=== PATIENT | male | born 1955 ===

== ENCOUNTER 2020-08-29 10:15 | Emergency (ER) | payer BC, SELFPAY ==
[2020-08-29 10:26] VITALS: BP 154/94; PULSE 87; RESP 20; TEMP 36.9; O2SAT 97; BMI 36.3
--- NOTE | 2020-08-29 10:36 | XR_ITS ---
EXAMINATION: XR CHEST CLINICAL INFORMATION: Chest pain, shortness of breath COMPARISON: 05/17/2020 TECHNIQUE: Frontal view of the chest was obtained. FINDINGS: The cardiomediastinal silhouette is within normal limits. The lungs are well expanded. There is no focal consolidation, edema, or effusion is seen. No pneumothorax. No acute osseous abnormality. XR/XR chest 1V IMPRESSION: No evidence of acute cardiopulmonary process.
--- NOTE | 2020-08-29 10:36 | ECG_ITS ---
Test Reason : CHEST DISCOMFORT Blood Pressure : / mmHG Vent. Rate : 088 BPM Atrial Rate : 088 BPM P-R Int : 170 ms QRS Dur : 086 ms QT Int : 360 ms P-R-T Axes : 047 -02 055 degrees QTc Int : 435 ms Normal sinus rhythm Normal ECG When compared with ECG of 17-MAY-2020 17:03, No significant change was found Referred By: Avis Dominguez Electronically Signed By:CHRISTIE WILLETT MD
--- NOTE | 2020-08-29 10:37 | ED.GENADULT ---
HPI - General Adult General Chief complaint: General Medical Stated complaint: BLOOD PRESSURE HIGH,CHEST DISCOMFORT Time Seen by Provider: 08/29/20 10:30 Source: patient Mode of arrival: ambulatory History of Present Illness HPI narrative: 64-year-old male with a past medical history of GERD, HTN, PTSD, seizures presenting to ED complaining mild chest discomfort, puffy/watery eyes, ear ringing, and elevated BP at home x2 days. Reports BP was in the 160s, denies taking hypertensive medications at home. Also reports mild SOB. Denies headache, visual changes/blurry vision, nausea/vomiting, dizziness, headache Onset (ago): day(s) Related Data Home Medications Medication Instructions Recorded Confirmed Aspirin Child 08/29/20 Colace 08/29/20 Florastor 08/29/20 multivitamin 08/29/20 omeprazole 08/29/20 simvastatin tab PO 08/29/20 Allergies Allergy/AdvReac Type Severity Reaction Status Date / Time fentanyl [FENTANYL] Allergy Severe CARDIAC Unverified 07/05/20 18:24 ARREST levofloxacin [From LEVAQUIN] Allergy Severe ITCHING Unverified 07/05/20 18:24 oxycodone [From PERCOCET] Allergy Severe HIVES Unverified 07/05/20 18:24 divalproex sodium Allergy Unknown ANAPHYLAXIS Unverified 07/05/20 18:24 [From DEPAKOTE] fluconazole [From DIFLUCAN] Allergy Unknown UNKNOWN Unverified 07/05/20 18:24 fosphenytoin [FOSPHENYTOIN] Allergy Unknown UNKNOWN Unverified 07/05/20 18:24 hydrocodone Allergy Unknown Uncoded 06/21/20 00:00 narcotics Allergy Unknown Uncoded 06/21/20 00:00 oxycodone Allergy Unknown Uncoded 06/21/20 00:00 percocet Allergy Unknown Uncoded 06/21/20 00:00 Review of Systems Review of Systems: Constitutional: No Weight loss, No Fever, No Chills ENT/Mouth: No Hearing loss, No Ear Pain, Nasal Congestion, No Sinus Pain, No Hoarseness, No sore throat, +Rhinorrhea, No Swallowing Difficulty Eyes: No Eye Pain, No Swelling, No Redness, +puffy/watery eyes, No Vision Changes Cardiovascular: +Chest Pain,+SOB, No Edema, No Palpitations Respiratory: + Cough, No Sputum, No Wheezing Gastrointestinal: No Nausea, No Vomiting, No Diarrhea, No Constipation, No Abdominal pain Musculoskeletal: No joint pain, No Myalgias, No Joint Swelling Skin: No Skin Lesions, No rash Neuro: No Weakness, No Numbness,No Dizziness, No Headache Yes all other systems are reviewed and are negative Neurologic: Denies Sensory deficit (Neuro) [facility] Past Medical History Attestation statement: The following information was validated with the patient. Medical History (Updated 08/29/20 @ 12:19 by SABINO Sethi) Diverticulitis GERD (gastroesophageal reflux disease) Hypertension PTSD (post-traumatic stress disorder) Seizures Social History Social History Smoked in Last 30 Days: No Use of substances other than those prescribed or required for medical reasons: No Advance Directives: No Advance Directives Information Provided: Yes Physical Exam Vital Signs: Vital Signs: Last Vital Signs Temp 98.4 F 08/29/20 10:26 Pulse 74 08/29/20 12:03 Resp 20 08/29/20 12:03 BP 114/74 08/29/20 12:03 Pulse Ox 95 08/29/20 12:03 Body Mass Index 36.3 Const: General: cooperative and healthy appearing Orientation/consciousness: patient oriented x3 Limitations: no limitations HENMT: Head: Yes normal to inspection Ears: hearing grossly normal bilaterally, external ears normal and TM's normal bilaterally General nose exam: Normal external nose present Face and sinus: Yes normal facial exam Mouth: Normal oral and palatal mucosa present and no drooling Throat: Yes posterior oropharynx normal and Yes uvula midline Eyes: General: appearance normal, both eyes and all related structures Periorbital: periorbital findings normal Eyelids: Yes eyelids normal Conjunctivae: conjunctivae normal Sclerae: sclerae normal Corneas: corneas normal Pupils: Equal, round and reactive pupils present EOM: EOMs intact bilaterally Neck: Neck: Yes normal visual inspection and Yes no meningeal signs Resp: Effort & Inspection: normal respiratory effort Auscultation: crackles (Bibasilar) Cardio: Rate: regular rate Heart sounds: S1 normal heart sound present and S2 normal heart sound present GI: Inspection: Yes normal to inspection Palpation (GI): Soft to palpation, nontender, no guarding and not rigid Skin: Rashes: no rashes Wounds: no wounds Neuro: General: patient oriented x3, tone normal, moves all extremities, no meningeal signs, no focal motor deficits and CN's II-XI intact bilaterally Cranial nerves: Yes Equal, round and reactive pupils present Gait exam (Neuro): Normal gait present Motor exam (neuro): 5/5 motor strength present throughout Sensory Exam: No Sensory deficit (Neuro) Extrem: General: Yes normal to inspection Course Course Course Narrative: -labs unremarkable, troponin negative -CXR unremarkable Repeat blood pressure in the ED 114/74 Labs/imaging results discussed with patient including worrisome signs and symptoms and strict return precautions. Patient is to follow-up with PCP. Verbalized understanding feel safe for discharge home Medical Decision Making MDM Narrative Medical decision making narrative: 64-year-old male with a past medical history of GERD, HTN, PTSD, seizures presenting to ED complaining mild chest discomfort, puffy/watery eyes, ear ringing, and elevated BP at home x2 days. On exam BP 154/94, NAD/nontoxic appearing, no focal neuro deficits, lungs with bibasilar crackles, TMs wnl. Concern for viral syndrome/allergies/COVID-19 vs ACS. Low concern for PE, pneumonia, or hypertensive urgency/emergency Plan: EKG, labs, CXR, reassess Lab Data Result diagrams: 08/29/20 11:11 08/29/20 11:11 Labs: Lab Results 08/29/20 08/29/20 08/29/20 Range/Units 11:11 11:11 11:11 WBC 9.5 (4.8-10.8) X10*3/uL RBC 4.81 (4.60-5.80) X10*6/uL Hgb 15.2 (14.0-18.0) g/dl Hct 45.9 (42-52) % MCV 95.4 (80-98) fL MCH 31.6 (27.0-33.0) pg MCHC 33.1 (31.0-36.0) g/dl RDW 13.1 (11.0-16.0) % Plt Count 211 (160-400) X10*3/uL MPV 9.1 L (9.4-12.4) fL Immature Gran % (Auto) 0.4 (0.0-0.4) % Neut % (Auto) 50.8 (45-73) % Lymph % (Auto) 38.3 (20-40) % [place] % (Auto) 7.0 (2-11) % Eos % (Auto) 3.0 (0-4) % Baso % (Auto) 0.5 (0-2) % Lymph # (Auto) 3.6 (1.2-4.9) X10*3/uL [place] # (Auto) 0.7 (0.1-1.2) X10*3/uL Eos # (Auto) 0.3 (0.0-0.4) X10*3/uL Baso # (Auto) 0.1 (0.0-0.2) X10*3/uL Abs Immat Gran (auto) 0.04 H (0.00-0.03) X10*3/uL Absolute Neuts (auto) 4.8 (2.0-8.3) X10*3/uL Absolute Nucleated RBC 0.000 (0.0-0.012) X10*3/uL Nucleated RBC % (auto) 0.0 (0.0-0.2) /100WBC Hold Blue Top SEE NOTE Sodium 140 (135-145) mmol/L Potassium 4.1 (3.3-5.1) mmol/l Chloride 106 (96-108) mmol/L Carbon Dioxide 23 (22-29) mmol/L Anion Gap 15 (12-20) BUN 9 (9-16) mg/dL Creatinine 0.89 (0.5-1.4) mg/dL Estim Creat Clear Calc 95.0 Estimated GFR > 60 Random Glucose 97 (60-115) mg/dL Calcium 8.9 (8.4-10.2) mg/dL Magnesium (1.6-2.6) mg/dL Total Bilirubin (0.0-1.0) mg/dL Direct Bilirubin (0.0-0.5) mg/dL AST (5-37) U/L ALT (0-40) U/L Alkaline Phosphatase (39-117) U/L Troponin I High Sens (<3.5-35.0) ng/L B-Natriuretic Peptide (<100) pg/mL Total Protein (6.5-8.0) g/dL Albumin (3.5-5.0) g/dL 08/29/20 08/29/20 Range/Units 11:11 11:11 WBC (4.8-10.8) X10*3/uL RBC (4.60-5.80) X10*6/uL Hgb (14.0-18.0) g/dl Hct (42-52) % MCV (80-98) fL MCH (27.0-33.0) pg MCHC (31.0-36.0) g/dl RDW (11.0-16.0) % Plt Count (160-400) X10*3/uL MPV (9.4-12.4) fL Immature Gran % (Auto) (0.0-0.4) % Neut % (Auto) (45-73) % Lymph % (Auto) (20-40) % [place] % (Auto) (2-11) % Eos % (Auto) (0-4) % Baso % (Auto) (0-2) % Lymph # (Auto) (1.2-4.9) X10*3/uL [place] # (Auto) (0.1-1.2) X10*3/uL Eos # (Auto) (0.0-0.4) X10*3/uL Baso # (Auto) (0.0-0.2) X10*3/uL Abs Immat Gran (auto) (0.00-0.03) X10*3/uL Absolute Neuts (auto) (2.0-8.3) X10*3/uL Absolute Nucleated RBC (0.0-0.012) X10*3/uL Nucleated RBC % (auto) (0.0-0.2) /100WBC Hold Blue Top Sodium (135-145) mmol/L Potassium (3.3-5.1) mmol/l Chloride (96-108) mmol/L Carbon Dioxide (22-29) mmol/L Anion Gap (12-20) BUN (9-16) mg/dL Creatinine (0.5-1.4) mg/dL Estim Creat Clear Calc Estimated GFR Random Glucose (60-115) mg/dL Calcium (8.4-10.2) mg/dL Magnesium 2.0 (1.6-2.6) mg/dL Total Bilirubin 0.4 (0.0-1.0) mg/dL Direct Bilirubin 0.2 (0.0-0.5) mg/dL AST 27 (5-37) U/L ALT 41 H (0-40) U/L Alkaline Phosphatase 87 (39-117) U/L Troponin I High Sens < 3.5 (<3.5-35.0) ng/L B-Natriuretic Peptide < 10 (<100) pg/mL Total Protein 7.4 (6.5-8.0) g/dL Albumin 4.5 (3.5-5.0) g/dL Discharge Plan Discharge Clinical Impression: Chest pain, Viral syndrome Patient Disposition: Home, Self-Care Prescriptions: No Action Aspirin Child RF: 0 simvastatin 80 mg tablet PO RF: 0 Colace RF: 0 Florastor RF: 0 multivitamin RF: 0 omeprazole RF: 0 Referrals: Adriel Guadarrama, POLICY SPECIALIST [Primary Care Provider] - 2 days
[2020-08-29 11:19] LABS: MANUAL DIFF FLAG NO
[2020-08-29 11:29] LABS: Basophils Absolute Auto 0.1 X10*3/uL (0.0-0.2); Basophils Percent Auto 0.5 % (0-2); Eosinophils Absolute Auto 0.3 X10*3/uL (0.0-0.4); Hematocrit 45.9 % (42-52); Hemoglobin 15.2 g/dl (14.0-18.0); Imm Gran Abs Auto 0.04 X10*3/uL (0.00-0.03); Imm Gran Pct Auto 0.4 % (0.0-0.4); Lymphocytes Absolute Auto 3.6 X10*3/uL (1.2-4.9); Lymphocytes Percent Auto 38.3 % (20-40); Mean Corpuscular HGB Conc 33.1 g/dl (31.0-36.0); Mean Corpuscular Hemoglobin 31.6 pg (27.0-33.0); Mean Corpuscular Volume 95.4 fL (80-98); Mean Platelet Volume 9.1 fL (9.4-12.4); Monocytes Absolute Auto 0.7 X10*3/uL (0.1-1.2); Neutrophils Absolute Auto 4.8 X10*3/uL (2.0-8.3); Neutrophils Percent Auto 50.8 % (45-73); Platelet Count 211 X10*3/uL (160-400); Red Blood Count 4.81 X10*6/uL (4.60-5.80); Red Cell Distribution Width 13.1 % (11.0-16.0); White Blood Count 9.5 X10*3/uL (4.8-10.8)
[2020-08-29 11:41] LABS: Anion Gap 15 (12-20); Blood Urea Nitrogen 9 mg/dL (9-16); Calcium 8.9 mg/dL (8.4-10.2); Carbon Dioxide 23 mmol/L (22-29); Chloride 106 mmol/L (96-108); Estimated Glomerular Filt Rate > 60; Glucose Random 97 mg/dL (60-115); Potassium 4.1 mmol/l (3.3-5.1); Sodium 140 mmol/L (135-145)
[2020-08-29 11:44] LABS: B Type Natriuretic Peptide < 10 pg/mL (<100); Troponin-I High Sensitivity < 3.5 ng/L (<3.5-35.0)
[2020-08-29 11:47] LABS: Alanine Aminotransferase 41 U/L (0-40); Albumin Level 4.5 g/dL (3.5-5.0); Alkaline Phosphatase 87 U/L (39-117); Aspartate Amino Transferase 27 U/L (5-37); Bilirubin Direct 0.2 mg/dL (0.0-0.5); Bilirubin Total 0.4 mg/dL (0.0-1.0); Total Protein 7.4 g/dL (6.5-8.0)
[2020-08-29 12:03] VITALS: BP 114/74; PULSE 74; RESP 20; O2SAT 95
== END 2020-08-29 12:31 | disposition home or self-care (01) ==
PROVIDERS: Physician Assistant; Emergency Provider Emergency Medicine; PCP Nurse Practitioner Family
DX: B34.9 Viral infection, unspecified (principal); R07.9 Chest pain, unspecified; I10 Essential (primary) hypertension; Z79.899 Other long term (current) drug therapy
CPT/HCPCS: 36415; 71045; 80048; 80076; 83735; 83880; 84484; 85025; 93005; 99284

== ENCOUNTER 2021-03-15 17:01 | Emergency (ER) | payer BC, SELFPAY ==
--- NOTE | 2021-03-15 17:05 | PC.NURSE ---
Patient arrived at er with difficulty breathing right side facial swelling, lips numb after eating shrimp and oysters at a [employer] restaurant.
[2021-03-15 17:10] VITALS: BP 153/89; PULSE 114; RESP 26; O2SAT 98; BMI 50.3
[2021-03-15] MEDS: EPINEPHrine 1 MG/ML VIAL 0.3 MG IM (17:15)
[2021-03-15] MEDS: methylPREDNISolone Sod Succ 125 MG/2 ML VIAL IVPUSH (17:28)
[2021-03-15] MEDS: diphenhydrAMINE HCL 50 MG/ML VIAL 25 MG IVPUSH (17:28)
[2021-03-15] MEDS: Famotidine/PF 20 MG/2 ML VIAL IVPUSH (17:28)
--- NOTE | 2021-03-15 17:30 | PC.NURSE ---
Patient breathing much easier, and more relaxed after receiving following epi injection.
[2021-03-15 17:42] VITALS: BP 135/75; PULSE 83; RESP 18; TEMP 37.1; O2SAT 95
--- NOTE | 2021-03-15 17:53 | ED.ALLEREA ---
HPI - Allergic Reaction General Chief complaint: Allergic Reaction Stated complaint: allergic reaction, trouble breathing Time Seen by Provider: 03/15/21 17:13 Source: patient Mode of arrival: ambulatory Limitations: physical limitation (Anaphylaxis) History of Present Illness HPI narrative: 65-year-old male presents with anaphylactic reaction after eating at a [employer] food restaurant. MD complaint: allergic reaction and facial swelling Onset (ago): hour(s) (Within the hour of arrival) Exposure: unknown and food Known history of allergy to: Fentanyl, Levaquin, oxycodone, Depakote, fluconazole Symptoms: facial swelling, difficulty swallowing, difficulty breathing and hoarseness Severity: severe Treatment prior to arrival: none Previous Allergic Reaction History: anaphylaxis Related Data Home Medications Medication Instructions Recorded Confirmed Aspirin Child 08/29/20 Colace 08/29/20 Florastor 08/29/20 multivitamin 08/29/20 omeprazole 08/29/20 simvastatin tab PO 08/29/20 Previous Rx's Medication Instructions Recorded albuterol sulfate 2 puff INHALATION Q4-6H PRN #6.7 g 08/29/20 diphenhydramine HCl [Benadryl] 50 mg PO Q6H 3 Days #24 cap 03/15/21 epinephrine [EpiPen 2-Deacon] 0.3 mg IM Q10M PRN #2 ea 03/15/21 famotidine [Pepcid AC] 20 mg PO BID 3 Days #6 tab 03/15/21 Allergies Allergy/AdvReac Type Severity Reaction Status Date / Time fentanyl [FENTANYL] Allergy Severe CARDIAC Unverified 07/05/20 18:24 ARREST levofloxacin [From LEVAQUIN] Allergy Severe ITCHING Unverified 07/05/20 18:24 oxycodone [From PERCOCET] Allergy Severe HIVES Unverified 07/05/20 18:24 divalproex sodium Allergy Unknown ANAPHYLAXIS Unverified 07/05/20 18:24 [From DEPAKOTE] fluconazole [From DIFLUCAN] Allergy Unknown UNKNOWN Unverified 07/05/20 18:24 fosphenytoin [FOSPHENYTOIN] Allergy Unknown UNKNOWN Unverified 07/05/20 18:24 hydrocodone Allergy Unknown Uncoded 06/21/20 00:00 narcotics Allergy Unknown Uncoded 06/21/20 00:00 oxycodone Allergy Unknown Uncoded 06/21/20 00:00 percocet Allergy Unknown Uncoded 06/21/20 00:00 Review of Systems Review of Systems: Constitutional: No Fever, No Chills ENT/Mouth: Positive tracheal stridor, positive oral swelling, No Hoarseness, positive Swallowing Difficulty Eyes: No Eye Pain, No Swelling, No Redness Cardiovascular: No Chest Pain, positive SOB Respiratory: No Cough, No Sputum, positive Wheezing, No Smoke Exposure, No Dyspnea Gastrointestinal: No Nausea, No Vomiting, No Diarrhea, No abdominal Pain Genitourinary: No Dysuria, No Urinary Frequency, No Hematuria Musculoskeletal: No joint pain, No Myalgias, No Joint Swelling Skin: No Skin Lesions, no rash Neuro: No Weakness, No Numbness, No Headache Psych: No Anxiety/Panic, No Depression Heme/Lymph: No Bruising, No Lymphadenopathy Endocrine: No Polyuria, No Polydipsia Yes all other systems are reviewed and are negative [facility] Past Medical History Attestation statement: The following information was validated with the patient. Source: old records reviewed Medical History Diverticulitis GERD (gastroesophageal reflux disease) Hypertension PTSD (post-traumatic stress disorder) Seizures Social History Social History Alcohol intake: never Patient Tobacco Use Status: Never used Tobacco Substance Use Type: Marijuana Advance Directives: No Advance Directives Information Provided: No Physical Exam Vital Signs: Vital Signs: Last Vital Signs Temp 98.7 F 03/15/21 17:42 Pulse 80 03/15/21 18:37 Resp 16 03/15/21 18:37 BP 128/84 03/15/21 18:37 Pulse Ox 96 03/15/21 18:37 Body Mass Index 50.3 Appearance: Alert. Oriented X3. Severe distress. Eyes: Pupils equal, round and reactive to light. ENT: Facial swelling bilaterally, tongue and uvula midline, able to manage secretions Neck: Swollen bilaterally inspection. Neck supple. CVS: Tachycardic heart rate and rhythm. Pulses normal. Respiratory: Tracheal stridor with inspiratory and expiratory wheezing bilaterally. Tachypneic Abdomen: Soft and nontender. Skin: Skin warm and dry. Normal skin color. Normal skin turgor. Extremities: No lower extremity edema. Neuro: No motor deficit. No sensory deficit. Course Course Course Narrative: Upon initial presentation, patient has tracheal stridor and swelling around the face. IM epi given, unable to obtain IV start, this TUBE PULLER under ultrasound guidance, , and 2 RNs attempted and failed. Benadryl, Pepcid, and Solu-Medrol given IM. 5:53 p.m., patient resting comfortably, heart rate 83, even unlabored respirations, no tracheal stridor noted. Review of systems completed at this time. 6:15 p.m. patient resting comfortably, heart rate 81, even unlabored respirations, no tracheal stridor noted. 7:53 p.m. patient is maintaining O2 sats at 99% room air, respiration rate has been steady in the 16-18 range, heart rate in the 80s, blood pressure 128/84. Patient has been stable for several hours, will discharge home with Benadryl and Pepcid. Will give a script for EpiPen. Patient does understand that if symptoms were to return that he should return back to the emergency department. Patient verbalized understanding of and agrees to plan of care discharge home. MDM - Allergic Reaction Differential Diagnosis Differential diagnosis: Likely anaphylaxis and allergic reaction Medical Records Attestation: I reviewed the patient's medical records. Critical Care Time Critical Care Time Critical Care Time: Yes Total Critical Care Time: 45 Attestation: I have personally provided critical care time exclusive of time spent on separately billable procedures. Time includes review of laboratory data, radiology results, discussion with consultants, and monitoring for potential decompensation. Interventions were performed as documented. Discharge Plan Discharge Clinical Impression: Anaphylaxis Qualifiers: Encounter type: initial encounter Qualified Code(s): T78.2XXA - Anaphylactic shock, unspecified, initial encounter Patient Disposition: Home, Self-Care Instructions: Food Allergy (ED), Anaphylaxis (ED) Additional Instructions: You were evaluated for an anaphylactic reaction to a food that you were exposed to. Please present to your primary care physician for allergy testing. Please take Benadryl 50 mg every 6 hours for the next 3 days. Please take Pepcid 20 mg every 12 hours for the next 3 days. If symptoms persist while taking these medications please come back to the emergency department immediately. We prescribed to an EpiPen. Please use this med as directed Thank you for choosing this emergency department for evaluation. Please follow-up with primary care physician as needed. Return to the emergency department for any new, concerning, or worsening symptoms. Prescriptions: New diphenhydramine HCl [Benadryl] 25 mg capsule 50 mg PO Q6H 3 Days Qty: 24 RF: 0 famotidine [Pepcid AC] 20 mg tablet 20 mg PO BID 3 Days Qty: 6 RF: 0 epinephrine [EpiPen 2-Deacon] 0.3 mg/0.3 mL auto-injector 0.3 mg IM Q10M PRN (Reason: anaphylaxis) Qty: 2 RF: 0 No Action Aspirin Child RF: 0 simvastatin 80 mg tablet PO RF: 0 Colace RF: 0 Florastor RF: 0 multivitamin RF: 0 omeprazole RF: 0 albuterol sulfate 90 mcg/actuation HFA aerosol inhaler 2 puff inhalation Q4-6H PRN (Reason: shortness of breath or wheezing) Qty: 6.7 RF: 0 Interventions: ED Discharge Assessment Last Done: 03/15/21 20:32 Discharge Date/Time: 03/15/21 20:34
[2021-03-15 18:05] VITALS: BP 126/81; PULSE 84; RESP 18; O2SAT 95
--- NOTE | 2021-03-15 18:26 | PC.NURSE ---
Patient is resting quietly in bed. Respirations are even and nonlabored. right side facial swelling is improving.
[2021-03-15 18:37] VITALS: BP 128/84; PULSE 80; RESP 16; O2SAT 96
== END 2021-03-15 20:34 | disposition home or self-care (01) ==
PROVIDERS: Emergency Provider Internal Medicine; PCP Nurse Practitioner Family
DX: T78.00XA Anaphylactic reaction due to unspecified food, initial encounter (principal); R00.0 Tachycardia, unspecified; I10 Essential (primary) hypertension; F12.90 Cannabis use, unspecified, uncomplicated
CPT/HCPCS: 96372; 96374; 96375; 99284; 99291; J0171; J1200; J2930

== ENCOUNTER 2021-12-22 17:52 | Emergency (ER) | payer OTHER, BC, SELFPAY ==
[2021-12-22 19:24] VITALS: BP 128/91; PULSE 101; RESP 18; TEMP 37; O2SAT 94
[2021-12-22 19:35] VITALS: BMI 20.9
--- NOTE | 2021-12-22 20:26 | ED_ITS ---
HPI - Dental/Oral General Chief complaint: Dental/Oral Stated complaint: facial swelling Time Seen by Provider: 12/22/21 18:32 Source: patient and EMS Mode of arrival: EMS Limitations: no limitations History of Present Illness HPI Narrative: 66-year-old male with a history of parotitis here with reports of sudden left facial swelling and pain that began when he was starting to eat his salty beef soup. Patient tells me his history of parotitis and states this feels similar. He denies any dental pain, fevers, chills, ear pain, sore throat, cough. Patient tells me that he had a previous positive response to clindamycin Related Data Home Medications Medication Instructions Recorded Confirmed Aspirin Child 08/29/20 Colace 08/29/20 Florastor 08/29/20 multivitamin 08/29/20 omeprazole 08/29/20 simvastatin 80 mg tablet tab PO 08/29/20 Previous Rx's Medication Instructions Recorded albuterol sulfate 90 mcg/actuation 2 puff INHALATION Q4-6H PRN #6.7 g 08/29/20 aerosol inhaler diphenhydramine HCl 25 mg capsule 50 mg PO Q6H 3 Days #24 cap 03/15/21 (Benadryl) epinephrine 0.3 mg/0.3 mL 0.3 mg (0.3 mL) IM Q10M PRN #2 ea 03/15/21 injection, auto-injector (EpiPen 2-Deacon) famotidine 20 mg tablet (Pepcid AC) 20 mg PO BID 3 Days #6 tab 03/15/21 clindamycin HCl 300 mg capsule 300 mg PO QID 10 Days #40 cap 12/22/21 Allergies Allergy/AdvReac Type Severity Reaction Status Date / Time fentanyl [FENTANYL] Allergy Severe CARDIAC Verified 12/22/21 19:34 ARREST levofloxacin [From LEVAQUIN] Allergy Severe ITCHING Verified 12/22/21 19:34 oxycodone [From PERCOCET] Allergy Severe HIVES Verified 12/22/21 19:34 divalproex sodium Allergy Unknown ANAPHYLAXIS Verified 12/22/21 19:34 [From DEPAKOTE] fluconazole [From DIFLUCAN] Allergy Unknown UNKNOWN Verified 12/22/21 19:34 fosphenytoin [FOSPHENYTOIN] Allergy Unknown UNKNOWN Verified 12/22/21 19:34 hydrocodone Allergy Unknown Unknown Uncoded 12/22/21 19:34 narcotics Allergy Unknown Unknown Uncoded 12/22/21 19:34 oxycodone Allergy Unknown Unknown Uncoded 12/22/21 19:34 percocet Allergy Unknown Unknown Uncoded 12/22/21 19:34 Review of Systems Review of Systems: Yes all other systems are reviewed and are negative Constitutional: Constitutional: Reports no additional constitutional complaints, Denies body ache(s), Denies chills, Denies fever(s), Denies headache(s) and Denies weakness Eyes: Eyes: Reports no additional eye complaints and Denies change in vision ENT: Reports system reviewed and no additional complaints, except as documented, Denies dental pain, Denies dizziness, Denies headache(s), Denies nasal congestion, Denies nasal discharge, Denies neck pain and Denies sore throat Comments: +facial swelling Cardiovascular: Cardiovascular: Reports no additional cardiovascular complaints, Denies chest pain, Denies leg edema and Denies dyspnea Respiratory: Respiratory: Reports no additional respiratory complaints, Denies cough and Denies dyspnea Gastrointestinal: Gastrointestinal: Reports no additional gastrointestinal c omplaints, Denies abdominal pain, Denies diarrhea, Denies nausea and Denies vomiting Genitourinary: Genitourinary: Denies urinary incontinence Musculoskeletal: Musculoskeletal: Reports no additional musculoskeletal complaints, Denies back pain, Denies arthralgias, Denies joint swelling, Denies neck pain, Denies numbness and Denies tingling Integumentary/Breasts: Skin/Breast: Reports system reviewed and no additional complaints, except as docu and Denies rash Neurologic: Reports system reviewed and no additional complaints, except as documented, Denies Abnormal speech present, Denies dizziness, Denies headache(s), Denies numbness, Denies tingling and Denies weakness PMFSH Past Medical History Attestation statement: The following information was validated with the patient. Source: old records reviewed Medical History Diverticulitis GERD (gastroesophageal reflux disease) Hypertension PTSD (post-traumatic stress disorder) Seizures Social History Social History Alcohol intake: never Patient Tobacco Use Status: Never used Tobacco Substance Use Type: Marijuana Advance Directives: No Advance Directives Information Provided: No Physical Exam Vital Signs: Vital Signs: Last Vital Signs Temp 98.6 F 12/22/21 19:24 Pulse 101 H 12/22/21 19:24 Resp 18 12/22/21 19:24 BP 128/91 H 12/22/21 19:24 Pulse Ox 94 12/22/21 19:24 BMI result Body Mass Index 20.9 Const: General: cooperative, healthy appearing, comfortable and no acute distress Orientation/consciousness: patient oriented x3 Limitations: no limitations HENMT: Other: There is swelling over the left pre-auricular area over the parotid gland. There is tenderness to palpation. There is no trismus. Head: Yes normal to inspection Ears: hearing grossly normal bilaterally and TM's normal bilaterally General nose exam: Normal external nose present Face and sinus: Yes normal facial exam Mouth: Normal oral and palatal mucosa present Throat: Yes posterior oropharynx normal, Yes tonsils normal and Yes uvula midline Eyes: General: appearance normal, both eyes and all related structures Pupils: Equal, round and reactive pupils present Neck: Neck: Yes normal visual inspection, Yes full ROM, Yes no lymphadenopathy and Yes no meningeal signs Chest: Chest palpation & inspection: normal inspection of the chest Resp: Effort & Inspection: normal respiratory effort Auscultation: clear to auscultation bilaterally Cardio: Rate: regular rate Rhythm: regular rhythm Peripheral pulses: Peripheral pulses 2+ throughout GI: Inspection: Yes normal to inspection Palpation (GI): Soft to palpation and nontender Auscultation: normal bowel sounds Back/Spine/Pelvis: Thoracic/Lumbar Spine: thoracic and lumbar spine normal to inspection Skin: General skin exam: no rashes or lesions noted Neuro: General: patient oriented x3, no meningeal signs, no focal motor deficits and normal sensation to monofilament Cranial nerves: Yes Equal, round and reactive pupils present Cognition (Neuro): normal cognition Speech: No Abnormal speech present Gait exam (Neuro): Normal gait present Motor exam (neuro): 5/5 motor strength present throughout Extrem: General: Yes normal to inspection Course Course Course Narrative: 66-year-old male with a history of parotitis here with sudden onset of left facial swelling that began just prior to the patient eating some soup. On arrival the exam is consistent with parotitis. There is no difficulty breathing, stridor, angioedema appreciated. There is no trismus. Patient had previous positive response to clindamycin. Will treat with course of clindamycin for 10 days. Reviewed worrisome signs and symptoms of when to return to the emergency department. Comfortable discharge home. MDM - Dental/Oral Medical Records Attestation: I reviewed the patient's medical records. Lab Data Attestation: I reviewed the patient's lab results. Discharge Plan Discharge Clinical Impression: Acute parotitis Patient Disposition: Home, Self-Care Instructions: Sialoadenitis (ED) Additional Instructions: Sour candies Prescriptions: New clindamycin HCl 300 mg capsule 300 mg PO QID 10 Days Qty: 40 0RF No Action Aspirin Child 0RF simvastatin 80 mg tablet PO 0RF Colace 0RF Florastor 0RF multivitamin 0RF omeprazole 0RF albuterol sulfate 90 mcg/actuation HFA aerosol inhaler 2 puff inhalation Q4-6H PRN (Reason: shortness of breath or wheezing) Qty: 6.7 0RF diphenhydramine HCl [Benadryl] 25 mg capsule 50 mg PO Q6H 3 Days Qty: 24 0RF Rx Instructions: Anaphylaxis famotidine [Pepcid AC] 20 mg tablet 20 mg PO BID 3 Days Qty: 6 0RF Rx Instructions: Anaphylaxis epinephrine [EpiPen 2-Deacon] 0.3 mg/0.3 mL auto-injector 0.3 mg IM Q10M PRN (Reason: anaphylaxis) Qty: 2 0RF Rx Instructions: for 2 doses Referrals: Physician,Unknown J [Primary Care Provider] - 2 days
[2021-12-22] MEDS: Clindamycin HCL 150 MG CAPSULE 450 MG PO (20:44)
== END 2021-12-22 20:49 | disposition home or self-care (01) ==
PROVIDERS: Emergency Provider Internal Medicine
DX: K11.21 Acute sialoadenitis (principal); R22.1 Localized swelling, mass and lump, neck; Z79.899 Other long term (current) drug therapy
CPT/HCPCS: 99282

== ENCOUNTER 2022-08-02 11:27 | Emergency (ER) | payer OTHER, SELFPAY ==
[2022-08-02 11:44] VITALS: BP 124/90; PULSE 82; RESP 18; TEMP 36.4; O2SAT 96; BMI 33.9
[2022-08-02 12:11] LABS: Strep A Nucleic Acid Negative (Negative)
--- NOTE | 2022-08-02 12:14 | ED_ITS ---
HPI - URI/Sore Throat General Chief Complaint: Upper Respiratory Symptoms Stated Complaint: sore throat Time Seen by Provider: 08/02/22 12:01 Source: patient Mode of arrival: ambulatory Limitations: no limitations History of Present Illness HPI Narrative: 66 yo male with history of PTSD, seizure disorder presents with 2 days of sore throat. Patient tells me he received a phone call that his sister had and he started screaming very ludly. Since then he has had sore throat. Doing salt water gargles, lozenges with continued sore throat. No associated fever, cough, difficulty swallowing or breathing. No unintentional weight loss. Former smoker but many years ago per patient Related Data Home Medications Medication Instructions Recorded Confirmed Aspirin Child 08/29/20 Colace 08/29/20 Florastor 08/29/20 multivitamin 08/29/20 omeprazole 08/29/20 simvastatin 80 mg tablet tab PO 08/29/20 Previous Rx's Medication Instructions Recorded albuterol sulfate 90 mcg/actuation 2 puff inhalation Q4-6H PRN 08/29/20 aerosol inhaler shortness of breath or wheezing #6.7 grams diphenhydramine HCl 25 mg capsule 50 mg PO Q6H 3 days #24 caps 03/15/21 (Benadryl) epinephrine 0.3 mg/0.3 mL 0.3 mg (0.3 mL) IM Q10M PRN 03/15/21 injection, auto-injector (EpiPen anaphylaxis #2 ea 2-Deacon) famotidine 20 mg tablet (Pepcid AC) 20 mg PO BID 3 days #6 tabs 03/15/21 clindamycin HCl 300 mg capsule 300 mg PO QID 10 days #40 caps 12/22/21 Allergies Allergy/AdvReac Type Severity Reaction Status Date / Time fentanyl [FENTANYL] Allergy Severe CARDIAC Verified 12/22/21 19:34 ARREST levofloxacin [From LEVAQUIN] Allergy Severe ITCHING Verified 12/22/21 19:34 oxycodone [From PERCOCET] Allergy Severe HIVES Verified 12/22/21 19:34 divalproex sodium Allergy Unknown ANAPHYLAXIS Verified 12/22/21 19:34 [From DEPAKOTE] fluconazole [From DIFLUCAN] Allergy Unknown UNKNOWN Verified 12/22/21 19:34 fosphenytoin [FOSPHENYTOIN] Allergy Unknown UNKNOWN Verified 12/22/21 19:34 hydrocodone Allergy Unknown Unknown Uncoded 12/22/21 19:34 narcotics Allergy Unknown Unknown Uncoded 12/22/21 19:34 oxycodone Allergy Unknown Unknown Uncoded 12/22/21 19:34 percocet Allergy Unknown Unknown Uncoded 12/22/21 19:34 Review of Systems Review of Systems: Yes all other systems are reviewed and are negative Constitutional: Constitutional: Reports no additional constitutional complaints, Denies body ache(s), Denies chills, Denies fever(s), Denies headache(s) and Denies weakness Eyes: Eyes: Reports no additional eye complaints and Denies change in vision ENT: Reports system reviewed and no additional complaints, except as documented, Denies dizziness, Denies headache(s), Denies nasal congestion, Denies nasal discharge, Denies neck pain and Reports sore throat Cardiovascular: Cardiovascular: Reports no additional cardiovascular complaints, Denies chest pain, Denies leg edema and Denies dyspnea Respiratory: Respiratory: Reports no additional respiratory complaints, Denies cough and Denies dyspnea Gastrointestinal: Gastrointestinal: Reports no additional gastrointestinal complaints, Denies abdominal pain, Denies diarrhea, Denies nausea and Denies vomiting Genitourinary: Genitourinary: Denies urinary incontinence Musculoskeletal: Musculoskeletal: Reports no additional musculoskeletal complaints, Denies back pain, Denies arthralgias, Denies joint swelling, Denies neck pain, Denies numbness and Denies tingling Integumentary/Breasts: Skin/Breast: Reports system reviewed and no additional complaints, except as docu and Denies rash Neurologic: Reports system reviewed and no additional complaints, except as documented, Denies Abnormal speech present, Denies dizziness, Denies headache(s), Denies numbness, Denies tingling and Denies weakness PMFSH Past Medical History Attestation statement: The following information was validated with the patient. Source: old records reviewed and nursing notes reviewed Medical History Diverticulitis GERD (gastroesophageal reflux disease) Hypertension PTSD (post-traumatic stress disorder) Seizures Social History Social History Alcohol intake: never Patient Tobacco Use Status: Never used Tobacco Substance Use Type: Marijuana Advance Directives: No Advance Directives Information Provided: No Physical Exam Vital Signs: Vital Signs: Last Vital Signs Temp 97.5 F 08/02/22 11:44 Pulse 82 08/02/22 11:44 Resp 18 08/02/22 11:44 BP 124/90 H 08/02/22 11:44 Pulse Ox 96 08/02/22 11:44 O2 Del Method 08/02/22 11:44 BMI result Body Mass Index 33.9 Const: General: cooperative, healthy appearing, comfortable and no acute distress Orientation/consciousness: patient oriented x3 Limitations: no limitations HEENT: Head: Yes normal to inspection Ears: hearing grossly normal bilaterally and TM's normal bilaterally General nose exam: Normal external nose present Face and sinus: Yes normal facial exam Mouth: Normal oral and palatal mucosa present Throat: Yes posterior oropharynx normal, Yes tonsils normal and Yes uvula midline Eyes: General: appearance normal, both eyes and all related structures Pupils: Equal, round and reactive pupils present Neck: Neck: Yes normal visual inspection, Yes full ROM and Yes no lymphadenopathy Chest: Chest palpation & inspection: normal inspection of the chest Resp: Effort & Inspection: normal respiratory effort Auscultation: clear to auscultation bilaterally Cardio: Rate: regular rate Rhythm: regular rhythm Peripheral pulses: Peripheral pulses 2+ throughout GI: Inspection: Yes normal to inspection Palpation (GI): Soft to palpation and nontender Auscultation: normal bowel sounds Back/Spine/Pelvis: Thoracic/Lumbar Spine: thoracic and lumbar spine normal to inspection Skin: General skin exam: no rashes or lesions noted Neuro: General: patient oriented x3, no focal motor deficits and normal sensation to monofilament Cranial nerves: Yes Equal, round and reactive pupils present Cognition (Neuro): normal cognition Speech: No Abnormal speech present Gait exam (Neuro): Normal gait present Motor exam (neuro): 5/5 motor strength present throughout Extrem: General: Yes normal to inspection Course Course Course Narrative: Testing for flu, COVID, strep are negative. Exam is not consistent with strep pharyngitis. Likely laryngitis. Reviewed supportive care at home. Reviewed worrisome signs and symptoms of when to return to the emergency room. Comfortable discharge home. MDM - URI/Sore Throat MDM Narrative Medical decision making narrative: 66-year-old male here with 2 days of sore throat after screaming very loudly. Exam is normal. Will send testing for strep and COVID. Likely laryngitis Medical Records Attestation: I reviewed the patient's medical records. Lab Data Attestation: I reviewed the patient's lab results. Labs: Lab Results 08/02/22 08/02/22 08/02/22 Range/Units 11:48 11:48 11:48 COVID-19 ([facility]ED[facility]) Negative (Negative) COVID-19 Clin Com See Note Influenza Type A ([facility]) Negative (Negative) Influenza Type B ([facility]) Negative (Negative) Influenza A & B Note See Note S. pyogenes GrpA [facility] Negative (Negative) Discharge Plan Discharge Clinical Impression: Laryngitis Patient Disposition: Home, Self-Care Instructions: Laryngitis (ED) Additional Instructions: Testing for flu, COVID and strep are negative Continue saltwater gargles Try cepacol lozenges Prescriptions: No Action Aspirin Child simvastatin 80 mg tablet PO Colace Florastor multivitamin omeprazole albuterol sulfate 90 mcg/actuation HFA aerosol inhaler 2 puff inhalation Q4-6H PRN (Reason: shortness of breath or wheezing) Qty: 6.7 0RF diphenhydramine HCl [Benadryl] 25 mg capsule 50 mg PO Q6H 3 Days Qty: 24 0RF Rx Instructions: Anaphylaxis famotidine [Pepcid AC] 20 mg tablet 20 mg PO BID 3 Days Qty: 6 0RF Rx Instructions: Anaphylaxis epinephrine [EpiPen 2-Deacon] 0.3 mg/0.3 mL auto-injector 0.3 mg IM Q10M PRN (Reason: anaphylaxis) Qty: 2 0RF Rx Instructions: for 2 doses clindamycin HCl 300 mg capsule 300 mg PO QID 10 Days Qty: 40 0RF Referrals: Mireya Camarena, [employer] [Primary Care Provider] - 5 days (as needed) Interventions: ED Discharge Assessment Last Done: 08/02/22 12:32 Discharge Date/Time: 08/02/22 12:33
[2022-08-02 12:20] LABS: COVID-19 Test Negative (Negative); IDNOW Serial# 16C4AD1C; Influenza A Negative (Negative); Influenza B2 Negative (Negative)
== END 2022-08-02 12:33 | disposition home or self-care (01) ==
PROVIDERS: Emergency Provider Emergency Medicine; PCP Nurse Practitioner Family
DX: J04.0 Acute laryngitis (principal); Z20.822 Contact with and (suspected) exposure to COVID-19; Z72.89 Other problems related to lifestyle; Z63.4 Disappearance and death of family member
CPT/HCPCS: 87502; 87635; 87651; 99282; 99283

== ENCOUNTER 2023-07-05 11:39 | Emergency (ER) | payer OTHER, SELFPAY ==
--- NOTE | ~2023-07-05 | XR_ITS ---
EXAMINATION: XR CHEST CLINICAL INFORMATION: Suspected COVID pneumonia. COMPARISON: Chest done on 08/29/2020. TECHNIQUE: Frontal view of the chest was obtained. FINDINGS: No significant abnormality is noted involving the heart, lungs, mediastinum, bony thorax or soft tissues. XR/XR chest 1V IMPRESSION: No radiographic evidence of pneumonia. No significant change.
[2023-07-05 12:46] VITALS: BP 157/99; PULSE 115; RESP 18; TEMP 36.8; O2SAT 98; BMI 33.9
--- NOTE | 2023-07-05 12:51 | ED.GENADULT ---
HPI - General Adult General Chief complaint: General Medical Stated complaint: Covid + / Difficult breathing Time Seen by Provider: 07/05/23 13:08 Source: patient Mode of arrival: ambulatory History of Present Illness HPI narrative: 67-year-old male who presents with being COVID positive which was identified on Thursday and now presents with some mild shortness of breath, states he has an inhaler at home that he has not been using and previously had been having some diarrhea and chills as well, Related Data Home Medications Medication Instructions Recorded Confirmed Aspirin Child 08/29/20 Colace 08/29/20 Florastor 08/29/20 multivitamin 08/29/20 omeprazole 08/29/20 simvastatin 80 mg tablet tab PO 08/29/20 Previous Rx's Medication Instructions Recorded albuterol sulfate 90 mcg/actuation 2 puff inhalation Q4-6H PRN 08/29/20 aerosol inhaler shortness of breath or wheezing #6.7 grams diphenhydramine HCl 25 mg capsule 50 mg (2 x 25 mg) PO Q6H 3 days 03/15/21 (Benadryl) #24 caps epinephrine 0.3 mg/0.3 mL 0.3 mg (0.3 mL) IM Q10M PRN 03/15/21 injection, auto-injector (EpiPen anaphylaxis #2 ea 2-Deacon) famotidine 20 mg tablet (Pepcid AC) 20 mg PO BID 3 days #6 tabs 03/15/21 clindamycin HCl 300 mg capsule 300 mg PO QID 10 days #40 caps 12/22/21 Allergies Allergy/AdvReac Type Severity Reaction Status Date / Time fentanyl [FENTANYL] Allergy Severe CARDIAC Verified 12/22/21 19:34 ARREST levofloxacin [From LEVAQUIN] Allergy Severe ITCHING Verified 12/22/21 19:34 oxycodone [From PERCOCET] Allergy Severe HIVES Verified 12/22/21 19:34 divalproex sodium Allergy Unknown ANAPHYLAXIS Verified 12/22/21 19:34 [From DEPAKOTE] fluconazole [From DIFLUCAN] Allergy Unknown UNKNOWN Verified 12/22/21 19:34 fosphenytoin [FOSPHENYTOIN] Allergy Unknown UNKNOWN Verified 12/22/21 19:34 hydrocodone Allergy Unknown Unknown Uncoded 12/22/21 19:34 narcotics Allergy Unknown Unknown Uncoded 12/22/21 19:34 oxycodone Allergy Unknown Unknown Uncoded 12/22/21 19:34 percocet Allergy Unknown Unknown Uncoded 12/22/21 19:34 Review of Systems Review of Systems: Pertinent positives and negatives as stated in [facility] Past Medical History Source: nursing notes reviewed Medical History GERD (gastroesophageal reflux disease) Diverticulitis PTSD (post-traumatic stress disorder) Seizures Hypertension Social History Social History Alcohol intake: never Patient Tobacco Use Status: Never used Tobacco Substance Use Type: Marijuana Advance Directives: No Advance Directives Information Provided: Yes Physical Exam ED Vital Signs: Vital Signs - 24 hr 07/05/23 12:46 07/05/23 13:30 07/05/23 14:54 Temperature 98.2 F 98.4 F 98.0 F Pulse Rate 115 H 93 87 Respiratory Rate 18 17 16 Blood Pressure 157/99 H 145/90 H 142/90 H Pulse Oximetry 98 97 94 Oxygen Delivery Method Room Air Room Air Room Air BMI result Body Mass Index 33.9 VITAL SIGNS: Reviewed. GENERAL: Well developed, well nourished, in no acute distress. HEAD: Normocephalic/atraumatic EYES: PERRLA, EOMI EARS: Ext canals without abnormality, TMs non-bulging and non-erythematous NOSE: Nares patent bilateral OROPHARYNX: no oral lesions noted, posterior pharynx clear and non-erythematous without noted tonsillar enlargement/erythema/exudates NECK: Supple, no adenopathy LUNGS: Normal breath sounds. No adventitious sounds or accessory muscle use. SpO2<97> CARDIOVASCULAR: Regular rate and rhythm without noted murmurs, no JVD or lower extremity edema. ABDOMEN: Soft, non-tender, non-distended with bowel sounds. MUSCULOSKELETAL: No tenderness, deformities, or effusions noted on gross inspection. EXTREMITIES: No cyanosis, clubbing or edema. SKIN: Inspection of the skin reveals no rashes NEUROLOGIC: Alert and oriented x 4. Strength and sensation to light touch were grossly intact x 4. Course Course Course Narrative: RmE: 67 yold presents to the ED SOB and coughing. patient tested positive for CVOid this morning. patient VItal signs stable. Patietn not in distress. Chest xray ordered. Medications Administered Discontinued Medications Generic Name Dose Route Start Last Admin Trade Name Sweta PRN Reason Stop Dose Admin Acetaminophen 975 mg 07/05/23 13:10 07/05/23 13:29 Acetaminophen 325 Mg Tablet PO 07/05/23 13:11 975 mg ONCE ONE Administration Medical Decision Making Medical Decision Making [facility] Narrative: 67-year-old male with history and clinical presentation consistent with COVID-19 infection, he is noted to be oxygenating well on room air without tachypnea but noted to have tachycardia in suspect that patient has underlying elevated temperature. Patient received Tylenol, will repeat COVID-19 and influenza as well as a chest x-ray. Patient has no abdominal complaints and not complaining of nausea or vomiting, therefore I do not suspect any febrile state secondary to complications associated with renal colic for which he was seen at [facility] this last Thursday. I reviewed all investigations and influenza is negative but COVID-19 is positive as expected, awaiting chest x-ray and will proceed with urinalysis to ensure no urinary tract infection as a Co-contributor. Chest x-ray negative for infiltrate and otherwise my interpretation is in agreement with radiology's impression. Urinalysis negative for UTI. Patient is otherwise discharged home with instructions to continue with Tylenol ibuprofen for temperatures greater than 100.4, he is outside the window for COVID-19 treatment. Was also instructed follow-up with his primary care doctor on Thursday morning. Differential Diagnosis Differential Diagnoses: The differential diagnosis associated with the presentation includes Please see the discussion above Admission/Observation Consideration of admission/observation: Escalation of care including admission/observation considered Please see the discussion above Lab Data [facility] Lab Attestation statement: I reviewed the patient's lab results. Please see the discussion above Labs: Lab Results 07/05/23 07/05/23 07/05/23 Range/Units 13:04 13:48 14:46 POC Glucose 135 H (60-115) mg/dL Urine Color Dark Yellow Urine Appearance Clear Urine pH 5.5 (5.0-9.0) Ur Specific [place] >= 1.030 H (1.005-1.025) Urine Protein 30 (1+) H (Neg-Trace) mg/dL Urine Glucose (UA) Negative (Negative) mg/dL Urine Ketones Negative (Negative) mg/dL Urine Blood Moderate (2+) H (Negative) Urine Nitrite Negative (Negative) Ur Leukocyte Esterase Negative (Negative) Urine RBC 11-20 H (0-2) /HPF Urine WBC 0-5 (0-5) /HPF Ur Squamous Epith Cells 0-2 (0-2) /HPF Urine Bacteria None Seen (None Seen) Hyaline Casts 6-10 (0-2) /LPF COVID-19 (FRIEDA) Positive A (Negative) COVID-19 Clin Com See Note Influenza Type A (CHARLES) Negative (Negative) Influenza Type B (CHARLES) Negative (Negative) Influenza A & B Note See Note Radiology Impression Discussion of test interpretation with radiology: I have reviewed the radiologist's reading. Radiologist Impression: Please see the discussion above External Record Review External record reviewed: Outpatient record, Prior outpatient labs and Prior outpatient radiology Chronic Conditions Patient?s care impacted by: Diabetes and Hypertension Critical Care Time Critical Care Time Critical Care Time: Yes Total Critical Care Time: 30 Attestation: I personally attest to this time spent taking care of the patient. Discharge Plan Discharge Clinical Impression: Viral syndrome, Lab test positive for detection of COVID-19 virus Patient Disposition: Home, Self-Care Instructions: Viral Syndrome (ED), COVID-19 (Coronavirus Disease 2019) (ED) Additional Instructions: 1. Resume all home medications as prescribed. 2. You have approximately 2 more days that you will need to isolate due to being COVID-19 positive. At this time, unfortunately, you outside the window of COVID-19 treatment. 3. Please follow-up with your primary care doctor on Thursday morning via telehealth appointment Return to the ER for any worsening symptoms. Prescriptions: No Action Aspirin Child simvastatin 80 mg tablet PO Colace Florastor multivitamin omeprazole albuterol sulfate 90 mcg/actuation HFA aerosol inhaler 2 puff inhalation Q4-6H PRN (Reason: shortness of breath or wheezing) Qty: 6.7 0RF diphenhydramine HCl [Benadryl] 25 mg capsule 50 mg PO Q6H 3 Days Qty: 24 0RF Rx Instructions: Anaphylaxis famotidine [Pepcid AC] 20 mg tablet 20 mg PO BID 3 Days Qty: 6 0RF Rx Instructions: Anaphylaxis epinephrine [EpiPen 2-Deacon] 0.3 mg/0.3 mL auto-injector 0.3 mg IM Q10M PRN (Reason: anaphylaxis) Qty: 2 0RF Rx Instructions: for 2 doses clindamycin HCl 300 mg capsule 300 mg PO QID 10 Days Qty: 40 0RF Referrals: Bere Rios [employer] [Primary Care Provider] - Interventions: ED Discharge Assessment Last Done: 07/05/23 15:39 Discharge Date/Time: 07/05/23 15:39
[2023-07-05 13:09] LABS: Glucose, Whole Blood 135 mg/dL (60-115)
--- NOTE | 2023-07-05 13:09 | PC.NURSE ---
T/W CALLED TO XR AFTER PT HAD A SYNCOPAL EPISODE ON THE WAY TO RADIOLOGY. EYES FLUTTERING, THOUGH RESPONDING TO VERBAL COMMANDS, OPENING HIS EYES UPON REQUEST. LYING IN STRETCHER, INITIALLY UNABLE TO ANSWER QUESTIONS APPROPRIATELY. XR TECHS DENIED HEAD STRIKE. PT EVENTUALLY STATED HE BECAME DIZZY PRIOR TO SYNCOPE, HX DIABETES, POCT GLUCOSE WNL. RECENT COVID +, STATES RECENT N/V/D. PT MOVED TO ROOM IN MAIN ED.
[2023-07-05] MEDS: Acetaminophen 325 MG TABLET 975 MG PO (13:29)
[2023-07-05 13:30] VITALS: BP 145/90; PULSE 93; RESP 17; TEMP 36.9; O2SAT 97
[2023-07-05 14:11] LABS: COVID-19 Test Positive (Negative); IDNOW Serial# 6674DD1D
[2023-07-05 14:20] LABS: IDNOW Serial# 55D5AD1C
[2023-07-05 14:21] LABS: Influenza A Negative (Negative); Influenza B2 Negative (Negative)
[2023-07-05 14:54] VITALS: BP 142/90; PULSE 87; RESP 16; TEMP 36.7; O2SAT 94
[2023-07-05 14:58] LABS: Appearance Urine Clear; Color Urine Dark Yellow; Glucose Urine UA Negative (Negative); Leukocyte Esterase Urine Negative (Negative); Nitrite Urine Negative (Negative); PH 5.5 (5.0-9.0); Specific Gravity - Urine >= 1.030 (1.005-1.025); UMIC TRIGGER UACC YES; Urine Blood Moderate (2+) (Negative); Urine Ketones Negative (Negative); Urine Protein 30 (1+) mg/dL (Neg-Trace)
[2023-07-05 15:09] LABS: Bacteria Urine None Seen (None Seen); Squamous Epithelial Cell Urine 0-2 /HPF (0-2); WBC Urine 0-5 /HPF (0-5)
== END 2023-07-05 15:39 | disposition home or self-care (01) ==
PROVIDERS: Emergency Provider Student in an Organized Health Care Education/Training Program; PCP Nurse Practitioner Family
DX: U07.1 COVID-19 (principal); R06.02 Shortness of breath; Z79.899 Other long term (current) drug therapy
CPT/HCPCS: 71045; 81001; 82947; 87502; 87635; 99284

== ENCOUNTER 2023-08-11 07:55 | Emergency (ER) | payer OTHER, SELFPAY ==
--- NOTE | ~2023-08-11 | CT_ITS ---
EXAMINATION: CT ABDOMEN AND PELVIS WITHOUT CONTRAST CLINICAL INFORMATION: Hepatic COMPARISON: CT abdomen and pelvis 05/17/2020. TECHNIQUE: Multidetector volumetric imaging was performed from the superior aspect of the liver through the pubic symphysis. Sagittal and coronal reformatted images were obtained on the technologist's workstation. This CT examination was performed using dose optimization techniques as appropriate, variously including the following: *Automated exposure control *Adjustment of mA and/or kV according to patient size (this includes techniques or standardized protocols for targeted exams where dose is matched to indication/reason for exam; i.e. extremities or head) *Use of iterative reconstruction technique DLP: 631 mGy-cm FINDINGS: LUNG BASES: The lung bases are clear. Heart size is normal. LIVER, GALLBLADDER, AND BILIARY TREE: The liver is normal in size, shape, and diffusely attenuated. No focal hepatic lesion or biliary ductal dilatation is present. The gallbladder is mildly distended but no evidence of radiopaque gallstones, gallbladder wall thickening, or obvious pericholecystic inflammatory changes. PANCREAS: Unremarkable. SPLEEN: Unremarkable. ADRENAL GLANDS: Unremarkable. KIDNEYS AND URETERS: The kidneys are normal in size, shape, and diffuse hypo-attenuation. There is normal cortical thickness. There is a 7 mm nonobstructive stone midpole right kidney approximately 14.7 cm above the jessenia. There is a 5 mm radiopaque calculi lower pole left kidney approximately 12.2 cm above the jessenia. There is mild bilateral perinephric stranding. BLADDER: There is a 4 mm dependent radiopaque calculi. No bladder wall thickening seen. GASTROINTESTINAL TRACT: Moderate scattered stool is seen throughout the colon without any significant distention. There is no mural thickening. The small bowel loops are normal caliber. Appendix is visualized and is normal caliber. No inflammatory process or free air seen. There is no free fluid. There is nonspecific mild eccentric mural thickening of rectum on axial slice 72/3 ABDOMINAL WALL: Small umbilical hernia containing fat. LYMPH NODES: Normal. VASCULAR: Mild atherosclerotic changes of abdominal aorta without aneurysmal dilatation. PELVIC VISCERA: The prostate gland is mildly enlarged with peripheral central gland calcification. OSSEOUS STRUCTURES: No aggressive lytic or sclerotic process seen. There is focal calcification L2-L3 disc. There is bilateral L5-S1 facet joint arthropathy greater on the right. CT/CT abdomen pelvis wo IV con IMPRESSION: 1. Bilateral nonobstructive radiopaque renal calculi. The calculi are minimally larger from previous CT 04/20/2020. No hydronephrosis. 2. Mild constipation. Nonspecific mild eccentric mural thickening of the rectum. Consider endoscopy or BE study 3. Mild prostate enlargement with central gland calcification. 4. Small umbilical hernia containing fat. 5. Hepatic steatosis Fleischner guidelines were followed.
[2023-08-11 07:57] VITALS: BP 143/99; PULSE 110; RESP 18; TEMP 36.5; O2SAT 97; BMI 33.9
[2023-08-11 08:22] LABS: Appearance Urine Clear; Color Urine Dark Yellow; Glucose Urine UA Negative (Negative); Leukocyte Esterase Urine Negative (Negative); Nitrite Urine Negative (Negative); UMIC TRIGGER UACC YES; Urine Blood Large (3+) (Negative); Urine Ketones Negative (Negative); Urine Protein 100 (2+) mg/dL (Neg-Trace)
[2023-08-11 08:25] LABS: Bacteria Urine None Seen (None Seen); RBC Urine >20 /HPF (0-2); Squamous Epithelial Cell Urine 0-2 /HPF (0-2); WBC Urine 0-5 /HPF (0-5)
[2023-08-11 10:24] VITALS: BP 146/110; PULSE 96; RESP 16; O2SAT 96
--- NOTE | 2023-08-11 10:31 | ED_ITS ---
HPI - Male Genitourinary General Chief complaint: Urogenital-Male Stated complaint: Kidney stone Time Seen by Provider: 08/11/23 10:21 Source: patient and family Mode of arrival: ambulatory Limitations: no limitations History of Present Illness HPI Narrative: patient states over the past few weeks he has and flank and groin pain with frequency and dysuria. He states that a CT at [facility] showed Related Data Home Medications Medication Instructions Recorded Confirmed Aspirin Child 08/29/20 Colace 08/29/20 Florastor 08/29/20 multivitamin 08/29/20 omeprazole 08/29/20 simvastatin 80 mg tablet tab PO 08/29/20 Previous Rx's Medication Instructions Recorded albuterol sulfate 90 mcg/actuation 2 puff inhalation Q4-6H PRN 08/29/20 aerosol inhaler shortness of breath or wheezing #6.7 grams diphenhydramine HCl 25 mg capsule 50 mg (2 x 25 mg) PO Q6H 3 days 03/15/21 (Benadryl) #24 caps epinephrine 0.3 mg/0.3 mL 0.3 mg (0.3 mL) IM Q10M PRN 03/15/21 injection, auto-injector (EpiPen anaphylaxis #2 ea 2-Deacon) famotidine 20 mg tablet (Pepcid AC) 20 mg PO BID 3 days #6 tabs 03/15/21 clindamycin HCl 300 mg capsule 300 mg PO QID 10 days #40 caps 12/22/21 cephalexin 500 mg capsule 500 mg PO Q6H 10 days #40 caps 08/11/23 tamsulosin 0.4 mg capsule (Flomax) 0.4 mg PO BEDTIME #30 caps 08/11/23 Allergies Allergy/AdvReac Type Severity Reaction Status Date / Time fentanyl [FENTANYL] Allergy Severe CARDIAC Verified 08/11/23 08:03 ARREST levofloxacin [From LEVAQUIN] Allergy Severe ITCHING Verified 08/11/23 08:03 oxycodone [From PERCOCET] Allergy Severe HIVES Verified 08/11/23 08:03 divalproex sodium Allergy Unknown ANAPHYLAXIS Verified 08/11/23 08:03 [From DEPAKOTE] fluconazole [From DIFLUCAN] Allergy Unknown UNKNOWN Verified 08/11/23 08:03 fosphenytoin [FOSPHENYTOIN] Allergy Unknown UNKNOWN Verified 08/11/23 08:03 hydrocodone Allergy Unknown Unknown Uncoded 12/22/21 19:34 narcotics Allergy Unknown Unknown Uncoded 12/22/21 19:34 oxycodone Allergy Unknown Unknown Uncoded 12/22/21 19:34 percocet Allergy Unknown Unknown Uncoded 12/22/21 19:34 Review of Systems Review of Systems: Yes all other systems are reviewed and are negative Neurologic: Denies Sensory deficit (Neuro) PMFSH Past Medical History Medical History GERD (gastroesophageal reflux disease) Diverticulitis PTSD (post-traumatic stress disorder) Seizures Hypertension Social History Social History Alcohol intake: never Patient Tobacco Use Status: Never used Tobacco Smoked in Last 30 Days: No Use of substances other than those prescribed or required for medical reasons: Yes Substance Use Type: Marijuana Advance Directives: No Advance Directives Information Provided: No Physical Exam Vital Signs: Vital Signs: Last Vital Signs Temp 97.5 F 08/11/23 11:37 Pulse 80 08/11/23 11:37 Resp 16 08/11/23 11:37 BP 137/94 H 08/11/23 11:37 Pulse Ox 95 08/11/23 11:37 O2 Del Method Room Air 08/11/23 11:37 BMI result Body Mass Index 33.9 Const: General: healthy appearing Nutritional Appearance: average body habitus Orientation/consciousness: oriented to person and patient oriented x3 Limitations: no limitations HEENT: Head: Yes normal to inspection Ears: external ears normal General nose exam: Normal external nose present Mouth: Normal oral and palatal mucosa present and oropharynx normal Throat: Yes posterior oropharynx normal Eyes: General: appearance normal, both eyes and all related structures Neck: Other: supple Neck: Yes normal visual inspection Chest: Chest palpation & inspection: normal inspection of the chest Resp: Auscultation: clear to auscultation bilaterally Cardio: Jugular venous distension: no JVD Rate: regular rate Rhythm: regular rhythm Heart sounds: S1 normal heart sound present and S2 normal heart sound present GI: Inspection: Yes normal to inspection Palpation (GI): Soft to palpation, nontender and No hepatosplenomegaly present Auscultation: normal bowel sounds : General: Yes no CVA tenderness Back/Spine/Pelvis: Back: no CVA tenderness Skin: General skin exam: no rashes or lesions noted Neuro: General: oriented to person and patient oriented x3 Cranial nerves: Yes CN's II-XII intact bilaterally Motor exam (neuro): 5/5 motor strength present throughout Sensory Exam: No Sensory deficit (Neuro) Extrem: General: Yes normal to inspection Psych: Appearance: grossly normal Course Reevaluation(s) Reevaluation #1: CT shows bilateral non obstructing stones, there is some perinephric stranding but patient has a lot of dysuria and frequency will place on levaquin Time: 13:03 Medications Administered Discontinued Medications Generic Name Dose Route Start Last Admin Trade Name Freq PRN Reason Stop Dose Admin Ketorolac Tromethamine 60 mg 08/11/23 10:35 08/11/23 10:40 Ketorolac Tromethamine 60 Mg/2 Ml Vial IM 08/11/23 10:36 60 mg ONCE ONE Administration Ondansetron HCl 4 mg 08/11/23 11:56 08/11/23 12:15 Ondansetron Odt 4 Mg Tab.Rapdis TRANSLINGU 08/11/23 11:57 4 mg ONCE ONE Administration Tamsulosin HCl 0.4 mg 08/11/23 11:56 08/11/23 12:15 Tamsulosin Hcl 0.4 Mg Capsule PO 08/11/23 11:57 0.4 mg ONCE ONE Administration Medical Decision Making Differential Diagnosis Differential Diagnoses: The differential diagnosis associated with the presentation includes (renal colic, hydronephrosis, UTI, pyelonephritis, prostatitis were all considered) Admission/Observation Consideration of admission/observation: Escalation of care including admission/observation considered (upon arrival patient was considered for admission) Lab Data MDM Lab Attestation statement: I reviewed the patient's lab results. (large blood recognized) Labs: Lab Results 08/11/23 Range/Units 08:12 Urine Color Dark Yellow Urine Appearance Clear Urine pH 5.0 (5.0-9.0) Ur Specific [place] 1.020 (1.005-1.025) Urine Protein 100 (2+) H (Neg-Trace) mg/dL Urine Glucose (UA) Negative (Negative) mg/dL Urine Ketones Negative (Negative) mg/dL Urine Blood Large (3+) H (Negative) Urine Nitrite Negative (Negative) Ur Leukocyte Esterase Negative (Negative) Urine RBC >20 H (0-2) /HPF Urine WBC 0-5 (0-5) /HPF Ur Squamous Epith Cells 0-2 (0-2) /HPF Urine Bacteria None Seen (None Seen) Hyaline Casts 3-5 (0-2) /LPF Independent Interpretation I performed an independent interpretation of an: CT Scan (question of left UVJ stone in the bladder wall) Radiology Impression Discussion of test interpretation with radiology: I have reviewed the radiologist's reading. (no hydro bilateral stones non obstructing, no stone in the bladder wall, dependent stone) Independent Historian Clinical information obtained from an independent historian. History obtained from or confirmed by: Spouse External Record Review External record reviewed: Outpatient record Prescription Management I considered prescription management with: Pain Medication (narcotic considered but no obstructing stones) Discharge Plan Discharge Clinical Impression: Prostatitis, Hematuria Patient Disposition: Home, Self-Care Instructions: Enlarged Prostate (BPH) (ED) Prescriptions: New cephalexin 500 mg capsule 500 mg PO Q6H 10 Days Qty: 40 0RF tamsulosin [Flomax] 0.4 mg capsule 0.4 mg PO BEDTIME Qty: 30 0RF No Action Aspirin Child simvastatin 80 mg tablet PO Colace Florastor multivitamin omeprazole albuterol sulfate 90 mcg/actuation HFA aerosol inhaler 2 puff inhalation Q4-6H PRN (Reason: shortness of breath or wheezing) Qty: 6.7 0RF diphenhydramine HCl [Benadryl] 25 mg capsule 50 mg PO Q6H 3 Days Qty: 24 0RF Rx Instructions: Anaphylaxis famotidine [Pepcid AC] 20 mg tablet 20 mg PO BID 3 Days Qty: 6 0RF Rx Instructions: Anaphylaxis epinephrine [EpiPen 2-Deacon] 0.3 mg/0.3 mL auto-injector 0.3 mg IM Q10M PRN (Reason: anaphylaxis) Qty: 2 0RF Rx Instructions: for 2 doses clindamycin HCl 300 mg capsule 300 mg PO QID 10 Days Qty: 40 0RF
[2023-08-11] MEDS: Ketorolac Tromethamine 60 MG/2 ML VIAL IM (10:40)
[2023-08-11 11:37] VITALS: BP 137/94; PULSE 80; RESP 16; TEMP 36.4; O2SAT 95
[2023-08-11] MEDS: Tamsulosin HCL 0.4 MG CAPSULE PO (12:15)
[2023-08-11] MEDS: Ondansetron ODT 4 MG TAB.RAPDIS TRANSLINGU (12:15)
[2023-08-11] MEDS: cephALEXin 500 MG CAPSULE PO (13:36)
== END 2023-08-11 13:42 | disposition home or self-care (01) ==
PROVIDERS: Emergency Provider Emergency Medicine; PCP Nurse Practitioner Family
DX: N41.9 Inflammatory disease of prostate, unspecified (principal); R31.9 Hematuria, unspecified; N20.0 Calculus of kidney; I10 Essential (primary) hypertension; Z79.82 Long term (current) use of aspirin; Z79.899 Other long term (current) drug therapy
CPT/HCPCS: 74176; 81001; 96372; 99284; J1885

== ENCOUNTER 2023-08-16 12:47 | Emergency (ER) | payer OTHER, SELFPAY ==
--- NOTE | ~2023-08-16 | US_ITS ---
EXAMINATION: US SCROTUM CLINICAL INFORMATION: Pain and swelling. COMPARISON: None available. TECHNIQUE: A sonogram of the scrotum was performed assessing carrasco-scale appearance and color Doppler flow. Spectral Doppler analysis of the arterial and venous flow were performed in the testes bilaterally. FINDINGS: RIGHT: Right testicle measures 4.9 x 2.3 x 3.2 cm, volume 18 mL. No focal testicular parenchymal lesions are visualized. Spectral Doppler analysis of the arterial and venous flow is normal in the right testis. Right epididymal head is normal in size. No right hydrocele or varicocele is seen. Right epididymal Doppler flow is normal. LEFT: Left testicle measures 4.6 and 2.4 x 2.0 cm, volume 17 mL. No focal testicular parenchymal lesions are visualized. Spectral Doppler analysis of the arterial and venous flow is normal in the left testis. Incidental scrotal zina 4 mm Left epididymal head is normal in size. No left hydrocele or varicocele is seen. Left epididymal Doppler flow is normal. US/US scrotum IMPRESSION: No testicular mass. No evidence for any active torsion.
--- NOTE | ~2023-08-16 | US_ITS ---
EXAMINATION: US SCROTUM CLINICAL INFORMATION: Pain and swelling. COMPARISON: None available. TECHNIQUE: A sonogram of the scrotum was performed assessing carrasco-scale appearance and color Doppler flow. Spectral Doppler analysis of the arterial and venous flow were performed in the testes bilaterally. FINDINGS: RIGHT: Right testicle measures 4.9 x 2.3 x 3.2 cm, volume 18 mL. No focal testicular parenchymal lesions are visualized. Spectral Doppler analysis of the arterial and venous flow is normal in the right testis. Right epididymal head is normal in size. No right hydrocele or varicocele is seen. Right epididymal Doppler flow is normal. LEFT: Left testicle measures 4.6 and 2.4 x 2.0 cm, volume 17 mL. No focal testicular parenchymal lesions are visualized. Spectral Doppler analysis of the arterial and venous flow is normal in the left testis. Incidental scrotal zina 4 mm Left epididymal head is normal in size. No left hydrocele or varicocele is seen. Left epididymal Doppler flow is normal. US/US scrotum doppler IMPRESSION: No testicular mass. No evidence for any active torsion.
[2023-08-16 13:10] VITALS: BP 137/88; BP 147/100; PULSE 120; PULSE 122; RESP 20; TEMP 36.6; O2SAT 100; O2SAT 97; BMI 33.9
[2023-08-16 13:22] LABS: Appearance Urine Clear; Color Urine Dark Yellow; Glucose Urine UA Negative (Negative); Leukocyte Esterase Urine Negative (Negative); Nitrite Urine Negative (Negative); Urine Blood Negative (Negative); Urine Ketones Negative (Negative); Urine Protein Negative (Neg-Trace)
[2023-08-16 14:22] LABS: MANUAL DIFF FLAG NO
[2023-08-16 14:23] LABS: Basophils Absolute Auto 0.1 X10*3/uL (0.0-0.2); Basophils Percent Auto 0.7 % (0-2); Eosinophils Absolute Auto 0.3 X10*3/uL (0.0-0.4); Eosinophils Percent Auto 2.8 % (0-4); Hematocrit 44.4 % (42.0-52.0); Hemoglobin 14.5 g/dl (14.0-18.0); Imm Gran Abs Auto 0.02 X10*3/uL (0.00-0.03); Imm Gran Pct Auto 0.2 % (0.0-0.4); Lymphocytes Absolute Auto 2.9 X10*3/uL (1.2-4.9); Lymphocytes Percent Auto 29.8 % (20-40); Mean Corpuscular HGB Conc 32.7 g/dl (31.0-36.0); Mean Corpuscular Volume 94.9 fL (80.0-98.0); Mean Platelet Volume 8.8 fL (9.4-12.4); Monocytes Absolute Auto 0.6 X10*3/uL (0.1-1.2); Monocytes Percent Auto 6.1 % (2-11); Neutrophils Absolute Auto 5.8 x10*3/uL (2.0-8.3); Neutrophils Percent Auto 60.4 % (45-73); Platelet Count 200 X10*3/uL (160-400); Red Blood Count 4.68 X10*6/uL (4.60-5.80); White Blood Count 9.6 X10*3/uL (4.8-10.8)
--- NOTE | 2023-08-16 14:24 | ECG_ITS ---
Test Reason : TACHY Blood Pressure : / mmHG Vent. Rate : 101 BPM Atrial Rate : 101 BPM P-R Int : 170 ms QRS Dur : 082 ms QT Int : 324 ms P-R-T Axes : 000 173 125 degrees QTc Int : 420 ms Sinus tachycardia probable limb lead reversal Abnormal ECG When compared with ECG of 29-AUG-2020 10:45, limb lead reversal advise repeat study Referred By: Radha Beasley Electronically Signed By:CHRISTIE WILLETT MD
[2023-08-16 14:37] LABS: Alanine Aminotransferase 54 U/L (0-40); Albumin Level 4.3 g/dL (3.5-5.0); Alkaline Phosphatase 68 U/L (39-117); Anion Gap 17 (12-20); Aspartate Amino Transferase 52 U/L (5-37); Bilirubin Total 0.5 mg/dL (0.0-1.0); Blood Urea Nitrogen 11 mg/dL (9-16); Calcium 9.6 mg/dL (8.4-10.2); Carbon Dioxide 16 mmol/L (22-29); Chloride 110 mmol/L (96-108); Creatinine Clr Calc Pharmacy 100.6; Estimated Glomerular Filt Rate > 60; Glucose Random 94 mg/dL (60-115); Potassium 4.3 mmol/L (3.3-5.1); Sodium 139 mmol/L (135-145); Total Protein 7.4 g/dL (6.5-8.0)
[2023-08-16 14:48] VITALS: BP 132/87; PULSE 104; RESP 18; O2SAT 96
--- NOTE | 2023-08-16 15:14 | ED_ITS ---
HPI - Male Genitourinary General Chief complaint: Urogenital-Male Stated complaint: DIFFICULT URINATION Time Seen by Provider: 08/16/23 14:15 Source: patient Mode of arrival: EMS History of Present Illness HPI Narrative: 67-year-old male who comes in by ambulance after being evaluated 3 days ago for suspected kidney stones and hematuria and was diagnosed with prostate infection and then was discharged home with a course of cephalexin. Patient states that initially it was working well but then last night began hurting him much worse and states that it is involving his scrotum and testicles and he reports swelling of the penis. Patient reports he is having difficulty with peeing. Related Data Home Medications Medication Instructions Recorded Confirmed Aspirin Child 08/29/20 Colace 08/29/20 Florastor 08/29/20 multivitamin 08/29/20 omeprazole 08/29/20 simvastatin 80 mg tablet tab PO 08/29/20 Previous Rx's Medication Instructions Recorded albuterol sulfate 90 mcg/actuation 2 puff inhalation Q4-6H PRN 08/29/20 aerosol inhaler shortness of breath or wheezing #6.7 grams diphenhydramine HCl 25 mg capsule 50 mg (2 x 25 mg) PO Q6H 3 days 03/15/21 (Benadryl) #24 caps epinephrine 0.3 mg/0.3 mL 0.3 mg (0.3 mL) IM Q10M PRN 03/15/21 injection, auto-injector (EpiPen anaphylaxis #2 ea 2-Deacon) famotidine 20 mg tablet (Pepcid AC) 20 mg PO BID 3 days #6 tabs 03/15/21 clindamycin HCl 300 mg capsule 300 mg PO QID 10 days #40 caps 12/22/21 tamsulosin 0.4 mg capsule (Flomax) 0.4 mg PO BEDTIME #30 caps 08/11/23 ketorolac 10 mg tablet 10 mg PO Q6H PRN pain 5 days #20 08/16/23 tabs sulfamethoxazole 800 1 tab PO Q12H 14 days #28 tabs 08/16/23 mg-trimethoprim 160 mg tablet (Bactrim DS) Allergies Allergy/AdvReac Type Severity Reaction Status Date / Time fentanyl [FENTANYL] Allergy Severe CARDIAC Verified 08/11/23 08:03 ARREST levofloxacin [From LEVAQUIN] Allergy Severe ITCHING Verified 08/11/23 08:03 oxycodone [From PERCOCET] Allergy Severe HIVES Verified 08/11/23 08:03 divalproex sodium Allergy Unknown ANAPHYLAXIS Verified 08/11/23 08:03 [From DEPAKOTE] fluconazole [From DIFLUCAN] Allergy Unknown UNKNOWN Verified 08/11/23 08:03 fosphenytoin [FOSPHENYTOIN] Allergy Unknown UNKNOWN Verified 08/11/23 08:03 hydrocodone Allergy Unknown Unknown Uncoded 12/22/21 19:34 narcotics Allergy Unknown Unknown Uncoded 12/22/21 19:34 oxycodone Allergy Unknown Unknown Uncoded 12/22/21 19:34 percocet Allergy Unknown Unknown Uncoded 12/22/21 19:34 Review of Systems 2 Review of Systems: Pertinent positives and negatives as stated in HPI [facility] Past Medical History Source: nursing notes reviewed Medical History GERD (gastroesophageal reflux disease) Diverticulitis PTSD (post-traumatic stress disorder) Seizures Hypertension Social History Social History Alcohol intake: never Patient Tobacco Use Status: Never used Tobacco Substance Use Type: Marijuana Advance Directives: No Advance Directives Information Provided: Yes Physical Exam 2 Vital Signs: Vital Signs: Last Vital Signs Temp 98 F 08/16/23 13:10 Pulse 104 H 08/16/23 14:48 Resp 18 08/16/23 14:48 BP 132/87 08/16/23 14:48 Pulse Ox 96 08/16/23 14:48 O2 Del Method Room Air 08/16/23 14:48 BMI result Body Mass Index 33.9 VITAL SIGNS: Reviewed. GENERAL: Well developed, well nourished, in no acute distress. HEAD: Normocephalic/atraumatic EYES: PERRLA, EOMI EARS: Ext canals without abnormality NOSE: Nares patent bilateral OROPHARYNX: no oral lesions noted, posterior pharynx clear NECK: Supple, no adenopathy LUNGS: Normal breath sounds. No adventitious sounds or accessory muscle use. SpO2<96> CARDIOVASCULAR: Regular rate and rhythm without noted murmurs ABDOMEN: Soft, non-tender, non-distended with bowel sounds. 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 MUSCULOSKELETAL: No tenderness, deformities, or effusions noted on gross inspection. EXTREMITIES: No cyanosis, clubbing or edema. SKIN: Inspection of the skin reveals no rashes NEUROLOGIC: Alert and oriented x 4. Strength and sensation to light touch were grossly intact x 4. Medications Administered Discontinued Medications Generic Name Dose Route Start Last Admin Trade Name Freq PRN Reason Stop Dose Admin Morphine Sulfate 2 mg 08/16/23 15:18 08/16/23 15:48 Morphine Sulfate 2 Mg/Ml Cartridge IVPUSH 08/16/23 15:19 2 mg ONCE ONE Administration Protocol Trimethoprim/Sulfamethoxazole 1 tab 08/16/23 15:37 08/16/23 15:48 Sulfamethox/Trimeth 800/160 Tablet PO 08/16/23 15:38 1 tab ONCE ONE Administration Medical Decision Making Medical Decision Making MDM Narrative: 67-year-old male with history and clinical presentation, DDX: UTI, testicular torsion, prostatitis an adequately covered by cephalexin, low clinical suspicion for renal colic and low clinical suspicion for scrotal cellulitis and no clinical suspicion for Tayla's. - patient received both Toradol as well as morphine for pain control, patient also received initial dose of Bactrim and will continue the course for 14 days. Scrotal ultrasound negative for evidence to suggest testicular torsion and does not describe any inflammatory process of the epididymis. Hematologic indices negative for leukocytosis or left shift, there is no anemia or thrombocytopenia. Chemistry indices are grossly within normal limits as there is no evidence of HYACINTH and electrolytes are without derangement. There is a mild transaminitis without right upper quadrant pain. Urinalysis is negative for UTI or hematuria. My interpretation is that patient has continued prostatitis, there is no evidence of epididymal involvement and no suggestion cellulitis. I suspect that the cephalexin may not have been covering be prostatitis and switch to patient's antibiotics over to Bactrim. I also provided the patient with a referral to our urologist but patient typically follows up at the ID. Differential Diagnosis Differential Diagnoses: The differential diagnosis associated with the presentation includes Please see the discussion above Admission/Observation Consideration of admission/observation: Escalation of care including admission/observation considered Please see the discussion above Lab Data MDM Lab Attestation statement: I reviewed the patient's lab results. Please see the discussion above 08/16/23 14:18 08/16/23 14:18 Labs: Lab Results 08/16/23 08/16/23 08/16/23 Range/Units 13:16 14:18 15:37 WBC 9.6 (4.8-10.8) X10*3/uL RBC 4.68 (4.60-5.80) X10*6/uL Hgb 14.5 (14.0-18.0) g/dl Hct 44.4 (42.0-52.0) % MCV 94.9 (80.0-98.0) fL MCH 31.0 (27.0-33.0) pg MCHC 32.7 (31.0-36.0) g/dl RDW 13.0 (11.0-16.0) % Plt Count 200 (160-400) X10*3/uL MPV 8.8 L (9.4-12.4) fL Immature Gran % (Auto) 0.2 (0.0-0.4) % Neut % (Auto) 60.4 (45-73) % Lymph % (Auto) 29.8 (20-40) % [place] % (Auto) 6.1 (2-11) % Eos % (Auto) 2.8 (0-4) % Baso % (Auto) 0.7 (0-2) % Lymph # (Auto) 2.9 (1.2-4.9) X10*3/uL [place] # (Auto) 0.6 (0.1-1.2) X10*3/uL Eos # (Auto) 0.3 (0.0-0.4) X10*3/uL Baso # (Auto) 0.1 (0.0-0.2) X10*3/uL Abs Immat Gran (auto) 0.02 (0.00-0.03) X10*3/uL Absolute Neuts (auto) 5.8 (2.0-8.3) x10*3/uL Absolute Nucleated RBC 0.000 (0.0-0.012) X10*3/uL Nucleated RBC % (auto) 0.0 (0.0-0.2) /100WBC Sodium 139 (135-145) mmol/L Potassium 4.3 (3.3-5.1) mmol/L Chloride 110 H (96-108) mmol/L Carbon Dioxide 16 L (22-29) mmol/L Anion Gap 17 (12-20) BUN 11 (9-16) mg/dL Creatinine 0.78 (0.5-1.4) mg/dL Estim Creat Clear Calc 100.6 Estimated GFR > 60 Random Glucose 94 (60-115) mg/dL Lactic Acid 2.0 (0.5-2.0) mmol/L Calcium 9.6 D (8.4-10.2) mg/dL Total Bilirubin 0.5 (0.0-1.0) mg/dL AST 52 H (5-37) U/L ALT 54 H (0-40) U/L Alkaline Phosphatase 68 (39-117) U/L Total Protein 7.4 (6.5-8.0) g/dL Albumin 4.3 (3.5-5.0) g/dL Urine Color Dark Yellow Urine Appearance Clear Urine pH 5.0 (5.0-9.0) Ur Specific [place] 1.020 (1.005-1.025) Urine Protein Negative (Neg-Trace) mg/dL Urine Glucose (UA) Negative (Negative) mg/dL Urine Ketones Negative (Negative) mg/dL Urine Blood Negative (Negative) Urine Nitrite Negative (Negative) Ur Leukocyte Esterase Negative (Negative) Independent Interpretation I performed an independent interpretation of an: EKG Interpretation: Sinus tachycardia, HR-101, no STEMI, HI/QRS/QTC is within normal limits. Radiology Impression Discussion of test interpretation with radiology: I have reviewed the radiologist's reading. Radiologist Impression: Please see the discussion above External Record Review External record reviewed: Outpatient record, Prior outpatient labs and Prior outpatient radiology Chronic Conditions Patient?s care impacted by: Diabetes Critical Care Time Critical Care Time Critical Care Time: Yes Total Critical Care Time: 30 Attestation: I personally attest to this time spent taking care of the patient. Discharge Plan Discharge Clinical Impression: Prostatitis Patient Disposition: Home, Self-Care Instructions: Prostatitis (ED), Testicle Pain (ED) Additional Instructions: 1. Resume all home medications as prescribed except you should stop taking the cephalexin as you have been started on a different antibiotic called Bactrim. 2. A referral for Urology has been provided to you below and you should call the office 1st thing in the morning to schedule an appointment for re-evaluation and further outpatient management. 3. You will need to continue taking 1000 mg of Tylenol every 6 hours in combination with ketorolac as prescribed and also use scrotal elevation at night while sleeping. Return to the ER for any worsening symptoms. Prescriptions: New sulfamethoxazole-trimethoprim [Bactrim DS] 800-160 mg tablet 1 tab PO Q12H 14 Days Qty: 28 0RF ketorolac 10 mg tablet 10 mg PO Q6H PRN (Reason: pain) 5 Days Qty: 20 0RF Rx Instructions: Patient received Toradol in the emergency room. Discontinued cephalexin 500 mg capsule 500 mg PO Q6H 10 Days Qty: 40 0RF No Action Aspirin Child simvastatin 80 mg tablet PO Colace Florastor multivitamin omeprazole albuterol sulfate 90 mcg/actuation HFA aerosol inhaler 2 puff inhalation Q4-6H PRN (Reason: shortness of breath or wheezing) Qty: 6.7 0RF diphenhydramine HCl [Benadryl] 25 mg capsule 50 mg PO Q6H 3 Days Qty: 24 0RF Rx Instructions: Anaphylaxis famotidine [Pepcid AC] 20 mg tablet 20 mg PO BID 3 Days Qty: 6 0RF Rx Instructions: Anaphylaxis epinephrine [EpiPen 2-Deacon] 0.3 mg/0.3 mL auto-injector 0.3 mg IM Q10M PRN (Reason: anaphylaxis) Qty: 2 0RF Rx Instructions: for 2 doses clindamycin HCl 300 mg capsule 300 mg PO QID 10 Days Qty: 40 0RF tamsulosin [Flomax] 0.4 mg capsule 0.4 mg PO BEDTIME Qty: 30 0RF Referrals: Fabian Red MD [Physician] - Bere Rios NP [Primary Care Provider] -
[2023-08-16] MEDS: Morphine Sulfate 2 MG/ML CARTRIDGE IVPUSH (15:48)
[2023-08-16] MEDS: Sulfamethox/Trimeth 800/160 TABLET 1 TAB PO (15:48)
[2023-08-16 17:40] VITALS: BP 116/82; PULSE 82; RESP 16
== END 2023-08-16 17:56 | disposition home or self-care (01) ==
PROVIDERS: Emergency Provider Student in an Organized Health Care Education/Training Program; PCP Nurse Practitioner Family
DX: N41.9 Inflammatory disease of prostate, unspecified (principal); R33.9 Retention of urine, unspecified; R31.9 Hematuria, unspecified; R00.0 Tachycardia, unspecified; R10.2 Pelvic and perineal pain; N50.89 Other specified disorders of the male genital organs; Z79.899 Other long term (current) drug therapy
CPT/HCPCS: 36415; 76870; 80053; 81003; 83605; 85025; 87040; 93005; 93975; 96374; 99284; J2270

== ENCOUNTER 2023-08-24 12:26 | Emergency (ER) | payer OTHER, SELFPAY ==
--- NOTE | ~2023-08-24 | CT_ITS ---
EXAMINATION: CT ABDOMEN AND PELVIS WITHOUT CONTRAST CLINICAL INFORMATION: Right flank pain. COMPARISON: 08/11/2023 TECHNIQUE: Multidetector volumetric imaging was performed from the superior aspect of the liver through the pubic symphysis. Sagittal and coronal reformatted images were obtained on the technologist's workstation. This CT examination was performed using dose optimization techniques as appropriate, variously including the following: *Automated exposure control *Adjustment of mA and/or kV according to patient size (this includes techniques or standardized protocols for targeted exams where dose is matched to indication/reason for exam; i.e. extremities or head) *Use of iterative reconstruction technique DLP: 649 mGy-cm FINDINGS: LUNG BASES: The visualized lung bases are unremarkable. LIVER, GALLBLADDER, AND BILIARY TREE: The liver is enlarged and decreased in attenuation. No focal hepatic lesion or biliary ductal dilatation is present. The gallbladder is unremarkable with no evidence of radiopaque gallstones, gallbladder wall thickening, or obvious pericholecystic inflammatory changes. PANCREAS: Unremarkable. SPLEEN: Unremarkable. ADRENAL GLANDS: Unremarkable. KIDNEYS AND URETERS: Bilateral nonobstructing renal calculi. The largest on the right measures 9 mm. The largest on the left measures 4 mm. No hydronephrosis or hydroureter. Nonspecific perinephric stranding. BLADDER: Decompressed. GASTROINTESTINAL TRACT: Small and large bowel loops are of normal caliber. No small bowel obstruction. Appendix is within normal limits. ABDOMINAL WALL: No significant hernia is appreciated. LYMPH NODES: No bulky lymphadenopathy. VASCULAR: No abdominal aortic aneurysm. PELVIC VISCERA: Coarse calcification of the prostate gland. OSSEOUS STRUCTURES: No destructive bone lesions. CT/CT abdomen pelvis wo IV con IMPRESSION: Bilateral nephrolithiasis. No hydronephrosis. There has been interval migration of the right renal calculus into the right renal pelvis from the midpole. This may be causing patient's right flank pain. Hepatomegaly and hepatic steatosis.
[2023-08-24 13:41] VITALS: BP 152/100; PULSE 112; RESP 18; TEMP 36.3; O2SAT 97; BMI 33.9
--- NOTE | 2023-08-24 13:42 | ED_ITS ---
HPI - General Adult General Chief complaint: Urogenital-Male Stated complaint: pain in groin area/ blood in urine Time Seen by Provider: 08/24/23 19:17 Source: patient Mode of arrival: ambulatory Limitations: no limitations History of Present Illness HPI narrative: Patient with history of kidney stones complaining of pain in the right flank area and the penis since morning with hematuria and slight dysuria no fever no chills patient had history of bilateral kidney stone and lithotripsy in the past plan to see urologist in future but has not able to see any urologist lately Related Data Home Medications Medication Instructions Recorded Confirmed Aspirin Child 08/29/20 Colace 08/29/20 Florastor 08/29/20 multivitamin 08/29/20 omeprazole 08/29/20 simvastatin 80 mg tablet tab PO 08/29/20 Previous Rx's Medication Instructions Recorded albuterol sulfate 90 mcg/actuation 2 puff inhalation Q4-6H PRN 08/29/20 aerosol inhaler shortness of breath or wheezing #6.7 grams diphenhydramine HCl 25 mg capsule 50 mg (2 x 25 mg) PO Q6H 3 days 03/15/21 (Benadryl) #24 caps epinephrine 0.3 mg/0.3 mL 0.3 mg (0.3 mL) IM Q10M PRN 03/15/21 injection, auto-injector (EpiPen anaphylaxis #2 ea 2-Deacon) famotidine 20 mg tablet (Pepcid AC) 20 mg PO BID 3 days #6 tabs 03/15/21 clindamycin HCl 300 mg capsule 300 mg PO QID 10 days #40 caps 12/22/21 tamsulosin 0.4 mg capsule (Flomax) 0.4 mg PO BEDTIME #30 caps 08/11/23 ketorolac 10 mg tablet 10 mg PO Q6H PRN pain 5 days #20 08/16/23 tabs sulfamethoxazole 800 1 tab PO Q12H 14 days #28 tabs 08/16/23 mg-trimethoprim 160 mg tablet (Bactrim DS) morphine 15 mg immediate release 15 mg PO Q8H PRN pain #15 tabs 08/24/23 tablet ondansetron 4 mg disintegrating 4 mg PO Q6-8H PRN nausea and 08/24/23 tablet vomiting #7 tabs tamsulosin 0.4 mg capsule (Flomax) 0.4 mg PO BEDTIME #20 caps 08/24/23 Allergies Allergy/AdvReac Type Severity Reaction Status Date / Time fentanyl [FENTANYL] Allergy Severe CARDIAC Verified 08/11/23 08:03 ARREST levofloxacin [From LEVAQUIN] Allergy Severe ITCHING Verified 08/11/23 08:03 oxycodone [From PERCOCET] Allergy Severe HIVES Verified 08/11/23 08:03 divalproex sodium Allergy Unknown ANAPHYLAXIS Verified 08/11/23 08:03 [From DEPAKOTE] fluconazole [From DIFLUCAN] Allergy Unknown UNKNOWN Verified 08/11/23 08:03 fosphenytoin [FOSPHENYTOIN] Allergy Unknown UNKNOWN Verified 08/11/23 08:03 hydrocodone Allergy Unknown Unknown Uncoded 12/22/21 19:34 narcotics Allergy Unknown Unknown Uncoded 12/22/21 19:34 oxycodone Allergy Unknown Unknown Uncoded 12/22/21 19:34 percocet Allergy Unknown Unknown Uncoded 12/22/21 19:34 Review of Systems 2 Review of Systems: Yes all other systems are reviewed and are negative [facility] Past Medical History Medical History GERD (gastroesophageal reflux disease) Diverticulitis PTSD (post-traumatic stress disorder) Seizures Hypertension Social History Social History Alcohol intake: never Patient Tobacco Use Status: Never used Tobacco Substance Use Type: Marijuana Advance Directives: No Advance Directives Information Provided: No Physical Exam ED Vital Signs: Vital Signs - 24 hr 08/24/23 13:41 08/24/23 19:22 Temperature 97.4 F 98.3 F Pulse Rate 112 H 79 Respiratory Rate 18 18 Blood Pressure 152/100 H 123/96 H Pulse Oximetry 97 96 Oxygen Delivery Method Room Air Room Air BMI result Body Mass Index 33.9 Appearance: Alert. Oriented X3. In moderate distress Eyes: PERRLA, No Nystagmus ENT: Pharynx normal. Oral Mucosa moist Neck: Normal inspection. Neck supple. CVS: Normal heart rate and rhythm. Pulses normal. Respiratory: No respiratory distress. Equal air entry bilateral, no wheezing/rales/rhonchi Abdomen: Soft and nontender. Bowel sounds are present, no mass palpable, right CVA tenderness : Scrotum normal testicle normal tenderness in penis on palpation ? Stone inside Skin: Skin warm and dry. Normal skin color. Normal skin turgor. Extremities: No lower extremity edema. No calf tenderness Neuro: Oriented X 3. No motor deficit. Course Course Course Narrative: RME- 67 year old male currently on Bactrim for prostatis presents for evaluation of hematuria and pain in his right flank that radiates to his groin and penis. Plan for labs and a urinalysis. Will defer any potential imaging to primary provider Medications Administered Discontinued Medications Generic Name Dose Route Start Last Admin Trade Name Freq PRN Reason Stop Dose Admin Ketorolac Tromethamine 60 mg 08/24/23 20:29 08/24/23 20:55 Ketorolac Tromethamine 60 Mg/2 Ml Vial IM 08/24/23 20:30 60 mg ONCE ONE Administration Lidocaine HCl 10 ml 08/24/23 20:31 08/24/23 20:56 Lidocaine Hcl 2 % Urojet 10 Ml Jel.Pf.Nathaniel TOPICAL 08/24/23 20:32 10 ml ONCE ONE Administration Morphine Sulfate 15 mg 08/24/23 20:29 08/24/23 20:55 Morphine Sulfate Immed Release 15 Mg Tablet PO 08/24/23 20:30 15 mg ONCE ONE Administration Ondansetron HCl 4 mg 08/24/23 20:30 08/24/23 20:55 Ondansetron Odt 4 Mg Tab.Rapdis TRANSLINGU 08/24/23 20:31 4 mg ONCE ONE Administration Tamsulosin HCl 0.4 mg 08/24/23 20:29 08/24/23 20:55 Tamsulosin Hcl 0.4 Mg Capsule PO 08/24/23 20:30 0.4 mg ONCE ONE Administration Medical Decision Making Medical Decision Making [facility] Narrative: Patient complaining of severe pain and pain possible stone in the penis area on clinical palpation urine checked was injected and small stone about 3 mm came out patient felt much better after that , able to urinate. CT scan showed and Dr. sidhu at the right UPJ likely the cause of the pain in the right flank area case discussed Dr. Red patient will be seen in the office tomorrow improved in pain after morphine and Uro jet injection Differential Diagnosis Differential Diagnoses: The differential diagnosis associated with the presentation includes UTI/kidney stone/bladder stone Admission/Observation Consideration of admission/observation: Escalation of care including admission/observation considered Consult Healthcare Provider Management of the patient was discussed with: Salvage Cutter Urologist Dr. Red Lab Data MDM Lab Attestation statement: I reviewed the patient's lab results. 08/24/23 14:07 08/24/23 14:07 Labs: Lab Results 08/24/23 08/24/23 Range/Units 13:54 14:07 WBC 9.7 (4.8-10.8) X10*3/uL RBC 4.68 (4.60-5.80) X10*6/uL Hgb 14.8 (14.0-18.0) g/dl Hct 44.8 (42.0-52.0) % MCV 95.7 (80.0-98.0) fL MCH 31.6 (27.0-33.0) pg MCHC 33.0 (31.0-36.0) g/dl RDW 13.2 (11.0-16.0) % Plt Count 215 (160-400) X10*3/uL MPV 8.7 L (9.4-12.4) fL Immature Gran % (Auto) 0.3 (0.0-0.4) % Neut % (Auto) 50.0 (45-73) % Lymph % (Auto) 39.0 (20-40) % [place] % (Auto) 7.0 (2-11) % Eos % (Auto) 3.2 (0-4) % Baso % (Auto) 0.5 (0-2) % Lymph # (Auto) 3.8 (1.2-4.9) X10*3/uL [place] # (Auto) 0.7 (0.1-1.2) X10*3/uL Eos # (Auto) 0.3 (0.0-0.4) X10*3/uL Baso # (Auto) 0.1 (0.0-0.2) X10*3/uL Abs Immat Gran (auto) 0.03 (0.00-0.03) X10*3/uL Absolute Neuts (auto) 4.8 (2.0-8.3) x10*3/uL Absolute Nucleated RBC 0.000 (0.0-0.012) X10*3/uL Nucleated RBC % (auto) 0.0 (0.0-0.2) /100WBC Sodium 140 (135-145) mmol/L Potassium 4.2 (3.3-5.1) mmol/L Chloride 109 H (96-108) mmol/L Carbon Dioxide 21 L (22-29) mmol/L Anion Gap 14 (12-20) BUN 14 (9-16) mg/dL Creatinine 1.02 (0.5-1.4) mg/dL Estim Creat Clear Calc 76.9 Estimated GFR > 60 Random Glucose 111 (60-115) mg/dL Calcium 10.0 (8.4-10.2) mg/dL Urine Color BROWN Urine Appearance Turbid Urine pH 5.0 (5.0-9.0) Ur Specific [place] >= 1.030 H (1.005-1.025) Urine Protein 100 (2+) H (Neg-Trace) mg/dL Urine Glucose (UA) Negative (Negative) mg/dL Urine Ketones Negative (Negative) mg/dL Urine Blood Large (3+) H (Negative) Urine Nitrite Negative (Negative) Ur Leukocyte Esterase Negative (Negative) Urine RBC >20 H (0-2) /HPF Urine WBC 11-20 H (0-5) /HPF Ur Squamous Epith Cells 6-10 (0-2) /HPF Other Crystals Present Urine Bacteria Trace (None Seen) Hyaline Casts 0-2 (0-2) /LPF Urine Yeast Present Independent Interpretation I performed an independent interpretation of an: CT Scan Radiology Impression Discussion of test interpretation with radiology: I have reviewed the radiologist's reading. Discharge Plan Discharge Clinical Impression: Kidney stone on right side Patient Disposition: Home, Self-Care Instructions: Kidney Stones (ED) Additional Instructions: Drink plenty of fluids Pain medication as prescribed Flomax daily See Dr. Red/urologist in 1-2 days, their office will call you in the morning Prescriptions: New morphine 15 mg tablet 15 mg PO Q8H PRN (Reason: pain) Qty: 15 0RF Rx Instructions: Partial Fill upon patient request. tamsulosin [Flomax] 0.4 mg capsule 0.4 mg PO BEDTIME Qty: 20 0RF ondansetron 4 mg tablet,disintegrating 4 mg PO Q6-8H PRN (Reason: nausea and vomiting) Qty: 7 0RF No Action Aspirin Child simvastatin 80 mg tablet PO Colace Florastor multivitamin omeprazole albuterol sulfate 90 mcg/actuation HFA aerosol inhaler 2 puff inhalation Q4-6H PRN (Reason: shortness of breath or wheezing) Qty: 6.7 0RF diphenhydramine HCl [Benadryl] 25 mg capsule 50 mg PO Q6H 3 Days Qty: 24 0RF Rx Instructions: Anaphylaxis famotidine [Pepcid AC] 20 mg tablet 20 mg PO BID 3 Days Qty: 6 0RF Rx Instructions: Anaphylaxis epinephrine [EpiPen 2-Deacon] 0.3 mg/0.3 mL auto-injector 0.3 mg IM Q10M PRN (Reason: anaphylaxis) Qty: 2 0RF Rx Instructions: for 2 doses clindamycin HCl 300 mg capsule 300 mg PO QID 10 Days Qty: 40 0RF tamsulosin [Flomax] 0.4 mg capsule 0.4 mg PO BEDTIME Qty: 30 0RF sulfamethoxazole-trimethoprim [Bactrim DS] 800-160 mg tablet 1 tab PO Q12H 14 Days Qty: 28 0RF ketorolac 10 mg tablet 10 mg PO Q6H PRN (Reason: pain) 5 Days Qty: 20 0RF Rx Instructions: Patient received Toradol in the emergency room. Referrals: Fabian Red MD [Physician] - 2 days Interventions: ED Discharge Assessment Last Done: 08/24/23 22:03 Discharge Date/Time: 08/24/23 22:04
[2023-08-24 14:09] LABS: Appearance Urine Turbid; Color Urine BROWN; Glucose Urine UA Negative (Negative); Leukocyte Esterase Urine Negative (Negative); Nitrite Urine Negative (Negative); UMIC TRIGGER UACC YES; Urine Blood Large (3+) (Negative); Urine Ketones Negative (Negative); Urine Protein 100 (2+) mg/dL (Neg-Trace)
[2023-08-24 14:12] LABS: Specific Gravity - Urine >= 1.030 (1.005-1.025)
[2023-08-24 14:12] LABS: MANUAL DIFF FLAG NO
[2023-08-24 14:14] LABS: Basophils Absolute Auto 0.1 X10*3/uL (0.0-0.2); Basophils Percent Auto 0.5 % (0-2); Eosinophils Absolute Auto 0.3 X10*3/uL (0.0-0.4); Eosinophils Percent Auto 3.2 % (0-4); Hematocrit 44.8 % (42.0-52.0); Hemoglobin 14.8 g/dl (14.0-18.0); Imm Gran Abs Auto 0.03 X10*3/uL (0.00-0.03); Imm Gran Pct Auto 0.3 % (0.0-0.4); Lymphocytes Absolute Auto 3.8 X10*3/uL (1.2-4.9); Mean Corpuscular Hemoglobin 31.6 pg (27.0-33.0); Mean Corpuscular Volume 95.7 fL (80.0-98.0); Mean Platelet Volume 8.7 fL (9.4-12.4); Monocytes Absolute Auto 0.7 X10*3/uL (0.1-1.2); Neutrophils Absolute Auto 4.8 x10*3/uL (2.0-8.3); Platelet Count 215 X10*3/uL (160-400); Red Blood Count 4.68 X10*6/uL (4.60-5.80); Red Cell Distribution Width 13.2 % (11.0-16.0); White Blood Count 9.7 X10*3/uL (4.8-10.8)
[2023-08-24 14:25] LABS: Anion Gap 14 (12-20); Blood Urea Nitrogen 14 mg/dL (9-16); Carbon Dioxide 21 mmol/L (22-29); Chloride 109 mmol/L (96-108); Creatinine Clr Calc Pharmacy 76.9; Estimated Glomerular Filt Rate > 60; Glucose Random 111 mg/dL (60-115); Potassium 4.2 mmol/L (3.3-5.1); Sodium 140 mmol/L (135-145)
[2023-08-24 14:26] LABS: Bacteria Urine Trace (None Seen); Hyaline Casts Urine 0-2 /LPF (0-2); Other Crystals Urine Present; RBC Urine >20 /HPF (0-2); UACC Culture Trigger YES
[2023-08-24 19:22] VITALS: BP 123/96; PULSE 79; RESP 18; TEMP 36.8; O2SAT 96
--- NOTE | 2023-08-24 20:06 | PC.NURSE ---
1x attempt to insert iv; pt refusing further attempts by this RN as pt states he is a difficult stick and always needs U/S to insert IV. mannequin sander and finisher Danyell and Isabela to attempt to obtain iv access.
--- NOTE | 2023-08-24 20:22 | PC.NURSE ---
multiple IV attempts by another RN. Dr. Hoff aware will attempt for U/S IV.
--- NOTE | 2023-08-24 20:25 | PC.NURSE ---
This RN at bedside, unable to establish IV access. MD to attempt with U/S. Primary RN notified.
[2023-08-24] MEDS: Morphine Sulfate Immed Release 15 MG TABLET PO (20:55)
[2023-08-24] MEDS: Ondansetron ODT 4 MG TAB.RAPDIS TRANSLINGU (20:55)
[2023-08-24] MEDS: Ketorolac Tromethamine 60 MG/2 ML VIAL IM (20:55)
[2023-08-24] MEDS: Tamsulosin HCL 0.4 MG CAPSULE PO (20:55)
[2023-08-24] MEDS: Lidocaine HCl 2 % Urojet 10 ML JEL.PF.APP TOPICAL (20:56)
--- NOTE | 2023-08-24 21:02 | PC.NURSE ---
pt medicated per mar able to tolerate PO intake. uroject used by Dr. Hoff.
== END 2023-08-24 22:04 | disposition home or self-care (01) ==
PROVIDERS: Physician Assistant; Emergency Provider Internal Medicine; PCP Nurse Practitioner Family
DX: N20.0 Calculus of kidney (principal); R10.31 Right lower quadrant pain; R31.9 Hematuria, unspecified; R10.2 Pelvic and perineal pain; Z79.899 Other long term (current) drug therapy
CPT/HCPCS: 36415; 74176; 80048; 81001; 85025; 87086; 96372; 99284; J1885

== ENCOUNTER 2023-08-25 12:58 | Outpatient (AMB) | payer OTHER, SELFPAY ==
--- NOTE | 2023-08-25 13:08 | A.OFFVIS_ITS ---
Intake Intake Visit Reasons: er follow up Intake Note: Patient is Present for Follow Up from [facility] ER stones/Prostatitis/Hematuria Urology Medication:Tamsulosin Antibiotic Allergies:Levofloxacin, Blood Thinners: Aspirin Patient states that he had stones in past many years ago. Currently patient is having discomfort. Patient was recently in ER for Stones. Patient states he has been having this issue for about over a month. Allergies fentanyl [FENTANYL] Allergy (Severe, Verified 08/25/23 21:05) CARDIAC ARREST levofloxacin [From LEVAQUIN] Allergy (Severe, Verified 08/25/23 21:05) ITCHING oxycodone [From PERCOCET] Allergy (Severe, Verified 08/25/23 21:05) HIVES divalproex sodium [From DEPAKOTE] Allergy (Unknown, Verified 08/25/23 21:05) ANAPHYLAXIS fluconazole [From DIFLUCAN] Allergy (Unknown, Verified 08/25/23 21:05) UNKNOWN fosphenytoin [FOSPHENYTOIN] Allergy (Unknown, Verified 08/25/23 21:05) UNKNOWN hydrocodone Allergy (Unknown, Uncoded 08/25/23 21:05) Unknown narcotics Allergy (Unknown, Uncoded 08/25/23 21:05) Unknown oxycodone Allergy (Unknown, Uncoded 08/25/23 21:05) Unknown percocet Allergy (Unknown, Uncoded 08/25/23 21:05) Unknown Medication List - Last Reconciled 08/25/23 by CIERRA Abraham-ALEX albuterol sulfate 90 mcg/actuation 2 puffs inhalation Q4-6H PRN [Aspirin Child ] [Colace ] diphenhydramine HCl (Benadryl) 50 mg (2 x 25 mg) PO Q6H 3 days epinephrine (EpiPen 2-Deacon) 0.3 mg (0.3 mL) IM Q10M PRN famotidine (Pepcid AC) 20 mg PO BID 3 days [Florastor ] ketorolac 10 mg PO Q6H PRN 5 days morphine 15 mg PO Q8H PRN [multivitamin ] [omeprazole ] ondansetron 4 mg PO Q6-8H PRN simvastatin tabs PO sulfamethoxazole-trimethoprim 800-160 mg (Bactrim DS) 1 tab PO Q12H 14 days tamsulosin (Flomax) 0.4 mg PO BEDTIME HPI HPI Comments History of Present Illness Details Javier is a 67-year-old male patient of Dr. Rios. He has a past medical history of GERD, diverticulitis, PTSD, seizures, and hypertension. He presents to the office today as a new patient for nephrolithiasis. In discussion with the patient today he reports having seeked emergency room care due to ongoing right-sided flank pain he has been experiencing. He reports having seeked emergency room care approximately 3 times in the last 1 month for ongoing urological issues he had been experiencing. He reports feeling all symptoms had started shortly after being diagnosed with COVID in June. He reports noting hematuria the end of July at which time he was treated for prostatitis. He reports pain and lower urinary tract symptoms he had been experiencing had subsided while taking Bactrim however he then started experiencing right-sided flank pain and seeked emergency room care yesterday. Recent CT results reviewed with the patient today. Bilateral nonobstructing renal calculi. The largest on the right measures 9 mm. The largest on the left measures 4 mm. No hydronephrosis or hy droureter. When asked patient continues to report right-sided flank. He reports hematuria he had been experiencing has since subsided. In review of patient's chart it appears approximately a 3 mm stone was removed from his urethra during his ER visit and since then he reports severe pain he had been experiencing has since subsided however he does continue with right-sided flank pain. He otherwise denies urinary urgency, urinary frequency, incontinence, nocturia, hematuria, dysuria, foul smelling urine, changes to urinary stream, fever, and or chills. He is happy with her current voiding parameters. He reports compliance with Flomax that was given by ER physician and is getting pain relief with PO morphine that was provided by ER physician. Discussed at length surgical intervention regarding nephrolithiasis given 9 mm stone and patient experiencing right-sided flank pain. Discussed at length risks and benefits of right-sided ESWL. All questions were answered. Information was provided. Discussed, educated, encouraged on the importance of drinking plenty of water daily. In office urinalysis results reviewed with the patient today. [facility] Medical History GERD (gastroesophageal reflux disease) Diverticulitis PTSD (post-traumatic stress disorder) Seizures Hypertension Social History Alcohol intake: never Patient Tobacco Use Status: Never used Tobacco Substance Use Type: Marijuana Review of Systems Const Reports as per [facility] Eyes Reports no additional complaints ENT Reports no additional complaints Card Reports as per HPI Resp Reports no additional complaints GI Reports as per HPI Reports as per HPI Musc Reports no additional complaints Neuro Reports as per HPI Psych Reports as per HPI Endo Reports no additional complaints Elio/Lymph Reports no additional complaints Aller/Immun Reports no additional complaints Physical Exam Const General: cooperative, healthy appearing, comfortable, no acute distress, well developed, alert and awake Orientation/consciousness: patient oriented x3 Limitations: no limitations HEENT Head: Yes normal to inspection, Yes normocephalic and Yes atraumatic Ears: hearing grossly normal bilaterally Eyes General: appearance normal, both eyes and all related structures Neck Neck: Yes normal visual inspection and Yes trachea midline Chest Chest palpation & inspection: normal inspection of the chest Resp Effort & Inspection: normal respiratory effort and able to speak in complete sentences Cardio Rate: regular rate GI Inspection: Yes normal to inspection General: Yes no CVA tenderness Back/Spine/Pelvis Back: no CVA tenderness Skin General skin exam: no rashes or lesions noted Neuro General: patient oriented x3 Extrem General: Yes normal to inspection Psych Appearance: grossly normal and well kempt Mental Status: mental status grossly normal Speech and movement: Normal speech and movement present and Clear speech present Affect: normal affect Attitude: cooperative Thought process: Normal thought process present Thought content: Normal thought content present Insight: Fair insight present (Psych) Judgement: Fair judgement present (Psych) Results AMB Urinalysis, Automated UA Leukoctes 15 Mary/uL Last Edit by MUSHTAQ Calvert on 08/25/23 13:29 UA Nitrite Negative Last Edit by MUSHTAQ Calvert on 08/25/23 13:29 UA Urobilinogen 0.2 mg/dL Last Edit by MUSHTAQ Calvert on 08/25/23 13:2 9 UA Protein 100 mg/dL Last Edit by MUSHTAQ Calvert on 08/25/23 13:29 UA pH 5.0 Last Edit by MUSHTAQ Calvert on 08/25/23 13:29 UA Blood 200 Wallace/uL Last Edit by WILMAN CalvertA on 08/25/23 13:29 UA Specific [place] 1.030 Last Edit by OlgaWILMAN ReyesA on 08/25/23 13: 29 UA Ketone Negative Last Edit by Olgadagmar Alexis, RMA on 08/25/23 13:29 UA Bilirubin 0 mg/dL Last Edit by Olga Alexis, RMA on 08/25/23 13:29 UA Glucose 0 mg/dL Last Edit by Olga Alexis A on 08/25/23 13:29 Results Reviewed Results Reviewed: Laboratory Last Values Urine pH (Auto) 5.0 08/25/23 13:10 Specific [place] (Auto) 1.030 08/25/23 13:10 Urine Protein (Auto) 100 mg/dL 08/25/23 13:10 Glucose (UA)(Auto) 0 mg/dL 08/25/23 13:10 Urine Ketones (Auto) Negative 08/25/23 13:10 Urine Blood (Auto) 200 Wallace/uL 08/25/23 13:10 Urine Nitrite (Auto) Negative 08/25/23 13:10 Urine Bilirubin (Auto) 0 mg/dL 08/25/23 13:10 Urine Urobilinogen (Auto) 0.2 mg/dL 08/25/23 13:10 Leukocyte Esterase (Auto) 15 Mary/uL 08/25/23 13:10 Date of Service: 08/24/23 EXAMINATION: CT ABDOMEN AND PELVIS WITHOUT CONTRAST FINDINGS: LUNG BASES: The visualized lung bases are unremarkable. LIVER, GALLBLADDER, AND BILIARY TREE: The liver is enlarged and decreased in attenuation. No focal hepatic lesion or biliary ductal dilatation is present. The gallbladder is unremarkable with no evidence of radiopaque gallstones, gallbladder wall thickening, or obvious pericholecystic inflammatory changes. PANCREAS: Unremarkable. SPLEEN: Unremarkable. ADRENAL GLANDS: Unremarkable. KIDNEYS AND URETERS: Bilateral nonobstructing renal calculi. The largest on the right measures 9 mm. The largest on the left measures 4 mm. No hydronephrosis or hydroureter. Nonspecific perinephric stranding. BLADDER: Decompressed. GASTROINTESTINAL TRACT: Small and large bowel loops are of normal caliber. No small bowel obstruction. Appendix is within normal limits. ABDOMINAL WALL: No significant hernia is appreciated. LYMPH NODES: No bulky lymphadenopathy. VASCULAR: No abdominal aortic aneurysm. PELVIC VISCERA: Coarse calcification of the prostate gland. OSSEOUS STRUCTURES: No destructive bone lesions. IMPRESSION: Bilateral nephrolithiasis. No hydronephrosis. There has been interval migration of the right renal calculus into the right renal pelvis from the midpole. This may be causing patient's right flank pain. Hepatomegaly and hepatic steatosis. Assessment & Plan Assessment & Plan (1) Nephrolithiasis: Code(s): N20.0 - Calculus of kidney (2) Flank pain: Code(s): R10.9 - Unspecified abdominal pain Plan: Plan Extracorporeal Shock Wave Lithotripsy We discussed the nature of the decision and reasonable alternatives for performing the above surgery. Interventions include chemical dissolution, ESWL, ureteroscopy with laser lithotripsy and stent placement, PCNL. ? Options such as medical therapy were discussed. The relative uncertainties and benefits related to each alternate procedure were adequately discussed. General surgical risks including, but not limited to, pain, bleeding, infection, myocardial infarction, pulmonary embolus, deep vein thrombosis and cerebrovascular accident which may result in further hospitalization were discussed.? Full disclosure of the procedure as well as all major risks, benefits and complications were discussed including but not limited to risks of bleeding, injury to the kidney with hematoma or goldie-hematoma, failure to fragments stone, potential for ureteric obstruction from stone passage and need for secondary pr ocedures.? There is a small long-term risk of hypertension and a question jacob of diabetes.? Success rate of fragmentation and passage is approximately 70- 75%.? This is compared to the risks and benefits for ureteroscopy which has a higher success rate but is a more invasive procedure. The success rate of the procedure was discussed. Success of the procedure in the short-term does not necessarily guarantee that long-term success will be maintained. Suitable follow up will need to be maintained. The patient showed understanding of the discussion as well as the typical recovery time, and the o utpatient nature of this procedure. Opportunity was given for questions. Repeat- back protocol used to confirm understanding. They wish to proceed with Right ESWL Plan In office urinalysis results reviewed with the patient today; as noted above. Recent CT results reviewed with the patient today; as noted above. Discussed, educated, encouraged on the importance of drinking plenty of water daily. Continue with Flomax and morphine as needed for pain. Discussed at length surgical intervention regarding 9 mm right renal stone and patient experiencing intermittent right-sided flank pain. Risks and benefits of right-sided ESWL were discussed at length. Will schedule for right-sided ESWL with Dr. Red as discussed. Follow-up status post right-sided ESWL per Dr. Red's order; or sooner with any issues, concerns, and or questions. Orders: Orders AMB Urinalysis Automated Today Z13.9 - Encounter for screening, unspecified Medications: Discontinued diphenhydramine HCl (Benadryl) Anaphylaxis Discontinued Reason: Patient no longer taking 50 mg (2 x 25 mg) PO Q6H 3 days 24 caps 0RF ketorolac Patient received Toradol in the emergency room. Discontinued Reason: Patient Completed Course 10 mg PO Q6H 5 days PRN 20 tabs 0RF pain Coding Level of Care Code New Pt Level 4 (01524) Diagnoses Nephrolithiasis N20.0 Flank pain R10.9
== END 2023-08-25 14:11 | disposition home or self-care (01) ==
PROVIDERS: PCP Nurse Practitioner Family; Visit Provider Nurse Practitioner Family
DX: N20.0 Calculus of kidney (principal); R10.9 Unspecified abdominal pain
CPT/HCPCS: 99204

== ENCOUNTER → 2023-08-25 12:58 | Outpatient (BNVA) | payer OTHER, SELFPAY | PROVIDERS: PCP Nurse Practitioner Family; Visit Provider Urology | DX: N20.0 Calculus of kidney (principal); R10.9 Unspecified abdominal pain | CPT/HCPCS: 81003; 99202 ==

== ENCOUNTER 2023-09-02 07:59 | Day surgery (SDC) | payer OTHER, SELFPAY ==
--- NOTE | 2023-09-01 09:52 | HO.ANESPROP2 ---
Documented by User: Margie Mcginnis NP 09/01/23 09:54 [facility] Active Problems Active Problems: All Active Problems (Updated 08/25/23 @ 21:24 [facility] Flank pain (Acute) Nephrolithiasis (Acute) Rotator cuff tear (Acute) Past Medical History Medical History Sleep apnea Asthma DMII (diabetes mellitus, type 2) GERD (gastroesophageal reflux disease) Diverticulitis PTSD (post-traumatic stress disorder) Seizures Hypertension Surgical History Surgical History Hx of elbow surgery Hx of appendectomy Hx of umbilical hernia repair Hx of laparoscopy Social History Social History Alcohol intake: never Patient Tobacco Use Status: Former Tobacco user Quit Date: 16 yrs ago Use of substances other than those prescribed or required for medical reasons: Yes Substance Use Type: Marijuana Substance Use Type Other:: medical gummies for seizures Are you DNR?: No Advance Directives: No Advance Directives Information Provided: Yes Meds Allergies Allergy/AdvReac Type Severity Reaction Status Date / Time fentanyl [FENTANYL] Allergy Severe CARDIAC Verified 09/02/23 09:52 ARREST levofloxacin [From LEVAQUIN] Allergy Severe ITCHING Verified 09/02/23 09:52 oxycodone [From PERCOCET] Allergy Severe HIVES Verified 09/02/23 09:52 divalproex sodium Allergy Unknown ANAPHYLAXIS Verified 09/02/23 09:52 [From DEPAKOTE] fluconazole [From DIFLUCAN] Allergy Unknown Hives Verified 09/02/23 09:52 fosphenytoin [FOSPHENYTOIN] Allergy Unknown Hives Verified 09/02/23 09:52 hydrocodone Allergy Unknown Unknown Uncoded 09/02/23 09:51 narcotics Allergy Unknown Unknown Uncoded 08/25/23 21:05 oxycodone Allergy Unknown Unknown Uncoded 08/25/23 21:05 percocet Allergy Unknown Unknown Uncoded 08/25/23 21:05 Home Medications Medication Instructions Recorded Confirmed Last Taken Type Colace 100 mg PO DAILY PRN Constipation 08/29/20 Unknown History Florastor 100 mg PO BID 08/29/20 Unknown History multivitamin PO DAILY 08/29/20 Unknown History omeprazole 40 mg PO DAILY 08/29/20 Unknown History simvastatin 80 mg tablet 40 mg PO BEDTIME 08/29/20 Unknown History metformin 500 mg tablet 500 mg PO BID 09/02/23 09/02/23 Unknown History Exam Exam Date and Time: September 01, 2023 0979 Pertinent Lab Results Pertinent Lab Results: Laboratory Tests 08/24/23 14:07 WBC 9.7 Hgb 14.8 Hct 44.8 Plt Count 215 Sodium 140 Potassium 4.2 Chloride 109 H Carbon Dioxide 21 L BUN 14 Creatinine 1.02 Assessment and Plan Assessment Anesthesia Assessment: Chart Reviewed Documented by User: Radha Coto MD 09/02/23 10:07 PMFSH Past Medical History Medical History Sleep apnea Asthma DMII (diabetes mellitus, type 2) GERD (gastroesophageal reflux disease) Diverticulitis PTSD (post-traumatic stress disorder) Seizures Hypertension Surgical History Surgical History Hx of elbow surgery Hx of appendectomy Hx of umbilical hernia repair Hx of laparoscopy History of Problems with Anesthesia: No Social History Social History Alcohol intake: never Patient Tobacco Use Status: Former Tobacco user Quit Date: 16 yrs ago Use of substances other than those prescribed or required for medical reasons: Yes Substance Use Type: Marijuana Substance Use Type Other:: medical gummies for seizures Are you DNR?: No Advance Directives: No Advance Directives Information Provided: Yes Meds Allergies Allergy/AdvReac Type Severity Reaction Status Date / Time fentanyl [FENTANYL] Allergy Severe CARDIAC Verified 09/02/23 09:52 ARREST levofloxacin [From LEVAQUIN] Allergy Severe ITCHING Verified 09/02/23 09:52 oxycodone [From PERCOCET] Allergy Severe HIVES Verified 09/02/23 09:52 divalproex sodium Allergy Unknown ANAPHYLAXIS Verified 09/02/23 09:52 [From DEPAKOTE] fluconazole [From DIFLUCAN] Allergy Unknown Hives Verified 09/02/23 09:52 fosphenytoin [FOSPHENYTOIN] Allergy Unknown Hives Verified 09/02/23 09:52 hydrocodone Allergy Unknown Unknown Uncoded 09/02/23 09:51 narcotics Allergy Unknown Unknown Uncoded 08/25/23 21:05 oxycodone Allergy Unknown Unknown Uncoded 08/25/23 21:05 percocet Allergy Unknown Unknown Uncoded 08/25/23 21:05 Home Medications Medication Instructions Recorded Confirmed Last Taken Type Colace 100 mg PO DAILY PRN Constipation 08/29/20 Unknown History Florastor 100 mg PO BID 08/29/20 Unknown History multivitamin PO DAILY 08/29/20 Unknown History omeprazole 40 mg PO DAILY 08/29/20 Unknown History simvastatin 80 mg tablet 40 mg PO BEDTIME 08/29/20 Unknown History metformin 500 mg tablet 500 mg PO BID 09/02/23 09/02/23 Unknown History Exam Airway Mallampati Class: III (edentulous upper) TM Dist: >3cm Neck ROM: Full Denture: Upper Loose/Missing/Broken Teeth: Yes, Upper and Lower Heart: RRR Lungs: CTA Assessment and Plan Assessment Anesthesia Assessment: Anesthesia Plan Discussed Final Anesthetic Review History of Problems with Anesthesia: No NPO: Yes ASA Class: III Final Preanesthetic Review: Meds/Allgs Chart Reviewed, Consent Obtained/Reviewed and Anes Risks/Benef Reviewed Patient Risk: Intermediate Procedure Risk: Low Anesthetic Plan Anesthetic Plan: MAC: Disposition: Standard PACU
--- NOTE | ~2023-09-02 | XR_ITS ---
EXAMINATION: XR ABDOMEN KUB CLINICAL INDICATION: Nephrolith evaluation COMPARISON: 08/24/2023 TECHNIQUE: AP view of the abdomen. FINDINGS: There is a small oval stone overlying the mid to lower right kidney at 5.8 mm maximal length. This possibly was the stone seen in the right renal pelvis back on the CT of 08/24/2023. Previously noted calcifications in the left kidney are not observed. Bony structures intact. There is degenerative change in both hips. SI joints symmetric. XR/XR KUB IMPRESSION: Right nephrolith now overlies the mid to lower right kidney.
[2023-09-02 08:25] VITALS: BMI 33.9
[2023-09-02 08:48] VITALS: BP 144/96; PULSE 86; RESP 15; TEMP 37.1; O2SAT 96
[2023-09-02 09:13] LABS: Glucose, Whole Blood 106 mg/dL (60-115)
[2023-09-02] MEDS: Lactated Ringers 1,000 ML 999 ML IV (09:13)
--- NOTE | 2023-09-02 09:14 | PC.NURSE ---
pt stated very very difficult iv start, has needed ultrasound for iv starts. states pain with multiple iv attempts causes seizures. anesthesia texted and iv done by them with ultrasound. 2 attempts
--- NOTE | 2023-09-02 09:51 | MHC.SHP ---
Pre-Procedural Eval Section A Date of Service: 09/02/23 The patient is an INPATIENT: No Changes since office visit: No Cold of Flu in the past 2 weeks, No New Medical Problems, No Changes in Medication and No Patient answered all questions The History & Physical has been completed within 30 days and I have reviewed it.: Yes Section B Chief Complaint: Calculus of kidney Details of Present Illness: right renal stone Relevant Social History: None History of Previous Operations: No relevant previous surgery Allergies: Allergies Allergy/AdvReac Type Severity Reaction Status Date / Time fentanyl [FENTANYL] Allergy Severe CARDIAC Verified 08/25/23 21:05 ARREST levofloxacin [From LEVAQUIN] Allergy Severe ITCHING Verified 08/25/23 21:05 oxycodone [From PERCOCET] Allergy Severe HIVES Verified 08/25/23 21:05 divalproex sodium Allergy Unknown ANAPHYLAXIS Verified 08/25/23 21:05 [From DEPAKOTE] fluconazole [From DIFLUCAN] Allergy Unknown Hives Verified 09/02/23 09:51 fosphenytoin [FOSPHENYTOIN] Allergy Unknown Hives Verified 09/02/23 09:51 hydrocodone Allergy Unknown Unknown Uncoded 09/02/23 09:51 narcotics Allergy Unknown Unknown Uncoded 08/25/23 21:05 oxycodone Allergy Unknown Unknown Uncoded 08/25/23 21:05 percocet Allergy Unknown Unknown Uncoded 08/25/23 21:05 Review of Systems Sugical H&P ROS: Negative: Constitution, Cardiovascular, Respiratory, Neurological, Psychiatric, Hem-Onc, Allergic/Immunologic, Gastrointestinal, Genitourinary, Musculoskeletal, Integumentary, Endocrine and Eyes/Ears/Nose/Throat Exam Surgical H&P Exam: Normal: HEENT, Normal: Heart, Normal: Lungs, Normal: Extremities, Normal: Abdomen, Normal: Skin and Normal: Neurological Plan Diagnosis/Plan: Unchanged (right renal stone) I have reviewed the history and physical and performed a pertinent physical examination on my patient. No changes have occurred unless specified. Time Spent With Patient Time: Total time managing care of this patient today ____ minutes.
--- NOTE | 2023-09-02 10:01 | W.PM.OPN ---
Operative Note Operative Note Date of Service: 09/02/23 Narrative: PreOperative Diagnosis: right proximal Ureteric stones Post Operative Diagnosis: risght proximal Ureteric stones Procedure: right Ureteric ESWL Surgeon: Dr Fabian Red Anesthesia: mac/sedation Indications for procedure: The patient understands ESWL may be a staged procedure and subsequent intervention may be required based on imaging after ESWL. Quoted stone clearance rates for a solitary procedure are in the 70-80% range based primarily on stone location. They also understand there is a risk of bleeding to the ureter, infection, damage to adjacent organs, and stone migration following the procedure. - Imaging 9mm right proximal ureteric stone Procedure: After informed consent was verified the patient was brought to the operating room and placed in a supine position. Anesthesia was performed per protocol. Safety pause time-out was performed. Imaging was displayed in the room and laterality confirmed. Stone location confirmed with in room imaging through use of ultrasound and fluroscopy as required. Procedure optimization performed with 1 Liter of hydration using LR prior to initiation. ESWL was performed. The 1st 500 shocks were performed at 60 hertz. These were performed with increasing power. Once maximum power was reached the rate was increased to 120 hertz. A total of 3000 shocks were given. Targeted imaging with ultrasound/fluoroscopy showed stone smudging suggestive of disintegration. The patient tolerated the procedure well and was transferred to the recovery area upon completion. Post procedure imaging will be organized. There was no evidence for flank discoloration.
[2023-09-02 10:37] VITALS: BP 126/82; PULSE 85; RESP 18; TEMP 36.8; O2SAT 95
[2023-09-02 10:45] VITALS: BP 105/74; PULSE 72; RESP 16; O2SAT 95
[2023-09-02 11:00] VITALS: BP 108/74; PULSE 75; RESP 16; O2SAT 96
[2023-09-02 11:15] VITALS: BP 114/76; PULSE 70; RESP 16; TEMP 36.3; O2SAT 96
== END 2023-09-02 11:49 | disposition home or self-care (01) ==
PROVIDERS: PCP Nurse Practitioner Family; Visit Provider Urology
PROC: (CPT 50590; principal; 2023-09-02 10:10)
DX: N20.1 Calculus of ureter (principal); N20.0 Calculus of kidney; Z87.442 Personal history of urinary calculi; I10 Essential (primary) hypertension; E11.9 Type 2 diabetes mellitus without complications; J45.909 Unspecified asthma, uncomplicated; F43.10 Post-traumatic stress disorder, unspecified; R56.9 Unspecified convulsions; G47.30 Sleep apnea, unspecified; Z87.19 Personal history of other diseases of the digestive system; Z79.51 Long term (current) use of inhaled steroids; Z79.84 Long term (current) use of oral hypoglycemic drugs; Z79.899 Other long term (current) drug therapy; Z88.1 Allergy status to other antibiotic agents; Z88.5 Allergy status to narcotic agent; Z88.8 Allergy status to other drugs, medicaments and biological substances; Z86.16 Personal history of COVID-19; Z87.891 Personal history of nicotine dependence
CPT/HCPCS: 50590; 74018; 82947; J0131; J1885; J1940; J2250; J2704; J3010

== ENCOUNTER → 2023-09-02 07:59 | Outpatient (BNV) | payer OTHER, SELFPAY | PROVIDERS: PCP Nurse Practitioner Family; Visit Provider Urology | DX: N20.1 Calculus of ureter (principal) | CPT/HCPCS: 50590 ==

== ENCOUNTER 2023-10-12 07:14 | Emergency (ER) | payer OTHER, SELFPAY ==
--- NOTE | ~2023-10-12 | XR_ITS ---
EXAMINATION: XR ABDOMEN KUB CLINICAL INDICATION: Suspected kidney stones COMPARISON: CT scan 08/24/2023 TECHNIQUE: AP view of the abdomen. FINDINGS: Excess amount of stool in the colon suggests possible constipation. No evidence of obstruction. Stone seen on prior CT scan from 08/24/2023 on both side not visualized by radiograph might have passed or obscured by bowel gas.. No unusual soft tissue calcifications are noted. The bones are unremarkable. XR/XR KUB IMPRESSION: Stone seen on prior CT scan from 08/24/2023 not visualized by radiograph might have passed or obscured by bowel gas. Exam limited by Excess amount of stool in the colon suggests possible constipation.
[2023-10-12 07:18] VITALS: BP 130/85; PULSE 88; RESP 18; TEMP 36.2; O2SAT 97; BMI 33.8
--- NOTE | 2023-10-12 07:22 | ECG_ITS ---
Test Reason : cp Blood Pressure : / mmHG Vent. Rate : 084 BPM Atrial Rate : 084 BPM P-R Int : 166 ms QRS Dur : 082 ms QT Int : 354 ms P-R-T Axes : 023 004 054 degrees QTc Int : 418 ms Normal sinus rhythm Normal ECG When compared with ECG of 16-AUG-2023 14:39, QRS axis Shifted left Referred By: Generic ED Physician Electronically Signed By:CHELSI MCINTOSH
[2023-10-12 07:45] LABS: MANUAL DIFF FLAG NO
[2023-10-12 07:46] LABS: Basophils Absolute Auto 0.1 X10*3/uL (0.0-0.2); Basophils Percent Auto 0.6 % (0-2); Eosinophils Absolute Auto 0.3 X10*3/uL (0.0-0.4); Eosinophils Percent Auto 3.6 % (0-4); Hematocrit 44.4 % (42.0-52.0); Hemoglobin 14.4 g/dl (14.0-18.0); Imm Gran Abs Auto 0.03 X10*3/uL (0.00-0.03); Imm Gran Pct Auto 0.3 % (0.0-0.4); Lymphocytes Absolute Auto 2.7 X10*3/uL (1.2-4.9); Lymphocytes Percent Auto 30.6 % (20-40); Mean Corpuscular HGB Conc 32.4 g/dl (31.0-36.0); Mean Corpuscular Hemoglobin 31.5 pg (27.0-33.0); Mean Corpuscular Volume 97.2 fL (80.0-98.0); Monocytes Absolute Auto 0.6 X10*3/uL (0.1-1.2); Monocytes Percent Auto 6.6 % (2-11); Neutrophils Absolute Auto 5.1 x10*3/uL (2.0-8.3); Neutrophils Percent Auto 58.3 % (45-73); Platelet Count 197 X10*3/uL (160-400); Red Blood Count 4.57 X10*6/uL (4.60-5.80); Red Cell Distribution Width 12.5 % (11.0-16.0); White Blood Count 8.8 X10*3/uL (4.8-10.8)
[2023-10-12 07:51] LABS: Appearance Urine Clear; Color Urine Yellow; Glucose Urine UA Negative (Negative); Leukocyte Esterase Urine Negative (Negative); Nitrite Urine Negative (Negative); PH 5.5 (5.0-9.0); Urine Blood Negative (Negative); Urine Ketones Negative (Negative); Urine Protein Negative (Neg-Trace)
--- NOTE | 2023-10-12 07:53 | ED.GENADULT ---
HPI - General Adult General Chief complaint: General Medical Stated complaint: kidney back pain surgery last month Time Seen by Provider: 10/12/23 07:32 Source: patient and family () Mode of arrival: ambulatory History of Present Illness HPI narrative: 67-year-old male with history of renal colic presents with worsening right back/flank pain for the past couple of days with associated nausea and vomiting and dysuria this morning. Patient states that feels like his previous episode of renal colic for which she received intervention with passage of over 7 stones. He denies any fevers chills. Related Data Home Medications Medication Instructions Recorded Confirmed Colace 100 mg PO DAILY PRN Constipation 08/29/20 Florastor 100 mg PO BID 08/29/20 multivitamin PO DAILY 08/29/20 omeprazole 40 mg PO DAILY 08/29/20 simvastatin 80 mg tablet 40 mg PO BEDTIME 08/29/20 metformin 500 mg tablet 500 mg PO BID 09/02/23 09/02/23 Previous Rx's Medication Instructions Recorded albuterol sulfate 90 mcg/actuation 2 puff inhalation Q4-6H PRN 08/29/20 aerosol inhaler shortness of breath or wheezing #6.7 grams epinephrine 0.3 mg/0.3 mL 0.3 mg (0.3 mL) IM Q10M PRN 03/15/21 injection, auto-injector (EpiPen anaphylaxis #2 ea 2-Deacon) famotidine 20 mg tablet (Pepcid AC) 20 mg PO BID 3 days #6 tabs 03/15/21 morphine 15 mg immediate release 15 mg PO Q8H PRN pain #15 tabs 08/24/23 tablet ondansetron 4 mg disintegrating 4 mg PO Q6-8H PRN nausea and 08/24/23 tablet vomiting #7 tabs naproxen 500 mg tablet 500 mg PO BID PRN pain 7 days #14 09/02/23 tabs phenazopyridine 100 mg tablet 100 mg PO TID PRN Spasm 4 days #12 09/02/23 (Pyridium) tabs tamsulosin 0.4 mg capsule 0.4 mg PO BEDTIME 14 days #14 caps 09/02/23 ondansetron 4 mg disintegrating 4 mg PO Q8H PRN nausea and 10/12/23 tablet vomiting 4 days #14 tabs tamsulosin 0.4 mg capsule (Flomax) 0.4 mg PO BEDTIME 5 days #5 caps 10/12/23 Allergies Allergy/AdvReac Type Severity Reaction Status Date / Time fentanyl [FENTANYL] Allergy Severe CARDIAC Verified 10/12/23 07:17 ARREST levofloxacin [From LEVAQUIN] Allergy Severe ITCHING Verified 10/12/23 07:17 oxycodone [From PERCOCET] Allergy Severe HIVES Verified 10/12/23 07:17 divalproex sodium Allergy Unknown ANAPHYLAXIS Verified 10/12/23 07:17 [From DEPAKOTE] fluconazole [From DIFLUCAN] Allergy Unknown Hives Verified 10/12/23 07:17 fosphenytoin [FOSPHENYTOIN] Allergy Unknown Hives Verified 10/12/23 07:17 hydrocodone Allergy Unknown Unknown Uncoded 09/02/23 09:51 narcotics Allergy Unknown Unknown Uncoded 08/25/23 21:05 oxycodone Allergy Unknown Unknown Uncoded 08/25/23 21:05 percocet Allergy Unknown Unknown Uncoded 08/25/23 21:05 Review of Systems Review of Systems: Pertinent positives and negatives as stated in [facility]PI [facility] Past Medical History Source: nursing notes reviewed Medical History Sleep apnea Asthma DMII (diabetes mellitus, type 2) GERD (gastroesophageal reflux disease) Diverticulitis PTSD (post-traumatic stress disorder) Seizures Hypertension Surgical History Hx of elbow surgery Hx of appendectomy Hx of umbilical hernia repair Hx of laparoscopy Social History Social History Alcohol intake: never Patient Tobacco Use Status: Former Tobacco user Quit Date: 16 yrs ago Smoked in Last 30 Days: No Use of substances other than those prescribed or required for medical reasons: Yes Substance Use Type: Marijuana Advance Directives: No Advance Directives Information Provided: Yes Physical Exam ED Vital Signs: Vital Signs - 24 hr 10/12/23 07:18 10/12/23 09:38 Temperature 97.2 F Pulse Rate 88 75 Respiratory Rate 18 16 Blood Pressure 130/85 134/91 H Pulse Oximetry 97 96 Oxygen Delivery Method Room Air Room Air BMI result Body Mass Index 33.8 VITAL SIGNS: Reviewed. GENERAL: Well developed, well nourished, in no acute distress. HEAD: Normocephalic/atraumatic EYES: PERRLA, EOMI EARS: Ext canals without abnormality NOSE: Nares patent bilateral OROPHARYNX: no oral lesions noted, posterior pharynx clear NECK: Supple, no adenopathy LUNGS: Normal breath sounds. No adventitious sounds or accessory muscle use. SpO2<97> CARDIOVASCULAR: Regular rate and rhythm without noted murmurs ABDOMEN: Soft, non-tender, non-distended with bowel sounds. MUSCULOSKELETAL: No tenderness, deformities, or effusions noted on gross inspection. EXTREMITIES: No cyanosis, clubbing or edema. SKIN: Inspection of the skin reveals no rashes NEUROLOGIC: Alert and oriented x 4. Strength and sensation to light touch were grossly intact x 4. Medications Administered Discontinued Medications Generic Name Dose Route Start Last Admin Trade Name Freq PRN Reason Stop Dose Admin Sodium Chloride 1,000 mls @ 999 mls/hr 10/12/23 08:00 10/12/23 09:32 Ns IV 10/12/23 09:00 999 mls/hr .Q1H1M RUI Administration Ketorolac Tromethamine 15 mg 10/12/23 07:59 10/12/23 09:32 Ketorolac Tromethamine 30 Mg/Ml Vial IVPUSH 10/12/23 08:00 15 mg ONCE ONE Administration Ondansetron HCl 4 mg 10/12/23 07:59 10/12/23 09:33 Ondansetron Hcl 4 Mg/2 Ml Vial IVPUSH 10/12/23 08:00 4 mg ONCE ONE Administration Medical Decision Making Medical Decision Making [facility] Narrative: 67-year-old male with history and clinical presentation, DDX: Renal colic, low clinical suspicion for cholecystitis or pyelonephritis, possible urinary tract infection doubt diverticulitis or other intra-abdominal infections. I reviewed all investigations and hematologic indices are negative for leukocytosis or left shift and there is no anemia or thrombocytopenia. Chemistry indices are negative for HYACINTH/electrolyte derangements. High sensitivity troponin is undetectable and there are no acute changes on EKG. Urinalysis is negative for UTI or hematuria. KUB is negative for identification of radio opaque stone. After patient received IV fluids and pain medication he is feeling much improved and will be discharged on Zofran and Flomax. Patient already has a follow-up appointment with Urology. Differential Diagnosis Differential Diagnoses: The differential diagnosis associated with the presentation includes Please see the discussion above Admission/Observation Consideration of admission/observation: Escalation of care including admission/observation considered Please see the discussion above Lab Data MDM Lab Attestation statement: I reviewed the patient's lab results. Please see the discussion above 10/12/23 07:41 10/12/23 07:41 Labs: Lab Results 10/12/23 Range/Units 07:41 WBC 8.8 (4.8-10.8) X10*3/uL RBC 4.57 L (4.60-5.80) X10*6/uL Hgb 14.4 (14.0-18.0) g/dl Hct 44.4 (42.0-52.0) % MCV 97.2 (80.0-98.0) fL MCH 31.5 (27.0-33.0) pg MCHC 32.4 (31.0-36.0) g/dl RDW 12.5 (11.0-16.0) % Plt Count 197 (160-400) X10*3/uL MPV 9.0 L (9.4-12.4) fL Immature Gran % (Auto) 0.3 (0.0-0.4) % Neut % (Auto) 58.3 (45-73) % Lymph % (Auto) 30.6 (20-40) % [place] % (Auto) 6.6 (2-11) % Eos % (Auto) 3.6 (0-4) % Baso % (Auto) 0.6 (0-2) % Lymph # (Auto) 2.7 (1.2-4.9) X10*3/uL [place] # (Auto) 0.6 (0.1-1.2) X10*3/uL Eos # (Auto) 0.3 (0.0-0.4) X10*3/uL Baso # (Auto) 0.1 (0.0-0.2) X10*3/uL Abs Immat Gran (auto) 0.03 (0.00-0.03) X10*3/uL Absolute Neuts (auto) 5.1 (2.0-8.3) x10*3/uL Absolute Nucleated RBC 0.000 (0.0-0.012) X10*3/uL Nucleated RBC % (auto) 0.0 (0.0-0.2) /100WBC Sodium 141 (135-145) mmol/L Potassium 4.1 (3.3-5.1) mmol/L Chloride 109 H (96-108) mmol/L Carbon Dioxide 20 L (22-29) mmol/L Anion Gap 16 (12-20) BUN 17 H (9-16) mg/dL Creatinine 0.94 (0.5-1.4) mg/dL Estim Creat Clear Calc 83.4 Estimated GFR > 60 Random Glucose 144 H (60-115) mg/dL Calcium 9.5 (8.4-10.2) mg/dL Troponin I High Sens < 2.7 (<3.5-35.0) ng/L Urine Color Yellow Urine Appearance Clear Urine pH 5.5 (5.0-9.0) Ur Specific [place] 1.020 (1.005-1.025) Urine Protein Negative (Neg-Trace) mg/dL Urine Glucose (UA) Negative (Negative) mg/dL Urine Ketones Negative (Negative) mg/dL Urine Blood Negative (Negative) Urine Nitrite Negative (Negative) Ur Leukocyte Esterase Negative (Negative) Urine RBC 0-2 (0-2) /HPF Urine WBC 0-5 (0-5) /HPF Ur Squamous Epith Cells 0-2 (0-2) /HPF Urine Bacteria None Seen (None Seen) Hyaline Casts 0-2 (0-2) /LPF Independent Interpretation I performed an independent interpretation of an: EKG Interpretation: Normal sinus rhythm, HR-84, no STEMI, ID/QRS/QTC is within normal limits. Radiology Impression Discussion of test interpretation with radiology: I have reviewed the radiologist's reading. Radiologist Impression: Please see the discussion above External Record Review External record reviewed: Office record, Outpatient record, Prior outpatient labs and Prior outpatient radiology Chronic Conditions Patient?s care impacted by: Diabetes Critical Care Time Critical Care Time Critical Care Time: Yes Total Critical Care Time: 30 Attestation: I personally attest to this time spent taking care of the patient. Discharge Plan Discharge Clinical Impression: Flank pain, Renal colic Patient Disposition: Home, Self-Care Instructions: Renal Colic (ED), Flank Pain (ED) Additional Instructions: 1. Resume all home medications as prescribed. 2. You have been given a prescription for antinausea medication as well as Flomax to help facilitate any passage of smaller stones. 3. Please follow-up with Dr. Red as scheduled. Return to the ER for any worsening symptoms. Prescriptions: New tamsulosin [Flomax] 0.4 mg capsule 0.4 mg PO BEDTIME 5 Days Qty: 5 0RF ondansetron 4 mg tablet,disintegrating 4 mg PO Q8H PRN (Reason: nausea and vomiting) 4 Days Qty: 14 0RF No Action simvastatin 80 mg tablet 40 mg PO BEDTIME Colace 100 mg PO DAILY PRN (Reason: Constipation) Florastor 100 mg PO BID multivitamin PO DAILY omeprazole 40 mg PO DAILY albuterol sulfate 90 mcg/actuation HFA aerosol inhaler 2 puff inhalation Q4-6H PRN (Reason: shortness of breath or wheezing) Qty: 6.7 0RF famotidine [Pepcid AC] 20 mg tablet 20 mg PO BID 3 Days Qty: 6 0RF Rx Instructions: Anaphylaxis epinephrine [EpiPen 2-Deacon] 0.3 mg/0.3 mL auto-injector 0.3 mg IM Q10M PRN (Reason: anaphylaxis) Qty: 2 0RF Rx Instructions: for 2 doses metformin 500 mg Tablet 500 mg PO BID tamsulosin 0.4 mg capsule 0.4 mg PO BEDTIME 14 Days Qty: 14 0RF phenazopyridine [Pyridium] 100 mg tablet 100 mg PO TID PRN (Reason: Spasm) 4 Days Qty: 12 0RF naproxen 500 mg tablet 500 mg PO BID PRN (Reason: pain) 7 Days Qty: 14 0RF morphine 15 mg tablet 15 mg PO Q8H PRN (Reason: pain) Qty: 15 0RF Rx Instructions: Partial Fill upon patient request. ondansetron 4 mg tablet,disintegrating 4 mg PO Q6-8H PRN (Reason: nausea and vomiting) Qty: 7 0RF Referrals: Fabian Red MD [Physician] - Bere Rios NP [Primary Care Provider] -
[2023-10-12 07:56] LABS: Bacteria Urine None Seen (None Seen); Hyaline Casts Urine 0-2 /LPF (0-2); RBC Urine 0-2 /HPF (0-2); Squamous Epithelial Cell Urine 0-2 /HPF (0-2); WBC Urine 0-5 /HPF (0-5)
[2023-10-12 08:02] LABS: Anion Gap 16 (12-20); Blood Urea Nitrogen 17 mg/dL (9-16); Calcium 9.5 mg/dL (8.4-10.2); Carbon Dioxide 20 mmol/L (22-29); Chloride 109 mmol/L (96-108); Creatinine Clr Calc Pharmacy 83.4; Estimated Glomerular Filt Rate > 60; Glucose Random 144 mg/dL (60-115); Potassium 4.1 mmol/L (3.3-5.1); Sodium 141 mmol/L (135-145)
--- NOTE | 2023-10-12 08:19 | PC.NURSE ---
pt a&o x4, pleasant, calm, and cooperative. at bedside. labs drawn and sent. attempted IV, no success. pt difficult stick. pt resting quietly on stretcher, appears and sts he's in pain. MD aware of pt difficulty for access. will reevaluate. rr even/unlabored. call harrison within reach. plan of care ongoing.
--- NOTE | 2023-10-12 08:37 | PC.NURSE ---
RUPERTO narvaez also attempted IV in pt with no success. pt to xray. will attempt ultrasound IV when pt arrives back.
--- NOTE | 2023-10-12 08:46 | PC.NURSE ---
RUPERTO Joiner to attempt ultrasound IV.
[2023-10-12 08:47] LABS: Troponin-I High Sensitivity < 2.7 ng/L (<3.5-35.0)
[2023-10-12] MEDS: 0.9 % Sodium Chloride 1,000 ML 999 ML IV (09:32)
[2023-10-12] MEDS: Ketorolac Tromethamine 30 MG/ML VIAL 15 MG IVPUSH (09:32)
[2023-10-12] MEDS: ondansetron HCL 4 MG/2 ML VIAL IVPUSH (09:33)
--- NOTE | 2023-10-12 09:35 | PC.NURSE ---
22G ultrasound IV placed to LAC by RUPERTO Joiner. fluids hung and pt medicated per mar. currently resting quietly on stretcher with at bedside.
[2023-10-12 09:38] VITALS: BP 134/91; PULSE 75; RESP 16; O2SAT 96
== END 2023-10-12 10:54 | disposition home or self-care (01) ==
PROVIDERS: Emergency Provider Student in an Organized Health Care Education/Training Program; PCP Nurse Practitioner Family
DX: N23 Unspecified renal colic (principal); I10 Essential (primary) hypertension; E11.9 Type 2 diabetes mellitus without complications; Z87.442 Personal history of urinary calculi
CPT/HCPCS: 36415; 74018; 80048; 81001; 84484; 85025; 93005; 96361; 96374; 96375; 99284; 99285; J1885; J2405

== ENCOUNTER → 2023-10-12 07:22 | Outpatient (BNV) | payer OTHER, SELFPAY | PROVIDERS: Emergency Provider Student in an Organized Health Care Education/Training Program; PCP Nurse Practitioner Family; Visit Provider Internal Medicine | DX: R07.9 Chest pain, unspecified (principal) | CPT/HCPCS: 93010 ==

== ENCOUNTER 2023-11-12 08:21 | Outpatient (REF) | payer OTHER, SELFPAY ==
--- NOTE | ~2023-11-12 | US_ITS ---
EXAMINATION: US RETROPERITONEAL LIMITED (RENAL ONLY) CLINICAL INFORMATION: Calculus of kidney. COMPARISON: X-ray KUB 10/12/2023 and 09/02/2023. CT abdomen and pelvis 08/24/2023. TECHNIQUE: Real-time imaging of the kidneys. FINDINGS: RIGHT KIDNEY: 12.9 x 5.3 x 5.7 cm (SAG x AP x TRV). The kidney is normal in size, contour, and echogenicity. Renal cortical thickness is normal. No calculi or focal parenchymal lesions. No hydronephrosis. LEFT KIDNEY: 13.7 x 4.7 x 5.5 cm (SAG x AP x TRV). The kidney is normal in size, contour, and echogenicity. Renal cortical thickness is normal. No focal parenchymal lesions or hydronephrosis. 9 mm nonobstructing mid pole renal stone, previously 7 mm. US/US renal BI IMPRESSION: A 9 mm nonobstructing left mid pole renal stone, slightly increased in size from prior.
== END 2023-11-12 08:22 | disposition home or self-care (01) ==
LOC: HO.HMGCX 08:21
PROVIDERS: PCP Nurse Practitioner Family; Visit Provider Urology
DX: N20.0 Calculus of kidney (principal)
CPT/HCPCS: 76775

== ENCOUNTER 2023-11-24 13:49 | Outpatient (AMB) | payer OTHER, SELFPAY ==
--- NOTE | 2023-11-24 14:30 | MHC.OFFVIS ---
Intake Intake Visit Reasons: Post Op US(set) Intake Note: Patient is Present for Follow Up Ultrasound Urology Medication: Tamsulosin Antibiotic Allergies: Levofloxacin Blood Thinners: None Allergies fentanyl [FENTANYL] Allergy (Severe, Verified 11/24/23 14:34) CARDIAC ARREST levofloxacin [From LEVAQUIN] Allergy (Severe, Verified 11/24/23 14:34) ITCHING oxycodone [From PERCOCET] Allergy (Severe, Verified 11/24/23 14:34) HIVES divalproex sodium [From DEPAKOTE] Allergy (Unknown, Verified 11/24/23 14:34) ANAPHYLAXIS fluconazole [From DIFLUCAN] Allergy (Unknown, Verified 11/24/23 14:34) Hives fosphenytoin [FOSPHENYTOIN] Allergy (Unknown, Verified 11/24/23 14:34) Hives hydrocodone Allergy (Unknown, Uncoded 11/24/23 14:34) Unknown narcotics Allergy (Unknown, Uncoded 11/24/23 14:34) Unknown oxycodone Allergy (Unknown, Uncoded 11/24/23 14:34) Unknown percocet Allergy (Unknown, Uncoded 11/24/23 14:34) Unknown HPI HPI Comments History of Present Illness Details Javier is a very pleasant male. He is a patient of Dr. Rios. He is seen for the following urologic conditions - nephrolithiasis Review of imaging Successful clearance of stone on right side - did have visit to emergency room during stone passage He would like to move ahead with ESWL of left side Once stones were addressed would like to move ahead with 24 hour urine and stone lab investigation Nephrolithiasis Bilateral stone formation Imaging - 08/10 CT Bilateral nonobstructing renal calculi. The largest on the right measures 9 mm. The largest on the left measures 4 mm - 11/11 renal ultrasound stone left side. Intervention - 11/11 Right ESWL PFSH Medical History Sleep apnea Asthma DMII (diabetes mellitus, type 2) GERD (gastroesophageal reflux disease) Diverticulitis PTSD (post-traumatic stress disorder) Seizures Hypertension Surgical History Hx of elbow surgery Hx of appendectomy Hx of umbilical hernia repair Hx of laparoscopy Social History Alcohol intake: never Patient Tobacco Use Status: Former Tobacco user Quit Date: 16 yrs ago Substance Use Type: Marijuana Review of Systems Const Denies chills and Denies fever(s) Card Reports no additional complaints and Denies syncope Resp Denies cough GI Denies abdominal pain and Denies heartburn Reports as per HPI and Denies change in libido Neuro Denies syncope Psych Denies change in libido Endo Denies change in libido Physical Exam Const General: cooperative, healthy appearing, comfortable and no acute distress Orientation/consciousness: patient oriented x3 HEENT Face and sinus: Yes normal facial exam Mouth: moist mucous membranes Neck Neck: Yes normal visual inspection, Yes full ROM and Yes trachea midline Chest Chest palpation & inspection: normal inspection of the chest Resp Effort & Inspection: normal respiratory effort, able to speak in complete sentences and no respiratory distress GI Inspection: Yes normal to inspection Back/Spine/Pelvis Cervical Spine: normal cervical lordosis Thoracic/Lumbar Spine: thoracic and lumbar spine normal to inspection Skin General skin exam: no rashes or lesions noted Neuro General: patient oriented x3, gait normal, tone normal and moves all extremities Extrem General: Yes normal to inspection and Yes capillary refill normal Assessment & Plan Assessment & Plan (1) Nephrolithiasis: Code(s): N20.0 - Calculus of kidney Plan ESWL Extracorporeal Shock Wave Lithotripsy We discussed the nature of the decision and reasonable alternatives for performing the above surgery. Interventions include chemical dissolution, ESWL, ureteroscopy with laser lithotripsy and stent placement, PCNL. Options such as medical therapy were discussed. The relative uncertainties and benefits related to each alternate procedure were adequately discussed. General surgical risks including, but not limited to, pain, bleeding, infection, myocardial infarction, pulmonary embolus, deep vein thrombosis and cerebrovascular accident which may result in further hospitalization were discussed. Full disclosure of the procedure as well as all major risks, benefits and complications were discussed including but not limited to risks of bleeding, injury to the kidney with hematoma or goldie-hematoma, failure to fragments stone, potential for ureteric obstruction from stone passage and need for secondary procedures. There is a small long-term risk of hypertension and a question jacob of diabetes. Success rate of fragmentation and passage is approximately 70- 75%. This is compared to the risks and benefits for ureteroscopy which has a higher success rate but is a more invasive procedure. The success rate of the procedure was discussed. Success of the procedure in the short-term does not necessarily guarantee that long-term success will be maintained. Suitable follow up will need to be maintained. The patient showed understanding of the discussion as well as the typical recovery time, and the outpatient nature of this procedure. Opportunity was given for questions. Repeat-back protocol used to confirm understanding. They wish to proceed with left ESWL Patient Instructions: Imaging studies, laboratory and physical exam results were discussed and reviewed in detail. No major barriers to patient understanding were identified. An opportunity to ask questions regarding the treatment plan was provided. All questions were answered. The patient expressed understanding and agreement with the above treatment plan. The patient is aware they should contact our office by phone for worsening of their current condition or the appearance of new urologic symptoms. Compliance is encouraged with any medications and followup testing that is ordered. It is a privilege to participate in the urologic care of your patient. If you have any questions or concerns regarding treatment for the above conditions, or other urologic issues, please do not hesitate to contact me. The office telephone contact is [phone]. This note is constructed using voice recognition software. 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 Yours sincerely, Dr Fabian Red MD, [facility] - Urology Providers of Expert, Compassionate Care for the Genitourinary System Coding Level of Care Code Est Pt Level 4 (87426) Diagnoses Nephrolithiasis N20.0
== END 2023-11-24 14:42 | disposition home or self-care (01) ==
PROVIDERS: PCP Nurse Practitioner Family; Visit Provider Urology
DX: N20.0 Calculus of kidney (principal)
CPT/HCPCS: 99214

== ENCOUNTER → 2023-11-24 13:49 | Outpatient (BNVA) | payer OTHER, SELFPAY | PROVIDERS: PCP Nurse Practitioner Family; Visit Provider Urology | DX: N20.0 Calculus of kidney (principal) | CPT/HCPCS: 99212 ==

== ENCOUNTER 2024-01-06 08:00 | Day surgery (SDC) | payer OTHER, SELFPAY ==
--- NOTE | 2024-01-05 11:00 | HO.ANESPROP2 ---
Documented by User: Margie Mcginnis NP 01/05/24 11:01 HPI - Anesthesia Eval Consult details Narrative: 68yo M for Left Lithotripsy ESW s/p same 08/2023 with MAC PMF Active Problems Active Problems: All Active Problems (Updated 10/13/23 @ 00:01 by Background Abdi) Flank pain (Acute) Nephrolithiasis (Acute) Rotator cuff tear (Acute) Past Medical History Medical History (Updated 01/06/24 @ 10:59 by Silvina Grover MD) Sleep apnea Asthma DMII (diabetes mellitus, type 2) GERD (gastroesophageal reflux disease) Diverticulitis PTSD (post-traumatic stress disorder) Seizures Hypertension Surgical History Surgical History Hx of lithotripsy Hx of elbow surgery Hx of appendectomy Hx of umbilical hernia repair Hx of laparoscopy History of Problems with Anesthesia: No Social History Social History Alcohol intake: never Patient Tobacco Use Status: Former Tobacco user Quit Date: 22 yrs ago Use of substances other than those prescribed or required for medical reasons: Yes Substance Use Type: Marijuana Substance Use Type Other:: medical tincture for sz Are you DNR?: No Advance Directives: No Advance Directives Information Provided: Yes Meds Allergies Allergy/AdvReac Type Severity Reaction Status Date / Time fentanyl [FENTANYL] Allergy Severe CARDIAC Verified 11/24/23 14:34 ARREST levofloxacin [From LEVAQUIN] Allergy Severe ITCHING Verified 11/24/23 14:34 oxycodone [From PERCOCET] Allergy Severe HIVES Verified 11/24/23 14:34 divalproex sodium Allergy Unknown ANAPHYLAXIS Verified 11/24/23 14:34 [From DEPAKOTE] fluconazole [From DIFLUCAN] Allergy Unknown Hives Verified 11/24/23 14:34 fosphenytoin [FOSPHENYTOIN] Allergy Unknown Hives Verified 11/24/23 14:34 hydrocodone Allergy Unknown Unknown Uncoded 11/24/23 14:34 oxycodone Allergy Unknown Unknown Uncoded 11/24/23 14:34 percocet Allergy Unknown Unknown Uncoded 11/24/23 14:34 Home Medications Medication Instructions Recorded Confirmed Last Taken Type Colace 100 mg PO DAILY PRN Constipation 08/29/20 Unknown History Florastor 100 mg PO BID 08/29/20 Unknown History multivitamin PO DAILY 08/29/20 Unknown History omeprazole 40 mg PO DAILY 08/29/20 Unknown History simvastatin 80 mg tablet 40 mg PO BEDTIME 08/29/20 Unknown History metformin 500 mg tablet 500 mg PO BID 09/02/23 09/02/23 Unknown History Assessment and Plan Assessment Anesthesia Assessment: Chart Reviewed Final Anesthetic Review History of Problems with Anesthesia: No Documented by User: Silvina Grover MD 01/06/24 11:03 [facility] Active Problems Active Problems: All Active Problems (Updated 01/06/24 @ 10:53 by Silvina Grover MD) Flank pain (Acute) Nephrolithiasis (Acute) Rotator cuff tear (Acute) Past Medical History Medical History (Updated 01/06/24 @ 10:59 by Silvina Grover MD) Sleep apnea Asthma DMII (diabetes mellitus, type 2) GERD (gastroesophageal reflux disease) Diverticulitis PTSD (post-traumatic stress disorder) Seizures Hypertension Family History Family history of problems with anesthesia: No Surgical History Surgical History Hx of lithotripsy Hx of elbow surgery Hx of appendectomy Hx of umbilical hernia repair Hx of laparoscopy History of Problems with Anesthesia: No (H/o ?difficult IV) Social History Social History Alcohol intake: never Patient Tobacco Use Status: Former Tobacco user Quit Date: 22 yrs ago Use of substances other than those prescribed or required for medical reasons: Yes Substance Use Type: Marijuana Substance Use Type Other:: medical tincture for sz Are you DNR?: No Advance Directives: No Advance Directives Information Provided: Yes Meds Allergies Allergy/AdvReac Type Severity Reaction Status Date / Time fentanyl [FENTANYL] Allergy Severe CARDIAC Verified 11/24/23 14:34 ARREST levofloxacin [From LEVAQUIN] Allergy Severe ITCHING Verified 11/24/23 14:34 oxycodone [From PERCOCET] Allergy Severe HIVES Verified 11/24/23 14:34 divalproex sodium Allergy Unknown ANAPHYLAXIS Verified 11/24/23 14:34 [From DEPAKOTE] fluconazole [From DIFLUCAN] Allergy Unknown Hives Verified 11/24/23 14:34 fosphenytoin [FOSPHENYTOIN] Allergy Unknown Hives Verified 11/24/23 14:34 hydrocodone Allergy Unknown Unknown Uncoded 11/24/23 14:34 oxycodone Allergy Unknown Unknown Uncoded 11/24/23 14:34 percocet Allergy Unknown Unknown Uncoded 11/24/23 14:34 Home Medications Medication Instructions Recorded Confirmed Last Taken Type Colace 100 mg PO DAILY PRN Constipation 08/29/20 Unknown History Florastor 100 mg PO BID 08/29/20 Unknown History multivitamin PO DAILY 08/29/20 Unknown History omeprazole 40 mg PO DAILY 08/29/20 Unknown History simvastatin 80 mg tablet 40 mg PO BEDTIME 08/29/20 Unknown History metformin 500 mg tablet 500 mg PO BID 09/02/23 09/02/23 Unknown History Exam Height,Weight and Vital Signs: Height 5 ft 6 in Weight 96.615 kg Vital Signs Temp Pulse Resp BP Pulse Ox O2 Del Method 01/06/24 09:56 98.1 F 83 15 125/90 H 96 Room Air Pertinent Lab Results Pertinent Lab Results: Lab Results 01/06/24 Range/Units 09:54 POC Glucose 115 (60-115) mg/dL Airway Mallampati Class: III TM Dist: >3cm Neck ROM: Full Denture: Upper Partial: Lower Loose/Missing/Broken Teeth: Yes (Some teeth bottom. Denies broken or loose teeth) Heart: RRR Lungs: CTAB Assessment and Plan Assessment Anesthesia Assessment: Anesthesia Plan Discussed and Chart Reviewed Final Anesthetic Review Family History of Problems with Anesthesia: No History of Problems with Anesthesia: No (H/o ?difficult IV) NPO: Yes ASA Class: III Final Preanesthetic Review: No Changes in Pt Med Stat, Meds/Allgs Chart Reviewed, Consent Obtained/Reviewed and Anes Risks/Benef Reviewed Patient Risk: Intermediate Procedure Risk: Low Assessment/Block/Sedation in SS: Assess/Block/Sedation-SS Anesthetic Plan Anesthetic Plan: MAC: and TIVA Disposition: Standard PACU
--- NOTE | ~2024-01-06 | XR_ITS ---
EXAMINATION: XR ABDOMEN KUB CLINICAL INDICATION: Left renal stone COMPARISON: Ultrasound renal from 11/07/2023, KUB radiograph from 10/12/2023 TECHNIQUE: AP view of the abdomen. FINDINGS: A few subtle rounded densities are noted overlying the left renal interpolar region measuring up to 5 mm which may reflect renal calculi versus fecal material. No radiopaque calcifications overlying the right renal shadow or ureteral paths. Bowel gas is nonobstructive. Degenerative changes of the thoracolumbar spine and bilateral femoral acetabular joints. Visualized portions of the lower chest are unremarkable. Atherosclerotic calcifications are noted. XR/XR KUB IMPRESSION: 1. A few subtle rounded densities are noted overlying the left renal interpolar region measuring up to 5 mm which may reflect renal calculi versus fecal material. 2. No radiopaque calcifications overlying the right renal shadow or ureteral paths. 3. Bowel gas is nonobstructive. 4. Degenerative changes of the thoracolumbar spine and bilateral femoral acetabular joints.
[2024-01-06 09:44] VITALS: BMI 34.4
[2024-01-06 09:56] VITALS: BP 125/90; PULSE 83; RESP 15; TEMP 36.7; O2SAT 96
[2024-01-06 10:01] LABS: Glucose, Whole Blood 115 mg/dL (60-115)
[2024-01-06] MEDS: Lactated Ringers 1,000 ML 999 ML IV (10:48)
[2024-01-06] MEDS: Acetaminophen 1,000 MG/100 ML PIGGYBACK 400 MG IV (10:49)
--- NOTE | 2024-01-06 10:54 | P.HPSUR_ITS ---
Pre-Procedural Eval Section A - 24 Hr Update-Section A only Date of Service: 01/06/24 The patient is an INPATIENT: No Changes since office visit: No Cold of Flu in the past 2 weeks, No New Medical Problems, No Changes in Medication and No Patient answered all questions The patient has been examined within 24 hours of the surgical procedure. The History & Physical has been completed within 30 days and I have reviewed it.: Yes Section B - Complete if H&P > 30 days Chief Complaint: Calculus of kidney Relevant Social History: None Present Medications: see Short Stay Collaborative assessment Medical History: Significant History History of Previous Operations: Relevant previous surgery/procedure and date(s) Allergies: Allergies Allergy/AdvReac Type Severity Reaction Status Date / Time fentanyl [FENTANYL] Allergy Severe CARDIAC Verified 11/24/23 14:34 ARREST levofloxacin [From LEVAQUIN] Allergy Severe ITCHING Verified 11/24/23 14:34 oxycodone [From PERCOCET] Allergy Severe HIVES Verified 11/24/23 14:34 divalproex sodium Allergy Unknown ANAPHYLAXIS Verified 11/24/23 14:34 [From DEPAKOTE] fluconazole [From DIFLUCAN] Allergy Unknown Hives Verified 11/24/23 14:34 fosphenytoin [FOSPHENYTOIN] Allergy Unknown Hives Verified 11/24/23 14:34 hydrocodone Allergy Unknown Unknown Uncoded 11/24/23 14:34 oxycodone Allergy Unknown Unknown Uncoded 11/24/23 14:34 percocet Allergy Unknown Unknown Uncoded 11/24/23 14:34 Review of Systems Sugical H&P ROS: Negative: Constitution, Cardiovascular, Respiratory, Neurological, Psychiatric, Hem-Onc, Allergic/Immunologic, Gastrointestinal, Dionna tourinary, Musculoskeletal, Integumentary, Endocrine and Eyes/Ears/Nose/Throat Exam Surgical H&P Exam: Normal: HEENT, Normal: Heart, Normal: Lungs, Normal: Extremities, Normal: Abdomen, Normal: Skin and Normal: Neurological Plan Diagnosis/Plan: Unchanged (left eswl) I have reviewed the history and physical and performed a pertinent physical examination on my patient. No changes have occurred unless specified. Time Spent With Patient Time: Total time managing care of this patient today ____ minutes.
--- NOTE | 2024-01-06 11:45 | W.PM.OPN ---
Operative Note Operative Note Date of Service: 01/06/24 Narrative: PreOperative Diagnosis: left Renal stones Post Operative Diagnosis: left Renal stones Procedure: left ESWL Surgeon: Dr Fabian Red Anesthesia: mac/sedation Indications for procedure: The patient understands ESWL may be a staged procedure and subsequent intervention may be required based on imaging after ESWL. Quoted stone clearance rates for a solitary procedure are in the 70-80% range based primarily on stone location. They also understand there is a risk of bleeding to the kidney, infection, damage to adjacent organs, and stone migration following the procedure. - Imaging 6mm Procedure: After informed consent was verified the patient was brought to the operating room and placed in a supine position. Anesthesia was performed per protocol. Safety pause time-out was performed. Imaging was displayed in the room and laterality confirmed. ESWL was performed. The 1st 500 shocks were performed at 60 hertz. These were performed with increasing power. Once maximum power was reached the rate was increased to 180 hertz. A total of 2500 shocks were given. Targeted imaging with ultrasound/fluoroscopy showed stone smudging suggestive of disintegration. The patient tolerated the procedure well and was transferred to the recovery area upon completion. Post procedure imaging will be organized. There was no evidence for flank discoloration.
[2024-01-06 11:55] VITALS: BP 112/75; PULSE 75; RESP 15; TEMP 36.1; O2SAT 97
[2024-01-06 12:00] VITALS: BP 116/77; PULSE 78; RESP 14; O2SAT 97
[2024-01-06 12:05] VITALS: BP 124/87; PULSE 72; RESP 14; O2SAT 95
[2024-01-06 12:10] VITALS: BP 104/73; PULSE 74; RESP 15; O2SAT 96
[2024-01-06] MEDS: Phenazopyridine HCL 100 MG TABLET PO (12:19)
[2024-01-06 12:25] VITALS: BP 119/89; PULSE 74; RESP 15; TEMP 36.1; O2SAT 96
== END 2024-01-06 13:00 | disposition home or self-care (01) ==
PROVIDERS: PCP Nurse Practitioner Family; Visit Provider Urology
PROC: (CPT 50590; principal; 2024-01-06 10:50)
DX: N20.0 Calculus of kidney (principal); I10 Essential (primary) hypertension; E11.9 Type 2 diabetes mellitus without complications; J45.909 Unspecified asthma, uncomplicated; K21.9 Gastro-esophageal reflux disease without esophagitis; G47.30 Sleep apnea, unspecified; R56.9 Unspecified convulsions; Z79.84 Long term (current) use of oral hypoglycemic drugs; Z79.899 Other long term (current) drug therapy; Z88.5 Allergy status to narcotic agent; Z88.8 Allergy status to other drugs, medicaments and biological substances; Z87.891 Personal history of nicotine dependence
CPT/HCPCS: 50590; 74018; 82947; J0131; J1940; J2250; J2704

== ENCOUNTER → 2024-01-06 08:00 | Outpatient (BNV) | payer OTHER, SELFPAY | PROVIDERS: PCP Nurse Practitioner Family; Visit Provider Urology | DX: N20.0 Calculus of kidney (principal) | CPT/HCPCS: 50590 ==

== ENCOUNTER 2024-02-16 08:24 | Outpatient (REF) | payer OTHER, SELFPAY ==
--- NOTE | ~2024-02-16 | US_ITS ---
EXAMINATION: US RETROPERITONEAL LIMITED (RENAL ONLY) CLINICAL INFORMATION: Calculus of kidney. COMPARISON: Renal ultrasound 11/12/2023. TECHNIQUE: Real-time imaging of the kidneys. FINDINGS: RIGHT KIDNEY: 12.1 x 4.4 x 5.8 cm (SAG x AP x TRV). The kidney is normal in size, contour, and echogenicity. Renal cortical thickness is normal. No calculi or focal parenchymal lesions. No hydronephrosis. LEFT KIDNEY: 14.0 x 4.8 x 5.0 cm (SAG x AP x TRV). The kidney is normal in size, contour, and echogenicity. Renal cortical thickness is normal. No focal parenchymal lesions or hydronephrosis. 9 mm nonobstructing calculus in the mid kidney. US/US renal BI IMPRESSION: 9 mm nonobstructing calculus in the mid left kidney, unchanged.
== END 2024-02-16 08:25 | disposition home or self-care (01) ==
LOC: HO.HMGCX 08:24
PROVIDERS: PCP Nurse Practitioner Family; Visit Provider Urology
DX: N20.0 Calculus of kidney (principal)
CPT/HCPCS: 76775

== ENCOUNTER 2024-02-23 15:13 | Outpatient (AMB) | payer OTHER, SELFPAY ==
--- NOTE | 2024-02-23 15:16 | A.OFFVIS_ITS ---
Intake Visit Reasons: ESWL follow up/US(02/15) Intake Note: Patient is Present for Post Op ESWL Urology Medication: Tamsulosin Antibiotic Allergies: Levofloxacin Blood Thinners: None Customer Engagement Analyst Required: No Accompanied by: Self / Same As Patient Allergies fentanyl [FENTANYL] Allergy (Severe, Verified 11/24/23 14:34) CARDIAC ARREST levofloxacin [From LEVAQUIN] Allergy (Severe, Verified 11/24/23 14:34) ITCHING oxycodone [From PERCOCET] Allergy (Severe, Verified 11/24/23 14:34) HIVES divalproex sodium [From DEPAKOTE] Allergy (Unknown, Verified 11/24/23 14:34) ANAPHYLAXIS fluconazole [From DIFLUCAN] Allergy (Unknown, Verified 11/24/23 14:34) Hives fosphenytoin [FOSPHENYTOIN] Allergy (Unknown, Verified 11/24/23 14:34) Hives hydrocodone Allergy (Unknown, Uncoded 11/24/23 14:34) Unknown oxycodone Allergy (Unknown, Uncoded 11/24/23 14:34) Unknown percocet Allergy (Unknown, Uncoded 11/24/23 14:34) Unknown Medication List - Last Reconciled 02/23/24 by Fabian Red MD albuterol sulfate 90 mcg/actuation 2 puffs inhalation Q4-6H PRN [Colace 100 mg PO DAILY PRN] epinephrine (EpiPen 2-Deacon) 0.3 mg (0.3 mL) IM Q10M PRN famotidine (Pepcid AC) 20 mg PO BID 3 days [Florastor 100 mg PO BID] hydromorphone (Dilaudid) 2 mg PO Q6H PRN 7 days metformin 500 mg PO BID morphine 15 mg PO Q4-6H PRN 7 days [multivitamin PO DAILY] [omeprazole 40 mg PO DAILY] ondansetron 4 mg PO Q6-8H PRN phenazopyridine (Pyridium) 100 mg PO TID PRN 4 days simvastatin 40 mg PO BEDTIME tamsulosin 0.4 mg PO BEDTIME 14 days HPI Comments Details: Javier is a very pleasant male. He is a patient of Dr. Rios. He is seen for the following urologic conditions - nephrolithiasis Clearance on imaging Repeat imaging in 6 months and perform 24 hour urine Nephrolithiasis Bilateral stone formation Imaging - 08/10 CT Bilateral nonobstructing renal calculi. The largest on the right measures 9 mm. The largest on the left measures 4 mm - 11/11 renal ultrasound stone left side. Intervention - 11/11 Right ESWL - 01/09 left ESWL [facility] Medical History (Updated 01/06/24 @ 10:59 by Silvina Grover MD) Sleep apnea Asthma DMII (diabetes mellitus, type 2) GERD (gastroesophageal reflux disease) Diverticulitis PTSD (post-traumatic stress disorder) Seizures Hypertension Surgical History Hx of lithotripsy Hx of elbow surgery Hx of appendectomy Hx of umbilical hernia repair Hx of laparoscopy Social History Alcohol intake: never Patient Tobacco Use Status: Former Tobacco user Quit Date: 22 yrs ago Substance Use Type: Marijuana Review of Systems Const Denies chills and Denies fever(s) Card Reports no additional complaints and Denies syncope Resp Denies cough GI Denies abdominal pain and Denies heartburn Reports as per HPI and Denies change in libido Neuro Denies syncope Psych Denies change in libido Endo Denies change in libido Physical Exam Const General: cooperative, healthy appearing, comfortable and no acute distress Orientation/consciousness: patient oriented x3 HEENT Face and sinus: Yes normal facial exam Mouth: moist mucous membranes Neck Neck: Yes normal visual inspection, Yes full ROM and Yes trachea midline Chest Chest palpation & inspection: normal inspection of the chest Resp Effort & Inspection: normal respiratory effort, able to speak in complete sentences and no respiratory distress GI Inspection: Yes normal to inspection Back/Spine/Pelvis Cervical Spine: normal cervical lordosis Thoracic/Lumbar Spine: thoracic and lumbar spine normal to inspection Skin General skin exam: no rashes or lesions noted Neuro General: patient oriented x3, gait normal, tone normal and moves all extremities Extrem General: Yes normal to inspection and Yes capillary refill normal Assessment & Plan Assessment & Plan (1) Nephrolithiasis: Code(s): N20.0 - Calculus of kidney Category: Medical Plan Six-month follow-up imaging Orders: Orders US renal BI 6 Months N20.0 - Calculus of kidney Medications: New allopurinol 100 mg PO DAILY 90 tabs 1RF 90 days N20.0 - Calculus of kidney pyridoxine (vitamin B6) 50 mg PO DAILY 90 tabs 1RF 90 days N20.0 - Calculus of kidney Patient Instructions: Imaging studies, laboratory and physical exam results were discussed and reviewed in detail. No major barriers to patient understanding were identified. An opportunity to ask questions regarding the treatment plan was provided. All questions were answered. The patient expressed understanding and agreement with the above treatment plan. The patient is aware they should contact our office by phone for worsening of their current condition or the appearance of new urologic symptoms. Compliance is encouraged with any medications and followup testing that is ordered. It is a privilege to participate in the urologic care of your patient. If you have any questions or concerns regarding treatment for the above conditions, or other urologic issues, please do not hesitate to contact me. The office telephone contact is [phone]. This note is constructed using voice recognition software. While every effort has been made to ensure accuracy coin rolling machine operator errors may have been included. Yours sincerely, Dr Fabian Red MD, [facility] - Urology Providers of Expert, Compassionate Care for the Genitourinary System Coding Level of Care Code Est Pt Level 3 (35035) Diagnoses Nephrolithiasis N20.0
== END 2024-02-23 15:36 | disposition home or self-care (01) ==
PROVIDERS: PCP Nurse Practitioner Family; Visit Provider Urology
DX: N20.0 Calculus of kidney (principal)
CPT/HCPCS: 99024

== ENCOUNTER → 2024-02-23 15:13 | Outpatient (BNVA) | payer OTHER, SELFPAY | PROVIDERS: PCP Nurse Practitioner Family; Visit Provider Urology | DX: Z48.816 Encounter for surgical aftercare following surgery on the genitourinary system (principal) | CPT/HCPCS: 99212 ==

== ENCOUNTER 2024-03-21 13:40 | Emergency (ER) | payer OTHER, SELFPAY ==
--- NOTE | 2024-03-21 | ECG_ITS ---
Test Reason : CHEST PAIN Blood Pressure : / mmHG Vent. Rate : 103 BPM Atrial Rate : 103 BPM P-R Int : 172 ms QRS Dur : 084 ms QT Int : 328 ms P-R-T Axes : 041 -12 055 degrees QTc Int : 429 ms Sinus tachycardia Otherwise normal ECG When compared with ECG of 12-OCT-2023 07:45, No significant change was found Referred By: Generic ED Physician Electronically Signed By:TABITHA HANEY MD
--- NOTE | ~2024-03-21 | XR_ITS ---
EXAMINATION: XR CHEST CLINICAL INFORMATION: Shortness of breath with cough and congestion COMPARISON: Single view chest 07/05/2023 2 view chest 06/09/2019 TECHNIQUE: 2 views of the chest were obtained. FINDINGS: The lungs are hyperinflated suggesting COPD there is a 8 mm ovoid opacity overlying the mid thoracic spine seen only on the lateral radiograph. No other significant abnormality is noted involving the heart, lungs, mediastinum, bony thorax or soft tissues. Some minimal atelectasis is present at both lung bases. XR/XR chest 2V IMPRESSION: 1. COPD. 2. 8 mm ovoid opacity overlying the mid thoracic spine seen only on the lateral radiograph. CT scan of the chest is recommended for further evaluation.
[2024-03-21 14:14] VITALS: BP 153/90; PULSE 98; RESP 20; TEMP 36.9; O2SAT 96; BMI 34.5
--- NOTE | 2024-03-21 14:20 | ED.GENADULT ---
HPI - General Adult General Chief complaint: Upper Respiratory Symptoms Stated complaint: chest pain diff swolling Time Seen by Provider: 03/21/24 21:11 Source: patient Mode of arrival: ambulatory Limitations: no limitations History of Present Illness ED Provider: demetrio WISEMAN narrative: patient is 68 years old smoker been coughing with mucopurulent expectoration wheezing atnight no fever no chills complaining of pain with cough no other family member sick Related Data Home Medications ?Medication ?Instructions ?Recorded ?Confirmed Colace 100 mg PO DAILY PRN Constipation 08/29/20 02/23/24 Florastor 100 mg PO BID 08/29/20 02/23/24 multivitamin PO DAILY 08/29/20 02/23/24 omeprazole 40 mg PO DAILY 08/29/20 02/23/24 simvastatin 80 mg tablet 40 mg PO BEDTIME 08/29/20 02/23/24 metformin 500 mg tablet 500 mg PO BID 09/02/23 02/23/24 Previous Rx's ?Medication ?Instructions ?Recorded albuterol sulfate 90 mcg/actuation 2 puff inhalation Q4-6H PRN 08/29/20 aerosol inhaler shortness of breath or wheezing #6.7 grams epinephrine 0.3 mg/0.3 mL 0.3 mg (0.3 mL) IM Q10M PRN 03/15/21 injection, auto-injector (EpiPen anaphylaxis #2 ea 2-Deacon) famotidine 20 mg tablet (Pepcid AC) 20 mg PO BID 3 days #6 tabs 03/15/21 ondansetron 4 mg disintegrating 4 mg PO Q6-8H PRN nausea and 08/24/23 tablet vomiting #7 tabs hydromorphone 2 mg tablet 2 mg PO Q6H PRN pain 7 days #8 tabs 01/06/24 (Dilaudid) morphine 15 mg immediate release 15 mg PO Q4-6H PRN pain 7 days #8 01/06/24 tablet tabs phenazopyridine 100 mg tablet 100 mg PO TID PRN Spasm 4 days #12 01/06/24 (Pyridium) tabs tamsulosin 0.4 mg capsule 0.4 mg PO BEDTIME 14 days #14 caps 01/06/24 allopurinol 100 mg tablet 100 mg PO DAILY 90 days #90 tabs 02/23/24 pyridoxine (vitamin B6) 50 mg 50 mg PO DAILY 90 days #90 tabs 02/23/24 tablet amoxicillin 875 mg-potassium 1 tab PO BID #20 tabs 03/21/24 clavulanate 125 mg tablet benzonatate 200 mg capsule 200 mg PO TID PRN cough #30 caps 03/21/24 codeine 10 mg-guaifenesin 100 mg/5 10 ml PO Q6H PRN cough #237 mL 03/21/24 mL oral liquid lidocaine 4 % topical patch 1 patch topical DAILY PRN pain #10 03/21/24 (Salonpas (lidocaine)) ea prednisone 20 mg tablet 40 mg (2 x 20 mg) PO DAILY #10 tabs 03/21/24 Allergies Allergy/AdvReac Type Severity Reaction Status Date / Time fentanyl [FENTANYL] Allergy Severe CARDIAC Verified 03/21/24 14:14 ARREST levofloxacin [From LEVAQUIN] Allergy Severe ITCHING Verified 03/21/24 14:14 oxycodone [From PERCOCET] Allergy Severe HIVES Verified 03/21/24 14:14 divalproex sodium Allergy Unknown ANAPHYLAXIS Verified 03/21/24 14:14 [From DEPAKOTE] fluconazole [From DIFLUCAN] Allergy Unknown Hives Verified 03/21/24 14:14 fosphenytoin [FOSPHENYTOIN] Allergy Unknown Hives Verified 03/21/24 14:14 hydrocodone Allergy Unknown Unknown Uncoded 03/21/24 14:14 oxycodone Allergy Unknown Unknown Uncoded 03/21/24 14:14 percocet Allergy Unknown Unknown Uncoded 03/21/24 14:14 Review of Systems Review of Systems: Yes all other systems are reviewed and are negative PMFSH Past Medical History Medical History Sleep apnea Asthma DMII (diabetes mellitus, type 2) GERD (gastroesophageal reflux disease) Diverticulitis PTSD (post-traumatic stress disorder) Seizures Hypertension Surgical History Hx of lithotripsy Hx of elbow surgery Hx of appendectomy Hx of umbilical hernia repair Hx of laparoscopy Social History Social History Alcohol intake: never Patient Tobacco Use Status: Former Tobacco user Smoked in Last 30 Days: No Use of substances other than those prescribed or required for medical reasons: No Substance Use Type: Marijuana Advance Directives: No Advance Directives Information Provided: No Do you have a plan to hurt others: No Plan Physical Exam ED Vital Signs: Vital Signs - 24 hr 03/21/24 14:14 03/21/24 21:04 03/21/24 21:16 Temperature 98.5 F 98.2 F 97.1 F Pulse Rate 98 104 H 99 Respiratory Rate 20 20 21 H Blood Pressure 153/90 H 169/92 H 146/79 H Pulse Oximetry 96 96 95 Oxygen Delivery Method Room Air Room Air BMI result Body Mass Index 34.5 Appearance: Alert. Oriented X3. No acute distress. ENT: Pharynx normal. Oral Mucosa moist Neck: Normal inspection. Neck supple. CVS: Normal heart rate and rhythm. Pulses normal. Respiratory: No respiratory distress. Equal air entry bilateral, prolonged expiration with wheezing no crackles tenderness left lower ribs Abdomen: Soft and nontender. Bowel sounds are present, no mass palpable, no CVA tenderness Skin: Skin warm and dry. Normal skin color. Normal skin turgor. Extremities: No lower extremity edema. No calf tenderness Neuro: Oriented X 3. No motor deficit. Course Course Course Narrative: RME- 68-year-old male presents for evaluation of cough, shortness of breath and sore throat. Symptoms started earlier this morning. He reports coughing up a significant amount of phlegm and attempted to use his inhalers with minimal relief. Plan for labs, viral swabs, chest x-ray and strep throat swab. Medications Administered Discontinued Medications Generic Name Dose Route Start Last Admin Trade Name Gigiq PRN Reason Stop Dose Admin Amoxicillin/Clavulanate Potassium 875 mg 03/21/24 22:14 03/21/24 22:40 Amoxicillin/Potassium Clav 875 Mg Tablet PO 03/21/24 22:15 875 mg ONCE ONE Administration Benzonatate 200 mg 03/21/24 22:14 03/21/24 22:40 Benzonatate 100 Mg Capsule PO 03/21/24 22:15 200 mg ONCE ONE Administration Albuterol Sulfate 2.5 mg/ 0 mg 03/21/24 22:14 03/21/24 22:22 Albuterol/Ipratropium 3 ml INHALE 03/21/24 22:15 2.5 dose ONCE ONE Administration Dexamethasone 10 mg 03/21/24 22:14 03/21/24 22:40 Dexamethasone 2 Mg Tablet PO 03/21/24 22:15 10 mg ONCE ONE Administration Guaifenesin/Codeine Phosphate 10 ml 03/21/24 22:14 03/21/24 22:40 Guaifen/Codeine Sf 200/20/10ml 10 Ml Liquid PO 03/21/24 22:15 10 ml ONCE ONE Administration Lidocaine 1 patch 03/21/24 22:16 03/21/24 22:39 Lidocaine 4 % Patch Adh..Patch TRANSDERMA 03/21/24 22:17 1 patch ONCE ONE Administration Protocol Medical Decision Making Lab Data MDM Lab Attestation statement: I reviewed the patient's lab results. 03/21/24 17:41 03/21/24 17:41 Labs: Lab Results 03/21/24 03/21/24 Range/Units 17:41 17:42 WBC 11.5 H (4.8-10.8) X10*3/uL RBC 4.87 (4.60-5.80) X10*6/uL Hgb 15.6 (14.0-18.0) g/dl Hct 46.4 (42.0-52.0) % MCV 95.3 (80.0-98.0) fL MCH 32.0 (27.0-33.0) pg MCHC 33.6 (31.0-36.0) g/dl RDW 13.1 (11.0-16.0) % Plt Count 220 (160-400) X10*3/uL MPV 9.5 (9.4-12.4) fL Immature Gran % (Auto) 0.6 H (0.0-0.4) % Neut % (Auto) 59.4 (45-73) % Lymph % (Auto) 30.1 (20-40) % [place] % (Auto) 6.2 (2-11) % Eos % (Auto) 3.4 (0-4) % Baso % (Auto) 0.3 (0-2) % Lymph # (Auto) 3.5 (1.2-4.9) X10*3/uL [place] # (Auto) 0.7 (0.1-1.2) X10*3/uL Eos # (Auto) 0.4 (0.0-0.4) X10*3/uL Baso # (Auto) 0.0 (0.0-0.2) X10*3/uL Abs Immat Gran (auto) 0.07 H (0.00-0.03) X10*3/uL Absolute Neuts (auto) 6.8 (2.0-8.3) x10*3/uL Absolute Nucleated RBC 0.000 (0.0-0.012) X10*3/uL Nucleated RBC % (auto) 0.0 (0.0-0.2) /100WBC Sodium 141 (135-145) mmol/L Potassium 3.7 (3.3-5.1) mmol/L Chloride 105 (96-108) mmol/L Carbon Dioxide 23 (22-29) mmol/L Anion Gap 17 (12-20) BUN 10 (9-16) mg/dL Creatinine 0.85 (0.5-1.4) mg/dL Estim Creat Clear Calc 91.9 Estimated GFR > 60 Random Glucose 94 (60-115) mg/dL Calcium 10.1 D (8.4-10.2) mg/dL Influenza Type A (PCR) NEGATIVE (Negative) Influenza Type B (PCR) NEGATIVE (Negative) RSV RNA Qual (PCR) NEGATIVE (Negative) SARS-CoV-2 RNA (RT-PCR) NEGATIVE (Negative) S. pyogenes GrpA CHARLES Negative (Negative) Independent Interpretation I performed an independent interpretation of an: EKG and Plain X-Ray Interpretation: sinus tachycardia heart rate 103 beats per minute normal axis normal intervals no acute ST T wave changes no acute ischemia Radiology Impression Discussion of test interpretation with radiology: I have reviewed the radiologist's reading. Discharge Plan Discharge Clinical Impression: Bronchitis Patient Disposition: Home, Self-Care Instructions: Acute Bronchitis (ED) Additional Instructions: Do not use your inhaler 2 puffs every 4-6 hours as needed Antibiotic as prescribed Prednisone as advised Cough drops as prescribed Your blood sugar will get elevated when you use prednisone Drink plenty of fluids and stop prednisone if blood sugar is higher than 200 Lidoderm patch at the painful area everyday for 12 hours Prescriptions: New benzonatate 200 mg capsule 200 mg PO TID PRN (Reason: cough) Qty: 30 0RF codeine-guaifenesin 10-100 mg/5 mL liquid 10 ml PO Q6H PRN (Reason: cough) Qty: 237 0RF amoxicillin-pot clavulanate 875-125 mg tablet 1 tab PO BID Qty: 20 0RF prednisone 20 mg tablet 40 mg PO DAILY Qty: 10 0RF lidocaine [Salonpas (lidocaine)] 4 % adhesive patch,medicated 1 patch topical DAILY PRN (Reason: pain) Qty: 10 0RF No Action simvastatin 80 mg tablet 40 mg PO BEDTIME Colace 100 mg PO DAILY PRN (Reason: Constipation) Florastor 100 mg PO BID multivitamin PO DAILY omeprazole 40 mg PO DAILY albuterol sulfate 90 mcg/actuation HFA aerosol inhaler 2 puff inhalation Q4-6H PRN (Reason: shortness of breath or wheezing) Qty: 6.7 0RF famotidine [Pepcid AC] 20 mg tablet 20 mg PO BID 3 Days Qty: 6 0RF Rx Instructions: Anaphylaxis epinephrine [EpiPen 2-Deacon] 0.3 mg/0.3 mL auto-injector 0.3 mg IM Q10M PRN (Reason: anaphylaxis) Qty: 2 0RF Rx Instructions: for 2 doses metformin 500 mg Tablet 500 mg PO BID ondansetron 4 mg tablet,disintegrating 4 mg PO Q6-8H PRN (Reason: nausea and vomiting) Qty: 7 0RF tamsulosin 0.4 mg capsule 0.4 mg PO BEDTIME 14 Days Qty: 14 0RF phenazopyridine [Pyridium] 100 mg tablet 100 mg PO TID PRN (Reason: Spasm) 4 Days Qty: 12 0RF hydromorphone [Dilaudid] 2 mg tablet 2 mg PO Q6H PRN (Reason: pain) 7 Days Qty: 8 0RF Rx Instructions: Partial Fill upon patient request. morphine 15 mg tablet 15 mg PO Q4-6H PRN (Reason: pain) 7 Days Qty: 8 0RF Rx Instructions: Partial Fill upon patient request. allopurinol 100 mg tablet 100 mg PO DAILY 90 Days Qty: 90 1RF pyridoxine (vitamin B6) 50 mg tablet 50 mg PO DAILY 90 Days Qty: 90 1RF Interventions: ED Discharge Assessment Last Done: 03/21/24 23:04 Discharge Date/Time: 03/21/24 23:07 Print Language: Vietnamese
[2024-03-21 17:50] LABS: MANUAL DIFF FLAG NO
[2024-03-21 18:04] LABS: IDNOW Serial# 08D9AD1C; Strep A Nucleic Acid Negative (Negative)
[2024-03-21 18:09] LABS: Anion Gap 17 (12-20); Blood Urea Nitrogen 10 mg/dL (9-16); Calcium 10.1 mg/dL (8.4-10.2); Carbon Dioxide 23 mmol/L (22-29); Chloride 105 mmol/L (96-108); Creatinine Clr Calc Pharmacy 91.9; Estimated Glomerular Filt Rate > 60; Glucose Random 94 mg/dL (60-115); Potassium 3.7 mmol/L (3.3-5.1); Sodium 141 mmol/L (135-145)
[2024-03-21 18:23] LABS: Basophils Percent Auto 0.3 % (0-2); Eosinophils Absolute Auto 0.4 X10*3/uL (0.0-0.4); Eosinophils Percent Auto 3.4 % (0-4); Hematocrit 46.4 % (42.0-52.0); Hemoglobin 15.6 g/dl (14.0-18.0); Imm Gran Abs Auto 0.07 X10*3/uL (0.00-0.03); Imm Gran Pct Auto 0.6 % (0.0-0.4); Lymphocytes Absolute Auto 3.5 X10*3/uL (1.2-4.9); Lymphocytes Percent Auto 30.1 % (20-40); Mean Corpuscular HGB Conc 33.6 g/dl (31.0-36.0); Mean Corpuscular Volume 95.3 fL (80.0-98.0); Mean Platelet Volume 9.5 fL (9.4-12.4); Monocytes Absolute Auto 0.7 X10*3/uL (0.1-1.2); Monocytes Percent Auto 6.2 % (2-11); Neutrophils Absolute Auto 6.8 x10*3/uL (2.0-8.3); Neutrophils Percent Auto 59.4 % (45-73); Platelet Count 220 X10*3/uL (160-400); Red Blood Count 4.87 X10*6/uL (4.60-5.80); Red Cell Distribution Width 13.1 % (11.0-16.0); White Blood Count 11.5 X10*3/uL (4.8-10.8)
[2024-03-21 18:33] LABS: Influenza A PCR NEGATIVE (Negative); Influenza B PCR NEGATIVE (Negative); Resp Syncy Virus RNA Qual PCR NEGATIVE (Negative); SARS COV2 PCR INHOUSE NEGATIVE (Negative)
[2024-03-21 21:04] VITALS: BP 169/92; PULSE 104; RESP 20; TEMP 36.8; O2SAT 96
[2024-03-21 21:16] VITALS: BP 146/79; PULSE 99; RESP 21; TEMP 36.2; O2SAT 95
[2024-03-21] MEDS: Albuterol Sulfate 2.5 MG, Albuterol/Iprat 2.5/0.5MG 3 ML 3 ML INHALE (22:22)
[2024-03-21 22:24] VITALS: PULSE 87; RESP 18; O2SAT 98
[2024-03-21] MEDS: Lidocaine 4 % Patch ADH..PATCH 1 PATCH TRANSDERMA (22:39)
[2024-03-21] MEDS: dexAMETHasone 2 MG TABLET 10 MG PO (22:40)
[2024-03-21] MEDS: Amoxicillin/Potassium Clav 875 MG TABLET PO (22:40)
[2024-03-21] MEDS: guaiFEN/Codeine SF 200/20/10ML 10 ML LIQUID PO (22:40)
[2024-03-21] MEDS: Benzonatate 100 MG CAPSULE 200 MG PO (22:40)
[2024-03-21 22:45] VITALS: O2SAT 96
--- NOTE | 2024-03-21 23:02 | PC.NURSE ---
ptr reports great relief of breathing after duoneb tx.
[2024-03-21 23:04] VITALS: BP 146/79; PULSE 87; RESP 18; TEMP 36.2; O2SAT 96
== END 2024-03-21 23:07 | disposition home or self-care (01) ==
PROVIDERS: Physician Assistant; Emergency Provider Internal Medicine; PCP Nurse Practitioner Family
DX: J40 Bronchitis, not specified as acute or chronic (principal); R05.9 Cough, unspecified; R06.02 Shortness of breath; J02.9 Acute pharyngitis, unspecified; E11.9 Type 2 diabetes mellitus without complications; I10 Essential (primary) hypertension; K21.9 Gastro-esophageal reflux disease without esophagitis; Z79.84 Long term (current) use of oral hypoglycemic drugs; Z79.02 Long term (current) use of antithrombotics/antiplatelets; Z79.899 Other long term (current) drug therapy; Z87.891 Personal history of nicotine dependence; Z03.818 Encounter for observation for suspected exposure to other biological agents ruled out
CPT/HCPCS: 0241U; 36415; 71046; 80048; 85025; 87651; 93005; 94640; 99284; 99285; J8540

== ENCOUNTER → 2024-03-21 13:46 | Outpatient (BNV) | payer OTHER, SELFPAY | PROVIDERS: Visit Provider Internal Medicine Cardiovascular Disease | DX: R07.9 Chest pain, unspecified (principal) | CPT/HCPCS: 93010 ==

== ENCOUNTER 2024-04-19 14:33 | Emergency (ER) | payer OTHER, SELFPAY ==
--- NOTE | ~2024-04-19 | US_ITS ---
EXAMINATION: US EXTRACRANIAL CAROTID DUPLEX, BILATERAL CLINICAL INFORMATION: Left facial numbness. COMPARISON: Ultrasound carotid Doppler bilateral 01/12/2018 TECHNIQUE: Real-time ultrasound and Doppler techniques (integrating B-mode 2-D vascular images, Doppler spectral analysis and color-flow Doppler imaging) were utilized to interrogate the extracranial carotid arteries, the vertebral arteries and proximal subclavian arteries bilaterally. The degree of stenosis is determined by criteria similar to NASCET. FINDINGS: Right Side: 1. There is soft atherosclerotic plaque seen in the bifurcation/proximal ICA region. 2. The common carotid artery PSV proximally is 95 cm/s and distally 90 cm/s. 3. The proximal internal carotid artery velocities are 91 cm/s systolic and 19 cm/s diastolic. 4. The proximal external carotid artery PSV is 195 cm/s. 5. The vertebral artery shows antegrade flow. 6. The subclavian artery waveforms are normal. Left Side: 1. There is soft atherosclerotic plaque seen in the bifurcation/proximal ICA region. 2. The common carotid artery PSV proximally is 166 cm/s and distally 92 cm/s. 3. The proximal internal carotid artery velocities are 76 cm/s systolic and 19 cm/s diastolic. 4. The proximal external carotid artery PSV is 139 cm/s. 5. The vertebral artery shows antegrade flow. 6. The subclavian artery waveforms are normal. US/US carotid duplex BI IMPRESSION: 1. RIGHT: No hemodynamically significant stenosis. 2. LEFT: No hemodynamically significant stenosis. 3. There is no change in the category severity of disease when compared to the previous study dated 01/12/2018.
--- NOTE | ~2024-04-19 | CT_ITS ---
EXAMINATION: CT HEAD WITHOUT CONTRAST CLINICAL INFORMATION: Left facial numbness. COMPARISON: CT head May 17, 2020 TECHNIQUE: Contiguous axial imaging was performed from the skull base to vertex without intravenous administration of contrast. Coronal and sagittal reformatted images are performed at the CT scanner. [This CT examination was performed using dose optimization techniques as appropriate, variously including the following: *Automated exposure control *Adjustment of mA and/or kV according to patient size (this includes techniques or standardized protocols for targeted exams where dose is matched to indication/reason for exam; i.e. extremities or head) *Use of iterative reconstruction technique] DLP: 842 mGy-cm. FINDINGS: There is no evidence of acute intracranial hemorrhage or territorial infarction. No abnormal mass-effect or midline shift is seen. Mcclure to white matter differentiation is well preserved. No extra-axial fluid collections are identified. The ventricles are normal in size. There is no abnormal attenuation within the brain parenchyma. There is no osseous abnormality. The mastoid air cells and visualized portions of the paranasal sinuses are well-aerated. CT/CT head/brain wo IV con IMPRESSION: No acute intracranial pathology.
[2024-04-19 14:37] VITALS: BP 131/97; PULSE 99; RESP 22; TEMP 36.6; O2SAT 96; BMI 34.7
--- NOTE | 2024-04-19 14:39 | ED.GENADULT ---
HPI - General Adult General Chief complaint: Neuro Symptoms/Deficit Stated complaint: Facial numbness Time Seen by Provider: 04/19/24 16:51 Source: patient Mode of arrival: ambulatory Limitations: no limitations History of Present Illness ED Provider: demetrio WISEMAN narrative: Patient was healthy with history of epilepsy last seizure years went to bed normal woke up at 03:00 funny on face was feeling hot felt left side of the face numb no other weakness went to sleep again woke up again morning with the same feeling took total of 240 aspirin no other weakness or deficits speech normal sensory normal no headache no nausea no vomiting patient is still feel numb to touch to his left face Related Data Home Medications ?Medication ?Instructions ?Recorded ?Confirmed Colace 100 mg PO DAILY PRN Constipation 08/29/20 02/23/24 Florastor 100 mg PO BID 08/29/20 02/23/24 multivitamin PO DAILY 08/29/20 02/23/24 omeprazole 40 mg PO DAILY 08/29/20 02/23/24 simvastatin 80 mg tablet 40 mg PO BEDTIME 08/29/20 02/23/24 metformin 500 mg tablet 500 mg PO BID 09/02/23 02/23/24 Previous Rx's ?Medication ?Instructions ?Recorded albuterol sulfate 90 mcg/actuation 2 puff inhalation Q4-6H PRN 08/29/20 aerosol inhaler shortness of breath or wheezing #6.7 grams epinephrine 0.3 mg/0.3 mL 0.3 mg (0.3 mL) IM Q10M PRN 03/15/21 injection, auto-injector (EpiPen anaphylaxis #2 ea 2-Deacon) famotidine 20 mg tablet (Pepcid AC) 20 mg PO BID 3 days #6 tabs 03/15/21 ondansetron 4 mg disintegrating 4 mg PO Q6-8H PRN nausea and 08/24/23 tablet vomiting #7 tabs hydromorphone 2 mg tablet 2 mg PO Q6H PRN pain 7 days #8 tabs 01/06/24 (Dilaudid) morphine 15 mg immediate release 15 mg PO Q4-6H PRN pain 7 days #8 01/06/24 tablet tabs phenazopyridine 100 mg tablet 100 mg PO TID PRN Spasm 4 days #12 01/06/24 (Pyridium) tabs tamsulosin 0.4 mg capsule 0.4 mg PO BEDTIME 14 days #14 caps 01/06/24 allopurinol 100 mg tablet 100 mg PO DAILY 90 days #90 tabs 02/23/24 pyridoxine (vitamin B6) 50 mg 50 mg PO DAILY 90 days #90 tabs 02/23/24 tablet amoxicillin 875 mg-potassium 1 tab PO BID #20 tabs 03/21/24 clavulanate 125 mg tablet benzonatate 200 mg capsule 200 mg PO TID PRN cough #30 caps 03/21/24 codeine 10 mg-guaifenesin 100 mg/5 10 ml PO Q6H PRN cough #237 mL 03/21/24 mL oral liquid lidocaine 4 % topical patch 1 patch topical DAILY PRN pain #10 03/21/24 (Salonpas (lidocaine)) ea prednisone 20 mg tablet 40 mg (2 x 20 mg) PO DAILY #10 tabs 03/21/24 aspirin 81 mg chewable tablet 81 mg PO DAILY #30 tabs 04/19/24 (Vicki Chewable Low Dose Aspirin) Allergies Allergy/AdvReac Type Severity Reaction Status Date / Time fentanyl [FENTANYL] Allergy Severe CARDIAC Verified 04/19/24 14:44 ARREST levofloxacin [From LEVAQUIN] Allergy Severe ITCHING Verified 04/19/24 14:44 oxycodone [From PERCOCET] Allergy Severe HIVES Verified 04/19/24 14:44 divalproex sodium Allergy Unknown ANAPHYLAXIS Verified 04/19/24 14:44 [From DEPAKOTE] fluconazole [From DIFLUCAN] Allergy Unknown Hives Verified 04/19/24 14:44 fosphenytoin [FOSPHENYTOIN] Allergy Unknown Hives Verified 04/19/24 14:44 hydrocodone Allergy Unknown Unknown Uncoded 03/21/24 14:14 oxycodone Allergy Unknown Unknown Uncoded 03/21/24 14:14 percocet Allergy Unknown Unknown Uncoded 03/21/24 14:14 Review of Systems Review of Systems: Yes all other systems are reviewed and are negative PMFSH Past Medical History Medical History Sleep apnea Asthma DMII (diabetes mellitus, type 2) GERD (gastroesophageal reflux disease) Diverticulitis PTSD (post-traumatic stress disorder) Seizures Hypertension Surgical History Hx of lithotripsy Hx of elbow surgery Hx of appendectomy Hx of umbilical hernia repair Hx of laparoscopy Social History Social History Alcohol intake: never Patient Tobacco Use Status: Former Tobacco user Substance Use Type: Marijuana Advance Directives: No Advance Directives Information Provided: No Do you have a plan to hurt others: No Plan Physical Exam ED Vital Signs: Vital Signs - 24 hr 04/19/24 14:37 Temperature 97.9 F Pulse Rate 99 Respiratory Rate 22 H Blood Pressure 131/97 H Pulse Oximetry 96 Oxygen Delivery Method Room Air BMI result Body Mass Index 34.7 Appearance: Alert. Oriented X3. No acute distress. Eyes: PERRLA, No Nystagmus ENT: Pharynx normal. Oral Mucosa moist Neck: Normal inspection. Neck supple. CVS: Normal heart rate and rhythm. Pulses normal. Respiratory: No respiratory distress. Equal air entry bilateral, no wheezing/rales/rhonchi Abdomen: Soft and nontender. Bowel sounds are present, no mass palpable, no CVA tenderness Skin: Skin warm and dry. Normal skin color. Normal skin turgor. Extremities: No lower extremity edema. No calf tenderness Neuro: Oriented X 3. No motor deficit. No sensory deficit.No cerebellar signs , cranial nerves II-XII intact NIH Stroke Scale Internal: Initial- Upon Arrival Time: 14:43 Level of Consciousness: Alert Level of Consciousness Questions: Answers both questions correctly Level of Consciousness Commands: Performs both tasks correctly Best Gaze: Normal Visual: No visual loss Facial Palsy: Normal Motor Arm (Right): No drift Motor Arm (Left): No drift Motor Leg (Right): No drift Motor Leg (Left): No drift Limb Ataxia: Absent Sensory: Mild to moderate sensory loss (Decreased sensitive to light touch and pinprick to Left face spared the forehead) Best Language: No aphasia Dysarthia: Normal Extinction and Inattention: No abnormality Score: 1 Course Course Course Narrative: This is a rapid medical exam performed by Rajeev Toribio NP: Additional HPI, ROS, PE not included below will be deferred to primary provider. Patient is a 68-year-old male with history of T2DM, asthma, GERD, PTSD, seizures, HTN presenting to the ED with complaint of left sided facial numbness since 3am. Initially whole left face, has since improved to only left lower face. also reports patient was confused around 7 or 8 pm last night, left the refrigerator open, forgot about the dog in the cage. NIHSS 0 in triage. States a friend came over and felt his speech was slurred but he didn't have dentures in. Plan: CT head, labs Medical Decision Making Medical Decision Making [facility] Narrative: Patient with focal numbness of left face sparing forehead no motor deficit carotid Doppler negative for obstructive lesion patient can not have CTA because of allergic to iodine patient already took aspirin today possibly he has minor TIA advised to follow with neurologist for further management Differential Diagnosis Differential Diagnoses: The differential diagnosis associated with the presentation includes CVA/migraine/epilepsy/TIA Admission/Observation Consideration of admission/observation: Escalation of care including admission/observation considered Lab Data [facility] Lab Attestation statement: I reviewed the patient's lab results. 04/19/24 14:55 04/19/24 14:55 Labs: Lab Results 04/19/24 Range/Units 14:55 WBC 8.1 (4.8-10.8) X10*3/uL RBC 4.67 (4.60-5.80) X10*6/uL Hgb 14.8 (14.0-18.0) g/dl Hct 44.1 (42.0-52.0) % MCV 94.4 (80.0-98.0) fL MCH 31.7 (27.0-33.0) pg MCHC 33.6 (31.0-36.0) g/dl RDW 13.0 (11.0-16.0) % Plt Count 239 (160-400) X10*3/uL MPV 8.9 L (9.4-12.4) fL Immature Gran % (Auto) 0.2 (0.0-0.4) % Neut % (Auto) 51.2 (45-73) % Lymph % (Auto) 37.1 (20-40) % Richardson % (Auto) 7.8 (2-11) % Eos % (Auto) 3.1 (0-4) % Baso % (Auto) 0.6 (0-2) % Lymph # (Auto) 3.0 (1.2-4.9) X10*3/uL Richardson # (Auto) 0.6 (0.1-1.2) X10*3/uL Eos # (Auto) 0.3 (0.0-0.4) X10*3/uL Baso # (Auto) 0.1 (0.0-0.2) X10*3/uL Abs Immat Gran (auto) 0.02 (0.00-0.03) X10*3/uL Absolute Neuts (auto) 4.2 (2.0-8.3) x10*3/uL Absolute Nucleated RBC 0.000 (0.0-0.012) X10*3/uL Nucleated RBC % (auto) 0.0 (0.0-0.2) /100WBC PT 11.5 (11.1-13.3) SEC INR 0.9 (0.9-1.1) Sodium 141 (135-145) mmol/L Potassium 3.9 (3.3-5.1) mmol/L Chloride 107 (96-108) mmol/L Carbon Dioxide 26 (22-29) mmol/L Anion Gap 12 (12-20) BUN 12 (9-16) mg/dL Creatinine 0.85 (0.5-1.4) mg/dL Estim Creat Clear Calc 92.1 Estimated GFR > 60 Random Glucose 126 H (60-115) mg/dL Calcium 10.2 (8.4-10.2) mg/dL Magnesium 2.0 (1.6-2.6) mg/dL Total Bilirubin 0.4 (0.0-1.0) mg/dL AST 47 H (5-37) U/L ALT 56 H (0-40) U/L Alkaline Phosphatase 86 (39-117) U/L Troponin I High Sens < 2.7 (<3.5-35.0) ng/L Total Protein 7.6 (6.5-8.0) g/dL Albumin 4.6 (3.5-5.0) g/dL Independent Interpretation I performed an independent interpretation of an: EKG, Ultrasound and CT Scan Interpretation: Normal sinus rhythm heart rate 93 beats per minute normal intervals normal axis no acute ST T wave changes no acute ischemia Radiology Impression Discussion of test interpretation with radiology: I have reviewed the radiologist's reading. Discharge Plan Discharge Clinical Impression: Paresthesia Patient Disposition: Home, Self-Care Instructions: Paresthesia (ED) Additional Instructions: Cause of numbness of your face is not clear possible you might have a small mini stroke Take baby aspirin daily Follow up with neurologist for further evaluation including MRI Prescriptions: New aspirin [Vicki Chewable Aspirin] 81 mg tablet,chewable 81 mg PO DAILY Qty: 30 0RF No Action simvastatin 80 mg tablet 40 mg PO BEDTIME Colace 100 mg PO DAILY PRN (Reason: Constipation) Florastor 100 mg PO BID multivitamin PO DAILY omeprazole 40 mg PO DAILY albuterol sulfate 90 mcg/actuation HFA aerosol inhaler 2 puff inhalation Q4-6H PRN (Reason: shortness of breath or wheezing) Qty: 6.7 0RF famotidine [Pepcid AC] 20 mg tablet 20 mg PO BID 3 Days Qty: 6 0RF Rx Instructions: Anaphylaxis epinephrine [EpiPen 2-Deacon] 0.3 mg/0.3 mL auto-injector 0.3 mg IM Q10M PRN (Reason: anaphylaxis) Qty: 2 0RF Rx Instructions: for 2 doses metformin 500 mg Tablet 500 mg PO BID ondansetron 4 mg tablet,disintegrating 4 mg PO Q6-8H PRN (Reason: nausea and vomiting) Qty: 7 0RF tamsulosin 0.4 mg capsule 0.4 mg PO BEDTIME 14 Days Qty: 14 0RF phenazopyridine [Pyridium] 100 mg tablet 100 mg PO TID PRN (Reason: Spasm) 4 Days Qty: 12 0RF hydromorphone [Dilaudid] 2 mg tablet 2 mg PO Q6H PRN (Reason: pain) 7 Days Qty: 8 0RF Rx Instructions: Partial Fill upon patient request. morphine 15 mg tablet 15 mg PO Q4-6H PRN (Reason: pain) 7 Days Qty: 8 0RF Rx Instructions: Partial Fill upon patient request. benzonatate 200 mg capsule 200 mg PO TID PRN (Reason: cough) Qty: 30 0RF codeine-guaifenesin 10-100 mg/5 mL liquid 10 ml PO Q6H PRN (Reason: cough) Qty: 237 0RF amoxicillin-pot clavulanate 875-125 mg tablet 1 tab PO BID Qty: 20 0RF prednisone 20 mg tablet 40 mg PO DAILY Qty: 10 0RF lidocaine [Salonpas (lidocaine)] 4 % adhesive patch,medicated 1 patch topical DAILY PRN (Reason: pain) Qty: 10 0RF allopurinol 100 mg tablet 100 mg PO DAILY 90 Days Qty: 90 1RF pyridoxine (vitamin B6) 50 mg tablet 50 mg PO DAILY 90 Days Qty: 90 1RF Referrals: Michelle Rosado MD [Physician] - 1 week Print Language: [place]
--- NOTE | 2024-04-19 14:46 | ECG_ITS ---
Test Reason : facial numbness Blood Pressure : / mmHG Vent. Rate : 093 BPM Atrial Rate : 093 BPM P-R Int : 172 ms QRS Dur : 080 ms QT Int : 336 ms P-R-T Axes : 048 -03 048 degrees QTc Int : 417 ms Normal sinus rhythm Normal EKG When compared with ECG of 21-MAR-2024 13:46, No significant change was found Referred By: Yesenia Toribio Electronically Signed By:CHELSI MCINTOSH
[2024-04-19 14:59] LABS: MANUAL DIFF FLAG NO
[2024-04-19 15:03] LABS: Basophils Absolute Auto 0.1 X10*3/uL (0.0-0.2); Basophils Percent Auto 0.6 % (0-2); Eosinophils Absolute Auto 0.3 X10*3/uL (0.0-0.4); Eosinophils Percent Auto 3.1 % (0-4); Hematocrit 44.1 % (42.0-52.0); Hemoglobin 14.8 g/dl (14.0-18.0); Imm Gran Abs Auto 0.02 X10*3/uL (0.00-0.03); Imm Gran Pct Auto 0.2 % (0.0-0.4); Lymphocytes Percent Auto 37.1 % (20-40); Mean Corpuscular HGB Conc 33.6 g/dl (31.0-36.0); Mean Corpuscular Hemoglobin 31.7 pg (27.0-33.0); Mean Corpuscular Volume 94.4 fL (80.0-98.0); Mean Platelet Volume 8.9 fL (9.4-12.4); Monocytes Absolute Auto 0.6 X10*3/uL (0.1-1.2); Monocytes Percent Auto 7.8 % (2-11); Neutrophils Absolute Auto 4.2 x10*3/uL (2.0-8.3); Neutrophils Percent Auto 51.2 % (45-73); Platelet Count 239 X10*3/uL (160-400); Red Blood Count 4.67 X10*6/uL (4.60-5.80); White Blood Count 8.1 X10*3/uL (4.8-10.8)
[2024-04-19 15:19] LABS: Alanine Aminotransferase 56 U/L (0-40); Albumin Level 4.6 g/dL (3.5-5.0); Alkaline Phosphatase 86 U/L (39-117); Anion Gap 12 (12-20); Aspartate Amino Transferase 47 U/L (5-37); Bilirubin Total 0.4 mg/dL (0.0-1.0); Blood Urea Nitrogen 12 mg/dL (9-16); Calcium 10.2 mg/dL (8.4-10.2); Carbon Dioxide 26 mmol/L (22-29); Chloride 107 mmol/L (96-108); Creatinine Clr Calc Pharmacy 92.1; Estimated Glomerular Filt Rate > 60; Glucose Random 126 mg/dL (60-115); Potassium 3.9 mmol/L (3.3-5.1); Sodium 141 mmol/L (135-145); Total Protein 7.6 g/dL (6.5-8.0)
[2024-04-19 15:20] LABS: INTERNATIONAL NORM RATIO 0.9 (0.9-1.1); Prothrombin Time 11.5 SEC (11.1-13.3)
[2024-04-19 15:34] LABS: Troponin-I High Sensitivity < 2.7 ng/L (<3.5-35.0)
[2024-04-19 19:03] VITALS: BP 122/85; PULSE 75; RESP 18; TEMP 36.7; O2SAT 96
[2024-04-19 19:09] VITALS: BP 122/85; PULSE 75; RESP 18; TEMP 36.7; O2SAT 96
== END 2024-04-19 19:10 | disposition home or self-care (01) ==
PROVIDERS: Emergency Provider Internal Medicine; PCP Nurse Practitioner Family; Referring Provider Registered Nurse Emergency
DX: R20.2 Paresthesia of skin (principal); R20.0 Anesthesia of skin; Z79.899 Other long term (current) drug therapy; J45.909 Unspecified asthma, uncomplicated; I10 Essential (primary) hypertension; G40.909 Epilepsy, unspecified, not intractable, without status epilepticus; E11.9 Type 2 diabetes mellitus without complications; K21.9 Gastro-esophageal reflux disease without esophagitis
CPT/HCPCS: 36415; 70450; 80053; 83735; 84484; 85025; 85610; 93005; 93880; 99284

== ENCOUNTER → 2024-04-19 14:46 | Outpatient (BNV) | payer OTHER, SELFPAY | PROVIDERS: Emergency Provider Internal Medicine; PCP Nurse Practitioner Family; Visit Provider Internal Medicine | DX: R29.810 Facial weakness (principal) | CPT/HCPCS: 93010 ==

== ENCOUNTER 2024-06-26 09:33 | Emergency (ER) | payer OTHER, SELFPAY ==
[2024-06-26] VITALS (9 sets, daily range): BP systolic 119–165; BP diastolic 82–86; PULSE 92–130; RESP 13–18; TEMP 36.6–36.8; O2SAT 92–97; BMI 33.3
--- NOTE | 2024-06-26 | ECG_ITS ---
Test Reason : CP Blood Pressure : / mmHG Vent. Rate : 119 BPM Atrial Rate : 119 BPM P-R Int : 168 ms QRS Dur : 080 ms QT Int : 312 ms P-R-T Axes : 043 -08 056 degrees QTc Int : 438 ms Sinus tachycardia Otherwise normal ECG When compared with ECG of 19-APR-2024 14:45, Heart rate has increased Referred By: Generic ED Physician Electronically Signed By:TANIA LUIS
--- NOTE | 2024-06-26 10:04 | ED.CHESTPAIN ---
HPI - Chest Pain General Chief Complaint: Chest Pain Stated Complaint: SOB 100%,SZ, POSTTICTAL PER EMS Time Seen by Provider: 06/26/24 10:04 Source: patient Mode of arrival: EMS Limitations: no limitations History of Present Illness ED Provider: Dr. Harley Hurtado HPI narrative: 68-year-old male with a history of sleep apnea, asthma, diabetes mellitus, GERD, diverticulitis, PTSD, seizure disorder, hypertension who presents emergency department for evaluation of seizure chest pain, sweats, confusion. Paramedics report that the patient had a tonic clonic seizure which lasted 5-10 seconds during transport and absence seizure at home prior to coming to the emergency department. Paramedics report that the patient's O2 saturation decreased to 86% and he was given 3 L/minute during transport when he was postictal. Paramedics report that the noted that the patient was confused prior to having his seizure at home. Patient had a witnessed partial seizure here in the emergency department with left facial twitching and altered mental status the last proximally 5-10 seconds. The patient states that he has frequent uncontrolled seizures since he is allergic to all anti seizure medications and can only take THC tincture orally which helps reduce his seizures. Patient states that several weeks prior he was at [facility] and had a complete workup for possible stroke which was unremarkable. He was also seen here in the emergency department on 04/19/2024 for left facial numbness with negative workup and it was felt that he may have experienced a TIA. He also had duplex carotid artery studies which revealed no hemodynamically significantstenotic lesions and study was unchanged from his previous study Patient states that he has been he has been experiencing chest pressure intermittently for proximally 3 weeks. He states that the pressure will last for seconds and then resolve. He states that occasionally he feels pressure in his back. States the pressure can be 8/10 at its worse. Denies radiation of the pain to his neck, jaw or arms. He denied fever, chills, sore throat, cough, abdominal pain Related Data Home Medications ?Medication ?Instructions ?Recorded ?Confirmed Colace 100 mg PO DAILY PRN Constipation 08/29/20 02/23/24 Florastor 100 mg PO BID 08/29/20 02/23/24 multivitamin PO DAILY 08/29/20 02/23/24 omeprazole 40 mg PO DAILY 08/29/20 02/23/24 simvastatin 80 mg tablet 40 mg PO BEDTIME 08/29/20 02/23/24 metformin 500 mg tablet 500 mg PO BID 09/02/23 02/23/24 Previous Rx's ?Medication ?Instructions ?Recorded albuterol sulfate 90 mcg/actuation 2 puff inhalation Q4-6H PRN 08/29/20 aerosol inhaler shortness of breath or wheezing #6.7 grams epinephrine 0.3 mg/0.3 mL 0.3 mg (0.3 mL) IM Q10M PRN 03/15/21 injection, auto-injector (EpiPen anaphylaxis #2 ea 2-Deacon) famotidine 20 mg tablet (Pepcid AC) 20 mg PO BID 3 days #6 tabs 03/15/21 ondansetron 4 mg disintegrating 4 mg PO Q6-8H PRN nausea and 08/24/23 tablet vomiting #7 tabs hydromorphone 2 mg tablet 2 mg PO Q6H PRN pain 7 days #8 tabs 01/06/24 (Dilaudid) morphine 15 mg immediate release 15 mg PO Q4-6H PRN pain 7 days #8 01/06/24 tablet tabs phenazopyridine 100 mg tablet 100 mg PO TID PRN Spasm 4 days #12 01/06/24 (Pyridium) tabs tamsulosin 0.4 mg capsule 0.4 mg PO BEDTIME 14 days #14 caps 01/06/24 allopurinol 100 mg tablet 100 mg PO DAILY 90 days #90 tabs 02/23/24 pyridoxine (vitamin B6) 50 mg 50 mg PO DAILY 90 days #90 tabs 02/23/24 tablet amoxicillin 875 mg-potassium 1 tab PO BID #20 tabs 03/21/24 clavulanate 125 mg tablet benzonatate 200 mg capsule 200 mg PO TID PRN cough #30 caps 03/21/24 codeine 10 mg-guaifenesin 100 mg/5 10 ml PO Q6H PRN cough #237 mL 03/21/24 mL oral liquid lidocaine 4 % topical patch 1 patch topical DAILY PRN pain #10 03/21/24 (Salonpas (lidocaine)) ea prednisone 20 mg tablet 40 mg (2 x 20 mg) PO DAILY #10 tabs 03/21/24 aspirin 81 mg chewable tablet 81 mg PO DAILY #30 tabs 04/19/24 (Vicki Chewable Low Dose Aspirin) morphine 15 mg immediate release 15 mg PO Q6H PRN pain (scale score 06/26/24 tablet 7-10) #10 tabs ondansetron 4 mg disintegrating 4 mg PO Q6-8H PRN nausea and 06/26/24 tablet vomiting #14 tabs Allergies Allergy/AdvReac Type Severity Reaction Status Date / Time fentanyl [FENTANYL] Allergy Severe CARDIAC Verified 06/26/24 09:58 ARREST levofloxacin [From LEVAQUIN] Allergy Severe ITCHING Verified 06/26/24 09:58 oxycodone [From PERCOCET] Allergy Severe HIVES Verified 06/26/24 09:58 divalproex sodium Allergy Unknown ANAPHYLAXIS Verified 06/26/24 09:58 [From DEPAKOTE] fluconazole [From DIFLUCAN] Allergy Unknown Hives Verified 06/26/24 09:58 fosphenytoin [FOSPHENYTOIN] Allergy Unknown Hives Verified 06/26/24 09:58 hydrocodone Allergy Unknown Unknown Uncoded 06/26/24 09:58 oxycodone Allergy Unknown Unknown Uncoded 06/26/24 09:58 percocet Allergy Unknown Unknown Uncoded 06/26/24 09:58 Review of Systems Review of Systems: Yes all other systems are reviewed and are negative PMFSH Past Medical History Medical History Sleep apnea Asthma DMII (diabetes mellitus, type 2) GERD (gastroesophageal reflux disease) Diverticulitis PTSD (post-traumatic stress disorder) Seizures Hypertension Surgical History Hx of lithotripsy Hx of elbow surgery Hx of appendectomy Hx of umbilical hernia repair Hx of laparoscopy Social History Social History Alcohol intake: never Patient Tobacco Use Status: Former Tobacco user Smoked in Last 30 Days: No Use of substances other than those prescribed or required for medical reasons: No Substance Use Type: Marijuana Advance Directives: No Advance Directives Information Provided: No Do you have a plan to hurt others: No Plan Physical Exam Vital Signs: Vital Signs: Last Vital Signs Temp 98.3 F 06/26/24 16:14 Pulse 92 06/26/24 16:14 Resp 18 09/08/24 16:14 BP 119/86 06/26/24 16:14 Pulse Ox 95 06/26/24 16:14 O2 Del Method Room Air 06/26/24 16:14 BMI result Body Mass Index 33.3 vital signs were normal Exam: General: Awake, alert in no distress, patient does appear to be anxious Head: Normocephalic, atraumatic EENT: PERRL, Lids normal, sclera normal, conjunctiva normal, nose normal , ears normal, throat without erythema or exudates Neck: Supple, no adenopathy Lung: breath sounds symmetric, no wheezing, rales or rhonchi Chest: symmetric movement, moderate sternal tenderness and moderate tenderness palpation over the costochondral joints bilaterally Heart: regular rate and rhythm, normal S1, S2 no murmurs or rubs Abdomen: soft, non-tender, nondistended, normal bowel sounds Back: no vertebral tenderness, no CVAT Extremities: no deformities, moves all extremities symmetrically Neuro: Awake, alert, oriented, normal speech, cranial nerves intact, moves all extremities symmetrically Psych: Pleasant, cooperative Medications Administered Discontinued Medications Generic Name Dose Route Start Last Admin Trade Name Freq PRN Reason Stop Dose Admin Lorazepam 2 mg 06/26/24 10:05 06/26/24 10:09 Lorazepam 2 Mg/Ml Vial IVPUSH 06/26/24 10:06 2 mg ONCE ONE Administration Morphine Sulfate 4 mg 06/26/24 10:16 06/26/24 10:20 Morphine Sulfate 4 Mg/Ml Cartridge IVPUSH 06/26/24 10:17 4 mg ONCE STA Administration Protocol Morphine Sulfate 4 mg 06/26/24 12:27 06/26/24 12:36 Morphine Sulfate 4 Mg/Ml Cartridge IVPUSH 06/26/24 12:28 4 mg ONCE STA Administration Protocol Morphine Sulfate 4 mg 06/26/24 13:19 06/26/24 13:48 Morphine Sulfate 4 Mg/Ml Cartridge IVPUSH 06/26/24 13:20 4 mg ONCE STA Administration Protocol Ondansetron HCl 4 mg 06/26/24 12:27 06/26/24 12:35 Ondansetron Hcl 4 Mg/2 Ml Vial IVPUSH 06/26/24 12:28 4 mg ONCE ONE Administration Medical Decision Making Medical Decision Making MDM Narrative: 68-year-old male with a history of sleep apnea, asthma, diabetes mellitus, GERD, diverticulitis, PTSD, seizure disorder, hypertension who presents emergency department for evaluation of seizure with confusion at home and a witnessed tonic clonic seizure lasting 5-10 minutes during transport and witnessed partial seizure involving left facial twitching with altered mental status while he was here in the emergency department. Patient has frequent uncontrolled seizures since he can not take antiseizure medications in treats his seizures with THC tinctures. Patient also complained of intermittent anterior chest pain x3 weeks, episodes lasting 10 seconds with occasional radiation to his back but no radiation of the pain to his neck, jaw or arms. Differential diagnosis: Includes but is not limited to Myocardial infarction, myocardial ischemia, tonic clonic seizures, partial seizures, musculoskeletal pain, anxiety, anemia, electrolyte abnormalities Course: The patient's laboratory evaluation was unremarkable. The patient did have a troponin on arrival which was not elevated and a repeat troponin which actually was lower than the 1st troponin. Patient's 12 EKG did reveal a tachycardia of but no other acute abnormalities. Patient's exam did reveal chest wall tenderness And I suspect that his chest pain is musculoskeletal. Patient did have anxiety as well and he was treated with Ativan 2 mg IV for anxiety and also to raise his seizure threshold. Patient required multiple doses of morphine 4 mg IV times a total of 12 mg. he also received Zofran 4 mg IV. At this time I do not think that the patient had a stroke and I believe that his symptoms are more related to his frequent seizures and I did discuss this with him. Patient's pain is most likely musculoskeletal. He was advised to take Tylenol for pain and for pain not relieved by Tylenol he was prescribed morphine 15 mg every 6 hours as needed for pain. He was also given prescription for Zofran 4 mg ODT every 6 hours as needed for nausea vomiting. Patient was advised to follow-up with his PCP for re-evaluation and to return to the emergency department as if symptoms got worse. He was given printed and verbal instructions and discharged home. Admission/Observation Consideration of admission/observation: Escalation of care including admission/observation considered ( yes) Lab Data MDM Lab Attestation statement: I reviewed the patient's lab results. my interpretation patient's laboratory evaluation is as follows: CBC was normal. Chloride was elevated 110, CO2 was low 16. AST and ALT elevated 60 and 60. first high sensitive troponin I was Detectable but not elevated at 5.0. Repeat 3 hour troponin I did not go up significantly and was 2.8. 06/26/24 10:42 06/26/24 10:08 Labs: Lab Results 06/26/24 06/26/24 06/26/24 Range/Units 10:08 10:42 13:44 WBC 9.2 (4.8-10.8) X10*3/uL RBC 4.78 (4.60-5.80) X10*6/uL Hgb 15.2 (14.0-18.0) g/dl Hct 45.6 (42.0-52.0) % MCV 95.4 (80.0-98.0) fL MCH 31.8 (27.0-33.0) pg MCHC 33.3 (31.0-36.0) g/dl RDW 12.8 (11.0-16.0) % Plt Count 230 (160-400) X10*3/uL MPV 9.0 L (9.4-12.4) fL Immature Gran % (Auto) 0.4 (0.0-0.4) % Neut % (Auto) 65.9 (45-73) % Lymph % (Auto) 24.1 (20-40) % [place] % (Auto) 7.7 (2-11) % Eos % (Auto) 1.5 (0-4) % Baso % (Auto) 0.4 (0-2) % Lymph # (Auto) 2.2 (1.2-4.9) X10*3/uL [place] # (Auto) 0.7 (0.1-1.2) X10*3/uL Eos # (Auto) 0.1 (0.0-0.4) X10*3/uL Baso # (Auto) 0.0 (0.0-0.2) X10*3/uL Abs Immat Gran (auto) 0.04 H (0.00-0.03) X10*3/uL Absolute Neuts (auto) 6.1 (2.0-8.3) x10*3/uL Absolute Nucleated RBC 0.000 (0.0-0.012) X10*3/uL Nucleated RBC % (auto) 0.0 (0.0-0.2) /100WBC PT 11.9 (11.1-13.3) SEC INR 1.0 (0.9-1.1) Sodium 141 (135-145) mmol/L Potassium 3.9 (3.3-5.1) mmol/L Chloride 110 H (96-108) mmol/L Carbon Dioxide 16 L (22-29) mmol/L Anion Gap 19 (12-20) BUN 14 (9-16) mg/dL Creatinine 0.96 (0.5-1.4) mg/dL Estim Creat Clear Calc 85.3 Estimated GFR > 60 Random Glucose 155 H (60-115) mg/dL Calcium 9.6 (8.4-10.2) mg/dL Magnesium 1.9 (1.6-2.6) mg/dL Total Bilirubin 0.6 (0.0-1.0) mg/dL AST 60 H (5-37) U/L ALT 60 H (0-40) U/L Alkaline Phosphatase 79 (39-117) U/L Troponin I High Sens 5.0 D 2.8 (<3.5-35.0) ng/L Total Protein 7.7 (6.5-8.0) g/dL Albumin 4.7 (3.5-5.0) g/dL Independent Interpretation I performed an independent interpretation of an: EKG Interpretation: My independent interpretation of the patient's 12 EKG is as follows: Sinus tachycardia with a rate of 119, normal LA interval, QRS duration and QTC interval, no ST segment elevation, no ST segment depression, no significant T-wave abnormalities, no PACs no PVCs. Prescription Management I considered prescription management with: Pain Medication ( morphine) and Other ( antiemetic-ondansetron ODT) Chronic Conditions Patient?s care impacted by: Other ( seizure disorder) Discharge Plan Discharge Clinical Impression: Chest pain, Seizures Patient Disposition: Home, Self-Care Instructions: Chest Pain (ED) Additional Instructions: At this time I do not have a clear cause for your chest pain or back pain. You did have multiple seizures today and it is possible that your pain and confusion could be caused by your seizures. Your blood work today was consistent with your baseline labs and there was nothing significant to explain your symptoms. Take Tylenol (acetaminophen) 2 pills every 6 hours as needed for pain. For pain not relieved by i Tylenol take morphine 15 mg pills, 1 pill every 6 hours as needed for pain. This medication will make you sleepy, do not drive or work while taking this medication. Morphine is a narcotic medication and can be addicting. If you are concerned about addiction you can ask the pharmacist for less pills or do not get this prescription filled. Take Zofran ODT 4 mg pills, 1 pill dissolved in your mouth every 8 hours as needed for nausea and vomiting. Continue taking your medications as prescribed by your providers. Follow-up with your doctor in 2 days. Please return to the emergency department if your symptoms get worse or if you develop any symptoms that are concerning to you. Prescriptions: New morphine 15 mg tablet 15 mg PO Q6H PRN (Reason: pain (scale score 7-10)) Qty: 10 0RF Rx Instructions: Partial Fill upon patient request. ondansetron 4 mg tablet,disintegrating 4 mg PO Q6-8H PRN (Reason: nausea and vomiting) Qty: 14 0RF No Action simvastatin 80 mg tablet 40 mg PO BEDTIME Colace 100 mg PO DAILY PRN (Reason: Constipation) Florastor 100 mg PO BID multivitamin PO DAILY omeprazole 40 mg PO DAILY albuterol sulfate 90 mcg/actuation HFA aerosol inhaler 2 puff inhalation Q4-6H PRN (Reason: shortness of breath or wheezing) Qty: 6.7 0RF famotidine [Pepcid AC] 20 mg tablet 20 mg PO BID 3 Days Qty: 6 0RF Rx Instructions: Anaphylaxis epinephrine [EpiPen 2-Deacon] 0.3 mg/0.3 mL auto-injector 0.3 mg IM Q10M PRN (Reason: anaphylaxis) Qty: 2 0RF Rx Instructions: for 2 doses metformin 500 mg Tablet 500 mg PO BID aspirin [Vicki Chewable Aspirin] 81 mg tablet,chewable 81 mg PO DAILY Qty: 30 0RF ondansetron 4 mg tablet,disintegrating 4 mg PO Q6-8H PRN (Reason: nausea and vomiting) Qty: 7 0RF tamsulosin 0.4 mg capsule 0.4 mg PO BEDTIME 14 Days Qty: 14 0RF phenazopyridine [Pyridium] 100 mg tablet 100 mg PO TID PRN (Reason: Spasm) 4 Days Qty: 12 0RF hydromorphone [Dilaudid] 2 mg tablet 2 mg PO Q6H PRN (Reason: pain) 7 Days Qty: 8 0RF Rx Instructions: Partial Fill upon patient request. morphine 15 mg tablet 15 mg PO Q4-6H PRN (Reason: pain) 7 Days Qty: 8 0RF Rx Instructions: Partial Fill upon patient request. benzonatate 200 mg capsule 200 mg PO TID PRN (Reason: cough) Qty: 30 0RF codeine-guaifenesin 10-100 mg/5 mL liquid 10 ml PO Q6H PRN (Reason: cough) Qty: 237 0RF amoxicillin-pot clavulanate 875-125 mg tablet 1 tab PO BID Qty: 20 0RF prednisone 20 mg tablet 40 mg PO DAILY Qty: 10 0RF lidocaine [Salonpas (lidocaine)] 4 % adhesive patch,medicated 1 patch topical DAILY PRN (Reason: pain) Qty: 10 0RF allopurinol 100 mg tablet 100 mg PO DAILY 90 Days Qty: 90 1RF pyridoxine (vitamin B6) 50 mg tablet 50 mg PO DAILY 90 Days Qty: 90 1RF Interventions: ED Discharge Assessment Last Done: 06/26/24 16:14 Discharge Date/Time: 06/26/24 16:15 Print Language: Welsh
[2024-06-26] MEDS: LORazepam 2 MG/ML VIAL IVPUSH (10:09)
[2024-06-26 10:19] LABS: Prothrombin Time 11.9 SEC (11.1-13.3)
[2024-06-26] MEDS: Morphine Sulfate 4 MG/ML CARTRIDGE IVPUSH ×3 (10:20→13:48)
[2024-06-26 10:28] LABS: Alanine Aminotransferase 60 U/L (0-40); Albumin Level 4.7 g/dL (3.5-5.0); Alkaline Phosphatase 79 U/L (39-117); Anion Gap 19 (12-20); Aspartate Amino Transferase 60 U/L (5-37); Bilirubin Total 0.6 mg/dL (0.0-1.0); Blood Urea Nitrogen 14 mg/dL (9-16); Calcium 9.6 mg/dL (8.4-10.2); Carbon Dioxide 16 mmol/L (22-29); Chloride 110 mmol/L (96-108); Creatinine Clr Calc Pharmacy 85.3; Estimated Glomerular Filt Rate > 60; Glucose Random 155 mg/dL (60-115); Magnesium 1.9 mg/dL (1.6-2.6); Potassium 3.9 mmol/L (3.3-5.1); Sodium 141 mmol/L (135-145); Total Protein 7.7 g/dL (6.5-8.0)
--- NOTE | 2024-06-26 10:37 | PC.NURSE ---
Pt BIBA from home for CP-non radiating, pt states it feels like pressure, also c/o lower back pain. Pt has hx of epilepsy- unable to take meds for it d/t side effects. Per EMS pt had a 5-10 second tonic clonic seizure en route. Pt having multiple hemifacial seizures lasting 10 seconds-40 seconds.Pt O2 sat maintained at 94% during seizures, MD siegel at bedside. Pt medicated per MAR with morphine and ativan. 20g ultrasound IV placed in left upper bicep. Pt states pain is a trigger for seizures. Pt upright in the bed maintaining own airway during seizures. Pt a/ox3, respirations even and unlabored, no increased wob/sob noted, s1 and s2, pt sinus tach on quality assurance monitor chassis- HR 120s, abdomen soft, non-tender. EKG and labs obtained, call harrison within reach, all needs met at this time.
[2024-06-26 10:47] LABS: MANUAL DIFF FLAG NO
[2024-06-26 10:49] LABS: Basophils Percent Auto 0.4 % (0-2); Eosinophils Absolute Auto 0.1 X10*3/uL (0.0-0.4); Eosinophils Percent Auto 1.5 % (0-4); Hematocrit 45.6 % (42.0-52.0); Hemoglobin 15.2 g/dl (14.0-18.0); Imm Gran Abs Auto 0.04 X10*3/uL (0.00-0.03); Imm Gran Pct Auto 0.4 % (0.0-0.4); Lymphocytes Absolute Auto 2.2 X10*3/uL (1.2-4.9); Lymphocytes Percent Auto 24.1 % (20-40); Mean Corpuscular HGB Conc 33.3 g/dl (31.0-36.0); Mean Corpuscular Hemoglobin 31.8 pg (27.0-33.0); Mean Corpuscular Volume 95.4 fL (80.0-98.0); Monocytes Absolute Auto 0.7 X10*3/uL (0.1-1.2); Monocytes Percent Auto 7.7 % (2-11); Neutrophils Absolute Auto 6.1 x10*3/uL (2.0-8.3); Neutrophils Percent Auto 65.9 % (45-73); Platelet Count 230 X10*3/uL (160-400); Red Blood Count 4.78 X10*6/uL (4.60-5.80); Red Cell Distribution Width 12.8 % (11.0-16.0); White Blood Count 9.2 X10*3/uL (4.8-10.8)
[2024-06-26] MEDS: ondansetron HCL 4 MG/2 ML VIAL IVPUSH (12:35)
[2024-06-26 14:26] LABS: Troponin-I High Sensitivity 2.8 ng/L (<3.5-35.0)
--- NOTE | 2024-06-26 15:03 | PC.NURSE ---
Pt let this RN know his pain was starting to come back. MD Hurtado notified, pt medicated per DEC with morphine. Resting comfortably in bed, call harrison within reach, all needs met at this yuliet.
== END 2024-06-26 16:15 | disposition home or self-care (01) ==
PROVIDERS: Emergency Provider Emergency Medicine Emergency Medical Services; PCP Nurse Practitioner Family
DX: R07.89 Other chest pain (principal); R56.9 Unspecified convulsions; R00.0 Tachycardia, unspecified; R41.82 Altered mental status, unspecified; F12.90 Cannabis use, unspecified, uncomplicated; I10 Essential (primary) hypertension; Z79.899 Other long term (current) drug therapy; Z87.891 Personal history of nicotine dependence
CPT/HCPCS: 36415; 80053; 83735; 84484; 85025; 85610; 93005; 96374; 96375; 96376; 99284; 99285; J2060; J2270; J2405

== ENCOUNTER 2024-08-23 08:53 | Outpatient (REF) | payer OTHER, SELFPAY | END 2024-08-23 08:54 | disposition home or self-care (01) | LOC: HO.HMGCX 08:53 | PROVIDERS: PCP Nurse Practitioner Family; Visit Provider Urology | DX: N20.0 Calculus of kidney (principal) | CPT/HCPCS: 76775 ==

== ENCOUNTER 2024-09-09 13:11 | Outpatient (AMB) | payer OTHER, SELFPAY ==
--- NOTE | 2024-09-09 13:11 | MHC.OFFVIS ---
Intake Visit Reasons: 6m follow up/LABS/[facility](set) Intake Note: Patient is Present for Ultrasound/Litho follow up Urology Med: Tamsulosin, Allopurinol, Vitamin B6 Antibiotic Allergy: Levofloxacin Blood Thinner: Aspirin 08/23- Renal Ultrasound 07/20-L[facility]olink results Store Lead Required: No Accompanied by: Self / Same As Patient Allergies fentanyl [FENTANYL] Allergy (Severe, Verified 09/09/24 13:12) CARDIAC ARREST levofloxacin [From LEVAQUIN] Allergy (Severe, Verified 09/09/24 13:12) ITCHING oxycodone [From PERCOCET] Allergy (Severe, Verified 09/09/24 13:12) HIVES divalproex sodium [From DEPAKOTE] Allergy (Unknown, Verified 09/09/24 13:12) ANAPHYLAXIS fluconazole [From DIFLUCAN] Allergy (Unknown, Verified 09/09/24 13:12) Hives fosphenytoin [FOSPHENYTOIN] Allergy (Unknown, Verified 09/09/24 13:12) Hives hydrocodone Allergy (Unknown, Uncoded 09/09/24 13:12) Unknown oxycodone Allergy (Unknown, Uncoded 09/09/24 13:12) Unknown percocet Allergy (Unknown, Uncoded 09/09/24 13:12) Unknown HPI Comments Details: Javier is a very pleasant male. He is a patient of Dr. Rios. He is seen for the following urologic conditions - nephrolithiasis Telemedicine Evaluation 15 min Consultation DoximInteract[employer] Nathaniel Video attempted Does have some residual on imaging 24 hour urine shows low volume, low citrate, high sodium Recommend increase fluid to 4-5 16 oz bottles a day Six-month follow-up imaging and repeat Litholink Prescriptions renewed Nephrolithiasis Bilateral stone formation Imaging - 08/10 CT Bilateral nonobstructing renal calculi. The largest on the right measures 9 mm. The largest on the left measures 4 mm - 11/11 renal ultrasound stone left side - 08/11 renal ultrasound question of bilateral stones Intervention - 11/11 Right ESWL - 01/09 left ESWL [facility] Medical History Sleep apnea Asthma DMII (diabetes mellitus, type 2) GERD (gastroesophageal reflux disease) Diverticulitis PTSD (post-traumatic stress disorder) Seizures Hypertension Surgical History Hx of lithotripsy Hx of elbow surgery Hx of appendectomy Hx of umbilical hernia repair Hx of laparoscopy Social History Alcohol intake: never Patient Tobacco Use Status: Former Tobacco user Substance Use Type: Marijuana Review of Systems Const All systems reviewed & are unremarkable except as noted in HPI and below Reports no additional complaints Resp Reports no additional complaints GI Reports no additional complaints Reports as per HPI Musc Reports no additional complaints Physical Exam Telemedicine evaluation Appropriate responses Regular breathing rate and rhythm HEENT Head: Yes normal to inspection Ears: hearing grossly normal bilaterally Eyes General: appearance normal, both eyes and all related structures Neck Neck: Yes normal visual inspection Chest Chest palpation & inspection: normal inspection of the chest Resp Effort & Inspection: normal respiratory effort and able to speak in complete sentences Telehealth Telehealth Telehealth Platform: [employer] 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 No major barriers to patient understanding were identified. An opportunity to ask questions regarding the treatment plan was provided. All questions were answered. The patient expressed understanding and agreement with the above treatment plan. The patient is aware they should contact our office by phone for worsening of their current condition or the appearance of new urologic symptoms. Compliance is encouraged with any medications and followup testing that is ordered. It is a privilege to participate in the urologic care of your patient. If you have any questions or concerns regarding treatment for the above conditions, or other urologic issues, please do not hesitate to contact me. The office telephone contact is [phone]. This note is constructed using voice recognition software. While every effort has been made to ensure accuracy tower dragline operator errors may have been included. Yours sincerely, Dr Fabian Red MD, [facility] - Urology Providers of Expert, Compassionate Care for the Genitourinary System Coding Level of Care Code Tele Est Pt Level 4 (13769) Diagnoses Nephrolithiasis N20.0 Hypocitraturia R82.991
== END 2024-09-09 15:21 | disposition home or self-care (01) ==
LOC: HO.HUSH 13:11
PROVIDERS: PCP Nurse Practitioner Family; Visit Provider Urology
DX: N20.0 Calculus of kidney (principal); R82.991 Hypocitraturia
CPT/HCPCS: 99214

== ENCOUNTER 2024-11-01 07:52 | Inpatient (IN) | payer OTHER, SELFPAY ==
[2024-11-01] VITALS (7 sets, daily range): BP systolic 103–135; BP diastolic 72–97; PULSE 66–111; RESP 12–20; TEMP 36.6–37; O2SAT 89–95; BMI 33.9
--- NOTE | ~2024-11-01 | US_ITS ---
Ultrasound scrotum Doppler was dictated with ultrasound scrotum. Electronically signed by: Kiran Em MD 11/04/2024 07:49 AM [facility]
--- NOTE | ~2024-11-01 | US_ITS ---
EXAMINATION: US SCROTUM CLINICAL INFORMATION: Right testicular pain. COMPARISON: Ultrasound scrotum 08/16/2023. TECHNIQUE: A sonogram of the scrotum was performed assessing carrasco-scale appearance and color Doppler flow. Spectral Doppler analysis of the arterial and venous flow were performed in the testes bilaterally. FINDINGS: RIGHT: Right testicle measures 4.8 x 2.5 x 3.9 cm, volume 18.9 mL. No focal testicular parenchymal lesions seen except for echogenic tiny microcalcifications.. Spectral Doppler analysis of the arterial and venous flow is normal in the right testis. Right epididymal head is normal in size. No right hydrocele or varicocele is seen. Right epididymal Doppler flow is normal. LEFT: Left testicle measures 4.4 x 2.0 x 2.9 cm, volume 15.2 mL. No focal testicular parenchymal lesions are visualized except for echogenic tiny microcalcifications. Spectral Doppler analysis of the arterial and venous flow is normal in the left testis. Left epididymal head is normal in size. No left hydrocele seen. There is a small left varicocele noted. Left epididymal Doppler flow is normal. US/US scrotum IMPRESSION: Small left varicocele. Bilateral testicle microlithiasis but no focal mass. No hydrocele. Normal arterial and venous Doppler in both testes and epididymides. Electronically signed by: Kiran Em MD 11/03/2024 05:11 PM EST
--- NOTE | ~2024-11-01 | XR_ITS ---
EXAMINATION: XR ABDOMEN KUB CLINICAL INDICATION: Vomiting. COMPARISON: 01/06/2024. CT abdomen and pelvis 11/01/2024. TECHNIQUE: AP view of the abdomen. FINDINGS: Bowel gas pattern is normal/nonspecific. There is no focally dilated loop or evidence of bowel obstruction. No indirect evidence of free air. Mild to moderate fecal residue seen in the colon with sparing of the rectum. No organomegaly identified, or suspicious soft tissue calcification. There are vascular calcifications. The small nonobstructing renal calculi in the left kidney seen on the recent CT exam aren't likely obscured on this exam. Lung bases demonstrate mild left lower lobe scarring versus atelectasis. Osseous structures demonstrate no suspicious lytic or blastic bone lesions. There are lower lumbar and bilateral SI joint degenerative changes, and mild to moderate bilateral hip joint degenerative changes. Osseous excrescences at the lateral femoral head neck junctions noted, which can be associated with cam-type BERNARDO. XR/XR KUB IMPRESSION: No acute findings in the abdomen. Electronically signed by: Don Herrera MD 11/04/2024 08:58 AM EST
--- NOTE | ~2024-11-01 | CT_ITS ---
CLINICAL HISTORY: abdominal pain, nausea and vomitting CT ABDOMEN AND PELVIS WITHOUT CONTRAST Comparison: CT/PA/SR - CT ABDOMEN PELVIS WO IV CON - 11/01/24 11:40 EST Findings: Bilateral lower lobe atelectasis. Mild bilateral perinephric stranding. No hydronephrosis or obstructing calculus. There are multiple 2-4 mm nonobstructing calculi in the left kidney. No acute abnormalities in the remaining unenhanced solid organs. Mild hepatomegaly and mild diffuse fatty infiltration of the liver. Gallbladder is contracted. Atherosclerotic changes; no AAA. No bowel obstruction, pneumoperitoneum, or pneumatosis. Scattered colonic diverticula. No significant paracolic edema. Diastasis rectus in the lower anterior pelvis contains unobstructed small bowel. The appendix is identified. No acute appendicitis. No free or loculated fluid collection. Empty urinary bladder. Prostatic calcifications. The bones are intact. IMPRESSION: 1. No obstructive or acute inflammatory changes in the gastrointestinal and genitourinary tracts. 2. Nonobstructing left nephrolithiasis. 3. Mild diverticulosis coli. This document has been electronically signed by: Barbi Jackson DO on 11/05/2024 17:40:10
--- NOTE | ~2024-11-01 | CT_ITS ---
EXAMINATION: CT CHEST WITHOUT CONTRAST CLINICAL INFORMATION: Hemoptysis. Recent pneumonia. Right flank pain. COMPARISON: None available. TECHNIQUE: Multidetector volumetric CT imaging of the chest was done. Axial MIP volume rendering provided. Sagittal and coronal reformatted images were obtained. This CT examination was performed using dose optimization techniques as appropriate, variously including the following: *Automated exposure control *Adjustment of mA and/or kV according to patient size (this includes techniques or standardized protocols for targeted exams where dose is matched to indication/reason for exam; i.e. extremities or head) *Use of iterative reconstruction technique DLP: 325 mGy centimeter. FINDINGS: Multifocal patchy pulmonary groundglass involving mostly the peripheral lower lung lobes and lingula. Paraseptal emphysematous changes, upper lungs. No bronchiectasis. No honeycombing. No pleural effusion. No pneumothorax. No pericardial effusion. Respiratory airways patent. No gross lymphadenopathy, mediastinum or axillary. Calcified plaques throughout the thoracic aortic wall and its main branches and the coronary arteries. No aneurysm, thoracic aorta. The origin of the left vertebral artery is directly from the aortic arch between the left CCA and the left subclavian artery. No dominant nodules in the thyroid gland. Multilevel spondylosis in the axial skeleton without acute fracture or gross listhesis. No gross lytic or blastic lesions. CT/CT chest wo IV con IMPRESSION: Probable atelectasis, lung bases. Coronary artery disease and atherosclerosis disease. Paraseptal emphysematous changes, both lung apices. Fleischner guidelines were followed. Electronically signed by: Dusty Bowens MD 11/01/2024 12:32 PM [facility]
--- NOTE | ~2024-11-01 | XR_ITS ---
EXAMINATION: XR CHEST CLINICAL INFORMATION: cough COMPARISON: X-ray dated March 21, 2024. TECHNIQUE: 2 views of the chest were obtained. FINDINGS: Bilateral pulmonary reticular pattern. No consolidation, pleural effusion or pneumothorax. Cardiomediastinal silhouette demonstrates calcified plaque aortic arch. Multilevel thoracic spondylosis. XR/XR chest 2V IMPRESSION: Chronic interstitial lung disease. Superimposed acute inflammatory versus infectious small airway disease should be considered in the correct clinical settings. Electronically signed by: Dusty Bowens MD 11/01/2024 08:34 AM EST
--- NOTE | ~2024-11-01 | CT_ITS ---
EXAMINATION: CT CERVICAL SPINE WITHOUT CONTRAST CLINICAL INFORMATION: Seizure COMPARISON: None available. TECHNIQUE: Axial 3 mm thin and reformatted 2 mm thin sagittal and coronal images of cervical spine were obtained without contrast. DLP [address] examination was performed using dose optimization techniques as appropriate, variously including the following: *Automated exposure control *Adjustment of mA and/or kV according to patient size (this includes techniques or standardized protocols for targeted exams where dose is matched to indication/reason for exam; i.e. extremities or head) *Use of iterative reconstruction technique FINDINGS: On sagittal reconstructed images there is maintained cervical lordosis. There is loss of C3-4 disc height. Rest of the disc heights, vertebral heights and alignment is normal. This C2-3 disc level appears unremarkable. At C3-4 disc level there is posterior bulge/osteophyte complex effacing the ventral thecal sac. There is mild narrowing of bilateral neural foramina from uncovertebral hypertrophic changes. At C4-5 disc level there is no significant disc bulge, herniation or spinal canal stenosis. The neural foramina are patent bilaterally. At C5-6 disc level there is no significant disc bulge, herniation or spinal canal stenosis. Mild narrowing of left neural foramina from uncovertebral hypertrophic change is noted. The right neural foramina is patent. At C6-7 disc level there is no disc significant disc bulge, herniation or spinal stenosis. The neural foramina are patent bilaterally. The C7-T1 disc level appears unremarkable. There is mild right facet joint hypertrophy noted The craniovertebral junction and C1-C2 alignment is normal. No abnormal bone marrow signal seen. The the paravertebral soft tissues are normal. CT/CT cervical spine wo IV con IMPRESSION: Disc bulge/osteophyte complex C3-4, C4-5 disc levels without spinal canal stenosis. There is mild narrowing of neural foramina bilaterally at C3-4 on the left at C4-5, C5-6 disc level No fracture or abnormal bone marrow signal seen. Fleischner guidelines were followed. Electronically signed by: Kiran Em MD 11/01/2024 01:58 PM [facility]
--- NOTE | ~2024-11-01 | CT_ITS ---
EXAMINATION: CT HEAD WITHOUT CONTRAST CLINICAL INFORMATION: Seizure COMPARISON: CT brain 04/19/2024 TECHNIQUE: Contiguous axial imaging was performed from the skull base to vertex without intravenous administration of contrast. This CT examination was performed using dose optimization techniques as appropriate, variously including the following: *Automated exposure control *Adjustment of mA and/or kV according to patient size (this includes techniques or standardized protocols for targeted exams where dose is matched to indication/reason for exam; i.e. extremities or head) *Use of iterative reconstruction technique [facility] 1433 FINDINGS: There is no acute intra-axial, extra-axial bleed, masses or midline shift. There is no acute infarction evolution. There is no edema. The ortiz to white matter differentiation is maintained normal. The lateral ventricles are symmetrical in size and configuration without enlargement. No abnormality seen in the posterior fossa. Bone windows reveal mucoperiosteal thickening of bilateral maxillary sinuses. Rest of the paranasal sinuses are well-aerated. There is no scalp soft tissue abnormality. CT/CT head/brain wo IV con IMPRESSION: No acute intracranial process seen. Chronic bilateral maxillary sinus inflammatory changes. Electronically signed by: Kiran Em MD 11/01/2024 01:46 PM EST
--- NOTE | ~2024-11-01 | CT_ITS ---
EXAMINATION: CT ABDOMEN AND PELVIS WITHOUT CONTRAST CLINICAL INFORMATION: Right flank pain. COMPARISON: CT dated August 24, 2023. TECHNIQUE: Multidetector volumetric imaging was performed from the superior aspect of the liver through the pubic symphysis. Sagittal and coronal reformatted images were obtained on the technologist's workstation. This CT examination was performed using dose optimization techniques as appropriate, variously including the following: *Automated exposure control *Adjustment of mA and/or kV according to patient size (this includes techniques or standardized protocols for targeted exams where dose is matched to indication/reason for exam; i.e. extremities or head) *Use of iterative reconstruction technique. DLP: 694 mGy centimeter FINDINGS: Limited evaluation of the intra-abdominal organs and vascular structures due to lack of IV contrast. LUNG BASES: Pulmonary patchy and linear groundglass. Calcified plaques in the coronary arteries and descending thoracic aorta. LIVER, GALLBLADDER, AND BILIARY TREE: Liver measures 21 cm. Decreased attenuation of the parenchyma. No pericholecystic fluid collection or gallbladder wall thickening. Gallbladder is nondistended. No intrahepatic or extrahepatic biliary ductal dilatation. PANCREAS: No peripancreatic fluid collections. No main pancreatic ductal dilatation. SPLEEN: 11 cm. ADRENAL GLANDS: No nodular lesions. KIDNEYS AND URETERS: Right kidney: No hydronephrosis. Subtle 1 mm calcification in the lower pole of the pelvicalyceal system. Nonspecific perinephric edema pattern. Left kidney: Multiple scattered less than 2 mm calculi throughout the pelvicalyceal system. No hydronephrosis. Nonspecific perinephric edema pattern. BLADDER: Fluid-filled nearly collapsed. GASTROINTESTINAL TRACT: Appendix is normal. Abundant stool within the large intestine. Scattered diverticula throughout the left hemicolon. No intestinal obstruction pattern. Gas and fluid-filled small bowel loops. No pneumoperitoneum. No ascites. No pneumatosis intestinalis. ABDOMINAL WALL: Small fat-containing umbilical hernia. Diastases abdominal rectus muscles in the periumbilical region. Scarring likely related to an infraumbilical midline laparotomy. LYMPH NODES: Nonspecific prominent lymph nodes, mesenteric and retroperitoneum. VASCULAR: Mixed plaques throughout the abdominal aorta wall and iliac arteries. No aneurysm, abdominal aorta. Desiccation seen in the mid splenic artery. Calcifications at the origin of the right main renal artery and the celiac trunk and superior mesenteric artery. PELVIC VISCERA: Inadequate evaluation. OSSEOUS STRUCTURES: Spina bifida occulta, S1. Sclerosis and the sacroiliac joints. Multilevel thoracolumbar spondylosis Degenerative changes in the coxofemoral joints and sacroiliac joints. CT/CT abdomen pelvis wo IV con IMPRESSION: Bilateral nonobstructing nephrolithiasis. Small fat-containing umbilical hernia and diastases abdominal rectus muscles. Diverticular disease, left hemicolon. Hepatomegaly and hepatic steatosis. Coronary artery disease and atherosclerosis disease. Fleischner guidelines were followed. Electronically signed by: Dusty Bowens MD 11/01/2024 12:25 PM [facility]
--- OUTSIDE RECORDS SUMMARY | 2024-11-01 07:55 | XMS_ITS | Encounter Summary ---
Author Name [facility] [place] [facility] [place] Address [address] [place] [address] Care Team Providers Care Color Card Maker Name Role Phone ELIZABET ROBINS Primary Care Provider Unavailabl e Insurance Providers: All historical and current Section Date Range: From patient's date of to the date document was created. This section includes the names of all active insurance providers for the patient. Insurance Provider Type of Coverage Plan Name Start of Policy Coverage End of Policy Coverage Group Number Member ID Insurance Provider's Telephone Number Policy Paul's Name Patient's Relationship to Policy Paul [facility] CE ORGANIZ [facility] AC Apr 18, 2018 [id number] WILLIS,MAR JUDITH SPOUSE [place] ([place]ARD) [facility]GANIZ [facility] Apr 18, 2018 [id number] WILLIS,MAR JUDITH SPOUSE BCBS [facility] CE ORGANIZ [facility] E Apr 18, 2018 [id number] [phone] WILLIS,MAR JUDITH SPOUSE BCBS OF [facility] CE ORGANIZ [facility] Apr 18, 2018 [id number] WILLIS,MAR JUDITH PATIENT BCBS OF [facility] CE ORGANIZ BRENDA [facility] Apr 18, 2018 [id number] WILLIS,MAR JUDITH SPOUSE [place] OF [place] PREFERRED PROVIDER ORGANIZAT ION (PPO) BRENDA [facility] AC Apr 18, 2018 [id number] WILLIS,MAR JUDITH SPOUSE BCBS OF [facility] CE ORGANIZ BRENDA [facility]CC[facility]E [facility] ACT Apr 18, 2018 [id number] WILLIS,MAR JUDITH SPOUSE BCBS OF [facility] CE ORGANIZ BRENDA [facility] AC Apr 18, 2018 [id number] WILLIS,MAR JUDITH SPOUSE [place] PRESCRIPT ION RX22M A Oct 19, 2022 RX22MA [id number] WILLIS,LAVELLE AEL PATIENT [place] PRESCRIPT ION RX22M B Oct 19, 2022 [id number] [id number] WILLIS,LAVELLE AEL PATIENT [place] PRESCRIPT ION RX22M B Oct 19, 2022 RX22MB [id number] WILLIS,MAR JUDITH SPOUSE [place] PRESCRIPT [place] OF [place] Oct 19, 2022 RX22MA [id number] WILLIS, SPOUSE [place] PRESCRIPT ION RX Oct 19, 2022 RX22MB [id number] [phone] WILLIS,MAR JUDITH SPOUSE [place] PRESCRIPT ION BRENDA [facility] AC Oct 19, 2022 [id number] [phone] WILLIS,LAVELLE AEL SPOUSE [place] ([id number]) PRESCRIPT ION [place] OF [place] Oct 19, 2022 [id number] [phone] WILLIS,MAR JUDITH SPOUSE [place] ([facility] CE ORGANIZ BRENDA MCCABE [facility] AC Apr 18, 2018 [id number] WILLISEDILBERTO SPOUSE [employer] PRESCRIPT I[place]BS [place] 2018 L4TA [id number] WILLIS,EDILBERTO WONG SPOUSE [employer] ([id number]) PRESCRIPT ION Apr 18, 2018 L4TA [id number] WILLIS,EDILBERTO WONG SPOUSE [employer] ([id number]) PRESCRIPT ION L4TA* Apr 18, 2020 L4TA [id number] WILLISEDILBRETOA SPOUSE [employer] ([id number]) PRESCRIPT ION Apr 18, 2018 L4TA [id number] WILLISEDILBERTO SPOUSE [employer] ([id number]) PRESCRIPT ION L4TA Apr 18, 2018 L4TA [id number] WILLIS,EDILBERTO WONG SPOUSE [employer] ([id number]) PRESCRIPT ION L4TA* Apr 18, 2018 L4TA [id number] WILLISEDILBERTO Lynn SPOUSE [employer] ([id number]) PRESCRIPT ION Apr 18, 2018 L4TA [id number] WILLISEDILBERTO SPOUSE [employer]-MINOR BROGATION PRESCRIPT ION BCBS OF [place] Apr 18, 2020 L4TA [id number] WILLISEDILBERTO SPOUSE [facility] CE ORGANIZAT ION W/OUT OF NETWORK BENEFITS [facility] RSD ACT Apr 18, 2018 [id number] WILLISEDILBERTO SPOUSE [place] BC[place] (BLUECARD) [facility] CE ORGANIZAT ION [facility] AC Apr 18, 2018 [id number] WILLISEDILBERTO SPOUSE MEDICARE (WNR) MEDICARE (M) PART A Mar 19, 1990 PART A [id number] [phone] WILLISLAVELLE LEIVA AEL PATIENT MEDICARE (WNR) MEDICARE (M) PART A Mar 19, 1990 PART A [id number] [phone] WILLIS,LAVELLE AEL PATIENT MEDICARE (WNR) MEDICARE (M) PART A Mar 19, 1990 PART A [id number] [phone] WILLIS,LAVELLE AEL PATIENT MEDICARE (WNR) MEDICARE (M) PART A Mar 19, 1990 PART A [id number] WILLIS,LAVELLE AEL PATIENT MEDICARE (WNR) MEDICARE (M) PART A Mar 19, 1990 PART A [id number] [phone] WILLIS,LAVELLE AEL PATIENT MEDICARE (WNR) MEDICARE (M) PART A Mar 19, 1990 PART A [id number] WILLIS,LAVELLE AEL PATIENT MEDICARE (WNR) MEDICARE (M) PART A Mar 19, 1990 PART A [id number] WILLIS,LAVELLE AEL PATIENT MEDICARE (WNR) MEDICARE (M) PART A Mar 19, 1990 PART A [id number] WILLIS,LAVELLE AEL PATIENT MEDICARE (WNR) MEDICARE (M) PART A Mar 19, 1990 PART A [id number] [phone] WILLIS,LAVELLE AEL PATIENT MEDICARE (WNR) MEDICARE (M) PART A Mar 19, 1990 PART A [id number] WILLIS,LAVELLE AEL PATIENT MEDICARE (WNR) MEDICARE (M) PART A Mar 19, 1990 PART A [id number] WILLIS,LAVELLE AEL PATIENT Selected Encounter This section includes the information on record at [place] for the Encounter. Date/Time Encounter Type Encounter Description Reason Pro vider Source Nov 10, 2023 03:35 PM Outpatient Encounter COMMUNITY CARE CONSULT IHE Encounter Template Text not used by [place] Plan of Treatment: Future Appointments (+ 6 months) and Future Tests (+/- 45 days) The Plan of Treatment section includes future care activities for the patient from all [facility] treatmentfacilities. This section includes future appointments and future orders which are active, pending or scheduled. Future Appointments This section includes appointments that were scheduled to occur 6 months from the date of the Encounter, up to a maximum of 20 appointments. The data comes from all [place] treatment facilities. Appointment Date/Time Appointment Type Appointme nt Facility Name Nov 27, 2023 11:00 AM [facility] [place] [facility] Dec 10, 2023 10:00 AM [facility] [place] [facility] Dec 10, 2023 10:30 AM AMBULATORY - NONE [facility] [place] [facility] Dec 14, 2023 08:00 AM [facility] [place] [facility] Jan 13, 2024 03:00 PM AMBULATORY - MEDICINE [facility] [place] [facility] Feb 04, 2024 08:00 AM AM[facility]ATORY [facility]IC[facility] [place] [facility] February 17, 2024 12:00 PM AMBULATORY - MEDICINE [facility] [place] [facility] Mar 28, 2024 10:00 AM AMBULATORY - NONE [facility] [place] [facility] Mar 28, 2024 10:30 AM AM[facility]ULATORY [facility] MEDICINE [facility] [place] [facility] Mar 28, 2024 01:00 PM [facility]ULATORY [facility]ICINE [facility] [place] [facility] Apr 06, 2024 01:30 PM [place] [facility] [place] [facility] Lab Results: +/- 30 days of the encounter This section includes the Chemistry and Hematology Lab Results on record with [place] for the patient. Radiology Reports and Pathology Reports are provided separately, in subsequent sections. Lab Results This section contains the Chemistry/Hematology Results that were resulted 30 days before or 30 daysafter the date of the Encounter. Date/Time Source Result Type Result - Unit Interpretation Reference Range Comment Nov 27, 2023 08:43 AM [place] [facility] [place] [facility] LIPID PANEL FASTING Specimen Type: SERUM No comment entered. Ordering Provider: KIMBER MACK Report Released Date/Time: Jun 04, 2023 10:09 AM Reporting Lab: [place] [facility] [place] [address] [address] Performing Lab: [facility] [address] [address] CHOLESTEROL 136 mg/dL TRIGLYCERIDE 119 mg/dL 0-150 LDL calculated 69 mg/dL 0-129 CHOL/HDL 3.2 HDL CHOLESTEROL 43 mg/dL 40-60 Nov 27, 2023 08:43 AM [facility] MICROALBUMIN CREATININE RATIO PANEL Specimen Type: URINE No comment entered. Ordering Provider: KIMBER MACK Report Released Date/Time: Jun 04, 2023 10:09 AM Reporting Lab: [facility] [address] [address] Performing Lab: [facility] [address] [address] MICROALBUMIN/C REATININE RATIO 5.7 mg/g 0-29.9 MICROALBUMIN,Q UANTITATIVE 0.6 mg/dL RR UNAVAIL CREATININE URINE 104.48 mg/dL Nov 27, 2023 08:43 AM [facility] HEMOGLOBIN A1C PANEL Specimen Type: BLOOD Comment: Values obtained from A1C measurements can vary. For atypical A1C assays, a reported value of 7.0 could actually be between 6.72 and 7.28 if measured by a reference method. A reported value of 9.0 could actually be between 8.73 and 9.27. Ref: http://www.ngs p.org/CAPdata. asp Ordering Provider: KIMBER MACK Report Released Date/Time: Jun 04, 2023 10:09 AM Reporting Lab: [facility] [address] [address] Performing Lab: [address] [address] HEMOGLOBIN A1C 6.1 H 4.0-5.6 Nov 27, 2023 08:43 AM [facility] BASIC METABOLIC PANEL (fasting) Specimen Type: SERUM No comment entered. Ordering Provider: KIMBER MACK Report Released Date/Time: Jun 04, 2023 10:09 AM Reporting Lab: [facility] [address] [address] Performing Lab: [facility] [address] [address] UREA NITROGEN 12 mg/dL 7-25 GLUCOSE 133 mg/dL H 65-100 SODIUM 141 mmol/L 135-145 POTASSIUM 4.1 mmol/L 3.5-5.0 CHLORIDE 109 mmol/L 100-110 CO2 21 meq/L 20-30 CREATININE, Serum 0.84 mg/dL 0.50-1.40 eGFR(CKD-EPI 2020) >90 mL/min >60 Social History: Smoking Status (Most current) and Tobacco Use (All prior to encounter date) This section includes the most current, and the historical, smoking and tobacco- related health factors from the [place] facility where the Encounter took place. Current Smoking Status This section includes the most current smoking, or tobacco-related health factor, from the [place] facility where the Encounter took place. Date/Time Current Smoking Status Comment [facility] Dec 02, 2022 08:00 AM VA-TOBACCO FORMER USER [facility] Tobacco Use History This section includes a history of the smoking, or tobacco-related health factors, that were collected on or before the date of the Encounter. The data comes from the [place] facility where the Encounter took place. Date/Time Smoking Status/Tobac co Use Comment [facility] Dec 02, 2022 08:00 AM VA-TOBACCO QUIT 15 YRS OR MORE [facility] Nov 05, 2021 10:30 AM [facility] Nov 05, 2021 10:30 AM VA-TOBACCO QUIT 1 TO < 5 YRS [facility] Sep 14, 2020 02:00 PM [facility]-TOBACCO [facility] Sep 14, 2020 02:00 PM VA-TOBACCO QUIT 5 TO < 15 YRS [facility] [place] [facility] Jan 22, 2018 03:40 PM QUIT TOBACCO USE > 7 YEARS AGO [facility] Jun 04, 2016 02:01 PM CURRENT SMOKER been smoking pass 20 yrs [facility] Jun 04, 2016 02:01 PM V1-PT DECLINES REF TO TOBACCO CESS PR[facility] Jun 04, 2016 02:01 PM V1-PT THINKING ABOUT QUIT TOBACCO USE [facility] Jul 18, 2014 03:31 PM V1-PT DECLINES REF TO TOBACCO CESS PRGM [facility] Jul 18, 2014 03:31 PM V1-PT DECLINES TOBACCO CESSATION MEDS [facility] Jul 18, 2014 03:31 PM V1-PT NOT INTERESTED IN QUIT TOBACCO USE [facility] Jan 09, 2014 10:43 AM CURRENT SMOKER pt smokes 1 pk of cigarettes per day. [facility] Jan 09, 2014 10:43 AM V1-PT THINKING ABOUT QUIT TOBACCO USE [facility] Aug 28, 2003 10:47 AM CURRENT SMOKER one pack q 6 days - he has cut down from 3 PPD. He is in the process of quitting [facility] Radiology Reports: +/- 30 days of the encounter Radiology Reports For cases when an order for radiology services may have been completed prior to the date of the Encounter, the report list includes the Radiology Reports that were completed up to 30 days before dateof the Encounter. For cases when an order for radiology services may have been completed after the date of the Encounter, the report list also includes the Radiology Reports that were completed up to30 days after date of the Encounter. The data comes from all [facility] facilities. Date/Time Radiology Report Provider Source Dec 10, 2023 10:31 AM ULTRASOUND AAA SCREENING: LAVELLE PEDROAEL [id number] -[id number] M Exm Date: DEC 10, 2023@10:31 Req Phys: ELIZABET ROBINS Pat Loc: CWM/NO/PACT 5 (Req'g Loc) Img Loc: ULTRASOUND Service: Unknown (Case [id number] COMPLETE) ULTRASOUND AAA SCREENING (US Detailed) CPT:17562 Reason for Study: US Abdomen, AAA screen Clinical History: Report Status: Verified Date Reported: DEC 10, 2023 Date Verified: DEC 10, 2023 Animal Physiologist E-Sig:/ES/RAYMOND LEAL JR Report: Study: AAA screening ultrasound. Comparison: None. Findings: The proximal abdominal aorta measures 2.7 cm AP by 2.5 cm transverse. The mid abdominal aorta measures 2.1 cm AP by 2.2 cm transverse. The distal abdominal aorta measures 2.1 cm AP by 1.9 cm transverse. The iliac arteries are patent and normal in caliber. There is mild calcific atherosclerotic plaque. Impression: Normal aortic caliber. Primary Diagnostic Code: No immediate attention required Secondary Diagnostic Codes: ABDOMINAL AORTIC ANEURYSM NOT PRESENT Primary Interpreting Staff: RAYMOND LEAL JR, Radiologist (Animal Physiologist) /RAYMOND SHELTON JR [facility] Encounter Notes: All associated encounter notes This section contains the clinical notes associated to the Encounter. Date/Time Encounter Note(s) Provider Source Nov 10, 2023 03:35 PM NONVA NOTE: LOCAL TITLE: [facility] CARE COORD PLAN STANDARD TITLE: NONVA NOTE DATE OF NOTE: NOV 10, 2023@15:35 ENTRY DATE: NOV 10, 2023@15:35:24 AUTHOR: SONNY BOGGS COSIGNER: URGENCY: STATUS: COMPLETED Emergency Notification Intake Date Presenting to the Facility: Sep Method of Contact: Notified from ECR worklist Notification ID: [id number] [facility] Referral #: [facility] Hospital Name: Hospital: [facility] Address: City: [place] State: [place] Zip Code: Phone : [facility] Facility Point of Contact: Name: Marina Phone: Chief complaint: KIDNEY,BACK PAIN, SURGERY LAST MONTH Primary Diagnosis: Disposition Discharged Date of discharge: Sep Discharge to Comment: ER Only /gaetano/ SONNY RITCHIE Signed: 11/10/2023 15:36 Receipt Acknowledged By: * AWAITING SIGNATURE * AUGUSTA RIVAS * AWAITING SIGNATURE * SAMINA LOPEZ * AWAITING SIGNATURE * ELIZABET CARDOZO * AWAITING SIGNATURE * MARYJO SWENSON DAWN MARIE HASTINGS
--- OUTSIDE RECORDS SUMMARY | 2024-11-01 07:56 | XMS_ITS | Encounter Summary ---
Author Name [facility] [place] [facility] [place] Address [address] [place] [address] Care Team Providers Care House Calls Nurse Practitioner Name Role Phone ELIZABET ROBINS Primary Care [...] Paul's Name Patient's Relationship to Policy Paul [facility] CE ORGANIZ [facility] AC Apr 18, 2018 [id number] WILLIS,MAR JUDITH SPOUSE ANTHEM [place] OF [place] ([place]) [facility]IZ [facility] Apr 18, 2018 [id number] WILLIS,MAR JUDITH SPOUSE BCBS [facility] CE ORGANIZ [facility] SHARE ACTIV E Apr 18, 2018 [id number] WILLIS,MAR JUDITH SPOUSE BCBS OF [facility] CE [facility]GANIZ [facility] Apr 18, 2018 [id number] WILLIS,MAR JUDITH PATIENT BCBS OF [facility] CE ORGANIZ [facility] Apr 18, 2018 [id number] WILLIS,MAR JUDITH SPOUSE BCBS OF [place] PREFERRED PROVIDER ORGANIZAT ION (PPO) [facility] AC Apr 18, 2018 [id number] WILLIS,MAR JUDITH SPOUSE BCBS OF [facility] CE ORGANIZ [facility] ACT Apr 18, 2018 [id number] WILLIS,MAR JUDITH SPOUSE BCBS OF [facility] CE ORGANIZ [facility] AC Apr 18, 2018 [id number] [phone] WILLIS,MAR JUDITH SPOUSE [place] PRESCRIPT ION RX22M A Oct 19, 2022 RX22MA [id number] WILLIS,LAVELLE AEL PATIENT [place] PRESCRIPT ION RX22M B Oct 19, 2022 [id number] [id number] WILLIS,LAVELLE AEL PATIENT [place] PRESCRIPT ION [facility] AC Oct 19, 2022 [id number] [phone] WILLIS,LAVELLE AEL SPOUSE [place] PRESCRIPT ION BCBS OF [place] Oct 19, 2022 RX22MA [id number] [phone] WILLSI, SPOUSE [place] PRESCRIPT ION RX22M B Oct 19, 2022 RX22MB [id number] [phone] WILLIS,MAR JUDITH SPOUSE [place] PRESCRIPT ION RX Oct 19, 2022 [id number] [phone] WILLIS,MAR JUDITH SPOUSE [place] ([id number]) PRESCRIPT ION BCBS OF [place] Oct 19, 2022 [id number] WILLIS,MAR JUDITH SPOUSE [place] ([facility] CE ORGANIZ [facility] AC Apr 18, 2018 [phone] WILLIS,EDILBERTO SOTELOZA SPOUSE [employer] PRESCRIPT ION BCBS [place] 2018 L4TA [id number] WILLIS,EDILBERTO JUDITH SPOUSE [employer] ([id number]) PRESCRIPT ION Apr 18, 2018 L4TA [id number] [phone] WILLIS,EDILBERTO SOTELOZA SPOUSE [employer] ([id number]) PRESCRIPT ION L4TA* Apr 18, 2020 L4TA [id number] WILLIS,EDILBERTO PALAFOXA SPOUSE [employer] ([id number]) PRESCRIPT ION L4TA* Apr 18, 2018 L4TA [id number] WILLIS,EDILBERTO PALAFOXA SPOUSE [employer] ([id number]) PRESCRIPT ION L4TA Apr 18, 2018 L4TA [id number] WILLIS,EDILBERTO SOTELOZA SPOUSE [employer] ([id number]) PRESCRIPT ION Apr 18, 2018 L4TA [id number] WILLISEDILBERTOZA SPOUSE [employer] ([id number]) PRESCRIPT ION Apr 18, 2018 L4TA [id number] WILLIS,EDILBERTO WONG SPOUSE [employer]-MINOR BROGATION PRESCRIPT ION BCBS OF [place] Apr 18, 2020 L4TA [id number] WILLIS,EDILBERTO WONG SPOUSE [place] [facility] CE ORGANIZAT ION W/OUT OF NETWORK BENEFITS [facility] ACT Apr 18, 2018 [phone] WILLISEDILBERTO SPOUSE [place] BCBS [facility] (BLUECAR) [facility] CE ORGANIZAT ION [facility] AC Apr 18, 2018 [id number] WILLISEDILBERTO SPOUSE MEDICARE (WNR) MEDICARE (M) PART A Mar 19, 1990 PART A [id number] WILLISLAVELLE AEL PATIENT MEDICARE (WNR) MEDICARE (M) PART A Mar 19, 1990 PART A [id number] WILLIS,LAVELLE AEL PATIENT MEDICARE (WNR) MEDICARE (M) PART A Mar 19, 1990 PART A [id number] [phone] WILLIS,LAVELLE AEL PATIENT MEDICARE (WNR) MEDICARE (M) PART A Mar 19, 1990 PART A [id number] [phone] WILLIS,LAVELLE AEL PATIENT MEDICARE (WNR) MEDICARE (M) PART A Mar 19, 1990 PART A [id number] WILLIS,LAVELLE AEL PATIENT MEDICARE (WNR) MEDICARE (M) PART A Mar 19, 1990 PART A [id number] WILLIS,LAVELLE AEL PATIENT MEDICARE (WNR) MEDICARE (M) PART A Mar 19, 1990 PART A [id number] [phone] WILLIS,LAVELLE AEL PATIENT MEDICARE (WNR) MEDICARE (M) PART A Mar 19, 1990 PART A [id number] [phone] WILLIS,LAVELLE AEL PATIENT MEDICARE (WNR) MEDICARE (M) PART A Mar 19, 1990 PART A [id number] WILLIS,LAVELLE AEL PATIENT MEDICARE (WNR) MEDICARE (M) PART A Mar 19, 1990 PART A [id number] [phone] WILLIS,LAVELLE AEL PATIENT MEDICARE (WNR) MEDICARE (M) PART A Mar 19, 1990 PART A [id number] WILLIS,LAVELLE AEL PATIENT Selected Encounter This section includes the information on record at [place] for the Encounter. Date/Time Encounter Type Encounter Description Reason Pro vider Source Nov 27, 2023 12:00 AM Outpatient Encounter EVENT (HISTORICAL) IHE Encounter Template Text not used by [place] Plan of Treatment: Future Appointments (+ 6 [...] 20 appointments. The data comes from all [place] treatment facilities. Appointment Date/Time Appointment Type Appointme nt Facility Name Dec 10, 2023 10:00 AM AMBULATORY [facility] MEDICINE [facility] [place] [facility] Dec 10, 2023 10:30 AM AMBULATORY - NONE [facility] [place] [facility] Dec 14, 2023 08:00 AM AMBULATORY - MEDICINE [facility] [place] [facility] Jan 13, 2024 03:00 PM AMBULATORY - MEDICINE [facility] [place] [facility] Feb 04, 2024 08:00 AM AMBULATORY - MEDICINE [facility] [place] [facility] February 17, 2024 12:00 PM AMBULATORY - MEDICINE [facility] [place] [facility] Mar 28, 2024 10:00 AM AMBULATORY - NONE [facility] [place] [facility] Mar 28, 2024 10:30 AM AMBULATORY - MEDICINE [facility] [place] [facility] Mar 28, 2024 01:00 PM AMBULATORY - MEDICINE [facility] [place] [facility] Apr 06, 2024 01:30 PM AMBULATORY - [place]ICINE [place] [facility] [place] [facility] Lab Results: +/- 30 days of the encounter This section includes the Chemistry and Hematology Lab Results on record with [place] for the patient. Radiology Reports and Pathology Reports are provided separately, in subsequent sections. Lab Results This section contains the Chemistry/Hematology Results that were resulted 30 days before or 30 daysafter the date of the Encounter. Date/Time Source Result Type Result - Unit Interpretation Reference Range Comment Nov 27, 2023 08:43 AM [place] [facility] [place] [facility] LIPID PANEL FASTING Specimen Type: SERUM No comment entered. Ordering Provider: KIMBER MACK Report Released Date/Time: Jun 04, 2023 10:09 AM Reporting Lab: [facility] [place] [facility] [address] [facility] [address] Performing Lab: [facility] [address] CHOLESTEROL 136 mg/dL TRIGLYCERIDE 119 mg/dL 0-150 LDL calculated 69 mg/dL 0-129 CHOL/HDL 3.2 HDL CHOLESTEROL 43 mg/dL 40-60 Nov 27, 2023 08:43 AM [facility] MICROALBUMIN CREATININE RATIO PANEL Specimen Type: URINE No comment entered. Ordering Provider: KIMBER MACK Report Released Date/Time: Jun 04, 2023 10:09 AM Reporting Lab: [facility] [address] [facility] [address] Performing Lab: [facility] [address] [facility] [address] MICROALBUMIN/C REATININE RATIO 5.7 mg/g 0-29.9 MICROALBUMIN,Q UANTITATIVE 0.6 mg/dL RR UNAVAIL CREATININE URINE 104.48 mg/dL Nov 27, 2023 08:43 AM [facility] HEMOGLOBIN A1C PANEL Specimen Type: BLOOD [...] Jun 04, 2023 10:09 AM Reporting Lab: [facility] [address] [address] Performing Lab: [address] [address] HEMOGLOBIN A1C 6.1 H 4.0-5.6 Nov 27, 2023 08:43 AM [facility] BASIC METABOLIC PANEL (fasting) Specimen Type: SERUM No comment entered. Ordering Provider: KIMBER MACK Report Released Date/Time: Jun 04, 2023 10:09 AM Reporting Lab: [facility] [address] [address] Performing Lab: [address] [address] UREA NITROGEN 12 mg/dL 7-25 GLUCOSE 133 mg/dL H 65-100 SODIUM 141 mmol/L 135-145 POTASSIUM 4.1 mmol/L 3.5-5.0 CHLORIDE 109 mmol/L 100-110 CO2 21 meq/L 20-30 CREATININE, Serum 0.84 mg/dL 0.50-1.40 eGFR(CKD-EPI 2020) >90 mL/min >60 Vital Signs: All taken on the encounter date This section contains inpatient and outpatient Vital Signs collected on the date of the Encounter. Date/Time Temperature Pulse Blood Pressure Respiratory Rate SP02 Pain Height Weight Body Mass Index Source Nov 27, 2023 11:09 AM 97.7 84 127/77 18 95 0 211.2 35 [place] [facility] [place] [facility] Social History: Smoking Status (Most current) and Tobacco Use (All prior to encounter date) This section includes the most current, and the historical, smoking and tobacco- related health factors from the [place] facility where the Encounter took place. Current Smoking Status This section includes the most current smoking, or tobacco-related health factor, from the [place] facility where the Encounter took place. Date/Time Current Smoking Status Comment [facility] Nov 27, 2023 11:00 AM VA-TOBACCO FORMER USER [place] [facility] [place] [facility] Tobacco Use History This section includes a history of the smoking, or tobacco-related health factors, that were collected on or before the date of the Encounter. The data comes from the [place] facility where the Encounter took place. Date/Time Smoking Status/Tobac co Use Comment Facility Nov 27, 2023 11:00 AM VA-TOBACCO QUIT 15 YRS OR MORE [facility] [place] [facility] Dec 02, 2022 08:00 AM VA-TOBACCO FORMER USER [place] [facility] [place] [facility] Dec 02, 2022 08:00 AM VA-TOBACCO QUIT 15 YRS OR MORE [facility] [place] [facility] Nov 05, 2021 10:30 AM VA-TOBACCO FORMER USER [facility] [place] [facility] Nov 05, 2021 10:30 AM VA-TOBACCO QUIT 1 TO < 5 YRS [facility] [place] [facility] Sep 14, 2020 02:00 PM VA-TOBACCO FORMER USER [facility] [place] [facility] Sep 14, 2020 02:00 PM VA-TOBACCO QUIT 5 TO < 15 YRS [facility] [place] [facility] Jan 22, 2018 03:40 PM QUIT TOBACCO USE > 7 YEARS AGO [facility] Jun 04, 2016 02:01 PM CURRENT SMOKER been smoking pass 20 yrs [facility] Jun 04, 2016 02:01 PM V1-PT DECLINES REF TO TOBACCO CESS PRGM [facility] Jun 04, 2016 02:01 PM V1-PT THINKING ABOUT QUIT TOBACCO USE [facility] Jul 18, 2014 03:31 PM V1-PT DECLINES REF TO TOBACCO CESS PRGM [facility] Jul 18, 2014 03:31 PM V1-PT DECLINES TOBACCO CESSATION MEDS [facility] Jul 18, 2014 03:31 PM V1-PT NOT INTERESTED IN QUIT TOBACCO USE [facility] Jan 09, 2014 10:43 AM CURRENT SMOKER pt smokes 1 pk of cigarettes per day. [facility] Jan 09, 2014 10:43 AM V1-PT THINKING ABOUT QUIT TOBACCO USE [facility] Aug 28, 2003 10:47 AM CURRENT SMOKER one pack q 6 days - he has cut down from 3 PPD. He is in the process of quitting [facility] Radiology Reports: +/- 30 days of [...] the Encounter. The data comes from all [facility] facilities. Date/Time Radiology Report Provider Source Dec 10, 2023 10:31 AM ULTRASOUND AAA SCREENING: CHAYA PEDRO [id number] [id number] M Exm Date: DEC 10, 2023@10:31 Req Phys: ELIZABET ROBINS Pat Loc: CWM/NO/PACT 5 (Req'g Loc) Img Loc: ULTRASOUND Service: Unknown (Case [id number] COMPLETE) ULTRASOUND AAA SCREENING (US Detailed) CPT:11219 Reason for Study: US Abdomen, AAA screen Clinical History: Report Status: Verified Date Reported: DEC 10, 2023 Date Verified: DEC 10, 2023 Trucking Contractor E-Sig:/ES/RAYMOND LEAL JR Report: Study: AAA screening [...] Primary Interpreting Staff: RAYMOND LEAL JR, Radiologist (Trucking Contractor) /RAYMOND SHELTON JR [place] [facility]
--- OUTSIDE RECORDS SUMMARY | 2024-11-01 07:56 | XMS_ITS | Encounter Summary ---
Author Name [facility] [place] [facility] [place] Address [address] [place] [address] Care Team Providers Care Funeral Arranger Name Role Phone ELIZABET ROBINS Primary Care [...] Paul's Name Patient's Relationship to Policy Paul [facility] CE ORGANIZ [facility] Apr 18, 2018 [id number] WILLIS,MAR JUDITH SPOUSE ANTHEM [place] OF [place] ([place] [facility]IZ [facility]DA [facility] Apr 18, 2018 [id number] WILLIS,MAR JUDITH SPOUSE BCBS [facility]GANIZ [facility] SHARE ACTIV E Apr 18, 2018 [id number] WILLIS,MAR JUDITH SPOUSE BCBS OF [facility] CE ORGANIZ [facility] Apr 18, 2018 [id number] WILLIS,MAR JUDITH PATIENT BCBS OF [facility] CE ORGANIZ BRENDA [facility] Apr 18, 2018 [id number] WILLIS,MAR JUDITH SPOUSE BCBS OF [place] PREFERRED PROVIDER ORGANIZAT ION (PPO) BRENDA [facility] AC Apr 18, 2018 [id number] WILLIS,MAR JUDITH SPOUSE BCBS OF [facility] CE ORGANIZ BRENDA [facility] ACT Apr 18, 2018 [id number] WILLIS,MAR JUDITH SPOUSE BCBS OF [facility] CE ORGANIZ BRENDA [facility] AC Apr 18, 2018 [id number] WILLIS,MAR JUDITH SPOUSE [place] PRESCRIPT ION BRENDA [facility] AC Oct 19, 2022 [id number] WILLIS,LAVELLE AEL SPOUSE [place] PRESCRIPT ION RX22M A Oct 19, 2022 RX22MA [id number] WILLIS,LAVELLE AEL PATIENT [place] PRESCRIPT ION RX22M B Oct 19, 2022 RX22MB [id number] WILILS,LAVELLE AEL PATIENT [place] PRESCRIPT [place] Oct 19, 2022 RX22MA [id number] WILLIS, SPOUSE [place] PRESCRIPT ION RX22M B Oct 19, 2022 RX22MB [id number] [phone] WILLIS,MAR JUDITH SPOUSE [place] PRESCRIPT ION RX Oct 19, 2022 RX22MB [id number] [phone] WILLIS,MAR JUDITH SPOUSE [place] ([id number]) PRESCRIPT ION [place] OF [place] Oct 19, 2022 [id number] WILLIS,MAR JUDITH SPOUSE [place] ([facility] CE ORGANIZ BRENDA [facility] AC Apr 18, 2018 [id number] WILLIS,EDILBERTO SOTELOZA SPOUSE [employer] PRESCRIPT ION [place] 2018 L4TA [id number] WILLIS,EDILBERTO SOTELOZA SPOUSE [employer] ([id number]) PRESCRIPT ION Apr 18, 2018 L4TA [id number] WILLIS,EDILBERTO SOTELOZA SPOUSE [employer] ([id number]) PRESCRIPT ION L4TA* Apr 18, 2020 L4TA [id number] WILLIS,EDILBERTO PALAFOXA SPOUSE [employer] ([id number]) PRESCRIPT ION L4TA* Apr 18, 2018 L4TA [id number] WILLIS,EDILBERTO PALAFOXA SPOUSE [employer] ([id number]) PRESCRIPT ION L4TA Apr 18, 2018 L4TA [id number] WILLIS,EDILBERTO SOTELOZA SPOUSE [employer] ([id number]) PRESCRIPT ION Apr 18, 2018 L4TA [id number] WILLISEDILBERTOZA SPOUSE [employer] ([id number]) PRESCRIPT ION Apr 18, 2018 L4TA [id number] WILLIS,EDILBERTO WONG SPOUSE [employer]-MINOR BROGATION PRESCRIPT ION [place] OF [place] Apr 18, 2020 L4TA [id number] WILLIS,EDILBERTO WONG SPOUSE [facility] CE ORGANIZAT ION W/OUT OF NETWORK BENEFITS [facility] ACT Apr 18, 2018 [id number] [phone] WILLISEDILBERTO SPOUSE [place] BCBS [facility] ([facility]) [facility]ALTH [facility] CE ORGANIZAT ION [facility]EN [facility] AC Apr 18, 2018 [id number] WILLISEDILBERTO SPOUSE MEDICARE (WNR) MEDICARE (M) PART A Mar 19, 1990 PART A [id number] [phone] WILLISLAVELLE AEL PATIENT MEDICARE (WNR) MEDICARE (M) PART A Mar 19, 1990 PART A [id number] WILLIS,LAVELLE AEL PATIENT MEDICARE (WNR) MEDICARE (M) PART A Mar 19, 1990 PART A [id number] WILLIS,LAVELLE AEL PATIENT MEDICARE (WNR) MEDICARE (M) PART A Mar 19, 1990 PART A [id number] [phone] WILLIS,LAVELLE AEL PATIENT MEDICARE (WNR) MEDICARE (M) PART A Mar 19, 1990 PART A [id number] WILLIS,LAVELLE AEL PATIENT MEDICARE (WNR) MEDICARE (M) PART A Mar 19, 1990 PART A [id number] WILLIS,LAVELLE AEL PATIENT MEDICARE (WNR) MEDICARE (M) PART A Mar 19, 1990 PART A [id number] WILLIS,LAVELLE AEL PATIENT MEDICARE (WNR) MEDICARE (M) PART A Mar 19, 1990 PART A [id number] WILLIS,LAVELLE AEL PATIENT MEDICARE (WNR) MEDICARE (M) PART A Mar 19, 1990 PART A [id number] WILLIS,LAVELLE AEL PATIENT MEDICARE (WNR) MEDICARE (M) PART A Mar 19, 1990 PART A [id number] WILLIS,LAVELLE AEL PATIENT MEDICARE (WNR) MEDICARE (M) PART A Mar 19, 1990 PART A [id number] [phone] WILLIS,LAVELLE AEL PATIENT Selected Encounter This section includes the information on record at [place] for the Encounter. Date/Time Encounter Type Encounter Description Reason Pro vider Source Nov 27, 2023 12:02 PM Outpatient Encounter PRIMARY CARE/MEDICINE IHE Encounter Template Text not used by [place] Plan of Treatment: Future Appointments (+ 6 [...] 20 appointments. The data comes from all [place] treatment facilities. Appointment Date/Time Appointment Type Appointme nt Facility Name Dec 10, 2023 10:00 AM AMBULATORY - MEDICINE [facility] [place] [facility] Dec 10, 2023 10:30 AM AMBULATORY - NONE [facility] [place] [facility] Dec 14, 2023 08:00 AM AMBULATORY - MEDICINE [facility] [place] [facility] Jan 13, 2024 03:00 PM AMBULATORY - MEDICINE [facility] [place] [facility] Feb 04, 2024 08:00 AM AMBULATORY - MEDICINE [facility] [place] [facility] February 17, 2024 12:00 PM AMBULATORY - MEDICINE [facility] [place] [facility] Mar 28, 2024 10:00 AM AMBULATORY - NONE [facility] [place] [facility] Mar 28, 2024 10:30 AM AMBULATORY - MEDICINE [facility] [place] [facility] Mar 28, 2024 01:00 PM AMBULATORY - MEDICINE [facility] [place] [facility] Apr 06, 2024 01:30 PM AMBULATORY - MEDICINE [facility] [place] [facility] Lab Results: +/- 30 days of the encounter This section includes the Chemistry and Hematology Lab Results on record with [place] for the patient. Radiology Reports and Pathology Reports are provided separately, in subsequent sections. Lab Results This section contains the Chemistry/Hematology Results that were resulted 30 days before or 30 daysafter the date of the Encounter. Date/Time Source Result Type Result - Unit Interpretation Reference Range Comment Nov 27, 2023 08:43 AM [facility] [place] [facility] LIPID PANEL FASTING Specimen Type: SERUM No comment entered. Ordering Provider: KIMBER MACK Report Released Date/Time: Jun 04, 2023 10:09 AM Reporting Lab: [facility] [place] [facility] [address] [facility] [address] Performing Lab: [facility] [address] CHOLESTEROL 136 mg/dL TRIGLYCERIDE 119 mg/dL 0-150 LDL calculated 69 mg/dL 0-129 CHOL/HDL 3.2 HDL CHOLESTEROL 43 mg/dL 40-60 Nov 27, 2023 08:43 AM [facility] HEMOGLOBIN A1C PANEL Specimen Type: BLOOD [...] Jun 04, 2023 10:09 AM Reporting Lab: [address] [address] Performing Lab: [address] [address] HEMOGLOBIN A1C 6.1 H 4.0-5.6 Nov 27, 2023 08:43 AM [facility] MICROALBUMIN CREATININE RATIO PANEL Specimen Type: URINE No comment entered. Ordering Provider: KIMBER MACK Report Released Date/Time: Jun 04, 2023 10:09 AM Reporting Lab: [address] [address] Performing Lab: [address] [address] MICROALBUMIN/C REATININE RATIO 5.7 mg/g 0-29.9 MICROALBUMIN,Q UANTITATIVE 0.6 mg/dL RR UNAVAIL CREATININE URINE 104.48 mg/dL Nov 27, 2023 08:43 AM [facility] BASIC METABOLIC PANEL (fasting) Specimen Type: SERUM No comment entered. Ordering Provider: KIMBER MACK Report Released Date/Time: Jun 04, 2023 10:09 AM Reporting Lab: [address] [address] Performing Lab: [address] [address] UREA NITROGEN 12 mg/dL 7-25 GLUCOSE 133 [...] 84 127/77 18 95 0 211.2 35 [place] [facility] [place] [facility] Social History: Smoking Status (Most current) and Tobacco Use (All prior to encounter date) This section includes the most current, and the historical, smoking and tobacco- related health factors from the [place] facility where the Encounter took place. Current Smoking Status This section includes the most current smoking, or tobacco-related health factor, from the [place] facility where the Encounter took place. Date/Time Current Smoking Status Comment [facility] Nov 27, 2023 11:00 AM VA-TOBACCO FORMER USER [place] [facility] [place] [facility] Tobacco Use History This section includes a history of the smoking, or tobacco-related health factors, that were collected on or before the date of the Encounter. The data comes from the [place] facility where the Encounter took place. Date/Time Smoking Status/Tobac co Use Comment Facility Nov 27, 2023 11:00 AM VA-TOBACCO QUIT 15 YRS OR MORE [facility] [place] [facility] Dec 02, 2022 08:00 AM VA-TOBACCO FORMER USER [facility] [place] [facility] Dec 02, 2022 08:00 AM VA-TOBACCO QUIT 15 YRS OR MORE [facility] [place] [facility] Nov 05, 2021 10:30 AM VA-TOBACCO FORMER USER [facility] [place] [facility] Nov 05, 2021 10:30 AM VA-TOBACCO QUIT 1 TO < 5 YRS [facility] [place] [facility] Sep 14, 2020 02:00 PM VA-TOBACCO FORMER USER [facility] [place] [facility] Sep 14, 2020 02:00 PM VA-TOBACCO QUIT 5 TO < 15 YRS [facility] [place] [facility] Jan 22, 2018 03:40 PM QUIT TOBACCO USE > 7 YEARS AGO [facility] Jun 04, 2016 02:01 PM CURRENT SMOKER been smoking pass 20 yrs [facility] Jun 04, 2016 02:01 PM V1-PT DECLINES REF TO TOBACCO CESS PRGM [facility] Jun 04, 2016 02:01 PM V1-PT THINKING ABOUT QUIT TOBACCO USE [facility] Jul 18, 2014 03:31 PM V1-PT DECLINES REF TO TOBACCO CESS PRGM [facility] Jul 18, 2014 03:31 PM V1-PT DECLINES TOBACCO CESSATION MEDS [facility] Jul 18, 2014 03:31 PM V1-PT NOT INTERESTED IN QUIT TOBACCO USE [facility] Jan 09, 2014 10:43 AM CURRENT SMOKER pt smokes 1 pk of cigarettes per day. [facility] Jan 09, 2014 10:43 AM V1-PT THINKING ABOUT QUIT TOBACCO USE [facility] Aug 28, 2003 10:47 AM CURRENT SMOKER one pack q 6 days - he has cut down from 3 PPD. He is in the process of quitting [facility] Radiology Reports: +/- 30 days of [...] the Encounter. The data comes from all [facility] facilities. Date/Time Radiology Report Provider Source Dec 10, 2023 10:31 AM ULTRASOUND AAA SCREENING: CHAYA PEDRO [id number] -[id number] M Exm Date: DEC 10, 2023@10:31 Req Phys: ELIZABET ROBINS Pat Loc: CWM/NO/PACT 5 (Req'g Loc) Img Loc: ULTRASOUND Service: Unknown (Case [id number] COMPLETE) ULTRASOUND AAA SCREENING (US Detailed) CPT:56043 Reason for Study: US Abdomen, AAA screen Clinical History: Report Status: Verified Date Reported: DEC 10, 2023 Date Verified: DEC 10, 2023 Financial Assistance Specialist E-Sig:/[email or web address] LEAL JR Report: Study: AAA screening ultrasound. [...] Primary Interpreting Staff: RAYMOND LEAL JR, Radiologist (Financial Assistance Specialist) /RAYMOND SHELTON JR [facility] Encounter Notes: All associated encounter notes This section contains the clinical notes associated to the Encounter. Date/Time Encounter Note(s) Provider Source Nov 27, 2023 12:02 PM ADMINISTRATIVE NOT E: LOCAL TITLE: ADMINISTRATIVE RECALL NOTE STANDARD TITLE: ADMINISTRATIVE NOTE DATE OF NOTE: NOV 27, 2023@12:02 ENTRY DATE: NOV 27, 2023@12:02:43 AUTHOR: THANH LUCAS EXP COSIGNER: URGENCY: STATUS: COMPLETED RTC orders: Able to contact patient: Spoke to Patient/Patient customer loyalty representative per policy utilizing HIPAA Guidelines. Identity actively confirmed by: Other:last 4 Patient Information/Action: Vet will have spouce call to schedule appt. /gaetano/ THANH LUCAS Advanced Release And Technical Records Clerk Signed: 11/27/2023 12:03 THANH LUCAS [facility]
--- OUTSIDE RECORDS SUMMARY | 2024-11-01 07:56 | XMS_ITS ---
Author Name [facility] [place] [facility] [place] Address [address] [place] [address] Care Team Providers Care Manager Graphic Name Role Phone ELIZABET ROBINS Primary Care [...] Paul's Name Patient's Relationship to Policy Paul [facility] CE ORGANIZ [facility] AC Apr 18, 2018 [id number] WILLIS,MAR JUDITH SPOUSE ANTHEM [place] OF [place] ([place]) [facility] CE ORGANIZ BRENDA [facility] Apr 18, 2018 [id number] WILLIS,MAR JUDITH SPOUSE BCBS [facility] CE ORGANIZ [facility] SHARE ACTIV E Apr 18, 2018 [id number] WILLIS,MAR JUDITH SPOUSE BCBS OF [facility] CE ORGANIZ [facility] Apr 18, 2018 [id number] WILLIS,MAR JUDITH PATIENT BCBS OF [facility] CE ORGANIZ BRENDA [facility] Apr 18, 2018 [id number] WILLIS,MAR JUDITH SPOUSE [place] PREFERRED PROVIDER ORGANIZAT ION (PPO) BRENDA [facility] AC Apr 18, 2018 [id number] [phone] WILLIS,MAR JUDITH SPOUSE BCBS OF [facility] CE ORGANIZ BRENDA [facility] ACT Apr 18, 2018 [id number] WILLIS,MAR JUDITH SPOUSE BCBS OF [facility] CE ORGANIZ BRENDA [facility] AC Apr 18, 2018 [id number] [phone] WILLIS,MAR JUDITH SPOUSE [place] PRESCRIPT ION RX22M A Oct 19, 2022 [id number] [id number] WILLIS,LAVELLE AEL PATIENT [place] PRESCRIPT ION RX22M B Oct 19, 2022 [id number] WILLIS,LAVELLE AEL PATIENT [place] PRESCRIPT ION BRENDA [facility] AC Oct 19, 2022 [id number] [phone] WILLIS,LAVELLE AEL SPOUSE [place] PRESCRIPT [place] Oct 19, 2022 [id number] WILLIS, SPOUSE [place] PRESCRIPT ION RX22M B Oct 19, 2022 RX22MB [id number] [phone] WILLIS,MAR JUDITH SPOUSE [place] PRESCRIPT ION RX Oct 19, 2022 [id number] [phone] WILLIS,MAR JUDITH SPOUSE [place] ([id number]) PRESCRIPT ION [place] Oct 19, 2022 [id number] WILLIS,MAR JUDITH SPOUSE [place] BC[place] ([facility] CE ORGANIZ BRENDA [facility] AC Apr 18, 2018 [id number] [phone] WILLIS,EDILBERTO SOTELOZA SPOUSE [employer] [place] PRESCRIPT [place] 2018 L4TA [id number] WILLIS,EDILBERTO SOTELOZA SPOUSE [employer] ([id number]) PRESCRIPT ION Apr 18, 2018 L4TA [id number] [phone] WILLIS,EDILBERTO SOTELOZA SPOUSE [employer] ([id number]) PRESCRIPT ION L4TA* Apr 18, 2020 L4TA [id number] [id number] WILLISEDILBERTOA SPOUSE [employer] ([id number]) PRESCRIPT ION L4TA* Apr 18, 2018 L4TA [id number] WILLIS,EDILBERTO PALAFOXA SPOUSE [employer] ([id number]) PRESCRIPT ION L4TA Apr 18, 2018 L4TA [id number] WILLIS,EDILBERTO WONG SPOUSE [employer] ([id number]) PRESCRIPT ION Apr 18, 2018 L4TA [id number] WILLISEDILBERTO SPOUSE [employer] ([id number]) PRESCRIPT ION Apr 18, 2018 L4TA [id number] WILLISEDILBERTO SPOUSE EXPRESS [employer]-MINOR BROGATION PRESCRIPT ION [place] Apr 18, 2020 L4TA [id number] WILLIS,EDILBERTO WONG SPOUSE RUMELY PILGR ([facility] CE ORGANIZAT ION W/OUT OF NETWORK BENEFITS [facility] RSD ACT Apr 18, 2018 [id number] [phone] EDILBERTO PEDRO SPOUSE [place] BCBS [facility] (BLUECARD) [facility] CE ORGANIZAT ION [facility] AC Apr 18, 2018 [id number] [phone] EDILBERTO PEDRO SPOUSE MEDICARE (WNR) MEDICARE (M) PART A Mar 19, 1990 PART A [id number] WILLISLAVELLE AEL PATIENT MEDICARE (WNR) MEDICARE (M) PART A Mar 19, 1990 PART A [id number] WILLIS,LAVELLE AEL PATIENT MEDICARE (WNR) MEDICARE (M) PART A Mar 19, 1990 PART A [id number] WILLIS,LAVELLE AEL PATIENT MEDICARE (WNR) MEDICARE (M) PART A Mar 19, 1990 PART A [id number] [phone] WILLIS,LAVELLE AEL PATIENT MEDICARE (WNR) MEDICARE (M) PART A Mar 19, 1990 PART A [id number] WILLIS,LAVELLE AEL PATIENT MEDICARE (WNR) MEDICARE (M) PART A Mar 19, 1990 PART A [id number] WILLIS,LAVELLE AEL PATIENT MEDICARE (WNR) MEDICARE (M) PART A Mar 19, 1990 PART A [id number] WILLIS,LAVELLE AEL PATIENT MEDICARE (WNR) MEDICARE (M) PART A Mar 19, 1990 PART A [id number] WILLIS,LAVELLE AEL PATIENT MEDICARE (WNR) MEDICARE (M) PART A Mar 19, 1990 PART A [id number] WILLIS,LAVELLE AEL PATIENT MEDICARE (WNR) MEDICARE (M) PART A Mar 19, 1990 PART A [id number] [phone] WILLIS,LAVELLE AEL PATIENT MEDICARE (WNR) MEDICARE (M) PART A Mar 19, 1990 PART A [id number] WILLIS,LAVELLE AEL PATIENT Selected Encounter This section includes the information on record at [place] for the Encounter. Date/Time Encounter Type Encounter Description Reason Pro vider Source Nov 12, 2023 12:00 AM Outpatient Encounter COMMUNITY CARE CONSULT IHE Encounter Template Text not used by [place] Plan of Treatment: Future Appointments (+ 6 [...] 20 appointments. The data comes from all [place] treatment facilities. Appointment Date/Time Appointment Type Appointme nt Facility Name Nov 27, 2023 11:00 AM AM[facility]ULATORY [facility] MEDICINE [facility] [place] [facility] Dec 10, 2023 10:00 AM AM[facility]ULATORY [facility]ICINE [facility] [place] [facility] Dec 10, 2023 10:30 AM AMBULATORY - NONE [facility] [place] [facility] Dec 14, 2023 08:00 AM [facility] [place] [facility] Jan 13, 2024 03:00 PM AMBULATORY - MEDICINE [facility] [place] [facility] Feb 04, 2024 08:00 AM AMBULATORY - MEDICINE [facility] [place] [facility] February 17, 2024 12:00 PM AMBULATORY - MEDICINE [facility] [place] [facility] Mar 28, 2024 10:00 AM AMBULATORY - NONE [facility] [place] [facility] Mar 28, 2024 10:30 AM AMBULATORY - MEDICINE [facility] [place] [facility] Mar 28, 2024 01:00 PM AMBULATORY - MEDICINE [facility] [place] [facility] Apr 06, 2024 01:30 PM AM[place]ULATORY - [place]ICINE [place] [facility] [place] [facility] Lab Results: +/- 30 days of the encounter This section includes the Chemistry and Hematology Lab Results on record with [place] for the patient. Radiology Reports and Pathology Reports are provided separately, in subsequent sections. Lab Results This section contains the Chemistry/Hematology Results that were resulted 30 days before or 30 daysafter the date of the Encounter. Date/Time Source Result Type Result - Unit Interpretation Reference Range Comment Nov 27, 2023 08:43 AM [place] [facility] [place] [facility] LIPID PANEL FASTING Specimen Type: SERUM No comment entered. Ordering Provider: KIMBER MACK Report Released Date/Time: Jun 04, 2023 10:09 AM Reporting Lab: [place] [facility] [place] [address] [address] Performing Lab: [facility] [address] [address] CHOLESTEROL 136 mg/dL TRIGLYCERIDE 119 mg/dL 0-150 LDL calculated 69 mg/dL 0-129 CHOL/HDL 3.2 HDL CHOLESTEROL 43 mg/dL 40-60 Nov 27, 2023 08:43 AM [facility] MICROALBUMIN CREATININE RATIO PANEL Specimen Type: URINE No comment entered. Ordering Provider: KIMBER MACK Report Released Date/Time: Jun 04, 2023 10:09 AM Reporting Lab: [facility] [address] [address] Performing Lab: [facility] [address] [address] MICROALBUMIN/C REATININE RATIO 5.7 mg/g 0-29.9 MICROALBUMIN,Q UANTITATIVE 0.6 mg/dL RR UNAVAIL CREATININE URINE 104.48 mg/dL Nov 27, 2023 08:43 AM [facility] HEMOGLOBIN A1C PANEL Specimen Type: [...] Jun 04, 2023 10:09 AM Reporting Lab: [facility] [address] [address] Performing Lab: [address] [address] HEMOGLOBIN A1C 6.1 H 4.0-5.6 Nov 27, 2023 08:43 AM [facility] BASIC METABOLIC PANEL (fasting) Specimen Type: SERUM No comment entered. Ordering Provider: KIMBER MACK Report Released Date/Time: Jun 04, 2023 10:09 AM Reporting Lab: [facility] [address] [address] Performing Lab: [facility] [address] [address] UREA NITROGEN 12 mg/dL 7-25 GLUCOSE 133 [...] and tobacco- related health factors from the [place] facility where the Encounter took place. Current Smoking Status This section includes the most current smoking, or tobacco-related health factor, from the [place] facility where the Encounter took place. Date/Time Current Smoking Status Comment [facility] Dec 02, 2022 08:00 AM VA-TOBACCO FORMER USER [facility] Tobacco Use History This section includes a history of the smoking, or tobacco-related health factors, that were collected on or before the date of the Encounter. The data comes from the [place] facility where the Encounter took place. Date/Time Smoking Status/Tobac co Use Comment [facility] Dec 02, 2022 08:00 AM VA-TOBACCO QUIT 15 YRS OR MORE [facility] Nov 05, 2021 10:30 AM [facility] Nov 05, 2021 10:30 AM VA-TOBACCO QUIT 1 TO < 5 YRS [facility] Sep 14, 2020 02:00 PM [facility] Sep 14, 2020 02:00 PM VA-TOBACCO QUIT 5 TO < 15 YRS [facility] [place] [facility] Jan 22, 2018 03:40 PM QUIT TOBACCO USE > 7 YEARS AGO [facility] Jun 04, 2016 02:01 PM CURRENT SMOKER been smoking pass 20 yrs [facility] Jun 04, 2016 02:01 PM V1-PT DECLINES REF TO TOBACCO CESS PRGM [facility] Jun 04, 2016 02:01 PM V1-PT THINKING ABOUT QUIT TOBACCO USE [facility] Jul 18, 2014 03:31 PM V1-PT DECLINES REF TO TOBACCO CESS PRGM [facility] Jul 18, 2014 03:31 PM V1-PT DECLINES TOBACCO CESSATION MEDS [facility] Jul 18, 2014 03:31 PM V1-PT NOT INTERESTED IN QUIT TOBACCO USE [facility] Jan 09, 2014 10:43 AM CURRENT SMOKER pt smokes 1 pk of cigarettes per day. [facility] Jan 09, 2014 10:43 AM V1-PT THINKING ABOUT QUIT TOBACCO USE [facility] Aug 28, 2003 10:47 AM CURRENT SMOKER one pack q 6 days - he has cut down from 3 PPD. He is in the process of quitting [facility] Radiology Reports: +/- 30 days [...] the Encounter. The data comes from all [facility] facilities. Date/Time Radiology Report Provider Source Dec 10, 2023 10:31 AM ULTRASOUND AAA SCREENING: LAVELLE PEDROAEL [id number] -[id number] M Exm Date: DEC 10, 2023@10:31 Req Phys: ELIZABET ROBINS Pat Loc: CWM/NO/PACT 5 (Req'g Loc) Img Loc: ULTRASOUND Service: Unknown (Case [id number] COMPLETE) ULTRASOUND AAA SCREENING (US Detailed) CPT:55514 Reason for Study: US Abdomen, AAA screen Clinical History: Report Status: Verified Date Reported: DEC 10, 2023 Date Verified: DEC 10, 2023 Emergency Room Physician Assistant E-Sig:/ES/RAYMOND LEAL JR Report: Study: AAA screening [...] Primary Interpreting Staff: RAYMOND LEAL JR, Radiologist (Emergency Room Physician Assistant) /RAYMOND SHELTON JR [facility] Encounter Notes: All associated encounter notes This section contains the clinical notes associated to the Encounter. Date/Time Encounter Note(s) Provider Source Nov 12, 2023 12:00 AM NONVA CONSULT: LOCAL TITLE: COMMUNITY CARE-CONSULT RESULT NOTE STANDARD TITLE: NONVA CONSULT DATE OF NOTE: NOV 12, 2023 ENTRY DATE: NOV 13, 2023@08:26:52 AUTHOR: ANKIT ESTRADA MA EXP COSIGNER: URGENCY: STATUS: COMPLETED VistA Imaging - Scanned Document SCANNED DOCUMENT SIGNATURE NOT REQUIRED Electronically Filed: 11/13/2023 by: ANKIT ESTRADA TELE GROUT SEWER LINE REPAIRER ANKIT ESTRADA [facility]
--- OUTSIDE RECORDS SUMMARY | 2024-11-01 07:56 | XMS_ITS ---
Author Name [facility] [place] Address [address] [place] [address] Care Team Providers Care Perianesthesia Rn Name Role Phone ELIZABET ROBINS Primary Care [...] Paul's Name Patient's Relationship to Policy Paul [facility] CE ORGANIZ [facility] AC Apr 18, 2018 [id number] [phone] WILLIS,MAR JUDITH SPOUSE ANTHEM BCBS OF [place] (BLUECARD) [facility] CE ORGANIZ NMTRISTEN [facility] Apr 18, 2018 [id number] WILLIS,MAR JUDITH SPOUSE BCBS [facility] CE [facility]GANIZ [facility] E Apr 18, 2018 [id number] WILLIS,MAR JUDITH SPOUSE BCBS OF [facility] CE ORGANIZ [facility] Apr 18, 2018 [id number] WILLIS,MAR JUDITH PATIENT BCBS OF [facility] CE ORGANIZ BRENDA MCCABE [facility] Apr 18, 2018 [id number] WILLIS,MAR JUDITH SPOUSE BC[place] OF [place] PREFERRED PROVIDER ORGANIZAT ION (PPO) BRENDA MCCABE [facility] AC Apr 18, 2018 [id number] WILLIS,MAR JUDITH SPOUSE BCBS OF [facility] CE ORGANIZ BRENDA MCCABE [facility] ACT Apr 18, 2018 [id number] WILLIS,MAR JUDITH SPOUSE BCBS OF [facility] CE ORGANIZ BRENDA MCCABE [facility] AC Apr 18, 2018 [id number] [phone] WILLIS,MAR JUDITH SPOUSE [place] PRESCRIPT ION RX22M B Oct 19, 2022 [id number] [phone] WILLIS,MAR JUDITH SPOUSE [place] PRESCRIPT ION RX22M A Oct 19, 2022 [id number] WILLIS,LAVELLE AEL PATIENT [place] PRESCRIPT ION RX22M B Oct 19, 2022 [id number] WILLIS,LAVELLE AEL PATIENT [place] PRESCRIPT ION BRENDA MCCABE [facility] AC Oct 19, 2022 [id number] [phone] WILLIS,LAVELLE AEL SPOUSE [place] PRESCRIPT ION RX Oct 19, 2022 [id number] WILLIS,MAR JUDITH SPOUSE [place] PRESCRIPT ION [place] OF [place] Oct 19, 2022 [id number] WILLIS, SPOUSE [place] ([id number]) PRESCRIPT I[place] Oct 19, 2022 [id number] WILLIS,MAR JUDITH SPOUSE [place] BC[place] ([facility] CE ORGANIZ [facility] AC Apr 18, 2018 [id number] WILLIS,EDILBERTO MANCIAZA SPOUSE [employer] PRESCRIPT I[place] 2018 L4TA [id number] WILLIS,EDILBERTO JUDITH SPOUSE [employer] ([id number]) PRESCRIPT ION Apr 18, 2018 L4TA [id number] WILLIS,EDILBERTO JUDITH SPOUSE [employer] ([id number]) PRESCRIPT ION L4TA* Apr 18, 2020 L4TA [id number] WILLISEDILBERTOA SPOUSE [employer] ([id number]) PRESCRIPT ION L4TA Apr 18, 2018 L4TA [id number] WILLIS,EDILBERTO MANCIAZA SPOUSE [employer] ([id number]) PRESCRIPT ION L4TA* Apr 18, 2018 L4TA [id number] WILLIS,EDILBERTO PALAFOXA SPOUSE [employer] ([id number]) PRESCRIPT ION Apr 18, 2018 L4TA [id number] WILLISEDILBERTO SPOUSE [employer] ([id number]) PRESCRIPT ION Apr 18, 2018 L4TA [id number] WILLIS,EDILBERTO WONG SPOUSE [employer]-MINOR [employer]OG[place] PRESCRIPT ION BCBS OF [place] Apr 18, 2020 L4TA [id number] WILLIS,EDILBERTO WONG SPOUSE [facility] CE ORGANIZAT ION W/OUT OF NETWORK BENEFITS [facility] ACT Apr 18, 2018 [id number] WILLISEDILBERTO SPOUSE [place] BCBS [facility] (BLUECARD) [facility] CE ORGANIZAT ION [facility] AC Apr 18, 2018 [id number] [phone] WILLIS,EDILBERTO WONG SPOUSE MEDICARE (WNR) MEDICARE (M) PART A Mar 19, 1990 PART A [id number] WILLISLAVELLE AEL PATIENT MEDICARE (WNR) MEDICARE (M) PART A Mar 19, 1990 PART A [id number] [phone] WILLIS,LAVELLE AEL PATIENT MEDICARE (WNR) MEDICARE (M) PART A Mar 19, 1990 PART A [id number] [phone] WILLIS,LAVELLE AEL PATIENT MEDICARE (WNR) MEDICARE (M) PART A Mar 19, 1990 PART A [id number] [phone] WILLIS,LAVELLE AEL PATIENT MEDICARE (WNR) MEDICARE (M) PART A Mar 19, 1990 PART A [id number] [phone] WILLIS,LAVELLE AEL PATIENT MEDICARE (WNR) MEDICARE (M) PART A Mar 19, 1990 PART A [id number] WILLIS,LAVELLE AEL PATIENT MEDICARE (WNR) MEDICARE (M) PART A Mar 19, 1990 PART A [id number] WILLIS,LAVELLE AEL PATIENT MEDICARE (WNR) MEDICARE (M) PART A Mar 19, 1990 PART A [id number] WILLIS,LAVELLE AEL PATIENT MEDICARE (WNR) MEDICARE (M) PART A Mar 19, 1990 PART A [id number] [phone] WILLIS,LAVELLE AEL PATIENT MEDICARE (WNR) MEDICARE (M) PART A Mar 19, 1990 PART A [id number] WILLISLAVELLE AEL PATIENT MEDICARE (WNR) MEDICARE () PART A Mar 19, 1990 PART A [id number] WILLIS,LAVELLE AEL PATIENT Selected Encounter This section includes the information on record at [place] for the Encounter. Date/Time Encounter Type Encounter Description Reason Provider Source Nov 27, 2023 11:00 AM OFFICE O/P EST MOD 30 MIN PRIMARY CARE/MEDICINE ICD-10-CM N20.0 Calculus of kidney ELIZABET ROBINS IHBaldev Encounter Template Text not used by [place] Assessments - Encounter Diagnoses This section includes the primary and secondary diagnoses documented for the Encounter. Date/Time Primary/Secondary Diagnosis Diagnosis Name Provider Source Dec 10, 2023 09:59 AM PRIMARY Calculus of kidney JULIENNEELIZABET [facility] [place] [facility] Dec 10, 2023 09:59 AM SECONDARY Galeas's esophagus without dysplasia JULIENNEELIZABET [facility] [place] [facility] Dec 10, 2023 09:59 AM SECONDARY Encounter for immunization DEBBIE LANCASTER [place] [facility] [place] [facility] Dec 10, 2023 09:59 AM SECONDARY Essential (primary) hypertension JULIENNEELIZABET [facility] [place] [facility] Dec 10, 2023 09:59 AM SECONDARY Nonalcoholic steatohepatitis (CHAKRABORTY) JULIENNEELIZABETNE [facility] [place] [facility] Dec 10, 2023 09:59 AM SECONDARY Other psychoactive substance dependence, in remission JULIENNEELIZABET [facility] [place] [facility] Dec 10, 2023 09:59 AM SECONDARY Other seasonal allergic rhinitis JULIENNEELIZABET [facility] [place] [facility] Dec 10, 2023 09:59 AM SECONDARY Post-traumatic stress disorder, chronic JULIENNEELIZABET [facility] [place] [facility] Dec 10, 2023 09:59 AM SECONDARY Sleep apnea, unspecified JULIENNEELIZABET [facility] [place] [facility] Dec 10, 2023 09:59 AM SECONDARY Type 2 diabetes mellitus without complications JULIENNEELIZABET [facility] [place] [facility] Plan of Treatment: Future Appointments (+ 6 months) and Future Tests (+/- 45 days) The Plan of Treatment section includes future care activities for the patient from all [place] treatmentfacilities. This section includes future appointments and future orders which are active, pending or scheduled. Future Appointments This section includes appointments that were scheduled to occur 6 months from the date of the Encounter, up to a maximum of 20 appointments. The data comes from all [place] treatment facilities. Appointment Date/Time Appointment Type Appointme nt Facility Name Dec 10, 2023 10:00 AM AMBULATORY - MEDICINE [place] [facility] [place] [facility] Dec 10, 2023 10:30 AM AMBULATORY - NONE [place] [facility] [place] [facility] Dec 14, 2023 08:00 AM AMBULATORY - [place]IC[place] [facility] [place] [facility] Jan 13, 2024 03:00 PM AMBULATORY - [place]ICINE [place] [facility] [place] [facility] Feb 04, 2024 08:00 AM AMBULATORY - MEDICINE [facility] [place] [facility] February 17, 2024 12:00 PM AMBULATORY - [place]ICINE [place] [facility] [place] [facility] Mar 28, 2024 10:00 AM AMBULATORY - NONE [place] [facility] [place] [facility] Mar 28, 2024 10:30 AM AMBULATORY - MEDICINE [place] [facility] [place] [facility] Mar 28, 2024 01:00 PM AMBULATORY - MEDICINE [place] [facility] [place] [facility] Apr 06, 2024 01:30 PM AMBULATORY - [place]ICINE [place] [facility] [place] [facility] Lab Results: +/- 30 days of the encounter This section includes the Chemistry and Hematology Lab Results on record with [place] for the patient. Radiology Reports and Pathology Reports are provided separately, in subsequent sections. Lab Results This section contains the Chemistry/Hematology Results that were resulted 30 days before or 30 daysafter the date of the Encounter. Date/Time Source Result Type Result - Unit Interpretation Reference Range Comment Nov 27, 2023 08:43 AM [facility] LIPID PANEL FASTING Specimen Type: SERUM No comment entered. Ordering Provider: KIMBER MACK Report Released Date/Time: Jun 04, 2023 10:09 AM Reporting Lab: [facility] [address] [address] Performing Lab: [facility] [address] [address] CHOLESTEROL 136 mg/dL TRIGLYCERIDE 119 mg/dL 0-150 LDL calculated 69 mg/dL 0-129 CHOL/HDL 3.2 HDL CHOLESTEROL 43 mg/dL 40-60 Nov 27, 2023 08:43 AM [facility] HEMOGLOBIN A1C PANEL Specimen Type: BLOOD [...] 04, 2023 10:09 AM Reporting Lab: [facility] [address] [facility] [address] Performing Lab: [address] [address] HEMOGLOBIN A1C 6.1 H 4.0-5.6 Nov 27, 2023 08:43 AM [facility] MICROALBUMIN CREATININE RATIO PANEL Specimen Type: URINE No comment entered. Ordering Provider: KIMBER MACK Report Released Date/Time: Jun 04, 2023 10:09 AM Reporting Lab: [address] [address] Performing Lab: [address] [address] MICROALBUMIN/C REATININE RATIO 5.7 mg/g 0-29.9 MICROALBUMIN,Q UANTITATIVE 0.6 mg/dL RR UNAVAIL CREATININE URINE 104.48 mg/dL Nov 27, 2023 08:43 AM [facility] BASIC METABOLIC PANEL (fasting) Specimen Type: SERUM No comment entered. Ordering Provider: KIMBER MACK Report Released Date/Time: Jun 04, 2023 10:09 AM Reporting Lab: [address] [address] Performing Lab: [address] [address] UREA NITROGEN 12 mg/dL 7-25 GLUCOSE 133 [...] 84 127/77 18 95 0 211.2 35 [place] [facility] [place] [facility] Immunizations: All administered on the encounter date This section contains immunizations associated to the Encounter. Immunization Series Date Issued Reaction Comments COVID-19 (MODERNA), MRNA, LN P-S, PF, 50 MCG/0.5 ML (AGES 12+ YEARS) 1 Nov 27, 2023 INFLUENZA, HIGH-DOSE, QUADRIVALENT Nov 27, 2023 Social History: Smoking Status (Most current) and Tobacco Use (All prior to encounter date) This section includes the most current, and the historical, smoking and tobacco- related health factors from the [place] facility where the Encounter took place. Current Smoking Status This section includes the most current smoking, or tobacco-related health factor, from the [place] facility where the Encounter took place. Date/Time Current Smoking Status Comment Enrique mancia Nov 27, 2023 11:00 AM VA-TOBACCO FORMER USER [place] [facility] [place] [facility] Tobacco Use History This section includes a history of the smoking, or tobacco-related health factors, that were collected on or before the date of the Encounter. The data comes from the [place] facility where the Encounter took place. Date/Time Smoking Status/Tobac co Use Comment [facility] Nov 27, 2023 11:00 AM VA-TOBACCO QUIT 15 YRS OR MORE [place] [facility] [place] [facility] Dec 02, 2022 08:00 AM VA-TOBACCO FORMER USER [facility] [place] [facility] Dec 02, 2022 08:00 AM VA-TOBACCO QUIT 15 YRS OR MORE [facility] [place] [facility] Nov 05, 2021 10:30 AM VA-TOBACCO FORMER USER [facility] [place] [facility] Nov 05, 2021 10:30 AM VA-TOBACCO QUIT 1 TO < 5 YRS [facility] [place] [facility] Sep 14, 2020 02:00 PM VA-TOBACCO FORMER USER [facility] [place] [facility] Sep 14, 2020 02:00 PM VA-TOBACCO QUIT 5 TO < 15 YRS [facility] [place] [facility] Jan 22, 2018 03:40 PM QUIT TOBACCO USE > 7 YEARS AGO [facility] [place] [facility] Jun 04, 2016 02:01 PM CURRENT SMOKER been smoking pass 20 yrs [facility] Jun 04, 2016 02:01 PM V1-PT DECLINES REF TO TOBACCO CESS PRGM [facility] Jun 04, 2016 02:01 PM V1-PT THINKING ABOUT QUIT TOBACCO USE [facility] Jul 18, 2014 03:31 PM V1-PT DECLINES REF TO TOBACCO CESS PRGM [facility] Jul 18, 2014 03:31 PM V1-PT DECLINES TOBACCO CESSATION MEDS [facility] Jul 18, 2014 03:31 PM V1-PT NOT INTERESTED IN QUIT TOBACCO USE [facility] Jan 09, 2014 10:43 AM CURRENT SMOKER pt smokes 1 pk of cigarettes per day. [facility] Jan 09, 2014 10:43 AM V1-PT THINKING ABOUT QUIT TOBACCO USE [facility] Aug 28, 2003 10:47 AM CURRENT SMOKER one pack q 6 days - he has cut down from 3 PPD. He is in the process of quitting [facility] Radiology Reports: +/- 30 days of [...] Encounter. The data comes from all [facility] facilities. Date/Time Radiology Report Provider Source Dec 10, 2023 10:31 AM ULTRASOUND AAA SCREENING: CHAYA PEDRO [id number] -[id number] M Exm Date: DEC 10, 2023@10:31 Req Phys: ELIZABET ROBINS Pat Loc: CWM/NO/PACT 5 (Req'g Loc) Img Loc: ULTRASOUND Service: Unknown (Case [id number] COMPLETE) ULTRASOUND AAA SCREENING (US Detailed) CPT:62147 Reason for Study: US Abdomen, AAA screen Clinical History: Report Status: Verified Date Reported: DEC 10, 2023 Date Verified: DEC 10, 2023 Flare Worker E-Sig:/ES/RAYMOND LEAL JR Report: Study: AAA screening [...] Primary Interpreting Staff: RAYMOND LEAL JR, Radiologist (Flare Worker) /ARYMOND SHELTON JR [facility] Encounter Notes: All associated encounter notes This section contains the clinical notes associated to the Encounter. Date/Time Encounter Note(s) Provider Source Dec 10, 2023 01:31 PM PRIMARY CARE TELEPHONE ENCOUNTER NOTE: LOCAL TITLE: TELEPHONE NOTE/PRIMARY CARE STANDARD TITLE: PRIMARY CARE TELEPHONE ENCOUNTER NOTE DATE OF NOTE: DEC 10, 2023@13:31 ENTRY DATE: DEC 10, 2023@13:32:07 AUTHOR: ELIZABET ROBINS EXP COSIGNER: URGENCY: STATUS: COMPLETED Called vet to let him know about his Abdominal US and was negwative for AAA and that aorta was normal caliber, he was happy to hear also he had appt with Dr Mack and I will take over his metformin his last a1C was 6/1% and he continues to try to lose weight and if he continues to loose 20lbs and A1C in therapetic range could consider stopping metformin he is aware of plan and I will see him in a few weeks to discuss further he appreciated call /gaetano/ CIERRA GREGORY Nurse Practitioner Signed: 12/10/2023 13:33 ELIZABET ROBINS [facility] Nov 27, 2023 11:18 AM PRIMARY CARE NURSE PRACTITIONER OUTPATIENT NOTE: LOCAL TITLE: NURSE PRACTITIONER OUTPATIENT NOTE STANDARD TITLE: PRIMARY CARE NURSE PRACTITIONER OUTPATIENT NOTE DATE OF NOTE: NOV 27, 2023@11:18 ENTRY DATE: NOV 27, 2023@11:18:07 AUTHOR: ELIZABET ROBINS EXP COSIGNER: URGENCY: STATUS: COMPLETED NURSE PRACTITIONER OUTPATIENT NOTE Has ADDENDA Chief complaint: Pt is a 68 who comes in for follow up of medical problems as noted below. HPI: Nephrolithiasis Just recently had lithotripsy he follows with Dr Simmons He will have another lithotripsy next month since ignacia voiding well and denies any lowe back/renal pain Type II DM follows with Dr Mack, takes Atorva for risk reduction, metformin 500mg BID. Getting A1C and labs drawn today FAMILIA has been in remission many years,m since then PTSD has been stable PTSD, stable no MH at this time especially since he is sober and clean ANASTASIA cannot tolerate a CPAP declines wanting another sleep study or sleep med consult HTN stable on amlodipine Rhinitis takes Levocetirizine Galeas's esophagus takes famotidine at night SZ no SZ hx in a few years follows with Neurology Fatty liver, saw hepatology no need to f/u untles changes in LFTs PMH: Active problems - Computerized Problem List is the source for the followin. Peripheral neuropathy due to type 2 diabetes mellitus 2. Seasonal allergic rhinitis 3. Nonalcoholic steatohepatitis No need for f/u in liver clinic unless changes in Albumin, INR or LFTs 4. History of substance abuse MJ Cocaine ETOH --remission 5. Obesity 6. Diabetes mellitus type 2 A1c 8.9% (04/08/22). U-ACR ordered. Pt to f/u to discuss medication options. Also, discuss adding ACEi and statin 7. Elevated liver enzymes level AST/ALT 43/57 (04/08/22). Pt to f/u to discuss statin. Consider Fatty Liver Disease w/u. HCV screen. 8. Sleep apnea 9. Hypertension Amlo 10. Discuss ACEi w/ T2DM. Renal function reassuring 04/08/22. 10. 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 Diverticulosis [address] [facility] 13. Galeas's esophagus EGD 09/02/16 Dr. Hampton 14. Rosacea 15. Deep venous thrombosis of upper extremity LUE, basilic vein 16. Nephrolithiasis On CT at [facility] 02/07/2015. 17. Hyperlipidemia Total Chol/HDL/LDL/trigs: 154/41/84/145 (04/08/22). F/U to discuss statin w/ T2DM 18. Lower urinary tract symptoms due to benign prostatic hypertrophy (SNOMED CT PSA normal (04/08/22) 19. Family history of prostate cancer Father and three brothers. 20. Schizoaffective disorder (SNOMED CT 27083097) 21. Alcohol Dependence episodic 22. Periodontal Disease NEC 23. GERD 24. Seizure disorder (SNOMED CT 868317131) second to closed head injury 25. REFRACTION DISORDER NOS Allergies: AKWA TEARS, DIFLUCAN, PHENYTOIN, FLUOROMETHOLONE, REFRESH TEARS, OXYCODONE LEVETIRACETAM The following VA and Non-VA meds were reconciled with patient: Active and Recently Outpatient Medications (excluding Supplies): Active Outpatient Medications Status 1) ACCU-CHEK GUIDE (GLUCOSE) TEST STRIP USE 1 STRIP TO ACTIVE TEST BLOOD SUGARS TWO TIMES A WEEK 2) ALBUTEROL 3/IPRATROP 0.5MG/3ML INHL 3ML INHALE 1 VIAL ACTIVE (3ML) IN NEBULIZER EVERY 4 HOURS NEEDED FOR BRONCHOSPASM 3) ALBUTEROL 90MCG (CFC-F) 200D ORAL INHL INHALE 2 PUFFS ACTIVE BY MOUTH EVERY 4 HOURS NEEDED FOR SHORTNESS OF BREATH 4) AMLODIPINE BESYLATE 5MG TAB TAKE ONE TABLET BY MOUTH ACTIVE ONCE DAILY FOR BLOOD PRESSURE/HEART, DO NOT TAKE WITH GRAPEFRUIT JUICE 5) ATORVASTATIN CALCIUM 80MG TAB TAKE ONE-HALF TABLET BY ACTIVE MOUTH AT BEDTIME FOR CHOLESTEROL 6) DOXYCYCLINE HYCLATE 50MG CAP TAKE ONE CAPSULE BY ACTIVE MOUTH TWICE DAILY FOR INFECTION CAUSED BY BACTERIA 7) ERYTHROMYCIN 0.5% OPH OINT APPLY THIN RIBBON INTO ACTIVE EACH EYE TWICE DAILY NEEDED FOR EYE INFECTION 8) FAMOTIDINE 20MG TAB TAKE ONE TABLET BY MOUTH DAILY ACTIVE FOR STOMACH ACID 9) KETOTIFEN 0.025% OPH SOLN INSTILL 2 DROPS INTO EACH ACTIVE EYE ONCE DAILY FOR ITCHINESS, SWELLING (IF YOU WEAR CONTACT LENSES, WAIT 10 MINUTES BEFORE INSERTING LENSES) 10) LACTOBACILLUS ACIDOPHILUS CAP TAKE 1 CAPSULE BY MOUTH ACTIVE TWICE DAILY 11) LEVOCETIRIZINE DIHYDROCHLORIDE 5MG TAB TAKE ONE ACTIVE TABLET BY MOUTH EVERY EVENING FOR ALLERGIES 12) LIDOCAINE 5% PATCH APPLY 1 PATCH TOPICALLY EVERY 12 ACTIVE HOURS NEEDED (LEAVE PATCH ON FOR 12 HOURS, THEN REMOVE PATCH) 13) METFORMIN HCL 1000MG TAB TAKE ONE TABLET BY MOUTH ACTIVE TWICE DAILY FOR DIABETES 14) METRONIDAZOLE 0.75% TOP GEL APPLY SMALL AMOUNT ACTIVE TOPICALLY TWICE DAILY FOR ACNE ROSACEA Inactive Outpatient Medications Status 1) PEG 400 0.4%/PROP GLYCOL 0.3% OPH SOLN INSTILL 1 DROP INTO EACH EYE FOUR TIMES DAILY NEEDED DRY EYE 15 Total Medications Allergies: AKWA TEARS, DIFLUCAN, PHENYTOIN, FLUOROMETHOLONE, REFRESH TEARS, OXYCODONE LEVETIRACETAM VITAL SIGNS: 97.7 F [36.5 C] (11/27/2023 11:09) 84 (11/27/2023 11:09) 18 (11/27/2023 11:09) 127/77 (11/27/2023 11:09) 0 (11/27/2023 11:09) 65 in [165.1 cm] (08/27/2022 08:16) 211.2 lb [95.80 kg] (11/27/2023 11:09) BMI: 35.2 ROS SKIN: denies any rashes or suspicious lesions RESP: denies SOB or cough CV: denies CP or pedal Edema GI: denies Abd pain, hematochezia : denies hematuria, nocturia ENDO: denies polyuria, polydipsia Musculo: denies weakness or joint pain NEURO: denies seizure hx or paresthesia's Mental Health: Denies SI, HI PHYSI KACI EXAM GENERAL: well appearing in NAD, speaking in clear sentences. SKIN: Clean, dry intact no rashes , lesions or nodules observed. RESP: CTAB, no wheezing or Rales. Cards: S1 S2 RRR, No m/r/g no JVD, No Pedal Edema, Distal Pulses palpable NEURO CN II-XII grossly intact, gait steady without shuffle MENTAL A&Ox3 Appropriate, Pleasant, Cooperative Future Clinic Visits 12/10/2023 10:00 NHM/ENDOCRINE 02/10/2024 08:00 CWM/NO/OPTOMETRY/MERHAR ASSESSMENT AND PLAN: #Nephrolithiasis -just had lithotripsy -Follows with Dr Simmons -Has since stopped Tamsulosin as he does not need currently #Type II DM -follows with Dr Mack -Cont. Atorva for risk reduction -Cont. metformin 500mg BID -Check A1C -Counseled on healthy diet and exercise #FAMILIA -In remission, Encouraged and praised continued Sobriety #PTSD -stable no MH needed at this time -Counseled on crisis and walk in clinic and or referrals PRN #ANASTASIA -cannot tolerate a CPAP -Counseled on risk of untreated ANASTASIA he declines wanting sleep med consult today #HTN -BP controlled -Continue Amlodipine 10mg daily #Rhinitis -Cont. Levocetirizine #Barretts esophagus -Cont. famotidine at night #SZ -Has been SZ free over last few years -Cont. following with neurology #Fatty liver -Stable, does not drink and no hepatoxic medications -monitor LFTs Return to clinic to see me in 6 months, RTC sooner if needed. Clinical Reminders Avg Risk Colorectal Cancer Screen: AVERAGE RISK colorectal cancer screening is due based on information available to this clinical reminder Screening is due now. Colonoscopy consult has been ordered. See orders tab for details. Screen for Abd Aortic Aneurysm: Order Ultrasound /gaetano/ CIERRA GREGORY Nurse Practitioner Signed: 11/27/2023 11:56 03/28/2024 ADDENDUM STATUS: COMPLETED 4.1 cm AP stable ascending thoracic aortic found on LDCT, repeat in 1 year /gaetano/ CIERRA GREGORY Nurse Practitioner Signed: 03/28/2024 12:39 ELIZABET ROBINS [facility] [facility] [place] [facility] Nov 27, 2023 11:05 AM PREVENTIVE MEDICINE NURSING NOTE: LOCAL TITLE: CLINICAL REMINDERS/NURSING STANDARD TITLE: PREVENTIVE MEDICINE NURSING NOTE DATE OF NOTE: NOV 27, 2023@11:05 ENTRY DATE: NOV 27, 2023@11:05:19 AUTHOR: DEBBIE LANCASTER COSIGNER: URGENCY: STATUS: COMPLETED Homelessness/Food Insecurity Screen: In the past 2 months, have you been living in stable housing that you own, rent, or stay in as part of a household? Yes - Living in stable housing. Are you worried or concerned that in the next 2 months you may NOT have stable housing that you own, rent, or stay in as part of a household? No - Not worried about housing near future [facility] reports the following: Within the past 12 months, you worried whether your food would run out before you got money to buy more. Never true Within the past 12 months, the food you bought just didn't last and you didn't have money to get more. Never true Depression Screening: Perform PHQ-2 A PHQ-2 screen was performed. The score was 0 which is a negative screen for depression. Over the past two weeks, how often have you been bothered by the following problems? 1. Little interest or pleasure in doing things Not at all 2. Feeling down, depressed, or hopeless Not at all Tobacco Use Screening: The patient is a former tobacco user. The patient quit fifteen or more years ago. Alcohol Use Screen (AUDIT-C): Alcohol Screen: SCREEN FOR ALCOHOL (AUDIT-C) An alcohol screening test (AUDIT-C) was negative (score=0). 1. How often did you have a drink containing alcohol in the past year? Consider a drink to be a 12 ounce can or bottle of regular beer, 8 ounces of malt liquor, a 5 ounce glass of table wine, or a 1.5 ounce shot of liquor (like scotch, gin, or vodka). Never 2. How many drinks containing alcohol did you have on a typical day when you were drinking in the past year? Response not required due to responses to other questions. 3. How often did you have six or more drinks on one occasion in the past year? Response not required due to responses to other questions. RHS Screen: RHS Screen Session Format: Face to Face Environmental Check Upon inquiry, the individual reports that the environment is safe to proceed. Informed Consent to Screen and Document The individual consents to proceed with screening. The individual consents to documentation of responses. PRIMARY SCREEN: In the past 12 months, how often did a current or former intimate partner (e.g., boyfriend, girlfriend, , , sexual partner): 1. Scream or curse at you Never 2. Insult or talk down to you Never 3. Threaten you with harm Never 4. Physically hurt you Never 5. Force or pressure you to have sexual contact against your will, or when you were unable to say no Never ?? The HITS tool (items 1-4 above) is US copyright protected by Tho Smallwood MD, and the user has full rights to use it throughout the [facility] system. PRIMARY SCREEN RESULT: The Primary Screen is NEGATIVE. The individual answered never to all forms of IPV above (i.e., answered never to all 5 items) The individual accepts education and/or resources: No EDUCATION: The individual indicated readiness to learn. Education offered during this session as noted above. The individual indicated understanding by asking relevant questions and making appropriate comments. No barriers to learning were observed or identified. Eye Care At-Risk Screen : Patient identified to be at risk for the following eye condition(s): DIABETIC RETINOPATHY: Diabetes Diagnosis Information: Encounter Diagnosis: 06/08/2023@12:57 E11.42 (ICD-10-CM) Type 2 Diabetes Mellitus with Diabetic Polyneuropathy rank: PRIMARY Prov. Narr. - Type 2 Diabetes Mellitus with Diabetic Polyneuropa * MACULAR DEGENERATION: Macular Degeneration Risk Factors Information: Reminder Term: VA-AMD RISK FACTORS Encounter Diagnosis: 08/08/2022@15:45 Z68.36 (ICD-10-CM) Body mass index [BMI] 36.0-36.9, adult rank: SECONDARY Prov. Narr. - Body mass index [BMI] 36.0-36.9, adult GLAUCOMA: Glaucoma Risk Factors Information: Encounter Diagnosis: 12/10/2022@11:00 H40.013 (ICD-10-CM) Open Angle with Borderline Findings, low Risk, Bilateral rank: SECONDARY Prov. Narr. - Glaucoma Suspect,Low Risk,Bilateral Action: Patient has a future eye care appointment scheduled within the next 90 days. Date of Appointment: 02/10/24- [facility] Influenza Immunization: The patient was given the influenza VIS which lists the benefits and side effects of the vaccine and which reviews the risks of not receiving the flu vaccine. The VIS was reviewed with the patient and they were given an opportunity to ask questions. The patient was provided education on how to decrease the risk of influenza infection including social distancing and use of good hand hygiene. The patient denied any prior severe reaction to the flu vaccine or its components. The patient gave verbal consent to receive the vaccine. Influenza, High Dose, Quadrivalent (Fluzone - syringe) Administered: INFLUENZA, HIGH-DOSE, QUADRIVALENT Date Administered: Nov 27, 2023 11:00 Series: Complete Computer Artist: SANOFI PASTEUR Lot: [id number] Exp Date: Apr 17, 2024 NDC: [id number] Admin Route/Site: INTRAMUSCULAR/RIGHT DELTOID Dosage: 0.7mL Vaccine Information Statement(s): INFLUENZA(FLU) VACC(INACTIVATED OR RECOMBINANT)VIS May 24, 2021 (AMERICAN) Order By: Policy Administered By: Debbie Lancaster COVID-19 Immunization: Moderna Monovalent (Spikevax) Administered: COVID-19 (MODERNA), MRNA, LNP-S, PF, 50 MCG/0.5 ML (AGES 12+ YEARS) Date Administered: Nov 27, 2023 11:00 Series: Series 1 Computer Artist: [employer] Lot: [id number] Exp Date: March 17, 2024 NDC: [id number] Admin Route/Site: INTRAMUSCULAR/LEFT DELTOID Dosage: 0.5mL Vaccine Information Statement(s): COVID-19 MRNA VACCINE (12+ YRS) VACCINE VIS Aug 06, 2023 (AMERICAN) Order By: Policy Administered By: Debbie Lancaster Vaccine administered without complications. The patient was advised to remain in the facility for 15 minutes post vaccination. /gaetano/ ELZBIETA FRY, RN, CNL PRIMARY CARE TEAM NURSE Signed: 11/27/2023 11:22 [facility] [facility]
--- OUTSIDE RECORDS SUMMARY | 2024-11-01 07:57 | XMS_ITS | Encounter Summary ---
Author Name [facility] [place] [facility] [place] Address [address] [place] [address] Care Team Providers Care Financial Officer Name Role Phone ELIZABET ROBINS Primary Care [...] Paul's Name Patient's Relationship to Policy Paul [facility] CE ORGANIZ [facility] AC Apr 18, 2018 [id number] WILLIS,MAR JUDITH SPOUSE [place] OF [place] (BLU[place]ARD) [facility] CE ORGANIZ BRENDA [facility] Apr 18, 2018 [id number] WILLIS,MAR JUDITH SPOUSE BCBS [facility] CE [facility]IZ [facility] ACTIV E Apr 18, 2018 [id number] WILLIS,MAR JUDITH SPOUSE BCBS OF [facility] CE ORGANIZ [facility] Apr 18, 2018 [id number] WILLIS,MAR JUDITH PATIENT BCBS OF [facility] CE ORGANIZ BRENDA [facility] Apr 18, 2018 [id number] WILLIS,MAR JUDITH SPOUSE BC[place] OF [place] PREFERRED PROVIDER ORGANIZAT ION (PPO) BRENDA [facility] AC Apr 18, 2018 [id number] WILLIS,MAR JUDITH SPOUSE BCBS OF [facility] CE ORGANIZ BRENDA [facility] ACT Apr 18, 2018 [id number] WILLIS,MAR JUDITH SPOUSE BCBS OF [facility] CE ORGANIZ BRENDA [facility] AC Apr 18, 2018 [id number] [phone] WILLIS,MAR JUDITH SPOUSE [place] PRESCRIPT ION BRENDA [facility] AC Oct 19, 2022 [phone] WILLIS,LAVELLE AEL SPOUSE [place] PRESCRIPT [place]ON [place] Oct 19, 2022 [id number] [phone] WILLIS, SPOUSE [place] PRESCRIPT ION RX22M A Oct 19, 2022 RX22MA [id number] WILLIS,LAVELLE AEL PATIENT [place] PRESCRIPT ION RX22M B Oct 19, 2022 RX22MB [id number] WILLIS,LAVELLE AEL PATIENT [place] PRESCRIPT ION RX22M B Oct 19, 2022 RX22MB [id number] [phone] WILLIS,MAR JUDITH SPOUSE [place] PRESCRIPT ION RX Oct 19, 2022 [id number] WILLIS,MAR JUDITH SPOUSE [place] ([id number]) PRESCRIPT [place] Oct 19, 2022 [id number] WILLIS,MAR JUDITH SPOUSE [place] ([facility] CE ORGANIZ BRENDA [facility] AC Apr 18, 2018 [id number] WILLIS,EDILBERTO SOTELOZA SPOUSE [employer] PRESCRIPT ION [place] 2018 L4TA [id number] WILLIS,EDILBERTO WONG SPOUSE [employer] ([id number]) PRESCRIPT ION Apr 18, 2018 L4TA [id number] WILLIS,EDILBERTO WONG SPOUSE [employer] ([id number]) PRESCRIPT ION L4TA* Apr 18, 2020 L4TA [id number] WILLISEDILBERTOA SPOUSE [employer] ([id number]) PRESCRIPT ION L4TA* Apr 18, 2018 L4TA [id number] WILLIS,EDILBERTO BROOKS SPOUSE [employer] ([id number]) PRESCRIPT ION L4TA Apr 18, 2018 L4TA [id number] WILLIS,EDILBERTO WONG SPOUSE [employer] ([id number]) PRESCRIPT ION Apr 18, 2018 L4TA [id number] WILLISEDILBERTO SPOUSE [employer] ([id number]) PRESCRIPT ION Apr 18, 2018 L4TA [id number] WILLISEDILBERTO SPOUSE [employer]-MINOR [place]OG[place] PRESCRIPT [place] Apr 18, 2020 L4TA [id number] WILLISEDILBERTO SPOUSE [facility] CE ORGANIZAT ION W/OUT OF NETWORK BENEFITS NMTRISTEN [facility] ACT Apr 18, 2018 [id number] EDILBERTO PEDRO SPOUSE [place] BCBS [facility] (BLUECAR) [facility] CE ORGANIZAT ION [facility]EN [facility] Apr 18, 2018 [id number] EDILBERTO PEDRO SPOUSE MEDICARE (WNR) MEDICARE (M) PART A Mar 19, 1990 PART A [id number] WILLISLAVELLE AEL PATIENT MEDICARE (WNR) MEDICARE (M) PART A Mar 19, 1990 PART A [id number] [phone] WILLIS,LAVELLE AEL PATIENT MEDICARE (WNR) MEDICARE (M) PART A Mar 19, 1990 PART A [id number] WILLIS,LAVELLE AEL PATIENT MEDICARE (WNR) MEDICARE (M) PART A Mar 19, 1990 PART A [id number] WILLIS,LAVELLE AEL PATIENT MEDICARE (WNR) MEDICARE (M) PART A Mar 19, 1990 PART A [id number] [phone] WILLIS,LAVELLE AEL PATIENT MEDICARE (WNR) MEDICARE (M) PART A Mar 19, 1990 PART A [id number] [phone] WILLIS,LAVELLE AEL PATIENT MEDICARE (WNR) MEDICARE (M) PART A Mar 19, 1990 PART A [id number] [phone] WILLIS,LAVELLE AEL PATIENT MEDICARE (WNR) MEDICARE (M) PART A Mar 19, 1990 PART A [id number] WILLIS,LAVELLE AEL PATIENT MEDICARE (WNR) MEDICARE (M) PART A Mar 19, 1990 PART A [id number] WILLISLAVELLE AEL PATIENT MEDICARE (WNR) MEDICARE (M) PART A Mar 19, 1990 PART A [id number] WILLIS,LAVELLE AEL PATIENT MEDICARE (WNR) MEDICARE (M) PART A Mar 19, 1990 PART A [id number] [phone] WILLIS,LAVELLE AEL PATIENT Selected Encounter This section includes the information on record at [place] for the Encounter. Date/Time Encounter Type Encounter Description Reason Pro vider Source Dec 10, 2023 09:36 AM Outpatient Encounter OPTOMETRY IHE Encounter Template Text not used by [...] Appointment Type Appointme nt Facility Name Dec 14, 2023 08:00 AM AM[facility]AT[facility] [place] [facility] Jan 13, 2024 03:00 PM AMBULATORY - MEDICINE [facility] [place] [facility] Feb 04, 2024 08:00 AM AMBULATORY - MEDICINE [facility] [place] [facility] February 17, 2024 12:00 PM AMBULATORY - MEDICINE [facility] [place] [facility] Mar 28, 2024 10:00 AM AMBULATORY - NONE [facility] [place] [facility] Mar 28, 2024 10:30 AM AMBULATORY - MEDICINE [facility] [place] [facility] Mar 28, 2024 01:00 PM AMBULATORY - MEDICINE [facility] [place] [facility] Apr 06, 2024 01:30 PM AMBULATORY - MEDICINE [facility] [place] [facility] May 30, 2024 08:30 AM AMBULATORY - MEDICINE [facility] [place] [facility] May 30, 2024 09:30 AM AMBULATORY - MEDICINE [facility] [place] [facility] Jun 01, 2024 10:00 AM AMBULATORY - MEDICINE [facility] [place] [facility] Jun 01, 2024 11:30 AM AMBULATORY - MEDICINE [facility] [place] [facility] Lab Results: +/- 30 days of the [...] 2023 08:43 AM [place] [facility] [place] [facility] LIPID PANEL FASTING Specimen Type: SERUM No comment entered. Ordering Provider: KIMBER MACK Report Released Date/Time: Jun 04, 2023 10:09 AM Reporting Lab: [place] [facility] [place] [address] [address] Performing Lab: [place] [facility] [address] [facility] [address] CHOLESTEROL 136 mg/dL TRIGLYCERIDE 119 mg/dL 0-150 LDL calculated 69 mg/dL 0-129 CHOL/HDL 3.2 HDL CHOLESTEROL 43 mg/dL 40-60 Nov 27, 2023 08:43 AM [facility] HEMOGLOBIN A1C PANEL Specimen Type: [...] 04, 2023 10:09 AM Reporting Lab: [address] [address] Performing Lab: [address] [address] HEMOGLOBIN A1C 6.1 H 4.0-5.6 Nov 27, 2023 08:43 AM [facility] MICROALBUMIN CREATININE RATIO PANEL Specimen Type: URINE No comment entered. Ordering Provider: KIMBER MACK Report Released Date/Time: Jun 04, 2023 10:09 AM Reporting Lab: [address] [address] Performing Lab: [address] [address] MICROALBUMIN/C REATININE RATIO 5.7 mg/g 0-29.9 MICROALBUMIN,Q UANTITATIVE 0.6 mg/dL RR UNAVAIL CREATININE URINE 104.48 mg/dL Nov 27, 2023 08:43 AM [facility] BASIC METABOLIC PANEL (fasting) Specimen Type: SERUM No comment entered. Ordering Provider: KIMBER MACK Report Released Date/Time: Jun 04, 2023 10:09 AM Reporting Lab: [address] [address] Performing Lab: [address] [place] [address] UREA NITROGEN 12 mg/dL 7-25 GLUCOSE 133 [...] Pain Height Weight Body Mass Index Source Dec 10, 2023 09:52 AM 97.2 82 115/76 16 97 3 65 211 35 [place] [facility] [facility] Social History: Smoking Status (Most current) [...] took place. Date/Time Current Smoking Status Comment [facility] Nov 27, 2023 11:00 AM [facility]ACCO [facility] Tobacco Use History This section includes a history of the smoking, or tobacco-related health factors, that were collected on or before the date of the Encounter. The data comes from the [place] facility where the Encounter took place. Date/Time Smoking Status/Tobac co Use Comment Facility Nov 27, 2023 11:00 AM VA-TOBACCO QUIT 15 YRS OR MORE [place] [facility] [place] [facility] Dec 02, 2022 08:00 AM VA-TOBACCO FORMER USER [place] [facility] [place] [facility] Dec 02, 2022 08:00 AM VA-TOBACCO QUIT 15 YRS OR MORE [place] [facility] [place] [facility] Nov 05, 2021 10:30 AM VA-TOBACCO FORMER USER [place] [facility] [place] [facility] Nov 05, 2021 10:30 AM VA-TOBACCO QUIT 1 TO < 5 YRS [place] [facility] [place] [facility] Sep 14, 2020 02:00 PM VA-TOBACCO FORMER USER [facility] Sep 14, 2020 02:00 PM VA-TOBACCO QUIT 5 TO < 15 YRS [facility] Jan 22, 2018 03:40 PM QUIT TOBACCO USE > 7 YEARS AGO [facility] Jun 04, 2016 02:01 PM CURRENT SMOKER been smoking pass 20 yrs [facility] Jun 04, 2016 02:01 PM V1-PT DECLINES REF TO TOBACCO CESS PRGM [facility] Jun 04, 2016 02:01 PM V1-PT THINKING ABOUT QUIT TOBACCO USE [facility] Jul 18, 2014 03:31 PM V1-PT DECLINES REF TO TOBACCO CESS PRGM [facility] Jul 18, 2014 03:31 PM V1-PT DECLINES TOBACCO CESSATION MEDS [facility] Jul 18, 2014 03:31 PM V1-PT NOT INTERESTED IN QUIT TOBACCO USE [facility] Jan 09, 2014 10:43 AM CURRENT SMOKER pt smokes 1 pk of cigarettes per day. [facility] Jan 09, 2014 10:43 AM V1-PT THINKING ABOUT QUIT TOBACCO USE [facility] Aug 28, 2003 10:47 AM CURRENT SMOKER one pack q 6 days - he has cut down from 3 PPD. He is in the process of quitting [facility] Radiology Reports: +/- 30 days [...] the Encounter. The data comes from all [facility] facilities. Date/Time Radiology Report Provider Source Dec 10, 2023 10:31 AM ULTRASOUND AAA SCREENING: CHAYA PEDRO [id number] -[phone] M Exm Date: DEC 10, 2023@10:31 Req Phys: ELIZABET ROBINS Pat Loc: CWM/NO/PACT 5 (Req'g Loc) Img Loc: ULTRASOUND Service: Unknown (Case [id number] COMPLETE) ULTRASOUND AAA SCREENING (US Detailed) CPT:48119 Reason for Study: US Abdomen, AAA screen Clinical History: Report Status: Verified Date Reported: DEC 10, 2023 Date Verified: DEC 10, 2023 Shoe Lacer E-Sig:/ES/RAYMOND LEAL JR Report: Study: AAA screening [...] Primary Interpreting Staff: RAYMOND LEAL JR, Radiologist (Shoe Lacer) /RAYMOND SHELTON JR [facility] Encounter Notes: All associated encounter notes This section contains the clinical notes associated to the Encounter. Date/Time Encounter Note(s) Provider Source Dec 10, 2023 09:36 AM ADMINISTRATIVE NOTE: LOCAL TITLE: ADMINISTRATIVE NOTE STANDARD TITLE: ADMINISTRATIVE NOTE DATE OF NOTE: DEC 10, 2023@09:36 ENTRY DATE: DEC 10, 2023@09:36:33 AUTHOR: NINA GUARDADO COSIGNER: URGENCY: STATUS: COMPLETED [place] requesting a refill on the following prescriptions: Dispense Drugs (units/dose): KETOTIFEN 0.025% OPH SOLN () Last Filled: 03/30/23 Refills Remainin Filled: 12/02/22 (Window) released 12/02/22 03/30/23 (Window) released 03/30/23 Prescription#: [id number] Pharmacist: YONATAN COVINGTON DOES NOT WANT OINTMENT - WANTS DROPS Dispense Drugs (units/dose): PEG 400 0.4%/PROP GLYCOL 0.3% OPH SOLN () Last Filled: 09/11/23 Refills Remainin Filled: 11/24/22 (Mail) released 12/02/22 01/26/23 (Mail) released 01/20/23 03/30/23 (Window) released 03/30/23 05/28/23 (Mail) released 06/03/23 09/11/23 (Mail) released 09/16/23 Prescription#: [id number] Pharmacist: GHANSHYAM MALONEY PLEASE MAIL TO [facility] ADDRESS, VERIFIED. /es/ NINA GUARDADO LEAD HEEL STAINER Signed: 12/10/2023 09:39 Receipt Acknowledged By: 12/10/2023 11:05 /es/ ROXANA HILLMAN OPTOMETRY TECH 12/10/2023 11:48 /es/ DEREJE DANGELO [facility] TECHINICIAN 12/10/2023 09:54 /es/ Mariann Senior Optometry Health Slot Floor Person 12/10/2023 15:15 /es/ LAUREN MALIN SUPERVISORY HEEL STAINER 12/10/2023 09:52 /es/ STACIA CAMPO OD Child Adolescent Psychiatrist NINA GUARDADO [place] [facility]
--- OUTSIDE RECORDS SUMMARY | 2024-11-01 07:57 | XMS_ITS ---
Author Name [facility] [place] [facility] [place] Address [address] [place] [address] Care Team Providers Care Orchid Worker Name Role Phone ELIZABET ROBINS Primary Care [...] Paul's Name Patient's Relationship to Policy Paul FORMERLY [facility] CE ORGANIZ [facility] Apr 18, 2018 [id number] WILLIS,MAR JUDITH SPOUSE ANTHE[place] OF [place] (BLU[place]ARD) [facility] CE ORGANIZ NVTRISTEN [facility] Apr 18, 2018 [id number] WILLIS,MAR JUDITH SPOUSE BCBS [facility] CE ORGANIZ [facility] SHARE ACTIV E Apr 18, 2018 [id number] [phone] WILLIS,MAR JUDITH SPOUSE BCBS OF [facility] ORGANIZ [facility] Apr 18, 2018 [id number] WILLIS,MAR JUDITH PATIENT BCBS OF [facility] CE ORGANIZ [facility] Apr 18, 2018 [id number] WILLIS,MAR JUDITH SPOUSE [place] OF [place] PREFERRED PROVIDER ORGANIZAT ION (PPO) [facility] AC Apr 18, 2018 [id number] WILLIS,MAR UJDITH SPOUSE BCBS OF [facility] CE ORGANIZ [facility] ACT Apr 18, 2018 [id number] WILLIS,MAR JUDITH SPOUSE BCBS OF [facility] CE ORGANIZ [facility] AC Apr 18, 2018 [id number] [phone] WILLIS,MAR JUDITH SPOUSE [place] PRESCRIPT ION [facility] AC Oct 19, 2022 [id number] [phone] WILLIS,LAVELLE AEL SPOUSE [place] PRESCRIPT ION RX22M A Oct 19, 2022 RX22MA [id number] WILLIS,LAVELLE AEL PATIENT [place] PRESCRIPT ION RX22M B Oct 19, 2022 RX22MB [id number] WILLIS,LAVELLE AEL PATIENT [place] PRESCRIPT ION BCBS OF [place] Oct 19, 2022 RX22MA [id number] WILLIS, SPOUSE [place] PRESCRIPT ION RX22M B Oct 19, 2022 RX22MB [phone] [phone] WILLIS,MAR JUDITH SPOUSE [place] PRESCRIPT ION RX Oct 19, 2022 RX22MB [id number] [id number] [phone] WILLIS,MAR JUDITH SPOUSE [place] ([id number]) PRESCRIPT ION [place] Oct 19, 2022 [id number] [phone] WILLIS,MAR JUDITH SPOUSE [place] BC[place] ([facility] CE ORGANIZ [facility] AC Apr 18, 2018 [id number] [phone] WILLIS,EDILBERTO SOTELOZA SPOUSE [employer] [place] PRESCRIPT ION [place] 2018 L4TA [id number] WILLIS,EDILBERTO SOTELOZA SPOUSE [employer] ([id number]) PRESCRIPT ION Apr 18, 2018 L4TA [id number] WILLIS,EDILBERTO SOTELOZA SPOUSE [employer] ([id number]) PRESCRIPT ION L4TA* Apr 18, 2020 L4TA [id number] WILLIS,EDILBERTO PALAFOXA SPOUSE [employer] ([id number]) PRESCRIPT ION L4TA* Apr 18, 2018 L4TA [id number] WILLIS,EDILBERTO PALAFOXA SPOUSE [employer] ([id number]) PRESCRIPT ION L4TA Apr 18, 2018 L4TA [id number] WILLIS,EDILBERTO SOTELOZA SPOUSE [employer] ([id number]) PRESCRIPT ION Apr 18, 2018 L4TA [id number] WILLISEDILBERTOZA SPOUSE [employer] ([id number]) PRESCRIPT ION Apr 18, 2018 L4TA [id number] WILLIS,EDILBERTO WONG SPOUSE [employer]-MINOR BROGATION PRESCRIPT ION [place]BS OF [place] Apr 18, 2020 L4TA [id number] WILLIS,EDILBERTO WONG SPOUSE [place] [facility] ([facility]GAN[facility]ON W/OUT OF NETWORK BENEFITS NVTRISTEN [facility] ACT Apr 18, 2018 [id number] WILLISEDILBERTO SPOUSE [place] BCBS [facility] (BLUECAR) [facility] CE ORGANIZAT ION [facility]TRISTEN [facility] AC Apr 18, 2018 [id number] [phone] WILLISEDILBERTO SPOUSE MEDICARE (WNR) MEDICARE (M) PART A Mar 19, 1990 PART A [id number] WILLIS,LAVELLE AEL PATIENT MEDICARE (WNR) MEDICARE (M) PART A Mar 19, 1990 PART A [id number] WILLIS,LAVELLE AEL PATIENT MEDICARE (WNR) MEDICARE (M) PART A Mar 19, 1990 PART A [id number] [phone] WILLIS,LAVELLE AEL PATIENT MEDICARE (WNR) MEDICARE (M) PART A Mar 19, 1990 PART A [id number] WILLIS,LAVELLE AEL PATIENT MEDICARE (WNR) MEDICARE (M) PART A Mar 19, 1990 PART A [id number] WILLIS,LAVELLE AEL PATIENT MEDICARE (WNR) MEDICARE () PART A Mar 19, 1990 PART A [id number] [phone] [id number] WILLIS,LAVELLE AEL PATIENT MEDICARE (WNR) MEDICARE () PART A Mar 19, 1990 PART A [id number] [id number] [id number] WILLIS,LAVELLE AEL PATIENT MEDICARE (WNR) MEDICARE () PART A Mar 19, 1990 PART A [id number] [phone] WILLIS,LAVELLE AEL PATIENT MEDICARE (WNR) MEDICARE () PART A Mar 19, 1990 PART A [id number] WILLIS,LAVELLE AEL PATIENT MEDICARE (WNR) MEDICARE (M) PART A Mar 19, 1990 PART A [id number] [phone] WILLIS,LAVELLE AEL PATIENT MEDICARE (WNR) MEDICARE () PART A Mar 19, 1990 PART A [id number] [phone] WILLIS,LAVELLE AEL PATIENT Selected Encounter This section includes the information on record at [place] for the Encounter. Date/Time Encounter Type Encounter Description Reason Provider Source Dec 14, 2023 08:00 AM OFF/OP EST FEBRUARY X REQ PHY/QHP GENERAL INTERNAL MEDICINE ICD-10-CM E11.9 Type 2 diabetes mellitus without complications ABA GUERRERO [facility] Encounter Template Text not used by [place] Assessments - Encounter Diagnoses This section includes the primary and secondary diagnoses documented for the Encounter. Date/Time Primary/Secondary Diagnosis Diagnosis Name Provider Source Dec 26, 2023 08:47 AM PRIMARY Type 2 diabetes mellitus without complications ABA GUERRERO [place] [facility] [place] [facility] Plan of Treatment: Future Appointments (+ 6 months) and Future Tests (+/- 45 days) The Plan of Treatment section includes future care activities for the patient from all [place] treatmentfacilities. This section includes future appointments and future orders which are active, pending or scheduled. Future Appointments This section includes appointments that were scheduled to occur 6 months from the date of the Encounter, up to a maximum of 20 appointments. The data comes from all [place] treatment facilities. Appointment Date/Time Appointment Type Appointme nt Facility Name Jan 13, 2024 03:00 PM AMBULATORY - MEDICINE [place] [facility] [place] [facility] Feb 04, 2024 08:00 AM AMBULATORY - MEDICINE [place] [facility] [place] [facility] February 17, 2024 12:00 PM AMBULATORY - MEDICINE [place] [facility] [place] [facility] Mar 28, 2024 10:00 AM AMBULATORY - NONE [place] [facility] [place] [facility] Mar 28, 2024 10:30 AM AMBULATORY - MEDICINE [facility] [place] [facility] Mar 28, 2024 01:00 PM AMBULATORY - MEDICINE [place] [facility] [place] [facility] Apr 06, 2024 01:30 PM AMBULATORY - MEDICINE [place] [facility] [place] [facility] May 30, 2024 08:30 AM AMBULATORY - MEDICINE [place] [facility] [place] [facility] May 30, 2024 09:30 AM AMBULATORY - MEDICINE [place] [facility] [place] [facility] Jun 01, 2024 10:00 AM AMBULATORY - MEDICINE [place] [facility] [place] [facility] Jun 01, 2024 11:30 AM AMBULATORY - MEDICINE [place] [facility] [place] [facility] Lab Results: +/- 30 days of the encounter This section includes the Chemistry and Hematology Lab Results on record with [place] for the patient. Radiology Reports and Pathology Reports are provided separately, in subsequent sections. Lab Results This section contains the Chemistry/Hematology Results that were resulted 30 days before or 30 daysafter the date of the Encounter. Date/Time Source Result Type Result - Unit Interpretation Reference Range Comment Nov 27, 2023 08:43 AM [facility] Specimen Type: SERUM No comment entered. Ordering Provider: KIMBER MACK Report Released Date/Time: Jun 04, 2023 10:09 AM Reporting Lab: [facility] [address] [address] Performing Lab: [facility] [address] [address] CHOLESTEROL 136 mg/dL TRIGLYCERIDE 119 mg/dL 0-150 LDL calculated 69 mg/dL 0-129 CHOL/HDL 3.2 HDL CHOLESTEROL 43 mg/dL 40-60 Nov 27, 2023 08:43 AM [facility] HEMOGLOBIN A1C PANEL Specimen Type: BLOOD [...] Jun 04, 2023 10:09 AM Reporting Lab: [facility] [address] [address] Performing Lab: [facility] [address] [address] HEMOGLOBIN A1C 6.1 H 4.0-5.6 Nov 27, 2023 08:43 AM [facility] MICROALBUMIN CREATININE RATIO PANEL Specimen Type: URINE No comment entered. Ordering Provider: KIMBER MACK Report Released Date/Time: Jun 04, 2023 10:09 AM Reporting Lab: [facility] [address] [address] Performing Lab: [facility] [address] [address] MICROALBUMIN/C REATININE RATIO 5.7 mg/g 0-29.9 MICROALBUMIN,Q UANTITATIVE 0.6 mg/dL RR UNAVAIL CREATININE URINE 104.48 mg/dL Nov 27, 2023 08:43 AM [facility] BASIC METABOLIC PANEL (fasting) Specimen Type: SERUM No comment entered. Ordering Provider: KIMBER MACK Report Released Date/Time: Jun 04, 2023 10:09 AM Reporting Lab: [facility] [address] [address] Performing Lab: [facility] [address] [address] UREA NITROGEN 12 mg/dL 7-25 GLUCOSE 133 [...] and tobacco- related health factors from the [place] facility where the Encounter took place. Current Smoking Status This section includes the most current smoking, or tobacco-related health factor, from the [place] facility where the Encounter took place. Date/Time Current Smoking Status Comment [facility] Nov 27, 2023 11:00 AM VA-TOBACCO FORMER USER [facility] Tobacco Use History This section includes a history of the smoking, or tobacco-related health factors, that were collected on or before the date of the Encounter. The data comes from the [place] facility where the Encounter took place. Date/Time Smoking Status/Tobac co Use Comment Facility Nov 27, 2023 11:00 AM VA-TOBACCO QUIT 15 YRS OR MORE [facility] [place] [facility] Dec 02, 2022 08:00 AM VA-TOBACCO FORMER USER [facility] [place] [facility] Dec 02, 2022 08:00 AM VA-TOBACCO QUIT 15 YRS OR MORE [facility] [place] [facility] Nov 05, 2021 10:30 AM VA-TOBACCO FORMER USER [facility] [place] [facility] Nov 05, 2021 10:30 AM VA-TOBACCO QUIT 1 TO < 5 YRS [facility] [place] [facility] Sep 14, 2020 02:00 PM VA-TOBACCO FORMER USER [facility] Sep 14, 2020 02:00 PM VA-TOBACCO QUIT 5 TO < 15 YRS [facility] Jan 22, 2018 03:40 PM QUIT TOBACCO USE > 7 YEARS AGO [facility] Jun 04, 2016 02:01 PM CURRENT SMOKER been smoking pass 20 yrs [facility] Jun 04, 2016 02:01 PM V1-PT DECLINES REF TO TOBACCO CESS PRGM [facility] Jun 04, 2016 02:01 PM V1-PT THINKING ABOUT QUIT TOBACCO USE [facility] Jul 18, 2014 03:31 PM V1-PT DECLINES REF TO TOBACCO CESS PRGM [facility] Jul 18, 2014 03:31 PM V1-PT DECLINES TOBACCO CESSATION MEDS [facility] Jul 18, 2014 03:31 PM V1-PT NOT INTERESTED IN QUIT TOBACCO USE [facility] Jan 09, 2014 10:43 AM CURRENT SMOKER pt smokes 1 pk of cigarettes per day. [facility] Jan 09, 2014 10:43 AM V1-PT THINKING ABOUT QUIT TOBACCO USE [facility] Aug 28, 2003 10:47 AM CURRENT SMOKER one pack q 6 days - he has cut down from 3 PPD. He is in the process of quitting [facility] Radiology Reports: +/- 30 days of [...] the Encounter. The data comes from all [facility] facilities. Date/Time Radiology Report Provider Source Dec 10, 2023 10:31 AM ULTRASOUND AAA SCREENING: CHAYA PEDRO [id number] -1955 M Exm Date: DEC 10, 2023@10:31 Req Phys: ELIZABET ROBINS Pat Loc: CWM/NO/PACT 5 (Req'g Loc) Img Loc: ULTRASOUND Service: Unknown (Case [id number] COMPLETE) ULTRASOUND AAA SCREENING (US Detailed) CPT:39437 Reason for Study: US Abdomen, AAA screen Clinical History: Report Status: Verified Date Reported: DEC 10, 2023 Date Verified: DEC 10, 2023 Engineer Technical Staff E-Sig:/ES/RAYMOND LEAL JR Report: Study: AAA screening [...] Primary Interpreting Staff: RAYMOND LEAL JR, Radiologist (Engineer Technical Staff) /RAYMOND SHELTON JR [facility] Encounter Notes: All associated encounter notes This section contains the clinical notes associated to the Encounter. Date/Time Encounter Note(s) Provider Source Dec 14, 2023 08:22 AM DIABETOLOGY NOTE: LOCAL TITLE: GLUCOSE PATIENT METER DATA STANDARD TITLE: DIABETOLOGY NOTE DATE OF NOTE: DEC 14, 2023@08:22 ENTRY DATE: DEC 14, 2023@08:22:50 AUTHOR: ABA GUERRERO COSIGNER: URGENCY: STATUS: COMPLETED Name: Chaya Pedro : 1955 ID: Information from [employer] [facility] Diabetes [employer] [facility] on 12/14/2023 Patient Name: Chaya Pedro Date Range: 11/25/2023 - 12/08/2023 bG values are displayed in mg/dL # of tests 1 Average 122 SD 0 Highest 122 Lowest 122 Avg tests/day 0.1 # HI 0 # LO 0 <70 0.0% 70-220 100.0% >220 0.0% Hypos(<69) 0 Date Range: 11/25/2023 - 12/08/2023 bG values are displayed in mg/dL 00:00- :- 08:00- 11:- :- :- :- :- 08:00 11:00 12:30 17:00 18:30 21:30 00:00 Jael 11/26/2023 122 Date Range: 11/25/2023 - 12/08/2023 bG values are displayed in mg/dL 00:00- - :- :- - :- :- :- : 08:00 11:00 12:30 17:00 18:30 21:30 00:00 # of tests 0 1 0 0 0 0 0 0 Average 0 122 0 0 0 0 0 0 SD 0 Hi/Lo 0 0 0 0 0 0 0 0 Date Range: 11/25/2023 - 12/08/2023 bG values are displayed in mg/dL 11/26/2023 7:07 AM 122 End of information from [place] [id number] Diabetes Management System /gaetano/ ABA GUERRERO RN Signed: 12/14/2023 08:24 Receipt Acknowledged By: 12/14/2023 08:32 /gaetano/ KIMBER MACK MD STAFF PHYSICIAN ABA GUERRERO [facility]
--- OUTSIDE RECORDS SUMMARY | 2024-11-01 07:57 | XMS_ITS ---
Author Name [facility] [place] [facility] [place] Address [address] [place] [address] Care Team Providers Care Computer Forwarding System Markup Clerk Name Role Phone ELIZABET ROBINS Primary Care [...] Paul's Name Patient's Relationship to Policy Paul [facility] CE ORGANIZ [facility] AC Apr 18, 2018 [id number] WILLIS,MAR JUDITH SPOUSE AN[place] ([place]ARD) [facility] CE ORGANIZ [facility] Apr 18, 2018 [id number] WILLIS,MAR JUDITH SPOUSE BCBS [facility] CE ORGANIZ [facility] SHARE ACTIV E Apr 18, 2018 [id number] WILLIS,MAR JUDITH SPOUSE BCBS OF [facility] CE ORGANIZ [facility] Apr 18, 2018 [id number] WILLIS,MAR JUDITH PATIENT BCBS OF [facility] CE ORGANIZ [facility]DA [facility] Apr 18, 2018 [id number] WILLIS,MAR JUDITH SPOUSE BC[place] OF [place] PREFERRED PROVIDER ORGANIZAT ION (PPO) [facility]DA [facility] AC Apr 18, 2018 [id number] WILLIS,MAR JUDITH SPOUSE BCBS OF [facility] CE ORGANIZ BRENDA [facility] ACT Apr 18, 2018 [id number] WILLIS,MAR JUDITH SPOUSE BCBS OF [facility] CE ORGANIZ BRENDA [facility] AC Apr 18, 2018 [id number] [phone] WILLIS,MAR JUDITH SPOUSE [place] PRESCRIPT ION RX22M B Oct 19, 2022 [id number] WILLIS,MAR JUDITH SPOUSE [place] PRESCRIPT ION RX22M A Oct 19, 2022 [id number] [id number] WILLIS,LAVELLE AEL PATIENT [place] PRESCRIPT ION RX22M B Oct 19, 2022 RX22MB [id number] WILLIS,LAVELLE AEL PATIENT [place] PRESCRIPT ION [facility]DA [facility] AC Oct 19, 2022 RX22MB [id number] [phone] WILLIS,LAVELLE AEL SPOUSE [place] PRESCRIPT ION RX Oct 19, 2022 [id number] WILLIS,MAR JUDITH SPOUSE [place] PRESCRIPT ION [place] OF [place] Oct 19, 2022 [id number] WILLIS, SPOUSE [place] ([id number]) PRESCRIPT I[place] Oct 19, 2022 [id number] WILLIS,MAR JUDITH SPOUSE [place] ([facility] CE ORGANIZ BRENDA MCCABE [facility] AC Apr 18, 2018 [id number] WILLIS,EDILBERTO SOTELOZA SPOUSE [employer] [place] PRESCRIPT I[place] 2018 L4TA [id number] [phone] WILLIS,EDILBERTO SOTELOZA SPOUSE [employer] ([id number]) PRESCRIPT ION Apr 18, 2018 L4TA [id number] WILLIS,EDILBERTO SOTELOZA SPOUSE [employer] ([id number]) PRESCRIPT ION L4TA* Apr 18, 2020 L4TA [id number] WILLISEDILBERTOA SPOUSE [employer] ([id number]) PRESCRIPT ION L4TA Apr 18, 2018 L4TA [id number] WILLIS,EDILBERTO WONG SPOUSE [employer] ([id number]) PRESCRIPT ION L4TA* Apr 18, 2018 L4TA [id number] WILLIS,EDILBERTO PALAFOXA SPOUSE [employer] ([id number]) PRESCRIPT ION Apr 18, 2018 L4TA [id number] WILLISEDILBERTO SPOUSE [employer] ([id number]) PRESCRIPT ION Apr 18, 2018 L4TA [id number] WILLISEDILBERTO SPOUSE [employer]-MINOR BROGATION PRESCRIPT ION [place] Apr 18, 2020 L4TA [id number] WILLIS,EDILBERTO WONG SPOUSE [place] [facility] CE ORGANIZAT ION W/OUT OF NETWORK BENEFITS IATRISTEN [facility] RSD ACT Apr 18, 2018 [id number] [phone] WILLISEDILBERTO SPOUSE [place] BCBS [facility] (BLUECARD) [facility] CE ORGANIZAT ION [facility]EN [facility] RSD AC Apr 18, 2018 [id number] [phone] EDILBERTO PEDRO SPOUSE MEDICARE (WNR) MEDICARE (M) PART A Mar 19, 1990 PART A [id number] [phone] [id number] WILLISLAVELLE AEL PATIENT MEDICARE (WNR) MEDICARE (M) PART A Mar 19, 1990 PART A [id number] [phone] WILLIS,LAVELLE AEL PATIENT MEDICARE (WNR) MEDICARE (M) PART A Mar 19, 1990 PART A [id number] WILLIS,LAVELLE AEL PATIENT MEDICARE (WNR) MEDICARE (M) PART A Mar 19, 1990 PART A [id number] WILLIS,LAVELLE AEL PATIENT MEDICARE (WNR) MEDICARE (M) PART A Mar 19, 1990 PART A [id number] WILLIS,LAVELLE AEL PATIENT MEDICARE (WNR) MEDICARE (M) PART A Mar 19, 1990 PART A [id number] [phone] [id number] WILLIS,LAVELLE AEL PATIENT MEDICARE (WNR) MEDICARE (M) PART A Mar 19, 1990 PART A [id number] [phone] [id number] WILLIS,LAVELLE AEL PATIENT MEDICARE (WNR) MEDICARE (M) PART A Mar 19, 1990 PART A [id number] WILLIS,LAVELLE AEL PATIENT MEDICARE (WNR) MEDICARE (M) PART A Mar 19, 1990 PART A [id number] [phone] WILLIS,LAVELLE AEL PATIENT MEDICARE (WNR) MEDICARE (M) PART A Mar 19, 1990 PART A [id number] WILLIS,LAVELLE AEL PATIENT MEDICARE (WNR) MEDICARE (M) PART A Mar 19, 1990 PART A [id number] WILLISLAVELLE AEL PATIENT Selected Encounter This section includes the information on record at [place] for the Encounter. Date/Time Encounter Type Encounter Description Reason Pro vider Source Nov 24, 2023 12:00 PM Outpatient Encounter COMMUNITY CARE CONSULT IHE Encounter Template Text not used by [place] Plan of Treatment: Future Appointments (+ 6 [...] 20 appointments. The data comes from all [place] treatment facilities. Appointment Date/Time Appointment Type Appointme nt Facility Name Nov 27, 2023 11:00 AM AM[facility]ULATORY [facility]ICINE [facility] [place] [facility] Dec 10, 2023 10:00 AM AM[facility]ULATORY [facility]IC[facility] [place] [facility] Dec 10, 2023 10:30 AM AMBULATORY - NONE [facility] [place] [facility] Dec 14, 2023 08:00 AM [facility] [place] [facility] Jan 13, 2024 03:00 PM AMBULATORY - MEDICINE [facility] [place] [facility] Feb 04, 2024 08:00 AM AMBULATORY - MEDICINE [facility] [place] [facility] February 17, 2024 12:00 PM AMBULATORY - MEDICINE [facility] [place] [facility] Mar 28, 2024 10:00 AM AMBULATORY - NONE [facility] [place] [facility] Mar 28, 2024 10:30 AM AMBULATORY - MEDICINE [facility] [place] [facility] Mar 28, 2024 01:00 PM AMBULATORY [facility] MEDICINE [facility] [place] [facility] Apr 06, 2024 01:30 PM AM[place]ULATORY [place]ICINE [place] [facility] [place] [facility] Lab Results: +/- 30 days of the encounter This section includes the Chemistry and Hematology Lab Results on record with [place] for the patient. Radiology Reports and Pathology Reports are provided separately, in subsequent sections. Lab Results This section contains the Chemistry/Hematology Results that were resulted 30 days before or 30 daysafter the date of the Encounter. Date/Time Source Result Type Result - Unit Interpretation Reference Range Comment Nov 27, 2023 08:43 AM [place] [facility] [place] [facility] LIPID PANEL FASTING Specimen Type: SERUM No comment entered. Ordering Provider: KIMBER MACK Report Released Date/Time: Jun 04, 2023 10:09 AM Reporting Lab: [place] [facility] [place] [address] [address] Performing [facility]: [facility] [address] [address] CHOLESTEROL 136 mg/dL TRIGLYCERIDE 119 mg/dL 0-150 LDL calculated 69 mg/dL 0-129 CHOL/HDL 3.2 HDL CHOLESTEROL 43 mg/dL 40-60 Nov 27, 2023 08:43 AM [facility] HEMOGLOBIN A1C PANEL Specimen Type: BLOOD [...] Jun 04, 2023 10:09 AM Reporting Lab: [address] [address] Performing Lab: [address] [address] HEMOGLOBIN A1C 6.1 H 4.0-5.6 Nov 27, 2023 08:43 AM [facility] MICROALBUMIN CREATININE RATIO PANEL Specimen Type: URINE No comment entered. Ordering Provider: KIMBER MACK Report Released Date/Time: Jun 04, 2023 10:09 AM Reporting Lab: [facility] [address] [facility] [address] Performing Lab: [address] [address] MICROALBUMIN/C REATININE RATIO 5.7 mg/g 0-29.9 MICROALBUMIN,Q UANTITATIVE 0.6 mg/dL RR UNAVAIL CREATININE URINE 104.48 mg/dL Nov 27, 2023 08:43 AM [facility] BASIC METABOLIC PANEL (fasting) Specimen Type: SERUM No comment entered. Ordering Provider: KIMBER MACK Report Released Date/Time: Jun 04, 2023 10:09 AM Reporting Lab: [address] [address] Performing Lab: [address] [address] UREA NITROGEN 12 mg/dL 7-25 GLUCOSE 133 [...] and tobacco- related health factors from the [place] facility where the Encounter took place. Current Smoking Status This section includes the most current smoking, or tobacco-related health factor, from the [place] facility where the Encounter took place. Date/Time Current Smoking Status Comment [facility] Dec 02, 2022 08:00 AM VA-TOBACCO [facility] Tobacco Use History This section includes a history of the smoking, or tobacco-related health factors, that were collected on or before the date of the Encounter. The data comes from the [place] facility where the Encounter took place. Date/Time Smoking Status/Tobac co Use Comment [facility] Dec 02, 2022 08:00 AM VA-TOBACCO QUIT 15 YRS OR MORE [facility] Nov 05, 2021 10:30 AM [facility] Nov 05, 2021 10:30 AM VA-TOBACCO QUIT 1 TO < 5 YRS [facility] Sep 14, 2020 02:00 PM VA-TOBACCO FOR[facility] US[facility] Sep 14, 2020 02:00 PM VA-TOBACCO QUIT 5 TO < 15 YRS [facility] [place] [facility] Jan 22, 2018 03:40 PM QUIT TOBACCO USE > 7 YEARS AGO [facility] [place] [facility] Jun 04, 2016 02:01 PM CURRENT SMOKER been smoking pass 20 yrs [facility] Jun 04, 2016 02:01 PM V1-PT DECLINES REF TO TOBACCO CESS [facility] Jun 04, 2016 02:01 PM V1-PT THINKING ABOUT QUIT TOBACCO USE [facility] Jul 18, 2014 03:31 PM V1-PT DECLINES REF TO TOBACCO CESS PRGM [facility] Jul 18, 2014 03:31 PM V1-PT DECLINES TOBACCO CESSATION MEDS [facility] Jul 18, 2014 03:31 PM V1-PT NOT INTERESTED IN QUIT TOBACCO USE [facility] Jan 09, 2014 10:43 AM CURRENT SMOKER pt smokes 1 pk of cigarettes per day. [facility] Jan 09, 2014 10:43 AM V1-PT THINKING ABOUT QUIT TOBACCO USE [facility] Aug 28, 2003 10:47 AM CURRENT SMOKER one pack q 6 days - he has cut down from 3 PPD. He is in the process of quitting [facility] Radiology Reports: +/- 30 days of [...] the Encounter. The data comes from all [facility] facilities. Date/Time Radiology Report Provider Source Dec 10, 2023 10:31 AM ULTRASOUND AAA SCREENING: LAEVLLE PEDROAEL [id number] -[id number] M Exm Date: DEC 10, 2023@10:31 Req Phys: ELIZABET ROBINS Pat Loc: CWM/NO/PACT 5 (Req'g Loc) Img Loc: ULTRASOUND Service: Unknown (Case [id number] COMPLETE) ULTRASOUND AAA SCREENING (US Detailed) CPT:39073 Reason for Study: US Abdomen, AAA screen Clinical History: Report Status: Verified Date Reported: DEC 10, 2023 Date Verified: DEC 10, 2023 Gas Station Manager E-Sig:/ES/RAYMOND LEAL JR Report: Study: AAA screening [...] Primary Interpreting Staff: RAYMOND LEAL JR, Radiologist (Gas Station Manager) /RAYMOND SHELTON JR [facility] Encounter Notes: All associated encounter notes This section contains the clinical notes associated to the Encounter. Date/Time Encounter Note(s) Provider Source Nov 24, 2023 12:00 PM NONVA CONSULT: LOCAL TITLE: COMMUNITY CARE-CONSULT RESULT NOTE STANDARD TITLE: NONVA CONSULT DATE OF NOTE: NOV 24, 2023@12:00 ENTRY DATE: DEC 01, 2023@08:20:58 AUTHOR: KELLI BRADEN COSIGNER: URGENCY: STATUS: COMPLETED VistA Imaging - Scanned Document [facility] UROLOGY-OFFICE NOTES SCANNED DOCUMENT SIGNATURE NOT REQUIRED Electronically Filed: 12/01/2023 by: KELLI BRADEN COOK MESS KELLI BRADEN [facility]
--- OUTSIDE RECORDS SUMMARY | 2024-11-01 07:57 | XMS_ITS | Encounter Summary ---
Author Name [facility] [place] [facility] [place] [facility] [place] Address [address] [place] [address] Care Team Providers Care Kindergarten Paraprofessional Name Role Phone ELIZABET ROBINS Primary Care [...] Paul's Name Patient's Relationship to Policy Paul [facility] CE ORGANIZ LOCATED WITHIN [facility] AC Apr 18, 2018 [phone] WILLIS,MAR JUDITH SPOUSE AN[place]M [place] ([place] [facility] CE ORGANIZ TY[place]IA [facility] Apr 18, 2018 [id number] [phone] WILLIS,MAR JUDITH SPOUSE BCBS [facility] CE ORGANIZ [facility] ACTIV E Apr 18, 2018 [id number] WILLIS,MAR JUDITH SPOUSE BCBS OF [facility] CE ORGANIZ LOCATED [facility]IN [facility] Apr 18, 2018 [id number] WILLIS,MAR JUDITH PATIENT BCBS OF [facility] CE ORGANIZ BRENDA MCCABE [facility] Apr 18, 2018 [id number] WILLIS,MAR JUDITH SPOUSE [place] OF [place] PREFERRED PROVIDER ORGANIZAT ION (PPO) BRENDA MCCABE [facility] AC Apr 18, 2018 [id number] WILLIS,MAR JUDITH SPOUSE BCBS OF [facility] CE ORGANIZ BRENDA MCCABE [facility] ACT Apr 18, 2018 [id number] WILLIS,MAR JUDITH SPOUSE BCBS OF [facility] CE ORGANIZ BRENDA MCCABE [facility] AC Apr 18, 2018 [id number] [phone] WILLIS,MAR JUDITH SPOUSE [place] PRESCRIPT ION RX22M B Oct 19, 2022 RX22MB [id number] [phone] WILLIS,MAR JUDITH SPOUSE [place] PRESCRIPT ION RX22M A Oct 19, 2022 RX22MA [id number] WILLIS,LAVELLE AEL PATIENT [place] PRESCRIPT ION RX22M B Oct 19, 2022 RX22MB [id number] WILLIS,LAVELLE AEL PATIENT [place] PRESCRIPT ION BRENDA MCCABE [facility] AC Oct 19, 2022 RX22MB [phone] WILLIS,LAVELLE AEL SPOUSE [place] PRESCRIPT [place] Oct 19, 2022 RX22MA [id number] [phone] WILLIS, SPOUSE [place] PRESCRIPT ION RX Oct 19, 2022 RX22MB [id number] [phone] WILLIS,MAR JUDITH SPOUSE [place] ([id number]) PRESCRIPT [place] Oct 19, 2022 RX22MB [id number] [phone] WILLIS,MAR JUDITH SPOUSE [place] ([facility] CE ORGANIZ BRENDA MCCABE [facility] AC Apr 18, 2018 [id number] WILLIS,EDILBERTO SOTELOZA SPOUSE [employer] [place] PRESCRIPT [place] 2018 L4TA [id number] WILLIS,EDILBERTO WONG SPOUSE [employer] ([id number]) PRESCRIPT ION Apr 18, 2018 L4TA [id number] [phone] WILLIS,EDILBERTO SOTELOZA SPOUSE [employer] ([id number]) PRESCRIPT ION L4TA* Apr 18, 2020 L4TA [id number] WILLISEDILBERTO SPOUSE [employer] ([id number]) PRESCRIPT ION L4TA Apr 18, 2018 L4TA [id number] WILLIS,EDILBERTO WONG SPOUSE [employer] ([id number]) PRESCRIPT ION L4TA* Apr 18, 2018 L4TA [id number] WILLIS,EDILBERTO BROOKS SPOUSE [employer] ([id number]) PRESCRIPT ION Apr 18, 2018 L4TA [id number] WILLISEDILBERTO SPOUSE [employer] ([id number]) PRESCRIPT ION Apr 18, 2018 L4TA [id number] WILLISEDILBERTO SPOUSE [employer]-MINOR BROGATION PRESCRIPT ION [place] Apr 18, 2020 L4TA [id number] WILLISEDILBERTO SPOUSE [facility] CE ORGANIZAT ION W/OUT OF NETWORK BENEFITS [facility] RSD ACT Apr 18, 2018 [id number] EDILBERTO PEDRO SPOUSE [place] BCBS [facility] (BLUECARD) [facility] CE ORGANIZAT ION [facility] AC Apr 18, 2018 [id number] [phone] WILLISEDILBERTO SPOUSE MEDICARE (WNR) MEDICARE (M) PART A Mar 19, 1990 PART A [id number] WILLISLAVELLE AEL PATIENT MEDICARE (WNR) MEDICARE (M) PART A Mar 19, 1990 PART A [id number] WILLIS,LAVELLE AEL PATIENT MEDICARE (WNR) MEDICARE (M) PART A Mar 19, 1990 PART A [id number] WILLIS,LAVELLE AEL PATIENT MEDICARE (WNR) MEDICARE (M) PART A Mar 19, 1990 PART A [id number] WILLIS,LAVELLE AEL PATIENT MEDICARE (WNR) MEDICARE (M) PART A Mar 19, 1990 PART A [id number] WILLIS,LAVELLE AEL PATIENT MEDICARE (WNR) MEDICARE (M) PART A Mar 19, 1990 PART A [id number] WILLIS,LAVELLE AEL PATIENT MEDICARE (WNR) MEDICARE (M) PART A Mar 19, 1990 PART A [id number] WILLIS,LAVELLE AEL PATIENT MEDICARE (WNR) MEDICARE (M) PART A Mar 19, 1990 PART A [id number] WILLIS,LAVELLE AEL PATIENT MEDICARE (WNR) MEDICARE (M) PART A Mar 19, 1990 PART A [id number] WILLIS,LAVELLE AEL PATIENT MEDICARE (WNR) MEDICARE (M) PART A Mar 19, 1990 PART A [id number] WILLIS,LAVELLE AEL PATIENT MEDICARE (WNR) MEDICARE (M) PART A Mar 19, 1990 PART A [id number] [phone] WILLIS,LAVELLE AEL PATIENT Selected Encounter This section includes the information on record at [place] for the Encounter. Date/Time Encounter Type Encounter Description Reason Pro vider Source Nov 28, 2023 05:44 PM Outpatient Encounter ENDOCRINOLOGY IHE Encounter Template Text not used by [place] Plan of Treatment: Future Appointments (+ 6 [...] 20 appointments. The data comes from all [place] treatment facilities. Appointment Date/Time Appointment Type Appointme nt Facility Name Dec 10, 2023 10:00 AM AMBULATORY - MEDICINE [facility] [place] [facility] Dec 10, 2023 10:30 AM AMBULATORY - NONE [facility] [place] [facility] Dec 14, 2023 08:00 AM AMBULATORY - MEDICINE [facility] [place] [facility] Jan 13, 2024 03:00 PM AMBULATORY - MEDICINE [facility] [facility] Feb 04, 2024 08:00 AM AMBULATORY - MEDICINE [facility] [facility] February 17, 2024 12:00 PM AMBULATORY - MEDICINE [facility] Mar 28, 2024 10:00 AM AMBULATORY - NONE [facility] [place] [facility] Mar 28, 2024 10:30 AM AMBULATORY - MEDICINE [facility] Mar 28, 2024 01:00 PM AMBULATORY - MEDICINE [facility] Apr 06, 2024 01:30 PM AMBULATORY - MEDICINE [facility] [facility] Lab Results: +/- 30 days of the encounter This section includes the Chemistry and Hematology Lab Results on record with [place] for the patient. Radiology Reports and Pathology Reports are provided separately, in subsequent sections. Lab Results This section contains the Chemistry/Hematology Results that were resulted 30 days before or 30 daysafter the date of the Encounter. Date/Time Source Result Type Result - Unit Interpretation Reference Range Comment Nov 27, 2023 08:43 AM [facility] [facility] LIPID PANEL FASTING Specimen Type: SERUM No comment entered. Ordering Provider: KIMEBR MACK Report Released Date/Time: Jun 04, 2023 10:09 AM Reporting Lab: [facility] [facility] [address] [facility] [address] Performing Lab: [place] [facility] [address] [facility] [facility] [address] CHOLESTEROL 136 mg/dL TRIGLYCERIDE 119 mg/dL 0-150 LDL calculated 69 mg/dL 0-129 CHOL/HDL 3.2 HDL CHOLESTEROL 43 mg/dL 40-60 Nov 27, 2023 08:43 AM [facility] MICROALBUMIN CREATININE RATIO PANEL Specimen Type: URINE No comment entered. Ordering Provider: KIMBER MACK Report Released Date/Time: Jun 04, 2023 10:09 AM Reporting Lab: [facility] [address] [address] Performing Lab: [facility] [address] [facility] [facility] [address] MICROALBUMIN/C REATININE RATIO 5.7 mg/g 0-29.9 MICROALBUMIN,Q UANTITATIVE 0.6 mg/dL RR UNAVAIL CREATININE URINE 104.48 mg/dL Nov 27, 2023 08:43 AM [facility] HEMOGLOBIN A1C PANEL Specimen Type: BLOOD [...] Jun 04, 2023 10:09 AM Reporting Lab: [facility] [address] [address] Performing Lab: [address] [address] HEMOGLOBIN A1C 6.1 H 4.0-5.6 Nov 27, 2023 08:43 AM [facility] BASIC METABOLIC PANEL (fasting) Specimen Type: SERUM No comment entered. Ordering Provider: KIMBER MACK Report Released Date/Time: Jun 04, 2023 10:09 AM Reporting Lab: [facility] [address] [facility] [address] Performing Lab: [address] [address] UREA NITROGEN 12 mg/dL 7-25 GLUCOSE 133 [...] and tobacco- related health factors from the [place] facility where the Encounter took place. Current Smoking Status This section includes the most current smoking, or tobacco-related health factor, from the [place] facility where the Encounter took place. Date/Time Current Smoking Status Comment [facility] Nov 27, 2023 11:00 AM [place]-TOBACCO QUIT 15 YRS OR MORE [facility] Tobacco Use History This section includes a history of the smoking, or tobacco-related health factors, that were collected on or before the date of the Encounter. The data comes from the [place] facility where the Encounter took place. Date/Time Smoking Status/Tobac co Use Comment [facility] Nov 27, 2023 11:00 AM VA-TOBACCO QUIT 15 YRS OR MORE [facility] Dec 02, 2022 08:00 AM VA-TOBACCO FORMER USER [facility] Dec 02, 2022 08:00 AM VA-TOBACCO QUIT 15 YRS OR MORE [facility] Nov 05, 2021 10:30 AM VA-TOBACCO FORMER USER [facility] Nov 05, 2021 10:30 AM [place]-TOBACCO QUIT 1 TO < 5 YRS [facility] Sep 14, 2020 02:00 PM VA-TOBACCO FORMER USER [place] [facility] Sep 14, 2020 02:00 PM VA-TOBACCO QUIT 5 TO < 15 YRS [facility] [facility] Jan 22, 2018 03:40 PM QUIT TOBACCO USE > 7 YEARS AGO [facility] Jun 04, 2016 02:01 PM CURRENT SMOKER been smoking pass 20 yrs [facility] Jun 04, 2016 02:01 PM V1-PT DECLINES REF TO TOBACCO CESS PRGM [facility] Jun 04, 2016 02:01 PM V1-PT THINKING ABOUT QUIT TOBACCO USE [facility] Jul 18, 2014 03:31 PM V1-PT DECLINES REF TO TOBACCO CESS PRGM [facility] Jul 18, 2014 03:31 PM V1-PT DECLINES TOBACCO CESSATION MEDS [facility] Jul 18, 2014 03:31 PM V1-PT NOT INTERESTED IN QUIT TOBACCO USE [facility] Jan 09, 2014 10:43 AM CURRENT SMOKER pt smokes 1 pk of cigarettes per day. [facility] Jan 09, 2014 10:43 AM V1-PT THINKING ABOUT QUIT TOBACCO USE [facility] Aug 28, 2003 10:47 AM CURRENT SMOKER one pack q 6 days - he has cut down from 3 PPD. He is in the process of quitting [facility] Radiology Reports: +/- 30 days of [...] the Encounter. The data comes from all [facility] facilities. Date/Time Radiology Report Provider Source Dec 10, 2023 10:31 AM ULTRASOUND AAA SCREENING: CHAYA PEDRO [id number] -[id number] M Exm Date: DEC 10, 2023@10:31 Req Phys: ELIZABET ROBINS Pat Loc: CWM/NO/PACT 5 (Req'g Loc) Img Loc: ULTRASOUND Service: Unknown (Case [id number] COMPLETE) ULTRASOUND AAA SCREENING (US Detailed) CPT:06958 Reason for Study: US Abdomen, AAA screen Clinical History: Report Status: Verified Date Reported: DEC 10, 2023 Date Verified: DEC 10, 2023 Beam Saw Operator E-Sig:/ES/RAYMOND LEAL JR Report: Study: AAA screening [...] Primary Interpreting Staff: RAYMOND LEAL JR, Radiologist (Beam Saw Operator) /RAYMOND SHELTON JR [facility] Encounter Notes: All associated encounter notes This section contains the clinical notes associated to the Encounter. Date/Time Encounter Note(s) Provider Source Nov 28, 2023 05:44 PM LETTERS: LOCAL TITLE: PATIENT LETTER (B) STANDARD TITLE: LETTERS DATE OF NOTE: NOV 28, 2023@17:44 ENTRY DATE: NOV 28, 2023@17:44:30 AUTHOR: KIMBER MACK EXP COSIGNER: URGENCY: STATUS: COMPLETED Nov CHAYA PEDRO [address], [place] [address] Dear , Your recent test results are as follows: 11/27/2023 08:43 BLOOD !! HEMOGLOBIN A1C 6.1 H % 4.0 - 5.6 11/27/2023 08:43 URINE mALB/Cr 5.7 mg/G 0 - 29.9 11/27/2023 08:43 SERUM CREATININE, Serum 0.84 mg/dL 0.50 - 1.40 eGFR(CKD-EPI 2020 >90 mL/min Ref: >=60 SODIUM 141 mmol/L 135 - 145 POTASSIUM 4.1 mmol/L 3.5 - 5.0 CHLORIDE 109 mmol/L 100 - 110 CO2 21 mEq/L 20 - 30 UREA NITROGEN 12 mg/dL 7 - 25 GLUCOSE 133 H mg/dL 65 - 100 CHOLESTEROL 136 mg/dL <7 - 199 TRIGLYCERIDE 119 mg/dL 0 - 150 LDL cholesterol 69 mg/dL 0 - 70 CHOL/HDL 3.2 HDL CHOLESTEROL 43 mg/dL 40 - 60 Your kidney function blood test, urine test, and chemistries are normal. Please call if you have any questions or concerns at [phone] option 2 option 4. Sincerely, MD FREDERICK Morocho ALICE [facility]
--- OUTSIDE RECORDS SUMMARY | 2024-11-01 07:57 | XMS_ITS ---
Author Name [facility] [place] [facility] [place] Organization [facility] [place] [facility] [place] Address [address] [place] [address] Care Team Providers Care Riprap Worker Name Role Phone ELIZABET ROBINS Primary [...] Paul's Name Patient's Relationship to Policy Paul [facility] CE ORGANIZ [facility] AC Apr 18, 2018 [phone] WILLIS,MAR JUDITH SPOUSE ANTHEM BCBS OF [place] (BLUECARD) [facility] MAIN[facility] CE ORGANIZ [facility] Apr 18, 2018 [id number] [phone] WILLIS,MAR JUDITH SPOUSE BCBS [facility] CE ORGANIZ [facility] SHARE ACTIV E Apr 18, 2018 [phone] WILLIS,MAR JUDITH SPOUSE BCBS OF [facility] CE ORGANIZ [facility] Apr 18, 2018 [id number] [phone] WILLIS,MAR JUDITH PATIENT BCBS OF [facility] CE ORGANIZ [facility] Apr 18, 2018 [id number] WILLIS,MAR JUDITH SPOUSE BCBS OF [place] PREFERRED PROVIDER ORGANIZAT ION (PPO) [facility] AC Apr 18, 2018 [id number] WILLIS,MAR JUDITH SPOUSE BCBS OF [facility] CE ORGANIZ [facility] ACT Apr 18, 2018 [id number] WILLIS,MAR JUDITH SPOUSE BCBS OF [facility] CE ORGANIZ [facility] AC Apr 18, 2018 [id number] WILLIS,MAR JUDITH SPOUSE [place] PRESCRIPT ION RX22M B Oct 19, 2022 [id number] [phone] WILLIS,MAR JUDITH SPOUSE [place] PRESCRIPT ION RX22M A Oct 19, 2022 RX22MA [id number] WILLIS,LAVELLE AEL PATIENT [place] PRESCRIPT ION RX22M B Oct 19, 2022 [id number] WILLIS,LAVELLE AEL PATIENT [place] PRESCRIPT ION [facility] AC Oct 19, 2022 [id number] [phone] WILLIS,LAVELLE AEL SPOUSE [place] PRESCRIPT ION [place] OF [place] Oct 19, 2022 [id number] WILLIS, SPOUSE [place] PRESCRIPT ION RX Oct 19, 2022 [id number] [phone] WILLIS,MAR JUDITH SPOUSE [place] ([id number]) PRESCRIPT ION [place] Oct 19, 2022 [id number] [phone] WILLIS,MAR JUDITH SPOUSE [place] BC[place] ([facility] CE ORGANIZ [facility] AC Apr 18, 2018 [id number] [phone] WILLIS,EDILBERTO SOTELOZA SPOUSE [place] PRESCRIPT [place] 2018 L4TA [id number] WILLIS,EDILBERTO JUDITH SPOUSE [employer] ([id number]) PRESCRIPT ION Apr 18, 2018 L4TA [id number] [id number] WILLIS,EDILBERTO JUDITH SPOUSE [employer] ([id number]) PRESCRIPT ION L4TA* Apr 18, 2020 L4TA [id number] WILLISEDILBERTOA SPOUSE [employer] ([id number]) PRESCRIPT ION L4TA Apr 18, 2018 L4TA [id number] WILLIS,EDILBERTO SOTELOZA SPOUSE [employer] ([id number]) PRESCRIPT ION L4TA* Apr 18, 2018 L4TA [id number] WILLIS,EDILBERTO PALAFOXA SPOUSE [employer] ([id number]) PRESCRIPT ION Apr 18, 2018 L4TA [id number] WILLISEDILBERTO SPOUSE [employer] ([id number]) PRESCRIPT ION Apr 18, 2018 L4TA [id number] WILLIS,EDILBERTO WONG SPOUSE [employer] PRESCRIPT ION [place] OF [place] Apr 18, 2020 L4TA [id number] WILLIS,EDILBERTO WONG SPOUSE [facility] ([facility]) [facility] CE ORGANIZAT ION W/OUT OF NETWORK BENEFITS [facility] ACT Apr 18, 2018 [phone] WILLISEDILBERTO SPOUSE [place] BCBS [facility] (BLUECARD) [facility] CE ORGANIZAT ION [facility] AC Apr 18, 2018 [id number] [phone] WILLIS,EDILBERTO WONG SPOUSE MEDICARE (WNR) MEDICARE (M) PART A Mar 19, 1990 PART A [id number] WILLISLAVELLE AEL PATIENT MEDICARE (WNR) MEDICARE (M) PART A Mar 19, 1990 PART A [id number] [phone] WILLIS,LAVELLE AEL PATIENT MEDICARE (WNR) MEDICARE (M) PART A Mar 19, 1990 PART A [id number] WILLIS,LAVELLE AEL PATIENT MEDICARE (WNR) MEDICARE (M) PART A Mar 19, 1990 PART A [id number] WILLIS,LAVELLE AEL PATIENT MEDICARE (WNR) MEDICARE (M) PART A Mar 19, 1990 PART A [id number] WILLIS,LAVELLE AEL PATIENT MEDICARE (WNR) MEDICARE (M) PART A Mar 19, 1990 PART A [id number] WILLIS,LAVELLE AEL PATIENT MEDICARE (WNR) MEDICARE (M) PART A Mar 19, 1990 PART A [id number] [phone] WILLIS,LAVELLE AEL PATIENT MEDICARE (WNR) MEDICARE (M) PART A Mar 19, 1990 PART A [id number] WILLIS,LAVELLE AEL PATIENT MEDICARE (WNR) MEDICARE (M) PART A Mar 19, 1990 PART A [id number] WILLIS,LAVELLE AEL PATIENT MEDICARE (WNR) MEDICARE (M) PART A Mar 19, 1990 PART A [id number] WILLIS,LAVELLE AEL PATIENT MEDICARE (WNR) MEDICARE (M) PART A Mar 19, 1990 PART A [id number] [phone] WILLIS,LAVELLE AEL PATIENT Selected Encounter This section includes the information on record at [place] for the Encounter. Date/Time Encounter Type Encounter Description Reason Provider Source Dec 10, 2023 10:00 AM OFFICE O/P EST MOD 30 MIN ENDOCRINOLOGY ICD-10-CM E11.9 Type 2 diabetes mellitus without complications KIMBER MACK Encounter Template Text not used by [place] Assessments - Encounter Diagnoses This section includes the primary and secondary diagnoses documented for the Encounter. Date/Time Primary/Secondary Diagnosis Diagnosis Name Provider Source Dec 25, 2023 03:09 PM PRIMARY Type 2 diabetes mellitus without complications KIMBER MACK [facility] [place] [facility] Dec 25, 2023 03:09 PM SECONDARY Essential (primary) hypertension KIMBER MACK [facility] [place] [facility] Dec 25, 2023 03:09 PM SECONDARY Hyperlipidemia, unspecified KIMBER MACK [facility] [place] [facility] Dec 25, 2023 03:09 PM SECONDARY Obesity, unspecified KIMBER MACK [facility] [place] [facility] Dec 25, 2023 03:09 PM SECONDARY Type 2 diabetes mellitus with diabetic polyneuropathy ASHBURNKIMBER [facility] [place] [facility] Plan of Treatment: Future Appointments (+ 6 months) and Future Tests (+/- 45 days) The Plan of Treatment section includes future care activities for the patient from all [facility]. This section includes future appointments and future orders which are active, pending or scheduled. Future Appointments This section includes appointments that were scheduled to occur 6 months from the date of the Encounter, up to a maximum of 20 appointments. The data comes from all [place] treatment facilities. Appointment Date/Time Appointment Type Appointme nt Facility Name Dec 14, 2023 08:00 AM AMBULATORY - MEDICINE [facility] [place] [facility] Jan 13, 2024 03:00 PM AMBULATORY - MEDICINE [facility] [place] [facility] Feb 04, 2024 08:00 AM AMBULATORY - MEDICINE [facility] [place] [facility] February 17, 2024 12:00 PM AMBULATORY - MEDICINE [facility] [place] [facility] Mar 28, 2024 10:00 AM AMBULATORY - NONE [facility] [place] [facility] Mar 28, 2024 10:30 AM AMBULATORY - MEDICINE [facility] [place] [facility] Mar 28, 2024 01:00 PM AMBULATORY - MEDICINE [facility] [place] [facility] Apr 06, 2024 01:30 PM AMBULATORY - MEDICINE [facility] [place] [facility] May 30, 2024 08:30 AM AMBULATORY - MEDICINE [facility] [place] [facility] May 30, 2024 09:30 AM AMBULATORY - MEDICINE [facility] [place] [facility] Jun 01, 2024 10:00 AM [facility] [place] [facility] Jun 01, 2024 11:30 AM AMBULATORY - MEDICINE [facility] Lab Results: +/- 30 days of the encounter This section includes the Chemistry and Hematology Lab Results on record with [place] for the patient. Radiology Reports and Pathology Reports are provided separately, in subsequent sections. Lab Results This section contains the Chemistry/Hematology Results that were resulted 30 days before or 30 daysafter the date of the Encounter. Date/Time Source Result Type Result - Unit Interpretation Reference Range Comment Nov 27, 2023 08:43 AM [facility] LIPID PANEL FASTING Specimen Type: SERUM No comment entered. Ordering Provider: KIMBER MACK Report Released Date/Time: Jun 04, 2023 10:09 AM Reporting Lab: [address] [address] Performing Lab: [address] [address] CHOLESTEROL 136 mg/dL TRIGLYCERIDE 119 mg/dL 0-150 LDL calculated 69 mg/dL 0-129 CHOL/HDL 3.2 HDL CHOLESTEROL 43 mg/dL 40-60 Nov 27, 2023 08:43 AM [facility] MICROALBUMIN CREATININE RATIO PANEL Specimen Type: URINE No comment entered. Ordering Provider: KIMBER MACK Report Released Date/Time: Jun 04, 2023 10:09 AM Reporting Lab: [address] [address] Performing Lab: [address] [address] MICROALBUMIN/C REATININE RATIO 5.7 mg/g 0-29.9 MICROALBUMIN,Q UANTITATIVE 0.6 mg/dL RR UNAVAIL CREATININE URINE 104.48 mg/dL Nov 27, 2023 08:43 AM [facility] HEMOGLOBIN A1C PANEL Specimen Type: BLOOD Comment: [...] Jun 04, 2023 10:09 AM Reporting Lab: [facility] [address] [facility] [address] Performing Lab: [address] [address] HEMOGLOBIN A1C 6.1 H 4.0-5.6 Nov 27, 2023 08:43 AM [facility] BASIC METABOLIC PANEL (fasting) Specimen Type: SERUM No comment entered. Ordering Provider: KIMBER MACK Report Released Date/Time: Jun 04, 2023 10:09 AM Reporting Lab: [facility] [address] [facility] [address] Performing Lab: [address] [address] UREA NITROGEN 12 mg/dL 7-25 GLUCOSE 133 [...] 115/76 16 97 3 65 211 35 [facility] Social History: Smoking Status (Most current) and Tobacco Use (All prior to encounter date) This section includes the most current, and the historical, smoking and tobacco- related health factors from the PR facility where the Encounter took place. Current Smoking Status This section includes the most current smoking, or tobacco-related health factor, from the PR facility where the Encounter took place. Date/Time Current Smoking Status Comment Enrique shannon Nov 27, 2023 11:00 AM VA-TOBACCO QUIT 15 YRS OR MORE [facility] Tobacco Use History This section includes a history of the smoking, or tobacco-related health factors, that were collected on or before the date of the Encounter. The data comes from the PR facility where the Encounter took place. Date/Time Smoking Status/Tobac co Use Comment Facility Nov 27, 2023 11:00 AM VA-TOBACCO QUIT 15 YRS OR MORE [facility] Dec 02, 2022 08:00 AM [facility] Dec 02, 2022 08:00 AM VA-TOBACCO QUIT 15 YRS OR MORE [facility] Nov 05, 2021 10:30 AM [facility] Nov 05, 2021 10:30 AM PR-TOBACCO QUIT 1 TO < 5 YRS [facility] Sep 14, 2020 02:00 PM [facility]BACCO [facility] Sep 14, 2020 02:00 PM VA-TOBACCO QUIT 5 TO < 15 YRS [facility] [place] [facility] Jan 22, 2018 03:40 PM QUIT TOBACCO USE > 7 YEARS AGO [facility] Jun 04, 2016 02:01 PM CURRENT SMOKER been smoking pass 20 yrs [facility] Jun 04, 2016 02:01 PM V1-PT DECLINES REF TO TOBACCO CESS [facility] Jun 04, 2016 02:01 PM V1-PT THINKING ABOUT QUIT TOBACCO USE [facility] Jul 18, 2014 03:31 PM V1-PT DECLINES REF TO TOBACCO CESS [facility] Jul 18, 2014 03:31 PM V1-PT DECLINES TOBACCO CESSATION MEDS [facility] Jul 18, 2014 03:31 PM V1-PT NOT INTERESTED IN QUIT TOBACCO USE [facility] Jan 09, 2014 10:43 AM CURRENT SMOKER pt smokes 1 pk of cigarettes per day. [facility] Jan 09, 2014 10:43 AM V1-PT THINKING ABOUT QUIT TOBACCO USE [facility] Aug 28, 2003 10:47 AM CURRENT SMOKER one pack q 6 days - he has cut down from 3 PPD. He is in the process of quitting [facility] Radiology Reports: +/- 30 days of the [...] the Encounter. The data comes from all PR treatment facilities. Date/Time Radiology Report Provider Source Dec 10, 2023 10:31 AM ULTRASOUND AAA SCREENING: CHAYA PEDRO [id number] -[id number] M Exm Date: DEC 10, 2023@10:31 Req Phys: ELIZABET ROBINS Pat Loc: CWM/NO/PACT 5 (Req'g Loc) Img Loc: ULTRASOUND Service: Unknown (Case [id number] COMPLETE) ULTRASOUND AAA SCREENING (US Detailed) CPT:98753 Reason for Study: US Abdomen, AAA screen Clinical History: Report Status: Verified Date Reported: DEC 10, 2023 Date Verified: DEC 10, 2023 Guidance Consultant E-Sig:/ES/RAYMOND LEAL JR Report: Study: AAA screening [...] Primary Interpreting Staff: RAYMOND LEAL JR, Radiologist (Guidance Consultant) /RAYMOND SHELTON JR [facility] Encounter Notes: All associated encounter notes This section contains the clinical notes associated to the Encounter. Date/Time Encounter Note(s) Provider Source Dec 10, 2023 06:15 PM ADDENDUM: LOCAL TITLE: Addendum STANDARD TITLE: ADDENDUM DATE OF NOTE: DEC 10, 2023@18:15:21 ENTRY DATE: DEC 10, 2023@18:15:23 AUTHOR: KIMBER MACK COSIGNER: URGENCY: STATUS: COMPLETED SC nurse, kindly schedule meter download. Thank you. /gaetano/ KIMBER MACK MD STAFF PHYSICIAN Signed: 12/10/2023 18:16 Receipt Acknowledged By: 12/11/2023 07:25 /gaetano/ ABA GUERRERO RN --- Original Document --- 12/07/23 NOTE: CC: Diabetes Mellitus type 2 with peripheral neuropathy, HTN, Hyperlipidemia, Obesity HPI: At last visit, brother was very ill. He passed. TWo other brothers are very ill. Grieving has impacted self care. He has good family supports. at last visit. Lives with , gdtr. manages CHO. He has been working on his diet. All endocrine labs were reviewed with the patient. Barriers/s supports for care: Lives with and granddtr. supports CHO management. Taking three meals a day Medications for diabetes: Metformin BG readings: does not bring meter. Reports fbg low 100's. Not checking RBG. Collection DT Spec HGBA1c 11/27/2023 08:43 BLOOD 6.1 H 05/28/2023 11:39 BLOOD 6.1 H 12/02/2022 09:03 BLOOD 6.1 H 07/08/2022 10:39 BLOOD 6.5 H 04/08/2022 09:16 BLOOD 8.9 H Weight trend: 211 lbs BMI 35.2 Lost 20 lbs in past two years Food insecurity no Physical activity: Moderate, housework. some walking and plays basketball with grandchildren Carbohydrate counting: feels well informed Episodes of hypoglycemia: no Hypoglycemia unawareness: Neuropathy pain: No Last eye evaluation: 11/[address] has appt in January Last nephropathy screen MICROALBUMIN Nov 27, 2023@08:43 URINE mALB/Cr: 5.7 mg/G 0 - 29.9 FindingsCREATININE-EGFR 11/27/23 08:43 0.84 05/28/23 11:39 0.87 12/29/22 14:56 0.84 Statin therapy:Nov 27 2023 08:43 CHOL 136 mg/dL <7 - 199 TRIG 119 mg/dL 0 - 150 HDL 43 mg/dL 40 - 60 LDL 69 mg/dL 0 - 70 CAD: none known On asa: no emergency kit/glucose tabs: glucagon n/a Active problems - Computerized Problem List is the source for the followin. Peripheral neuropathy due to type 2 diabetes mellitus 2. Seasonal allergic rhinitis 3. Nonalcoholic steatohepatitis 4. History of substance abuse 5. Obesity 6. Diabetes mellitus type 2 7. Elevated liver enzymes level 8. Sleep apnea 9. Hypertension 10. 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 Diverticulosis 13. Galeas's esophagus 14. Rosacea 15. Deep venous thrombosis of upper extremity 16. Nephrolithiasis 17. Hyperlipidemia 18. Lower urinary tract symptoms due to benign prostatic hypertrophy (SNOMED CT 19. Family history of prostate cancer 20. Schizoaffective disorder (SNOMED CT 76964201) 21. Alcohol Dependence 22. Periodontal Disease NEC 23. GERD 24. Seizure disorder (SNOMED CT 629802996) 25. REFRACTION DISORDER NOS Active Outpatient Medications (including Supplies): ACCU-CHEK GUIDE (GLUCOSE) TEST STRIP USE 1 STRIP TO TEST ACTIVE BLOOD SUGARS TWO TIMES A WEEK ALBUTEROL 3/IPRATROP 0.5MG/3ML INHL 3ML INHALE 1 VIAL ACTIVE (3ML) IN NEBULIZER EVERY 4 HOURS NEEDED FOR BRONCHOSPASM ALBUTEROL 90MCG (CFC-F) 200D ORAL INHL INHALE 2 PUFFS BY ACTIVE MOUTH EVERY 4 HOURS NEEDED FOR SHORTNESS OF BREATH AMLODIPINE BESYLATE 5MG TAB TAKE ONE TABLET BY MOUTH ONCE ACTIVE DAILY FOR BLOOD PRESSURE/HEART, DO NOT TAKE WITH GRAPEFRUIT JUICE ATORVASTATIN CALCIUM 80MG TAB TAKE ONE-HALF TABLET BY ACTIVE MOUTH AT BEDTIME FOR CHOLESTEROL DOXYCYCLINE HYCLATE 50MG CAP TAKE ONE CAPSULE BY MOUTH ACTIVE ongoing TWICE DAILY FOR INFECTION CAUSED BY BACTERIA ERYTHROMYCIN 0.5% OPH OINT APPLY THIN RIBBON INTO EACH EYE ACTIVE TWICE DAILY NEEDED FOR EYE INFECTION FAMOTIDINE 20MG TAB TAKE ONE TABLET BY MOUTH DAILY FOR ACTIVE STOMACH ACID LACTOBACILLUS ACIDOPHILUS CAP TAKE 1 CAPSULE BY MOUTH ACTIVE TWICE DAILY LEVOCETIRIZINE DIHYDROCHLORIDE 5MG TAB TAKE ONE TABLET BY ACTIVE MOUTH EVERY EVENING FOR ALLERGIES LIDOCAINE 5% PATCH APPLY 1 PATCH TOPICALLY EVERY 12 HOURS ACTIVE NEEDED (LEAVE PATCH ON FOR 12 HOURS, THEN REMOVE PATCH) METFORMIN HCL 1000MG TAB TAKE ONE TABLET BY MOUTH TWICE ACTIVE DAILY FOR DIABETES SHX:as above ROS: some chronic respiratory sx no fever PE: affect pleasant appropriate speaking easily in full sentences Feet pulses good sensory to monofilament very mild decrease lesions no Medical Decision Making: Diabetes Mellitus type 2 with peripheral neuropathy continue metformin for now Check RBG. Carbohydrate targets 45-60 gm TID Blood sugar targets 80-130 premeal and 140-170 after Hemoglobin A1c Targets 7 Obesity Declines MOVE/teleMOVE He endorses very positive diet changes. He will continue his healthy eating plan to lose weight Hypertension well controlled Hyperlipidemia: Hx ADR to higher dose atorvastatin, well controlled Team follow up none at this time. lab None at this time F/u With PCP regarding DM WHOLE HEALTH SHARED GOAL (Focus area honoring [place] MAP & Team priorities) He will continue his healthy eating plan to lose weight. Medication Reconciliation: Outpatient: Has the patient been taking medications as documented in the EMLR? YES: The patient has been taking medications as documented in the EMLR. Essential Medication List for Review used to complete this medication reconciliation. INCLUDED IN THIS LIST: Alphabetical list of active outpatient prescriptions dispensed from this [place] (local) and dispensed from another [place] or DoD facility (remote) as well as inpatient orders (local, pending and active), local clinic medications, locally documented non-VA medications, and local prescriptions that have or been discontinued in the past 90 days. - All changes in medications, including all non-VA/Herbal/OTC medications were entered into CPRS. - If there were any medications the patient should no longer take, they were discontinued. - The patient/caregiver was instructed to update this list, discard old lists, and take this list to the next appointment, whether with a VA or non-VA provider. JLV Link Data on this list may not be complete. Please check JLV. Allergies/ADRs (Tool #5) FACILITY ALLERGY/ADR -------- [facility] NO KNOWN ALLERGIES [facility] NO KNOWN ALLERGIES [facility] [place] AKWA TEARS [facility] [place] DIFLUCAN [facility] [place] FLUOROMETHOLONE [facility] [place] [facility] LEVETIRACETAM [facility] [place] [facility] OXYCODONE [facility] [place] PHENYTOIN [facility] [place] REFRESH TEARS [facility] ([facility] INCLUDED IN THIS LIST: Alphabetical list of active outpatient prescriptions dispensed from this VA (local) and dispensed from another PR or DoD facility (remote) as well as inpatient orders (local pending and active), local clinic medications, locally documented non-VA medications, and local prescriptions that have or been discontinued in the past 90 days. Non-VA Meds Last Documented On: Jul 18, 2014 NOTE The display of VA prescriptions dispensed from another PR or DoD facility (remote) is limited to active outpatient prescription entries matched to National Drug File at the originating site and may not include some items such as investigational drugs, compounds, etc. NOT INCLUDED IN THIS LIST: Medications self-entered by the patient into personal health records (i.e. [employer]) are NOT included in this list. Non-VA medications documented outside this VA, remote inpatient orders (regardless of status) and remote clinic medications are NOT included in this list. The patient and provider must always discuss medications the patient is taking, regardless of where the medication was dispensed or obtained. OUTPT ALBUTEROL 3/IPRATROP 0.5MG/3ML INHL 3ML (Status = Active) INHALE 1 VIAL (3ML) IN NEBULIZER EVERY 4 HOURS NEEDED FOR BRONCHOSPASM Rx# [id number] Last Released: 06/09/23 Qty/Days Supply: Rx Expiration Date: 03/02/24 Refills Remainin Indication: FOR BRONCHOSPASM OUTPT ALBUTEROL 90MCG (CFC-F) 200D ORAL INHL (Status = Active) INHALE 2 PUFFS BY MOUTH EVERY 4 HOURS NEEDED FOR SHORTNESS OF BREATH Rx# [id number] Last Released: 06/11/23 Qty/Days Supply: 11/17 Rx Expiration Date: 03/02/24 Refills Remainin OUTPT AMLODIPINE BESYLATE 5MG TAB (Status = Active) TAKE ONE TABLET BY MOUTH ONCE DAILY FOR BLOOD PRESSURE/HEART, DO NOT TAKE WITH GRAPEFRUIT JUICE Rx# [id number] Last Released: 09/21/23 Qty/Days Supply: Rx Expiration Date: 06/25/24 Refills Remainin OUTPT ATORVASTATIN CALCIUM 80MG TAB (Status = Active) TAKE ONE-HALF TABLET BY MOUTH AT BEDTIME FOR CHOLESTEROL Rx# [id number] Last Released: 10/02/23 Qty/Days Supply: Rx Expiration Date: 01/28/24 Refills Remainin Indication: FOR HIGH CHOLESTEROL OUTPT DOXYCYCLINE HYCLATE 50MG CAP (Status = Active) TAKE ONE CAPSULE BY MOUTH TWICE DAILY FOR INFECTION CAUSED BY BACTERIA Rx# [id number] Last Released: 10/07/23 Qty/Days Supply: 120/60 Rx Expiration Date: 05/28/24 Refills Remainin Indication: FOR INFECTION CAUSED BY BACTERIA OUTPT ERYTHROMYCIN 0.5% OPH OINT (Status = Active) APPLY THIN RIBBON INTO EACH EYE TWICE DAILY NEEDED FOR EYE INFECTION Rx# [id number] Last Released: 10/23/23 Qty/Days Supply: 10/28 Rx Expiration Date: 03/30/24 Refills Remainin Indication: FOR EYE INFECTION OUTPT FAMOTIDINE 20MG TAB (Status = Active) TAKE ONE TABLET BY MOUTH DAILY FOR STOMACH ACID Rx# [id number] Last Released: 10/02/23 Qty/Days Supply: 90 Rx Expiration Date: 04/22/24 Refills Remainin OUTPT KETOTIFEN 0.025% OPH SOLN (Status = ) INSTILL 2 DROPS INTO EACH EYE ONCE DAILY FOR ITCHINESS, SWELLING (IF YOU WEAR CONTACT LENSES, WAIT 10 MINUTES BEFORE INSERTING LENSES) Rx# [id number] Last Released: 03/30/23 Qty/Days Supply: Rx Expiration Date: 12/03/23 Refills Remainin Indication: ITCHY SWOLLEN OUTPT KETOTIFEN 0.025% OPH SOLN (Status = Pending) INSTILL ONE DROP INTO EACH EYE TWICE DAILY NEEDED (If you wear contact lenses, wait 10 minutes before inserting lenses) Login Date: 12/10/23 Qty/Days Supply: Refills Ordered: 3 OUTPT LACTOBACILLUS ACIDOPHILUS CAP (Status = Discontinued) TAKE 1 CAPSULE BY MOUTH TWICE DAILY FOR PROBIOTIC SUPPLEMENTATION Rx# [id number] Last Released: 08/27/23 Qty/Days Supply: 100 Rx Expiration Date: 06/11/24 Refills Remainin Indication: FOR PROBIOTIC SUPPLEMENTATION OUTPT LACTOBACILLUS ACIDOPHILUS CAP (Status = Active) TAKE 1 CAPSULE BY MOUTH TWICE DAILY Rx# [id number] Last Released: 10/23/23 Qty/Days Supply: 200/ Rx Expiration Date: 10/15/24 Refills Remainin Indication: FOR PROBIOTIC SUPPLEMENTATION OUTPT LEVOCETIRIZINE DIHYDROCHLORIDE 5MG TAB (Status = Active) TAKE ONE TABLET BY MOUTH EVERY EVENING FOR ALLERGIES Rx# [id number] Last Released: 11/13/23 Qty/Days Supply: Rx Expiration Date: 03/02/24 Refills Remainin Indication: FOR ALLERGIES OUTPT LIDOCAINE 5% PATCH (Status = Active) APPLY 1 PATCH TOPICALLY EVERY 12 HOURS NEEDED (LEAVE PATCH ON FOR 12 HOURS, THEN REMOVE PATCH) Rx# [id number] Last Released: 08/18/23 Qty/Days Supply: Rx Expiration Date: 08/14/24 Refills Remainin Indication: FOR NERVE PAIN OUTPT METFORMIN HCL 1000MG TAB (Status = Active) TAKE ONE TABLET BY MOUTH TWICE DAILY FOR DIABETES Rx# [id number] Last Released: 11/27/23 Qty/Days Supply: 180 Rx Expiration Date: 01/28/24 Refills Remainin OUTPT METRONIDAZOLE 0.75% TOP GEL (Status = ) APPLY SMALL AMOUNT TOPICALLY TWICE DAILY FOR ACNE ROSACEA Rx# [id number] Last Released: 06/20/23 Qty/Days Supply: 45 Rx Expiration Date: 12/03/23 Refills Remainin Indication: FOR ACNE ROSACEA OUTPT PEG 400 0.4%/PROP GLYCOL 0.3% OPH SOLN (Status = ) INSTILL 1 DROP INTO EACH EYE FOUR TIMES DAILY NEEDED DRY EYE Rx# [id number] Last Released: 09/16/23 Qty/Days Supply: Rx Expiration Date: 11/25/23 Refills Remainin Indication: DRY EYE OUTPT PEG 400 0.4%/PROP GLYCOL 0.3% OPH SOLN (Status = Pending) 0.4%/PROP GLYCOL 0.3% OPH SOLN INSTILL 1 DROP INTO EACH EYE FOUR TIMES DAILY NEEDED DRY EYE Renewed from Rx# [id number] Qt/Days Supply: Login Date: 12/10/23 Refills Ordered: 11 SUPPLIES OUTPT ACCU-CHEK GUIDE (GLUCOSE) TEST STRIP (Status = Active) USE 1 STRIP TO TEST BLOOD SUGARS TWO TIMES A WEEK Rx# [id number] Last Released: 04/07/23 Qty/Days Supply: 50/180 Rx Expiration Date: 01/28/24 Refills Remainin /gaetano/ KIMBER MACK MD STAFF PHYSICIAN Signed: 12/10/2023 18:15 KIMBER MACK [facility] [place] [facility] Dec 07, 2023 06:49 AM PHYSICIAN NOTE: LOCAL TITLE: NOTE STANDARD TITLE: PHYSICIAN NOTE DATE OF NOTE: DEC 07, 2023@06:49 ENTRY DATE: DEC 07, 2023@06:49:59 AUTHOR: KIMBER MACK COSIGNER: URGENCY: STATUS: COMPLETED NOTE Has ADDENDA CC: Diabetes Mellitus type 2 with peripheral neuropathy, HTN, Hyperlipidemia, Obesity HPI: At last visit, brother was very ill. He passed. TWo other brothers are very ill. Grieving has impacted self care. He has good family supports. at last visit. Lives with , gdtr. manages CHO. He has been working on his diet. All endocrine labs were reviewed with the patient. Barriers/s supports for care: Lives with and granddtr. supports CHO management. Taking three meals a day Medications for diabetes: Metformin BG readings: does not bring meter. Reports fbg low 100's. Not checking RBG. Collection DT Spec HGBA1c 11/27/2023 08:43 BLOOD 6.1 H 05/28/2023 11:39 BLOOD 6.1 H 12/02/2022 09:03 BLOOD 6.1 H 07/08/2022 10:39 BLOOD 6.5 H 04/08/2022 09:16 BLOOD 8.9 H Weight trend: 211 lbs BMI 35.2 Lost 20 lbs in past two years Food insecurity no Physical activity: Moderate, housework. some walking and plays basketball with grandchildren Carbohydrate counting: feels well informed Episodes of hypoglycemia: no Hypoglycemia unawareness: Neuropathy pain: No Last eye evaluation: 11/[address] has appt in January Last nephropathy screen MICROALBUMIN Nov 27, 2023@08:43 URINE mALB/Cr: 5.7 mg/G 0 - 29.9 FindingsCREATININE-EGFR 11/27/23 08:43 0.84 05/28/23 11:39 0.87 12/29/22 14:56 0.84 Statin therapy:Nov 27 2023 08:43 CHOL 136 mg/dL <7 - 199 TRIG 119 mg/dL 0 - 150 HDL 43 mg/dL 40 - 60 LDL 69 mg/dL 0 - 70 CAD: none known On asa: no emergency kit/glucose tabs: glucagon n/a Active problems - Computerized Problem List is the source for the followin. Peripheral neuropathy due to type 2 diabetes mellitus 2. Seasonal allergic rhinitis 3. Nonalcoholic steatohepatitis 4. History of substance abuse 5. Obesity 6. Diabetes mellitus type 2 7. Elevated liver enzymes level 8. Sleep apnea 9. Hypertension 10. 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 Diverticulosis 13. Galeas's esophagus 14. Rosacea 15. Deep venous thrombosis of upper extremity 16. Nephrolithiasis 17. Hyperlipidemia 18. Lower urinary tract symptoms due to benign prostatic hypertrophy (SNOMED CT 19. Family history of prostate cancer 20. Schizoaffective disorder (SNOMED CT 73264770) 21. Alcohol Dependence 22. Periodontal Disease NEC 23. GERD 24. Seizure disorder (SNOMED CT 213447865) 25. REFRACTION DISORDER NOS Active Outpatient Medications (including Supplies): ACCU-CHEK GUIDE (GLUCOSE) TEST STRIP USE 1 STRIP TO TEST ACTIVE BLOOD SUGARS TWO TIMES A WEEK ALBUTEROL 3/IPRATROP 0.5MG/3ML INHL 3ML INHALE 1 VIAL ACTIVE (3ML) IN NEBULIZER EVERY 4 HOURS NEEDED FOR BRONCHOSPASM ALBUTEROL 90MCG (CFC-F) 200D ORAL INHL INHALE 2 PUFFS BY ACTIVE MOUTH EVERY 4 HOURS NEEDED FOR SHORTNESS OF BREATH AMLODIPINE BESYLATE 5MG TAB TAKE ONE TABLET BY MOUTH ONCE ACTIVE DAILY FOR BLOOD PRESSURE/HEART, DO NOT TAKE WITH GRAPEFRUIT JUICE ATORVASTATIN CALCIUM 80MG TAB TAKE ONE-HALF TABLET BY ACTIVE MOUTH AT BEDTIME FOR CHOLESTEROL DOXYCYCLINE HYCLATE 50MG CAP TAKE ONE CAPSULE BY MOUTH ACTIVE ongoing TWICE DAILY FOR INFECTION CAUSED BY BACTERIA ERYTHROMYCIN 0.5% OPH OINT APPLY THIN RIBBON INTO EACH EYE ACTIVE TWICE DAILY NEEDED FOR EYE INFECTION FAMOTIDINE 20MG TAB TAKE ONE TABLET BY MOUTH DAILY FOR ACTIVE STOMACH ACID LACTOBACILLUS ACIDOPHILUS CAP TAKE 1 CAPSULE BY MOUTH ACTIVE TWICE DAILY LEVOCETIRIZINE DIHYDROCHLORIDE 5MG TAB TAKE ONE TABLET BY ACTIVE MOUTH EVERY EVENING FOR ALLERGIES LIDOCAINE 5% PATCH APPLY 1 PATCH TOPICALLY EVERY 12 HOURS ACTIVE NEEDED (LEAVE PATCH ON FOR 12 HOURS, THEN REMOVE PATCH) METFORMIN HCL 1000MG TAB TAKE ONE TABLET BY MOUTH TWICE ACTIVE DAILY FOR DIABETES SHX:as above ROS: some chronic respiratory sx no fever PE: affect pleasant appropriate speaking easily in full sentences Feet pulses good sensory to monofilament very mild decrease lesions no Medical Decision Making: Diabetes Mellitus type 2 with peripheral neuropathy continue metformin for now Check RBG. Carbohydrate targets 45-60 gm TID Blood sugar targets 80-130 premeal and 140-170 after Hemoglobin A1c Targets 7 Obesity Declines MOVE/teleMOVE He endorses very positive diet changes. He will continue his healthy eating plan to lose weight Hypertension well controlled Hyperlipidemia: Hx ADR to higher dose atorvastatin, well controlled Team follow up none at this time. lab None at this time F/u With PCP regarding DM WHOLE HEALTH SHARED GOAL (Focus area honoring MAP & Team priorities) He will continue his healthy eating plan to lose weight. Medication Reconciliation: Outpatient: Has the patient been taking medications as documented in the EMLR? YES: The patient has been taking medications as documented in the EMLR. Essential Medication List for Review used to complete this medication reconciliation. INCLUDED IN THIS LIST: Alphabetical list of active outpatient prescriptions dispensed from this [facility] (local) and dispensed from another VA or DoD facility (remote) as well as inpatient orders (local, pending and active), local clinic medications, locally documented non-VA medications, and local prescriptions that have or been discontinued in the past 90 days. - All changes in medications, including all non-VA/Herbal/OTC medications were entered into CPRS. - If there were any medications the patient should no longer take, they were discontinued. - The patient/caregiver was instructed to update this list, discard old lists, and take this list to the next appointment, whether with a VA or non-VA provider. JLV Link Data on this list may not be complete. Please check JLV. Allergies/ADRs (Tool #5) FACILITY ALLERGY/ADR -------- [facility] NO KNOWN ALLERGIES [facility] NO KNOWN ALLERGIES [facility] [place] [facility] AKWA TEARS [facility] [place] [facility] DIFLUCAN [facility] [place] [facility] FLUOROMETHOLONE [facility] [place] [facility] LEVETIRACETAM [facility] [place] [facility] OXYCODONE [facility] [place] [facility] PHENYTOIN [facility] [place] [facility] REFRESH TEARS Med Recon NoGlossary (Tool #1) INCLUDED IN THIS LIST: Alphabetical list of active outpatient prescriptions dispensed from this [facility] (local) and dispensed from another [place] or DoD facility (remote) as well as inpatient orders (local pending and active), local clinic medications, locally documented non-VA medications, and local prescriptions that have or been discontinued in the past 90 days. Non-VA Meds Last Documented On: Jul 18, 2014 NOTE The display of VA prescriptions dispensed from another [place] or DoD facility (remote) is limited to active outpatient prescription entries matched to National Drug File at the originating site and may not include some items such as investigational drugs, compounds, etc. NOT INCLUDED IN THIS LIST: Medications self-entered by the patient into personal health records (i.e. [employer]) are NOT included in this list. Non-VA medications documented outside this [place], remote inpatient orders (regardless of status) and remote clinic medications are NOT included in this list. The patient and provider must always discuss medications the patient is taking, regardless of where the medication was dispensed or obtained. OUTPT ALBUTEROL 3/IPRATROP 0.5MG/3ML INHL 3ML (Status = Active) INHALE 1 VIAL (3ML) IN NEBULIZER EVERY 4 HOURS NEEDED FOR BRONCHOSPASM Rx# [id number] Last Released: 06/09/23 Qty/Days Supply: Rx Expiration Date: 03/02/24 Refills Remainin Indication: FOR BRONCHOSPASM OUTPT ALBUTEROL 90MCG (CFC-F) 200D ORAL INHL (Status = Active) INHALE 2 PUFFS BY MOUTH EVERY 4 HOURS NEEDED FOR SHORTNESS OF BREATH Rx# [id number] Last Released: 06/11/23 Qty/Days Supply: 11/17 Rx Expiration Date: 03/02/24 Refills Remainin OUTPT AMLODIPINE BESYLATE 5MG TAB (Status = Active) TAKE ONE TABLET BY MOUTH ONCE DAILY FOR BLOOD PRESSURE/HEART, DO NOT TAKE WITH GRAPEFRUIT JUICE Rx# [id number] Last Released: 09/21/23 Qty/Days Supply: Rx Expiration Date: 06/25/24 Refills Remainin OUTPT ATORVASTATIN CALCIUM 80MG TAB (Status = Active) TAKE ONE-HALF TABLET BY MOUTH AT BEDTIME FOR CHOLESTEROL Rx# [id number] Last Released: 10/02/23 Qty/Days Supply: Rx Expiration Date: 01/28/24 Refills Remainin Indication: FOR HIGH CHOLESTEROL OUTPT DOXYCYCLINE HYCLATE 50MG CAP (Status = Active) TAKE ONE CAPSULE BY MOUTH TWICE DAILY FOR INFECTION CAUSED BY BACTERIA Rx# [id number] Last Released: 10/07/23 Qty/Days Supply: 120/60 Rx Expiration Date: 05/28/24 Refills Remainin Indication: FOR INFECTION CAUSED BY BACTERIA OUTPT ERYTHROMYCIN 0.5% OPH OINT (Status = Active) APPLY THIN RIBBON INTO EACH EYE TWICE DAILY NEEDED FOR EYE INFECTION Rx# [id number] Last Released: 10/23/23 Qty/Days Supply: 10/28 Rx Expiration Date: 03/30/24 Refills Remainin Indication: FOR EYE INFECTION OUTPT FAMOTIDINE 20MG TAB (Status = Active) TAKE ONE TABLET BY MOUTH DAILY FOR STOMACH ACID Rx# [id number] Last Released: 10/02/23 Qty/Days Supply: Rx Expiration Date: 04/22/24 Refills Remainin OUTPT KETOTIFEN 0.025% OPH SOLN (Status = ) INSTILL 2 DROPS INTO EACH EYE ONCE DAILY FOR ITCHINESS, SWELLING (IF YOU WEAR CONTACT LENSES, WAIT 10 MINUTES BEFORE INSERTING LENSES) Rx# [id number] Last Released: 03/30/23 Qty/Days Supply: Rx Expiration Date: 12/03/23 Refills Remainin Indication: ITCHY SWOLLEN OUTPT KETOTIFEN 0.025% OPH SOLN (Status = Pending) INSTILL ONE DROP INTO EACH EYE TWICE DAILY NEEDED (If you wear contact lenses, wait 10 minutes before inserting lenses) Login Date: 12/10/23 Qty/Days Supply: Refills Ordered: 3 OUTPT LACTOBACILLUS ACIDOPHILUS CAP (Status = Discontinued) TAKE 1 CAPSULE BY MOUTH TWICE DAILY FOR PROBIOTIC SUPPLEMENTATION Rx# [id number] Last Released: 08/27/23 Qty/Days Supply: 100 Rx Expiration Date: 06/11/24 Refills Remainin Indication: FOR PROBIOTIC SUPPLEMENTATION OUTPT LACTOBACILLUS ACIDOPHILUS CAP (Status = Active) TAKE 1 CAPSULE BY MOUTH TWICE DAILY Rx# [id number] Last Released: 10/23/23 Qty/Days Supply: Rx Expiration Date: 10/15/24 Refills Remainin Indication: FOR PROBIOTIC SUPPLEMENTATION OUTPT LEVOCETIRIZINE DIHYDROCHLORIDE 5MG TAB (Status = Active) TAKE ONE TABLET BY MOUTH EVERY EVENING FOR ALLERGIES Rx# [id number] Last Released: 11/13/23 Qty/Days Supply: Rx Expiration Date: 03/02/24 Refills Remainin Indication: FOR ALLERGIES OUTPT LIDOCAINE 5% PATCH (Status = Active) APPLY 1 PATCH TOPICALLY EVERY 12 HOURS NEEDED (LEAVE PATCH ON FOR 12 HOURS, THEN REMOVE PATCH) Rx# [id number] Last Released: 08/18/23 Qty/Days Supply: Rx Expiration Date: 08/14/24 Refills Remainin Indication: FOR NERVE PAIN OUTPT METFORMIN HCL 1000MG TAB (Status = Active) TAKE ONE TABLET BY MOUTH TWICE DAILY FOR DIABETES Rx# [id number] Last Released: 11/27/23 Qty/Days Supply: Rx Expiration Date: 01/28/24 Refills Remainin OUTPT METRONIDAZOLE 0.75% TOP GEL (Status = ) APPLY SMALL AMOUNT TOPICALLY TWICE DAILY FOR ACNE ROSACEA Rx# [id number] Last Released: 06/20/23 Qty/Days Supply: Rx Expiration Date: 12/03/23 Refills Remainin Indication: FOR ACNE ROSACEA OUTPT PEG 400 0.4%/PROP GLYCOL 0.3% OPH SOLN (Status = ) INSTILL 1 DROP INTO EACH EYE FOUR TIMES DAILY NEEDED DRY EYE Rx# [id number] Last Released: 09/16/23 Qty/Days Supply: Rx Expiration Date: 11/25/23 Refills Remainin Indication: DRY EYE OUTPT PEG 400 0.4%/PROP GLYCOL 0.3% OPH SOLN (Status = Pending) 0.4%/PROP GLYCOL 0.3% OPH SOLN INSTILL 1 DROP INTO EACH EYE FOUR TIMES DAILY NEEDED DRY EYE Renewed from Rx# [id number] Qty/Days Supply: Login Date: 12/10/23 Refills Ordered: 11 SUPPLIES OUTPT ACCU-CHEK GUIDE (GLUCOSE) TEST STRIP (Status = Active) USE 1 STRIP TO TEST BLOOD SUGARS TWO TIMES A WEEK Rx# [id number] Last Released: 04/07/23 Qty/Days Supply: 50/180 Rx Expiration Date: 01/28/24 Refills Remainin /jerry MACK MD STAFF PHYSICIAN Signed: 12/10/2023 18:15 12/10/2023 ADDENDUM STATUS: COMPLETED SC nurse, kindly schedule meter download. Thank you. /jerry MACK MD STAFF PHYSICIAN Signed: 12/10/2023 18:16 Receipt Acknowledged By: * AWAITING SIGNATURE * [facility]ERR[facility]
--- OUTSIDE RECORDS SUMMARY | 2024-11-01 07:58 | XMS_ITS | Encounter Summary ---
Author Name [facility] [place] [facility] [place] Organization [facility] [place] [facility] [place] Address [address] [place] [address] Care Team Providers Care Journalism Internship Name Role Phone ELIZABET ROBINS Primary Care [...] Paul [facility] CE [facility]GANIZ [facility] AC Apr 18, 2018 [id number] WILLIS,MAR JUDITH SPOUSE ANTHEM BCBS OF [place] (BLUECARD) [facility] MA[facility] CE ORGANIZ [facility]ISTEN [facility] Apr 18, 2018 [id number] WILLIS,MAR JUDITH SPOUSE BCBS [facility] CE ORGANIZ [facility] SHARE ACTIV E Apr 18, 2018 [id number] [phone] WILLIS,MAR JUDITH SPOUSE [facility] Apr 18, 2018 [id number] [phone] WILLIS,MAR JUDITH PATIENT BCBS OF [facility] CE ORGANIZ BRENDA MCCABE [facility] Apr 18, 2018 [id number] WILLIS,MAR JUDITH SPOUSE [place] OF [place] PREFERRED PROVIDER ORGANIZAT ION (PPO) BRENDA MCCABE [facility] AC Apr 18, 2018 [id number] WILLIS,MAR JUDITH SPOUSE BCBS OF [facility] CE ORGANIZ BRENDA MCCABE [facility] ACT Apr 18, 2018 [id number] WILLIS,MAR JUDITH SPOUSE BCBS OF [facility] CE ORGANIZ BRENDA MCCABE [facility] AC Apr 18, 2018 [id number] [phone] WILLIS,MAR JUDITH SPOUSE [place] PRESCRIPT ION BRENDA MCCABE [facility] AC Oct 19, 2022 [id number] [phone] WILLIS,LAVELLE AEL SPOUSE [place] PRESCRIPT ION RX22M A Oct 19, 2022 RX22MA [id number] WILLIS,LAVELLE AEL PATIENT [place] PRESCRIPT ION RX22M B Oct 19, 2022 RX22MB [id number] WILLIS,LAVELLE AEL PATIENT [place] PRESCRIPT [place] OF [place] Oct 19, 2022 RX22MA [id number] [phone] WILLIS, SPOUSE [place] PRESCRIPT ION RX22M B Oct 19, 2022 RX22MB [phone] WILLIS,MAR JUDITH SPOUSE [place] PRESCRIPT ION RX Oct 19, 2022 [id number] [phone] WILLIS,MAR JUDITH SPOUSE [place] ([id number]) PRESCRIPT ION BCBS OF [place] Oct 19, 2022 [id number] [phone] WILLIS,MAR JUDITH SPOUSE [place] ([facility] CE ORGANIZ BRENDA MCCABE [facility] AC Apr 18, 2018 [id number] WILLIS,EDILBERTO SOTELOZA SPOUSE [employer] [place] PRESCRIPT [place] 2018 L4TA [id number] WILLIS,EDILBERTO SOTELOZA SPOUSE [employer] ([id number]) PRESCRIPT ION Apr 18, 2018 L4TA [id number] WILLIS,EDILBERTO SOTELOZA SPOUSE [employer] ([id number]) PRESCRIPT ION L4TA* Apr 18, 2020 L4TA [id number] WILLIS,EDILBERTO PALAFOXA SPOUSE [employer] ([id number]) PRESCRIPT ION L4TA* Apr 18, 2018 L4TA [id number] WILLIS,EDILBERTO PALAFOXA SPOUSE [employer] ([id number]) PRESCRIPT ION L4TA Apr 18, 2018 L4TA [id number] WILLIS,EDILBERTO WONG SPOUSE [employer] ([id number]) PRESCRIPT ION Apr 18, 2018 L4TA [id number] WILLISEDILBERTO SPOUSE [employer] ([id number]) PRESCRIPT ION Apr 18, 2018 L4TA [id number] WILLIS,EDILBERTO WONG SPOUSE [employer]-MINOR BROGATION PRESCRIPT ION [place] OF [place] Apr 18, 2020 L4TA [id number] WILLIS,EDILBERTO WONG SPOUSE [facility] ([facility] CE ORGANIZAT ION W/OUT OF NETWORK BENEFITS MDTRISTEN MCCABE [facility] ACT Apr 18, 2018 [id number] WILLISEDILBERTO SPOUSE [place] BCBS [facility] (BLUECARD) [facility] CE ORGANIZAT ION MDTRISTEN [facility] AC Apr 18, 2018 [id number] WILLISEDILBERTO SPOUSE MEDICARE (WNR) MEDICARE (M) PART A Mar 19, 1990 PART A [id number] WILLIS,LAVELLE AEL PATIENT MEDICARE (WNR) MEDICARE (M) PART A Mar 19, 1990 PART A [id number] WILLIS,LAVELLE AEL PATIENT MEDICARE (WNR) MEDICARE (M) PART A Mar 19, 1990 PART A [id number] [phone] WILLIS,LAVELLE AEL PATIENT MEDICARE (WNR) MEDICARE (M) PART A Mar 19, 1990 PART A [id number] WILLIS,LAVELLE AEL PATIENT MEDICARE (WNR) MEDICARE (M) PART A Mar 19, 1990 PART A [id number] [phone] WILLIS,LAVELLE AEL PATIENT MEDICARE (WNR) MEDICARE (M) PART A Mar 19, 1990 PART A [id number] WILLIS,LAVELLE AEL PATIENT MEDICARE (WNR) MEDICARE (M) PART A Mar 19, 1990 PART A [id number] [phone] WILLIS,LAVELLE AEL PATIENT MEDICARE (WNR) MEDICARE (M) PART A Mar 19, 1990 PART A [id number] WILLIS,LAVELLE AEL PATIENT MEDICARE (WNR) MEDICARE (M) PART A Mar 19, 1990 PART A [id number] WILLIS,LAVELLE AEL PATIENT MEDICARE (WNR) MEDICARE (M) PART A Mar 19, 1990 PART A [id number] WILLIS,LAVELLE AEL PATIENT MEDICARE (WNR) MEDICARE (M) PART A Mar 19, 1990 PART A [id number] [phone] WILLIS,LAVELLE AEL PATIENT Selected Encounter This section includes the information on record at [place] for the Encounter. Date/Time Encounter Type Encounter Description Reason Pro vider Source Dec 21, 2023 11:49 AM Outpatient Encounter ADMIN PAT ACTIVTIES (MASNONCT) IHE Encounter Template Text not used by [place] Plan of Treatment: Future Appointments (+ 6 [...] 20 appointments. The data comes from all [place] treatment facilities. Appointment Date/Time Appointment Type Appointme nt Facility Name Jan 13, 2024 03:00 PM AMBULATORY - MEDICINE [place] [facility] [place] [facility] Feb 04, 2024 08:00 AM AMBULATORY - MEDICINE [place] [facility] [place] [facility] February 17, 2024 12:00 PM AMBULATORY - MEDICINE [facility] [place] [facility] Mar 28, 2024 10:00 AM AMBULATORY - NONE [facility] [place] [facility] Mar 28, 2024 10:30 AM AMBULATORY - MEDICINE [place] [facility] [place] [facility] Mar 28, 2024 01:00 PM AMBULATORY - MEDICINE [place] [facility] [place] [facility] Apr 06, 2024 01:30 PM AMBULATORY - MEDICINE [place] [facility] [place] [facility] May 30, 2024 08:30 AM AMBULATORY - MEDICINE [place] [facility] [place] [facility] May 30, 2024 09:30 AM AMBULATORY - MEDICINE [place] [facility] [place] [facility] Jun 01, 2024 10:00 AM AMBULATORY - MEDICINE [place] [facility] [place] [facility] Jun 01, 2024 11:30 AM AMBULATORY - MEDICINE [place] [facility] [place] [facility] Lab Results: +/- 30 days of the encounter This section includes the Chemistry and Hematology Lab Results on record with [place] for the patient. Radiology Reports and Pathology Reports are provided separately, in subsequent sections. Lab Results This section contains the Chemistry/Hematology Results that were resulted 30 days before or 30 daysafter the date of the Encounter. Date/Time Source Result Type Result - Unit Interpretation Reference Range Comment Nov 27, 2023 08:43 AM [place] [facility] [place] [facility] LIPID PANEL FASTING Specimen Type: SERUM No comment entered. Ordering Provider: KIMBER MACK Report Released Date/Time: Jun 04, 2023 10:09 AM Reporting Lab: [place] [facility] [address] [address] [facility]: [facility] [address] [address] CHOLESTEROL 136 mg/dL TRIGLYCERIDE 119 mg/dL 0-150 LDL calculated 69 mg/dL 0-129 CHOL/HDL 3.2 HDL CHOLESTEROL 43 mg/dL 40-60 Nov 27, 2023 08:43 AM [facility] HEMOGLOBIN A1C PANEL Specimen Type: [...] Jun 04, 2023 10:09 AM Reporting Lab: [address] [address] Performing Lab: [address] [address] HEMOGLOBIN A1C 6.1 H 4.0-5.6 Nov 27, 2023 08:43 AM [facility] MICROALBUMIN CREATININE RATIO PANEL Specimen Type: URINE No comment entered. Ordering Provider: KIMBER MACK Report Released Date/Time: Jun 04, 2023 10:09 AM Reporting Lab: [address] [address] Performing Lab: [address] [address] MICROALBUMIN/C REATININE RATIO 5.7 mg/g 0-29.9 MICROALBUMIN,Q UANTITATIVE 0.6 mg/dL RR UNAVAIL CREATININE URINE 104.48 mg/dL Nov 27, 2023 08:43 AM [facility] BASIC METABOLIC PANEL (fasting) Specimen Type: SERUM No comment entered. Ordering Provider: KIMBER MACK Report Released Date/Time: Jun 04, 2023 10:09 AM Reporting Lab: [address] [address] Performing Lab: [address] [address] UREA NITROGEN 12 mg/dL 7-25 GLUCOSE 133 [...] and tobacco- related health factors from the [place] facility where the Encounter took place. Current Smoking Status This section includes the most current smoking, or tobacco-related health factor, from the [place] facility where the Encounter took place. Date/Time Current Smoking Status Comment [facility] Nov 27, 2023 11:00 AM VA-TOBACCO FORMER USER [place] [facility] [place] [facility] Tobacco Use History This section includes a history of the smoking, or tobacco-related health factors, that were collected on or before the date of the Encounter. The data comes from the [place] facility where the Encounter took place. Date/Time Smoking Status/Tobac co Use Comment Facility Nov 27, 2023 11:00 AM VA-TOBACCO QUIT 15 YRS OR MORE [place] [facility] [place] [facility] Dec 02, 2022 08:00 AM VA-TOBACCO FORMER USER [place] [facility] [place] [facility] Dec 02, 2022 08:00 AM VA-TOBACCO QUIT 15 YRS OR MORE [place] [facility] [place] [facility] Nov 05, 2021 10:30 AM VA-TOBACCO FORMER USER [place] [facility] [place] [facility] Nov 05, 2021 10:30 AM VA-TOBACCO QUIT 1 TO < 5 YRS [facility] [place] [facility] Sep 14, 2020 02:00 PM VA-TOBACCO FORMER USER [facility] [place] [facility] Sep 14, 2020 02:00 PM VA-TOBACCO QUIT 5 TO < 15 YRS [facility] [place] [facility] Jan 22, 2018 03:40 PM QUIT TOBACCO USE > 7 YEARS AGO [place] [facility] [place] [facility] Jun 04, 2016 02:01 PM CURRENT SMOKER been smoking pass 20 yrs [facility] Jun 04, 2016 02:01 PM V1-PT DECLINES REF TO TOBACCO CESS PRGM [facility] Jun 04, 2016 02:01 PM V1-PT THINKING ABOUT QUIT TOBACCO USE [facility] Jul 18, 2014 03:31 PM V1-PT DECLINES REF TO TOBACCO CESS PRGM [facility] Jul 18, 2014 03:31 PM V1-PT DECLINES TOBACCO CESSATION MEDS [facility] Jul 18, 2014 03:31 PM V1-PT NOT INTERESTED IN QUIT TOBACCO USE [facility] Jan 09, 2014 10:43 AM CURRENT SMOKER pt smokes 1 pk of cigarettes per day. [facility] Jan 09, 2014 10:43 AM V1-PT THINKING ABOUT QUIT TOBACCO USE [facility] Aug 28, 2003 10:47 AM CURRENT SMOKER one pack q 6 days - he has cut down from 3 PPD. He is in the process of quitting [facility] Radiology Reports: +/- 30 days [...] the Encounter. The data comes from all [facility] facilities. Date/Time Radiology Report Provider Source Dec 10, 2023 10:31 AM ULTRASOUND AAA SCREENING: CHAYA PEDRO [id number] -1955 M Exm Date: DEC 10, 2023@10:31 Req Phys: ELIZABET ROBINS Pat Loc: CWM/NO/PACT 5 (Req'g Loc) Img Loc: ULTRASOUND Service: Unknown (Case [id number] COMPLETE) ULTRASOUND AAA SCREENING (US Detailed) CPT:29268 Reason for Study: US Abdomen, AAA screen Clinical History: Report Status: Verified Date Reported: DEC 10, 2023 Date Verified: DEC 10, 2023 Commodity Merchant E-Sig:/ES/RAYMOND LEAL JR Report: Study: AAA screening [...] Primary Interpreting Staff: RAYMOND LEAL JR, Radiologist (Commodity Merchant) /RAYMOND SHELTON JR [facility] Encounter Notes: All associated encounter notes This section contains the clinical notes associated to the Encounter. Date/Time Encounter Note(s) Provider Source Dec 22, 2023 08:26 AM ADDENDUM: LOCAL TITLE: Addendum STANDARD TITLE: ADDENDUM DATE OF NOTE: DEC 22, 2023@08:26:39 ENTRY DATE: DEC 22, 2023@08:26:40 AUTHOR: MARCIA MAURER COSIGNER: URGENCY: STATUS: COMPLETED See previous alert. Dental added to this alert /gaetano/ Marcia Maurer RN Primary Care Staff Nurse Signed: 12/22/2023 08:26 Receipt Acknowledged By: 12/24/2023 09:25 /gaetano/ ATIF CHU DMD Staff Dentist 12/23/2023 11:40 /gaetano/ SOURAV DOSHI DENTAL DOWEL STICKER OPERATOR === --- Original Document --- 12/21/23 CCC: SCHEDULING ADMINISTRATION: Patient Demographics Patient Name: CHAYA PEDRO Patient Primary Phone: [phone] Patient Primary Address: [address] [place] [address] Patient : 1955 Patient Age: 68 Call Back Number: [phone] Caller/Recipient Relation to Patient: Self Administrative Administrative Note Reason: Other Administrative Note Comments: Patient is calling to notify their upper dentures broke and they have no upper teeth and only 5 bottom teeth. Patient states their old referral top [facility] has and they were told they need a new one. Patient stated this was an emergency and was offered triage which they accepted. Patient can be reached back at [phone]. /gaetano/ NAHEED COLLAZON1 [facility] AMSA Signed: 12/21/2023 11:50 Receipt Acknowledged By: 12/22/2023 08:41 /gaetano/ DEBBIE GORMAN, ELZBIETA, RN, CNL PRIMARY CARE TEAM NURSE 12/22/2023 08:27 /gaetano/ Marcia Maurer wharf laborer Staff Nurse MARCIA MAURER [facility] WSTRJavier [place] [facility] Dec 21, 2023 11:49 AM ADMINISTRATIVE NOTE: LOCAL TITLE: [facility]: SCHEDULING ADMINISTRATION STANDARD TITLE: ADMINISTRATIVE NOTE DATE OF NOTE: DEC 21, 2023@11:49:57 ENTRY DATE: DEC 21, 2023@11:49:57 AUTHOR: NAHEED MORRISSEY COSIGNER: URGENCY: STATUS: COMPLETED CCC: SCHEDULING ADMINISTRATION Has ADDENDA Patient Demographics Patient Name: CHAYA PEDRO Patient Primary Phone: [phone] Patient Primary Address: [address] [place] [address] Patient : 1955 Patient Age: 68 Call Back Number: [phone] Caller/Recipient Relation to Patient: Self Administrative Administrative Note Reason: Other Administrative Note Comments: Patient is calling to notify their upper dentures broke and they have no upper teeth and only 5 bottom teeth. Patient states their old referral [facility] has and they were told they need a new one. Patient stated this was an emergency and was offered triage which they accepted. Patient can be reached back at [phone]. /gaetano/ NAHEED COLLAZON1 [facility] Signed: 12/21/2023 11:50 Receipt Acknowledged By: 12/22/2023 08:41 /ELZBIETA Antunez, RN, CNL PRIMARY CARE TEAM NURSE 12/22/2023 08:27 /jerry Maurer, wharf laborer Staff Nurse 12/22/2023 ADDENDUM STATUS: COMPLETED See previous alert. Dental added to this alert /es/ Marcia Maurer, wharf laborer Staff Nurse Signed: 12/22/2023 08:26 Receipt Acknowledged By: * AWAITING SIGNATURE * ATIF CHU * AWAITING SIGNATURE * SOURAV DOSHI DANIEL R [facility]
--- OUTSIDE RECORDS SUMMARY | 2024-11-01 07:58 | XMS_ITS | Encounter Summary ---
Author Name [facility] [facility] [place] Address [address] [place] [address] Care Team Providers Care Reinforcing Rod Layer Name Role Phone ELIZABET ROBINS Primary Care [...] Name Patient's Relationship to Policy Paul [facility] CE ORGANIZ [facility] AC Apr 18, 2018 [id number] [phone] WILLIS,MAR JUDITH SPOUSE [place] [facility] CE ORGANIZ BRENDA [facility] Apr 18, 2018 [id number] [phone] WILLIS,MAR JUDITH SPOUSE BCBS [facility] CE ORGANIZ [facility] SHARE ACTIV E Apr 18, 2018 [id number] [phone] WILLIS,MAR JUDITH SPOUSE BCBS OF [facility] CE ORGANIZ [facility] Apr 18, 2018 [id number] WILLIS,MAR JUDITH PATIENT BCBS OF [facility] CE ORGANIZ BRENDA [facility] Apr 18, 2018 [id number] WILLIS,MAR JUDITH SPOUSE [place] OF [place] PREFERRED PROVIDER ORGANIZAT ION (PPO) BRENDA [facility] AC Apr 18, 2018 [id number] [phone] WILLIS,MAR JUDITH SPOUSE BCBS OF [facility] CE ORGANIZ BRENDA MCCABE [facility] ACT Apr 18, 2018 [id number] WILLIS,MAR JUDITH SPOUSE BCBS OF [facility] CE ORGANIZ BRENDA MCC[facility] AC Apr 18, 2018 [id number] [phone] WILLIS,MAR JUDITH SPOUSE [place] PRESCRIPT ION RX22M B Oct 19, 2022 RX22MB [phone] WILLIS,MAR JUDITH SPOUSE [place] PRESCRIPT ION RX22M A Oct 19, 2022 RX22MA [id number] WILLIS,LAVELLE AEL PATIENT [place] PRESCRIPT ION RX22M B Oct 19, 2022 RX22MB [id number] WILLIS,LAVELLE AEL PATIENT [place] PRESCRIPT ION BRENDA MCCABE [facility] AC Oct 19, 2022 RX22MB [id number] [phone] WILLIS,LAVELLE AEL SPOUSE [place] PRESCRIPT [place] OF [place] Oct 19, 2022 RX22MA [id number] [phone] WILLIS, SPOUSE [place] PRESCRIPT ION RX Oct 19, 2022 RX22MB [id number] [phone] WILLIS,MAR JUDITH SPOUSE [place] ([id number]) PRESCRIPT I[place] Oct 19, 2022 RX22MB [id number] [phone] WILLIS,MAR JUDITH SPOUSE [place] BCBS ([facility] CE ORGANIZ BRENDA MCCABE [facility] AC Apr 18, 2018 [id number] [phone] WILLIS,EDILBERTO SOTELOZA SPOUSE [employer] PRESCRIPT [place] 2018 L4TA [id number] WILLIS,EDILBERTO SOTELOZA SPOUSE [employer] ([id number]) PRESCRIPT ION Apr 18, 2018 L4TA [id number] WILLIS,EDILBERTO SOTELOZA SPOUSE [employer] ([id number]) PRESCRIPT ION L4TA* Apr 18, 2020 L4TA [id number] [id number] WILLISEDILBERTOA SPOUSE [employer] ([id number]) PRESCRIPT ION L4TA Apr 18, 2018 L4TA [id number] WILLIS,EDILBERTO WONG SPOUSE [employer] ([id number]) PRESCRIPT ION L4TA* Apr 18, 2018 L4TA [id number] WILLIS,EDILBERTO PALAFOXA SPOUSE [employer] ([id number]) PRESCRIPT ION Apr 18, 2018 L4TA [id number] WILLISEDILBERTO SPOUSE [employer] ([id number]) PRESCRIPT ION Apr 18, 2018 L4TA [id number] WILLISEDILBERTO SPOUSE [employer]-MINOR BROGATION PRESCRIPT ION [place] OF [place] Apr 18, 2020 L4TA [id number] WILLIS,EDILBERTO WONG SPOUSE [place] [facility] CE ORGANIZAT ION W/OUT OF NETWORK BENEFITS [facility] RSD ACT Apr 18, 2018 [id number] [phone] WILLISEDILBERTO SPOUSE [place] BCBS [facility] (BLUECARD) [facility] CE ORGANIZAT ION [facility] RSD AC Apr 18, 2018 [id number] EDILBERTO PEDRO SPOUSE MEDICARE (WNR) MEDICARE (M) PART A Mar 19, 1990 PART A [id number] WILLISLAVELLE AEL PATIENT MEDICARE (WNR) MEDICARE (M) PART A Mar 19, 1990 PART A [id number] [phone] WILLIS,LAVELLE AEL PATIENT MEDICARE (WNR) MEDICARE (M) PART A Mar 19, 1990 PART A [id number] WILLIS,LAVELLE AEL PATIENT MEDICARE (WNR) MEDICARE (M) PART A Mar 19, 1990 PART A [id number] [phone] WILLIS,LAVELLE AEL PATIENT MEDICARE (WNR) MEDICARE (M) PART A Mar 19, 1990 PART A [id number] [phone] WILLIS,LAVELLE AEL PATIENT MEDICARE (WNR) MEDICARE (M) PART A Mar 19, 1990 PART A [id number] WILLIS,LAVELLE AEL PATIENT MEDICARE (WNR) MEDICARE (M) PART A Mar 19, 1990 PART A [id number] WILLIS,LAVELLE AEL PATIENT MEDICARE (WNR) MEDICARE (M) PART A Mar 19, 1990 PART A [id number] WILLIS,LAVELLE AEL PATIENT MEDICARE (WNR) MEDICARE (M) PART A Mar 19, 1990 PART A [id number] WILLIS,LAVELLE AEL PATIENT MEDICARE (WNR) MEDICARE (M) PART A Mar 19, 1990 PART A [id number] WILLIS,LAVELLE AEL PATIENT MEDICARE (WNR) MEDICARE (M) PART A Mar 19, 1990 PART A [id number] [phone] WILLIS,LAVELLE AEL PATIENT Selected Encounter This section includes the information on record at [place] for the Encounter. Date/Time Encounter Type Encounter Description Reason Pro vider Source Feb 16, 2024 12:00 AM Outpatient Encounter COMMUNITY CARE CONSULT IHE Encounter Template Text not used by [place] Plan of Treatment: Future Appointments (+ 6 [...] Date/Time Appointment Type Appointme nt Facility Name February 17, 2024 12:00 PM AMBULATORY - MEDICINE [facility] [place] [facility] Mar 28, 2024 10:00 AM AMBULATORY - NONE [facility] [place] [facility] Mar 28, 2024 10:30 AM AMBULATORY - MEDICINE [facility] [place] [facility] Mar 28, 2024 01:00 PM AMBULATORY - MEDICINE [facility] [place] [facility] Apr 06, 2024 01:30 PM AMBULATORY - MEDICINE [facility] [place] [facility] May 30, 2024 08:30 AM AMBULATORY - MEDICINE [facility] [place] [facility] May 30, 2024 09:30 AM AMBULATORY - MEDICINE [facility] [place] [facility] Jun 01, 2024 10:00 AM AMBULATORY - MEDICINE [facility] [place] [facility] Jun 01, 2024 11:30 AM AMBULATORY - MEDICINE [facility] [place] [facility] Jun 28, 2024 11:30 AM AMBULATORY - MEDICINE [facility] [place] [facility] Jul 08, 2024 10:30 AM AMBULATORY - MEDICINE [facility] [place] [facility] Jul 13, 2024 09:30 AM AMBULATORY - MEDICINE [facility] [place] [facility] Aug 12, 2024 09:30 AM AMBULATORY - MEDICINE [facility] [place] [facility] Lab Results: +/- 30 days of [...] Result - Unit Interpretation Reference Range Comment Feb 16, 2024 09:27 AM [facility] [place] [facility] HEMOGLOBIN A1C PANEL Specimen Type: BLOOD Comment: Values obtained from A1C measurements can vary. For atypical A1C assays, a reported value of 7.0 could actually be between 6.72 and 7.28 if measured by a reference method. A reported value of 9.0 could actually be between 8.73 and 9.27. Ref: [email or web address] [email or web address]/CAPdata. asp Ordering Provider: KIMBER MACK Report Released Date/Time: Dec 10, 2023 06:17 PM Reporting Lab: [address] [address] Performing Lab: [address] [address] HEMOGLOBIN A1C 6.2 H 4.0-5.6 Feb 16, 2024 09:27 AM [facility] BASIC METABOLIC PANEL (non-fasting) Specimen Type: SERUM No comment entered. Ordering Provider: KIMBER MACK Report Released Date/Time: Dec 10, 2023 06:17 PM Reporting Lab: [address] [address] Performing Lab: [address] [address] UREA NITROGEN 11 mg/dL 7-25 GLUCOSE 112 mg/dL H 65-100 SODIUM 141 mmol/L 135-145 POTASSIUM 4.1 mmol/L 3.5-5.0 CHLORIDE 107 mmol/L 100-110 CO2 20 meq/L 20-30 CREATININE, Serum 0.85 mg/dL 0.50-1.40 eGFR(CKD-EPI 2020) >90 mL/min >60 [...] AM VA-TOBACCO QUIT 15 YRS OR MORE [facility] Tobacco Use History This section includes a history of the smoking, or tobacco-related health factors, that were collected on or before the date of the Encounter. The data comes from the [place] facility where the Encounter took place. Date/Time Smoking Status/Tobac co Use Comment Facility Nov 27, 2023 11:00 AM VA-TOBACCO QUIT 15 YRS OR MORE [facility] [place] [facility] Dec 02, 2022 08:00 AM VA-TOBACCO FORMER USER [facility] [place] [facility] Dec 02, 2022 08:00 AM VA-TOBACCO QUIT 15 YRS OR MORE [facility] [place] [facility] Nov 05, 2021 10:30 AM VA-TOBACCO [facility] [place] [facility] Nov 05, 2021 10:30 AM VA-TOBACCO QUIT 1 TO < 5 YRS [facility] [place] [facility] Sep 14, 2020 02:00 PM VA-TOBACCO FORMER USER [facility] [place] [facility] Sep 14, 2020 02:00 PM VA-TOBACCO QUIT 5 TO < 15 YRS [facility] [place] [facility] Jan 22, 2018 03:40 PM QUIT TOBACCO USE > 7 YEARS AGO [facility] [place] [facility] Jun 04, 2016 02:01 PM CURRENT SMOKER been smoking pass 20 yrs [facility] [place] [facility] Jun 04, 2016 02:01 PM V1-PT DECLINES REF [facility] Jun 04, 2016 02:01 PM V1-PT THINKING ABOUT QUIT TOBACCO USE [facility] [place] [facility] Jul 18, 2014 03:31 PM V1-PT DECLINES REF TO TOBACCO CESS PRGM [facility] Jul 18, 2014 03:31 PM V1-PT DECLINES TOBACCO CESSATION MEDS [facility] Jul 18, 2014 03:31 PM V1-PT NOT INTERESTED IN QUIT TOBACCO USE [facility] [place] [facility] Jan 09, 2014 10:43 AM CURRENT SMOKER pt smokes 1 pk of cigarettes per day. [facility] [place] [facility] Jan 09, 2014 10:43 AM V1-PT THINKING ABOUT QUIT TOBACCO USE [facility] [place] [facility] Aug 28, 2003 10:47 AM CURRENT SMOKER one pack q 6 days - he has cut down from 3 PPD. He is in the process of quitting [facility] Encounter Notes: All associated encounter notes This section contains the clinical notes associated to the Encounter. Date/Time Encounter Note(s) Provider Source Feb 16, 2024 12:00 AM NONVA CONSULT: LOCAL TITLE: COMMUNITY CARE-CONSULT RESULT NOTE STANDARD TITLE: NONVA CONSULT DATE OF NOTE: FEB 16, 2024 ENTRY DATE: FEBRUARY 18, 2024@10:17:34 AUTHOR: ANITA KILGORE EXP COSIGNER: URGENCY: STATUS: COMPLETED VistA Imaging - Scanned Document SCANNED DOCUMENT SIGNATURE NOT REQUIRED Electronically Filed: 02/18/2024 by: ANITA GUILLAUME [facility]
--- OUTSIDE RECORDS SUMMARY | 2024-11-01 07:58 | XMS_ITS | Encounter Summary ---
Author Name [facility] [place] Address [address] [place] [address] Care Team Providers Care Rate Engineer Name Role Phone ELIZABET ROBINS Primary Care [...] Paul's Name Patient's Relationship to Policy Paul [facility] CE ORGANIZ [facility] AC Apr 18, 2018 [id number] WILLIS,MAR JUDITH SPOUSE ANTHE[place] OF [place] ([place]ARD) [facility] CE ORGANIZ BRENDA [facility] Apr 18, 2018 [id number] WILLIS,MAR JUDITH SPOUSE BCBS [facility] CE ORGANIZ [facility] SHARE ACTIV E Apr 18, 2018 [id number] [phone] WILLIS,MAR JUDITH SPOUSE BCBS OF [facility] CE ORGANIZ [facility] Apr 18, 2018 [id number] WILLIS,MAR JUDITH PATIENT BCBS OF [facility] CE ORGANIZ BRENDA MCCABE [facility] Apr 18, 2018 [id number] WILLIS,MAR JUDITH SPOUSE BC[place] OF [place] PREFERRED PROVIDER ORGANIZAT ION (PPO) BRENDA MCCABE [facility] AC Apr 18, 2018 [id number] WILLIS,MAR JUDITH SPOUSE BCBS OF [facility] CE ORGANIZ BRENDA MCCABE [facility] ACT Apr 18, 2018 [id number] WILLIS,MAR JUDITH SPOUSE BCBS OF [facility] CE ORGANIZ BRENDA MCCABE [facility] AC Apr 18, 2018 [id number] [phone] WILLIS,MAR JUDITH SPOUSE [place] PRESCRIPT ION RX22M A Oct 19, 2022 RX22MA [id number] WILLIS,LAVELLE AEL PATIENT [place] PRESCRIPT ION RX22M B Oct 19, 2022 RX22MB [id number] WILLIS,LAVELLE AEL PATIENT [place] PRESCRIPT ION BRENDA MCCABE [facility] AC Oct 19, 2022 RX22MB [id number] [phone] WILLIS,LAVELLE AEL SPOUSE [place] PRESCRIPT ION [place] OF [place] Oct 19, 2022 RX22MA [id number] WILLIS, SPOUSE CAREMARK PRESCRIPT ION RX22M B Oct 19, 2022 RX22MB [id number] [phone] WILLIS,MAR JUDITH SPOUSE [place] PRESCRIPT ION RX Oct 19, 2022 RX22MB [id number] [phone] WILLIS,MAR JUDITH SPOUSE [place] ([id number]) PRESCRIPT ION [place] Oct 19, 2022 RX22MB [id number] WILLIS,MAR JUDITH SPOUSE [place] BC[place] ([facility] CE ORGANIZ BRENDA MCCABE [facility] AC Apr 18, 2018 [id number] WILLIS,EDILBERTO SOTELOZA SPOUSE [employer] PRESCRIPT I[place] 2018 L4TA [id number] WILLIS,EDILBERTO WONG SPOUSE [employer] ([id number]) PRESCRIPT ION Apr 18, 2018 L4TA [id number] WILLIS,EDILBERTO WONG SPOUSE [employer] ([id number]) PRESCRIPT ION L4TA* Apr 18, 2020 L4TA [id number] WILLISEDILBERTOA SPOUSE [employer] ([id number]) PRESCRIPT ION L4TA* Apr 18, 2018 L4TA [id number] WILLIS,EDILBERTO BROOKS SPOUSE [employer] ([id number]) PRESCRIPT ION L4TA Apr 18, 2018 L4TA [id number] WILLIS,EDILBERTO WONG SPOUSE [employer] ([id number]) PRESCRIPT ION Apr 18, 2018 L4TA [id number] 32 WILLISEDILBERTO SPOUSE [employer] ([id number]) PRESCRIPT ION Apr 18, 2018 L4TA [id number] WILLIS,EDILBERTO WONG SPOUSE [employer]-MINOR BROGATION PRESCRIPT ION [place] OF [place] Apr 18, 2020 L4TA [id number] WILLISEDILBERTO SPOUSE [facility] CE ORGANIZAT ION W/OUT OF NETWORK BENEFITS [facility] ACT Apr 18, 2018 [id number] EDILBERTO PEDRO SPOUSE [place] BCBS [facility] (BLUECAR) [facility] CE ORGANIZAT ION [facility] AC Apr 18, 2018 [id number] EDILBERTO PEDRO SPOUSE MEDICARE (WNR) MEDICARE (M) PART A Mar 19, 1990 PART A [id number] WILLISLAVELLE FERGUSONL PATIENT MEDICARE (WNR) MEDICARE (M) PART A Mar 19, 1990 PART A [id number] WILLIS,LAVELLE AEL PATIENT MEDICARE (WNR) MEDICARE (M) PART A Mar 19, 1990 PART A [id number] WILLIS,LAVELLE AEL PATIENT MEDICARE (WNR) MEDICARE (M) PART A Mar 19, 1990 PART A [id number] [phone] WILLIS,LAVELLE AEL PATIENT MEDICARE (WNR) MEDICARE (M) PART A Mar 19, 1990 PART A [id number] [phone] WILLIS,LAVELLE AEL PATIENT MEDICARE (WNR) MEDICARE (M) PART A Mar 19, 1990 PART A [id number] WILLIS,LAVELLE AEL PATIENT MEDICARE (WNR) MEDICARE (M) PART A Mar 19, 1990 PART A [id number] WILLIS,LAVELLE AEL PATIENT MEDICARE (WNR) MEDICARE (M) PART A Mar 19, 1990 PART A [id number] WILLIS,LAVELLE AEL PATIENT MEDICARE (WNR) MEDICARE (M) PART A Mar 19, 1990 PART A [id number] WILLIS,LAVELLE AEL PATIENT MEDICARE (WNR) MEDICARE (M) PART A Mar 19, 1990 PART A [id number] [id number] WILLIS,LAVELLE AEL PATIENT MEDICARE (WNR) MEDICARE (M) PART A Mar 19, 1990 PART A [id number] WILLIS,LAVELLE AEL PATIENT Selected Encounter This section includes the information on record at [place] for the Encounter. Date/Time Encounter Type Encounter Description Reason Pro vider Source Jan 13, 2024 09:28 AM Outpatient Encounter TELEPHONE TRIAGE IHE Encounter Template Text not used by [...] Date/Time Appointment Type Appointme nt Facility Name Feb 04, 2024 08:00 AM AMBULATORY - MEDICINE [facility] [place] [facility] February 17, 2024 12:00 PM AMBULATORY [facility] MEDICINE [facility] [place] [facility] Mar 28, 2024 10:00 AM AMBULATORY - NONE [facility] [place] [facility] Mar 28, 2024 10:30 AM AMBULATORY - MEDICINE [facility] [place] [facility] Mar 28, 2024 01:00 PM AMBULATORY - MEDICINE [facility] [place] [facility] Apr 06, 2024 01:30 PM AMBULATORY - MEDICINE [facility] [place] [facility] May 30, 2024 08:30 AM AMBULATORY - MEDICINE [facility] [place] [facility] May 30, 2024 09:30 AM AMBULATORY - MEDICINE [facility] [place] [facility] Jun 01, 2024 10:00 AM AMBULATORY - MEDICINE [facility] [place] [facility] Jun 01, 2024 11:30 AM AMBULATORY - MEDICINE [facility] [place] [facility] Jun 28, 2024 11:30 AM AMBULATORY - MEDICINE [facility] [place] [facility] Jul 08, 2024 10:30 AM AMBULATORY - MEDICINE [facility] [place] [facility] Jul 13, 2024 09:30 AM AMBULATORY - MEDICINE [place] [facility] [place] [facility] Social History: Smoking Status (Most current) and [...] shannon Nov 27, 2023 11:00 AM VA-TOBACCO FORMER USER [place] [facility] [place] [facility] Tobacco Use History This section includes a history of the smoking, or tobacco-related health factors, that were collected on or before the date of the Encounter. The data comes from the [place] facility where the Encounter took place. Date/Time Smoking Status/Tobac co Use Comment Facility Nov 27, 2023 11:00 AM VA-TOBACCO QUIT 15 YRS OR [facility] Dec 02, 2022 08:00 AM [facility] Dec 02, 2022 08:00 AM VA-TOBACCO QUIT 15 YRS OR MORE [facility] Nov 05, 2021 10:30 AM VA-TOBACCO FORMER USER [facility] Nov 05, 2021 10:30 AM [place]-TOBACCO QUIT 1 TO < 5 YRS [facility] Sep 14, 2020 02:00 PM VA-TOBACCO FORMER USER [facility] Sep 14, 2020 02:00 PM VA-TOBACCO QUIT 5 TO < 15 YRS [facility] Jan 22, 2018 03:40 PM QUIT TOBACCO USE > 7 YEARS AGO [facility] Jun 04, 2016 02:01 PM CURRENT SMOKER been smoking pass 20 yrs [facility] Jun 04, 2016 02:01 PM V1-PT DECLINES REF TO TOBACCO CESS PR[facility] Jun 04, 2016 02:01 PM V1-PT THINKING ABOUT QUIT TOBACCO USE [facility] Jul 18, 2014 03:31 PM V1-PT DECLINES REF TO TOBACCO CESS PRGM [facility] Jul 18, 2014 03:31 PM V1-PT DECLINES TOBACCO CESSATION MEDS [facility] Jul 18, 2014 03:31 PM V1-PT NOT INTERESTED IN QUIT TOBACCO USE [facility] Jan 09, 2014 10:43 AM CURRENT SMOKER pt smokes 1 pk of cigarettes per day. [facility] Jan 09, 2014 10:43 AM V1-PT THINKING ABOUT QUIT TOBACCO USE [facility] Aug 28, 2003 10:47 AM CURRENT SMOKER one pack q 6 days - he has cut down from 3 PPD. He is in the process of quitting [facility] [place] [facility] Encounter Notes: All associated encounter notes This section contains the clinical notes associated to the Encounter. Date/Time Encounter Note(s) Provider Source Jan 13, 2024 09:28 AM RN PROGRESS NOTE: LOCAL TITLE: CCC: CLINICAL TRIAGE STANDARD TITLE: RN PROGRESS NOTE DATE OF NOTE: JAN 13, 2024@09:28:21 ENTRY DATE: JAN 13, 2024@09:28:21 AUTHOR: JORGE A SALINAS EXP COSIGNER: URGENCY: STATUS: COMPLETED CCC: CLINICAL TRIAGE Has ADDENDA Patient Demographics Patient Name: CHAYA PEDRO Patient Primary Address: [address] [place] [id number] Patient Primary Phone: [phone] Patient : 1955 Patient Age: 68 Caller/Recipient Relation to Patient: Caregiver Caller Name: - Katie Emergency Contact: KATIE PEDRO Triage Summary Nurse's Recommendation / WHEN: Within 24 Hours Nurse's Recommendation / WHERE: Appointment Patient Disposition Patient/Caregiver agrees to plan of care: Yes Nursing Plan and Disposition Referred Patient for In-Person Appt Transferred patient to facility [facility] Other course(s) of action Generated msg to PACT/Provider Provided guidance for worsening symptoms: *Caller/Patient* advised to call facilities [facility] or seek immediate medical attention for new or worsening symptoms Nurse Summary Nurse Summary: and calling in on speaker Reporting vision in left eye is gradually worsening wo any significant changes otherwise since he was last seen in eye clinic or PC They denies any fevers, chills, N/V, dizziness, headaches or any other symptoms reports did have ''kidney stones blasted'' about 2 weeks ago and has been fine since He reports vision left eye is becoming more blurry in general and he has some mild eye discomfort Endorses intermittent flashes of light wo flaoters thinks around his eye has mild swelling They deny any drainage or redness Right eye is completely fine R Collaborated with eye clinic to assess for appointment in 24h They will be able to schedule him in for enzo at the eye clinic today/They will call to schedule Clinical Contact Center Codes Clinic/Location: V1 CWM PHONE [facility] RN /es/ JORGE A SALINAS [id number] Signed: 01/13/2024 09:28 Receipt Acknowledged By: 01/13/2024 11:23 /es/ [facility] DIRECTOR 01/13/2024 09:44 /es/ DEBBIE GORMAN, MSN, RN, CNL PRIMARY CARE TEAM NURSE 01/13/2024 10:06 /es/ Marcia Maurer cloth tearer Staff Nurse 01/13/2024 ADDENDUM STATUS: COMPLETED has an appointment with , today, 01/12@15:00 /gaetano/ DEBBIE GORMAN, MSN, RN, CNL PRIMARY CARE TEAM NURSE Signed: 01/13/2024 09:44 01/13/2024 ADDENDUM STATUS: COMPLETED Addendum: Phone Triage 13 Jan 2024 14:09:03 +0000 [facility] Demographics 68 y/o Male Results CC: Blurred Vision Nurse selected: Within 24 Hours Nurse selected follow-up location: Clinic Software suggested: Within 24 Hours Software suggested follow-up location: Clinic, consider virtual care Values and Measures Duration of CC: 3 Months Positive Responses HPI: blurry vision HPI: eye pain, duration longer than 1 day HPI: eye pain, unilateral Negative Responses Denies: HPI: arc welding exposure, within past 24 hours Denies: HPI: corneal opacification Denies: HPI: eye discharge, exudative Denies: HPI: eye injury Denies: HPI: eye pain, moderate to severe Denies: HPI: eye pain, severe Denies: HPI: eye pain, worsens with eye movements Denies: HPI: eye redness Denies: HPI: foreign body sensation, eye Denies: HPI: headache, moderate to severe Denies: HPI: loss of vision, unilateral, new Denies: HPI: periorbital erythema Denies: HPI: photophobia, unilateral Denies: PMH: color blind Denies: PMH: multiple sclerosis /gaetano/ JORGE A SALINAS [id number] Signed: 01/13/2024 10:12 JORGE A SALINAS CNTRL W[facility]N [facility]
--- OUTSIDE RECORDS SUMMARY | 2024-11-01 07:58 | XMS_ITS | Encounter Summary ---
Author Name [facility] [place] Address [address] [place] [address] Care Team Providers Care Extract Puller Name Role Phone ELIZABET ROBINS Primary Care [...] Name Patient's Relationship to Policy Paul [facility] CE ORGANIZ [facility] AC Apr 18, 2018 [id number] [phone] WILLIS,MAR JUDITH SPOUSE ANTHE[place] OF [place] ([place]ARD) [facility] CE ORGANIZ BRENDA [facility] Apr 18, 2018 [id number] [phone] WILLIS,MAR JUDITH SPOUSE BCBS [facility] CE ORGANIZ [facility] SHARE ACTIV E Apr 18, 2018 [id number] WILLIS,MAR JUDITH SPOUSE BCBS OF [facility] CE ORGANIZ [facility] Apr 18, 2018 [id number] WILLIS,MAR JUDITH PATIENT BCBS OF [facility] CE ORGANIZ BRENDA [facility] Apr 18, 2018 [id number] WILLIS,MAR JUDITH SPOUSE [place] OF [place] PREFERRED PROVIDER ORGANIZAT ION (PPO) BRENDA MCC[facility]E [facility] AC Apr 18, 2018 [id number] [phone] WILLIS,MAR JUDITH SPOUSE BCBS OF [facility] CE ORGANIZ BRENDA MCC[facility]E [facility] ACT Apr 18, 2018 [id number] WILLIS,MAR JUDITH SPOUSE BCBS OF [facility] CE ORGANIZ BRENDA MCC[facility]E [facility] AC Apr 18, 2018 [id number] [phone] WILLIS,MAR JUDITH SPOUSE [place] PRESCRIPT ION BRENDA MCCABE [facility] AC Oct 19, 2022 RX22MB [id number] [phone] WILLIS,LAVELLE AEL SPOUSE [place] PRESCRIPT ION RX22M A Oct 19, 2022 RX22MA [id number] WILLIS,LAVELLE AEL PATIENT [place] PRESCRIPT ION RX22M B Oct 19, 2022 RX22MB [id number] WILLIS,LAVELLE AEL PATIENT [place] PRESCRIPT ION [place] OF [place] Oct 19, 2022 RX22MA [id number] WILLIS, SPOUSE CAREMARK PRESCRIPT ION RX22M B Oct 19, 2022 RX22MB [id number] [phone] WILLIS,MAR JUDITH SPOUSE [place] PRESCRIPT ION RX Oct 19, 2022 RX22MB [id number] [phone] WILLIS,MAR JUDITH SPOUSE [place] ([id number]) PRESCRIPT ION [place] OF [place] Oct 19, 2022 RX22MB [id number] WILLIS,MAR JUDITH SPOUSE [place] BC[place] ([facility] CE ORGANIZ BRENDA MCCABE [facility] AC Apr 18, 2018 [id number] WILLIS,EDILBERTO SOTELOZA SPOUSE [employer] [place] PRESCRIPT I[place] 2018 L4TA [id number] WILLIS,EDILBERTO WONG SPOUSE [employer] ([id number]) PRESCRIPT ION Apr 18, 2018 L4TA [id number] WILLIS,EDILBERTO WONG SPOUSE [employer] ([id number]) PRESCRIPT ION L4TA* Apr 18, 2020 L4TA [id number] WILLISEDILBERTOA SPOUSE EXPRESS S[employer]IPTS ([id number]) PRESCRIPT ION L4TA* Apr 18, 2018 L4TA [id number] WILLIS,EDILBERTO BROOKS SPOUSE EXPRESS SCRIPTS ([id number]) PRESCRIPT ION L4TA Apr 18, 2018 L4TA [id number] WILLIS,EDILBERTO WONG SPOUSE [employer] ([id number]) PRESCRIPT ION Apr 18, 2018 L4TA [id number] WILLISEDILBERTO SPOUSE [employer] ([id number]) PRESCRIPT ION Apr 18, 2018 L4TA [id number] WILLISEDILBERTO SPOUSE [employer]-MINOR BROGATION PRESCRIPT ION [place] OF [place] Apr 18, 2020 L4TA [id number] WILLISEDILBERTO SPOUSE [facility] ([facility]) [facility] CE ORGANIZAT ION W/OUT OF NETWORK BENEFITS [facility] ACT Apr 18, 2018 [id number] EDILBERTO PEDRO SPOUSE [place] BCBS [facility] (BLUECAR) [facility] CE ORGANIZAT ION [facility] Apr 18, 2018 [id number] EDILBERTO PEDRO SPOUSE MEDICARE (WNR) MEDICARE (M) PART A Mar 19, 1990 PART A [id number] WILLISLAVELLE AEL PATIENT MEDICARE (WNR) MEDICARE (M) PART A Mar 19, 1990 PART A [id number] [phone] WILLIS,LAVELLE AEL PATIENT MEDICARE (WNR) MEDICARE (M) PART A Mar 19, 1990 PART A [id number] [phone] WILLSI,LAVELLE AEL PATIENT MEDICARE (WNR) MEDICARE (M) PART A Mar 19, 1990 PART A [id number] WILLIS,LAVELLE AEL PATIENT MEDICARE (WNR) MEDICARE (M) PART A Mar 19, 1990 PART A [id number] WILLIS,LAVELLE AEL PATIENT MEDICARE (WNR) MEDICARE (M) PART A Mar 19, 1990 PART A [id number] WILLIS,LAVELLE AEL PATIENT MEDICARE (WNR) MEDICARE (M) PART A Mar 19, 1990 PART A [id number] [phone] WILLIS,LAVELLE AEL PATIENT MEDICARE (WNR) MEDICARE (M) PART A Mar 19, 1990 PART A [id number] [phone] WILLIS,LAVELLE AEL PATIENT MEDICARE (WNR) MEDICARE (M) PART A Mar 19, 1990 PART A [id number] WILLIS,LAVELLE AEL PATIENT MEDICARE (WNR) MEDICARE (M) PART A Mar 19, 1990 PART A [id number] WILLIS,LAVELLE AEL PATIENT MEDICARE (WNR) MEDICARE (M) PART A Mar 19, 1990 PART A [id number] WILLIS,LAVELLE AEL PATIENT Selected Encounter This section includes the information on record at [place] for the Encounter. Date/Time Encounter Type Encounter Description Reason Pro vider Source Jan 13, 2024 09:03 AM Outpatient Encounter OPTOMETRY IHE Encounter Template Text not used by [place] Plan of Treatment: Future Appointments (+ 6 [...] 20 appointments. The data comes from all [place] treatment facilities. Appointment Date/Time Appointment Type Appointme nt Facility Name Feb 04, 2024 08:00 AM [facility]UL[facility]ORY [facility] MEDICINE [facility] [place] [facility] February 17, 2024 12:00 PM AMBULATORY [facility] MEDICINE [facility] [place] [facility] Mar 28, 2024 10:00 AM AMBULATORY - NONE [facility] [place] [facility] Mar 28, 2024 10:30 AM AMBULATORY - MEDICINE [facility] [place] [facility] Mar 28, 2024 01:00 PM AMBULATORY - MEDICINE [facility] [place] [facility] Apr 06, 2024 01:30 PM AMBULATORY - MEDICINE [facility] [place] [facility] May 30, 2024 08:30 AM AMBULATORY - MEDICINE [facility] [place] [facility] May 30, 2024 09:30 AM AMBULATORY - MEDICINE [facility] [place] [facility] Jun 01, 2024 10:00 AM AMBULATORY - MEDICINE [facility] [place] [facility] Jun 01, 2024 11:30 AM AMBULATORY - MEDICINE [facility] [place] [facility] Jun 28, 2024 11:30 AM AMBULATORY - MEDICINE [facility] [place] [facility] Jul 08, 2024 10:30 AM [facility]BULATORY - MEDICINE [facility] [place] [facility] Jul 13, 2024 09:30 AM AMBULATORY - MEDICINE [place] [facility] [place] [facility] Social History: Smoking Status (Most current) and Tobacco Use (All prior to encounter date) This section includes the most current, and the historical, smoking and tobacco- related health factors from the [place] facility where the Encounter took place. Current Smoking Status This section includes the most current smoking, or tobacco-related health factor, from the [place] facility where the Encounter took place. Date/Time Current Smoking Status Comment Enrique shannon Nov 27, 2023 11:00 AM VA-TOBACCO FORMER USER [place] [facility] [place] [facility] Tobacco Use History This section includes a history of the smoking, or tobacco-related health factors, that were collected on or before the date of the Encounter. The data comes from the [place] facility where the Encounter took place. Date/Time Smoking Status/Tobac co Use Comment Facility Nov 27, 2023 11:00 AM [facility]-TOBACCO [facility] YRS [facility] Dec 02, 2022 08:00 AM [facility] Dec 02, 2022 08:00 AM VA-TOBACCO QUIT 15 YRS OR MORE [facility] Nov 05, 2021 10:30 AM [facility]AC[facility] Nov 05, 2021 10:30 AM [place]-TOBACCO QUIT 1 TO < 5 YRS [facility] Sep 14, 2020 02:00 PM [facility]ACCO [facility] Sep 14, 2020 02:00 PM VA-TOBACCO QUIT 5 TO < 15 YRS [facility] Jan 22, 2018 03:40 PM QUIT TOBACCO USE > 7 YEARS AGO [facility] Jun 04, 2016 02:01 PM CURRENT SMOKER been smoking pass 20 yrs [facility] Jun 04, 2016 02:01 PM V1-PT DECLINES REF TO TOBACCO CESS PRGM [facility] Jun 04, 2016 02:01 PM V1-PT THINKING ABOUT QUIT TOBACCO USE [facility] Jul 18, 2014 03:31 PM V1-PT DECLINES REF TO TOBACCO CESS PRGM [facility] Jul 18, 2014 03:31 PM V1-PT DECLINES TOBACCO CESSATION MEDS [facility] Jul 18, 2014 03:31 PM V1-PT NOT INTERESTED IN QUIT TOBACCO USE [facility] Jan 09, 2014 10:43 AM CURRENT SMOKER pt smokes 1 pk of cigarettes per day. [facility] Jan 09, 2014 10:43 AM V1-PT THINKING ABOUT QUIT TOBACCO USE [facility] Aug 28, 2003 10:47 AM CURRENT SMOKER one pack q 6 days - he has cut down from 3 PPD. [facility] the [facility] [place] [facility] Encounter Notes: All associated encounter notes This section contains the clinical notes associated to the Encounter. Date/Time Encounter Note(s) Provider Source Jan 13, 2024 09:03 AM TELEPHONE ENCOUNTE R NOTE: LOCAL TITLE: TELEPHONE NOTE/SPECIALTY CLINIC STANDARD TITLE: TELEPHONE ENCOUNTER NOTE DATE OF NOTE: JAN 13, 2024@09:03 ENTRY DATE: JAN 13, 2024@09:04 AUTHOR: JOSE HUTCHISON EXP COSIGNER: URGENCY: STATUS: COMPLETED TELEPHONE NOTE/SPECIALTY CLINIC Has ADDENDA called asking if he could be seen sooner then his February 09/2024 appt. The veterans is calling and the is in the background asking stating his vision is getting worse. I transfered their call to Triage /gaetano/ JOSE HUTCHISON SCRAPPER Signed: 01/13/2024 09:05 Receipt Acknowledged By: 01/13/2024 11:15 /gaetano/ LAUREN MALIN SUPERVISORY SCRAPPER 01/13/2024 09:45 /es/ STACIA CAMPO OD Instructor Private 01/13/2024 ADDENDUM STATUS: COMPLETED Julieth Luong from triage teams messaged me to see if we could see the . We ended up getting a cancelation and the is scheduled with Dr Dillon for 3pm today /gaetano/ JOSE HUTCHISON SCRAPPER Signed: 01/13/2024 09:57 JO[facility] HUTCHISON [facility]
--- OUTSIDE RECORDS SUMMARY | 2024-11-01 07:58 | XMS_ITS | Encounter Summary ---
Author Name [facility] [place] Address [address] [place] [address] Care Team Providers Care Tire Molder Name Role Phone ELIZABET ROBINS Primary Care [...] Paul's Name Patient's Relationship to Policy Paul [facility] CE ORGANIZ [facility] AC Apr 18, 2018 [id number] [phone] WILLIS,MAR JUDITH SPOUSE ANTHEM BCBS OF [place] (BLUECARD) [facility] CE ORGANIZ [facility]EN [facility] Apr 18, 2018 [id number] [phone] WILLIS,MAR JUDITH SPOUSE BCBS [facility] CE ORGANIZ [facility] SHARE ACTIV E Apr 18, 2018 [id number] [phone] WILLIS,MAR JUDITH SPOUSE BC[facility] CE ORGANIZ [facility] Apr 18, 2018 [id number] [phone] WILLIS,MAR JUDITH PATIENT BCBS OF [facility] CE ORGANIZ BRENDA MCCABE [facility] Apr 18, 2018 [id number] WILLIS,MAR JUDITH SPOUSE [place] OF [place] PREFERRED PROVIDER ORGANIZAT ION (PPO) BRENDA MCCABE [facility] AC Apr 18, 2018 [id number] WILLIS,MAR JUDITH SPOUSE BCBS OF [facility] CE ORGANIZ BRENDA MCCABE [facility] ACT Apr 18, 2018 [id number] WILLIS,MAR JUDITH SPOUSE BCBS OF [facility] CE ORGANIZ BRENDA MCCABE [facility] AC Apr 18, 2018 [id number] [phone] WILLIS,MAR JUDITH SPOUSE [place] PRESCRIPT ION RX22M B Oct 19, 2022 RX22MB [id number] [phone] WILLIS,MAR JUDITH SPOUSE [place] PRESCRIPT ION RX22M A Oct 19, 2022 RX22MA [id number] WILLIS,LAVELLE AEL PATIENT [place] PRESCRIPT ION RX22M B Oct 19, 2022 RX22MB [id number] WILLIS,LAVELLE AEL PATIENT [place] PRESCRIPT ION BRENDA MCCABE [facility] AC Oct 19, 2022 RX22MB [id number] WILLIS,LAVELLE AEL SPOUSE [place] PRESCRIPT ION RX Oct 19, 2022 RX22MB [id number] WILLIS,MAR JUDITH SPOUSE [place] PRESCRIPT ION BCBS OF [place] Oct 19, 2022 RX22MA [id number] [phone] WILLIS, SPOUSE [place] ([id number]) PRESCRIPT ION [place] OF [place] Oct 19, 2022 RX22MB [id number] WILLIS,MAR JUDITH SPOUSE [place] BCBS ([facility] CE ORGANIZ BRENDA MCCABE [facility] AC Apr 18, 2018 [id number] WILLIS,EDILBERTO SOTELOZA SPOUSE EXPRESS [place] PRESCRIPT I[place] 2018 L4TA [id number] WILLIS,EDILBERTO SOTELOZA SPOUSE [employer] ([id number]) PRESCRIPT ION Apr 18, 2018 L4TA [id number] WILLIS,EDILBERTO SOTELOZA SPOUSE [employer]TS ([id number]) PRESCRIPT ION L4TA* Apr 18, 2020 L4TA [id number] WILLIS,EDILBERTO PALAFOXA SPOUSE EXPRESS SCRIPTS ([id number]) PRESCRIPT ION L4TA Apr 18, 2018 L4TA [id number] WILLIS,EDILBERTO SOTELOZA SPOUSE EXPRESS [employer]IPTS ([id number]) PRESCRIPT ION L4TA* Apr 18, 2018 L4TA [id number] 32 WILLIS,EDILBERTO PALAFOXA SPOUSE EXPRESS SCRIPTS ([id number]) PRESCRIPT ION Apr 18, 2018 L4TA [id number] 32 WILLISEDILBERTO SPOUSE [employer] ([id number]) PRESCRIPT ION Apr 18, 2018 L4TA [id number] WILLIS,EDILBERTO WONG SPOUSE EXPRESS SCRIPTS-MINOR BROGATION PRESCRIPT ION BC[place] OF [place] Apr 18, 2020 L4TA [id number] WILLIS,EDILBERTO WONG SPOUSE [facility] CE ORGANIZAT ION W/OUT OF NETWORK BENEFITS [facility]EN [facility] ACT Apr 18, 2018 [id number] [phone] WILLISEDILBERTO SPOUSE [place] BCBS [facility] (BLUECARD) [facility] CE ORGANIZAT ION [facility]STEN [facility] AC Apr 18, 2018 [id number] WILLISEDILBERTO SPOUSE MEDICARE (WNR) MEDICARE (M) PART A Mar 19, 1990 PART A [id number] WILLIS,LAVELLE AEL PATIENT MEDICARE (WNR) MEDICARE (M) PART A Mar 19, 1990 PART A [id number] WILLIS,LAVELLE AEL PATIENT MEDICARE (WNR) MEDICARE (M) PART A Mar 19, 1990 PART A [id number] WILLIS,LAVELLE AEL PATIENT MEDICARE (WNR) MEDICARE (M) PART A Mar 19, 1990 PART A [id number] [phone] WILLIS,LAVELLE AEL PATIENT MEDICARE (WNR) MEDICARE (M) PART A Mar 19, 1990 PART A [id number] WILLIS,LAVELLE AEL PATIENT MEDICARE (WNR) MEDICARE (M) PART A Mar 19, 1990 PART A [id number] WILLIS,LAVELLE AEL PATIENT MEDICARE (WNR) MEDICARE (M) PART A Mar 19, 1990 PART A [id number] [phone] WILLIS,LAVELLE AEL PATIENT MEDICARE (WNR) MEDICARE (M) PART A Mar 19, 1990 PART A [id number] WILLIS,LAVELLE AEL PATIENT MEDICARE (WNR) MEDICARE (M) PART A Mar 19, 1990 PART A [id number] WILLIS,LAVELEL AEL PATIENT MEDICARE (WNR) MEDICARE (M) PART A Mar 19, 1990 PART A [id number] WILLIS,LAVELLE AEL PATIENT MEDICARE (WNR) MEDICARE (M) PART A Mar 19, 1990 PART A [id number] [phone] WILLIS,LAVELLE AEL PATIENT Selected Encounter This section includes the information on record at [place] for the Encounter. Date/Time Encounter Type Encounter Description Reason Pro vider Source Feb 09, 2024 02:42 PM Outpatient Encounter ADMIN PAT ACTIVTIES (MASNONCT) IHE Encounter Template Text not used by [place] Plan of Treatment: Future Appointments (+ 6 [...] 20 appointments. The data comes from all [place] treatment facilities. Appointment Date/Time Appointment Type Appointme nt Facility Name February 17, 2024 12:00 PM AMBULATORY - MEDICINE [facility] [place] [facility] Mar 28, 2024 10:00 AM AMBULATORY - NONE [facility] [place] [facility] Mar 28, 2024 10:30 AM AMBULATORY - MEDICINE [facility] [place] [facility] Mar 28, 2024 01:00 PM AMBULATORY - MEDICINE [facility] [place] [facility] Apr 06, 2024 01:30 PM AMBULATORY - MEDICINE [facility] [place] [facility] May 30, 2024 08:30 AM AMBULATORY - MEDICINE [facility] [place] [facility] May 30, 2024 09:30 AM AMBULATORY - MEDICINE [facility] [place] [facility] Jun 01, 2024 10:00 AM AMBULATORY - MEDICINE [facility] [place] [facility] Jun 01, 2024 11:30 AM AMBULATORY - MEDICINE [facility] [place] [facility] Jun 28, 2024 11:30 AM AMBULATORY - MEDICINE [facility] [place] [facility] Jul 08, 2024 10:30 AM AMBULATORY - MEDICINE [facility] [place] [facility] Jul 13, 2024 09:30 AM AMBULATORY - MEDICINE [place] [facility] [place] [facility] Lab Results: +/- 30 days of the encounter This section includes the Chemistry and Hematology Lab Results on record with [place] for the patient. Radiology Reports and Pathology Reports are provided separately, in subsequent sections. Lab Results This section contains the Chemistry/Hematology Results that were resulted 30 days before or 30 daysafter the date of the Encounter. Date/Time Source Result Type Result - Unit Interpretation Reference Range Comment Feb 16, 2024 09:27 AM [facility] [place] [facility] HEMOGLOBIN A1C PANEL Specimen Type: BLOOD Comment: [...] Dec 10, 2023 06:17 PM Reporting Lab: [facility] [address] [id number] Performing Lab: [address] [address] HEMOGLOBIN A1C 6.2 H 4.0-5.6 Feb 16, 2024 09:27 AM [facility] BASIC METABOLIC PANEL (non-fasting) Specimen Type: SERUM No comment entered. Ordering Provider: KIMBER MACK Report Released Date/Time: Dec 10, 2023 06:17 PM Reporting Lab: [address] [id number] Performing Lab: [address] [address] UREA NITROGEN 11 mg/dL 7-25 GLUCOSE 112 [...] and tobacco- related health factors from the [place] facility where the Encounter took place. Current Smoking Status This section includes the most current smoking, or tobacco-related health factor, from the [place] facility where the Encounter took place. Date/Time Current Smoking Status Comment Enrique sotelo Nov 27, 2023 11:00 AM VA-TOBACCO FORMER USER [facility] Tobacco Use History This section includes a history of the smoking, or tobacco-related health factors, that were collected on or before the date of the Encounter. The data comes from the [place] facility where the Encounter took place. Date/Time Smoking Status/Tobac co Use Comment Facility Nov 27, 2023 11:00 AM [place]-TOBACCO QUIT 15 YRS OR MORE [facility] [place] [facility] Dec 02, 2022 08:00 AM VA-TOBACCO FORMER USER [facility] Dec 02, 2022 08:00 AM VA-TOBACCO QUIT 15 YRS OR MORE [facility] [place] [facility] Nov 05, 2021 10:30 AM VA-TOBACCO [facility] Nov 05, 2021 10:30 AM VA-TOBACCO QUIT 1 TO < 5 YRS [facility] Sep 14, 2020 02:00 PM [facility]-TOBACCO [facility] Sep 14, 2020 02:00 PM VA-TOBACCO QUIT 5 TO < 15 YRS [facility] Jan 22, 2018 03:40 PM QUIT TOBACCO USE > 7 YEARS AGO [facility] Jun 04, 2016 02:01 PM CURRENT SMOKER been smoking pass 20 yrs [facility] Jun 04, 2016 02:01 PM V1-PT DECLINES REF TO TOBACCO CESS PRGM [facility] Jun 04, 2016 02:01 PM V1-PT THINKING ABOUT QUIT TOBACCO USE [facility] Jul 18, 2014 03:31 PM V1-PT DECLINES REF TO TOBACCO CESS PRGM [facility] Jul 18, 2014 03:31 PM V1-PT DECLINES TOBACCO CESSATION MEDS [facility] Jul 18, 2014 03:31 PM V1-PT NOT INTERESTED IN QUIT TOBACCO USE [facility] Jan 09, 2014 10:43 AM CURRENT SMOKER pt smokes 1 pk of cigarettes per day. [facility] [place] [facility] Jan 09, 2014 10:43 AM V1-PT THINKING ABOUT QUIT TOBACCO USE [facility] Aug 28, 2003 10:47 AM CURRENT SMOKER one pack q 6 days - he has cut down from 3 PPD. He is in the process of quitting [facility] Encounter Notes: All associated encounter notes This section contains the clinical notes associated to the Encounter. Date/Time Encounter Note(s) Provider Source Feb 09, 2024 02:42 PM PHARMACY NOTE: LOCAL TITLE: V1 PHARMACY CUSTOMER CARE MEDICATION RENEWAL STANDARD TITLE: PHARMACY NOTE DATE OF NOTE: FEB 09, 2024@14:42 ENTRY DATE: FEB 09, 2024@14:43:03 AUTHOR: JUDY LAMAR EXP COSIGNER: URGENCY: STATUS: COMPLETED Date: Jan Division: [place] Pt referred by Pharmacy Call Center for medication renewal: Non-controlled/maintenanc e medication Medications requested: [id number] METFORMIN HCL 1000MG TAB Defer to specialty clinic To be mailed . Please review and renew if appropriate. *This note was generated by [facility] Customer Care. If you have any questions or need assistance, do not contact this author. Please refer all questions to your local, on-site pharmacy departments. /[email or web address]/ JUDY LAMAR Narcotics Investigator, MS/Pharmacy Customer Care Signed: 02/09/2024 14:43 Receipt Acknowledged By: 02/16/2024 13:11 /gaetano/ KIMBER MACK MD STAFF PHYSICIAN JUDY LAMAR [place] [facility]
--- OUTSIDE RECORDS SUMMARY | 2024-11-01 07:58 | XMS_ITS ---
Author Name [facility] [place] [facility] [place] Address [address] [place] [address] Care Team Providers Care Green [employer] Marketing Analyst Name Role Phone ELIZABET ROBINS Primary Care [...] Paul's Name Patient's Relationship to Policy Paul [facility] CE ORGANIZ [facility] AC Apr 18, 2018 [id number] WILLIS,MAR JUDITH SPOUSE ANTHEM BCBS OF [place] (BLUECARD) [facility]GANIZ [facility] Apr 18, 2018 [id number] WILLIS,MAR JUDITH SPOUSE BCBS [facility] CE ORGANIZ [facility] SH[facility] ACTIV E Apr 18, 2018 [id number] [phone] WILLIS,MAR JUDITH SPOUSE BCBS OF [facility] CE ORGANIZ [facility] Apr 18, 2018 [id number] WILLIS,MAR JUDITH PATIENT BCBS OF [facility] CE ORGANIZ BRENDA MCCABE [facility] Apr 18, 2018 [id number] WILLIS,MAR JUDITH SPOUSE BCBS OF [place] PREFERRED PROVIDER ORGANIZAT ION (PPO) BRENDA MCCABE [facility] AC Apr 18, 2018 [id number] WILLIS,MAR JUDITH SPOUSE BCBS OF [facility] CE ORGANIZ BRENDA MCCABE [facility] ACT Apr 18, 2018 [id number] WILLIS,MAR JUDITH SPOUSE BCBS OF [facility] CE ORGANIZ BRENDA MCCABE [facility] AC Apr 18, 2018 [id number] [phone] WILLIS,MAR JUDITH SPOUSE [place] PRESCRIPT ION BCBS OF [place] Oct 19, 2022 [id number] [phone] WILLIS, SPOUSE [place] PRESCRIPT ION RX22M A Oct 19, 2022 [id number] WILLIS,LAVELLE AEL PATIENT [place] PRESCRIPT ION RX22M B Oct 19, 2022 [id number] WILLIS,LAVELLE AEL PATIENT [place] PRESCRIPT ION RX22M B Oct 19, 2022 [id number] [phone] WILLIS,MAR JUDITH SPOUSE [place] PRESCRIPT ION RX Oct 19, 2022 [id number] WILLIS,MAR JUDITH SPOUSE [place] PRESCRIPT ION BRENDA MCCABE [facility] AC Oct 19, 2022 [id number] [phone] WILLIS,LAVELLE AEL SPOUSE [place] ([id number]) PRESCRIPT ION [place] Oct 19, 2022 [id number] WILLIS,MAR JUDITH SPOUSE [place] BCBS ([facility] CE ORGANIZ BRENDA MCCABE [facility] AC Apr 18, 2018 [id number] WILLISEDILBERTO SPOUSE [employer] PRESCRIPT ION BCBS ID 2018 [id number] WILLIS,EDILBERTO SOTELOZA SPOUSE [employer] ([id number]) PRESCRIPT ION Apr 18, 2018 L4TA [id number] WILLIS,EDILBRETO SOTELOZA SPOUSE [employer] ([id number]) PRESCRIPT ION L4TA* Apr 18, 2020 L4TA [id number] WILLISEDILBERTOA SPOUSE [employer] ([id number]) PRESCRIPT ION L4TA Apr 18, 2018 L4TA [id number] WILLIS,EDILBERTO SOTELOZA SPOUSE [employer] ([id number]) PRESCRIPT ION Apr 18, 2018 L4TA [id number] WILLIS,EDILBERTO WONG SPOUSE [employer] ([id number]) PRESCRIPT ION L4TA* Apr 18, 2018 L4TA [id number] WILLISEDILBERTO SPOUSE [employer] ([id number]) PRESCRIPT ION Apr 18, 2018 L4TA [id number] WILLISEDILBERTO SPOUSE EXPRESS [employer]-MINOR BROGATION PRESCRIPT ION [place] Apr 18, 2020 L4TA [id number] WILLIS,EDILBERTO WONG SPOUSE [facility] CE ORGANIZAT ION W/OUT OF NETWORK BENEFITS [facility] ACT Apr 18, 2018 [id number] WILLISEDILBERTO SPOUSE [place] BCBS [facility] (BLUECAR) [facility] [place] [place] CE ORGANIZAT ION [facility] AC Apr 18, 2018 [id number] [phone] WILLISEDILBERTO SPOUSE MEDICARE (WNR) MEDICARE (M) PART A Mar 19, 1990 PART A [id number] WILLIS,LAVELLE AEL PATIENT MEDICARE (WNR) MEDICARE (M) PART A Mar 19, 1990 PART A [id number] [phone] WILLIS,LAVELLE AEL PATIENT MEDICARE (WNR) MEDICARE (M) PART A Mar 19, 1990 PART A [id number] [phone] WILLIS,LAVELLE AEL PATIENT MEDICARE (WNR) MEDICARE (M) PART A Mar 19, 1990 PART A [id number] WILLIS,LAVELLE AEL PATIENT MEDICARE (WNR) MEDICARE (M) PART A Mar 19, 1990 PART A [id number] [phone] WILLIS,LAVELLE AEL PATIENT MEDICARE (WNR) MEDICARE (M) PART A Mar 19, 1990 PART A [id number] [phone] WILLIS,LAVELLE AEL PATIENT MEDICARE (WNR) MEDICARE (M) PART A Mar 19, 1990 PART A [id number] [phone] WILLIS,LAVELLE AEL PATIENT MEDICARE (WNR) MEDICARE (M) PART A Mar 19, 1990 PART A [id number] WILLIS,LAVELLE AEL PATIENT MEDICARE (WNR) MEDICARE (M) PART A Mar 19, 1990 PART A [id number] WILLIS,LAVELLE AEL PATIENT MEDICARE (WNR) MEDICARE (M) PART A Mar 19, 1990 PART A [id number] WILLIS,LAVELLE AEL PATIENT MEDICARE (WNR) MEDICARE (M) PART A Mar 19, 1990 PART A [id number] [phone] WILLIS,LAVELLE AEL PATIENT Selected Encounter This section includes the information on record at [place] for the Encounter. Date/Time Encounter Type Encounter Description Reason Provider Source February 17, 2024 12:00 PM MTMS BY PHARM CRYSTAL ATTACHER 15 MIN TELEPHONE PRIMARY CARE ICD-10-CM E11.9 Type 2 diabetes mellitus without complications LINDA PERSON Encounter Template Text not used by [place] Assessments - Encounter Diagnoses This section includes the primary and secondary diagnoses documented for the Encounter. Date/Time Primary/Secondary Diagnosis Diagnosis Name Provider Source February 17, 2024 12:00 PM PRIMARY Type 2 diabetes mellitus without complications LINDA PERSON [place] [facility] [place] [facility] Plan of Treatment: Future Appointments (+ 6 months) and Future Tests (+/- 45 days) The Plan of Treatment section includes future care activities for the patient [facility] [place] [facility] This section includes future appointments and future orders which are active, pending or scheduled. Future Appointments This section includes appointments that were scheduled to occur 6 months from the date of the Encounter, up to a maximum of 20 appointments. The data comes from all [place] treatment facilities. Appointment Date/Time Appointment Type Appointme nt Facility Name Mar 28, 2024 10:00 AM AMBULATORY - NONE [place] [facility] [place] [facility] Mar 28, 2024 10:30 AM AMBULATORY - MEDICINE [place] [facility] [place] [facility] Mar 28, 2024 01:00 PM AMBULATORY - MEDICINE [place] [facility] [place] [facility] Apr 06, 2024 01:30 PM AMBULATORY - MEDICINE [place] [facility] [place] [facility] May 30, 2024 08:30 AM AMBULATORY - MEDICINE [place] [facility] [place] [facility] May 30, 2024 09:30 AM AMBULATORY - MEDICINE [place] [facility] [place] [facility] Jun 01, 2024 10:00 AM AMBULATORY - MEDICINE [place] [facility] [place] [facility] Jun 01, 2024 11:30 AM AMBULATORY - MEDICINE [place] [facility] [place] [facility] Jun 28, 2024 11:30 AM AMBULATORY - MEDICINE [place] [facility] [place] [facility] Jul 08, 2024 10:30 AM AMBULATORY - MEDICINE [place] [facility] [place] [facility] Jul 13, 2024 09:30 AM AMBULATORY - MEDICINE [place] [facility] [place] [facility] Aug 12, 2024 09:30 AM AMBULATORY - MEDICINE [place] [facility] [place] [facility] Lab Results: +/- 30 days of the encounter This section includes the Chemistry and Hematology Lab Results on record with [place] for the patient. Radiology Reports and Pathology Reports are provided separately, in subsequent sections. Lab Results This section contains the Chemistry/Hematology Results that were resulted 30 days before or 30 daysafter the date of the Encounter. Date/Time Source Result Type Result - Unit Interpretation Reference Range Comment Feb 16, 2024 09:27 AM [facility] BASIC METABOLIC PANEL (non-fasting) Specimen Type: SERUM No comment entered. Ordering Provider: KIMBER MACK Report Released Date/Time: Dec 10, 2023 06:17 PM Reporting Lab: [facility] [address] [facility] [id number] Performing Lab: [facility] [address] [facility] [facility] [address] UREA NITROGEN 11 mg/dL 7-25 GLUCOSE 112 mg/dL H 65-100 SODIUM 141 mmol/L 135-145 POTASSIUM 4.1 mmol/L 3.5-5.0 CHLORIDE 107 mmol/L 100-110 CO2 20 meq/L 20-30 CREATININE, Serum 0.85 mg/dL 0.50-1.40 eGFR(CKD-EPI 2020) >90 mL/min >60 Feb 16, 2024 09:27 AM [facility] HEMOGLOBIN A1C PANEL Specimen Type: BLOOD [...] Dec 10, 2023 06:17 PM Reporting Lab: [facility] [address] [facility] [address] Performing Lab: [address] [address] HEMOGLOBIN A1C 6.2 H 4.0-5.6 Social History: Smoking Status (Most current) and Tobacco Use (All prior to encounter date) This section includes the most current, and the historical, smoking and tobacco- related health factors from the [place] facility where the Encounter took place. Current Smoking Status This section includes the most current smoking, or tobacco-related health factor, from the [place] facility where the Encounter took place. Date/Time Current Smoking Status Comment Facil mirtha Nov 27, 2023 11:00 AM [place]-TOBACCO QUIT 15 YRS OR MORE [facility] Tobacco Use History This section includes a history of the smoking, or tobacco-related health factors, that were collected on or before the date of the Encounter. The data comes from the [place] facility where the Encounter took place. Date/Time Smoking Status/Tobac co Use Comment Facility Nov 27, 2023 11:00 AM [place]-TOBACCO QUIT 15 YRS OR MORE [facility] Dec 02, 2022 08:00 AM VA-TOBACCO FORMER USER [place] [facility] Dec 02, 2022 08:00 AM VA-TOBACCO QUIT 15 YRS OR MORE [facility] Nov 05, 2021 10:30 AM [facility] Nov 05, 2021 10:30 AM [place]-TOBACCO QUIT 1 TO < 5 YRS [facility] Sep 14, 2020 02:00 PM VA-TOBACCO [facility] Sep 14, 2020 02:00 PM VA-TOBACCO QUIT 5 TO < 15 YRS [facility] [place] [facility] Jan 22, 2018 03:40 PM QUIT TOBACCO USE > 7 YEARS AGO [facility] Jun 04, 2016 02:01 PM CURRENT SMOKER been smoking pass 20 yrs [facility] Jun 04, 2016 02:01 PM V1-PT DECLINES REF TO TOBACCO CESS [facility] Jun 04, 2016 02:01 PM V1-PT THINKING ABOUT QUIT TOBACCO USE [facility] Jul 18, 2014 03:31 PM V1-PT DECLINES REF TO TOBACCO CESS [facility] Jul 18, 2014 03:31 PM V1-PT DECLINES TOBACCO CESSATION MEDS [facility] Jul 18, 2014 03:31 PM V1-PT NOT INTERESTED IN QUIT TOBACCO USE [facility] Jan 09, 2014 10:43 AM CURRENT SMOKER pt smokes 1 pk of cigarettes per day. [facility] Jan 09, 2014 10:43 AM V1-PT THINKING ABOUT QUIT TOBACCO USE [facility] Aug 28, 2003 10:47 AM CURRENT SMOKER one pack q 6 days - he has cut down from 3 PPD. He is in the process of quitting [facility] Encounter Notes: All associated encounter notes This section contains the clinical notes associated to the Encounter. Date/Time Encounter Note(s) Provider Source February 17, 2024 12:57 PM ADDENDUM: LOCAL TITLE: Addendum STANDARD TITLE: ADDENDUM DATE OF NOTE: FEBRUARY 17, 2024@12:57:07 ENTRY DATE: FEBRUARY 17, 2024@12:57:08 AUTHOR: LINDA PERSON COSIGNER: URGENCY: STATUS: COMPLETED Will ask [facility] to please schedule patient for: [X] CWM/NO/PHARM/PACT 3 [ ] CWM/NO/PHARM/PACT 3 TEL RTC order placed. Appointment Length: __30_ minutes. 05/30/24 @ 0930 Thank you! /gaetano/ LINDA PERSON PHARMD,BCPS CLINICAL PHARMACY PRACTITIONER Signed: 02/17/2024 12:57 Receipt Acknowledged By: 02/18/2024 08:37 /es/ LUCY MONTIEL [employer] GINNER for THANH LUCAS --- Original Document --- 02/17/24 PHARMACY CLINIC NOTE: CHAYA PEDRO, 68 yo DECLINED TO ANSWER MALE, presents for initial telephone visit for diabetes management. Today, pt reports he is doing well. He came in for labs yesterday and was previously followed by . He notes extensive family hx of diabetes- parents, grandparents and sisters. His grandmother had legs amputated. He denies any diarrhea with current regimen of metformin. He denies any hypos. Pt states he has changed his diet significantly since having dx of dm. He doesnt eat fried food or drink soda any longer. He states he glucometer isnt working correctly and would like more test strips. He states his was recently prescribed Ozempic- wonders if he needs this? Current diabetes medications: - metformin 1000 mg twice daily Medication Adherence: - takes daily Diet Patterns: patient eats on avg. 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 SMBG assessment: HYPOGLYCEMIC Events: 0 in last 2 weeks - Hypoglycemia recognition & treatment reviewed: Yes Allergies/ADR: AKWA TEARS, DIFLUCAN, PHENYTOIN, FLUOROMETHOLONE, REFRESH TEARS, OXYCODONE LEVETIRACETAM Active and Recently Outpatient Medications (including Supplies): Active Outpatient Medications Status 1) ALBUTEROL 3/IPRATROP 0.5MG/3ML INHL 3ML INHALE 1 VIAL ACTIVE (3ML) IN NEBULIZER EVERY 4 HOURS NEEDED FOR BRONCHOSPASM 2) ALBUTEROL 90MCG (CFC-F) 200D ORAL INHL INHALE 2 PUFFS ACTIVE BY MOUTH EVERY 4 HOURS NEEDED FOR SHORTNESS OF BREATH 3) AMLODIPINE BESYLATE 5MG TAB TAKE ONE TABLET BY MOUTH ACTIVE ONCE DAILY FOR BLOOD PRESSURE/HEART, DO NOT TAKE WITH GRAPEFRUIT JUICE 4) DOXYCYCLINE HYCLATE 50MG CAP TAKE ONE CAPSULE BY ACTIVE MOUTH TWICE DAILY FOR INFECTION CAUSED BY BACTERIA 5) ERYTHROMYCIN 0.5% OPH OINT APPLY THIN RIBBON INTO ACTIVE EACH EYE TWICE DAILY NEEDED FOR EYE INFECTION 6) FAMOTIDINE 20MG TAB TAKE ONE TABLET BY MOUTH DAILY ACTIVE FOR STOMACH ACID 7) KETOTIFEN 0.025% OPH SOLN INSTILL 1 DROP INTO EACH ACTIVE EYE TWICE DAILY NEEDED FOR ALLERGIC CONJUNCTIVITIS (IF YOU WEAR CONTACT LENSES, WAIT 10 MINUTES BEFORE INSERTING LENSES) 8) LACTOBACILLUS ACIDOPHILUS CAP TAKE 1 CAPSULE BY MOUTH ACTIVE TWICE DAILY 9) LEVOCETIRIZINE DIHYDROCHLORIDE 5MG TAB TAKE ONE ACTIVE TABLET BY MOUTH EVERY EVENING FOR ALLERGIES 10) LIDOCAINE 5% PATCH APPLY 1 PATCH TOPICALLY EVERY 12 ACTIVE HOURS NEEDED (LEAVE PATCH ON FOR 12 HOURS, THEN REMOVE PATCH) 11) METFORMIN HCL 1000MG TAB TAKE ONE TABLET BY MOUTH ACTIVE (S) TWICE DAILY FOR DIABETES 12) PEG 400 0.4%/PROP GLYCOL 0.3% OPH SOLN INSTILL 1 DROP ACTIVE INTO EACH EYE FOUR TIMES DAILY NEEDED DRY EYE Inactive Outpatient Medications Status 1) ACCU-CHEK GUIDE (GLUCOSE) TEST STRIP USE 1 STRIP TO TEST BLOOD SUGARS TWO TIMES A WEEK 2) ATORVASTATIN CALCIUM 80MG TAB TAKE ONE-HALF TABLET BY MOUTH AT BEDTIME FOR CHOLESTEROL 3) DOXYCYCLINE HYCLATE 50MG CAP TAKE ONE CAPSULE BY DISCONTINUED MOUTH TWICE DAILY (EDIT) 4) KETOTIFEN 0.025% OPH SOLN INSTILL 2 DROPS INTO EACH EYE ONCE DAILY FOR ITCHINESS, SWELLING (IF YOU WEAR CONTACT LENSES, WAIT 10 MINUTES BEFORE INSERTING LENSES) 5) LACTOBACILLUS ACIDOPHILUS CAP TAKE 1 CAPSULE BY MOUTH DISCONTINUED TWICE DAILY FOR PROBIOTIC SUPPLEMENTATION (EDIT) 6) METFORMIN HCL 1000MG TAB TAKE ONE TABLET BY MOUTH DISCONTINUED TWICE DAILY FOR DIABETES 7) METRONIDAZOLE 0.75% TOP GEL APPLY SMALL AMOUNT TOPICALLY TWICE DAILY FOR ACNE ROSACEA 8) PEG 400 0.4%/PROP GLYCOL 0.3% OPH SOLN INSTILL 1 DROP DISCONTINUED INTO EACH EYE FOUR TIMES DAILY NEEDED DRY EYE 20 Total Medications Labs: CHEM 7 TREND LAB CUMULATIVE SELECTED Collection DT Spec GLUCOSE BUN CREATIN Sodium K+/Pot CL CO2 02/16/2024 09:27 SERUM 112 H 11 0.85 141 4.1 107 20 11/27/2023 08:43 SERUM 133 H 12 0.84 141 4.1 109 21 05/28/2023 11:39 SERUM 141 H 12 0.87 140 3.9 107 20 12/29/2022 14:56 SERUM 93 14 0.84 140 3.8 108 20 12/02/2022 09:03 SERUM 130 H 12 0.81 140 4.1 107 20 LAB CUMULATIVE SELECTED 2 No selection items chosen for this component. CHEM 7 Results Collection DT Spec Sodium K+/Pot CL CO2 GLUCOSE BUN 02/16/2024 09:27 SERUM 141 4.1 107 20 112 H 11 11/27/2023 08:43 SERUM 141 4.1 109 21 133 H 12 05/28/2023 11:39 SERUM 140 3.9 107 20 141 H 12 12/29/2022 14:56 SERUM 140 3.8 108 20 93 14 12/02/2022 09:03 SERUM 140 4.1 107 20 130 H 12 07/08/2022 10:39 SERUM 140 4.3 106 23 112 H 10 04/08/2022 09:16 SERUM 137 4.3 105 19 L 255 H 11 05/27/2021 09:23 SERUM 140 4.1 107 21 136 H 12 01/07/2017 14:40 SERUM 140 3.7 107 23 103 H 12 08/05/2016 08:54 SERUM 140 4.5 108 24 111 H 14 06/04/2016 13:32 SERUM 141 4.1 108 22 116 H 9 08/28/2015 07:34 SERUM 139 4.2 110 22 139 H 13 08/07/2015 07:30 SERUM 139 4.4 105 23 114 H 10 11/01/2014 17:03 SERUM 144 3.8 108 28 110 H 11 10/17/2014 10:25 SERUM 141 4.0 106 24 107 H 14 07/18/2014 16:19 SERUM 139 4.0 104 23 94 14 03/29/2014 08:01 SERUM 140 4.3 107 23 105 H 10 10/27/2003 09:45 SERUM 141 4.9 105 26 103 11 08/09/2002 08:23 SERUM 139 4.2 102 27 139 H 8 04/15/2001 20:45 SERUM 135 3.9 101 20 03/23/2001 07:00 SERUM 139 3.8 102 29 92 6 L 06/05/1999 07:00 SERUM 143 4.0 107 25 87 10 04/11/1999 10:52 SERUM 140 4.6 106 26 98 7 10/10/1998 08:58 SERUM 140 4.1 103 18 L 124 H 7 01/11/1998 07:00 SERUM 142 4.2 104 26 102 10 06/01/1997 11:25 SERUM 140 4.2 106 26 101 9 05/18/1995 07:36 SERUM 145 3.8 109 26 99 6 L 04/08/1995 07:00 SERUM 142 3.7 102 26 95 7 03/18/1995 07:00 SERUM 148 H 4.1 108 27 89 10 04/29/1994 07:00 SERUM 139 4.2 103 25 12 03/07/1994 13:36 SERUM 10 01/07/1994 12:04 SERUM 140 4.4 102 28 9 12/16/1991 07:00 SERUM 137 4.2 100 20 L 7 12/15/1991 08:00 SERUM 117 9 12/15/1991 00:10 SERUM 138 3.8 102 23 11/03/1991 12:51 SERUM 139 4.0 102 27 8 10/07/1991 07:00 SERUM 138 4.4 101 29 99 9 03/24/1991 07:00 SERUM 141 4.8 99 31 10 06/01/1990 08:30 SERUM 143 4.5 104 29 88 10 eGFR CKD-EPI 202002/16/24 09:27 >90 SERUM LIVER PANEL TREND Collection DT Spec AST ALT T BILI ALK EULOGIO T. PROT ALBUMIN 12/29/2022 14:56 SERUM 41 H 50 0.6 80 7.7 4.7 12/02/2022 09:15 SERUM 44 H 59 H 0.5 92 7.8 4.6 07/08/2022 10:39 SERUM 34 46 0.5 86 7.6 4.4 04/08/2022 09:16 SERUM 43 H 57 H 0.6 100 7.6 4.1 08/05/2016 08:54 SERUM 30 50 0.5 84 7.1 4.2 HEMOGLOBIN A1C TREND Collection DT Spec HGBA1c 02/16/2024 09:27 BLOOD 6.2 H 11/27/2023 08:43 BLOOD 6.1 H 05/28/2023 11:39 BLOOD 6.1 H 12/02/2022 09:03 BLOOD 6.1 H 07/08/2022 10:39 BLOOD 6.5 H LIPID PANEL TREND Collection DT Spec CHOL HDL CHO/HDL LDL-d LDL-c TRIG 11/27/2023 08:43 SERUM 136 43 3.2 69 119 12/02/2022 09:15 SERUM 188 47 4.0 101 202 H 07/08/2022 10:39 SERUM 135 40 3.4 61 168 H 04/08/2022 09:16 SERUM 154 41 3.8 84 145 06/04/2016 13:32 SERUM 256 H 43 6.0 171 H 209 H Vitals: Ht: 65 in [165.1 cm] (12/10/2023 09:52) Wt: 211 lb [95.71 kg] (12/10/2023 09:52) BMI: BMI: 35.2 BP: 115/76 (12/10/2023 09:52) HR: 82 (12/10/2023 09:52) Assessment: DIABETES: Goal: A1c goal is <7% with a goal fasting BG average of 90-130mg/dL and a goal post-prandial BG average of <180mg/dL per ADA guideline. -A1c is above goal of <7% (6.2% 02/16/24) CARDIOVASCULAR: Goal BP = <130/80 mmHg -Current BP is115/76 (12/10/2023 09:52) -Lipids:wnl 02/16/24 PREVENTIVE CARE: - Most recent visit to Podiatry: see's once / year checks regularly - Most recent visit to Optometry: Type II diabetes without diabetic retinopathy or macular edema OU 01/13/24 Plan: - Medication management - CONTINUE: Metformin 1000 mg twice daily - Continue to SMBG 2x/week - New glucometer and supplies mailed - Monitor for s/sx hypoglycemia and contact clinic if BG consistently <70mg/dL - Healthy dietary and lifestyle modifications encouraged - Repeat A1c:08/2024-09/2024 EDUCATION -A shared decision-making approach was used in the development of this plan, involving the , clinician, and any caregivers present. The [place] was provided the opportunity express questions or concerns, and the plan was adjusted as needed to address these concerns. -Reviewed with any new medications, changes to the medication list, education, and plan from today's visit. Patient (and/or caregiver) verbalized understanding of the plan, including possible known risks and benefits, and had no additional questions. RTC:05/30/24 @ 0930 x 30 mins Time Spent:18 mins PBM PharmD Pharmacotherapy Rem V12: PHARMACIST INTERVENTIONS: TYPE 2 DIABETES MELLITUS Medication monitoring, no dosage change required, continue to monitor and assess /gaetano/ LINDA PERSON PHARMD,BCPS CLINICAL PHARMACY PRACTITIONER Signed: 02/17/2024 12:56 LINDA PERSON [place] [facility] [place] [facility] February 17, 2024 11:56 AM PHARMACY OUTPATIEN T NOTE: LOCAL TITLE: PHARMACY CLINIC NOTE STANDARD TITLE: PHARMACY OUTPATIENT NOTE DATE OF NOTE: FEBRUARY 17, 2024@11:56 ENTRY DATE: FEBRUARY 17, 2024@11:56:39 AUTHOR: LINDA PERSON EXP COSIGNER: URGENCY: STATUS: COMPLETED PHARMACY CLINIC NOTE Has ADDENDA CHAYA PEDRO, 68 yo DECLINED TO ANSWER MALE, presents for initial telephone visit for diabetes management. Today, pt reports he is doing well. He came in for labs yesterday and was previously followed by . He notes extensive family hx of diabetes- parents, grandparents and sisters. His grandmother had legs amputated. He denies any diarrhea with current regimen of metformin. He denies any hypos. Pt states he has changed his diet significantly since having dx of dm. He doesnt eat fried food or drink soda any longer. He states he glucometer isnt working correctly and would like more test strips. He states his was recently prescribed Ozempic- wonders if he needs this? Current diabetes medications: - metformin 1000 mg twice daily Medication Adherence: - takes daily Diet Patterns: patient eats on avg. 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 SMBG assessment: HYPOGLYCEMIC Events: 0 in last 2 weeks - Hypoglycemia recognition & treatment reviewed: Yes Allergies/ADR: AKWA TEARS, DIFLUCAN, PHENYTOIN, FLUOROMETHOLONE, REFRESH TEARS, OXYCODONE LEVETIRACETAM Active and Recently Outpatient Medications (including Supplies): Active Outpatient Medications Status 1) ALBUTEROL 3/IPRATROP 0.5MG/3ML INHL 3ML INHALE 1 VIAL ACTIVE (3ML) IN NEBULIZER EVERY 4 HOURS NEEDED FOR BRONCHOSPASM 2) ALBUTEROL 90MCG (CFC-F) 200D ORAL INHL INHALE 2 PUFFS ACTIVE BY MOUTH EVERY 4 HOURS NEEDED FOR SHORTNESS OF BREATH 3) AMLODIPINE BESYLATE 5MG TAB TAKE ONE TABLET BY MOUTH ACTIVE ONCE DAILY FOR BLOOD PRESSURE/HEART, DO NOT TAKE WITH GRAPEFRUIT JUICE 4) DOXYCYCLINE HYCLATE 50MG CAP TAKE ONE CAPSULE BY ACTIVE MOUTH TWICE DAILY FOR INFECTION CAUSED BY BACTERIA 5) ERYTHROMYCIN 0.5% OPH OINT APPLY THIN RIBBON INTO ACTIVE EACH EYE TWICE DAILY NEEDED FOR EYE INFECTION 6) FAMOTIDINE 20MG TAB TAKE ONE TABLET BY MOUTH DAILY ACTIVE FOR STOMACH ACID 7) KETOTIFEN 0.025% OPH SOLN INSTILL 1 DROP INTO EACH ACTIVE EYE TWICE DAILY NEEDED FOR ALLERGIC CONJUNCTIVITIS (IF YOU WEAR CONTACT LENSES, WAIT 10 MINUTES BEFORE INSERTING LENSES) 8) LACTOBACILLUS ACIDOPHILUS CAP TAKE 1 CAPSULE BY MOUTH ACTIVE TWICE DAILY 9) LEVOCETIRIZINE DIHYDROCHLORIDE 5MG TAB TAKE ONE ACTIVE TABLET BY MOUTH EVERY EVENING FOR ALLERGIES 10) LIDOCAINE 5% PATCH APPLY 1 PATCH TOPICALLY EVERY 12 ACTIVE HOURS NEEDED (LEAVE PATCH ON FOR 12 HOURS, THEN REMOVE PATCH) 11) METFORMIN HCL 1000MG TAB TAKE ONE TABLET BY MOUTH ACTIVE (S) TWICE DAILY FOR DIABETES 12) PEG 400 0.4%/PROP GLYCOL 0.3% OPH SOLN INSTILL 1 DROP ACTIVE INTO EACH EYE FOUR TIMES DAILY NEEDED DRY EYE Inactive Outpatient Medications Status 1) ACCU-CHEK GUIDE (GLUCOSE) TEST STRIP USE 1 STRIP TO TEST BLOOD SUGARS TWO TIMES A WEEK 2) ATORVASTATIN CALCIUM 80MG TAB TAKE ONE-HALF TABLET BY MOUTH AT BEDTIME FOR CHOLESTEROL 3) DOXYCYCLINE HYCLATE 50MG CAP TAKE ONE CAPSULE BY DISCONTINUED MOUTH TWICE DAILY (EDIT) 4) KETOTIFEN 0.025% OPH SOLN INSTILL 2 DROPS INTO EACH EYE ONCE DAILY FOR ITCHINESS, SWELLING (IF YOU WEAR CONTACT LENSES, WAIT 10 MINUTES BEFORE INSERTING LENSES) 5) LACTOBACILLUS ACIDOPHILUS CAP TAKE 1 CAPSULE BY MOUTH DISCONTINUED TWICE DAILY FOR PROBIOTIC SUPPLEMENTATION (EDIT) 6) METFORMIN HCL 1000MG TAB TAKE ONE TABLET BY MOUTH DISCONTINUED TWICE DAILY FOR DIABETES 7) METRONIDAZOLE 0.75% TOP GEL APPLY SMALL AMOUNT TOPICALLY TWICE DAILY FOR ACNE ROSACEA 8) PEG 400 0.4%/PROP GLYCOL 0.3% OPH SOLN INSTILL 1 DROP DISCONTINUED INTO EACH EYE FOUR TIMES DAILY NEEDED DRY EYE 20 Total Medications Labs: CHEM 7 TREND LAB CUMULATIVE SELECTED Collection DT Spec GLUCOSE BUN CREATIN Sodium K+/Pot CL CO2 02/16/2024 09:27 SERUM 112 H 11 0.85 141 4.1 107 20 11/27/2023 08:43 SERUM 133 H 12 0.84 141 4.1 109 21 05/28/2023 11:39 SERUM 141 H 12 0.87 140 3.9 107 20 12/29/2022 14:56 SERUM 93 14 0.84 140 3.8 108 20 12/02/2022 09:03 SERUM 130 H 12 0.81 140 4.1 107 20 LAB CUMULATIVE SELECTED 2 No selection items chosen for this component. CHEM 7 Results Collection DT Spec Sodium K+/Pot CL CO2 GLUCOSE BUN 02/16/2024 09:27 SERUM 141 4.1 107 20 112 H 11 11/27/2023 08:43 SERUM 141 4.1 109 21 133 H 12 05/28/2023 11:39 SERUM 140 3.9 107 20 141 H 12 12/29/2022 14:56 SERUM 140 3.8 108 20 93 14 12/02/2022 09:03 SERUM 140 4.1 107 20 130 H 12 07/08/2022 10:39 SERUM 140 4.3 106 23 112 H 10 04/08/2022 09:16 SERUM 137 4.3 105 19 L 255 H 11 05/27/2021 09:23 SERUM 140 4.1 107 21 136 H 12 01/07/2017 14:40 SERUM 140 3.7 107 23 103 H 12 08/05/2016 08:54 SERUM 140 4.5 108 24 111 H 14 06/04/2016 13:32 SERUM 141 4.1 108 22 116 H 9 08/28/2015 07:34 SERUM 139 4.2 110 22 139 H 13 08/07/2015 07:30 SERUM 139 4.4 105 23 114 H 10 11/01/2014 17:03 SERUM 144 3.8 108 28 110 H 11 10/17/2014 10:25 SERUM 141 4.0 106 24 107 H 14 07/18/2014 16:19 SERUM 139 4.0 104 23 94 14 03/29/2014 08:01 SERUM 140 4.3 107 23 105 H 10 10/27/2003 09:45 SERUM 141 4.9 105 26 103 11 08/09/2002 08:23 SERUM 139 4.2 102 27 139 H 8 04/15/2001 20:45 SERUM 135 3.9 101 20 03/23/2001 07:00 SERUM 139 3.8 102 29 92 6 L 06/05/1999 07:00 SERUM 143 4.0 107 25 87 10 04/11/1999 10:52 SERUM 140 4.6 106 26 98 7 10/10/1998 08:58 SERUM 140 4.1 103 18 L 124 H 7 01/11/1998 07:00 SERUM 142 4.2 104 26 102 10 06/01/1997 11:25 SERUM 140 4.2 106 26 101 9 05/18/1995 07:36 SERUM 145 3.8 109 26 99 6 L 04/08/1995 07:00 SERUM 142 3.7 102 26 95 7 03/18/1995 07:00 SERUM 148 H 4.1 108 27 89 10 04/29/1994 07:00 SERUM 139 4.2 103 25 12 03/07/1994 13:36 SERUM 10 01/07/1994 12:04 SERUM 140 4.4 102 28 9 12/16/1991 07:00 SERUM 137 4.2 100 20 L 7 12/15/1991 08:00 SERUM 117 9 12/15/1991 00:10 SERUM 138 3.8 102 23 11/03/1991 12:51 SERUM 139 4.0 102 27 8 10/07/1991 07:00 SERUM 138 4.4 101 29 99 9 03/24/1991 07:00 SERUM 141 4.8 99 31 10 06/01/1990 08:30 SERUM 143 4.5 104 29 88 10 eGFR CKD-EPI 202002/16/24 09:27 >90 SERUM LIVER PANEL TREND Collection DT Spec AST ALT T BILI ALK EULOGIO T. PROT ALBUMIN 12/29/2022 14:56 SERUM 41 H 50 0.6 80 7.7 4.7 12/02/2022 09:15 SERUM 44 H 59 H 0.5 92 7.8 4.6 07/08/2022 10:39 SERUM 34 46 0.5 86 7.6 4.4 04/08/2022 09:16 SERUM 43 H 57 H 0.6 100 7.6 4.1 08/05/2016 08:54 SERUM 30 50 0.5 84 7.1 4.2 HEMOGLOBIN A1C TREND Collection DT Spec HGBA1c 02/16/2024 09:27 BLOOD 6.2 H 11/27/2023 08:43 BLOOD 6.1 H 05/28/2023 11:39 BLOOD 6.1 H 12/02/2022 09:03 BLOOD 6.1 H 07/08/2022 10:39 BLOOD 6.5 H LIPID PANEL TREND Collection DT Spec CHOL HDL CHO/HDL LDL-d LDL-c TRIG 11/27/2023 08:43 SERUM 136 43 3.2 69 119 12/02/2022 09:15 SERUM 188 47 4.0 101 202 H 07/08/2022 10:39 SERUM 135 40 3.4 61 168 H 04/08/2022 09:16 SERUM 154 41 3.8 84 145 06/04/2016 13:32 SERUM 256 H 43 6.0 171 H 209 H Vitals: Ht: 65 in [165.1 cm] (12/10/2023 09:52) Wt: 211 lb [95.71 kg] (12/10/2023 09:52) BMI: BMI: 35.2 BP: 115/76 (12/10/2023 09:52) HR: 82 (12/10/2023 09:52) Assessment: DIABETES: Goal: A1c goal is <7% with a goal fasting BG average of 90-130mg/dL and a goal post-prandial BG average of <180mg/dL per ADA guideline. -A1c is above goal of <7% (6.2% 02/16/24) CARDIOVASCULAR: Goal BP = <130/80 mmHg -Current BP is115/76 (12/10/2023 09:52) -Lipids:wnl 02/16/24 PREVENTIVE CARE: - Most recent visit to Podiatry: see's once / year checks regularly - Most recent visit to Optometry: Type II diabetes without diabetic retinopathy or macular edema OU 01/13/24 Plan: - Medication management - CONTINUE: Metformin 1000 mg twice daily - Continue to SMBG 2x/week - New glucometer and supplies mailed - Monitor for s/sx hypoglycemia and contact clinic if BG consistently <70mg/dL - Healthy dietary and lifestyle modifications encouraged - Repeat A1c:08/2024-09/2024 EDUCATION -A shared decision-making approach was used in the development of this plan, involving the , clinician, and any caregivers present. The was provided the opportunity express questions or concerns, and the plan was adjusted as needed to address these concerns. -Reviewed with L[place]to any new medications, changes to the medication list, education, and plan from today's visit. Patient (and/or caregiver) verbalized understanding of the plan, including possible known risks and benefits, and had no additional questions. RTC:05/30/24 @ 0930 x 30 mins Time Spent:18 mins PBM PharmD Pharmacotherapy Rem V12: PHARMACIST INTERVENTIONS: TYPE 2 DIABETES MELLITUS Medication monitoring, no dosage change required, continue to monitor and assess /jerry PERSON PHARMD, BCPS CLINICAL PHARMACY PRACTITIONER Signed: 02/17/2024 12:56 02/17/2024 ADDENDUM STATUS: COMPLETED Will ask AMSA to please schedule patient for: [X] CWM/NO/PHARM/PACT 3 [ ] CWM/NO/PHARM/PACT 3 TEL RTC order placed. Appointment Length: __30_ minutes. 05/30/24 @ 0930 Thank you! /jerry PERSON PHARMD, BCPS CLINICAL PHARMACY PRACTITIONER Signed: 02/17/2024 12:57 Receipt Acknowledged By: * AWAITING SIGNATURE * THANH LUCAS JODI A [facility]
--- OUTSIDE RECORDS SUMMARY | 2024-11-01 07:58 | XMS_ITS | Encounter Summary ---
Author Name [facility] [place] [facility] [place] Address [address] [place] [address] Care Team Providers Care Babbitter Name Role Phone ELIZABET ROBINS Primary Care [...] Paul's Name Patient's Relationship to Policy Paul [facility] CE ORGANIZ [facility] AC Apr 18, 2018 [id number] WILLIS,MAR JUDITH SPOUSE ANTHEM [place] OF [place] (BLU[place]ARD) [facility] CE ORGANIZ TYRAIA [facility] Apr 18, 2018 [id number] WILLIS,MAR JUDITH SPOUSE BCBS [facility] CE ORGANIZ [facility] ACTIV E Apr 18, 2018 [id number] WILLIS,MAR JUDITH SPOUSE BCBS OF [facility] CE ORGANIZ [facility] Apr 18, 2018 [id number] WILLIS,MAR JUDITH PATIENT BCBS OF [facility] CE ORGANIZ BRENDA MCCABE [facility] Apr 18, 2018 [id number] WILLIS,MAR JUDITH SPOUSE [place] OF [place] PREFERRED PROVIDER ORGANIZAT ION (PPO) BRENDA MCCABE [facility] AC Apr 18, 2018 [id number] WILLIS,MAR JUDITH SPOUSE BCBS OF [facility] CE ORGANIZ BRENDA MCCABE [facility] ACT Apr 18, 2018 [id number] WILLIS,MAR JUDITH SPOUSE BCBS OF [facility] CE ORGANIZ BRENDA MCCABE [facility] AC Apr 18, 2018 [id number] WILLIS,MAR JUDITH SPOUSE [place] PRESCRIPT ION BRENDA MCCABE [facility] AC Oct 19, 2022 [id number] WILLIS,LAVELLE AEL SPOUSE [place] PRESCRIPT ION RX22M A Oct 19, 2022 RX22MA [id number] WILLIS,LAVELLE AEL PATIENT [place] PRESCRIPT ION RX22M B Oct 19, 2022 RX22MB [id number] WILLIS,LAVELLE AEL PATIENT [place] PRESCRIPT [place] Oct 19, 2022 [phone] WILLIS, SPOUSE [place] PRESCRIPT ION RX22M B Oct 19, 2022 RX22MB [id number] [phone] WILLIS,MAR JUDITH SPOUSE [place] PRESCRIPT ION RX Oct 19, 2022 [id number] WILLIS,MAR JUDITH SPOUSE [place] ([id number]) PRESCRIPT [place] Oct 19, 2022 [id number] WILLIS,MAR JUDITH SPOUSE [place] ([facility] CE ORGANIZ BRENDA MCCABE [facility] AC Apr 18, 2018 [id number] WILLIS,EDILBERTO SOTELOZA SPOUSE [place] PRESCRIPT [place] 2018 L4TA [id number] WILLIS,EDILBERTO WOGN SPOUSE [employer] ([id number]) PRESCRIPT ION Apr 18, 2018 L4TA [id number] WILLIS,EDILBERTO SOTELOZA SPOUSE [employer] ([id number]) PRESCRIPT ION L4TA* Apr 18, 2020 L4TA [id number] WILLISEDILBERTOA SPOUSE [employer] ([id number]) PRESCRIPT ION L4TA* Apr 18, 2018 L4TA [id number] WILLIS,EDILBERTO BROOKS SPOUSE [employer] ([id number]) PRESCRIPT ION L4TA Apr 18, 2018 L4TA [id number] WILLIS,EDILBERTO WONG SPOUSE [employer] ([id number]) PRESCRIPT ION Apr 18, 2018 L4TA [id number] WILLISEDILBERTO SPOUSE [employer] ([id number]) PRESCRIPT ION Apr 18, 2018 L4TA [id number] WILLIS,EDILBERTO WONG SPOUSE [employer]-[place]OR [place] PRESCRIPT I[place] Apr 18, 2020 L4TA [id number] WILLISEDILBERTO SPOUSE [facility] CE ORGANIZAT ION W/OUT OF NETWORK BENEFITS [facility] R[facility] ACT Apr 18, 2018 [id number] EDILBERTO PEDRO SPOUSE [place] BCBS [facility] (BLUECAR) [facility] CE ORGANIZAT ION [facility] Apr 18, 2018 [id number] EDILBERTO PEDRO SPOUSE MEDICARE (WNR) MEDICARE (M) PART A Mar 19, 1990 PART A [id number] [phone] [id number] LAVELLE PEDRO AEL PATIENT MEDICARE (WNR) MEDICARE (M) PART A Mar 19, 1990 PART A [id number] WILLIS,LAVELLE AEL PATIENT MEDICARE (WNR) MEDICARE (M) PART A Mar 19, 1990 PART A [id number] [phone] [id number] WILLIS,LAVELLE AEL PATIENT MEDICARE (WNR) MEDICARE (M) PART A Mar 19, 1990 PART A [id number] WILLIS,LAVELLE AEL PATIENT MEDICARE (WNR) MEDICARE (M) PART A Mar 19, 1990 PART A [id number] [id number] WILLIS,LAVELLE AEL PATIENT MEDICARE (WNR) MEDICARE (M) PART A Mar 19, 1990 PART A [id number] WILLIS,LAVELLE AEL PATIENT MEDICARE (WNR) MEDICARE (M) PART A Mar 19, 1990 PART A [id number] WILLIS,LAVELLE AEL PATIENT MEDICARE (WNR) MEDICARE (M) PART A Mar 19, 1990 PART A [id number] WILLIS,LAVELLE AEL PATIENT MEDICARE (WNR) MEDICARE (M) PART A Mar 19, 1990 PART A [id number] WILLIS,LAVELLE AEL PATIENT MEDICARE (WNR) MEDICARE (M) PART A Mar 19, 1990 PART A [id number] [phone] [id number] WILLIS,LAVELLE AEL PATIENT MEDICARE (WNR) MEDICARE (M) PART A Mar 19, 1990 PART A [id number] [phone] WILLIS,LAVELLE AEL PATIENT Selected Encounter This section includes the information on record at [place] for the Encounter. Date/Time Encounter Type Encounter Description Reason Pro vider Source Feb 12, 2024 02:58 PM Outpatient Encounter ENDOCRINOLOGY IHE Encounter Template Text not used by [facility] Plan of Treatment: Future Appointments (+ 6 [...] - MEDICINE [facility] [place] [facility] Mar 28, 2024 10:00 AM AMBULATORY - NONE [facility] [place] [facility] Mar 28, 2024 10:30 AM AMBULATORY - MEDICINE [facility] [place] [facility] Mar 28, 2024 01:00 PM AMBULATORY - MEDICINE [facility] [place] [facility] Apr 06, 2024 01:30 PM AMBULATORY - MEDICINE [facility] [place] [facility] May 30, 2024 08:30 AM AMBULATORY - MEDICINE [facility] [place] [facility] May 30, 2024 09:30 AM AMBULATORY - MEDICINE [facility] [place] [facility] Jun 01, 2024 10:00 AM AMBULATORY - MEDICINE [facility] [place] [facility] Jun 01, 2024 11:30 AM AMBULATORY - MEDICINE [facility] [place] [facility] Jun 28, 2024 11:30 AM AMBULATORY - MEDICINE [facility] [place] [facility] Jul 08, 2024 10:30 AM AMBULATORY - MEDICINE [facility] [place] [facility] Jul 13, 2024 09:30 AM AMBULATORY - MEDICINE [facility] [place] [facility] Aug 12, 2024 09:30 AM AMBULATORY - MEDICINE [place] [facility] [place] [facility] Lab Results: +/- 30 days of [...] 2024 09:27 AM [facility] [place] [facility] HEMOGLOBIN A1C PANEL Specimen Type: BLOOD [...] Dec 10, 2023 06:17 PM Reporting Lab: [facility] [address] [id number] Performing Lab: [address] [address] HEMOGLOBIN A1C 6.2 H 4.0-5.6 Feb 16, 2024 09:27 AM [facility] BASIC METABOLIC PANEL (non-fasting) Specimen Type: SERUM No comment entered. Ordering Provider: KIMBER MACK Report Released Date/Time: Dec 10, 2023 06:17 PM Reporting Lab: [address] [address] Performing Lab: [address] [address] UREA NITROGEN 11 mg/dL 7-25 GLUCOSE 112 [...] 27, 2023 11:00 AM VA-TOBACCO FORMER USER [facility] Tobacco Use History This section includes a history of the smoking, or tobacco-related health factors, that were collected on or before the date of the Encounter. The data comes from the [place] facility where the Encounter took place. Date/Time Smoking Status/Tobac co Use Comment Facility Nov 27, 2023 11:00 AM VA-TOBACCO QUIT 15 [facility] OR [facility] Dec 02, 2022 08:00 AM [facility]AC[facility] Dec 02, 2022 08:00 AM VA-TOBACCO QUIT 15 YRS OR MORE [facility] Nov 05, 2021 10:30 AM VA-TOBACCO [facility] Nov 05, 2021 10:30 AM VA-TOBACCO QUIT 1 TO < 5 YRS [facility] Sep 14, 2020 02:00 PM [facility]AC[facility] Sep 14, 2020 02:00 PM VA-TOBACCO QUIT 5 TO < 15 YRS [facility] Jan 22, 2018 03:40 PM QUIT TOBACCO USE > 7 YEARS AGO [facility] Jun 04, 2016 02:01 PM CURRENT SMOKER been smoking pass 20 yrs [facility] Jun 04, 2016 02:01 PM V1-PT DECLINES REF TO TOBACCO CESS [facility] Jun 04, 2016 02:01 PM V1-PT THINKING ABOUT QUIT TOBACCO USE [facility] Jul 18, 2014 03:31 PM V1-PT DECLINES REF TO TOBACCO CESS [facility] Jul 18, 2014 03:31 PM V1-PT DECLINES TOBACCO CESSATION MEDS [facility] Jul 18, 2014 03:31 PM V1-PT NOT INTERESTED IN QUIT TOBACCO USE [facility] Jan 09, 2014 10:43 AM CURRENT SMOKER pt smokes 1 pk of cigarettes per day. [facility] Jan 09, 2014 10:43 AM V1-PT THINKING ABOUT QUIT TOBACCO USE [facility] [place] [facility] Aug 28, 2003 10:47 AM CURRENT SMOKER one pack q 6 days - he has cut down from 3 PPD. He is in the process of quitting [facility] Encounter Notes: All associated encounter notes This section contains the clinical notes associated to the Encounter. Date/Time Encounter Note(s) Provider Source Feb 15, 2024 09:10 AM ADDENDUM: LOCAL TITLE: Addendum STANDARD TITLE: ADDENDUM DATE OF NOTE: FEB 15, 2024@09:10:14 ENTRY DATE: FEB 15, 2024@09:10:15 AUTHOR: LINDA PERSON COSIGNER: URGENCY: STATUS: COMPLETED touch up worker please schedule FTF visit with pt for continuation of care of dm management as requested by Dr. Mack- if possible maybe pt could be seen when he comes to get labs drawn? as requested. /jerry PERSON PHARMD,[facility] CLINICAL PHARMACY PRACTITIONER Signed: 02/15/2024 09:12 Receipt Acknowledged By: 02/15/2024 09:32 /gaetano/ CARLOS RIVAS Clinical Telecom Engineer --- Original Document --- 02/12/24 NOTE: [place] nurse. Kindly let pt know that in order to be able to refill metformin, there must be a kidney function blood test within past two months. Please have labs drawn, and let me know so that I can refill medication. Thank you. /jerry AMCK MD STAFF PHYSICIAN Signed: 02/12/2024 15:00 Receipt Acknowledged By: * AWAITING SIGNATURE * ALIX ELLIOTT 02/12/2024 ADDENDUM STATUS: COMPLETED Pt would be a good candidate for follow up in [facility]. /jerry MACK MD STAFF PHYSICIAN Signed: 02/12/2024 15:03 Receipt Acknowledged By: 02/15/2024 09:10 /jerry PERSON PHARMD,[facility] CLINICAL PHARMACY PRACTITIONER 02/15/2024 ADDENDUM STATUS: COMPLETED Telephone call to . Left general message regarding above. Will try again at another time. /jerry ELLIOTT LPN Specialty Care Signed: 02/15/2024 09:10 LINDA PERSON [facility] Feb 12, 2024 03:02 PM ADDENDUM: LOCAL TITLE: Addendum STANDARD TITLE: ADDENDUM DATE OF NOTE: FEB 12, 2024@15:02:01 ENTRY DATE: FEB 12, 2024@15:02:03 AUTHOR: KIMBER MACKIGNER: URGENCY: STATUS: COMPLETED Pt would be a good candidate for follow up in [facility]. /gaetano/ KIMBER MACK MD STAFF PHYSICIAN Signed: 02/12/2024 15:03 Receipt Acknowledged By: 02/15/2024 09:10 /gaetano/ LINDA PERSON, PHARMD,[facility] CLINICAL PHARMACY PRACTITIONER --- Original Document --- 02/12/24 NOTE: [place] nurse. Kindly let pt know that in order to be able to refill metformin, there must be a kidney function blood test within past two months. Please have labs drawn, and let me know so that I can refill medication. Thank you. /jerry MACK MD STAFF PHYSICIAN Signed: 02/12/2024 15:00 Receipt Acknowledged By: * AWAITING SIGNATURE * ALIX ELLIOTT 02/15/2024 ADDENDUM STATUS: COMPLETED Telephone call to [place]. Left general message regarding above. Will try again at another time. /gaetano/ ALIX ELLIOTT LPN Specialty Care Signed: 02/15/2024 09:10 02/15/2024 ADDENDUM STATUS: UNSIGNED You may not VIEW this UNSIGNED Addendum. KIMBER MACK [facility] [place] [facility] Feb 12, 2024 02:58 PM PHYSICIAN NOTE: LOCAL TITLE: NOTE STANDARD TITLE: PHYSICIAN NOTE DATE OF NOTE: FEB 12, 2024@14:58 ENTRY DATE: FEB 12, 2024@14:58:36 AUTHOR: KIMBER MACKIGNER: URGENCY: STATUS: COMPLETED NOTE Has ADDENDA [place] nurse. Kindly let pt know that in order to be able to refill metformin, there must be a kidney function blood test within past two months. Please have labs drawn, and let me know so that I can refill medication. Thank you. /jerry MACK MD STAFF PHYSICIAN Signed: 02/12/2024 15:00 Receipt Acknowledged By: 02/16/2024 13:12 /gaetano/ ALIX ELLIOTT LPN Specialty Care 02/12/2024 ADDENDUM STATUS: COMPLETED Pt would be a good candidate for follow up in [facility]. /jerry MACK MD STAFF PHYSICIAN Signed: 02/12/2024 15:03 Receipt Acknowledged By: 02/15/2024 09:10 /gaetano/ LINDA PERSON PHARMD,BCPS CLINICAL PHARMACY PRACTITIONER 02/15/2024 ADDENDUM STATUS: COMPLETED Telephone call to [place]. Left general message regarding above. Will try again at another time. /gaetano/ ALIX ELLIOTT LPN Specialty Care Signed: 02/15/2024 09:10 02/15/2024 ADDENDUM STATUS: COMPLETED touch up worker please schedule FTF visit with pt for continuation of care of dm management as requested by Dr. Mack- if possible maybe pt could be seen when he comes to get labs drawn? as requested. /jerry PERSON PHARMD,BCPS CLINICAL PHARMACY PRACTITIONER Signed: 02/15/2024 09:12 Receipt Acknowledged By: 02/15/2024 09:32 /gaetano/ CARLOS RIVAS Clinical Telecom Engineer 02/16/2024 ADDENDUM STATUS: UNSIGNED You may not VIEW this UNSIGNED Addendum. KIMBER MACK [facility]
--- OUTSIDE RECORDS SUMMARY | 2024-11-01 07:58 | XMS_ITS | Encounter Summary ---
Author Name [facility] [place] [facility] [place] Address [address] [place] [address] Care Team Providers Care Spark Plug Tester Name Role Phone ELIZABET ROBINS Primary Care [...] Paul's Name Patient's Relationship to Policy Paul [facility] CE ORGANIZ [facility] AC Apr 18, 2018 [id number] [phone] WILLIS,MAR JUDITH SPOUSE ANTHEM BCBS OF [place] (BLUECARD) [facility] CE ORGANIZ [facility] Apr 18, 2018 [id number] WILLIS,MAR JUDITH SPOUSE BCBS [facility] CE ORGANIZ [facility] Apr 18, 2018 [id number] [phone] WILLIS,MAR JUDITH SPOUSE BCBS OF [facility] CE ORGANIZ [facility] Apr 18, 2018 [id number] WILLIS,MAR JUDITH PATIENT BCBS OF [facility] CE ORGANIZ [facility]ENDA MCC[facility]E [facility] Apr 18, 2018 [id number] WILLIS,MAR JUDITH SPOUSE BCBS OF [place] PREFERRED PROVIDER ORGANIZAT ION (PPO) [facility]DA MCCAB[facility] AC Apr 18, 2018 [id number] WILLIS,MAR JUDITH SPOUSE BCBS OF [facility] CE ORGANIZ BRENDA MCCABE [facility] ACT Apr 18, 2018 [id number] WILLIS,MAR JUDITH SPOUSE BCBS OF [facility] CE ORGANIZ BRENDA MCCABE [facility] AC Apr 18, 2018 [id number] [phone] WILLIS,MAR JUDITH SPOUSE [place] PRESCRIPT ION RX22M B Oct 19, 2022 [id number] [phone] WILLIS,MAR JUDITH SPOUSE [place] PRESCRIPT ION RX22M A Oct 19, 2022 RX22MA [id number] WILLIS,LAVELLE AEL PATIENT [place] PRESCRIPT ION RX22M B Oct 19, 2022 RX22MB [id number] WILLIS,LAVELLE AEL PATIENT [place] PRESCRIPT ION [facility]DA MCCAB[facility] AC Oct 19, 2022 [phone] WILLIS,LAVELLE AEL SPOUSE [place] PRESCRIPT ION RX Oct 19, 2022 [id number] WILLIS,MAR JUDITH SPOUSE [place] PRESCRIPT [place] Oct 19, 2022 [id number] WILLIS, SPOUSE [place] ([id number]) PRESCRIPT ION BCBS OF [place] Oct 19, 2022 [id number] [phone] WILLIS,MAR JUDITH SPOUSE [place] BC[place] ([facility] CE ORGANIZ BRENDA MCCABE [facility] AC Apr 18, 2018 [id number] WILLIS,EDILBERTO SOTELOZA SPOUSE [employer] PRESCRIPT ION BCBS ID 2018 [id number] WILLIS,EDILBERTO WONG SPOUSE [employer] ([id number]) PRESCRIPT ION Apr 18, 2018 L4TA [id number] WILLIS,EDILBERTO SOTELOZA SPOUSE [employer] ([id number]) PRESCRIPT ION L4TA* Apr 18, 2020 L4TA [id number] WILLISEDILBERTO SPOUSE [employer] ([id number]) PRESCRIPT ION L4TA Apr 18, 2018 L4TA [id number] WILLIS,EDILBERTO WONG SPOUSE [employer] ([id number]) PRESCRIPT ION L4TA* Apr 18, 2018 L4TA [id number] WILLIS,EDILBERTO BROOKS SPOUSE [employer] ([id number]) PRESCRIPT ION Apr 18, 2018 L4TA [id number] WILLISEDILBERTO SPOUSE [employer] ([id number]) PRESCRIPT ION Apr 18, 2018 L4TA [id number] WILLISEDILBERTO SPOUSE [employer]-MINOR BROGATION PRESCRIPT ION [place]BS OF [place] Apr 18, 2020 L4TA [id number] WILLISEDILBERTO SPOUSE [facility] CE ORGANIZAT ION W/OUT OF NETWORK BENEFITS [facility]EN [facility] ACT Apr 18, 2018 [id number] [phone] EDILBERTO PEDRO SPOUSE [place] BCBS [facility] (BLUECARD) [facility] CE ORGANIZAT ION [facility]EN [facility] AC Apr 18, 2018 [id number] WILLISEDILBERTO SPOUSE MEDICARE (WNR) MEDICARE (M) PART A Mar 19, 1990 PART A [id number] [phone] WILLISLAVELLE AEL PATIENT MEDICARE (WNR) MEDICARE (M) PART A Mar 19, 1990 PART A [id number] WILLIS,LAVELLE AEL PATIENT MEDICARE (WNR) MEDICARE (M) PART A Mar 19, 1990 PART A [id number] WILLIS,LAVELLE AEL PATIENT MEDICARE (WNR) MEDICARE (M) PART A Mar 19, 1990 PART A [id number] WILLIS,LAVELLE AEL PATIENT MEDICARE (WNR) MEDICARE (M) PART A Mar 19, 1990 PART A [id number] [phone] WILLIS,LAVELLE AEL PATIENT MEDICARE (WNR) MEDICARE (M) PART A Mar 19, 1990 PART A [id number] [phone] WILLIS,LAVELLE AEL PATIENT MEDICARE (WNR) MEDICARE (M) PART A Mar 19, 1990 PART A [id number] [phone] [id number] WILLIS,LAVELLE AEL PATIENT MEDICARE (WNR) MEDICARE (M) PART A Mar 19, 1990 PART A [id number] [phone] WILLIS,LAVELLE AEL PATIENT MEDICARE (WNR) MEDICARE (M) PART A Mar 19, 1990 PART A [id number] WILLIS,LAVELLE AEL PATIENT MEDICARE (WNR) MEDICARE (M) PART A Mar 19, 1990 PART A [id number] [phone] WILLIS,LAVELLE AEL PATIENT MEDICARE (WNR) MEDICARE (M) PART A Mar 19, 1990 PART A [id number] WILLIS,LAVELLE AEL PATIENT Selected Encounter This section includes [place] at [place]. Date/Time Encounter Type Encounter Description Reason Pro vider Source Feb 16, 2024 12:46 PM Outpatient Encounter ENDOCRINOLOGY IHE Encounter Template [...] - MEDICINE [facility] [place] [facility] Mar 28, 2024 10:00 AM AMBULATORY - NONE [facility] [place] [facility] Mar 28, 2024 10:30 AM AMBULATORY - MEDICINE [facility] [place] [facility] Mar 28, 2024 01:00 PM AMBULATORY - MEDICINE [facility] [place] [facility] Apr 06, 2024 01:30 PM AMBULATORY - MEDICINE [facility] [place] [facility] May 30, 2024 08:30 AM AMBULATORY - MEDICINE [facility] [place] [facility] May 30, 2024 09:30 AM AMBULATORY - MEDICINE [facility] [place] [facility] Jun 01, 2024 10:00 AM AMBULATORY - MEDICINE [facility] [place] [facility] Jun 01, 2024 11:30 AM AMBULATORY - MEDICINE [facility] [place] [facility] Jun 28, 2024 11:30 AM AMBULATORY - MEDICINE [facility] [place] [facility] Jul 08, 2024 10:30 AM AMBULATORY - MEDICINE [facility] [place] [facility] Jul 13, 2024 09:30 AM AMBULATORY - MEDICINE [facility] [place] [facility] Aug 12, 2024 09:30 AM AMBULATORY - [place]ICINE [place] [facility] [place] [facility] Lab Results: +/- 30 days of [...] 2024 09:27 AM [facility] [place] [facility] HEMOGLOBIN A1C PANEL Specimen Type: BLOOD Comment: [...] Dec 10, 2023 06:17 PM Reporting Lab: [facility] [address] [address] Performing Lab: [address] [address] HEMOGLOBIN A1C 6.2 H 4.0-5.6 Feb 16, 2024 09:27 AM [facility] BASIC METABOLIC PANEL (non-fasting) Specimen Type: SERUM No comment entered. Ordering Provider: KIMBER MACK Report Released Date/Time: Dec 10, 2023 06:17 PM Reporting Lab: [address] [address] Performing Lab: [address] [address] UREA NITROGEN 11 mg/dL 7-25 GLUCOSE 112 [...] 27, 2023 11:00 AM VA-TOBACCO FORMER USER [facility] Tobacco Use History This section includes a history of the smoking, or tobacco-related health factors, that were collected on or before the date of the Encounter. The data comes from the [place] facility where the Encounter took place. Date/Time Smoking Status/Tobac co Use Comment Facility Nov 27, 2023 11:00 AM VA-TOBACCO QUIT 15 YRS OR MORE [facility] Dec 02, 2022 08:00 AM [facility] Dec 02, 2022 08:00 AM VA-TOBACCO QUIT 15 YRS OR MORE [place] [facility] Nov 05, 2021 10:30 AM [facility] Nov 05, 2021 10:30 AM VA-TOBACCO QUIT 1 TO < 5 YRS [facility] Sep 14, 2020 02:00 PM [facility] Sep 14, 2020 02:00 PM VA-TOBACCO QUIT 5 TO < 15 YRS [facility] Jan 22, 2018 03:40 PM QUIT TOBACCO USE > 7 YEARS AGO [facility] Jun 04, 2016 02:01 PM CURRENT SMOKER been smoking pass 20 yrs [facility] Jun 04, 2016 02:01 PM V1-PT DECLINES REF TO TOBACCO CESS PRGM [facility] Jun 04, 2016 02:01 PM V1-PT THINKING ABOUT QUIT TOBACCO USE [facility] Jul 18, 2014 03:31 PM V1-PT DECLINES REF TO TOBACCO CESS PR[facility] Jul 18, 2014 03:31 PM V1-PT DECLINES TOBACCO CESSATION MEDS [facility] Jul 18, 2014 03:31 PM V1-PT NOT INTERESTED IN QUIT TOBACCO USE [facility] Jan 09, 2014 10:43 AM CURRENT SMOKER pt smokes 1 pk of cigarettes per day. [facility] Jan 09, 2014 10:43 AM V1-PT THINKING ABOUT QUIT TOBACCO USE [facility] [place] [facility] Aug 28, 2003 10:47 AM CURRENT SMOKER one pack q 6 days - he has cut down from 3 PPD. He is in the process of quitting [facility] Encounter Notes: All associated encounter notes This section contains the clinical notes associated to the Encounter. Date/Time Encounter Note(s) Provider Source Feb 16, 2024 12:47 PM LETTERS: LOCAL TITLE: PATIENT LETTER (B) STANDARD TITLE: LETTERS DATE OF NOTE: FEB 16, 2024@12:47 ENTRY DATE: FEB 16, 2024@12:47:12 AUTHOR: KIMBER MACK COSIGNER: URGENCY: STATUS: COMPLETED Jan CHAYA PEDRO [address] [place], [place] [address] Dear , Your recent test results are as follows: 02/16/2024 09:27 BLOOD !! HEMOGLOBIN A1C 6.2 H % 4.0 - 5.6 02/16/2024 09:27 SERUM CREATININE, Serum 0.85 mg/dL 0.50 - 1.40 eGFR(CKD-EPI 2020 >90 mL/min Ref: >=60 SODIUM 141 mmol/L 135 - 145 POTASSIUM 4.1 mmol/L 3.5 - 5.0 CHLORIDE 107 mmol/L 100 - 110 CO2 20 mEq/L 20 - 30 UREA NITROGEN 11 mg/dL 7 - 25 GLUCOSE 112 H mg/dL 65 - 100 Your kidney function blood tests and chemistries are fine. Please call if you have any questions or concerns at [phone] option 2 option 4. Sincerely, MD FREDERICK Morocho [facility]ICE [facility]
--- OUTSIDE RECORDS SUMMARY | 2024-11-01 07:58 | XMS_ITS ---
Author Name [facility] [place] [facility] [place] Address [address] [place] [address] Care Team Providers Care Sole Seamer Name Role Phone ELIZABET ROBINS Primary Care [...] Paul's Name Patient's Relationship to Policy Paul [facility] CE ORGANIZ [facility] Apr 18, 2018 [id number] WILLIS,MAR JUDITH SPOUSE ANTHEM BCBS OF [place] (BLUECARD) [facility] CE ORGANIZ [facility] Apr 18, 2018 [id number] WILLIS,MAR JUDITH SPOUSE BCBS [facility] CE ORGANIZ [facility] SHARE ACTIV E Apr 18, 2018 [id number] [phone] WILLIS,MAR JUDITH SPOUSE BCBS OF [facility] CE ORGANIZ [facility] Apr 18, 2018 [id number] WILLIS,MAR JUDITH PATIENT BCBS OF [facility] CE ORGANIZ BRENDA MCCABE [facility] Apr 18, 2018 [id number] WILLIS,MAR JUDITH SPOUSE BCBS OF [place] PREFERRED PROVIDER ORGANIZAT ION (PPO) [facility]DA M[facility] AC Apr 18, 2018 [id number] WILLIS,MAR JUDITH SPOUSE BCBS OF [facility] CE ORGANIZ BRENDA MCCABE [facility] ACT Apr 18, 2018 [id number] WILLIS,MAR JUDITH SPOUSE BCBS OF [facility] CE ORGANIZ BRENDA MCCABE [facility] AC Apr 18, 2018 [id number] WILLIS,MAR JUDITH SPOUSE [place] PRESCRIPT ION RX22M A Oct 19, 2022 RX22MA [id number] WILLIS,LAVELLE AEL PATIENT [place] PRESCRIPT ION RX22M B Oct 19, 2022 RX22MB [id number] WILLIS,LAVELLE AEL PATIENT [place] PRESCRIPT ION [facility]DA MCC[facility] AC Oct 19, 2022 [id number] [phone] WILLIS,LAVELLE AEL SPOUSE [place] PRESCRIPT [place] OF [place] Oct 19, 2022 RX22MA [id number] WILLIS, SPOUSE [place] PRESCRIPT ION RX22M B Oct 19, 2022 RX22MB [id number] [phone] WILLIS,MAR JUDITH SPOUSE [place] PRESCRIPT ION RX Oct 19, 2022 [id number] [phone] WILLIS,MAR JUDITH SPOUSE [place] ([id number]) PRESCRIPT ION BCBS OF [place] Oct 19, 2022 [id number] WILLIS,MAR JUDITH SPOUSE [place] BCBS ([facility] CE ORGANIZ BRENDA MCCABE [facility] AC Apr 18, 2018 [id number] [phone] WILLIS,EDILBERTO WONG SPOUSE [employer] PRESCRIPT I[place] 2018 L4TA [id number] WILLIS,EDILBERTO SOTELOZA SPOUSE [employer] ([id number]) PRESCRIPT ION Apr 18, 2018 L4TA [id number] WILLIS,EDILBERTO SOTELOZA SPOUSE [employer] ([id number]) PRESCRIPT ION L4TA* Apr 18, 2020 L4TA [id number] WILLIS,EDILBERTO PALAFOXA SPOUSE [employer] ([id number]) PRESCRIPT ION L4TA* Apr 18, 2018 L4TA [id number] WILLIS,EDILBERTO PALAFOXA SPOUSE [employer] ([id number]) PRESCRIPT ION L4TA Apr 18, 2018 L4TA [id number] WILLIS,EDILBERTO WONG SPOUSE [employer] ([id number]) PRESCRIPT ION Apr 18, 2018 L4TA [id number] WILLISEDILBERTO SPOUSE [employer] ([id number]) PRESCRIPT ION Apr 18, 2018 L4TA [id number] WILLIS,EDILBERTO OWNG SPOUSE [employer]-MINOR [place] PRESCRIPT ION [place] OF [place] Apr 18, 2020 L4TA [id number] WILLIS,EDILBERTO WONG SPOUSE [facility] ([facility] CE ORGANIZAT ION W/OUT OF NETWORK BENEFITS [facility] ACT Apr 18, 2018 [id number] WILLISEDILBERTO SPOUSE [place] BCBS [facility] (BLUECAR) [facility] CE ORGANIZAT ION [facility] AC Apr 18, 2018 [id number] WILLISEDILBERTO SPOUSE MEDICARE (WNR) MEDICARE (M) PART A Mar 19, 1990 PART A [id number] WILLISLAVELLE PATIENT MEDICARE (WNR) MEDICARE (M) PART A Mar 19, 1990 PART A [id number] WILLIS,LAVELLE AEL PATIENT MEDICARE (WNR) MEDICARE (M) PART A Mar 19, 1990 PART A [id number] WILLIS,LAVELLE AEL PATIENT MEDICARE (WNR) MEDICARE (M) PART A Mar 19, 1990 PART A [id number] WILLIS,LAVELLE AEL PATIENT MEDICARE (WNR) MEDICARE (M) PART A Mar 19, 1990 PART A [id number] WILLIS,LAVELLE AEL PATIENT MEDICARE (WNR) MEDICARE (M) PART A Mar 19, 1990 PART A [id number] WILLIS,LAVELLE AEL PATIENT MEDICARE (WNR) MEDICARE (M) PART A Mar 19, 1990 PART A [id number] [phone] WILLIS,LAVELLE AEL PATIENT MEDICARE (WNR) MEDICARE (M) PART A Mar 19, 1990 PART A [id number] WILLIS,LAVELLE AEL PATIENT MEDICARE (WNR) MEDICARE (M) PART A Mar 19, 1990 PART A [id number] WILLIS,LAVELLE AEL PATIENT MEDICARE (WNR) MEDICARE (M) PART A Mar 19, 1990 PART A [id number] WILLIS,LAVELLE AEL PATIENT MEDICARE (WNR) MEDICARE () PART A Mar 19, 1990 PART A [id number] [phone] WILLIS,LAVELLE AEL PATIENT Selected Encounter This section includes the information on record at [place] for the Encounter. Date/Time Encounter Type Encounter Description Reason Provider Source Jan 13, 2024 03:00 PM INTRM OPH EXAM EST PATIENT OPTOMETRY ICD-10-CM H54.62 Unqualified visual loss, left eye, normal vision right eye DHAVAL CRAIG Encounter Template Text not used by VA Assessments - Encounter Diagnoses This section includes the primary and secondary diagnoses documented for the Encounter. Date/Time Primary/Secondary Diagnosis Diagnosis Name Provider Source Feb 09, 2024 04:21 PM PRIMARY Unqualified visual loss, left eye, normal vision right eye FLORENTINOMATTSARIAHW Baldev [place] [facility] [facility] Feb 09, 2024 04:21 PM SECONDARY Combined forms of age-related cataract, bilateral SERGEITuyetDHAVAL [place] [facility] [place] [facility] Feb 09, 2024 04:21 PM SECONDARY Dry eye syndrome of bilateral lacrimal glands FLORENTINOMATTDHAVAL Baldev [place] [facility] [facility] Plan of Treatment: Future Appointments [...] 20 appointments. The data comes from all [place] treatment facilities. Appointment Date/Time Appointment Type Appointme nt Facility Name Feb 04, 2024 08:00 AM AMBULATORY - MEDICINE [facility] [place] [facility] February 17, 2024 12:00 PM AMBULATORY - MEDICINE [facility] [place] [facility] Mar 28, 2024 10:00 AM AMBULATORY - NONE [facility] [place] [facility] Mar 28, 2024 10:30 AM AMBULATORY - MEDICINE [facility] [facility] Mar 28, 2024 01:00 PM AMBULATORY - MEDICINE [facility] [place] [facility] Apr 06, 2024 01:30 PM AMBULATORY - MEDICINE [facility] [place] [facility] May 30, 2024 08:30 AM AMBULATORY - MEDICINE [facility] [place] [facility] May 30, 2024 09:30 AM AMBULATORY - MEDICINE [facility] [place] [facility] Jun 01, 2024 10:00 AM AMBULATORY - MEDICINE [facility] [place] [facility] Jun 01, 2024 11:30 AM AMBULATORY - MEDICINE [facility] [facility] Jun 28, 2024 11:30 AM AMBULATORY - MEDICINE [facility] [place] [facility] Jul 08, 2024 10:30 AM AMBULATORY - MEDICINE [facility] [facility] Jul 13, 2024 09:30 AM [facility]ULATORY [facility]ICINE [place] [facility] Social History: Smoking Status (Most current) and Tobacco Use (All prior to encounter date) This section includes the most current, and the historical, smoking and tobacco- related health factors from the [place] facility where the Encounter took place. Current Smoking Status This section includes the most current smoking, or tobacco-related health factor, from the [place] facility where the Encounter took place. Date/Time Current Smoking Status Comment Facil it Nov 27, 2023 11:00 AM [facility] Tobacco Use History This section includes a history of the smoking, or tobacco-related health factors, that were collected on or before the date of the Encounter. The data comes from the [place] facility where the Encounter took place. Date/Time Smoking Status/Tobac co Use Comment [facility] Nov 27, 2023 11:00 AM VA-TOBACCO QUIT 15 YRS OR MORE [place] [facility] [facility] Dec 02, 2022 08:00 AM VA-TOBACCO FORMER USER [place] [facility] [facility] Dec 02, 2022 08:00 AM VA-TOBACCO QUIT 15 YRS OR MORE [facility] [place] [facility] Nov 05, 2021 10:30 AM VA-TOBACCO FORMER USER [place] [facility] [facility] Nov 05, 2021 10:30 AM VA-TOBACCO QUIT 1 TO < 5 YRS [place] [facility] [facility] Sep 14, 2020 02:00 PM VA-TOBACCO FORMER USER [place] [facility] [facility] Sep 14, 2020 02:00 PM VA-TOBACCO QUIT 5 TO < 15 YRS [place] [facility] [facility] Jan 22, 2018 03:40 PM QUIT TOBACCO USE > 7 YEARS AGO [place] [facility] [place] [facility] Jun 04, 2016 02:01 PM CURRENT SMOKER been smoking pass 20 yrs [place] [facility] [place] [facility] Jun 04, 2016 02:01 PM V1-PT DECLINES REF TO TOBACCO CESS [facility] [place] [facility] [place] [facility] Jun 04, 2016 02:01 PM V1-PT THINKING ABOUT QUIT [facility]BACCO USE [facility] Jul 18, 2014 03:31 PM V1-PT DECLINES REF TO [facility]BACCO [facility]ESS [facility] Jul 18, 2014 03:31 PM V1-PT DECLINES TOBACCO CESSATION [facility] Jul 18, 2014 03:31 PM V1-PT NOT INTERESTED IN QUIT TOBACCO USE [facility] Jan 09, 2014 10:43 AM CURRENT SMOKER pt smokes 1 pk of cigarettes per day. [facility] Jan 09, 2014 10:43 AM V1-PT THINKING ABOUT QUIT TOBACCO USE [facility] Aug 28, 2003 10:47 AM CURRENT SMOKER one pack q 6 days - he has cut down from 3 PPD. He is in the process of quitting [facility] Encounter Notes: All associated encounter notes This section contains the clinical notes associated to the Encounter. Date/Time Encounter Note(s) Provider Source Jan 13, 2024 03:23 PM OPTOMETRY NOTE: LOCAL TITLE: OPTOMETRY NOTE(T) STANDARD TITLE: OPTOMETRY NOTE DATE OF NOTE: JAN 13, 2024@15:23 ENTRY DATE: JAN 13, 2024@15:23:55 AUTHOR: DHAVAL CRAIG EXP COSIGNER: URGENCY: STATUS: COMPLETED I saw this patient in conjunction with the student and agree to the stated findings and plan after reviewing both history and repeating woods elements of physical exam. Patient presents for follow-up with history of recent TIA symptoms left side. He also has none visually significant cataracts and very dry eyes. He will continue dry eye regimen and I informed him that I would notify primary care provider for TIA symptoms and pursue with PCP. The patient will return in 6 months or sooner if any problems arise. /gaetano/ DHAVAL CRAIG OD STAFF PIPE ORGAN TECHNICIAN Signed: 01/13/2024 16:13 Receipt Acknowledged By: 01/14/2024 12:59 /gaetano/ CIERRA GREGORY Nurse Practitioner DHAVAL CRAIG [facility] Jan 13, 2024 11:51 AM OPTOMETRY NOTE: LOCAL TITLE: OPTOMETRY NOTE STANDARD TITLE: OPTOMETRY NOTE DATE OF NOTE: JAN 13, 2024@11:51 ENTRY DATE: JAN 13, 2024@11:51:39 AUTHOR: NABILA STERLING EXP COSIGNER: DHAVAL CRAIG URGENCY: STATUS: COMPLETED Active problems - Computerized Problem List is [...] prostate cancer 20. Schizoaffective disorder (SNOMED CT 62514769) 21. Alcohol Dependence 22. Periodontal Disease NEC 23. GERD 24. Seizure disorder (SNOMED CT 766496737) 25. REFRACTION DISORDER NOS Active Outpatient Medications (including Supplies): Active Outpatient Medications Status 1) ACCU-CHEK [...] ACID 9) KETOTIFEN 0.025% OPH SOLN INSTILL 1 DROP [...] MOUTH ACTIVE TWICE DAILY FOR DIABETES 14) PEG 400 0.4%/PROP GLYCOL 0.3% OPH SOLN INSTILL 1 DROP ACTIVE INTO EACH EYE FOUR TIMES DAILY NEEDED DRY EYE Allergies: AKWA TEARS, DIFLUCAN, PHENYTOIN, FLUOROMETHOLONE, REFRESH TEARS, OXYCODONE LEVETIRACETAM All medications including those prescribed by outside VA's, community providers, and all OTC meds were reviewed and reconciled with patient to the best of their abilities. This 68 year old MALE is seen today for a problem focused eye exam Chief Complaint: Pt. states that he has lost vision in his OS, lasted about 10 minutes. Happened a couple of days ago. It started with foggy vision and then he lost his vision for about 10 minutes. After the ten minutes the vision came back blurry, and then it came back completely. After his vision came back, left eye started to puff up. He has flashes in his left eye, he gets disoriented with the flashes. Flashes are longstanding and have been happening for a long time now. For the puffiness, pt. tried his dry eye regimen, and it has helped. Pt. takes antibiotic drops, ointment, artifical tears, devora mask and many other things for his dry eye regimen He had a procedure done in the last two weeks for kidney stones(January 05) and then the episode with his eye happened. Last time he had the same kidney procedure and the same thing happened with his eyes. Pt. states that he did not go to the emergency room. OHx: type II DM without retinopathy OU low risk open angle glaucoma suspect OU rosacea with meibomian gland dysfunction OU, frequent hordeola corneal map/dot dystrophy OS>OD chronic allergic conjunctivitis OU NS/cortical cataracts OU refractive error OU (+) Pain: throbbing pain in OS (-) MENDOZA: (-) Diplopia: (+) Flashes: OS longstanding (-) Floaters: (+) Amaurosis Fugax/Tia's: OS, lasted about 10 minutes, and then vision came back. (-) Eye Injury: (-) Eye Surgery: (-) TBI Family Ocular History: (+) Glaucoma - mother, father, and multiple siblings (-) ARMD/Blindness Social History: (-) Smoker/Length of Time/PPD: Current Rx with last BCVA: OD +1.25 -1.25 x 105 20/20-2 OS +1.00 -0.75 x 040 20/20-1 Add: +2.50 DVA ( )sc (x)cc OD: 20/20-1 OS: 20/20 Pupils: PERRL (-)APD EOMs: SAFE OU, (-)Pain/Diplopia CVF (facial, peripheral): FTFC OU Subjective Refraction: deferred. All the above performed by student, reviewed by attending Anterior segment: Performed by student, repeated by attending * Lids: clear OU Conj: white and quiet OU Cornea: mild EBMD OU AC: 4x4 OU Iris: flat and clear OU Lens: 2+ NS, trace Cortical Vacoules, 1+ CC OU Tonometry(icare): Performed by student, reviewed by attending * OD 10 mmHg OS 12 mmHg Time:3:09pm Fundus exam: Non dilated: Pt. deferred dilation. Performed by student, repeated by attending * Vit: clear OU C/D: 0.45/0.45 OD, 0.45/0.45 OS Disc: Rim tissue is pink and healthy OU Macula: Trace ERM OU PPole: unable to get clear views - undilated A/V: unable to get clear views - undilated Vessels: unable to get clear views - undialted Assessment/Plan: 1. Transient Vision Loss OS - pt educated on findings and the risk of stroke - pt's PCP will be notified about pt's symptoms and the need for a stroke work up - monitor condition 2. Dry Eye Syndrome OU - Pt. ed on the continuing the use of doxycycline 50mg BID - continue systane AT's BID-QID OU - pt. to continue hypochlorous acid spray 1-2x daily with warm compresses and lid massages(2x per day) 3. Epithelial Basement Membrane Dystrophy OU - Pt. ed on findings - stable findings - monitor condition 4. 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 ed on today's findings - pt. ed on importance of using sunprotection to slow progression of cataract development - no cataract surgery needed at this time - return to [facility] in 1 year or prn 5. Hyperopia with presbyopia OU - Continue with current SRx - monitor condition Not assessed today. 5. Type II diabetes without diabetic retinopathy or macular edema OU 6. Low Risk Glaucoma suspect OU, open angle with boderline findings Return to Clinic 6 months or earlier PRN Education: After discussion and answering all 's questions, [place] demonstrated and verbalized understanding of diagnosis and treatment. Yes [x] No [ ] Patient Education: Diabetes: Patient was educated regarding diabetes and related ocular complications including retinopathy and cataract formation as well as other related systemic complications. The importance of good blood sugar control, blood sugar testing as recommended by their PCP and the importance of timely follow up were all emphasized. Medication Reconciliation: Outpatient: Has the patient been taking medications as documented in the EMLR? YES: The patient has been taking medications as documented in the EMLR. Essential Medication List for Review used to complete this medication reconciliation. INCLUDED IN THIS LIST: Alphabetical list of active outpatient prescriptions dispensed from this [place] (local) and dispensed from another [place] or [facility] facility (remote) as well as inpatient orders [...] whether with a VA or non-VA provider. /gaetano/ NABILA STERLING OPTOMETRY STUDENT Signed: 01/13/2024 16:13 /gaetano/ DHAVAL CRAIG OD STAFF PIPE ORGAN TECHNICIAN Cosigned: 01/13/2024 16:14 Receipt Acknowledged By: 01/14/2024 13:00 /gaetano/ CIERRA GREGORY Nurse Practitioner NABILA STERLING [facility]
--- OUTSIDE RECORDS SUMMARY | 2024-11-01 07:58 | XMS_ITS | Encounter Summary ---
Author Name [facility] Organization [facility] Address [address] [place] [address] Care Team Providers Care Gun Profiler Name Role Phone ELIZABET ROBINS Primary Care [...] Paul's Name Patient's Relationship to Policy Paul [facility] AC Apr 18, 2018 [id number] WILLIS,MAR JUDITH SPOUSE ANTHE[place] OF [place] [facility] CE ORGANIZ [facility] Apr 18, 2018 [id number] WILLIS,MAR JUDITH SPOUSE BCBS [facility] CE ORGANIZ [facility] SHARE ACTIV E Apr 18, 2018 [id number] WILLIS,MAR JUDITH SPOUSE BCBS OF [facility] Apr 18, 2018 [id number] WILLIS,MAR JUDITH PATIENT BCBS OF [facility] CE ORGANIZ BRENDA MCCABE [facility] Apr 18, 2018 [id number] WILLIS,MAR JUDITH SPOUSE [place] OF [place] PREFERRED PROVIDER ORGANIZAT ION (PPO) BRENDA MCCABE [facility] AC Apr 18, 2018 [id number] [phone] WILLIS,MAR JUDITH SPOUSE BCBS OF [facility] CE ORGANIZ BRENDA MCCABE [facility] ACT Apr 18, 2018 [id number] WILLIS,MAR JUDITH SPOUSE BCBS OF [facility] CE ORGANIZ BRENDA MCCABE [facility] AC Apr 18, 2018 [id number] [phone] WILLIS,MAR JUDITH SPOUSE [place] PRESCRIPT ION RX22M A Oct 19, 2022 RX22MA [id number] WILLIS,LAVELLE AEL PATIENT [place] PRESCRIPT ION RX22M B Oct 19, 2022 RX22MB [id number] WILLIS,LAVELLE AEL PATIENT [place] PRESCRIPT ION RX22M B Oct 19, 2022 RX22MB [id number] WILLIS,MAR JUDITH SPOUSE [place] PRESCRIPT [place] Oct 19, 2022 RX22MA [id number] [phone] WILLIS, SPOUSE [place] PRESCRIPT ION RX Oct 19, 2022 RX22MB [id number] [phone] WILLIS,MAR JUDITH SPOUSE [place] PRESCRIPT ION BRENDA MCCABE [facility] AC Oct 19, 2022 RX22MB [phone] WILLIS,LAVELLE AEL SPOUSE [place] ([id number]) PRESCRIPT [place] Oct 19, 2022 RX22MB [id number] WILLIS,MAR JUDITH SPOUSE [place] ([facility] CE ORGANIZ BRENDA MCCABE [facility] AC Apr 18, 2018 [id number] WILLISEDILBERTO SPOUSE [employer] [place] PRESCRIPT [place] 2018 L4TA [id number] WILLISEDIBLERTO SPOUSE [employer] ([id number]) PRESCRIPT ION Apr 18, 2018 L4TA [id number] WILLIS,EDILBERTO WONG SPOUSE [employer] ([id number]) PRESCRIPT ION L4TA* Apr 18, 2020 L4TA [id number] WILLISEDILBERTO SPOUSE [employer] ([id number]) PRESCRIPT ION Apr 18, 2018 L4TA [id number] WILLISEDILBERTO SPOUSE [employer] ([id number]) PRESCRIPT ION L4TA Apr 18, 2018 L4TA [id number] WILLISEDILBERTO SPOUSE [employer] ([id number]) PRESCRIPT ION L4TA* Apr 18, 2018 L4TA [id number] WILLISEDILBERTO Lynn SPOUSE [employer] ([id number]) PRESCRIPT ION Apr 18, 2018 L4TA [id number] WILLISEDILBERTO Lynn SPOUSE [employer]-MINOR BROGATION PRESCRIPT [place] Apr 18, 2020 L4TA [id number] WILLISEDILBERTO SPOUSE [facility] CE ORGANIZAT ION W/OUT OF NETWORK BENEFITS [facility] ACT Apr 18, 2018 [id number] EDILBERTO PEDRO SPOUSE [place] BCBS [facility] (BLUECARD) [facility] CE ORGANIZAT ION [facility] Apr 18, 2018 [id number] EDILBERTO PEDRO SPOUSE MEDICARE (WNR) MEDICARE (M) PART A Mar 19, 1990 PART A [id number] WILLISLAVELLE AEL PATIENT MEDICARE (WNR) MEDICARE (M) PART A Mar 19, 1990 PART A [id number] WILLIS,LAVELLE AEL PATIENT MEDICARE (WNR) MEDICARE (M) PART A Mar 19, 1990 PART A [id number] WILLIS,LAVELLE AEL PATIENT MEDICARE (WNR) MEDICARE (M) PART A Mar 19, 1990 PART A [id number] WILLIS,LAVELLE AEL PATIENT MEDICARE (WNR) MEDICARE (M) PART A Mar 19, 1990 PART A [id number] [phone] [id number] WILLIS,LAVELLE AEL PATIENT MEDICARE (WNR) MEDICARE (M) PART A Mar 19, 1990 PART A [id number] [phone] WILLIS,LAVELLE AEL PATIENT MEDICARE (WNR) MEDICARE (M) PART A Mar 19, 1990 PART A [id number] WILLIS,LAVELLE AEL PATIENT MEDICARE (WNR) MEDICARE (M) PART A Mar 19, 1990 PART A [id number] WILLIS,LAVELLE AEL PATIENT MEDICARE (WNR) MEDICARE (M) PART A Mar 19, 1990 PART A [id number] WILLIS,LAVELLE AEL PATIENT MEDICARE (WNR) MEDICARE (M) PART A Mar 19, 1990 PART A [id number] WILLIS,LAVELLE AEL PATIENT MEDICARE (WNR) MEDICARE (M) PART A Mar 19, 1990 PART A [id number] [phone] WILLIS,LAVELLE AEL PATIENT Selected Encounter This section includes the information on record at ID for the Encounter. Date/Time Encounter Type Encounter Description Reason Pro vider Source Dec 21, 2023 11:52 AM Outpatient Encounter TELEPHONE TRIAGE IHE Encounter Template Text not used by ID Plan of Treatment: Future Appointments (+ 6 [...] 20 appointments. The data comes from all ID treatment facilities. Appointment Date/Time Appointment Type Appointme nt Facility Name Jan 13, 2024 03:00 PM AMBULATORY - MEDICINE [facility] [place] [facility] Feb 04, 2024 08:00 AM AMBULATORY - MEDICINE [facility] [place] [facility] February 17, 2024 12:00 PM AMBULATORY - MEDICINE [facility] [place] [facility] Mar 28, 2024 10:00 AM AMBULATORY - NONE [facility] [place] [facility] Mar 28, 2024 10:30 AM AMBULATORY - MEDICINE [facility] [place] [facility] Mar 28, 2024 01:00 PM AMBULATORY - MEDICINE [facility] [place] [facility] Apr 06, 2024 01:30 PM AMBULATORY - MEDICINE [facility] [place] [facility] May 30, 2024 08:30 AM AMBULATORY - MEDICINE [facility] [place] [facility] May 30, 2024 09:30 AM AMBULATORY - MEDICINE [facility] [place] [facility] Jun 01, 2024 10:00 AM AMBULATORY - MEDICINE [facility] [place] [facility] Jun 01, 2024 11:30 AM AMBULATORY - MEDICINE ID [facility] [place] [facility] Lab Results: +/- 30 days of the encounter This section includes the Chemistry and Hematology Lab Results on record with ID for the patient. Radiology Reports and Pathology Reports are provided separately, in subsequent sections. Lab Results This section contains the Chemistry/Hematology Results that were resulted 30 days before or 30 daysafter the date of the Encounter. Date/Time Source Result Type Result - Unit Interpretation Reference Range Comment Nov 27, 2023 08:43 AM [facility] [place] [facility] LIPID PANEL FASTING Specimen Type: SERUM No comment entered. Ordering Provider: KIMBER MACK Report Released Date/Time: Jun 04, 2023 10:09 AM Reporting [facility] [address] [address] Performing Lab: [address] [address] CHOLESTEROL 136 mg/dL TRIGLYCERIDE 119 mg/dL 0-150 LDL calculated 69 mg/dL 0-129 CHOL/HDL 3.2 HDL CHOLESTEROL 43 mg/dL 40-60 Nov 27, 2023 08:43 AM [facility] MICROALBUMIN CREATININE RATIO PANEL Specimen Type: URINE No comment entered. Ordering Provider: KIMBER MACK Report Released Date/Time: Jun 04, 2023 10:09 AM Reporting Lab: [facility] [address] [address] Performing Lab: [facility] [address] [address] MICROALBUMIN/C REATININE RATIO 5.7 mg/g 0-29.9 MICROALBUMIN,Q UANTITATIVE 0.6 mg/dL RR UNAVAIL CREATININE URINE 104.48 mg/dL Nov 27, 2023 08:43 AM [facility] HEMOGLOBIN A1C PANEL Specimen Type: BLOOD [...] Jun 04, 2023 10:09 AM Reporting Lab: [facility] [address] [address] Performing Lab: [facility] [address] [address] HEMOGLOBIN A1C 6.1 H 4.0-5.6 Nov 27, 2023 08:43 AM [facility] BASIC METABOLIC PANEL (fasting) Specimen Type: SERUM No comment entered. Ordering Provider: KIMBER MACK Report Released Date/Time: Jun 04, 2023 10:09 AM Reporting Lab: [facility] [address] [address] Performing Lab: [facility] [address] [address] UREA NITROGEN 12 mg/dL 7-25 GLUCOSE 133 [...] and tobacco- related health factors from the ID facility where the Encounter took place. Current Smoking Status This section includes the most current smoking, or tobacco-related health factor, from the ID facility where the Encounter took place. Date/Time Current Smoking Status Comment [facility] Nov 27, 2023 11:00 AM VA-TOBACCO FORMER USER ID [facility] [place] [facility] Tobacco Use History This section includes a history of the smoking, or tobacco-related health factors, that were collected on or before the date of the Encounter. The data comes from the ID facility where the Encounter took place. Date/Time Smoking Status/Tobac co Use Comment Facility Nov 27, 2023 11:00 AM VA-TOBACCO QUIT 15 YRS OR MORE ID [facility] [place] [facility] Dec 02, 2022 08:00 AM VA-TOBACCO FORMER USER ID [facility] [place] [facility] Dec 02, 2022 08:00 AM VA-TOBACCO QUIT 15 YRS OR MORE [facility] [place] [facility] Nov 05, 2021 10:30 AM VA-TOBACCO FORMER USER ID [facility] [place] [facility] Nov 05, 2021 10:30 AM VA-TOBACCO QUIT 1 TO < 5 YRS [facility] [place] [facility] Sep 14, 2020 02:00 PM VA-TOBACCO FORMER USER ID [facility] [place] [facility] Sep 14, 2020 02:00 PM VA-TOBACCO QUIT 5 TO < 15 YRS [facility] [place] [facility] Jan 22, 2018 03:40 PM QUIT TOBACCO USE > 7 YEARS AGO [facility] [place] [facility] Jun 04, 2016 02:01 PM CURRENT SMOKER been smoking pass 20 yrs ID [facility] [place] [facility] Jun 04, 2016 02:01 PM V1-PT DECLINES REF TO TOBACCO CESS PRGM [facility] Jun 04, 2016 02:01 PM V1-PT THINKING ABOUT QUIT TOBACCO USE [facility] Jul 18, 2014 03:31 PM V1-PT DECLINES REF TO TOBACCO CESS PRGM [facility] Jul 18, 2014 03:31 PM V1-PT DECLINES TOBACCO CESSATION MEDS [facility] Jul 18, 2014 03:31 PM V1-PT NOT INTERESTED IN QUIT TOBACCO USE [facility] Jan 09, 2014 10:43 AM CURRENT SMOKER pt smokes 1 pk of cigarettes per day. [facility] Jan 09, 2014 10:43 AM V1-PT THINKING ABOUT QUIT TOBACCO USE [facility] Aug 28, 2003 10:47 AM CURRENT SMOKER one pack q 6 days - he has cut down from 3 PPD. He is in the process of quitting [facility] Radiology Reports: +/- 30 days of [...] Encounter. The data comes from all [facility] facilities. Date/Time Radiology Report Provider Source Dec 10, 2023 10:31 AM ULTRASOUND AAA SCREENING: CHAYA PEDRO [id number] -1955 M Exm Date: DEC 10, 2023@10:31 Req Phys: ELIZABET ROBINS Pat Loc: CWM/NO/PACT 5 (Req'g Loc) Img Loc: ULTRASOUND Service: Unknown (Case [id number] COMPLETE) ULTRASOUND AAA SCREENING (US Detailed) CPT:01568 Reason for Study: US Abdomen, AAA screen Clinical History: Report Status: Verified Date Reported: DEC 10, 2023 Date Verified: DEC 10, 2023 [employer] Super[employer] E-Sig:/ES/RAYMOND LEAL JR Report: Study: AAA screening [...] Primary Interpreting Staff: RAYMOND LEAL JR, Radiologist ([employer]) /RAYMOND SHELTON JR [facility] Encounter Notes: All associated encounter notes This section contains the clinical notes associated to the Encounter. Date/Time Encounter Note(s) Provider Source Dec 22, 2023 08:25 AM ADDENDUM: LOCAL TITLE: Addendum STANDARD TITLE: ADDENDUM DATE OF NOTE: DEC 22, 2023@08:25:53 ENTRY DATE: DEC 22, 2023@08:25:54 AUTHOR: MARCIA MAURER COSIGNER: URGENCY: STATUS: COMPLETED Added dental for above alert. /gaetano/ Marcia Maurer RN Primary Care Staff Nurse Signed: 12/22/2023 08:26 Receipt Acknowledged By: 12/24/2023 09:24 /gaetano/ ATIF CHU DMD Staff Dentist 12/23/2023 11:47 /gaetano/ [facility] DIRECTOR === --- Original Document --- 12/21/23 CCC: CLINICAL TRIAGE: Patient Demographics Patient Name: CHAYA PEDRO Patient Primary Address: [address] [place] [id number] Patient Primary Phone: [phone] Patient : 1955 Patient Age: 68 Caller/Recipient Relation to Patient: Self Emergency Contact: KATIE PEDRO Nursing Plan and Disposition Other course(s) of action Generated msg to PACT/Provider Nurse Summary Nurse Summary: Patient with VA dental coverage Dentures broke over the weekend Patient needs new referral to [facility] in [facility] this practice requesting referral today to expedite patient's care PACT: Advised patient I am sending this note to PACT RN and BOSS MINER for follow-up with his request for dental referral Patient is requesting callback from PACT soon as possible Clinical Contact Center Codes Clinic/Location: V1 CWM PHONE CCC RN /gaetano/ ELLIS DUMONT CCC RN Signed: 12/21/2023 11:52 Receipt Acknowledged By: 12/22/2023 14:22 /es/ CIERRA GREGORY Nurse Practitioner 12/22/2023 08:41 /es/ DEBBIE GORMAN, MSN, RN, CNL PRIMARY CARE TEAM NURSE 12/22/2023 08:27 /es/ Marcia Maurer software support representative Staff Nurse [facility] Dec 21, 2023 11:52 AM RN PROGRESS NOTE: LOCAL TITLE: [facility]: CLINICAL TRIAGE STANDARD TITLE: RN PROGRESS NOTE DATE OF NOTE: DEC 21, 2023@11:52:47 ENTRY DATE: DEC 21, 2023@11:52:47 AUTHOR: ELLIS RIVERA EXP COSIGNER: URGENCY: STATUS: COMPLETED CCC: CLINICAL TRIAGE Has ADDENDA Patient Demographics Patient Name: CHAYA PEDRO Patient Primary Address: [address] [place] [id number] Patient Primary Phone: [phone] Patient : 1955 Patient Age: 68 Caller/Recipient Relation to Patient: Self Emergency Contact: KATIE PEDRO Nursing Plan and Disposition Other course(s) of action Generated msg to PACT/Provider Nurse Summary Nurse Summary: Patient with VA dental coverage Dentures broke over the weekend Patient needs new referral to [facility] in [facility] this practice requesting referral today to expedite patient's care PACT: Advised patient I am sending this note to PACT RN and BOSS MINER for follow-up with his request for dental referral Patient is requesting callback from PACT soon as possible Clinical Contact Center Codes Clinic/Location: V1 CWM PHONE CCC RN /gaetano/ ELLIS DUMONT CCC RN Signed: 12/21/2023 11:52 Receipt Acknowledged By: 12/22/2023 14:22 /es/ ALIZA GREGORYP Nurse Practitioner 12/22/2023 08:41 /es/ DEBBIE GORMAN, MSN, RN, CNL PRIMARY CARE TEAM NURSE 12/22/2023 08:27 /gaetano/ Marcia Maurer software support representative Staff Nurse 12/22/2023 ADDENDUM STATUS: COMPLETED Added dental for above alert. /gaetano/ Marcia Maurer RN Primary Care Staff Nurse Signed: 12/22/2023 08:26 Receipt Acknowledged By: * AWAITING SIGNATURE * ATIF CHU * AWAITING SIGNATURE * [facility] L [facility]
--- OUTSIDE RECORDS SUMMARY | 2024-11-01 07:59 | XMS_ITS | Encounter Summary ---
Author Name [facility] [place] [facility] [place] Address [address] [place] [address] Care Team Providers Care Guest Services Assistant Name Role Phone ELIZABET ROBINS Primary Care [...] [facility] CE ORGANIZ [facility] AC Apr 18, 2018 [phone] WILLIS,MAR JUDITH SPOUSE ANTHE[place] BCBS OF [place] ([place]) [facility] CE ORGANIZ [facility] Apr 18, 2018 [id number] [phone] WILLIS,MAR JUDITH SPOUSE BCBS [facility] CE ORGANIZ [facility] SH[facility] ACTIV E Apr 18, 2018 [id number] WILLIS,MAR JUDITH SPOUSE BCBS OF [facility] CE ORGANIZ [facility] Apr 18, 2018 [id number] WILLIS,MAR JUDITH PATIENT BCBS OF [facility] CE ORGANIZ [facility] Apr 18, 2018 [id number] WILLIS,MAR JUDITH SPOUSE BC[place] OF [place] PREFERRED PROVIDER ORGANIZAT ION (PPO) [facility] AC Apr 18, 2018 [id number] WILLIS,MAR JUDITH SPOUSE BCBS OF [facility] CE ORGANIZ [facility] ACT Apr 18, 2018 [id number] WILLIS,MAR JUDITH SPOUSE BCBS OF [facility] CE ORGANIZ [facility] AC Apr 18, 2018 [id number] WILLIS,MAR JUDITH SPOUSE [place] PRESCRIPT ION [facility] AC Oct 19, 2022 [id number] [phone] WILLIS,LAVELLE AEL SPOUSE [place] PRESCRIPT ION RX22M A Oct 19, 2022 [id number] WILLIS,LAVELLE AEL PATIENT [place] PRESCRIPT ION RX22M B Oct 19, 2022 [id number] [id number] WILLIS,LAVELLE AEL PATIENT [place] PRESCRIPT [place] Oct 19, 2022 RX22MA [id number] WILLIS, SPOUSE [place] PRESCRIPT ION RX22M B Oct 19, 2022 RX22MB [phone] WILLIS,MAR JUDITH SPOUSE [place] PRESCRIPT ION RX Oct 19, 2022 [id number] [phone] WILLIS,MAR JUDITH SPOUSE [place] ([id number]) PRESCRIPT ION BCBS OF [place] Oct 19, 2022 [id number] WILLIS,MAR JUDITH SPOUSE [place] ([place], [facility]IN [facility] CE ORGANIZ [facility] AC Apr 18, 2018 [id number] WILLIS,EDILBERTO SOTELOZA SPOUSE [employer] PRESCRIPT I[place] 2018 L4TA [id number] WILLIS,EDILBERTO SOTELOZA SPOUSE [employer] ([id number]) PRESCRIPT ION Apr 18, 2018 L4TA [id number] WILLIS,EDILBERTO SOTELOZA SPOUSE [employer] ([id number]) PRESCRIPT ION L4TA* Apr 18, 2020 L4TA [id number] WILLIS,EDILBERTO PALAFOXA SPOUSE [employer] ([id number]) PRESCRIPT ION L4TA* Apr 18, 2018 L4TA [id number] WILLIS,EDILBERTO PALAFOXA SPOUSE [employer] ([id number]) PRESCRIPT ION L4TA Apr 18, 2018 L4TA [id number] WILLIS,EDILBERTO SOTELOZA SPOUSE [employer] ([id number]) PRESCRIPT ION Apr 18, 2018 L4TA [id number] WILLISEDILBERTOZA SPOUSE [employer] ([id number]) PRESCRIPT ION Apr 18, 2018 L4TA [id number] WILLIS,EDILBERTO WONG SPOUSE [employer]-MINOR BROGATION PRESCRIPT ION [place] Apr 18, 2020 L4TA [id number] WILLIS,EDILBERTO WONG SPOUSE [place] [facility] CE ORGANIZAT ION W/OUT OF NETWORK BENEFITS [facility] ACT Apr 18, 2018 [id number] WILLISEDILBERTO SPOUSE [place] BCBS [facility] ([facility]UEC[facility]) HEALTH [facility] CE ORGANIZAT ION [facility] AC Apr 18, 2018 [id number] WILLISEDILBERTO SPOUSE MEDICARE (WNR) MEDICARE (M) PART A Mar 19, 1990 PART A [id number] WILLISLAVELLE AEL PATIENT MEDICARE (WNR) MEDICARE (M) PART A Mar 19, 1990 PART A [id number] WILLIS,LAVELLE AEL PATIENT MEDICARE (WNR) MEDICARE (M) PART A Mar 19, 1990 PART A [id number] WILLIS,LAVELLE AEL PATIENT MEDICARE (WNR) MEDICARE (M) PART A Mar 19, 1990 PART A [id number] WILLIS,LAVELLE AEL PATIENT MEDICARE (WNR) MEDICARE (M) PART A Mar 19, 1990 PART A [id number] WILLIS,LAVELLE AEL PATIENT MEDICARE (WNR) MEDICARE (M) PART A Mar 19, 1990 PART A [id number] WILLIS,LAVELLE AEL PATIENT MEDICARE (WNR) MEDICARE (M) PART A Mar 19, 1990 PART A [id number] WILLIS,LAVELLE AEL PATIENT MEDICARE (WNR) MEDICARE (M) PART A Mar 19, 1990 PART A [id number] [phone] WILLIS,LAVELLE AEL PATIENT MEDICARE (WNR) MEDICARE (M) PART A Mar 19, 1990 PART A [id number] WILLIS,LAVELLE AEL PATIENT MEDICARE (WNR) MEDICARE (M) PART A Mar 19, 1990 PART A [id number] [phone] WILLIS,LAVELLE AEL PATIENT MEDICARE (WNR) MEDICARE (M) PART A Mar 19, 1990 PART A [id number] [phone] WILLIS,LAVELLE AEL PATIENT Selected Encounter This section includes the information on record at [place] for the Encounter. Date/Time Encounter Type Encounter Description Reason Pro vider Source Mar 21, 2024 12:00 AM Outpatient Encounter EVENT (HISTORICAL) IHE Encounter Template Text not used by [place] Plan of Treatment: Future Appointments (+ 6 [...] AMBULATORY - NONE [facility] Mar 28, 2024 10:30 AM AMBULATORY - MEDICINE [facility] Mar 28, 2024 01:00 PM AMBULATORY - MEDICINE [facility] Apr 06, 2024 01:30 PM AMBULATORY - MEDICINE [facility] May 30, 2024 08:30 AM AMBULATORY - MEDICINE [facility] May 30, 2024 09:30 AM AMBULATORY - MEDICINE [facility] Jun 01, 2024 10:00 AM AMBULATORY - MEDICINE [facility] Jun 01, 2024 11:30 AM AMBULATORY - MEDICINE [facility] Jun 28, 2024 11:30 AM AMBULATORY - MEDICINE [facility] Jul 08, 2024 10:30 AM AMBULATORY - MEDICINE [facility] Jul 13, 2024 09:30 AM AMBULATORY - MEDICINE [facility] Aug 12, 2024 09:30 AM AMBULATORY - MEDICINE [facility] Aug 22, 2024 09:00 AM AMBULATORY - MEDICINE [facility] Social History: Smoking Status (Most current) and [...] 27, 2023 11:00 AM VA-TOBACCO FORMER USER [facility] Tobacco Use History This section includes a history of the smoking, or tobacco-related health factors, that were collected on or before the date of the Encounter. The data comes from the [place] facility where the Encounter took place. Date/Time Smoking Status/Tobac co Use Comment Facility Nov 27, 2023 11:00 AM VA-TOBACCO QUIT 15 YRS OR MORE [facility] Dec 02, 2022 08:00 AM VA-TOBACCO FORMER USER [facility] Dec 02, 2022 08:00 AM VA-TOBACCO QUIT 15 YRS OR MORE [facility] Nov 05, 2021 10:30 AM VA-TOBACCO FORMER USER [facility] Nov 05, 2021 10:30 AM [place] QUIT 1 TO < 5 YRS [facility] Sep 14, 2020 02:00 PM VA-TOBACCO FORMER USER [facility] Sep 14, 2020 02:00 PM VA-TOBACCO QUIT 5 TO < 15 YRS [facility] Jan 22, 2018 03:40 PM QUIT TOBACCO USE > 7 YEARS AGO [facility] Jun 04, 2016 02:01 PM CURRENT SMOKER been smoking pass 20 yrs [facility] Jun 04, 2016 02:01 PM V1-PT DECLINES REF TO TOBACCO CESS PRGM [facility] Jun 04, 2016 02:01 PM V1-PT THINKING ABOUT QUIT TOBACCO USE [facility] Jul 18, 2014 03:31 PM V1-PT DECLINES REF TO TOBACCO CESS PRGM [facility] Jul 18, 2014 03:31 PM V1-PT DECLINES TOBACCO CESSATION MEDS [facility] Jul 18, 2014 03:31 PM V1-PT NOT INTERESTED IN QUIT TOBACCO USE [facility] Jan 09, 2014 10:43 AM CURRENT SMOKER pt smokes 1 pk of cigarettes per day. [facility] Jan 09, 2014 10:43 AM V1-PT THINKING ABOUT QUIT TOBACCO USE [facility] Aug 28, 2003 10:47 AM CURRENT SMOKER one pack q 6 days - he has cut down from 3 PPD. He is in the process of quitting [facility] Radiology Reports: +/- 30 days of [...] the Encounter. The data comes from all [place] treatment facilities. Date/Time Radiology Report Provider Source Mar 28, 2024 09:45 AM LDCT LUNG CANCER SCREENING: CHAYA PEDRO [id number] -[id number] M Exm Date: MAR 28, 2024@09:45 Req Phys: ELIZABET ROBINS Loc: ZZCWM/NO/LCS ADMIN (Req'g Loc) Img Loc: NHM/CT Service: Unknown [facility] , (Case 16 COMPLETE) LDCT LUNG CANCER SCREENING (CT Detailed) CPT:19806 Reason for Study: LUNG CANCER SCREENING Clinical History: QUIT SMOKING IN 2013 BASELINE LCS LDCT 03/30/2023: LUNG RADS 1 no new or concerning pulmonary mass or nodules. Plan for repeat in 12 months. Report Status: Verified Date Reported: MAR 28, 2024 Date Verified: MAR 28, 2024 [employer] Claims Adjuster E-Sig:/ES/RAYMOND LEAL JR Report: Study: Lung cancer screening CT of the chest. Provided History: Lung cancer screening. Comparison: CT scan of the chest from March 30, 2023 and August 28, 2015. Technique: 1 mm lung algorithm and 3 mm soft tissue algorithm axial reconstructions from the lung apices through the lung bases without the administration of intravenous contrast as per standard department protocol for lung cancer screening. Subsequently, sagittal and coronal reformats were generated. MIP images also provided and reviewed. Secondary computer-aided detection with post-processing from [employer] is used. The lack of intravenous contrast inherently limits the evaluation of hilar structures, vascular structures, and abnormal enhancement patterns. Lower than standard dose was utilized limiting sensitivity for fine parenchymal detail. Dose Parameters: CTDI(vol): 2.6 mGy. DLP: 97.3 mGy*cm. Findings: Lungs: Emphysema: Mild centrilobular and paraseptal emphysematous changes with associated scattered parenchymal scarring is unchanged. Index Nodule: None. Other Nodules: None. Lungs/airway findings: No acute pulmonary process or pleural effusion is identified. There are mild dependent changes present at the lung bases. The tracheobronchial tree is patent and normal. Mild stable pleural thickening at the left lung base. Heart, mediastinum and lymph nodes: The heart size is normal. No pericardial effusion identified. Minimally enlarged 4.1 cm AP stable ascending thoracic aortic aneurysm. No mediastinal or hilar lymphadenopathy by size criteria. No axillary lymphadenopathy by size criteria. Normal caliber pulmonary arteries. Visualized coronary artery calcifications: Atherosclerotic changes of the aorta and coronary arteries. Upper abdomen: Hepatic steatotic changes. Bones and soft tissues: Normal age-related degenerative changes present. No acute bony abnormality identified. Other findings: None. Impression: No acute pulmonary process or significant interval change. Lung-RADS Assessment: Category 1, Negative. Recommendation: Continue annual screening with lung cancer screening CT in 12 months. Other Significant Findings and Recommendations: None. Primary Diagnostic Code: No immediate attention required Secondary Diagnostic Codes: LUNGRADS 1: NEGATIVE Primary Interpreting Staff: RAYMOND LEAL JR, Radiologist (C[employer] Insurance Claims Adjuster) /RAYMOND SHELTON JR [facility] Encounter Notes: All associated encounter notes This section contains the clinical notes associated to the Encounter. Date/Time Encounter Note(s) Provider Source Mar 21, 2024 12:00 AM NONVA NOTE: LOCAL TITLE: NON-VA HOSPITALIZATIONS/ER STANDARD TITLE: NONVA NOTE DATE OF NOTE: MAR 21, 2024 ENTRY DATE: MAR 29, 2024@08:34:26 AUTHOR: ADRIANNE ALFARO EXP COSIGNER: URGENCY: STATUS: COMPLETED VistA Imaging - Scanned Document SCANNED DOCUMENT SIGNATURE NOT REQUIRED Electronically Filed: 03/29/2024 by: ADRIANNE CHACON [facility]
--- OUTSIDE RECORDS SUMMARY | 2024-11-01 07:59 | XMS_ITS | Encounter Summary ---
Author Name [facility] [place] [facility] [place] [facility] [place] [facility] [place] Address [address] [place] [address] Care Team Providers Care Mother Repairer Name Role Phone ELIZABET ROBINS Primary Care [...] Paul's Name Patient's Relationship to Policy Paul [facility] CE ORGANIZ [facility] AC Apr 18, 2018 [id number] WILLIS,MAR JUDITH SPOUSE ANTHEM BCBS OF [place] (BLUECARD) [facility] MAINCHRISTINA CE ORGANIZ [facility] Apr 18, 2018 [id number] [phone] WILLIS,MAR JUDITH SPOUSE BCBS [facility] CE ORGANIZ [facility] SHARE ACTIV E Apr 18, 2018 [id number] WILLIS,MAR JUDITH SPOUSE [facility] Apr 18, 2018 [id number] [phone] WILLIS,MAR JUDITH PATIENT BCBS OF [facility] CE ORGANJAVY [facility] Apr 18, 2018 [id number] [id number] WILLIS,MAR JUDITH SPOUSE [place] OF [place] PREFERRED PROVIDER ORGANIZAT ION (PPO) BRENDA [facility] AC Apr 18, 2018 [id number] WILLIS,MAR JUDITH SPOUSE BCBS OF [facility] CE ORGANIZ BR[facility]DA [facility] ACT Apr 18, 2018 [id number] WILLIS,MAR JUDITH SPOUSE BCBS OF [facility] CE ORGANJAVY [facility] AC Apr 18, 2018 [id number] WILLIS,MAR JUDITH SPOUSE [place] PRESCRIPT ION RX22M A Oct 19, 2022 [id number] [id number] WILLIS,LAVELLE AEL PATIENT [place] PRESCRIPT ION RX22M B Oct 19, 2022 [id number] [id number] WILLIS,LAVELLE AEL PATIENT [place] PRESCRIPT ION [facility] AC Oct 19, 2022 [phone] WILLIS,LAVELLE AEL SPOUSE [place] PRESCRIPT [place] Oct 19, 2022 RX22MA [id number] WILLIS, SPOUSE [place] PRESCRIPT ION RX22M B Oct 19, 2022 RX22MB [phone] [phone] WILLIS,MAR JUDITH SPOUSE [place] PRESCRIPT ION RX Oct 19, 2022 [id number] [phone] WILLIS,MAR JUDITH SPOUSE [place] ([id number]) PRESCRIPT [place] Oct 19, 2022 [id number] WILLIS,MAR JUDITH SPOUSE [place] ([facility] CE ORGANIZ BRENDA [facility] AC Apr 18, 2018 [id number] WILLIS,EDILBERTO SOTELOZA SPOUSE [employer] [place] PRESCRIPT [place] 2018 L4TA [id number] WILLIS,EDILBERTO SOTELOZA SPOUSE [employer] ([id number]) PRESCRIPT ION Apr 18, 2018 L4TA [id number] WILLIS,EDILBERTO SOTELOZA SPOUSE [employer] ([id number]) PRESCRIPT ION L4TA* Apr 18, 2020 L4TA [id number] WILLIS,EDILBERTO PALAFOXA SPOUSE [employer] ([id number]) PRESCRIPT ION L4TA* Apr 18, 2018 L4TA [id number] WILLIS,EDILBERTO PALAFOXA SPOUSE [employer] ([id number]) PRESCRIPT ION L4TA Apr 18, 2018 L4TA [id number] WILLIS,EDILBERTO WONG SPOUSE [employer] ([id number]) PRESCRIPT ION Apr 18, 2018 L4TA [id number] 32 WILLISEDILBERTO SPOUSE [employer] ([id number]) PRESCRIPT ION Apr 18, 2018 L4TA [id number] WILLIS,EDILBERTO WONG SPOUSE [employer]-MINOR BROG[place] PRESCRIPT I[place] OF [place] Apr 18, 2020 L4TA [id number] WILLIS,EDILBERTO WONG SPOUSE [facility] ([facility]) [facility] CE ORGANIZAT ION W/OUT OF NETWORK BENEFITS [facility]TRISTEN [facility] ACT Apr 18, 2018 [id number] WILLISEDILBERTO SPOUSE [place] BCBS [facility] (BLUECARD) [facility] CE ORGANIZAT ION [facility] AC Apr 18, 2018 [id number] WILLIS,EDILBERTO WONG SPOUSE MEDICARE (WNR) MEDICARE (M) PART A Mar 19, 1990 PART A [id number] LAVELLE PEDRO AEL PATIENT MEDICARE (WNR) MEDICARE (M) PART A Mar 19, 1990 PART A [id number] WILLIS,LAVELLE AEL PATIENT MEDICARE (WNR) MEDICARE (M) PART A Mar 19, 1990 PART A [id number] WILLIS,LAVELLE AEL PATIENT MEDICARE (WNR) MEDICARE (M) PART A Mar 19, 1990 PART A [id number] WILLIS,LAVELLE AEL PATIENT MEDICARE (WNR) MEDICARE (M) PART A Mar 19, 1990 PART A [id number] WILLIS,LAVELLE AEL PATIENT MEDICARE (WNR) MEDICARE (M) PART A Mar 19, 1990 PART A [id number] [id number] WILLIS,LAVELLE AEL PATIENT MEDICARE (WNR) MEDICARE (M) PART A Mar 19, 1990 PART A [id number] WILLIS,LAVELLE AEL PATIENT MEDICARE (WNR) MEDICARE (M) PART A Mar 19, 1990 PART A [id number] [id number] WILLIS,LAVELLE AEL PATIENT MEDICARE (WNR) MEDICARE (M) PART A Mar 19, 1990 PART A [id number] WILLIS,LAVELLE AEL PATIENT MEDICARE (WNR) MEDICARE (M) PART A Mar 19, 1990 PART A [id number] WILLIS,LAVELLE AEL PATIENT MEDICARE (WNR) MEDICARE (M) PART A Mar 19, 1990 PART A [id number] WILLIS,LAVELLE AEL PATIENT Selected Encounter This section includes the information on record at [place] for the Encounter. Date/Time Encounter Type Encounter Description Reason Pro vider Source Apr 06, 2024 03:01 PM Outpatient Encounter ADMIN PAT ACTIVTIES (MASNONCT) [...] Date/Time Appointment Type Appointme nt Facility Name May 30, 2024 08:30 AM [place] [facility] [place] [facility] May 30, 2024 09:30 AM [place] [facility] [place] [facility] Jun 01, 2024 10:00 AM [place] [facility] [place] [facility] Jun 01, 2024 11:30 AM AM[place]ULATORY [place]ICINE [place] [facility] [place] [facility] Jun 28, 2024 11:30 AM [place] [facility] [place] [facility] Jul 08, 2024 10:30 AM [place] [facility] [place] [facility] Jul 13, 2024 09:30 AM [place] [facility] [place] [facility] Aug 12, 2024 09:30 AM [place] [facility] [place] [facility] Aug 22, 2024 09:00 AM [place] [place] [facility] Sep 21, 2024 09:00 AM [place] [place] [facility] Sep 21, 2024 10:00 AM [place] [facility] [place] [facility] Social History: Smoking Status (Most [...] place. Date/Time Current Smoking Status Comment [facility] Nov 27, 2023 11:00 AM [place]-[facility]AC[place] [facility] Tobacco Use History This section includes a history of the smoking, or tobacco-related health factors, that were collected on or before the date of the Encounter. The data comes from the [place] facility where the Encounter took place. Date/Time Smoking Status/Tobac co Use Comment Facility Nov 27, 2023 11:00 AM [place]-TO[place]AC[place] QUIT 15 YRS OR MORE [facility] [place] [facility] Dec 02, 2022 08:00 AM VA-TOBACCO FORMER USER [facility] Dec 02, 2022 08:00 AM VA-TOBACCO QUIT 15 YRS OR MORE [facility] [place] [place] [facility] Nov 05, 2021 10:30 AM [facility]ACCO [facility] Nov 05, 2021 10:30 AM VA-TOBACCO QUIT 1 TO < 5 YRS [facility] Sep 14, 2020 02:00 PM [facility] Sep 14, 2020 02:00 PM VA-TOBACCO QUIT 5 TO < 15 YRS [facility] Jan 22, 2018 03:40 PM QUIT TOBACCO USE > 7 [facility] Jun 04, 2016 02:01 PM CURRENT SMOKER been smoking pass 20 yrs [facility] Jun 04, 2016 02:01 PM V1-PT DECLINES REF TO TOBACCO CESS [facility] Jun 04, 2016 02:01 PM V1-PT THINKING ABOUT QUIT [facility]ACCO [facility] Jul 18, 2014 03:31 PM V1-PT DECLINES REF TO TOBACCO CESS PRGM [facility] Jul 18, 2014 03:31 PM V1-PT DECLINES TOBACCO CESSATION [facility] Jul 18, 2014 03:31 PM V1-PT NOT INTERESTED IN QUIT TOBACCO USE [facility] [place] [place] [facility] Jan 09, 2014 10:43 AM CURRENT SMOKER pt smokes 1 pk of cigarettes per day. [facility] Jan 09, 2014 10:43 AM V1-PT THINKING ABOUT QUIT TOBACCO [facility] Aug 28, 2003 10:47 AM CURRENT SMOKER one pack q 6 days - he has cut down from 3 PPD. He is in the process of quitting [facility] Radiology Reports: +/- 30 days of the [...] the Encounter. The data comes from all [place] treatment facilities. Date/Time Radiology Report Provider Source Mar 28, 2024 09:45 AM LDCT LUNG CANCER SCREENING: CHAYA PEDRO [id number] M Exm Date: MAR 28, 2024@09:45 Req Phys: ELIZABET ROBINS Pat Loc: ZZCWM/NO/LCS ADMIN (Req'g Loc) Img Loc: NHM/CT Service: Unknown [place] [facility] [place] [facility] , (Case 16 COMPLETE) LDCT LUNG CANCER SCREENING (CT Detailed) CPT:78612 Reason for Study: LUNG CANCER SCREENING Clinical History: QUIT SMOKING IN 2012 BASELINE LCS LDCT 03/30/2023: LUNG RADS 1 no new or concerning pulmonary mass or nodules. Plan for repeat in 12 months. Report Status: Verified Date Reported: MAR 28, 2024 Date Verified: MAR 28, 2024 Custom Feed Mill Operator Helper E-Sig:/ES/RAYMOND LEAL JR Report: Study: Lung cancer [...] reviewed. Secondary computer-aided detection with post-processing from [employer] is used. The lack of intravenous contrast [...] Primary Interpreting Staff: RAYMOND LEAL JR, Radiologist (Custom Feed Mill Operator Helper) /RAYMOND SHELTON JR [facility] Encounter Notes: All associated encounter notes This section contains the clinical notes associated to the Encounter. Date/Time Encounter Note(s) Provider Source Apr 07, 2024 08:12 AM ADDENDUM: LOCAL TITLE: Addendum STANDARD TITLE: ADDENDUM DATE OF NOTE: APR 07, 2024@08:12:38 ENTRY DATE: APR 07, 2024@08:12:40 AUTHOR: DEBBIE GORMAN EXP COSIGNER: URGENCY: STATUS: COMPLETED Forwarding to covering provider /gaetano/ DEBBIE GORMAN, MSN, RN, CNL PRIMARY CARE TEAM NURSE Signed: 04/07/2024 08:12 Receipt Acknowledged By: 04/14/2024 15:23 /gaetano/ CIERRA GREGORY Nurse Practitioner ====== --- Original Document --- 04/06/24 V1 PHARMACY CUSTOMER CARE MEDICATION RENEWAL: Date: Mar Division: [place] Pt referred by Pharmacy Call Center for medication renewal: Non-controlled/maintenan ce medication Medications requested: [id number] ALBUTEROL 3/IPRATROP 0.5MG/3ML INHL 3ML [id number] ALBUTEROL 90MCG (CFC-F) 200D ORAL INHL Defer to primary care provider To be mailed . Please review and renew if appropriate. *This note was generated by [facility] Pharmacy Customer Care. If you have any questions or need assistance, do not contact this author. Please refer all questions to your local, on-site pharmacy departments. /jerry LAMAR Occupational Therapy Aide, [place]/Pharmacy Customer Care Signed: 04/06/2024 15:03 Receipt Acknowledged By: 04/13/2024 15:15 /gaetano/ CIERRA GREGORY Nurse Practitioner 04/07/2024 08:13 /gaetano/ DEBBIE GORMAN, MSN, RN, CNL PRIMARY CARE TEAM NURSE DEBBIE GORMAN [facility] Apr 06, 2024 03:04 PM PHARMACY NOTE: LOCAL TITLE: PHARMACY CUSTOMER CARE MEDICATION RENEWAL STANDARD TITLE: PHARMACY NOTE DATE OF NOTE: APR 06, 2024@15:04 ENTRY DATE: APR 06, 2024@15:04:25 AUTHOR: JUDY LAMAR EXP COSIGNER: URGENCY: STATUS: COMPLETED Date: Mar Division: [place] Pt referred by Pharmacy Call Center for medication renewal: Non-controlled/maintenan ce medication Medications requested: [id number] ATORVASTATIN CALCIUM 80MG TAB Defer to primary care provider To be mailed . Please review and renew if appropriate. *This note was generated by [facility] Pharmacy Customer Care. If you have any questions or need assistance, do not contact this author. Please refer all questions to your local, on-site pharmacy departments. /jerry LAMAR Occupational Therapy Aide, [place]/Pharmacy Customer Care Signed: 04/06/2024 15:04 Receipt Acknowledged By: 04/08/2024 09:00 /gaetano/ KIMBER MACK MD STAFF PHYSICIAN JUDY LAMAR [facility] Apr 06, 2024 03:02 PM PHARMACY NOTE: LOCAL TITLE: V1 PHARMACY CUSTOMER CARE MEDICATION RENEWAL STANDARD TITLE: PHARMACY NOTE DATE OF NOTE: APR 06, 2024@15:02 ENTRY DATE: APR 06, 2024@15:02:33 AUTHOR: JUDY LAMAR EXP COSIGNER: URGENCY: STATUS: COMPLETED V1 PHARMACY CUSTOMER CARE MEDICATION RENEWAL Has ADDENDA Date: Mar Division: [facility] [place] referred by Pharmacy Call Center for medication renewal: Non-controlled/maintenan ce medication Medications requested: [id number] ALBUTEROL 3/IPRATROP 0.5MG/3ML INHL 3ML [id number] ALBUTEROL 90MCG (CFC-F) 200D ORAL INHL Defer to primary care provider To be mailed . Please review and renew if appropriate. *This note was generated by [facility]/[place] Pharmacy Customer Care. If you have any questions or need assistance, do not contact this author. Please refer all questions to your local, on-site pharmacy departments. /gaetano/ JUDY LAMAR Occupational Therapy Aide, [place]/Pharmacy Customer Care Signed: 04/06/2024 15:03 Receipt Acknowledged By: 04/13/2024 15:15 /gaetano/ CIERRA GREGORY Nurse Practitioner 04/07/2024 08:13 /gaetano/ DEBBIE GORMAN, MSN, RN, CNL PRIMARY CARE TEAM NURSE 04/07/2024 ADDENDUM STATUS: COMPLETED Forwarding to covering provider /gaetano/ DEBBIE GORMAN MSN, RN, CNL PRIMARY CARE TEAM NURSE Signed: 04/07/2024 08:12 Receipt Acknowledged By: * AWAITING SIGNATURE * ELIZABET ROBINS [facility] [place] [facility]
--- OUTSIDE RECORDS SUMMARY | 2024-11-01 07:59 | XMS_ITS | Encounter Summary ---
Author Name [place] Address [address] [place] [address] Care Team Providers Care Gear Shaper Set Up Operator Name Role Phone ELIZABET ROBINS Primary Care [...] Patient's Relationship to Policy Paul [facility] CE ORGANIZ [facility] AC Apr 18, 2018 [id number] WILLIS,MAR JUDITH SPOUSE ANTHEM BCBS OF [place] (BLUECARD) [facility] CE ORGANIZ TNTRISTEN [facility] Apr 18, 2018 [id number] [phone] WILLIS,MAR JUDITH SPOUSE BCBS [facility] CE ORGANIZ [facility] SHARE ACTIV E Apr 18, 2018 [id number] WILLIS,MAR JUDITH SPOUSE [facility] ORGANIZ [facility] Apr 18, 2018 [id number] [phone] WILLIS,MAR JUDITH PATIENT BCBS OF [facility] CE ORGANJAVY MCCABE [facility] Apr 18, 2018 [id number] WILLIS,MAR JUDITH SPOUSE [place] OF [place] PREFERRED PROVIDER ORGANIZAT ION (PPO) BRENDA MCCABE [facility] AC Apr 18, 2018 [id number] WILLIS,MAR JUDITH SPOUSE BCBS OF [facility] CE ORGANIZ BRENDA MCCABE [facility] ACT Apr 18, 2018 [id number] WILLIS,MAR JUDITH SPOUSE BCBS OF [facility] CE ORGANJAVY MCCABE [facility] AC Apr 18, 2018 [id number] [phone] WILLIS,MAR JUDITH SPOUSE [place] PRESCRIPT ION RX22M A Oct 19, 2022 RX22MA [id number] WILLIS,LAVELLE AEL PATIENT CAREMARK PRESCRIPT ION RX22M B Oct 19, 2022 RX22MB [id number] WILLIS,LAVELLE AEL PATIENT CAR[place]ARK PRESCRIPT ION BRENDA MCCABE [facility] AC Oct 19, 2022 RX22MB [id number] [phone] WILLIS,LAVELLE AEL SPOUSE [place] PRESCRIPT ION BCBS OF [place] Oct 19, 2022 RX22MA [id number] WILLIS, SPOUSE CAREMARK PRESCRIPT ION RX22M B Oct 19, 2022 RX22MB [id number] [phone] WILLIS,MAR JUDITH SPOUSE [place] PRESCRIPT ION RX Oct 19, 2022 RX22MB [id number] [phone] WILLIS,MAR JUDITH SPOUSE [place] ([id number]) PRESCRIPT ION [place] Oct 19, 2022 RX22MB [id number] WILLIS,MAR JUDITH SPOUSE [place] BC[place] ([facility] CE ORGANIZ BRENDA MCCABE [facility] AC Apr 18, 2018 [id number] WILLIS,EDILBERTO SOTELOZA SPOUSE [employer] [place] PRESCRIPT I[place]BS [place] 2018 L4TA [id number] WILLIS,EDILBERTO SOTELOZA SPOUSE [employer] ([id number]) PRESCRIPT ION Apr 18, 2018 L4TA [id number] WILLIS,EDILBERTO SOTELOZA SPOUSE [employer] ([id number]) PRESCRIPT ION L4TA* Apr 18, 2020 L4TA [id number] WILLIS,EDILBERTO PALAFOXA SPOUSE [employer] ([id number]) PRESCRIPT ION L4TA* Apr 18, 2018 L4TA [id number] WILLIS,EDILBERTO PALAFOXA SPOUSE [employer] ([id number]) PRESCRIPT ION L4TA Apr 18, 2018 L4TA [id number] WILLIS,EDILBERTO WONG SPOUSE [employer] ([id number]) PRESCRIPT ION Apr 18, 2018 L4TA [id number] WILLISEDILBERTO SPOUSE [employer] ([id number]) PRESCRIPT ION Apr 18, 2018 L4TA [id number] WILLIS,EDILBERTO WONG SPOUSE [employer]-IMNOR BROGATION PRESCRIPT ION BCBS OF [place] Apr 18, 2020 L4TA [id number] WILLIS,EDILBERTO WONG SPOUSE [facility] CE ORGANIZAT ION W/OUT OF NETWORK BENEFITS TNTRISTEN MCCABE [facility] ACT Apr 18, 2018 [id number] WILLISEDILBERTO SPOUSE [place] BCBS [facility] (BLUECARD) [facility] CE ORGANIZAT ION TNTRISTEN [facility] AC Apr 18, 2018 [id number] WILLIS,EDILBERTO WONG SPOUSE MEDICARE (WNR) MEDICARE (M) PART A Mar 19, 1990 PART A [id number] LAVELLE PEDRO AEL PATIENT MEDICARE (WNR) MEDICARE (M) PART A Mar 19, 1990 PART A [id number] WILLIS,LAVELLE AEL PATIENT MEDICARE (WNR) MEDICARE (M) PART A Mar 19, 1990 PART A [id number] WILLIS,LAVELLE AEL PATIENT MEDICARE (WNR) MEDICARE (M) PART A Mar 19, 1990 PART A [id number] WILLIS,LAVELLE AEL PATIENT MEDICARE (WNR) MEDICARE (M) PART A Mar 19, 1990 PART A [id number] WILLIS,LAVELLE AEL PATIENT MEDICARE (WNR) MEDICARE (M) PART A Mar 19, 1990 PART A [id number] WILLIS,LAVELLE AEL PATIENT MEDICARE (WNR) MEDICARE (M) PART A Mar 19, 1990 PART A [id number] WILLIS,LAVELLE AEL PATIENT MEDICARE (WNR) MEDICARE (M) PART A Mar 19, 1990 PART A [id number] WILLIS,LAVELLE AEL PATIENT MEDICARE (WNR) MEDICARE (M) PART A Mar 19, 1990 PART A [id number] WILLIS,LAVELLE AEL PATIENT MEDICARE (WNR) MEDICARE (M) PART A Mar 19, 1990 PART A [id number] [phone] WILLIS,LAVELLE AEL PATIENT MEDICARE (WNR) MEDICARE (M) PART A Mar 19, 1990 PART A [id number] [phone] WILLIS,LAVELLE AEL PATIENT Selected Encounter This section includes the information on [place] at [place] for the Encounter. Date/Time Encounter Type Encounter Description Reason Pro vider Source Mar 23, 2024 08:32 AM Outpatient Encounter ADMIN PAT ACTIVTIES (MASNONCT) [...] AMBULATORY - NONE [facility] [place] [facility] Mar 28, 2024 10:30 AM AMBULATORY - MEDICINE [facility] [place] [facility] Mar 28, 2024 01:00 PM AMBULATORY - MEDICINE [facility] [place] [facility] Apr 06, 2024 01:30 PM AMBULATORY - MEDICINE [facility] [place] [facility] May 30, 2024 08:30 AM AMBULATORY - MEDICINE [facility] [place] [facility] May 30, 2024 09:30 AM AMBULATORY - MEDICINE [facility] [place] [facility] Jun 01, 2024 10:00 AM AMBULATORY - MEDICINE [facility] [place] [facility] Jun 01, 2024 11:30 AM AMBULATORY - MEDICINE [facility] [place] [facility] Jun 28, 2024 11:30 AM AMBULATORY - MEDICINE [facility] [place] [facility] Jul 08, 2024 10:30 AM AMBULATORY - MEDICINE [facility] [place] [facility] Jul 13, 2024 09:30 AM AMBULATORY - MEDICINE [facility] [place] [facility] Aug 12, 2024 09:30 AM AMBULATORY - MEDICINE [facility] [place] [facility] Aug 22, 2024 09:00 AM AMBULATORY - MEDICINE [facility] [place] [facility] Sep 21, 2024 09:00 AM AMBULATORY - MEDICINE [facility] [place] [facility] Sep 21, 2024 10:00 AM AMBULATORY - MEDICINE [facility] [place] [facility] Social History: Smoking Status (Most current) and Tobacco Use (All prior to encounter date) This section includes the most current, and the historical, smoking and tobacco- related health factors from the [place] facility where the Encounter took place. Current Smoking Status This section includes the most current smoking, or tobacco-related health factor, from the [place] facility where the Encounter took place. Date/Time Current Smoking Status Comment Facil mirtha Nov 27, 2023 11:00 AM [place] Tobacco Use History This section includes a history of the smoking, or tobacco-related health factors, that were collected on or before the date of the Encounter. The data comes from the [facility] where the Encounter took place. Date/Time Smoking Status/Tobac co Use Comment Facility Nov 27, 2023 11:00 AM [place]-TOBACCO QUIT 15 YRS OR MORE [facility] Dec 02, 2022 08:00 AM VA-TOBACCO FORMER USER [facility] Dec 02, 2022 08:00 AM [place]-TOBACCO QUIT 15 YRS OR MORE [facility] Nov 05, 2021 10:30 AM [place]-TOBACCO [facility] Nov 05, 2021 10:30 AM [place]-TOBACCO QUIT 1 TO < 5 YRS [facility] Sep 14, 2020 02:00 PM [place]-TOBACCO [facility] Sep 14, 2020 02:00 PM VA-TOBACCO QUIT 5 TO < 15 YRS [facility] [place] [facility] Jan 22, 2018 03:40 PM QUIT TOBACCO USE > 7 YEARS AGO [facility] Jun 04, 2016 02:01 PM CURRENT SMOKER been smoking pass 20 yrs [facility] Jun 04, 2016 02:01 PM V1-PT DECLINES REF TO TOBACCO CESS PRGM [facility] [place] [facility] Jun 04, 2016 02:01 PM V1-PT THINKING ABOUT QUIT TOBACCO USE [facility] [place] [facility] Jul 18, 2014 03:31 PM V1-PT DECLINES REF TO TOBACCO CESS PRGM [facility] Jul 18, 2014 03:31 PM V1-PT DECLINES TOBACCO CESSATION MEDS [facility] Jul 18, 2014 03:31 PM V1-PT NOT INTERESTED IN QUIT [facility]ACCO [facility] Jan 09, 2014 10:43 AM CURRENT SMOKER pt smokes 1 pk of cigarettes per day[facility] Jan 09, 2014 10:43 AM V1-PT THINKING ABOUT QUIT TOBACCO USE [facility] Aug 28, 2003 10:47 AM CURRENT SMOKER one pack q 6 days - he has cut down from 3 PPD. He is in the process of quitting [facility] Radiology Reports: +/- 30 days of [...] the Encounter. The data comes from all [place] treatment facilities. Date/Time Radiology Report Provider Source Mar 28, 2024 09:45 AM LDCT LUNG CANCER SCREENING: CHAYA PEDRO [id number] -1955 M Exm Date: MAR 28, 2024@09:45 Req Phys: ELIZABET ROBINS Pat Loc: ZZCWM/NO/LCS ADMIN (Req'g Loc) Img Loc: NHM/CT Service: Unknown [facility] , (Case 16 COMPLETE) LDCT LUNG CANCER SCREENING (CT Detailed) CPT:72968 Reason for Study: LUNG CANCER SCREENING Clinical History: QUIT SMOKING IN 2012 BASELINE LCS LDCT 03/30/2023: LUNG RADS 1 no new or concerning pulmonary mass or nodules. Plan for repeat in 12 months. Report Status: Verified Date Reported: MAR 28, 2024 Date Verified: MAR 28, 2024 [employer]apple Plantation Manager E-Sig:/ES/RAYMOND LEAL JR Report: Study: Lung cancer [...] reviewed. Secondary computer-aided detection with post-processing from [employer] is used. The lack of intravenous contrast [...] Primary Interpreting Staff: RAYMOND LEAL JR, Radiologist (Pine[employer] Plantation Manager) /RAYMOND SHELTON JR [facility] Encounter Notes: All associated encounter notes This section contains the clinical notes associated to the Encounter. Date/Time Encounter Note(s) Provider Source Mar 23, 2024 08:32 AM ADMINISTRATIVE NOT E: LOCAL TITLE: CCC: SCHEDULING ADMINISTRATION STANDARD TITLE: ADMINISTRATIVE NOTE DATE OF NOTE: MAR 23, 2024@08:32:22 ENTRY DATE: MAR 23, 2024@08:32:22 AUTHOR: ROBER MULTANI COSIGNER: URGENCY: STATUS: COMPLETED CCC: SCHEDULING ADMINISTRATION Has ADDENDA Patient Demographics Patient Name: CHAYA PEDRO Patient Primary Phone: [phone] Patient Primary Address: [address] [place] [address] Patient : 1955 Patient Age: 68 Call Back Number: [phone] Caller/Recipient Relation to Patient: Self Administrative Administrative Note Reason: Medication Renewal [place] Medications Refill/Renewal Request: Rx #[id number] - LEVOCETIRIZINE DIHYDROCHLORIDE 5MG TAB Administrative Note Comments: Byars is calling in today and requesting a renewal on the above requested medication. He is curious if it can possibly be expedited to him. He only has 3 tablets left, and was treated in the [facility] Emergency Room last night for Bronchitis. Please call the patient to discuss further if needed. Best way to reach him is: [phone]. While speaking with the , he was very easily winded and coughing a lot. was offered triage transfer, and he declined due to recent ER admission. /gaetano/ ROBER MULTANI [facility] 1 [facility] Signed: 03/23/2024 08:32 Receipt Acknowledged By: 03/23/2024 19:55 /es/ CIERRA GREGORY Nurse Practitioner 03/24/2024 08:29 /es/ DEBBIE GORMAN, MSN, RN, CNL PRIMARY CARE TEAM NURSE 03/24/2024 ADDENDUM STATUS: COMPLETED Embryology Professor [place] [facility] [place] Douglas review /gaetano/ DEBBIE GORMAN, MSN, RN, CNL PRIMARY CARE TEAM NURSE Signed: 03/24/2024 08:34 ROBER MULTANI CNTL [facility]
--- OUTSIDE RECORDS SUMMARY | 2024-11-01 07:59 | XMS_ITS | Encounter Summary ---
Author Name [place] Address [address] [place] [address] Care Team Providers Care Sales Technician Home Theater Name Role Phone ELIZABET ROBINS Primary Care [...] Patient's Relationship to Policy Paul [facility] CE ORGANIZ [facility] AC Apr 18, 2018 [id number] WILLIS,MAR JUDITH SPOUSE ANTHEM BCBS OF [place] (BLUECARD) [facility] CE ORGANIZ BRENDA [facility] Apr 18, 2018 [id number] WILLIS,MAR JUDITH SPOUSE BCBS [facility] CE ORGANIZ [facility] SHARE ACTIV E Apr 18, 2018 [id number] [phone] WILLIS,MAR JUDITH SPOUSE BCBS OF [facility] CE ORGANIZ [facility] Apr 18, 2018 [id number] WILLIS,MAR JUDITH PATIENT BCBS OF [facility] CE ORGANIZ BRENDA MCCABE [facility] Apr 18, 2018 [id number] WILLIS,MAR JUDITH SPOUSE BC[place] OF [place] PREFERRED PROVIDER ORGANIZAT ION (PPO) BRENDA MCCABE [facility] AC Apr 18, 2018 [id number] WILLIS,MAR JUDITH SPOUSE BCBS OF [facility] CE ORGANIZ BRENDA MCCABE [facility] ACT Apr 18, 2018 [id number] WILLIS,MAR JUDITH SPOUSE BCBS OF [facility] CE ORGANIZ BRENDA MCCABE [facility] AC Apr 18, 2018 [id number] [phone] WILLIS,MAR JUDITH SPOUSE [place] PRESCRIPT ION BRENDA MCCABE [facility] AC Oct 19, 2022 RX22MB [id number] [phone] WILLIS,LAVELLE AEL SPOUSE [place] PRESCRIPT ION RX22M A Oct 19, 2022 RX22MA [id number] WILLIS,LAVELLE AEL PATIENT [place] PRESCRIPT ION RX22M B Oct 19, 2022 RX22MB [id number] WILLIS,LAVELLE AEL PATIENT [place] PRESCRIPT ION BCBS OF [place] Oct 19, 2022 RX22MA [id number] WILLIS, SPOUSE CAREMARK PRESCRIPT ION RX22M B Oct 19, 2022 RX22MB [id number] [phone] WILLIS,MAR JUDITH SPOUSE [place] PRESCRIPT ION RX Oct 19, 2022 RX22MB [id number] [phone] WILLIS,MAR JUDITH SPOUSE [place] ([id number]) PRESCRIPT ION [place] Oct 19, 2022 RX22MB [id number] WILLIS,MAR JUDITH SPOUSE [place] BCBS ([facility] CE ORGANIZ BRENDA MCCABE [facility] AC Apr 18, 2018 [id number] WILLIS,EDILBERTO SOTELOZA SPOUSE [employer] PRESCRIPT I[place] BCBS [place] 2018 L4TA [id number] WILLIS,EDILBERTO SOTELOZA SPOUSE [employer] ([id number]) PRESCRIPT ION Apr 18, 2018 L4TA [id number] WILLIS,EDILBERTO SOTELOZA SPOUSE [employer] ([id number]) PRESCRIPT ION L4TA* Apr 18, 2020 L4TA [id number] WILLISEDILBERTOA SPOUSE [employer] ([id number]) PRESCRIPT ION L4TA* Apr 18, 2018 L4TA [id number] WILLIS,EDILBERTO PALAFOXA SPOUSE [employer] ([id number]) PRESCRIPT ION L4TA Apr 18, 2018 L4TA [id number] WILLIS,EDILBERTO WONG SPOUSE [employer] ([id number]) PRESCRIPT ION Apr 18, 2018 L4TA [id number] 32 WILLISEDILBERTO SPOUSE [employer] ([id number]) PRESCRIPT ION Apr 18, 2018 L4TA [id number] WILLISEDILBERTO SPOUSE EXPRESS [employer]TS-MINOR BROGATION PRESCRIPT ION BCBS OF [place] Apr 18, 2020 L4TA [id number] WILLISEDILBERTO SPOUSE [facility] CE ORGANIZAT ION W/OUT OF NETWORK BENEFITS METRISTEN [facility] RSD ACT Apr 18, 2018 [id number] EDILBERTO PEDRO SPOUSE [place] BCBS [facility] (BLUECAR) [facility] CE ORGANIZAT ION [facility]EN [facility] AC Apr 18, 2018 [id number] [phone] EDILBERTO PEDRO SPOUSE MEDICARE (WNR) MEDICARE (M) PART A Mar 19, 1990 PART A [id number] WILLISLAVELLE AEL PATIENT MEDICARE (WNR) MEDICARE (M) PART A Mar 19, 1990 PART A [id number] [phone] WILLIS,LAVELLE AEL PATIENT MEDICARE (WNR) MEDICARE (M) PART A Mar 19, 1990 PART A [id number] WILLIS,LAVELLE AEL PATIENT MEDICARE (WNR) MEDICARE (M) PART A Mar 19, 1990 PART A [id number] [phone] WILLIS,LAVELLE AEL PATIENT MEDICARE (WNR) MEDICARE (M) PART A Mar 19, 1990 PART A [id number] WILLIS,LAVELLE AEL PATIENT MEDICARE (WNR) MEDICARE (M) PART A Mar 19, 1990 PART A [id number] WILLIS,LAVELLE AEL PATIENT MEDICARE (WNR) MEDICARE (M) PART A Mar 19, 1990 PART A [id number] WILLIS,LAVELLE AEL PATIENT MEDICARE (WNR) MEDICARE (M) PART A Mar 19, 1990 PART A [id number] WILLIS,LAVELLE AEL PATIENT MEDICARE (WNR) MEDICARE (M) PART A Mar 19, 1990 PART A [id number] WILLIS,LAVELLE AEL PATIENT MEDICARE (WNR) MEDICARE (M) PART A Mar 19, 1990 PART A [id number] WILLIS,LAVELLE AEL PATIENT MEDICARE (WNR) MEDICARE (M) PART A Mar 19, 1990 PART A [id number] WILLIS,LAVELLE AEL PATIENT Selected Encounter This section includes the information on record at [place] for the Encounter. Date/Time Encounter Type Encounter Description Reason Pro vider Source February 23, 2024 12:00 PM Outpatient Encounter COMMUNITY CARE CONSULT [...] AMBULATORY - NONE [facility] [place] [facility] Mar 28, 2024 10:30 AM AMBULATORY - MEDICINE [facility] [place] [facility] Mar 28, 2024 01:00 PM AMBULATORY - MEDICINE [facility] [place] [facility] Apr 06, 2024 01:30 PM AMBULATORY - MEDICINE [facility] [place] [facility] May 30, 2024 08:30 AM AMBULATORY - MEDICINE [facility] [place] [facility] May 30, 2024 09:30 AM AMBULATORY - MEDICINE [facility] [place] [facility] Jun 01, 2024 10:00 AM AMBULATORY - MEDICINE [facility] [place] [facility] Jun 01, 2024 11:30 AM AMBULATORY - MEDICINE [facility] [place] [facility] Jun 28, 2024 11:30 AM AMBULATORY - MEDICINE [facility] [place] [facility] Jul 08, 2024 10:30 AM AMBULATORY - MEDICINE [facility] [place] [facility] Jul 13, 2024 09:30 AM AMBULATORY - MEDICINE [facility] [place] [facility] Aug 12, 2024 09:30 AM AMBULATORY - MEDICINE [facility] [place] [facility] Aug 22, 2024 09:00 AM AMBULATORY - MEDICINE [facility] [place] [facility] Lab Results: +/- 30 days [...] 2024 09:27 AM [facility] [place] [facility] HEMOGLOBIN A1C PANEL Specimen Type: [...] Dec 10, 2023 06:17 PM Reporting Lab: [address] [address] Performing Lab: [address] [address] HEMOGLOBIN A1C 6.2 H 4.0-5.6 Feb 16, 2024 09:27 AM [facility] BASIC METABOLIC PANEL (non-fasting) Specimen Type: SERUM No comment entered. Ordering Provider: KIMBER MACK Report Released Date/Time: Dec 10, 2023 06:17 PM Reporting Lab: [address] [address] Performing Lab: [address] [address] UREA NITROGEN 11 mg/dL 7-25 GLUCOSE 112 [...] Enrique shannon Nov 27, 2023 11:00 AM [place]-TOBACCO FORMER USER [facility] Tobacco Use History This section includes a history of the smoking, or tobacco-related health factors, that were collected on or before the date of the Encounter. The data comes from the [place] facility where the Encounter took place. Date/Time Smoking Status/Tobac co Use Comment Facility Nov 27, 2023 11:00 AM VA-TOBACCO QUIT 15 YRS OR MORE [facility] [place] [facility] Dec 02, 2022 08:00 AM VA-TOBACCO FORMER USER [facility] Dec 02, 2022 08:00 AM VA-TOBACCO QUIT 15 YRS OR MORE [facility] Nov 05, 2021 10:30 AM VA-TOBACCO FORMER USER [facility] Nov 05, 2021 10:30 AM VA-TOBACCO QUIT 1 TO < 5 YRS [facility] [place] [facility] Sep 14, 2020 02:00 PM VA-TOBACCO [facility] Sep 14, 2020 02:00 PM VA-TOBACCO QUIT 5 TO < 15 YRS [facility] Jan 22, 2018 03:40 PM QUIT TOBACCO USE > 7 YEARS AGO [facility] Jun 04, 2016 02:01 PM CURRENT SMOKER been smoking pass 20 yrs [facility] Jun 04, 2016 02:01 PM V1-PT DECLINES REF TO TOBACCO CESS [facility] Jun 04, 2016 02:01 PM V1-PT THINKING ABOUT QUIT TOBACCO USE [facility] Jul 18, 2014 03:31 PM V1-PT DECLINES REF TO TOBACCO CESS [facility] Jul 18, 2014 03:31 PM V1-PT DECLINES TOBACCO CESSATION MEDS [facility] Jul 18, 2014 03:31 PM V1-PT NOT INTERESTED IN QUIT TOBACCO USE [facility] [place] [facility] Jan 09, 2014 10:43 AM CURRENT SMOKER pt smokes 1 pk of cigarettes per day. [facility] Jan 09, 2014 10:43 AM V1-PT THINKING ABOUT [facility]IT [facility]AC[facility] [place] [facility] Aug 28, 2003 10:47 AM CURRENT SMOKER one pack q 6 days - he has cut down from 3 PPD. He is in the process of [facility] Encounter Notes: All associated encounter notes This section contains the clinical notes associated to the Encounter. Date/Time Encounter Note(s) Provider Source February 23, 2024 12:00 PM NONVA CONSULT: LOCAL TITLE: COMMUNITY CARE-CONSULT RESULT NOTE STANDARD TITLE: NONVA CONSULT DATE OF NOTE: FEBRUARY 23, 2024@12:00 ENTRY DATE: MARCH 04, 2024@10:40:59 AUTHOR: KELLI BRADEN COSIGNER: URGENCY: STATUS: COMPLETED VistA Imaging - Scanned Document [facility] [place] UROLOGY-OFFICE NOTES SCANNED DOCUMENT SIGNATURE NOT REQUIRED Electronically Filed: 03/04/2024 by: KELLI BRADEN JOB PLACEMENT OFFICER KELLI BRADEN [place] [facility]
--- OUTSIDE RECORDS SUMMARY | 2024-11-01 07:59 | XMS_ITS ---
Author Name [facility] [place] [facility] [place] Address [address] [place] [address] Care Team Providers Care Financial Services Agent Name Role Phone ELIZABET ROBINS Primary Care [...] Policy Paul [facility] CE ORGANIZ [facility] Apr 18, 2018 [id number] WILLIS,MAR JUDITH SPOUSE ANTHE[place] OF [place] (BLU[place]ARD) [facility] CE ORGANIZ D[facility]RISTEN [facility] Apr 18, 2018 [id number] [phone] WILLIS,MAR JUDITH SPOUSE BCBS [facility] CE ORGANIZ [facility] ACTIV E Apr 18, 2018 [id number] WILLIS,MAR JUDITH SPOUSE BCBS OF [facility] ORGANIZ [facility] Apr 18, 2018 [id number] WILLIS,MAR JUDITH PATIENT BCBS OF [facility] CE ORGANIZ BRENDA MCCABE [facility] Apr 18, 2018 [id number] WILLIS,MAR JUDITH SPOUSE [place] OF [place] PREFERRED PROVIDER ORGANIZAT ION (PPO) BRENDA MCCABE [facility] AC Apr 18, 2018 [id number] [phone] WILLIS,MAR JUDITH SPOUSE BCBS OF [facility] CE ORGANIZ BRENDA MCCABE [facility] ACT Apr 18, 2018 [id number] WILLIS,MAR JUDITH SPOUSE BCBS OF [facility] CE ORGANIZ BRENDA MCCABE [facility] AC Apr 18, 2018 [id number] [phone] WILLIS,MAR JUDITH SPOUSE [place] PRESCRIPT ION BRENDA MCCABE [facility] AC Oct 19, 2022 [id number] [phone] WILLIS,LAVELLE AEL SPOUSE [place] PRESCRIPT ION RX22M A Oct 19, 2022 RX22MA [id number] WILLIS,LAVELLE AEL PATIENT [place] PRESCRIPT ION RX22M B Oct 19, 2022 RX22MB [id number] WILLIS,LAVELLE AEL PATIENT [place] PRESCRIPT ION BCBS OF [place] Oct 19, 2022 RX22MA [id number] WILLIS, SPOUSE [place] PRESCRIPT ION RX22M B Oct 19, 2022 RX22MB [phone] [phone] WILLIS,MAR JUDITH SPOUSE [place] PRESCRIPT ION RX Oct 19, 2022 [id number] [id number] [phone] WILLIS,MAR JUDITH SPOUSE [place] ([id number]) PRESCRIPT ION [place] Oct 19, 2022 [id number] [phone] WILLIS,MAR JUDITH SPOUSE [place] BC[place] ([facility] CE ORGANIZ BRENDA MCCABE [facility] AC Apr 18, 2018 [id number] WILLIS,EDILBERTO SOTELOZA SPOUSE [place] PRESCRIPT I[place] 2018 L4TA [id number] WILLIS,EDILBERTO SOTELOZA SPOUSE [employer] ([id number]) PRESCRIPT ION Apr 18, 2018 L4TA [id number] WILLIS,EDILBERTO SOTELOZA SPOUSE [employer] ([id number]) PRESCRIPT ION L4TA* Apr 18, 2020 L4TA [id number] WILLIS,EDILBERTO PALAFOXA SPOUSE [employer] ([id number]) PRESCRIPT ION L4TA* Apr 18, 2018 L4TA [id number] WILLIS,EDILBERTO PALAFOXA SPOUSE [employer] ([id number]) PRESCRIPT ION L4TA Apr 18, 2018 L4TA [id number] WILLIS,EDILBERTO SOTELOZA SPOUSE [employer] ([id number]) PRESCRIPT ION Apr 18, 2018 L4TA [id number] WILLISEDILBERTOZA SPOUSE [employer] ([id number]) PRESCRIPT ION Apr 18, 2018 L4TA [id number] WILLIS,EDILBERTO WONG SPOUSE [employer] PRESCRIPT ION [place] OF [place] Apr 18, 2020 L4TA [id number] WILLIS,EDILBERTO WONG SPOUSE [place] [facility] CE ORGANIZAT ION W/OUT OF NETWORK BENEFITS DCTRISTEN [facility] ACT Apr 18, 2018 [id number] WILLISEDILBERTO SPOUSE [place] BC[facility] (BLUECAR) [facility] CE ORGANIZAT ION [facility]STEN [facility] AC Apr 18, 2018 [id number] WILLISEDILBERTO SPOUSE MEDICARE (WNR) MEDICARE (M) PART A Mar 19, 1990 PART A [id number] WILLIS,LAVELLE AEL PATIENT MEDICARE (WNR) MEDICARE (M) PART A Mar 19, 1990 PART A [id number] WILLIS,LAVELLE AEL PATIENT MEDICARE (WNR) MEDICARE (M) PART A Mar 19, 1990 PART A [id number] WILLIS,LAVELLE AEL PATIENT MEDICARE (WNR) MEDICARE (M) PART A Mar 19, 1990 PART A [id number] [phone] WILLIS,LAVELLE AEL PATIENT MEDICARE (WNR) MEDICARE (M) PART A Mar 19, 1990 PART A [id number] WILLIS,LAVELLE AEL PATIENT MEDICARE (WNR) MEDICARE (M) PART A Mar 19, 1990 PART A [id number] WILLIS,LAVELLE AEL PATIENT MEDICARE (WNR) MEDICARE () PART A Mar 19, 1990 PART A [id number] [phone] WILLIS,LAVELLE AEL PATIENT MEDICARE (WNR) MEDICARE () PART A Mar 19, 1990 PART A [id number] WILLIS,LAVELLE AEL PATIENT MEDICARE (WNR) MEDICARE () PART A Mar 19, 1990 PART A [id number] WILLIS,LAVELLE AEL PATIENT MEDICARE (WNR) MEDICARE (M) PART A Mar 19, 1990 PART A [id number] [phone] WILLIS,LAVELLE AEL PATIENT MEDICARE (WNR) MEDICARE (M) PART A Mar 19, 1990 PART A [id number] [phone] WILLIS,LAVELLE AEL PATIENT Selected Encounter This section includes the information on record at [place] for the Encounter. Date/Time Encounter Type Encounter Description Reason Provider Source Mar 28, 2024 10:30 AM OFF/OP EST FEBRUARY X REQ PHY/QHP PRIMARY CARE/MEDICINE ICD-10-CM Z71.89 Other specified counseling TONJA LLANES [employer] Encounter Template Text not used by [place] Assessments - Encounter Diagnoses This section includes the primary and secondary diagnoses documented for the Encounter. Date/Time Primary/Secondary Diagnosis Diagnosis Name Provider Source Apr 20, 2024 02:44 PM PRIMARY Other specified counseling TONJA LLANES [facility] [place] [facility] Plan of Treatment: Future Appointments (+ 6 months) and Future Tests (+/- 45 days) The Plan of Treatment section includes future care activities for the patient [facility] [place] [facility] This section includes future appointments and future orders which are active, pending or scheduled. Future Appointments This section includes appointments that were scheduled to occur 6 months from the date of the Encounter, up to a maximum of 20 appointments. The data comes from all [place] treatment facilities. Appointment Date/Time Appointment Type Appointme nt Facility Name Apr 06, 2024 01:30 PM AMBULATORY - MEDICINE [place] [facility] [place] [facility] May 30, 2024 08:30 AM AMBULATORY - MEDICINE [facility] [place] [facility] May 30, 2024 09:30 AM AMBULATORY - MEDICINE [facility] [place] [facility] Jun 01, 2024 10:00 AM AMBULATORY - MEDICINE [facility] [place] [facility] Jun 01, 2024 11:30 AM AMBULATORY - MEDICINE [facility] [place] [facility] Jun 28, 2024 11:30 AM AMBULATORY - MEDICINE [facility] [place] [facility] Jul 08, 2024 10:30 AM AMBULATORY - MEDICINE [facility] [place] [facility] Jul 13, 2024 09:30 AM AMBULATORY - MEDICINE [facility] [place] [facility] Aug 12, 2024 09:30 AM AMBULATORY - MEDICINE [facility] [place] [facility] Aug 22, 2024 09:00 AM AMBULATORY - MEDICINE [facility] [place] [facility] Sep 21, 2024 09:00 AM AMBULATORY - MEDICINE [facility] [place] [facility] Sep 21, 2024 10:00 AM AMBULATORY - MEDICINE [place] [facility] [place] [facility] Vital Signs: All taken on the encounter date This section contains inpatient and outpatient Vital Signs collected on the date of the Encounter. Date/Time Temperature Pulse Blood Pressure Respiratory Rate SP02 Pain Height Weight Body Mass Index Source Mar 28, 2024 10:36 AM 99.1 122 132/97 20 97 208.1 35 [place] [facility] [place] [facility] Social History: Smoking Status (Most current) and Tobacco Use (All prior to encounter date) This section includes the most current, and the historical, smoking and tobacco- related health factors from the [place] facility where the Encounter took place. Current Smoking Status This section includes the most current smoking, or tobacco-related health factor, from the [place] facility where the Encounter took place. Date/Time Current Smoking Status Comment [facility] Nov 27, 2023 11:00 AM VA-TOBACCO FORMER USER [place] [facility] Tobacco Use History This section includes a history of the smoking, or tobacco-related health factors, that were collected on or before the date of the Encounter. The data comes from the [place] facility where the Encounter took place. Date/Time Smoking Status/Tobac co Use Comment Facility Nov 27, 2023 11:00 AM VA-TOBACCO QUIT 15 YRS OR MORE [facility] [place] [facility] Dec 02, 2022 08:00 AM VA-TOBACCO FORMER USER [facility] [place] [facility] Dec 02, 2022 08:00 AM VA-TOBACCO QUIT 15 YRS OR MORE [facility] [place] [facility] Nov 05, 2021 10:30 AM VA-TOBACCO FORMER USER [facility] [place] [facility] Nov 05, 2021 10:30 AM VA-TOBACCO QUIT 1 TO < 5 YRS [facility] [place] [facility] Sep 14, 2020 02:00 PM VA-TOBACCO FORMER USER [facility] [place] [facility] Sep 14, 2020 02:00 PM VA-TOBACCO QUIT 5 TO < 15 YRS [facility] [place] [facility] Jan 22, 2018 03:40 PM QUIT TOBACCO USE > 7 YEARS AGO [facility] [place] [facility] Jun 04, 2016 02:01 PM CURRENT SMOKER been smoking pass 20 yrs [facility] [place] [facility] Jun 04, 2016 02:01 PM V1-PT [facility]CL[facility]F [facility] [place] [facility] Jun 04, 2016 02:01 PM V1-PT THINKING ABOUT QUIT TOBACCO USE [facility] [place] [facility] Jul 18, 2014 03:31 PM V1-PT DECLINES REF TO TOBACCO CESS [facility] Jul 18, 2014 03:31 PM V1-PT DECLINES TOBACCO CESSATION MEDS [facility] Jul 18, 2014 03:31 PM V1-PT NOT INTERESTED IN QUIT TOBACCO USE [facility] Jan 09, 2014 10:43 AM CURRENT SMOKER pt smokes 1 pk of cigarettes per day. [facility] Jan 09, 2014 10:43 AM V1-PT THINKING [...] the Encounter. The data comes from all [facility] facilities. Date/Time Radiology Report Provider Source Mar 28, 2024 09:45 AM LDCT LUNG CANCER SCREENING: CHAYA PEDRO [id number] -[id number] M Exm Date: MAR 28, 2024@09:45 Req Phys: ELIZABET ROBINS Pat Loc: [facility]/NO/LCS ADMIN (Req'g Loc) Img Loc: [facility]/CT Service: Unknown [facility] , (Case 16 COMPLETE) LDCT LUNG CANCER SCREENING (CT Detailed) CPT:20794 Reason for Study: LUNG CANCER SCREENING Clinical History: QUIT SMOKING IN 2013 BASELINE LCS LDCT 03/30/2023: LUNG RADS 1 no new or concerning pulmonary mass or nodules. Plan for repeat in 12 months. Report Status: Verified Date Reported: MAR 28, 2024 Date Verified: MAR 28, 2024 Engine Wiper E-Sig:/ES/RAYMOND LEAL JR Report: Study: Lung cancer [...] reviewed. Secondary computer-aided detection with post-processing from [email or web address] is used. The lack of intravenous contrast [...] Primary Interpreting Staff: RAYMOND LEAL JR, Radiologist (Engine Wiper) /RAYMOND SHELTON JR [facility] Encounter Notes: All associated encounter notes This section contains the clinical notes associated to the Encounter. Date/Time Encounter Note(s) Provider Source Mar 28, 2024 10:37 AM PRIMARY CARE OUTPA TIENT NOTE: LOCAL TITLE: AMBULATORY/OUTPATIENT CARE NOTE STANDARD TITLE: PRIMARY CARE OUTPATIENT NOTE DATE OF NOTE: MAR 28, 2024@10:37 ENTRY DATE: MAR 28, 2024@10:37:30 AUTHOR: LINDA LLANES EXP COSIGNER: URGENCY: STATUS: COMPLETED F: cough with shortness of breath D&A: Pt presents to sick call with shortness of breath and cough. Pt was seen last Thursday at [facility], does not have his d/c paperwork to provider for evaluation of services today. Pt states, was put on an Abt, prednisone and Mucinex, finished all medications for the exception of the abt, patient has one more day left. Pt states the hospital tested for covid( neg), did labs and a chest xray vet is unaware of results for the exception of the covid screening. Pt did have a lung screening done today, which can give the sick call provider some insight as far as the shortness of breath. Pt's lungs sounds on the left are diminshed on inspiration. States has been coughing up light green mucous, that has improved from the original black mucous , from last week. R: To be evaluated by Sick call provider TATIANNA Blood Pressure: 132/97 (03/28/2024 10:36) Pain: 3 (12/10/2023 09:52) Patient Height: 65 in [165.1 cm] (12/10/2023 09:52) Patient Weight: 208.1 lb [94.39 kg] (03/28/2024 10:36) Pulse: 122 (03/28/2024 10:36) *MANUALLY Respiration: 20 (03/28/2024 10:36) Temperature: 99.1 F [37.3 C] (03/28/2024 10:36) /gaetano/ LINDA LLANES Registered Nurse Signed: 03/28/2024 10:45 LINDA LLANES [facility]
--- OUTSIDE RECORDS SUMMARY | 2024-11-01 07:59 | XMS_ITS | Encounter Summary ---
Author Name [facility] [place] Organization [facility] [place] [facility] [place] Address [address] [place] [address] Care Team Providers Care Biophysics Teacher Name Role Phone ELIZABET ROBINS Primary Care [...] [facility] Apr 18, 2018 [id number] [phone] [id number] WILLIS,MAR JUDITH SPOUSE ANTHEM BCBS OF [place] (BLUECARD) [facility] CE ORGANIZ [facility] Apr 18, 2018 [id number] [phone] WILLIS,MAR JUDITH SPOUSE BCBS [facility] CE ORGANIZ [facility] SHARE ACTIV E Apr 18, 2018 [id number] WILLIS,MAR JUDITH SPOUSE BCBS OF [facility] CE ORGANIZ [facility] Apr 18, 2018 [id number] [phone] WILLIS,MAR JUDITH PATIENT BCBS OF [facility] CE ORGANIZ [facility] Apr 18, 2018 [id number] WILLIS,MAR JUDITH SPOUSE [place] OF [place] PREFERRED PROVIDER ORGANIZAT ION (PPO) [facility] AC Apr 18, 2018 [phone] WILLIS,MAR JUDITH SPOUSE BCBS OF [facility] CE ORGANIZ [facility] ACT Apr 18, 2018 [id number] WILLIS,MAR JUDITH SPOUSE BCBS OF [facility] CE ORGANIZ [facility] AC Apr 18, 2018 [id number] [phone] WILLIS,MAR JUDITH SPOUSE [place] PRESCRIPT ION [facility] AC Oct 19, 2022 [id number] [phone] WILLIS,LAVELLE AEL SPOUSE [place] PRESCRIPT ION RX22M A Oct 19, 2022 RX22MA [id number] WILLIS,LAVELLE AEL PATIENT [place] PRESCRIPT ION RX22M B Oct 19, 2022 RX22MB [id number] WILLIS,LAVELLE AEL PATIENT [place] PRES[place] Oct 19, 2022 RX22MA [id number] WILLIS, SPOUSE [place] PRESCRIPT ION RX22M B Oct 19, 2022 RX22MB [id number] [phone] WILLIS,MAR JUDITH SPOUSE [place] PRESCRIPT ION RX Oct 19, 2022 RX22MB [id number] [phone] WILLIS,MAR JUDITH SPOUSE [place] ([id number]) PRESCRIPT [place] Oct 19, 2022 RX22MB [id number] [phone] WILLIS,MAR JUDITH SPOUSE [place] ([facility] CE ORGANIZ [facility] AC Apr 18, 2018 [id number] WILLIS,EDILBERTO SOTELOZA SPOUSE [place] PRESCRIPT I[place] 2018 L4TA [id number] WILLIS,EDILBERTO SOTELOZA SPOUSE [employer] ([id number]) PRESCRIPT ION Apr 18, 2018 L4TA [id number] WILLIS,EDILBERTO SOTELOZA SPOUSE [employer] ([id number]) PRESCRIPT ION L4TA* Apr 18, 2020 L4TA [id number] WILLIS,EDILBERTO PALAFOXA SPOUSE [employer] ([id number]) PRESCRIPT ION L4TA* Apr 18, 2018 L4TA [id number] WILLSI,EDILBERTO PALAFOXA SPOUSE [employer] ([id number]) PRESCRIPT ION L4TA Apr 18, 2018 L4TA [id number] WILLIS,EDILBERTO SOTELOZA SPOUSE [employer] ([id number]) PRESCRIPT ION Apr 18, 2018 L4TA [id number] WILLISEDILBERTO SPOUSE [employer] ([id number]) PRESCRIPT ION Apr 18, 2018 L4TA [id number] WILLIS,EDILBERTO WONG SPOUSE [employer] PRESCRIPT I[place] Apr 18, 2020 L4TA [id number] WILLIS,EDILBERTO WONG SPOUSE [facility] CE ORGANIZAT ION W/OUT OF NETWORK BENEFITS [facility] ACT Apr 18, 2018 [id number] WILLISEDILBERTO SPOUSE [place] BCBS [facility] (BLUECARD) [facility] CE ORGANIZAT ION [facility] AC Apr 18, 2018 [id number] WILLISEDILBERTO SPOUSE MEDICARE (WNR) MEDICARE (M) PART A Mar 19, 1990 PART A [id number] WILLISLAVELLE AEL PATIENT MEDICARE (WNR) MEDICARE (M) PART A Mar 19, 1990 PART A [id number] [phone] WILLIS,LAVELLE AEL PATIENT MEDICARE (WNR) MEDICARE (M) PART A Mar 19, 1990 PART A [id number] WILLIS,LAVELLE AEL PATIENT MEDICARE (WNR) MEDICARE (M) PART A Mar 19, 1990 PART A [id number] WILLIS,LAVELLE AEL PATIENT MEDICARE (WNR) MEDICARE (M) PART A Mar 19, 1990 PART A [id number] WILLIS,LAVELLE AEL PATIENT MEDICARE (WNR) MEDICARE (M) PART A Mar 19, 1990 PART A [id number] WILLIS,LAVELLE AEL PATIENT MEDICARE (WNR) MEDICARE (M) PART A Mar 19, 1990 PART A [id number] WILLIS,LAVELLE AEL PATIENT MEDICARE (WNR) MEDICARE (M) PART A Mar 19, 1990 PART A [id number] WILLIS,LAVELLE AEL PATIENT MEDICARE (WNR) MEDICARE (M) PART A Mar 19, 1990 PART A [id number] WILLIS,LAVELLE AEL PATIENT MEDICARE (WNR) MEDICARE (M) PART A Mar 19, 1990 PART A [id number] [phone] WILLIS,LAVELLE AEL PATIENT MEDICARE (WNR) MEDICARE (M) PART A Mar 19, 1990 PART A [id number] [phone] WILLIS,LAVELLE AEL PATIENT Selected Encounter This section includes the information on record at [place] for the Encounter. Date/Time Encounter Type Encounter Description Reason Provider Source Mar 28, 2024 01:00 PM OFFICE O/P EST LOW 20 MIN PRIMARY CARE/MEDICINE ICD-10-CM J30.2 Other seasonal allergic rhinitis NICHELLE WEISS Baldev Encounter Template Text not used by [place] Assessments - Encounter Diagnoses This section includes the primary and secondary diagnoses documented for the Encounter. Date/Time Primary/Secondary Diagnosis Diagnosis Name Provider Source Apr 20, 2024 02:43 PM PRIMARY Other seasonal allergic rhinitis NICHELLE WEISS [facility] Apr 20, 2024 02:43 PM SECONDARY Acute bronchitis, unspecified NICHELLE WEISS [facility] Plan of Treatment: Future Appointments (+ 6 months) and Future Tests (+/- 45 days) The Plan of Treatment section includes future care activities for the patient from all [place] treatmentkindred healthcareities. This section includes future appointments and future orders which are active, pending or scheduled. Future Appointments This section includes appointments that were scheduled to occur 6 months from the date of the Encounter, up to a maximum of 20 appointments. The data comes from all [place] treatment facilities. Appointment Date/Time Appointment Type Appointme nt Facility Name Apr 06, 2024 01:30 PM AMBULATORY - MEDICINE [facility] May 30, 2024 08:30 AM AMBULATORY - MEDICINE [facility] May 30, 2024 09:30 AM AMBULATORY - MEDICINE [facility] Jun 01, 2024 10:00 AM AMBULATORY - MEDICINE [facility] Jun 01, 2024 11:30 AM AMBULATORY - MEDICINE [facility] Jun 28, 2024 11:30 AM AMBULATORY - MEDICINE [facility] Jul 08, 2024 10:30 AM AMBULATORY - MEDICINE [facility] Jul 13, 2024 09:30 AM AMBULATORY - MEDICINE [facility] Aug 12, 2024 09:30 AM AMBULATORY - MEDICINE [facility] Aug 22, 2024 09:00 AM AMBULATORY - MEDICINE [facility] Sep 21, 2024 09:00 AM AMBULATORY - MEDICINE [facility] Sep 21, 2024 10:00 AM AMBULATORY - MEDICINE [facility] Vital Signs: All taken on the encounter date This section contains inpatient and outpatient Vital Signs collected on the date of the Encounter. Date/Time Temperature Pulse Blood Pressure Respiratory Rate SP02 Pain Height Weight Body Mass Index Source Mar 28, 2024 10:36 AM 99.1 122 132/97 20 97 208.1 35 [facility] Social History: Smoking Status (Most current) and Tobacco Use (All prior to encounter date) This section includes the most current, and the historical, smoking and tobacco- related health factors from the [place] facility where the Encounter took place. Current Smoking Status This section includes the most current smoking, or tobacco-related health factor, from the [place] facility where the Encounter took place. Date/Time Current Smoking Status Comment [facility] Nov 27, 2023 11:00 AM VA[facility]TOBACCO [facility] Tobacco Use History This section includes a history of the smoking, or tobacco-related health factors, that were collected on or before the date of the Encounter. The data comes from the [place] facility where the Encounter took place. Date/Time Smoking Status/Tobac co Use Comment [facility] Nov 27, 2023 11:00 AM VA-TOBACCO QUIT 15 YRS OR MORE [facility] Dec 02, 2022 08:00 AM VA-TOBACCO FORMER USER [facility] Dec 02, 2022 08:00 AM VA-TOBACCO QUIT 15 YRS OR MORE [facility] Nov 05, 2021 10:30 AM VA-TOBACCO FORMER USER [facility] Nov 05, 2021 10:30 AM VA-TOBACCO QUIT 1 TO < 5 YRS [facility] Sep 14, 2020 02:00 PM VA-TOBACCO FORMER USER [facility] Sep 14, 2020 02:00 PM VA-TOBACCO QUIT 5 TO < 15 YRS [facility] Jan 22, 2018 03:40 PM QUIT TOBACCO USE > 7 YEARS AGO [facility] Jun 04, 2016 02:01 PM CURRENT SMOKER been smoking pass 20 yrs [facility] Jun 04, 2016 02:01 PM V1-PT DECLINES REF TO TOBACCO CESS PRGM [facility] Jun 04, 2016 02:01 PM V1-PT TH[facility]ING ABOUT QUIT [facility]ACCO [facility] Jul 18, 2014 03:31 PM V1-PT DECLINES REF TO TOBACCO CESS PRGM [facility] Jul 18, 2014 03:31 PM V1-PT DECLINES TOBACCO CESSATION MEDS [facility] Jul 18, 2014 03:31 PM V1-PT NOT INTERESTED IN QUIT TOBACCO USE [facility] Jan 09, 2014 10:43 AM CURRENT SMOKER pt smokes 1 pk of cigarettes per day. [facility] Jan 09, 2014 10:43 AM V1-PT THINKING ABOUT QUIT TOBACCO USE [facility] Aug 28, 2003 10:47 AM CURRENT SMOKER one pack q 6 days - he has cut down from 3 PPD. He is in the process of quitting [facility] Radiology Reports: +/- 30 [...] the Encounter. The data comes from all [place] treatment facilities. Date/Time Radiology Report Provider Source Mar 28, 2024 09:45 AM LDCT LUNG CANCER SCREENING: WILLISCHAYA LEIVA [id number] -[id number] M Exm Date: MAR 28, 2024@09:45 Req Phys: ELIZABET ROBINS Pat Loc: ZZCWM/NO/LCS ADMIN (Req'g Loc) Img Loc: NHM/CT Service: Unknown [facility] , (Case 16 COMPLETE) LDCT LUNG CANCER SCREENING (CT Detailed) CPT:31227 Reason for Study: LUNG CANCER SCREENING Clinical History: QUIT SMOKING IN 2013 BASELINE LCS LDCT 03/30/2023: LUNG RADS 1 no new or concerning pulmonary mass or nodules. Plan for repeat in 12 months. Report Status: Verified Date Reported: MAR 28, 2024 Date Verified: MAR 28, 2024 [place] E-Sig:/ES/RAYMOND LEAL JR Report: Study: Lung cancer [...] reviewed. Secondary computer-aided detection with post-processing from [employer] is used. The lack of intravenous contrast [...] Primary Interpreting Staff: RAYMOND LEAL JR, Radiologist ([place]) /RAYMOND SHELTON JR [facility] Encounter Notes: All associated encounter notes This section contains the clinical notes associated to the Encounter. Date/Time Encounter Note(s) Provider Source Mar 28, 2024 11:19 AM PHYSICIAN URBAN DESIGN CONSULTANT NOTE: LOCAL TITLE: PA NOTE STANDARD TITLE: PHYSICIAN URBAN DESIGN CONSULTANT NOTE DATE OF NOTE: MAR 28, 2024@11:19 ENTRY DATE: MAR 28, 2024@11:19:31 AUTHOR: NICHELLE WEISS EXP COSIGNER: URGENCY: STATUS: COMPLETED SICK CALL VISIT CC: Shortness of breath HPI: 68-year-old male with below noted past medical history presents today with increased shortness of breath. He states that he went to the hospital and had a full work-up with negative results. He presents here with the same complaints as when he went to the hospital. He was seen last Thursday, March 21, 2024 at the emergency room and had chest x-ray, given antibiotics and instructions on use of inhalers. He states he only has left-sided rib pain but denies any chest pain. He has had a productive cough for white thick sputum. He has not had any fever. He does report an increase in heart rate due to the use of his inhalers. He did complete the steroids prescribed from the ED. He persists with his symptoms along with nasal congestion. Lima states he has not been taking his levocetirizine because he ran out . REVIEW OF SYSTEMS: A 12 point review of systems is negative except as noted in the HPI. Active Medical Problems: Active Problem Peripheral neuropathy due to type 2 06/04/2023 KIMBER MACK Seasonal allergic rhinitis J30.2 03/02/2023 ELIZABET ROBINS Nonalcoholic steatohepatitis K75.81 02/12/2023 ELIZABET ROBINS History of substance abuse F19.21 01/13/2023 ELIZABET ROBINS Obesity E66.9 07/29/2022 KIMBER MACK Diabetes mellitus type 2 E11.9 04/08/2022 MURRAY CRAIN Elevated liver enzymes level R94.5 04/30/2022 MURRAY CRAIN Sleep apnea G47.30 10/02/2021 MISAEL BALL Hypertension I10. 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 06/05/2016 MARCIAL GUZMAN Deep venous thrombosis of upper ext 11/02/2015 MARJORIE SAINI Nephrolithiasis N20.0 11/27/2023 ELIZABET ROBINS Hyperlipidemia E78.5 04/08/2022 MURRAY CRAIN Lower urinary tract symptoms due to 04/08/2022 MURRAY CRAIN Family history of prostate cancer V 10/17/2014 MARJORIE SAINI Schizoaffective disorder (SNOMED CT 08/31/2023 ELAINE VIERA Alcohol Dependence 303.90 07/25/2002 ERIBERTO TOLBERT Periodontal Disease NEC 523.8 08/28/2003 ERIBERTO TOLBERT GERD 530.81 08/28/2003 ERIBERTO TOLBERT Seizure disorder (SNOMED CT 6408171 12/19/2015 HUGO CALDERA REFRACTION DISORDER NOS 367.9 07/25/2002 YUMIKO LEI OD Meds: Active Outpatient Medications (including Supplies): ACCU-CHEK GUIDE (GLUCOSE) TEST STRIP USE 1 STRIP TO TEST ACTIVE BLOOD SUGARS TWO TIMES A WEEK ACCU-CHEK GUIDE ME (GLUCOSE) METER USE METER TO TEST BLOOD ACTIVE SUGARS TWICE A WEEK NEEDED ALCOHOL PREP PAD USE 1 PAD TOPICALLY TWICE A WEEK ACTIVE NEEDED TO CLEAN SKIN FOR INJECTION ETC AMLODIPINE BESYLATE 5MG TAB TAKE ONE TABLET BY MOUTH ONCE ACTIVE (S) DAILY FOR BLOOD PRESSURE/HEART, DO NOT TAKE WITH GRAPEFRUIT JUICE DOXYCYCLINE HYCLATE 50MG CAP TAKE ONE CAPSULE BY MOUTH ACTIVE TWICE DAILY FOR INFECTION CAUSED BY BACTERIA ERYTHROMYCIN 0.5% OPH OINT APPLY THIN RIBBON INTO EACH EYE ACTIVE TWICE DAILY NEEDED FOR EYE INFECTION FAMOTIDINE 20MG TAB TAKE ONE TABLET BY MOUTH DAILY FOR ACTIVE STOMACH ACID KETOTIFEN 0.025% OPH SOLN INSTILL 1 DROP INTO EACH EYE ACTIVE TWICE DAILY NEEDED FOR ALLERGIC CONJUNCTIVITIS (IF YOU WEAR CONTACT LENSES, WAIT 10 MINUTES BEFORE INSERTING LENSES) LACTOBACILLUS ACIDOPHILUS CAP TAKE 1 CAPSULE BY MOUTH ACTIVE TWICE DAILY LANCET,SOFTCLIX USE 1 LANCET DIRECTED TWICE A WEEK ACTIVE NEEDED TO TEST BLOOD SUGAR LEVOCETIRIZINE DIHYDROCHLORIDE 5MG TAB TAKE ONE TABLET BY ACTIVE MOUTH EVERY EVENING FOR ALLERGIES LIDOCAINE 5% PATCH APPLY 1 PATCH TOPICALLY EVERY 12 HOURS ACTIVE NEEDED (LEAVE PATCH ON FOR 12 HOURS, THEN REMOVE PATCH) METFORMIN HCL 1000MG TAB TAKE ONE TABLET BY MOUTH TWICE ACTIVE DAILY FOR DIABETES PEG 400 0.4%/PROP GLYCOL 0.3% OPH SOLN INSTILL 1 DROP INTO ACTIVE EACH EYE FOUR TIMES DAILY NEEDED DRY EYE Allergies: AKWA TEARS, DIFLUCAN, PHENYTOIN, FLUOROMETHOLONE, REFRESH TEARS, OXYCODONE LEVETIRACETAM Date Vital Measurement Qualifiers 03/28/2024 10:36 Temp F (C) 99.1 (37.3) Pulse 122 Respir 20 BP 132/97 Wt lbs (kg)[BMI] 208.1 (94.39)[35*] POx (L/Min)(%) 97 At Rest FOCUSED EXAMINATION GEN: WD, non-toxic HEENT: NC/AT EAC's: Patent with clear but slightly bulging TMs bilaterally Nares: Patent with rhinorrhea and mild cobblestone effect noted of the mucosa OP: Patent, uvula midline, postnasal drip noted Neck: supple, No LAD Lungs: Global wheezing all singer without accessory muscle use. COR: Regular rate and rhythm DATA: LDCT discussed with radiology (Dr. Leal): No acute findings. MDM: No clinical evidence of hypoxia or airway compromise at this time.Lima is agreeable to resuming his allergy medications. We will add DM/guaifenesin syrup along with Flonase and an extension of prednisone for the bronchial spasm. Continue with updraft nebulizer and albuterol as directed. RTC as needed. Mild tachycardia most likely due to use of albuterol. Lima reassured. Seek emergency evaluation for any red flags such as chest pain, worsening sense of shortness of breath, fevers etc. is able to verbalize understanding of plan of care. ASSESSMENT/PLAN Seasonal allergic rhinitis Acute Bronchitis, unspecified As above Lima able to verbalize understanding of plan of care and agrees. >> MEDICATIONS Reviewed and reconciled with Lima /es/ NICHELLE ISLAS MS,PA-C PHYSICIAN URBAN DESIGN CONSULTANT Signed: 03/28/2024 13:00 Receipt Acknowledged By: 03/28/2024 13:12 /gaetano/ CIERRA GREGORY Nurse Practitioner NICHELLE WEISS [facility]
--- OUTSIDE RECORDS SUMMARY | 2024-11-01 07:59 | XMS_ITS | Encounter Summary ---
Author Name [facility] [place] Address [address] [place] [address] Care Team Providers Care Registered Nurse Maternal Child Name Role Phone BERE RIOS Primary Care Provider Unavailabl e Insurance Providers: [...] Paul [facility] CE ORGANIZ [facility] Apr 18, 2018 [phone] WILLIS,MAR JUDITH SPOUSE [place] ([place]) [facility] CE ORGANIZ [facility] Apr 18, 2018 [phone] WILLIS,MAR JUDITH SPOUSE BCBS [facility] CE ORGANIZ [facility] SHARE ACTIV E Apr 18, 2018 [id number] WILLIS,MAR JUDITH SPOUSE BCBS OF [facility] CE ORGANIZ [facility] Apr 18, 2018 [id number] WILLIS,MAR JUDITH PATIENT BCBS OF [facility] CE ORGANIZ [facility] Apr 18, 2018 [id number] WILLIS,MAR JUDITH SPOUSE [place] OF [place] PREFERRED PROVIDER ORGANIZAT ION (PPO) [facility] AC Apr 18, 2018 [id number] [phone] WILLIS,MAR JUDITH SPOUSE BCBS OF [facility] CE ORGANIZ [facility] ACT Apr 18, 2018 [id number] WILLIS,MAR JUDITH SPOUSE BCBS OF [facility] CE ORGANIZ [facility] AC Apr 18, 2018 [id number] [phone] WILLIS,MAR JUDITH SPOUSE [place] PRESCRIPT ION [facility] AC Oct 19, 2022 [id number] [phone] WILLIS,LAVELLE AEL SPOUSE [place] PRESCRIPT ION RX22M A Oct 19, 2022 [id number] WILLIS,LAVELLE AEL PATIENT [place] PRESCRIPT ION RX22M B Oct 19, 2022 [id number] WILLIS,LAVELLE AEL PATIENT [place] PRESCRIPT I[place] OF [place] Oct 19, 2022 [id number] WILLIS, SPOUSE [place] PRESCRIPT ION RX22M B Oct 19, 2022 RX22MB [id number] WILLIS,MAR JUIDTH SPOUSE [place] PRESCRIPT ION RX Oct 19, 2022 [id number] [phone] [phone] WILLIS,MAR JUDITH SPOUSE [place] ([id number]) PRESCRIPT ION [place] OF [place] Oct 19, 2022 [id number] [phone] WILLIS,MAR JUDITH SPOUSE [place] ([facility] CE ORGANIZ [facility] AC Apr 18, 2018 [id number] WILLIS,EDILBERTO SOTELOZA SPOUSE [employer] [place] PRESCRIPT [place] 2018 L4TA [id number] WILLIS,EDILBERTO JUDITH SPOUSE [employer] ([id number]) PRESCRIPT ION Apr 18, 2018 L4TA [id number] WILLIS,EDILBERTO JUDITH SPOUSE [employer] ([id number]) PRESCRIPT ION L4TA* Apr 18, 2020 L4TA [id number] WILLIS,EDILBERTO PALAFOXA SPOUSE [employer] ([id number]) PRESCRIPT ION L4TA* Apr 18, 2018 L4TA [id number] WILLIS,EDILBERTO PALAFOXA SPOUSE [employer] ([id number]) PRESCRIPT ION L4TA Apr 18, 2018 L4TA [id number] WILLIS,EDILBERTO SOTELOZA SPOUSE [employer] ([id number]) PRESCRIPT ION Apr 18, 2018 L4TA [id number] WILLIS,EDILBERTO JUDITH SPOUSE [employer] ([id number]) PRESCRIPT ION Apr 18, 2018 L4TA [id number] WILLIS,EDILBERTO WONG SPOUSE [employer]-MINOR BROGATION PRESCRIPT ION [place] OF [place] Apr 18, 2020 L4TA [id number] WILLIS,EDILBERTO SOTELOZA SPOUSE [facility] ORGANIZAT ION W/OUT OF NETWORK BENEFITS [facility] ACT Apr 18, 2018 [id number] WILLISEDILBERTO SPOUSE [place] BCBS [facility] (BLUECAR) [facility] CE ORGANIZAT ION [facility] AC Apr 18, 2018 [id number] WILLIS,EDILBERTO WONG SPOUSE MEDICARE (WNR) MEDICARE (M) PART A Mar 19, 1990 PART A [id number] [phone] WILLIS,LAVELLE AEL PATIENT MEDICARE (WNR) MEDICARE (M) PART A Mar 19, 1990 PART A [id number] [phone] WILLIS,LAVELLE AEL PATIENT MEDICARE (WNR) MEDICARE (M) PART A Mar 19, 1990 PART A [id number] [phone] WILLIS,LAVELLE AEL PATIENT MEDICARE (WNR) MEDICARE (M) PART A Mar 19, 1990 PART A [id number] [phone] WILLIS,LAVELLE AEL PATIENT MEDICARE (WNR) MEDICARE (M) PART A Mar 19, 1990 PART A [id number] WILLIS,LAVELLE AEL PATIENT MEDICARE (WNR) MEDICARE (M) PART A Mar 19, 1990 PART A [id number] WILLIS,LAVELLE AEL PATIENT MEDICARE (WNR) MEDICARE () PART A Mar 19, 1990 PART A [id number] WILLIS,LAVELLE AEL PATIENT MEDICARE (WNR) MEDICARE () PART A Mar 19, 1990 PART A [id number] [phone] WILLIS,LAVELLE AEL PATIENT MEDICARE (WNR) MEDICARE (M) PART A Mar 19, 1990 PART A [id number] [phone] WILLIS,LAVELLE AEL PATIENT MEDICARE (WNR) MEDICARE (M) PART A Mar 19, 1990 PART A [id number] [phone] WILLIS,LAVELLE AEL PATIENT MEDICARE (WNR) MEDICARE (M) PART A Mar 19, 1990 PART A [id number] [phone] WILLIS,LAVELLE AEL PATIENT Selected Encounter This section includes the information on record at [place] for the Encounter. Date/Time Encounter Type Encounter Description Reason Provider Source Mar 28, 2024 12:12 PM QNHP OL DIG ASSMT&MGMT 11-20 PULMONARY/CHEST ICD-10-CM Z12.2 Encntr screen for malignant neoplasm of respiratory organs ADRIÁN HARDY CCA IHE Encounter Template Text not used by [facility] Assessments - Encounter Diagnoses This section includes the primary and secondary diagnoses documented for the Encounter. Date/Time Primary/Secondary Diagnosis Diagnosis Name Provider Source Mar 28, 2024 12:20 PM PRIMARY Encntr screen for malignant neoplasm of respiratory organs ADRIÁN HARDY CCA L [place] [facility] [place] [facility] Plan of Treatment: Future Appointments (+ 6 months) and Future Tests (+/- 45 days) The Plan of Treatment section includes future care activities for the patient from all [place] [facility]. This section includes future appointments and future [...] - MEDICINE [place] [facility] [place] [facility] May 30, 2024 08:30 AM AMBULATORY - MEDICINE [place] [facility] [place] [facility] May 30, 2024 09:30 AM AMBULATORY - MEDICINE [place] [facility] [place] [facility] Jun 01, 2024 10:00 AM AMBULATORY - MEDICINE [place] [facility] [place] [facility] Jun 01, 2024 11:30 AM AMBULATORY - MEDICINE [place] [facility] [place] [facility] Jun 28, 2024 11:30 AM AMBULATORY - MEDICINE [place] [facility] [place] [facility] Jul 08, 2024 10:30 AM AMBULATORY - MEDICINE [place] [facility] [place] [facility] Jul 13, 2024 09:30 AM AMBULATORY - MEDICINE [place] [facility] [place] [facility] Aug 12, 2024 09:30 AM AMBULATORY - MEDICINE [place] [facility] [place] [facility] Aug 22, 2024 09:00 AM AMBULATORY - MEDICINE [place] [facility] [place] [facility] Sep 21, 2024 09:00 AM AMBULATORY - MEDICINE [place] [facility] [place] [facility] Sep 21, 2024 10:00 AM AMBULATORY - MEDICINE [place] [facility] [place] [facility] Vital Signs: All taken on the encounter date This section contains inpatient and outpatient Vital Signs collected on the date of the Encounter. Date/Time Temperature Pulse Blood Pressure Respiratory Rate SP02 Pain Height Weight Body Mass Index Source Mar 28, 2024 10:36 AM 99.1 122 132/97 20 97 208.1 35 [place] [facility] [place] [facility] Social History: Smoking Status (Most current) [...] took place. Date/Time Current Smoking Status Comment [facility] Nov 27, 2023 11:00 AM VA-TOBACCO FOR[facility]ER [facility] Tobacco Use History This section includes a history of the smoking, or tobacco-related health factors, that were collected on or before the date of the Encounter. The data comes from the [place] facility where the Encounter took place. Date/Time Smoking Status/Tobac co Use Comment [facility] Nov 27, 2023 11:00 AM VA-TOBACCO QUIT 15 YRS OR MORE [place] [facility] [place] [facility] Dec 02, 2022 08:00 AM VA-TOBACCO FORMER USER [place] [facility] [place] [facility] Dec 02, 2022 08:00 AM VA-TOBACCO QUIT 15 YRS OR MORE [place] [facility] [place] [facility] Nov 05, 2021 10:30 AM VA-TOBACCO FORMER USER [place] [facility] [place] [facility] Nov 05, 2021 10:30 AM VA-TOBACCO QUIT 1 TO < 5 YRS [place] [facility] [place] [facility] Sep 14, 2020 02:00 PM VA-TOBACCO FORMER USER [place] [facility] [place] [facility] Sep 14, 2020 02:00 PM VA-TOBACCO QUIT 5 TO < 15 YRS [place] [facility] [place] [facility] Jan 22, 2018 03:40 PM QUIT TOBACCO USE > 7 YEARS AGO [place] [facility] [place] [facility] Jun 04, 2016 02:01 PM CURRENT SMOKER been smoking pass 20 yrs [place] [facility] [place] [facility] Jun 04, 2016 02:01 PM V1-PT DECLINES REF TO TOBACCO CESS PRGM [place] [facility] [place] [facility] Jun 04, 2016 02:01 PM V1-PT THINKING ABOUT QUIT TOBACCO USE [place] [facility] [place] [facility] Jul 18, 2014 03:31 PM V1-PT DECLINES REF TO TOBACCO CESS PRGM [facility] Jul 18, 2014 03:31 PM V1-PT DECLINES TOBACCO CESSATION MEDS [facility] Jul 18, 2014 03:31 PM V1-PT NOT INTERESTED IN QUIT TOBACCO USE [facility] Jan 09, 2014 10:43 AM CURRENT SMOKER pt smokes 1 pk of cigarettes per day. [facility] Jan 09, 2014 10:43 AM V1-PT THINKING ABOUT QUIT TOBACCO USE [facility] Aug 28, 2003 10:47 AM CURRENT SMOKER one pack q 6 days - he has cut down from 3 PPD. He is in the process of quitting [facility] Radiology Reports: +/- 30 days of [...] the Encounter. The data comes from all [place] treatment facilities. Date/Time Radiology Report Provider Source Mar 28, 2024 09:45 AM LDCT LUNG CANCER SCREENING: CHAYA PEDRO [id number] -[id number] M Exm Date: MAR 28, 2024@09:45 Req Phys: BERE RIOS Pat Loc: ZZCWM/NO/LCS ADMIN (Req'g Loc) Img Loc: NHM/CT Service: Unknown [facility] , (Case 16 COMPLETE) LDCT LUNG CANCER SCREENING (CT Detailed) CPT:83980 Reason for Study: LUNG CANCER SCREENING Clinical History: QUIT SMOKING IN 2013 BASELINE [facility] LDCT 03/30/2023: LUNG RADS 1 no new or concerning pulmonary mass or nodules. Plan for repeat in 12 months. Report Status: Verified Date Reported: MAR 28, 2024 Date Verified: MAR 28, 2024 Adjunct Teacher E-Sig:/ES/RAYMOND LEAL JR Report: Study: Lung cancer [...] reviewed. Secondary computer-aided detection with post-processing from [employer] is used. The lack of intravenous contrast [...] Primary Interpreting Staff: RAYMOND LEAL JR, Radiologist (Adjunct Teacher) /RAYMOND SHELTON JR [facility] [place] [facility] Encounter Notes: All associated encounter notes This section contains the clinical notes associated to the Encounter. Date/Time Encounter Note(s) Provider Source Mar 28, 2024 12:20 PM PREVENTIVE MEDICINE RISK ASSESSMENT SCREENING NOTE: LOCAL TITLE: LUNG CANCER SCREENING DOCUMENTATION STANDARD TITLE: PREVENTIVE MEDICINE RISK ASSESSMENT SCREENING NO DATE OF NOTE: MAR 28, 2024@12:20 ENTRY DATE: MAR 28, 2024@12:20:50 AUTHOR: REGI HARDY COSIGNER: URGENCY: STATUS: COMPLETED Mar Dear Mr. Pedro: Your recent lung cancer screening CT scan showed NO abnormal findings that are concerning for lung cancer. This result is reassuring news. If there are additional findings, we will alert your primary care team. A copy if the results from your Low-Dose CT scan done on 03/28/2024 are enclosed with this letter. Your next lung cancer screening CT scan is due in 12 months, MARCH 2025. You may reach our radiology team M-F between the hours of 8am and 4pm at [phone] for scheduling purposes. If you are experiencing an upper respiratory illness like a cold or the flu, please get your scan 4 weeks after your symptoms have gone away. Lung cancer screening can detect lung cancer, but it does not prevent it. Rarely, a CT scan can miss a small lung cancer. Contact your primary care provider if you develop new symptoms like worsening shortness of breath, change in a cough, or coughing up blood. If you still smoke cigarettes, we can help you quit. We understand that quitting cigarette smoking is difficult, but it is the best way to improve your health. When you want help, let your primary care provider know. You can also call 7-610-XIRN-VET ( ) or visit [employer].smokefree.gov. Please contact us with questions or concerns about lung cancer screening. Sincerely, Regi MACHADO, RN, OCN Lung Cancer Screening Nurse Enclosures: brochure entitled, My Lung Cancer Screening Did Not Show Lung Cancer /es/ REGI MACHADO,RN,OCN LUNG CANCER SCREENING NURSE NAVIGATOR Signed: 03/28/2024 12:22 REGI HARDY [place] [facility] [place] [facility] Mar 28, 2024 12:12 PM PREVENTIVE MEDICINE RISK ASSESSMENT SCREENING NOTE: LOCAL TITLE: LUNG CANCER SCREENING DOCUMENTATION STANDARD TITLE: PREVENTIVE MEDICINE RISK ASSESSMENT SCREENING NO DATE OF NOTE: MAR 28, 2024@12:12 ENTRY DATE: MAR 28, 2024@12:12:34 AUTHOR: REGI HARDY EXP COSIGNER: URGENCY: STATUS: COMPLETED NO LUNG NODULES or TRACKING OF NODULE NOT INDICATED per guidelines (e.g., clearly benign/some small nodules). Date of image: Date: March 28, 2024 LDCT Scan Results: Most recent LDCT Scan negative for lung nodules Comment: Lung Rads 1 Index Nodule: None. Other Nodules: None. INCIDENTAL FINDINGS WILL BE MANAGED DEEMED CLINICALLY APPROPRIATE BY PCP The following incidental findings were noted: Abdominal OR Thoracic aortic dilation/aneurysm Comment: Minimally enlarged 4.1 cm AP stable ascending thoracic aortic aneurysm. Upper Abdomen: Upper abdomen: Hepatic steatotic changes. Other: Emphysema: Mild centrilobular and paraseptal emphysematous changes with associated scattered parenchymal scarring is unchanged. Visualized coronary artery calcifications: Atherosclerotic changes of the aorta and coronary arteries. I am notifying the Primary Care Provider for information, and for follow-up of incidental findings, if indicated. Comment: Bere Rios QUALITY CONTROL INSPECTOR HEADING and PACT team via second signer in CPRS Plan: Continue routine annual lung cancer screening. Patient Notification of results: Results letter sent to patient. Comment: Results letter and educational materials mailed to address on file. Patient contacted by telephone. Comment: Call placed to the [place]. Non-urgent voicemail left advising that no pulmonary nodules or masses were seen and the plan is to repeat imaging with [facility] LDCT again in one year. Direct call back number for [facility] Coordinator provided. /gaetano/ REGI BERMANN,RN,OCN LUNG CANCER SCREENING NURSE NAVIGATOR Signed: 03/28/2024 12:20 Receipt Acknowledged By: 03/28/2024 12:37 /es/ CIERRA GREGORY Nurse Practitioner 03/28/2024 13:30 /gaetano/ DEBBIE GORMAN, MSN, RN, CNL PRIMARY CARE TEAM NURSE 03/28/2024 13:16 /gaetano/ Marcia Maurer, clean rice grader and reel tender Staff Nurse REGI HARDY [facility]
--- OUTSIDE RECORDS SUMMARY | 2024-11-01 07:59 | XMS_ITS ---
Author Name [place] Address [address] [place] [address] Care Team Providers Care Superintendent Power Name Role Phone ELIZABET ROBINS Primary Care [...] [facility] CE ORGANIZ [facility] AC Apr 18, 2018 [id number] WILLIS,MAR JUDITH SPOUSE ANTHEM BCBS OF [place] ([place]ARD) [facility] CE ORGANIZ [facility] Apr 18, 2018 [id number] WILLIS,MAR JUDITH SPOUSE BCBS [facility] CE ORGANIZ [facility] SHARE ACTIV E Apr 18, 2018 [id number] WILLIS,MAR JUDITH SPOUSE BCBS OF [facility] CE ORGANIZ [facility] Apr 18, 2018 [id number] WILLIS,MAR JUDITH PATIENT BCBS OF [facility] CE ORGANIZ [facility] Apr 18, 2018 [id number] WILLIS,MAR JUDITH SPOUSE BCBS OF [place] PREFERRED PROVIDER ORGANIZAT ION (PPO) [facility] AC Apr 18, 2018 [id number] [id number] [phone] WILLIS,MAR JUDITH SPOUSE BCBS OF [facility] CE ORGANIZ [facility] ACT Apr 18, 2018 [id number] WILLIS,MAR JUDITH SPOUSE BCBS OF [facility] CE ORGANIZ [facility] AC Apr 18, 2018 [id number] [phone] WILLIS,MAR JUDITH SPOUSE [place] PRESCRIPT ION [facility] AC Oct 19, 2022 RX22MB [id number] [phone] WILLIS,LAVELLE AEL SPOUSE CAREMARK PRESCRIPT ION RX22M A Oct 19, 2022 RX22MA [id number] WILLIS,LAVELLE AEL PATIENT CAREMARK PRESCRIPT ION RX22M B Oct 19, 2022 RX22MB [id number] WILLIS,LAVELLE AEL PATIENT [place] PRESCRIPT ION BCBS OF [place] Oct 19, 2022 RX22MA [id number] [phone] WILLIS, SPOUSE CAREMARK PRESCRIPT ION RX22M B Oct 19, 2022 RX22MB [id number] [phone] WILLIS,MAR JUDITH SPOUSE [place] PRESCRIPT ION RX Oct 19, 2022 RX22MB [id number] [phone] WILLIS,MAR JUDITH SPOUSE [place] ([id number]) PRESCRIPT ION [place] OF [place] Oct 19, 2022 RX22MB [id number] WILLIS,MAR JUDITH SPOUSE [place] BCBS ([facility] CE ORGANIZ [facility] AC Apr 18, 2018 [id number] [phone] WILLIS,EDILBERTO SOTELOZA SPOUSE EXPRESS [place]CRIPTS PRESCRIPT I[place]BS [place] 2018 L4TA [id number] WILLIS,EDILBERTO SOTELOZA SPOUSE EXPRESS SCRIPTS ([id number]) PRESCRIPT ION Apr 18, 2018 L4TA [id number] WILLIS,EDILBERTO SOTELOZA SPOUSE EXPRESS SCRIPTS ([id number]) PRESCRIPT ION L4TA* Apr 18, 2020 L4TA [id number] WILLISEDILBERTOA SPOUSE EXPRESS SCRIPTS ([id number]) PRESCRIPT ION L4TA* Apr 18, 2018 L4TA [id number] WILLIS,EDILBERTO PALAFOXA SPOUSE EXPRESS SCRIPTS ([id number]) PRESCRIPT ION L4TA Apr 18, 2018 L4TA [id number] WILLIS,EDILBERTO WONG SPOUSE EXPRESS SCRIPTS ([id number]) PRESCRIPT ION Apr 18, 2018 L4TA [id number] WILLISEDILBERTO SPOUSE EXPRESS SCRIPTS ([id number]) PRESCRIPT ION Apr 18, 2018 L4TA [id number] WILLISEDILBERTO SPOUSE EXPRESS SCRIPTS-MINOR BROGATION PRESCRIPT ION BCBS OF [place] Apr 18, 2020 L4TA [id number] WILLISEDILBERTO SPOUSE REEDS [facility]ALTH [facility] CE ORGANIZAT ION W/OUT OF NETWORK BENEFITS [facility] RSD ACT Apr 18, 2018 [id number] [phone] EDILBERTO PEDRO SPOUSE [place]IG[place] BCBS [facility] (BLUECAR) [facility] CE ORGAN[facility]AT ION [facility] AC Apr 18, 2018 [id number] EDILBERTO PEDRO SPOUSE MEDICARE (WNR) MEDICARE (M) PART A Mar 19, 1990 PART A [id number] [phone] WILLISLAVELLE AEL PATIENT MEDICARE (WNR) MEDICARE (M) PART A Mar 19, 1990 PART A [id number] [phone] WILLIS,LAVELLE AEL PATIENT MEDICARE (WNR) MEDICARE (M) PART A Mar 19, 1990 PART A [id number] [phone] WILLIS,LAVELLE AEL PATIENT MEDICARE (WNR) MEDICARE (M) PART A Mar 19, 1990 PART A [id number] [phone] WILLIS,LAVELLE AEL PATIENT MEDICARE (WNR) MEDICARE (M) PART A Mar 19, 1990 PART A [id number] WILLIS,LAVELLE AEL PATIENT MEDICARE (WNR) MEDICARE (M) PART A Mar 19, 1990 PART A [id number] [phone] WILLIS,LAVELLE AEL PATIENT MEDICARE (WNR) MEDICARE (M) PART A Mar 19, 1990 PART A [id number] WILLIS,LAVELLE AEL PATIENT MEDICARE (WNR) MEDICARE (M) PART A Mar 19, 1990 PART A [id number] [phone] WILLIS,LAVELLE AEL PATIENT MEDICARE (WNR) MEDICARE (M) PART A Mar 19, 1990 PART A [id number] WILLIS,LAVELLE AEL PATIENT MEDICARE (WNR) MEDICARE (M) PART A Mar 19, 1990 PART A [id number] WILLIS,LAVELLE AEL PATIENT MEDICARE (WNR) MEDICARE (M) PART A Mar 19, 1990 PART A [id number] [id number] [phone] WILLIS,LAVELLE AEL PATIENT Selected Encounter This section includes the information on record at [place] for the Encounter. Date/Time Encounter Type Encounter Description Reason Pro vider Source Feb 04, 2024 12:00 AM Outpatient Encounter COMMUNITY CARE CONSULT IHE Encounter Template Text not used by [place] Plan of Treatment: Future Appointments (+ 6 [...] 20 appointments. The data comes from all [place] treatment facilities. Appointment Date/Time Appointment Type Appointme nt Facility Name February 17, 2024 12:00 PM AMBULATORY - MEDICINE [facility] [place] [facility] Mar 28, 2024 10:00 AM AMBULATORY - NONE [facility] [place] [facility] Mar 28, 2024 10:30 AM AMBULATORY - MEDICINE [facility] [place] [facility] Mar 28, 2024 01:00 PM AMBULATORY - MEDICINE [facility] [place] [facility] Apr 06, 2024 01:30 PM AMBULATORY - MEDICINE [facility] [place] [facility] May 30, 2024 08:30 AM AMBULATORY - MEDICINE [facility] [place] [facility] May 30, 2024 09:30 AM AMBULATORY - MEDICINE [facility] [place] [facility] Jun 01, 2024 10:00 AM AMBULATORY - MEDICINE [facility] [facility] Jun 01, 2024 11:30 AM AMBULATORY - MEDICINE [facility] [facility] Jun 28, 2024 11:30 AM AMBULATORY - MEDICINE [facility] [place] [facility] Jul 08, 2024 10:30 AM AMBULATORY - MEDICINE [facility] [facility] Jul 13, 2024 09:30 AM AMBULATORY - MEDICINE [facility] [place] [facility] Lab Results: +/- 30 days of the encounter This section includes the Chemistry and Hematology Lab Results on record with [place] for the patient. Radiology Reports and Pathology Reports are provided separately, in subsequent sections. Lab Results This section contains the Chemistry/Hematology Results that were resulted 30 days before or 30 daysafter the date of the Encounter. Date/Time Source Result Type Result - Unit Interpretation Reference Range Comment Feb 16, 2024 09:27 AM [facility] [place] [facility] HEMOGLOBIN A1C PANEL Specimen Type: BLOOD Comment: [...] Dec 10, 2023 06:17 PM Reporting Lab: [facility] [address] [facility] [address] Performing Lab: [address] [address] HEMOGLOBIN A1C 6.2 H 4.0-5.6 Feb 16, 2024 09:27 AM [facility] BASIC METABOLIC PANEL (non-fasting) Specimen Type: SERUM No comment entered. Ordering Provider: KIMBER MACK Report Released Date/Time: Dec 10, 2023 06:17 PM Reporting Lab: [facility] [address] [facility] [address] Performing Lab: [address] [address] UREA NITROGEN 11 mg/dL 7-25 GLUCOSE 112 [...] and tobacco- related health factors from the [place] facility where the Encounter took place. Current Smoking Status This section includes the most current smoking, or tobacco-related health factor, from the [place] facility where the Encounter took place. Date/Time Current Smoking Status Comment Enrique sotelo Nov 27, 2023 11:00 AM VA-TOBACCO FORMER USER [facility] Tobacco Use History This section includes a history of the smoking, or tobacco-related health factors, that were collected on or before the date of the Encounter. The data comes from the [place] facility where the Encounter took place. Date/Time Smoking Status/Tobac co Use Comment Facility Nov 27, 2023 11:00 AM [place]-TOBACCO QUIT 15 YRS OR MORE [facility] Dec 02, 2022 08:00 AM [facility] Dec 02, 2022 08:00 AM VA-TOBACCO QUIT 15 YRS OR MORE [facility] Nov 05, 2021 10:30 AM VA-TOBACCO FORMER USER [facility] Nov 05, 2021 10:30 AM VA-TOBACCO QUIT 1 TO < 5 YRS [facility] Sep 14, 2020 02:00 PM [facility] Sep 14, 2020 02:00 PM VA-TOBACCO QUIT 5 TO < 15 YRS [facility] Jan 22, 2018 03:40 PM QUIT TOBACCO USE > 7 YEARS AGO [facility] Jun 04, 2016 02:01 PM CURRENT SMOKER been smoking pass 20 yrs [facility] Jun 04, 2016 02:01 PM V1-PT DECLINES REF TO TOBACCO CESS PR[facility] Jun 04, 2016 02:01 PM V1-PT THINKING ABOUT QUIT [facility]ACCO [facility] Jul 18, 2014 03:31 PM V1-PT DECLINES REF TO TOBACCO CESS PR[facility] Jul 18, 2014 03:31 PM V1-PT DECLINES TOBACCO CESSATION MEDS [facility] Jul 18, 2014 03:31 PM V1-PT NOT INTERESTED IN QUIT TOBACCO [facility] [place] [facility] Jan 09, 2014 10:43 AM CURRENT SMOKER pt smokes 1 pk of cigarettes per day. [facility] Jan 09, 2014 10:43 AM V1-PT THINKING ABOUT QUIT TOBACCO [facility] Aug 28, 2003 10:47 AM CURRENT SMOKER one pack q 6 days - he has cut down from 3 PPD. He is in the process of quitting [facility] Encounter Notes: All associated encounter notes This section contains the clinical notes associated to the Encounter. Date/Time Encounter Note(s) Provider Source Feb 04, 2024 12:00 AM NONVA CONSULT: LOCAL TITLE: COMMUNITY CARE-CONSULT RESULT NOTE STANDARD TITLE: NONVA CONSULT DATE OF NOTE: FEB 04, 2024 ENTRY DATE: MARCH 07, 2024@06:10 AUTHOR: BRENDON MCGUIRE EXP COSIGNER: URGENCY: STATUS: COMPLETED VistA Imaging - Scanned Document SCANNED DOCUMENT SIGNATURE NOT REQUIRED Electronically Filed: 03/07/2024 by: SALVADOR MCGUIRE Flame Cutting Supervisor SALVADOR MCGUIRE [facility] Feb 04, 2024 12:00 AM NONVA CONSULT: LOCAL TITLE: COMMUNITY CARE-CONSULT RESULT NOTE STANDARD TITLE: NONVA CONSULT DATE OF NOTE: FEB 04, 2024 ENTRY DATE: JUL 01, 2024@11:06:29 AUTHOR: KELLI BRADEN EXP COSIGNER: URGENCY: STATUS: COMPLETED VistA Imaging - Scanned Document SCANNED DOCUMENT SIGNATURE NOT REQUIRED Electronically Filed: 07/01/2024 by: KELLI BRADEN TAXIMETER REPAIRER KELLI BRADEN [facility]
--- OUTSIDE RECORDS SUMMARY | 2024-11-01 07:59 | XMS_ITS | Encounter Summary ---
Author Name [place] Address [address] [place] [address] Care Team Providers Care Media Services Coordinator Name Role Phone ELIZABET ROBINS Primary Care [...] [facility] CE ORGANIZ [facility] AC Apr 18, 2018 [id number] WILLIS,MAR JUDITH SPOUSE ANTHEM BCBS OF [place] (BLUECARD) [facility] CE ORGANIZ [facility] Apr 18, 2018 [id number] WILLIS,MAR JUDITH SPOUSE BCBS [facility] ORGANIZ [facility] SHARE ACTIV E Apr 18, 2018 [id number] WILLIS,MAR JUDITH SPOUSE BCBS OF [facility] ORGANIZ [facility] Apr 18, 2018 [id number] WILLIS,MAR JUDITH PATIENT BCBS OF [facility] CE ORGANIZ BRENDA MCCAB[facility] Apr 18, 2018 [id number] WILLIS,MAR JUDITH SPOUSE BCBS OF [place] PREFERRED PROVIDER ORGANIZAT ION (PPO) [facility]ENDA MCCABE [facility] AC Apr 18, 2018 [id number] WILLIS,MAR JUDITH SPOUSE BCBS OF [facility] CE ORGANIZ BRENDA MCCABE [facility] ACT Apr 18, 2018 [id number] WILLIS,MAR JUDITH SPOUSE BCBS OF [facility] CE ORGANIZ BRENDA MCCABE [facility] AC Apr 18, 2018 [id number] [phone] WILLIS,MAR JUDITH SPOUSE CAR[place] PRESCRIPT ION RX22M A Oct 19, 2022 RX22MA [id number] WILLIS,LAVELLE AEL PATIENT CAREMARK PRESCRIPT ION RX22M B Oct 19, 2022 RX22MB [id number] WILLIS,LAVELLE AEL PATIENT CAREMARK PRESCRIPT ION [facility] AC Oct 19, 2022 RX22MB [id number] [phone] WILLIS,LAVELLE AEL SPOUSE [place] PRESCRIPT ION BCBS OF [place] Oct 19, 2022 RX22MA [id number] WILLIS, SPOUSE CAREMARK PRESCRIPT ION RX22M B Oct 19, 2022 RX22MB [id number] [phone] WILLIS,MAR JUDITH SPOUSE CAREMARK PRESCRIPT ION RX Oct 19, 2022 RX22MB [id number] [phone] WILLIS,MAR JUDITH SPOUSE [place] ([id number]) PRESCRIPT ION BCBS OF [place] Oct 19, 2022 RX22MB [id number] WILLIS,MAR JUDITH SPOUSE [place] BCBS ([facility] CE ORGANIZ BRENDA MCCABE [facility] AC Apr 18, 2018 [id number] WILLIS,EDILBERTO SOTELOZA SPOUSE EXPRESS [employer]CRIPTS PRESCRIPT ION BCBS [place] 2018 L4TA [id number] WILLIS,EDILBERTO JUDITH SPOUSE EXPRESS SCRIPTS ([id number]) PRESCRIPT ION Apr 18, 2018 L4TA [id number] WILLIS,EDILBERTO SOTELOZA SPOUSE EXPRESS SCRIPTS ([id number]) PRESCRIPT ION L4TA* Apr 18, 2020 L4TA [id number] WILLIS,EDILBERTO PALAFOXA SPOUSE EXPRESS SCRIPTS ([id number]) PRESCRIPT ION L4TA* Apr 18, 2018 L4TA [id number] WILLIS,EDILBERTO PALAFOXA SPOUSE EXPRESS SCRIPTS ([id number]) PRESCRIPT ION L4TA Apr 18, 2018 L4TA [id number] WILLIS,EDILBERTO SOTELOZA SPOUSE EXPRESS SCRIPTS ([id number]) PRESCRIPT ION Apr 18, 2018 L4TA [id number] 32 WILLISEDILBERTOZA SPOUSE EXPRESS SCRIPTS ([id number]) PRESCRIPT ION Apr 18, 2018 L4TA [id number] WILLIS,EDILBERTO WONG SPOUSE EXPRESS SCRIPTS-MINOR BROGATION PRESCRIPT ION BCBS OF [place] Apr 18, 2020 L4TA [id number] WILLIS,EDILBERTO WONG SPOUSE [facility] CE ORGANIZAT ION W/OUT OF NETWORK BENEFITS [facility] ACT Apr 18, 2018 [id number] WILLISEDILBERTO SPOUSE [place] BCBS [facility] CE ORGANIZAT ION [facility] AC Apr 18, 2018 [id number] WILLISEDILBERTO SPOUSE MEDICARE (WNR) MEDICARE (M) PART A Mar 19, 1990 PART A [id number] WILLISLAVELLE AEL PATIENT MEDICARE (WNR) MEDICARE (M) PART A Mar 19, 1990 PART A [id number] [phone] WILLIS,LAVELLE AEL PATIENT MEDICARE (WNR) MEDICARE (M) PART A Mar 19, 1990 PART A [id number] [phone] WILLIS,LAVELLE AEL PATIENT MEDICARE (WNR) MEDICARE (M) PART A Mar 19, 1990 PART A [id number] [phone] WILLIS,LAVELLE AEL PATIENT MEDICARE (WNR) MEDICARE (M) PART A Mar 19, 1990 PART A [id number] WILLIS,LAVELLE AEL PATIENT MEDICARE (WNR) MEDICARE (M) PART A Mar 19, 1990 PART A [id number] WILLIS,LAVELLE AEL PATIENT MEDICARE (WNR) MEDICARE (M) PART A Mar 19, 1990 PART A [id number] WILILS,LAVELLE AEL PATIENT MEDICARE (WNR) MEDICARE (M) PART A Mar 19, 1990 PART A [id number] WILLIS,LAVELLE AEL PATIENT MEDICARE (WNR) MEDICARE (M) PART A Mar 19, 1990 PART A [id number] WILLIS,LAVELLE AEL PATIENT MEDICARE (WNR) MEDICARE (M) PART A Mar 19, 1990 PART A [id number] WILLIS,LAVELLE AEL PATIENT MEDICARE (WNR) MEDICARE (M) PART A Mar 19, 1990 PART A [id number] WILLIS,LAVELLE AEL PATIENT Selected Encounter This section includes the information on record at [place] for the Encounter. Date/Time Encounter Type Encounter Description Reason Pro vider Source Mar 28, 2024 12:00 AM Outpatient Encounter EVENT (HISTORICAL) IHE Encounter Template Text not used by [place] Plan of Treatment: Future Appointments (+ 6 [...] 20 appointments. The data comes from all [place] treatment facilities. Appointment Date/Time Appointment Type Appointme nt Facility Name Apr 06, 2024 01:30 PM AMBULATORY - MEDICINE [facility] [place] [facility] May 30, 2024 08:30 AM AMBULATORY - MEDICINE [facility] [place] [facility] May 30, 2024 09:30 AM AMBULATORY - MEDICINE [facility] [place] [facility] Jun 01, 2024 10:00 AM AMBULATORY - MEDICINE [facility] [place] [facility] Jun 01, 2024 11:30 AM AMBULATORY - MEDICINE [facility] [place] [facility] Jun 28, 2024 11:30 AM AMBULATORY - MEDICINE [facility] [place] [facility] Jul 08, 2024 10:30 AM AMBULATORY - MEDICINE [facility] [place] [facility] Jul 13, 2024 09:30 AM AMBULATORY - MEDICINE [facility] [place] [facility] Aug 12, 2024 09:30 AM AMBULATORY - MEDICINE [facility] [place] [facility] Aug 22, 2024 09:00 AM AMBULATORY - MEDICINE [facility] [place] [facility] Sep 21, 2024 09:00 AM AMBULATORY - MEDICINE [facility] [place] [facility] Sep 21, 2024 10:00 AM AMBULATORY - MEDICINE [facility] [place] [facility] Vital Signs: All taken on the encounter date This section contains inpatient and outpatient Vital Signs collected on the date of the Encounter. Date/Time Temperature Pulse Blood Pressure Respiratory Rate SP02 Pain Height Weight Body Mass Index Source Mar 28, 2024 10:36 AM 99.1 122 132/97 20 97 208.1 35 [place] [facility] Social History: Smoking Status (Most current) and Tobacco Use (All prior to encounter date) This section includes the most current, and the historical, smoking and tobacco- related health factors from the [place] facility where the Encounter took place. Current Smoking Status This section includes the most current smoking, or tobacco-related health factor, from the [place] facility where the Encounter took place. Date/Time Current Smoking Status Comment Enrique shannon Nov 27, 2023 11:00 AM [facility] Tobacco Use History This section includes a history of the smoking, or tobacco-related health factors, that were collected on or before the date of the Encounter. The data comes from the [facility] where the Encounter took place. Date/Time Smoking Status/Tobac co Use Comment Facility Nov 27, 2023 11:00 AM VA-TOBACCO QUIT 15 YRS OR MORE [facility] Dec 02, 2022 08:00 AM VA-TOBACCO FORMER USER [place] [facility] Dec 02, 2022 08:00 AM VA-TOBACCO QUIT 15 YRS OR MORE [facility] Nov 05, 2021 10:30 AM [facility] Nov 05, 2021 10:30 AM VA-TOBACCO QUIT 1 TO < 5 YRS [facility] Sep 14, 2020 02:00 PM [facility]ACCO [facility] [place] [facility] Sep 14, 2020 02:00 PM VA-TOBACCO QUIT 5 TO < 15 YRS [facility] [place] [facility] Jan 22, 2018 03:40 PM QUIT TOBACCO USE > 7 YEARS AGO [facility] Jun 04, 2016 02:01 PM CURRENT SMOKER been smoking pass 20 yrs [facility] [place] [facility] Jun 04, 2016 02:01 PM V1-PT DECLINES REF TO TOBACCO CESS PRGM [facility] Jun 04, 2016 02:01 PM V1-PT THINKING ABOUT QUIT TOBACCO USE [facility] [place] [facility] Jul 18, 2014 03:31 PM V1-PT DECLINES REF TO TOBACCO CESS PRGM [facility] [place] [facility] Jul 18, 2014 03:31 PM V1-PT DECLINES TOBACCO CESSATION MEDS [facility] Jul 18, 2014 03:31 PM V1-PT NOT INTERESTED IN QUIT TOBACCO USE [facility] Jan 09, 2014 10:43 AM CURRENT SMOKER pt smokes 1 pk of cigarettes per day. [facility]N [facility] Jan 09, 2014 10:43 AM V1-PT THINKING ABOUT QUIT TOBACCO USE [facility] Aug 28, 2003 10:47 AM CURRENT SMOKER one pack q 6 days - he has cut down from 3 PPD. He is in the process of quitting [facility] Radiology Reports: +/- 30 days of the [...] the Encounter. The data comes from all [place] treatment facilities. Date/Time Radiology Report Provider Source Mar 28, 2024 09:45 AM LDCT LUNG CANCER SCREENING: CHAYA PEDRO [id number] -[id number] M Exm Date: MAR 28, 2024@09:45 Req Phys: ELIZABET ROBINS Pat Loc: ZZCWM/NO/LCS ADMIN (Req'g Loc) Img Loc: NHM/CT Service: Unknown [facility] , (Case 16 COMPLETE) LDCT LUNG CANCER SCREENING (CT Detailed) CPT:85837 Reason for Study: LUNG CANCER SCREENING Clinical History: QUIT SMOKING IN 2012 BASELINE LCS LDCT 03/30/2023: LUNG RADS 1 no new or concerning pulmonary mass or nodules. Plan for repeat in 12 months. Report Status: Verified Date Reported: MAR 28, 2024 Date Verified: MAR 28, 2024 Tool And Fixture Repairer E-Sig:/ES/RAYMOND LEAL JR Report: Study: Lung cancer [...] reviewed. Secondary computer-aided detection with post-processing from [employer] is used. The lack of intravenous contrast [...] Primary Interpreting Staff: RAYMOND LEAL JR, Radiologist (Tool And Fixture Repairer) /RAYMOND SHELTON JR [facility]
--- OUTSIDE RECORDS SUMMARY | 2024-11-01 07:59 | XMS_ITS | Encounter Summary ---
Author Name [place] Address [address] [place] [address] Care Team Providers Care Manager Net Name Role Phone ELIZABET ROBINS Primary Care [...] Paul's Name Patient's Relationship to Policy Paul [facility] CE ORGANIZ [facility] AC Apr 18, 2018 [id number] WILLIS,MAR JUDITH SPOUSE ANTHEM BC[place] OF [place] ([place]ARD) [facility] CE ORGANIZ DCTRISTEN [facility] Apr 18, 2018 [id number] WILLIS,MAR JUDITH SPOUSE BCBS FORMERLY [facility] CE ORGANIZ [facility] SHARE ACTIV E Apr 18, 2018 [id number] WILLIS,MAR JUDITH SPOUSE [facility]BS OF [facility] ORGANIZ [facility] Apr 18, 2018 [id number] [phone] WILLIS,MAR JUDITH PATIENT BCBS OF [facility] CE ORGANIZ BRENDA MCCABE [facility] Apr 18, 2018 [id number] WILLIS,MAR JUDITH SPOUSE [place] PREFERRED PROVIDER ORGANIZAT ION (PPO) BRENDA MCCABE [facility] AC Apr 18, 2018 [id number] WILLIS,MAR JUDITH SPOUSE BCBS OF [facility] CE ORGANIZ BRENDA MCCABE [facility] ACT Apr 18, 2018 [id number] WILLIS,MAR JUDITH SPOUSE BCBS OF [facility] CE ORGANIZ BRENDA MCCABE [facility] AC Apr 18, 2018 [id number] [phone] WILLIS,MAR JUDITH SPOUSE [place] PRESCRIPT ION RX22M B Oct 19, 2022 [id number] [id number] [phone] WILLIS,MAR JUDITH SPOUSE [place] PRESCRIPT ION RX22M A Oct 19, 2022 RX22MA [id number] WILLIS,LAVELLE AEL PATIENT CAREMARK PRESCRIPT ION RX22M B Oct 19, 2022 RX22MB [id number] WILLIS,LAVELLE AEL PATIENT CAREMARK PRESCRIPT ION BRENDA MCCABE [facility] AC Oct 19, 2022 RX22MB [id number] [phone] WILLIS,LAVELLE AEL SPOUSE [place] PRESCRIPT ION BCBS OF [place] Oct 19, 2022 RX22MA [id number] WILLIS, SPOUSE CAR[place]ARK PRESCRIPT ION RX Oct 19, 2022 RX22MB [id number] [phone] WILLIS,MAR JUDITH SPOUSE [place] ([id number]) PRESCRIPT ION [place] OF [place] Oct 19, 2022 RX22MB [id number] [phone] WILLIS,MAR JUDITH SPOUSE [place] BCBS ([facility] CE ORGANIZ BRENDA MCCABE [facility] AC Apr 18, 2018 [id number] WILLIS,EDILBERTO SOTELOZA SPOUSE EXPRESS [place] PRESCRIPT I[place]BS [place] 2018 L4TA [id number] WILLIS,EDILBERTO SOTELOZA SPOUSE [employer] S[employer] ([id number]) PRESCRIPT ION Apr 18, 2018 L4TA [id number] WILLIS,EDILBERTO SOTELOZA SPOUSE [employer] ([id number]) PRESCRIPT ION L4TA* Apr 18, 2020 L4TA [id number] WILLIS,EDILBERTO PALAFOXA SPOUSE [employer] ([id number]) PRESCRIPT ION L4TA Apr 18, 2018 L4TA [id number] WILLIS,EDILBERTO SOTELOZA SPOUSE [employer] ([id number]) PRESCRIPT ION L4TA* Apr 18, 2018 L4TA [id number] WILLIS,EDILBERTO PALAFOXA SPOUSE [employer] ([id number]) PRESCRIPT ION Apr 18, 2018 L4TA [id number] 32 WILLISEDILBERTO SPOUSE [employer] ([id number]) PRESCRIPT ION Apr 18, 2018 L4TA [id number] WILLIS,EDILBERTO WONG SPOUSE EXPRESS S[employer]TS-MINOR BROGATION PRESCRIPT ION BCBS OF [place] Apr 18, 2020 L4TA [id number] WILLIS,DEILBERTO WONG SPOUSE [facility] CE ORGANIZAT ION W/OUT OF NETWORK BENEFITS D[facility]RIST[facility] ACT Apr 18, 2018 [id number] [phone] WILLISEDILBERTO SPOUSE [place] BCBS [facility] (BLUECARD) [facility] CE ORGANIZAT ION D[facility]RISTEN [facility] AC Apr 18, 2018 [id number] WILLISEDILBERTO SPOUSE MEDICARE (WNR) MEDICARE (M) PART A Mar 19, 1990 PART A [id number] WILLIS,LAVELLE AEL PATIENT MEDICARE (WNR) MEDICARE (M) PART A Mar 19, 1990 PART A [id number] WILLIS,LAVELLE AEL PATIENT MEDICARE (WNR) MEDICARE (M) PART A Mar 19, 1990 PART A [id number] [phone] WILLIS,LAVELLE AEL PATIENT MEDICARE (WNR) MEDICARE (M) PART A Mar 19, 1990 PART A [id number] WILLIS,LAVELLE AEL PATIENT MEDICARE (WNR) MEDICARE (M) PART A Mar 19, 1990 PART A [id number] WILLIS,LAVELLE AEL PATIENT MEDICARE (WNR) MEDICARE (M) PART A Mar 19, 1990 PART A [id number] [phone] WILLIS,LAVELLE AEL PATIENT MEDICARE (WNR) MEDICARE (M) PART A Mar 19, 1990 PART A [id number] WILLIS,LAVELLE AEL PATIENT MEDICARE (WNR) MEDICARE (M) PART A Mar 19, 1990 PART A [id number] WILLIS,LAVELLE AEL PATIENT MEDICARE (WNR) MEDICARE (M) PART A Mar 19, 1990 PART A [id number] WILLIS,LAVELLE AEL PATIENT MEDICARE (WNR) MEDICARE (M) PART A Mar 19, 1990 PART A [id number] [phone] WILLIS,LAVELLE AEL PATIENT MEDICARE (WNR) MEDICARE (M) PART A Mar 19, 1990 PART A [id number] [phone] WILLIS,LAVELLE AEL PATIENT Selected Encounter This section includes the information on record at [place] for the Encounter. Date/Time Encounter Type Encounter Description Reason Pro vider Source Apr 06, 2024 08:51 AM Outpatient Encounter ADMIN PAT ACTIVTIES (MASNONCT) IHE Encounter Template Text not used by [place] Plan of Treatment: Future Appointments (+ 6 [...] 20 appointments. The data comes from all [place] treatment facilities. Appointment Date/Time Appointment Type Appointme nt Facility Name May 30, 2024 08:30 AM AM[place]ULATORY [place] [facility] [place] [place] [facility] May 30, 2024 09:30 AM [place]ORY [place] [facility] Jun 01, 2024 10:00 AM AMBULATORY - MEDICINE [facility] [place] [facility] Jun 01, 2024 11:30 AM AMBULATORY - MEDICINE [facility] [place] [facility] Jun 28, 2024 11:30 AM AMBULATORY - MEDICINE [facility] [place] [facility] Jul 08, 2024 10:30 AM [place]ORY [place]ICINE [place] [facility] Jul 13, 2024 09:30 AM [place] [facility] Aug 12, 2024 09:30 AM [place]ORY [place]ICINE [place] [facility] Aug 22, 2024 09:00 AM AM[place]UL[place]ORY [place]ICINE [place] [facility] Sep 21, 2024 09:00 AM [place]ORY [place]ICINE [place] [facility] Sep 21, 2024 10:00 AM AM[place]ULATORY - [place]ICINE [place] [facility] Social History: Smoking Status (Most current) and Tobacco Use (All prior to encounter date) This section includes the most current, and the historical, smoking and tobacco- related health factors from the [place] facility where the Encounter took place. Current Smoking Status This section includes the most current smoking, or tobacco-related health factor, from the [place] facility where the Encounter took place. Date/Time Current Smoking Status Comment [facility] Nov 27, 2023 11:00 AM [place]-TOBACCO QUIT 15 YRS OR MORE [facility] WSN [facility] Tobacco Use History This section includes a history of the smoking, or tobacco-related health factors, that were collected on or before the date of the Encounter. The data comes from the [place] facility where the Encounter took place. Date/Time Smoking Status/Tobac co Use Comment Facility Nov 27, 2023 11:00 AM [place]-TOBACCO QUIT 15 YRS OR MORE [facility] [place] [facility] Dec 02, 2022 08:00 AM VA-TOBACCO FORMER USER [facility] JUSTRN [facility] Dec 02, 2022 08:00 AM VA-TOBACCO QUIT 15 YRS OR MORE [facility] Nov 05, 2021 10:30 AM VA-TOBACCO [facility] Nov 05, 2021 10:30 AM VA-TOBACCO QUIT 1 TO < 5 YRS [facility] Sep 14, 2020 02:00 PM VA-TOBACCO FORMER USER [facility] Sep 14, 2020 02:00 PM VA-TOBACCO QUIT 5 TO < 15 YRS [facility] Jan 22, 2018 03:40 PM QUIT TOBACCO USE > 7 YEARS AGO [facility] Jun 04, 2016 02:01 PM CURRENT SMOKER been smoking pass 20 yrs [facility] Jun 04, 2016 02:01 PM V1-PT DECLINES REF TO TOBACCO CESS PRGM [facility] Jun 04, 2016 02:01 PM V1-PT THINKING ABOUT QUIT TOBACCO USE [facility] Jul 18, 2014 03:31 PM V1-PT DECLINES REF TO TOBACCO CESS PRGM [facility] Jul 18, 2014 03:31 PM V1-PT DECLINES TOBACCO CESSATION MEDS [facility] Jul 18, 2014 03:31 PM V1-PT NOT INTERESTED IN QUIT TOBACCO USE [facility] [place] [facility] Jan 09, 2014 10:43 AM CURRENT SMOKER pt smokes 1 pk of cigarettes per day. [facility] Jan 09, 2014 10:43 AM V1-PT THINKING ABOUT QUIT TOBACCO USE [facility] Aug 28, 2003 10:47 AM CURRENT SMOKER one pack q 6 days - he has cut down from 3 PPD. He is in the process of quitting [facility] Radiology Reports: +/- 30 days [...] the Encounter. The data comes from all [place] treatment facilities. Date/Time Radiology Report Provider Source Mar 28, 2024 09:45 AM LDCT LUNG CANCER SCREENING: CHAYA PEDRO [id number] -1955 M Exm Date: MAR 28, 2024@09:45 Req Phys: ELIZABET ROBINS Pat Loc: ZZCWM/NO/LCS ADMIN (Req'g Loc) Img Loc: NHM/CT Service: Unknown [place] [facility] , (Case 16 COMPLETE) LDCT LUNG CANCER SCREENING (CT Detailed) CPT:27285 Reason for Study: LUNG CANCER SCREENING Clinical History: QUIT SMOKING IN 2012 BASELINE LCS LDCT 03/30/2023: LUNG RADS 1 no new or concerning pulmonary mass or nodules. Plan for repeat in 12 months. Report Status: Verified Date Reported: MAR 28, 2024 Date Verified: MAR 28, 2024 Build Manager E-Sig:/ES/RAYMOND LEAL JR Report: Study: Lung [...] reviewed. Secondary computer-aided detection with post-processing from [employer] is used. The lack of intravenous contrast [...] Primary Interpreting Staff: RAYMOND LEAL JR, Radiologist (Build Manager) /RAYMOND SHELTON JR [facility] Encounter Notes: All associated encounter notes This section contains the clinical notes associated to the Encounter. Date/Time Encounter Note(s) Provider Source Apr 06, 2024 08:51 AM MEDICATION MGT NOT E: LOCAL TITLE: OUTPATIENT MEDICATION RENEWAL STANDARD TITLE: MEDICATION MGT NOTE DATE OF NOTE: APR 06, 2024@08:51 ENTRY DATE: APR 06, 2024@08:51:30 AUTHOR: KAUSHAL TEIXEIRA EXP COSIGNER: URGENCY: STATUS: COMPLETED Renew med and mail. ( ATORVASTATIN TAB 80MG ). Ty. /es/ KAUSHAL TEIXEIRA VISJavier 1 [facility] AMSA Signed: 04/06/2024 08:53 Receipt Acknowledged By: 04/11/2024 12:31 /es/ CIERRA GREGORY Nurse Practitioner 04/07/2024 08:17 /es/ DEBBIE GORMAN, MSN, RN, CNL PRIMARY CARE TEAM NURSE KAUSHAL TEIXEIRA [facility]
--- OUTSIDE RECORDS SUMMARY | 2024-11-01 08:00 | XMS_ITS | Encounter Summary ---
Author Name Department of [place] Organization [place] Address [address] [place] [address] Care Team Providers Care Analytics Consultant Name Role Phone ELIZABET ROBINS Primary Care [...] Member ID Insurance Provider's Telephone Number Policy Palu's Name Patient's Relationship to Policy Paul [facility] CE ORGANIZ [facility] AC Apr 18, 2018 [id number] WILLIS,MAR JUDITH SPOUSE ANTHEM BCBS OF [place] ([place]ARD) [facility] ORGANIZ [facility]DA [facility] Apr 18, 2018 [id number] [phone] WILLIS,MAR JUDITH SPOUSE BCBS [facility]GANIZ [facility] SHARE ACTIV E Apr 18, 2018 [id number] [phone] WILLIS,MAR JUDITH SPOUSE BCBS OF [facility]GANIZ [facility] Apr 18, 2018 [id number] WILLIS,MAR JUDITH PATIENT BCBS OF [facility] CE ORGANIZ BRENDA MCCABE [facility] Apr 18, 2018 [id number] WILLIS,MAR JUDITH SPOUSE [place] PREFERRED PROVIDER ORGANIZAT ION (PPO) BRENDA MCCABE [facility] AC Apr 18, 2018 [id number] WILLIS,MAR JUDITH SPOUSE BCBS OF [facility] CE ORGANIZ BRENDA MCCABE [facility] ACT Apr 18, 2018 [id number] WILLIS,MAR JUDITH SPOUSE BCBS OF [facility] CE ORGANIZ BRENDA MCCABE [facility] AC Apr 18, 2018 [id number] [phone] WILLIS,MAR JUDITH SPOUSE [place] PRESCRIPT ION RX22M A Oct 19, 2022 RX22MA [id number] WILLIS,LAVELLE AEL PATIENT [place] PRESCRIPT ION RX22M B Oct 19, 2022 RX22MB [id number] WILLIS,LAVELLE AEL PATIENT [place] PRESCRIPT ION BRENDA MCCABE [facility] AC Oct 19, 2022 RX22MB [id number] [phone] WILLIS,LAVELLE AEL SPOUSE [place] PRESCRIPT ION [place] OF [place] Oct 19, 2022 RX22MA [id number] WILLIS, SPOUSE CAREMARK PRESCRIPT ION RX22M B Oct 19, 2022 RX22MB [id number] [phone] WILLIS,MAR JUDITH SPOUSE [place] PRESCRIPT ION RX Oct 19, 2022 RX22MB [id number] [phone] WILLIS,MAR JUDITH SPOUSE [place] ([id number]) PRESCRIPT ION BCBS OF [place] Oct 19, 2022 RX22MB [id number] WILLIS,MAR JUDITH SPOUSE [place] BC[place] ([facility] CE ORGANIZ BRENDA MCCABE [facility] AC Apr 18, 2018 [id number] [phone] WILLIS,EDILBERTO SOTELOZA SPOUSE [employer] PRESCRIPT I[place] 2018 L4TA [id number] WILLIS,EDILBERTO JUDITH SPOUSE [employer] ([id number]) PRESCRIPT ION Apr 18, 2018 L4TA [id number] WILLIS,EDILBERTO SOTELOZA SPOUSE [employer] ([id number]) PRESCRIPT ION L4TA* Apr 18, 2020 L4TA [id number] WILLIS,EDILBERTO PALAFOXA SPOUSE [employer] ([id number]) PRESCRIPT ION L4TA* Apr 18, 2018 L4TA [id number] WILLIS,EDILBERTO PALAFOXA SPOUSE [employer] ([id number]) PRESCRIPT ION L4TA Apr 18, 2018 L4TA [id number] WILLIS,EDILBERTO SOTELOZA SPOUSE [employer] ([id number]) PRESCRIPT ION Apr 18, 2018 L4TA [id number] 32 WILLISEDILBERTOZA SPOUSE [employer] ([id number]) PRESCRIPT ION Apr 18, 2018 L4TA [id number] WILLIS,EDILBERTO WONG SPOUSE EXPRESS SCRIPTS-MINOR BROGATION PRESCRIPT ION [place]BS OF [place] Apr 18, 2020 L4TA [id number] WILLIS,EDILBERTO WONG SPOUSE [facility] CE ORGANIZAT ION W/OUT OF NETWORK BENEFITS [facility] ACT Apr 18, 2018 [id number] [phone] WILLISEDILBERTO SPOUSE [place] BCBS [facility] (BLUECAR) [facility] CE ORGANIZAT ION [facility] AC Apr 18, 2018 [id number] WILLISEDILBERTO SPOUSE MEDICARE (WNR) MEDICARE (M) PART A Mar 19, 1990 PART A [id number] [phone] WILLISLAVELLE AEL PATIENT MEDICARE (WNR) MEDICARE (M) PART A Mar 19, 1990 PART A [id number] [phone] WILLIS,LAVELLE AEL PATIENT MEDICARE (WNR) MEDICARE (M) PART A Mar 19, 1990 PART A [id number] WILLIS,LAVELLE AEL PATIENT MEDICARE (WNR) MEDICARE (M) PART A Mar 19, 1990 PART A [id number] [phone] WILLIS,LAVELLE AEL PATIENT MEDICARE (WNR) MEDICARE (M) PART A Mar 19, 1990 PART A [id number] [phone] WILLIS,LAVELLE AEL PATIENT MEDICARE (WNR) MEDICARE (M) PART A Mar 19, 1990 PART A [id number] WILLIS,LAVELLE AEL PATIENT MEDICARE (WNR) MEDICARE (M) PART A Mar 19, 1990 PART A [id number] WILLIS,LAVELLE AEL PATIENT MEDICARE (WNR) MEDICARE (M) PART A Mar 19, 1990 PART A [id number] WILLIS,LAVELLE AEL PATIENT MEDICARE (WNR) MEDICARE (M) PART A Mar 19, 1990 PART A [id number] [phone] WILLIS,LAVELLE AEL PATIENT MEDICARE (WNR) MEDICARE (M) PART A Mar 19, 1990 PART A [id number] WILLIS,LAVELLE AEL PATIENT MEDICARE (WNR) MEDICARE (M) PART A Mar 19, 1990 PART A [id number] WILLIS,LAVELLE AEL PATIENT Selected Encounter This section includes the information on record at [place] for the Encounter. Date/Time Encounter Type Encounter Description Reason Pro vider Source Apr 22, 2024 12:00 AM Outpatient Encounter EVENT (HISTORICAL) IHE Encounter Template Text not used by [place] Plan of Treatment: Future Appointments (+ 6 [...] 20 appointments. The data comes from all [place] treatment facilities. Appointment Date/Time Appointment Type Appointme nt Facility Name May 30, 2024 08:30 AM AMBULATORY - MEDICINE [facility] [place] [facility] May 30, 2024 09:30 AM AMBULATORY - MEDICINE [facility] [place] [facility] Jun 01, 2024 10:00 AM AMBULATORY - MEDICINE [facility] [place] [facility] Jun 01, 2024 11:30 AM AMBULATORY - MEDICINE [facility] [place] [facility] Jun 28, 2024 11:30 AM AMBULATORY - MEDICINE [facility] [place] [facility] Jul 08, 2024 10:30 AM AMBULATORY - MEDICINE [facility] [place] [facility] Jul 13, 2024 09:30 AM AMBULATORY - MEDICINE [facility] [place] [facility] Aug 12, 2024 09:30 AM AMBULATORY - MEDICINE [place] [facility] [place] [facility] Aug 22, 2024 09:00 AM AMBULATORY - MEDICINE [facility] [facility] Sep 21, 2024 09:00 AM AMBULATORY - MEDICINE [place] [facility] [place] [facility] Sep 21, 2024 10:00 AM AMBULATORY - MEDICINE [place] [facility] [place] [facility] Social History: Smoking Status (Most current) and Tobacco Use (All prior to encounter date) This section includes the most current, and the historical, smoking and tobacco- related health factors from the [place] facility where the Encounter took place. Current Smoking Status This section includes the most current smoking, or tobacco-related health factor, from the [place] facility where the Encounter took place. Date/Time Current Smoking Status Comment [facility] Nov 27, 2023 11:00 AM VA-TOBACCO FORMER USER [facility] Tobacco Use History This section includes a history of the smoking, or tobacco-related health factors, that were collected on or before the date of the Encounter. The data comes from the [place] facility where the Encounter took place. Date/Time Smoking Status/Tobac co Use Comment Facility Nov 27, 2023 11:00 AM [place]-TOBACCO QUIT 15 YRS OR MORE [place] [facility] [place] [facility] Dec 02, 2022 08:00 AM VA-TOBACCO FORMER USER [facility] JUSN [facility] Dec 02, 2022 08:00 AM VA-TOBACCO QUIT 15 YRS OR MORE [facility] Nov 05, 2021 10:30 AM VA-TOBACCO FORMER USER [facility] Nov 05, 2021 10:30 AM VA-TOBACCO QUIT 1 TO < 5 YRS [facility] Sep 14, 2020 02:00 PM VA-TOBACCO FORMER USER [facility] Sep 14, 2020 02:00 PM VA-TOBACCO QUIT 5 TO < 15 YRS [facility] Jan 22, 2018 03:40 PM QUIT TOBACCO USE > 7 YEARS AGO [facility] Jun 04, 2016 02:01 PM CURRENT SMOKER been smoking pass 20 yrs [facility] Jun 04, 2016 02:01 PM V1-PT DECLINES REF TO TOBACCO CESS PRGM [facility] Jun 04, 2016 02:01 PM V1-PT THINKING ABOUT QUIT TOBACCO USE [facility] Jul 18, 2014 03:31 PM V1-PT DECLINES REF TO TOBACCO CESS PRGM [facility] Jul 18, 2014 03:31 PM V1-PT DECLINES TOBACCO CESSATION MEDS [facility] Jul 18, 2014 03:31 PM V1-PT NOT INTERESTED IN QUIT TOBACCO USE [facility] Jan 09, 2014 10:43 AM CURRENT SMOKER pt smokes 1 pk of cigarettes per day. [facility] Jan 09, 2014 10:43 AM V1-PT THINKING ABOUT QUIT TOBACCO USE [facility] Aug 28, 2003 10:47 AM CURRENT SMOKER one pack q 6 days - he has cut down from 3 PPD. He is in the process of quitting [facility] Radiology Reports: +/- 30 days of [...] the Encounter. The data comes from all [place] treatment facilities. Date/Time Radiology Report Provider Source Mar 28, 2024 09:45 AM LDCT LUNG CANCER SCREENING: CHAYA PEDRO [id number] -1955 M Exm Date: MAR 28, 2024@09:45 Req Phys: ELIZABET ROBINS Pat Loc: ZZCWM/NO/LCS ADMIN (Req'g Loc) Img Loc: NHM/CT Service: Unknown [place] [facility] [place] , (Case 16 COMPLETE) LDCT LUNG CANCER SCREENING (CT Detailed) CPT:00110 Reason for Study: LUNG CANCER SCREENING Clinical History: QUIT SMOKING IN 2012 BASELINE LCS LDCT 03/30/2023: LUNG RADS 1 no new or concerning pulmonary mass or nodules. Plan for repeat in 12 months. Report Status: Verified Date Reported: MAR 28, 2024 Date Verified: MAR 28, 2024 Manager Sterile E-Sig:/ES/RAYMOND LEAL JR Report: Study: Lung cancer [...] reviewed. Secondary computer-aided detection with post-processing from [employer] is used. The lack of intravenous contrast [...] Primary Interpreting Staff: RAYMOND LEAL JR, Radiologist (Manager Sterile) /EARAYMOND NEWELL JR [facility] Encounter Notes: All associated encounter notes This section contains the clinical notes associated to the Encounter. Date/Time Encounter Note(s) Provider Source Apr 22, 2024 12:00 AM NONVA NOTE: LOCAL TITLE: NON-VA HOSPITALIZATIONS/ER STANDARD TITLE: NONVA NOTE DATE OF NOTE: APR 22, 2024 ENTRY DATE: APR 22, 2024@12:34:42 AUTHOR: KORI HERNANDEZ COSIGNER: URGENCY: STATUS: COMPLETED VistA Imaging - Scanned Document SCANNED DOCUMENT SIGNATURE NOT REQUIRED Electronically Filed: 04/22/2024 by: KORI CODY [facility]
--- OUTSIDE RECORDS SUMMARY | 2024-11-01 08:00 | XMS_ITS | Encounter Summary ---
Author Name [facility] [place] [facility] [place] Organization [facility] [place] Address [address] [place] [address] Care Team Providers Care Technology Internship Name Role Phone ELIZABET ROBINS Primary [...] [facility]GAN[facility] AC Apr 18, 2018 [id number] WILLIS,MAR JUDITH SPOUSE ANTHEM [place]BS OF [place] (BLUECARD) [facility] MAINCHRISTINA CE ORGANIZ IDTRISTEN [facility] Apr 18, 2018 [id number] [phone] WILLIS,MAR JUDITH SPOUSE BCBS [facility] CE ORGANIZ [facility] SHARE ACTIV E Apr 18, 2018 [id number] WILLIS,MAR JUDITH SPOUSE BCBS [facility]GAN[facility] Apr 18, 2018 [id number] WILLIS,MAR JUDITH PATIENT BCBS OF [facility] CE ORGANIZ BRENDA MCCABE [facility] Apr 18, 2018 [id number] WILLIS,MAR JUDITH SPOUSE BC[place] OF [place] PREFERRED PROVIDER ORGANIZAT ION (PPO) BRENDA MCCABE [facility] AC Apr 18, 2018 [id number] [phone] WILLIS,MAR JUDITH SPOUSE BCBS OF [facility] CE ORGANIZ BRENDA MCCABE [facility] ACT Apr 18, 2018 [id number] WILLIS,MAR JUDITH SPOUSE BCBS OF [facility] CE ORGANIZ BRENDA MCCABE [facility] AC Apr 18, 2018 [id number] [phone] WILLIS,MAR JUDITH SPOUSE [place] PRESCRIPT ION BCBS OF [place] Oct 19, 2022 [id number] WILLIS, SPOUSE [place] PRESCRIPT ION RX22M A Oct 19, 2022 RX22MA [id number] WILLIS,LAVELLE AEL PATIENT [place] PRESCRIPT ION RX22M B Oct 19, 2022 RX22MB [id number] WILLIS,LAVELLE AEL PATIENT [place] PRESCRIPT ION RX22M B Oct 19, 2022 RX22MB [phone] [phone] WILLIS,MAR JUDITH SPOUSE [place] PRESCRIPT ION RX Oct 19, 2022 [id number] WILLIS,MAR JUDITH SPOUSE [place] PRESCRIPT ION BRENDA MCCABE [facility] AC Oct 19, 2022 [phone] WILLIS,LAVELLE AEL SPOUSE [place] ([id number]) PRESCRIPT ION [place] OF [place] Oct 19, 2022 [id number] [phone] WILLIS,MAR JUDITH SPOUSE [place] BC[place] ([facility] CE ORGANIZ BRENDA MCCABE [facility] AC Apr 18, 2018 [id number] WILLIS,EDILBERTO WONG SPOUSE [employer] PRESCRIPT [place] 2018 L4TA [id number] WILLISEDILBERTO SPOUSE [employer] ([id number]) PRESCRIPT ION Apr 18, 2018 L4TA [id number] WILLIS,EDILBERTO WONG SPOUSE [employer] ([id number]) PRESCRIPT ION L4TA* Apr 18, 2020 L4TA [id number] WILLISEDILBERTOA SPOUSE [employer] ([id number]) PRESCRIPT ION L4TA Apr 18, 2018 L4TA [id number] WILLIS,EDILBERTO WONG SPOUSE [employer] ([id number]) PRESCRIPT ION Apr 18, 2018 L4TA [id number] WILLIS,EDILBERTO WONG SPOUSE [employer] ([id number]) PRESCRIPT ION L4TA* Apr 18, 2018 L4TA [id number] WILLISEDILBERTO SPOUSE [employer] ([id number]) PRESCRIPT ION Apr 18, 2018 L4TA [id number] WILLISEDILBERTO SPOUSE [employer]-MINOR BROGATION PRESCRIPT ION [place] Apr 18, 2020 L4TA [id number] WILLIS,EDILBERTO WONG SPOUSE [facility] ([facility]) [facility] CE ORGANIZAT ION W/OUT OF NETWORK BENEFITS IDTRISTEN MCCABE [facility] ACT Apr 18, 2018 [id number] [phone] WILLISEDILBERTO SPOUSE [place] BCBS [facility] (BLUECARD) [facility] CE ORGANIZAT ION IDTRISTEN [facility] AC Apr 18, 2018 [id number] [phone] WILLISEDILBERTO SPOUSE MEDICARE (WNR) MEDICARE (M) PART A Mar 19, 1990 PART A [id number] WILLISLAVELLE AEL PATIENT MEDICARE (WNR) MEDICARE (M) PART A Mar 19, 1990 PART A [id number] [phone] WILLIS,LAVELLE AEL PATIENT MEDICARE (WNR) MEDICARE (M) PART A Mar 19, 1990 PART A [id number] WILLIS,LAVELLE AEL PATIENT MEDICARE (WNR) MEDICARE (M) PART A Mar 19, 1990 PART A [id number] [phone] WILLIS,LAVELLE AEL PATIENT MEDICARE (WNR) MEDICARE (M) PART A Mar 19, 1990 PART A [id number] [phone] WILLIS,LAVELLE AEL PATIENT MEDICARE (WNR) MEDICARE (M) PART A Mar 19, 1990 PART A [id number] WILLIS,LAVELLE AEL PATIENT MEDICARE (WNR) MEDICARE (M) PART A Mar 19, 1990 PART A [id number] WILLIS,LAVELLE AEL PATIENT MEDICARE (WNR) MEDICARE (M) PART A Mar 19, 1990 PART A [id number] WILLIS,LAVELLE AEL PATIENT MEDICARE (WNR) MEDICARE (M) PART A Mar 19, 1990 PART A [id number] [phone] WILLIS,LAVELLE AEL PATIENT MEDICARE (WNR) MEDICARE (M) PART A Mar 19, 1990 PART A [id number] WILLIS,LAVELLE AEL PATIENT MEDICARE (WNR) MEDICARE (M) PART A Mar 19, 1990 PART A [id number] [phone] WILLIS,LAVELLE AEL PATIENT Selected Encounter This section includes the information on record at [place] for the Encounter. Date/Time Encounter Type Encounter Description Reason Pro vider Source May 02, 2024 10:51 AM Outpatient Encounter ADMIN PAT ACTIVTIES (MASNONCT) IHE Encounter Template Text not used by [place] Plan of Treatment: Future Appointments (+ 6 [...] - MEDICINE [facility] [place] [facility] May 30, 2024 09:30 AM AMBULATORY - MEDICINE [facility] [place] [facility] Jun 01, 2024 10:00 AM AMBULATORY - MEDICINE [facility] [place] [facility] Jun 01, 2024 11:30 AM AMBULATORY - MEDICINE [facility] [place] [facility] Jun 28, 2024 11:30 AM AMBULATORY - MEDICINE [facility] [place] [facility] Jul 08, 2024 10:30 AM AMBULATORY - MEDICINE [facility] [place] [facility] Jul 13, 2024 09:30 AM AMBULATORY - MEDICINE [facility] [place] [facility] Aug 12, 2024 09:30 AM AMBULATORY - MEDICINE [facility] [place] [facility] Aug 22, 2024 09:00 AM AMBULATORY - MEDICINE [facility] [place] [facility] Sep 21, 2024 09:00 AM AMBULATORY - MEDICINE [facility] [place] [facility] Sep 21, 2024 10:00 AM AMBULATORY - MEDICINE [place] [facility] [place] [facility] Lab Results: +/- 30 days [...] Result - Unit Interpretation Reference Range Comment Jun 01, 2024 12:25 PM [facility] [place] [facility] MICROALBUMIN CREATININE RATIO PANEL Specimen Type: URINE No comment entered. Ordering Provider: LINDA PERSON Report Released Date/Time: Jun 01, 2024 11:53 AM Reporting Lab: [place] [facility] [address] [address] Performing Lab: [facility] [address] MICROALBUMIN/C REATININE RATIO 10.8 mg/g 0-29.9 MICROALBUMIN,Q UANTITATIVE 1.1 mg/dL RR UNAVAIL CREATININE URINE 101.63 mg/dL Jun 01, 2024 10:38 AM [facility] HEMOGLOBIN A1C PANEL Specimen Type: BLOOD Comment: Values obtained from A1C measurements can vary. For atypical A1C assays, a reported value of 7.0 could actually be between 6.72 and 7.28 if measured by a reference method. A reported value of 9.0 could actually be between 8.73 and 9.27. Ref: [email or web address] p.org/CAPdata. asp Ordering Provider: LINDA PERSON Report Released Date/Time: May 30, 2024 10:29 AM Reporting Lab: [address] [address] Performing Lab: [address] [address] HEMOGLOBIN A1C 5.8 H 4.0-5.6 Jun 01, 2024 10:38 AM [facility] BASIC METABOLIC PANEL (non-fasting) Specimen Type: SERUM No comment entered. Ordering Provider: LINDA PERSON Report Released Date/Time: May 30, 2024 10:29 AM Reporting Lab: [address] [address] Performing Lab: [address] [address] UREA NITROGEN 13 mg/dL 7-25 GLUCOSE 115 mg/dL H 65-100 SODIUM 140 mmol/L 135-145 POTASSIUM 4.3 mmol/L 3.5-5.0 CHLORIDE 107 mmol/L 100-110 CO2 21 meq/L 20-30 CREATININE, Serum 0.84 mg/dL 0.50-1.40 eGFR(CKD-EPI 2020) >90 mL/min >60 Jun 01, 2024 10:38 AM [facility] LIPID PANEL, NON FASTING Specimen Type: SERUM No comment entered. Ordering Provider: LINDA PERSON Report Released Date/Time: Jun 01, 2024 10:12 AM Reporting Lab: [facility] [place] [facility] [address] [facility] [address] Performing Lab: [facility] [place] [facility] [address] [facility] [address] CHOLESTEROL 126 mg/dL TRIGLYCERIDE 114 mg/dL 0-150 LDL calculated 60 mg/dL 0-129 CHOL/HDL 2.9 HDL CHOLESTEROL 43 mg/dL 40-60 Social History: Smoking Status (Most current) and [...] took place. Date/Time Current Smoking Status Comment [facility] Nov 27, 2023 11:00 AM VA-TOBACCO QUIT 15 YRS OR MORE [facility] Tobacco Use History This section includes a history of the smoking, or tobacco-related health factors, that were collected on or before the date of the Encounter. The data comes from the [place] facility where the Encounter took place. Date/Time Smoking Status/Tobac co Use Comment [facility] Nov 27, 2023 11:00 AM VA-TOBACCO QUIT 15 YRS OR MORE [place] [facility] [place] [facility] Dec 02, 2022 08:00 AM VA-TOBACCO FORMER USER [facility] [place] [facility] Dec 02, 2022 08:00 AM VA-TOBACCO QUIT 15 YRS OR MORE [facility] [place] [facility] Nov 05, 2021 10:30 AM VA-TOBACCO FORMER USER [facility] [place] [facility] Nov 05, 2021 10:30 AM VA-TOBACCO QUIT 1 TO < 5 YRS [facility] [place] [facility] Sep 14, 2020 02:00 PM VA-TOBACCO FORMER USER [facility] [place] [facility] Sep 14, 2020 02:00 PM VA-TOBACCO QUIT 5 TO < 15 YRS [facility] [place] [facility] Jan 22, 2018 03:40 PM QUIT TOBACCO USE > 7 YEARS AGO [facility] [place] [facility] Jun 04, 2016 02:01 PM CURRENT SMOKER been smoking pass 20 yrs [facility] Jun 04, 2016 02:01 PM V1-PT DECLINES REF TO TOBACCO CESS PRGM [facility] Jun 04, 2016 02:01 PM V1-PT THINKING ABOUT QUIT TOBACCO USE [facility] Jul 18, 2014 03:31 PM V1-PT DECLINES REF TO TOBACCO CESS PRGM [facility] Jul 18, 2014 03:31 PM V1-PT DECLINES TOBACCO CESSATION MEDS [facility] Jul 18, 2014 03:31 PM V1-PT NOT INTERESTED IN QUIT TOBACCO USE [facility] Jan 09, 2014 10:43 AM CURRENT SMOKER pt smokes 1 pk of cigarettes per day. [facility] Jan 09, 2014 10:43 AM V1-PT THINKING ABOUT QUIT TOBACCO USE [facility] Aug 28, 2003 10:47 AM CURRENT SMOKER one pack q 6 days - he has cut down from 3 PPD. He is in the process of quitting [facility] Encounter Notes: All associated encounter notes This section contains the clinical notes associated to the Encounter. Date/Time Encounter Note(s) Provider Source May 02, 2024 10:58 AM ADDENDUM: LOCAL TITLE: Addendum STANDARD TITLE: ADDENDUM DATE OF NOTE: MAY 02, 2024@10:58:35 ENTRY DATE: MAY 02, 2024@10:58:36 AUTHOR: DEBBIE GORMAN EXP COSIGNER: URGENCY: STATUS: COMPLETED Forwarding medication request to covering provider /gaetano/ DEBBIE GORMAN, MSN, RN, CNL PRIMARY CARE TEAM NURSE Signed: 05/02/2024 10:58 Receipt Acknowledged By: 05/02/2024 14:20 /gaetano/ LEE FOWLER MD PHYSICIAN ====== --- Original Document --- 05/02/24 V1 PHARMACY CUSTOMER CARE MEDICATION RENEWAL: Date: Apr Division: [place] Pt referred by Pharmacy Call Center for medication renewal: Non-controlled/maintenan ce medication Medications requested: [id number] METRONIDAZOLE 0.75% TOP GEL Defer to primary care provider To be mailed . Please review and renew if appropriate. *This note was generated by [facility] Pharmacy Customer Care. If you have any questions or need assistance, do not contact this author. Please refer all questions to your local, on-site pharmacy departments. /jerry DOMINGUEZ CPhT Community Educator, [place]/Pharmacy Customer Care Signed: 05/02/2024 10:52 Receipt Acknowledged By: 05/02/2024 14:20 /gaetano/ LEE FOWLER MD PHYSICIAN for ELIZABET ROBINS 05/02/2024 10:58 /es/ DEBBIE GORMAN, MSN, RN, CNL PRIMARY CARE TEAM NURSE DEBBIE GORMAN [facility] May 02, 2024 10:51 AM PHARMACY NOTE: LOCAL TITLE: PHARMACY CUSTOMER CARE MEDICATION RENEWAL STANDARD TITLE: PHARMACY NOTE DATE OF NOTE: MAY 02, 2024@10:51 ENTRY DATE: MAY 02, 2024@10:51:56 AUTHOR: GUILLERMO DOMINGUEZ EXP COSIGNER: URGENCY: STATUS: COMPLETED V1 PHARMACY CUSTOMER CARE MEDICATION RENEWAL Has ADDENDA Date: Apr Division: [place] Pt referred by Pharmacy Call Center for medication renewal: Non-controlled/maintenan ce medication Medications requested: [id number] METRONIDAZOLE 0.75% TOP GEL Defer to primary care provider To be mailed . Please review and renew if appropriate. *This note was generated by [facility] Pharmacy Customer Care. If you have any questions or need assistance, do not contact this author. Please refer all questions to your local, on-site pharmacy departments. /jerry DOMINGUEZ CPhT Community Educator, [place]/Pharmacy Customer Care Signed: 05/02/2024 10:52 Receipt Acknowledged By: 05/02/2024 14:20 /jerry FOWLER MD PHYSICIAN for ELIZABET ROBINS 05/02/2024 10:58 /es/ DEBBIE GORMAN, MSN, RN, CNL PRIMARY CARE TEAM NURSE 05/02/2024 ADDENDUM STATUS: COMPLETED Forwarding medication request to covering provider /gaetano/ DEBBIE GORMAN, MSN, RN, CNL PRIMARY CARE TEAM NURSE Signed: 05/02/2024 10:58 Receipt Acknowledged By: * AWAITING SIGNATURE * LEE FOWLER,GUILLERMO Mendoza [facility]
--- OUTSIDE RECORDS SUMMARY | 2024-11-01 08:00 | XMS_ITS ---
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 Filtration Plant Operator Name Role Phone ELIZABET ROBINS Primary [...] Patient's Relationship to Policy Paul [facility] CE ORGANIZ [facility]IN [facility] AC Apr 18, 2018 [id number] WILLIS,MAR JUDITH SPOUSE ANTHEM BCBS OF [place] ([place]ARD) [facility]IZ [facility] Apr 18, 2018 [id number] WILLIS,MAR JUDITH SPOUSE BCBS [facility] ORGANIZ [facility] SHARE ACTIV E Apr 18, 2018 [id number] WILLIS,MAR JUDITH SPOUSE BCBS OF [facility] CE ORGANIZ [facility] Apr 18, 2018 [id number] WILLIS,MAR JUDITH PATIENT BCBS OF [facility] CE ORGANIZ [facility]DA [facility]CC[facility] Apr 18, 2018 [id number] WILLIS,MAR JUDITH SPOUSE [place] OF [place] PREFERRED PROVIDER ORGANIZAT ION (PPO) [facility] AC Apr 18, 2018 [id number] WILLIS,MAR JUDITH SPOUSE BCBS OF [facility] CE ORGANIZ [facility]DA MCCABE [facility] ACT Apr 18, 2018 [id number] WILLIS,MAR JUDITH SPOUSE BCBS OF [facility] CE ORGANIZ BRENDA MCCABE [facility] AC Apr 18, 2018 [id number] [phone] WILLIS,MAR JUDITH SPOUSE [place] PRESCRIPT ION RX22M B Oct 19, 2022 [id number] [id number] WILLIS,MAR JUDITH SPOUSE [place] PRESCRIPT ION RX22M A Oct 19, 2022 RX22MA [id number] WILLIS,LAVELLE AEL PATIENT [place] PRESCRIPT ION RX22M B Oct 19, 2022 [id number] [id number] WILLIS,LAVELLE AEL PATIENT [place] PRESCRIPT ION [facility] AC Oct 19, 2022 RX22MB [id number] [phone] WILLIS,LAVELLE AEL SPOUSE [place] PRESCRIPT ION RX Oct 19, 2022 [id number] [id number] WILLIS,MAR JUDITH SPOUSE [place] PRESCRIPT ION [place]BS OF [place] Oct 19, 2022 [id number] [id number] WILLIS, SPOUSE [place] ([id number]) PRESCRIPT ION [place] Oct 19, 2022 [id number] [id number] WILLIS,MAR JUDITH SPOUSE [place] BCBS ([facility] CE ORGANIZ [facility]ENDA MCCABE [facility] AC Apr 18, 2018 [id number] WILLIS,EDILBERTO SOTELOZA SPOUSE [employer] PRESCRIPT I[place] 2018 L4TA [id number] WILLIS,EDILBERTO JUDITH SPOUSE [employer] ([id number]) PRESCRIPT ION Apr 18, 2018 L4TA [id number] WILLIS,EDILBERTO JUDITH SPOUSE [employer]TS ([id number]) PRESCRIPT ION L4TA* Apr 18, 2020 L4TA [id number] WILLIS,EDILBERTO PALAFOXA SPOUSE [employer]TS ([id number]) PRESCRIPT ION L4TA Apr 18, 2018 L4TA [id number] WILLIS,EDILBERTO SOTELOZA SPOUSE [employer] ([id number]) PRESCRIPT ION L4TA* Apr 18, 2018 L4TA [id number] WILLIS,EDILBERTO PALAFOXA SPOUSE [employer] ([id number]) PRESCRIPT ION Apr 18, 2018 L4TA [id number] 32 WILLISEDILBERTOZA SPOUSE [employer] ([id number]) PRESCRIPT ION Apr 18, 2018 L4TA [id number] WILLIS,EDILBERTO WONG SPOUSE [employer]-MINOR BROGATION PRESCRIPT ION BCBS OF [place] Apr 18, 2020 L4TA [id number] WILLIS,EDILBERTO WONG SPOUSE [place] [facility] CE ORGANIZAT ION W/OUT OF NETWORK BENEFITS [facility] ACT Apr 18, 2018 [id number] WILLISEDILBERTO SPOUSE [place] BCBS [facility] (BLUECAR) [facility] CE ORGANIZAT ION [facility] AC Apr 18, 2018 [id number] WILLISEDILBERTO SPOUSE MEDICARE (WNR) MEDICARE (M) PART A Mar 19, 1990 PART A [id number] WILLISLAVELLE AEL PATIENT MEDICARE (WNR) MEDICARE (M) PART A Mar 19, 1990 PART A [id number] WILLIS,LAVELLE AEL PATIENT MEDICARE (WNR) MEDICARE (M) PART A Mar 19, 1990 PART A [id number] WILLIS,LAVELLE AEL PATIENT MEDICARE (WNR) MEDICARE (M) PART A Mar 19, 1990 PART A [id number] WILLIS,LAVELLE AEL PATIENT MEDICARE (WNR) MEDICARE (M) PART A Mar 19, 1990 PART A [id number] WILLIS,LAVELLE AEL PATIENT MEDICARE (WNR) MEDICARE (M) PART A Mar 19, 1990 PART A [id number] [phone] [id number] WILLIS,LAVELLE AEL PATIENT MEDICARE (WNR) MEDICARE (M) PART A Mar 19, 1990 PART A [id number] WILLIS,LAVELLE AEL PATIENT MEDICARE (WNR) MEDICARE (M) PART A Mar 19, 1990 PART A [id number] [phone] WILLIS,LAVELLE AEL PATIENT MEDICARE (WNR) MEDICARE (M) PART A Mar 19, 1990 PART A [id number] WILLIS,LAVELLE AEL PATIENT MEDICARE (WNR) MEDICARE (M) PART A Mar 19, 1990 PART A [id number] WILLIS,LAVELLE AEL PATIENT MEDICARE (WNR) MEDICARE (M) PART A Mar 19, 1990 PART A [id number] WILLIS,LAVELLE AEL PATIENT Selected Encounter This section includes the information on record at [place] for the Encounter. Date/Time Encounter Type Encounter Description Reason Pro vider Source Apr 19, 2024 12:00 AM Outpatient Encounter EVENT (HISTORICAL) IHE Encounter Template Text not used by [place] Plan of Treatment: Future Appointments (+ 6 [...] 20 appointments. The data comes from all [place] treatment facilities. Appointment Date/Time Appointment Type Appointme nt Facility Name May 30, 2024 08:30 AM AM[place]ULATORY [place]ICINE [place] [facility] [place] [facility] May 30, 2024 09:30 AM [facility]ULATORY [place]IC[place] [facility] [place] [facility] Jun 01, 2024 10:00 AM AMBULATORY [place] MEDICINE [place] [facility] [place] [facility] Jun 01, 2024 11:30 AM AMBULATORY [place] MEDICINE [place] [facility] [place] [facility] Jun 28, 2024 11:30 AM AMBULATORY [place] MEDICINE [place] [facility] [place] [facility] Jul 08, 2024 10:30 AM AMBULATORY - MEDICINE [place] [facility] [place] [facility] Jul 13, 2024 09:30 AM AMBULATORY [place] MEDICINE [place] [facility] [place] [facility] Aug 12, 2024 09:30 AM [place] [facility] Aug 22, 2024 09:00 AM AMBULATORY [place] MEDICINE [place] [facility] [place] [facility] Sep 21, 2024 09:00 AM [place] [facility] Sep 21, 2024 10:00 AM [place]INE [place] [facility] Social History: Smoking Status (Most current) and Tobacco Use (All prior to encounter date) This section includes the most current, and the historical, smoking and tobacco- related health factors from the [place] facility where the Encounter took place. Current Smoking Status This section includes the most current smoking, or tobacco-related health factor, from the [place] facility where the Encounter took place. Date/Time Current Smoking Status Comment [facility] Nov 27, 2023 11:00 AM VA-TOBACCO FORMER USER [place] [facility] Tobacco Use History This section includes a history of the smoking, or tobacco-related health factors, that were collected on or before the date of the Encounter. The data comes from the [place] facility where the Encounter took place. Date/Time Smoking Status/Tobac co Use Comment Facility Nov 27, 2023 11:00 AM [place]-TOBACCO QUIT 15 YRS OR MORE [place] [facility] [place] [facility] Dec 02, 2022 08:00 AM VA-TOBACCO FORMER USER [facility] Dec 02, 2022 08:00 AM VA-TOBACCO QUIT 15 YRS OR MORE [facility] Nov 05, 2021 10:30 AM [facility]ACCO [facility] Nov 05, 2021 10:30 AM VA-TOBACCO QUIT 1 TO < 5 YRS [facility] Sep 14, 2020 02:00 PM [facility]-TOBACCO [facility] Sep 14, 2020 02:00 PM VA-TOBACCO QUIT 5 TO < 15 YRS [facility] Jan 22, 2018 03:40 PM QUIT TOBACCO USE > 7 YEARS AGO [facility] Jun 04, 2016 02:01 PM CURRENT SMOKER been smoking pass 20 yrs [facility] Jun 04, 2016 02:01 PM V1-PT DECLINES REF TO TOBACCO CESS PRGM [facility] Jun 04, 2016 02:01 PM V1-PT THINKING ABOUT QUIT TOBACCO USE [facility] Jul 18, 2014 03:31 PM V1-PT DECLINES REF TO TOBACCO CESS PRGM [facility] Jul 18, 2014 03:31 PM V1-PT DECLINES TOBACCO CESSATION MEDS [facility] Jul 18, 2014 03:31 PM V1-PT NOT INTERESTED IN QUIT [facility]BACCO [facility] Jan 09, 2014 10:43 AM CURRENT SMOKER pt smokes 1 pk of cigarettes per day. [facility] Jan 09, 2014 10:43 AM V1-PT THINKING ABOUT QUIT [facility]CO [facility] Aug 28, 2003 10:47 AM CURRENT SMOKER one pack q 6 days - he has cut down from 3 PPD. He is in the process of quitting [facility] Radiology Reports: +/- 30 days of the [...] the Encounter. The data comes from all [place] treatment facilities. Date/Time Radiology Report Provider Source Mar 28, 2024 09:45 AM LDCT LUNG CANCER SCREENING: CHAYA PEDRO [id number] -1955 M Exm Date: MAR 28, 2024@09:45 Req Phys: ELIZABET ROBINS Pat Loc: ZZCWM/NO/LCS ADMIN (Req'g Loc) Img Loc: NHM/CT Service: Unknown [place] [facility] [facility] , (Case 16 COMPLETE) LDCT LUNG CANCER SCREENING (CT Detailed) CPT:99856 Reason for Study: LUNG CANCER SCREENING Clinical History: QUIT SMOKING IN 2012 BASELINE LCS LDCT 03/30/2023: LUNG RADS 1 no new or concerning pulmonary mass or nodules. Plan for repeat in 12 months. Report Status: Verified Date Reported: MAR 28, 2024 Date Verified: MAR 28, 2024 Construction Worker E-Sig:/ES/RAYMOND LEAL JR Report: Study: Lung cancer [...] reviewed. Secondary computer-aided detection with post-processing from [place] [employer] is used. The lack of intravenous contrast [...] Primary Interpreting Staff: RAYMOND LEAL JR, Radiologist (Construction Worker) /EAD RAYMOND LEAL JR [facility] Encounter Notes: All associated encounter notes This section contains the clinical notes associated to the Encounter. Date/Time Encounter Note(s) Provider Source Apr 19, 2024 12:00 AM NONVA NOTE: LOCAL TITLE: NON-VA HOSPITALIZATIONS/ER STANDARD TITLE: NONVA NOTE DATE OF NOTE: APR 19, 2024 ENTRY DATE: APR 20, 2024@10:57:42 AUTHOR: ANKIT ESTRADA [place] EXP COSIGNER: URGENCY: STATUS: COMPLETED VistA Imaging - Scanned Document SCANNED DOCUMENT SIGNATURE NOT REQUIRED Electronically Filed: 04/20/2024 by: ANKIT ESTRADA BLEACH RANGE OPERATOR ANKIT ESTRADA [facility]
--- OUTSIDE RECORDS SUMMARY | 2024-11-01 08:00 | XMS_ITS | Encounter Summary ---
Author Name [place] Address [address] [place] [address] Care Team Providers Care Route Salesperson Name Role Phone ELIZABET ROBINS Primary Care [...] Patient's Relationship to Policy Paul [facility] CE ORGANIZ [facility] AC Apr 18, 2018 [id number] WILLIS,MAR JUDITH SPOUSE ANTHEM BCBS OF [place] (BLU[place]ARD) [facility] CE ORGANIZ [facility] Apr 18, 2018 [id number] [phone] WILLIS,MAR JUDITH SPOUSE BCBS [facility] CE ORGANIZ [facility] SHARE ACTIV E Apr 18, 2018 [id number] [phone] WILLIS,MAR JUDITH SPOUSE BCBS OF [facility] CE ORGANIZ [facility] Apr 18, 2018 [id number] [phone] WILLIS,MAR JUDITH PATIENT BCBS OF [facility] CE ORGANIZ [facility]ENDA MCCABE [facility] Apr 18, 2018 [id number] WILLIS,MAR JUDITH SPOUSE [place] OF [place] PREFERRED PROVIDER ORGANIZAT ION (PPO) BRENDA MCCABE [facility] AC Apr 18, 2018 [id number] WILLIS,MAR JUDITH SPOUSE BCBS OF [facility] CE ORGANIZ BRENDA MCCABE [facility] ACT Apr 18, 2018 [id number] WILLIS,MAR JUDITH SPOUSE BCBS OF [facility] CE ORGANIZ BRENDA MCCABE [facility] AC Apr 18, 2018 [id number] [phone] WILLIS,MAR JUDITH SPOUSE CAR[place]ARK PRESCRIPT ION RX22M B Oct 19, 2022 RX22MB [id number] [phone] WILLIS,MAR JUDITH SPOUSE CAREMARK PRESCRIPT ION RX22M A Oct 19, 2022 RX22MA [id number] WILLIS,LAVELLE AEL PATIENT CAREMARK PRESCRIPT ION RX22M B Oct 19, 2022 RX22MB [id number] WILLIS,LAVELLE AEL PATIENT CAREMARK PRESCRIPT ION BRENDA MCCABE [facility] AC Oct 19, 2022 RX22MB [id number] WILLIS,LAVELLE AEL SPOUSE CAREMARK PRESCRIPT ION RX Oct 19, 2022 RX22MB [id number] WILLIS,MAR JUDITH SPOUSE [place] PRESCRIPT ION [place] OF [place] Oct 19, 2022 RX22MA [id number] WILLIS, SPOUSE CAREMARK ([id number]) PRESCRIPT ION [place] Oct 19, 2022 RX22MB [id number] WILLIS,MAR JUDITH SPOUSE [place] BCBS ([facility] CE ORGANIZ BRENDA MCCABE [facility] AC Apr 18, 2018 [id number] WILLIS,EDILBERTO SOTELOZA SPOUSE EXPRESS [place]IP[employer] PRESCRIPT I[place]BS [place] 2018 L4TA [id number] WILLIS,EDILBERTO SOTELOZA SPOUSE [employer] ([id number]) PRESCRIPT ION Apr 18, 2018 L4TA [id number] WILLIS,EDILBERTO SOTELOZA SPOUSE EXPRESS SCRIPTS ([id number]) PRESCRIPT ION L4TA* Apr 18, 2020 L4TA [id number] WILLIS,EDILBERTO PALAFOXA SPOUSE EXPRESS SCRIPTS ([id number]) PRESCRIPT ION L4TA Apr 18, 2018 L4TA [id number] WILLIS,EDILBERTO SOTELOZA SPOUSE EXPRESS SCRIPTS ([id number]) PRESCRIPT ION L4TA* Apr 18, 2018 L4TA [id number] WILLIS,EDILBERTO PALAFOXA SPOUSE EXPRESS SCRIPTS ([id number]) PRESCRIPT ION Apr 18, 2018 L4TA [id number] 32 WILLISEDILBERTO SPOUSE EXPRESS SCRIPTS ([id number]) PRESCRIPT ION Apr 18, 2018 L4TA [id number] WILLIS,EDILBERTO WONG SPOUSE EXPRESS SCRIPTS-MINOR BROGATION PRESCRIPT ION BCBS OF [place] Apr 18, 2020 L4TA [id number] WILLIS,EDILBERTO WONG SPOUSE [facility] CE ORGANIZAT ION W/OUT OF NETWORK BENEFITS [facility] ACT Apr 18, 2018 [id number] WILLISEDILBERTO SPOUSE [place] BCBS [facility] (BLUECARD) [facility] CE ORGANIZAT ION [facility]TRISTEN [facility] AC Apr 18, 2018 [id number] [phone] WILLISEDILBERTO SPOUSE MEDICARE (WNR) MEDICARE (M) PART A Mar 19, 1990 PART A [id number] [phone] WILLIS,LAVELLE AEL PATIENT MEDICARE (WNR) MEDICARE (M) PART A Mar 19, 1990 PART A [id number] [phone] WILLIS,LAVELLE AEL PATIENT MEDICARE (WNR) MEDICARE (M) PART A Mar 19, 1990 PART A [id number] [phone] WILLIS,LAVELLE AEL PATIENT MEDICARE (WNR) MEDICARE (M) PART A Mar 19, 1990 PART A [id number] [phone] WILLIS,LAVELLE AEL PATIENT MEDICARE (WNR) MEDICARE (M) PART A Mar 19, 1990 PART A [id number] WILLIS,LAVELLE AEL PATIENT MEDICARE (WNR) MEDICARE (M) PART A Mar 19, 1990 PART A [id number] [phone] WILLIS,LAVELLE AEL PATIENT MEDICARE (WNR) MEDICARE (M) PART A Mar 19, 1990 PART A [id number] WILLIS,LAVELLE AEL PATIENT MEDICARE (WNR) MEDICARE (M) PART A Mar 19, 1990 PART A [id number] WILLIS,LAVELLE AEL PATIENT MEDICARE (WNR) MEDICARE (M) PART A Mar 19, 1990 PART A [id number] WILLIS,LAVELLE AEL PATIENT MEDICARE (WNR) MEDICARE (M) PART A Mar 19, 1990 PART A [id number] WILLIS,LAVELLE AEL PATIENT MEDICARE (WNR) MEDICARE (M) PART A Mar 19, 1990 PART A [id number] WILLIS,LAVELLE AEL PATIENT Selected Encounter This section includes the information on record at [place] for the Encounter. Date/Time Encounter Type Encounter Description Reason Pro vider Source Apr 26, 2024 12:32 PM Outpatient Encounter ADMIN PAT ACTIVTIES (MASNONCT) [...] 30, 2024 08:30 AM AM[place] [facility] May 30, 2024 09:30 AM AM[place] [facility] Jun 01, 2024 10:00 AM AMBULATORY - MEDICINE [place] [facility] [place] [facility] Jun 01, 2024 11:30 AM AMBULATORY - MEDICINE [place] [facility] [place] [facility] Jun 28, 2024 11:30 AM AMBULATORY - MEDICINE [place] [facility] [place] [place] [facility] Jul 08, 2024 10:30 AM AM[place] [facility] Jul 13, 2024 09:30 AM AM[place] [facility] Aug 12, 2024 09:30 AM [place] [facility] Aug 22, 2024 09:00 AM [place] [facility] Sep 21, 2024 09:00 AM [place] [facility] Sep 21, 2024 10:00 AM [place] [facility] Social History: Smoking Status [...] took place. Date/Time Current Smoking Status Comment [facility] Nov 27, 2023 11:00 AM VA-TOBACCO [facility] Tobacco Use History This section includes a history of the smoking, or tobacco-related health factors, that were collected on or before the date of the Encounter. The data comes from the [place] facility where the Encounter took place. Date/Time Smoking Status/Tobac co Use Comment Facility Nov 27, 2023 11:00 AM [place]-TOBACCO QUIT 15 YRS OR MORE [place] [facility] [place] [facility] Dec 02, 2022 08:00 AM VA-TOBACCO FORMER USER [facility] Dec 02, 2022 08:00 AM VA-TOBACCO QUIT 15 YRS OR MORE [facility] [place] [place] [facility] Nov 05, 2021 10:30 AM [facility]ACCO [facility] Nov 05, 2021 10:30 AM VA-TOBACCO QUIT 1 TO < 5 YRS [facility] Sep 14, 2020 02:00 PM [facility]ACCO [facility] Sep 14, 2020 02:00 PM VA-TOBACCO QUIT 5 TO < 15 YRS [facility] Jan 22, 2018 03:40 PM QUIT TOBACCO USE > 7 YEARS AGO [facility] Jun 04, 2016 02:01 PM CURRENT SMOKER been smoking pass 20 yrs [facility] Jun 04, 2016 02:01 PM V1-PT DECLINES REF TO TOBACCO CESS PR[facility] Jun 04, 2016 02:01 PM V1-PT THINKING ABOUT QUIT TOBACCO USE [facility] Jul 18, 2014 03:31 PM V1-PT DECLINES REF TO TOBACCO CESS PRGM [facility] Jul 18, 2014 03:31 PM V1-PT DECLINES TOBACCO CESSATION MEDS [facility] Jul 18, 2014 03:31 PM V1-PT NOT INTERESTED IN QUIT TOBACCO USE [facility] [place] [place] [facility] Jan 09, 2014 10:43 AM CURRENT SMOKER pt smokes 1 pk of cigarettes per day. [facility] Jan 09, 2014 10:43 AM V1-PT THINKING ABOUT QUIT TOBACCO USE [facility] [place] Aug 28, 2003 10:47 AM CURRENT SMOKER one pack q 6 days - he has cut down from 3 PPD. He is in the process of quitting [facility] Radiology Reports: +/- 30 days of [...] the Encounter. The data comes from all [place] treatment facilities. Date/Time Radiology Report Provider Source Mar 28, 2024 09:45 AM LDCT LUNG CANCER SCREENING: CHAYA PEDRO [id number] -1955 M Exm Date: MAR 28, 2024@09:45 Req Phys: ELIZABET ROBINS Pat Loc: ZZCWM/NO/LCS ADMIN (Req'g Loc) Img Loc: NHM/CT Service: Unknown [place] [facility] [facility] , (Case 16 COMPLETE) LDCT LUNG CANCER SCREENING (CT Detailed) CPT:41183 Reason for Study: LUNG CANCER SCREENING Clinical History: QUIT SMOKING IN 2012 BASELINE LCS LDCT 03/30/2023: LUNG RADS 1 no new or concerning pulmonary mass or nodules. Plan for repeat in 12 months. Report Status: Verified Date Reported: MAR 28, 2024 Date Verified: MAR 28, 2024 Curtain Cutter Hand E-Sig:/ES/RAYMOND LEAL JR Report: Study: Lung cancer [...] reviewed. Secondary computer-aided detection with post-processing from [place] is used. The lack of intravenous contrast [...] Primary Interpreting Staff: RAYMOND LEAL JR, Radiologist (Curtain Cutter Hand) /RAYMOND SHELTON JR [facility] Encounter Notes: All associated encounter notes This section contains the clinical notes associated to the Encounter. Date/Time Encounter Note(s) Provider Source Apr 26, 2024 12:32 PM ADMINISTRATIVE NOT E: LOCAL TITLE: CCC: SCHEDULING ADMINISTRATION STANDARD TITLE: ADMINISTRATIVE NOTE DATE OF NOTE: APR 26, 2024@12:32:23 ENTRY DATE: APR 26, 2024@12:32:24 AUTHOR: DRAGAN SULLIVAN EXP COSIGNER: URGENCY: STATUS: COMPLETED Patient Demographics Patient Name: CHAYA PEDRO Patient Primary Phone: [phone] Patient Primary Address: [address] [place] [id number] Patient : 1955 Patient Age: 68 Caller/Recipient Relation to Patient: Self Administrative Administrative Note Reason: Other Administrative Note Comments: needs a refill on FAMOTIDINE 20MG . thank you /gaetano/ RDAGAN SULLIVAN Signed: 04/26/2024 12:32 Receipt Acknowledged By: 04/28/2024 14:54 /gaetano/ CIERRA GREGORY Nurse Practitioner 04/26/2024 14:19 /gaetano/ DEBBIE GORMAN, MSN, RN, CNL PRIMARY CARE TEAM NURSE DRAGAN SULLIVAN [place] [facility]
--- OUTSIDE RECORDS SUMMARY | 2024-11-01 08:00 | XMS_ITS | Encounter Summary ---
Author Name [place] Address [address] [place] [address] Care Team Providers Care Teacher Dramatics Name Role Phone ELIZABET ROBINS Primary Care [...] Name Patient's Relationship to Policy Paul [facility] CE ORGANIZ [facility] AC Apr 18, 2018 [id number] WILLIS,MAR JUDITH SPOUSE ANTHEM BCBS OF [place] (BLUECARD) [facility] CE ORGANIZ BRENDA [facility] [address] Apr 18, 2018 [id number] [phone] WILLIS,MAR JUDITH SPOUSE BCBS [facility] CE ORGANIZ [facility] SHARE ACTIV E Apr 18, 2018 [id number] WILLIS,MAR JUDITH SPOUSE BCBS OF [facility] CE ORGANIZ [facility] Apr 18, 2018 [id number] WILLIS,MAR JUDITH PATIENT BCBS OF [facility] CE ORGANIZ BRENDA [facility] Apr 18, 2018 [id number] WILLIS,MAR JUDITH SPOUSE [place]BS OF [place] PREFERRED PROVIDER ORGANIZAT ION (PPO) BRENDA [facility]E [facility] AC Apr 18, 2018 [id number] [id number] [phone] WILLIS,MAR JUDITH SPOUSE BCBS OF [facility] CE ORGANIZ BRENDA [facility] ACT Apr 18, 2018 [id number] WILLIS,MAR JUDITH SPOUSE BCBS OF [facility] CE ORGANIZ BRENDA [facility] AC Apr 18, 2018 [id number] [phone] WILLIS,MAR JUDITH SPOUSE [place] PRESCRIPT I[place] Oct 19, 2022 [id number] WILLIS, SPOUSE [place] PRESCRIPT ION RX22M A Oct 19, 2022 RX22MA [id number] WILLIS,LAVELLE AEL PATIENT [place] PRESCRIPT ION RX22M B Oct 19, 2022 RX22MB [id number] WILLIS,LAVELLE AEL PATIENT [place] PRESCRIPT ION RX22M B Oct 19, 2022 RX22MB [id number] WILLIS,MAR JUDITH SPOUSE [place] PRESCRIPT ION RX Oct 19, 2022 RX22MB [id number] WILLIS,MAR JUDITH SPOUSE [place] PRESCRIPT ION BRENDA [facility] AC Oct 19, 2022 RX22MB [id number] WILLIS,LAVELLE AEL SPOUSE [place] ([id number]) PRESCRIPT I[place] Oct 19, 2022 RX22MB [id number] WILLIS,MAR JUDITH SPOUSE [place] BC[place] ([facility] CE ORGANIZ BRENDA [facility]E [facility] AC Apr 18, 2018 [id number] [phone] WILLISEDILBERTO SPOUSE [place] PRESCRIPT [place] 2018 L4TA [id number] WILLISEDILBERTO SPOUSE [employer] ([id number]) PRESCRIPT ION Apr 18, 2018 L4TA [id number] WILLISEDILBERTO SPOUSE [employer] ([id number]) PRESCRIPT ION L4TA* Apr 18, 2020 L4TA [id number] WILLISEDILBERTO Lynn SPOUSE [employer] ([id number]) PRESCRIPT ION L4TA Apr 18, 2018 L4TA [id number] WILLISEDILBERTO SPOUSE [employer] ([id number]) PRESCRIPT ION Apr 18, 2018 L4TA [id number] WILLISEDILBERTO SPOUSE [employer] ([id number]) PRESCRIPT ION L4TA* Apr 18, 2018 L4TA [id number] WILLISEDILBERTO Lynn SPOUSE [employer] ([id number]) PRESCRIPT ION Apr 18, 2018 L4TA [id number] EDILBERTO EPDRO SPOUSE [employer]-MINOR BROGATION PRESCRIPT ION [place] Apr 18, 2020 L4TA [id number] WILLISEDILBERTO Lynn SPOUSE [facility] CE ORGANIZAT ION W/OUT OF NETWORK BENEFITS [facility] ACT Apr 18, 2018 [id number] EDILBERTO PEDRO SPOUSE [place] BCBS [facility] (BLUECAR) [facility] CE ORGANIZAT ION [facility] AC Apr 18, 2018 [id number] EDILBERTO PEDRO SPOUSE MEDICARE (WNR) MEDICARE (M) PART A Mar 19, 1990 PART A [id number] WILLISLAVELLE AEL PATIENT MEDICARE (WNR) MEDICARE (M) PART A Mar 19, 1990 PART A [id number] WILLIS,LAVELLE AEL PATIENT MEDICARE (WNR) MEDICARE (M) PART A Mar 19, 1990 PART A [id number] WILLIS,LAVELLE AEL PATIENT MEDICARE (WNR) MEDICARE (M) PART A Mar 19, 1990 PART A [id number] WILLIS,LAVELLE AEL PATIENT MEDICARE (WNR) MEDICARE (M) PART A Mar 19, 1990 PART A [id number] WILLIS,LAVELLE AEL PATIENT MEDICARE (WNR) MEDICARE (M) PART A Mar 19, 1990 PART A [id number] [phone] WILLIS,LAVELLE AEL PATIENT MEDICARE (WNR) MEDICARE (M) PART A Mar 19, 1990 PART A [id number] WILLIS,LAVELLE AEL PATIENT MEDICARE (WNR) MEDICARE (M) PART A Mar 19, 1990 PART A [id number] [phone] WILLIS,LAVELLE AEL PATIENT MEDICARE (WNR) MEDICARE (M) PART A Mar 19, 1990 PART A [id number] WILLIS,LAVELLE AEL PATIENT MEDICARE (WNR) MEDICARE (M) PART A Mar 19, 1990 PART A [id number] WILLIS,LAVELLE AEL PATIENT MEDICARE (WNR) MEDICARE (M) PART A Mar 19, 1990 PART A [id number] WILLIS,LAVELLE AEL PATIENT Selected Encounter This section includes the information on record at [place] for the Encounter. Date/Time Encounter Type Encounter Description Reason Pro vider Source Apr 11, 2024 09:10 AM Outpatient Encounter OPTOMETRY IHE Encounter Template Text not used by [place] Plan of Treatment: Future Appointments (+ 6 [...] 30, 2024 08:30 AM AMBULATORY - MEDICINE [place] [facility] [facility] May 30, 2024 09:30 AM AMBULATORY - MEDICINE [place] [facility] [facility] Jun 01, 2024 10:00 AM AMBULATORY - MEDICINE [place] [facility] [place] [facility] Jun 01, 2024 11:30 AM AMBULATORY - MEDICINE [place] [facility] [place] [facility] Jun 28, 2024 11:30 AM AMBULATORY - MEDICINE [place] [facility] [place] [facility] Jul 08, 2024 10:30 AM AMBULATORY - MEDICINE [place] [facility] [place] [facility] Jul 13, 2024 09:30 AM AMBULATORY - MEDICINE [place] [facility] [place] [facility] Aug 12, 2024 09:30 AM AMBULATORY - MEDICINE [place] C [place] [facility] Aug 22, 2024 09:00 AM AMBULATORY - MEDICINE [place] C [place] [facility] Sep 21, 2024 09:00 AM AMBULATORY - MEDICINE [place] C [facility] [facility] Sep 21, 2024 10:00 AM AMBULATORY - MEDICINE [place] C [facility] [facility] Social History: Smoking Status (Most current) and [...] took place. Date/Time Current Smoking Status Comment [facility] Nov 27, 2023 11:00 AM NV-TOBACCO QUIT 15 YRS OR MORE [facility] Tobacco Use History This section includes a history of the smoking, or tobacco-related health factors, that were collected on or before the date of the Encounter. The data comes from the [place] facility where the Encounter took place. Date/Time Smoking Status/Tobac co Use Comment Facility Nov 27, 2023 11:00 AM NV-TOBACCO QUIT 15 YRS OR MORE [place] [facility] [place] [facility] Dec 02, 2022 08:00 AM VA-TOBACCO [facility] Dec 02, 2022 08:00 AM VA-TOBACCO QUIT 15 YRS OR MORE [facility] Nov 05, 2021 10:30 AM VA-TOBACCO FORMER USER [facility] Nov 05, 2021 10:30 AM VA-TOBACCO QUIT 1 TO < 5 YRS [facility] Sep 14, 2020 02:00 PM VA-TOBACCO FORMER USER [facility] Sep 14, 2020 02:00 PM VA-TOBACCO QUIT 5 TO < 15 YRS [facility] Jan 22, 2018 03:40 PM QUIT TOBACCO USE > 7 [facility] AGO [facility] Jun 04, 2016 02:01 PM CURRENT SMOKER been smoking pass 20 yrs [facility] Jun 04, 2016 02:01 PM V1-PT DECLINES REF TO TOBACCO CESS PRGM [facility] Jun 04, 2016 02:01 PM V1-PT THINKING ABOUT QUIT TOBACCO USE [facility] Jul 18, 2014 03:31 PM V1-PT DECLINES REF TO TOBACCO CESS PRGM [facility] Jul 18, 2014 03:31 PM V1-PT DECLINES TOBACCO CESSATION MEDS [facility] Jul 18, 2014 03:31 PM V1-PT NOT INTERESTED IN QUIT TOBACCO USE [facility] Jan 09, 2014 10:43 AM CURRENT SMOKER pt smokes 1 pk of cigarettes per day. [facility] Jan 09, 2014 10:43 AM V1-PT THINKING ABOUT QUIT [facility]ACCO [facility] Aug 28, 2003 10:47 AM CURRENT SMOKER one pack q 6 days - he has cut down from 3 PPD. He is in the process of quitting [facility] Radiology Reports: +/- 30 days of [...] the Encounter. The data comes from all [place] treatment facilities. Date/Time Radiology Report Provider Source Mar 28, 2024 09:45 AM LDCT LUNG CANCER SCREENING: CHAYA PEDRO [id number] -1955 M Exm Date: MAR 28, 2024@09:45 Req Phys: ELIZABET ROBINS Pat Loc: ZZCWM/NO/LCS ADMIN (Req'g Loc) Img Loc: NHM/CT Service: Unknown [place] CNTR [facility] [facility] , (Case 16 COMPLETE) LDCT LUNG CANCER SCREENING (CT Detailed) CPT:28835 Reason for Study: LUNG CANCER SCREENING Clinical History: QUIT SMOKING IN 2012 BASELINE LCS LDCT 03/30/2023: LUNG RADS 1 no new or concerning pulmonary mass or nodules. Plan for repeat in 12 months. Report Status: Verified Date Reported: MAR 28, 2024 Date Verified: MAR 28, 2024 Diesel Engine Specialist E-Sig:/ES/RAYMOND LEAL JR Report: Study: Lung cancer [...] reviewed. Secondary computer-aided detection with post-processing from [employer] is used. The lack of intravenous contrast [...] Primary Interpreting Staff: RAYMOND LEAL JR, Radiologist (Diesel Engine Specialist) /RAYMOND SHELTON JR [facility] Encounter Notes: All associated encounter notes This section contains the clinical notes associated to the Encounter. Date/Time Encounter Note(s) Provider Source Apr 11, 2024 09:10 AM OPTOMETRY TELEPHON E ENCOUNTER NOTE: LOCAL TITLE: OPTOMETRY TELEPHONE NOTE STANDARD TITLE: OPTOMETRY TELEPHONE ENCOUNTER NOTE DATE OF NOTE: APR 11, 2024@09:10 ENTRY DATE: APR 11, 2024@09:10:43 AUTHOR: STACIA CAMPO EXP COSIGNER: URGENCY: STATUS: COMPLETED OPTOMETRY TELEPHONE NOTE Has ADDENDA patient called to request replacement devora mask - strap broke. Also requests more covers for it. Reports eyes have been doing very well - no styes if he keeps up with warm compresses and doxycycline 50mg BID. No issues with photosensitivity either. Requests doxy to be renewed - discussed decreasing to 50mg qdaily - if he begins getting inflammation again we can increase it again to BID. Pt in agreement. Alerting HT to send more devora mask covers. /gaetano/ STACIA CAMPO OD Strip Presser Signed: 04/11/2024 09:13 Receipt Acknowledged By: 04/11/2024 12:55 /gaetano/ DEREJE [facility]OR[facility]O [facility] 04/11/2024 ADDENDUM STATUS: COMPLETED Mailed as requested /gaetano/ DEREJE DANGELO [facility] Signed: 04/11/2024 12:56 STACIA CAPMO [facility]
--- OUTSIDE RECORDS SUMMARY | 2024-11-01 08:00 | XMS_ITS | Encounter Summary ---
Author Name [place] Address [address] [place] [address] Care Team Providers Care Calendering Supervisor Name Role Phone ELIZABET ROBINS Primary Care [...] Name Patient's Relationship to Policy Paul [facility] CE ORGANIZ [facility] AC Apr 18, 2018 [id number] WILLIS,MAR JUDITH SPOUSE ANTHEM BCBS OF [place] (BLUECARD) [facility] CE ORGANIZ BRENDA [facility] Apr 18, 2018 [id number] [phone] WILLIS,MAR JUDITH SPOUSE BCBS [facility] CE ORGANIZ [facility] SHARE ACTIV E Apr 18, 2018 [id number] WILLIS,MAR JUDITH SPOUSE BCBS OF [facility] CE ORGANIZ [facility] Apr 18, 2018 [id number] WILLIS,MAR JUDITH PATIENT BCBS OF [facility] CE ORGANIZ BRENDA [facility] Apr 18, 2018 [id number] WILLIS,MAR JUDITH SPOUSE BCBS OF [place] PREFERRED PROVIDER ORGANIZAT ION (PPO) BRENDA MCCABE [facility] AC Apr 18, 2018 [id number] WILLIS,MAR JUDITH SPOUSE BCBS OF [facility] CE ORGANIZ BRENDA [facility]CCABE [facility] ACT Apr 18, 2018 [id number] WILLIS,MAR JUDITH SPOUSE BCBS OF [facility] CE ORGANIZ BRENDA MCCABE [facility] AC Apr 18, 2018 [id number] [phone] WILLIS,MAR JUDITH SPOUSE [place] PRESCRIPT ION RX22M A Oct 19, 2022 RX22MA [id number] WILLIS,LAVELLE AEL PATIENT [place] PRESCRIPT ION RX22M B Oct 19, 2022 RX22MB [id number] WILLIS,LAVELLE AEL PATIENT [place] PRESCRIPT ION BRENDA MCCABE [facility] AC Oct 19, 2022 RX22MB [phone] WILLIS,LAVELLE AEL SPOUSE [place] PRESCRIPT ION BCBS OF [place] Oct 19, 2022 RX22MA [id number] WILLIS, SPOUSE [place] PRESCRIPT ION RX Oct 19, 2022 RX22MB [id number] WILLIS,MAR JUDITH SPOUSE [place] PRESCRIPT ION RX22M B Oct 19, 2022 RX22MB [id number] WILLIS,MAR JUDITH SPOUSE [place] ([id number]) PRESCRIPT ION [place] Oct 19, 2022 RX22MB [phone] WILLIS,MAR JUDITH SPOUSE [place] BCBS ([facility] CE ORGANIZ BRENDA MCCABE [facility] AC Apr 18, 2018 [id number] WILLIS,EDILBERTO SOTELOZA SPOUSE [employer] [place] PRESCRIPT I[place] 2018 L4TA [id number] WILLIS,EDILBERTO SOTELOZA SPOUSE [employer] ([id number]) PRESCRIPT ION Apr 18, 2018 L4TA [id number] WILLIS,EDILBERTO WONG SPOUSE [employer] ([id number]) PRESCRIPT ION L4TA* Apr 18, 2020 L4TA [id number] WILLIS,EDILBERTO PALAFOXA SPOUSE [employer] ([id number]) PRESCRIPT ION L4TA* Apr 18, 2018 L4TA [id number] WILLIS,EDILBERTO PALAFOXA SPOUSE [employer] ([id number]) PRESCRIPT ION Apr 18, 2018 L4TA [id number] WILLIS,EDILBERTO WONG SPOUSE [employer] ([id number]) PRESCRIPT ION Apr 18, 2018 L4TA [id number] WILLISEDILBERTO SPOUSE [employer] ([id number]) PRESCRIPT ION L4TA Apr 18, 2018 L4TA [id number] WILLIS,EDILBERTO WONG SPOUSE EXPRESS [employer]TS-MINOR BROGATION PRESCRIPT ION [place] OF [place] Apr 18, 2020 L4TA [id number] WILLIS,EDILBERTO WONG SPOUSE [facility] CE ORGANIZAT ION W/OUT OF NETWORK BENEFITS [facility] ACT Apr 18, 2018 [id number] EDILBERTO PEDRO SPOUSE [place] BCBS [facility] (BLUECAR) [facility] CE ORGANIZAT ION [facility] AC Apr 18, 2018 [id number] EDILBERTO PEDRO SPOUSE MEDICARE (WNR) MEDICARE (M) PART A Mar 19, 1990 PART A [id number] [phone] WILLISLAVELLE FERGUSONL PATIENT MEDICARE (WNR) MEDICARE (M) PART A Mar 19, 1990 PART A [id number] WILLIS,LAVELLE AEL PATIENT MEDICARE (WNR) MEDICARE (M) PART A Mar 19, 1990 PART A [id number] WILLIS,LAVELLE AEL PATIENT MEDICARE (WNR) MEDICARE (M) PART A Mar 19, 1990 PART A [id number] WILLIS,LAVELLE AEL PATIENT MEDICARE (WNR) MEDICARE (M) PART A Mar 19, 1990 PART A [id number] WILLIS,LAVELLE AEL PATIENT MEDICARE (WNR) MEDICARE (M) PART A Mar 19, 1990 PART A [id number] WILLIS,LAVELLE AEL PATIENT MEDICARE (WNR) MEDICARE (M) PART A Mar 19, 1990 PART A [id number] WILLIS,LAVELLE AEL PATIENT MEDICARE (WNR) MEDICARE (M) PART A Mar 19, 1990 PART A [id number] [phone] WILLIS,LAVELLE AEL PATIENT MEDICARE (WNR) MEDICARE (M) PART A Mar 19, 1990 PART A [id number] [phone] WILLIS,LAVELLE AEL PATIENT MEDICARE (WNR) MEDICARE (M) PART A Mar 19, 1990 PART A [id number] [phone] [id number] WILLIS,LAVELLE AEL PATIENT MEDICARE (WNR) MEDICARE (M) PART A Mar 19, 1990 PART A [id number] WILLIS,LAVELLE AEL PATIENT Selected Encounter This section includes the information on record at [place] for the Encounter. Date/Time Encounter Type Encounter Description Reason Pro vider Source Apr 11, 2024 08:42 AM Outpatient Encounter OPTOMETRY IHE Encounter Template Text not used by [place] Plan of Treatment: Future Appointments (+ 6 [...] 20 appointments. The data comes from all [place] treatment facilities. Appointment Date/Time Appointment Type Appointme nt Facility Name May 30, 2024 08:30 AM AMBULATORY - MEDICINE [place] [facility] May 30, 2024 09:30 AM AMBULATORY - MEDICINE [place] C [place] [place] [facility] Jun 01, 2024 10:00 AM AMBULATORY - MEDICINE [place] [place] [facility] Jun 01, 2024 11:30 AM AMBULATORY - MEDICINE [place] [place] [facility] Jun 28, 2024 11:30 AM AMBULATORY - MEDICINE [place] [place] [facility] Jul 08, 2024 10:30 AM AMBULATORY - MEDICINE [place] [place] [facility] Jul 13, 2024 09:30 AM AMBULATORY - MEDICINE [place] [place] [facility] Aug 12, 2024 09:30 AM AMBULATORY - MEDICINE [place] [facility] Aug 22, 2024 09:00 AM AMBULATORY - MEDICINE [place] [place] [facility] Sep 21, 2024 09:00 AM AMBULATORY - MEDICINE [place] [place] [facility] Sep 21, 2024 10:00 AM AMBULATORY - MEDICINE PA C [place] [place] [facility] Social History: Smoking Status (Most current) and Tobacco Use (All prior to encounter date) This section includes the most current, and the historical, smoking and tobacco- related health factors from the [place] facility where the Encounter took place. Current Smoking Status This section includes the most current smoking, or tobacco-related health factor, from the [place] facility where the Encounter took place. Date/Time Current Smoking Status Comment [facility] Nov 27, 2023 11:00 AM VA-TOBACCO [facility] Tobacco Use History This section includes a history of the smoking, or tobacco-related health factors, that were collected on or before the date of the Encounter. The data comes from the [place] facility where the Encounter took place. Date/Time Smoking Status/Tobac co Use Comment Facility Nov 27, 2023 11:00 AM PA-TOBACCO QUIT 15 YRS OR MORE [place] [facility] [place] [facility] Dec 02, 2022 08:00 AM VA-TOBACCO FORMER USER [facility] Dec 02, 2022 08:00 AM VA-TOBACCO QUIT 15 YRS OR MORE [facility] Nov 05, 2021 10:30 AM VA-TOBACCO FORMER USER [facility] Nov 05, 2021 10:30 AM VA-TOBACCO QUIT 1 TO < 5 YRS [facility] Sep 14, 2020 02:00 PM VA-TOBACCO FORMER USER [facility] Sep 14, 2020 02:00 PM VA-TOBACCO QUIT 5 TO < 15 YRS [facility] Jan 22, 2018 03:40 PM QUIT TOBACCO USE > 7 YEARS AGO [facility] Jun 04, 2016 02:01 PM CURRENT SMOKER been smoking pass 20 yrs [facility] Jun 04, 2016 02:01 PM V1-PT DECLINES REF TO TOBACCO CESS PRGM [facility] Jun 04, 2016 02:01 PM V1-PT THINKING ABOUT QUIT TOBACCO USE [facility] Jul 18, 2014 03:31 PM V1-PT DECLINES REF TO TOBACCO CESS PRGM [facility] Jul 18, 2014 03:31 PM V1-PT DECLINES TOBACCO CESSATION MEDS [facility] Jul 18, 2014 03:31 PM V1-PT NOT INTERESTED IN QUIT TOBACCO USE [facility] Jan 09, 2014 10:43 AM CURRENT SMOKER pt smokes 1 pk of cigarettes per day. [facility] Jan 09, 2014 10:43 AM V1-PT THINKING ABOUT QUIT TOBACCO USE [facility] Aug 28, 2003 10:47 AM CURRENT SMOKER one pack q 6 days - he has cut down from 3 PPD. He is in the process of quitting [facility] Radiology Reports: +/- 30 days of [...] the Encounter. The data comes from all [place] treatment facilities. Date/Time Radiology Report Provider Source Mar 28, 2024 09:45 AM LDCT LUNG CANCER SCREENING: CHAYA PEDRO [id number] -1955 M Exm Date: MAR 28, 2024@09:45 Req Phys: ELIZABET ROBINS Pat Loc: ZZCWM/NO/LCS ADMIN (Req'g Loc) Img Loc: NHM/CT Service: Unknown [place] [facility] [place] [facility] , (Case 16 COMPLETE) LDCT LUNG CANCER SCREENING (CT Detailed) CPT:57715 Reason for Study: LUNG CANCER SCREENING Clinical History: QUIT SMOKING IN 2012 BASELINE LCS LDCT 03/30/2023: LUNG RADS 1 no new or concerning pulmonary mass or nodules. Plan for repeat in 12 months. Report Status: Verified Date Reported: MAR 28, 2024 Date Verified: MAR 28, 2024 Digital Printer Operator E-Sig:/ES/RAYMOND LEAL JR Report: Study: Lung cancer [...] reviewed. Secondary computer-aided detection with post-processing from [employer] is used. The lack of intravenous contrast [...] Primary Interpreting Staff: RAYMOND LEAL JR, Radiologist (Digital Printer Operator) /RAYMOND SHELTON JR [facility] Encounter Notes: All associated encounter notes This section contains the clinical notes associated to the Encounter. Date/Time Encounter Note(s) Provider Source Apr 11, 2024 08:42 AM TELEPHONE ENCOUNTE R NOTE: LOCAL TITLE: TELEPHONE NOTE/SPECIALTY CLINIC STANDARD TITLE: TELEPHONE ENCOUNTER NOTE DATE OF NOTE: APR 11, 2024@08:42 ENTRY DATE: APR 11, 2024@08:42:55 AUTHOR: YENNY CORRAL EXP COSIGNER: URGENCY: STATUS: COMPLETED is requesting a gel mask and pillow/cushions for his eyes. Phone and address confirmed. Please advise /gaetano/ YENNY CORRAL COMMERCIAL REAL ESTATE ASSISTANT Signed: 04/11/2024 08:44 Receipt Acknowledged By: 04/11/2024 09:14 /gaetano/ STACIA CAMPO OD Oracle Consultant YENNY CORRAL [facility]
--- OUTSIDE RECORDS SUMMARY | 2024-11-01 08:01 | XMS_ITS | Encounter Summary ---
Author Name [place] Address [address] [place] [address] Care Team Providers Care Neck Cutter Name Role Phone ELIZABET ROBINS Primary Care [...] Paul's Name Patient's Relationship to Policy Paul [facility] CE ORGANIZ [facility] AC Apr 18, 2018 [id number] WILLIS,MAR JUDITH SPOUSE ANTHEM BCBS OF [place] (BLUECARD) [facility] CE ORGANIZ BRENDA [facility] Apr 18, 2018 [id number] WILLIS,MAR JUDITH SPOUSE BCBS [facility] CE ORGANIZ [facility] SHARE ACTIV E Apr 18, 2018 [id number] [phone] WILLIS,MAR JUDITH SPOUSE BCBS OF [facility] CE ORGANIZ [facility] Apr 18, 2018 [id number] WILLIS,MAR JUDITH PATIENT BCBS OF [facility] CE ORGANIZ BRENDA [facility] Apr 18, 2018 [id number] WILLIS,MAR JUDITH SPOUSE BC[place] OF [place] PREFERRED PROVIDER ORGANIZAT ION (PPO) BRENDA [facility] AC Apr 18, 2018 [id number] [phone] WILLIS,MAR JUDITH SPOUSE BCBS OF [facility] CE ORGANIZ BRENDA [facility] ACT Apr 18, 2018 [id number] WILLIS,MAR JUDITH SPOUSE BCBS OF [facility] CE ORGANIZ BRENDA [facility] AC Apr 18, 2018 [id number] [phone] WILLIS,MAR JUDITH SPOUSE [place] PRESCRIPT ION BRENDA [facility] AC Oct 19, 2022 RX22MB [id number] [phone] WILLIS,LAVELEL AEL SPOUSE [place] PRESCRIPT ION RX22M A Oct 19, 2022 RX22MA [id number] WILLIS,LAVELLE AEL PATIENT [place] PRESCRIPT ION RX22M B Oct 19, 2022 RX22MB [id number] WILLIS,LAVELLE AEL PATIENT [place] PRESCRIPT [place] Oct 19, 2022 RX22MA [id number] WILLIS, SPOUSE [place] PRESCRIPT ION RX22M B Oct 19, 2022 RX22MB [phone] WILLIS,MAR JUDITH SPOUSE [place] PRESCRIPT ION RX Oct 19, 2022 RX22MB [id number] [phone] WILLIS,MAR JUDITH SPOUSE [place] ([id number]) PRESCRIPT I[place] Oct 19, 2022 RX22MB [id number] WILLIS,MAR JUDITH SPOUSE [place] BC[place] ([facility]LY [facility] CE ORGANIZ BRENDA [facility] AC Apr 18, 2018 [id number] [phone] WILLIS,EDILBERTO SOTELOZA SPOUSE [place] PRESCRIPT [place] 2018 L4TA [id number] WILLIS,EDILBERTO SOTELOZA SPOUSE [employer] ([id number]) PRESCRIPT ION Apr 18, 2018 L4TA [id number] WILLIS,EDILBERTO SOTELOZA SPOUSE [employer] ([id number]) PRESCRIPT ION L4TA* Apr 18, 2020 L4TA [id number] WILLISEDILBERTOA SPOUSE [employer] ([id number]) PRESCRIPT ION L4TA* Apr 18, 2018 L4TA [id number] WILILS,EDILBERTO PALAFOXA SPOUSE [employer] ([id number]) PRESCRIPT ION L4TA Apr 18, 2018 L4TA [id number] WILLIS,EDILBERTO WONG SPOUSE [employer] ([id number]) PRESCRIPT ION Apr 18, 2018 L4TA [id number] WILLISEDILBERTO SPOUSE [employer] ([id number]) PRESCRIPT ION Apr 18, 2018 L4TA [id number] WILLISEDILBERTO SPOUSE [employer] [place]-MINOR BROGATION PRESCRIPT ION [place] OF [place] Apr 18, 2020 L4TA [id number] WILLISEDILBERTO SPOUSE [place] [facility] CE ORGANIZAT ION W/OUT OF NETWORK BENEFITS [facility] RSD ACT Apr 18, 2018 [id number] EDILBERTO PEDRO SPOUSE [place] BCBS [facility] (BLUECAR) [facility] CE ORGANIZAT ION [facility] RSD AC Apr 18, 2018 [id number] EDILBERTO PEDRO SPOUSE MEDICARE (WNR) MEDICARE (M) PART A Mar 19, 1990 PART A [id number] WILLISLAVELLE AEL PATIENT MEDICARE (WNR) MEDICARE (M) PART A Mar 19, 1990 PART A [id number] WILLIS,LAVELLE AEL PATIENT MEDICARE (WNR) MEDICARE (M) PART A Mar 19, 1990 PART A [id number] [phone] WILLIS,LAVELLE AEL PATIENT MEDICARE (WNR) MEDICARE (M) PART A Mar 19, 1990 PART A [id number] WILLIS,LAVELLE AEL PATIENT MEDICARE (WNR) MEDICARE (M) PART A Mar 19, 1990 PART A [id number] WILLIS,LAVELLE AEL PATIENT MEDICARE (WNR) MEDICARE (M) PART A Mar 19, 1990 PART A [id number] WILLIS,LAVELLE AEL PATIENT MEDICARE (WNR) MEDICARE (M) PART A Mar 19, 1990 PART A [id number] WILLIS,LAVELLE AEL PATIENT MEDICARE (WNR) MEDICARE (M) PART A Mar 19, 1990 PART A [id number] WILLIS,LAVELLE AEL PATIENT MEDICARE (WNR) MEDICARE (M) PART A Mar 19, 1990 PART A [id number] [phone] WILLIS,LAVELLE AEL PATIENT MEDICARE (WNR) MEDICARE (M) PART A Mar 19, 1990 PART A [id number] WILLIS,LAVELLE AEL PATIENT MEDICARE (WNR) MEDICARE (M) PART A Mar 19, 1990 PART A [id number] [phone] WILLIS,LAVELLE AEL PATIENT Selected Encounter This section includes the information on [place] at [place] for the Encounter. Date/Time Encounter Type Encounter Description Reason Pro vider Source May 24, 2024 04:27 PM Outpatient Encounter COMMUNITY CARE CONSULT IHE [...] - MEDICINE [facility] [place] [facility] May 30, 2024 09:30 AM AMBULATORY - MEDICINE [facility] [place] [facility] Jun 01, 2024 10:00 AM AMBULATORY - MEDICINE [facility] [place] [facility] Jun 01, 2024 11:30 AM AMBULATORY [facility] MEDICINE [facility] [place] [facility] Jun 28, 2024 11:30 AM AMBULATORY - MEDICINE [facility] [place] [facility] Jul 08, 2024 10:30 AM AMBULATORY - MEDICINE [facility] [place] [facility] Jul 13, 2024 09:30 AM AMBULATORY - MEDICINE [facility] [place] [facility] Aug 12, 2024 09:30 AM AMBULATORY - MEDICINE [facility] [place] [facility] Aug 22, 2024 09:00 AM AMBULATORY - MEDICINE [facility] [place] [facility] Sep 21, 2024 09:00 AM AMBULATORY - MEDICINE [facility] [place] [facility] Sep 21, 2024 10:00 AM AMBULATORY - MEDICINE [facility] [place] [facility] Lab Results: +/- 30 days [...] Range Comment Jun 01, 2024 12:25 PM [place] [facility] [place] [facility] MICROALBUMIN CREATININE RATIO PANEL Specimen Type: URINE No comment entered. Ordering Provider: LINDA PERSON Report Released Date/Time: Jun 01, 2024 11:53 AM Reporting Lab: [place] [facility] [place] [facility] [address] [facility] [address] Performing Lab: [facility] [address] MICROALBUMIN/C REATININE RATIO 10.8 mg/g 0-29.9 MICROALBUMIN,Q UANTITATIVE 1.1 mg/dL RR UNAVAIL CREATININE URINE 101.63 mg/dL Jun 01, 2024 10:38 AM [facility] HEMOGLOBIN A1C PANEL [...] May 30, 2024 10:29 AM Reporting Lab: [address] [address] Performing Lab: [address] [address] HEMOGLOBIN A1C 5.8 H 4.0-5.6 Jun 01, 2024 10:38 AM [facility] BASIC METABOLIC PANEL (non-fasting) Specimen Type: SERUM No comment entered. Ordering Provider: LINDA PERSON Report Released Date/Time: May 30, 2024 10:29 AM Reporting Lab: [address] [address] Performing Lab: [address] [address] UREA NITROGEN 13 mg/dL 7-25 GLUCOSE 115 mg/dL H 65-100 SODIUM 140 mmol/L 135-145 POTASSIUM 4.3 mmol/L 3.5-5.0 CHLORIDE 107 mmol/L 100-110 CO2 21 meq/L 20-30 CREATININE, Serum 0.84 mg/dL 0.50-1.40 eGFR(CKD-EPI 2020) >90 mL/min >60 Jun 01, 2024 10:38 AM [facility] LIPID PANEL, NON FASTING Specimen Type: SERUM No comment entered. Ordering Provider: LINDA PERSON Report Released Date/Time: Jun 01, 2024 10:12 AM Reporting Lab: [facility] [address] [facility] [address] Performing Lab: [place] [facility] [place] [facility] [address] [facility] [address] CHOLESTEROL 126 mg/dL TRIGLYCERIDE 114 mg/dL 0-150 [...] took place. Date/Time Current Smoking Status Comment [facility] Nov 27, 2023 11:00 AM VA-TOBACCO FORMER USER [place] [facility] [place] [facility] Tobacco Use History This section includes a history of the smoking, or tobacco-related health factors, that were collected on or before the date of the Encounter. The data comes from the [place] facility where the Encounter took place. Date/Time Smoking Status/Tobac co Use Comment Facility Nov 27, 2023 11:00 AM VA-TOBACCO QUIT 15 YRS OR MORE [place] [facility] [place] [facility] Dec 02, 2022 08:00 AM VA-TOBACCO FORMER USER [facility] [place] [facility] Dec 02, 2022 08:00 AM VA-TOBACCO QUIT 15 YRS OR MORE [place] [facility] [place] [facility] Nov 05, 2021 10:30 AM VA-TOBACCO FORMER USER [place] [facility] [place] [facility] Nov 05, 2021 10:30 AM VA-TOBACCO QUIT 1 TO < 5 YRS [facility] [place] [facility] Sep 14, 2020 02:00 PM VA-TOBACCO FORMER USER [facility] [place] [facility] Sep 14, 2020 02:00 PM VA-TOBACCO QUIT 5 TO < 15 YRS [facility] [place] [facility] Jan 22, 2018 03:40 PM QUIT TOBACCO USE > 7 YEARS AGO [facility] [place] [facility] Jun 04, 2016 02:01 PM CURRENT SMOKER been smoking pass 20 yrs [place] [facility] [place] [facility] Jun 04, 2016 02:01 PM V1-PT DECLINES REF TO TOBACCO [facility]ESS [facility] Jun 04, 2016 02:01 PM [...] the process of quitting [facility] Encounter Notes: All associated encounter notes This section contains the clinical notes associated to the Encounter. Date/Time Encounter Note(s) Provider Source May 24, 2024 04:27 PM NONVA NOTE: [facility] TITLE: [facility] PRESENTING [facility] COORD PLAN STANDARD TITLE: NONVA NOTE DATE OF NOTE: MAY 24, 2024@16:27 ENTRY DATE: MAY 24, 2024@16:27:43 AUTHOR: SONNY BOGGS EXP COSIGNER: URGENCY: STATUS: COMPLETED Emergency Notification Intake Date Presenting to the Facility: Apr Method of Contact: Notified from [facility] worklist Notification ID: [id number] [facility] Referral #: [facility] Name: Hospital: [facility] Address: City: [place] State: [place] Zip Code: Phone : [facility] Point of Contact: Name: Marine Phone: Chief complaint: R20.0 Primary Diagnosis: Disposition Discharged Date of discharge: Apr Discharge to Comment: ER Only /gaetano/ SONNY RITCHIE Signed: 05/24/2024 16:30 Receipt Acknowledged By: 05/25/2024 10:11 /gaetano/ CIERRA GREGORY Nurse Practitioner 05/24/2024 17:17 /es/ Melonie Morton MSN,RN,[facility] TRANSFER/TRAVELING COORDINATOR 05/25/2024 07:59 /es/ DEBBIE GORMAN, MSN, RN, CNL PRIMARY CARE TEAM NURSE 05/25/2024 08:18 /es/ Marcia Maurer, contracts administrator Staff Nurse [facility]ILL[facility]ONNY [place]
--- OUTSIDE RECORDS SUMMARY | 2024-11-01 08:01 | XMS_ITS ---
Author Name [place] Address [address] [place] [address] Care Team Providers Care Greaser Operator Name Role Phone ELIZABET ROBINS Primary [...] Paul [facility] CE ORGANIZ [facility] Apr 18, 2018 [id number] WILLIS,MAR JUDITH SPOUSE ANTHEM BCBS OF [place] (BLUECARD) [facility] CE ORGANIZ BRENDA [facility] Apr 18, 2018 [id number] [phone] WILLIS,MAR JUDITH SPOUSE BCBS [facility] CE ORGANIZ [facility] SHARE ACTIV E Apr 18, 2018 [id number] [phone] WILLIS,MAR JUDITH SPOUSE BCBS OF [facility] CE ORGANIZ [facility] Apr 18, 2018 [id number] WILLIS,MAR JUDITH PATIENT BCBS OF [facility] CE ORGANIZ BRENDA [facility] Apr 18, 2018 [id number] WILLIS,MAR JUDITH SPOUSE BC[place] OF [place] PREFERRED PROVIDER ORGANIZAT ION (PPO) BRENDA [facility]CCABE [facility] AC Apr 18, 2018 [id number] WILLIS,MAR JUDITH SPOUSE BCBS OF [facility] CE ORGANIZ BRENDA [facility]CC[facility] ACT Apr 18, 2018 [id number] WILLIS,MAR JUDITH SPOUSE BCBS OF [facility] CE ORGANIZ BRENDA [facility]CC[facility] AC Apr 18, 2018 [id number] [phone] WILLIS,MAR JUDITH SPOUSE [place] PRESCRIPT ION RX22M A Oct 19, 2022 RX22MA [id number] WILLIS,LAVELLE AEL PATIENT [place] PRESCRIPT ION RX22M B Oct 19, 2022 RX22MB [id number] WILLIS,LAVELLE AEL PATIENT [place] PRESCRIPT ION [facility]ENDA [facility]CCABE [facility] AC Oct 19, 2022 RX22MB [id number] [phone] WILLIS,LAVELLE AEL SPOUSE [place] PRESCRIPT ION BCBS OF [place] Oct 19, 2022 RX22MA [phone] WILLIS, SPOUSE [place] PRESCRIPT ION RX22M B Oct 19, 2022 RX22MB [id number] [phone] WILLIS,MAR JUDITH SPOUSE [place] PRESCRIPT ION RX Oct 19, 2022 RX22MB [id number] [phone] WILLIS,MAR JUDITH SPOUSE [place] ([id number]) PRESCRIPT ION BCBS OF [place] Oct 19, 2022 RX22MB [id number] WILLIS,MAR JUDITH SPOUSE [place] BCBS ([facility] CE ORGANIZ BRENDA MCCABE ST RSD AC Apr 18, 2018 [id number] [phone] WILLIS,EDILBERTO WONG SPOUSE [employer] PRESCRIPT I[place]BS [place] 2018 L4TA [id number] WILLIS,EDILBERTO SOTELOZA SPOUSE [employer] ([id number]) PRESCRIPT ION Apr 18, 2018 L4TA [id number] WILLIS,EDILBERTO SOTELOZA SPOUSE [employer] ([id number]) PRESCRIPT ION L4TA* Apr 18, 2020 L4TA [id number] WILLIS,EDILBERTO PALAFOXA SPOUSE [employer] ([id number]) PRESCRIPT ION L4TA* Apr 18, 2018 L4TA [id number] WILLIS,EDILBERTO PALAFOXA SPOUSE [employer] ([id number]) PRESCRIPT ION L4TA Apr 18, 2018 L4TA [id number] WILLIS,EDILBERTO WONG SPOUSE [employer] ([id number]) PRESCRIPT ION Apr 18, 2018 L4TA [id number] 32 WILLISEDILBERTO SPOUSE [employer] ([id number]) PRESCRIPT ION Apr 18, 2018 L4TA [id number] WILLISEDILBERTO SPOUSE [employer]-MINOR BROGATION PRESCRIPT ION BCBS OF [place] Apr 18, 2020 L4TA [id number] WILLIS,EDILBERTO WONG SPOUSE [place] [facility] CE ORGANIZAT ION W/OUT OF NETWORK BENEFITS [facility] RSD ACT Apr 18, 2018 [id number] [phone] WILLISEDILBERTO SPOUSE [place] BCBS [facility] (BLUECAR) [facility] CE ORGANIZAT ION [facility]TRISTEN [facility] RSD AC Apr 18, 2018 [id number] [phone] WILLISEDILBERTO SPOUSE MEDICARE (WNR) MEDICARE (M) PART A Mar 19, 1990 PART A [id number] WILLISLAVELLE PATIENT MEDICARE (WNR) MEDICARE (M) PART A Mar 19, 1990 PART A [id number] WILLIS,LAVELLE AEL PATIENT MEDICARE (WNR) MEDICARE (M) PART A Mar 19, 1990 PART A [id number] WILLIS,LAVELLE AEL PATIENT MEDICARE (WNR) MEDICARE (M) PART A Mar 19, 1990 PART A [id number] [phone] WILLIS,LAVELLE AEL PATIENT MEDICARE (WNR) MEDICARE (M) PART A Mar 19, 1990 PART A [id number] [phone] WILLIS,LAVELLE AEL PATIENT MEDICARE (WNR) MEDICARE (M) PART A Mar 19, 1990 PART A [id number] WILLIS,LAVELLE AEL PATIENT MEDICARE (WNR) MEDICARE (M) PART A Mar 19, 1990 PART A [id number] WILLIS,LAVELLE AEL PATIENT MEDICARE (WNR) MEDICARE (M) PART A Mar 19, 1990 PART A [id number] WILLIS,LAVELLE AEL PATIENT MEDICARE (WNR) MEDICARE (M) PART A Mar 19, 1990 PART A [id number] WILLIS,LAVELLE AEL PATIENT MEDICARE (WNR) MEDICARE (M) PART A Mar 19, 1990 PART A [id number] WILLIS,LAVELLE AEL PATIENT MEDICARE (WNR) MEDICARE (M) PART A Mar 19, 1990 PART A [id number] [phone] WILLIS,LAVELLE AEL PATIENT Selected Encounter This section includes the information on record at [place] for the Encounter. Date/Time Encounter Type Encounter Description Reason Provider Source Apr 11, 2024 06:24 AM Outpatient Encounter PROSTHETICS/ORTHOTIC STACIA IYER Encounter Template Text not used by [place] [...] - MEDICINE [facility] [place] [facility] May 30, 2024 09:30 AM AMBULATORY - MEDICINE [facility] [place] [facility] Jun 01, 2024 10:00 AM AMBULATORY - MEDICINE [facility] [place] [facility] Jun 01, 2024 11:30 AM AMBULATORY - MEDICINE [facility] [place] [facility] Jun 28, 2024 11:30 AM AMBULATORY - MEDICINE [facility] [place] [facility] Jul 08, 2024 10:30 AM AMBULATORY - MEDICINE [facility] [place] [facility] Jul 13, 2024 09:30 AM AMBULATORY [place]ICINE [place] [facility] Aug 12, 2024 09:30 AM AMBULATORY [place]INE [place] [facility] Aug 22, 2024 09:00 AM AMBULATORY [place]ICINE [place] [facility] Sep 21, 2024 09:00 AM AMBULATORY [place]INE [place] [facility] [facility] Sep 21, 2024 10:00 AM AMBULATORY - [place]ICINE [place] [facility] [facility] [facility] Social History: Smoking Status (Most current) [...] took place. Date/Time Current Smoking Status Comment [facility] Nov 27, 2023 11:00 AM VA-TOBACCO FORMER USER [place] [facility] Tobacco Use History This section includes a history of the smoking, or tobacco-related health factors, that were collected on or before the date of the Encounter. The data comes from the [place] facility where the Encounter took place. Date/Time Smoking Status/Tobac co Use Comment Facility Nov 27, 2023 11:00 AM [place]-TOBACCO QUIT 15 YRS OR MORE [facility] [place] [facility] Dec 02, 2022 08:00 AM VA-TOBACCO FORMER USER [facility] Dec 02, 2022 08:00 AM VA-TOBACCO QUIT 15 YRS OR MORE [facility] [place] [facility] Nov 05, 2021 10:30 AM VA-TOBACCO FORMER USER [facility] Nov 05, 2021 10:30 AM VA-TOBACCO QUIT 1 TO < 5 YRS [facility] Sep 14, 2020 02:00 PM VA-TOBACCO FORMER USER [facility] Sep 14, 2020 02:00 PM VA-TOBACCO QUIT 5 TO < 15 YRS [facility] Jan 22, 2018 03:40 PM QUIT TOBACCO USE > 7 YEARS AGO [facility] [place] [facility] Jun 04, 2016 02:01 PM CURRENT SMOKER been smoking pass 20 [facility] Jun 04, 2016 02:01 PM V1-PT DECLINES REF TO TOBACCO CESS PRGM [facility] [place] [facility] Jun 04, 2016 02:01 PM V1-PT THINKING ABOUT QUIT TOBACCO USE [facility] Jul 18, 2014 03:31 PM V1-PT DECLINES REF TO TOBACCO CESS PRGM [facility] [place] [facility] Jul 18, 2014 03:31 PM V1-PT DECLINES TOBACCO CESSATION MEDS [facility] Jul 18, 2014 03:31 PM V1-PT NOT INTERESTED IN QUIT TOBACCO USE [facility] [place] [facility] Jan 09, 2014 10:43 AM CURRENT SMOKER pt smokes 1 pk of cigarettes per day. [facility] Jan 09, 2014 10:43 AM V1-PT THINKING ABOUT QUIT TOBACCO [facility] Aug 28, 2003 10:47 AM CURRENT SMOKER one pack q 6 days - he has cut down from 3 PPD. He is in the process of quitting [facility] Radiology Reports: +/- 30 days [...] AM LDCT LUNG CANCER SCREENING: CHAYA PEDRO [id number] -[id number] M Exm Date: MAR 28, 2024@09:45 Req Phys: ELIZABET ROBINS Pat Loc: ZZCWM/NO/LCS ADMIN (Req'g Loc) Img Loc: NHM/CT Service: Unknown [place] [facility] [facility] , (Case 16 COMPLETE) LDCT LUNG CANCER SCREENING (CT Detailed) CPT:85288 Reason for Study: LUNG CANCER SCREENING Clinical History: QUIT SMOKING IN 2012 BASELINE LCS LDCT 03/30/2023: LUNG RADS 1 no new or concerning pulmonary mass or nodules. Plan for repeat in 12 months. Report Status: Verified Date Reported: MAR 28, 2024 Date Verified: MAR 28, 2024 Wax Pumper E-Sig:/ES/RAYMOND LEAL JR Report: Study: Lung cancer [...] reviewed. Secondary computer-aided detection with post-processing from [employer] is used. The lack of intravenous contrast [...] Primary Interpreting Staff: RAYMOND LEAL JR, Radiologist (Wax Pumper) /RAYMOND SHELTON JR [place] [facility]
--- OUTSIDE RECORDS SUMMARY | 2024-11-01 08:01 | XMS_ITS | Encounter Summary ---
Author Name [facility] [place] Address [address] [place] [address] Care Team Providers Care Slag Worker Name Role Phone ELIZABET ROBINS Primary [...] [facility] CE ORGANIZ [facility] AC Apr 18, 2018 [id number] [phone] WILLIS,MAR JUDITH SPOUSE AN[place] OF [place] ([place]ARD) [facility] CE ORGANIZ BRENDA [facility] Apr 18, 2018 [id number] [phone] WILLIS,MAR JUDITH SPOUSE BCBS [facility] CE ORGANIZ [facility] SHARE ACTIV E Apr 18, 2018 [id number] [phone] WILLIS,MAR JUDITH SPOUSE BCBS OF [facility] CE ORGANIZ [facility] Apr 18, 2018 [id number] WILLIS,MAR JUDITH PATIENT BCBS OF [facility] CE ORGANIZ BRENDA MCCABE [facility] Apr 18, 2018 [id number] WILLIS,MAR JUDITH SPOUSE [place] OF [place] PREFERRED PROVIDER ORGANIZAT ION (PPO) BRENDA MCCABE [facility] AC Apr 18, 2018 [id number] [phone] WILLIS,MAR JUDITH SPOUSE BCBS OF [facility] CE ORGANIZ BRENDA MCCABE [facility] ACT Apr 18, 2018 [id number] WILLIS,MAR JUDITH SPOUSE BCBS OF [facility] CE ORGANIZ BRENDA MCCABE [facility] AC Apr 18, 2018 [id number] [phone] WILLIS,MAR JUDITH SPOUSE [place] PRESCRIPT ION RX22M B Oct 19, 2022 RX22MB [id number] [phone] WILLIS,MAR JUDITH SPOUSE [place] PRESCRIPT ION RX22M A Oct 19, 2022 RX22MA [id number] WILLIS,LAVELLE AEL PATIENT [place] PRESCRIPT ION RX22M B Oct 19, 2022 RX22MB [id number] WILLIS,LAVELLE AEL PATIENT [place] PRESCRIPT [place] Oct 19, 2022 RX22MA [phone] WILLIS, SPOUSE [place] PRESCRIPT ION RX Oct 19, 2022 RX22MB [id number] WILLIS,MAR JUDITH SPOUSE [place] PRESCRIPT ION BRENDA MCCABE [facility] AC Oct 19, 2022 RX22MB [id number] WILLIS,LAVELLE AEL SPOUSE [place] ([id number]) PRESCRIPT I[place] Oct 19, 2022 RX22MB [id number] WILLIS,MAR JUDITH SPOUSE [place] BCBS ([facility] CE ORGANIZ BRENDA MCCABE [facility] AC Apr 18, 2018 [phone] WILLISEDILBERTO SPOUSE [employer] PRESCRIPT I[place] 2018 L4TA [id number] WILLISEDILBERTO SPOUSE [employer] ([id number]) PRESCRIPT ION Apr 18, 2018 L4TA [id number] WILLIS,EDILBERTO WONG SPOUSE [employer] ([id number]) PRESCRIPT ION L4TA* Apr 18, 2020 L4TA [id number] WILLISEDILBERTOA SPOUSE [employer] ([id number]) PRESCRIPT ION L4TA Apr 18, 2018 L4TA [id number] WILLISEDILBERTO SPOUSE [employer] ([id number]) PRESCRIPT ION Apr 18, 2018 L4TA [id number] WILLISEDILBERTO SPOUSE [employer] ([id number]) PRESCRIPT ION L4TA* Apr 18, 2018 L4TA [id number] WILLISEDILBERTO Lynn SPOUSE [employer] ([id number]) PRESCRIPT ION Apr 18, 2018 L4TA [id number] EDILBERTO PEDRO SPOUSE [employer]-MINOR BROGATION PRESCRIPT ION [place] Apr 18, 2020 L4TA [id number] WILLISEDILBERTO SPOUSE [facility] CE ORGANIZAT ION W/OUT OF NETWORK BENEFITS [facility] RSD ACT Apr 18, 2018 [id number] [phone] EDILBERTO PEDRO SPOUSE [place] BCBS [facility] (BLUECAR) [facility] CE ORGANIZAT ION [facility]ISTEN COUNTS INCLUDE 234 BEDS AT [facility] AC Apr 18, 2018 [id number] [phone] EDILBERTO PEDRO SPOUSE MEDICARE (WNR) MEDICARE (M) PART A Mar 19, 1990 PART A [id number] WILLISLAVELLE AEL PATIENT MEDICARE (WNR) MEDICARE (M) PART A Mar 19, 1990 PART A [id number] [phone] WILLIS,LAVELLE AEL PATIENT MEDICARE (WNR) MEDICARE (M) PART A Mar 19, 1990 PART A [id number] WILLIS,LAVELLE AEL PATIENT MEDICARE (WNR) MEDICARE (M) PART A Mar 19, 1990 PART A [id number] WILLIS,LAVELLE AEL PATIENT MEDICARE (WNR) MEDICARE (M) PART A Mar 19, 1990 PART A [id number] WILLIS,LAVELLE AEL PATIENT MEDICARE (WNR) MEDICARE (M) PART A Mar 19, 1990 PART A [id number] [phone] WILLIS,LAVELLE AEL PATIENT MEDICARE (WNR) MEDICARE (M) PART A Mar 19, 1990 PART A [id number] [phone] WILLIS,LAVELLE AEL PATIENT MEDICARE (WNR) MEDICARE (M) PART A Mar 19, 1990 PART A [id number] WILLIS,LAVELLE AEL PATIENT MEDICARE (WNR) MEDICARE (M) PART A Mar 19, 1990 PART A [id number] WILLIS,LAVELLE AEL PATIENT MEDICARE (WNR) MEDICARE (M) PART A Mar 19, 1990 PART A [id number] [phone] WILLIS,LAVELLE AEL PATIENT MEDICARE (WNR) MEDICARE (M) PART A Mar 19, 1990 PART A [id number] WILLIS,LAVELLE AEL PATIENT Selected Encounter This section includes the information on [place] at [place] for the Encounter. Date/Time Encounter Type Encounter Description Reason Pro vider Source May 19, 2024 12:42 PM Outpatient Encounter COMMUNITY CARE CONSULT IHE [...] MEDICINE [place] [facility] [facility] May 30, 2024 09:30 AM AM[place] [facility] Jun 01, 2024 10:00 AM AM[place]ULATORY [place] [facility] Jun 01, 2024 11:30 AM [facility] [place] [facility] [place] [facility] Jun 28, 2024 11:30 AM [facility] [place] [facility] [place] [facility] Jul 08, 2024 10:30 AM AMBULATORY [place]IC[place] [facility] [facility] Jul 13, 2024 09:30 AM [place]ATORY [place] [facility] Aug 12, 2024 09:30 AM AM[place]ULATORY [place]IC[place] [facility] Aug 22, 2024 09:00 AM AM[place]ATORY [place] [facility] Sep 21, 2024 09:00 AM AMBULATORY - [place]ICINE [place] [facility] [place] [facility] Sep 21, 2024 10:00 AM AM[place]ULATORY [place]IC[place] [facility] Lab Results: +/- 30 days [...] Range Comment Jun 01, 2024 12:25 PM [place] [facility] [facility] MICROALBUMIN CREATININE RATIO PANEL Specimen Type: URINE No comment entered. Ordering Provider: LINDA PERSON Report Released Date/Time: Jun 01, 2024 11:53 AM Reporting Lab: [place] [facility] [facility] [address] [facility] [address] Performing Lab: [facility] [address] MICROALBUMIN/C REATININE RATIO 10.8 mg/g 0-29.9 MICROALBUMIN,Q UANTITATIVE 1.1 mg/dL RR UNAVAIL CREATININE URINE 101.63 mg/dL Jun 01, 2024 10:38 AM [facility] HEMOGLOBIN A1C PANEL Specimen Type: BLOOD [...] May 30, 2024 10:29 AM Reporting Lab: [address] [address] Performing Lab: [address] [address] HEMOGLOBIN A1C 5.8 H 4.0-5.6 Jun 01, 2024 10:38 AM [facility] BASIC METABOLIC PANEL (non-fasting) Specimen Type: SERUM No comment entered. Ordering Provider: LINDA PERSON Report Released Date/Time: May 30, 2024 10:29 AM Reporting Lab: [address] [address] Performing Lab: [address] [address] UREA NITROGEN 13 mg/dL 7-25 GLUCOSE 115 mg/dL H 65-100 SODIUM 140 mmol/L 135-145 POTASSIUM 4.3 mmol/L 3.5-5.0 CHLORIDE 107 mmol/L 100-110 CO2 21 meq/L 20-30 CREATININE, Serum 0.84 mg/dL 0.50-1.40 eGFR(CKD-EPI 2020) >90 mL/min >60 Jun 01, 2024 10:38 AM [facility] LIPID PANEL, NON FASTING Specimen Type: SERUM No comment entered. Ordering Provider: LINDA PERSON Report Released Date/Time: Jun 01, 2024 10:12 AM Reporting Lab: [facility] [address] [facility] [address] Performing Lab: [place] [facility] [place] [facility] [address] [facility] [address] CHOLESTEROL 126 mg/dL TRIGLYCERIDE 114 mg/dL 0-150 [...] took place. Date/Time Current Smoking Status Comment [facility] Nov 27, 2023 11:00 AM VA-TOBACCO FORMER USER [place] [facility] [facility] Tobacco Use History This section includes a history of the smoking, or tobacco-related health factors, that were collected on or before the date of the Encounter. The data comes from the [place] facility where the Encounter took place. Date/Time Smoking Status/Tobac co Use Comment Facility Nov 27, 2023 11:00 AM VA-TOBACCO QUIT 15 YRS OR MORE [place] [facility] [place] [facility] Dec 02, 2022 08:00 AM VA-TOBACCO FORMER USER [place] [facility] [facility] Dec 02, 2022 08:00 AM VA-TOBACCO QUIT 15 YRS OR MORE [place] [facility] [place] [facility] Nov 05, 2021 10:30 AM VA-TOBACCO FORMER USER [place] [facility] [place] [facility] Nov 05, 2021 10:30 AM VA-TOBACCO QUIT 1 TO < 5 YRS [place] [facility] [place] [facility] Sep 14, 2020 02:00 PM VA-TOBACCO FORMER USER [place] [facility] [facility] Sep 14, 2020 02:00 PM VA-TOBACCO QUIT 5 TO < 15 YRS [place] [facility] [place] [facility] Jan 22, 2018 03:40 PM QUIT TOBACCO USE > 7 YEARS AGO [place] [facility] [place] [facility] Jun 04, 2016 02:01 PM CURRENT SMOKER been smoking pass 20 yrs [place] [facility] [facility] Jun 04, 2016 02:01 PM V1-PT DECLINES REF TO TOBACCO CESS PRGM [facility] Jun 04, 2016 02:01 PM V1-PT THINKING ABOUT QUIT TOBACCO USE [facility] Jul 18, 2014 03:31 PM V1-PT DECLINES REF TO TOBACCO CESS PRGM [facility] Jul 18, 2014 03:31 PM V1-PT DECLINES TOBACCO CESSATION MEDS [facility] Jul 18, 2014 03:31 PM V1-PT NOT INTERESTED IN QUIT TOBACCO USE [facility] Jan 09, 2014 10:43 AM CURRENT SMOKER pt smokes 1 pk of cigarettes per day. [facility] Jan 09, 2014 10:43 AM V1-PT THINKING ABOUT QUIT TOBACCO USE [facility] Aug 28, 2003 10:47 AM CURRENT SMOKER one pack q 6 days - he has cut down from 3 PPD. He is in the process of quitting [facility] Encounter Notes: All associated encounter notes This section contains the clinical notes associated to the Encounter. Date/Time Encounter Note(s) Provider Source May 19, 2024 12:42 PM NONVA NOTE: [facility] TITLE: [facility] PRESENTING CARE COORD PLAN STANDARD TITLE: NONVA NOTE DATE OF NOTE: MAY 19, 2024@12:42 ENTRY DATE: MAY 19, 2024@12:43:02 AUTHOR: SONNY BOGGS EXP COSIGNER: URGENCY: STATUS: COMPLETED Emergency Notification Intake Date Presenting to the Facility: Apr Method of Contact: Notified from [facility] worklist Notification ID: [id number] [facility] Referral #: [id number] [facility] Hospital Name: Hospital: [facility] Address: City: [place] State: [place] Zip Code: Phone : [facility] Facility Point of Contact: Name: Marina Phone: Chief complaint: FACIAL NUMBNESS Primary Diagnosis: Disposition Discharged Date of discharge: Apr Discharge to Comment: ER Only /gaetano/ SONNY RITCHIE Signed: 05/19/2024 12:45 Receipt Acknowledged By: 05/19/2024 15:25 /es/ CIERRA GREGORY Nurse Practitioner 05/19/2024 13:25 /es/ MARYJO GARCIA REGISTERED NURSE for DEBBIE Vinita GORMAN 05/19/2024 14:51 /es/ Marcia Maurer, grinder and honer operator automatic Staff Nurse 05/20/2024 08:19 /es/ MARYJO SWENSON Registered Nurse ALBANYSONNY KAREN TOLONO
--- OUTSIDE RECORDS SUMMARY | 2024-11-01 08:01 | XMS_ITS ---
Author Name [facility] [place] [facility] [place] Address [address] [place] [address] Care Team Providers Care Field Pipelines Supervisor Name Role Phone ELIZABET ROBINS Primary [...] Patient's Relationship to Policy Paul [facility] CE ORGANIZ [facility] AC Apr 18, 2018 [id number] [phone] WILLIS,MAR JUDITH SPOUSE ANTHEM [place] OF [place] ([place]ARD) [facility] CE ORGANIZ TY[facility]IA [facility] Apr 18, 2018 [id number] [phone] WILLIS,MAR JUDITH SPOUSE BCBS [facility] CE ORGANIZ [facility] SHARE ACTIV E Apr 18, 2018 [id number] WILLIS,MAR JUDITH SPOUSE BCBS OF [facility] CE ORGANIZ [facility] Apr 18, 2018 [id number] WILLIS,MAR JUDITH PATIENT BCBS OF [facility] CE ORGANIZ BRENDA MCCABE [facility] Apr 18, 2018 [id number] WILLIS,MAR JUDITH SPOUSE [place] PREFERRED PROVIDER ORGANIZAT ION (PPO) BRENDA MCCABE [facility] AC Apr 18, 2018 [id number] WILLIS,MAR JUDITH SPOUSE BCBS OF [facility] CE ORGANIZ BRENDA MCCABE [facility] ACT Apr 18, 2018 [id number] WILLIS,MAR JUDITH SPOUSE BCBS OF [facility] CE ORGANIZ BRENDA MCCABE [facility] AC Apr 18, 2018 [id number] [phone] WILLIS,MAR JUDITH SPOUSE [place] PRESCRIPT ION RX22M B Oct 19, 2022 RX22MB [id number] [phone] WILLIS,MAR JUDITH SPOUSE [place] PRESCRIPT ION RX22M A Oct 19, 2022 RX22MA [id number] WILLIS,LAVELLE AEL PATIENT [place] PRESCRIPT ION RX22M B Oct 19, 2022 RX22MB [id number] WILLIS,LAVELLE AEL PATIENT [place] PRESCRIPT ION BRENDA MCCABE [facility] AC Oct 19, 2022 RX22MB [id number] [phone] WILLIS,LAVELLE AEL SPOUSE [place] PRESCRIPT ION RX Oct 19, 2022 RX22MB [id number] WILLIS,MAR JUDITH SPOUSE [place] PRESCRIPT ION [place] Oct 19, 2022 RX22MA [phone] WILLIS, SPOUSE [place] ([id number]) PRESCRIPT ION BCBS OF [place] Oct 19, 2022 RX22MB [id number] [phone] WILLIS,MAR JUDITH SPOUSE [place] BCBS ([facility] CE ORGANIZ BRENDA MCCABE [facility] AC Apr 18, 2018 [id number] WILLIS,EDILBERTO SOTELOZA SPOUSE [employer] PRESCRIPT I[place] 2018 L4TA [id number] WILLIS,EDILBERTO WONG SPOUSE [employer] ([id number]) PRESCRIPT ION Apr 18, 2018 L4TA [id number] WILLIS,EDILBERTO WONG SPOUSE [employer] ([id number]) PRESCRIPT ION L4TA* Apr 18, 2020 L4TA [id number] WILLISEDILBERTO SPOUSE [employer] ([id number]) PRESCRIPT ION L4TA Apr 18, 2018 L4TA [id number] WILLIS,EDILBERTO WONG SPOUSE [employer] ([id number]) PRESCRIPT ION L4TA* Apr 18, 2018 L4TA [id number] WILLIS,EDILBERTO BROOKS SPOUSE [employer] ([id number]) PRESCRIPT ION Apr 18, 2018 L4TA [id number] 32 WILLISEDILBERTO SPOUSE [employer] ([id number]) PRESCRIPT ION Apr 18, 2018 L4TA [id number] WILLISEDILBERTO SPOUSE EXPRESS [employer]-MINOR BROGATION PRESCRIPT ION [place] Apr 18, 2020 L4TA [id number] WILLISEDILBERTO SPOUSE [facility] ([facility]) [facility] CE ORGANIZAT ION W/OUT OF NETWORK BENEFITS [facility] ACT Apr 18, 2018 [id number] EDILBERTO PEDRO SPOUSE [place] BCBS [facility] (BLUECAR) [facility] CE ORGANIZAT ION [facility] Apr 18, 2018 [id number] EDILBERTO PEDRO SPOUSE MEDICARE (WNR) MEDICARE (M) PART A Mar 19, 1990 PART A [id number] WILLISLAVELLE AEL PATIENT MEDICARE (WNR) MEDICARE (M) PART A Mar 19, 1990 PART A [id number] WILLIS,LAVELLE AEL PATIENT MEDICARE (WNR) MEDICARE (M) PART A Mar 19, 1990 PART A [id number] WILLIS,LAVELLE AEL PATIENT MEDICARE (WNR) MEDICARE (M) PART A Mar 19, 1990 PART A [id number] [phone] WILLIS,LAVELLE AEL PATIENT MEDICARE (WNR) MEDICARE (M) PART A Mar 19, 1990 PART A [id number] [phone] WILLIS,LAVELLE AEL PATIENT MEDICARE (WNR) MEDICARE (M) PART A Mar 19, 1990 PART A [id number] WILLIS,LAVELLE AEL PATIENT MEDICARE (WNR) MEDICARE (M) PART A Mar 19, 1990 PART A [id number] WILLIS,LAVELLE AEL PATIENT MEDICARE (WNR) MEDICARE (M) PART A Mar 19, 1990 PART A [id number] [phone] WILLIS,LAVELLE AEL PATIENT MEDICARE (WNR) MEDICARE (M) PART A Mar 19, 1990 PART A [id number] WILLIS,LAVELLE AEL PATIENT MEDICARE (WNR) MEDICARE (M) PART A Mar 19, 1990 PART A [id number] [phone] WILLIS,LAVELLE AEL PATIENT MEDICARE (WNR) MEDICARE (M) PART A Mar 19, 1990 PART A [id number] [phone] WILLIS,LAVELLE AEL PATIENT Selected Encounter This section includes the information on record at [place] for the Encounter. Date/Time Encounter Type Encounter Description Reason Pro vider Source May 30, 2024 09:30 AM Outpatient Encounter CLINICAL PHARMACY IHE Encounter Template Text not used by [...] 20 appointments. The data comes from all [facility]. Appointment Date/Time Appointment Type Appointme nt Facility Name Jun 01, 2024 10:00 AM AM[place]UL[place]ORY [place] [facility] Jun 01, 2024 11:30 AM [place] [facility] Jun 28, 2024 11:30 AM [place] [facility] Jul 08, 2024 10:30 AM [place] [facility] Jul 13, 2024 09:30 AM [place] [facility] Aug 12, 2024 09:30 AM [place] [facility] Aug 22, 2024 09:00 AM AM[place] [facility] Sep 21, 2024 09:00 AM [place] [facility] Sep 21, 2024 10:00 AM [place] [facility] Nov 28, 2024 09:30 AM [place] [facility] Active, Pending, and Scheduled Orders This section includes a listing of several types of active, pending, and scheduled orders, including clinic medications orders, diagnostic test orders, procedure orders and consult orders; where the start date of the order is 45 days before the date of the Encounter or 45 days after the date of theEncounter. The data comes from all [facility]. Test Date/Time Test Type Test Details Facility Name Jul 13, 2024 09:58 AM Consult Order PODIATRY/N HM OUTPT Cons Systems Integration Advisor's Choice [place] [facility] Lab Results: +/- 30 days [...] Range Comment Jun 01, 2024 12:25 PM [place] [facility] [place] [facility] MICROALBUMIN CREATININE RATIO PANEL Specimen Type: URINE No comment entered. Ordering Provider: LINDA PERSON Report Released Date/Time: Jun 01, 2024 11:53 AM Reporting Lab: [facility] [address] [facility] [address] Performing Lab: [address] [address] MICROALBUMIN/C REATININE RATIO 10.8 mg/g 0-29.9 MICROALBUMIN,Q UANTITATIVE 1.1 mg/dL RR UNAVAIL CREATININE URINE 101.63 mg/dL Jun 01, 2024 10:38 AM [facility] HEMOGLOBIN A1C PANEL Specimen Type: BLOOD [...] May 30, 2024 10:29 AM Reporting Lab: [address] [address] Performing Lab: [address] [address] HEMOGLOBIN A1C 5.8 H 4.0-5.6 Jun 01, 2024 10:38 AM [facility] BASIC METABOLIC PANEL (non-fasting) Specimen Type: SERUM No comment entered. Ordering Provider: LINDA PERSON Report Released Date/Time: May 30, 2024 10:29 AM Reporting Lab: [address] [address] Performing Lab: [address] [address] UREA NITROGEN 13 mg/dL 7-25 GLUCOSE 115 mg/dL H 65-100 SODIUM 140 mmol/L 135-145 POTASSIUM 4.3 mmol/L 3.5-5.0 CHLORIDE 107 mmol/L 100-110 CO2 21 meq/L 20-30 CREATININE, Serum 0.84 mg/dL 0.50-1.40 eGFR(CKD-EPI 2020) >90 mL/min >60 Jun 01, 2024 10:38 AM [facility] [place] [facility] LIPID PANEL, NON FASTING Specimen Type: SERUM No comment entered. Ordering Provider: LINDA PERSON Report Released Date/Time: Jun 01, 2024 10:12 AM Reporting Lab: [facility] [address] [facility] [address] Performing Lab: [facility] [address] [facility] [address] CHOLESTEROL 126 mg/dL TRIGLYCERIDE 114 mg/dL 0-150 [...] place. Date/Time Current Smoking Status Comment [facility] Nov 27, 2023 11:00 AM VA-TOBACCO [facility] Tobacco Use History This section includes a history of the smoking, or tobacco-related health factors, that were collected on or before the date of the Encounter. The data comes from the [place] facility where the Encounter took place. Date/Time Smoking Status/Tobac co Use Comment Facility Nov 27, 2023 11:00 AM VA-TOBACCO QUIT 15 YRS OR MORE [place] [facility] [facility] Dec 02, 2022 08:00 AM VA-TOBACCO FORMER USER [place] [facility] [facility] Dec 02, 2022 08:00 AM VA-TOBACCO QUIT 15 YRS OR MORE [place] [facility] [facility] Nov 05, 2021 10:30 AM VA-TOBACCO FORMER USER [place] [facility] [facility] Nov 05, 2021 10:30 AM VA-TOBACCO QUIT 1 TO < 5 YRS [place] [facility] [facility] Sep 14, 2020 02:00 PM VA-TOBACCO FORMER USER [facility] Sep 14, 2020 02:00 PM VA-TOBACCO QUIT 5 TO < 15 YRS [facility] Jan 22, 2018 03:40 PM QUIT TOBACCO USE > 7 YEARS AGO [facility] Jun 04, 2016 02:01 PM CURRENT SMOKER been smoking pass 20 yrs [facility] Jun 04, 2016 02:01 PM V1-PT DECLINES REF TO TOBACCO CESS PRGM [facility] Jun 04, 2016 02:01 PM V1-PT THINKING ABOUT QUIT TOBACCO USE [facility] Jul 18, 2014 03:31 PM V1-PT DECLINES REF TO TOBACCO CESS PRGM [facility] Jul 18, 2014 03:31 PM V1-PT DECLINES TOBACCO CESSATION MEDS [facility] Jul 18, 2014 03:31 PM V1-PT NOT INTERESTED IN QUIT TOBACCO USE [facility] Jan 09, 2014 10:43 AM CURRENT SMOKER pt smokes 1 pk of cigarettes per day. [facility] Jan 09, 2014 10:43 AM V1-PT THINKING ABOUT QUIT TOBACCO USE [facility] Aug 28, 2003 10:47 AM CURRENT SMOKER one pack q 6 days - he has cut down from 3 PPD. He is in the process of quitting [facility] Encounter Notes: All associated encounter notes This section contains the clinical notes associated to the Encounter. Date/Time Encounter Note(s) Provider Source May 30, 2024 10:25 AM CLERICAL NOTE: LOCAL TITLE: APPOINTMENT NO SHOW STANDARD TITLE: CLERICAL NOTE DATE OF NOTE: MAY 30, 2024@10:25 ENTRY DATE: MAY 30, 2024@10:25:58 AUTHOR: LINDA PERSON COSIGNER: URGENCY: STATUS: COMPLETED Patient Name: CHAYA PEDRO Patient SSN: [id number] Date and time of Appointment No show : 05/30/24 09:30 PATIENT PHONE - PHONE NUMBER [CELLULAR] - NONE FOUND Patient's medical record was reviewed. Follow-up actions were determined and initiated: Please check/complete as applies: [X]Telephoned Directly [ ]Re-scheduled for next available appt [ ]Sent a N0-show letter ( must call for appointment) [ ]Other (Emergent/Overbook, etc.): Additional Comments: Please no show the following visit: CWM/NO/PHARM PACT 3 05/30/24 @0930 Please rechedule for CWM/NO/PHARM PACT 3 06/01/24 @1000 X 30 MINS Future Clinic Visits 06/01/2024 11:30 CWM/NO/PACT 5 09/21/2024 10:00 CWM/NO/OPTOMETRY/JAHAIRA /gaetano/ LIDNA PERSON PHARMD,[facility] CLINICAL PHARMACY PRACTITIONER Signed: 05/30/2024 10:29 Receipt Acknowledged By: 05/30/2024 10:31 /gaetano/ THANH LUCAS Advanced Switchboard Manager LINDA PERSON [facility]
--- OUTSIDE RECORDS SUMMARY | 2024-11-01 08:01 | XMS_ITS ---
Author Name [facility] [facility] [place] [facility] [place] Address [address] [place] [address] Care Team Providers Care Ribbon Lapper Tender Name Role Phone ELIZABET ROBINS Primary Care [...] Patient's Relationship to Policy Paul [facility] CE ORGANIZ [facility] AC Apr 18, 2018 [id number] WILLIS,MAR JUDITH SPOUSE AN[place] ([place]ARD) [facility] CE ORGANIZ [facility] Apr 18, 2018 [id number] [phone] WILLIS,MAR JUDITH SPOUSE BCBS [facility] CE ORGANIZ [facility] SHARE ACTIV E Apr 18, 2018 [phone] WILLIS,MAR JUDITH SPOUSE BCBS OF [facility] CE ORGANIZ [facility] Apr 18, 2018 [id number] WILLIS,MAR JUDITH PATIENT BCBS OF [facility] CE ORGANIZ [facility] Apr 18, 2018 [id number] WILLIS,MAR JUDITH SPOUSE BC[place] OF [place] PREFERRED PROVIDER ORGANIZAT ION (PPO) [facility] AC Apr 18, 2018 [id number] [phone] WILLIS,MAR JUDITH SPOUSE BCBS OF [facility] CE ORGANIZ [facility] ACT Apr 18, 2018 [id number] WILLIS,MAR JUDITH SPOUSE BCBS OF [facility] CE ORGANIZ [facility]ENDA [facility] AC Apr 18, 2018 [id number] [phone] WILLIS,MAR JUDITH SPOUSE [place] PRESCRIPT ION RX22M A Oct 19, 2022 RX22MA [id number] WILLIS,LAVELLE AEL PATIENT [place] PRESCRIPT ION RX22M B Oct 19, 2022 [id number] WILLIS,LAVELLE AEL PATIENT [place] PRESCRIPT ION [facility] AC Oct 19, 2022 [id number] [phone] WILLIS,LAVELLE AEL SPOUSE [place] PRESCRIPT [place] Oct 19, 2022 RX22MA [id number] [phone] WILLIS, SPOUSE [place] PRESCRIPT ION RX Oct 19, 2022 [phone] WILLIS,MAR JUDITH SPOUSE [place] PRESCRIPT ION RX22M B Oct 19, 2022 RX22MB [phone] [phone] WILLIS,MAR JUDITH SPOUSE [place] ([id number]) PRESCRIPT [place] Oct 19, 2022 [id number] [phone] WILLIS,MAR JUDITH SPOUSE [place] [facility] CE ORGANIZ [facility]DA [facility]CC[facility] AC Apr 18, 2018 [id number] WILLIS,EDILBERTO SOTELOZA SPOUSE [employer] PRESCRIPT ION [place] 2018 L4TA [id number] WILLIS,EDILBERTO SOTELOZA SPOUSE [employer] ([id number]) PRESCRIPT ION Apr 18, 2018 L4TA [id number] WILLIS,EDILBERTO SOTELOZA SPOUSE [employer] ([id number]) PRESCRIPT ION L4TA* Apr 18, 2020 L4TA [id number] WILLIS,EDILBERTO PALAFOXA SPOUSE [employer] ([id number]) PRESCRIPT ION L4TA* Apr 18, 2018 L4TA [id number] WILLIS,EDILBERTO PALAFOXA SPOUSE [employer] ([id number]) PRESCRIPT ION Apr 18, 2018 L4TA [id number] WILLIS,EDILBERTO WONG SPOUSE [employer] ([id number]) PRESCRIPT ION Apr 18, 2018 L4TA [id number] WILLISEDILBERTO SPOUSE [employer] ([id number]) PRESCRIPT ION L4TA Apr 18, 2018 L4TA [id number] WILLIS,EDILBERTO WONG SPOUSE [employer]-MINOR BROGATION PRESCRIPT ION [place] Apr 18, 2020 L4TA [id number] WILLIS,EDILBERTO WONG SPOUSE [facility] CE ORGANIZAT ION W/OUT OF NETWORK BENEFITS [facility] ACT Apr 18, 2018 [id number] WILLISEDILBERTO SPOUSE [place] BCBS [place] (BLUECARD) [facility] CE ORGANIZAT ION [facility] AC Apr 18, 2018 [id number] [phone] EDILBERTO PEDRO SPOUSE MEDICARE (WNR) MEDICARE (M) PART A Mar 19, 1990 PART A [id number] WILLISLAVELLE AEL PATIENT MEDICARE (WNR) MEDICARE (M) PART A Mar 19, 1990 PART A [id number] WILLIS,LAVELLE AEL PATIENT MEDICARE (WNR) MEDICARE (M) PART A Mar 19, 1990 PART A [id number] WILLIS,LAVELLE AEL PATIENT MEDICARE (WNR) MEDICARE (M) PART A Mar 19, 1990 PART A [id number] WILLIS,LAVELLE AEL PATIENT MEDICARE (WNR) MEDICARE (M) PART A Mar 19, 1990 PART A [id number] [phone] WILLIS,LAVELLE AEL PATIENT MEDICARE (WNR) MEDICARE (M) PART A Mar 19, 1990 PART A [id number] WILLIS,LAVELLE AEL PATIENT MEDICARE (WNR) MEDICARE (M) PART A Mar 19, 1990 PART A [id number] WILLIS,LAVELLE AEL PATIENT MEDICARE (WNR) MEDICARE (M) PART A Mar 19, 1990 PART A [id number] WILLIS,LAVELLE AEL PATIENT MEDICARE (WNR) MEDICARE (M) PART A Mar 19, 1990 PART A [id number] WILLIS,LAVELLE AEL PATIENT MEDICARE (WNR) MEDICARE (M) PART A Mar 19, 1990 PART A [id number] WILLIS,LAVELLE AEL PATIENT MEDICARE (WNR) MEDICARE (M) PART A Mar 19, 1990 PART A [id number] [phone] WILLIS,LAVELLE AEL PATIENT Selected Encounter This section includes the information on record at [place] for the Encounter. Date/Time Encounter Type Encounter Description Reason Pro vider Source May 02, 2024 04:43 PM Outpatient Encounter COMMUNITY CARE CONSULT IHE [...] - MEDICINE [facility] May 30, 2024 09:30 AM AMBULATORY - MEDIC[facility] Jun 01, 2024 10:00 AM AMBULATORY - [facility]IC[facility] Jun 01, 2024 11:30 AM [facility] Jun 28, 2024 11:30 AM [facility]AT[facility] Jul 08, 2024 10:30 AM AMBULATORY - MEDICINE [facility] Jul 13, 2024 09:30 AM AMBULATORY - MEDICINE [facility] Aug 12, 2024 09:30 AM AMBULATORY - MEDICINE [facility] Aug 22, 2024 09:00 AM AMBULATORY - MEDICINE [facility] Sep 21, 2024 09:00 AM AMBULATORY - MEDICINE [facility] Sep 21, 2024 10:00 AM AMBULATORY - MEDICINE [facility] Lab Results: +/- [...] 2024 12:25 PM [place] [facility] MICROALBUMIN CREATININE RATIO PANEL Specimen Type: URINE No comment entered. Ordering Provider: LINDA PERSON Report Released Date/Time: Jun 01, 2024 11:53 AM Reporting Lab: [place] [facility] [address] [address] Performing Lab: [facility] [address] MICROALBUMIN/C REATININE RATIO 10.8 mg/g 0-29.9 MICROALBUMIN,Q UANTITATIVE 1.1 mg/dL RR UNAVAIL CREATININE URINE 101.63 mg/dL Jun 01, 2024 10:38 AM [facility] HEMOGLOBIN A1C PANEL Specimen Type: [...] May 30, 2024 10:29 AM Reporting Lab: [address] [address] Performing Lab: [address] [address] HEMOGLOBIN A1C 5.8 H 4.0-5.6 Jun 01, 2024 10:38 AM [facility] BASIC METABOLIC PANEL (non-fasting) Specimen Type: SERUM No comment entered. Ordering Provider: LINDA PERSON Report Released Date/Time: May 30, 2024 10:29 AM Reporting Lab: [address] [address] Performing Lab: [address] [address] UREA NITROGEN 13 mg/dL 7-25 GLUCOSE 115 mg/dL H 65-100 SODIUM 140 mmol/L 135-145 POTASSIUM 4.3 mmol/L 3.5-5.0 CHLORIDE 107 mmol/L 100-110 CO2 21 meq/L 20-30 CREATININE, Serum 0.84 mg/dL 0.50-1.40 eGFR(CKD-EPI 2020) >90 mL/min >60 Jun 01, 2024 10:38 AM [facility] LIPID PANEL, NON FASTING Specimen Type: SERUM No comment entered. Ordering Provider: LINDA PERSON Report Released Date/Time: Jun 01, 2024 10:12 AM Reporting Lab: [facility] [address] [address] Performing Lab: [place] [facility] [address] [facility] [address] CHOLESTEROL 126 mg/dL TRIGLYCERIDE 114 mg/dL 0-150 [...] took place. Date/Time Current Smoking Status Comment [facility] Nov 27, 2023 11:00 AM VA-TOBACCO FORMER USER [place] [facility] Tobacco Use History This section includes a history of the smoking, or tobacco-related health factors, that were collected on or before the date of the Encounter. The data comes from the [place] facility where the Encounter took place. Date/Time Smoking Status/Tobac co Use Comment Facility Nov 27, 2023 11:00 AM VA-TOBACCO QUIT 15 YRS OR MORE [place] [facility] Dec 02, 2022 08:00 AM VA-TOBACCO FORMER USER [facility] Dec 02, 2022 08:00 AM VA-TOBACCO QUIT 15 YRS OR MORE [facility] Nov 05, 2021 10:30 AM VA-TOBACCO FORMER USER [place] [facility] Nov 05, 2021 10:30 AM VA-TOBACCO QUIT 1 TO < 5 YRS [facility] Sep 14, 2020 02:00 PM VA-TOBACCO FORMER USER [facility] Sep 14, 2020 02:00 PM VA-TOBACCO QUIT 5 TO < 15 YRS [facility] Jan 22, 2018 03:40 PM QUIT TOBACCO USE > 7 YEARS AGO [facility] Jun 04, 2016 02:01 PM CURRENT SMOKER been smoking pass 20 yrs [place] [facility] Jun 04, 2016 02:01 PM V1-PT DECLINES REF TO TOBACCO CESS PRGM [facility] Jun 04, 2016 02:01 PM V1-PT THINKING ABOUT QUIT TOBACCO USE [facility] Jul 18, 2014 03:31 PM V1-PT DECLINES REF TO TOBACCO CESS PRGM [facility] Jul 18, 2014 03:31 PM V1-PT DECLINES TOBACCO CESSATION MEDS [facility] Jul 18, 2014 03:31 PM V1-PT NOT INTERESTED IN QUIT TOBACCO USE [facility] Jan 09, 2014 10:43 AM CURRENT SMOKER pt smokes 1 pk of cigarettes per day. [facility] Jan 09, 2014 10:43 AM V1-PT THINKING ABOUT QUIT TOBACCO USE [facility] Aug 28, 2003 10:47 AM CURRENT SMOKER one pack q 6 days - he has cut down from 3 PPD. He is in the process of quitting [facility] Encounter Notes: All associated encounter notes This section contains the clinical notes associated to the Encounter. Date/Time Encounter Note(s) Provider Source May 02, 2024 04:43 PM NONVA NOTE: [facility] TITLE: [facility] PRESENTING CARE COORD PLAN STANDARD TITLE: NONVA NOTE DATE OF NOTE: MAY 02, 2024@16:43 ENTRY DATE: MAY 02, 2024@16:43:59 AUTHOR: SONNY BOGGS EXP COSIGNER: URGENCY: STATUS: COMPLETED Emergency Notification Intake Date Presenting to the Facility: Mar Method of Contact: Notified from ECR worklist Notification ID: [id number] [facility] Referral #: [id number] [facility] Hospital Name: Hospital: [facility] Address: City: [place] State: [place] Zip Code: Phone : [facility] Facility Point of Contact: Name: Marina Phone: Chief complaint: CHEST PAIN, DIFF SWALLOWING Primary Diagnosis: Disposition Discharged Date of discharge: Mar Discharge to Comment: ER Only /gaetano/ SONNY RITCHIE Signed: 05/02/2024 16:48 Receipt Acknowledged By: 05/03/2024 08:02 /es/ NICHELLE ISLAS, MS,PA-C PHYSICIAN BUSINESS LAW INSTRUCTOR for ELIZABET JOHAN ROBINS 05/03/2024 08:01 /es/ DEBBIE GORMAN, MSN, RN, CNL PRIMARY CARE TEAM NURSE 05/03/2024 08:12 /es/ Marcia Maurer, project management Staff Nurse 05/03/2024 10:10 /es/ ELIZABET CARDOZO Registered Nurse [employer] [facility]
--- OUTSIDE RECORDS SUMMARY | 2024-11-01 08:01 | XMS_ITS ---
Author Name [facility] [place] Organization [facility] [place] Address [address] [place] [address] Care Team Providers Care Cutter Operator Asbestos Shingle Name Role Phone ELIZABET ROBINS Primary Care [...] Patient's Relationship to Policy Paul [facility] CE ORGANIZ [facility] AC Apr 18, 2018 [id number] [phone] WILLIS,MAR JUDITH SPOUSE ANTHEM [place] OF [place] ([place]) [facility]GANIZ [facility] Apr 18, 2018 [id number] WILLIS,MAR JUDITH SPOUSE BCBS [facility] CE ORGANIZ [facility] SHARE ACTIV E Apr 18, 2018 [phone] WILLIS,MAR JUDITH SPOUSE BCBS OF [facility] CE ORGANIZ [facility] Apr 18, 2018 [id number] WLILIS,MAR JUDITH PATIENT BCBS OF [facility] CE ORGANIZ BRENDA MCCAB[facility] Apr 18, 2018 [id number] WILLIS,MAR JUDITH SPOUSE BC[place] OF [place] PREFERRED PROVIDER ORGANIZAT ION (PPO) BRENDA MCCABE [facility] AC Apr 18, 2018 [id number] WILLIS,MAR JUDITH SPOUSE BCBS OF [facility] CE ORGANIZ BRENDA MCCABE [facility] ACT Apr 18, 2018 [id number] WILLIS,MAR JUDITH SPOUSE BCBS OF [facility] CE ORGANIZ BRENDA MCCABE [facility] AC Apr 18, 2018 [id number] WILLIS,MAR JUDITH SPOUSE CAREMARK PRESCRIPT ION RX Oct 19, 2022 [id number] WILLIS,MAR JUDITH SPOUSE [place]EM[place] PRESCRIPT ION RX22M A Oct 19, 2022 [id number] WILLIS,LAVELLE AEL PATIENT CAREMARK PRESCRIPT ION RX22M B Oct 19, 2022 [id number] WILLIS,LAVELLE AEL PATIENT CAREMARK PRESCRIPT ION BRENDA MCCABE [facility] AC Oct 19, 2022 [id number] [phone] WILLIS,LAVELLE AEL SPOUSE CAREMARK PRESCRIPT ION RX22M B Oct 19, 2022 [id number] [id number] WILLIS,MAR JUDITH SPOUSE [place] PRESCRIPT ION BCBS OF [place] Oct 19, 2022 [id number] WILLIS, SPOUSE CAREMARK ([id number]) PRESCRIPT ION [place] Oct 19, 2022 [id number] [phone] WILLIS,MAR JUDITH SPOUSE [place] BC[place] ([facility] CE ORGANIZ BRENDA MCCABE [facility] AC Apr 18, 2018 [id number] WILLIS,EDILBERTO SOTELOZA SPOUSE [employer] [place] PRESCRIPT [place] 2018 L4TA [id number] WILLIS,EDILBERTO SOTELOZA SPOUSE [employer] ([id number]) PRESCRIPT ION Apr 18, 2018 L4TA [id number] WILLIS,EDILBERTO SOTELOZA SPOUSE [employer] ([id number]) PRESCRIPT ION L4TA* Apr 18, 2020 L4TA [id number] WILLISEDILBERTOA SPOUSE [employer] ([id number]) PRESCRIPT ION Apr 18, 2018 L4TA [id number] WILLISEDILBERTOZA SPOUSE [employer] ([id number]) PRESCRIPT ION Apr 18, 2018 L4TA [id number] WILLISEDILBERTO SPOUSE [employer] ([id number]) PRESCRIPT ION L4TA* Apr 18, 2018 L4TA [id number] WILLISEDILBERTOA SPOUSE [employer] ([id number]) PRESCRIPT ION L4TA Apr 18, 2018 L4TA [id number] WILLISEDILBERTO SPOUSE EXPRESS SCRIPTS-MINOR BROGATION PRESCRIPT ION [place] OF [place] Apr 18, 2020 L4TA [id number] WILLISEDILBERTO SPOUSE [facility] CE ORGANIZAT ION W/OUT OF NETWORK BENEFITS FLTRISTEN [facility] ACT Apr 18, 2018 [id number] [phone] WILLISEDILBERTO SPOUSE [facility] CE ORGANIZAT ION FLTRISTEN [facility] AC Apr 18, 2018 [id number] WILLISEDILBERTO SPOUSE MEDICARE (WNR) MEDICARE (M) PART A Mar 19, 1990 PART A [id number] WILLIS,LAVELLE AEL PATIENT MEDICARE (WNR) MEDICARE (M) PART A Mar 19, 1990 PART A [id number] [phone] WILLIS,LAVELLE AEL PATIENT MEDICARE (WNR) MEDICARE (M) PART A Mar 19, 1990 PART A [id number] [phone] WILLIS,LAVELLE AEL PATIENT MEDICARE (WNR) MEDICARE (M) PART A Mar 19, 1990 PART A [id number] WILLIS,LAVELLE AEL PATIENT MEDICARE (WNR) MEDICARE (M) PART A Mar 19, 1990 PART A [id number] WILLIS,LAVELLE AEL PATIENT MEDICARE (WNR) MEDICARE (M) PART A Mar 19, 1990 PART A [id number] WILLIS,LAVELLE AEL PATIENT MEDICARE (WNR) MEDICARE (M) PART A Mar 19, 1990 PART A [id number] WILLIS,LAVELLE AEL PATIENT MEDICARE (WNR) MEDICARE (M) PART A Mar 19, 1990 PART A [id number] WILLIS,LAVELLE AEL PATIENT MEDICARE (WNR) MEDICARE (M) PART A Mar 19, 1990 PART A [id number] WILLISLAVELLE AEL PATIENT MEDICARE (WNR) MEDICARE (M) PART A Mar 19, 1990 PART A [id number] WILLIS,LAVELLE AEL PATIENT MEDICARE (WNR) MEDICARE (M) PART A Mar 19, 1990 PART A [id number] WILLISLAVELLE AEL PATIENT Selected Encounter This section includes the information on record at NE for the Encounter. Date/Time Encounter Type Encounter Description Reason Pro vider Source May 30, 2024 08:30 AM Outpatient Encounter PRIMARY CARE/MEDICINE IHE Encounter Template Text not used by NE Plan of Treatment: Future Appointments (+ 6 [...] 20 appointments. The data comes from all [facility]. Appointment Date/Time Appointment Type Appointme nt Facility Name Jun 01, 2024 10:00 AM AMBULATORY - MEDICINE [place] [facility] [place] [facility] Jun 01, 2024 11:30 AM AMBULATORY - MEDICINE [place] [facility] [place] [facility] Jun 28, 2024 11:30 AM AMBULATORY - MEDICINE [place] [facility] [place] [facility] Jul 08, 2024 10:30 AM AMBULATORY - MEDICINE [place] [facility] [place] [facility] Jul 13, 2024 09:30 AM AMBULATORY - MEDICINE [place] [facility] [place] [facility] Aug 12, 2024 09:30 AM AMBULATORY - MEDICINE [place] [facility] [place] [facility] Aug 22, 2024 09:00 AM AMBULATORY - MEDICINE [place] [facility] [place] [facility] Sep 21, 2024 09:00 AM AMBULATORY - MEDICINE [place] [facility] [place] [facility] Sep 21, 2024 10:00 AM AMBULATORY - MEDICINE [place] [facility] [place] [facility] Nov 28, 2024 09:30 AM AMBULATORY - MEDICINE [place] [facility] [place] [facility] Active, Pending, and Scheduled Orders This section includes a listing of several types of active, pending, and scheduled orders, including clinic medications orders, diagnostic test orders, procedure orders and consult orders; where the start date of the order is 45 days before the date of the Encounter or 45 days after the date of theEncounter. The data comes from all [facility]. Test Date/Time Test Type Test Details Facility Name Jul 13, 2024 09:58 AM Consult Order PODIATRY/N HM OUTPT Cons Tool Dispatcher's Choice [facility] Lab Results: +/- 30 days of the encounter This section includes the Chemistry and Hematology Lab Results on record with NE for the patient. Radiology Reports and Pathology Reports are provided separately, in subsequent sections. Lab Results This section contains the Chemistry/Hematology Results that were resulted 30 days before or 30 daysafter the date of the Encounter. Date/Time Source Result Type Result - Unit Interpretation Reference Range Comment Jun 01, 2024 12:25 PM [facility] MICRO[facility] CREATININE RATIO PANEL Specimen Type: URINE No comment entered. Ordering Provider: LINDA PERSON Report Released Date/Time: Jun 01, 2024 11:53 AM Reporting Lab: [address] [address] Performing Lab: [address] [address] MICROALBUMIN/C REATININE RATIO 10.8 mg/g 0-29.9 MICROALBUMIN,Q UANTITATIVE 1.1 mg/dL RR UNAVAIL CREATININE URINE 101.63 mg/dL Jun 01, 2024 10:38 AM [facility] HEMOGLOBIN A1C PANEL Specimen Type: BLOOD [...] May 30, 2024 10:29 AM Reporting Lab: [address] [address] Performing Lab: [address] [address] HEMOGLOBIN A1C 5.8 H 4.0-5.6 Jun 01, 2024 10:38 AM [facility] BASIC METABOLIC PANEL (non-fasting) Specimen Type: SERUM No comment entered. Ordering Provider: LINDA PERSON Report Released Date/Time: May 30, 2024 10:29 AM Reporting Lab: [address] [address] Performing Lab: [address] [address] UREA NITROGEN 13 mg/dL 7-25 GLUCOSE 115 mg/dL H 65-100 SODIUM 140 mmol/L 135-145 POTASSIUM 4.3 mmol/L 3.5-5.0 CHLORIDE 107 mmol/L 100-110 CO2 21 meq/L 20-30 CREATININE, Serum 0.84 mg/dL 0.50-1.40 eGFR(CKD-EPI 2020) >90 mL/min >60 Jun 01, 2024 10:[address] [facility] LIPID PANEL, NON FASTING Specimen Type: SERUM No comment entered. Ordering Provider: LINDA PERSON Report Released Date/Time: Jun 01, 2024 10:12 AM Reporting Lab: [facility] [address] [facility] [address] Performing Lab: [facility] [address] [facility] [address] CHOLESTEROL 126 mg/dL TRIGLYCERIDE 114 mg/dL 0-150 LDL calculated 60 mg/dL 0-129 CHOL/HDL 2.9 HDL CHOLESTEROL 43 mg/dL 40-60 Social History: Smoking Status (Most current) and Tobacco Use (All prior to encounter date) This section includes the most current, and the historical, smoking and tobacco- related health factors from the NE facility where the Encounter took place. Current Smoking Status This section includes the most current smoking, or tobacco-related health factor, from the NE facility where the Encounter took place. Date/Time Current Smoking Status Comment [facility] Nov 27, 2023 11:00 AM NE-TOBACCO QUIT 15 YRS OR [facility] Tobacco Use History This section includes a history of the smoking, or tobacco-related health factors, that were collected on or before the date of the Encounter. The data comes from the NE facility where the Encounter took place. Date/Time Smoking Status/Tobac co Use Comment Facility Nov 27, 2023 11:00 AM VA-TOBACCO QUIT 15 YRS OR MORE [facility] [place] [facility] Dec 02, 2022 08:00 AM VA-TOBACCO FORMER USER [facility] [place] [facility] Dec 02, 2022 08:00 AM VA-TOBACCO QUIT 15 YRS OR MORE [facility] [place] [facility] Nov 05, 2021 10:30 AM VA-TOBACCO FORMER USER [facility] [facility] Nov 05, 2021 10:30 AM VA-TOBACCO QUIT 1 TO < 5 YRS [facility] Sep 14, 2020 02:00 PM VA-TOBACCO FORMER USER [facility] Sep 14, 2020 02:00 PM VA-TOBACCO QUIT 5 TO < 15 YRS [facility] Jan 22, 2018 03:40 PM QUIT TOBACCO USE > 7 YEARS AGO [facility] Jun 04, 2016 02:01 PM CURRENT SMOKER been smoking pass 20 yrs [facility] Jun 04, 2016 02:01 PM V1-PT DECLINES REF TO TOBACCO CESS PRGM [facility] Jun 04, 2016 02:01 PM V1-PT THINKING ABOUT QUIT TOBACCO USE [facility] Jul 18, 2014 03:31 PM V1-PT DECLINES REF TO TOBACCO CESS PRGM [facility] Jul 18, 2014 03:31 PM V1-PT DECLINES TOBACCO CESSATION MEDS [facility] Jul 18, 2014 03:31 PM V1-PT NOT INTERESTED IN QUIT TOBACCO USE [facility] Jan 09, 2014 10:43 AM CURRENT SMOKER pt smokes 1 pk of cigarettes per day. [facility] Jan 09, 2014 10:43 AM V1-PT THINKING ABOUT QUIT TOBACCO USE [facility] Aug 28, 2003 10:47 AM CURRENT SMOKER one pack q 6 days - he has cut down from 3 PPD. He is in the process of quitting [facility] Encounter Notes: All associated encounter notes This section contains the clinical notes associated to the Encounter. Date/Time Encounter Note(s) Provider Source May 30, 2024 08:57 AM CLERICAL NOTE: LOCAL TITLE: APPOINTMENT NO SHOW STANDARD TITLE: CLERICAL NOTE DATE OF NOTE: MAY 30, 2024@08:57 ENTRY DATE: MAY 30, 2024@08:57:50 AUTHOR: THANH LUCAS COSIGNER: URGENCY: STATUS: COMPLETED Patient Name: CHAYA PEDRO Patient SSN: [id number] Date and time of Appointment No show : 05/30/24 08:30 PATIENT PHONE - PHONE NUMBER [CELLULAR] - NONE FOUND Patient's medical record was reviewed. 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
--- OUTSIDE RECORDS SUMMARY | 2024-11-01 08:01 | XMS_ITS | Encounter Summary ---
Author Name [facility] [place] [facility] [place] [facility] [place] [facility] [place] Address [address] [place] [address] Care Team Providers Care Admissions Nurse Name Role Phone ELIZABET ROBINS Primary Care [...] Patient's Relationship to Policy Paul [facility] CE ORGANIZ [facility] AC Apr 18, 2018 [id number] WILLIS,MAR JUDITH SPOUSE [place] ([place]) [facility] CE ORGANIZ BRENDA [facility] Apr 18, 2018 [id number] WILLIS,MAR JUDITH SPOUSE BCBS [facility] CE ORGANIZ [facility] SHARE ACTIV E Apr 18, 2018 [phone] WILLIS,MAR JUDITH SPOUSE BCBS OF [facility] CE ORGANIZ [facility] Apr 18, 2018 [id number] WILLIS,MAR JUDITH PATIENT BCBS OF [facility] CE ORGANIZ BRENDA [facility] Apr 18, 2018 [id number] WILLIS,MAR JUDITH SPOUSE BCBS OF [place] PREFERRED PROVIDER ORGANIZAT ION (PPO) BRENDA [facility] AC Apr 18, 2018 [id number] [phone] WILLIS,MAR JUDITH SPOUSE BCBS OF [facility] CE ORGANIZ BRENDA [facility] ACT Apr 18, 2018 [id number] WILLIS,MAR JUDITH SPOUSE BCBS OF [facility] CE ORGANIZ BRENDA [facility] AC Apr 18, 2018 [id number] [phone] WILLIS,MAR JUDITH SPOUSE [place] PRESCRIPT ION RX22M A Oct 19, 2022 RX22MA [id number] WILLIS,LAVELLE AEL PATIENT [place] PRESCRIPT ION RX22M B Oct 19, 2022 RX22MB [id number] WILLIS,LAVELLE AEL PATIENT [place] PRESCRIPT ION BRENDA [facility] AC Oct 19, 2022 RX22MB [phone] WILLIS,LAVELLE AEL SPOUSE [place] PRESCRIPT [place] Oct 19, 2022 RX22MA [id number] WILLIS, SPOUSE [place] PRESCRIPT ION RX Oct 19, 2022 RX22MB [id number] [phone] WILLIS,MAR JUDITH SPOUSE [place] PRESCRIPT ION RX22M B Oct 19, 2022 RX22MB [id number] [phone] WILLIS,MAR JUDITH SPOUSE [place] ([id number]) PRESCRIPT [place] Oct 19, 2022 [id number] [phone] WILLIS,MAR JUDITH SPOUSE [place] BC[place] ([facility] CE ORGANIZ BRENDA [facility] AC Apr 18, 2018 [id number] [phone] WILLIS,EDILBERTO SOTELOZA SPOUSE [employer] PRESCRIPT [place] 2018 L4TA [id number] WILLIS,EDILBERTO SOTELOZA SPOUSE [employer] ([id number]) PRESCRIPT ION Apr 18, 2018 L4TA [id number] WILLIS,EDILBERTO SOTELOZA SPOUSE [employer] ([id number]) PRESCRIPT ION L4TA* Apr 18, 2020 L4TA [id number] WILLIS,EDILBERTO PALAFOXA SPOUSE [employer] ([id number]) PRESCRIPT ION L4TA* Apr 18, 2018 L4TA [id number] WILLIS,EDILBERTO PALAFOXA SPOUSE [employer] ([id number]) PRESCRIPT ION Apr 18, 2018 L4TA [id number] WILLIS,EDILBERTO WONG SPOUSE [employer] ([id number]) PRESCRIPT ION Apr 18, 2018 L4TA [id number] WILLISEDILBERTO SPOUSE [employer] ([id number]) PRESCRIPT ION L4TA Apr 18, 2018 L4TA [id number] WILLIS,EDILBERTO WONG SPOUSE [employer]-MINOR [place] PRESCRIPT [place] Apr 18, 2020 L4TA [id number] WILLIS,EDILBERTO WONG SPOUSE [place] [facility] [facility] CE ORGANIZAT ION W/OUT OF NETWORK BENEFITS [facility] RSD ACT Apr 18, 2018 [id number] [phone] WILLISEDILBERTO SPOUSE [place] BCBS WN (BLUECARD) [facility] CE ORGANIZAT ION [facility]EN [facility] RSD AC Apr 18, 2018 [id number] EDILBERTO PEDRO SPOUSE MEDICARE (WNR) MEDICARE (M) PART A Mar 19, 1990 PART A [id number] WILLISLAVELLE AEL PATIENT MEDICARE (WNR) MEDICARE (M) PART A Mar 19, 1990 PART A [id number] [phone] WILLIS,LAVELLE AEL PATIENT MEDICARE (WNR) MEDICARE (M) PART A Mar 19, 1990 PART A [id number] WILLIS,LAVELLE AEL PATIENT MEDICARE (WNR) MEDICARE (M) PART A Mar 19, 1990 PART A [id number] WILLIS,LAVELLE AEL PATIENT MEDICARE (WNR) MEDICARE (M) PART A Mar 19, 1990 PART A [id number] [phone] WILLIS,LAVELLE AEL PATIENT MEDICARE (WNR) MEDICARE (M) PART A Mar 19, 1990 PART A [id number] [phone] WILLIS,LAVELLE AEL PATIENT MEDICARE (WNR) MEDICARE (M) PART A Mar 19, 1990 PART A [id number] WILLIS,LAVELLE AEL PATIENT MEDICARE (WNR) MEDICARE (M) PART A Mar 19, 1990 PART A [id number] WILLIS,LAVELLE AEL PATIENT MEDICARE (WNR) MEDICARE (M) PART A Mar 19, 1990 PART A [id number] WILLIS,LAVELLE AEL PATIENT MEDICARE (WNR) MEDICARE (M) PART A Mar 19, 1990 PART A [id number] [phone] WILLIS,LAVELLE AEL PATIENT MEDICARE (WNR) MEDICARE (M) PART A Mar 19, 1990 PART A [id number] WILLIS,LAVELLE AEL PATIENT Selected Encounter This section includes the information on record at [place] for the Encounter. Date/Time Encounter Type Encounter Description Reason Pro vider Source May 20, 2024 08:19 AM Outpatient Encounter TELEPHONE CASE MANAGEMENT IHE Encounter Template Text not used by [...] 20 appointments. The data comes from all [place] treatment facilities. Appointment Date/Time Appointment Type Appointme nt Facility Name May 30, 2024 08:30 AM AMBULATORY - MEDICINE [facility] [place] May 30, 2024 09:30 AM [facility]ULATORY [facility]IC[facility] [place] [facility] Jun 01, 2024 10:00 AM AMBULATORY - MEDIC[facility] [place] [facility] Jun 01, 2024 11:30 AM [facility] Jun 28, 2024 11:30 AM [facility] Jul 08, 2024 10:30 AM AMBULATORY - MEDIC[facility] [place] [facility] Jul 13, 2024 09:30 AM AMBULATORY - MEDICINE [facility] [place] [facility] Aug 12, 2024 09:30 AM AMBULATORY - MEDIC[facility] [place] [facility] Aug 22, 2024 09:00 AM AMBULATORY - MEDICINE [facility] [place] [facility] Sep 21, 2024 09:00 AM AMBULATORY - MEDICINE [facility] [place] [facility] Sep 21, 2024 10:00 AM AMBULATORY - MEDICINE [facility] [place] [facility] Lab Results: +/- 30 days of [...] Comment Jun 01, 2024 12:25 PM [facility] [place] [facility] MICROALBUMIN CREATININE RATIO PANEL Specimen Type: URINE No comment entered. Ordering Provider: LINDA PERSON Report Released Date/Time: Jun 01, 2024 11:53 AM Reporting Lab: [facility] [place] [facility] [address] [facility] [address] Performing Lab: [facility] [address] MICROALBUMIN/C REATININE RATIO 10.8 mg/g 0-29.9 MICROALBUMIN,Q UANTITATIVE 1.1 mg/dL RR UNAVAIL CREATININE URINE 101.63 mg/dL Jun 01, 2024 10:38 AM [facility] HEMOGLOBIN A1C PANEL Specimen Type: BLOOD Comment: [...] May 30, 2024 10:29 AM Reporting Lab: [address] [address] Performing Lab: [address] [address] HEMOGLOBIN A1C 5.8 H 4.0-5.6 Jun 01, 2024 10:38 AM [facility] BASIC METABOLIC PANEL (non-fasting) Specimen Type: SERUM No comment entered. Ordering Provider: LINDA PERSON Report Released Date/Time: May 30, 2024 10:29 AM Reporting Lab: [address] [address] Performing Lab: [address] [address] UREA NITROGEN 13 mg/dL 7-25 GLUCOSE 115 mg/dL H 65-100 SODIUM 140 mmol/L 135-145 POTASSIUM 4.3 mmol/L 3.5-5.0 CHLORIDE 107 mmol/L 100-110 CO2 21 meq/L 20-30 CREATININE, Serum 0.84 mg/dL 0.50-1.40 eGFR(CKD-EPI 2020) >90 mL/min >60 Jun 01, 2024 10:38 AM [facility] LIPID PANEL, NON FASTING Specimen Type: SERUM No comment entered. Ordering Provider: LINDA PERSON Report Released Date/Time: Jun 01, 2024 10:12 AM Reporting Lab: [facility] [address] [facility] [address] Performing Lab: [facility] [place] [facility] [address] [facility] [address] CHOLESTEROL 126 mg/dL TRIGLYCERIDE 114 mg/dL 0-150 [...] took place. Date/Time Current Smoking Status Comment [facility] Nov 27, 2023 11:00 AM VA-TOBACCO FORMER USER [facility] [place] [facility] Tobacco Use History This section includes a history of the smoking, or tobacco-related health factors, that were collected on or before the date of the Encounter. The data comes from the [place] facility where the Encounter took place. Date/Time Smoking Status/Tobac co Use Comment Facility Nov 27, 2023 11:00 AM VA-TOBACCO QUIT 15 YRS OR MORE [facility] [place] [facility] Dec 02, 2022 08:00 AM VA-TOBACCO FORMER USER [facility] [place] [facility] Dec 02, 2022 08:00 AM VA-TOBACCO QUIT 15 YRS OR MORE [facility] [place] [facility] Nov 05, 2021 10:30 AM VA-TOBACCO FORMER USER [facility] [place] [facility] Nov 05, 2021 10:30 AM VA-TOBACCO QUIT 1 TO < 5 YRS [facility] [place] [facility] Sep 14, 2020 02:00 PM VA-TOBACCO FORMER USER [facility] [place] [facility] Sep 14, 2020 02:00 PM VA-TOBACCO QUIT 5 TO < 15 YRS [facility] [place] [facility] Jan 22, 2018 03:40 PM QUIT TOBACCO USE > 7 YEARS AGO [facility] [place] [facility] Jun 04, 2016 02:01 PM CURRENT SMOKER been smoking pass 20 yrs [facility] [place] [facility] Jun 04, 2016 02:01 PM V1-PT DECLINES REF TO TOBACCO CESS PR[facility] Jun 04, 2016 02:01 PM V1-PT THINKING ABOUT QUIT TOBACCO USE [facility] Jul 18, 2014 03:31 PM V1-PT DECLINES REF TO TOBACCO CESS PRGM [facility] Jul 18, 2014 03:31 PM V1-PT DECLINES TOBACCO CESSATION MEDS [facility] Jul 18, 2014 03:31 PM V1-PT NOT INTERESTED IN QUIT TOBACCO USE [facility] Jan 09, 2014 10:43 AM CURRENT SMOKER pt smokes 1 pk of cigarettes per day. [facility] Jan 09, 2014 10:43 AM V1-PT THINKING ABOUT QUIT TOBACCO USE [facility] Aug 28, 2003 10:47 AM CURRENT SMOKER one pack q 6 days - he has cut down from 3 PPD. He is in the process of quitting [facility] Encounter Notes: All associated encounter notes This section contains the clinical notes associated to the Encounter. 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 ER visit only. No further action needed. /gaetano/ MARYJO SWENSON Registered Nurse Signed: 05/20/2024 08:19 MARYJO SWENSON [facility]
--- OUTSIDE RECORDS SUMMARY | 2024-11-01 08:02 | XMS_ITS | Encounter Summary ---
Author Name [facility] [place] Address [address] [place] [address] Care Team Providers Care Affirmative Action Officer Name Role Phone ELIZABET ROBINS Primary [...] [facility] CE ORGANIZ [facility] AC Apr 18, 2018 [id number] WILLIS,MAR JUDITH SPOUSE ANTHEM [place] OF [place] ([place]) [facility] CE ORGANIZ [facility]TRISTEN [facility] Apr 18, 2018 [phone] WILLIS,MAR JUDITH SPOUSE BCBS [facility] CE ORGANIZ [facility] E Apr 18, 2018 [id number] WILLIS,MAR JUDITH SPOUSE BCBS OF [facility] CE ORGANIZ [facility] Apr 18, 2018 [id number] WILLIS,MAR JUDITH PATIENT BCBS OF [facility] CE ORGANIZ BRENDA MCCABE [facility] Apr 18, 2018 [id number] WILLIS,MAR JUDITH SPOUSE BCBS OF [place] PREFERRED PROVIDER ORGANIZAT ION (PPO) BRENDA MCCABE [facility] AC Apr 18, 2018 [id number] [phone] WILLIS,MAR JUDITH SPOUSE BCBS OF [facility] CE ORGANIZ BRENDA MCCABE [facility] ACT Apr 18, 2018 [id number] WILLIS,MAR JUDITH SPOUSE BCBS OF [facility] CE ORGANIZ BRENDA MCCABE [facility] AC Apr 18, 2018 [id number] WILLIS,MAR JUDITH SPOUSE [place] PRESCRIPT ION RX22M A Oct 19, 2022 RX22MA [id number] WILLIS,LAVELLE AEL PATIENT [place] PRESCRIPT ION RX22M B Oct 19, 2022 RX22MB [id number] WILLIS,LAVELLE AEL PATIENT [place] PRESCRIPT ION BRENDA MCCABE [facility] AC Oct 19, 2022 RX22MB [id number] [phone] WILLIS,LAVELLE AEL SPOUSE [place] PRESCRIPT ION [place] OF [place] Oct 19, 2022 RX22MA [id number] [phone] WILLIS, SPOUSE [place] PRESCRIPT ION RX Oct 19, 2022 RX22MB [id number] [phone] WILLIS,MAR JUDITH SPOUSE [place] PRESCRIPT ION RX22M B Oct 19, 2022 RX22MB [id number] WILLIS,MAR JUDITH SPOUSE [place] ([id number]) PRESCRIPT ION [place] Oct 19, 2022 RX22MB [id number] [phone] WILLIS,MAR JUDITH SPOUSE [place] BCBS ([facility] CE ORGANIZ BRENDA MCCABE [facility] AC Apr 18, 2018 [id number] [phone] WILLIS,EDILBERTO WONG SPOUSE [employer] PRESCRIPT ION [place] 2018 L4TA [id number] WILLIS,EDILBERTO SOTELOZA SPOUSE [employer] ([id number]) PRESCRIPT ION Apr 18, 2018 L4TA [id number] WILLIS,EDILBERTO SOTELOZA SPOUSE [employer] ([id number]) PRESCRIPT ION L4TA* Apr 18, 2020 L4TA [id number] WILLIS,EDILBERTO PALAFOXA SPOUSE [employer] ([id number]) PRESCRIPT ION L4TA* Apr 18, 2018 L4TA [id number] WILLIS,EDILBERTO PALAFOXA SPOUSE [employer] ([id number]) PRESCRIPT ION Apr 18, 2018 L4TA [id number] WILLIS,EDILBERTO WONG SPOUSE [employer] ([id number]) PRESCRIPT ION Apr 18, 2018 L4TA [id number] WILLIS,EDILBERTO WONG SPOUSE [employer] ([id number]) PRESCRIPT ION L4TA Apr 18, 2018 L4TA [id number] WILLIS,EDILBERTO WONG SPOUSE [employer]-MINOR [place] PRESCRIPT ION [place] OF [place] Apr 18, 2020 L4TA [id number] WILLIS,EDILBERTO WONG SPOUSE [facility] CE ORGANIZAT ION W/OUT OF NETWORK BENEFITS [facility]EN [facility] ACT Apr 18, 2018 [phone] WILLISEDILBERTO SPOUSE [place] BCBS [facility] (BLUECAR) [facility] CE ORGANIZAT ION TXTRISTEN [facility] AC Apr 18, 2018 [id number] [phone] WILLISEDILBERTO SPOUSE MEDICARE (WNR) MEDICARE (M) PART A Mar 19, 1990 PART A [id number] WILLISLAVELLE PATIENT MEDICARE (WNR) MEDICARE (M) PART A Mar 19, 1990 PART A [id number] WILLIS,LAVELLE AEL PATIENT MEDICARE (WNR) MEDICARE (M) PART A Mar 19, 1990 PART A [id number] [phone] WILLIS,LAVELLE AEL PATIENT MEDICARE (WNR) MEDICARE (M) PART A Mar 19, 1990 PART A [id number] [phone] WILLIS,LAVELLE AEL PATIENT MEDICARE (WNR) MEDICARE (M) PART A Mar 19, 1990 PART A [id number] WILLIS,LAVELLE AEL PATIENT MEDICARE (WNR) MEDICARE (M) PART A Mar 19, 1990 PART A [id number] WILLIS,LAVELLE AEL PATIENT MEDICARE (WNR) MEDICARE (M) PART A Mar 19, 1990 PART A [id number] WILLIS,LAVELLE AEL PATIENT MEDICARE (WNR) MEDICARE (M) PART A Mar 19, 1990 PART A [id number] WILLIS,LAVELLE AEL PATIENT MEDICARE (WNR) MEDICARE (M) PART A Mar 19, 1990 PART A [id number] WILLIS,LAVELLE AEL PATIENT MEDICARE (WNR) MEDICARE (M) PART A Mar 19, 1990 PART A [id number] WILLIS,LAVELLE AEL PATIENT MEDICARE (WNR) MEDICARE (M) PART A Mar 19, 1990 PART A [id number] WILLIS,LAVELLE AEL PATIENT Selected Encounter This section includes the information on record at [place] for the Encounter. Date/Time Encounter Type Encounter Description Reason Provider Source Jun 03, 2024 11:35 AM HC PRO PHONE CALL 21-30 MIN TELEPHONE/BRIGETTE WALTON ICD-10-CM Z74.1 Need for assistance with personal care DANYEL MITCHELL Encounter Template Text not used by [place] Assessments - Encounter Diagnoses This section includes the primary and secondary diagnoses documented for the Encounter. Date/Time Primary/Secondary Diagnosis Diagnosis Name Provider Source Jun 03, 2024 11:35 AM PRIMARY Need for assistance with personal care PAULADANYEL Javier [facility] ([id number]) Plan of Treatment: Future Appointments (+ 6 months) and Future Tests (+/- 45 days) The Plan of Treatment section includes future care activities for the patient from all [place] [facility]. This section includes future appointments and future orders which are active, pending or scheduled. Future Appointments This section includes appointments that were scheduled to occur 6 months from the date of the Encounter, up to a maximum of 20 appointments. The data comes from all [facility]. Appointment Date/Time Appointment Type Appointme nt Facility Name Jun 28, 2024 11:30 AM AM[place]UL[place]ORY [place] [facility] [place] [facility] Jul 08, 2024 10:30 AM [place] [facility] [place] [facility] Jul 13, 2024 09:30 AM [place]ICINE [place] [facility] [place] [facility] Aug 12, 2024 09:30 AM AM[place]UL[place] MEDICINE [place] [facility] [place] [facility] Aug 22, 2024 09:00 AM AM[place]UL[place]ORY [place] [facility] [place] [facility] Sep 21, 2024 09:00 AM [place] [facility] [place] [facility] Sep 21, 2024 10:00 AM AM[place]UL[place]ORY - [place] [facility] [place] [facility] Nov 28, 2024 09:30 AM AM[place]UL[place]ORY - [place] [facility] [place] [facility] Dec 02, 2024 08:30 AM AM[place]UL[place]ORY - [place] [facility] [place] [facility] Active, Pending, and Scheduled Orders This section includes a listing of several types of active, pending, and scheduled orders, including clinic medications orders, diagnostic test orders, procedure orders and consult orders; where the start date of the order is 45 days before the date of the Encounter or 45 days after the date of theEncounter. The data comes from all [facility]. Test Date/Time Test Type Test Details Facility Name Jul 13, 2024 09:58 AM Consult Order PODIATRY/N HM OUTPT Cons Preservative Filler Machine Operator's Choice [place] [facility] [place] [facility] Lab Results: +/- 30 days of the encounter This section includes the Chemistry and Hematology Lab Results on record with [place] for the patient. Radiology Reports and Pathology Reports are provided separately, in subsequent sections. Lab Results This section contains the Chemistry/Hematology Results that were resulted 30 days before or 30 daysafter the date of the Encounter. Date/Time Source Result Type Result - Unit Interpretation Reference Range Comment Jun 01, 2024 12:25 PM [facility] MICROALBUMIN CREATININE RATIO PANEL Specimen Type: URINE No comment entered. Ordering Provider: LINDA PERSON Report Released Date/Time: Jun 01, 2024 11:53 AM Reporting [facility] [address] Performing Lab: [address] [address] MICROALBUMIN/C REATININE RATIO 10.8 mg/g 0-29.9 MICROALBUMIN,Q UANTITATIVE 1.1 mg/dL RR UNAVAIL CREATININE URINE 101.63 mg/dL Jun 01, 2024 10:38 AM [facility] HEMOGLOBIN A1C PANEL Specimen Type: [...] May 30, 2024 10:29 AM Reporting Lab: [address] [address] Performing Lab: [address] [address] HEMOGLOBIN A1C 5.8 H 4.0-5.6 Jun 01, 2024 10:38 AM [facility] BASIC METABOLIC PANEL (non-fasting) Specimen Type: SERUM No comment entered. Ordering Provider: LINDA EPRSON Report Released Date/Time: May 30, 2024 10:29 AM Reporting Lab: [address] [address] Performing Lab: [address] [place] [address] UREA NITROGEN 13 mg/dL 7-25 GLUCOSE 115 mg/dL H 65-100 SODIUM 140 mmol/L 135-145 POTASSIUM 4.3 mmol/L 3.5-5.0 CHLORIDE 107 mmol/L 100-110 CO2 21 meq/L 20-30 CREATININE, Serum 0.84 mg/dL 0.50-1.40 eGFR(CKD-EPI 2020) >90 mL/min >60 Jun 01, 2024 10:38 AM [facility] LIPID PANEL, NON FASTING Specimen Type: SERUM No comment entered. Ordering Provider: LINDA PERSON Report Released Date/Time: Jun 01, 2024 10:12 AM Reporting Lab: [address] [address] Performing Lab: [address] [address] CHOLESTEROL 126 mg/dL TRIGLYCERIDE 114 mg/dL 0-150 LDL calculated 60 mg/dL 0-129 CHOL/HDL 2.9 HDL CHOLESTEROL 43 mg/dL 40-60 Encounter Notes: All associated encounter notes This section contains the clinical notes associated to the Encounter. Date/Time Encounter Note(s) Provider Source Jun 03, 2024 11:35 AM CAREGIVER CERTIFIC ATE: LOCAL TITLE: [facility] PCAFC APPLICATION INTAKE STANDARD TITLE: CAREGIVER CERTIFICATE DATE OF NOTE: JUN 03, 2024@11:35 ENTRY DATE: JUN 03, 2024@11:35:19 AUTHOR: DANYEL MITCHELL EXP COSIGNER: URGENCY: STATUS: COMPLETED [facility] PCAFC APPLICATION INTAKE Has ADDENDA Program of Comprehensive Assistance for Family Caregivers (PCAFC) Application Intake The Local Caregiver Support Program (CSP) Staff contact and identified caregiver applicant(s) for the PCAFC to discuss the program application process and complete the application intake. A brief overview of the eligibility requirements, application process and appeal rights are reviewed with the and caregiver applicant(s). Date of visit: 06/03/2024 Identified the using full name and the following other woods identifier(s): Full name: CHAYA PEDRO Ruben SSN: [id number] The application intake was conducted using the telephone. Application received date: 06/02/2024 Individuals providing input include: Primary Family Caregiver applicant Application Information Review: Local Caregiver Support Program (CSP) staff have reviewed and verified information contained in the 10-10CG. 10-10CG has been determined to be a valid application. [place] Information: address: [address] [place] [address] phone #: PATIENT PHONE - [place] Facility where receives care: [facility] The does not live in a foster home, assisted living, or other institutional location. The does not have a legal guardian\conservator. The does not have an Advance Directive. Were Advance Directives discussed/reviewed with [place]? Yes Details: Not interested at this time The does not have a VA fiduciary. Service Information: Dates of service: 11/06/74 - 11/05/78 Branch of service: [employer] [place] service connected ratin% [place] service connected disabilities: DS - Disabilities Eligibility: SERVICE CONNECTED 50% to 100% VERIFIED Total S/C %: 100 NEUROSIS, DYSTHYMIC DISORD 70% S/C SEIZURE DISORDER 100% S/C The individual is not on active duty or in the Reserves. 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: Yes (* Serious injury means any service-connected disability that (1) is rated at 70 percent or more by VA, or (2) is combined with any other service-connected disability or disabilities, and a combined rating of 70 percent or more is assigned by VA.) 3) The individual receives care at home or will do so if VA designates a Family Caregiver: Yes 4) The individual receives ongoing care from a primary care team or will do so if [place] designates a Family Caregiver: Yes 5) The individual resides in a State, defined as each of the several States, Territories, and possessions of the [place], the [place], and the [facility]: Yes Caregiver Requirements: Primary Family Caregiver Applicant Name: Katie Pedro VA Form 10-5345 ([facility]) is on file for Caregiver. Date of Release of Information: 01/22/18 The Primary Family Caregiver applicant is 18 years of age or older. The Primary Family Caregiver applicant is a family member or will live time clerk with the if designated as a Family Caregiver. Relationship to : Spouse Address of applicant's residence: [address] [place] [address] Requirement Status: The and at least one Family Caregiver applicant meet all of the requirements listed above. Local CSP staff will coordinate the following next steps: Coordinate the necessary [place] assessment(s) Coordinate the Electronic Health Record (EHR) for the Family Caregiver applicant(s) as needed Coordinate the Family Caregiver applicant(s) assessment Additional Information: - Caregiver provided with national EFT script which addresses how setting up direct deposit is optional during PCAFC application process. /gaetano/ KARRIE LAMAS Silver Plater/GEC/Caregiver Blue Line Hanger Signed: 06/03/2024 11:38 06/03/2024 ADDENDUM STATUS: COMPLETED 5103 Letter Mailed: Chaya Pedro [address] [place] [address]. [place] [address] 06/03/2024 Dear Chaya Pedro Thank you for your interest in the Program of Comprehensive Assistance for Family Caregivers (PCAFC). Your VA Form 10-10CG, Application for the Program of Comprehensive Assistance for Family Caregivers was received by the Department of Veterans Affairs (VA) on 06/02/2024. This letter will explain how VA will evaluate your application for PCAFC and your role in the evaluation process. A copy of this letter is also being sent to each Family Caregiver Applicant identified on the VA Form 10-10CG you submitted. Additionally, if you have appointed an Authorized Mottler Machine Feeder through A to represent you for VA claims, a copy of this letter will also be sent to that individual/organization. We?look forward to working with you as we evaluate your application?and determine if you meet eligibility criteria for PCAFC? The evaluation for PCAFC eligibility requires Veterans and Family Caregiver Applicants to participate in a comprehensive evaluation process, which we explain below. We will work with you to schedule the necessary appointments and evaluations. Please contact a member of your Caregiver Support Program (CSP) Team immediately if you are having difficulty with the application requirements. If you or your Family Caregiver Applicant(s) are having trouble attending appointments, completing required trainings, or have a change in circumstance impacting your evaluation for PCAFC, let us know so we can offer assistance. The [facility] Team will maintain contact with you throughout the evaluation process. WHAT HAPPENS NEXT Now that we have received your application for PCAFC, we will initiate the evaluation process. The steps in this process are described below. ? Step One:??Application Intake?-?A member of your CSP Team will contact you and/or your Family Caregiver Applicant(s) to review your PCAFC application and discuss the Program eligibility requirements. You will have the opportunity to ask questions about any information covered in this letter, including how you can submit additional information to us that you believe supports your eligibility for PCAFC. As part of this step, we will review VA Form 10-10CG that you submitted to ensure it is the proper version and that the information on the form is correct. Please note that only the most recent version (February 2024) of VA Form 10-10CG should be submitted. The version of the form can be located in the bottom left corner of the application. If any necessary updates or corrections are identified, we will inform you of what is needed, and you will have 90 days from the date [place] received your application to provide the needed information. If during this step of our review, [place] determines that you do not meet specific eligibility criteria, we will conclude the evaluation. You and your Family Caregiver Applicant(s) will receive a decision notice that explains why we were not able to approve the application. We will continue to work with you and your caregiver(s) to determine other ways that [place] may assist you. Some examples of reasons the evaluation may conclude at this step in the process, include but are not limited to: * Identification that you and at least one Family Caregiver Applicant do not reside in a state as defined as each of the several States, Territories, and possessions of the [place], the [place], and the [facility]. * Identification that your Family Caregiver Applicant is not your spouse, son, daughter, parent, step-family member or extended family member and does not live with you time clerk and will not do so if designated as a Family Caregiver. * You do not have a serious injury. o For the purposes of PCAFC a serious injury is defined as any service- connected disability that is rated at 70% or more by VA or is combined with any other service-connected disability or disabilities and a combined rating of 70% or more is assigned by VA. * The submitted VA Form 10-10CG was signed by a payable representative but the proper documentation of this authority was not submitted with the form. ? * Step Two - Four:?[place]?and Caregiver?Assessments? * Assessments - You will be scheduled for a functional assessment and a clinical assessment to assess whether you are in need of personal care services . For the purposes of PCAFC, to be in need of personal care services means that you require in-person personal care services from another person, and without such personal care services, alternative in-person caregiving arrangements (including respite care or assistance of an alternative caregiver) would be required to support your safety. Completion of a Release of Information form will be requested. We will help you complete this form. * Caregiver Assessment - Each Family Caregiver Applicant will be scheduled for a Caregiver Assessment. This assessment evaluates their ability to provide personal care services to you, in your home, based on your needs. If you have additional information or if you know of information which you believe supports your eligibility for PCAFC that you want us to consider, please let us know. Step Five: Initial Application Review - After you have completed the assessments described above, a member of your CSP Team will request a review of available information by a Centralized Eligibility and Appeals Team (CEAT). CEAT will review the and Caregiver Assessments along with VA medical records, other relevant evaluations, and records available to VA. If CEAT determines you do not currently meet eligibility criteria, we will conclude the evaluation. You and your Family Caregiver Applicant(s) will receive a decision notice that explains why we were not able to approve your application. We will continue to work with you and your caregiver(s) to determine other ways that VA may assist you. Step Six:?Caregiver?Training - If CEAT determines that you and your Family Caregiver Applicant(s) may meet eligibility requirements, each?Family Caregiver Applicant must complete required Core Curriculum training. We will arrange for this training to be available to each Family Caregiver Applicant, as applicable. Step Seven:?Home-Care Assessment - A VA clinician(s) will?conduct a home-care assessment. You and each Family Caregiver Applicant must be present and fully participate in this assessment.?The purpose of the home-care assessment is to assess your well-being and the well-being of your caregiver(s), as well as your caregiver(s)' competence to provide personal care services to you in your home. Step Eight:?CEAT?Review - CEAT will review all assessments and information obtained during the evaluation of your PCAFC eligibility, including a review of relevant VA medical records and any additional information obtained during the course of your evaluation. CEAT will then make a determination of your PCAFC eligibility. Step Nine: Decision Notice - You and your Family Caregiver Applicant(s) will receive a decision notice regarding your eligibility determination. WHAT WE NEED FROM YOU We need your participation in the evaluation process for PCAFC and the participation of each Family Caregiver Applicant. Eligibility determinations for PCAFC require participation in a multistep evaluation process. PCAFC Applicants are required to fully participate in the evaluation for VA to make a determination within 90 days of receiving your application. This timeline may be extended if delays are solely due to VA. If you have additional information or if you know of information which you believe supports your eligibility for PCAFC, please let us know right away so that we can consider this information when making our determination. [place] IS RESPONSIBLE FOR THE FOLLOWING ACTIONS * Scheduling and performing evaluations necessary to complete steps 1-9 described earlier in this letter. Please note, however, that a determination may be made at any time in the process if it is determined that any required eligibility criteria are not met. If that is the case, the evaluation process will conclude prior to the completion of all steps, and we will issue you and each Family Caregiver Applicant a decision notice which explains why your PCAFC application is being denied. If you know of information which you believe supports your eligibility for PCAFC which is not already available in VA records and you tell us about it, we will discuss ways we can help obtain this information and consider it when making our determination. ADDITIONAL INFORMATION WE WANT YOU TO KNOW * You have submitted a joint application for PCAFC, which means you have identified at least one and up to three caregivers for whom you are asking [place] to approve and designate as your Family Caregiver(s). When we issue PCAFC decisions or other written correspondence impacting initial and ongoing participation in PCAFC, our correspondence will be issued to you and each Family Caregiver (Applicant) impacted by the decision. Additionally, as noted above, if you have appointed an Authorized Mottler Machine Feeder using a VA Form 21- 22 or 21-22a through VBA to represent you for your VA claims, a copy of our correspondence to you will be sent to your payable representative. * If you are approved for participation in PCAFC, this approval is conditioned upon continuing to meet requirements to be an eligible [place] and your Family Caregiver(s) continuing to meet requirements for approval and designation as a Family Caregiver. This includes participation in reassessments (as applicable) and wellness contacts. Wellness contacts generally occur every 120 days with one wellness contact occurring in the 's home on an annual basis. If you are determined eligible for PCAFC, your CSP Team will review the PCAFC Roles, Responsibilities and Requirements with you and each Family Caregiver approved and designated by [place]. Please ask to be provided a copy, so you can refer to them over time. * Primary Family Caregiver Applicants have the option to establish a direct deposit account with the [facility] [place]. Establishing this account does not guarantee or impact determination of eligibility for PCAFC. This option is offered because it can take several weeks to successfully establish a direct deposit account with the [facility] if approved for PCAFC. Primary Family Caregiver Applicants are not required to establish direct deposit accounts before a PCAFC eligibility determination has been made, but it may be helpful to avoid delays in stipend payments. If approved, all Primary Family Caregivers are required to receive their payments through electronic fund transfers, known as direct deposit. * In the event a Primary Family Caregiver Applicant establishes a direct deposit account with the [facility] [employer] [place] and their application for PCAFC is denied, Primary Family Caregiver Applicants can contact the [facility] directly and request removal of their account from the [facility]. The [facility] can be reached via email at [facility] or by calling option #2. HOW SOON SHOULD YOU SEND ADDITIONAL INFORMATION? If you plan to submit additional information to support your PCAFC eligibility determination, please let us know as soon as possible. Veterans and Family Caregiver Applicants are required to complete the PCAFC evaluation process within 90 days of [place] receiving your application. We may proceed with initiating your evaluation for eligibility and render a decision even if we have not received additional information from you. Submission of additional information is not required. When you receive your decision notice, information will be provided about options available if you disagree with our determination, including the opportunity for submitting new evidence you would like us to consider. PROGRAM OF GENERAL CAREGIVER SUPPORT SERVICES You may select to participate in the Program of General Caregiver Support Services (PGCSS) while your application for PCAFC is being evaluated. Services in PGCSS include:?? * Caregiver skills training and education, both online and in-person * Coaching, supportive counseling and support groups * Peer Support Mentoring * Information on and referrals to VA and community resources There is no application?needed for PGCSS.? If you are interested in learning more, please contact a member of your Caregiver Support Program Team. WE ARE HERE FOR YOU We look forward to working with you to determine how [place] may be able to support you and your caregiver(s). If you have any questions about this letter, PGCSS or other matters, please contact your CSP Team. Sincerely,? Caregiver Support Program Team? [facility] Enclosures: * Local [facility] Contact Information CC: Katie Pedro CC: Disabled [place] [employer] [facility] WHAT THE EVIDENCE MUST SHOW TO SUPPORT YOUR ELIGIBILITY FOR PCAFC (for applications submitted on or after July 19, 2022) If you are seeking benefits under the Program of Comprehensive for Family Caregivers, see the evidence table titled? To be eligible for a Family Caregiver Table 1 - Eligible Veterans and Service members To be approved and designated as a Family Caregiver Table 2 - Approval and Designation of Primary and Secondary Family Caregivers To be granted eligibility for the maximum monthly stipend rate Table 3 - Monthly Stipend Amount Evidence Tables Table 1 - Eligible Veterans and Service members (38 CFR 71.20 and 38 U.S.C. 1720G(a)(2)(C)(ii) and (iii)) To wendy an application for PCAFC, the evidence must show: The individual: * Is either a or a member of the Armed Forces undergoing a medical discharge from the Armed Forces, and * Has a serious injury incurred or aggravated in the line of duty in the active , naval, or air service during any service era, and * Is in need of personal care services for a minimum of six continuous months based on any one of the following three criteria: o an inability to perform an activity of daily living each time he or she completes one of the following: * Dressing or undressing oneself; * Bathing * Grooming oneself in order to keep oneself clean and presentable * Adjusting any special prosthetic or orthopedic appliance, that by reason of the particular disability, cannot be done without assistance (this does not include the adjustment of appliances that nondisabled persons would be unable to adjust without aid, such as supports, belts, lacing at the back, etc.) * Toileting or attending to toileting * Feeding oneself due to loss of coordination of upper extremities, extreme weakness, inability to swallow, or the need for a non-oral means of nutrition * Mobility (walking, going up stairs, transferring from bed to chair, etc.) o a need for supervision or protection based on symptoms or residuals of neurological or other impairment or injury o a need for regular or extensive instruction or supervision without which the ability of the to function in daily life would be seriously impaired And, * It is in the best interest of the individual to participate in the program, and * Personal care services that would be provided by the Family Caregiver will not be simultaneously and regularly provided by or through another individual or entity, and * The individual receives care at home or will do so if [place] designates a Family Caregiver, and * The individual receives ongoing care from a primary care team or will do so if [place] designates a Family Caregiver. Table 2 - Approval and Designation of Primary and Secondary Caregivers (38 CFR 71.25) To be approved and designated as a Family Caregiver, the Family Caregiver Applicant must meet all of the following: * Submit a joint application, along with the [place] or human resources team member * Participate in and complete necessary eligibility evaluations (along with the or human resources team member), education and training, and the initial home-care assessment * Be at least 18 years of age * Be either the eligible [place]'s spouse, son, daughter, parent, step- family member or extended family member; or someone who lives with the eligible full-time or will do so if designated as a Family Caregiver * Have had no determination by [place] of abuse or neglect of the eligible [place] * Be assessed by [facility] as being able to complete caregiver education and training * Complete caregiver training and demonstrate the ability to carry out the specific personal care services, core competencies, and additional care requirements * Participate in an in-home care assessment which evaluates the [place]'s well-being, the well-being of the caregiver and the caregiver's competence to provide personal care services at the eligible 's home Table 3 - Monthly Stipend Amount (38 CFR 71.40(C)(4)(i)(A)(1-2) and 1720G(a) (2)(C)(ii) and (iii)) Upon approval and designation, Primary Family Caregivers will receive a monthly stipend for each month's participation as a Primary Family Caregiver. If the eligible [place] meets the requirements identified in Table 1, the monthly stipend is calculated by multiplying the monthly stipend rate by 0.625. If the eligible [place] is determined by [place] to be unable to self-sustain in the community, the Primary Family Caregiver's monthly stipend is calculated by multiplying the monthly stipend rate by 1.00. * Unable to self-sustain in the community means the eligible [place] was assessed to: o Require personal care services each time he or she completes three or more of the seven ADLs listed in the definition of an inability to perform an ADL in 38 C.F.R. 71.15, and is fully dependent on a caregiver to complete such ADLs; and/or o Has a need for supervision or protection based on symptoms or residuals of neurological or other impairment or injury on a continuous basis (definition from [facility] [place] [place] 1720G(a)(2)(C)(ii), continuous basis from 38 C.F.R. 71.15 definition of unable to self-sustain ); and/or o Has a need for regular or extensive instruction or supervision without which the ability of the to function in daily life would be seriously impaired on a continuous basis (from [facility] [place] 1720G(a)(2)(C)(iii), continuous basis from 38 C.F.R. 71.15 definition of unable to self- sustain ). /gaetano/ KENDALL WAYNE SPECIAL DUTY NURSE Signed: 06/03/2024 11:54 [facility] ([id number])
--- OUTSIDE RECORDS SUMMARY | 2024-11-01 08:02 | XMS_ITS | Encounter Summary ---
Author Name [facility] [place] Organization [facility] [place] Address [address] [place] [address] Care Team Providers Care Superintendent Overhead Distribution Name Role Phone ELIZABET ROBINS Primary Care [...] Paul [facility]LY [facility] CE ORGANIZ [facility] AC Apr 18, 2018 [id number] WILLIS,MAR JUDITH SPOUSE ANTHEM BCBS OF [place] (BLUECARD) [facility]GAN[facility] Apr 18, 2018 [id number] WILLIS,MAR JUDITH SPOUSE BCBS [facility] CE ORGANIZ [facility] E Apr 18, 2018 [id number] [phone] WILLIS,MAR JUDITH SPOUSE BCBS OF [facility] CE ORGANIZ [facility] Apr 18, 2018 [id number] [phone] WILLIS,MAR JUDITH PATIENT BCBS OF [facility] CE ORGANIZ [facility] Apr 18, 2018 [id number] WILLIS,MAR JUDITH SPOUSE BCBS OF [place] PREFERRED PROVIDER ORGANIZAT ION (PPO) [facility] AC Apr 18, 2018 [id number] WILLIS,MAR JUDITH SPOUSE BCBS OF [facility] CE ORGANIZ [facility] ACT Apr 18, 2018 [id number] WILLIS,MAR JUDITH SPOUSE BCBS OF [facility] CE ORGANIZ [facility] AC Apr 18, 2018 [id number] WILLIS,MAR JUDITH SPOUSE [place] PRESCRIPT ION RX22M B Oct 19, 2022 [id number] [phone] WILLIS,MAR JUDITH SPOUSE [place] PRESCRIPT ION RX22M A Oct 19, 2022 RX22MA [id number] WILLIS,LAVELLE AEL PATIENT [place] PRESCRIPT ION RX22M B Oct 19, 2022 RX22MB [id number] WILLIS,LAVELLE AEL PATIENT [place] PRESCRIPT ION [facility] AC Oct 19, 2022 RX22MB [id number] WILLIS,LAVELLE AEL SPOUSE [place] PRESCRIPT ION RX Oct 19, 2022 RX22MB [id number] WILLIS,MAR JUDITH SPOUSE [place] PRESCRIPT ION BCBS OF [place] Oct 19, 2022 RX22MA [id number] WILLIS, SPOUSE [place] ([id number]) PRESCRIPT I[place] Oct 19, 2022 [id number] WILLIS,MAR JUDITH SPOUSE [place] BC[place] ([facility] CE ORGANIZ [facility] AC Apr 18, 2018 [phone] WILLIS,EDILBERTO SOTELOZA SPOUSE [employer] PRESCRIPT I[place] 2018 L4TA [id number] WILLIS,EDILBERTO JUDITH SPOUSE [employer] ([id number]) PRESCRIPT ION Apr 18, 2018 L4TA [id number] WILLIS,EDILBERTO JUDITH SPOUSE [employer] ([id number]) PRESCRIPT ION L4TA* Apr 18, 2020 L4TA [id number] WILLISEDILBERTOA SPOUSE [employer] ([id number]) PRESCRIPT ION L4TA Apr 18, 2018 L4TA [id number] WILLIS,EDILBERTO SOTELOZA SPOUSE [employer] ([id number]) PRESCRIPT ION L4TA* Apr 18, 2018 L4TA [id number] WILLIS,EDILBERTO PALAFOXA SPOUSE [employer] ([id number]) PRESCRIPT ION Apr 18, 2018 L4TA [id number] 32 WILLISEDILBERTO SPOUSE [employer] ([id number]) PRESCRIPT ION Apr 18, 2018 L4TA [id number] WILLIS,EDILBERTO WONG SPOUSE [employer]-MINOR [employer]OG[place] PRESCRIPT ION BCBS OF [place] Apr 18, 2020 L4TA [id number] WILLIS,EDILBERTO WONG SPOUSE [facility] CE ORGANIZAT ION W/OUT OF NETWORK BENEFITS [facility] Apr 18, 2018 [id number] WILLISEDILBERTO SPOUSE [place] BCBS [facility] (BLUECARD) [facility] CE ORGANIZAT ION [facility] AC Apr 18, 2018 [id number] WILLIS,EDILBERTO WONG SPOUSE MEDICARE (WNR) MEDICARE (M) PART A Mar 19, 1990 PART A [id number] WILLISLAVELLE AEL PATIENT MEDICARE (WNR) MEDICARE (M) PART A Mar 19, 1990 PART A [id number] WILLIS,LAVELLE AEL PATIENT MEDICARE (WNR) MEDICARE (M) PART A Mar 19, 1990 PART A [id number] WILLIS,LAVELLE AEL PATIENT MEDICARE (WNR) MEDICARE (M) PART A Mar 19, 1990 PART A [id number] WILLIS,LAVELLE AEL PATIENT MEDICARE (WNR) MEDICARE (M) PART A Mar 19, 1990 PART A [id number] WILLIS,LAVELLE AEL PATIENT MEDICARE (WNR) MEDICARE (M) PART A Mar 19, 1990 PART A [id number] WILLIS,LAVELLE AEL PATIENT MEDICARE (WNR) MEDICARE (M) PART A Mar 19, 1990 PART A [id number] WILLIS,LAVELLE AEL PATIENT MEDICARE (WNR) MEDICARE (M) PART A Mar 19, 1990 PART A [id number] [phone] WILLIS,LAVELLE AEL PATIENT MEDICARE (WNR) MEDICARE (M) PART A Mar 19, 1990 PART A [id number] [phone] WILLIS,LAVELLE AEL PATIENT MEDICARE (WNR) MEDICARE (M) PART A Mar 19, 1990 PART A [id number] WILLIS,LAVELLE AEL PATIENT MEDICARE (WNR) MEDICARE (M) PART A Mar 19, 1990 PART A [id number] WILLIS,LAVELLE AEL PATIENT Selected Encounter This section includes the information on record at DC for the Encounter. Date/Time Encounter Type Encounter Description Reason Provider Source Jun 01, 2024 11:30 AM OFFICE O/P EST MOD 30 MIN PRIMARY CARE/MEDICINE ICD-10-CM K75.81 Nonalcoholic steatohepatitis (CHAKRABORTY) ELIZABET ROBINS IHBaldev Encounter Template Text not used by DC Assessments - Encounter Diagnoses This section includes the primary and secondary diagnoses documented for the Encounter. Date/Time Primary/Secondary Diagnosis Diagnosis Name Provider Source Jun 25, 2024 11:36 AM PRIMARY Nonalcoholic steatohepatitis (CHAKRABORTY) JULIENNEELIZABET YANEZ [facility] [place] [facility] Jun 25, 2024 11:36 AM SECONDARY Alcohol dependence, in remission JULIENNEELIZABET [facility] [place] [facility] Jun 25, 2024 11:36 AM SECONDARY Galeas's esophagus without dysplasia JULIENNEELIZABET [facility] [place] [facility] Jun 25, 2024 11:36 AM SECONDARY Calculus of kidney JULIENNEELIZABET [facility] [place] [facility] Jun 25, 2024 11:36 AM SECONDARY Essential (primary) hypertension JULIENNEELIZABET [facility] [place] [facility] Jun 25, 2024 11:36 AM SECONDARY Male erectile dysfunction, unspecified JULIENNE,ELIZABET PRADO [facility] [place] [facility] Jun 25, 2024 11:36 AM SECONDARY Post-traumatic stress disorder, chronic JULIENNEELIZABET [facility] [place] [facility] Jun 25, 2024 11:36 AM SECONDARY Sleep apnea, unspecified JULIENNE,ELIZABET PRADO [facility] [place] [facility] Plan of Treatment: Future Appointments (+ 6 months) and Future Tests (+/- 45 days) The Plan of Treatment section includes future care activities for the patient [facility] This section includes future appointments and future orders which are active, pending or scheduled. Future Appointments This section includes appointments that were scheduled to occur 6 months from the date of the Encounter, up to a maximum of 20 appointments. The data comes from all DC treatment facilities. Appointment Date/Time Appointment Type Appointme nt Facility Name Jun 28, 2024 11:30 AM AMBULATORY - MEDICINE [facility] [place] [facility] Jul 08, 2024 10:30 AM AMBULATORY - MEDICINE [facility] [place] [facility] Jul 13, 2024 09:30 AM AMBULATORY - MEDICINE [facility] [place] [facility] Aug 12, 2024 09:30 AM AMBULATORY - MEDICINE [facility] [place] [facility] Aug 22, 2024 09:00 AM AMBULATORY - MEDICINE [facility] [place] [facility] Sep 21, 2024 09:00 AM [facility] Sep 21, 2024 10:00 AM AMBULAT[facility] Nov 28, 2024 09:30 AM AMBULATORY [facility] Dec 02, 2024 08:30 AM AMBULATORY - MEDICINE [facility] Active, Pending, and Scheduled Orders This section includes a listing of several types of active, pending, and scheduled orders, including clinic medications orders, diagnostic test orders, procedure orders and consult orders; where the start date of the order is 45 days before the date of the Encounter or 45 days after the date of theEncounter. The data comes from all DC treatment facilities. Test Date/Time Test Type Test Details Facility Name Jul 13, 2024 09:58 AM Consult Order PODIATRY/N HM OUTPT Cons Production Line Manager's Choice [facility] Lab Results: +/- 30 days of the encounter This section includes the Chemistry and Hematology Lab Results on record with DC for the patient. Radiology Reports and Pathology Reports are provided separately, in subsequent sections. Lab Results This section contains the Chemistry/Hematology Results that were resulted 30 days before or 30 daysafter the date of the Encounter. Date/Time Source Result Type Result - Unit Interpretation Reference Range Comment Jun 01, 2024 12:25 PM [facility] MICROALBUMIN CREATININE RATIO PANEL Specimen Type: URINE No comment entered. Ordering Provider: LINDA PERSON Report Released Date/Time: Jun 01, 2024 11:53 AM Reporting Lab: [facility] [address] [facility] [address] Performing Lab: [facility] [address] [facility] [address] MICROALBUMIN/C REATININE RATIO 10.8 mg/g 0-29.9 MICROALBUMIN,Q UANTITATIVE 1.1 mg/dL RR UNAVAIL CREATININE URINE 101.63 mg/dL Jun 01, 2024 10:38 AM [facility] HEMOGLOBIN A1C PANEL Specimen Type: BLOOD Comment: [...] May 30, 2024 10:29 AM Reporting Lab: [address] [address] Performing Lab: [address] [address] HEMOGLOBIN A1C 5.8 H 4.0-5.6 Jun 01, 2024 10:38 AM [facility] BASIC METABOLIC PANEL (non-fasting) Specimen Type: SERUM No comment entered. Ordering Provider: LINDA PERSON Report Released Date/Time: May 30, 2024 10:29 AM Reporting Lab: [address] [address] Performing Lab: [address] [address] UREA NITROGEN 13 mg/dL 7-25 GLUCOSE 115 mg/dL H 65-100 SODIUM 140 mmol/L 135-145 POTASSIUM 4.3 mmol/L 3.5-5.0 CHLORIDE 107 mmol/L 100-110 CO2 21 meq/L 20-30 CREATININE, Serum 0.84 mg/dL 0.50-1.40 eGFR(CKD-EPI 2020) >90 mL/min >60 Jun 01, 2024 10:38 AM [facility] LIPID PANEL, NON FASTING Specimen Type: SERUM No comment entered. Ordering Provider: LINDA PERSON Report Released Date/Time: Jun 01, 2024 10:12 AM Reporting Lab: [address] [address] Performing Lab: [address] [address] CHOLESTEROL 126 mg/dL TRIGLYCERIDE 114 mg/dL 0-150 LDL calculated 60 mg/dL 0-129 CHOL/HDL 2.9 HDL CHOLESTEROL 43 mg/dL 40-60 Vital Signs: All taken on the encounter date This section contains inpatient and outpatient Vital Signs collected on the date of the Encounter. Date/Time Temperature Pulse Blood Pressure Respiratory Rate SP02 Pain Height Weight Body Mass Index Source Jun 01, 2024 11:29 AM 97.8 93 138/86 16 96 0 215 36 [facility] [place] [facility] Social History: Smoking Status (Most current) and Tobacco Use (All prior to encounter date) This section includes the most current, and the historical, smoking and tobacco- related health factors from the DC facility where the Encounter took place. Current Smoking Status This section includes the most current smoking, or tobacco-related health factor, from the DC facility where the Encounter took place. Date/Time Current Smoking Status Comment [facility] Nov 27, 2023 11:00 AM VA-TOBACCO FORMER USER [facility] [place] [facility] Tobacco Use History This section includes a history of the smoking, or tobacco-related health factors, that were collected on or before the date of the Encounter. The data comes from the DC facility where the Encounter took place. Date/Time Smoking Status/Tobac co Use Comment Facility Nov 27, 2023 11:00 AM VA-TOBACCO QUIT 15 YRS OR MORE [facility] [place] [facility] Dec 02, 2022 08:00 AM VA-TOBACCO FORMER USER [facility] [place] [facility] Dec 02, 2022 08:00 AM VA-TOBACCO QUIT 15 YRS OR MORE [facility] [place] [facility] Nov 05, 2021 10:30 AM VA-TOBACCO FORMER USER [facility] [place] [facility] Nov 05, 2021 10:30 AM VA-TOBACCO QUIT 1 TO < 5 YRS [facility] [place] [facility] Sep 14, 2020 02:00 PM VA-TOBACCO FORMER USER [facility] [place] [facility] Sep 14, 2020 02:00 PM VA-TOBACCO QUIT 5 TO < 15 YRS [facility] [place] [facility] Jan 22, 2018 03:40 PM QUIT TOBACCO USE > 7 YEARS AGO [facility] [place] [facility] Jun 04, 2016 02:01 PM CURRENT SMOKER been smoking pass 20 yrs [facility] [place] [facility] Jun 04, 2016 02:01 PM V1-PT DECLINES REF TO TOBACCO CESS PRGM [facility] Jun 04, 2016 02:01 PM V1-PT THINKING ABOUT QUIT TOBACCO USE [facility] Jul 18, 2014 03:31 PM V1-PT DECLINES REF TO TOBACCO CESS PRGM [facility] Jul 18, 2014 03:31 PM V1-PT DECLINES TOBACCO CESSATION MEDS [facility] Jul 18, 2014 03:31 PM V1-PT NOT INTERESTED IN QUIT TOBACCO USE [facility] Jan 09, 2014 10:43 AM CURRENT SMOKER pt smokes 1 pk of cigarettes per day. [facility] Jan 09, 2014 10:43 AM V1-PT THINKING ABOUT QUIT TOBACCO USE [facility] Aug 28, 2003 10:47 AM CURRENT SMOKER one pack q 6 days - he has cut down from 3 PPD. He is in the process of quitting [facility] Encounter Notes: All associated encounter notes This section contains the clinical notes associated to the Encounter. Date/Time Encounter Note(s) Provider Source Jun 01, 2024 11:56 AM PRIMARY CARE NURSE PRACTITIONER OUTPATIENT NOTE: LOCAL TITLE: NURSE PRACTITIONER OUTPATIENT NOTE STANDARD TITLE: PRIMARY CARE NURSE PRACTITIONER OUTPATIENT NOTE DATE OF NOTE: JUN 01, 2024@11:56 ENTRY DATE: JUN 01, 2024@11:56:15 AUTHOR: ELIZABET ROBINS EXP COSIGNER: URGENCY: STATUS: COMPLETED Pt is a 68 who comes in for follow up of medical problems as noted below. HPI: Nephrolithiasis just had lithotripsy this past winter Follows with Dr Simmons and has appt to do 24hour urine and follow-up in a month Type II DM follows with CPP Cont. Atorva for risk reduction Currently on metformin FAMILIA In remission, Encouraged and praised continued Sobriety PTSD stable no MH needed at this time he is going through grieving lost a few siblings but coping well through God and his declines wanting MH ANASTASIA does not tolerate a CPAP he is well aware of the risk of untreated ANASTASIA HTN BP controlled takes Amlodipine 10mg daily Rhinitis Takes Levocetirizine Galeas's esophagus takes famotidine at night SZ Has been SZ free over last few years he sees neurology annually Fatty liver Stable, does not drink and no hepatoxic medications monitor LFTs only new concern is having is inability to get and maintain erection and he and finding that frustating they both are asking for viagra to try PMH: Active problems - Computerized Problem List [...] caused by toxin 12. Diverticulosis [address] [facility] 13. Galeas's esophagus EGD 09/02/16 Dr. Hampton 14. Rosacea 15. Deep venous thrombosis of upper extremity LUE, basilic vein 16. Nephrolithiasis On CT at [facility] 02/07/2015. 17. Hyperlipidemia Total chol/HDL/LDL/trigs: 154/41/84/145 (04/08/22). F/U to discuss statin w/ T2DM 18. Lower urinary tract symptoms due to benign prostatic hypertrophy (SNOMED CT PSA normal (04/08/22) 19. Family history of prostate cancer Father and three brothers. 20. Schizoaffective disorder (SNOMED CT [id number]) 21. Alcohol Dependence episodic 22. Periodontal Disease NEC 23. GERD 24. 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 REFRACTION DISORDER NOS Allergies: AKWA TEARS, [...] ACTIVE MOUTH AT BEDTIME FOR CHOLESTEROL 6) DM 10/GUAIFENESN 100MG/5ML (AF & SF) LIQ TAKE 5 MLS ACTIVE (ONE TEASPOONFUL) BY MOUTH EVERY 6 HOURS NEEDED FOR COUGH 7) DOXYCYCLINE HYCLATE 50MG CAP TAKE ONE CAPSULE BY ACTIVE MOUTH ONCE DAILY 8) FAMOTIDINE 20MG TAB TAKE ONE TABLET [...] DIABETES 14) METRONIDAZOLE 0.75% TOP GEL APPLY MODERATE AMOUNT ACTIVE TOPICALLY TWICE DAILY FOR ACNE ROSACEA 15) PEG 400 0.4%/PROP GLYCOL 0.3% OPH SOLN INSTILL 1 DROP ACTIVE INTO EACH EYE FOUR TIMES DAILY NEEDED DRY EYE Inactive Outpatient Medications Status 1) ACCU-CHEK GUIDE ME (GLUCOSE) METER USE METER TO TEST BLOOD SUGARS TWICE A WEEK NEEDED Active Non-VA Medications Status 1) Non-VA MULTIVITAMIN/MINERALS CAP/TAB ONE CAP/TAB BY ACTIVE MOUTH ONCE DAILY 2) Non-VA OTHER CAP/TAB THC BY MOUTH TWICE DAILY ACTIVE 18 Total Medications Allergies: AKWA TEARS, DIFLUCAN, PHENYTOIN, FLUOROMETHOLONE, REFRESH TEARS, OXYCODONE LEVETIRACETAM VITAL SIGNS: 97.8 F [36.6 C] (06/01/2024 11:29) 93 (06/01/2024 11:29) 16 (06/01/2024 11:29) 138/86 (06/01/2024 11:29) 0 (06/01/2024 11:29) 65 in [165.1 cm] (12/10/2023 09:52) 215 lb [97.52 kg] (06/01/2024 11:29) BMI: 35.9 ROS General: no fever, no unexplained weight loss or gain CV: denies CP, palpitations Lung: denies Dyspnea or wheezing Abd: denies n/v/d : denies dysuria, penile d/c, hematuria Ext: denies edema Psych: denies SI Neuro: denies dizziness, falls, MENDOZA PHYSI KACI EXAM GENERAL: well appearing in NAD, speaking in clear sentences. SKIN: Clean, dry intact no rashes , lesions or nodules observed. RESP: CTAB, no wheezing or Rales. Cards: S1 S2 RRR, No m/r/g no JVD, No Pedal Edema, Distal Pulses palpable NEURO CN II-XII grossly intact, gait steady without shuffle MENTAL A&Ox3 Appropriate, Pleasant, Cooperative LAB RESULTS LAST 1440 HRS - NONE FOUND Future Clinic Visits 09/21/2024 10:00 CWM/NO/OPTOMETRY/MERHAR ASSESSMENT AND PLAN: #Nephrolithiasis -Follows with Dr Simmons and has appt to do 24hour urine and follow-up in a month #Type II DM -follows with CPP #FAMILIA -In remission -Encouraged and praised continued Sobriety #PTSD stable no MH needed at this time -has crisis and WIC contact #ANASTASIA -declined CPAP -well aware of the risk of untreated ANASTASIA #HTN BP -controlled Cont. Amlodipine 10mg daily #Rhinitis -Cont. Levocetirizine #Barretts esophagus -Cont. famotidine at night #SZ -SZ free -Follows neurology annually #Fatty liver -Stable -monitor LFTs #ED -Viagra ordered Return to clinic to see me in 6 months, RTC sooner if needed. Clinical Reminders Medication Reconciliation: Outpatient: Has the patient been taking medications as documented in the EMLR? YES: The patient has been taking medications as documented in the EMLR. Essential Medication List for Review used to complete this medication reconciliation. INCLUDED IN THIS LIST: Alphabetical list of active outpatient prescriptions dispensed from this [facility] (local) and dispensed from another DC or DoD facility (remote) as well as [...] with a VA or non-VA provider. /gaetano/ CIERRA GREGORY Nurse Practitioner Signed: 06/01/2024 12:26 ELIZABET ROBINS [facility] Jun 01, 2024 11:34 AM PREVENTIVE MEDICINE NURSING NOTE: LOCAL TITLE: CLINICAL REMINDERS/NURSING STANDARD TITLE: PREVENTIVE MEDICINE NURSING NOTE DATE OF NOTE: JUN 01, 2024@11:34 ENTRY DATE: JUN 01, 2024@11:34:58 AUTHOR: DEBBIE GORMAN EXP COSIGNER: URGENCY: STATUS: COMPLETED COVID-19 Immunization: Refused Moderna Monovalent COVID-19 vaccine Immunization: COVID-19 (MODERNA), MRNA, LNP-S, PF, 50 MCG/0.5 ML (AGES 12+ YEARS) Refusal Reason: PATIENT DECISION Patient refuses all immunization(s) in the COVID-19 group Date Documented: 06/01/24 11:35 PAVE Foot Check: A complete foot check was completed at this encounter. VISUAL INSPECTION: Includes inspection for skin breaks, deformity, erythema, trauma, pallor on elevation, dependent rubor, nail deformities, extensive callus and pitting edema. Visual exam results: Normal PEDAL PULSES: Includes palpation of dorsalis and posterior tibial pulses and signs/symptoms of vascular compromise like pain, pallor, parasthesia or paralysis. Present (even if diminished) SENSORY CHECK: Includes 10 gram Monofilament (Roscoe-Linette) test of sensation. Intact (Greater than or equal to 80% of sites checked) Abnormal (Less than 80% of sites checked): Intact LOW-RISK: LOW RISK INFORMATION PROVIDED: 1. Advised patient not to walk barefoot. 2. Explained the importance of daily foot checks for changes. 3. Stressed the importance of daily foot hygiene, including bathing and complete drying. The patient verbalized understanding and was offered a detailed handout on diabetic foot care. /jerry GORMAN, MSN, RN, CNL PRIMARY CARE TEAM NURSE Signed: 06/01/2024 11:36 DEBBIE GORMAN [facility]
--- OUTSIDE RECORDS SUMMARY | 2024-11-01 08:02 | XMS_ITS | Encounter Summary ---
Author Name [facility] [place] [facility] [place] Address [address] [place] [address] Care Team Providers Care Truck Spotter Name Role Phone ELIZABET ROBINS Primary Care [...] [facility] CE ORGANIZ [facility] AC Apr 18, 2018 [id number] [phone] WILLIS,MAR JUDITH SPOUSE ANTHEM BCBS OF [place] ([place]ARD) [facility] CE ORGANIZ [facility] Apr 18, 2018 [id number] WILLIS,MAR JUDITH SPOUSE BCBS [facility] CE ORGANIZ [facility] SHARE ACTIV E Apr 18, 2018 [id number] WILLIS,MAR JUDITH SPOUSE BCBS [facility] ORGANIZ [facility] Apr 18, 2018 [id number] WILLIS,MAR JUDITH PATIENT BCBS OF [facility] CE ORGANIZ BRENDA MCCABE [facility] Apr 18, 2018 [id number] WILLIS,MAR JUDITH SPOUSE BC[place] OF [place] PREFERRED PROVIDER ORGANIZAT ION (PPO) BRENDA MCCABE [facility] AC Apr 18, 2018 [id number] WILLIS,MAR JUDITH SPOUSE BCBS OF [facility] CE ORGANIZ BRENDA MCCABE [facility] ACT Apr 18, 2018 [id number] WILLIS,MAR JUDITH SPOUSE BCBS OF [facility] CE ORGANIZ BRENDA MCCABE [facility] AC Apr 18, 2018 [id number] [phone] WILLIS,MAR JUDITH SPOUSE [place] PRESCRIPT ION BRENDA MCCABE [facility] AC Oct 19, 2022 [id number] WILLIS,LAVELLE AEL SPOUSE CAREMARK PRESCRIPT ION RX22M A Oct 19, 2022 [id number] WILLIS,LAVELLE AEL PATIENT CAR[place] PRESCRIPT ION RX22M B Oct 19, 2022 [id number] WILLIS,LAVELLE AEL PATIENT [place] PRESCRIPT ION BCBS OF [place] Oct 19, 2022 [id number] WILLIS, SPOUSE CAREMARK PRESCRIPT ION RX22M B Oct 19, 2022 [id number] [phone] WILLIS,MAR JUDITH SPOUSE [place] PRESCRIPT ION RX Oct 19, 2022 [id number] [phone] WILLIS,MAR JUDITH SPOUSE [place] ([id number]) PRESCRIPT ION [place] Oct 19, 2022 [id number] [phone] WILLIS,MAR JUDITH SPOUSE [place] BCBS ([facility] CE ORGANIZ [facility] AC Apr 18, 2018 [id number] WILLIS,EDILBETRO SOTELOZA SPOUSE [employer] [place] PRESCRIPT ION [place] 2018 L4TA [id number] WILLIS,EDILBERTO SOTELOZA SPOUSE [employer] ([id number]) PRESCRIPT ION Apr 18, 2018 L4TA [id number] WILLIS,EDILBERTO SOTELOZA SPOUSE [employer] ([id number]) PRESCRIPT ION L4TA* Apr 18, 2020 L4TA [id number] WILLIS,EDILBERTO PALAFOXA SPOUSE [employer] ([id number]) PRESCRIPT ION L4TA* Apr 18, 2018 L4TA [id number] WILLIS,EDILBERTO PALAFOXA SPOUSE [employer] ([id number]) PRESCRIPT ION L4TA Apr 18, 2018 L4TA [id number] WILLIS,EDILBERTO SOTELOZA SPOUSE [employer] ([id number]) PRESCRIPT ION Apr 18, 2018 L4TA [id number] WILLISEDILBERTO SPOUSE [employer] ([id number]) PRESCRIPT ION Apr 18, 2018 L4TA [id number] WILLIS,EDILBERTO WONG SPOUSE EXPRESS SCR[employer]TS-MINOR BROGATION PRESCRIPT ION [place]BS OF [place] Apr 18, 2020 L4TA [id number] WILLIS,EDILBERTO WONG SPOUSE [facility] CE ORGANIZAT ION W/OUT OF NETWORK BENEFITS [facility] ACT Apr 18, 2018 [id number] WILLISEDILBERTO SPOUSE [place] BCBS [facility] (BLUECARD) [facility] CE ORGANIZAT ION [facility] AC Apr 18, 2018 [id number] [phone] WILLISEDILBERTO SPOUSE MEDICARE (WNR) MEDICARE (M) PART A Mar 19, 1990 PART A [id number] [phone] WILLISLAVELLE AEL PATIENT MEDICARE (WNR) MEDICARE (M) PART A Mar 19, 1990 PART A [id number] [phone] WILLIS,LAVELLE AEL PATIENT MEDICARE (WNR) MEDICARE (M) PART A Mar 19, 1990 PART A [id number] [phone] WILLIS,LAVELLE AEL PATIENT MEDICARE (WNR) MEDICARE (M) PART A Mar 19, 1990 PART A [id number] WILLIS,LAVELLE AEL PATIENT MEDICARE (WNR) MEDICARE (M) PART A Mar 19, 1990 PART A [id number] [phone] WILLIS,LAVELLE AEL PATIENT MEDICARE (WNR) MEDICARE (M) PART A Mar 19, 1990 PART A [id number] WILLIS,LAVELLE AEL PATIENT MEDICARE (WNR) MEDICARE (M) PART A Mar 19, 1990 PART A [id number] WILLIS,LAVELLE AEL PATIENT MEDICARE (WNR) MEDICARE (M) PART A Mar 19, 1990 PART A [id number] WILLIS,LAVELLE AEL PATIENT MEDICARE (WNR) MEDICARE (M) PART A Mar 19, 1990 PART A [id number] WILLIS,LAVELLE AEL PATIENT MEDICARE (WNR) MEDICARE (M) PART A Mar 19, 1990 PART A [id number] WILLIS,LAVELLE AEL PATIENT MEDICARE (WNR) MEDICARE (M) PART A Mar 19, 1990 PART A [id number] [phone] WILLIS,LAVELLE AEL PATIENT Selected Encounter This section includes the information on record at [place] for the Encounter. Date/Time Encounter Type Encounter Description Reason Provider Source Jun 01, 2024 10:00 AM MTMS BY PHARM AWILDA 15 MIN CLINICAL PHARMACY ICD-10-CM E11.9 Type 2 diabetes mellitus without complications EMILY PERSON Encounter Template Text not used by [place] Assessments - Encounter Diagnoses This section includes the primary and secondary diagnoses documented for the Encounter. Date/Time Primary/Secondary Diagnosis Diagnosis Name Provider Source Jun 01, 2024 02:05 PM PRIMARY Type 2 diabetes mellitus without complications EMILY PERSON [place] [facility] [place] [facility] Plan of Treatment: Future Appointments (+ 6 months) and Future Tests (+/- 45 days) The Plan of Treatment section includes future care activities for the patient from [facility] [place] [facility]. This section includes future appointments and future orders which are active, pending or scheduled. Future Appointments This section includes appointments that were scheduled to occur 6 months from the date of the Encounter, up to a maximum of 20 appointments. The data comes from all [facility]. Appointment Date/Time Appointment Type Appointme nt Facility Name Jun 28, 2024 11:30 AM AMBULATORY - MEDICINE [facility] [place] [facility] Jul 08, 2024 10:30 AM AMBULATORY MEDICINE [facility] [place] [facility] Jul 13, 2024 09:30 AM AMBULATORY MEDICINE [place] [facility] [place] [facility] Aug 12, 2024 09:30 AM AMBULATORY MEDICINE [place] [facility] [place] [facility] Aug 22, 2024 09:00 AM AMBULATORY - MEDICINE [place] [facility] [place] [facility] Sep 21, 2024 09:00 AM AMBULATORY - MEDICINE [place] [facility] [place] [facility] Sep 21, 2024 10:00 AM AMBULATORY MEDICINE [place] [facility] [place] [facility] Nov 28, 2024 09:30 AM AMBULATORY MEDICINE [place] [facility] [place] [facility] Dec 02, 2024 08:30 AM [facility] Active, Pending, and Scheduled Orders This section includes a listing of several types of active, pending, and scheduled orders, including clinic medications orders, diagnostic test orders, procedure orders and consult orders; where the start date of the order is 45 days before the date of the Encounter or 45 days after the date of theEncounter. The data comes from all [facility]. Test Date/Time Test Type Test Details Facility Name Jul 13, 2024 09:58 AM Consult Order PODIATRY/N HM OUTPT Cons Gerontological Nurse Practitioner's Choice [facility] Lab Results: +/- 30 days of the encounter This section includes the Chemistry and Hematology Lab Results on record with [place] for the patient. Radiology Reports and Pathology Reports are provided separately, in subsequent sections. Lab Results This section contains the Chemistry/Hematology Results that were resulted 30 days before or 30 daysafter the date of the Encounter. Date/Time Source Result Type Result - Unit Interpretation Reference Range Comment Jun 01, 2024 12:25 PM [facility] MICROALBUMIN CREATININE RATIO PANEL Specimen Type: URINE No comment entered. Ordering Provider: EMILY PERSON Report Released Date/Time: Jun 01, 2024 11:53 AM Reporting [facility] [address] Performing Lab: [address] [address] MICROALBUMIN/C REATININE RATIO 10.8 mg/g 0-29.9 MICROALBUMIN,Q UANTITATIVE 1.1 mg/dL RR UNAVAIL CREATININE URINE 101.63 mg/dL Jun 01, 2024 10:38 AM [facility] HEMOGLOBIN A1C PANEL Specimen Type: BLOOD Comment: Values obtained from A1C measurements can vary. For atypical A1C assays, a reported value of 7.0 could actually be between 6.72 and 7.28 if measured by a reference method. A reported value of 9.0 could actually be between 8.73 and 9.27. Ref: http://www.ngs p.org/CAPdata. asp Ordering Provider: EMILY PERSON Report Released Date/Time: May 30, 2024 10:29 AM Reporting Lab: [address] [address] Performing Lab: [address] [address] HEMOGLOBIN A1C 5.8 H 4.0-5.6 Jun 01, 2024 10:38 AM [facility] BASIC METABOLIC PANEL (non-fasting) Specimen Type: SERUM No comment entered. Ordering Provider: EMILY PERSON Report Released Date/Time: May 30, 2024 10:29 AM Reporting Lab: [address] [address] Performing Lab: [facility] [address] [address] UREA NITROGEN 13 mg/dL 7-25 GLUCOSE 115 mg/dL H 65-100 SODIUM 140 mmol/L 135-145 POTASSIUM 4.3 mmol/L 3.5-5.0 CHLORIDE 107 mmol/L 100-110 CO2 21 meq/L 20-30 CREATININE, Serum 0.84 mg/dL 0.50-1.40 eGFR(CKD-EPI 2020) >90 mL/min >60 Jun 01, 2024 10:38 AM [facility] LIPID PANEL, NON FASTING Specimen Type: SERUM No comment entered. Ordering Provider: EMILY PERSON Report Released Date/Time: Jun 01, 2024 10:12 AM Reporting Lab: [address] [address] Performing Lab: [address] [address] CHOLESTEROL 126 mg/dL TRIGLYCERIDE 114 mg/dL 0-150 [...] 93 138/86 16 96 0 215 36 [facility] Social History: Smoking Status (Most current) [...] Enrique shannon Nov 27, 2023 11:00 AM MT-TOBACCO FORMER USER [facility] Tobacco Use History This section includes a history of the smoking, or tobacco-related health factors, that were collected on or before the date of the Encounter. The data comes from the [place] facility where the Encounter took place. Date/Time Smoking Status/Tobac co Use Comment Facility Nov 27, 2023 11:00 AM VA-TOBACCO QUIT 15 YRS OR MORE [facility] [place] [facility] Dec 02, 2022 08:00 AM VA-TOBACCO FORMER USER [facility] [place] [facility] Dec 02, 2022 08:00 AM VA-TOBACCO QUIT 15 YRS OR MORE [facility] [place] [facility] Nov 05, 2021 10:30 AM VA-TOBACCO FORMER USER [facility] Nov 05, 2021 10:30 AM VA-TOBACCO QUIT 1 TO < 5 YRS [facility] [place] [facility] Sep 14, 2020 02:00 PM VA-TOBACCO FORMER USER [facility] Sep 14, 2020 02:00 PM VA-TOBACCO QUIT 5 TO < 15 YRS [facility] [place] [facility] Jan 22, 2018 03:40 PM QUIT TOBACCO USE > 7 YEARS AGO [facility] [place] [facility] Jun 04, 2016 02:01 PM CURRENT SMOKER been smoking pass 20 yrs [facility] Jun 04, 2016 02:01 PM V1-PT DECLINES REF TO TOBACCO CESS PR[facility] Jun 04, 2016 02:01 PM V1-PT THINKING ABOUT QUIT TOBACCO USE [facility] [place] [facility] Jul 18, 2014 03:31 PM V1-PT DECLINES REF TO TOBACCO CESS PRGM [facility] Jul 18, 2014 03:31 PM V1-PT DECLINES TOBACCO CESSATION MEDS [facility] Jul 18, 2014 03:31 PM V1-PT NOT INTERESTED IN QUIT TOBACCO USE [facility] [place] [facility] Jan 09, 2014 10:43 AM CURRENT SMOKER pt smokes 1 pk of cigarettes per day. [facility] [place] [facility] Jan 09, 2014 10:43 AM V1-PT THINKING ABOUT QUIT TOBACCO USE [facility] [place] [facility] Aug 28, 2003 10:47 AM CURRENT SMOKER one pack q 6 days - he has cut down from 3 PPD. He is in the process of quitting [facility] Encounter Notes: All associated encounter notes This section contains the clinical notes associated to the Encounter. Date/Time Encounter Note(s) Provider Source Jun 01, 2024 02:11 PM ADDENDUM: LOCAL TITLE: Addendum STANDARD TITLE: ADDENDUM DATE OF NOTE: JUN 01, 2024@14:11:19 ENTRY DATE: JUN 01, 2024@14:11:20 AUTHOR: EMILY PERSON COSIGNER: URGENCY: STATUS: COMPLETED Please mail letter with labs to patient, thanks! /gaetano/ EMILY PERSON PHARMD,[facility] CLINICAL PHARMACY PRACTITIONER Signed: 06/01/2024 14:11 Receipt Acknowledged By: 06/02/2024 08:18 /es/ CARLOS RIVAS Clinical Enrollment Advisor --- Original Document --- 06/01/24 PATIENT LETTER (B): CHAYA PEDRO [address], [place], [address] Date:JUN 01, 2024 Dear CHAYA PEDRO, Your A1c is well within goal of less than 7%. LDL (bad cholesterol) is also at goal. Your kidney function is well within normal limits. Please continue with your current medications as prescribed. SERUM Jun 01 Reference 2023 10:38 Units Ranges -- GLUCOSE 115 H mg/dL 65 - 100 BUN 13 mg/dL 7 - 25 CREATININE 0.84 mg/dL .5 - 1.4 eGFR(IDMS) Ref: >=60 CREAT mg/dL .5 - 1.5 eGFR See Eval Ref: See Eval Sodium 140 mmol/L 135 - 145 K+/Pot 4.3 mmol/L 3.5 - 5 CL 107 mmol/L 100 - 110 CO2 21 mEq/L 20 - 30 SERUM Jun 01 Reference 2023 10:38 Units Ranges -- CHOL 126 mg/dL <7 - 199 TRIG 114 mg/dL 0 - 150 HDL 43 mg/dL 40 - 60 LDL-d mg/dL <10 - 120 LDL 60 mg/dL 0 - 129 BLOOD Jun 01 Reference 2023 10:38 Units Ranges HGB-A1c 5.8 H % 4 - 5.6 Jun 01, 2024@10:38 SERUM eGFR(CKD-EPI 2020): >90 mL/min Ref: >=60 Respectfully, JESUS Golden PharmD, JODI A [facility] [place] [facility] Jun 01, 2024 02:05 PM ADDENDUM: LOCAL TITLE: Addendum STANDARD TITLE: ADDENDUM DATE OF NOTE: JUN 01, 2024@14:05:24 ENTRY DATE: JUN 01, 2024@14:05:25 AUTHOR: EMILY PERSON EXP COSIGNER: URGENCY: STATUS: COMPLETED Will ask AMSA to please schedule patient for: [X] CWM/NO/PHARM/PACT 3 RTC order placed. Appointment Length: _30__ minutes. 09/21/24 @0900 Thank you! /gaetano/ EMILY PERSON PHARMD, [facility] CLINICAL PHARMACY PRACTITIONER Signed: 06/01/2024 14:05 Receipt Acknowledged By: 06/01/2024 14:31 /gaetano/ THANH LUCAS Advanced Etl Programmer --- Original Document --- 06/01/24 PHARMACY CLINIC NOTE: CHAYA PEDRO, 68 yo DECLINED TO ANSWER MALE, presents in office for follow up visit in regards to diabetes medication management. Pt was last contacted via telephone for apt on 02/17/24 in which no medication changes were made. Today, pt reports doing fairly well. He denies any diarrhea from metformin. He denies any recent hypoglycemia. He had a fall a few months ago d/t flashing in his eye that causes him to lose balance. He wears dark glasses to help prevent this from causing falls. Pt will go to lab after this apt. Then he will see PCP. Current diabetes medications: - metformin 1000 mg twice daily Medication Adherence: - takes daily Diet Patterns: patient eats on avg. 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 SMBG: Name: Chaya Pedro : 1955 ID: Information from [employer] [facility] on 06/01/2024 Patient Name: Chaya Pedro Date Range: 02/17/2024 - 06/01/2024 bG values are displayed in mg/dL # of tests 12 Average 119 SD 14.8 Highest 147 Lowest 98 Avg tests/day 0.1 # HI 0 # LO 0 <70 0.0% 70-220 100.0% >220 0.0% Hypos(<69) 0 Date Range: 02/17/2024 - 06/01/2024 bG values are displayed in mg/dL 00:00- :30- 08:00- 11:00- 12:30- 17:00- 18:30- :30- 05:30 08:00 11:00 12:30 17:00 18:30 21:30 00:00 02/22/2024 117 02/23/2024 112 119 [facility] 02/24/2024 114 03/04/2024 147 98 [facility] 03/16/2024 127 e 03/22/2024 100 [facility] 04/13/2024 109 05/02/2024 133 [facility] 05/18/2024 138 e 05/31/2024 115 Date Range: 02/17/2024 - 06/01/2024 bG values are displayed in mg/dL 00:00- :30- 08:00- 11:00- 12:30- 17:00- 18:30- 30- 05: 08:00 11:00 12:30 17:00 18:30 21:30 00:00 # of tests 0 5 1 2 2 0 2 0 Average 0 127 109 119 107 0 117 0 SD 13.8 0 26.9 12 3.5 Hi/Lo 0 0 0 0 0 0 0 0 Date Range: 02/17/2024 - 06/01/2024 bG values are displayed in mg/dL 02/22/2024 07:24 AM 117 02/23/2024 07:24 AM 112 09:15 PM 119 02/24/2024 08:15 PM 114 03/04/2024 07:15 AM 147 04:34 PM 98 03/16/2024 07:08 AM 127 03/22/2024 12:25 PM 100 04/13/2024 08:55 AM 109 05/02/2024 07:41 AM 133 05/18/2024 11:10 AM 138 05/31/2024 01:02 PM 115 End of information from [employer] [facility] SMBG assessment: FBG and PP readings at goal. HYPOGLYCEMIC Events: 0 in last 2 weeks [...] HOURS NEEDED FOR SHORTNESS OF BREATH 4) ALCOHOL PREP PAD USE 1 PAD TOPICALLY TWICE A WEEK ACTIVE NEEDED TO CLEAN SKIN FOR INJECTION ETC 5) AMLODIPINE BESYLATE 5MG TAB TAKE ONE TABLET BY MOUTH ACTIVE ONCE DAILY FOR BLOOD PRESSURE/HEART, DO NOT TAKE WITH GRAPEFRUIT JUICE 6) ATORVASTATIN CALCIUM 80MG TAB TAKE ONE-HALF TABLET BY ACTIVE MOUTH AT BEDTIME FOR CHOLESTEROL 7) DM 10/GUAIFENESN 100MG/5ML (AF & SF) LIQ TAKE 5 MLS ACTIVE (ONE TEASPOONFUL) BY MOUTH EVERY 6 HOURS NEEDED FOR COUGH 8) DOXYCYCLINE HYCLATE 50MG CAP TAKE ONE CAPSULE BY ACTIVE MOUTH ONCE DAILY 9) FAMOTIDINE 20MG TAB TAKE ONE TABLET BY MOUTH DAILY ACTIVE FOR STOMACH ACID 10) KETOTIFEN 0.025% OPH SOLN INSTILL 1 DROP INTO EACH ACTIVE EYE TWICE DAILY NEEDED FOR ALLERGIC CONJUNCTIVITIS (IF YOU WEAR CONTACT LENSES, WAIT 10 MINUTES BEFORE INSERTING LENSES) 11) LACTOBACILLUS ACIDOPHILUS CAP TAKE 1 CAPSULE BY MOUTH ACTIVE TWICE DAILY 12) LEVOCETIRIZINE DIHYDROCHLORIDE 5MG TAB TAKE ONE ACTIVE TABLET BY MOUTH EVERY EVENING FOR ALLERGIES 13) LIDOCAINE 5% PATCH APPLY 1 PATCH TOPICALLY EVERY 12 ACTIVE HOURS NEEDED (LEAVE PATCH ON FOR 12 HOURS, THEN REMOVE PATCH) 14) METFORMIN HCL 1000MG TAB TAKE ONE TABLET BY MOUTH ACTIVE TWICE DAILY FOR DIABETES 15) METRONIDAZOLE 0.75% TOP GEL APPLY MODERATE AMOUNT ACTIVE TOPICALLY TWICE DAILY FOR ACNE ROSACEA 16) PEG 400 0.4%/PROP GLYCOL 0.3% OPH SOLN INSTILL 1 DROP ACTIVE INTO EACH EYE FOUR TIMES DAILY NEEDED DRY EYE 17) SILDENAFIL CITRATE 25MG TAB TAKE ONE TABLET BY MOUTH ACTIVE (S) ONCE DAILY FOR ERECTILE DYSFUNCTION TAKE 1 HOUR PRIOR TO SEXUAL ACTIVITY Inactive Outpatient Medications Status 1) ACCU-CHEK GUIDE ME (GLUCOSE) METER USE METER TO TEST BLOOD SUGARS TWICE A WEEK NEEDED 2) ALBUTEROL 3/IPRATROP 0.5MG/3ML INHL 3ML INHALE 1 VIAL DISCONTINUED (3ML) IN NEBULIZER EVERY 4 HOURS NEEDED FOR BRONCHOSPASM 3) ALBUTEROL 90MCG (CFC-F) 200D ORAL INHL INHALE 2 PUFFS DISCONTINUED BY MOUTH EVERY 4 HOURS NEEDED FOR SHORTNESS OF BREATH 4) DOXYCYCLINE HYCLATE 50MG CAP TAKE ONE CAPSULE BY DISCONTINUED MOUTH TWICE DAILY FOR INFECTION CAUSED BY BACTERIA (EDIT) 5) DOXYCYCLINE HYCLATE 50MG CAP TAKE ONE CAPSULE BY DISCONTINUED MOUTH TWICE DAILY (EDIT) 6) ERYTHROMYCIN 0.5% OPH OINT APPLY THIN RIBBON INTO EACH EYE TWICE DAILY NEEDED FOR EYE INFECTION 7) FAMOTIDINE 20MG TAB TAKE ONE TABLET BY MOUTH DAILY DISCONTINUED FOR STOMACH ACID 8) FLUTICASONE PROP 50MCG 120D NASAL INHL INSTILL 1 SPRAY INTO EACH NOSTRIL TWICE DAILY FOR NASAL IRRITATION/INFLAMMATION 9) LACTOBACILLUS ACIDOPHILUS CAP TAKE 1 CAPSULE BY MOUTH DISCONTINUED TWICE DAILY FOR PROBIOTIC SUPPLEMENTATION (EDIT) 10) LANCET,SOFTCLIX USE 1 LANCET DIRECTED TWICE A WEEK NEEDED TO TEST BLOOD SUGAR 11) LEVOCETIRIZINE DIHYDROCHLORIDE 5MG TAB TAKE ONE DISCONTINUED TABLET BY MOUTH EVERY EVENING FOR ALLERGIES 12) PREDNISONE 20MG TAB TAKE TWO TABLETS BY MOUTH ONCE DISCONTINUED DAILY Active Non-VA Medications Status 1) Non-VA MULTIVITAMIN/MINERALS CAP/TAB ONE CAP/TAB BY ACTIVE MOUTH ONCE DAILY 2) Non-VA OTHER CAP/TAB THC BY MOUTH TWICE DAILY ACTIVE 31 Total Medications Labs: CHEM 7 TREND LAB CUMULATIVE SELECTED Collection DT Spec GLUCOSE BUN CREATIN Sodium K+/Pot CL CO2 06/01/2024 10:38 SERUM 115 H 13 0.84 140 4.3 107 21 02/16/2024 09:27 SERUM 112 H 11 0.85 141 4.1 107 20 11/27/2023 08:43 SERUM 133 H 12 0.84 141 4.1 109 21 05/28/2023 11:39 SERUM 141 H 12 0.87 140 3.9 107 20 12/29/2022 14:56 SERUM 93 14 0.84 140 3.8 108 20 LAB CUMULATIVE SELECTED 2 No selection items chosen for this component. CHEM 7 Results Collection DT Spec Sodium K+/Pot CL CO2 GLUCOSE BUN 06/01/2024 10:38 SERUM 140 4.3 107 21 115 H 13 02/16/2024 09:27 SERUM 141 4.1 107 20 [...] 140 4.1 107 21 136 H 12 eGFR CKD-EPI 202006/01/24 10:38 >90 SERUM LIVER PANEL TREND Collection DT [...] HEMOGLOBIN A1C TREND Collection DT Spec HGBA1c 06/01/2024 10:38 BLOOD 5.8 H 02/16/2024 09:27 BLOOD 6.2 H 11/27/2023 08:43 BLOOD 6.1 H 05/28/2023 11:39 BLOOD 6.1 H 12/02/2022 09:03 BLOOD 6.1 H LIPID PANEL TREND Collection DT Spec CHOL HDL CHO/HDL LDL-d LDL-c TRIG 06/01/2024 10:38 SERUM 126 43 2.9 60 114 11/27/2023 08:43 SERUM 136 43 3.2 69 119 12/02/2022 09:15 SERUM 188 47 4.0 101 202 H 07/08/2022 10:39 SERUM 135 40 3.4 61 168 H 04/08/2022 09:16 SERUM 154 41 3.8 84 145 Vitals: Ht: 65 in [165.1 cm] (12/10/2023 09:52) Wt: 215 lb [97.52 kg] (06/01/2024 11:29) BMI: BMI: 35.9 BP: 138/86 (06/01/2024 11:29) HR: 93 (06/01/2024 11:29) Assessment: DIABETES: Goal: A1c goal is <7% with a goal fasting BG average of 90-130mg/dL and a goal post-prandial BG average of <180mg/dL per ADA guideline. -A1c is above goal of <7% (5.8% 05/2024) CARDIOVASCULAR: Goal BP = <130/80 mmHg -Current BP is 138/86 -Lipids:wnl 06/01/24 PREVENTIVE CARE: - Most recent visit to Podiatry: see's once / year checks regularly - Most recent visit to Optometry: Type II diabetes without diabetic retinopathy or macular edema OU 01/13/24 Plan: - Medication management - CONTINUE: Metformin 1000 mg twice daily - Continue to SMBG 2x/week - Monitor for s/sx hypoglycemia and contact clinic if BG consistently <70mg/dL - Healthy dietary and lifestyle modifications encouraged - Repeat A1c:09/2024 EDUCATION -A shared decision-making approach was used in the development of this plan, involving the Adrian, clinician, and any caregivers present. The was provided the opportunity express questions or concerns, and the plan was adjusted as needed to address these concerns. -Reviewed with Adrian any new medications, changes to the medication list, education, and plan from today's visit. Patient (and/or caregiver) verbalized understanding of the plan, including possible known risks and benefits, and had no additional questions. RTC:09/21/24 @0900 Time Spent:25 mins PBM PharmD Pharmacotherapy Rem V12: PHARMACIST INTERVENTIONS: TYPE 2 DIABETES MELLITUS Medication monitoring, no dosage change required, continue to monitor and assess Medication reconciliation (changes to active VA and non-VA medication lists to reconcile differences) Changes to medication lists made Add or renew medication /gaetano/ EMILY PERSON [facility]AR[facility] PRACTITIONER Signed: 06/01/2024 14:05 [facility] [place] [facility] [place] Jun 01, 2024 02:05 PM LETTERS: LOCAL TITLE: PATIENT LETTER (B) STANDARD TITLE: LETTERS DATE OF NOTE: JUN 01, 2024@14:05 ENTRY DATE: JUN 01, 2024@14:06:05 AUTHOR: EMILY PERSON EXP COSIGNER: URGENCY: STATUS: COMPLETED PATIENT LETTER (B) Has ADDENDA CHAYA PEDRO [address], [place], [address] Date:JUN 01, 2024 Dear CHAYA PEDRO, Your A1c is well within goal of less than 7%. LDL (bad cholesterol) is also at goal. Your kidney function is well within normal limits. Please continue with your current medications as prescribed. SERUM Jun 01 Reference 2023 10:38 Units Ranges -- GLUCOSE 115 H mg/dL 65 - 100 BUN 13 mg/dL 7 - 25 CREATININE 0.84 mg/dL .5 - 1.4 eGFR(IDMS) Ref: >=60 CREAT mg/dL .5 - 1.5 eGFR See Eval Ref: See Eval Sodium 140 mmol/L 135 - 145 K+/Pot 4.3 mmol/L 3.5 - 5 CL 107 mmol/L 100 - 110 CO2 21 mEq/L 20 - 30 SERUM Jun 01 Reference 2023 10:38 Units Ranges -- CHOL 126 mg/dL <7 - 199 TRIG 114 mg/dL 0 - 150 HDL 43 mg/dL 40 - 60 LDL-d mg/dL <10 - 120 LDL 60 mg/dL 0 - 129 BLOOD Jun 01 Reference 2023 10:38 Units Ranges HGB-A1c 5.8 H % 4 - 5.6 Jun 01, 2024@10:38 SERUM eGFR(CKD-EPI 2020): >90 mL/min Ref: >=60 Respectfully, Emily Person PharmD, [facility] 06/01/2024 ADDENDUM STATUS: COMPLETED Please mail letter with labs to patient, thanks! /gaetano/ EMILY PERSON PHARMD,[facility]AC[facility] PRACTITIONER Signed: 06/01/2024 14:11 Receipt Acknowledged By: * AWAITING SIGNATURE * CARLOS RIVAS JODI A [facility] [place] [facility] [place] Jun 01, 2024 08:45 AM PHARMACY OUTPATIEN T NOTE: LOCAL TITLE: PHARMACY CLINIC NOTE STANDARD TITLE: PHARMACY OUTPATIENT NOTE DATE OF NOTE: JUN 01, 2024@08:45 ENTRY DATE: JUN 01, 2024@08:45:41 AUTHOR: EMILY PERSON EXP COSIGNER: URGENCY: STATUS: COMPLETED PHARMACY CLINIC NOTE Has ADDENDA CHAYA PEDRO, 68 yo DECLINED TO ANSWER MALE, presents in office for follow up visit in regards to diabetes medication management. Pt was last contacted via telephone for apt on 02/17/24 in which no medication changes were made. Today, pt reports doing fairly well. He denies any diarrhea from metformin. He denies any recent hypoglycemia. He had a fall a few months ago d/t flashing in his eye that causes him to lose balance. He wears dark glasses to help prevent this from causing falls. Pt will go to lab after this apt. Then he will see PCP. Current diabetes medications: - metformin 1000 mg twice daily Medication Adherence: - takes daily Diet Patterns: patient eats on avg. 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 SMBG: Name: Chaya Pedro : 1955 ID: Information from [facility] on 06/01/2024 Patient Name: Chaya Pedro Date Range: 02/17/2024 - 06/01/2024 bG values are displayed in mg/dL # of tests 12 Average 119 SD 14.8 Highest 147 Lowest 98 Avg tests/day 0.1 # HI 0 # LO 0 <70 0.0% 70-220 100.0% >220 0.0% Hypos(<69) 0 Date Range: 02/17/2024 - 06/01/2024 bG values are displayed in mg/dL 00:00- 05:30- 08:00- 11:00- 12:30- 17:00- 18:30- 21:30- 05:30 08:00 11:00 12:30 17:00 18:30 21:30 00:00 02/22/2024 117 Thu02/23/2024 112 119 Thu02/24/2024 114 03/04/2024 147 98 Thu03/16/2024 127 Thu03/22/2024 100 Thu04/13/2024 109 [facility] 05/02/2024 133 Thu05/18/2024 138 Thu05/31/2024 115 Date Range: 02/17/2024 - 06/01/2024 bG values are displayed in mg/dL 00:00- - 08:00- 11:00- 12:30- 17:00- - - 05: 08:00 11:00 12:30 17:00 18:30 21:30 00:00 # of tests 0 5 1 2 2 0 2 0 Average 0 127 109 119 107 0 117 0 SD 13.8 0 26.9 12 3.5 Hi/Lo 0 0 0 0 0 0 0 0 Date Range: 02/17/2024 - 06/01/2024 bG values are displayed in mg/dL 02/22/2024 07:24 AM 117 02/23/2024 07:24 AM 112 09:15 PM 119 02/24/2024 08:15 PM 114 03/04/2024 07:15 AM 147 04:34 PM 98 03/16/2024 07:08 AM 127 03/22/2024 12:25 PM 100 04/13/2024 08:55 AM 109 05/02/2024 07:41 AM 133 05/18/2024 11:10 AM 138 05/31/2024 01:02 PM 115 End of information from [facility] SMBG assessment: FBG and PP readings at goal. HYPOGLYCEMIC Events: 0 in last 2 weeks [...] HOURS NEEDED FOR SHORTNESS OF BREATH 4) ALCOHOL PREP PAD USE 1 PAD TOPICALLY TWICE A WEEK ACTIVE NEEDED TO CLEAN SKIN FOR INJECTION ETC 5) AMLODIPINE BESYLATE 5MG TAB TAKE ONE TABLET BY MOUTH ACTIVE ONCE DAILY FOR BLOOD PRESSURE/HEART, DO NOT TAKE WITH GRAPEFRUIT JUICE 6) ATORVASTATIN CALCIUM 80MG TAB TAKE ONE-HALF TABLET BY ACTIVE MOUTH AT BEDTIME FOR CHOLESTEROL 7) DM 10/GUAIFENESN 100MG/5ML (AF & SF) LIQ TAKE 5 MLS ACTIVE (ONE TEASPOONFUL) BY MOUTH EVERY 6 HOURS NEEDED FOR COUGH 8) DOXYCYCLINE HYCLATE 50MG CAP TAKE ONE CAPSULE BY ACTIVE MOUTH ONCE DAILY 9) FAMOTIDINE 20MG TAB TAKE ONE TABLET BY MOUTH DAILY ACTIVE FOR STOMACH ACID 10) KETOTIFEN 0.025% OPH SOLN INSTILL 1 DROP INTO EACH ACTIVE EYE TWICE DAILY NEEDED FOR ALLERGIC CONJUNCTIVITIS (IF YOU WEAR CONTACT LENSES, WAIT 10 MINUTES BEFORE INSERTING LENSES) 11) LACTOBACILLUS ACIDOPHILUS CAP TAKE 1 CAPSULE BY MOUTH ACTIVE TWICE DAILY 12) LEVOCETIRIZINE DIHYDROCHLORIDE 5MG TAB TAKE ONE ACTIVE TABLET BY MOUTH EVERY EVENING FOR ALLERGIES 13) LIDOCAINE 5% PATCH APPLY 1 PATCH TOPICALLY EVERY 12 ACTIVE HOURS NEEDED (LEAVE PATCH ON FOR 12 HOURS, THEN REMOVE PATCH) 14) METFORMIN HCL 1000MG TAB TAKE ONE TABLET BY MOUTH ACTIVE TWICE DAILY FOR DIABETES 15) METRONIDAZOLE 0.75% TOP GEL APPLY MODERATE AMOUNT ACTIVE TOPICALLY TWICE DAILY FOR ACNE ROSACEA 16) PEG 400 0.4%/PROP GLYCOL 0.3% OPH SOLN INSTILL 1 DROP ACTIVE INTO EACH EYE FOUR TIMES DAILY NEEDED DRY EYE 17) SILDENAFIL CITRATE 25MG TAB TAKE ONE TABLET BY MOUTH ACTIVE (S) ONCE DAILY FOR ERECTILE DYSFUNCTION TAKE 1 HOUR PRIOR TO SEXUAL ACTIVITY Inactive Outpatient Medications Status 1) ACCU-CHEK GUIDE ME (GLUCOSE) METER USE METER TO TEST BLOOD SUGARS TWICE A WEEK NEEDED 2) ALBUTEROL 3/IPRATROP 0.5MG/3ML INHL 3ML INHALE 1 VIAL DISCONTINUED (3ML) IN NEBULIZER EVERY 4 HOURS NEEDED FOR BRONCHOSPASM 3) ALBUTEROL 90MCG (CFC-F) 200D ORAL INHL INHALE 2 PUFFS DISCONTINUED BY MOUTH EVERY 4 HOURS NEEDED FOR SHORTNESS OF BREATH 4) DOXYCYCLINE HYCLATE 50MG CAP TAKE ONE CAPSULE BY DISCONTINUED MOUTH TWICE DAILY FOR INFECTION CAUSED BY BACTERIA (EDIT) 5) DOXYCYCLINE HYCLATE 50MG CAP TAKE ONE CAPSULE BY DISCONTINUED MOUTH TWICE DAILY (EDIT) 6) ERYTHROMYCIN 0.5% OPH OINT APPLY THIN RIBBON INTO EACH EYE TWICE DAILY NEEDED FOR EYE INFECTION 7) FAMOTIDINE 20MG TAB TAKE ONE TABLET BY MOUTH DAILY DISCONTINUED FOR STOMACH ACID 8) FLUTICASONE PROP 50MCG 120D NASAL INHL INSTILL 1 SPRAY INTO EACH NOSTRIL TWICE DAILY FOR NASAL IRRITATION/INFLAMMATION 9) LACTOBACILLUS ACIDOPHILUS CAP TAKE 1 CAPSULE BY MOUTH DISCONTINUED TWICE DAILY FOR PROBIOTIC SUPPLEMENTATION (EDIT) 10) LANCET,SOFTCLIX USE 1 LANCET DIRECTED TWICE A WEEK NEEDED TO TEST BLOOD SUGAR 11) LEVOCETIRIZINE DIHYDROCHLORIDE 5MG TAB TAKE ONE DISCONTINUED TABLET BY MOUTH EVERY EVENING FOR ALLERGIES 12) PREDNISONE 20MG TAB TAKE TWO TABLETS BY MOUTH ONCE DISCONTINUED DAILY Active Non-VA Medications Status 1) Non-VA MULTIVITAMIN/MINERALS CAP/TAB ONE CAP/TAB BY ACTIVE MOUTH ONCE DAILY 2) Non-VA OTHER CAP/TAB THC BY MOUTH TWICE DAILY ACTIVE 31 Total Medications Labs: CHEM 7 TREND LAB CUMULATIVE SELECTED Collection DT Spec GLUCOSE BUN CREATIN Sodium K+/Pot CL CO2 06/01/2024 10:38 SERUM 115 H 13 0.84 140 4.3 107 21 02/16/2024 09:27 SERUM 112 H 11 0.85 141 4.1 107 20 11/27/2023 08:43 SERUM 133 H 12 0.84 141 4.1 109 21 05/28/2023 11:39 SERUM 141 H 12 0.87 140 3.9 107 20 12/29/2022 14:56 SERUM 93 14 0.84 140 3.8 108 20 LAB CUMULATIVE SELECTED 2 No selection items chosen for this component. CHEM 7 Results Collection DT Spec Sodium K+/Pot CL CO2 GLUCOSE BUN 06/01/2024 10:38 SERUM 140 4.3 107 21 115 H 13 02/16/2024 09:27 SERUM 141 4.1 107 20 [...] 140 4.1 107 21 136 H 12 eGFR CKD-EPI 202006/01/24 10:38 >90 SERUM LIVER PANEL TREND Collection DT [...] HEMOGLOBIN A1C TREND Collection DT Spec HGBA1c 06/01/2024 10:38 BLOOD 5.8 H 02/16/2024 09:27 BLOOD 6.2 H 11/27/2023 08:43 BLOOD 6.1 H 05/28/2023 11:39 BLOOD 6.1 H 12/02/2022 09:03 BLOOD 6.1 H LIPID PANEL TREND Collection DT Spec CHOL HDL CHO/HDL LDL-d LDL-c TRIG 06/01/2024 10:38 SERUM 126 43 2.9 60 114 11/27/2023 08:43 SERUM 136 43 3.2 69 119 12/02/2022 09:15 SERUM 188 47 4.0 101 202 H 07/08/2022 10:39 SERUM 135 40 3.4 61 168 H 04/08/2022 09:16 SERUM 154 41 3.8 84 145 Vitals: Ht: 65 in [165.1 cm] (12/10/2023 09:52) Wt: 215 lb [97.52 kg] (06/01/2024 11:29) BMI: BMI: 35.9 BP: 138/86 (06/01/2024 11:29) HR: 93 (06/01/2024 11:29) Assessment: DIABETES: Goal: A1c goal is <7% with a goal fasting BG average of 90-130mg/dL and a goal post-prandial BG average of <180mg/dL per ADA guideline. -A1c is above goal of <7% (5.8% 05/2024) CARDIOVASCULAR: Goal BP = <130/80 mmHg -Current BP is 138/86 -Lipids:wnl 06/01/24 PREVENTIVE CARE: - Most recent visit to Podiatry: see's once / year checks regularly - Most recent visit to Optometry: Type II diabetes without diabetic retinopathy or macular edema OU 01/13/24 Plan: - Medication management - CONTINUE: Metformin 1000 mg twice daily - Continue to SMBG 2x/week - Monitor for s/sx hypoglycemia and contact clinic if BG consistently <70mg/dL - Healthy dietary and lifestyle modifications encouraged - Repeat A1c:09/2024 EDUCATION -A shared decision-making approach was used [...] and benefits, and had no additional questions. RTC:09/21/24 @0900 Time Spent:25 mins PBM PharmD Pharmacotherapy Rem V12: PHARMACIST INTERVENTIONS: TYPE 2 DIABETES MELLITUS Medication monitoring, no dosage change required, continue to monitor and assess Medication reconciliation (changes to active VA and non-VA medication lists to reconcile differences) Changes to medication lists made Add or renew medication /es/ EMILY GDULA, PHARMD,[facility] PRACTITIONER Signed: 06/01/2024 14:05 06/01/2024 ADDENDUM STATUS: COMPLETED Will ask [facility] to please schedule patient for: [X] CWM/NO/PHARM/PACT 3 RTC order placed. Appointment Length: _30__ minutes. 09/21/24 @0900 Thank you! /jerry PERSON PHARMD,[facility] PRACTITIONER Signed: 06/01/2024 14:05 Receipt Acknowledged By: * AWAITING SIGNATURE * THANH LUCAS [facility]I [facility]
--- OUTSIDE RECORDS SUMMARY | 2024-11-01 08:03 | XMS_ITS | Encounter Summary ---
Author Name [facility] [facility] [place] Address [address] [place] [address] Care Team Providers Care Instructor Military Science Name Role Phone ELIZABET ROBINS Primary Care [...] Policy Paul [facility] CE ORGANIZ [facility] AC Apr 18, 2018 [id number] WILLIS,MAR JUDITH SPOUSE ANTHEM BCBS OF [place] (BLUECARD) [facility] MAIN[facility] CE ORGANIZ [facility] Apr 18, 2018 [id number] WILLIS,MAR JUDITH SPOUSE BCBS [facility] CE ORGANIZ [facility] ACTIV E Apr 18, 2018 [id number] WILLIS,MAR JUDITH SPOUSE [facility]GAN[facility] Apr 18, 2018 [id number] WILLIS,MAR JUDITH PATIENT BCBS OF [facility] CE ORGANIZ BRENDA MCCABE [facility] Apr 18, 2018 [id number] WILLIS,MAR JUDITH SPOUSE BCBS OF [place] PREFERRED PROVIDER ORGANIZAT ION (PPO) [facility] AC Apr 18, 2018 [id number] [phone] WILLIS,MAR JUDITH SPOUSE BCBS OF [facility] CE ORGANIZ BRENDA MCCABE [facility] ACT Apr 18, 2018 [id number] WILLIS,EDILBERTO JUDITH SPOUSE BCBS OF [facility] CE ORGANIZ BRENDA MCCABE [facility] AC Apr 18, 2018 [id number] WILLIS,MAR JUDITH SPOUSE [place] PRESCRIPT ION RX22M A Oct 19, 2022 RX22MA [id number] WILLIS,LAVELLE AEL PATIENT CAREMARK PRESCRIPT ION RX22M B Oct 19, 2022 RX22MB [id number] WILLIS,LAVELLE AEL PATIENT CAREMARK PRESCRIPT ION RX22M B Oct 19, 2022 RX22MB [id number] WILLIS,MAR JUDITH SPOUSE CAR[place]ARK PRESCRIPT ION BRENDA MCCABE [facility] AC Oct 19, 2022 RX22MB [id number] WILLIS,LAVELLE AEL SPOUSE [place] PRESCRIPT ION RX Oct 19, 2022 RX22MB [id number] WILLIS,MAR JUDITH SPOUSE [place] PRESCRIPT ION BCBS OF [place] Oct 19, 2022 RX22MA [id number] [phone] WILLIS, SPOUSE CAREMARK ([id number]) PRESCRIPT ION [place] OF [place] Oct 19, 2022 [id number] WILLIS,MAR JUDITH SPOUSE [place] BC[place] ([facility] CE ORGANIZ BRENDA MCCABE [facility] AC Apr 18, 2018 [id number] WILLIS,EDILBERTO SOTELOZA SPOUSE [employer] PRESCRIPT ION BCBS [place] 2018 L4TA [id number] WILLIS,EDILBERTO SOTELOZA SPOUSE [employer] ([id number]) PRESCRIPT ION Apr 18, 2018 L4TA [id number] WILLIS,EDILBERTO SOTELOZA SPOUSE [employer] ([id number]) PRESCRIPT ION L4TA* Apr 18, 2020 L4TA [id number] WILLIS,EDILBERTO PALAFOXA SPOUSE [employer] ([id number]) PRESCRIPT ION L4TA* Apr 18, 2018 L4TA [id number] WILLIS,EDILBERTO PALAFOXA SPOUSE [employer] ([id number]) PRESCRIPT ION L4TA Apr 18, 2018 L4TA [id number] WILLIS,EDILBERTO WONG SPOUSE [employer] ([id number]) PRESCRIPT ION Apr 18, 2018 L4TA [id number] 32 WILLISEDILBERTO SPOUSE [employer] ([id number]) PRESCRIPT ION Apr 18, 2018 L4TA [id number] WILLIS,EDILBERTO WONG SPOUSE [employer]-MINOR BROGATION PRESCRIPT ION BCBS OF [place] Apr 18, 2020 L4TA [id number] WILLIS,EDILBERTO WONG SPOUSE [facility] ([facility] CE ORGANIZAT ION W/OUT OF NETWORK BENEFITS [facility] ACT Apr 18, 2018 [id number] WILLISEDILBERTO SPOUSE [place] BCBS [facility] (BLUECARD) [facility] CE ORGANIZAT ION [facility] AC Apr 18, 2018 [id number] [phone] WILLIS,EDILBERTO WONG SPOUSE MEDICARE (WNR) MEDICARE (M) PART A Mar 19, 1990 PART A [id number] [phone] LAVELLE PEDRO PATIENT MEDICARE (WNR) MEDICARE (M) PART A Mar 19, 1990 PART A [id number] [phone] WILLIS,LAVELLE AEL PATIENT MEDICARE (WNR) MEDICARE (M) PART A Mar 19, 1990 PART A [id number] WILLIS,LAVELLE AEL PATIENT MEDICARE (WNR) MEDICARE (M) PART A Mar 19, 1990 PART A [id number] WILLIS,LAVELLE AEL PATIENT MEDICARE (WNR) MEDICARE (M) PART A Mar 19, 1990 PART A [id number] WILLIS,LAVELLE AEL PATIENT MEDICARE (WNR) MEDICARE (M) PART A Mar 19, 1990 PART A [id number] WILLIS,LAVELLE AEL PATIENT MEDICARE (WNR) MEDICARE (M) PART A Mar 19, 1990 PART A [id number] WILLIS,LAVELLE AEL PATIENT MEDICARE (WNR) MEDICARE (M) PART A Mar 19, 1990 PART A [id number] [phone] WILLIS,LAVELLE AEL PATIENT MEDICARE (WNR) MEDICARE (M) PART A Mar 19, 1990 PART A [id number] WILLIS,LAVELLE AEL PATIENT MEDICARE (WNR) MEDICARE (M) PART A Mar 19, 1990 PART A [id number] WILLIS,LAVELLE AEL PATIENT MEDICARE (WNR) MEDICARE (M) PART A Mar 19, 1990 PART A [id number] [phone] WILLIS,LAVELLE AEL PATIENT Selected Encounter This section includes the information on record at [place] for the Encounter. Date/Time Encounter Type Encounter Description Reason Pro vider Source Jun 24, 2024 07:58 AM Outpatient Encounter ADMIN PAT ACTIVTIES (MASNONCT) IHE Encounter Template Text not used by [place] Plan of Treatment: Future Appointments (+ 6 [...] 20 appointments. The data comes from all [facility]. Appointment Date/Time Appointment Type Appointme nt Facility Name Jun 28, 2024 11:30 AM AMBULATORY - [place]ICINE [place] [facility] [place] [facility] Jul 08, 2024 10:30 AM AMBULATORY - MEDICINE [place] [facility] [place] [facility] Jul 13, 2024 09:30 AM AMBULATORY - MEDICINE [place] [facility] [place] [facility] Aug 12, 2024 09:30 AM AMBULATORY - MEDICINE [place] [facility] [place] [facility] Aug 22, 2024 09:00 AM AMBULATORY - MEDICINE [place] [facility] [place] [facility] Sep 21, 2024 09:00 AM AMBULATORY - MEDICINE [place] [facility] [place] [facility] Sep 21, 2024 10:00 AM AMBULATORY - MEDICINE [place] [facility] [place] [facility] Nov 28, 2024 09:30 AM AMBULATORY - MEDICINE [place] [facility] [place] [facility] Dec 02, 2024 08:30 AM AMBULATORY - MEDICINE [place] [facility] [place] [facility] Active, Pending, and Scheduled Orders This section includes a listing of several types of active, pending, and scheduled orders, including clinic medications orders, diagnostic test orders, procedure orders and consult orders; where the start date of the order is 45 days before the date of the Encounter or 45 days after the date of theEncounter. The data comes from all [facility]. Test Date/Time Test Type Test Details Facility Name Jul 13, 2024 09:58 AM Consult Order PODIATRY/N HM OUTPT Cons [employer] Worker's Choice [place] [facility] [place] [facility] Lab Results: +/- 30 days of the encounter This section includes the Chemistry and Hematology Lab Results on record with [place] for the patient. Radiology Reports and Pathology Reports are provided separately, in subsequent sections. Lab Results This section contains the Chemistry/Hematology Results that were resulted 30 days before or 30 daysafter the date of the Encounter. Date/Time Source Result Type Result - Unit Interpretation Reference Range Comment Jun 01, 2024 12:25 PM [place] [facility] [place] [facility] MICROALBUMIN CREATININE RATIO PANEL Specimen Type: URINE No comment entered. Ordering Provider: LINDA PERSON Report Released Date/Time: Jun 01, 2024 11:53 AM Reporting Lab: [facility] [address] [address] Performing Lab: [address] [address] MICROALBUMIN/C REATININE RATIO 10.8 mg/g 0-29.9 MICROALBUMIN,Q UANTITATIVE 1.1 mg/dL RR UNAVAIL CREATININE URINE 101.63 mg/dL Jun 01, 2024 10:38 AM [facility] HEMOGLOBIN A1C PANEL Specimen Type: BLOOD [...] May 30, 2024 10:29 AM Reporting Lab: [address] [address] Performing Lab: [address] [address] HEMOGLOBIN A1C 5.8 H 4.0-5.6 Jun 01, 2024 10:38 AM [facility] BASIC METABOLIC PANEL (non-fasting) Specimen Type: SERUM No comment entered. Ordering Provider: LINDA PERSON Report Released Date/Time: May 30, 2024 10:29 AM Reporting Lab: [address] [address] Performing Lab: [address] [address] UREA NITROGEN 13 mg/dL 7-25 GLUCOSE 115 mg/dL H 65-100 SODIUM 140 mmol/L 135-145 POTASSIUM 4.3 mmol/L 3.5-5.0 CHLORIDE 107 mmol/L 100-110 CO2 21 meq/L 20-30 CREATININE, Serum 0.84 mg/dL 0.50-1.40 eGFR(CKD-EPI 2020) >90 mL/min >60 Jun 01, 2024 10:38 AM [facility] [place] [facility] LIPID PANEL, NON FASTING Specimen Type: SERUM No comment entered. Ordering Provider: LINDA PERSON Report Released Date/Time: Jun 01, 2024 10:12 AM Reporting [facility] [address] [address] Performing Lab: [facility] [address] [address] CHOLESTEROL 126 mg/dL TRIGLYCERIDE 114 mg/dL 0-150 LDL calculated 60 mg/dL 0-129 CHOL/HDL 2.9 HDL CHOLESTEROL 43 mg/dL 40-60 Social History: Smoking Status (Most current) and Tobacco Use (All prior to encounter date) This section includes the most current, and the historical, smoking and tobacco- related health factors from the [place] facility where the Encounter took place. Current Smoking Status This section includes the most current smoking, or tobacco-related health factor, from the [place] facility where the Encounter took place. Date/Time Current Smoking Status Comment [facility] Nov 27, 2023 11:00 AM [facility] [place] [facility] Tobacco Use History This section includes a history of the smoking, or tobacco-related health factors, that were collected on or before the date of the Encounter. The data comes from the [place] facility where the Encounter took place. Date/Time Smoking Status/Tobac co Use Comment Facility Nov 27, 2023 11:00 AM VA-TOBACCO QUIT 15 YRS OR MORE [facility] [place] [facility] Dec 02, 2022 08:00 AM VA-TOBACCO FORMER USER [facility] [place] [facility] Dec 02, 2022 08:00 AM VA-TOBACCO QUIT 15 YRS OR MORE [facility] [place] [facility] Nov 05, 2021 10:30 AM VA-TOBACCO FORMER USER [facility] [place] [facility] Nov 05, 2021 10:30 AM VA-TOBACCO QUIT 1 TO < 5 YRS [facility] [place] [facility] Sep 14, 2020 02:00 PM VA-TOBACCO FORMER USER [facility] [place] [facility] Sep 14, 2020 02:00 PM VA-TOBACCO QUIT 5 TO < 15 YRS [facility] Jan 22, 2018 03:40 PM QUIT TOBACCO USE > 7 YEARS AGO [facility] Jun 04, 2016 02:01 PM CURRENT SMOKER been smoking pass 20 yrs [facility] Jun 04, 2016 02:01 PM V1-PT DECLINES REF TO TOBACCO CESS PRGM [facility] Jun 04, 2016 02:01 PM V1-PT THINKING ABOUT QUIT TOBACCO USE [facility] Jul 18, 2014 03:31 PM V1-PT DECLINES REF TO TOBACCO CESS PRGM [facility] Jul 18, 2014 03:31 PM V1-PT DECLINES TOBACCO CESSATION MEDS [facility] Jul 18, 2014 03:31 PM V1-PT NOT INTERESTED IN QUIT TOBACCO USE [facility] Jan 09, 2014 10:43 AM CURRENT SMOKER pt smokes 1 pk of cigarettes per day. [facility] Jan 09, 2014 10:43 AM V1-PT THINKING ABOUT QUIT TOBACCO USE [facility] Aug 28, 2003 10:47 AM CURRENT SMOKER one pack q 6 days - he has cut down from 3 PPD. He is in the process of quitting [facility] Encounter Notes: All associated encounter notes This section contains the clinical notes associated to the Encounter. 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 care services for a minimum of 6 continuous months based on an inability to perform an ADL and/or a need for supervision, protection or instruction Denial date: 06/23/2024 Staff provided/attempted verbal notification of denial on: 06/24/2024 Notification letter was mailed on: 06/24/2024 [facility] staff provided the following document(s): - [facility] Kraus Contact Information - Program of General Caregiver Support Services - [employer] Eligibility Criteria Fact Sheet - [place] Caregiver Support Program [employer] Appeal FAQs - VA Form 10-305 Your Rights to Seek Further Review of [employer] Decisions [facility] staff provided information on the following resources and supports: - Other VA Services: https://www.va.gov/GERIATR ICS/ Product Support Representative called 's /caregiver. Product Support Representative reviewed the above mentioned. 's /caregiver expressed disappointment as she dropped off her granddaughter and is rushing home as we speak because had a seizure. Product Support Representative reviewed she will include appeal options with the detailed denial letter. Product Support Representative also noted she & vet also have the option to reapply in the future. [place]'s /caregiver asked if she can be paid as this 's home health aid, as she is caring for who has a seizure disorder and quit her job in order to care for him at home. Product Support Representative reviewed will have to be assessed to determine his level of needs. Thereafter 's /caregiver will have to apply to work with a community home health aid agency who contracts with the VA in order to be paid as this 's home health aid. 's /caregiver reports she is interested in being evaluated for [employer] services. Product Support Representative agreed to refer this and caregiver to the PCS/CAMMY team. [place]'s /caregiver agreed to contact blog writer with any further questions and or concerns. /gaetano/ JESSICA HOUSER LCSW CAREGIVER SUPPORT CREDIT UNDERWRITER Signed: 06/24/2024 08:19 Receipt Acknowledged By: 06/24/2024 09:10 /gaetano/ KARRIE ABRAMS PURCHASED HOSIERY PAIRER JESSICA CALLE [facility]
--- OUTSIDE RECORDS SUMMARY | 2024-11-01 08:03 | XMS_ITS | Encounter Summary ---
Author Name [facility] [place] [facility] [place] Address [address] [place] [address] Care Team Providers Care Matcher Name Role Phone BERE RIOS Primary Care [...] Paul's Name Patient's Relationship to Policy Paul [facility] CE ORGANIZ [facility] AC Apr 18, 2018 [id number] [phone] WILLIS,MAR JUDITH SPOUSE ANTHEM BCBS OF [place] (BLUECARD) [facility] MA[facility] CE ORGANIZ [facility]ISTEN [facility] Apr 18, 2018 [id number] WILLIS,MAR JUDITH SPOUSE BCBS [facility] CE ORGANIZ [facility] SHARE ACTIV E Apr 18, 2018 [id number] WILLIS,MAR JUDITH SPOUSE [facility] Apr 18, 2018 [id number] WILLIS,MAR JUDITH PATIENT BCBS OF [facility] CE ORGANIZ BRENDA MCCABE [facility] Apr 18, 2018 [id number] WILLIS,MAR JUDITH SPOUSE BCBS OF [place] PREFERRED PROVIDER ORGANIZAT ION (PPO) BRENDA MCCABE [facility] AC Apr 18, 2018 [phone] WILLIS,MAR JUDITH SPOUSE BCBS OF [facility] CE ORGANIZ BRENDA MCCABE [facility] ACT Apr 18, 2018 [id number] WILLIS,MAR JUDITH SPOUSE BCBS OF [facility] CE ORGANIZ BRENDA MCCABE [facility] AC Apr 18, 2018 [id number] [phone] WILLIS,MAR JUDITH SPOUSE [place] PRESCRIPT ION BCBS OF [place] Oct 19, 2022 [id number] WILLIS, SPOUSE [place] PRESCRIPT ION RX22M A Oct 19, 2022 RX22MA [id number] WILLIS,LAVELLE AEL PATIENT [place] PRESCRIPT ION RX22M B Oct 19, 2022 RX22MB [id number] WILLIS,LAVELLE AEL PATIENT [place] PRESCRIPT ION BRENDA MCCABE [facility] AC Oct 19, 2022 RX22MB [id number] [phone] WILLIS,LAVELLE AEL SPOUSE [place] PRESCRIPT ION RX22M B Oct 19, 2022 RX22MB [phone] WILLIS,MAR JUDITH SPOUSE [place] PRESCRIPT ION RX Oct 19, 2022 [id number] [phone] WILLIS,MAR JUDITH SPOUSE [place] ([id number]) PRESCRIPT ION [place] OF [place] Oct 19, 2022 [id number] WILLIS,MAR JUDITH SPOUSE [place] BCBS ([facility] CE ORGANIZ BRENDA MCCABE [facility] AC Apr 18, 2018 [id number] WILLIS,EDILBERTO SOTELOZA SPOUSE [employer] PRESCRIPT [place] 2018 L4TA [id number] WILLIS,EDILBERTO SOTELOZA SPOUSE [employer] ([id number]) PRESCRIPT ION Apr 18, 2018 L4TA [id number] WILLIS,EDILBERTO SOTELOZA SPOUSE [employer] ([id number]) PRESCRIPT ION L4TA* Apr 18, 2020 L4TA [id number] WILLIS,EDILBERTO PALAFOXA SPOUSE [employer] ([id number]) PRESCRIPT ION L4TA* Apr 18, 2018 L4TA [id number] WILLIS,EDILBERTO PALAFOXA SPOUSE [employer] ([id number]) PRESCRIPT ION L4TA Apr 18, 2018 L4TA [id number] WILLIS,DEILBERTO WONG SPOUSE [employer] ([id number]) PRESCRIPT ION Apr 18, 2018 L4TA [id number] 32 WILLISEDILBERTO SPOUSE [employer] ([id number]) PRESCRIPT ION Apr 18, 2018 L4TA [id number] WILLIS,EDILBERTO WONG SPOUSE [employer]-MINOR [place] PRESCRIPT ION BCBS OF [place] Apr 18, 2020 L4TA [id number] WILLIS,EDILBERTO WONG SPOUSE [facility] ([facility] CE ORGANIZAT ION W/OUT OF NETWORK BENEFITS ORTRISTEN MCCABE [facility] ACT Apr 18, 2018 [id number] [phone] WILLISEDILBERTO SPOUSE [place] BCBS [facility] (BLUECARD) [facility] CE ORGANIZAT ION [facility]ISTEN [facility] AC Apr 18, 2018 [id number] WILLISEDILBERTO SPOUSE MEDICARE (WNR) MEDICARE (M) PART A Mar 19, 1990 PART A [id number] [phone] WILLIS,LAVELLE AEL PATIENT MEDICARE (WNR) MEDICARE (M) PART A Mar 19, 1990 PART A [id number] WILLIS,LAVELLE AEL PATIENT MEDICARE (WNR) MEDICARE (M) PART A Mar 19, 1990 PART A [id number] [phone] WILLIS,LAVELLE AEL PATIENT MEDICARE (WNR) MEDICARE (M) PART A Mar 19, 1990 PART A [id number] WILLIS,LAVELLE AEL PATIENT MEDICARE (WNR) MEDICARE (M) PART A Mar 19, 1990 PART A [id number] [phone] WILLIS,LAVELLE AEL PATIENT MEDICARE (WNR) MEDICARE (M) PART A Mar 19, 1990 PART A [id number] WILLIS,LAVELLE AEL PATIENT MEDICARE (WNR) MEDICARE (M) PART A Mar 19, 1990 PART A [id number] WILLIS,LAVELLE AEL PATIENT MEDICARE (WNR) MEDICARE (M) PART A Mar 19, 1990 PART A [id number] WILLIS,LAVELLE AEL PATIENT MEDICARE (WNR) MEDICARE (M) PART A Mar 19, 1990 PART A [id number] WILLISLAVELLE AEL PATIENT MEDICARE (WNR) MEDICARE (M) PART A Mar 19, 1990 PART A [id number] WILLIS,LAVELLE AEL PATIENT MEDICARE (WNR) MEDICARE (M) PART A Mar 19, 1990 PART A [id number] WILLIS,LAVELLE AEL PATIENT Selected Encounter This section includes the information on record at [place] for the Encounter. Date/Time Encounter Type Encounter Description Reason Pro vider Source Jun 03, 2024 02:57 PM Outpatient Encounter ADMIN PAT ACTIVTIES (MASNONCT) IHE Encounter Template Text not used by [place] Plan of Treatment: Future Appointments (+ 6 [...] 20 appointments. The data comes from all [facility]. Appointment Date/Time Appointment Type Appointme nt Facility Name Jun 28, 2024 11:30 AM AMBULATORY - MEDICINE [place] [facility] [place] [facility] Jul 08, 2024 10:30 AM AMBULATORY - [place]ICINE [place] [facility] [place] [facility] Jul 13, 2024 09:30 AM AMBULATORY - MEDICINE [place] [facility] [place] [facility] Aug 12, 2024 09:30 AM AMBULATORY - MEDICINE [place] [facility] [place] [facility] Aug 22, 2024 09:00 AM AMBULATORY - MEDICINE [place] [facility] [place] [facility] Sep 21, 2024 09:00 AM AMBULATORY - MEDICINE [place] [facility] [place] [facility] Sep 21, 2024 10:00 AM AMBULATORY - MEDICINE [place] [facility] [place] [facility] Nov 28, 2024 09:30 AM AMBULATORY - MEDICINE [place] [facility] [place] [facility] Dec 02, 2024 08:30 AM AMBULATORY - MEDICINE [place] [facility] [place] [facility] Active, Pending, and Scheduled Orders This section includes a listing of several types of active, pending, and scheduled orders, including clinic medications orders, diagnostic test orders, procedure orders and consult orders; where the start date of the order is 45 days before the date of the Encounter or 45 days after the date of theEncounter. The data comes from all [facility]. Test Date/Time Test Type Test Details Facility Name Jul 13, 2024 09:58 AM Consult Order PODIATRY/N HM OUTPT Cons Car Tracer's Choice [place] [facility] [place] [facility] Lab Results: +/- 30 days of the encounter This section includes the Chemistry and Hematology Lab Results on record with [place] for the patient. Radiology Reports and Pathology Reports are provided separately, in subsequent sections. Lab Results This section contains the Chemistry/Hematology Results that were resulted 30 days before or 30 daysafter the date of the Encounter. Date/Time Source Result Type Result - Unit Interpretation Reference Range Comment Jun 01, 2024 12:25 PM [place] [facility] [place] [facility] MICROALBUMIN CREATININE RATIO PANEL Specimen Type: URINE No comment entered. Ordering Provider: LINDA PERSON Report Released Date/Time: Jun 01, 2024 11:53 AM Reporting Lab: [facility] [address] [address] Performing Lab: [address] [address] MICROALBUMIN/C REATININE RATIO 10.8 mg/g 0-29.9 MICROALBUMIN,Q UANTITATIVE 1.1 mg/dL RR UNAVAIL CREATININE URINE 101.63 mg/dL Jun 01, 2024 10:38 AM [facility] HEMOGLOBIN A1C PANEL Specimen Type: BLOOD Comment: [...] May 30, 2024 10:29 AM Reporting Lab: [address] [address] Performing Lab: [address] [address] HEMOGLOBIN A1C 5.8 H 4.0-5.6 Jun 01, 2024 10:38 AM [facility] BASIC METABOLIC PANEL (non-fasting) Specimen Type: SERUM No comment entered. Ordering Provider: LINDA PERSON Report Released Date/Time: May 30, 2024 10:29 AM Reporting Lab: [address] [address] Performing Lab: [address] [address] UREA NITROGEN 13 mg/dL 7-25 GLUCOSE 115 mg/dL H 65-100 SODIUM 140 mmol/L 135-145 POTASSIUM 4.3 mmol/L 3.5-5.0 CHLORIDE 107 mmol/L 100-110 CO2 21 meq/L 20-30 CREATININE, Serum 0.84 mg/dL 0.50-1.40 eGFR(CKD-EPI 2020) >90 mL/min >60 Jun 01, 2024 10:38 AM [place] [facility] [place] [facility] LIPID PANEL, NON FASTING Specimen Type: SERUM No comment entered. Ordering Provider: LINDA PERSON Report Released Date/Time: Jun 01, 2024 10:12 AM Reporting [facility] [address] [address] Performing Lab: [facility] [address] [address] CHOLESTEROL 126 mg/dL TRIGLYCERIDE 114 mg/dL 0-150 LDL calculated 60 mg/dL 0-129 CHOL/HDL 2.9 HDL CHOLESTEROL 43 mg/dL 40-60 Social History: Smoking Status (Most current) and Tobacco Use (All prior to encounter date) This section includes the most current, and the historical, smoking and tobacco- related health factors from the [place] facility where the Encounter took place. Current Smoking Status This section includes the most current smoking, or tobacco-related health factor, from the [place] facility where the Encounter took place. Date/Time Current Smoking Status Comment [facility] Nov 27, 2023 11:00 AM [facility] [place] [facility] Tobacco Use History This section includes a history of the smoking, or tobacco-related health factors, that were collected on or before the date of the Encounter. The data comes from the [place] facility where the Encounter took place. Date/Time Smoking Status/Tobac co Use Comment Facility Nov 27, 2023 11:00 AM VA-TOBACCO QUIT 15 YRS OR MORE [place] [facility] [place] [facility] Dec 02, 2022 08:00 AM VA-TOBACCO FORMER USER [facility] [place] [facility] Dec 02, 2022 08:00 AM VA-TOBACCO QUIT 15 YRS OR MORE [facility] [place] [facility] Nov 05, 2021 10:30 AM VA-TOBACCO FORMER USER [facility] [place] [facility] Nov 05, 2021 10:30 AM VA-TOBACCO QUIT 1 TO < 5 YRS [place] [facility] [place] [facility] Sep 14, 2020 02:00 PM VA-TOBACCO FORMER USER [facility] [place] [facility] Sep 14, 2020 02:00 PM VA-TOBACCO QUIT 5 TO < 15 YRS [facility] Jan 22, 2018 03:40 PM QUIT TOBACCO USE > 7 YEARS AGO [facility] Jun 04, 2016 02:01 PM CURRENT SMOKER been smoking pass 20 yrs [facility] Jun 04, 2016 02:01 PM V1-PT DECLINES REF TO TOBACCO CESS PRGM [facility] Jun 04, 2016 02:01 PM V1-PT THINKING ABOUT QUIT TOBACCO USE [facility] Jul 18, 2014 03:31 PM V1-PT DECLINES REF TO TOBACCO CESS PRGM [facility] Jul 18, 2014 03:31 PM V1-PT DECLINES TOBACCO CESSATION MEDS [facility] Jul 18, 2014 03:31 PM V1-PT NOT INTERESTED IN QUIT TOBACCO USE [facility] Jan 09, 2014 10:43 AM CURRENT SMOKER pt smokes 1 pk of cigarettes per day. [facility] Jan 09, 2014 10:43 AM V1-PT THINKING ABOUT QUIT TOBACCO USE [facility] Aug 28, 2003 10:47 AM CURRENT SMOKER one pack q 6 days - he has cut down from 3 PPD. He is in the process of quitting [facility] Encounter Notes: All associated encounter notes This section contains the clinical notes associated to the Encounter. Date/Time Encounter Note(s) Provider Source Jun 03, 2024 02:57 PM CAREGIVER CERTIFIC ATE: LOCAL TITLE: CSP PCAFC PRIMARY CARE COLLABORATION STANDARD TITLE: CAREGIVER CERTIFICATE DATE OF NOTE: JUN 03, 2024@14:57 ENTRY DATE: JUN 03, 2024@14:57:41 AUTHOR: JESSICA CALLE COSIGNER: URGENCY: STATUS: COMPLETED As part of the Program of Comprehensive Assistance for Family Caregiver (PCAFC), the Caregiver Support Program (CSP) collaborates with the 's Primary Care Team to the maximum extent practicable. Primary Care Team means one or more dental assistant medical assistant who care for a patient based on the clinical needs of the patient. Primary Care Teams must include a [place] Primary Care Provider who is a physician, advanced practice nurse or a physician assistant facility manager. The CSP is seeking input and/or sharing documentation such as comprehensive assessments or progress notes that discuss ADL needs and/or supervision, protection or instruction needs; or a treatment plan. Primary Care Team members are not responsible for determining eligibility for the PCAFC. Documentation for collaboration should be within twelve months from the valid application received date or reassessment date, as applicable. Graham Name: CHAYA PEDRO Valid application received date or reassessment date, as applicable: May CSP staff collaborated (via email, phone, in-person) with the 's Primary Care Team and completed the following note based on information provided: Date of collaboration with Primary Care Team: May Name of provider: Bere Rios NP Specialty of provider: Primary Care SC Percent: 100% Rated Disabilities: NEUROSIS, DYSTHYMIC DISORD (70%-SC) SEIZURE DISORDER (100%-SC) Active problems - Computerized Problem List is [...] prostate cancer 20. Schizoaffective disorder (SNOMED CT 42851723) 21. Alcohol dependence (SNOMED CT 04947184) 22. Periodontal Disease NEC 23. GERD 24. Facial paresthesia 25. REFRACTION DISORDER NOS Active Outpatient Medications [...] TABLET BY MOUTH ACTIVE ONCE DAILY FOR ERECTILE DYSFUNCTION TAKE 1 HOUR PRIOR TO SEXUAL ACTIVITY Active Non-VA Medications Status 1) Non-VA MULTIVITAMIN/MINERALS CAP/TAB ONE CAP/TAB BY ACTIVE MOUTH ONCE DAILY 2) Non-VA OTHER CAP/TAB THC BY MOUTH TWICE DAILY ACTIVE 19 Total Medications Current treatment plan (to include timelines, frequency, and duration): Bere Rios NP reports, He follows with me every 6 months or sooner if needed. He takes all his medications as prescribed and needs help with filling his pill box. Graham is able to understand the current treatment plan:* Yes has potential for improvement in functioning:* No Additional details: no additional details provided Caregiver is actively involved in the care of the :* Yes Describe caregiver's involvement: Bere Rios NP reports, Caregiver is always with the , also helps with bathing, dressing, cooking, all IADLs, and driving. Caregiver is able to follow the current treatment plan:* Yes The care needs of the can be safely provided in a home setting:* Yes The is being recommended for institutional care:* No List the date/title of any documentation for above information: LOCAL TITLE: NURSE PRACTITIONER OUTPATIENT NOTE STANDARD TITLE: PRIMARY CARE NURSE PRACTITIONER OUTPATIENT NOTE DATE OF NOTE: JUN 01, 2024@11:56 ENTRY DATE: JUN 01, 2024@11:56:15 AUTHOR: BERE RIOS Add any additional clinical information outside of what has already been documented which may assist the Centralized Eligibility and Appeals Team (CEAT) in their determination of 's eligibility: Bere Rios NP, 's assigned primary care provider provided the below mentioned summary: Yeimi Pedro is 68 yo with pm, hx of SZ history although has been SZ free last was a few years ago but he still gets flashes in eyes and has had blurry vision he does not feels safe being alone ever, his current caregiver ) is with him 100% of the time. He Has PTSD but that is well controlled, also with occasional unsteady gait and h/o falls but none recently. Per neuro note from 2021 Pt w/recent episode of paresthesia of the L face, neck and arm, with negative MRI. 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 Other possibilities include TIA, myofascial pain, referred pain, migraine, HTN, effect of MJ. -Pt to restart his Keppra, and take consistently -Will get MRA head (w/o contrast) to evaluate for stenosis of R MCA (CUS already completed, negative) /gaetano/ JESSICA HOUSER LCSW CAREGIVER SUPPORT OVERLAY PLASTICIAN Signed: 06/03/2024 15:10 Receipt Acknowledged By: 06/03/2024 15:12 /gaetano/ CIERRA GREGORY Nurse Practitioner JESSICA CALLE [facility]
--- OUTSIDE RECORDS SUMMARY | 2024-11-01 08:03 | XMS_ITS | Encounter Summary ---
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 Mechanical Technician Name Role Phone ELIZABET ROBINS Primary Care [...] Name Patient's Relationship to Policy [facility] CE ORGANIZ LOCATED WITHIN [facility] AC Apr 18, 2018 [id number] WILLIS,MAR JUDITH SPOUSE ANTHEM BCBS OF [place] (BLUECARD) [facility] MAIN[facility]STINA CE ORGANIZ [facility]EN [facility] Apr 18, 2018 [id number] [phone] WILLIS,MAR JUDITH SPOUSE BCBS [facility] CE ORGANIZ [facility] ACTIV E Apr 18, 2018 [id number] WILLIS,MAR JUDITH SPOUSE [facility] Apr 18, 2018 [id number] WILLIS,MAR JUDITH PATIENT BCBS OF [facility] CE ORGANIZ BRENDA MCCABE [facility] Apr 18, 2018 [id number] WILLIS,MAR JUDITH SPOUSE [place] OF [place] PREFERRED PROVIDER ORGANIZAT ION (PPO) BRENDA MCCABE [facility] AC Apr 18, 2018 [id number] WILLIS,MAR JUDITH SPOUSE BCBS OF [facility] CE ORGANIZ BRENDA MCCABE [facility] ACT Apr 18, 2018 [id number] WILLIS,MAR JUDITH SPOUSE BCBS OF [facility] CE ORGANIZ BRENDA MCCABE [facility] AC Apr 18, 2018 [id number] [phone] WILLIS,MAR JUDITH SPOUSE [place] PRESCRIPT ION BRENDA MCCABE [facility] AC Oct 19, 2022 [id number] [phone] WILLIS,LAVELLE AEL SPOUSE [place] PRESCRIPT ION [place] OF [place] Oct 19, 2022 [phone] WILLIS, SPOUSE [place] PRESCRIPT ION RX22M A Oct 19, 2022 RX22MA [id number] WILLIS,LAVELLE AEL PATIENT [place] PRESCRIPT ION RX22M B Oct 19, 2022 [id number] WILLIS,LAVELLE AEL PATIENT [place] PRESCRIPT ION RX22M B Oct 19, 2022 RX22MB [id number] [phone] WILLIS,MAR JUDITH SPOUSE [place] PRESCRIPT ION RX Oct 19, 2022 [id number] [phone] WILLIS,MAR JUDITH SPOUSE [place] ([id number]) PRESCRIPT ION [place] Oct 19, 2022 [id number] WILLIS,MAR JUDITH SPOUSE [place] ([facility] CE ORGANIZ BRENDA MCCABE [facility] AC Apr 18, 2018 [id number] WILLIS,EDILBERTO SOTELOZA SPOUSE [employer] PRESCRIPT I[place] 2018 L4TA [id number] WILLIS,EDILBERTO SOTELOZA SPOUSE [employer] ([id number]) PRESCRIPT ION Apr 18, 2018 L4TA [id number] WILLIS,EDILBERTO SOTELOZA SPOUSE [employer] ([id number]) PRESCRIPT ION L4TA* Apr 18, 2020 L4TA [id number] WILLIS,EDILBERTO PALAFOXA SPOUSE [employer] ([id number]) PRESCRIPT ION L4TA* Apr 18, 2018 L4TA [id number] WILLIS,EDILBERTO PALAFOXA SPOUSE [employer] ([id number]) PRESCRIPT ION L4TA Apr 18, 2018 L4TA [id number] WILLIS,EDILBERTO WONG SPOUSE [employer] ([id number]) PRESCRIPT ION Apr 18, 2018 L4TA [id number] WILLISEDILBERTO SPOUSE [employer] ([id number]) PRESCRIPT ION Apr 18, 2018 L4TA [id number] WILLIS,EDILBERTO WONG SPOUSE [employer]-MINOR BROGATION PRESCRIPT ION [place] Apr 18, 2020 L4TA [id number] WILLIS,EDILBERTO WONG SPOUSE [facility] CE ORGANIZAT ION W/OUT OF NETWORK BENEFITS HITRISTEN MCCABE [facility] ACT Apr 18, 2018 [id number] WILLISEDILBERTO SPOUSE [place] BCBS [facility] (BLUECARD) [facility] CE ORGANIZAT ION [facility] AC Apr 18, 2018 [id number] WILLISEDILBERTO SPOUSE MEDICARE (WNR) MEDICARE (M) PART A Mar 19, 1990 PART A [id number] [phone] WILLIS,LAVELLE AEL PATIENT MEDICARE (WNR) MEDICARE (M) PART A Mar 19, 1990 PART A [id number] WILLIS,LAVELLE AEL PATIENT MEDICARE (WNR) MEDICARE (M) PART A Mar 19, 1990 PART A [id number] WILLIS,LAVELLE AEL PATIENT MEDICARE (WNR) MEDICARE (M) PART A Mar 19, 1990 PART A [id number] [phone] WILLIS,LAVELLE AEL PATIENT MEDICARE (WNR) MEDICARE (M) PART A Mar 19, 1990 PART A [id number] WILLIS,LAVELLE AEL PATIENT MEDICARE (WNR) MEDICARE (M) PART A Mar 19, 1990 PART A [id number] WILLIS,LAVELLE AEL PATIENT MEDICARE (WNR) MEDICARE (M) PART A Mar 19, 1990 PART A [id number] WILLIS,LAVELLE AEL PATIENT MEDICARE (WNR) MEDICARE (M) PART A Mar 19, 1990 PART A [id number] WILLIS,LAVELLE AEL PATIENT MEDICARE (WNR) MEDICARE (M) PART A Mar 19, 1990 PART A [id number] [phone] WILLIS,LAVELLE AEL PATIENT MEDICARE (WNR) MEDICARE (M) PART A Mar 19, 1990 PART A [id number] [phone] WILLIS,LAVELLE AEL PATIENT MEDICARE (WNR) MEDICARE (M) PART A Mar 19, 1990 PART A [id number] WILLIS,LAVELLE AEL PATIENT Selected Encounter This section includes the information on record at [place] for the Encounter. Date/Time Encounter Type Encounter Description Reason Pro vider Source Jun 03, 2024 03:21 PM Outpatient Encounter ADMIN PAT ACTIVTIES (MASNONCT) [...] 20 appointments. The data comes from all [facility]. Appointment Date/Time Appointment Type Appointme nt Facility Name Jun 28, 2024 11:30 AM AMBULATORY - MEDICINE [place] [facility] [place] [facility] Jul 08, 2024 10:30 AM AMBULATORY - MEDICINE [place] [facility] [place] [facility] Jul 13, 2024 09:30 AM AMBULATORY - MEDICINE [place] [facility] [place] [facility] Aug 12, 2024 09:30 AM AMBULATORY - MEDICINE [place] [facility] [place] [facility] Aug 22, 2024 09:00 AM AMBULATORY - MEDICINE [place] [facility] [place] [facility] Sep 21, 2024 09:00 AM AMBULATORY - MEDICINE [place] [facility] [place] [facility] Sep 21, 2024 10:00 AM AMBULATORY - MEDICINE [place] [facility] [place] [facility] Nov 28, 2024 09:30 AM AMBULATORY - MEDICINE [place] [facility] [place] [facility] Dec 02, 2024 08:30 AM AMBULATORY - MEDICINE [place] [facility] [place] [facility] Active, Pending, and Scheduled Orders This section includes a listing of several types of active, pending, and scheduled orders, including clinic medications orders, diagnostic test orders, procedure orders and consult orders; where the start date of the order is 45 days before the date of the Encounter or 45 days after the date of theEncounter. The data comes from all [facility]. Test Date/Time Test Type Test Details Facility Name Jul 13, 2024 09:58 AM Consult Order PODIATRY/N HM OUTPT Cons Sheet Rock [employer]er[employer] [place] [facility] [place] [facility] Lab Results: +/- 30 days of [...] Range Comment Jun 01, 2024 12:25 PM [place] [facility] [place] [facility] MICROALBUMIN CREATININE RATIO PANEL Specimen Type: URINE No comment entered. Ordering Provider: LINDA PERSON Report Released Date/Time: Jun 01, 2024 11:53 AM Reporting Lab: [facility] [address] [facility] [id number] Performing Lab: [address] [address] MICROALBUMIN/C REATININE RATIO 10.8 mg/g 0-29.9 MICROALBUMIN,Q UANTITATIVE 1.1 mg/dL RR UNAVAIL CREATININE URINE 101.63 mg/dL Jun 01, 2024 10:38 AM [facility] HEMOGLOBIN A1C PANEL Specimen Type: BLOOD Comment: [...] May 30, 2024 10:29 AM Reporting Lab: [address] [address] Performing Lab: [address] [address] HEMOGLOBIN A1C 5.8 H 4.0-5.6 Jun 01, 2024 10:38 AM [facility] BASIC METABOLIC PANEL (non-fasting) Specimen Type: SERUM No comment entered. Ordering Provider: LINDA PERSON Report Released Date/Time: May 30, 2024 10:29 AM Reporting Lab: [address] [address] Performing Lab: [address] [address] UREA NITROGEN 13 mg/dL 7-25 GLUCOSE 115 mg/dL H 65-100 SODIUM 140 mmol/L 135-145 POTASSIUM 4.3 mmol/L 3.5-5.0 CHLORIDE 107 mmol/L 100-110 CO2 21 meq/L 20-30 CREATININE, Serum 0.84 mg/dL 0.50-1.40 eGFR(CKD-EPI 2020) >90 mL/min >60 Jun 01, 2024 10:38 AM [place] [facility] [place] [facility] LIPID PANEL, NON FASTING Specimen Type: SERUM No comment entered. Ordering Provider: LINDA PERSON Report Released Date/Time: Jun 01, 2024 10:12 AM Reporting [facility]: [facility] [address] [facility] [address] Performing Lab: [facility] [address] [facility] [address] CHOLESTEROL 126 mg/dL TRIGLYCERIDE 114 mg/dL 0-150 [...] took place. Date/Time Current Smoking Status Comment [facility] Nov 27, 2023 11:00 AM [facility] [place] [facility] Tobacco Use History This section includes a history of the smoking, or tobacco-related health factors, that were collected on or before the date of the Encounter. The data comes from the [place] facility where the Encounter took place. Date/Time Smoking Status/Tobac co Use Comment Facility Nov 27, 2023 11:00 AM VA-TOBACCO QUIT 15 YRS OR MORE [facility] [place] [facility] Dec 02, 2022 08:00 AM VA-TOBACCO FORMER USER [facility] [place] [facility] Dec 02, 2022 08:00 AM VA-TOBACCO QUIT 15 YRS OR MORE [facility] [place] [facility] Nov 05, 2021 10:30 AM VA-TOBACCO FORMER USER [facility] [place] [facility] Nov 05, 2021 10:30 AM VA-TOBACCO QUIT 1 TO < 5 YRS [facility] [place] [facility] Sep 14, 2020 02:00 PM VA-TOBACCO FORMER USER [facility] [place] [facility] Sep 14, 2020 02:00 PM VA-TOBACCO QUIT 5 TO < 15 YRS [facility] Jan 22, 2018 03:40 PM QUIT TOBACCO USE > 7 YEARS AGO [facility] Jun 04, 2016 02:01 PM CURRENT SMOKER been smoking pass 20 yrs [facility] Jun 04, 2016 02:01 PM V1-PT DECLINES REF TO TOBACCO CESS PRGM [facility] Jun 04, 2016 02:01 PM V1-PT THINKING ABOUT QUIT TOBACCO USE [facility] Jul 18, 2014 03:31 PM V1-PT DECLINES REF TO TOBACCO CESS PRGM [facility] Jul 18, 2014 03:31 PM V1-PT DECLINES TOBACCO CESSATION MEDS [facility] Jul 18, 2014 03:31 PM V1-PT NOT INTERESTED IN QUIT TOBACCO USE [facility] Jan 09, 2014 10:43 AM CURRENT SMOKER pt smokes 1 pk of cigarettes per day. [facility] Jan 09, 2014 10:43 AM V1-PT THINKING ABOUT QUIT TOBACCO USE [facility] Aug 28, 2003 10:47 AM CURRENT SMOKER one pack q 6 days - he has cut down from 3 PPD. He is in the process of quitting [facility] Encounter Notes: All associated encounter notes This section contains the clinical notes associated to the Encounter. Date/Time Encounter Note(s) Provider Source Jun 03, 2024 03:21 PM CAREGIVER CERTIFIC ATE: LOCAL TITLE: CSP ADMINISTRATIVE NOTE STANDARD TITLE: CAREGIVER CERTIFICATE DATE OF NOTE: JUN 03, 2024@15:21 ENTRY DATE: JUN 03, 2024@15:21:22 AUTHOR: JESSICA CALLE COSIGNER: URGENCY: STATUS: COMPLETED Ui Developer called 's /caregiver at . Ui Developer reached 's /caregiver. Ui Developer introduced herself and her role during their CSP PCAFC application process. Ui Developer and caregiver scheduled a CSP PCAFC and caregiver assessment on 06/14/24 @ 9am via [place] [facility]. 's /caregiver agreed to contact this selling underwriter if is hospitalized, and if she has any further questions and or concerns. /gaetano/ JESSICA HOUSER LCSW CAREGIVER SUPPORT AGRICULTURE PROFESSOR Signed: 06/03/2024 15:23 JESSICA CALLE [place] [facility]
--- OUTSIDE RECORDS SUMMARY | 2024-11-01 08:03 | XMS_ITS ---
Author Name [facility] [place] [facility] [place] Address [address] [place] [address] Care Team Providers Care Food Editor Name Role Phone BERE RIOS Primary Care [...] Patient's Relationship to Policy Paul [facility] CE ORGANIZ [facility] AC Apr 18, 2018 [id number] [phone] WILLIS,MAR JUDITH SPOUSE ANTHEM BC[place] OF [place] ([place]ARD) [facility] ORGANIZ [facility] Apr 18, 2018 [id number] WILLIS,MAR JUDITH SPOUSE BCBS [facility] CE ORGANIZ [facility] SHARE ACTIV E Apr 18, 2018 [id number] WILLIS,MAR JUDITH SPOUSE BCBS OF [facility] CE ORGANIZ [facility] Apr 18, 2018 [id number] [phone] WILLIS,MAR JUDITH PATIENT BCBS OF [facility] CE ORGANIZ [facility] Apr 18, 2018 [id number] WILLIS,MAR JUDITH SPOUSE BCBS OF [place] PREFERRED PROVIDER ORGANIZAT ION (PPO) [facility] AC Apr 18, 2018 [id number] WILLIS,MAR JUDITH SPOUSE BCBS OF [facility] CE ORGANIZ [facility] ACT Apr 18, 2018 [id number] WILLIS,MAR JUDITH SPOUSE BCBS OF [facility] CE ORGANJAVY [facility] AC Apr 18, 2018 [id number] [phone] WILLIS,MAR JUDITH SPOUSE [place] PRESCRIPT ION RX Oct 19, 2022 [id number] WILLIS,MAR JUDITH SPOUSE [place] PRESCRIPT ION RX22M A Oct 19, 2022 [id number] WILLIS,LAVELLE AEL PATIENT [place] PRESCRIPT ION RX22M B Oct 19, 2022 [id number] WILLIS,LAVELLE AEL PATIENT [place] PRESCRIPT ION [facility] AC Oct 19, 2022 [id number] [phone] WILLIS,LAVELLE AEL SPOUSE [place] PRESCRIPT ION RX22M B Oct 19, 2022 [id number] [phone] WILLIS,MAR JUDITH SPOUSE [place] PRESCRIPT [place] Oct 19, 2022 [id number] WILLIS, SPOUSE [place] ([id number]) PRESCRIPT I[place] Oct 19, 2022 [id number] WILLIS,MAR JUDITH SPOUSE [place] BC[place] ([facility] CE ORGANIZ [facility] AC Apr 18, 2018 [id number] [phone] WILLIS,EDILBERTO WONG SPOUSE [employer] PRESCRIPT ION [place] 2018 L4TA [id number] WILLISEDILBERTO SPOUSE [employer] ([id number]) PRESCRIPT ION Apr 18, 2018 L4TA [id number] WILLIS,EDILBERTO WONG SPOUSE [employer] ([id number]) PRESCRIPT ION L4TA* Apr 18, 2020 L4TA [id number] WILLISEDILBERTOA SPOUSE [employer] ([id number]) PRESCRIPT ION Apr 18, 2018 L4TA [id number] WILLISEDILBERTO SPOUSE [employer] ([id number]) PRESCRIPT ION Apr 18, 2018 L4TA [id number] WILLIS,EDILBERTO WONG SPOUSE [employer] ([id number]) PRESCRIPT ION L4TA* Apr 18, 2018 L4TA [id number] WILLISEDILBERTO SPOUSE [employer] ([id number]) PRESCRIPT ION L4TA Apr 18, 2018 L4TA [id number] WILLISEDILBERTO SPOUSE [employer]-MINOR BROGATION PRESCRIPT I[place] Apr 18, 2020 L4TA [id number] WILLIS,EDILBERTO WONG SPOUSE [facility] CE ORGANIZAT ION W/OUT OF NETWORK BENEFITS [facility]EN [facility] ACT Apr 18, 2018 [id number] WILLISEDILBERTO SPOUSE [place] BCBS [facility] (BLUECAR) [facility] CE ORGANIZAT ION [facility] AC Apr 18, 2018 [id number] [phone] WILLISEDILBERTO SPOUSE MEDICARE (WNR) MEDICARE (M) PART A Mar 19, 1990 PART A [id number] WILLIS,LAVELLE AEL PATIENT MEDICARE (WNR) MEDICARE (M) PART A Mar 19, 1990 PART A [id number] [phone] WILLIS,LAVELLE AEL PATIENT MEDICARE (WNR) MEDICARE (M) PART A Mar 19, 1990 PART A [id number] [phone] WILLIS,LAVELLE AEL PATIENT MEDICARE (WNR) MEDICARE (M) PART A Mar 19, 1990 PART A [id number] [phone] WILLIS,LAVELLE AEL PATIENT MEDICARE (WNR) MEDICARE (M) PART A Mar 19, 1990 PART A [id number] [phone] WILLIS,LAVELLE AEL PATIENT MEDICARE (WNR) MEDICARE (M) PART A Mar 19, 1990 PART A [id number] WILLIS,LAVELLE AEL PATIENT MEDICARE (WNR) MEDICARE (M) PART A Mar 19, 1990 PART A [id number] [phone] WILLIS,LAVELLE AEL PATIENT MEDICARE (WNR) MEDICARE (M) PART A Mar 19, 1990 PART A [id number] [phone] WILLIS,LAVELLE AEL PATIENT MEDICARE (WNR) MEDICARE (M) PART A Mar 19, 1990 PART A [id number] [phone] WILLIS,LAVELLE AEL PATIENT MEDICARE (WNR) MEDICARE (M) PART A Mar 19, 1990 PART A [id number] [phone] WILLIS,LAVELLE AEL PATIENT MEDICARE (WNR) MEDICARE (M) PART A Mar 19, 1990 PART A [id number] [phone] WILLIS,LAVELLE AEL PATIENT Selected Encounter This section includes the information [place] record at [place] for the Encounter. Date/Time Encounter Type Encounter Description Reason Provider Source Jun 14, 2024 08:55 AM [facility] ASSMT/REASSESSM ENT CAREGIVER SUPPORT PROGRAM ICD-10-CM Z74.1 Need for assistance with personal care JESSICA CALLE Encounter Template Text not used by [facility] Assessments - Encounter Diagnoses This section includes the primary and secondary diagnoses documented for the Encounter. Date/Time Primary/Secondary Diagnosis Diagnosis Name Provider Source Jun 30, 2024 07:20 AM PRIMARY Need for assistance with personal care [facility] CALLE [place] [facility] [place] [facility] Plan of Treatment: Future Appointments (+ 6 months) and Future Tests (+/- 45 days) The Plan of Treatment section includes future care activities for the [place] from [facility] [place] [facility] This section includes future appointments and future orders which are active, pending or scheduled. Future Appointments This section includes appointments that were scheduled to occur 6 months from the date of the Encounter, up to a maximum of 20 appointments. The data comes from all [facility]. Appointment Date/Time Appointment Type Appointme nt Facility Name Jun 28, 2024 11:30 AM [place]IC[place] [facility] [facility] Jul 08, 2024 10:30 AM [place]ICINE [place] [facility] Jul 13, 2024 09:30 AM [place] [facility] Aug 12, 2024 09:30 AM [place] [facility] Aug 22, 2024 09:00 AM [place] [facility] Sep 21, 2024 09:00 AM [place] [facility] Sep 21, 2024 10:00 AM AM[place] [facility] Nov 28, 2024 09:30 AM [place] [facility] Dec 02, 2024 08:30 AM AMBULATORY - MEDICINE [facility] [place] [facility] Active, Pending, and Scheduled Orders This section includes a listing of several types of active, pending, and scheduled orders, including clinic medications orders, diagnostic test orders, procedure orders and consult orders; where the start date of the order is 45 days before the date of the Encounter or 45 days after the date of theEncounter. The data comes from all [facility]. Test Date/Time Test Type Test Details Facility Name Jul 13, 2024 09:58 AM Consult Order PODIATRY/N HM OUTPT Cons Delivery Truck Driver's Choice [facility] Lab Results: +/- 30 days of the encounter This section includes the Chemistry and Hematology Lab Results on record with [place] for the patient. Radiology Reports and Pathology Reports are provided separately, in subsequent sections. Lab Results This section contains the Chemistry/Hematology Results that were resulted 30 days before or 30 daysafter the date of the Encounter. Date/Time Source Result Type Result - Unit Interpretation Reference Range Comment Jun 01, 2024 12:25 PM [facility] MICROALBUMIN CREATININE RATIO PANEL Specimen Type: URINE No comment entered. Ordering Provider: LINDA PERSON Report Released Date/Time: Jun 01, 2024 11:53 AM Reporting [facility] [place] [facility] [address] [address] Performing Lab: [facility] [address] MICROALBUMIN/C REATININE RATIO 10.8 mg/g 0-29.9 MICROALBUMIN,Q UANTITATIVE 1.1 mg/dL RR UNAVAIL CREATININE URINE 101.63 mg/dL Jun 01, 2024 10:38 AM [facility] HEMOGLOBIN A1C PANEL Specimen Type: BLOOD [...] May 30, 2024 10:29 AM Reporting Lab: [facility] [place] [facility] [address] [address] Performing Lab: [facility] [address] HEMOGLOBIN A1C 5.8 H 4.0-5.6 Jun 01, 2024 10:38 AM [facility] BASIC METABOLIC PANEL (non-fasting) Specimen Type: SERUM No comment entered. Ordering Provider: LINDA PERSON Report Released Date/Time: May 30, 2024 10:29 AM Reporting Lab: [facility] [place] [address] [address] Performing Lab: [facility] [address] [address] UREA NITROGEN 13 mg/dL 7-25 GLUCOSE 115 mg/dL H 65-100 SODIUM 140 mmol/L 135-145 POTASSIUM 4.3 mmol/L 3.5-5.0 CHLORIDE 107 mmol/L 100-110 CO2 21 meq/L 20-30 CREATININE, Serum 0.84 mg/dL 0.50-1.40 eGFR(CKD-EPI 2020) >90 mL/min >60 Jun 01, 2024 10:38 AM [facility] LIPID PANEL, NON FASTING Specimen Type: SERUM No comment entered. Ordering Provider: LINDA PERSON Report Released Date/Time: Jun 01, 2024 10:12 AM Reporting Lab: [facility] [address] [address] Performing Lab: [address] [address] CHOLESTEROL 126 mg/dL TRIGLYCERIDE 114 mg/dL 0-150 LDL calculated 60 mg/dL 0-129 CHOL/HDL 2.9 HDL CHOLESTEROL 43 mg/dL 40-60 Social History: Smoking Status (Most current) and Tobacco Use (All prior to encounter date) This section includes the most current, and the historical, smoking and tobacco- related health factors from the [place] facility where the Encounter took place. Current Smoking Status This section includes the most current smoking, or tobacco-related health factor, from the [place] facility where the Encounter took place. Date/Time Current Smoking Status Comment Enrique mancia Nov 27, 2023 11:00 AM [place]-TOBAC[place] QUIT 15 YRS OR MORE [facility] Tobacco Use History This section includes a history of the smoking, or tobacco-related health factors, that were collected on or before the date of the Encounter. The data comes from the [place] facility where the Encounter took place. Date/Time Smoking Status/Tobac co Use Comment Facility Nov 27, 2023 11:00 AM [place]-TO[place] QUIT 15 YRS OR MORE [facility] Dec 02, 2022 08:00 AM [place]-TOBACCO FORMER USER [facility] Dec 02, 2022 08:00 AM [place]-TOBACCO QUIT 15 YRS OR MORE [facility] Nov 05, 2021 10:30 AM VA-TOBACCO FORMER USER [facility] Nov 05, 2021 10:30 AM VA-TOBACCO QUIT 1 TO < 5 YRS [facility] Sep 14, 2020 02:00 PM VA-TOBACCO FORMER USER [facility] Sep 14, 2020 02:00 PM VA-TOBACCO QUIT 5 TO < 15 YRS [facility] Jan 22, 2018 03:40 PM QUIT TOBACCO USE > 7 YEARS AGO [facility] Jun 04, 2016 02:01 PM CURRENT SMOKER been smoking pass 20 yrs [facility] Jun 04, 2016 02:01 PM V1-PT DECLINES REF TO TOBACCO CESS PRGM [facility] Jun 04, 2016 02:01 PM V1-PT THINKING ABOUT QUIT TOBACCO USE [facility] Jul 18, 2014 03:31 PM V1-PT DECLINES REF TO TOBACCO CESS PRGM [facility] Jul 18, 2014 03:31 PM V1-PT DECLINES TOBACCO CESSATION MEDS [facility] Jul 18, 2014 03:31 PM V1-PT NOT INTERESTED IN QUIT TOBACCO USE [facility] Jan 09, 2014 10:43 AM CURRENT SMOKER pt smokes 1 pk of cigarettes per day. [facility] Jan 09, 2014 10:43 AM V1-PT THINKING ABOUT QUIT TOBACCO USE [facility] Aug 28, 2003 10:47 AM CURRENT SMOKER one pack q 6 days - he has cut down from 3 PPD. He is in the process of quitting [facility] Encounter Notes: All associated encounter notes This section contains the clinical notes associated to the Encounter. Date/Time Encounter Note(s) Provider Source Jun 14, 2024 09:00 AM CAREGIVER CERTIFIC ATE: LOCAL TITLE: CSP PCAFC ASSESSMENT STANDARD TITLE: CAREGIVER CERTIFICATE DATE OF NOTE: JUN 14, 2024@09:00 ENTRY DATE: JUN 14, 2024@09:00:42 AUTHOR: JESSICA CALLE COSIGNER: URGENCY: STATUS: COMPLETED Program of Comprehensive Assistance for Family Caregivers Assessment The Program of Comprehensive Assistance for Family Caregivers (PCAFC) provides services and additional benefits to designated and approved Family Caregivers of eligible Veterans who incurred or aggravated a serious injury in the line of duty and is for individuals in need of personal care services for a minimum of six continuous months based on any one of the following: (i) An inability to perform an activity of daily living; or (ii) A need for supervision, protection, or instruction. In addition to other eligibility requirements, the PCAFC must also be found to be in the best interest of the individual in order to participate in the program. Date of assessment: 06/14/24 Time spent in session: 90 Identified the using full name and the following other woods identifier(s): Full name: CHAYA PEDRO SSN: [id number] Date of : Nov Method of Contact: Video Telehealth [place] confirms location is safe and private for visit. Contact Details: Best contact number for backup/emergency communication: PATIENT PHONE - Location/Surroundings During Visit: [place] location during visit: [place] [id number] Visit conducted by clinical video telehealth. verbal consent obtained. Location/emergency number confirmed. Reviewed limits of confidentiality with the and caregiver/applicant(s). Brief description of why the and caregiver/applicant(s) are applying to or participating in the program: Vet reports, My was working. I was by myself. I fell many times. I'm epileptic. When I'm by myself I have to wear my helmet. I hurt my head, my back, and dislocated my shoulder. I called the ambulance. I'm afraid to stay by myself. CG reports, We are applying because I have to be home to keep him safe and take care of him. CURRENT LIVING SITUATION The following live in the [place]'s household: Name: Katie Pedro Age: 68 Relationship: Special needs: none reported Name: Jessica Pedro Age: 12 Relationship: granddaughter Special needs: none reported The [place] does not provide care for anyone in the household. The [place] participates in care of the home/property. Activities that participates in and level of involvement: Vet reports, I pass the dust mop. I vacuum. I do dishes. I help out. I feed the birds. I feed and take care of the dog. When the dog does her thing I clean her pad. Not much cleaning. I do what I can. Not like before. I can't help her like I use to. The [place] does not drive independently. When did [place] last drive: 3 years ago Additional information: Vet reports, I stopped on my own. I have problems with my eyes. I get these flashes. When I get the flashes is one of the things that make me fall. I also loose my vision all together. I lost my vision four times. I put hands up. You can't do that when you fall. The doctors said they can change my lenses and give me more meds but I still got the flashes. EMPLOYMENT HISTORY The is not currently employed. When was last employed? 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 EDUCATION HISTORY The [place] does not have any barriers to education. The is not attending school. The is or wishes to pursue enrollment: No SOCIAL HISTORY What does the 's typical day look like? Vet reports, I get up at 5am. I wake up my because I need help with taking my pants off. She helps me with my clothes and in the bathroom. She goes back to bed. I come into the Livingroom. I pray. I take care of my little dog and my birds. I open the windows and I wait until my gets up. During the day I do what I have to do around the house. I like to bother my so we can do something. CG reports, He sits. He reads. He plays with the dog and complains most of the time. He'll take out whatever I ask him to take out for dinner. Vet states, I go to the garage, go through our freezer and the pantry. I bring back whatever she wants me to for dinner. Its small but its a way for me to help out. CG reports, His typical day he'll have his three meals, he'll clean the bird cage, he'll talk on the phone with his nephew, and prays a lot. CG and vet report 's hobby use to be cleaning. reports, I use to be put my salsa and merengue and clean. I kept falling and getting hurt. I tried to hide it from her but she'll find me bruised up. Vet and CG report typically is in bed by 7:30pm. What does the do for leisure/relaxation? Vet reports, I like to read. I like to listen to music. I use to like to play the conga but my hands hurt. I can no longer play with instruments. Play with my birds and spend time with my dog. I cant do much with her but atleast I try to talk to my granddaughter. We have custody of her. CURRENT PROVIDERS The is currently receiving VA Primary Care or [facility] Care in the Community Primary Care. Provider's name: Bere Rios NP last appt 06/01/24 The [place] is currently receiving VA specialty care. Provider's name: Optometry NABILA STERLING, OPTOMETRY STUDENT & DHAVAL CRAIG OD last appt 01/13/24 Endocrine - Dr. Lucie Purcell last appt 12/07/23 Pertinent notes Neurology 07/08/22 OT 11/19/21 The is not currently receiving VA Mental Health or Substance Use treatment. The receives care outside of VA. Details: [facility] [address] [facility] [address] [facility] [facility] [address] [phone] TAX ID #[id number] Dr. Simmons, last time saw him in 02/2024, next TBD kidney stones, pending surgery [address] [address] P:[phone] F:[phone] last appt April 2024 The has JIM on file. Date of release: Community care providers The [place] will be submitting community records for inclusion in their VA medical record. Type of records: Urology & Dental MEDICAL HISTORY Significant past medical history/treatment: Kidney stones - 1976 head injury which led to a dx of epilepsy. [facility] hospitalization. Vet reports he began to experience seizures since that time. - ?? Dislocated left shoulders While in the service - 2021 dx with DM Vet reports vision difficulties, in where he will have flashes of light making it difficult for him to see. [place] reports his left eye is often blurry and has vision loss. Vet reports he has frequent infections on his left eye and is often treated with antibiotics. Vet reports, I'll have these infections for the rest of my life. I have to put drops in them and then a spray. At night when is time to go to sleep I have to put a mask (microwave for 20sec) and put them on my eyes. Vet reports if he feels a seizure coming on he'll remain in bed all day. Vet reports aside from DM, seizure disorder, he also carries a dx of Sleep apnea, diverticulitis, GERD, Galeas's esophagus, hyperlipidemia, kidney stones ER in the past year 05/19/24 [facility] - ER facial numbness (left side) 04/19/24 [facility] ER facial numbness (left side) 04/21/24 [facility] ER facial numbness and loss vision 03/21/24 [facility] ER chest pain and difficulties swallowing. [facility]: ER uploaded 04/19/24, 04/20/24, 03/21/24 Urology uploaded 03/04/24, 12/01/23 Renal ultrasound, uploaded 02/18/24, 11/13/23 The has chronic pain. Pain is primarily located: eyes, knees, back Expectations for treatment: Monitoring Impact of pain on quality of life: Vet reports, Sometimes I have to just sit down. I just cant go after my dog. CG reports, He'll sit in his chair with his eyes closed, with the TV on, when he experiences pain. He'll complain he can't walk because of his knees. Current pharmacological treatments for pain: Lidocaine patches 5% Tylenol 2 tab, 500 mg as needed Advil 250mg Acetaminophen/125mg of Ibuprofen dual action Compliance with pain medications: With cg support Nonpharmacological treatments for pain: Massages, [place] reports, I do a lot of cold and hot compresses. Heating pads help. I move my legs exercises. The does not have a typical exercise/activity routine. The [place] reports concerns regarding memory and/or cognition. How does this impact 's daily activities? zahrat reports difficulties with short term memory The has not had formal testing related to memory/cognition. 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 Vet reports, I take medical marijuana drops because it helps with the seizures. On I have me a good drink of 'mamajuana' (traditional drink) on but that's it. [facility] dual dx admissions 01/10/98-01/15/98 06/04/99-06/05/99 03/23/01-04/29/01 08/09/02-08/11/02 [place] reports a PTSD dx as a result of his experience. Medical records indicate carried past dx of Bipolar d/o and Schizoaffective disorder. Zahrat reports in the he had multiple inpatient dual dx admissions however they have decreased and then ceased after he stopped abusing etoh and cocaine. [place] reports he's been involved with outpatient mental health tx off and on since the . [place] last saw Dr. RENO FAULKNER on 11/30/01 at the [facility]. Zahrat denies any past hx of suicide attempts. PHQ-2 A PHQ-2 screen was performed. The score was 1 which is a negative screen for depression. Over the past two weeks, how often have you been bothered by the following problems? 1. Little interest or pleasure in doing things Not at all 2. Feeling down, depressed, or hopeless Several days PHQ-9 A PHQ-9 screen was performed. The score was 1 which is suggestive of no depression. 1. Little interest or pleasure in doing things Not at all 2. Feeling down, depressed, or hopeless Several days 3. Trouble falling or staying asleep, or sleeping too much Not at all 4. Feeling tired or having little energy Not at all 5. Poor appetite or overeating Not at all 6. Feeling bad about yourself or that you are a failure or have let yourself or your family down Not at all 7. Trouble concentrating on things, such as reading the newspaper or watching television Not at all 8. Moving or speaking so slowly that other people could have noticed. Or the opposite being so fidgety or restless that you have been moving around a lot more than usual Not at all 9. Thoughts that you would be better off or of hurting yourself in some way Not at all 10. If you checked off any problems, how DIFFICULT have these problems made it for you to do your work, take care of things at home or get along with other people? Not difficult at all [place] Suicide Severity Rating Scale (C-SSRS) screener 1. Over the past month, have you wished you were or wished you could go to sleep and not wake up? No 2. Over the past month, have you had any actual thoughts of killing yourself? No 3. Over the past month, have you been thinking about how you might do this? Response not required due to responses to other questions. 4. Over the past month, have you had these thoughts and had some intention of acting on them? Response not required due to responses to other questions. 5. Over the past month, have you started to work out or worked out the details of how to kill yourself? Response not required due to responses to other questions. 6. If yes, at any time in the past month did you intend to carry out this plan? Response not required due to responses to other questions. 7. In your lifetime, have you ever done anything, started to do anything, or prepared to do anything to end your life (for example, collected pills, obtained a gun, gave away valuables, went to the roof but didn't jump)? No 8. If YES, was this within the past 3 months? Response not required due to responses to other questions. The reports that there are no current or past concerns regarding IPV domestic violence or safety. The reports currently feeling safe in their home. Current alcohol use: Some days Details of use: Vet reports once a year he will have one drink on New Years. Current substance use: Every day Details of use: CBD - 2 drops in a.m., afternoon, and at night to help control the sx seizures. Vet reports, It stops me from flapping around like a fish. Current tobacco use: Not at all [place] has access to opioids: No Other addictive behaviors (i.e. gambling, sex, darling, etc.): Not at all The [place] is not currently receiving [place] Alcohol/Substance Abuse treatment. The is not interested in a referral for [facility] at this time. has access to firearms: No The was offered information on the 's Crisis Line, including contact number: Dial 889 then Press 1 for Veterans and/or Text Service [id number] LEGAL/FINANCIAL HISTORY The does not report any current legal concerns. The [place] does not report any current personal financial concerns. CURRENT GOALS 's stated overall functional goals: Symptom Management Keep safe from inadvertently hurting myself when experiencing a seizure How does the [place] report that the caregiver supports the [place]'s overall goals? Vet reports, A lot. She helps me by being here with me. That right there helps because sometimes I can't tell when the seizures are coming. She helps me get dressed and bathe. I'm scared to bathe by myself. SUPPORT SERVICES The [place] is not currently receiving home care services. Support services currently used:* None Discussion about [place] [facility] and [facility] enrollment/participation: Not applicable = CAREGIVER INPUT SECTION = Caregiver's understanding of the Program of Comprehensive Assistance for caregiver/applicant(s) and why they decided to apply: CG reports, It's so that I can help in try to be safe at home. When I was working I was get calls about his falling. When I worked, in the mornings I had to get myself, my granddaughter, and essentially him set up for the day. It was a lot. Even with his helmet he would get hurt. Now, I make sure everything is clear. If I see any signs of him having a seizure I alert him so he can lay down. I just take care of him. Caregiver's description of 's self-care: Grooming: Independent Bathing: Independent Feeding: Independent. CG reports sometimes his hands shake so much that the food will fly all over the place. CG states on the rare occasion she does have to feed this . Toileting: With assistance. Dressing: With assistance. Bathing: With assistance. Caregiver's description of how the has responded to their self-care challenges and what is/is not working: CG reports, It all depends. He doesn't really like the help because he's so use to doing it himself. He may feel helpless. I'm not quite sure. There are days that he has no problems. He doesn't like it but he doesn't complain. Type of assistance that the caregiver provides to address [place]'s needs in completing activities of daily living: - Caregiver explained, if a seizure comes while is eating she has to dislodge the food from his mouth - Caregiver checks this 's sugar levels w/testing strips - Caregiver checks this 's vitals regularly - Caregiver reports she cuts this 's toe nails - Caregiver reports if looses his vision or gets the flashes she supports him with mobility and transfers. CG states she guides him where he needs to go. CG states, I help him lay down. or sit when he needs to. - Caregiver reports she assist vet with his CBD drops throughout the day - Caregiver assists with medication management. - Caregiver assists with care coordination and transportation to appointments. - Caregiver monitors food intake and weight gain/loss Type of assistance caregiver provides due to neurological, cognitive or mental health needs: CG reports, I support him as I need to. Right now he's putting signs on the mcallister on how to make coffee ect. It's getting worse but I manage all of his appts, manage the finances, the property/household matters, and most importantly I manage everything that has to do with our granddaughter. Caregiver's description of how belt buckle maker and meal planning are performed, who performs the duties, and any established routines: Caregiver does all of the meal planning and most of the belt buckle maker. Vet reports, I pass the dust mop. I vacuum. I do dishes. I help out. I feed the birds. I feed and take care of the dog. When the dog does her thing I clean her pad. Not much cleaning. I do what I can. Not like before. I can't help her like I use to. [place] needs assistance with the belt buckle maker and/or family activities that he/she completes. Details: None reported. CG states if can't do the chore he just wont because he doesn't feel well. CG states only does light chores according to how he feels. The [place] does not drive independently. The caregiver attends the 's medical and/or mental health appointments with him/her. Details: This caregiver attends 's medical appointments with him. Caregiver's knowledge and understanding of the treatment recommendations for the [place]: Caregiver has adequate knowledge and understanding of this 's treatment recommendations. The caregiver reports concerns for the [place]'s safety. Caregiver reports falling is her biggest concern as a result of his poor vision/flashes in vision and seizures Caregiver's description of strategies used to address problems [place] has in maintaining safety as well as the type of assistance the caregiver provides: Caregiver is present and supporting 11/05 Caregiver follows through with the doctor appointments and treatment recommendations. Type of preparations the caregiver needs to complete for the in their absence: CG reports, First I make sure he's all set. He's clean, he's changed, he's eaten, and he's had his medications. Then I tell him that I'll be right back. I'll leave him with his phone, snacks, drinks and typically I tell him to stay upstairs laying down with the dog until I get back. He's fallen so many times that he listens to me and stays in bed. I'm never gone more than 30 min. My granddaughter is often here and will call me if anything happens. Usually there is always somebody here, like my son will visit, if I have step out of the house. The Caregiver does not assist the [place] with any additional concerns and/or additional care needs. SUMMARY OF VISIT: 39 years. [facility] staff conducted this visit as part of the initial assessment of the application process for the Program of Comprehensive Assistance for Family Caregivers (PCAFC). See above for detailed list of type/level of assistance provided by caregiver. Caregiver provides assistance with ADLs and IADLs. [place] and Caregiver were pleasant, open, and forthcoming during the comprehensive assessments. CG reports she and this have been for 38 years. Electrical Foreman provided information and answered questions related to the PCAFC application process and eligibility requirements. Electrical Foreman to submit consult for [facility]. /gaetano/ JESSICA HOUSER LCSW CAREGIVER SUPPORT PARTS AND SERVICE MANAGER Signed: 06/21/2024 08:03 JESSICA CALLE [place] [facility]
--- OUTSIDE RECORDS SUMMARY | 2024-11-01 08:03 | XMS_ITS | Encounter Summary ---
Author Name [facility] Organization [facility] [place] Address [address] [place] [address] Care Team Providers Care Special Loan Officer Name Role Phone ELIZABET ROBINS Primary [...] [facility] CE [facility]GAN[facility] AC Apr 18, 2018 [id number] WILLIS,MAR JUDITH SPOUSE ANTHE[place] BCBS OF [place] (BLU[place]ARD) [facility] MAINCHRISTINA CE ORGANIZ [facility] Apr 18, 2018 [id number] WILLIS,MAR JUDITH SPOUSE BCBS [facility] CE ORGANIZ [facility] SHARE ACTIV E Apr 18, 2018 [id number] WILLIS,MAR JUDITH SPOUSE BCBS [facility] Apr 18, 2018 [id number] WILLIS,MAR JUDITH PATIENT BCBS OF [facility] CE ORGANIZ [facility] Apr 18, 2018 [id number] WILLIS,MAR JUDITH SPOUSE BCBS OF [place] PREFERRED PROVIDER ORGANIZAT ION (PPO) [facility] AC Apr 18, 2018 [id number] WILLIS,MAR JUDITH SPOUSE BCBS OF [facility] CE ORGANIZ [facility] ACT Apr 18, 2018 [id number] WILLIS,MAR JUDITH SPOUSE BCBS OF [facility] CE ORGANIZ [facility]DA [facility] AC Apr 18, 2018 [id number] [phone] WILLIS,MAR JUDITH SPOUSE [place] PRESCRIPT ION BCBS OF [place] Oct 19, 2022 [id number] WILLIS, SPOUSE [place] PRESCRIPT ION RX22M A Oct 19, 2022 RX22MA [id number] WILLIS,LAVELLE AEL PATIENT [place] PRESCRIPT ION RX22M B Oct 19, 2022 [id number] WILLIS,LAVELLE AEL PATIENT [place] PRESCRIPT ION [facility] AC Oct 19, 2022 [id number] WILLIS,LAVELLE AEL SPOUSE [place] PRESCRIPT ION RX22M B Oct 19, 2022 [id number] WILLIS,MAR JUDITH SPOUSE [place] PRESCRIPT ION RX Oct 19, 2022 [id number] WILLIS,MAR JUDITH SPOUSE [place] ([id number]) PRESCRIPT ION BCBS OF [place] Oct 19, 2022 [id number] WILLIS,MAR JUDITH SPOUSE [place] BCBS ([facility] CE ORGANIZ [facility]DA [facility] AC Apr 18, 2018 [id number] WILLIS,EDILBERTO SOTELOZA SPOUSE [employer] [place] PRESCRIPT ION [place]BS [place] 2018 L4TA [id number] WILLIS,EDILBERTO SOTELOZA SPOUSE [employer] ([id number]) PRESCRIPT ION Apr 18, 2018 L4TA [id number] WILLIS,EDILBERTO SOTELOZA SPOUSE [employer] ([id number]) PRESCRIPT ION L4TA* Apr 18, 2020 L4TA [id number] WILLIS,EDILBERTO PALAFOXA SPOUSE [employer] ([id number]) PRESCRIPT ION L4TA* Apr 18, 2018 L4TA [id number] WILLIS,EDILBERTO PALAFOXA SPOUSE [employer] ([id number]) PRESCRIPT ION L4TA Apr 18, 2018 L4TA [id number] WILLIS,EDILBERTO WONG SPOUSE [employer] ([id number]) PRESCRIPT ION Apr 18, 2018 L4TA [id number] 32 WILLISEDILBERTO SPOUSE [employer] ([id number]) PRESCRIPT ION Apr 18, 2018 L4TA [id number] WILLIS,EDILBERTO WONG SPOUSE [employer]-MINOR BROGATION PRESCRIPT ION BCBS OF [place] Apr 18, 2020 L4TA [id number] WILLIS,EDILBERTO WONG SPOUSE [facility] ([facility]) [facility] CE ORGANIZAT ION W/OUT OF NETWORK BENEFITS [facility] ACT Apr 18, 2018 [id number] WILLISEDILBERTO SPOUSE [place] BCBS [facility] (BLUECARD) [facility] CE ORGANIZAT ION [facility] AC Apr 18, 2018 [id number] WILLISEDILBERTO SPOUSE MEDICARE (WNR) MEDICARE (M) PART A Mar 19, 1990 PART A [id number] WILLIS,LAVELLE AEL PATIENT MEDICARE (WNR) MEDICARE (M) PART A Mar 19, 1990 PART A [id number] [phone] WILLIS,LAVELLE AEL PATIENT MEDICARE (WNR) MEDICARE (M) PART A Mar 19, 1990 PART A [id number] [phone] WILLIS,LAVELLE AEL PATIENT MEDICARE (WNR) MEDICARE (M) PART A Mar 19, 1990 PART A [id number] [phone] WILLIS,LAVELLE AEL PATIENT MEDICARE (WNR) MEDICARE (M) PART A Mar 19, 1990 PART A [id number] WILLIS,LAVELLE AEL PATIENT MEDICARE (WNR) MEDICARE (M) PART A Mar 19, 1990 PART A [id number] WILLIS,LAVELLE AEL PATIENT MEDICARE (WNR) MEDICARE (M) PART A Mar 19, 1990 PART A [id number] WILLIS,LAVELLE AEL PATIENT MEDICARE (WNR) MEDICARE (M) PART A Mar 19, 1990 PART A [id number] WILLIS,LAVELLE AEL PATIENT MEDICARE (WNR) MEDICARE (M) PART A Mar 19, 1990 PART A [id number] WILLIS,LAVELLE AEL PATIENT MEDICARE (WNR) MEDICARE (M) PART A Mar 19, 1990 PART A [id number] WILLIS,LAVELLE AEL PATIENT MEDICARE (WNR) MEDICARE (M) PART A Mar 19, 1990 PART A [id number] WILLIS,LAVELLE AEL PATIENT Selected Encounter This section includes the information on record at CT for the Encounter. Date/Time Encounter Type Encounter Description Reason Pro vider Source Jun 23, 2024 12:47 PM Outpatient Encounter ADMIN PAT ACTIVTIES (MASNONCT) IHE Encounter Template Text not used by CT Plan of Treatment: Future Appointments (+ 6 [...] 20 appointments. The data comes from all [facility]. Appointment Date/Time Appointment Type Appointme nt Facility Name Jun 28, 2024 11:30 AM AMBULATORY - MEDICINE [facility] [place] [facility] Jul 08, 2024 10:30 AM AMBULATORY - MEDICINE [facility] [place] [facility] Jul 13, 2024 09:30 AM AMBULATORY - MEDICINE [facility] [place] [facility] Aug 12, 2024 09:30 AM AMBULATORY - MEDICINE [facility] [place] [facility] Aug 22, 2024 09:00 AM AMBULATORY - MEDICINE [facility] [place] [facility] Sep 21, 2024 09:00 AM AMBULATORY - MEDICINE [facility] [place] [facility] Sep 21, 2024 10:00 AM AMBULATORY - MEDICINE [facility] [place] [facility] Nov 28, 2024 09:30 AM AMBULATORY - MEDICINE [facility] [place] [facility] Dec 02, 2024 08:30 AM AMBULATORY - MEDICINE CT [facility] [place] [facility] Active, Pending, and Scheduled Orders This section includes a listing of several types of active, pending, and scheduled orders, including clinic medications orders, diagnostic test orders, procedure orders and consult orders; where the start date of the order is 45 days before the date of the Encounter or 45 days after the date of theEncounter. The data comes from all [facility]. Test Date/Time Test Type Test Details Facility Name Jul 13, 2024 09:58 AM Consult Order PODIATRY/N HM OUTPT Cons Couture Alterations Dressmaker's Choice CT [facility] [place] [facility] Lab Results: +/- 30 days of the encounter This section includes the Chemistry and Hematology Lab Results on record with CT for the patient. Radiology Reports and Pathology Reports are provided separately, in subsequent sections. Lab Results This section contains the Chemistry/Hematology Results that were resulted 30 days before or 30 daysafter the date of the Encounter. Date/Time Source Result Type Result - Unit Interpretation Reference Range Comment Jun 01, 2024 12:[address] [facility] [place] [facility] MICROALBUMIN CREATININE RATIO PANEL Specimen Type: URINE No comment entered. Ordering Provider: LINDA PERSON Report Released Date/Time: Jun 01, 2024 11:53 AM Reporting Lab: [facility] [address] [facility] [address] Performing Lab: [address] [address] MICROALBUMIN/C REATININE RATIO 10.8 mg/g 0-29.9 MICROALBUMIN,Q UANTITATIVE 1.1 mg/dL RR UNAVAIL CREATININE URINE 101.63 mg/dL Jun 01, 2024 10:38 AM [facility] HEMOGLOBIN A1C PANEL Specimen Type: BLOOD [...] 30, 2024 10:29 AM Reporting Lab: [address] [address] Performing Lab: [address] [address] HEMOGLOBIN A1C 5.8 H 4.0-5.6 Jun 01, 2024 10:38 AM [facility] BASIC METABOLIC PANEL (non-fasting) Specimen Type: SERUM No comment entered. Ordering Provider: LINDA PERSON Report Released Date/Time: May 30, 2024 10:29 AM Reporting Lab: [address] [address] Performing Lab: [address] [address] UREA NITROGEN 13 mg/dL 7-25 GLUCOSE 115 mg/dL H 65-100 SODIUM 140 mmol/L 135-145 POTASSIUM 4.3 mmol/L 3.5-5.0 CHLORIDE 107 mmol/L 100-110 CO2 21 meq/L 20-30 CREATININE, Serum 0.84 mg/dL 0.50-1.40 eGFR(CKD-EPI 2020) >90 mL/min >60 Jun 01, 2024 10:[address] [facility] [facility] [place] [facility] LIPID PANEL, NON FASTING Specimen Type: SERUM No comment entered. Ordering Provider: LINDA PERSON Report Released Date/Time: Jun 01, 2024 10:12 AM Reporting [facility]: [facility] [address] [facility] [facility] [address] Performing Lab: [facility] [address] [facility] [address] CHOLESTEROL 126 mg/dL TRIGLYCERIDE 114 mg/dL 0-150 LDL calculated 60 mg/dL 0-129 CHOL/HDL 2.9 HDL CHOLESTEROL 43 mg/dL 40-60 Social History: Smoking Status (Most current) and Tobacco Use (All prior to encounter date) This section includes the most current, and the historical, smoking and tobacco- related health factors from the CT facility where the Encounter took place. Current Smoking Status This section includes the most current smoking, or tobacco-related health factor, from the [place] facility where the Encounter took place. Date/Time Current Smoking Status Comment [facility] Nov 27, 2023 11:00 AM VA[facility]BACCO [facility] [place] [facility] Tobacco Use History This section includes a history of the smoking, or tobacco-related health factors, that were collected on or before the date of the Encounter. The data comes from the CT facility where the Encounter took place. Date/Time Smoking Status/Tobac co Use Comment Facility Nov 27, 2023 11:00 AM VA-TOBACCO QUIT [address] [facility] [place] [facility] Dec 02, 2022 08:00 AM VA-TOBACCO FORMER USER [facility] [place] [facility] Dec 02, 2022 08:00 AM VA-TOBACCO QUIT 15 YRS OR MORE [facility] [place] [facility] Nov 05, 2021 10:30 AM VA-TOBACCO FORMER USER [facility] [place] [facility] Nov 05, 2021 10:30 AM VA-TOBACCO QUIT 1 TO < [address] [facility] [place] [facility] Sep 14, 2020 02:00 PM VA-TOBACCO FORMER USER [facility] [place] [facility] Sep 14, 2020 02:00 PM VA-TOBACCO QUIT 5 TO < 15 YRS [facility] Jan 22, 2018 03:40 PM QUIT TOBACCO USE > 7 YEARS AGO [facility] Jun 04, 2016 02:01 PM CURRENT SMOKER been smoking pass 20 yrs [facility] Jun 04, 2016 02:01 PM V1-PT DECLINES REF TO TOBACCO CESS PRGM [facility] Jun 04, 2016 02:01 PM V1-PT THINKING ABOUT QUIT TOBACCO USE [facility] Jul 18, 2014 03:31 PM V1-PT DECLINES REF TO TOBACCO CESS PRGM [facility] Jul 18, 2014 03:31 PM V1-PT DECLINES TOBACCO CESSATION MEDS [facility] Jul 18, 2014 03:31 PM V1-PT NOT INTERESTED IN QUIT TOBACCO USE [facility] Jan 09, 2014 10:43 AM CURRENT SMOKER pt smokes 1 pk of cigarettes per day. [facility] Jan 09, 2014 10:43 AM V1-PT THINKING ABOUT QUIT TOBACCO USE [facility] Aug 28, 2003 10:47 AM CURRENT SMOKER one pack q 6 days - he has cut down from 3 PPD. He is in the process of quitting [facility] Encounter Notes: All associated encounter notes This section contains the clinical notes associated to the Encounter. Date/Time Encounter Note(s) Provider Source Jun 23, 2024 02:07 PM ADDENDUM: LOCAL TITLE: Addendum STANDARD TITLE: ADDENDUM DATE OF NOTE: JUN 23, 2024@14:07:50 ENTRY DATE: JUN 23, 2024@14:07:51 AUTHOR: KRISTINE BARNES COSIGNER: URGENCY: STATUS: COMPLETED Chaya Pedro [address] [place] [address] 06/23/2024 Dear Chaya Pedro: Thank you for your interest in the Program of Comprehensive Assistance for Family Caregivers (PCAFC). We have made a decision on your VA Form 10-10CG PCAFC application that was received on 06/02/2024. This letter informs you of our decision. It lists the evidence used and reasons for our decision. We have also included information about what to do if you disagree with our decision, and who to contact if you have questions or need assistance. The following individuals were considered during this application review: Douglas: Chaya Pedro Primary Family Caregiver Applicant: Katie Pedro WHAT WE DECIDED The Centralized Eligibility and Appeals Team (CEAT) determined that you and each Family Caregiver identified on VA Form 10-10CG do not meet the current eligibility requirements for PCAFC and your application is denied. EXPLANATION OF DECISION PCAFC eligibility requirements can be found in 38 U.S.C. 1720G, Assistance and Support Services for Caregivers, and 38 C.F.R. Part 71, Caregivers Benefits and Certain Medical Benefits Offered to Family Members of Veterans. For the purposes of this letter, the term Douglas means an eligible of the Armed Forces or an eligible in flight crew member of the Armed Forces who has been found unfit for duty due to a medical condition by their Service's Physical Evaluation Board, and a date of medical discharge has been issued. The term Armed Forces means the active , naval, air, or space service as described in section 101 of title 38, [place] Code. The Program Requirements and Findings section of this letter includes PCAFC eligibility criteria that were evaluated to make this decision. Your denial for PCAFC was based on the determination that one or more applicants did not meet PCAFC eligibility requirements based on one or more of the below reasons: * The applicant is not in need of personal care services for a minimum of six continuous months based on: o an inability to perform an activity of daily living (ADL) o a need for supervision or protection based on symptoms or residuals of neurological or other impairment or injury o a need for regular or extensive instruction or supervision without which the ability of the to function in daily life would be seriously impaired EVIDENCE CONSIDERED TO MAKE THE DECISION We based this decision on the following records: * [place] Form 10-10CG, Application for the Program of Comprehensive Assistance for Family Caregivers, dated 06/02/2024. * Intake, dated 06/03/2024. * Douglas Assessment, dated 06/14/2024. * Douglas Functional Assessment, dated 06/22/2024. * Caregiver Assessment, dated 06/14/2024. * Primary Care Collaboration, dated 06/03/2024. * VA Medical Records, dated 06/23/2022-06/23/2024 Nursing note 03/14/2022, Nurse Practitioner Note 06/11/2024. * Non-VA Medical Records, including [facility] Non VA ER visit 04/19/2024, 04/22/2024, Urology 02/28/2024. * VA VBA Records, including Rating Decision Code Sheet 04/27/2012-22 12/14/1989. PROGRAM REQUIREMENTS AND FINDINGS Below are the program eligibility requirements for Veterans and Family Caregivers for participation in the Program of Comprehensive Assistance for Family Caregivers, with notation if the requirement was met or unmet. FINDINGS Evaluation of initial and ongoing PCAFC eligibility requires comprehensive assessment of the Douglas and Family Caregiver(s) or Applicant(s). Over time, the needs and circumstances of Veterans and caregivers change, therefore, an eligible or Family Caregiver's eligibility may also change and will be periodically reassessed as applicable. As a result, certain findings in PCAFC decisions are time specific. In making our determination, we made the following findings as identified in 38 C.F.R. 71.20, Eligible Veterans and Service Members, and 38 C.F.R, 71.25, Approval and Designation of Primary and Secondary Family Caregivers, however; note that any favorable findings are dynamic in nature and apply to circumstances that are subject to private branch exchange repairer time. Thus, in the future, these findings will require re-evaluation. * The applicant is a Douglas, or a member of the Armed Forces undergoing medical discharge from the Armed Forces. The term Douglas means a person who served in the active , naval, air, or space service, and who was discharged or released therefrom under conditions other than dishonorable. The term undergoing medical discharge means the in flight crew member has been found unfit for duty due to a medical condition by their Service's Physical Evaluation Board, and a date of medical discharge has been issued. o Requirement met due to the applicant is a , or a member of the Armed Forces undergoing medical discharge from the Armed Forces. * The applicant has a serious injury incurred or aggravated in the line of duty in the active , naval, or air service. The term serious injury means any service-connected disability that (1) is rated at 70 percent or more by VA; or (2) is combined with any other service-connected disability or disabilities, and a combined rating of 70 percent or more is assigned by VA. o Requirement met due to the Douglas incurred or aggravated a serious injury in the line of duty. The Douglas has a Single service-connected disability rating of 100% assigned by VA. * The applicant resides in a State. The term State means each of the several States, Territories, and possessions of the [place], the [facility], and the [facility]. o Requirement met due to the Douglas applicant residing in [place], [place]. * The applicant is in need of personal care services for a minimum of six continuous months. In need of personal care services means the eligible Douglas requires in-person personal care services from another person, and without such personal care services, alternative in-person caregiving arrangements (including respite care or assistance of an alternative caregiver) would be required to support the eligible Douglas's safety. Personal care services means care or assistance of another person necessary in order to support the eligible 's health and well-being, and perform personal functions required in everyday living ensuring the eligible remains safe from hazards or dangers incident to his or her daily environment. o Requirement unmet due to: ? The Douglas applicant is not in need of personal care services. After a thorough review of your records, there was insufficient evidence to support that you met eligibility criteria for PCAFC benefits under 38 U.S.C. ?1720G and 38 C.F.R. ?? 71.15-71.25. * The applicant is in need of personal care services for a minimum of six continuous months based on any one of the following: o An inability to perform an activity of daily living (ADL). Inability to perform an ADL means a requires personal care services each time the Douglas applicant completes one or more of the following ADLs: ? Requirement unmet 1. Feeding oneself due to loss of coordination of upper extremities, extreme weakness, inability to swallow, or the need for a non-oral means of nutrition: ? Requirement unmet due to Requirement unmet. When determining PCAFC eligibility for the ADL of feeding/eating, a Douglas must require hands-on assistance with feeding oneself due to loss of coordination of upper extremities, extreme weakness, inability to swallow, or need for a non-oral means of nutrition bringing food and/or liquid to the mouth each time the activity is performed. Per VFAI, Douglas is able to eat with set up/clean up assistance and meal preparation. This is consistent with record review ([facility] 06/22/2024, Douglas Assessment 06/14/2024). Additionally, set or clean-up assistance is not considered or defined as hands-on assistance and does not meet the PCAFC eligibility criteria for this ADL. Taken as a whole, the documents reviewed does not support that the Douglas had a functional impairment that requires hands-on assistance with this ADL each time the activities were performed for six continuous months. 2. Grooming oneself in order to keep oneself clean and presentable: ? Requirement unmet due to Requirement unmet. When determining PCAFC eligibility for the ADL of grooming, a must require hands-on assistance with completing both oral hygiene and washing upper body areas each time grooming is completed. Per VFAI, is able to complete oral care with setup/clean up, and washes upper body in shower. (AI 05/24/2024). This is consistent with record review ([facility] 06/22/2024, Douglas Assessment 06/14/2024). Additionally, set or clean-up assistance is not considered or defined as hands-on assistance and does not meet the PCAFC eligibility criteria for this ADL. Taken as a whole, the documents reviewed does not support that the Douglas had a functional impairment that requires hands-on assistance with this ADL each time the activities were performed for six continuous months. 3. Bathing: ? Requirement unmet due to Requirement unmet. When determining PCAFC eligibility for the ADL of bathing, a Douglas must require hands-on assistance with washing, rinsing, and drying each time this activity is completed.. Per VFAI, Douglas is able to complete bathing independently. Douglas makes use of grab bars and shower chair. This is consistent with record review ([facility] 06/22/2024, Assessment 06/14/2024). Additionally, set or clean-up assistance is not considered or defined as hands-on assistance and does not meet the PCAFC eligibility criteria for this ADL. Taken as a whole, the documents reviewed does not support that the Douglas had a functional impairment that requires hands-on assistance with this ADL each time the activities were performed for six continuous months. 4. Dressing or undressing oneself: ? Requirement unmet due to Requirement, unmet. When determining PCAFC eligibility for the ADL of dressing, a Douglas must require hands-on assistance each time the ADL of dressing is completed.??? Per VFAI, Douglas is able to dress upper body independently and has supervision/touching assistance with lower body dressing as he has occasional unsteady gait. Supervision or touching assistance are not considered or defined as hands-on assistance and does not meet the PCAFC eligibility criteria for this ADL. This is consistent with record review ([facility] 06/22/2024). Taken as a whole, the documents reviewed does not support that the Douglas had a functional impairment that requires hands-on assistance with this ADL each time the activities were performed for six continuous months. 5. Toileting or attending to toileting: ? Requirement unmet due to Requirement unmet. When determining PCAFC eligibility for the ADL of toileting, a must require hands-on assistance with adjusting clothes before and after voiding or having a bowel movement, and with maintaining perineal hygiene each time toileting is completed. Per AI, has help sometimes with cleaning after toileting. As assistance is intermittent, does not meet the PCAFC eligibility criteria for this ADL. This is consistent with record review ([facility] 06/22/2024, Douglas Assessment 06/14/2024. The documents reviewed do not support that the Douglas had a functional impairment that requires hands-on assistance with this ADL each time the activities were performed for six continuous months. 6. Adjusting any specific prosthetic or orthopedic appliance, that by reason of the particular disability, cannot be done without assistance (this does not include the adjustment of appliances that nondisabled persons would be unable to adjust without aid, such as supports, belts, lacing at the back, etc.): ? Requirement unmet due to Douglas does not use a prosthetic or orthopedic appliance. 7. Mobility (walking, going up stairs, transferring from bed to chair, etc.): ? Requirement met due to Requirement unmet. When determining PCAFC eligibility for the ADL of mobility, a must require hands-on assistance every time the activities involved in mobility are performed. Per VFAI, is independent with transfers and ambulating . Douglas has episodes of unsteadiness and occasional falls related to diagnosis of seizure disorder and vision problems. (VFAI06/22/2024). Per primary care, has been seizure free for last few years and no history of recent falls (Primary Care Collaboration ). Taken as a whole, the documents reviewed do not support that the Douglas had a functional impairment that requires hands- on assistance with this ADL each time the activities were performed for six continuous months. o The applicant has a need for supervision or protection based on symptoms or residual of neurological or other impairment or injury: ? Requirement unmet due to Requirement unmet. When considering PCAFC eligibility for a need for supervision or protection based on symptoms or residuals of neurological or other impairment or injury, there is consideration for documentation of medical, neurocognitive, and/or psychiatric conditions which resulted in functional impairments requiring supervision or protection. Douglas has not been diagnosed with a neurocognitive disorder. Per VFAI can take medication with set up assistance, identify his own needs, arrange for his own health and has the judgement and physical ability to make appropriate decisions in a potentially harmful situation. Douglas can be alone with out anyone checking in and does not need help going anywhere (AI 06/22/2024). is consistently assessed as alert and oriented to person, place and time (Non [facility] ER visit 04/19/2024). is noted to have no mental health needs at this time and is stable (Nurse Practitioner outpatient 06/01/2024). Taken as a whole, Douglas does not meet eligibility criteria for a need for supervision or protection based on symptoms or residuals of neurological or other impairment or injury. o The Douglas applicant has a need for regular or extensive instruction or supervision without which the ability of the to function in daily life would be seriously impaired: ? Requirement unmet due to Requirement Unmet. When considering PCAFC eligibility for a need for regular or extensive supervision or instruction, we take into consideration documentation of functional impairments impacting daily life, including the frequency and severity of need for in-person supervision or instruction. Douglas is able to understand his treatment plan, and does not have a fiduciary or guardian (Primary Care collaborative 06/03/2024, Assessment 06/03/2024). Douglas does not need stand by or continuous cueing, supervision or instruction and is able to a use phone to call 911 in an emergency as needed. While spouse has concerns about leaving Douglas alone due to falls, there were not documentation of recent or consistent falls or recent falls with injury. Last fall documented 03/12/2022 (Nursing note 03/14/2022, Primary Care Collaboration 06/03/2024, Nurse Practitioner Note 06/11/2024). Taken together, there is no documentation of functional impairments that met the threshold of PCAFC eligibility criteria that demonstrates that Douglas requires supervision or instruction. As above, Douglas drives, can be alone, and go out alone. As such, Douglas does not need regular or extensive instruction or supervision without which their ability to function in daily life would be seriously impaired, and thus is found ineligible for this criterion. FAMILY CAREGIVER FINDINGS * The Family Caregiver applicant resides in a State. The term State means each of the several States, Territories, and [facility] region medical centerions of the [place], the [facility], and the [facility]. o Requirement met due to the Family Caregiver applicant residing in a State . * The Family Caregiver applicant is the eligible 's spouse, son, daughter, parent, stepfamily member, extended family member, or someone who lives with the eligible Douglas full-time or will do so if designated as a Family Caregiver. o Requirement met due to the Family Caregiver is a spouse, son, daughter, parent, stepfamily member, extended family member, or someone who lives with the eligible Douglas full-time or will do so if designated as a Family Caregiver. * The Family Caregiver applicant is 18 years of age or older. o Requirement met due to the Family Caregiver applicant is 18 years of age or older. * There is no determination by VA of abuse or neglect of the eligible Douglas by the Family Caregiver applicant. o Requirement met due to there has been no determination by VA of abuse or neglect of the eligible by the Family Caregiver applicant. REQUIREMENTS NOT FULLY EVALUATED Eligibility for PCAFC requires a multistep evaluation process. Once a requirement is determined to be unmet, the evaluation concludes, and a decision is issued. The evaluation process concluded and the full spectrum of evaluations necessary to approve and designate a Family Caregiver were not completed. The following additional requirements were not fully evaluated and would require evaluation prior to approval and designation of a Family Caregiver: * It is in the best interest of the Douglas applicant to participate in the program. In the best interest is a clinical determination that participation in the program is likely to be beneficial to the . Such determination includes consideration, by a clinician, of whether participation in the program: o Significantly enhances the Douglas's ability to live safely in a home setting; o Supports the 's potential progress in rehabilitation, if such potential exists; o Increases the Douglas's potential independence, if such potential exists; and/or o Creates an environment that supports the health and well-being of the . * The personal care services that would be provided by the Family Caregiver applicant will not be simultaneously and regularly provided by or through another individual or entity. * The applicant receives care at home or will do so if [place] designates a Family Caregiver. * The applicant receives ongoing care from a primary care team or will do so if [place] designates a Family Caregiver. Primary care team means one or more medical geneticist who care for a patient based on the clinical needs of the patient. Primary care teams must include a [place] primary care provider who is a physician, advanced practice nurse, or a physician physical therapy assistant instructor. * Your Family Caregiver applicant has not completed caregiver training and demonstrated the ability to carry out the specific personal care services, core competencies, and additional care requirements. Your Family Caregiver applicant has not participated in a home-care assessment which assesses your well-being, the well-being of your caregiver, as well as their competence to provide personal care services at your home. HOW TO OBTAIN OR ACCESS INFORMATION USED IN MAKING THIS DECISION You may request a copy of the evidence we used to make our decision the following ways. If you utilize [employer], you may access your records through that system. You may also request a copy of your records by submitting a signed and completed VA Form 10-5345a, Individuals' Request for a Copy of Their Own Health Information, to the Social Worker Psychiatric at your local [place] medical facility. VA Form 5345a can be found at www.va.gov/vaforms/medical/ pdf/VHA% [email or web address]-re vision.[email or web address]. WHAT TO DO IF YOU DISAGREE WITH THE DECISION If you disagree with this decision, you have the right to request [facility] (A) review, or appeal to the Board of Veterans' Appeals (Board). Your options for doing so are described in the attached VA Form 10-305, Your Rights to Seek Further Review of PCAFC Decisions. OTHER VA SERVICES AND PROGRAMS TO SUPPORT CAREGIVERS PCAFC is just one way VA supports caregivers. Program of General Caregiver Support Services (PGCSS) Caregivers not eligible for PCAFC may be eligible to participate in PGCSS, which is a separate program under the VA Caregiver Support Program. PGCSS provides: * Caregiver skills training and education, both online and in-person * Coaching, supportive counseling and support groups * Peer Support Mentoring * Information on and referrals to VA and community resources There is no application needed for PGCSS. For more information about PGCSS, please contact your local VA Caregiver Support Program or visit the VA Caregiver Support Program's website at www.caregiver.va.gov. [place] [facility] (GE) [facility] offers a variety of programs to support Veterans and caregivers, including services in the home and in the community. Please visit the [facility] website at www.va.gov/GERIATRICS for information on all [facility] services and additional resources. VA Primary Care [place] [facility] serves as the foundation of [facility] ([facility]) health care and is the first point of contact with the health care system for Veterans enrolled in [facility]. If you are interested in learning about any VA resources, please speak with your Patient Aligned Care Team (PACT) Dryland Farmer or Primary Care provider for more information or assistance with a referral. If you have any questions about this letter or other matters, please contact the local [place]'s Caregiver Support Program (phone number enclosed) or visit the Caregiver Support Program's website at www.caregiver.va.gov. Sincerely, Caregiver Support Program Team ENCLOSURES: * Local [place] [facility] Contact Information * Program of Comprehensive Assistance for Family Caregivers Eligibility Criteria Fact Sheet * VA FORM 10-305 Your Rights to seek Further Review of Program of Comprehensive Assistance for Family Caregivers (PCAFC) Decisions * Changes to Review and Appeal Options for PCAFC Decisions FAQs * Other: CC: Katie Pedro CC: [employer] ([facility]) [address] [place] [address] gaetano/ Kristine Barnes [facility] MANAGER BUSINESS PROCESS Signed: 06/23/2024 14:08 Receipt Acknowledged By: 06/24/2024 08:15 /gaetano/ KENDALL WYANE PRODUCT MANAGEMENT SPECIALIST 06/24/2024 09:01 /es/ TRAVIS YANEZ, [facility] SOCIAL WORK EXECUTIVE --- Original Document --- 06/23/24 [facility] PCAFC CEAT REVIEW CONSULT: Centralized Eligibility and Appeals Team (CEAT) Review Note The Centralized Eligibility and Appeals Team is responsible for dispositioning initial and ongoing eligibility determinations, to include level of care, as well as appeal determinations within the Caregiver Support Program's (CSP) Program of Comprehensive Assistance for Family Caregivers (PCAFC). PCAFC is a clinical program involving initial assessment and periodic reassessment for continued eligibility based on the needs of the eligible Douglas and/or Family Caregivers. Decisions to discontinue an individual's participation may be impacted by changes in the Douglas and/or Family Caregiver(s)' circumstances, changes in needs or abilities, or VA may seek to discharge a participant due to failure to meet expectations or otherwise adhere to the intent of the program. Date of CEAT Review: Jun Full Name: CHAYA PEDRO SSN: [id number] Date of : Nov Address: [address] [place] [address] Phone number: PATIENT PHONE - Reasons for CEAT review: Initial Application Review Douglas and at least one Family Caregiver applicant have submitted a valid application for the PCAFC. 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 Yes 3) The individual is in need of personal care services for a minimum of six continuous months based on any one of the following: An inability to perform an activity of daily living or A need for supervision, protection, or instruction (ii) a need for supervision or protection based on symptoms or residuals of neurological or other impairment or injury; or (iii) a need for regular or extensive instruction or supervision without which the ability of the to function in daily life would be seriously impaired; *In need of personal care services means that the eligible Douglas requires in-person personal care services from another person, and without such personal care services, alternative in-person caregiving arrangements (including respite care or assistance of an alternative caregiver) would be required to support the eligible 's safety. *Personal Care Services means care or assistance of another person necessary in order to support the eligible Douglas's health and well-being, and perform personal functions required in everyday living ensuring the eligible Douglas remains safe from hazards or dangers incident to his or her daily environment. No 4) It is in the best interest of the individual to participate in the program. *In the best interest means a clinical determination that participation in PCAFC is likely to be beneficial to the or industrial garage servicer. Such determination will include consideration, by a clinician, of whether participation in the program significantly enhances the 's or industrial garage servicer's ability to live safely in a home setting, supports the Douglas's or industrial garage servicer's potential progress in rehabilitation, if such potential exists, increases the Douglas's or industrial garage servicer's potential independence, if such potential exists, and creates an environment that supports the health and well-being of the or industrial garage servicer. No Eligibility for PCAFC requires a multistep evaluation process. Once a criterion is determined to not be met, the evaluation concludes, and a decision is issued. Because the applicant was found to not be in need of personal care services, the evaluation process concluded, and this criterion was not evaluated. 5) Personal care services that would be provided by the Family Caregiver will not be simultaneously and regularly provided by or through another individual or entity. not evaluated. 6)The individual receives care at home or will do so if CT designates a Family Caregiver. not evaluated. 7) The individual receives ongoing care from a primary care team or will do so if CT designates a Family Caregiver. *Primary care team means one or more medical geneticist who care for a patient based on the clinical needs of the patient. Primary care teams must include a [place] primary care provider who is a physician, advanced practice nurse, or a physician physical therapy assistant instructor. not evaluated. CAREGIVER REQUIREMENTS Primary Family Caregiver applicant Primary Family Caregiver applicant name: Katie Pedro 1) Is the Primary Family Caregiver applicant 18 years of age or older? Yes 2) Is the Primary Family Caregiver applicant a family member or will live with the Douglas if designated as a Family Caregiver? Yes Relationship to Douglas: spouse Residence of applicant: lives with 3) Is there a determination by CT of abuse or neglect of the by the Primary Family Caregiver applicant? not evaluated. PROGRAM PARTICIPATION REQUIREMENTS 1)The application process is completed within 90 days. Yes 2) The or industrial garage servicer resides in a State, defined as each of the several States, Territories, and capital region medical centerions of the [place], the [facility], and [facility]. Yes DETERMINATION SECTION Denied - The and Family Caregiver applicant have been found not eligible for the Program of Comprehensive Assistance for Family Caregivers. - or industrial garage servicer does not require personal care services for a minimum of 6 continuous months based on an inability to perform an ADL and/or a need for supervision, protection or instruction. Centralized Eligibility and Appeals Team summary of determination: The author of this note is a member of the interdisciplinary VISN 1 CEAT and is documenting this team decision. The other CEAT members are included as additional signers. Mr. Chaya Pedro is a 68-year-old 100% service connected [facility] . The Douglas lives with his spouse Mago Pedro, age 67, and grand daughter, age 12. submitted a joint application on 06/02/2024 for the Program of Comprehensive Assistance for Family Caregivers (PCAFC) with his son as primary family caregiver applicant. Douglas does not have home health aide. He does not have a fiduciary or guardian. Feeding - Requirement unmet. When determining PCAFC eligibility for the ADL of feeding/eating, a must require hands-on assistance with feeding oneself due to loss of coordination of upper extremities, extreme weakness, inability to swallow, or need for a non-oral means of nutrition bringing food and/or liquid to the mouth each time the activity is performed. Per VFAI, Douglas is able to eat with set up/clean up assistance and meal preparation. This is consistent with record review (VFAI 06/22/2024, Assessment 06/14/2024). Additionally, set or clean-up assistance is not considered or defined as hands- on assistance and does not meet the PCAFC eligibility criteria for this ADL. Taken as a whole, the documents reviewed does not support that the Douglas had a functional impairment that requires hands-on assistance with this ADL each time the activities were performed for six continuous months. Grooming - Requirement unmet. When determining PCAFC eligibility for the ADL of grooming, a Douglas must require hands-on assistance with completing both oral hygiene and washing upper body areas each time grooming is completed. Per VFAI, Douglas is able to complete oral care with setup/clean up, and washes upper body in shower. (AI 05/24/2024). This is consistent with record review (AI 06/22/2024, Assessment 06/14/2024). Additionally, set or clean-up assistance is not considered or defined as hands-on assistance and does not meet the PCAFC eligibility criteria for this ADL. Taken as a whole, the documents reviewed does not support that the Douglas had a functional impairment that requires hands-on assistance with this ADL each time the activities were performed for six continuous months. Bathing - Requirement unmet. When determining PCAFC eligibility for the ADL of bathing, a Douglas must require hands-on assistance with washing, rinsing, and drying each time this activity is completed.. Per VFAI, Douglas is able to complete bathing independently. Douglas makes use of grab bars and shower chair. This is consistent with record review (VFAI 06/22/2024, Assessment 06/14/2024). Additionally, set or clean-up assistance is not considered or defined as hands-on assistance and does not meet the PCAFC eligibility criteria for this ADL. Taken as a whole, the documents reviewed does not support that the Douglas had a functional impairment that requires hands-on assistance with this ADL each time the activities were performed for six continuous months. Dressing/Undressing - Requirement, unmet. When determining PCAFC eligibility for the ADL of dressing, a Douglas must require hands-on assistance each time the ADL of dressing is completed.??? Per VFAI, is able to dress upper body independently and has supervision/touching assistance with lower body dressing as he has occasional unsteady gait. Supervision or touching assistance are not considered or defined as hands-on assistance and does not meet the PCAFC eligibility criteria for this ADL. This is consistent with record review (AI 06/22/2024). Taken as a whole, the documents reviewed does not support that the Douglas had a functional impairment that requires hands-on assistance with this ADL each time the activities were performed for six continuous months. Toileting - Requirement unmet. When determining PCAFC eligibility for the ADL of toileting, a Douglas must require hands-on assistance with adjusting clothes before and after voiding or having a bowel movement, and with maintaining perineal hygiene each time toileting is completed. Per VFAI, has help sometimes with cleaning after toileting. As assistance is intermittent, does not meet the PCAFC eligibility criteria for this ADL. This is consistent with record review (VFAI 06/22/2024, Douglas Assessment 06/14/2024. The documents reviewed do not support that the Douglas had a functional impairment that requires hands-on assistance with this ADL each time the activities were performed for six continuous months. Mobility - Requirement unmet. When determining PCAFC eligibility for the ADL of mobility, a must require hands-on assistance every time the activities involved in mobility are performed. Per VFAI, is independent with transfers and ambulating . has episodes of unsteadiness and occasional falls related to diagnosis of seizure disorder and vision problems. (VFAI06/22/2024). Per primary care, Douglas has been seizure free for last few years and no history of recent falls (Primary Care Collaboration ). Taken as a whole, the documents reviewed do not support that the Douglas had a functional impairment that requires hands-on assistance with this ADL each time the activities were performed for six continuous months. Prosthetic - Requirement unmet. When determining PCAFC eligibility for the ADL of prosthetic, a must require hands-on assistance every time when adjusting appliances that any person with or without a disability would need assistance with should not be scored (for example, supports, belts, lacing at back, etc. Per AI does not use a prosthetic. ([facility] 06/22/2024). Taken as a whole, the documents reviewed does not support that the Douglas had a functional impairment that requires at least partial/moderate hands-on assistance with ADLs each time a prosthetic appliance was adjusted activities were performed for six continuous months. To be considered to have an inability to perform an activity of daily living, requires that a Douglas or Servicemember need personal care services each time he or she completes any of the ADLs listed in the definition (e.g., every time the individual is dressing or undressing, bathing, grooming, toileting, etc.). This would exclude Veterans and Servicemembers who need help completing an ADL only some of the time the ADL is completed (e.g., the individual needs help with dressing or undressing only when wearing certain types of clothing). The care required under the definition of inability to perform an ADL is hands-on, physical care. For [facility], if the Douglas's needs with respect to ADLs are met with an assistive device, the individual would not need personal care services based on an inability to perform an ADL. Supervision or Protection: Requirement unmet. When considering [facility] eligibility for a need for supervision or protection based on symptoms or residuals of neurological or other impairment or injury, there is consideration for documentation of medical, neurocognitive, and/or psychiatric conditions which resulted in functional impairments requiring supervision or protection. Douglas has not been diagnosed with a neurocognitive disorder. Per AI Douglas can take medication with set up assistance, identify his own needs, arrange for his own health and has the judgement and physical ability to make appropriate decisions in a potentially harmful situation. can be alone with out anyone checking in and does not need help going anywhere (AI 06/22/2024). Douglas is consistently assessed as alert and oriented to person, place and time (Non [facility] ER visit 04/19/2024). Douglas is noted to have no mental health needs at this time and is stable (Nurse Practitioner outpatient 06/01/2024). Taken as a whole, does not meet eligibility criteria for a need for supervision or protection based on symptoms or residuals of neurological or other impairment or injury. Regular or Extensive supervision or instruction: Requirement Unmet. When considering [facility] eligibility for a need for regular or extensive supervision or instruction, we take into consideration documentation of functional impairments impacting daily life, including the frequency and severity of need for in-person supervision or instruction. Douglas is able to understand his treatment plan, and does not have a fiduciary or guardian (Primary Care collaborative 06/03/2024, Assessment 06/03/2024). Douglas does not need stand by or continuous cueing, supervision or instruction and is able to a use phone to call 911 in an emergency as needed. While spouse has concerns about leaving Douglas alone due to falls, there were not documentation of recent or consistent falls or recent falls with injury. Last fall documented 03/12/2022 (Nursing note 03/14/2022, Primary Care Collaboration 06/03/2024, Nurse Practitioner Note 06/11/2024). Taken together, there is no documentation of functional impairments that met the threshold of [facility] eligibility criteria that demonstrates that Douglas requires supervision or instruction. As above, drives, can be alone, and go out alone. As such, Douglas does not need regular or extensive instruction or supervision without which their ability to function in daily life would be seriously impaired, and thus is found ineligible for this criterion. Determination: After a review of the available medical records, per CEAT determination, does not meet [facility] eligibility requirements in effect on July 19, 2020, for personal care services for a minimum of six continuous months based on any one of the following: (i) an inability to perform one or more activities of daily living; or (ii) a need for supervision or protection based on symptoms or residuals of neurological or other impairment or injury; or (iii) a need for regular or extensive instruction or supervision without which the ability of the to function in daily life would be seriously impaired. /gaetano/ Kristine Barnes [facility] MANAGER BUSINESS PROCESS Signed: 06/23/2024 14:06 Receipt Acknowledged By: 06/24/2024 07:25 /es/ JESSICA HOUSER TRUSS MAKER CAREGIVER SUPPORT MANAGER BUSINESS PROCESS 06/24/2024 09:01 /es/ TRAVIS YANEZ, [facility] SOCIAL WORK EXECUTIVE * AWAITING SIGNATURE * NIKKI CHEUNG I * AWAITING SIGNATURE * ESTIVEN LEBLANC 06/23/2024 15:58 /es/ Netta Higuera BSN, RN Netta Higuera MSN, RN KRISTINE BARNES CT [facility] Jun 23, 2024 12:47 PM CAREGIVER CERTIFICATE: LOCAL TITLE: CSP PCAFC CEAT REVIEW CONSULT STANDARD TITLE: CAREGIVER CERTIFICATE DATE OF NOTE: JUN 23, 2024@12:47 ENTRY DATE: JUN 23, 2024@12:47:53 AUTHOR: KRISTINE ABRNES EXP COSIGNER: URGENCY: STATUS: COMPLETED [facility] PCAFC CEAT REVIEW CONSULT Has ADDENDA Centralized Eligibility and Appeals Team (CEAT) Review Note The Centralized Eligibility and Appeals Team is responsible for dispositioning initial and ongoing eligibility determinations, to include level of care, as well as appeal determinations within the Caregiver Support Program's (CSP) Program of Comprehensive Assistance for Family Caregivers (PCAFC). PCAFC is a clinical program involving initial assessment and periodic reassessment for continued eligibility based on the needs of the eligible and/or Family Caregivers. Decisions to discontinue an individual's participation may be impacted by changes in the Douglas and/or Family Caregiver(s)' circumstances, changes in needs or abilities, or VA may seek to discharge a participant due to failure to meet expectations or otherwise adhere to the intent of the program. Date of CEAT Review: Jun Full Name: CHAYA PEDRO SSN: [id number] Date of : Nov Address: [address] [place] [id number] Phone number: PATIENT PHONE - Reasons for CEAT review: Initial Application Review Douglas and at least one Family Caregiver applicant have submitted a valid application for the PCAFC. Valid Application Date: May REQUIREMENTS 1) The individual is either a or a member of the Armed Forces undergoing a medical discharge from the Armed Forces. 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 Yes 3) The individual is in need of personal care services for a minimum of six continuous months based on any one of the following: An inability to perform an activity of daily living or A need for supervision, protection, or instruction (ii) a need for supervision or protection based on symptoms or residuals of neurological or other impairment or injury; or (iii) a need for regular or extensive instruction or supervision without which the ability of the to function in daily life would be seriously impaired; *In need of personal care services means that the eligible requires in-person personal care services from another person, and without such personal care services, alternative in-person caregiving arrangements (including respite care or assistance of an alternative caregiver) would be required to support the eligible 's safety. *Personal Care Services means care or assistance of another person necessary in order to support the eligible Douglas's health and well-being, and perform personal functions required in everyday living ensuring the eligible remains safe from hazards or dangers incident to his or her daily environment. No 4) It is in the best interest of the individual to participate in the program. *In the best interest means a clinical determination that participation in PCAFC is likely to be beneficial to the Douglas or industrial garage servicer. Such determination will include consideration, by a clinician, of whether participation in the program significantly enhances the 's or industrial garage servicer's ability to live safely in a home setting, supports the 's or industrial garage servicer's potential progress in rehabilitation, if such potential exists, increases the 's or industrial garage servicer's potential independence, if such potential exists, and creates an environment that supports the health and well-being of the Douglas or industrial garage servicer. No Eligibility for PCAFC requires a multistep evaluation process. Once a criterion is determined to not be met, the evaluation concludes, and a decision is issued. Because the Douglas applicant was found to not be in need of personal care services, the evaluation process concluded, and this criterion was not evaluated. 5) Personal care services that would be provided by the Family Caregiver will not be simultaneously and regularly provided by or through another individual or entity. not evaluated. 6)The individual receives care at home or will do so if CT designates a Family Caregiver. not evaluated. 7) The individual receives ongoing care from a primary care team or will do so if CT designates a Family Caregiver. *Primary care team means one or more medical geneticist who care for a patient based on the clinical needs of the patient. Primary care teams must include a CT primary care provider who is a physician, advanced practice nurse, or a physician physical therapy assistant instructor. not evaluated. CAREGIVER REQUIREMENTS Primary Family Caregiver applicant Primary Family Caregiver applicant name: Katie Pedro 1) Is the Primary Family Caregiver applicant 18 years of age or older? Yes 2) Is the Primary Family Caregiver applicant a family member or will live with the if designated as a Family Caregiver? Yes Relationship to Douglas: spouse Residence of applicant: lives with Douglas 3) Is there a determination by CT of abuse or neglect of the Douglas by the Primary Family Caregiver applicant? not evaluated. PROGRAM PARTICIPATION REQUIREMENTS 1)The application process is completed within 90 days. Yes 2) The Douglas or industrial garage servicer resides in a State, defined as each of the several States, Territories, and capital region medical centerions of the [facility], the district [facility], and the [facility]. Yes DETERMINATION SECTION Denied - The and Family Caregiver applicant have been found not eligible for the Program of Comprehensive Assistance for Family Caregivers. - Douglas or industrial garage servicer does not require personal care services for a minimum of 6 continuous months based on an inability to perform an ADL and/or a need for supervision, protection or instruction. Centralized Eligibility and Appeals Team summary of determination: The author of this note is a member of the interdisciplinary VISN 1 CEAT and is documenting this team decision. The other CEAT members are included as additional signers. Mr. Chaya Pedro is a 68-year-old 100% service connected [facility] . The Douglas lives with his spouse Mago Pedro, age 67, and grand daughter, age 12. Douglas submitted a joint application on 06/02/2024 for the Program of Comprehensive Assistance for Family Caregivers (PCAFC) with his son as primary family caregiver applicant. Douglas does not have home health aide. He does not have a fiduciary or guardian. Feeding - Requirement unmet. When determining PCAFC eligibility for the ADL of feeding/eating, a Douglas must require hands-on assistance with feeding oneself due to loss of coordination of upper extremities, extreme weakness, inability to swallow, or need for a non-oral means of nutrition bringing food and/or liquid to the mouth each time the activity is performed. Per AI, is able to eat with set up/clean up assistance and meal preparation. This is consistent with record review (AI 06/22/2024, Assessment 06/14/2024). Additionally, set or clean-up assistance is not considered or defined as hands- on assistance and does not meet the PCAFC eligibility criteria for this ADL. Taken as a whole, the documents reviewed does not support that the had a functional impairment that requires hands-on assistance with this ADL each time the activities were performed for six continuous months. Grooming - Requirement unmet. When determining PCAFC eligibility for the ADL of grooming, a must require hands-on assistance with completing both oral hygiene and washing upper body areas each time grooming is completed. Per AI, is able to complete oral care with setup/clean up, and washes upper body in shower. (AI 05/24/2024). This is consistent with record review (AI 06/22/2024, Douglas Assessment 06/14/2024). Additionally, set or clean-up assistance is not considered or defined as hands-on assistance and does not meet the PCAFC eligibility criteria for this ADL. Taken as a whole, the documents reviewed does not support that the had a functional impairment that requires hands-on assistance with this ADL each time the activities were performed for six continuous months. Bathing - Requirement unmet. When determining PCAFC eligibility for the ADL of bathing, a must require hands-on assistance with washing, rinsing, and drying each time this activity is completed.. Per VFAI, is able to complete bathing independently. makes use of grab bars and shower chair. This is consistent with record review (AI 06/22/2024, Douglas Assessment 06/14/2024). Additionally, set or clean-up assistance is not considered or defined as hands-on assistance and does not meet the PCAFC eligibility criteria for this ADL. Taken as a whole, the documents reviewed does not support that the had a functional impairment that requires hands-on assistance with this ADL each time the activities were performed for six continuous months. Dressing/Undressing - Requirement, unmet. When determining PCAFC eligibility for the ADL of dressing, a Douglas must require hands-on assistance each time the ADL of dressing is completed.??? Per VFAI, Douglas is able to dress upper body independently and has supervision/touching assistance with lower body dressing as he has occasional unsteady gait. Supervision or touching assistance are not considered or defined as hands-on assistance and does not meet the PCAFC eligibility criteria for this ADL. This is consistent with record review (AI 06/22/2024). Taken as a whole, the documents reviewed does not support that the had a functional impairment that requires hands-on assistance with this ADL each time the activities were performed for six continuous months. Toileting - Requirement unmet. When determining PCAFC eligibility for the ADL of toileting, a Douglas must require hands-on assistance with adjusting clothes before and after voiding or having a bowel movement, and with maintaining perineal hygiene each time toileting is completed. Per VFAI, Douglas has help sometimes with cleaning after toileting. As assistance is intermittent, does not meet the PCAFC eligibility criteria for this ADL. This is consistent with record review (VFAI 06/22/2024, Assessment 06/14/2024. The documents reviewed do not support that the Douglas had a functional impairment that requires hands-on assistance with this ADL each time the activities were performed for six continuous months. Mobility - Requirement unmet. When determining PCAFC eligibility for the ADL of mobility, a must require hands-on assistance every time the activities involved in mobility are performed. Per VFAI, is independent with transfers and ambulating . has episodes of unsteadiness and occasional falls related to diagnosis of seizure disorder and vision problems. (VFAI06/22/2024). Per primary care, has been seizure free for last few years and no history of recent falls (Primary Care Collaboration ). Taken as a whole, the documents reviewed do not support that the had a functional impairment that requires hands-on assistance with this ADL each time the activities were performed for six continuous months. Prosthetic - Requirement unmet. When determining PCAFC eligibility for the ADL of prosthetic, a Douglas must require hands-on assistance every time when adjusting appliances that any person with or without a disability would need assistance with should not be scored (for example, supports, belts, lacing at back, etc. Per AI does not use a prosthetic. ([facility] 06/22/2024). Taken as a whole, the documents reviewed does not support that the had a functional impairment that requires at least partial/moderate hands-on assistance with ADLs each time a prosthetic appliance was adjusted activities were performed for six continuous months. To be considered to have an inability to perform an activity of daily living, requires that a Douglas or Servicemember need personal care services each time he or she completes any of the ADLs listed in the definition (e.g., every time the individual is dressing or undressing, bathing, grooming, toileting, etc.). This would exclude Veterans and Servicemembers who need help completing an ADL only some of the time the ADL is completed (e.g., the individual needs help with dressing or undressing only when wearing certain types of clothing). The care required under the definition of inability to perform an ADL is hands-on, physical care. For [facility], if the 's needs with respect to ADLs are met with an assistive device, the individual would not need personal care services based on an inability to perform an ADL. Supervision or Protection: Requirement unmet. When considering PCA eligibility for a need for supervision or protection based on symptoms or residuals of neurological or other impairment or injury, there is consideration for documentation of medical, neurocognitive, and/or psychiatric conditions which resulted in functional impairments requiring supervision or protection. Douglas has not been diagnosed with a neurocognitive disorder. Per AI Douglas can take medication with set up assistance, identify his own needs, arrange for his own health and has the judgement and physical ability to make appropriate decisions in a potentially harmful situation. can be alone with out anyone checking in and does not need help going anywhere (AI 06/22/2024). Douglas is consistently assessed as alert and oriented to person, place and time (Non [facility] ER visit 04/19/2024). is noted to have no mental health needs at this time and is stable (Nurse Practitioner outpatient 06/01/2024). Taken as a whole, does not meet eligibility criteria for a need for supervision or protection based on symptoms or residuals of neurological or other impairment or injury. Regular or Extensive supervision or instruction: Requirement Unmet. When considering [facility] eligibility for a need for regular or extensive supervision or instruction, we take into consideration documentation of functional impairments impacting daily life, including the frequency and severity of need for in-person supervision or instruction. is able to understand his treatment plan, and does not have a fiduciary or guardian (Primary Care collaborative 06/03/2024, Assessment 06/03/2024). does not need stand by or continuous cueing, supervision or instruction and is able to a use phone to call 911 in an emergency as needed. While spouse has concerns about leaving Douglas alone due to falls, there were not documentation of recent or consistent falls or recent falls with injury. Last fall documented 03/12/2022 (Nursing note 03/14/2022, Primary Care Collaboration 06/03/2024, Nurse Practitioner Note 06/11/2024). Taken together, there is no documentation of functional impairments that met the threshold of PCAFC eligibility criteria that demonstrates that requires supervision or instruction. As above, Douglas drives, can be alone, and go out alone. As such, Douglas does not need regular or extensive instruction or supervision without which their ability to function in daily life would be seriously impaired, and thus is found ineligible for this criterion. Determination: After a review of the available medical records, per CEAT determination, Ye[place] does not meet [facility] eligibility requirements in effect on July 19, 2020, for personal care services for a minimum of six continuous months based on any one of the following: (i) an inability to perform one or more activities of daily living; or (ii) a need for supervision or protection based on symptoms or residuals of neurological or other impairment or injury; or (iii) a need for regular or extensive instruction or supervision without which the ability of the to function in daily life would be seriously impaired. /es/ Kristine Barnes [facility] MANAGER BUSINESS PROCESS Signed: 06/23/2024 14:06 Receipt Acknowledged By: 06/24/2024 07:25 /es/ JESSICA HOUSER TRUSS MAKER CAREGIVER SUPPORT MANAGER BUSINESS PROCESS 06/24/2024 09:01 /es/ TRAVIS YANEZ, [facility] SOCIAL WORK EXECUTIVE 07/21/2024 11:42 /es/ NIKKI CHEUNG Clinical Psychologist 06/24/2024 13:21 /es/ ESTIVEN LEBLANC APRN NURSE PRACTITIONER 06/23/2024 15:58 /es/ Netta Higuera BSN, RN Netta Higuera MSN, RN 06/23/2024 ADDENDUM STATUS: COMPLETED Chaya Pedro [address] [place] [address] 06/23/2024 Dear Chaya Pedro: Thank you for your interest in the Program of Comprehensive Assistance for Family Caregivers (PCAFC). We have made a decision on your [facility] Form 10-10CG PCAFC application that was received on 06/02/2024. This letter informs you of our decision. It lists the evidence used and reasons for our decision. We have also included information about what to do if you disagree with our decision, and who to contact if you have questions or need assistance. The following individuals were considered during this application review: : Chaya Pedro Primary Family Caregiver Applicant: Katie Rodriguezyes WHAT WE DECIDED The Centralized Eligibility and Appeals Team (CEAT) determined that you and each Family Caregiver identified on [facility] Form 10-10CG do not meet the current eligibility requirements for PCAFC and your application is denied. EXPLANATION OF DECISION PCAFC eligibility requirements can be found in 38 U.S.C. 1720G, Assistance and Support Services for Caregivers, and 38 C.F.R. Part 71, Caregivers Benefits and Certain Medical Benefits Offered to Family Members of Veterans. For the purposes of this letter, the term Douglas means an eligible Douglas of the Armed Forces or an eligible in flight crew member of the Armed Forces who has been found unfit for duty due to a medical condition by their Service's Physical Evaluation Board, and a date of medical discharge has been issued. The term Armed Forces means the active , naval, air, or space service as described in section 101 of title 38, [place] Code. The Program Requirements and Findings section of this letter includes PCAFC eligibility criteria that were evaluated to make this decision. Your denial for PCAFC was based on the determination that one or more applicants did not meet PCAFC eligibility requirements based on one or more of the below reasons: * The Douglas applicant is not in need of personal care services for a minimum of six continuous months based on: o an inability to perform an activity of daily living (ADL) o a need for supervision or protection based on symptoms or residuals of neurological or other impairment or injury o a need for regular or extensive instruction or supervision without which the ability of the to function in daily life would be seriously impaired EVIDENCE CONSIDERED TO MAKE THE DECISION We based this decision on the following records: * [facility] Form 10-10CG, Application for the Program of Comprehensive Assistance for Family Caregivers, dated 06/02/2024. * Douglas Intake, dated 06/03/2024. * Assessment, dated 06/14/2024. * Functional Assessment, dated 06/22/2024. * Caregiver Assessment, dated 06/14/2024. * Primary Care Collaboration, dated 06/03/2024. * [facility] Medical Records, dated 06/23/2022-06/23/2024 Nursing note 03/14/2022, Nurse Practitioner Note 06/11/2024. * Non-VA Medical Records, including [facility] Non VA ER visit 04/19/2024, 04/22/2024, Urology 02/28/2024. * [facility] VBA Records, including Rating Decision Code Sheet 04/27/2012-22 12/14/1989. PROGRAM REQUIREMENTS AND FINDINGS Below are the program eligibility requirements for Veterans and Family Caregivers for participation in the Program of Comprehensive Assistance for Family Caregivers, with notation if the requirement was met or unmet. FINDINGS Evaluation of initial and ongoing PCAFC eligibility requires comprehensive assessment of the and Family Caregiver(s) or Applicant(s). Over time, the needs and circumstances of Veterans and caregivers change, therefore, an eligible Douglas or Family Caregiver's eligibility may also change and will be periodically reassessed as applicable. As a result, certain findings in PCAFC decisions are time specific. In making our determination, we made the following findings as identified in 38 C.F.R. 71.20, Eligible Veterans and Service Members, and 38 C.F.R, 71.25, Approval and Designation of Primary and Secondary Family Caregivers, however; note that any favorable findings are dynamic in nature and apply to circumstances that are subject to private branch exchange repairer time. Thus, in the future, these findings will require re-evaluation. * The applicant is a Douglas, or a member of the Armed Forces undergoing medical discharge from the Armed Forces. The term means a person who served in the active , naval, air, or space service, and who was discharged or released therefrom under conditions other than dishonorable. The term undergoing medical discharge means the in flight crew member has been found unfit for duty due to a medical condition by their Service's Physical Evaluation Board, and a date of medical discharge has been issued. o Requirement met due to the applicant is a , or a member of the Armed Forces undergoing medical discharge from the Armed Forces. * The applicant has a serious injury incurred or aggravated in the line of duty in the active , naval, or air service. The term serious injury means any service-connected disability that (1) is rated at 70 percent or more by VA; or (2) is combined with any other service-connected disability or disabilities, and a combined rating of 70 percent or more is assigned by VA. o Requirement met due to the incurred or aggravated a serious injury in the line of duty. The has a Single service-connected disability rating of 100% assigned by VA. * The applicant resides in a State. The term State means each of the several States, Territories, and [facility] of the [place], the [place], and the [facility]. o Requirement met due to the applicant residing in [place], [place]. * The applicant is in need of personal care services for a minimum of six continuous months. In need of personal care services means the eligible requires in-person personal care services from another person, and without such personal care services, alternative in-person caregiving arrangements (including respite care or assistance of an alternative caregiver) would be required to support the eligible 's safety. Personal care services means care or assistance of another person necessary in order to support the eligible 's health and well-being, and perform personal functions required in everyday living ensuring the eligible remains safe from hazards or dangers incident to his or her daily environment. o Requirement unmet due to: ? The Douglas applicant is not in need of personal care services. After a thorough review of your records, there was insufficient evidence to support that you met eligibility criteria for [employer]FC benefits under 38 U.S.C. ?1720G and 38 C.F.R. ?? 71.15-71.25. * The Douglas applicant is in need of personal care services for a minimum of six continuous months based on any one of the following: o An inability to perform an activity of daily living (ADL). Inability to perform an ADL means a Douglas requires personal care services each time the Douglas applicant completes one or more of the following ADLs: ? Requirement unmet 1. Feeding oneself due to loss of coordination of upper extremities, extreme weakness, inability to swallow, or the need for a non-oral means of nutrition: ? Requirement unmet due to Requirement unmet. When determining [facility] eligibility for the ADL of feeding/eating, a must require hands-on assistance with feeding oneself due to loss of coordination of upper extremities, extreme weakness, inability to swallow, or need for a non-oral means of nutrition bringing food and/or liquid to the mouth each time the activity is performed. Per [facility], Douglas is able to eat with set up/clean up assistance and meal preparation. This is consistent with record review ([facility] 06/22/2024, Assessment 06/14/2024). Additionally, set or clean-up assistance is not considered or defined as hands-on assistance and does not meet the PCAFC eligibility criteria for this ADL. Taken as a whole, the documents reviewed does not support that the Douglas had a functional impairment that requires hands-on assistance with this ADL each time the activities were performed for six continuous months. 2. Grooming oneself in order to keep oneself clean and presentable: ? Requirement unmet due to Requirement unmet. When determining [facility] eligibility for the ADL of grooming, a Douglas must require hands-on assistance with completing both oral hygiene and washing upper body areas each time grooming is completed. Per [facility], is able to complete oral care with setup/clean up, and washes upper body in shower. ([facility] 05/24/2024). This is consistent with record review ([facility] 06/22/2024, Douglas Assessment 06/14/2024). Additionally, set or clean-up assistance is not considered or defined as hands-on assistance and does not meet the [facility]FC eligibility criteria for this ADL. Taken as a whole, the documents reviewed does not support that the Douglas had a functional impairment that requires hands-on assistance with this ADL each time the activities were performed for six continuous months. 3. Bathing: ? Requirement unmet due to Requirement unmet. When determining [facility] eligibility for the ADL of bathing, a must require hands-on assistance with washing, rinsing, and drying each time this activity is completed.. Per [facility], Douglas is able to complete bathing independently. Douglas makes use of grab bars and shower chair. This is consistent with record review ([facility] 06/22/2024, Assessment 06/14/2024). Additionally, set or clean-up assistance is not considered or defined as hands-on assistance and does not meet the [facility]FC eligibility criteria for this ADL. Taken as a whole, the documents reviewed does not support that the Douglas had a functional impairment that requires hands-on assistance with this ADL each time the activities were performed for six continuous months. 4. Dressing or undressing oneself: ? Requirement unmet due to Requirement, unmet. When determining [facility] eligibility for the ADL of dressing, a Douglas must require hands-on assistance each time the ADL of dressing is completed.??? Per [facility], Douglas is able to dress upper body independently and has supervision/touching assistance with lower body dressing as he has occasional unsteady gait. Supervision or touching assistance are not considered or defined as hands-on assistance and does not meet the [facility]FC eligibility criteria for this ADL. This is consistent with record review ([facility] 06/22/2024). Taken as a whole, the documents reviewed does not support that the Douglas had a functional impairment that requires hands-on assistance with this ADL each time the activities were performed for six continuous months. 5. Toileting or attending to toileting: ? Requirement unmet due to Requirement unmet. When determining [employer] eligibility for the ADL of toileting, a Douglas must require hands-on assistance with adjusting clothes before and after voiding or having a bowel movement, and with maintaining perineal hygiene each time toileting is completed. Per [facility], has help sometimes with cleaning after toileting. As assistance is intermittent, does not meet the [facility] eligibility criteria for this ADL. This is consistent with record review ([facility] 06/22/2024, Douglas Assessment 06/14/2024. The documents reviewed do not support that the had a functional impairment that requires hands-on assistance with this ADL each time the activities were performed for six continuous months. 6. Adjusting any specific prosthetic or orthopedic appliance, that by reason of the particular disability, cannot be done without assistance (this does not include the adjustment of appliances that nondisabled persons would be unable to adjust without aid, such as supports, belts, lacing at the back, etc.): ? Requirement unmet due to Douglas does not use a prosthetic or orthopedic appliance. 7. Mobility (walking, going up stairs, transferring from bed to chair, etc.): ? Requirement met due to Requirement unmet. When determining [facility] eligibility for the ADL of mobility, a must require hands-on assistance every time the activities involved in mobility are performed. Per [facility], is independent with transfers and ambulating . has episodes of unsteadiness and occasional falls related to diagnosis of seizure disorder and vision problems. ([facility]06/22/2024). Per primary care, has been seizure free for last few years and no history of recent falls (Primary Care Collaboration ). Taken as a whole, the documents reviewed do not support that the Douglas had a functional impairment that requires hands- on assistance with this ADL each time the activities were performed for six continuous months. o The applicant has a need for supervision or protection based on symptoms or residual of neurological or other impairment or injury: ? Requirement unmet due to Requirement unmet. When considering [facility] eligibility for a need for supervision or protection based on symptoms or residuals of neurological or other impairment or injury, there is consideration for documentation of medical, neurocognitive, and/or psychiatric conditions which resulted in functional impairments requiring supervision or protection. Douglas has not been diagnosed with a neurocognitive disorder. Per [facility] can take medication with set up assistance, identify his own needs, arrange for his own health and has the judgement and physical ability to make appropriate decisions in a potentially harmful situation. Douglas can be alone with out anyone checking in and does not need help going anywhere ([facility] 06/22/2024). is consistently assessed as alert and oriented to person, place and time (Non [facility] ER visit 04/19/2024). is noted to have no mental health needs at this time and is stable (Nurse Practitioner outpatient 06/01/2024). Taken as a whole, does not meet eligibility criteria for a need for supervision or protection based on symptoms or residuals of neurological or other impairment or injury. o The [place] applicant has a need for regular or extensive instruction or supervision without which the ability of the to function in daily life would be seriously impaired: ? Requirement unmet due to Requirement Unmet. When considering [facility] eligibility for a need for regular or extensive supervision or instruction, we take into consideration documentation of functional impairments impacting daily life, including the frequency and severity of need for in-person supervision or instruction. Douglas is able to understand his treatment plan, and does not have a fiduciary or guardian (Primary Care collaborative 06/03/2024, Assessment 06/03/2024). Douglas does not need stand by or continuous cueing, supervision or instruction and is able to a use phone to call 911 in an emergency as needed. While spouse has concerns about leaving alone due to falls, there were not documentation of recent or consistent falls or recent falls with injury. Last fall documented 03/12/2022 (Nursing note 03/14/2022, Primary Care Collaboration 06/03/2024, Nurse Practitioner Note 06/11/2024). Taken together, there is no documentation of functional impairments that met the threshold [facility] that demonstrates that Douglas requires supervision or instruction. As above, drives, can be alone, and go out alone. As such, does not need regular or extensive instruction or supervision without which their ability to function in daily life would be seriously impaired, and thus Douglas is found ineligible for this criterion. FAMILY CAREGIVER FINDINGS * The Family Caregiver applicant resides in a State. The term State means each of the several States, Territories, and possessions of the [place], the [place], and the [facility] [place]. o Requirement met due to the Family Caregiver applicant residing in a State . * The Family Caregiver applicant is the eligible 's spouse, son, daughter, parent, stepfamily member, extended family member, or someone who lives with the eligible full-time or will do so if designated as a Family Caregiver. o Requirement met due to the Family Caregiver is a spouse, son, daughter, parent, stepfamily member, extended family member, or someone who lives with the eligible Douglas full-time or will do so if designated as a Family Caregiver. * The Family Caregiver applicant is 18 years of age or older. o Requirement met due to the Family Caregiver applicant is 18 years of age or older. * There is no determination by VA of abuse or neglect of the eligible [place] by the Family Caregiver applicant. o Requirement met due to there has been no determination by VA of abuse or neglect of the eligible by the Family Caregiver applicant. REQUIREMENTS NOT FULLY EVALUATED Eligibility for [employer] requires a multistep evaluation process. Once a requirement is determined to be unmet, the evaluation concludes, and a decision is issued. The evaluation process concluded and the full spectrum of evaluations necessary to approve and designate a Family Caregiver were not completed. The following additional requirements were not fully evaluated and would require evaluation prior to approval and designation of a Family Caregiver: * It is in the best interest of the applicant to participate in the program. In the best interest is a clinical determination that participation in the program is likely to be beneficial to the . Such determination includes consideration, by a clinician, of whether participation in the program: o Significantly enhances the Douglas's ability to live safely in a home setting; o Supports the 's potential progress in rehabilitation, if such potential exists; o Increases the 's potential independence, if such potential exists; and/or o Creates an environment that supports the health and well-being of the Douglas. * The personal care services that would be provided by the Family Caregiver applicant will not be simultaneously and regularly provided by or through another individual or entity. * The applicant receives care at home or will do so if [place] designates a Family Caregiver. * The applicant receives ongoing care from a primary care team or will do so if CT designates a Family Caregiver. Primary care team means one or more medical geneticist who care for a patient based on the clinical needs of the patient. Primary care teams must include a [place] primary care provider who is a physician, advanced practice nurse, or a physician physical therapy assistant instructor. * Your Family Caregiver applicant has not completed caregiver training and demonstrated the ability to carry out the specific personal care services, core competencies, and additional care requirements. Your Family Caregiver applicant has not participated in a home-care assessment which assesses your well-being, the well-being of your caregiver, as well as their competence to provide personal care services at your home. HOW TO OBTAIN OR ACCESS INFORMATION USED IN MAKING THIS DECISION You may request a copy of the evidence we used to make our decision the following ways. If you utilize [employer], you may access your records through that system. You may also request a copy of your records by submitting a signed and completed VA Form [id number], Individuals' Request for a Copy of Their Own Health Information, to the Social Worker Psychiatric at your local [place] medical facility. VA Form [id number] can be found at www.va.gov/vaforms/medical/ pdf/VHA% [email or web address] vision.[email or web address]. WHAT TO DO IF YOU DISAGREE WITH THE DECISION If you disagree with this decision, you have the right to request [facility] (A) review, or appeal to the Board of Veterans' Appeals (Board). Your options for doing so are described in the attached VA Form 10-305, Your Rights to Seek Further Review of PCAFC Decisions. OTHER VA SERVICES AND PROGRAMS TO SUPPORT CAREGIVERS [facility] is just one way [place] supports caregivers. Program of General Caregiver Support Services (PGCSS) Caregivers not eligible for PCAFC may be eligible to participate in PGCSS, which is a separate program under the VA Caregiver Support Program. PGCSS provides: * Caregiver skills training and education, both online and in-person * Coaching, supportive counseling and support groups * Peer Support Mentoring * Information on and referrals to VA and community resources There is no application needed for PGCSS. For more information about PGCSS, please contact your local VA Caregiver Support Program or visit the VA Caregiver Support Program's website at www.caregiver.va.gov. [place] [facility] ([facility]EC) [facility] offers a variety of programs to support Veterans and caregivers, including services in the home and in the community. Please visit the GE website at www.va.gov/GERIATRICS for information on all [facility] services and additional resources. VA Primary [facility] [place] [facility] serves as the foundation of [facility] ([facility]) health care and is the first point of contact with the health care system for Veterans enrolled in [facility]. If you are interested in learning about any VA resources, please speak with your Patient Aligned Care Team (PACT) Dryland Farmer or Primary Care provider for more information or assistance with a referral. If you have any questions about this letter or other matters, please contact the local [place]'s Caregiver Support Program (phone number enclosed) or visit the Caregiver Support Program's website at www.caregiver.va.gov. Sincerely, Caregiver Support Program Team ENCLOSURES: * Local [facility] Contact Information * Program of Comprehensive Assistance for Family Caregivers Eligibility Criteria Fact Sheet * VA FORM 10-305 Your Rights to seek Further Review of Program of Comprehensive Assistance for Family Caregivers (PCAFC) Decisions * Changes to Review and Appeal Options for PCAFC Decisions FAQs * Other: CC: Katie Pedro CC: [employer] [facility] [address] [place] [address] /gaetano/ Kristine Barnes [facility] MANAGER BUSINESS PROCESS Signed: 06/23/2024 14:08 Receipt Acknowledged By: 06/24/2024 08:15 /gaetano/ KENDALL WAYNE PRODUCT MANAGEMENT SPECIALIST 06/24/2024 09:01 /gaetano/ TRAVIS YANEZ, TAX INVESTIGATOR SOCIAL WORK EXECUTIVE KRISTINE BARNES [facility]
--- OUTSIDE RECORDS SUMMARY | 2024-11-01 08:03 | XMS_ITS | Encounter Summary ---
Author Name [facility] [place] Address [address] [place] [address] Care Team Providers Care Plant Propagator Name Role Phone ELIZABET ROBINS Primary Care [...] Patient's Relationship to Policy Paul [facility] CE ORGANIZ [facility] AC Apr 18, 2018 [id number] [phone] WILLIS,MAR JUDITH SPOUSE ANTHEM BCBS OF [place] ([place]ARD) [facility] CE ORGANIZ [facility]EN [facility] Apr 18, 2018 [id number] WILLIS,MAR JUDITH SPOUSE BCBS [facility] CE ORGANIZ [facility] SHARE ACTIV E Apr 18, 2018 [id number] WILLIS,MAR JUDITH SPOUSE [facility]GANIZ [facility] Apr 18, 2018 [id number] [phone] WILLIS,MAR JUDITH PATIENT BCBS OF [facility] CE ORGANJAVY [facility] Apr 18, 2018 [id number] WILLIS,MAR JUDITH SPOUSE BCBS OF [place] PREFERRED PROVIDER ORGANIZAT ION (PPO) BRENDA [facility] AC Apr 18, 2018 [id number] WILLIS,MAR JUDITH SPOUSE BCBS OF [facility] CE ORGANIZ BR[facility]DA [facility] ACT Apr 18, 2018 [id number] WILLIS,MAR JUDITH SPOUSE BCBS OF [facility] CE ORGANJAVY [facility] AC Apr 18, 2018 [id number] WILLIS,MAR JUDITH SPOUSE [place] PRESCRIPT ION RX22M A Oct 19, 2022 RX22MA [id number] WILLIS,LAVELLE AEL PATIENT [place] PRESCRIPT ION RX22M B Oct 19, 2022 RX22MB [id number] WILLIS,LAVELLE AEL PATIENT [place] PRESCRIPT ION [facility] AC Oct 19, 2022 RX22MB [id number] [phone] WILLIS,LAVELLE AEL SPOUSE [place] PRESCRIPT ION BCBS OF [place] Oct 19, 2022 RX22MA [id number] WILLIS, SPOUSE [place] PRESCRIPT ION RX22M B Oct 19, 2022 RX22MB [id number] [phone] WILLIS,MAR JUDITH SPOUSE [place] PRESCRIPT ION RX Oct 19, 2022 RX22MB [id number] [phone] WILLIS,MAR JUDITH SPOUSE [place] ([id number]) PRESCRIPT I[place] Oct 19, 2022 RX22MB [id number] WILLIS,MAR JUDITH SPOUSE [place] BC[place] ([facility] CE ORGANIZ [facility] AC Apr 18, 2018 [id number] WILLIS,EDILBERTO SOTELOZA SPOUSE [employer] [place] PRESCRIPT I[place] 2018 L4TA [id number] WILLIS,EDILBERTO SOTELOZA SPOUSE [employer] ([id number]) PRESCRIPT ION Apr 18, 2018 L4TA [id number] WILLIS,EDILBERTO SOTELOZA SPOUSE [employer] ([id number]) PRESCRIPT ION L4TA* Apr 18, 2020 L4TA [id number] WILLIS,EDILBERTO PALAFOXA SPOUSE [employer] ([id number]) PRESCRIPT ION L4TA* Apr 18, 2018 L4TA [id number] WILLIS,EDILBERTO PALAFOXA SPOUSE [employer] ([id number]) PRESCRIPT ION L4TA Apr 18, 2018 L4TA [id number] WILLIS,EDILBERTO WONG SPOUSE [employer] ([id number]) PRESCRIPT ION Apr 18, 2018 L4TA [id number] WILLISEDILBERTO SPOUSE [employer] ([id number]) PRESCRIPT ION Apr 18, 2018 L4TA [id number] WILLIS,EDILBERTO WONG SPOUSE [employer]-MINOR BROGATION PRESCRIPT ION BCBS OF [place] Apr 18, 2020 L4TA [id number] WILLIS,EDILBERTO WONG SPOUSE [facility] CE ORGANIZAT ION W/OUT OF NETWORK BENEFITS ARTRISTEN [facility] ACT Apr 18, 2018 [id number] WILLISEDILBERTO SPOUSE [place] BCBS [facility] (BLUECARD) [facility] CE ORGANIZAT ION [facility]ISTEN [facility] AC Apr 18, 2018 [id number] WILLIS,EDILBERTO WONG SPOUSE MEDICARE (WNR) MEDICARE (M) PART A Mar 19, 1990 PART A [id number] LAVELLE PEDRO AEL PATIENT MEDICARE (WNR) MEDICARE (M) PART A Mar 19, 1990 PART A [id number] WILLIS,LAVELLE AEL PATIENT MEDICARE (WNR) MEDICARE (M) PART A Mar 19, 1990 PART A [id number] WILLIS,LAVELLE AEL PATIENT MEDICARE (WNR) MEDICARE (M) PART A Mar 19, 1990 PART A [id number] [phone] WILLIS,LAVELLE AEL PATIENT MEDICARE (WNR) MEDICARE (M) PART A Mar 19, 1990 PART A [id number] WILLIS,LAVELLE AEL PATIENT MEDICARE (WNR) MEDICARE (M) PART A Mar 19, 1990 PART A [id number] WILLIS,LAVELLE AEL PATIENT MEDICARE (WNR) MEDICARE (M) PART A Mar 19, 1990 PART A [id number] WILLIS,LAVELLE AEL PATIENT MEDICARE (WNR) MEDICARE (M) PART A Mar 19, 1990 PART A [id number] WILLIS,LAVELLE AEL PATIENT MEDICARE (WNR) MEDICARE (M) PART A Mar 19, 1990 PART A [id number] WILLIS,LAVELLE AEL PATIENT MEDICARE (WNR) MEDICARE (M) PART A Mar 19, 1990 PART A [id number] WILLIS,LAVELLE AEL PATIENT MEDICARE (WNR) MEDICARE (M) PART A Mar 19, 1990 PART A [id number] WILLIS,LAVELLE AEL PATIENT Selected Encounter This section includes the information on record at [place] for the Encounter. Date/Time Encounter Type Encounter Description Reason Pro vider Source Jun 27, 2024 08:59 AM Outpatient Encounter ADMIN PAT ACTIVTIES (MASNONCT) [...] 20 appointments. The data comes from all [facility]. Appointment Date/Time Appointment Type Appointme nt Facility Name Jun 28, 2024 11:30 AM AMBULATORY - MEDICINE [place] [facility] Jul 08, 2024 10:30 AM AMBULATORY - MEDICINE [place] [facility] Jul 13, 2024 09:30 AM AMBULATORY - MEDICINE [place] [facility] Aug 12, 2024 09:30 AM AMBULATORY - MEDICINE [place] [facility] Aug 22, 2024 09:00 AM AMBULATORY - MEDICINE [place] [facility] [place] [facility] Sep 21, 2024 09:00 AM AMBULATORY - MEDICINE [place] [facility] Sep 21, 2024 10:00 AM AMBULATORY - MEDICINE [place] [facility] Nov 28, 2024 09:30 AM AMBULATORY - MEDICINE [place] [facility] Dec 02, 2024 08:30 AM AMBULATORY - MEDICINE [place] [facility] Active, Pending, and Scheduled Orders This section includes a listing of several types of active, pending, and scheduled orders, including clinic medications orders, diagnostic test orders, procedure orders and consult orders; where the start date of the order is 45 days before the date of the Encounter or 45 days after the date of theEncounter. The data comes from all [facility]. Test Date/Time Test Type Test Details Facility Name Jul 13, 2024 09:58 AM Consult Order PODIATRY/N HM OUTPT Cons Hand Mounter's Choice [place] [facility] [place] [facility] Lab Results: +/- 30 days [...] 2024 12:25 PM [place] [facility] [place] [facility] MICROALBUMIN CREATININE RATIO PANEL Specimen Type: URINE No comment entered. Ordering Provider: LINDA PERSON Report Released Date/Time: Jun 01, 2024 11:53 AM Reporting Lab: [facility] [address] [address] Performing Lab: [address] [address] MICROALBUMIN/C REATININE RATIO 10.8 mg/g 0-29.9 MICROALBUMIN,Q UANTITATIVE 1.1 mg/dL RR UNAVAIL CREATININE URINE 101.63 mg/dL Jun 01, 2024 10:38 AM [facility] HEMOGLOBIN A1C PANEL Specimen Type: [...] May 30, 2024 10:29 AM Reporting Lab: [address] [address] Performing Lab: [address] [address] HEMOGLOBIN A1C 5.8 H 4.0-5.6 Jun 01, 2024 10:38 AM [facility] BASIC METABOLIC PANEL (non-fasting) Specimen Type: SERUM No comment entered. Ordering Provider: LINDA PERSON Report Released Date/Time: May 30, 2024 10:29 AM Reporting Lab: [address] [address] Performing Lab: [address] [address] UREA NITROGEN 13 mg/dL 7-25 GLUCOSE 115 mg/dL H 65-100 SODIUM 140 mmol/L 135-145 POTASSIUM 4.3 mmol/L 3.5-5.0 CHLORIDE 107 mmol/L 100-110 CO2 21 meq/L 20-30 CREATININE, Serum 0.84 mg/dL 0.50-1.40 eGFR(CKD-EPI 2020) >90 mL/min >60 Jun 01, 2024 10:38 AM [place] [facility] [facility] LIPID PANEL, NON FASTING Specimen Type: SERUM No comment entered. Ordering Provider: LINDA PERSON Report Released Date/Time: Jun 01, 2024 10:12 AM Reporting Lab: [facility] [address] [address] Performing Lab[facility] [address] [address] CHOLESTEROL 126 mg/dL TRIGLYCERIDE 114 mg/dL 0-150 [...] took place. Date/Time Current Smoking Status Comment [facility] Nov 27, 2023 11:00 AM [facility]AC[facility] [place] [facility] Tobacco Use History This section includes a history of the smoking, or tobacco-related health factors, that were collected on or before the date of the Encounter. The data comes from the [place] facility where the Encounter took place. Date/Time Smoking Status/Tobac co Use Comment Facility Nov 27, 2023 11:00 AM VA-TOBACCO QUIT 15 YRS OR MORE [place] [facility] [place] [facility] Dec 02, 2022 08:00 AM VA-TOBACCO FORMER USER [facility] [place] [facility] Dec 02, 2022 08:00 AM VA-TOBACCO QUIT 15 YRS OR MORE [facility] [place] [facility] Nov 05, 2021 10:30 AM VA-TOBACCO FORMER USER [facility] [place] [facility] Nov 05, 2021 10:30 AM VA-TOBACCO QUIT 1 TO < 5 YRS [place] [facility] [facility] Sep 14, 2020 02:00 PM VA-TOBACCO FORMER USER [facility] [place] [facility] Sep 14, 2020 02:00 PM VA-TOBACCO QUIT 5 TO < 15 YRS [facility] Jan 22, 2018 03:40 PM QUIT TOBACCO USE > 7 YEARS AGO [facility] Jun 04, 2016 02:01 PM CURRENT SMOKER been smoking pass 20 yrs [facility] Jun 04, 2016 02:01 PM V1-PT DECLINES REF TO TOBACCO CESS PRGM [facility] Jun 04, 2016 02:01 PM V1-PT THINKING ABOUT QUIT TOBACCO USE [facility] Jul 18, 2014 03:31 PM V1-PT DECLINES REF TO TOBACCO CESS PRGM [facility] Jul 18, 2014 03:31 PM V1-PT DECLINES TOBACCO CESSATION MEDS [facility] Jul 18, 2014 03:31 PM V1-PT NOT INTERESTED IN QUIT TOBACCO USE [facility] Jan 09, 2014 10:43 AM CURRENT SMOKER pt smokes 1 pk of cigarettes per day. [facility] Jan 09, 2014 10:43 AM V1-PT THINKING ABOUT QUIT TOBACCO USE [facility] Aug 28, 2003 10:47 AM CURRENT SMOKER one pack q 6 days - he has cut down from 3 PPD. He is in the process of quitting [facility] Encounter Notes: All associated encounter notes This section contains the clinical notes associated to the Encounter. Date/Time Encounter Note(s) Provider Source Jun 27, 2024 08:59 AM ADMINISTRATIVE NOT E: LOCAL TITLE: CCC: SCHEDULING ADMINISTRATION STANDARD TITLE: ADMINISTRATIVE NOTE DATE OF NOTE: JUN 27, 2024@08:59:12 ENTRY DATE: JUN 27, 2024@08:59:12 AUTHOR: ELYSE SANDOVAL COSIGNER: URGENCY: STATUS: COMPLETED CCC: SCHEDULING ADMINISTRATION Has ADDENDA Patient Demographics Patient Name: CHAYA PEDRO Patient Primary Phone: [phone] Patient Primary Address: [address] [place] [id number] Patient : 1955 Patient Age: 68 Caller/Recipient Relation to Patient: Self Administrative Administrative Note Comments: Patient's Katie, requesting a discharge f.u with pcp; patient was seen at [facility] for chest pain, please contact and assist. IMPORTANT: This note was created by [facility] Clinical Contact Center staff. Please do not alert the staff member by adding them as a signer for future communications. Alerts are not monitored by this user. /gaetano/ ELYSE SANDOVAL Signed: 06/27/2024 08:59 Receipt Acknowledged By: 06/27/2024 10:49 /es/ MARYJO GARCIA REGISTERED NURSE for DEBBIE Talamantes SHERIF 06/27/2024 13:40 /es/ AUGUSTA GALINDO LPN LPN for EARL AASHISH 06/27/2024 ADDENDUM STATUS: COMPLETED RN returned call /es/ MARYJO GARCIA REGISTERED NURSE Signed: 06/27/2024 10:14 EL[facility]SE [facility]ANDOVAL [facility]
--- OUTSIDE RECORDS SUMMARY | 2024-11-01 08:03 | XMS_ITS | Encounter Summary ---
Author Name Department of [place] Organization [facility] [place] Address [address] [place] [address] Care Team Providers Care Rn Team Leader Name Role Phone ELIZABET ROBINS Primary Care [...] Paul's Name Patient's Relationship to Policy Paul [facility] CE ORGANIZ [facility] AC Apr 18, 2018 [id number] WILLIS,MAR JUDITH SPOUSE ANTHEM BCBS OF [place] (BLUECARD) [facility] CE ORGANIZ [facility] Apr 18, 2018 [id number] [phone] WILLIS,MAR JUDITH SPOUSE BCBS [facility] CE ORGANIZ [facility] SHARE ACTIV E Apr 18, 2018 [id number] WILLIS,MAR JUDITH SPOUSE BCBS OF [facility]GAN[facility] Apr 18, 2018 [id number] WILLIS,MAR JUDITH PATIENT BCBS OF [facility] CE ORGANIZ BRENDA MCCABE [facility] Apr 18, 2018 [id number] WILLIS,MAR JUDITH SPOUSE BCBS OF [place] PREFERRED PROVIDER ORGANIZAT ION (PPO) BRENDA MCCABE [facility] AC Apr 18, 2018 [id number] WILLIS,MAR JUDITH SPOUSE BCBS OF [facility] CE ORGANIZ BRENDA MCCABE [facility] ACT Apr 18, 2018 [id number] WILLIS,MAR JUDITH SPOUSE BCBS OF [facility] CE ORGANIZ BRENDA MCCABE [facility] AC Apr 18, 2018 [id number] [phone] WILLIS,MAR JUDITH SPOUSE [place] PRESCRIPT ION BCBS OF [place] Oct 19, 2022 RX22MA [phone] WILLIS, SPOUSE [place] PRESCRIPT ION RX22M A Oct 19, 2022 RX22MA [id number] WILLIS,LAVELLE AEL PATIENT [place] PRESCRIPT ION RX22M B Oct 19, 2022 RX22MB [id number] WILLIS,LAVELLE AEL PATIENT [place] PRESCRIPT ION RX22M B Oct 19, 2022 RX22MB [id number] [phone] WILLIS,MAR JUDITH SPOUSE [place] PRESCRIPT ION RX Oct 19, 2022 RX22MB [id number] WILLIS,MAR JUDITH SPOUSE [place] PRESCRIPT ION BRENDA MCCABE [facility] AC Oct 19, 2022 RX22MB [id number] [phone] WILLIS,LAVELLE AEL SPOUSE [place] ([id number]) PRESCRIPT ION BCBS OF [place] Oct 19, 2022 RX22MB [id number] [phone] WILLIS,MAR JUDITH SPOUSE [place] BCBS ([facility] CE ORGANIZ BRENDA MCCABE [facility] AC Apr 18, 2018 [id number] WILLIS,EDILBERTO WONG SPOUSE [employer] [place] PRESCRIPT I[place]BS [place] 2018 L4TA [id number] WILLISEDILBERTO SPOUSE [employer] ([id number]) PRESCRIPT ION Apr 18, 2018 L4TA [id number] WILLIS,EDILBERTO WONG SPOUSE [employer] ([id number]) PRESCRIPT ION L4TA* Apr 18, 2020 L4TA [id number] WILLISEDILBERTOA SPOUSE [employer] ([id number]) PRESCRIPT ION L4TA Apr 18, 2018 L4TA [id number] WILLIS,EDILBERTO WONG SPOUSE [employer] ([id number]) PRESCRIPT ION Apr 18, 2018 L4TA [id number] WILLIS,EDILBERTO WONG SPOUSE [employer] ([id number]) PRESCRIPT ION L4TA* Apr 18, 2018 L4TA [id number] WILLISEDILBERTO SPOUSE [employer] ([id number]) PRESCRIPT ION Apr 18, 2018 L4TA [id number] WILLISEDILBERTO SPOUSE [employer]-MINOR BROGATION PRESCRIPT ION [place]BS OF [place] Apr 18, 2020 L4TA [id number] WILLIS,EDILBERTO WONG SPOUSE [facility] ([facility] CE ORGANIZAT ION W/OUT OF NETWORK BENEFITS DETRISTEN MCCABE [facility] ACT Apr 18, 2018 [id number] [phone] WILLISEDILBERTO SPOUSE [place] BCBS [facility] (BLUECARD) [facility] CE ORGANIZAT ION [facility]RISTEN [facility] AC Apr 18, 2018 [id number] [phone] WILLISEDILBERTO SPOUSE MEDICARE (WNR) MEDICARE (M) PART A Mar 19, 1990 PART A [id number] WILLISLAVELLE AEL PATIENT MEDICARE (WNR) MEDICARE (M) PART A Mar 19, 1990 PART A [id number] WILLIS,LAVELLE AEL PATIENT MEDICARE (WNR) MEDICARE (M) PART A Mar 19, 1990 PART A [id number] WILLIS,LAVELLE AEL PATIENT MEDICARE (WNR) MEDICARE (M) PART A Mar 19, 1990 PART A [id number] [phone] [id number] WILLIS,LAVELLE AEL PATIENT MEDICARE (WNR) MEDICARE (M) PART A Mar 19, 1990 PART A [id number] WILLIS,LAVELLE AEL PATIENT MEDICARE (WNR) MEDICARE (M) PART A Mar 19, 1990 PART A [id number] [phone] [id number] WILLIS,LAVELLE AEL PATIENT MEDICARE (WNR) MEDICARE (M) PART A Mar 19, 1990 PART A [id number] [phone] WILLIS,LAVELLE AEL PATIENT MEDICARE (WNR) MEDICARE (M) PART A Mar 19, 1990 PART A [id number] [phone] WILLIS,LAVELLE AEL PATIENT MEDICARE (WNR) MEDICARE (M) PART A Mar 19, 1990 PART A [id number] WILLIS,LAVELLE AEL PATIENT MEDICARE (WNR) MEDICARE (M) PART A Mar 19, 1990 PART A [id number] [phone] [id number] WILLIS,LAVELLE AEL PATIENT MEDICARE (WNR) MEDICARE (M) PART A Mar 19, 1990 PART A [id number] WILLIS,LAVELLE AEL PATIENT Selected Encounter This section includes the information on record at [place] for the Encounter. Date/Time Encounter Type Encounter Description Reason Pro vider Source Jun 21, 2024 11:28 PM Outpatient Encounter ADMIN PAT ACTIVTIES (MASNONCT) [...] 20 appointments. The data comes from all [facility]. Appointment Date/Time Appointment Type Appointme nt Facility Name Jun 28, 2024 11:30 AM AMBULATORY - MEDICINE [place] [place] [facility] Jul 08, 2024 10:30 AM AMBULATORY - MEDICINE ID C [place] [place] [facility] Jul 13, 2024 09:30 AM AMBULATORY - MEDICINE ID C [place] [place] [facility] Aug 12, 2024 09:30 AM AMBULATORY - MEDICINE ID C [place] [place] [facility] Aug 22, 2024 09:00 AM AMBULATORY - MEDICINE ID C [place] [place] [facility] Sep 21, 2024 09:00 AM AMBULATORY - MEDICINE ID C [place] [place] [facility] Sep 21, 2024 10:00 AM AMBULATORY - MEDICINE ID C [place] [place] [facility] Nov 28, 2024 09:30 AM AMBULATORY - MEDICINE ID C [place] [place] [facility] Dec 02, 2024 08:30 AM AMBULATORY - MEDICINE ID C [facility] [place] [facility] Active, Pending, and Scheduled Orders This section includes a listing of several types of active, pending, and scheduled orders, including clinic medications orders, diagnostic test orders, procedure orders and consult orders; where the start date of the order is 45 days before the date of the Encounter or 45 days after the date of theEncounter. The data comes from all [facility]. Test Date/Time Test Type Test Details Facility Name Jul 13, 2024 09:58 AM Consult Order PODIATRY/N HM OUTPT Cons Impregnator Electrolytic Capacitors's Choice ID [facility] [place] [facility] Lab Results: +/- 30 days [...] Range Comment Jun 01, 2024 12:25 PM [place] [facility] [place] [facility] MICROALBUMIN CREATININE RATIO PANEL Specimen Type: URINE No comment entered. Ordering Provider: LINDA PERSON Report Released Date/Time: Jun 01, 2024 11:53 AM Reporting Lab: [facility] [address] [address] Performing Lab: [address] [address] MICROALBUMIN/C REATININE RATIO 10.8 mg/g 0-29.9 MICROALBUMIN,Q UANTITATIVE 1.1 mg/dL RR UNAVAIL CREATININE URINE 101.63 mg/dL Jun 01, 2024 10:38 AM [facility] HEMOGLOBIN A1C PANEL [...] May 30, 2024 10:29 AM Reporting Lab: [address] [address] Performing Lab: [address] [address] HEMOGLOBIN A1C 5.8 H 4.0-5.6 Jun 01, 2024 10:38 AM [facility] BASIC METABOLIC PANEL (non-fasting) Specimen Type: SERUM No comment entered. Ordering Provider: LINDA PERSON Report Released Date/Time: May 30, 2024 10:29 AM Reporting Lab: [address] [address] Performing Lab: [address] [address] UREA NITROGEN 13 mg/dL 7-25 GLUCOSE 115 mg/dL H 65-100 SODIUM 140 mmol/L 135-145 POTASSIUM 4.3 mmol/L 3.5-5.0 CHLORIDE 107 mmol/L 100-110 CO2 21 meq/L 20-30 CREATININE, Serum 0.84 mg/dL 0.50-1.40 eGFR(CKD-EPI 2020) >90 mL/min >60 Jun 01, 2024 10:38 AM [facility] LIPID PANEL, NON FASTING Specimen Type: SERUM No comment entered. Ordering Provider: LINDA PERSON Report Released Date/Time: Jun 01, 2024 10:12 AM Reporting Lab: [facility] [address] [address] Performing Lab: [facility] [address] [address] CHOLESTEROL 126 mg/dL TRIGLYCERIDE 114 mg/dL 0-150 [...] took place. Date/Time Current Smoking Status Comment [facility] Nov 27, 2023 11:00 AM ID-TOBACCO QUIT 15 YRS OR MORE [facility] Tobacco Use History This section includes a history of the smoking, or tobacco-related health factors, that were collected on or before the date of the Encounter. The data comes from the ID facility where the Encounter took place. Date/Time Smoking Status/Tobac co Use Comment Facility Nov 27, 2023 11:00 AM VA-TOBACCO QUIT 15 YRS OR MORE ID [facility] [place] [facility] Dec 02, 2022 08:00 AM VA-TOBACCO FORMER USER ID [facility] [place] [facility] Dec 02, 2022 08:00 AM VA-TOBACCO QUIT 15 YRS OR MORE [facility] [place] [place] [facility] Nov 05, 2021 10:30 AM VA-TOBACCO FORMER USER ID [facility] [place] [facility] Nov 05, 2021 10:30 AM VA-TOBACCO QUIT 1 TO < 5 YRS ID [facility] [place] [facility] Sep 14, 2020 02:00 PM VA-TOBACCO FORMER USER [facility] Sep 14, 2020 02:00 PM VA-TOBACCO QUIT 5 TO < 15 YRS [facility] Jan 22, 2018 03:40 PM QUIT TOBACCO USE > 7 YEARS AGO [facility] Jun 04, 2016 02:01 PM CURRENT SMOKER been smoking pass 20 yrs [facility] Jun 04, 2016 02:01 [...] the process of quitting [facility] Encounter Notes: All associated encounter notes This section contains the clinical notes associated to the Encounter. Date/Time Encounter Note(s) Provider Source Jun 21, 2024 11:28 PM PHARMACY NOTE: LOCAL TITLE: V1 PHARMACY CUSTOMER CARE MEDICATION RENEWAL STANDARD TITLE: PHARMACY NOTE DATE OF NOTE: JUN 21, 2024@23:28 ENTRY DATE: JUN 21, 2024@23:28:32 AUTHOR: BONG JOE COSIGNER: URGENCY: STATUS: COMPLETED Date: Jun Division: [place] Pt referred by Pharmacy Call Center for medication renewal: Non-controlled/maintena nce medication Medications requested: [id number] AMLODIPINE BESYLATE 5MG TAB Defer to primary care provider To be mailed . Please review and renew if appropriate. *This note was generated by [facility] Customer Care. If you have any questions or need assistance, do not contact this author. Please refer all questions to your local, on-site pharmacy departments. /gaetano/ BONG JOE CPhT Equipment Engineering Technician, [place]/Pharmacy Customer Care Signed: 06/21/2024 23:28 Receipt Acknowledged By: 06/24/2024 15:31 /gaetano/ CIERRA GREGORY Nurse Practitioner 06/22/2024 07:52 /gaetano/ DEBBIE GORMAN, MSN, RN, CNL PRIMARY CARE TEAM NURSE BONG JOE [facility]
--- OUTSIDE RECORDS SUMMARY | 2024-11-01 08:03 | XMS_ITS ---
Author Name [facility] [place] Organization [facility] [place] Address [address] [place] [address] Care Team Providers Care Radial Router Operator Name Role Phone ELIZABET ROBINS Primary [...] Paul's Name Patient's Relationship to Policy Paul [facility] CE ORGANIZ [facility] Apr 18, 2018 [phone] WILLIS,MAR JUDITH SPOUSE ANTHEM BCBS OF [place] ([place]) [facility] CE ORGANIZ BRENDA [facility] Apr 18, 2018 [phone] WILLIS,MAR JUDITH SPOUSE BCBS [facility] CE ORGANIZ [facility] ACTIV E Apr 18, 2018 [id number] WILLIS,MAR JUDITH SPOUSE BCBS OF [facility]GANIZ NVTRISTEN [facility] Apr 18, 2018 [id number] WILLIS,MAR JUDITH PATIENT BCBS OF [facility] CE ORGANIZ BRENDA [facility] Apr 18, 2018 [id number] WILLIS,MAR JUDITH SPOUSE BCBS OF [place] PREFERRED PROVIDER ORGANIZAT ION (PPO) BRENDA [facility] AC Apr 18, 2018 [id number] [phone] WILLIS,MAR JUDITH SPOUSE BCBS OF [facility] CE ORGANIZ BRENDA [facility] ACT Apr 18, 2018 [id number] WILLIS,MAR JUDITH SPOUSE BCBS OF [facility] CE ORGANIZ BRENDA [facility] AC Apr 18, 2018 [id number] [phone] WILLIS,MAR JUDITH SPOUSE [place] PRESCRIPT ION RX22M B Oct 19, 2022 [id number] WILLIS,MAR JUDITH SPOUSE [place] PRESCRIPT ION RX22M A Oct 19, 2022 RX22MA [id number] WILLIS,LAVELLE AEL PATIENT [place] PRESCRIPT ION RX22M B Oct 19, 2022 RX22MB [id number] WILLIS,LAVELLE AEL PATIENT [place] PRESCRIPT ION [place] Oct 19, 2022 RX22MA [phone] WILLIS, SPOUSE [place] PRESCRIPT ION RX Oct 19, 2022 RX22MB [id number] WILLIS,MAR JUDITH SPOUSE [place] PRESCRIPT ION BRENDA MCCABE [facility] AC Oct 19, 2022 RX22MB [id number] WILLIS,LAVELLE AEL SPOUSE [place] ([id number]) PRESCRIPT ION [place] Oct 19, 2022 [id number] WILLIS,MAR JUDITH SPOUSE [place] BCBS ([facility] CE ORGANIZ BRENDA MCCABE [facility] AC Apr 18, 2018 [id number] WILLISEDILBERTO SPOUSE [place] PRESCRIPT ION BCBS [place] 2018 L4TA [id number] WILLISEDILBERTO SPOUSE [employer] ([id number]) PRESCRIPT ION Apr 18, 2018 L4TA [id number] WILLIS,EDILBERTO WONG SPOUSE [employer] ([id number]) PRESCRIPT ION L4TA* Apr 18, 2020 L4TA [id number] WILLISEDILBERTOA SPOUSE [employer] ([id number]) PRESCRIPT ION L4TA Apr 18, 2018 L4TA [id number] WILLISEDILBERTO SPOUSE [employer] ([id number]) PRESCRIPT ION Apr 18, 2018 L4TA [id number] WILLISEDILBERTO SPOUSE [employer] ([id number]) PRESCRIPT ION L4TA* Apr 18, 2018 L4TA [id number] WILLISEDILBERTO Lynn SPOUSE [employer] ([id number]) PRESCRIPT ION Apr 18, 2018 L4TA [id number] EDILBERTO PEDRO SPOUSE [employer] [place]-MINOR [place]OG[place] PRESCRIPT ION BCBS OF [place] Apr 18, 2020 L4TA [id number] WILLISEDILBERTO SPOUSE [facility]ALTH [facility] CE ORGANIZAT ION W/OUT OF NETWORK BENEFITS NVTRISTEN [facility] RSD ACT Apr 18, 2018 [id number] [phone] EDILBERTO PEDRO SPOUSE [place] BCBS [facility] ([facility]ALTH [facility] CE ORGANIZAT ION [facility] AC Apr 18, 2018 [id number] EDILBERTO PEDRO SPOUSE MEDICARE (WNR) MEDICARE (M) PART A Mar 19, 1990 PART A [id number] [phone] [id number] WILLISLAVELLE AEL PATIENT MEDICARE (WNR) MEDICARE (M) PART A Mar 19, 1990 PART A [id number] WILLIS,LAVELLE AEL PATIENT MEDICARE (WNR) MEDICARE () PART A Mar 19, 1990 PART A [id number] WILLIS,LAVELLE AEL PATIENT MEDICARE (WNR) MEDICARE (M) PART A Mar 19, 1990 PART A [id number] [phone] WILLIS,LAVELLE AEL PATIENT MEDICARE (WNR) MEDICARE (M) PART A Mar 19, 1990 PART A [id number] WILLIS,LAVELLE AEL PATIENT MEDICARE (WNR) MEDICARE (M) PART A Mar 19, 1990 PART A [id number] WILLIS,LAVELLE AEL PATIENT MEDICARE (WNR) MEDICARE () PART A Mar 19, 1990 PART A [id number] WILLIS,LAVELLE AEL PATIENT MEDICARE (WNR) MEDICARE () PART A Mar 19, 1990 PART A [id number] WILLIS,LAVELLE AEL PATIENT MEDICARE (WNR) MEDICARE (M) PART A Mar 19, 1990 PART A [id number] WILLIS,LAVELLE AEL PATIENT MEDICARE (WNR) MEDICARE (M) PART A Mar 19, 1990 PART A [id number] [phone] WILLIS,LAVELLE AEL PATIENT MEDICARE (WNR) MEDICARE () PART A Mar 19, 1990 PART A [id number] [phone] WILLIS,LAVELLE AEL PATIENT Selected Encounter This section includes the information on record at [place] for the Encounter. Date/Time Encounter Type Encounter Description Reason Provider Source Jun 22, 2024 07:06 AM PROGRAM INTAKE ASSESSMENT CAREGIVER SUPPORT PROGRAM ICD-10-CM Z74.1 Need for assistance with personal care KAYLEE WHITAKER Encounter Template Text not used by [place] Assessments - Encounter Diagnoses This section includes the primary and secondary diagnoses documented for the Encounter. Date/Time Primary/Secondary Diagnosis Diagnosis Name Provider Source Jun 22, 2024 01:24 PM PRIMARY Need for assistance with personal care KAYLEE WHITAKER [place] [facility] [place] [facility] Plan of Treatment: Future Appointments (+ 6 months) and Future Tests (+/- 45 days) The Plan of Treatment section includes future care activities for the patient from [facility] This section includes future appointments and future orders which are active, pending or scheduled. Future Appointments This section includes appointments that were scheduled to occur 6 months from the date of the Encounter, up to a maximum of 20 appointments. The data comes from all [facility]. Appointment Date/Time Appointment Type Appointme nt Facility Name Jun 28, 2024 11:30 AM AMBULATORY - MEDICINE [place] [facility] Jul 08, 2024 10:30 AM AMBULATORY MEDICINE [place] [facility] Jul 13, 2024 09:30 AM AMBULATORY MEDICINE [place] [facility] Aug 12, 2024 09:30 AM AMBULATORY MEDICINE [place] [facility] Aug 22, 2024 09:00 AM AMBULATORY MEDICINE [place] [facility] Sep 21, 2024 09:00 AM AMBULATORY MEDICINE [place] [facility] Sep 21, 2024 10:00 AM AMBULATORY MEDICINE [place] [facility] Nov 28, 2024 09:30 AM AMBULATORY MEDICINE [place] [facility] Dec 02, 2024 08:30 AM AMBULATORY MEDICINE [facility] [place] [facility] Active, Pending, and Scheduled Orders This section [...] from all [facility]. Test Date/Time Test Type Test Details Facility Name Jul 13, 2024 09:58 AM Consult Order PODIATRY/N HM OUTPT Cons Instructional Systems Design Consultant's Choice [facility] Lab Results: +/- 30 days of the encounter This section includes the Chemistry and Hematology Lab Results on record with [place] for the patient. Radiology Reports and Pathology Reports are provided separately, in subsequent sections. Lab Results This section contains the Chemistry/Hematology Results that were resulted 30 days before or 30 daysafter the date of the Encounter. Date/Time Source Result Type Result - Unit Interpretation Reference Range Comment Jun 01, 2024 12:25 PM [facility] MICROALBUMIN CREATININE RATIO PANEL Specimen Type: URINE No comment entered. Ordering Provider: LINDA PERSON Report Released Date/Time: Jun 01, 2024 11:53 AM Reporting Lab: [facility] [place] [address] [address] Performing Lab: [facility] [address] MICROALBUMIN/C REATININE RATIO 10.8 mg/g 0-29.9 MICROALBUMIN,Q UANTITATIVE 1.1 mg/dL RR UNAVAIL CREATININE URINE 101.63 mg/dL Jun 01, 2024 10:38 AM [facility] HEMOGLOBIN A1C PANEL Specimen Type: BLOOD Comment: [...] May 30, 2024 10:29 AM Reporting Lab: [facility] [address] Performing Lab: [facility] [address] [address] HEMOGLOBIN A1C 5.8 H 4.0-5.6 Jun 01, 2024 10:38 AM [facility] BASIC METABOLIC PANEL (non-fasting) Specimen Type: SERUM No comment entered. Ordering Provider: LINDA PERSON Report Released Date/Time: May 30, 2024 10:29 AM Reporting Lab: [facility] [address] Performing Lab: [facility] [address] [address] UREA NITROGEN 13 mg/dL 7-25 GLUCOSE 115 mg/dL H 65-100 SODIUM 140 mmol/L 135-145 POTASSIUM 4.3 mmol/L 3.5-5.0 CHLORIDE 107 mmol/L 100-110 CO2 21 meq/L 20-30 CREATININE, Serum 0.84 mg/dL 0.50-1.40 eGFR(CKD-EPI 2020) >90 mL/min >60 Jun 01, 2024 10:38 AM [facility] LIPID PANEL, NON FASTING Specimen Type: SERUM No comment entered. Ordering Provider: LINDA PERSON Report Released Date/Time: Jun 01, 2024 10:12 AM Reporting Lab: [address] [address] Performing Lab: [address] [address] CHOLESTEROL 126 mg/dL TRIGLYCERIDE 114 mg/dL 0-150 LDL calculated 60 mg/dL 0-129 CHOL/HDL 2.9 HDL CHOLESTEROL 43 mg/dL 40-60 Social History: Smoking Status (Most current) and Tobacco Use (All prior to encounter date) This section includes the most current, and the historical, smoking and tobacco- related health factors from the [place] facility where the Encounter took place. Current Smoking Status This section includes the most current smoking, or tobacco-related health factor, from the [place] facility where the Encounter took place. Date/Time Current Smoking Status Comment Enrique mancia Nov 27, 2023 11:00 AM VA-TOBACCO FORMER USER [facility] Tobacco Use History This section includes a history of the smoking, or tobacco-related health factors, that were collected on or before the date of the Encounter. The data comes from the [place] facility where the Encounter took place. Date/Time Smoking Status/Tobac co Use Comment Facility Nov 27, 2023 11:00 AM AL-TOBACCO QUIT 15 YRS OR MORE [facility] Dec 02, 2022 08:00 AM VA-TOBACCO FORMER USER [facility] Dec 02, 2022 08:00 AM AL-TOBACCO QUIT 15 YRS OR MORE [facility] Nov 05, 2021 10:30 AM VA-TOBACCO FORMER USER [facility] Nov 05, 2021 10:30 AM VA-TOBACCO QUIT 1 TO < 5 YRS [facility] Sep 14, 2020 02:00 PM VA-TOBACCO FORMER USER [facility] Sep 14, 2020 02:00 PM VA-TOBACCO QUIT 5 TO < 15 YRS [facility] Jan 22, 2018 03:40 PM QUIT TOBACCO USE > 7 YEARS AGO [facility] Jun 04, 2016 02:01 PM CURRENT SMOKER been smoking pass 20 yrs [facility] Jun 04, 2016 02:01 PM V1-PT DECLINES REF TO TOBACCO CESS PRGM [facility] Jun 04, 2016 02:01 PM V1-PT THINKING ABOUT QUIT TOBACCO USE [facility] Jul 18, 2014 03:31 PM V1-PT DECLINES REF TO TOBACCO CESS PRGM [facility] Jul 18, 2014 03:31 PM V1-PT DECLINES TOBACCO CESSATION MEDS [facility] Jul 18, 2014 03:31 PM V1-PT NOT INTERESTED IN QUIT TOBACCO USE [facility] Jan 09, 2014 10:43 AM CURRENT SMOKER pt smokes 1 pk of cigarettes per day. [facility] Jan 09, 2014 10:43 AM V1-PT THINKING ABOUT QUIT TOBACCO USE [facility] Aug 28, 2003 10:47 AM CURRENT SMOKER one pack q 6 days - he has cut down from 3 PPD. He is in the process of quitting [facility] Encounter Notes: All associated encounter notes This section contains the clinical notes associated to the Encounter. Date/Time Encounter Note(s) Provider Source Jun 23, 2024 12:22 PM ADDENDUM: LOCAL TITLE: Addendum STANDARD TITLE: ADDENDUM DATE OF NOTE: JUN 23, 2024@12:22:10 ENTRY DATE: JUN 23, 2024@12:22:12 AUTHOR: KAYLEE WHITAKER EXP COSIGNER: URGENCY: STATUS: COMPLETED [place] functional assessment conducted as part of the application process for [facility] Program of Comprehensive Assistance for Family Caregivers. During assessment it was noted that CG assists with putting on socks - reports he used to have a sock suzette which made it easier and would like replacement if PCP in agreement. /es/ KAYLEE WHITAKER RN Signed: 06/23/2024 12:23 Receipt Acknowledged By: 06/23/2024 12:46 /es/ CIERRA GREGORY Nurse Practitioner 06/23/2024 15:42 /es/ DEBBIE GORMAN, MSN, RN, CNL PRIMARY CARE TEAM NURSE === --- Original Document --- 06/22/24 [facility] FUNCTIONAL ASSESSMENT INSTRUMENT CONSULT: FUNCTIONAL ASSESSMENT INSTRUMENT The Program of Comprehensive Assistance for Family Caregivers (PCAFC) provides services and additional benefits to approved and designated Family Caregivers of eligible Veterans or service members who are in need of personal care services for a minimum of six continuous months based on any one of the following: - An inability to perform one or more activities of daily living; - A need for supervision or protection based on symptoms or residuals of neurological or other impairment or injury; or - A need for regular or extensive instruction or supervision without which the ability of the [place] to function in daily life would be seriously impaired. Assessment of the need for personal care services is just one piece of the overall application process. The Functional Assessment Instrument (VFAI) captures the or access services librarian's functional needs, as they relate to the requirements for PCAFC. The assessment should only be used with Veterans or service members who have applied to or are participating in PCAFC and a consult has been placed for this assessment by Caregiver Support Program Staff. The author completing this assessment must be in compliance with all required Caregiver Support Program and VA trainings. Method of contact: Telehealth/ VA Video Connect Modality of Care: Video Telehealth Patient Contact Details: Best contact number for backup/emergency communication with patient: PATIENT PHONE - Patient Location/Surroundings During Visit: Patient location during visit: Home [address], [place] [address] Others present for visit with patient's consent: Name: spouse Katie Patient confirms location is safe and private for visit. Telehealth Disclosure: Visit conducted by synchronous telehealth. Patient verbal consent obtained. Location/emergency number confirmed. Environment surveyed and all participants identified. Virtual conference room locked. VFAI: PART A EATING (1) Eating: Set-up or clean-up assistance Defined as: The ability to use suitable utensils to bring food and/or liquid to the mouth and swallow food and/or liquid once the meal is placed before the person. Comments/additional information: reports CG cuts up his meat. CG reports when he has seizures, hand tremors he can't do it GROOMING (2a) Oral hygiene: Set-up or clean-up assistance Defined as: The ability to use suitable items to clean teeth. [Dentures (if applicable): the ability to insert and remove dentures into and from the mouth, and manage denture soaking and rinsing with use of equipment.] has upper dentures and natural bottom teeth. CG assists with cleaning dentures and putting on adhesive. She brings case to him and he places dentures in and she cleans. [place] reports he is able to brush his own bottom teeth (2b) Wash upper body: Person does not usually do this activity Defined as: The ability to wash, rinse, and dry the face, hands, chest, and arms while sitting in a chair or bed. Comments/additional information: takes baths BATHING (3) Shower/bathe self: Independent Defined as: The ability to bathe self, including washing, rinsing, and drying self. Does not include transferring in/out of tub/shower. Comments/additional information: [place] has tub/shower combination, grab bars and shower chair. He takes baths while CG remains with him. He reports CG washes his back and sometimes underarms and private area. DRESSING AND UNDRESSING (4a) Upper body dressing: Independent Defined as: The ability to dress and undress above the waist, including fasteners (if applicable). [place] picks out his own clothes. He reports hx L shoulder dislocation which makes it hard to put on/take off shirts. CG may assist with bottom buttons. If she's not here I wear the same clothes (4b) Lower body dressing: Supervision or touching assistance Defined as: The ability to dress and undress below the waist, including fasteners; does not include footwear. [place] reports poor balance and history of falls. CG assists with putting on/taking off underwear and pants. [place] leans on CG and it's like a dance one foot then the other. (4c) Putting on/taking off footwear: Independent Defined as: The ability to put on and take off socks and shoes, or other footwear that is appropriate for safe mobility, including fasteners (if applicable). wears socks and sandals inside the house. He can put on/take off slippers himself. CG assists with socks - reports he used to have a sock suzette which made it easier. Would like replacement Comments/additional information: Plese see [facility] Primary Care Collaboration note 06/03/24. has occasional unsteady gait and h/s falls but none recently TOILETING (5) Toileting hygiene: Person requires assistance only sometimes Defined as: The ability to maintain perineal/menstrual hygiene and adjust clothes before and after voiding or having a bowel movement. If managing an ostomy, include wiping the opening but not managing equipment. Comments/additional information: reports urine accidents over the past year and sometimes wears incontinence briefs which he reports CG assists with changing. He reports sometimes needing assistance with hygiene following bowel movement. PROSTHETICS (6) Prosthetics (Use of Assistive Devices): Not applicable - does not use prosthetics or assistive devices Defined as: The ability to adjust special prosthetic or orthopedic appliances. The adjustment of appliances that any person (with or without a disability) would need assistance with should not be scored (for example, supports, belts, lacing at back, etc.). Comments/additional information: has no prosthetic items MOBILITY (POSITIONING/TRANSFERS) (7a) Roll left and right: Independent Defined as: The ability to roll from lying on back to left and right side, and return to lying on back. (7b) Sit to lying: Independent Defined as: The ability to move from sitting on side of bed to lying flat on the bed. (7c) Lying to sitting on side of bed: Independent Defined as: The ability to move from lying on the back to sitting on the side of the bed with feet flat on the floor and with no back support. (7d) Sit to stand: Independent Defined as: The ability to come to a standing position from sitting in a chair, wheelchair, or on the side of the bed. (7e) Chair/sqw-cf-nswtb transfer: Person does not usually do this activity Defined as: The ability to transfer to and from a bed to a chair (or wheelchair). (7f) Toilet transfer: Independent Defined as: The ability to get on and off a toilet or commode. Comments/additional information: [place] reports he is independent with toilet and chair transfers. Reports needing assistance getting in/out of bed. On medical record review, [place] has occasional unsteady gait and h/o falls but none recent. See PCP Primary Care Collaboration note 06/03/23. There is no indication [place] needs asisstance with mobilty on a regular basis MOBILITY (WALKING, MANUAL WHEELCHAIR, MOTORIZED WHEELCHAIR/SCOOTER) (8) Mobility: Person walks WALKING (9a) Walk 10 feet: Independent Defined as: Once standing, the ability to walk at least 10 feet in a room, corridor, or similar space. (9b) Walk 50 feet with two turns: Independent Defined as: Once standing, the ability to walk at least 50 feet and make two turns. (9c) Walk 150 feet: Independent Defined as: Once standing, the ability to walk at least 150 feet in a corridor or similar space. reports if he's not feeling well, he asks for VA escort to transport him via w/c to appt. Most of the time I lean on [CG] and we hold hands (9d) Walk 10 feet on uneven surfaces: Independent Defined as: The ability to walk 10 feet on uneven or sloping surfaces (indoor or outdoor) such as turf or gravel. (9e) 1 step (curb): Independent Defined as: The ability to go up and down a curb and/or up and down one step. (9f) 4 steps: Independent Defined as: The ability to go up and down four steps with or without a rail. reports there are 2 steps between home and garage - [place] reports he is able to navigate, leans on CG (9g) 12 steps: Independent Defined as: The ability to go up and down 12 steps with or without a rail. [place] reports there is a flight of stairs to home basement which he doesn't typically access (9h) Picking up object: Independent Defined as: The ability to bend/stoop from a standing position to crop picker a small object, such as a spoon, from the floor. (9i) Walk indoors: Independent Defined as: The ability to walk from room to room, around furniture and other obstacles. (9j) Carry something in both hands: Independent Defined as: The ability to carry something in both hands while walking indoors (i.e., several dishes, light laundry basket, tray with food). (9k) Walk for 15 minutes: Independent Defined as: The ability to walk without stopping or resting (i.e., through a department store, supermarket). (9l) Walk across a street: Independent Defined as: The ability to cross a street before light turns red. Comments/additional information: reports history of flashing in his eye, wears different colored glasses, sleeps with light on. Please see CHECK CLERK outpatient note 06/01/24. denies dizziness, falls, MENDOZA Please see also Pharmacy Clinic note 06/01/24: He had a fall a few months ago d/t flashing in his eye that causes him to lose balance. He wears dark glasses to help prevent this from causing falls. VFAI: PART B MEDICATION MANAGEMENT (1a) Does the person take any medication(s)? Yes (1b) Does the person need assistance with medication management? Needs medication set up Comments/additional information: CG sets up medications in pill box and from there takes meds independently SELF-PRESERVATION AND SUPERVISION (2) Does the person have the judgment and physical ability to cope, make appropriate decisions and take action in a changing environment or a potentially harmful situation? Independent [place] is able to use a phone to call 911 if needed in event of emergency. He is ambulatory and able to get out of the house if needed. (3) Is this person at risk of self-neglect? No (4) Person has the following risk factors: Not applicable (5) Is this person at risk of neglect, abuse, or exploitation by another person? No (6) What type of support does the person need in the home to remain safe, such as assistance or supervision with activities that require remembering, decision-making, or judgment? The person can be left alone without anyone checking in. CG reports she is comfortable leaving [place] alone for part of the day but I know I'll be getting phone calls from him throughout the day. She reports her greatest concern is his risk for falls. When she goes out, she sits in recliner behind which is a camera to monitor him. She ensures cell phone water and snack are nearby. (7) What type of support does the person need away from home to remain safe, such as assistance or supervision with activities that require remembering, decision-making, or judgment? The person does not need help going anywhere. does not drive. CG drives him to [employer], waits in waiting room for him Comments/additional information: reports the reason he and CG applied to [facility] is due to his history of falls PROTECTION (8a) Delusions/Hallucinations: Person engages in markedly inappropriate behavior that affects his/her/their daily functioning and social interactions. Behavior characterized by a radical change in personality and a distorted or diminished sense of reality. No reports sometimes I'm sitting around and think I hear something ... but it's not that bad. CG reports for a minute he thinks he sees something then catches himself. (9a) Agitation: Person has a tendency, or would without an intervention, to suddenly or quickly become upset or violent. No and CG acknowledge he gets frustrated because he can't do things he used to do. He calms himself down, prays (10a) Impulsivity: Person has a propensity, or would without an intervention, for sudden or spontaneous decisions or actions. No (11a) Wandering: Person will, or would without an intervention, leave an area or group without telling others or depart from the supervision of others unexpectedly, resulting in increased vulnerability. No Comments/additional information: as above INSTRUCTION (12) Person requires stand-by cueing, supervision, or step by step instructions from a caregiver in order to function in daily life: No (13) Person requires CONTINUOUS stand-by cueing, supervision, or step by step instructions from a caregiver in order to function in daily life: No Comments/additional information: n/a SELF-DIRECTION (14) Can this person identify their own needs? Yes (15) Can this person provide and/or arrange for their health and safety? Yes Comments/additional information: Per this assessment and pertinent medical record review there is nothing to suggest [place] is incapable of self-direction Total time for assessment 45 min /gaetano/ KAYLEE WHITAKER RN Signed: 06/22/2024 13:24 KAYLEE WHITAKER AL [facility] [place] [facility] Jun 22, 2024 07:07 AM CAREGIVER CERTIFIC ATE: LOCAL TITLE: [facility] FUNCTIONAL ASSESSMENT INSTRUMENT STANDARD TITLE: CAREGIVER CERTIFICATE DATE OF NOTE: JUN 22, 2024@07:07 ENTRY DATE: JUN 22, 2024@07:07:09 AUTHOR: KAYLEE WHITAKER EXP COSIGNER: URGENCY: STATUS: COMPLETED [facility] FUNCTIONAL ASSESSMENT INSTRUMENT CONSULT Has ADDENDA FUNCTIONAL ASSESSMENT INSTRUMENT The Program of Comprehensive Assistance for Family Caregivers (PCAFC) provides services and additional benefits to approved and designated Family Caregivers of eligible Veterans or service members who are in need of personal care services for a minimum of six continuous months based on any one of the following: - An inability to perform one or more activities of daily living; - A need for supervision or protection based on symptoms or residuals of neurological or other impairment or injury; or - A need for regular or extensive instruction or supervision without which the ability of the [place] to function in daily life would be seriously impaired. Assessment of the need for personal care services is just one piece of the overall application process. The Functional Assessment Instrument (VFAI) captures the [place] or access services librarian's functional needs, as they relate to the requirements for PCA. The assessment should only be used with Veterans or service members who have applied to or are participating in [facility] and a consult has been placed for this assessment by Caregiver Support Program Staff. The author completing this assessment must be in compliance with all required Caregiver Support Program and [facility] trainings. Method of contact: Telehealth/ [facility] Video Connect Modality of Care: Video Telehealth Patient Contact Details: Best contact number for backup/emergency communication with patient: PATIENT PHONE - Patient Location/Surroundings During Visit: Patient location during visit: [place] [id number] Others present for visit with patient's consent: Name: spouse Katie Patient confirms location is safe and private for visit. Telehealth Disclosure: Visit conducted by synchronous telehealth. Patient verbal consent obtained. Location/emergency number confirmed. Environment surveyed and all participants identified. Virtual conference room locked. VFAI: PART A EATING (1) Eating: Set-up or clean-up assistance Defined as: The ability to use suitable utensils to bring food and/or liquid to the mouth and swallow food and/or liquid once the meal is placed before the person. Comments/additional information: [place]bow reports CG cuts up his meat. CG reports when he has seizures, hand tremors he can't do it GROOMING (2a) Oral hygiene: Set-up or clean-up assistance Defined as: The ability to use suitable items to clean teeth. [Dentures (if applicable): the ability to insert and remove dentures into and from the mouth, and manage denture soaking and rinsing with use of equipment.] Yeimi has upper dentures and natural bottom teeth. CG assists with cleaning dentures and putting on adhesive. She brings case to him and he places dentures in and she cleans. reports he is able to brush his own bottom teeth (2b) Wash upper body: Person does not usually do this activity Defined as: The ability to wash, rinse, and dry the face, hands, chest, and arms while sitting in a chair or bed. Comments/additional information: [place] takes baths BATHING (3) Shower/bathe self: Independent Defined as: The ability to bathe self, including washing, rinsing, and drying self. Does not include transferring in/out of tub/shower. Comments/additional information: has tub/shower combination, grab bars and shower chair. He takes baths while CG remains with him. He reports CG washes his back and sometimes underarms and private area. DRESSING AND UNDRESSING (4a) Upper body dressing: Independent Defined as: The ability to dress and undress above the waist, including fasteners (if applicable). Oxbow picks out his own clothes. He reports hx L shoulder dislocation which makes it hard to put on/take off shirts. CG may assist with bottom buttons. If she's not here I wear the same clothes (4b) Lower body dressing: Supervision or touching assistance Defined as: The ability to dress and undress below the waist, including fasteners; does not include footwear. reports poor balance and history of falls. CG assists with putting on/taking off underwear and pants. Oxbow leans on CG and it's like a dance one foot then the other. (4c) Putting on/taking off footwear: Independent Defined as: The ability to put on and take off socks and shoes, or other footwear that is appropriate for safe mobility, including fasteners (if applicable). Oxbow wears socks and sandals inside the house. He can put on/take off slippers himself. CG assists with socks - reports he used to have a sock suzette which made it easier. Would like replacement Comments/additional information: Filiberto see [facility] Primary Care Collaboration note 06/03/24. [place] has occasional unsteady gait and h/s falls but none recently TOILETING (5) Toileting hygiene: Person requires assistance only sometimes Defined as: The ability to maintain perineal/menstrual hygiene and adjust clothes before and after voiding or having a bowel movement. If managing an ostomy, include wiping the opening but not managing equipment. Comments/additional information: [place] reports urine accidents over the past year and sometimes wears incontinence briefs which he reports CG assists with changing. He reports sometimes needing assistance with hygiene following bowel movement. PROSTHETICS (6) Prosthetics (Use of Assistive Devices): Not applicable - does not use prosthetics or assistive devices Defined as: The ability to adjust special prosthetic or orthopedic appliances. The adjustment of appliances that any person (with or without a disability) would need assistance with should not be scored (for example, supports, belts, lacing at back, etc.). Comments/additional information: [place] has no prosthetic items MOBILITY (POSITIONING/TRANSFERS) (7a) Roll left and right: Independent Defined as: The ability to roll from lying on back to left and right side, and return to lying on back. (7b) Sit to lying: Independent Defined as: The ability to move from sitting on side of bed to lying flat on the bed. (7c) Lying to sitting on side of bed: Independent Defined as: The ability to move from lying on the back to sitting on the side of the bed with feet flat on the floor and with no back support. (7d) Sit to stand: Independent Defined as: The ability to come to a standing position from sitting in a chair, wheelchair, or on the side of the bed. (7e) Chair/lfj-xk-yizap transfer: Person does not usually do this activity Defined as: The ability to transfer to and from a bed to a chair (or wheelchair). (7f) Toilet transfer: Independent Defined as: The ability to get on and off a toilet or commode. Comments/additional information: reports he is independent with toilet and chair transfers. Reports needing assistance getting in/out of bed. On medical record review, [place] has occasional unsteady gait and h/o falls but none recent. See PCP Primary Care Collaboration note 06/03/23. There is no indication needs asisstance with mobilty on a regular basis MOBILITY (WALKING, MANUAL WHEELCHAIR, MOTORIZED WHEELCHAIR/SCOOTER) (8) Mobility: Person walks WALKING (9a) Walk 10 feet: Independent Defined as: Once standing, the ability to walk at least 10 feet in a room, corridor, or similar space. (9b) Walk 50 feet with two turns: Independent Defined as: Once standing, the ability to walk at least 50 feet and make two turns. (9c) Walk 150 feet: Independent Defined as: Once standing, the ability to walk at least 150 feet in a corridor or similar space. reports if he's not feeling well, he asks for [facility] escort to transport [facility] via w[facility]c to [facility]. Most of the time I lean on [CG] and we hold hands (9d) Walk 10 feet on uneven surfaces: Independent Defined as: The ability to walk 10 feet on uneven or sloping surfaces (indoor or outdoor) such as turf or gravel. (9e) 1 step (curb): Independent Defined as: The ability to go up and down a curb and/or up and down one step. (9f) 4 steps: Independent Defined as: The ability to go up and down four steps with or without a rail. Oxbow reports there are 2 steps between home and garage - reports he is able to navigate, leans on CG (9g) 12 steps: Independent Defined as: The ability to go up and down 12 steps with or without a rail. Oxbow reports there is a flight of stairs to home basement which he doesn't typically access (9h) Picking up object: Independent Defined as: The ability to bend/stoop from a standing position to crop picker a small object, such as a spoon, from the floor. (9i) Walk indoors: Independent Defined as: The ability to walk from room to room, around furniture and other obstacles. (9j) Carry something in both hands: Independent Defined as: The ability to carry something in both hands while walking indoors (i.e., several dishes, light laundry basket, tray with food). (9k) Walk for 15 minutes: Independent Defined as: The ability to walk without stopping or resting (i.e., through a department store, supermarket). (9l) Walk across a street: Independent Defined as: The ability to cross a street before light turns red. Comments/additional information: reports history of flashing in his eye, wears different colored glasses, sleeps with light on. Please see CHECK CLERK outpatient note 06/01/24. denies dizziness, falls, MENDOZA Please see also Pharmacy Clinic note 06/01/24: He had a fall a few months ago d/t flashing in his eye that causes him to lose balance. He wears dark glasses to help prevent this from causing falls. VFAI: PART B MEDICATION MANAGEMENT (1a) Does the person take any medication(s)? Yes (1b) Does the person need assistance with medication management? Needs medication set up Comments/additional information: sets up medications in pill box and from there [place] takes meds independently SELF-PRESERVATION AND SUPERVISION (2) Does the person have the judgment and physical ability to cope, make appropriate decisions and take action in a changing environment or a potentially harmful situation? Independent is able to use a phone to call 911 if needed in event of emergency. He is ambulatory and able to get out of the house if needed. (3) Is this person at risk of self-neglect? No (4) Person has the following risk factors: Not applicable (5) Is this person at risk of neglect, abuse, or exploitation by another person? No (6) What type of support does the person need in the home to remain safe, such as assistance or supervision with activities that require remembering, decision-making, or judgment? The person can be left alone without anyone checking in. CG reports she is comfortable leaving alone for part of the day but I know I'll be getting phone calls from him throughout the day. She reports her greatest concern is his risk for falls. When she goes out, she sits Yeimi in recliner behind which is a camera to monitor him. She ensures cell phone water and snack are nearby. (7) What type of support does the person need away from home to remain safe, such as assistance or supervision with activities that require remembering, decision-making, or judgment? The person does not need help going anywhere. does not drive. CG drives him to [facility], waits in waiting room for him Comments/additional information: [place] reports the reason he and CG applied to [facility] is due to his history of falls PROTECTION (8a) Delusions/Hallucinations: Person engages in markedly inappropriate behavior that affects his/her/their daily functioning and social interactions. Behavior characterized by a radical change in personality and a distorted or diminished sense of reality. No [place] reports sometimes I'm sitting around and think I hear something ... but it's not that bad. CG reports for a minute he thinks he sees something then catches himself. (9a) Agitation: Person has a tendency, or would without an intervention, to suddenly or quickly become upset or violent. No and CG acknowledge he gets frustrated because he can't do things he used to do. He calms himself down, prays (10a) Impulsivity: Person has a propensity, or would without an intervention, for sudden or spontaneous decisions or actions. No (11a) Wandering: Person will, or would without an intervention, leave an area or group without telling others or depart from the supervision of others unexpectedly, resulting in increased vulnerability. No Comments/additional information: as above INSTRUCTION (12) Person requires stand-by cueing, supervision, or step by step instructions from a caregiver in order to function in daily life: No (13) Person requires CONTINUOUS stand-by cueing, supervision, or step by step instructions from a caregiver in order to function in daily life: No Comments/additional information: n/a SELF-DIRECTION (14) Can this person identify their own needs? Yes (15) Can this person provide and/or arrange for their health and safety? Yes Comments/additional information: Per this assessment and pertinent medical record review there is nothing to suggest is incapable of self-direction Total time for assessment 45 min /gaetano/ KAYLEE WHITAKER RN Signed: 06/22/2024 13:24 06/23/2024 ADDENDUM STATUS: COMPLETED [place] functional assessment conducted as part of the application process for [facility] Program of Comprehensive Assistance for Family Caregivers. During assessment it was noted that CG assists with putting on socks - Oxbow reports he used to have a sock suzette which made it easier and would like replacement if PCP in agreement. /es/ KAYLEE WHITAKER RN Signed: 06/23/2024 12:23 Receipt Acknowledged By: * AWAITING SIGNATURE * ELIZABET ROBINS * AWAITING SIGNATURE * DEBBIE GORMAN [facility]EN [facility]
--- OUTSIDE RECORDS SUMMARY | 2024-11-01 08:03 | XMS_ITS | Encounter Summary ---
Author Name [facility] [place] [facility] [place] Address [address] [place] [address] Care Team Providers Care Secondary Spanish Teacher Name Role Phone ELIZABET ROBINS Primary [...] [facility] CE ORGANIZ [facility] AC Apr 18, 2018 [id number] WILLIS,MAR JUDITH SPOUSE ANTHEM BCBS OF [place] (BLUECARD) [facility] ORGANIZ I[facility]RISTEN [facility] Apr 18, 2018 [id number] WILLIS,MAR JUDITH SPOUSE BCBS [facility] CE ORGANIZ [facility] SHARE ACTIV E Apr 18, 2018 [id number] [phone] WILLIS,MAR JUDITH SPOUSE BCBS OF [facility] CE ORGANIZ [facility] Apr 18, 2018 [phone] WILLIS,MAR JUDITH PATIENT BCBS OF [facility] CE ORGANIZ BRENDA MCCABE [facility] Apr 18, 2018 [id number] WILLIS,MAR JUDITH SPOUSE BCBS OF [place] PREFERRED PROVIDER ORGANIZAT ION (PPO) BRENDA MCCABE [facility] AC Apr 18, 2018 [id number] WILLIS,MAR JUDITH SPOUSE BCBS OF [facility] CE ORGANIZ BRENDA MCCABE [facility] ACT Apr 18, 2018 [id number] WILLIS,MAR JUDITH SPOUSE BCBS OF [facility] CE ORGANIZ BRENDA MCCABE [facility] AC Apr 18, 2018 [id number] WILLIS,MAR JUDITH SPOUSE [place] PRESCRIPT ION RX22M A Oct 19, 2022 RX22MA [id number] WILLIS,LAVELLE AEL PATIENT [place]ARK PRESCRIPT ION RX22M B Oct 19, 2022 RX22MB [id number] WILLIS,LAVELLE AEL PATIENT [place] PRESCRIPT ION RX22M B Oct 19, 2022 RX22MB [id number] WILLIS,MAR JUDITH SPOUSE [place] PRESCRIPT ION BRENDA MCCABE [facility] AC Oct 19, 2022 RX22MB [id number] WILLIS,LAVELLE AEL SPOUSE [place] PRESCRIPT ION RX Oct 19, 2022 [id number] WILLIS,MAR JUDITH SPOUSE [place] PRESCRIPT ION BCBS OF [place] Oct 19, 2022 [id number] [phone] WILLIS, SPOUSE [place] ([id number]) PRESCRIPT ION BCBS OF [place] Oct 19, 2022 [id number] WILLIS,MAR JUDITH SPOUSE [place] BC[place] ([facility] CE ORGANIZ [facility] AC Apr 18, 2018 [id number] [id number] WILLIS,EDILBERTO SOTELOZA SPOUSE [employer] PRESCRIPT ION [place]BS [place] 2018 L4TA [id number] WILLIS,EDILBERTO SOTELOZA SPOUSE [employer] ([id number]) PRESCRIPT ION Apr 18, 2018 L4TA [id number] WILLIS,EDILBERTO SOTELOZA SPOUSE [employer] ([id number]) PRESCRIPT ION L4TA* Apr 18, 2020 L4TA [id number] WILLIS,EDILBERTO PALAFOXA SPOUSE [employer] ([id number]) PRESCRIPT ION L4TA* Apr 18, 2018 L4TA [id number] WILLIS,EDILBERTO PALAFOXA SPOUSE [employer] ([id number]) PRESCRIPT ION L4TA Apr 18, 2018 L4TA [id number] WILLIS,EDILBERTO SOTELOZA SPOUSE [employer] ([id number]) PRESCRIPT ION Apr 18, 2018 L4TA [id number] 32 WILLISEDILBERTO SPOUSE [employer] ([id number]) PRESCRIPT ION Apr 18, 2018 L4TA [id number] WILLIS,EDILBERTO WONG SPOUSE [employer]-MINOR BROGATION PRESCRIPT ION BCBS OF [place] Apr 18, 2020 L4TA [id number] WILLIS,EDILBERTO WONG SPOUSE [facility] CE ORGANIZAT ION W/OUT OF NETWORK BENEFITS IATRISTEN [facility] ACT Apr 18, 2018 [id number] WILLISEDILBERTO SPOUSE [place] BCBS [facility] (BLUECARD) [facility] CE ORGANIZAT ION [facility] AC Apr 18, 2018 [id number] WILLIS,EDILBERTO WONG SPOUSE MEDICARE (WNR) MEDICARE (M) PART A Mar 19, 1990 PART A [id number] [phone] LAVELLE PDERO PATIENT MEDICARE (WNR) MEDICARE (M) PART A Mar 19, 1990 PART A [id number] WILLIS,LAVELLE AEL PATIENT MEDICARE (WNR) MEDICARE (M) PART A Mar 19, 1990 PART A [id number] WILLIS,LAVELLE AEL PATIENT MEDICARE (WNR) MEDICARE (M) PART A Mar 19, 1990 PART A [id number] [phone] WILLIS,LAVELLE AEL PATIENT MEDICARE (WNR) MEDICARE (M) PART A Mar 19, 1990 PART A [id number] WILLIS,LAVELLE AEL PATIENT MEDICARE (WNR) MEDICARE () PART A Mar 19, 1990 PART A [id number] WILLIS,LAVELLE AEL PATIENT MEDICARE (WNR) MEDICARE (M) PART A Mar 19, 1990 PART A [id number] WILLIS,LAVELLE AEL PATIENT MEDICARE (WNR) MEDICARE () PART A Mar 19, 1990 PART A [id number] [phone] [id number] WILLIS,LAVELLE AEL PATIENT MEDICARE (WNR) MEDICARE (M) PART A Mar 19, 1990 PART A [id number] WILLIS,LAVELLE AEL PATIENT MEDICARE (WNR) MEDICARE (M) PART A Mar 19, 1990 PART A [id number] [phone] [id number] WILLIS,LAVELLE AEL PATIENT MEDICARE (WNR) MEDICARE () PART A Mar 19, 1990 PART A [id number] [phone] WILLIS,LAVELLE AEL PATIENT Selected Encounter This section includes the information on record at [place] for the Encounter. Date/Time Encounter Type Encounter Description Reason Provider Source Jun 27, 2024 10:10 AM HC PRO PHONE CALL 11-20 MIN TELEPHONE PRIMARY CARE ICD-10-CM Z71.9 Counseling, unspecified DEREK GARCIA SA [employer] Encounter Template Text not used by [place] Assessments - Encounter Diagnoses This section includes the primary and secondary diagnoses documented for the Encounter. Date/Time Primary/Secondary Diagnosis Diagnosis Name Provider Source Jun 27, 2024 10:10 AM PRIMARY Counseling, unspecified DEREK GARCIA [facility] [place] [facility] Plan of Treatment: Future Appointments (+ 6 months) and Future Tests (+/- 45 days) The Plan of Treatment section includes future care activities for the patient from all [place] [facility]. This section includes future appointments and future orders which are active, pending or scheduled. Future Appointments This section includes appointments that were scheduled to occur 6 months from the date of the Encounter, up to a maximum of 20 appointments. The data comes from all [facility]. Appointment Date/Time Appointment Type Appointme nt Facility Name Jun 28, 2024 11:30 AM AMBULATORY [place]ICINE [place] [facility] [facility] Jul 08, 2024 10:30 AM AM[place]UL[place]ORY [place]ICINE [place] [facility] Jul 13, 2024 09:30 AM [place]UL[place]ORY [place]ICINE [place] [facility] Aug 12, 2024 09:30 AM AMBUL[place]ORY MEDICINE [place] [facility] Aug 22, 2024 09:00 AM AMBULATORY MEDICINE [place] [facility] Sep 21, 2024 09:00 AM AM[place]ULATORY [place]ICINE [place] [facility] Sep 21, 2024 10:00 AM AM[place]UL[place]ORY [place]ICINE [place] [facility] Nov 28, 2024 09:30 AM AMBULATORY MEDICINE [place] [facility] Dec 02, 2024 08:30 AM AMBULATORY MEDICINE [facility] N[facility] [place] [facility] Active, Pending, and Scheduled Orders This section includes a listing of several types of active, pending, and scheduled orders, including clinic medications orders, diagnostic test orders, procedure orders and consult orders; where the start date of the order is 45 days before the date of the Encounter or 45 days after the date of theEncounter. The data comes from all [facility]. Test Date/Time Test Type Test Details Facility Name Jul 13, 2024 09:58 AM Consult Order PODIATRY/N HM OUTPT Cons [facility] Lab Results: +/- 30 days of the encounter This section includes the Chemistry and Hematology Lab Results on record with [place] for the patient. Radiology Reports and Pathology Reports are provided separately, in subsequent sections. Lab Results This section contains the Chemistry/Hematology Results that were resulted 30 days before or 30 daysafter the date of the Encounter. Date/Time Source Result Type Result - Unit Interpretation Reference Range Comment Jun 01, 2024 12:25 PM [facility] MICROALBUMIN CREATININE RATIO PANEL Specimen Type: URINE No comment entered. Ordering Provider: LINDA PERSON Report Released Date/Time: Jun 01, 2024 11:53 AM Reporting [facility]: [facility] [address] Performing Lab: [address] [address] MICROALBUMIN/C REATININE RATIO 10.8 mg/g 0-29.9 MICROALBUMIN,Q UANTITATIVE 1.1 mg/dL RR UNAVAIL CREATININE URINE 101.63 mg/dL Jun 01, 2024 10:38 AM [facility] HEMOGLOBIN A1C PANEL Specimen Type: [...] May 30, 2024 10:29 AM Reporting Lab: [address] [address] Performing Lab: [address] [address] HEMOGLOBIN A1C 5.8 H 4.0-5.6 Jun 01, 2024 10:38 AM [facility] BASIC METABOLIC PANEL (non-fasting) Specimen Type: SERUM No comment entered. Ordering Provider: LINDA PERSON Report Released Date/Time: May 30, 2024 10:29 AM Reporting Lab: [address] [address] Performing Lab: [address] [place] [address] UREA NITROGEN 13 mg/dL 7-25 GLUCOSE 115 mg/dL H 65-100 SODIUM 140 mmol/L 135-145 POTASSIUM 4.3 mmol/L 3.5-5.0 CHLORIDE 107 mmol/L 100-110 CO2 21 meq/L 20-30 CREATININE, Serum 0.84 mg/dL 0.50-1.40 eGFR(CKD-EPI 2020) >90 mL/min >60 Jun 01, 2024 10:38 AM [facility] LIPID PANEL, NON FASTING Specimen Type: SERUM No comment entered. Ordering Provider: LINDA PERSON Report Released Date/Time: Jun 01, 2024 10:12 AM Reporting Lab: [address] [address] Performing Lab: [address] [address] CHOLESTEROL 126 mg/dL TRIGLYCERIDE 114 mg/dL 0-150 [...] took place. Date/Time Current Smoking Status Comment [facility] Nov 27, 2023 11:00 AM VA-TOBACCO FORMER USER [facility] Tobacco Use History This section includes a history of the smoking, or tobacco-related health factors, that were collected on or before the date of the Encounter. The data comes from the [place] facility where the Encounter took place. Date/Time Smoking Status/Tobac co Use Comment Facility Nov 27, 2023 11:00 AM VA-TOBACCO QUIT 15 YRS OR MORE [facility] Dec 02, 2022 08:00 AM VA-TOBACCO FORMER USER [facility] Dec 02, 2022 08:00 AM VA-TOBACCO QUIT 15 YRS OR MORE [facility] Nov 05, 2021 10:30 AM VA-TOBACCO FORMER USER [facility] Nov 05, 2021 10:30 AM VA-TOBACCO QUIT 1 TO < 5 YRS [facility] Sep 14, 2020 02:00 PM VA-TOBACCO FORMER USER [facility] Sep 14, 2020 02:00 PM VA-TOBACCO QUIT 5 TO < 15 YRS [facility] Jan 22, 2018 03:40 PM QUIT TOBACCO USE > 7 YEARS AGO [facility] Jun 04, 2016 02:01 PM CURRENT SMOKER been smoking pass 20 yrs [facility] Jun 04, 2016 02:01 PM V1-PT DECLINES REF TO TOBACCO CESS PRGM [facility] Jun 04, 2016 02:01 PM V1-PT THINKING ABOUT QUIT TOBACCO USE [facility] Jul 18, 2014 03:31 PM V1-PT DECLINES REF TO TOBACCO CESS PRGM [facility] Jul 18, 2014 03:31 PM V1-PT DECLINES TOBACCO CESSATION MEDS [facility] Jul 18, 2014 03:31 PM V1-PT NOT INTERESTED IN QUIT TOBACCO USE [facility] Jan 09, 2014 10:43 AM CURRENT SMOKER pt smokes 1 pk of cigarettes per day. [facility] Jan 09, 2014 10:43 AM V1-PT THINKING ABOUT QUIT TOBACCO USE [facility] Aug 28, 2003 10:47 AM CURRENT SMOKER one pack q 6 days - he has cut down from 3 PPD. He is in the process of quitting [facility] Encounter Notes: All associated encounter notes This section contains the clinical notes associated to the Encounter. Date/Time Encounter Note(s) Provider Source Jun 27, 2024 10:27 AM ADDENDUM: LOCAL TITLE: Addendum STANDARD TITLE: ADDENDUM DATE OF NOTE: JUN 27, 2024@10:27:13 ENTRY DATE: JUN 27, 2024@10:27:14 AUTHOR: MARYJO GARCIA EXP COSIGNER: URGENCY: STATUS: COMPLETED Adding CHAU /gaetano/ MARYJO GARCIA REGISTERED NURSE Signed: 06/27/2024 10:27 Receipt Acknowledged By: 06/27/2024 10:38 /jerry LUCAS Advanced [employer] Mosser ========= --- Original Document --- 06/27/24 TELEPHONE NOTE/PRIMARY CARE: Rn returned call reports seizure, chest pain and loss of vision and was seen at [facility]. Reports signed paperwork for release of information for [facility]. Rn will request records as well. Vet instructed to bring records with him to PCP appointment /gaetano/ MARYJO GARCIA REGISTERED NURSE Signed: 06/27/2024 10:26 06/27/2024 ADDENDUM STATUS: COMPLETED Appt scheduled for 06/28 @ 11:30. /jerry LUCAS [employer]er Signed: 06/27/2024 10:38 MARYJO GARCIA [place] [facility] [place] [facility] Jun 27, 2024 10:14 AM PRIMARY CARE TELEP MANAS ENCOUNTER NOTE: LOCAL TITLE: TELEPHONE NOTE/PRIMARY CARE STANDARD TITLE: PRIMARY CARE TELEPHONE ENCOUNTER NOTE DATE OF NOTE: JUN 27, 2024@10:14 ENTRY DATE: JUN 27, 2024@10:14:56 AUTHOR: MARYJO GARCIA EXP COSIGNER: URGENCY: STATUS: COMPLETED TELEPHONE NOTE/PRIMARY CARE Has ADDENDA Rn returned call reports seizure, chest pain and loss of vision and was seen at [facility]. Reports signed paperwork for release of information for [facility]. Rn will request records as well. Vet instructed to bring records with him to PCP appointment /gaetano/ MARYJO GARCIA REGISTERED NURSE Signed: 06/27/2024 10:26 06/27/2024 ADDENDUM STATUS: COMPLETED Adding CHAU /jerry GARCIA REGISTERED NURSE Signed: 06/27/2024 10:27 Receipt Acknowledged By: 06/27/2024 10:38 /gaetano/ THANH LUCAS [employer]er 06/27/2024 ADDENDUM STATUS: COMPLETED Appt scheduled for 06/28 @ 11:30. /gaetano/ THANH LUCAS [employer]er Signed: 06/27/2024 10:38 MARYJO GARCIA [facility]
--- OUTSIDE RECORDS SUMMARY | 2024-11-01 08:04 | XMS_ITS ---
Author Name [facility] [place] [facility] [place] Address [address] [place] [address] Care Team Providers Care Accounts Payable Specialist Name Role Phone ELIZABET ROBINS Primary Care [...] Paul's Name Patient's Relationship to Policy Paul [facility] CE ORGANIZ [facility] AC Apr 18, 2018 [id number] WILLIS,MAR JUDITH SPOUSE ANTHEM BCBS OF [place] (BLUECARD) [facility] [place] CE ORGANIZ [facility] Apr 18, 2018 [id number] [phone] WILLIS,MAR JUDITH SPOUSE BCBS [facility] CE ORGANIZ [facility] SHARE ACTIV E Apr 18, 2018 [id number] WILLIS,MAR JUDITH SPOUSE BCBS OF [facility] CE ORGANIZ [facility] Apr 18, 2018 [id number] WILLIS,MAR JUDITH PATIENT BCBS OF [facility] CE ORGANIZ BRENDA MCCABE [facility] Apr 18, 2018 [id number] WILLIS,MAR JUDITH SPOUSE [place] OF [place] PREFERRED PROVIDER ORGANIZAT ION (PPO) BRENDA MCCABE [facility] AC Apr 18, 2018 [id number] WILLIS,MAR JUDITH SPOUSE BCBS OF [facility] CE ORGANIZ BRENDA MCCABE [facility] ACT Apr 18, 2018 [id number] WILLIS,MAR JUDITH SPOUSE BCBS OF [facility] CE ORGANIZ BRENDA MCCABE [facility] AC Apr 18, 2018 [id number] [phone] WILLIS,MAR JUDITH SPOUSE [place] PRESCRIPT ION RX22M A Oct 19, 2022 [id number] WILLIS,LAVELLE AEL PATIENT [place] PRESCRIPT ION RX22M B Oct 19, 2022 [id number] WILLIS,LAVELLE AEL PATIENT [place] PRESCRIPT ION RX22M B Oct 19, 2022 [id number] WILLIS,MAR JUDITH SPOUSE [place] PRESCRIPT ION BRENDA MCCABE [facility] AC Oct 19, 2022 [id number] WILLIS,LAVELLE AEL SPOUSE [place] PRESCRIPT ION RX Oct 19, 2022 [id number] WILLIS,MAR JUDITH SPOUSE [place] PRESCRIPT ION [place] OF [place] Oct 19, 2022 [id number] WILLIS, SPOUSE [place] ([id number]) PRESCRIPT I[place] Oct 19, 2022 [id number] WILLIS,MAR JUDITH SPOUSE [place] BC[place] ([facility] CE ORGANIZ MIIA [facility] AC Apr 18, 2018 [id number] WILLIS,EDILBERTO SOTELOZA SPOUSE [employer] [place] PRESCRIPT I[place] 2018 L4TA [id number] WILLIS,EDILBERTO SOTELOZA SPOUSE [employer] ([id number]) PRESCRIPT ION Apr 18, 2018 L4TA [id number] WILLIS,EDILBERTO SOTELOZA SPOUSE [employer] ([id number]) PRESCRIPT ION L4TA* Apr 18, 2020 L4TA [id number] WILLIS,EDILBERTO PALAFOXA SPOUSE [employer] ([id number]) PRESCRIPT ION L4TA* Apr 18, 2018 L4TA [id number] WILLIS,EDILBERTO PALAFOXA SPOUSE [employer] ([id number]) PRESCRIPT ION L4TA Apr 18, 2018 L4TA [id number] WILLIS,EDILBERTO SOTELOZA SPOUSE [employer] ([id number]) PRESCRIPT ION Apr 18, 2018 L4TA [id number] 32 WILLISEDILBERTO SPOUSE [employer] ([id number]) PRESCRIPT ION Apr 18, 2018 L4TA [id number] WILLIS,EDILBERTO WONG SPOUSE EXPRESS SCRIPTS-MINOR BROGATION PRESCRIPT ION BC[place] OF [place] Apr 18, 2020 L4TA [id number] WILLIS,EDILBERTO WONG SPOUSE [facility] CE ORGANIZAT ION W/OUT OF NETWORK BENEFITS [facility] ACT Apr 18, 2018 [id number] [phone] WILLISEDILBERTO SPOUSE [place] BCBS [facility] (BLUECARD) [facility] CE ORGANIZAT ION [facility] AC Apr 18, 2018 [id number] [phone] WILLIS,EDILBERTO WONG SPOUSE MEDICARE (WNR) MEDICARE (M) PART A Mar 19, 1990 PART A [id number] LAVELLE PEDRO PATIENT MEDICARE (WNR) MEDICARE (M) PART A Mar 19, 1990 PART A [id number] [phone] WILLIS,LAVELLE AEL PATIENT MEDICARE (WNR) MEDICARE () PART A Mar 19, 1990 PART A [id number] [phone] WILLIS,LAVELLE AEL PATIENT MEDICARE (WNR) MEDICARE (M) PART A Mar 19, 1990 PART A [id number] WILLIS,LAVELLE AEL PATIENT MEDICARE (WNR) MEDICARE () PART A Mar 19, 1990 PART A [id number] [phone] WILLIS,LAVELLE AEL PATIENT MEDICARE (WNR) MEDICARE () PART A Mar 19, 1990 PART A [id number] WILLIS,LAVELLE AEL PATIENT MEDICARE (WNR) MEDICARE () PART A Mar 19, 1990 PART A [id number] WILLIS,LAVELLE AEL PATIENT MEDICARE (WNR) MEDICARE () PART A Mar 19, 1990 PART A [id number] WILLIS,LAVELLE AEL PATIENT MEDICARE (WNR) MEDICARE () PART A Mar 19, 1990 PART A [id number] [phone] WILLIS,LAVELLE AEL PATIENT MEDICARE (WNR) MEDICARE (M) PART A Mar 19, 1990 PART A [id number] WILLIS,LAVELLE AEL PATIENT MEDICARE (WNR) MEDICARE () PART A Mar 19, 1990 PART A [id number] [phone] WILLIS,LAVELLE AEL PATIENT Selected Encounter This section includes the information on record at [place] for the Encounter. Date/Time Encounter Type Encounter Description Reason Provider Source Jun 28, 2024 11:30 AM OFFICE O/P EST MOD 30 MIN PRIMARY CARE/MEDICINE ICD-10-CM G40.89 Other seizures ELIZABET ROBINS IHE Encounter Template Text not used by [place] Assessments - Encounter Diagnoses This section includes the primary and secondary diagnoses documented for the Encounter. Date/Time Primary/Secondary Diagnosis Diagnosis Name Provider Source Jun 28, 2024 12:35 PM PRIMARY Other seizures [facility] ROBINS [facility] [place] [facility] Plan of Treatment: Future Appointments (+ 6 months) and Future Tests (+/- 45 days) The Plan of Treatment section includes future care activities for the patient from all [place] [facility]. This section includes future appointments and future orders which are active, pending or scheduled. Future Appointments This section includes appointments that were scheduled to occur 6 months from the date of the Encounter, up to a maximum of 20 appointments. The data comes from all [facility]. Appointment Date/Time Appointment Type Appointme nt Facility Name Jul 08, 2024 10:30 AM AMBULATORY - MEDICINE [place] [facility] Jul 13, 2024 09:30 AM AMBULATORY MEDICINE [place] [facility] [place] [facility] Aug 12, 2024 09:30 AM AMBULATORY MEDICINE [place] [facility] [place] [facility] Aug 22, 2024 09:00 AM AMBULATORY MEDICINE [facility] Sep 21, 2024 09:00 AM AMBULATORY MEDICINE [facility] Sep 21, 2024 10:00 AM AMBULATORY MEDICINE [facility] [place] [facility] Nov 28, 2024 09:30 AM AMBULATORY MEDICINE [facility] [place] [facility] Dec 02, 2024 08:30 AM AMBULATORY MEDICINE [facility] Active, Pending, and Scheduled Orders This section includes a listing of several types of active, pending, and scheduled orders, including clinic medications orders, diagnostic test orders, procedure orders and consult orders; where the start date of the order is 45 days before the date of the Encounter or 45 days after the date of theEncounter. The data comes from all [facility]. Test Date/Time Test Type Test Details Facility Name Jul 13, 2024 09:58 AM Consult Order PODIATRY/N HM OUTPT Cons Aerodynamics Teacher's Choice [facility] Lab Results: +/- 30 days of the encounter This section includes the Chemistry and Hematology Lab Results on record with [place] for the patient. Radiology Reports and Pathology Reports are provided separately, in subsequent sections. Lab Results This section contains the Chemistry/Hematology Results that were resulted 30 days before or 30 daysafter the date of the Encounter. Date/Time Source Result Type Result - Unit Interpretation Reference Range Comment Jun 01, 2024 12:25 PM [facility] MICROALBUMIN CREATININE RATIO PANEL Specimen Type: URINE No comment entered. Ordering Provider: LINDA PERSON Report Released Date/Time: Jun 01, 2024 11:53 AM Reporting Lab: [facility] [address] [address] Performing Lab: [facility] [address] [address] MICROALBUMIN/C REATININE RATIO 10.8 mg/g 0-29.9 MICROALBUMIN,Q UANTITATIVE 1.1 mg/dL RR UNAVAIL CREATININE URINE 101.63 mg/dL Jun 01, 2024 10:38 AM [facility] HEMOGLOBIN A1C PANEL Specimen Type: BLOOD [...] May 30, 2024 10:29 AM Reporting Lab: [facility] [address] [address] Performing Lab: [address] [address] HEMOGLOBIN A1C 5.8 H 4.0-5.6 Jun 01, 2024 10:38 AM [facility] BASIC METABOLIC PANEL (non-fasting) Specimen Type: SERUM No comment entered. Ordering Provider: LINDA PERSON Report Released Date/Time: May 30, 2024 10:29 AM Reporting Lab: [facility] [address] [address] Performing Lab: [address] [address] UREA NITROGEN 13 mg/dL 7-25 GLUCOSE 115 mg/dL H 65-100 SODIUM 140 mmol/L 135-145 POTASSIUM 4.3 mmol/L 3.5-5.0 CHLORIDE 107 mmol/L 100-110 CO2 21 meq/L 20-30 CREATININE, Serum 0.84 mg/dL 0.50-1.40 eGFR(CKD-EPI 2020) >90 mL/min >60 Jun 01, 2024 10:38 AM [facility] LIPID PANEL, NON FASTING Specimen Type: SERUM No comment entered. Ordering Provider: LINDA PERSON Report Released Date/Time: Jun 01, 2024 10:12 AM Reporting Lab: [address] [address] Performing Lab: [address] [address] CHOLESTEROL 126 mg/dL TRIGLYCERIDE 114 mg/dL 0-150 LDL calculated 60 mg/dL 0-129 CHOL/HDL 2.9 HDL CHOLESTEROL 43 mg/dL 40-60 Vital Signs: All taken on the encounter date This section contains inpatient and outpatient Vital Signs collected on the date of the Encounter. Date/Time Temperature Pulse Blood Pressure Respiratory Rate SP02 Pain Height Weight Body Mass Index Source Jun 28, 2024 11:41 AM 97.8 90 126/87 16 95 10 66 214 35 [facility] Social History: Smoking Status (Most current) and Tobacco Use (All prior to encounter date) This section includes the most current, and the historical, smoking and tobacco- related health factors from the [place] facility where the Encounter took place. Current Smoking Status This section includes the most current smoking, or tobacco-related health factor, from the [place] facility where the Encounter took place. Date/Time Current Smoking Status Comment [facility] Nov 27, 2023 11:00 AM VA-TOBACCO FORMER USER [facility] Tobacco Use History This section includes a history of the smoking, or tobacco-related health factors, that were collected on or before the date of the Encounter. The data comes from the [place] facility where the Encounter took place. Date/Time Smoking Status/Tobac co Use Comment Facility Nov 27, 2023 11:00 AM [place]-TOBACCO QUIT 15 YRS OR MORE [facility] Dec 02, 2022 08:00 AM VA-TOBACCO [facility] Dec 02, 2022 08:00 AM VA-TOBACCO QUIT 15 YRS OR MORE [facility] Nov 05, 2021 10:30 AM VA-TOBACCO FORMER USER [facility] Nov 05, 2021 10:30 AM VA-TOBACCO QUIT 1 TO < 5 YRS [facility] Sep 14, 2020 02:00 PM VA-TOBACCO FORMER USER [facility] Sep 14, 2020 02:00 PM VA-TOBACCO QUIT 5 TO < 15 YRS [facility] Jan 22, 2018 03:40 PM QUIT TOBACCO USE > 7 YEARS AGO [facility] Jun 04, 2016 02:01 PM CURRENT SMOKER been smoking pass 20 yrs [facility] Jun 04, 2016 02:01 PM V1-PT DECLINES REF TO TOBACCO CESS [facility] Jun 04, 2016 02:01 PM V1-PT THINKING ABOUT QUIT TOBACCO USE [facility] Jul 18, 2014 03:31 PM V1-PT DECLINES REF TO TOBACCO CESS [facility] Jul 18, 2014 03:31 PM V1-PT DECLINES TOBACCO CESSATION [facility] Jul 18, 2014 03:31 PM V1-PT NOT INTERESTED IN QUIT TOBACCO USE [facility] [place] [facility] Jan 09, 2014 10:43 AM CURRENT SMOKER pt smokes 1 pk of cigarettes per day. [facility] Jan 09, 2014 10:43 AM V1-PT THINKING ABOUT QUIT TOBACCO USE [facility] Aug 28, 2003 10:47 AM CURRENT SMOKER one pack q 6 days - he has cut down from 3 PPD. He is in the process of quitting [facility] Encounter Notes: All associated encounter notes This section contains the clinical notes associated to the Encounter. Date/Time Encounter Note(s) Provider Source Jun 28, 2024 12:35 PM PRIMARY CARE NOTE: LOCAL TITLE: CHART REVIEW STANDARD TITLE: PRIMARY CARE NOTE DATE OF NOTE: JUN 28, 2024@12:35 ENTRY DATE: JUN 28, 2024@12:35:31 AUTHOR: ELIZABET ROBINS EXP COSIGNER: URGENCY: STATUS: COMPLETED CHART REVIEW Has ADDENDA LISSETT vazquez was sent to ER for SZ activity /gaetano/ CIERRA GREGORY Nurse Practitioner Signed: 06/28/2024 12:35 Receipt Acknowledged By: 06/29/2024 14:37 /gaetano/ Melonie RUFF,RN,[facility] TRANSFER/TRAVELING COORDINATOR 06/28/2024 ADDENDUM STATUS: COMPLETED [facility] ER is there now /gaetano/ CIERRA GREGORY Nurse Practitioner Signed: 06/28/2024 12:35 ELIZABET ROBINS [facility] Jun 28, 2024 12:11 PM NURSING NOTE: LOCAL TITLE: PRIMARY CARE NURSE NOTE STANDARD TITLE: NURSING NOTE DATE OF NOTE: JUN 28, 2024@12:11 ENTRY DATE: JUN 28, 2024@12:11:30 AUTHOR: MARYJO GARCIA EXP COSIGNER: URGENCY: STATUS: COMPLETED CHAYA PEDRO is a 68 yo MALE who is being sent to the Emergency Department for assessment and care. This has been authorized by ELIZABET ROBINS Pt. has a history of: Active problems - Computerized Problem List is [...] prostate cancer 20. Schizoaffective disorder (SNOMED CT 24470550) 21. Alcohol dependence (SNOMED CT 29013982) 22. Periodontal Disease NEC 23. GERD 24. Facial paraesthesia 25. REFRACTION DISORDER NOS Active Outpatient Medications [...] TAKE 1 HOUR PRIOR TO SEXUAL ACTIVITY Pending Outpatient Medications Status 1) DICLOFENAC NA 75MG EC TAB TAKE ONE TABLET BY MOUTH PENDING TWICE DAILY NEEDED FOR PAIN/INFLAMMATION Active Non-VA Medications Status 1) Non-VA MULTIVITAMIN/MINERALS CAP/TAB ONE CAP/TAB BY ACTIVE MOUTH ONCE DAILY 2) Non-VA OTHER CAP/TAB THC BY MOUTH TWICE DAILY ACTIVE 20 Total Medications Allergies: AKWA TEARS, DIFLUCAN, PHENYTOIN, FLUOROMETHOLONE, REFRESH TEARS, OXYCODONE LEVETIRACETAM RECENT VITAL SIGNS Blood Pressure: 126/87 (06/28/2024 11:41) Pain: 10 (06/28/2024 11:41) Patient Height: 66 in [167.6 cm] (06/28/2024 11:41) Patient Weight: 214 lb [97.07 kg] (06/28/2024 11:41) Pulse: 90 (06/28/2024 11:41) Respiration: 16 (06/28/2024 11:41) Temperature: 97.8 F [36.6 C] (06/28/2024 11:41) Pulse Ox: Measurement DT POx (L/MIN)(%) 06/28/2024 11:41 95 IMMUNIZATION HX PCE IMMUNIZATIONS ADMINISTERED Immunization Series Date Facility Reaction Info COVID-19 (MODERNA), MRNA, LNP-S,* 1 11/27/2023 [facility] * COVID-19 (PFIZER), MRNA, LNP-S, * 3 09/22/2021 Outside H* COVID-19 (PFIZER), MRNA, LNP-S, * 2 01/15/2021 [facility] * <C> COVID-19 (PFIZER), MRNA, LNP-S, * 1 12/25/2020 [facility] * <C> DTAP 09/19/2016 [facility] * <C> FLU,3 YRS (HISTORICAL) 09/19/2016 [facility] * <C> FLU,3 YRS (HISTORICAL) 07/18/2014 [facility] * <C> FLU,3 YRS (HISTORICAL) 10/19/2013 Outside H* FLU,3 YRS (HISTORICAL) 08/28/2003 [facility] * INFLUENZA, ADJUVANTED, QUADRIVAL* 08/26/2022 No Site INFLUENZA, HIGH-DOSE, QUADRIVALE* C 11/27/2023 [facility] * INFLUENZA, SPLIT VIRUS, QUADRIVA* 08/06/2021 No Site <C> INFLUENZA, SPLIT VIRUS, QUADRIVA* 08/02/2020 No Site PNEUMOCOCCAL CONJUGATE PCV20, PO* 06/19/2022 [facility] * PNEUMOCOCCAL POLYSACCHARIDE PPV23 07/18/2014 [facility] * ZOSTER RECOMBINANT 2 06/19/2022 [facility] * ZOSTER RECOMBINANT 1 09/27/2020 [facility] * CONTRAINDICATED No data available REFUSED ======= Immunization Date Facility Info COVID-19 (MODERNA), MRNA, LNP-S,* 06/01/2024 [facility] * <I> <C> See the Detailed Immunizations Health Summary Component[DIM] for Comments <I> See the Detailed Immunizations Health Summary Component[DIM] for Additional Information * Value is truncated; see the Detailed Immunizations Health Summary Component [DIM] for complete text PPD TESTING Labs PPDST - Skin Tests No data available RECENT IMAGING Include data from 06/29/2023 to 06/28/2024 06/28/2024 12:11 CONFIDENTIAL IMAGING REPORTS SUMMARY pg. 1 CHAYA PEDRO [phone] : 1955 II - Imaging Impression (max 1 occurrence) Date Procedure CPT Status Case # 03/28/2024 LDCT LUNG CANCER SCREENING [id number] Verified 16 No acute pulmonary process or significant interval change. Lung-RADS Assessment: Category 1, Negative. Recommendation: Continue annual screening with lung cancer screening CT in 12 months. Other Significant Findings and Recommendations: None. IP - Imaging Profile 03/28/2024 LDCT LUNG CANCER SCREENING CPT Code: 60481 Interpreting Staff: RAYMOND LEAL JR Exam Case Number: [id number] Exam Status: COMPLETE Rpt Status: VERIFIED Technologist: CRICKET FUENTES Reason for Study: LUNG CANCER SCREENING History: QUIT SMOKING IN 2012 BASELINE LCS LDCT 03/30/2023: LUNG RADS 1 no new or concerning pulmonary mass or nodules. Plan for repeat in 12 months. Report: Study: Lung cancer screening CT of [...] reviewed. Secondary computer-aided detection with post-processing from [employer] is used. The lack of intravenous contrast [...] months. Other Significant Findings and Recommendations: None. DX Codes: No immediate attention required LUNGRADS 1: NEGATIVE 12/10/2023 ULTRASOUND AAA SCREENING CPT Code: 01566 Interpreting Staff: RAYMOND LEAL JR Exam Case Number: [id number] Exam Status: COMPLETE Rpt Status: VERIFIED Technologist: SHANE ADAMS Reason for Study: US Abdomen, AAA screen Report: Study: AAA screening ultrasound. Comparison: None. Findings: The proximal abdominal aorta measures 2.7 cm AP by 2.5 cm transverse. The mid abdominal aorta measures 2.1 cm AP by 2.2 cm transverse. The distal abdominal aorta measures 2.1 cm AP by 1.9 cm transverse. The iliac arteries are patent and normal in caliber. There is mild calcific atherosclerotic plaque. Impression: Normal aortic caliber. DX Codes: No immediate attention required ABDOMINAL AORTIC ANEURYSM NOT PRESENT 03/30/2023 LDCT LUNG CANCER SCREENING CPT Code: 22607 Interpreting Staff: RAYMOND LEAL JR Exam Case Number: [id number] Exam Status: COMPLETE Rpt Status: VERIFIED Technologist: CRICKET FUENTES Reason for Study: former smoker Report: Study: Lung cancer screening CT of the chest. Provided History: lung cancer screening. Comparison: CT scan of the chest from August 28, 2015. TECHNIQUE: 1 mm lung algorithm and 3 mm soft tissue algorithm axial reconstructions from the lung apices through the lung bases without the administration of intravenous contrast as per standard department protocol for lung cancer screening. Subsequently, sagittal and coronal reformats were generated. The lack of intravenous contrast inherently limits the evaluation of hilar structures, vascular structures, and abnormal enhancement patterns. Lower than standard dose was utilized limiting sensitivity for fine parenchymal detail. Findings: Chest: Lungs: Mild centrilobular and paraseptal emphysematous changes again seen and stable with associated apical parenchymal and curvilinear parenchymal scarring stable changes. Mild dependent changes are present at the lung bases. No new concerning pulmonary nodule or mass is identified. The tracheobronchial tree is patent. No pneumothorax. Pleural: No pleural effusion or thickening. Mediastinum/hilum/lymph nodes: Normal. No mediastinal lymphadenopathy by size criteria. No axillary lymphadenopathy by size criteria. Heart and pericardium: The heart size is normal. No pericardial effusion. Normal caliber thoracic aorta. Vessels: Atherosclerotic changes of the aorta and coronary arteries. Chest wall and lower neck: Normal. Included thyroid is normal. Upper abdomen: Included liver is unremarkable. Included gallbladder is unremarkable. Included adrenal glands (s) are unremarkable. Included kidney (s) are unremarkable. Included pancreas is unremarkable. Included spleen is unremarkable. Skeletal: Normal age-related degenerative changes. Impression: No new concerning pulmonary nodule or mass. Lung-RADS Assessment: Category 1, Negative. Recommendation: Continue annual screening with lung cancer screening CT in 12 months. DX Codes: No immediate attention required LUNGRADS 1: NEGATIVE 12/29/2022 ULTRASOUND ABDOMEN LIMITED CPT Code: 17570 Interpreting Staff: RAYMOND LEAL JR Exam Case Number: [id number] Exam Status: COMPLETE Rpt Status: VERIFIED Technologist: SHANE ADAMS Reason for Study: fatty liver, abnml liver enzymes History: Some ultrasound tests require a prep. Report: Study: Complete abdominal ultrasound. Comparison: CT scan of the abdomen from May 27, 2021. Findings: Hepatomegaly is present measuring at least 18.0 cm in long length, not significantly changed. (Normal is less than 15.0 cm.) The liver is again diffusely increased in echogenicity consistent with diffuse hepatic steatosis or fibrosis changes with no new hepatic abnormality identified. No intrahepatic bile duct dilatation is seen. No hepatic mass is seen. The portal vein is patent with normal hepatopedal flow. The common hepatic duct measures 0.5 cm, which is normal. The gallbladder is normal. No gallstones are identified. The visualized pancreas is normal. The spleen is normal and measures 12.0 cm in length. No ascites is identified. The right kidney measures 13.0 cm and the left kidney measures 13.0 cm in length. Both kidneys are normal. Impression: Hepatomegaly and hepatic steatosis. DX Codes: No immediate attention required 05/27/2021 CT ABDOMEN AND PELVIS WITHOUT CONT. CPT Code: 76744 Interpreting Staff: RADIOLOGY,OUTSIDE Exam Case Number: [id number] Exam Status: COMPLETE Rpt Status: VERIFIED Technologist: ESME CONCEPCION Reason for Study: Kidney stones Report: PROCEDURE: Stat CT abdomen and pelvis without contrast DATE: May 27, 2021 COMPARISON: January 07, 2017 HISTORY: Kidney stones TECHNIQUE: Per [facility] radiology department. CONTRAST: None TOTAL DLP: 905 mg*cm FINDINGS: A total of 454 images were submitted to [employer] (NTP). BONES: Chronic degenerative disc disease. Incompletely upper sacral element osseous fusion. INFERIOR CHEST: Mild atelectasis. Calcified coronary arteries. ABDOMEN: Noncontrast evaluation. Grossly normal spleen, gallbladder, pancreas and adrenal glands. Enlarged (17.3 cm mid clavicular line) diffusely fatty liver. No free air, bowel dilatation, aortic aneurysm or ascites. Chronic bilateral renal calcifications up to 7 mm in the right kidney and 4 mm in the left kidney. No hydronephrosis or ureter calculus. PELVIS: Small umbilical hernia with fat and vessels but no bowel. Normal appendix. Mild diverticulosis. No acute diverticulitis. Prostate is 4 cm. Calcified vessels. No lower urinary tract calculus or ascites. New lower anterior midline body wall scar. New lower anterior midline hernia with small bowel between and slightly anterior to the rectus muscles. Incarceration is a clinical diagnosis. No bowel dilatation to suggest obstruction. No pneumatosis to suggest ischemia. Impression: 1. Noncontrast CT demonstrates chronic bilateral renal calculi up to 7 mm. No hydronephrosis, ureter or bladder calculus. 2. New lower anterior midline pelvic wall scar and herniated small bowel. No bowel dilatation to suggest obstruction. 3. Liver appears enlarged with increased fatty infiltration. READING PHYSICIAN: Damaso Fay M.D. -[phone] 05/27/2021 10:50 EDT [facility] sourceasyradiology Program [phone] (For Medical Practitioner Use Only) [address], [facility] [address], [address] [place] [address] Attention Patients / Veterans: If you have questions or concerns about these test results, please contact your ordering provider or primary care team. DX Codes: SIGNIFICANT ABNORMALITY, ATTN NEEDED ABDOMINAL AORTIC ANEURYSM NOT PRESENT RECENT LABS Collection DT Spec WBC HGB HCT PLT K+/Pot Sodium HGBA1c 06/01/2024 10:38 SERUM 4.3 140 06/01/2024 10:38 BLOOD 5.8 H 02/16/2024 09:27 BLOOD 6.2 H 02/16/2024 09:27 SERUM 4.1 141 11/27/2023 08:43 BLOOD 6.1 H Collection DT Spec GLUCOSE CREATIN AST ALT T BILI ALK EULOGIO CHOL 06/01/2024 10:38 SERUM 115 H 0.84 06/01/2024 10:38 SERUM 126 02/16/2024 09:27 SERUM 112 H 0.85 11/27/2023 08:43 SERUM 133 H 0.84 136 05/28/2023 11:39 SERUM 141 H 0.87 Collection DT Spec LDL-c HDL TRIG TSH B12 SR- VIT D25 HIV Ag/ 06/01/2024 10:38 SERUM 60 43 114 11/27/2023 08:43 SERUM 69 43 119 12/02/2022 09:15 SERUM 101 47 202 H 1.52 07/08/2022 10:39 SERUM 415 27 07/08/2022 10:39 SERUM 61 40 168 H 0.88 Collection DT Spec UR GLUC RBC/HPF 11/02/2015 11:00 URINE 0-5 03/24/2001 06:30 URINE Neg 06/05/1999 06:20 URINE Neg NoneObs 04/11/1999 10:52 URINE Neg NoneObs 01/12/1998 06:30 URINE Neg PATIENT DEMOGRAPHICS Address: [address] [place] [address] [place] [address] County: [place] Marital Status: Age: 68 Hinduism: [employer] Sex: MALE 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 Period of Service: [place] Branch of Service: ResolutionTube Combat: NO POW: NO Eligibility: SERVICE CONNECTED 50% to 100% Status: VERIFIED Means Test: NOK: KATIE PEDRO [facility] [place] [place] Insurance COB Subscriber ID Group Paul Effective MEDICARE (WNR) S [id number] MAR 19, 1990 [facility] P [id number] SPOUSE SEP 18, 2014 [employer] [facility] [facility] P [id number] SPOUSE SEP 18, 2014 MEDIMPACT RX P [id number] SPOUSE SEP 18, 2014 [place] P [id number] SPOUSE APR 18, 2018 EXPRESS SCRIPTS (6100 P [id number] SPOUSE APR 18, 2020 No barriers; Patient understands and agrees to current treatment plan. EMERGENCY ROOMS Emergency Room FAX # Tel # [facility] [phone] [facility] [phone] [facility] [phone] Sonia Mayen [phone] [place] [phone] [facility] [phone] [place] [phone] /es/ MARYJO GARCIA REGISTERED NURSE Signed: 06/28/2024 12:11 MARYJO GARCIA [place] [facility] [place] [facility] Jun 28, 2024 11:46 AM PRIMARY CARE NURSE PRACTITIONER OUTPATIENT NOTE: LOCAL TITLE: NURSE PRACTITIONER OUTPATIENT NOTE STANDARD TITLE: PRIMARY CARE NURSE PRACTITIONER OUTPATIENT NOTE DATE OF NOTE: JUN 28, 2024@11:46 ENTRY DATE: JUN 28, 2024@11:46:36 AUTHOR: ELIZABET ROBINS EXP COSIGNER: URGENCY: STATUS: COMPLETED Pt is a 68 who comes in for follow up of medical problems as noted below. HPI: Chaya is here with who drove him, he does not drive 2/2 so hx Thursday06/26/24 was having headaches, sweating, then chest pain arm and back pain, at that point called ambulance while in ambulance he had witness SZ, he wanted to go to [facility] but they took him to [facility] which was [place] and had a few SZ while there, they did chest pain workup including EKG, CXR labs trop all neg. He denies having any brain imaging, was told cause of Chest pain and back pain was unclear from workup and they thought that visual changes and confusion that they thought were likely from SZ No falls from SZ that he is aware of he still has back pain and also with severe posterior head pain and still with visual changes including brief vision loss that is intermittent he notes that has been an aura for him in the past to have SZ, he denies hx of migraine . he is very tired today and worn out likely from the SZ, he was also given Morphine in ER and that often wipes him out even more in exam room he reports not feeling right and feels he needs to go back to ER He used to be on Keppra but gave him nightmares also reports being on other Sz meds but many of them he could not tolerate the s/e PMH: Active problems - Computerized Problem List [...] caused by toxin 12. Diverticulosis 2016 [facility] [place] [facility] 13. Galeas's esophagus EGD 09/02/16 Dr. [place] 14. Rosacea 15. Deep venous thrombosis of upper extremity LUE, basilic vein 16. Nephrolithiasis On CT at [facility] 02/07/2015. 17. Hyperlipidemia Total chol/HDL/LDL/trigs: 154/41/84/145 (04/08/22). F/U to discuss statin w/ T2DM 18. Lower urinary tract symptoms due to benign prostatic hypertrophy (SNOMED CT PSA normal (04/08/22) 19. Family history of prostate cancer Father and three brothers. 20. Schizoaffective disorder (SNOMED CT 84681342) 21. Alcohol dependence (SNOMED CT 73691541) episodic 22. Periodontal Disease NEC 23. GERD [...] EYE FOUR TIMES DAILY NEEDED DRY EYE 16) SILDENAFIL CITRATE 25MG TAB TAKE ONE TABLET [...] LEVETIRACETAM VITAL SIGNS: 97.8 F [36.6 C] (06/28/2024 11:41) 90 (06/28/2024 11:41) 16 (06/28/2024 11:41) 126/87 (06/28/2024 11:41) 10 (06/28/2024 11:41) 66 in [167.6 cm] (06/28/2024 11:41) 214 lb [97.07 kg] (06/28/2024 11:41) BMI: 34.6 ROS General: no fever, no unexplained weight loss or gain CV: denies CP, palpitations Lung: denies Dyspnea or wheezing Abd: denies n/v/d Ext: denies edema Psych: denies SI Neuro: denies dizziness, falls, MENDOZA PHYSI KACI EXAM GENERAL: somewhat distressed [place] speeking in clear sentences. SKIN: Clean, dry intact no rashes , lesions or nodules observed. RESP: CTAB, no wheezing or Rales. Cards: S1 S2 RRR, No m/r/g no JVD, No Pedal Edema, Distal Pulses palpable Musculo: FROM Head/Neck with equal strength Spine normal 3 curvature, no paraspinal TTP NEURO CN II-XII grossly intact, gait steady without shuffle MENTAL A&Ox3 Appropriate, Pleasant, Cooperative MICROALB/CR RATIO: 10.8 MICROALBUMIN URINE: 1.1 CREATININE URINE: 101.63 GLUCOSE: 115 H UREA NITROGEN: 13 SODIUM: 140 POTASSIUM: 4.3 CHLORIDE: 107 CO2: 21 CREATININE-EGFR: 0.84 eGFR CKD-EPI 2020: >90 HGB A1C (WR): 5.8 H CHOLESTEROL: 126 TRIGLYCERIDE: 114 LDL CHOL: 60 CHOL/HDL RATIO: 2.9 HDL: 43 Future Clinic Visits 09/21/2024 09:00 CWM/NO/PHARM/PACT 3 09/21/2024 10:00 CWM/NO/OPTOMETRY/MERHAR 12/09/2024 09:00 CWM/NO/PACT 5 ASSESSMENT AND PLAN: 1)SZ Mr. Pedro Clinically is not appearing well and he does not feel well given he had severe head pain and visual changes just after having Known SZ and not on SZ meds i think It is safest he go back to ER for eval, he agrees and feels that is safest option I have encouraged I call ambulance but his s driving and he refuses ambulance she is able to drive him safely there I have reached out to [facility] ER triage nurse for intake and also place urgent neuro consult for outpatient Return to clinic to see me in 3 months, RTC sooner if needed. Clinical Reminders Medication Reconciliation: Outpatient: Has the patient been taking medications as documented in the EMLR? YES: The patient has been taking medications as documented in the EMLR. Essential Medication List for Review used to complete this medication reconciliation. INCLUDED IN THIS LIST: Alphabetical list of active outpatient prescriptions [facility]ensed from this [facility] ([facility]) and dispensed from another [place] or [facility] facility (remote) as well as inpatient [...] provider. /gaetano/ CIERRA GREGORY Nurse Practitioner Signed: 06/28/2024 12:33 ELIZABET ROBINS [place] [facility]
--- OUTSIDE RECORDS SUMMARY | 2024-11-01 08:04 | XMS_ITS | Encounter Summary ---
Author Name [facility] [facility] [place] Address [address] [place] [address] Care Team Providers Care Preparator Name Role Phone ELIZABET ROBINS Primary Care [...] Paul FORMERLY [facility] CE ORGANIZ FOR[facility]LY [facility] AC Apr 18, 2018 [id number] WILLIS,MAR JUDITH SPOUSE ANTHEM [place] OF [place] (BLU[place]ARD) [facility] MAINCHRISTINA CE ORGANIZ [facility] Apr 18, 2018 [id number] [phone] WILLIS,MAR JUDITH SPOUSE BCBS [facility] CE ORGANIZ [facility] SHARE ACTIV E Apr 18, 2018 [id number] WILLIS,MAR JUDITH SPOUSE BC[facility]GANIZ [facility] Apr 18, 2018 [id number] WILLIS,MAR JUDITH PATIENT BCBS OF [facility] CE ORGANIZ BRENDA MCCABE [facility] Apr 18, 2018 [id number] WILLIS,MAR JUDITH SPOUSE BCBS OF [place] PREFERRED PROVIDER ORGANIZAT ION (PPO) [facility] AC Apr 18, 2018 [id number] [phone] WILLIS,MAR JUDITH SPOUSE BCBS OF [facility] CE ORGANIZ BRENDA MCCABE [facility] ACT Apr 18, 2018 [id number] WILLIS,EDILBERTO JUDITH SPOUSE BCBS OF [facility] CE ORGANIZ BRENDA MCCABE [facility] AC Apr 18, 2018 [id number] [phone] WILLIS,MAR JUDITH SPOUSE [place] PRESCRIPT ION RX22M A Oct 19, 2022 [id number] [id number] WILLIS,LAVELLE AEL PATIENT [place] PRESCRIPT ION RX22M B Oct 19, 2022 [id number] [id number] WILLIS,LAVELLE AEL PATIENT [place] PRESCRIPT ION RX22M B Oct 19, 2022 RX22MB [id number] WILLIS,MAR JUDITH SPOUSE [place] PRESCRIPT ION BRENDA MCCABE [facility] AC Oct 19, 2022 [id number] WILLIS,LAVELLE AEL SPOUSE [place] PRESCRIPT ION RX Oct 19, 2022 [id number] WILLIS,MAR JUDITH SPOUSE [place] PRESCRIPT ION BCBS OF [place] Oct 19, 2022 [id number] WILLIS, SPOUSE [place] ([id number]) PRESCRIPT ION [place] OF [place] Oct 19, 2022 [id number] WILLIS,MAR JUDITH SPOUSE [place] BCBS ([facility] CE ORGANIZ BRENDA MCCABE [facility] AC Apr 18, 2018 [id number] WILLIS,EDILBERTO SOTELOZA SPOUSE [employer] PRESCRIPT ION [place] 2018 L4TA [id number] WILLIS,EDILBERTO SOTELOZA SPOUSE [employer] ([id number]) PRESCRIPT ION Apr 18, 2018 L4TA [id number] WILLIS,EDILBERTO SOTELOZA SPOUSE [employer] ([id number]) PRESCRIPT ION L4TA* Apr 18, 2020 L4TA [id number] WILLIS,EDILBERTO PALAFOXA SPOUSE [employer] ([id number]) PRESCRIPT ION L4TA* Apr 18, 2018 L4TA [id number] WILLIS,EDILBERTO PALAFOXA SPOUSE [employer] ([id number]) PRESCRIPT ION L4TA Apr 18, 2018 L4TA [id number] WILLIS,EDILBERTO WONG SPOUSE [employer] ([id number]) PRESCRIPT ION Apr 18, 2018 L4TA [id number] 32 WILLISEDILBERTO SPOUSE [employer] ([id number]) PRESCRIPT ION Apr 18, 2018 L4TA [id number] WILLIS,EDILBERTO WONG SPOUSE [employer]-MINOR BROGATION PRESCRIPT ION [place] Apr 18, 2020 L4TA [id number] WILLIS,EDILBERTO WONG SPOUSE [facility]) [facility] CE ORGANIZAT ION W/OUT OF NETWORK BENEFITS [facility] ACT Apr 18, 2018 [id number] WILLISEDILBERTO SPOUSE [place] BCBS [facility] (BLUECARD) [facility] CE ORGANIZAT ION [facility] AC Apr 18, 2018 [id number] [phone] WILLIS,EDILBERTO WONG SPOUSE MEDICARE (WNR) MEDICARE (M) PART A Mar 19, 1990 PART A [id number] [phone] LAVELLE PEDRO PATIENT MEDICARE (WNR) MEDICARE (M) PART A Mar 19, 1990 PART A [id number] WILLIS,LAVELLE AEL PATIENT MEDICARE (WNR) MEDICARE (M) PART A Mar 19, 1990 PART A [id number] WILLIS,LAVELLE AEL PATIENT MEDICARE (WNR) MEDICARE (M) PART A Mar 19, 1990 PART A [id number] WILLIS,LAVELLE AEL PATIENT MEDICARE (WNR) MEDICARE (M) PART A Mar 19, 1990 PART A [id number] [phone] WILLIS,LAVELLE AEL PATIENT MEDICARE (WNR) MEDICARE (M) PART A Mar 19, 1990 PART A [id number] WILLIS,LAVELLE AEL PATIENT MEDICARE (WNR) MEDICARE (M) PART A Mar 19, 1990 PART A [id number] WILLIS,LAVELLE AEL PATIENT MEDICARE (WNR) MEDICARE (M) PART A Mar 19, 1990 PART A [id number] WILLIS,LAVELLE AEL PATIENT MEDICARE (WNR) MEDICARE (M) PART A Mar 19, 1990 PART A [id number] [phone] WILLIS,LAVELLE AEL PATIENT MEDICARE (WNR) MEDICARE (M) PART A Mar 19, 1990 PART A [id number] WILLIS,LAVELLE AEL PATIENT MEDICARE (WNR) MEDICARE (M) PART A Mar 19, 1990 PART A [id number] WILLIS,LAVELLE AEL PATIENT Selected Encounter This section includes the information on record at [place] for the Encounter. Date/Time Encounter Type Encounter Description Reason Pro vider Source Jul 01, 2024 01:56 PM Outpatient Encounter ADMIN PAT ACTIVTIES (MASNONCT) IHE Encounter Template Text not used by [place] Plan of Treatment: Future Appointments (+ 6 [...] appointments. The data comes from all [facility]. Appointment Date/Time Appointment Type Appointme nt Facility Name Jul 08, 2024 10:30 AM AMBULATORY - MEDICINE [place] [facility] [place] [facility] Jul 13, 2024 09:30 AM AMBULATORY MEDICINE [place] [facility] [place] [facility] Aug 12, 2024 09:30 AM AMBULATORY MEDICINE [place] [facility] [place] [facility] Aug 22, 2024 09:00 AM AMBULATORY MEDICINE [place] [facility] [facility] Sep 21, 2024 09:00 AM AMBULATORY MEDICINE [place] [facility] [facility] Sep 21, 2024 10:00 AM AMBULATORY MEDICINE [place] [facility] [place] [facility] Nov 28, 2024 09:30 AM AMBULATORY MEDICINE [facility] [place] [facility] Dec 02, 2024 08:30 AM AMBULATORY MEDICINE [facility] NTRL [facility] Active, Pending, and Scheduled Orders This section includes a listing of several types of active, pending, and scheduled orders, including clinic medications orders, diagnostic test orders, procedure orders and consult orders; where the start date of the order is 45 days before the date of the Encounter or 45 days after the date of theEncounter. The data comes from all [facility]. Test Date/Time Test Type Test Details Facility Name Jul 13, 2024 09:58 AM Consult Order PODIATRY/N HM OUTPT Cons Flumer's Choice [facility] Social History: Smoking Status (Most current) and Tobacco Use (All prior to encounter date) This section includes the most current, and the historical, smoking and tobacco- related health factors from the [place] facility where the Encounter took place. Current Smoking Status This section includes the most current smoking, or tobacco-related health factor, from the [place] facility where the Encounter took place. Date/Time Current Smoking Status Comment Enrique shannon Nov 27, 2023 11:00 AM [place]-TOBACCO FORMER USER [facility] Tobacco Use History This section includes a history of the smoking, or tobacco-related health factors, that were collected on or before the date of the Encounter. The data comes from the [facility] where the Encounter took place. Date/Time Smoking Status/Tobac co Use Comment Facility Nov 27, 2023 11:00 AM [place]-TOBACCO QUIT 15 YRS OR MORE [facility] Dec 02, 2022 08:00 AM VA-TOBACCO FORMER USER [facility] Dec 02, 2022 08:00 AM VA-TOBACCO QUIT 15 YRS OR MORE [facility] Nov 05, 2021 10:30 AM VA-TOBACCO FORMER USER [facility] Nov 05, 2021 10:30 AM VA-TOBACCO QUIT 1 TO < 5 YRS [facility] Sep 14, 2020 02:00 PM VA-TOBACCO FORMER USER [facility] Sep 14, 2020 02:00 PM VA-TOBACCO QUIT 5 TO < 15 YRS [facility] Jan 22, 2018 03:40 PM QUIT TOBACCO USE > 7 YEARS AGO [facility] Jun 04, 2016 02:01 PM CURRENT SMOKER been smoking pass 20 yrs [facility] Jun 04, 2016 02:01 PM V1-PT DECLINES REF [facility]BACCO [facility] Jun 04, 2016 02:01 PM V1-PT THINKING ABOUT QUIT TOBACCO USE [facility] Jul 18, 2014 03:31 PM V1-PT DECLINES REF TO TOBACCO CESS [facility] Jul 18, 2014 03:31 PM V1-PT DECLINES TOBACCO CESSATION MEDS [facility] Jul 18, 2014 03:31 PM V1-PT NOT INTERESTED IN QUIT TOBACCO USE [facility] Jan 09, 2014 10:43 AM CURRENT SMOKER pt smokes 1 pk of cigarettes per day. [facility] Jan 09, 2014 10:43 AM V1-PT THINKING ABOUT QUIT TOBACCO USE [facility] Aug 28, 2003 10:47 AM CURRENT SMOKER one pack q 6 days - he has cut down from 3 PPD. He is in the process of quitting [place] [facility] [place] [facility] Encounter Notes: All associated encounter notes This section contains the clinical notes associated to the Encounter. Date/Time Encounter Note(s) Provider Source Jul 05, 2024 01:15 PM ADDENDUM: LOCAL TITLE: Addendum STANDARD TITLE: ADDENDUM DATE OF NOTE: JUL 05, 2024@13:15:34 ENTRY DATE: JUL 05, 2024@13:15:35 AUTHOR: ELIZABET ROBINS EXP COSIGNER: URGENCY: STATUS: COMPLETED Bina or Kate can you try to pull any [facility] notes especially his inpatient notes, he is continuing to have SZ activity while admitted and they are thinking of transferring him to [facility] in [place]. I can call but wanted to get the notes first thanks (did not see anything in [facility] yet) /gaetano/ CIERRA GREGORY Nurse Practitioner Signed: 07/05/2024 13:16 Receipt Acknowledged By: 07/05/2024 14:17 /gaetano/ BINA GORMAN, MSN, RN, CNL PRIMARY CARE TEAM NURSE 07/05/2024 13:51 /gaetano/ Marcia Maurer, embroidery designer Staff Nurse === --- Original Document --- 07/01/24 CCC: SCHEDULING ADMINISTRATION: Patient Demographics Patient Name: CHAYA PEDRO Patient Primary Phone: [phone] Patient Primary Address: [address] [place] [address] Patient : 1955 Patient Age: 68 Call Back Number: [phone] Caller/Recipient Relation to Patient: Other If Other Describe Relation to Patient: Spouse Caller Name: Katie Administrative Administrative Note Reason: Outside Care Performed Administrative Note Comments: Katie, the 's is calling to give the PACT and update on the patient. Thursday per the provider's suggestion he went to the ER. He was admitted to [facility]. Since then he has been having multiple seizures, they have been trying new medications with him with no resolve. The providers have been discussing transferring him to [facility]. His is very frustrated because they are not giving her any updates on him at all. Please call her back to further discuss this. Thank you. IMPORTANT: This note was created by [facility] Clinical Contact Center staff. Please do not alert the staff member by adding them as a signer for future communications. Alerts are not monitored by this user. /gaetano/ ROBER MULTANI VISN [facility] Signed: 07/01/2024 13:56 Receipt Acknowledged By: 07/05/2024 13:14 /gaetano/ CIERRA GREGORY Nurse Practitioner * AWAITING SIGNATURE * BINA GORMAN 07/05/2024 ADDENDUM STATUS: COMPLETED Alert received 07/01. Vet is currently inpatient at [facility]. /gaetano/ Marcia Maurer RN Primary Care Staff Nurse Signed: 07/05/2024 13:52 ELIZABET ROBINS [place] [facility] Jul 01, 2024 01:56 PM ADMINISTRATIVE NOTE: LOCAL TITLE: CCC: SCHEDULING ADMINISTRATION STANDARD TITLE: ADMINISTRATIVE NOTE DATE OF NOTE: JUL 01, 2024@13:56:26 ENTRY DATE: JUL 01, 2024@13:56:26 AUTHOR: ROBER MULTANI COSIGNER: URGENCY: STATUS: COMPLETED CCC: SCHEDULING ADMINISTRATION Has ADDENDA Patient Demographics Patient Name: CHAYA PEDRO Patient Primary Phone: [phone] Patient Primary Address: [address] [place] [address] Patient : 1955 Patient Age: 68 Call Back Number: [phone] Caller/Recipient Relation to Patient: Other If Other Describe Relation to Patient: Spouse Caller Name: Katie Administrative Administrative Note Reason: Outside Care Performed Administrative Note Comments: Katie, the 's is calling to give the PACT and update on the patient. Thursday per the provider's suggestion he went to the ER. He was admitted to [facility]. Since then he has been having multiple seizures, they have been trying new medications with him with no resolve. The providers have been discussing transferring him to [facility]. His is very frustrated because they are not giving her any updates on him at all. Please call her back to further discuss this. Thank you. IMPORTANT: This note was created by [facility] Clinical Contact Center staff. Please do not alert the staff member by adding them as a signer for future communications. Alerts are not monitored by this user. /gaetano/ ROBER MULTANI VISN [facility] Signed: 07/01/2024 13:56 Receipt Acknowledged By: 07/05/2024 13:14 /gaetano/ CIERRA GREGORY Nurse Practitioner 07/05/2024 14:18 /gaetano/ BINA GORMAN, MSN, RN, CNL PRIMARY CARE TEAM NURSE 07/05/2024 ADDENDUM STATUS: COMPLETED Bina or Kate can you try to pull any [facility] notes especially his inpatient notes, he is continuing to have SZ activity while admitted and they are thinking of transferring him to [facility] in [place]. I can call but wanted to get the notes first thanks (did not see anything in [facility] yet) /CIERRA Waller Nurse Practitioner Signed: 07/05/2024 13:16 Receipt Acknowledged By: 07/05/2024 14:17 /gaetano/ BINA GORMAN, MSN, RN, CNL PRIMARY CARE TEAM NURSE 07/05/2024 13:51 /gaetano/ Marcia Maurer RN Primary Care Staff Nurse 07/05/2024 ADDENDUM STATUS: COMPLETED Alert received 07/01. Vet is currently inpatient at [facility]. /jerry Maurer embroidery designer Staff Nurse Signed: 07/05/2024 13:52 [facility]
--- OUTSIDE RECORDS SUMMARY | 2024-11-01 08:04 | XMS_ITS | Encounter Summary ---
Author Name [facility] [place] Address [address] [place] [address] Care Team Providers Care It Security Consultant Name Role Phone ELIZABET ROBINS Primary [...] Policy Paul [facility] CE ORGANIZ [facility] AC Apr 18, 2018 [id number] [phone] WILLIS,MAR JUDITH SPOUSE [place] [facility] CE ORGANIZ BRENDA [facility] Apr 18, 2018 [id number] WILLIS,MAR JUDITH SPOUSE BCBS [facility] CE ORGANIZ [facility] SHARE ACTIV E Apr 18, 2018 [id number] WILLIS,MAR JUDITH SPOUSE BCBS OF [facility] CE ORGANIZ [facility] Apr 18, 2018 [id number] WILLIS,MAR JUDITH PATIENT BCBS OF [facility] CE ORGANIZ BRENDA MCCABE [facility] Apr 18, 2018 [id number] WILLIS,MAR JUDITH SPOUSE BCBS OF [place] PREFERRED PROVIDER ORGANIZAT ION (PPO) BRENDA MCCABE [facility] AC Apr 18, 2018 [id number] WILLIS,MAR JUDITH SPOUSE BCBS OF [facility] CE ORGANIZ BRENDA MCCABE [facility] ACT Apr 18, 2018 [id number] WILLIS,MAR JUDITH SPOUSE BCBS OF [facility] CE ORGANIZ BRENDA MCCABE [facility] AC Apr 18, 2018 [id number] WILLIS,MAR JUDITH SPOUSE [place] PRESCRIPT ION RX22M B Oct 19, 2022 [id number] [phone] WILLIS,MAR JUDITH SPOUSE [place] PRESCRIPT ION [place]BS [place] Oct 19, 2022 [id number] [phone] WILLIS, SPOUSE [place] PRESCRIPT ION RX22M A Oct 19, 2022 [id number] WILLIS,LAVELLE AEL PATIENT [place] PRESCRIPT ION RX22M B Oct 19, 2022 [id number] WILLIS,LAVELLE AEL PATIENT [place] PRESCRIPT ION BRENDA MCCABE [facility] AC Oct 19, 2022 [id number] [phone] WILLIS,LAVELLE AEL SPOUSE [place] PRESCRIPT ION RX Oct 19, 2022 [id number] [phone] WILLIS,MAR JUDITH SPOUSE [place] ([id number]) PRESCRIPT ION [place] Oct 19, 2022 [id number] WILLIS,MAR JUDITH SPOUSE [place] ([facility] CE ORGANIZ BRENDA MCCABE [facility] AC Apr 18, 2018 [id number] [phone] WILLIS,EDILBERTO SOTELOZA SPOUSE [employer] PRESCRIPT ION BCBS [place] 2018 [id number] WILLIS,EDILBERTO SOTELOZA SPOUSE [employer] ([id number]) PRESCRIPT ION Apr 18, 2018 L4TA [id number] WILLIS,EDILBERTO SOTELOZA SPOUSE [employer] ([id number]) PRESCRIPT ION L4TA* Apr 18, 2020 L4TA [id number] WILLISEDILBERTOA SPOUSE [employer] ([id number]) PRESCRIPT ION L4TA* Apr 18, 2018 L4TA [id number] WILLIS,EDILBERTO PALAFOXA SPOUSE [employer] ([id number]) PRESCRIPT ION Apr 18, 2018 L4TA [id number] WILLIS,EDILBERTO WONG SPOUSE [employer] ([id number]) PRESCRIPT ION Apr 18, 2018 L4TA [id number] WILLISEDILBERTO SPOUSE [employer] ([id number]) PRESCRIPT ION L4TA Apr 18, 2018 L4TA [id number] WILLIS,EDILBERTO WONG SPOUSE [employer]-MINOR BROGATION PRESCRIPT ION [place]BS [place] Apr 18, 2020 L4TA [id number] WILLIS,EDILBERTO WONG SPOUSE [facility]) [facility] CE ORGANIZAT ION W/OUT OF NETWORK BENEFITS [facility] ACT Apr 18, 2018 [id number] EDILBERTO PEDRO SPOUSE [place] BCBS [facility] (BLUECAR) [facility] CE ORGANIZAT ION [facility] AC Apr 18, 2018 [id number] EDILBERTO PEDRO SPOUSE MEDICARE (WNR) MEDICARE (M) PART A Mar 19, 1990 PART A [id number] WILLISLAVELLE AEL PATIENT MEDICARE (WNR) MEDICARE (M) PART A Mar 19, 1990 PART A [id number] [phone] WILLIS,LAVELLE AEL PATIENT MEDICARE (WNR) MEDICARE (M) PART A Mar 19, 1990 PART A [id number] [phone] WILLIS,LAVELLE AEL PATIENT MEDICARE (WNR) MEDICARE (M) PART A Mar 19, 1990 PART A [id number] WILLIS,LAVELLE AEL PATIENT MEDICARE (WNR) MEDICARE (M) PART A Mar 19, 1990 PART A [id number] WILLIS,LAVELLE AEL PATIENT MEDICARE (WNR) MEDICARE (M) PART A Mar 19, 1990 PART A [id number] WILLIS,LAVELLE AEL PATIENT MEDICARE (WNR) MEDICARE (M) PART A Mar 19, 1990 PART A [id number] WILLIS,LAVELLE AEL PATIENT MEDICARE (WNR) MEDICARE (M) PART A Mar 19, 1990 PART A [id number] WILLIS,LAVELLE AEL PATIENT MEDICARE (WNR) MEDICARE (M) PART A Mar 19, 1990 PART A [id number] WILLIS,LAVELLE AEL PATIENT MEDICARE (WNR) MEDICARE (M) PART A Mar 19, 1990 PART A [id number] [phone] WILLIS,LAVELLE AEL PATIENT MEDICARE (WNR) MEDICARE (M) PART A Mar 19, 1990 PART A [id number] [phone] [id number] WILLISLAVELLE AEL PATIENT Selected Encounter This section includes the information on record at [place] for the Encounter. Date/Time Encounter Type Encounter Description Reason Pro vider Source Jul 07, 2024 03:04 PM Outpatient Encounter TELEPHONE TRIAGE IHE Encounter Template [...] The data comes from all [place] [facility]. Appointment Date/Time Appointment Type Appointme nt Facility Name Jul 08, 2024 10:30 AM AMBULATORY [place]ICINE [place] [facility] [place] [facility] Jul 13, 2024 09:30 AM [place]IC[place] [facility] [place] [facility] Aug 12, 2024 09:30 AM AM[place]ULATORY [place]INE [place] [facility] [place] [facility] Aug 22, 2024 09:00 AM AM[place]ULATORY [place]ICINE [place] [facility] [place] [facility] Sep 21, 2024 09:00 AM AMBULATORY [place]ICINE [place] [facility] [place] [facility] Sep 21, 2024 10:00 AM AMBULATORY [place]ICINE [place] [facility] [place] [facility] Nov 28, 2024 09:30 AM AMBULATORY [place]ICINE [place] [facility] [place] [facility] Dec 02, 2024 08:30 AM AMBULATORY - MEDICINE [facility] Active, Pending, and Scheduled Orders This section includes a listing of several types of active, pending, and scheduled orders, including clinic medications orders, diagnostic test orders, procedure orders and consult orders; where the start date of the order is 45 days before the date of the Encounter or 45 days after the date of theEncounter. The data comes from all [facility]. Test Date/Time Test Type Test Details Facility Name Jul 13, 2024 09:58 AM Consult Order PODIATRY/N HM OUTPT Cons Sales And [employer] Recruiter's Choice [facility] Social History: Smoking Status (Most current) [...] place. Date/Time Current Smoking Status Comment Facil [place] Nov 27, 2023 11:00 AM [place]-TOBACCO QUIT 15 YRS OR MORE [facility] Tobacco Use History This section includes a history of the smoking, or tobacco-related health factors, that were collected on or before the date of the Encounter. The data comes from the [place] facility where the Encounter took place. Date/Time Smoking Status/Tobac co Use Comment Facility Nov 27, 2023 11:00 AM [place]-TO[place]ACCO QUIT 15 YRS OR MORE [facility] Dec 02, 2022 08:00 AM VA-TOBACCO FORMER USER [facility] Dec 02, 2022 08:00 AM [place]-TOBACCO QUIT 15 YRS OR MORE [facility] Nov 05, 2021 10:30 AM VA-TOBACCO [facility] Nov 05, 2021 10:30 AM VA-TOBACCO QUIT 1 TO < 5 YRS [facility] Sep 14, 2020 02:00 PM VA-TOBACCO [facility] Sep 14, 2020 02:00 PM VA-TOBACCO QUIT 5 TO < 15 YRS [facility] Jan 22, 2018 03:40 PM QUIT TOBACCO USE > 7 YEARS AGO [facility] Jun 04, 2016 02:01 PM CURRENT SMOKER been smoking pass 20 yrs [facility] Jun 04, 2016 02:01 PM V1-PT DECLINES REF TO TOBACCO CESS PRGM [facility] Jun 04, 2016 02:01 PM V1-PT THINKING ABOUT QUIT TOBACCO USE [facility] Jul 18, 2014 03:31 PM V1-PT DECLINES REF TO TOBACCO CESS [facility] Jul 18, 2014 03:31 PM V1-PT DECLINES TOBACCO CESSATION MEDS [facility] Jul 18, 2014 03:31 PM V1-PT NOT INTERESTED IN QUIT TOBACCO USE [facility] Jan 09, 2014 10:43 AM CURRENT SMOKER pt smokes 1 pk of cigarettes per day. [facility] [place] [facility] Jan 09, 2014 10:43 AM V1-PT THINKING ABOUT QUIT TOBACCO USE [facility] Aug 28, 2003 10:47 AM CURRENT SMOKER one pack q 6 days - he has cut down from 3 PPD. He is in the process of quitting [place] [facility] [place] [facility] Encounter Notes: All associated encounter notes This section contains the clinical notes associated to the Encounter. Date/Time Encounter Note(s) Provider Source Jul 07, 2024 03:04 PM RN PROGRESS NOTE: LOCAL TITLE: CCC: CLINICAL TRIAGE STANDARD TITLE: RN PROGRESS NOTE DATE OF NOTE: JUL 07, 2024@15:04:21 ENTRY DATE: JUL 07, 2024@15:04:21 AUTHOR: JORGE A SALINAS EXP COSIGNER: URGENCY: STATUS: COMPLETED CCC: CLINICAL TRIAGE Has ADDENDA Patient Demographics Patient Name: CHAYA PEDRO Patient Primary Address: [address] [place] [id number] Patient Primary Phone: [phone] Patient : 1955 Patient Age: 68 Caller/Recipient Relation to Patient: Self Emergency Contact: KATIE LEUVANOYES Triage Summary Chief Complaint: Diarrhea System WHEN: Within 3 Days Nurse's Recommendation / WHEN: Within 3 Days System WHERE: Clinic Nurse's Recommendation / WHERE: Virtual Video Visit Patient Disposition Patient/Caregiver agrees to plan of care: Yes Nursing Plan and Disposition Referred for [facility] Virtual Clinic Visit Transferred patient to Sched & Admin-VCV Referred Patient for In-Person Appt Transferred patient to Sched & Admin-Apt Other course(s) of action Generated msg to PACT/Provider Provided guidance for worsening symptoms: *Caller/Patient* advised to call facilities [place] Clinical Contact Center or seek immediate medical attention for new or worsening symptoms Nurse Summary Nurse Summary: calling in reporting he discharged 6 days ago from [facility] Dx seizures Followed by civilian Neuro Had many med changes Today he is calling noting diarrhea Onset 07/05/24 wo N/V Feeling well No further seizures Has increased his hydration Has been out to dinner with him - she is not having any GI sx Today has had 2 episodes Took Imodium last night with good effects Did not want to continue wo consulting with a provider Told to stop his Doxy during this hospitalization- was taking for his eyes for quite some time Takes probiotic also eats yogurt with live cultures See triage R prefers PC but per [facility] MSA no availability He agrees to VVC with [facility] provider tomorrow am 07/08/24 Clinical Contact Center Codes Clinic/Location: V1 CWM PHONE [facility] RN Decision Support System Output: Triage Complete Triage Date: 07/07/2024, 02:51 PM Triage Note: Decision Support Tool Used: TXCC Phone Triage Jael, 07 Jul 2024 18:45:11 +0000 [facility] Demographics 68 y/o Male Results CC: Diarrhea Software suggested: Within 3 Days Software suggested follow-up location: Clinic, consider [facility] care Values and Measures Duration of CC: 3 Days Positive Responses HPI: diarrhea, repeated episodes PMH: diabetes VS: BP not taken VS: pulse not taken VS: temperature not taken Negative Responses Denies: HPI: abdominal pain Denies: HPI: diarrhea, duration longer than 4 days Denies: HPI: diarrhea, more than 8 episodes within past 12 hours Denies: HPI: hematochezia Denies: HPI: lightheadedness, orthostatic Denies: HPI: maroon stool Denies: HPI: melena Denies: HPI: oliguria Denies: HPI: stool mucus, green or yellow Denies: HPI: vomiting Denies: HPI: weakness, unable to stand or get out of bed Denies: MEDS: antibiotic Denies: MEDS: chemotherapy Denies: MEDS: insulin Denies: PMH: Crohn's disease Denies: PMH: HIV positive Denies: PMH: ulcerative colitis Denies: PSH: organ transplant [place] Education Verbal Education Provided for: Diarrhea Home Care IMPORTANT: This note was created by [facility] Clinical Contact Center staff. Please do not alert the staff member by adding them as a signer for future communications. Alerts are not monitored by this user. /gaetano/ JORGE A SALINAS [id number] Signed: 07/07/2024 15:04 Receipt Acknowledged By: 07/08/2024 13:36 /gaetano/ DEBBIE GORMAN, ELZBIETA, RN, CNL PRIMARY CARE TEAM NURSE 07/11/2024 08:22 /gaetano/ Marcia Maurer RN Primary Care Staff Nurse 07/11/2024 ADDENDUM STATUS: COMPLETED Vet had a tele emergency appt on 07/08/24. /gaetano/ Marcia Maurer RN Primary Care Staff Nurse Signed: 07/11/2024 08:23 JORGE A SALINAS [facility]
--- OUTSIDE RECORDS SUMMARY | 2024-11-01 08:04 | XMS_ITS | Encounter Summary ---
Author Name [facility] [place] [facility] [place] Address [address] [place] [address] Care Team Providers Care Raw Juice Weigher Name Role Phone ELIZABET ROBINS Primary Care [...] Name Patient's Relationship to Policy Paul FORMERLY [facility] CE ORGANIZ [facility] AC Apr 18, 2018 [id number] WILLIS,MAR JUDITH SPOUSE ANTHEM BCBS OF [place] ([place]ARD) [facility] CE ORGANIZ BR[facility]DA [facility] Apr 18, 2018 [id number] WILLIS,MAR JUDITH SPOUSE BCBS [facility] E Apr 18, 2018 [id number] WILLIS,MAR JUDITH SPOUSE BCBS OF [facility] CE ORGANIZ [facility] Apr 18, 2018 [id number] WILLIS,MAR JUDITH PATIENT BCBS OF [facility] CE ORGANIZ BRENDA MCC[facility] Apr 18, 2018 [id number] WILLIS,MAR JUDITH SPOUSE [place] OF [place] PREFERRED PROVIDER ORGANIZAT ION (PPO) BRENDA MCCABE [facility] AC Apr 18, 2018 [id number] WILLIS,MAR JUDITH SPOUSE BCBS OF [facility] CE ORGANIZ BRENDA MCCABE [facility] ACT Apr 18, 2018 [id number] WILLIS,MAR JUDITH SPOUSE BCBS OF [facility] CE ORGANIZ BRENDA MCCABE [facility] AC Apr 18, 2018 [id number] [phone] WILLIS,MAR JUDITH SPOUSE CAREMARK PRESCRIPT ION RX22M A Oct 19, 2022 RX22MA [id number] WILLIS,LAVELLE AEL PATIENT CAREMARK PRESCRIPT ION RX22M B Oct 19, 2022 RX22MB [id number] WILLIS,LAVELLE AEL PATIENT CAREMARK PRESCRIPT ION BRENDA [facility]CCABE [facility] AC Oct 19, 2022 RX22MB [id number] [phone] WILLIS,LAVELLE AEL SPOUSE [place] PRESCRIPT ION [place] Oct 19, 2022 RX22MA [id number] WILLIS, SPOUSE CAREMARK PRESCRIPT ION RX Oct 19, 2022 [id number] [id number] WILLIS,MAR JUDITH SPOUSE [place] PRESCRIPT ION RX22M B Oct 19, 2022 RX22MB [id number] WILLIS,MAR JUDITH SPOUSE [place] ([id number]) PRESCRIPT ION [place] OF [place] Oct 19, 2022 RX22MB [id number] [phone] WILLIS,MAR JUDITH SPOUSE [place] BC[place] ([facility] CE ORGANIZ BRENDA MCCABE [facility] AC Apr 18, 2018 [id number] WILLIS,EDILBERTO SOTELOZA SPOUSE [employer] PRESCRIPT ION [place] 2018 L4TA [id number] WILLIS,EDILBERTO JUDITH SPOUSE [employer] ([id number]) PRESCRIPT ION Apr 18, 2018 L4TA [id number] WILLSI,EDILBERTO JUDITH SPOUSE [employer] ([id number]) PRESCRIPT ION L4TA* Apr 18, 2020 L4TA [id number] WILLIS,EDILBERTO PALAFOXA SPOUSE [employer] S[employer]TS ([id number]) PRESCRIPT ION L4TA* Apr 18, 2018 L4TA [id number] WILLIS,EDILBERTO PALAFOXA SPOUSE [employer] S[employer]TS ([id number]) PRESCRIPT ION Apr 18, 2018 L4TA [id number] WILLIS,EDILBERTO SOTELOZA SPOUSE [employer] ([id number]) PRESCRIPT ION Apr 18, 2018 L4TA [id number] WILLIS,EDILBERTO SOTELOZA SPOUSE [employer] ([id number]) PRESCRIPT ION L4TA Apr 18, 2018 L4TA [id number] WILLIS,EDILBERTO WONG SPOUSE EXPRESS S[employer]TS-MINOR BROGATION PRESCRIPT ION [place]BS OF [place] Apr 18, 2020 L4TA [id number] WILLIS,EDILBERTO SOTELOZA SPOUSE [place] [facility]ALTH [facility] CE ORGANIZAT ION W/OUT OF NETWORK BENEFITS [facility] ACT Apr 18, 2018 [id number] WILLISEDILBERTO SPOUSE HIG[place] BCBS [facility] (BLUECAR) [facility]ALTH [facility] CE ORGANIZAT ION [facility] AC Apr 18, 2018 [phone] WILLIS,EDILBERTO WONG SPOUSE MEDICARE (WNR) MEDICARE (M) PART A Mar 19, 1990 PART A [id number] WILLISLAVELLE AEL PATIENT MEDICARE (WNR) MEDICARE (M) PART A Mar 19, 1990 PART A [id number] WILLIS,LAVELLE AEL PATIENT MEDICARE (WNR) MEDICARE (M) PART A Mar 19, 1990 PART A [id number] WILLIS,LAVELLE AEL PATIENT MEDICARE (WNR) MEDICARE (M) PART A Mar 19, 1990 PART A [id number] WILLIS,LAVELLE AEL PATIENT MEDICARE (WNR) MEDICARE (M) PART A Mar 19, 1990 PART A [id number] [phone] WILLIS,LAVELLE AEL PATIENT MEDICARE (WNR) MEDICARE (M) PART A Mar 19, 1990 PART A [id number] WILLIS,LAVELLE AEL PATIENT MEDICARE (WNR) MEDICARE (M) PART A Mar 19, 1990 PART A [id number] WILLIS,LAVELLE AEL PATIENT MEDICARE (WNR) MEDICARE (M) PART A Mar 19, 1990 PART A [id number] WILLIS,LAVELLE AEL PATIENT MEDICARE (WNR) MEDICARE (M) PART A Mar 19, 1990 PART A [id number] WILLIS,LAVELLE AEL PATIENT MEDICARE (WNR) MEDICARE (M) PART A Mar 19, 1990 PART A [id number] WILLIS,LAVELLE AEL PATIENT MEDICARE (WNR) MEDICARE (M) PART A Mar 19, 1990 PART A [id number] [phone] WILLIS,LAVELLE AEL PATIENT Selected Encounter This section includes the information on record at [place] for the Encounter. Date/Time Encounter Type Encounter Description Reason Pro vider Source Jul 03, 2024 12:00 AM Outpatient Encounter EVENT (HISTORICAL) IHE Encounter Template Text not used by [place] Plan of Treatment: Future Appointments (+ 6 [...] 20 appointments. The data comes from all [facility]. Appointment Date/Time Appointment Type Appointme nt Facility Name Jul 08, 2024 10:30 AM AMBULATORY - MEDICINE [place] [facility] Jul 13, 2024 09:30 AM AMBULATORY - MEDICINE [place] [facility] Aug 12, 2024 09:30 AM AMBULATORY - MEDICINE [place] C [place] [facility] Aug 22, 2024 09:00 AM AMBULATORY - MEDICINE [place] C [place] [facility] Sep 21, 2024 09:00 AM AM[facility]UL[facility]ORY - [facility]ICINE [facility] [place] [facility] Sep 21, 2024 10:00 AM AMBULATORY MEDICINE IN C [place] [facility] Nov 28, 2024 09:30 AM [facility]UL[facility]ORY - [facility]ICINE [facility] Dec 02, 2024 08:30 AM AMBULATORY - MEDICINE [facility]L [facility] Active, Pending, and Scheduled Orders This section includes a listing of several types of active, pending, and scheduled orders, including clinic medications orders, diagnostic test orders, procedure orders and consult orders; where the start date of the order is 45 days before the date of the Encounter or 45 days after the date of theEncounter. The data comes from all [facility]. Test Date/Time Test Type Test Details Facility Name Jul 13, 2024 09:58 AM Consult Order PODIATRY/N HM OUTPT Cons Patient Registration Supervisor's Choice [facility] Immunizations: All administered on the encounter date This section contains immunizations associated to the Encounter. Immunization Series Date Issued Reaction Comments INFLUENZA, UNSPECIFIED FORMULATION Jul 03, 2024 Social History: Smoking Status (Most current) and Tobacco Use (All prior to encounter date) This section includes the most current, and the historical, smoking and tobacco- related health factors from the [place] facility where the Encounter took place. Current Smoking Status This section includes the most current smoking, or tobacco-related health factor, from the [place] facility where the Encounter took place. Date/Time Current Smoking Status Kerrie shannon Nov 27, 2023 11:00 AM VA-TOBACCO FORMER USER [facility] Tobacco Use History This section includes a history of the smoking, or tobacco-related health factors, that were collected on or before the date of the Encounter. The data comes from the [place] facility where the Encounter took place. Date/Time Smoking Status/Tobac co Use Comment Facility Nov 27, 2023 11:00 AM VA-TOBACCO QUIT 15 YRS OR MORE [facility] Dec 02, 2022 08:00 AM [facility] Dec 02, 2022 08:00 AM VA-TOBACCO QUIT 15 YRS OR MORE [facility] Nov 05, 2021 10:30 AM VA-TOBACCO FORMER USER [facility] Nov 05, 2021 10:30 AM [place]-TOBACCO QUIT 1 TO < 5 YRS [facility] Sep 14, 2020 02:00 PM [facility]ACCO [facility] Sep 14, 2020 02:00 PM VA-TOBACCO QUIT 5 TO < 15 YRS [facility] [place] [facility] Jan 22, 2018 03:40 PM QUIT TOBACCO USE > 7 YEARS AGO [facility] Jun 04, 2016 02:01 PM CURRENT SMOKER been smoking pass 20 yrs [facility] Jun 04, 2016 02:01 PM V1-PT DECLINES REF TO TOBACCO CESS PRGM [facility] Jun 04, 2016 02:01 PM V1-PT THINKING ABOUT QUIT [facility]ACCO [facility] Jul 18, 2014 03:31 PM V1-PT DECLINES REF TO TOBACCO CESS [facility] Jul 18, 2014 03:31 PM V1-PT DECLINES TOBACCO CESSATION MEDS [facility] Jul 18, 2014 03:31 PM V1-PT NOT INTERESTED IN QUIT TOBACCO USE [facility] Jan 09, 2014 10:43 AM CURRENT SMOKER pt smokes 1 pk of cigarettes per day. [facility] Jan 09, 2014 10:43 AM V1-PT THINKING ABOUT QUIT TOBACCO USE [facility] Aug 28, 2003 10:47 AM CURRENT SMOKER one pack q 6 days - he has cut down from 3 PPD. He is in the process of quitting [facility]
--- OUTSIDE RECORDS SUMMARY | 2024-11-01 08:04 | XMS_ITS | Encounter Summary ---
Author Name [facility] [place] [facility] [place] Address [address] [place] [address] Care Team Providers Care Contact Lens Manufacturer Name Role Phone ELIZABET ROBINS Primary Care [...] [facility] CE ORGANIZ [facility] AC Apr 18, 2018 [id number] WILLIS,MAR JUDITH SPOUSE ANTHEM BCBS OF [place] ([place]ARD) [facility] CE ORGANIZ BRENDA [facility] Apr 18, 2018 [id number] [phone] WILLIS,MAR JUDITH SPOUSE BCBS [facility] ORGANIZ [facility] E Apr 18, 2018 [id number] WILLIS,MAR JUDITH SPOUSE BCBS OF [facility] CE ORGANIZ [facility] Apr 18, 2018 [id number] WILLIS,MAR JUDITH PATIENT BCBS OF [facility] CE ORGANIZ BRENDA MCCABE [facility] Apr 18, 2018 [id number] WILLIS,MAR JUDITH SPOUSE [place] OF [place] PREFERRED PROVIDER ORGANIZAT ION (PPO) BRENDA MCCABE [facility] AC Apr 18, 2018 [phone] WILLIS,MAR JUDITH SPOUSE BCBS OF [facility] CE ORGANIZ BRENDA MCCABE [facility] ACT Apr 18, 2018 [id number] WILLIS,MAR JUDITH SPOUSE BCBS OF [facility] CE ORGANIZ BRENDA MCCABE [facility] AC Apr 18, 2018 [id number] WILLIS,MAR JUDITH SPOUSE CAREMARK PRESCRIPT ION RX22M B Oct 19, 2022 RX22MB [phone] WILLIS,MAR JUDITH SPOUSE [place] PRESCRIPT ION [place] OF [place] Oct 19, 2022 RX22MA [id number] WILLIS, SPOUSE CAREMARK PRESCRIPT ION RX22M A Oct 19, 2022 RX22MA [id number] WILLIS,LAVELLE AEL PATIENT CAREMARK PRESCRIPT ION RX22M B Oct 19, 2022 RX22MB [id number] WILLIS,LAVELLE AEL PATIENT CAREMARK PRESCRIPT ION BRENDA MCCABE [facility] AC Oct 19, 2022 RX22MB [id number] [phone] WILLIS,LAVELLE AEL SPOUSE CAREMARK PRESCRIPT ION RX Oct 19, 2022 RX22MB [id number] [phone] WILLIS,MAR JUDITH SPOUSE [place] ([id number]) PRESCRIPT ION [place] OF [place] Oct 19, 2022 [id number] WILLIS,MAR JUDITH SPOUSE [place] BCBS ([facility] CE ORGANIZ BRENDA MCCABE [facility] AC Apr 18, 2018 [id number] WILLIS,EDILBERTO SOTELOZA SPOUSE EXPRESS [employer] PRESCRIPT ION [place]BS [place] 2018 L4TA [id number] WILLIS,EDILBERTO JUDITH SPOUSE EXPRESS SCRIPTS ([id number]) PRESCRIPT ION Apr 18, 2018 L4TA [id number] WILLIS,EDILBERTO JUDITH SPOUSE EXPRESS SCRIPTS ([id number]) PRESCRIPT ION L4TA* Apr 18, 2020 L4TA [id number] WILLIS,EDILBERTO PALAFOXA SPOUSE EXPRESS SCRIPTS ([id number]) PRESCRIPT ION L4TA* Apr 18, 2018 L4TA [id number] WILLIS,EDILBERTO PALAFOXA SPOUSE EXPRESS SCRIPTS ([id number]) PRESCRIPT ION Apr 18, 2018 L4TA [id number] WILLIS,EDILBERTO SOTELOZA SPOUSE EXPRESS SCRIPTS ([id number]) PRESCRIPT ION Apr 18, 2018 L4TA [id number] WILLIS,EDILBERTO SOTELOZA SPOUSE EXPRESS SCRIPTS ([id number]) PRESCRIPT ION L4TA Apr 18, 2018 L4TA [id number] WILLIS,EDILBERTO WONG SPOUSE EXPRESS SCRIPTS-MINOR BROGATION PRESCRIPT ION BCBS OF [place] Apr 18, 2020 L4TA [id number] WILLIS,EDILBERTO SOTELOZA SPOUSE [facility] CE ORGANIZAT ION W/OUT OF NETWORK BENEFITS [facility] ACT Apr 18, 2018 [id number] [phone] WILLISEDILBERTO SPOUSE [place] BCBS [facility] ([facility]) [facility] CE ORGANIZAT ION [facility] AC Apr 18, 2018 [id number] WILLIS,EDILBERTO WONG SPOUSE MEDICARE (WNR) MEDICARE (M) PART A Mar 19, 1990 PART A [id number] WILLIS,LAVELLE AEL PATIENT MEDICARE (WNR) MEDICARE (M) PART A Mar 19, 1990 PART A [id number] [phone] WILLIS,LAVELLE AEL PATIENT MEDICARE (WNR) MEDICARE (M) PART A Mar 19, 1990 PART A [id number] WILLIS,LAVELLE AEL PATIENT MEDICARE (WNR) MEDICARE (M) PART A Mar 19, 1990 PART A [id number] WILLIS,LAVELLE AEL PATIENT MEDICARE (WNR) MEDICARE (M) PART A Mar 19, 1990 PART A [id number] WILLIS,LAVELLE AEL PATIENT MEDICARE (WNR) MEDICARE (M) PART A Mar 19, 1990 PART A [id number] WILLIS,LAVELLE AEL PATIENT MEDICARE (WNR) MEDICARE (M) PART A Mar 19, 1990 PART A [id number] [phone] WILLIS,LAVELLE AEL PATIENT MEDICARE (WNR) MEDICARE (M) PART A Mar 19, 1990 PART A [id number] [phone] WILLIS,LAVELLE AEL PATIENT MEDICARE (WNR) MEDICARE (M) PART A Mar 19, 1990 PART A [id number] WILLIS,LAVELLE AEL PATIENT MEDICARE (WNR) MEDICARE (M) PART A Mar 19, 1990 PART A [id number] WILLIS,LAVELLE AEL PATIENT MEDICARE (WNR) MEDICARE (M) PART A Mar 19, 1990 PART A [id number] WILLIS,LAVELLE AEL PATIENT Selected Encounter This section includes the information on [place] at [place] for the Encounter. Date/Time Encounter Type Encounter Description Reason Pro vider Source Jun 26, 2024 12:00 AM Outpatient Encounter EVENT (HISTORICAL) [...] from all [facility]. Appointment Date/Time Appointment Type Appointme nt Facility Name Jun 28, 2024 11:30 AM AMBULATORY - [place]ICINE [place] [facility] Jul 08, 2024 10:30 AM AMBULATORY [place]ICINE [place] [facility] Jul 13, 2024 09:30 AM AMBULATORY - [place]ICINE [place] [facility] Aug 12, 2024 09:30 AM AMBULATORY - MEDICINE [place] [facility] Aug 22, 2024 09:00 AM AMBULATORY - MEDICINE [place] [facility] Sep 21, 2024 09:00 AM AMBULATORY - MEDICINE [place] [facility] Sep 21, 2024 10:00 AM AMBULATORY - MEDICINE [place] [facility] Nov 28, 2024 09:30 AM AMBULATORY - MEDICINE [place] [facility] Dec 02, 2024 08:30 AM AMBULATORY - [place]ICINE [place] [facility] Active, [...] from all [facility]. 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 Ordering Provider: LINDA PERSON Report Released Date/Time: Jun 01, 2024 11:53 AM Reporting Lab: [facility] [address] [facility] [facility] [address] Performing Lab: [facility] [address] [facility] [address] MICROALBUMIN/C REATININE RATIO 10.8 mg/g 0-29.9 MICROALBUMIN,Q UANTITATIVE 1.1 mg/dL RR UNAVAIL CREATININE URINE 101.63 mg/dL Jun 01, 2024 10:38 AM [facility] HEMOGLOBIN A1C PANEL Specimen Type: BLOOD [...] May 30, 2024 10:29 AM Reporting Lab: [address] [address] Performing Lab: [address] [address] HEMOGLOBIN A1C 5.8 H 4.0-5.6 Jun 01, 2024 10:38 AM [facility] BASIC METABOLIC PANEL (non-fasting) Specimen Type: SERUM No comment entered. Ordering Provider: LINDA PERSON Report Released Date/Time: May 30, 2024 10:29 AM Reporting Lab: [facility] [address] [facility] [address] Performing Lab: [address] [address] UREA NITROGEN 13 mg/dL 7-25 GLUCOSE 115 mg/dL H 65-100 SODIUM 140 mmol/L 135-145 POTASSIUM 4.3 mmol/L 3.5-5.0 CHLORIDE 107 mmol/L 100-110 CO2 21 meq/L 20-30 CREATININE, Serum 0.84 mg/dL 0.50-1.40 eGFR(CKD-EPI 2020) >90 mL/min >60 Jun 01, 2024 10:38 AM [facility] LIPID PANEL, NON FASTING Specimen Type: SERUM No comment entered. Ordering Provider: LINDA PERSON Report Released Date/Time: Jun 01, 2024 10:12 AM Reporting Lab: [facility] [address] [address] Performing Lab: [facility] [address] [address] CHOLESTEROL 126 mg/dL TRIGLYCERIDE 114 mg/dL 0-150 [...] Enrique sotelo Nov 27, 2023 11:00 AM [place]-TOBACCO QUIT 15 YRS OR MORE [facility] Tobacco Use History This section includes a history of the smoking, or tobacco-related health factors, that were collected on or before the date of the Encounter. The data comes from the [place] facility where the Encounter took place. Date/Time Smoking Status/Tobac co Use Comment Facility Nov 27, 2023 11:00 AM VA-TOBACCO QUIT 15 YRS OR MORE [place] [facility] Dec 02, 2022 08:00 AM VA-TOBACCO FORMER USER [place] [facility] Dec 02, 2022 08:00 AM VA-TOBACCO QUIT 15 YRS OR MORE [place] [facility] Nov 05, 2021 10:30 AM VA-TOBACCO FORMER USER [place] [facility] Nov 05, 2021 10:30 AM VA-TOBACCO QUIT 1 TO < 5 YRS [place] [facility] Sep 14, 2020 02:00 PM VA-TOBACCO FORMER USER [place] [facility] Sep 14, 2020 02:00 PM VA-TOBACCO QUIT 5 TO < 15 YRS [facility] Jan 22, 2018 03:40 PM QUIT TOBACCO USE > 7 YEARS AGO [facility] Jun 04, 2016 02:01 PM CURRENT SMOKER been smoking pass 20 yrs [facility] Jun 04, 2016 02:01 PM V1-PT DECLINES REF TO TOBACCO CESS PRGM [facility] Jun 04, 2016 02:01 PM V1-PT THINKING ABOUT QUIT TOBACCO USE [facility] Jul 18, 2014 03:31 PM V1-PT DECLINES REF TO TOBACCO CESS PRGM [facility] Jul 18, 2014 03:31 PM V1-PT DECLINES TOBACCO CESSATION MEDS [facility] Jul 18, 2014 03:31 PM V1-PT NOT INTERESTED IN QUIT TOBACCO USE [facility] Jan 09, 2014 10:43 AM CURRENT SMOKER pt smokes 1 pk of cigarettes per day. [facility] Jan 09, 2014 10:43 AM V1-PT THINKING ABOUT QUIT TOBACCO USE [facility] Aug 28, 2003 10:47 AM CURRENT SMOKER one pack q 6 days - he has cut down from 3 PPD. He is in the process of quitting [facility] Encounter Notes: All associated encounter notes This section contains the clinical notes associated to the Encounter. Date/Time Encounter Note(s) Provider Source Jun 26, 2024 12:00 AM NONVA NOTE: LOCAL TITLE: NON-VA HOSPITALIZATIONS/ER STANDARD TITLE: NONVA NOTE DATE OF NOTE: JUN 26, 2024 ENTRY DATE: JUL 08, 2024@12:05:47 AUTHOR: DANYEL BARRETT EXP COSIGNER: URGENCY: STATUS: COMPLETED VistA Imaging - Scanned Document SCANNED DOCUMENT SIGNATURE NOT REQUIRED Electronically Filed: 07/08/2024 by: DANYEL BARRETT LICENSED PRACTICAL NURSE DANYEL BARRETT [facility]
--- OUTSIDE RECORDS SUMMARY | 2024-11-01 08:04 | XMS_ITS | Encounter Summary ---
Author Name [facility] [place] [facility] [place] [facility] [place] Address [address] [place] [address] Care Team Providers Care Battery Assembler Name Role Phone ELIZABET ROBINS Primary Care [...] Patient's Relationship to Policy Paul [facility] CE ORGANIZ [facility] AC Apr 18, 2018 [id number] WILLIS,MAR JUDITH SPOUSE ANTHEM [place] OF [place] (BLUECARD) [facility] CE ORGANIZ BRENDA [facility] Apr 18, 2018 [id number] WILLIS,MAR JUDITH SPOUSE BCBS [facility] CE ORGANIZ [facility] SHARE ACTIV E Apr 18, 2018 [phone] WILLIS,MAR JUDITH SPOUSE BCBS OF [facility] CE ORGANIZ [facility] Apr 18, 2018 [id number] WILLIS,MAR JUDITH PATIENT BCBS OF [facility] CE ORGANIZ BRENDA MCCABE [facility] Apr 18, 2018 [id number] WILLIS,MAR JUDITH SPOUSE [place] OF [place] PREFERRED PROVIDER ORGANIZAT ION (PPO) BRENDA MCCABE [facility] AC Apr 18, 2018 [id number] WILLIS,MAR JUDITH SPOUSE BCBS OF [facility] CE ORGANIZ BRENDA MCCABE [facility] ACT Apr 18, 2018 [id number] WILLIS,MAR JUDITH SPOUSE BCBS OF [facility] CE ORGANIZ BRENDA MCCABE [facility] AC Apr 18, 2018 [id number] [phone] WILLIS,MAR JUDITH SPOUSE [place] PRESCRIPT ION RX22M B Oct 19, 2022 [id number] [phone] WILLIS,MAR JUDITH SPOUSE [place] PRESCRIPT ION RX22M A Oct 19, 2022 RX22MA [id number] WILLIS,LAVELLE AEL PATIENT [place] PRESCRIPT ION RX22M B Oct 19, 2022 [id number] [id number] WILLIS,LAVELLE AEL PATIENT [place] PRESCRIPT [place] Oct 19, 2022 RX22MA [id number] [phone] WILLIS, SPOUSE [place] PRESCRIPT ION RX Oct 19, 2022 [id number] WILLIS,MAR JUDITH SPOUSE [place] PRESCRIPT ION BRENDA MCCABE [facility] AC Oct 19, 2022 [id number] WILLIS,LAVELLE AEL SPOUSE [place] ([id number]) PRESCRIPT [place] Oct 19, 2022 [id number] WILLIS,MAR JUDITH SPOUSE [place] ([facility] CE ORGANIZ BRENDA MCCABE [facility] AC Apr 18, 2018 [id number] WILLISEDILBERTO SPOUSE [place] PRESCRIPT I[place] 2018 L4TA [id number] WILLISEDILBERTO SPOUSE [employer] ([id number]) PRESCRIPT ION Apr 18, 2018 L4TA [id number] WILLIS,EDILBERTO WONG SPOUSE [employer] ([id number]) PRESCRIPT ION L4TA* Apr 18, 2020 L4TA [id number] WILLISEDILBERTOA SPOUSE [employer] ([id number]) PRESCRIPT ION L4TA Apr 18, 2018 L4TA [id number] WILLISEDILBERTO SPOUSE [employer] ([id number]) PRESCRIPT ION Apr 18, 2018 L4TA [id number] WILLISEDILBERTO SPOUSE [employer] ([id number]) PRESCRIPT ION L4TA* Apr 18, 2018 L4TA [id number] WILLISEDILBERTO Lynn SPOUSE [employer] ([id number]) PRESCRIPT ION Apr 18, 2018 L4TA [id number] EDILBERTO PEDRO SPOUSE [employer]-MINOR BROGATION PRESCRIPT I[place] Apr 18, 2020 L4TA [id number] WILLISEDILBERTO SPOUSE [facility] CE ORGANIZAT ION W/OUT OF NETWORK BENEFITS WITRISTEN [facility] RSD ACT Apr 18, 2018 [id number] EDILBERTO PEDRO SPOUSE [place] BCBS [facility] (BLUECAR) [facility] CE ORGANIZAT ION [facility] AC Apr 18, 2018 [id number] [phone] EDILBERTO PEDRO SPOUSE MEDICARE (WNR) MEDICARE (M) PART A Mar 19, 1990 PART A [id number] WILLISLAVELLE AEL PATIENT MEDICARE (WNR) MEDICARE (M) PART A Mar 19, 1990 PART A [id number] WILLIS,LAVELLE AEL PATIENT MEDICARE (WNR) MEDICARE (M) PART A Mar 19, 1990 PART A [id number] [phone] WILLIS,LAVELLE AEL PATIENT MEDICARE (WNR) MEDICARE (M) PART A Mar 19, 1990 PART A [id number] WILLIS,LAVELLE AEL PATIENT MEDICARE (WNR) MEDICARE (M) PART A Mar 19, 1990 PART A [id number] [phone] WILLIS,LAVELLE AEL PATIENT MEDICARE (WNR) MEDICARE (M) PART A Mar 19, 1990 PART A [id number] WILLIS,LAVELLE AEL PATIENT MEDICARE (WNR) MEDICARE (M) PART A Mar 19, 1990 PART A [id number] WILLIS,LAVELLE AEL PATIENT MEDICARE (WNR) MEDICARE (M) PART A Mar 19, 1990 PART A [id number] WILLIS,LAVELLE AEL PATIENT MEDICARE (WNR) MEDICARE (M) PART A Mar 19, 1990 PART A [id number] WILLIS,LAVELLE AEL PATIENT MEDICARE (WNR) MEDICARE (M) PART A Mar 19, 1990 PART A [id number] WILLIS,LAVELLE AEL PATIENT MEDICARE (WNR) MEDICARE (M) PART A Mar 19, 1990 PART A [id number] WILLIS,LAVELLE AEL PATIENT Selected Encounter This section includes the information on record at CT for the Encounter. Date/Time Encounter Type Encounter Description Reason Pro vider Source Jul 06, 2024 04:12 PM Outpatient Encounter COMMUNITY CARE CONSULT IHE [...] 20 appointments. The data comes from all [facility]. Appointment Date/Time Appointment Type Appointme nt Facility Name Jul 08, 2024 10:30 AM AMBULATORY - MEDICINE [facility] [place] [facility] Jul 13, 2024 09:30 AM AMBULATORY - MEDICINE [facility] [place] [facility] Aug 12, 2024 09:30 AM AMBULATORY - MEDICINE [facility] [place] [facility] Aug 22, 2024 09:00 AM AMBULATORY - MEDICINE [facility] [place] [facility] Sep 21, 2024 09:00 AM AMBULATORY - MEDICINE [facility] [place] [facility] Sep 21, 2024 10:00 AM AMBULATORY - MEDICINE [facility] [place] [facility] Nov 28, 2024 09:30 AM AMBULATORY - MEDICINE [facility] [place] [facility] Dec 02, 2024 08:30 AM AMBULATORY - MEDICINE [facility] Active, Pending, and Scheduled Orders This section includes a listing of several types of active, pending, and scheduled orders, including clinic medications orders, diagnostic test orders, procedure orders and consult orders; where the start date of the order is 45 days before the date of the Encounter or 45 days after the date of theEncounter. The data comes from all [facility]. Test Date/Time Test Type Test Details Facility Name Jul 13, 2024 09:58 AM Consult Order PODIATRY/N HM OUTPT Cons Bus System Operator's Choice [facility] Social History: Smoking Status (Most [...] 11:00 AM VA-TOBACCO [facility] Tobacco Use History This section includes a history of the smoking, or tobacco-related health factors, that were collected on or before the date of the Encounter. The data comes from the [place] facility where the Encounter took place. Date/Time Smoking Status/Tobac co Use Comment Facility Nov 27, 2023 11:00 AM VA-TOBACCO QUIT 15 YRS OR [facility] Dec 02, 2022 08:00 AM VA-[facility]BACCO [facility] Dec 02, 2022 08:00 AM VA-TOBACCO QUIT 15 YRS OR MORE [facility] Nov 05, 2021 10:30 AM VA-TOBACCO [facility] Nov 05, 2021 10:30 AM VA-TOBACCO QUIT 1 TO < 5 Y[facility] Sep 14, 2020 02:00 PM [facility] Sep 14, 2020 02:00 PM VA-TOBACCO QUIT 5 TO < [facility] [address] [facility] Jan 22, 2018 03:40 PM QUIT TOBACCO USE > 7 YEARS A[facility] Jun 04, 2016 02:01 PM CURRENT SMOKER been smoking pass [facility] Jun 04, 2016 02:01 PM V1-PT DECLINES REF TO TOBACCO CESS [facility] Jun 04, 2016 02:01 PM V1-PT THINKING ABOUT QUIT TOBACCO [facility] Jul 18, 2014 03:31 PM V1-PT DECLINES REF TO TOBACCO CESS [facility] Jul 18, 2014 03:31 PM V1-PT DECLINES TOBACCO CESSATION [facility] Jul 18, 2014 03:31 PM V1-PT NOT INTERESTED IN QUIT [facility]ACCO [facility] Jan 09, 2014 10:43 AM CURRENT SMOKER pt smokes 1 pk of cigarettes per day. [facility] [place] [facility] Jan 09, 2014 10:43 AM V1-PT THINKING ABOUT QUIT [facility]ACCO [facility] Aug 28, 2003 10:47 AM CURRENT SMOKER one pack q 6 days - he has cut down from 3 PPD. He is in the process of quitting [facility] Encounter Notes: All associated encounter notes This section contains the clinical notes associated to the Encounter. Date/Time Encounter Note(s) Provider Source Jul 06, 2024 04:12 PM NONVA NOTE: LOCAL TITLE: [facility] SELF PRESENTING CARE COORD PLAN STANDARD TITLE: NONVA NOTE DATE OF NOTE: JUL 06, 2024@16:12 ENTRY DATE: JUL 06, 2024@16:12:25 AUTHOR: SONNY BOGGS EXP COSIGNER: URGENCY: STATUS: COMPLETED Emergency Notification Intake Date Presenting to the Facility: Jun Method of Contact: Notified from ECR worklist Notification ID: [id number] [facility] Referral #: [id number] [facility] Name: Hospital: [facility] Address: City: [place] State: [place] Zip Code: Phone : [facility] Point of Contact: Name: Messi Phone: Chief complaint: G40.909 Primary Diagnosis: Disposition Admitted Route of Admission: ER Date of Admission: Jun Admitting Diagnosis: G40.909 Community Care Provider: Becca Level of Care: /gaetano/ SONNY RITCHIE Signed: 07/06/2024 16:13 Receipt Acknowledged By: 07/08/2024 09:14 /es/ CIERRA GREGORY Nurse Practitioner 08/10/2024 15:20 /es/ Melonie RUFF,RN,[facility] TRANSFER/TRAVELING COORDINATOR 07/07/2024 07:59 /es/ DEBBIE GORMAN, MSN, RN, CNL PRIMARY CARE TEAM NURSE 07/07/2024 08:12 /es/ Marcia Maurer, health social work professor Staff Nurse SONNY BOGGS [place]
--- OUTSIDE RECORDS SUMMARY | 2024-11-01 08:04 | XMS_ITS ---
Author Name [facility] [place] Organization [facility] [place] [facility] [place] Address [address] [place] [address] Care Team Providers Care Supervisor [employer] Name Role Phone ELIZABET ROBINS Primary Care [...] Policy Paul [facility] CE ORGANIZ [facility] AC Apr 18, 2018 [id number] WILLIS,MAR JUDITH SPOUSE ANTHEM BCBS OF [place] (BLUECARD) [facility] CE ORGANIZ [facility] Apr 18, 2018 [id number] WILLIS,MAR JUDITH SPOUSE BCBS [facility] CE ORGANIZ [facility] SHARE ACTIV E Apr 18, 2018 [id number] [phone] WILLIS,MAR JUDITH SPOUSE BCBS OF [facility] CE ORGANIZ [facility] Apr 18, 2018 [id number] [phone] WILLIS,MAR JUDITH PATIENT BCBS OF [facility] CE ORGANIZ [facility] Apr 18, 2018 [id number] WILLIS,MAR JUDITH SPOUSE BCBS OF [place] PREFERRED PROVIDER ORGANIZAT ION (PPO) [facility] AC Apr 18, 2018 [id number] WILLIS,MAR JUDITH SPOUSE BCBS OF [facility] CE ORGANIZ [facility] ACT Apr 18, 2018 [id number] WILLIS,MAR JUDITH SPOUSE BCBS OF [facility] CE ORGANIZ [facility] AC Apr 18, 2018 [id number] [phone] WILLIS,MAR JUDITH SPOUSE [place] PRESCRIPT ION RX22M A Oct 19, 2022 RX22MA [id number] WILLIS,LAVELLE AEL PATIENT [place] PRESCRIPT ION RX22M B Oct 19, 2022 [id number] WILLIS,LAVELLE AEL PATIENT [place] PRESCRIPT [place] Oct 19, 2022 RX22MA [id number] WILLIS, SPOUSE CAREMARK PRESCRIPT ION RX22M B Oct 19, 2022 RX22MB [id number] [phone] WILLIS,MAR JUDITH SPOUSE [place] PRESCRIPT ION RX Oct 19, 2022 RX22MB [id number] WILLIS,MAR JUDITH SPOUSE CAREMARK PRESCRIPT ION [facility] AC Oct 19, 2022 [id number] [phone] WILLIS,LAVELLE AEL SPOUSE [place] ([id number]) PRESCRIPT I[place] Oct 19, 2022 [id number] [phone] WILLIS,MAR JUDITH SPOUSE [place] BCBS ([facility] CE ORGANIZ [facility] AC Apr 18, 2018 [id number] WILLIS,EDILBERTO SOTELOZA SPOUSE [employer] [place] PRESCRIPT [place] 2018 L4TA [id number] WILLIS,EDILBERTO SOTELOZA SPOUSE [employer] ([id number]) PRESCRIPT ION Apr 18, 2018 L4TA [id number] WILLIS,EDILBERTO SOTELOZA SPOUSE [employer] ([id number]) PRESCRIPT ION L4TA* Apr 18, 2020 L4TA [id number] WILLIS,EDILBERTO PALAFOXA SPOUSE [employer] ([id number]) PRESCRIPT ION L4TA* Apr 18, 2018 L4TA [id number] WILLIS,EDILBERTO PALAFOXA SPOUSE [employer] ([id number]) PRESCRIPT ION L4TA Apr 18, 2018 L4TA [id number] WILLIS,EDILBERTO SOTELOZA SPOUSE [employer] ([id number]) PRESCRIPT ION Apr 18, 2018 L4TA [id number] 32 WILLISEDILBERTO SPOUSE [employer] ([id number]) PRESCRIPT ION Apr 18, 2018 L4TA [id number] WILLIS,EDILBERTO WONG SPOUSE [employer]-MINOR BROGATION PRESCRIPT I[place] Apr 18, 2020 L4TA [id number] WILLIS,EDILBERTO WONG SPOUSE [facility]PS [facility] CE ORGANIZAT ION W/OUT OF NETWORK BENEFITS [facility] ACT Apr 18, 2018 [phone] WILLISEDILBERTO SPOUSE [place] BCBS [facility] (BLUECARD) [facility] CE ORGANIZAT ION [facility] AC Apr 18, 2018 [phone] WILLISEDILBERTO SPOUSE MEDICARE (WNR) MEDICARE (M) PART A Mar 19, 1990 PART A [id number] WILLISLAVELLE AEL PATIENT MEDICARE (WNR) MEDICARE (M) PART A Mar 19, 1990 PART A [id number] [phone] WILLIS,LAVELLE AEL PATIENT MEDICARE (WNR) MEDICARE (M) PART A Mar 19, 1990 PART A [id number] WILLIS,LAVELLE AEL PATIENT MEDICARE (WNR) MEDICARE (M) PART A Mar 19, 1990 PART A [id number] WILLIS,LAVELLE AEL PATIENT MEDICARE (WNR) MEDICARE (M) PART A Mar 19, 1990 PART A [id number] WILLIS,LAVELLE AEL PATIENT MEDICARE (WNR) MEDICARE (M) PART A Mar 19, 1990 PART A [id number] WILLIS,LAVELLE AEL PATIENT MEDICARE (WNR) MEDICARE (M) PART A Mar 19, 1990 PART A [id number] [phone] WILLIS,LAVELLE AEL PATIENT MEDICARE (WNR) MEDICARE (M) PART A Mar 19, 1990 PART A [id number] [phone] WILLIS,LAVELLE AEL PATIENT MEDICARE (WNR) MEDICARE (M) PART A Mar 19, 1990 PART A [id number] [phone] WILLIS,LAVELLE AEL PATIENT MEDICARE (WNR) MEDICARE (M) PART A Mar 19, 1990 PART A [id number] WILLIS,LAVELLE AEL PATIENT MEDICARE (WNR) MEDICARE (M) PART A Mar 19, 1990 PART A [id number] WILLIS,LAVELLE AEL PATIENT Selected Encounter This section includes the information on record at [place] for the Encounter. Date/Time Encounter Type Encounter Description Reason Provider Source Jul 08, 2024 10:30 AM OFFICE O/P EST MOD 30 MIN GENERAL INTERNAL MEDICINE ICD-10-CM R19.7 Diarrhea, unspecified ENRIQUE MACARIO Encounter Template Text not used by [place] Assessments - Encounter Diagnoses This section includes the primary and secondary diagnoses documented for the Encounter. Date/Time Primary/Secondary Diagnosis Diagnosis Name Provider Source Jul 25, 2024 10:43 AM PRIMARY Diarrhea, unspecified CATRACHITAENZONE-ADOLPH SUNDAYENRIQUE J [facility] Plan of Treatment: Future Appointments (+ 6 months) and Future Tests (+/- 45 days) The Plan of Treatment section includes future care activities for the patient from all [place] [facility]. This section includes future appointments and future orders which are active, pending or scheduled. Future Appointments This section includes appointments that were scheduled to occur 6 months from the date of the Encounter, up to a maximum of 20 appointments. The data comes from all [facility]. Appointment Date/Time Appointment Type Appointme nt Facility Name Jul 13, 2024 09:30 AM AMBULATORY MEDICINE [facility] Aug 12, 2024 09:30 AM AMBULATORY MEDICINE [facility] Aug 22, 2024 09:00 AM AMBULATORY MEDICINE [facility] [place] [facility] Sep 21, 2024 09:00 AM AMBULATORY MEDICINE [facility] [place] [place] [facility] Sep 21, 2024 10:00 AM AMBULATORY MEDICINE [facility] [place] [facility] Nov 28, 2024 09:30 AM AMBULATORY MEDICINE [facility] Dec 02, 2024 08:30 AM [facility] Active, Pending, and Scheduled Orders This section includes a listing of several types of active, pending, and scheduled orders, including clinic medications orders, diagnostic test orders, procedure orders and consult orders; where the start date of the order is 45 days before the date of the Encounter or 45 days after the date of theEncounter. The data comes from all [facility]. Test Date/Time Test Type Test Details Facility Name Jul 13, 2024 09:58 AM Consult Order PODIATRY/N HM OUTPT Cons Wrist Closer's Choice [facility] Social History: Smoking Status (Most current) [...] took place. Date/Time Current Smoking Status Comment [facility] Nov 27, 2023 11:00 AM VA-TOBACCO [facility] Tobacco Use History This section includes a history of the smoking, or tobacco-related health factors, that were collected on or before the date of the Encounter. The data comes from the [place] facility where the Encounter took place. Date/Time Smoking Status/Tobac co Use Comment Facility Nov 27, 2023 11:00 AM VA-TOBACCO QUIT 15 YRS OR MORE [place] [facility] [place] [facility] Dec 02, 2022 08:00 AM VA-TOBACCO FORMER USER [facility] [place] [facility] Dec 02, 2022 08:00 AM VA-TOBACCO QUIT 15 YRS OR MORE [place] [facility] [place] [facility] Nov 05, 2021 10:30 AM VA-TOBACCO FORMER USER [facility] Nov 05, 2021 10:30 AM VA-TOBACCO QUIT 1 TO < 5 YRS [facility] [place] [facility] Sep 14, 2020 02:00 PM VA-TOBACCO FORMER USER [facility] [place] [facility] Sep 14, 2020 02:00 PM VA-TOBACCO QUIT 5 TO < 15 YRS [facility] [place] [facility] Jan 22, 2018 03:40 PM QUIT TOBACCO USE > 7 YEARS AGO [place] [facility] [place] [facility] Jun 04, 2016 02:01 PM CURRENT SMOKER been smoking pass 20 yrs [facility] [place] [facility] Jun 04, 2016 02:01 PM V1-PT DECLINES [facility]F [facility] [place] [facility] Jun 04, 2016 02:01 PM V1-PT THINKING ABOUT QUIT TOBACCO USE [facility] [place] [facility] Jul 18, 2014 03:31 PM V1-PT DECLINES REF TO TOBACCO CESS PRGM [facility] [place] [facility] Jul 18, 2014 03:31 PM V1-PT DECLINES TOBACCO CESSATION MEDS [facility] Jul 18, 2014 03:31 PM V1-PT NOT INTERESTED IN QUIT TOBACCO USE [facility] Jan 09, 2014 10:43 AM CURRENT SMOKER pt smokes 1 pk of cigarettes per day. [facility] Jan 09, 2014 10:43 AM V1-PT THINKING ABOUT QUIT TOBACCO USE [facility] Aug 28, 2003 10:47 AM CURRENT SMOKER one pack q 6 days - he has cut down from 3 PPD. He is in the process of quitting [facility] Encounter Notes: All associated encounter notes This section contains the clinical notes associated to the Encounter. Date/Time Encounter Note(s) Provider Source Jul 11, 2024 08:23 AM ADDENDUM: LOCAL TITLE: Addendum STANDARD TITLE: ADDENDUM DATE OF NOTE: JUL 11, 2024@08:23:33 ENTRY DATE: JUL 11, 2024@08:23:34 AUTHOR: MARCIA MAURER COSIGNER: URGENCY: STATUS: COMPLETED Please offer Vet a PCP visit for post hospital DC f/u /gaetano/ Marcia Maurer RN Primary Care Staff Nurse Signed: 07/11/2024 08:23 Receipt Acknowledged By: 07/11/2024 08:42 /es/ THANH LUCAS Advanced Edge Cutter --- Original Document --- 07/08/24 TELE EMERGENCY CARE NOTE: This is a tele-emergency care visit to address acute/urgent issues. Definitive care on chronic medical issues will be deferred to routine Primary Care appointment/provider. Consult Origin: Referral from the Clinical Contact Center/Call Center Type of Visit: Video Visit: Telehealth Disclosure: Visit conducted by synchronous telehealth. Patient verbal consent obtained. Location/emergency number confirmed. Environment surveyed and all participants identified. Virtual conference room locked. Emergency contact information was obtained as follows: Patient's current address [address] [place] [phone] Patient's Phone Number:PATIENT PHONE - PHONE NUMBER [CELLULAR] - NONE FOUND Primary NOK: KATIE PEDRO: [address] [place], [place] [address] Secondary NOK: [address] PED[address] Relation: SISTER [address] [place], [place] [address] Subjective: Mr. Pedro is a 68 year old M [place] who presents to [facility] with c/o diarrhea x3 days. Recently hospitalized for seizures and d/c'd 07/03/24; had some med changes and has not had any seizures since being discharged. Discharged on - Valproic Acid 250mg 3 capsules BID - +had hard formed BM this AM. +bloating / gas Good PO hydration, fluids. Took Imodium yesterday with no further episodes of Diarrhea today. Denies: fever/chills, dysuria, hematuria, flank pain, malodorous urine, abd pain or tenderness, dizziness, CP, palp, vomiting. 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 Rosacea ([facility] 642510437) I82.622 Deep venous thrombosis of upper extremity ([facility] 318942496) N20.0 Nephrolithiasis ([facility] 57033249) E78.5 Hyperlipidemia ([facility] 48077080) N40.1 Lower urinary tract symptoms due to benign prostatic hypertrophy ([facility] [id number]) V16.42 Family history of prostate cancer ([facility] 428195975) F25.9 Schizoaffective disorder ([facility] 37285211) F10.21 Alcohol dependence ([facility] 78900909) 523.8 Periodontal Disease NEC (ICD-9-CM 523.8) 530.81 GERD (ICD-9-CM 530.81) R20.2 Facial paraesthesia ([facility] 86797601) 367.9 REFRACTION DISORDER NOS (ICD-9-CM 367.9) ALLERGIES/ADR: AKWA TEARS, DIFLUCAN, PHENYTOIN, FLUOROMETHOLONE, REFRESH TEARS, OXYCODONE LEVETIRACETAM Active Outpatient Medications (including Supplies): ACCU-CHEK GUIDE (GLUCOSE) TEST STRIP USE 1 STRIP TO TEST ACTIVE BLOOD SUGARS TWO TIMES A WEEK ALBUTEROL 3/IPRATROP 0.5MG/3ML INHL 3ML INHALE 1 VIAL ACTIVE (3ML) IN NEBULIZER EVERY 4 HOURS NEEDED FOR BRONCHOSPASM ALBUTEROL 90MCG (CFC-F) 200D ORAL INHL INHALE 2 PUFFS BY ACTIVE MOUTH EVERY 4 HOURS NEEDED FOR SHORTNESS OF BREATH ALCOHOL PREP PAD USE 1 PAD TOPICALLY TWICE A WEEK ACTIVE NEEDED TO CLEAN SKIN FOR INJECTION ETC AMLODIPINE BESYLATE 5MG TAB TAKE ONE TABLET BY MOUTH ONCE ACTIVE DAILY FOR BLOOD PRESSURE/HEART, DO NOT TAKE WITH GRAPEFRUIT JUICE ATORVASTATIN CALCIUM 80MG TAB TAKE ONE-HALF TABLET BY ACTIVE MOUTH AT BEDTIME FOR CHOLESTEROL DICLOFENAC NA 75MG EC TAB TAKE ONE TABLET BY MOUTH TWICE ACTIVE DAILY NEEDED FOR PAIN/INFLAMMATION DM 10/GUAIFENESN 100MG/5ML (AF & SF) LIQ TAKE 5 MLS (ONE ACTIVE TEASPOONFUL) BY MOUTH EVERY 6 HOURS NEEDED FOR COUGH FAMOTIDINE 20MG TAB TAKE ONE TABLET BY [...] BY MOUTH TWICE ACTIVE DAILY FOR DIABETES METRONIDAZOLE 0.75% TOP GEL APPLY MODERATE AMOUNT ACTIVE TOPICALLY TWICE DAILY FOR ACNE ROSACEA PEG 400 0.4%/PROP GLYCOL 0.3% OPH SOLN INSTILL 1 DROP INTO ACTIVE EACH EYE FOUR TIMES DAILY NEEDED DRY EYE SILDENAFIL CITRATE 25MG TAB TAKE ONE TABLET BY MOUTH ONCE ACTIVE DAILY FOR ERECTILE DYSFUNCTION TAKE 1 HOUR PRIOR TO SEXUAL ACTIVITY - Valproic Acid 250mg 3 capsules BID Non-VA MULTIVITAMIN/MINERALS CAP/TAB ONE CAP/TAB BY MOUTH ACTIVE ONCE DAILY Non-VA OTHER CAP/TAB THC BY MOUTH TWICE DAILY ACTIVE Current medications reviewed with patient/caregiver and reconciliation of medications related to today's visit completed, including non-VA medications and discrepancies, if identified, were addressed. Medication changes and the importance of medication management were reviewed with the patient/caregiver today based on individual needs. Patient/caregiver acknowledged understanding of instructions as stated. Objective: GENERAL: alert and appropriate, in no distress, well-hydrated, well-nourished and happy, smiling, interactive SKIN: no rash noted HEAD: normocephalic, no abnormality or lesion noted EYES: no injection and visual acuity is grossly normal demonstrated by appropriate interactions, no gross pupillary abnormality, no periorbital edema, no scleral icterus Exam limited due to telehealth visit. Reason for Referral: Gastrointestinal Assessment/Impression: Diarrhea- resolved Plan: - Continue with good oral hydration of electrolyte rich fluids. - D/C Imodium as diarrhea has resolved. - Reviewed BRAT diet to continue on for the next day. - Reviewed signs and symptoms to seek UC for with [place]. - Alerting PACT to follow up with [place] post hospital [place]. Issue resolved with Tele Urgent Care appointment Discharge instructions were reviewed Patient verbalizes understanding of the care plan Time spent in telephone/video visit: Minutes: 30 /gaetano/ ENRIQUE HOFFMAN MSN,BALL FRINGE MACHINE OPERATOR-C ZAYN 1 Clinical Contact Center Signed: 07/08/2024 11:34 Receipt Acknowledged By: * AWAITING SIGNATURE * ELIZABET ROBINS * AWAITING SIGNATURE * DEBBIE GORMAN 07/11/2024 ADDENDUM STATUS: COMPLETED Appt scheduled for 07/13. /gaetano/ THANH LUCAS Advanced Edge Cutter Signed: 07/11/2024 08:42 [facility] Jul 08, 2024 10:38 AM TELEHEALTH NOTE: LOCAL TITLE: TELE EMERGENCY CARE NOTE STANDARD TITLE: TELEHEALTH NOTE DATE OF NOTE: JUL 08, 2024@10:38 ENTRY DATE: JUL 08, 2024@10:38:33 AUTHOR: DAPHNIE EXP COSIGNER: URGENCY: STATUS: COMPLETED TELE EMERGENCY CARE NOTE Has ADDENDA This is a tele-emergency care visit to address acute/urgent issues. Definitive care on chronic medical issues will be deferred to routine Primary Care appointment/provider. Consult Origin: Referral from the Clinical Contact Center/Call Center Type of Visit: Video Visit: Telehealth Disclosure: Visit conducted by synchronous telehealth. Patient verbal consent obtained. Location/emergency number confirmed. Environment surveyed and all participants identified. Virtual conference room locked. Emergency contact information was obtained as follows: Patient's current address [address], [place] Patient's Phone Number:PATIENT PHONE - PHONE NUMBER [CELLULAR] - NONE FOUND Primary NOK: KATIE PEDRO Relation: [address] [place], [place] [address] Secondary NOK: [address] Relation: SISTER [address] [place], [place] [address] Subjective: Mr. Pedro is a 68 year old [place] who presents to [facility] with c/o diarrhea x3 days. Recently hospitalized for seizures and d/c'd 07/03/24; had some med changes and has not had any seizures since being discharged. Discharged on - Valproic Acid 250mg 3 capsules BID - +had hard formed BM this AM. +bloating / gas Good PO hydration, fluids. Took Imodium yesterday with no further episodes of Diarrhea today. Denies: fever/chills, dysuria, hematuria, flank pain, malodorous urine, abd pain or tenderness, dizziness, CP, palp, vomiting. 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 Rosacea ([facility] 957134521) I82.622 Deep venous thrombosis of upper extremity ([facility] 077954773) N20.0 Nephrolithiasis ([facility] 38061070) E78.5 Hyperlipidemia ([facility] 58152952) N40.1 Lower urinary tract symptoms due to benign prostatic hypertrophy ([facility] [id number]) V16.42 Family history of prostate cancer ([facility] 829403039) F25.9 Schizoaffective disorder ([facility] 34363497) F10.21 Alcohol dependence ([facility] 22775295) 523.8 Periodontal Disease NEC (ICD-9-CM 523.8) 530.81 GERD (ICD-9-CM 530.81) R20.2 Facial paraesthesia ([facility] 99304548) 367.9 REFRACTION DISORDER NOS (ICD-9-CM 367.9) ALLERGIES/ADR: AKWA TEARS, DIFLUCAN, PHENYTOIN, FLUOROMETHOLONE, REFRESH TEARS, OXYCODONE LEVETIRACETAM Active Outpatient Medications (including Supplies): ACCU-CHEK GUIDE (GLUCOSE) TEST STRIP USE 1 STRIP TO TEST ACTIVE BLOOD SUGARS TWO TIMES A WEEK ALBUTEROL 3/IPRATROP 0.5MG/3ML INHL 3ML INHALE 1 VIAL ACTIVE (3ML) IN NEBULIZER EVERY 4 HOURS NEEDED FOR BRONCHOSPASM ALBUTEROL 90MCG (CFC-F) 200D ORAL INHL INHALE 2 PUFFS BY ACTIVE MOUTH EVERY 4 HOURS NEEDED FOR SHORTNESS OF BREATH ALCOHOL PREP PAD USE 1 PAD TOPICALLY TWICE A WEEK ACTIVE NEEDED TO CLEAN SKIN FOR INJECTION ETC AMLODIPINE BESYLATE 5MG TAB TAKE ONE TABLET BY MOUTH ONCE ACTIVE DAILY FOR BLOOD PRESSURE/HEART, DO NOT TAKE WITH GRAPEFRUIT JUICE ATORVASTATIN CALCIUM 80MG TAB TAKE ONE-HALF TABLET BY ACTIVE MOUTH AT BEDTIME FOR CHOLESTEROL DICLOFENAC NA 75MG EC TAB TAKE ONE TABLET BY MOUTH TWICE ACTIVE DAILY NEEDED FOR PAIN/INFLAMMATION DM 10/GUAIFENESN 100MG/5ML (AF & SF) LIQ TAKE 5 MLS (ONE ACTIVE TEASPOONFUL) BY MOUTH EVERY 6 HOURS NEEDED FOR COUGH FAMOTIDINE 20MG TAB TAKE ONE TABLET BY [...] BY MOUTH TWICE ACTIVE DAILY FOR DIABETES METRONIDAZOLE 0.75% TOP GEL APPLY MODERATE AMOUNT ACTIVE TOPICALLY TWICE DAILY FOR ACNE ROSACEA PEG 400 0.4%/PROP GLYCOL 0.3% OPH SOLN INSTILL 1 DROP INTO ACTIVE EACH EYE FOUR TIMES DAILY NEEDED DRY EYE SILDENAFIL CITRATE 25MG TAB TAKE ONE TABLET BY MOUTH ONCE ACTIVE DAILY FOR ERECTILE DYSFUNCTION TAKE 1 HOUR PRIOR TO SEXUAL ACTIVITY - Valproic Acid 250mg 3 capsules BID Non-VA MULTIVITAMIN/MINERALS CAP/TAB ONE CAP/TAB BY MOUTH ACTIVE ONCE DAILY Non-VA OTHER CAP/TAB THC BY MOUTH TWICE DAILY ACTIVE Current medications reviewed with patient/caregiver and reconciliation of medications related to today's visit completed, including non-VA medications and discrepancies, if identified, were addressed. Medication changes and the importance of medication management were reviewed with the patient/caregiver today based on individual needs. Patient/caregiver acknowledged understanding of instructions as stated. Objective: GENERAL: alert and appropriate, in no distress, well-hydrated, well-nourished and happy, smiling, interactive SKIN: no rash noted HEAD: normocephalic, no abnormality or lesion noted EYES: no injection and visual acuity is grossly normal demonstrated by appropriate interactions, no gross pupillary abnormality, no periorbital edema, no scleral icterus Exam limited due to telehealth visit. Reason for Referral: Gastrointestinal Assessment/Impression: Diarrhea- resolved Plan: - Continue with good oral hydration of electrolyte rich fluids. - D/C Imodium as diarrhea has resolved. - Reviewed BRAT diet to continue on for the next day. - Reviewed signs and symptoms to seek UC for with . - Alerting PACT to follow up with post hospital [place]. Issue resolved with Tele Urgent Care appointment Discharge instructions were reviewed Patient verbalizes understanding of the care plan Time spent in telephone/video visit: Minutes: 30 /gaetano/ ENRIQUE HOFFMAN MSN,BALL FRINGE MACHINE OPERATORJhon JUDGE 1 Clinical Contact Center Signed: 07/08/2024 11:34 Receipt Acknowledged By: 07/15/2024 11:13 /es/ ALIZA GREGORYP Nurse Practitioner 07/11/2024 10:08 /es/ DEBBIE GORMAN, MSN, RN, CNL PRIMARY CARE TEAM NURSE 07/11/2024 ADDENDUM STATUS: COMPLETED Please offer Vet a PCP visit for post hospital DC f/u /gaetano/ Marcia Maurer RN Primary Care Staff Nurse Signed: 07/11/2024 08:23 Receipt Acknowledged By: 07/11/2024 08:42 /gaetano/ THANH LUCAS Advanced Edge Cutter 07/11/2024 ADDENDUM STATUS: COMPLETED Appt scheduled for 07/13. /gaetano/ THANH LUCAS Advanced Edge Cutter Signed: 07/11/2024 08:42 ENRIQUE MOREJON MS CNTRL [facility]
--- OUTSIDE RECORDS SUMMARY | 2024-11-01 08:05 | XMS_ITS ---
Author Name [place] Address [address] [place] [address] Care Team Providers Care Medical Biller/Coder Name Role Phone ELIZABET ROBINS Primary Care [...] [facility] CE [facility]GANIZ [facility] AC Apr 18, 2018 [id number] WILLIS,MAR JUDITH SPOUSE ANTHEM BCBS OF [place] (BLUECARD) [facility] ORGANIZ [facility]DA [facility] Apr 18, 2018 [id number] WILLIS,MAR JUDITH SPOUSE BCBS FOR[facility]LY [facility] CE ORGANIZ [facility] SHARE ACTIV E Apr 18, 2018 [id number] WILLIS,MAR JUDITH SPOUSE BCBS OF [facility] CE [facility]GANIZ [facility] Apr 18, 2018 [id number] WILLIS,MAR JUDITH PATIENT BCBS OF [facility] CE ORGANIZ BRENDA MCCABE [facility] Apr 18, 2018 [id number] WILLIS,MAR JUDITH SPOUSE BCBS OF [place] PREFERRED PROVIDER ORGANIZAT ION (PPO) BRENDA MCCABE [facility] AC Apr 18, 2018 [id number] [phone] WILLIS,MAR JUDITH SPOUSE BCBS OF [facility] CE ORGANIZ BRENDA [facility] ACT Apr 18, 2018 [id number] WILLIS,MAR JUDITH SPOUSE BCBS OF [facility] CE ORGANIZ BRENDA MCCABE [facility] AC Apr 18, 2018 [id number] WILLIS,MAR JUDITH SPOUSE [place] PRESCRIPT ION RX22M B Oct 19, 2022 RX22MB [id number] WILLIS,MAR JUDITH SPOUSE [place] PRESCRIPT ION BCBS OF [place] Oct 19, 2022 RX22MA [id number] [phone] WILLIS, SPOUSE [place] PRESCRIPT ION RX22M A Oct 19, 2022 RX22MA [id number] WILLIS,LAVELLE AEL PATIENT [place] PRESCRIPT ION RX22M B Oct 19, 2022 RX22MB [id number] WILLIS,LAVELLE AEL PATIENT [place] PRESCRIPT ION BRENDA MCCABE [facility] AC Oct 19, 2022 RX22MB [id number] [phone] WILLIS,LAVELLE AEL SPOUSE [place] PRESCRIPT ION RX Oct 19, 2022 RX22MB [id number] [phone] WILLIS,MAR JUDITH SPOUSE [place] ([id number]) PRESCRIPT ION [place]BS [place] Oct 19, 2022 RX22MB [id number] WILLIS,MAR JUDITH SPOUSE [place] BCBS ([facility] CE ORGANIZ BRENDA MCCABE [facility] AC Apr 18, 2018 [id number] [phone] WILLIS,EDILBERTO SOTELOZA SPOUSE [employer] PRESCRIPT ION BCBS [place] 2018 L4TA [id number] WILLIS,EDILBERTO SOTELOZA SPOUSE [employer] ([id number]) PRESCRIPT ION Apr 18, 2018 L4TA [id number] WILLIS,EDILBERTO SOTELOZA SPOUSE [employer] ([id number]) PRESCRIPT ION L4TA* Apr 18, 2020 L4TA [id number] WILLIS,EDILBERTO PALAFOXA SPOUSE [employer] ([id number]) PRESCRIPT ION L4TA* Apr 18, 2018 L4TA [id number] WILLIS,EDILBERTO PALAFOXA SPOUSE [employer] ([id number]) PRESCRIPT ION Apr 18, 2018 L4TA [id number] WLILIS,EDILBERTO WONG SPOUSE [employer] ([id number]) PRESCRIPT ION Apr 18, 2018 L4TA [id number] WILLISEDILBERTO SPOUSE [employer] ([id number]) PRESCRIPT ION L4TA Apr 18, 2018 L4TA [id number] WILLIS,EDILBERTO WONG SPOUSE [employer]-MINOR BROGATION PRESCRIPT ION BCBS OF [place] Apr 18, 2020 L4TA [id number] WILLIS,EDILBERTO WONG SPOUSE [facility] CE ORGANIZAT ION W/OUT OF NETWORK BENEFITS [facility] RSD ACT Apr 18, 2018 [id number] EDILBERTO PEDRO SPOUSE [place] BCBS [facility] (BLUECAR) [facility] CE ORGANIZAT ION [facility] RSD AC Apr 18, 2018 [id number] EDILBERTO PEDRO SPOUSE MEDICARE (WNR) MEDICARE (M) PART A Mar 19, 1990 PART A [id number] WILLISLAVELLE AEL PATIENT MEDICARE (WNR) MEDICARE (M) PART A Mar 19, 1990 PART A [id number] WILLIS,LAVELLE AEL PATIENT MEDICARE (WNR) MEDICARE (M) PART A Mar 19, 1990 PART A [id number] [phone] WILLIS,LAVELLE AEL PATIENT MEDICARE (WNR) MEDICARE (M) PART A Mar 19, 1990 PART A [id number] WILLIS,LAVELLE AEL PATIENT MEDICARE (WNR) MEDICARE (M) PART A Mar 19, 1990 PART A [id number] WILLIS,LAVELLE AEL PATIENT MEDICARE (WNR) MEDICARE (M) PART A Mar 19, 1990 PART A [id number] [phone] WILLIS,LAVELLE AEL PATIENT MEDICARE (WNR) MEDICARE (M) PART A Mar 19, 1990 PART A [id number] WILLIS,LAVELLE AEL PATIENT MEDICARE (WNR) MEDICARE (M) PART A Mar 19, 1990 PART A [id number] [phone] WILLIS,LAVELLE AEL PATIENT MEDICARE (WNR) MEDICARE (M) PART A Mar 19, 1990 PART A [id number] [phone] WILLIS,LAVELLE AEL PATIENT MEDICARE (WNR) MEDICARE (M) PART A Mar 19, 1990 PART A [id number] [phone] WILLIS,LAVELLE AEL PATIENT MEDICARE (WNR) MEDICARE (M) PART A Mar 19, 1990 PART A [id number] WILLISLAVELLE AEL PATIENT Selected Encounter This section includes the information on record at [place] for the Encounter. Date/Time Encounter Type Encounter Description Reason Pro vider Source Aug 25, 2024 11:32 AM Outpatient Encounter TELEPHONE PRIMARY CARE IHE Encounter Template Text not used by [place] Plan of Treatment: Future Appointments (+ 6 [...] 20 appointments. The data comes from all [facility]. Appointment Date/Time Appointment Type Appointme nt Facility Name Sep 21, 2024 09:00 AM AMBULATORY - MEDICINE [facility] Sep 21, 2024 10:00 AM AMBULATORY - MEDICINE [facility] Nov 28, 2024 09:30 AM [facility] Dec 02, 2024 08:30 AM [facility] Active, Pending, and Scheduled Orders This section includes a listing of several types of active, pending, and scheduled orders, including clinic medications orders, diagnostic test orders, procedure orders and consult orders; where the start date of the order is 45 days before the date of the Encounter or 45 days after the date of theEncounter. The data comes from all [facility]. Test Date/Time Test Type Test Details Facility Name Jul 13, 2024 09:58 AM Consult Order PODIATRY/N HM OUTPT Cons Registered Public Health Nurse's Choice [facility] Lab Results: +/- 30 days of the encounter This section includes the Chemistry and Hematology Lab Results on record with [place] for the patient. Radiology Reports and Pathology Reports are provided separately, in subsequent sections. Lab Results This section contains the Chemistry/Hematology Results that were resulted 30 days before or 30 daysafter the date of the Encounter. Date/Time Source Result Type Result - Unit Interpretation Reference Range Comment Sep 21, 2024 10:35 AM [facility] MICROALBUMIN CREATININE RATIO PANEL Specimen Type: URINE No comment entered. Ordering Provider: LINDA PERSON Report Released Date/Time: Sep 21, 2024 09:08 AM Reporting Lab: [address] [address] Performing Lab: [address] [address] MICROALBUMIN/CR EATININE RATIO 7.3 mg/g 0-29.9 MICROALBUMIN,QU ANTITATIVE 0.6 mg/dL RR UNAVAIL CREATININE URINE 81.65 mg/dL Sep 21, 2024 09:30 AM [facility] PHENOBARBITAL (q) Specimen Type: SERUM Comment: Test Performed by [facility], [employer] [facility][1], [address] [place] [address] Danis Lewis M.D., Ph.D., Director of Laboratories , CLIA [id number] TEST PERFORMED AT: , Ordering Provider: LINDA PERSON Report Released Date/Time: Sep 21, 2024 09:08 AM Reporting Lab: [facility] [address] [facility] [address] Performing Lab: [facility] [address] [address] PHENOBARBITAL (q) 5.2 mg/L L 15.0-40.0 Sep 21, 2024 09:30 AM [facility] HEMOGLOBIN A1C PANEL Specimen Type: BLOOD Comment: Values obtained from A1C measurements can vary. For atypical A1C assays, a reported value of 7.0 could actually be between 6.72 and 7.28 if measured by a reference method. A reported value of 9.0 could actually be between 8.73 and 9.27. Ref: [email or web address] [email or web address]/CAPdat a.asp Ordering Provider: LINDA PERSON Report Released Date/Time: Sep 21, 2024 09:08 AM Reporting Lab: [facility] [address] [facility] [address] Performing Lab: [facility] [address] [facility] [address] HEMOGLOBIN A1C 6.1 H 4.0-5.6 Sep 21, 2024 09:30 AM [facility] LIVER FUNCTION Specimen Type: SERUM No comment entered. Ordering Provider: LINDA PERSON Report Released Date/Time: Sep 21, 2024 09:08 AM Reporting Lab: [facility] [address] [facility] [address] Performing Lab: [address] [address] PROTEIN,TOTAL 7.8 g/dL 6.0-8.3 ALBUMIN 4.4 g/dL 3.5-5.0 ALKALINE PHOSPHATASE 89 U/L 40-150 AST 42 U/L H 5-34 ALT 52 U/L BILIRUBIN, TOTAL 0.3 mg/dL 0.2-1.2 Sep 21, 2024 09:30 AM [facility] BASIC METABOLIC PANEL (non-fasting) Specimen Type: SERUM No comment entered. Ordering Provider: LINDA PERSON Report Released Date/Time: Sep 21, 2024 09:08 AM Reporting Lab: [address] [address] Performing Lab: [address] [address] UREA NITROGEN 10 mg/dL 7-25 GLUCOSE 107 mg/dL H 65-100 SODIUM 141 mmol/L 135-145 POTASSIUM 4.5 mmol/L 3.5-5.0 CHLORIDE 107 mmol/L 100-110 CO2 20 meq/L 20-30 CREATININE, Serum 0.85 mg/dL 0.50-1.40 eGFR(CKD-EPI 2020) >90 mL/min >60 Social History: Smoking Status (Most current) and Tobacco Use (All prior to encounter date) This section includes the most current, and the historical, smoking and tobacco- related health factors from the [place] facility where the Encounter took place. Current Smoking Status This section includes the most current smoking, or tobacco-related health factor, from the [place] facility where the Encounter took place. Date/Time Current Smoking Status Comment Enrique sotelo Nov 27, 2023 11:00 AM [place]-TOBACCO QUIT 15 YRS OR MORE [facility] Tobacco Use History This section includes a history of the smoking, or tobacco-related health factors, that were collected on or before the date of the Encounter. The data comes from the [place] facility where the Encounter took place. Date/Time Smoking Status/Tobac co Use Comment Facility Nov 27, 2023 11:00 AM [place]-TOBACCO QUIT 15 YRS OR MORE [facility] Dec 02, 2022 08:00 AM [place]-TOBACCO FORMER USER [facility] Dec 02, 2022 08:00 AM [facility]-TO[facility]ACCO [facility] Nov 05, 2021 10:30 AM [facility] Nov 05, 2021 10:30 AM VA-TOBACCO QUIT 1 TO < 5 YRS [facility] Sep 14, 2020 02:00 PM VA-TOBACCO FORMER USER [facility] Sep 14, 2020 02:00 PM VA-TOBACCO QUIT 5 TO < 15 YRS [facility] Jan 22, 2018 03:40 PM QUIT TOBACCO USE > 7 YEARS AGO [facility] Jun 04, 2016 02:01 PM CURRENT SMOKER been smoking pass 20 yrs [facility] Jun 04, 2016 02:01 PM V1-PT DECLINES REF TO TOBACCO CESS PRGM [facility] Jun 04, 2016 02:01 PM V1-PT THINKING ABOUT QUIT [facility]BACCO USE [facility] Jul 18, 2014 03:31 PM V1-PT DECLINES REF TO TOBACCO CESS PRGM [facility] Jul 18, 2014 03:31 PM V1-PT DECLINES TOBACCO CESSATION MEDS [facility] Jul 18, 2014 03:31 PM V1-PT NOT INTERESTED IN QUIT TOBACCO USE [facility] Jan 09, 2014 10:43 AM CURRENT SMOKER pt smokes 1 pk of cigarettes per day. [facility] Jan 09, 2014 10:43 AM V1-PT THINKING ABOUT QUIT TOBACCO USE [facility] Aug 28, 2003 10:47 AM CURRENT SMOKER one pack q 6 days - he has cut down from 3 PPD. He is in the process of quitting [facility] Encounter Notes: All associated encounter notes This section contains the clinical notes associated to the Encounter. Date/Time Encounter Note(s) Provider Source Aug 25, 2024 11:32 AM PRIMARY CARE TELEP MANAS ENCOUNTER NOTE: LOCAL TITLE: TELEPHONE NOTE/PRIMARY CARE STANDARD TITLE: PRIMARY CARE TELEPHONE ENCOUNTER NOTE DATE OF NOTE: AUG 25, 2024@11:32 ENTRY DATE: AUG 25, 2024@11:33:30 AUTHOR: MARYJO GARCIA EXP COSIGNER: URGENCY: STATUS: COMPLETED PACT RN returned call left of voicemail about medications and labs ordered by neurology but no answer left a HIPPA compliant message requesting a return call back. Will wait for return call. /gaetano/ MARYJO GARCIA REGISTERED NURSE Signed: 08/25/2024 11:35 MARYJO GARCIA [place] CNTRL [facility]
--- OUTSIDE RECORDS SUMMARY | 2024-11-01 08:05 | XMS_ITS | Encounter Summary ---
Author Name [place] Address [address] [place] [address] Care Team Providers Care Fulfillment Mail Clerk Name Role Phone ELIZABET ROBINS Primary [...] Patient's Relationship to Policy Paul [facility] CE ORGANIZ [facility] AC Apr 18, 2018 [id number] WILLIS,MAR JUDITH SPOUSE ANTHEM BCBS OF [place] (BLUECARD) [facility] CE ORGANIZ [facility] Apr 18, 2018 [id number] WILLIS,MAR JUDITH SPOUSE BCBS [facility] CE ORGANIZ [facility] SHARE ACTIV E Apr 18, 2018 [id number] [phone] WILLIS,MAR JUDITH SPOUSE BCBS OF [facility] CE ORGANIZ [facility] Apr 18, 2018 [id number] WILLIS,MAR JUDITH PATIENT BCBS OF [facility] CE ORGANIZ BRENDA MCCABE [facility] Apr 18, 2018 [id number] WILLIS,MAR JUDITH SPOUSE BCBS OF [place] PREFERRED PROVIDER ORGANIZAT ION (PPO) BRENDA MCCABE [facility] AC Apr 18, 2018 [id number] [phone] WILLIS,MAR JUDITH SPOUSE BCBS OF [facility] CE ORGANIZ BRENDA MCCABE [facility] ACT Apr 18, 2018 [id number] WILLIS,MAR JUDITH SPOUSE BCBS OF [facility] CE ORGANIZ BRENDA MCCABE [facility] AC Apr 18, 2018 [id number] [phone] WILLIS,MAR JUDITH SPOUSE [place] PRESCRIPT ION RX22M B Oct 19, 2022 RX22MB [id number] WILLIS,MAR JUDITH SPOUSE [place] PRESCRIPT ION [place] Oct 19, 2022 RX22MA [id number] WILLIS, SPOUSE [place] PRESCRIPT ION RX22M A Oct 19, 2022 RX22MA [id number] WILLIS,LAVELLE AEL PATIENT [place] PRESCRIPT ION RX22M B Oct 19, 2022 RX22MB [id number] WILLIS,LAVELLE AEL PATIENT [place] PRESCRIPT ION BRENDA MCCABE [facility] AC Oct 19, 2022 RX22MB [id number] [phone] WILLIS,LAVELLE AEL SPOUSE [place] PRESCRIPT ION RX Oct 19, 2022 RX22MB [id number] [phone] WILLIS,MAR JUDITH SPOUSE [place] ([id number]) PRESCRIPT ION [place] Oct 19, 2022 RX22MB [id number] WILLIS,MAR JUDITH SPOUSE [place] BCBS ([facility] CE ORGANIZ BRENDA MCCABE [facility] AC Apr 18, 2018 [id number] WILLIS,EDILBERTO SOTELOZA SPOUSE [employer] PRESCRIPT ION [place] 2018 L4TA [id number] WILLIS,EDILBERTO SOTELOZA SPOUSE [employer] ([id number]) PRESCRIPT ION Apr 18, 2018 L4TA [id number] WILLIS,EDILBERTO SOTELOZA SPOUSE [employer] ([id number]) PRESCRIPT ION L4TA* Apr 18, 2020 L4TA [id number] WILLIS,EDILBERTO PALAFOXA SPOUSE [employer] ([id number]) PRESCRIPT ION L4TA* Apr 18, 2018 L4TA [id number] WILLIS,EDILBERTO PALAFOXA SPOUSE EXPRESS [employer]IPTS ([id number]) PRESCRIPT ION Apr 18, 2018 L4TA [id number] WILLIS,EDILBERTO WONG SPOUSE EXPRESS SCRIPTS ([id number]) PRESCRIPT ION Apr 18, 2018 L4TA [id number] WILLISEDILBERTO SPOUSE EXPRESS SCRIPTS ([id number]) PRESCRIPT ION L4TA Apr 18, 2018 L4TA [id number] WILLIS,EDILBERTO WONG SPOUSE EXPRESS SCRIPTS-MINOR BROGATION PRESCRIPT ION BCBS OF [place] Apr 18, 2020 L4TA [id number] WILLIS,EDILBERTO WONG SPOUSE [facility] CE ORGANIZAT ION W/OUT OF NETWORK BENEFITS [facility]RI[facility]EN [facility] RSD ACT Apr 18, 2018 [id number] EDILBERTO PEDRO SPOUSE [place] BCBS [facility] (BLUECAR) [facility] CE ORGANIZAT ION [facility]RISTEN [facility] RSD AC Apr 18, 2018 [id number] EDILBERTO PEDRO SPOUSE MEDICARE (WNR) MEDICARE (M) PART A Mar 19, 1990 PART A [id number] WILLISLAVELLE AEL PATIENT MEDICARE (WNR) MEDICARE (M) PART A Mar 19, 1990 PART A [id number] WILLIS,LAVELLE AEL PATIENT MEDICARE (WNR) MEDICARE (M) PART A Mar 19, 1990 PART A [id number] WILLIS,LAVELLE AEL PATIENT MEDICARE (WNR) MEDICARE (M) PART A Mar 19, 1990 PART A [id number] WILLIS,LAVELLE AEL PATIENT MEDICARE (WNR) MEDICARE (M) PART A Mar 19, 1990 PART A [id number] WILLIS,LAVELLE AEL PATIENT MEDICARE (WNR) MEDICARE (M) PART A Mar 19, 1990 PART A [id number] WILLIS,LAVELLE AEL PATIENT MEDICARE (WNR) MEDICARE (M) PART A Mar 19, 1990 PART A [id number] [phone] WILLIS,LAVELLE AEL PATIENT MEDICARE (WNR) MEDICARE (M) PART A Mar 19, 1990 PART A [id number] WILLIS,LAVELLE AEL PATIENT MEDICARE (WNR) MEDICARE (M) PART A Mar 19, 1990 PART A [id number] WILLIS,LAVELLE AEL PATIENT MEDICARE (WNR) MEDICARE (M) PART A Mar 19, 1990 PART A [id number] [phone] WILLIS,LAVELLE AEL PATIENT MEDICARE (WNR) MEDICARE (M) PART A Mar 19, 1990 PART A [id number] [phone] WILLISLAVELLE AEL PATIENT Selected Encounter This section includes the information [place] record at [place] for the Encounter. Date/Time Encounter Type Encounter Description Reason Pro vider Source Aug 12, 2024 12:00 AM Outpatient Encounter COMMUNITY CARE [...] 20 appointments. The data comes from all [facility]. Appointment Date/Time Appointment Type Appointme nt Facility Name Aug 22, 2024 09:00 AM AMBULATORY - MEDICINE [place] [facility] [facility] Sep 21, 2024 09:00 AM AMBULATORY - MEDICINE [place] [facility] [facility] Sep 21, 2024 10:00 AM AMBULATORY - MEDICINE [place] C [place] [facility] Nov 28, 2024 09:30 AM AMBULATORY - MEDICINE [place] C [facility] [facility] [facility] Dec 02, 2024 08:30 AM [facility]UL[facility] Active, Pending, and Scheduled Orders This section includes a listing of several types of active, pending, and scheduled orders, including clinic medications orders, diagnostic test orders, procedure orders and consult orders; where the start date of the order is 45 days before the date of the Encounter or 45 days after the date of theEncounter. The data comes from all [facility]. Test Date/Time Test Type Test Details Facility Name Jul 13, 2024 09:58 AM Consult Order PODIATRY/N HM OUTPT Cons Optomechanical Technician's Choice [facility] Social History: Smoking Status (Most current) and [...] took place. Date/Time Current Smoking Status Comment [facility] it Nov 27, 2023 11:00 AM [place]-TOBACCO QUIT 15 YRS OR MORE [facility] Tobacco Use History This section includes a history of the smoking, or tobacco-related health factors, that were collected on or before the date of the Encounter. The data comes from the [place] facility where the Encounter took place. Date/Time Smoking Status/Tobac co Use Comment Facility Nov 27, 2023 11:00 AM [place]-TOBACCO QUIT 15 YRS OR [facility] Dec 02, 2022 08:00 AM [facility] Dec 02, 2022 08:00 AM VA-TOBACCO QUIT 15 YRS OR MORE [facility] Nov 05, 2021 10:30 AM [facility]ACCO [facility] Nov 05, 2021 10:30 AM VA-TOBACCO QUIT 1 TO < 5 YRS [facility] Sep 14, 2020 02:00 PM [facility]ACCO [facility] Sep 14, 2020 02:00 PM VA-TOBACCO QUIT 5 TO < 15 YRS [facility] Jan 22, 2018 03:40 PM QUIT TOBACCO USE > 7 YEARS AGO [facility] Jun 04, 2016 02:01 PM CURRENT SMOKER been smoking pass 20 yrs [facility] Jun 04, 2016 02:01 PM V1-PT DECLINES REF TO TOBACCO CESS PRGM [facility] Jun 04, 2016 02:01 PM V1-PT THINKING ABOUT QUIT [facility]ACCO [facility] Jul 18, 2014 03:31 PM V1-PT DECLINES REF TO TOBACCO CESS PRGM [facility] Jul 18, 2014 03:31 PM V1-PT DECLINES TOBACCO CESSATION MEDS [facility] Jul 18, 2014 03:31 PM V1-PT NOT INTERESTED IN QUIT [facility]BACCO [facility] Jan 09, 2014 10:43 AM CURRENT SMOKER pt smokes 1 pk of cigarettes per day. [facility] Jan 09, 2014 10:43 AM V1-PT THINKING ABOUT QUIT [facility]ACCO [facility] Aug 28, 2003 10:47 AM CURRENT SMOKER one pack q 6 days - he has cut down from 3 PPD. He is in the process of quitting [facility] Encounter Notes: All associated encounter notes This section contains the clinical notes associated to the Encounter. Date/Time Encounter Note(s) Provider Source Aug 12, 2024 12:00 AM NONVA CONSULT: LOCAL TITLE: COMMUNITY CARE-CONSULT RESULT NOTE STANDARD TITLE: NONVA CONSULT DATE OF NOTE: AUG 12, 2024 ENTRY DATE: AUG 15, 2024@07:46:35 AUTHOR: ANITA KILGORE EXP COSIGNER: URGENCY: STATUS: COMPLETED VistA Imaging - Scanned Document SCANNED DOCUMENT SIGNATURE NOT REQUIRED Electronically Filed: 08/15/2024 by: ANITA GUILLAUME CNTRL W[facility]
--- OUTSIDE RECORDS SUMMARY | 2024-11-01 08:05 | XMS_ITS ---
Author Name [facility] [place] [facility] [place] [facility] [facility] [place] Address [address] [place] [address] Care Team Providers Care Coat Baster Name Role Phone ELIZABET ROBINS Primary Care [...] Paul's Name Patient's Relationship to Policy Paul [facility] CE ORGANIZ [facility] Apr 18, 2018 [phone] WILLIS,MAR JUDITH SPOUSE ANTHEM [place] OF [place] (BLUECARD) [facility] CE ORGANIZ [facility] Apr 18, 2018 [id number] WILLIS,MAR JUDITH SPOUSE BCBS [facility] CE ORGANIZ [facility] E Apr 18, 2018 [id number] WILLIS,MAR JUDITH SPOUSE BCBS OF [facility] CE ORGANIZ [facility] Apr 18, 2018 [id number] WILLIS,MAR JUDITH PATIENT BCBS OF [facility] CE ORGANIZ BRENDA MCCABE [facility] Apr 18, 2018 [id number] WILLIS,MAR JUDITH SPOUSE [place] OF [place] PREFERRED PROVIDER ORGANIZAT ION (PPO) BRENDA MCCABE [facility] AC Apr 18, 2018 [id number] WILLIS,MAR JUDITH SPOUSE BCBS OF [facility] CE ORGANIZ BRENDA MCCABE [facility] ACT Apr 18, 2018 [id number] WILLIS,MAR JUDITH SPOUSE BCBS OF [facility] CE ORGANIZ BRENDA MCCABE [facility] AC Apr 18, 2018 [id number] [phone] WILLIS,MAR JUDITH SPOUSE [place] PRESCRIPT ION RX22M A Oct 19, 2022 RX22MA [id number] WILLIS,LAVELLE AEL PATIENT [place] PRESCRIPT ION RX22M B Oct 19, 2022 RX22MB [id number] WILLIS,LAVELLE AEL PATIENT [place] PRESCRIPT ION BRENDA MCCABE [facility] AC Oct 19, 2022 RX22MB [id number] [phone] WILLIS,LAVELLE AEL SPOUSE [place] PRESCRIPT ION BCBS OF [place] Oct 19, 2022 RX22MA [id number] WILLIS, SPOUSE [place]EM[place] PRESCRIPT ION RX22M B Oct 19, 2022 RX22MB [phone] WILLIS,MAR JUDITH SPOUSE [place] PRESCRIPT ION RX Oct 19, 2022 RX22MB [id number] [phone] WILLIS,MAR JUDITH SPOUSE [place] ([id number]) PRESCRIPT ION BCBS OF [place] Oct 19, 2022 [id number] WILLIS,MAR JUDITH SPOUSE [place] BC[place] ([facility] CE ORGANIZ BRENDA MCCABE [facility] AC Apr 18, 2018 [id number] WILLIS,EDILBERTO WONG SPOUSE [employer] PRESCRIPT ION BCBS [place] 2018 L4TA [id number] WILLIS,EDILBERTO SOTELOZA SPOUSE [employer] ([id number]) PRESCRIPT ION Apr 18, 2018 L4TA [id number] WILLIS,EDILBERTO SOTELOZA SPOUSE [employer] ([id number]) PRESCRIPT ION L4TA* Apr 18, 2020 L4TA [id number] WILLIS,EDILBERTO PALAFOXA SPOUSE [employer] ([id number]) PRESCRIPT ION L4TA* Apr 18, 2018 L4TA [id number] WILLIS,EDILBERTO PALAFOXA SPOUSE [employer] ([id number]) PRESCRIPT ION L4TA Apr 18, 2018 L4TA [id number] WILLIS,EDILBERTO WONG SPOUSE [employer] ([id number]) PRESCRIPT ION Apr 18, 2018 L4TA [id number] WILLISEDILBERTO SPOUSE [employer] ([id number]) PRESCRIPT ION Apr 18, 2018 L4TA [id number] WILLIS,EDILBERTO WONG SPOUSE [employer]-MINOR BROGATION PRESCRIPT ION BCBS OF [place] Apr 18, 2020 L4TA [id number] WILLIS,EDILBERTO WONG SPOUSE [facility] CE ORGANIZAT ION W/OUT OF NETWORK BENEFITS [facility] ACT Apr 18, 2018 [id number] WILLISEDILBERTO SPOUSE [place] BCBS [facility] (BLUECAR) [facility] CE ORGANIZAT ION [facility] AC Apr 18, 2018 [id number] WILLISEDILBERTO SPOUSE MEDICARE (WNR) MEDICARE (M) PART A Mar 19, 1990 PART A [id number] WILLISLAVELLE PATIENT MEDICARE (WNR) MEDICARE (M) PART A Mar 19, 1990 PART A [id number] [phone] WILLIS,LAVELLE AEL PATIENT MEDICARE (WNR) MEDICARE (M) PART A Mar 19, 1990 PART A [id number] WILLIS,LAVELLE AEL PATIENT MEDICARE (WNR) MEDICARE (M) PART A Mar 19, 1990 PART A [id number] WILLIS,LAVELLE AEL PATIENT MEDICARE (WNR) MEDICARE (M) PART A Mar 19, 1990 PART A [id number] WILLIS,LAVELLE AEL PATIENT MEDICARE (WNR) MEDICARE (M) PART A Mar 19, 1990 PART A [id number] WILLIS,LAVELLE AEL PATIENT MEDICARE (WNR) MEDICARE (M) PART A Mar 19, 1990 PART A [id number] WILLIS,LAVELLE AEL PATIENT MEDICARE (WNR) MEDICARE (M) PART A Mar 19, 1990 PART A [id number] WILLIS,LAVELLE AEL PATIENT MEDICARE (WNR) MEDICARE (M) PART A Mar 19, 1990 PART A [id number] WILLIS,LAVELLE AEL PATIENT MEDICARE (WNR) MEDICARE (M) PART A Mar 19, 1990 PART A [id number] WILLIS,LAVELLE AEL PATIENT MEDICARE (WNR) MEDICARE (M) PART A Mar 19, 1990 PART A [id number] WILLIS,LAVELLE AEL PATIENT Selected Encounter This section includes the information on record at [place] for the Encounter. Date/Time Encounter Type Encounter Description Reason Provider Source Sep 21, 2024 03:02 PM FIT SPECTACLES BIFOCAL OPTOMETRY ICD-10-CM Z46.0 Encounter for fit/adjst of spectacles and contact lenses STACIA CAMPO IHE Encounter Template Text not used by [facility] Assessments - Encounter Diagnoses This section includes the primary and secondary diagnoses documented for the Encounter. Date/Time Primary/Secondary Diagnosis Diagnosis Name Provider Source Sep 21, 2024 03:02 PM PRIMARY Encounter for fit/adjst of spectacles and contact lenses LINDA MALONEY [facility] Plan of Treatment: Future Appointments (+ 6 months) and Future Tests (+/- 45 days) The Plan of Treatment section includes future care activities for the patient from all [place] treatmentfacilities. This section includes future appointments and future orders which are active, pending or scheduled. Future Appointments This section includes appointments that were scheduled to occur 6 months from the date of the Encounter, up to a maximum of 20 appointments. The data comes from all [place] treatment facilities. Appointment Date/Time Appointment Type Appointme nt Facility Name Nov 28, 2024 09:30 AM AMBULATORY - MEDICINE [facility] Dec 02, 2024 08:30 AM AMBULATORY MEDICINE [facility] Mar 20, 2025 09:00 AM [facility]BULATORY MEDICINE [facility] Lab Results: +/- 30 days of the encounter This section includes the Chemistry and Hematology Lab Results on record with [place] for the patient. Radiology Reports and Pathology Reports are provided separately, in subsequent sections. Lab Results This section contains the Chemistry/Hematology Results that were resulted 30 days before or 30 daysafter the date of the Encounter. Date/Time Source Result Type Result - Unit Interpretation Reference Range Comment Sep 21, 2024 10:35 AM [facility] MICROALBUMIN CREATININE RATIO PANEL Specimen Type: URINE No comment entered. Ordering Provider: LINDA PERSON Report Released Date/Time: Sep 21, 2024 09:08 AM Reporting Lab: [facility] [address] [facility] [address] Performing Lab: [facility] [address] [facility] [address] MICROALBUMIN/CR EATININE RATIO 7.3 mg/g 0-29.9 MICROALBUMIN,QU ANTITATIVE 0.6 mg/dL RR UNAVAIL CREATININE URINE 81.65 mg/dL Sep 21, 2024 09:30 AM [facility] PHENOBARBITAL (q) Specimen Type: SERUM Comment: Test Performed by Shai Dowd, Mobi Rider [facility], [address] [place] [address] Danis Lewis M.D., Ph.D., Director of Laboratories , [facility] [id number] TEST PERFORMED AT: , Ordering Provider: LINDA PERSON Report Released Date/Time: Sep 21, 2024 09:08 AM Reporting Lab: [facility] [address] [facility] [address] Performing Lab: [facility] [address] [facility], [address] [place] [id number] PHENOBARBITAL (q) 5.2 mg/L L 15.0-40.0 Sep 21, 2024 09:30 AM [facility] HEMOGLOBIN A1C PANEL Specimen Type: BLOOD Comment: [...] Sep 21, 2024 09:08 AM Reporting Lab: [facility] [address] [facility] [address] Performing Lab: [address] [address] HEMOGLOBIN A1C 6.1 H 4.0-5.6 Sep 21, 2024 09:30 AM [facility] LIVER FUNCTION Specimen Type: SERUM No comment entered. Ordering Provider: LINDA PERSON Report Released Date/Time: Sep 21, 2024 09:08 AM Reporting Lab: [facility] [address] [facility] [address] Performing Lab: [address] [address] PROTEIN,TOTAL 7.8 g/dL 6.0-8.3 ALBUMIN 4.4 g/dL 3.5-5.0 ALKALINE PHOSPHATASE 89 U/L 40-150 AST 42 U/L H 5-34 ALT 52 U/L BILIRUBIN, TOTAL 0.3 mg/dL 0.2-1.2 Sep 21, 2024 09:30 AM [facility] BASIC METABOLIC PANEL (non-fasting) Specimen Type: SERUM No comment entered. Ordering Provider: LINDA PERSON Report Released Date/Time: Sep 21, 2024 09:08 AM Reporting Lab: [facility] [address] [facility] [address] Performing Lab: [facility] [address] [facility] [address] UREA NITROGEN 10 mg/dL 7-25 GLUCOSE 107 [...] and tobacco- related health factors from the [place] facility where the Encounter took place. Current Smoking Status This section includes the most current smoking, or tobacco-related health factor, from the [place] facility where the Encounter took place. Date/Time Current Smoking Status Comment Enrique [facility] Nov 27, 2023 11:00 AM VA-TOBACCO FORMER USER [facility] Tobacco Use History This section includes a history of the smoking, or tobacco-related health factors, that were collected on or before the date of the Encounter. The data comes from the [place] facility where the Encounter took place. Date/Time Smoking Status/Tobac co Use Comment Facility Nov 27, 2023 11:00 AM VA-TOBACCO [facility]IT 15 [facility] Dec 02, 2022 08:00 AM [facility] [place] [facility] Dec 02, 2022 08:00 AM VA-TOBACCO QUIT 15 YRS OR [facility] Nov 05, 2021 10:30 AM [facility]AC[facility] Nov 05, 2021 10:30 AM VA-TOBACCO QUIT 1 TO < 5 YRS [facility] Sep 14, 2020 02:00 PM VA-TOBACCO FORMER USER [facility] Sep 14, 2020 02:00 PM VA-TOBACCO QUIT 5 TO < 15 YRS [facility] Jan 22, 2018 03:40 PM QUIT TOBACCO USE > 7 YEARS AGO [facility] Jun 04, 2016 02:01 PM CURRENT SMOKER been smoking pass 20 yrs [facility] Jun 04, 2016 02:01 PM V1-PT DECLINES REF TO TOBACCO CESS PRGM [facility] Jun 04, 2016 02:01 PM V1-PT THINKING ABOUT QUIT TOBACCO USE [facility] Jul 18, 2014 03:31 PM V1-PT DECLINES REF TO TOBACCO CESS PRGM [facility] Jul 18, 2014 03:31 PM V1-PT DECLINES TOBACCO CESSATION MEDS [facility] Jul 18, 2014 03:31 PM V1-PT NOT INTERESTED IN QUIT TOBACCO USE [facility] Jan 09, 2014 10:43 AM CURRENT SMOKER pt smokes 1 pk of cigarettes per day. [facility] Jan 09, 2014 10:43 AM V1-PT THINKING ABOUT QUIT TOBACCO USE [facility] Aug 28, 2003 10:47 AM CURRENT SMOKER one pack q 6 days - he has cut down from 3 PPD. He is in the process of quitting [facility] Encounter Notes: All associated encounter notes This section contains the clinical notes associated to the Encounter. Date/Time Encounter Note(s) Provider Source Sep 21, 2024 03:02 PM OPTOMETRY NOTE: LOCAL TITLE: OPTOMETRY NOTE STANDARD TITLE: OPTOMETRY NOTE DATE OF NOTE: SEP 21, 2024@15:02 ENTRY DATE: SEP 21, 2024@15:02:12 AUTHOR: DOMINIQUE STARK COSIGNER: URGENCY: STATUS: COMPLETED OPTOMETRY NOTE Has ADDENDA The quote provided below is for informational purposes only. Please verify prior to the creation of a purchase order. CHAYA PEDRO 5883 RX INFORMATION OD +1.25 -1.50 X105 Add:+2.50 Pzm:0.00 Dir: Prz2:0.00 Dir2: OS +0.75 -0.50 X50 Add:+2.50 Pzm:0.00 Dir: Prz2:0.00 Dir2: FITTING INFORMATION FPD:63 NPD:60 Crane:R: L: SEG HT:R:15 L:15 Tint:WEN Shade:2 [place] Billable Items FRAME: US59 BLACK [id number] Right Lens: PLASTIC BIFOCAL FT28 1.498 PLASTIC CR39 Left Lens: PLASTIC BIFOCAL FT28 1.498 PLASTIC CR39 UV400 SOLID TINT CLIN items 0002 - Bifocal - Glass Plastic Poly The quote provided below is for informational purposes only. Please verify prior to the creation of a purchase order. CHAYA PEDRO 5883 RX INFORMATION OD +1.25 -1.50 X105 Add:+2.50 Pzm:0.00 Dir: Prz2:0.00 Dir2: OS +0.75 -0.50 X50 Add:+2.50 Pzm:0.00 Dir: Prz2:0.00 Dir2: FITTING INFORMATION FPD:63 NPD:60 Crane:R: L: SEG HT:R:15 L:15 Tint:None Shade:None [place] Billable Items FRAME: 59 BLACK [id number] Right Lens: PLASTIC BIFOCAL FT28 PHOTOCHROMIC ROME 1.498 PLASTIC CR39 Left Lens: PLASTIC BIFOCAL FT28 PHOTOCHROMIC ROME 1.498 PLASTIC CR39 CLIN items 0002 - Bifocal - Glass Plastic Poly 0005 - Transition /es/ DOMINIQUE STARK FORMER HAND Signed: 09/21/2024 15:02 Receipt Acknowledged By: 09/21/2024 15:04 /gaetano/ Linda Maloney LPN Licensed Practical Nurse 09/21/2024 ADDENDUM STATUS: 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 OPT HT entered consult(s) as requested for provider signature. /gaetano/ Linda Maloney LPN Licensed Practical Nurse Signed: 09/21/2024 15:07 DOMINIQUE STARK CNTRL [facility]
--- OUTSIDE RECORDS SUMMARY | 2024-11-01 08:05 | XMS_ITS | Encounter Summary ---
Author Name [facility] [place] [facility] [place] Address [address] [place] [address] Care Team Providers Care Senior Asset Manager Name Role Phone ELIZABET ROBINS Primary Care [...] Member ID Insurance Provider's Telephone Number Policy Apul's Name Patient's Relationship to Policy Paul [facility] CE ORGANIZ [facility] AC Apr 18, 2018 [id number] [phone] WILLIS,MAR JUDITH SPOUSE ANTHEM BCBS OF [place] ([place]ARD) [facility] CE ORGANIZ BRENDA [facility] Apr 18, 2018 [id number] [phone] WILLIS,MAR JUDITH SPOUSE BCBS [facility] CE ORGANIZ [facility] Apr 18, 2018 [id number] WILLIS,MAR JUDITH SPOUSE BCBS OF [facility] CE ORGANIZ [facility] Apr 18, 2018 [id number] WILLIS,MAR JUDITH PATIENT BCBS OF [facility] CE ORGANIZ BRENDA MCCABE [facility] Apr 18, 2018 [id number] WILLIS,MAR JUDITH SPOUSE [place] OF [place] PREFERRED PROVIDER ORGANIZAT ION (PPO) BRENDA MCCABE [facility] AC Apr 18, 2018 [id number] [id number] [phone] WILLIS,MAR JUDITH SPOUSE BCBS OF [facility] CE ORGANIZ BRENDA MCCABE [facility] ACT Apr 18, 2018 [id number] WILLIS,MAR JUDITH SPOUSE BCBS OF [facility] CE ORGANIZ BRENDA MCCABE [facility] AC Apr 18, 2018 [id number] [phone] WILLIS,MAR JUDITH SPOUSE [place] PRESCRIPT ION RX22M A Oct 19, 2022 RX22MA [id number] WILLIS,LAVELLE AEL PATIENT [place] PRESCRIPT ION RX22M B Oct 19, 2022 RX22MB [id number] WILLIS,LAVELLE AEL PATIENT [place] PRESCRIPT ION RX22M B Oct 19, 2022 RX22MB [id number] WILLIS,MAR JUDITH SPOUSE [place] PRESCRIPT ION BRENDA MCCABE [facility] AC Oct 19, 2022 RX22MB [id number] WILLIS,LAVELLE AEL SPOUSE [place] PRESCRIPT ION RX Oct 19, 2022 RX22MB [id number] WILLIS,MAR JUDITH SPOUSE [place] PRESCRIPT ION BCBS OF [place] Oct 19, 2022 RX22MA [id number] [phone] WILLIS, SPOUSE CAR[place]ARK ([id number]) PRESCRIPT ION [place] OF [place] Oct 19, 2022 RX22MB [id number] WILLIS,MAR JUDITH SPOUSE [place] BCBS ([facility] CE ORGANIZ BRENDA MCCABE [facility] AC Apr 18, 2018 [id number] [phone] WILLIS,EDILBERTO SOTELOZA SPOUSE [employer] [place] PRESCRIPT I[place] 2018 L4TA [id number] WILLIS,EDILBERTO SOTELOZA SPOUSE [employer] ([id number]) PRESCRIPT ION Apr 18, 2018 L4TA [id number] WILLIS,EDILBERTO SOTELOZA SPOUSE [employer] ([id number]) PRESCRIPT ION L4TA* Apr 18, 2020 L4TA [id number] WILLISEDILBERTOA SPOUSE [employer] ([id number]) PRESCRIPT ION L4TA* Apr 18, 2018 L4TA [id number] 32 WILLIS,EDILBERTO PALAFOXA SPOUSE [employer] ([id number]) PRESCRIPT ION L4TA Apr 18, 2018 L4TA [id number] WILLIS,EDILBERTO WONG SPOUSE [employer] ([id number]) PRESCRIPT ION Apr 18, 2018 L4TA [id number] 32 WILLISEDILBERTO SPOUSE [employer] ([id number]) PRESCRIPT ION Apr 18, 2018 L4TA [id number] WILLISEDILBERTO SPOUSE [employer]-MINOR BROGATION PRESCRIPT ION [place]BS OF [place] Apr 18, 2020 L4TA [id number] WILLIS,EDILBERTO WONG SPOUSE [facility] CE ORGANIZAT ION W/OUT OF NETWORK BENEFITS [facility] ACT Apr 18, 2018 [id number] [phone] WILLISEDILBERTO SPOUSE HIG[place] BCBS [facility] (BLUECARD) [facility] CE ORGANIZAT ION [facility] AC Apr 18, 2018 [id number] [phone] WILLISEDILBERTO SPOUSE MEDICARE (WNR) MEDICARE (M) PART A Mar 19, 1990 PART A [id number] WILLISLAVELLE Lynn AEL PATIENT MEDICARE (WNR) MEDICARE (M) PART A Mar 19, 1990 PART A [id number] WILLIS,LAVELLE AEL PATIENT MEDICARE (WNR) MEDICARE (M) PART A Mar 19, 1990 PART A [id number] WILLIS,LAVELLE AEL PATIENT MEDICARE (WNR) MEDICARE (M) PART A Mar 19, 1990 PART A [id number] WILLIS,LAVELLE AEL PATIENT MEDICARE (WNR) MEDICARE (M) PART A Mar 19, 1990 PART A [id number] [phone] WILLIS,LAVELLE AEL PATIENT MEDICARE (WNR) MEDICARE (M) PART A Mar 19, 1990 PART A [id number] WILLIS,LAVELLE AEL PATIENT MEDICARE (WNR) MEDICARE (M) PART A Mar 19, 1990 PART A [id number] WILLIS,LAVELLE AEL PATIENT MEDICARE (WNR) MEDICARE (M) PART A Mar 19, 1990 PART A [id number] WILLIS,LAVELLE AEL PATIENT MEDICARE (WNR) MEDICARE (M) PART A Mar 19, 1990 PART A [id number] WILLIS,LAVELLE AEL PATIENT MEDICARE (WNR) MEDICARE (M) PART A Mar 19, 1990 PART A [id number] WILLIS,LAVELLE AEL PATIENT MEDICARE (WNR) MEDICARE (M) PART A Mar 19, 1990 PART A [id number] WILLIS,LAVELLE AEL PATIENT Selected Encounter This section includes the information on record at [place] for the Encounter. Date/Time Encounter Type Encounter Description Reason Pro vider Source May 03, 2024 12:00 AM Outpatient Encounter COMMUNITY CARE CONSULT IHE Encounter Template Text not used by [place] Plan of Treatment: Future Appointments (+ 6 [...] MEDICINE [place] [facility] May 30, 2024 09:30 AM AMBULATORY - MEDICINE [place] [facility] Jun 01, 2024 10:00 AM AMBULATORY - MEDICINE [place] [facility] Jun 01, 2024 11:30 AM [facility]UL[facility] [place] [facility] Jun 28, 2024 11:30 AM AMBULATORY [facility] MEDICINE [facility] [place] [facility] Jul 08, 2024 10:30 AM AMBULATORY - MEDICINE [place] [facility] Jul 13, 2024 09:30 AM AMBULATORY - MEDICINE [place] [facility] Aug 12, 2024 09:30 AM AMBULATORY - MEDICINE [place] [facility] Aug 22, 2024 09:00 AM AMBULATORY - MEDICINE [place] [facility] Sep 21, 2024 09:00 AM AMBULATORY - MEDICINE [place] [facility] Sep 21, 2024 10:00 AM AMBULATORY - MEDICINE [place] [facility] Lab Results: +/- 30 days of [...] Range Comment Jun 01, 2024 12:25 PM [place] [facility] MICROALBUMIN CREATININE RATIO PANEL Specimen Type: URINE No comment entered. Ordering Provider: LINDA PERSON Report Released Date/Time: Jun 01, 2024 11:53 AM Reporting Lab: [place] [facility] [facility] [address] [address] Performing Lab: [facility] [address] MICROALBUMIN/C REATININE RATIO 10.8 mg/g 0-29.9 MICROALBUMIN,Q UANTITATIVE 1.1 mg/dL RR UNAVAIL CREATININE URINE 101.63 mg/dL Jun 01, 2024 10:38 AM [facility] HEMOGLOBIN A1C PANEL Specimen Type: [...] May 30, 2024 10:29 AM Reporting Lab: [address] [address] Performing Lab: [address] [address] HEMOGLOBIN A1C 5.8 H 4.0-5.6 Jun 01, 2024 10:38 AM [facility] BASIC METABOLIC PANEL (non-fasting) Specimen Type: SERUM No comment entered. Ordering Provider: LINDA PERSON Report Released Date/Time: May 30, 2024 10:29 AM Reporting Lab: [address] [address] Performing Lab: [address] [address] UREA NITROGEN 13 mg/dL 7-25 GLUCOSE 115 mg/dL H 65-100 SODIUM 140 mmol/L 135-145 POTASSIUM 4.3 mmol/L 3.5-5.0 CHLORIDE 107 mmol/L 100-110 CO2 21 meq/L 20-30 CREATININE, Serum 0.84 mg/dL 0.50-1.40 eGFR(CKD-EPI 2020) >90 mL/min >60 Jun 01, 2024 10:38 AM [facility] LIPID PANEL, NON FASTING Specimen Type: SERUM No comment entered. Ordering Provider: LINDA PERSON Report Released Date/Time: Jun 01, 2024 10:12 AM Reporting Lab: [facility] [address] [address] Performing Lab: [place] [facility] [address] [address] CHOLESTEROL 126 mg/dL TRIGLYCERIDE 114 mg/dL 0-150 [...] took place. Date/Time Current Smoking Status Comment [facility] Nov 27, 2023 11:00 AM VA-TOBACCO FORMER USER [place] [facility] Tobacco Use History This section includes a history of the smoking, or tobacco-related health factors, that were collected on or before the date of the Encounter. The data comes from the [place] facility where the Encounter took place. Date/Time Smoking Status/Tobac co Use Comment Facility Nov 27, 2023 11:00 AM VA-TOBACCO QUIT 15 YRS OR MORE [place] [facility] Dec 02, 2022 08:00 AM VA-TOBACCO FORMER USER [place] [facility] Dec 02, 2022 08:00 AM VA-TOBACCO QUIT 15 YRS OR MORE [place] [facility] [facility] Nov 05, 2021 10:30 AM VA-TOBACCO FORMER USER [place] [facility] Nov 05, 2021 10:30 AM VA-TOBACCO QUIT 1 TO < 5 YRS [place] [facility] [facility] Sep 14, 2020 02:00 PM VA-TOBACCO FORMER USER [place] [facility] [facility] Sep 14, 2020 02:00 PM VA-TOBACCO QUIT 5 TO < 15 YRS [place] [facility] [place] [facility] Jan 22, 2018 03:40 PM QUIT TOBACCO USE > 7 YEARS AGO [place] [facility] [facility] Jun 04, 2016 02:01 PM CURRENT SMOKER been smoking pass 20 yrs [place] [facility] Jun 04, 2016 02:01 PM V1-PT DECLINES REF TO TOBACCO CESS PRGM [facility] Jun 04, 2016 02:01 PM V1-PT THINKING ABOUT QUIT TOBACCO USE [facility] Jul 18, 2014 03:31 PM V1-PT DECLINES REF TO TOBACCO CESS PRGM [facility] Jul 18, 2014 03:31 PM V1-PT DECLINES TOBACCO CESSATION MEDS [facility] Jul 18, 2014 03:31 PM V1-PT NOT INTERESTED IN QUIT TOBACCO USE [facility] Jan 09, 2014 10:43 AM CURRENT SMOKER pt smokes 1 pk of cigarettes per day. [facility] Jan 09, 2014 10:43 AM V1-PT THINKING ABOUT QUIT TOBACCO USE [facility] Aug 28, 2003 10:47 AM CURRENT SMOKER one pack q 6 days - he has cut down from 3 PPD. He is in the process of quitting [facility] Encounter Notes: All associated encounter notes This section contains the clinical notes associated to the Encounter. Date/Time Encounter Note(s) Provider Source May 03, 2024 12:00 AM NONVA CONSULT: LOCAL TITLE: COMMUNITY CARE-CONSULT RESULT NOTE STANDARD TITLE: NONVA CONSULT DATE OF NOTE: MAY 03, 2024 ENTRY DATE: SEP 01, 2024@15:17:34 AUTHOR: KELLI BRADEN EXP COSIGNER: URGENCY: STATUS: COMPLETED VistA Imaging - Scanned Document SCANNED DOCUMENT SIGNATURE NOT REQUIRED Electronically Filed: 09/01/2024 by: KELLI BRADEN CHIEF OPERATOR KELLI BRADEN [facility]
--- OUTSIDE RECORDS SUMMARY | 2024-11-01 08:05 | XMS_ITS ---
Author Name [facility] [place] Address [address] [place] [address] Care Team Providers Care Nuclear Fuels Research Engineer Name Role Phone ELIZABET ROBINS Primary [...] Paul's Name Patient's Relationship to Policy Paul [facility] CE ORGANIZ [facility] AC Apr 18, 2018 [id number] WILLSI,MAR JUDITH SPOUSE ANTHEM BCBS OF [place] (BLUECARD) [facility] ORGANIZ BR[facility]DA [facility] Apr 18, 2018 [id number] WILLIS,MAR JUDITH SPOUSE BCBS [facility] CE ORGANIZ [facility] ACTIV E Apr 18, 2018 [id number] [phone] WILLIS,MAR JUDITH SPOUSE BCBS OF [facility] CE ORGANIZ [facility] Apr 18, 2018 [id number] WILLIS,MAR JUDITH PATIENT BCBS OF [facility] CE ORGANIZ BRENDA MCCABE [facility] Apr 18, 2018 [id number] WILLIS,MAR JUDITH SPOUSE [place] PREFERRED PROVIDER ORGANIZAT ION (PPO) BRENDA MCCABE [facility] AC Apr 18, 2018 [id number] [id number] WILLIS,MAR JUDITH SPOUSE BCBS OF [facility] CE ORGANIZ BRENDA MCCABE [facility] ACT Apr 18, 2018 [id number] WILLIS,MAR JUDITH SPOUSE BCBS OF [facility] CE ORGANIZ BRENDA MCCABE [facility] AC Apr 18, 2018 [id number] [phone] WILLIS,MAR JUDITH SPOUSE [place] PRESCRIPT ION RX22M A Oct 19, 2022 RX22MA [id number] WILLIS,LAVELLE AEL PATIENT CAR[place] PRESCRIPT ION RX22M B Oct 19, 2022 RX22MB [id number] WILLIS,LAVELLE AEL PATIENT CAREM[place] PRESCRIPT ION RX22M B Oct 19, 2022 RX22MB [id number] WILLIS,MAR JUDITH SPOUSE CAREMARK PRESCRIPT ION BRENDA MCCABE [facility] AC Oct 19, 2022 RX22MB [id number] WILLIS,LAVELLE AEL SPOUSE CAR[place] PRESCRIPT ION RX Oct 19, 2022 RX22MB [id number] 32 WILLIS,MAR JUDITH SPOUSE [place] PRESCRIPT ION [place] OF [place] Oct 19, 2022 RX22MA [id number] [phone] WILLIS, SPOUSE CAREMARK ([id number]) PRESCRIPT ION [place] Oct 19, 2022 RX22MB [id number] 32 WILLIS,MAR JUDITH SPOUSE [place] BCBS ([facility] CE ORGANIZ BRENDA MCCABE [facility] AC Apr 18, 2018 [id number] WILLIS,EDILBERTO SOTELOZA SPOUSE [employer] PRESCRIPT I[place]BS [place] 2018 L4TA [id number] WILLIS,EDILBERTO SOTELOZA SPOUSE [employer] ([id number]) PRESCRIPT ION Apr 18, 2018 L4TA [id number] WILLIS,EDILBERTO SOTELOZA SPOUSE [employer] ([id number]) PRESCRIPT ION L4TA* Apr 18, 2020 L4TA [id number] WILLISEDILEBRTOA SPOUSE [employer] ([id number]) PRESCRIPT ION L4TA* Apr 18, 2018 L4TA [id number] 32 WILLIS,EDILBERTO PALAFOXA SPOUSE [employer] ([id number]) PRESCRIPT ION L4TA Apr 18, 2018 L4TA [id number] WILLIS,EDILBERTO WONG SPOUSE [employer] ([id number]) PRESCRIPT ION Apr 18, 2018 L4TA [id number] 32 WILLISEDILBERTO SPOUSE [employer] ([id number]) PRESCRIPT ION Apr 18, 2018 L4TA [id number] WILLISEDILBERTO SPOUSE [employer]-MINOR BROGATION PRESCRIPT ION BCBS OF [place] Apr 18, 2020 L4TA [id number] WILLIS,EDILBERTO WONG SPOUSE [facility] CE ORGANIZAT ION W/OUT OF NETWORK BENEFITS [facility] RSD ACT Apr 18, 2018 [id number] [phone] WILLISEDILEBRTO SPOUSE [place] BCBS [facility] (BLUECARD) [facility] CE ORGANIZAT ION [facility] RSD AC Apr 18, 2018 [id number] WILLISEDILBERTO SPOUSE MEDICARE (WNR) MEDICARE (M) PART A Mar 19, 1990 PART A [id number] WILLISLAVELLE Lynn AEL PATIENT MEDICARE (WNR) MEDICARE (M) PART A Mar 19, 1990 PART A [id number] WILLIS,LAVELLE AEL PATIENT MEDICARE (WNR) MEDICARE (M) PART A Mar 19, 1990 PART A [id number] [phone] WILLIS,LAVELLE AEL PATIENT MEDICARE (WNR) MEDICARE (M) PART A Mar 19, 1990 PART A [id number] [phone] WILLIS,LAVELLE AEL PATIENT MEDICARE (WNR) MEDICARE (M) PART A Mar 19, 1990 PART A [id number] WILLIS,LAVELLE AEL PATIENT MEDICARE (WNR) MEDICARE (M) PART A Mar 19, 1990 PART A [id number] WILLIS,LAVELLE AEL PATIENT MEDICARE (WNR) MEDICARE (M) PART A Mar 19, 1990 PART A [id number] [phone] WILLIS,LAVELLE AEL PATIENT MEDICARE (WNR) MEDICARE (M) PART A Mar 19, 1990 PART A [id number] WILLIS,LAVELLE AEL PATIENT MEDICARE (WNR) MEDICARE (M) PART A Mar 19, 1990 PART A [id number] [phone] WILLIS,LAVELLE AEL PATIENT MEDICARE (WNR) MEDICARE (M) PART A Mar 19, 1990 PART A [id number] [phone] [id number] WILLIS,LAVELLE AEL PATIENT MEDICARE (WNR) MEDICARE (M) PART A Mar 19, 1990 PART A [id number] [phone] WILLIS,LAVELLE AEL PATIENT Selected Encounter This section includes the information on record at [place] for the Encounter. Date/Time Encounter Type Encounter Description Reason Pro vider Source Aug 10, 2024 02:29 PM Outpatient Encounter COMMUNITY CARE CONSULT IHE [...] 20 appointments. The data comes from all [place] treatment [facility]. Appointment Date/Time Appointment Type Appointme nt Facility Name Aug 12, 2024 09:30 AM AMBULATORY - MEDICINE [place] [facility] Aug 22, 2024 09:00 AM AMBULATORY - MEDICINE [place] [facility] Sep 21, 2024 09:00 AM AMBULATORY - MEDICINE [place] [facility] Sep 21, 2024 10:00 AM AMBULATORY - MEDICINE [place] [facility] Nov 28, 2024 09:30 AM [facility] [place] [facility] Dec 02, 2024 08:30 AM AMBULATORY - MEDICINE [facility] NTRL WSN [facility] Active, Pending, and Scheduled Orders This section includes a listing of several types of active, pending, and scheduled orders, including clinic medications orders, diagnostic test orders, procedure orders and consult orders; where the start date of the order is 45 days before the date of the Encounter or 45 days after the date of theEncounter. The data comes from all [facility]. Test Date/Time Test Type Test Details Facility Name Jul 13, 2024 09:58 AM Consult Order PODIATRY/N HM OUTPT Cons Corporate Travel Agent's Choice [facility] Social History: Smoking Status (Most current) and Tobacco Use (All prior to encounter date) This section includes the most current, and the historical, smoking and tobacco- related health factors from the [place] facility where the Encounter took place. Current Smoking Status This section includes the most current smoking, or tobacco-related health factor, from the [place] facility where the Encounter took place. Date/Time Current Smoking Status Comment Facil it Nov 27, 2023 11:00 AM VA-TOBACCO FORMER USER [facility] Tobacco Use History This section includes a history of the smoking, or tobacco-related health factors, that were collected on or before the date of the Encounter. The data comes from the [place] facility where the Encounter took place. Date/Time Smoking Status/Tobac co Use Comment Facility Nov 27, 2023 11:00 AM [place]-TOBACCO QUIT 15 YRS OR MORE [facility] Dec 02, 2022 08:00 AM VA-TOBACCO FORMER USER [facility] Dec 02, 2022 08:00 AM VA-TOBACCO QUIT 15 YRS OR MORE [facility] [place] [facility] Nov 05, 2021 10:30 AM VA-TOBACCO FORMER USER [facility] Nov 05, 2021 10:30 AM VA-TOBACCO QUIT 1 TO < 5 YRS [facility] Sep 14, 2020 02:00 PM VA-TOBACCO FORMER USER [facility] Sep 14, 2020 02:00 PM VA-TOBACCO QUIT 5 TO < 15 YRS [facility] Jan 22, 2018 03:40 PM QUIT TOBACCO USE > 7 YEARS AGO [facility] Jun 04, 2016 02:01 PM CURRENT SMOKER been smoking pass 20 yrs [facility] Jun 04, 2016 02:01 PM V1-PT DECLINES REF TO TOBACCO CESS [facility] Jun 04, 2016 02:01 PM V1-PT THINKING ABOUT QUIT TOBACCO USE [facility] Jul 18, 2014 03:31 PM V1-PT DECLINES REF TO TOBACCO CESS PRGM [facility] Jul 18, 2014 03:31 PM V1-PT DECLINES TOBACCO CESSATION MEDS [facility] Jul 18, 2014 03:31 PM V1-PT NOT INTERESTED IN QUIT TOBACCO USE [facility] [place] [facility] Jan 09, 2014 10:43 AM CURRENT SMOKER pt smokes 1 pk of cigarettes per day. [facility] [place] [facility] Jan 09, 2014 10:43 AM V1-PT THINKING ABOUT QUIT TOBACCO USE [facility] Aug 28, 2003 10:47 AM CURRENT SMOKER one pack q 6 days - he has cut down from 3 PPD. He is in the process of quitting [facility] Encounter Notes: All associated encounter notes This section contains the clinical notes associated to the Encounter. Date/Time Encounter Note(s) Provider Source Aug 10, 2024 02:29 PM NONVA NOTE: LOCAL TITLE: [facility] SELF PRESENTING CARE COORD PLAN STANDARD TITLE: NONVA NOTE DATE OF NOTE: AUG 10, 2024@14:29 ENTRY DATE: AUG 10, 2024@14:29:57 AUTHOR: SONNY BOGGS EXP COSIGNER: URGENCY: STATUS: COMPLETED Emergency Notification Intake Date Presenting to the Facility: Jun Method of Contact: Notified from ECR worklist Notification ID: [id number] [facility] Referral #: [id number] [facility] Name: Hospital: [facility] Address: City: [place] State: [place] Zip Code: Phone : Community Facility Point of Contact: Name: Marina Phone: Chief complaint: CHEST PAIN, LOSS OF VISION, DIFFICULTY BREATHING, SOB, SZ, [facility] EMS Primary Diagnosis: Disposition Discharged Date of discharge: Jun Discharge to Comment: ER Only /gaetano/ SONNY RITCHIE Signed: 08/10/2024 14:31 Receipt Acknowledged By: 08/10/2024 15:20 /es/ Melonie RUFF,RN,CCM TRANSFER/TRAVELING COORDINATOR SONNY OBGGS DIXON
--- OUTSIDE RECORDS SUMMARY | 2024-11-01 08:05 | XMS_ITS ---
Author Name [facility] [place] [facility] [place] [facility] [facility] [place] Address [address] [place] [address] Care Team Providers Care Datawarehouse Developer Name Role Phone ELIZABET ROBINS Primary Care [...] Paul's Name Patient's Relationship to Policy Paul [facility] CE ORGANIZ [facility] AC Apr 18, 2018 [id number] WILLIS,MAR JUDITH SPOUSE ANTHEM BCBS OF [place] ([place]) [facility] CE ORGANIZ [facility] Apr 18, 2018 [id number] WILLIS,MAR JUDITH SPOUSE BCBS [facility] CE ORGANIZ [facility] SHARE ACTIV E Apr 18, 2018 [id number] WILLIS,MAR JUDITH SPOUSE BCBS OF [facility] CE ORGANIZ [facility] Apr 18, 2018 [id number] WILLIS,MAR JUDITH PATIENT BCBS OF [facility] CE ORGANIZ BRENDA MCCABE [facility] Apr 18, 2018 [id number] WILLIS,MAR JUDITH SPOUSE BCBS OF [place] PREFERRED PROVIDER ORGANIZAT ION (PPO) BRENDA MCCABE [facility] AC Apr 18, 2018 [id number] WILLIS,MAR JUDITH SPOUSE BCBS OF [facility] CE ORGANIZ BRENDA MCCABE [facility] ACT Apr 18, 2018 [id number] WILLIS,MAR JUDITH SPOUSE BCBS OF [facility] CE ORGANIZ BRENDA MCCABE [facility] AC Apr 18, 2018 [id number] [phone] WILLIS,MAR JUDITH SPOUSE [place] PRESCRIPT ION RX Oct 19, 2022 [id number] WILLIS,MAR JUDITH SPOUSE [place] PRESCRIPT ION RX22M A Oct 19, 2022 [id number] WILLIS,LAVELLE AEL PATIENT [place] PRESCRIPT ION RX22M B Oct 19, 2022 [id number] WILLIS,LAVELLE AEL PATIENT [place] PRESCRIPT ION BRENDA MCCABE [facility] AC Oct 19, 2022 [id number] WILLIS,ALVELLE AEL SPOUSE [place] PRESCRIPT ION RX22M B Oct 19, 2022 RX22MB [id number] WILLIS,MAR JUDITH SPOUSE [place] PRESCRIPT ION BCBS OF [place] Oct 19, 2022 [id number] WILLIS, SPOUSE [place] ([id number]) PRESCRIPT I[place] OF [place] Oct 19, 2022 [id number] [phone] WILLIS,MAR JUDITH SPOUSE [place] BC[place] ([facility] CE ORGANIZ [facility] AC Apr 18, 2018 [id number] WILLIS,EDILBERTO WONG SPOUSE [employer] PRESCRIPT ION [place] 2018 L4TA [id number] WLILIS,EDILBERTO WONG SPOUSE [employer] ([id number]) PRESCRIPT ION Apr 18, 2018 L4TA [id number] WILLIS,EDILBERTO SOTELOZA SPOUSE [employer] ([id number]) PRESCRIPT ION L4TA* Apr 18, 2020 L4TA [id number] WILLISEDILBERTOA SPOUSE [employer] ([id number]) PRESCRIPT ION Apr 18, 2018 L4TA [id number] WILLIS,EDILBERTO SOTELOZA SPOUSE [employer] ([id number]) PRESCRIPT ION Apr 18, 2018 L4TA [id number] WILLIS,EDILBERTO WONG SPOUSE [employer] ([id number]) PRESCRIPT ION L4TA* Apr 18, 2018 L4TA [id number] WILLISEDILBERTO SPOUSE [employer] ([id number]) PRESCRIPT ION L4TA Apr 18, 2018 L4TA [id number] WILLISEDILBERTO SPOUSE [employer]-MINOR BROGATION PRESCRIPT ION BCBS OF [place] Apr 18, 2020 L4TA [id number] WILLIS,EDILBERTO WONG SPOUSE [facility] CE ORGANIZAT ION W/OUT OF NETWORK BENEFITS [facility] ACT Apr 18, 2018 [id number] WILLISEDILBERTO SPOUSE [place] BCBS [facility] (BLUECARD) [facility] CE ORGANIZAT ION [facility] AC Apr 18, 2018 [id number] [phone] WILLISEDILBERTO SPOUSE MEDICARE (WNR) MEDICARE (M) PART A Mar 19, 1990 PART A [id number] WILLIS,LAVELLE AEL PATIENT MEDICARE (WNR) MEDICARE (M) PART A Mar 19, 1990 PART A [id number] WILLIS,LAVELLE AEL PATIENT MEDICARE (WNR) MEDICARE (M) PART A Mar 19, 1990 PART A [id number] WILLIS,LAVELLE AEL PATIENT MEDICARE (WNR) MEDICARE (M) PART A Mar 19, 1990 PART A [id number] WILLIS,LAVELLE AEL PATIENT MEDICARE (WNR) MEDICARE (M) PART A Mar 19, 1990 PART A [id number] WILLIS,LAVELLE AEL PATIENT MEDICARE (WNR) MEDICARE (M) PART A Mar 19, 1990 PART A [id number] WILLIS,LAVELLE AEL PATIENT MEDICARE (WNR) MEDICARE () PART A Mar 19, 1990 PART A [id number] [phone] [id number] WILLIS,LAVELLE AEL PATIENT MEDICARE (WNR) MEDICARE () PART A Mar 19, 1990 PART A [id number] WILLIS,LAVELLE AEL PATIENT MEDICARE (WNR) MEDICARE (M) PART A Mar 19, 1990 PART A [id number] WILLIS,LAVELLE AEL PATIENT MEDICARE (WNR) MEDICARE (M) PART A Mar 19, 1990 PART A [id number] WILLIS,LAVELLE AEL PATIENT MEDICARE (WNR) MEDICARE () PART A Mar 19, 1990 PART A [id number] WILLIS,LAVELLE AEL PATIENT Selected Encounter This section includes the information on record at [place] for the Encounter. 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 This section includes future appointments and future orders which are active, pending or scheduled. Future Appointments This section includes appointments that were scheduled to occur 6 months from the date of the Encounter, up to a maximum of 20 appointments. The data comes from all [facility]. Appointment Date/Time Appointment Type Appointme nt Facility Name Aug 12, 2024 09:30 AM AMBULATORY - MEDICINE [facility] Aug 22, 2024 09:00 AM AMBULATORY MEDICINE [facility] Sep 21, 2024 09:00 AM AMBULATORY - MEDICINE [facility] Sep 21, 2024 10:00 AM AMBULATORY MEDICINE [facility] [place] [facility] Nov 28, 2024 09:30 AM AMBULATORY MEDICINE [facility] Dec 02, 2024 08:30 AM AMBULATORY MEDICINE [facility] Active, Pending, and Scheduled Orders This section includes a listing of several types of active, pending, and scheduled orders, including clinic medications orders, diagnostic test orders, procedure orders and consult orders; where the start date of the order is 45 days before the date of the Encounter or 45 days after the date of theEncounter. The data comes from all [facility]. Test Date/Time Test Type Test Details Facility Name Jul 13, 2024 09:58 AM Consult Order PODIATRY/N HM OUTPT Cons Automobile Brake [place] [facility] Vital Signs: All taken on the encounter date This section contains inpatient and outpatient Vital Signs collected on the date of the Encounter. Date/Time Temperature Pulse Blood Pressure Respiratory Rate SP02 Pain Height Weight Body Mass Index Source Jul 13, 2024 09:47 AM 88 122/86 16 94 4 [place] [facility] [place] [facility] Immunizations: All administered on the encounter date This section contains immunizations associated to the Encounter. Immunization Series Date Issued Reaction Comments COVID-19 (MODERNA), MRNA, LN P-S, PF, 50 MCG/0.5 ML (AGES 12+ YEARS) Jul 13, 2024 Social History: Smoking Status (Most current) [...] place. Date/Time Current Smoking Status Comment [facility] Nov 27, 2023 11:00 AM VA-TOBACCO QUIT 15 YRS OR MORE [place] [facility] [place] [place] [facility] Tobacco Use History This section includes a history of the smoking, or tobacco-related health factors, that were collected on or before the date of the Encounter. The data comes from the [place] facility where the Encounter took place. Date/Time Smoking Status/Tobac co Use Comment Facility Nov 27, 2023 11:00 AM VA-TOBACCO QUIT 15 YRS OR MORE [facility] [place] [facility] Dec 02, 2022 08:00 AM VA-TOBACCO FORMER USER [facility] [place] [facility] Dec 02, 2022 08:00 AM VA-TOBACCO QUIT 15 YRS OR MORE [facility] [place] [facility] Nov 05, 2021 10:30 AM VA-TOBACCO FORMER USER [facility] [place] [facility] Nov 05, 2021 10:30 AM VA-TOBACCO QUIT 1 TO < 5 YRS [facility] [place] [facility] Sep 14, 2020 02:00 PM VA-TOBACCO FORMER USER [facility] [place] [facility] Sep 14, 2020 02:00 PM VA-TOBACCO QUIT 5 TO < 15 YRS [facility] [place] [facility] Jan 22, 2018 03:40 PM QUIT TOBACCO USE > 7 YEARS AGO [facility] [place] [facility] Jun 04, 2016 02:01 PM CURRENT SMOKER been smoking pass 20 yrs [facility] Jun 04, 2016 02:01 PM V1-PT DECLINES REF TO TOBACCO CESS [facility] Jun 04, 2016 02:01 PM V1-PT THINKING ABOUT QUIT TOBACCO USE [facility] Jul 18, 2014 03:31 [...] the process of quitting [facility] Encounter Notes: All associated encounter notes This section contains the clinical notes associated to the Encounter. Date/Time Encounter Note(s) Provider Source Jul 13, 2024 09:48 AM PREVENTIVE MEDICINE NURSING NOTE: LOCAL TITLE: CLINICAL REMINDERS/NURSING STANDARD TITLE: PREVENTIVE MEDICINE NURSING NOTE DATE OF NOTE: JUL 13, 2024@09:48 ENTRY DATE: JUL 13, 2024@09:48:39 AUTHOR: BINA LANCASTER EXP COSIGNER: URGENCY: STATUS: COMPLETED Advance Directive Screen MH AD: Patient does not have a completed advance directive on file at any facility, [place] or outside. S/he is not interested in completing one at this time. The patient received education about Advance Directives and written notification of his/her rights. Influenza Immunization: The patient has received the seasonal influenza vaccine for the current season at another location. Documented: INFLUENZA, UNSPECIFIED FORMULATION Historical Date Administered: Jul 03, 2024 Outside Location: [facility] Information Source: FROM PATIENT'S WRITTEN RECORD Sexual Orientation: The patient thinks of their sexual orientation as: Straight or Heterosexual COVID-19 Immunization: Moderna Monovalent (Spikevax) Administered: COVID-19 (MODERNA), MRNA, LNP-S, PF, 50 MCG/0.5 ML (AGES 12+ YEARS) Date Administered: Jul 13, 2024 09:30 Series: Booster Block Cableman: MODERNA [employer] Lot: [id number] Exp Date: March 11, 2025 [facility]: [id number] Admin Route/Site: INTRAMUSCULAR/LEFT DELTOID Dosage: 0.5mL Vaccine Information Statement(s): COVID-19 MRNA VACCINE (12+ YRS) VACCINE VIS Aug 06, 2023 ([facility]) Order By: Policy Administered By: Bina Lancaster Override Reason: Changed mind Vaccine administered without complications. /gaetano/ BINA LANCASTER, MSN, RN, CNL PRIMARY CARE TEAM NURSE Signed: 07/13/2024 09:51 BINA LANCASTER [place] [facility] Jul 13, 2024 09:44 AM PRIMARY CARE NURSE PRACTITIONER OUTPATIENT NOTE: LOCAL TITLE: NURSE PRACTITIONER OUTPATIENT NOTE STANDARD TITLE: PRIMARY CARE NURSE PRACTITIONER OUTPATIENT NOTE DATE OF NOTE: JUL 13, 2024@09:44 ENTRY DATE: JUL 13, 2024@09:44:36 AUTHOR: ELIZABET ROBINS EXP COSIGNER: URGENCY: STATUS: COMPLETED Pt is a 68 who comes in for follow up of medical problems as noted below. HPI: Mr metcalf has h/o prior SZ disorder and had been on many antiepileptic SZ meds over the years. He admites to not being on anything othert than THC tinture which he notes has kept them at bay until recently Was admitted to [facility] for SZ activity, sx starting with headache into neck . He had CT scan of brain which was unrekable neuro was consulted who recommedned MRI brain epileltic procotal He endded up having witness SZ while admitted also had EEG and was followed by neuro was there for about 5 days before getting dischraged on Valproic acid 750mg daily, This far SZ free and no issues with taking medication. He has appt already [facility] neurology Dr Hardin in a few weeks. He has enought medication to las him until then. Currently here with his he does not drive PMH: Active problems - Computerized Problem List [...] caused by toxin 12. Diverticulosis 2016 ct [facility] 13. Galeas's esophagus EGD 09/02/16 Dr. Hampton 14. Rosacea 15. Deep venous thrombosis of upper extremity LUE, basilic vein 16. Nephrolithiasis On CT at [facility] 02/07/2015. 17. Hyperlipidemia Total chol/HDL/LDL/trigs: 154/41/84/145 (04/08/22). F/U to discuss statin w/ T2DM 18. Lower urinary tract symptoms due to benign prostatic hypertrophy (SNOMED CT PSA normal (04/08/22) 19. Family history of prostate cancer Father and three brothers. 20. Schizoaffective disorder (SNOMED CT 32779013) 21. Alcohol dependence (SNOMED CT 50069753) episodic 22. Periodontal Disease NEC 23. GERD [...] ACTIVE MOUTH AT BEDTIME FOR CHOLESTEROL 6) DICLOFENAC NA 75MG EC TAB TAKE ONE TABLET BY MOUTH ACTIVE TWICE DAILY NEEDED FOR PAIN/INFLAMMATION 7) DM 10/GUAIFENESN 100MG/5ML (AF & SF) [...] MOUTH TWICE DAILY ACTIVE 19 Total Medications Allergies: AKWA TEARS, DIFLUCAN, PHENYTOIN, FLUOROMETHOLONE, REFRESH TEARS, OXYCODONE LEVETIRACETAM VITAL SIGNS: 97.8 F [36.6 C] (06/28/2024 11:41) 88 (07/13/2024 09:47) 16 (07/13/2024 09:47) 122/86 (07/13/2024 09:47) 4 (07/13/2024 09:47) 66 in [167.6 cm] (06/28/2024 11:41) 214 lb [97.07 kg] (06/28/2024 11:41) BMI: 34.6 ROS General: no fever, no unexplained weight loss or gain CV: denies CP, palpitations Lung: denies Dyspnea or wheezing Abd: denies n/v/d gets nauseous post SZ Psych: denies SI Neuro: denies dizziness or recent SZ PHYSI KACI EXAM GENERAL: well appearing in NAD, speeking in clear sentences. SKIN: Clean, dry [...] 12/09/2024 09:00 CWM/NO/PACT 5 ASSESSMENT AND PLAN: 1)Seizure -Curerntly doing well on Valproic acid 750mg -Has neuro appt upcoming -Counseled on mass sate specific dricing restriction 6 months ost SZ however he does not drive anyway SZ precaustions reviewd for in and outside of home reduce sterss, ensure healthy sleep and eating healthy meals has insomnia we discussed talking about this next visit once SZ more stable Return to clinic to see me in [...] of active outpatient prescriptions dispensed from this [place] (local) and dispensed from another [place] or DoD facility (remote) as well as [...] provider. /gaetano/ CIERRA GREGORY Nurse Practitioner Signed: 07/14/2024 13:09 ELIZABET ROBINS [place] [facility]
--- OUTSIDE RECORDS SUMMARY | 2024-11-01 08:05 | XMS_ITS | Encounter Summary ---
Author Name [facility] [place] [facility] [place] Organization [facility] [place] [facility] [place] Address [address] [place] [address] Care Team Providers Care Compressor Station Chief Engineer Name Role Phone ELIZABET ROBINS Primary [...] Paul's Name Patient's Relationship to Policy Paul [facility] CE ORGANIZ [facility] AC Apr 18, 2018 [id number] WILLIS,MAR JUDITH SPOUSE ANTHEM BCBS OF [place] ([place]ARD) [facility]GANIZ [facility] Apr 18, 2018 [id number] WILLIS,MAR JUDITH SPOUSE BCBS FORMERLY [facility] CE ORGANIZ [facility] ACTIV E Apr 18, 2018 [id number] WILLIS,MAR JUDITH SPOUSE BCBS OF [facility] CE ORGANIZ [facility] Apr 18, 2018 [id number] WILLIS,MAR JUDITH PATIENT BCBS OF [facility] CE ORGANIZ BRENDA MCCABE [facility] Apr 18, 2018 [id number] WILLIS,MAR JUDITH SPOUSE BCBS OF [place] PREFERRED PROVIDER ORGANIZAT ION (PPO) BRENDA MCCABE [facility] AC Apr 18, 2018 [id number] [phone] WILLIS,MAR JUDITH SPOUSE BCBS OF [facility] CE ORGANIZ BRENDA MCCABE [facility] ACT Apr 18, 2018 [id number] WILLIS,MAR JUDITH SPOUSE BCBS OF [facility] CE ORGANIZ BRENDA MCCABE [facility] AC Apr 18, 2018 [id number] WILLIS,MAR JUDITH SPOUSE [place] PRESCRIPT ION RX22M A Oct 19, 2022 [id number] WILLIS,LAVELLE AEL PATIENT [place] PRESCRIPT ION RX22M B Oct 19, 2022 [id number] WILLIS,LAVELLE AEL PATIENT [place] PRESCRIPT ION BRENDA MCCABE [facility] AC Oct 19, 2022 [id number] [phone] WILLIS,LAVELLE AEL SPOUSE [place] PRESCRIPT ION BC[place] OF [place] Oct 19, 2022 RX22MA [id number] WILLIS, SPOUSE CAREMARK PRESCRIPT ION RX22M B Oct 19, 2022 RX22MB [id number] [phone] WILLIS,MAR JUDITH SPOUSE [place] PRESCRIPT ION RX Oct 19, 2022 [id number] [phone] WILLIS,MAR JUDITH SPOUSE [place] ([id number]) PRESCRIPT ION [place] OF [place] Oct 19, 2022 [id number] WILLIS,MAR JUDITH SPOUSE [place] BCBS ([facility] CE ORGANIZ [facility] AC Apr 18, 2018 [id number] WILLIS,EDILBERTO SOTELOZA SPOUSE [employer] PRESCRIPT I[place] 2018 L4TA [id number] WILLIS,EDILBERTO SOTELOZA SPOUSE [employer] ([id number]) PRESCRIPT ION Apr 18, 2018 L4TA [id number] WILLIS,EDILBERTO SOTELOZA SPOUSE [employer] ([id number]) PRESCRIPT ION L4TA* Apr 18, 2020 L4TA [id number] WILLIS,EDILBERTO PALAFOXA SPOUSE [employer] ([id number]) PRESCRIPT ION L4TA* Apr 18, 2018 L4TA [id number] WILLIS,EDILBERTO PALAFOXA SPOUSE [employer] ([id number]) PRESCRIPT ION L4TA Apr 18, 2018 L4TA [id number] WILLIS,EDILBERTO SOTELOZA SPOUSE [employer] ([id number]) PRESCRIPT ION Apr 18, 2018 L4TA [id number] WILLISEDILBERTO SPOUSE [employer] ([id number]) PRESCRIPT ION Apr 18, 2018 L4TA [id number] WILLIS,EDILBERTO WNOG SPOUSE EXPRESS S[employer]-MINOR BROGATION PRESCRIPT ION BCBS OF [place] Apr 18, 2020 L4TA [id number] WILLIS,EDILBERTO WONG SPOUSE [facility] ([facility]) [facility] CE ORGANIZAT ION W/OUT OF NETWORK BENEFITS [facility] ACT Apr 18, 2018 [id number] [phone] WILLISEDILBERTO SPOUSE [place] BCBS [facility] (BLUECARD) [facility] CE ORGANIZAT ION [facility] AC Apr 18, 2018 [id number] WILLIS,EDILBERTO WONG SPOUSE MEDICARE (WNR) MEDICARE (M) PART A Mar 19, 1990 PART A [id number] WILLISLAVELLE AEL PATIENT MEDICARE (WNR) MEDICARE (M) PART A Mar 19, 1990 PART A [id number] WILLIS,LAVELLE AEL PATIENT MEDICARE (WNR) MEDICARE (M) PART A Mar 19, 1990 PART A [id number] WILLIS,LAVELLE AEL PATIENT MEDICARE (WNR) MEDICARE (M) PART A Mar 19, 1990 PART A [id number] WILLIS,LAVELLE AEL PATIENT MEDICARE (WNR) MEDICARE (M) PART A Mar 19, 1990 PART A [id number] WILLIS,LAVELLE AEL PATIENT MEDICARE (WNR) MEDICARE (M) PART A Mar 19, 1990 PART A [id number] WILLIS,LAVELLE AEL PATIENT MEDICARE (WNR) MEDICARE (M) PART A Mar 19, 1990 PART A [id number] [phone] [id number] WILLIS,LAVELLE AEL PATIENT MEDICARE (WNR) MEDICARE (M) PART A Mar 19, 1990 PART A [id number] WILLIS,LAVELLE AEL PATIENT MEDICARE (WNR) MEDICARE (M) PART A Mar 19, 1990 PART A [id number] WILLIS,LAVELLE AEL PATIENT MEDICARE (WNR) MEDICARE (M) PART A Mar 19, 1990 PART A [id number] [phone] WILLIS,LAVELLE AEL PATIENT MEDICARE (WNR) MEDICARE (M) PART A Mar 19, 1990 PART A [id number] [phone] WILLIS,LAVELLE AEL PATIENT Selected Encounter This section includes the information on record at [place] for the Encounter. Date/Time Encounter Type Encounter Description Reason Provider Source Sep 21, 2024 09:00 AM MTMS BY AB [facility] ICD-10-CM E11.9 Type 2 diabetes mellitus without complications EMILY PERSON Encounter Template Text not used by [place] Assessments - Encounter Diagnoses This section includes the primary and secondary diagnoses documented for the Encounter. Date/Time Primary/Secondary Diagnosis Diagnosis Name Provider Source Sep 21, 2024 09:28 AM PRIMARY Type 2 diabetes mellitus without complications EMILY PERSON [facility] Plan of Treatment: Future Appointments (+ 6 months) and Future Tests (+/- 45 days) The Plan of Treatment section includes future care activities for the patient [facility] This section includes future appointments and future orders which are active, pending or scheduled. Future Appointments This section includes appointments that were scheduled to occur 6 months from the date of the Encounter, up to a maximum of 20 appointments. The data comes from all [place] treatment facilities. Appointment Date/Time Appointment Type Appointme nt Facility Name Nov 28, 2024 09:30 AM AMBULATORY - MEDICINE [facility] Dec 02, 2024 08:30 AM AMBULATORY MEDICINE [facility] Mar 20, 2025 09:00 AM AMBULATORY MEDICINE [facility] Lab Results: +/- 30 days of the encounter This section includes the Chemistry and Hematology Lab Results on record with [place] for the patient. Radiology Reports and Pathology Reports are provided separately, in subsequent sections. Lab Results This section contains the Chemistry/Hematology Results that were resulted 30 days before or 30 daysafter the date of the Encounter. Date/Time Source Result Type Result - Unit Interpretation Reference Range Comment Sep 21, 2024 10:35 AM [facility] MICROALBUMIN CREATININE RATIO PANEL Specimen Type: URINE No comment entered. Ordering Provider: EMILY PERSON Report Released Date/Time: Sep 21, 2024 09:08 AM Reporting Lab: [facility] [address] [facility] [address] Performing Lab: [facility] [address] [facility] [address] MICROALBUMIN/CR EATININE RATIO 7.3 mg/g 0-29.9 MICROALBUMIN,QU ANTITATIVE 0.6 mg/dL RR UNAVAIL CREATININE URINE 81.65 mg/dL Sep 21, 2024 09:30 AM [facility] PHENOBARBITAL (q) Specimen Type: SERUM Comment: Test Performed by [facility], [employer] [facility], [address] [place] [address] Danis Lewis M.D., Ph.D., Director of Laboratories , CLIA [id number] TEST PERFORMED AT: , Ordering Provider: EMILY PERSON Report Released Date/Time: Sep 21, 2024 09:08 AM Reporting Lab: [facility] [address] [facility] [address] Performing Lab: [facility] [address] [facility], [address] [place] [id number] PHENOBARBITAL (q) 5.2 mg/L L 15.0-40.0 Sep 21, 2024 09:30 AM [facility] HEMOGLOBIN A1C PANEL Specimen Type: BLOOD Comment: Values obtained from A1C measurements can vary. For atypical A1C assays, a reported value of 7.0 could actually be between 6.72 and 7.28 if measured by a reference method. A reported value of 9.0 could actually be between 8.73 and 9.27. Ref: http://www.ng sp.org/CAPdat a.asp Ordering Provider: EMILY PERSON Report Released Date/Time: Sep 21, 2024 09:08 AM Reporting Lab: [address] [address] Performing Lab: [address] [address] HEMOGLOBIN A1C 6.1 H 4.0-5.6 Sep 21, 2024 09:30 AM [facility] LIVER FUNCTION Specimen Type: SERUM No comment entered. Ordering Provider: EMILY PERSON Report Released Date/Time: Sep 21, 2024 09:08 AM Reporting Lab: [address] [address] Performing Lab: [address] [address] PROTEIN,TOTAL 7.8 g/dL 6.0-8.3 ALBUMIN 4.4 g/dL 3.5-5.0 ALKALINE PHOSPHATASE 89 U/L 40-150 AST 42 U/L H 5-34 ALT 52 U/L BILIRUBIN, TOTAL 0.3 mg/dL 0.2-1.2 Sep 21, 2024 09:30 AM [facility] BASIC METABOLIC PANEL (non-fasting) Specimen Type: SERUM No comment entered. Ordering Provider: EMILY PERSON Report Released Date/Time: Sep 21, 2024 09:08 AM Reporting Lab: [facility] [address] [facility] [address] Performing Lab: [facility] [address] [facility] [address] UREA NITROGEN 10 mg/dL 7-25 GLUCOSE 107 [...] and tobacco- related health factors from the [place] facility where the Encounter took place. Current Smoking Status This section includes the most current smoking, or tobacco-related health factor, from the [place] facility where the Encounter took place. Date/Time Current Smoking Status Comment Enrique sotelo Nov 27, 2023 11:00 AM VA-TOBACCO FORMER USER [facility] Tobacco Use History This section includes a history of the smoking, or tobacco-related health factors, that were collected on or before the date of the Encounter. The data comes from the [place] facility where the Encounter took place. Date/Time Smoking Status/Tobac co Use Comment Facility Nov 27, 2023 11:00 AM VA-TOBACCO QUIT 15 YRS OR MORE [facility] Dec 02, 2022 08:00 AM VA-TOBACCO [facility] Dec 02, 2022 08:00 AM VA-TOBACCO QUIT 15 YRS OR MORE [facility] Nov 05, 2021 10:30 AM VA-TOBACCO [facility] Nov 05, 2021 10:30 AM VA-TOBACCO QUIT 1 TO < 5 YRS [facility] Sep 14, 2020 02:00 PM VA-TOBACCO FORMER USER [facility] Sep 14, 2020 02:00 PM VA-TOBACCO QUIT 5 TO < 15 YRS [facility] Jan 22, 2018 03:40 PM QUIT TOBACCO USE > 7 YEARS AGO [facility] Jun 04, 2016 02:01 PM CURRENT SMOKER been smoking pass 20 yrs [facility] Jun 04, 2016 02:01 PM V1-PT DECLINES REF TO TOBACCO CESS PRGM [facility] Jun 04, 2016 02:01 PM V1-PT THINKING ABOUT QUIT TOBACCO USE [facility] Jul 18, 2014 03:31 PM V1-PT DECLINES REF TO TOBACCO CESS PRGM [facility] Jul 18, 2014 03:31 PM V1-PT DECLINES TOBACCO CESSATION MEDS [facility] Jul 18, 2014 03:31 PM V1-PT NOT INTERESTED IN QUIT TOBACCO USE [facility] Jan 09, 2014 10:43 AM CURRENT SMOKER pt smokes 1 pk of cigarettes per day. [facility] Jan 09, 2014 10:43 AM V1-PT THINKING ABOUT QUIT TOBACCO USE [facility] Aug 28, 2003 10:47 AM CURRENT SMOKER one pack q 6 days - he has cut down from 3 PPD. He is in the process of quitting [facility] Encounter Notes: All associated encounter notes This section contains the clinical notes associated to the Encounter. Date/Time Encounter Note(s) Provider Source Sep 26, 2024 08:08 AM LETTERS: LOCAL TITLE: PATIENT LETTER (B) STANDARD TITLE: LETTERS DATE OF NOTE: SEP 26, 2024@08:08 ENTRY DATE: SEP 26, 2024@08:08:53 AUTHOR: ELLE PRESSLEY EXP COSIGNER: URGENCY: STATUS: COMPLETED CHAYA PEDRO [address] [place] [address], [id number] Date: SEP 26, 2024 Dear CHAYA PEDRO, Your recent tests at the [place] were reviewed by your clinician. The items that are listed below are normal or unchanged and do not require any change in plan unless noted in the comment section. SERUM Sep 21 Reference 2023 09:30 Units Ranges GLUCOSE 107 H mg/dL 65 - 100 BUN 10 mg/dL 7 - 25 CREATININE 0.85 mg/dL .5 - 1.4 eGFR(IDMS) Ref: >=60 CREAT mg/dL .5 - 1.5 eGFR See Eval Ref: See Eval Sodium 141 mmol/L 135 - 145 K+/Pot 4.5 mmol/L 3.5 - 5 CL 107 mmol/L 100 - 110 CO2 20 mEq/L 20 - 30 CA mg/dL 8.5 - 10.2 UricAci mg/dL 3.5 - 7.2 NH3/Amm PO4 mg/dL 2.5 - 5 T. PROT 7.8 g/dL 6 - 8.3 ALBUMIN 4.4 g/dL 3.5 - 5 T BILI 0.3 mg/dL .2 - 1.2 D. BILI mg/dL 0 - .5 AST 42 H U/L 5 - 34 ALT 52 U/L <6 - 55 GGT U/L 10 - 65 ALK EULOGIO 89 U/L 40 - 150 BLOOD Sep 21 Reference 2023 09:30 Units Ranges HgbA1c Hgb-A1c % 4.4 - 6.1 Hgb-A1c % 3 - 6.1 HGB A1C % 4.4 - 6.4 Hgb-A1C % 3.4 - 6.1 HGB-A1c 6.1 H % 4 - 5.6 DATE TIME SPECIMEN TEST VALUE Ref ranges Sep 21, 2024@10:35 URINE mALB/Cr: 7.3 mg/G 0 - 29.9 Sep 21, 2024@10:35 URINE MICROALBUMIN,QUANTITATIVE:0 .6 mg/dL Sep 21, 2024@10:35 URINE CREATININE URINE: 81.65 mg/dL ---- MYSOLINE (PRIMIDONE) & PHENOBARBITAL ---- SERUM Sep 21 Reference 2023 09:30 Units Ranges PHENOB 5.2 L mg/L Comments: Will fax over results of phenobarbital level to [facility] for dose adjustment as needed. Respectfully, Emily Person PharmD, [facility] ELLE PRESSLEY [place] [facility] [place] [facility] Sep 21, 2024 08:59 [facility]: LOCAL TITLE: PHARMACY CLINIC NOTE STANDARD TITLE: PHARMACY OUTPATIENT NOTE DATE OF NOTE: SEP 21, 2024@08:59 ENTRY DATE: SEP 21, 2024@08:59:37 AUTHOR: EMILY PERSON EXP COSIGNER: URGENCY: STATUS: COMPLETED CHAYA PEDRO, 68 yo DECLINED TO ANSWER MALE, presents in office for follow up visit in regards to diabetes medication management. Pt was last seen in office on 06/01/24 in which no medication changes were made. Today, pt reports he was hospitalized a few months ago for seizures. He currently takes phenobaribital which has been working. He is followed by Dr. Jeremiah Hardin who requested a phenobarb level to be drawn. Pt asks if he can have it drawn here and faxed to Dr. Hardin, no other labs were requested. Current diabetes medications: - metformin 1000 mg twice daily Medication Adherence: - takes daily Diet Patterns: patient eats on avg. 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 SMBG: Name: Chaya Pedro : 1955 ID: Information from [facility] on 06/01/2024 Patient Name: [...] 21:30 00:00 02/22/2024 117 02/23/2024 112 119 02/24/2024 114 03/04/2024 147 98 03/16/2024 127 03/22/2024 100 04/13/2024 109 05/02/2024 133 05/18/2024 138 05/31/2024 115 Date Range: 02/17/2024 - 06/01/2024 [...] 01:02 PM 115 End of information from [facility] Date FBG 06/24/2024 145 06/28/2024 124 07/22/2024 144 08/08/2024 114 08/09/2024 124 09/13/2024 120 09/21/2024 127 Average 128 SMBG assessment: FBG average increase, although still at goal HYPOGLYCEMIC Events: 0 in last 2 weeks [...] TAKE ONE TABLET BY MOUTH DAILY ACTIVE (S) FOR STOMACH ACID 10) KETOTIFEN 0.025% OPH SOLN INSTILL 1 DROP INTO EACH ACTIVE EYE TWICE DAILY NEEDED FOR ALLERGIC CONJUNCTIVITIS (IF YOU WEAR CONTACT LENSES, WAIT 10 MINUTES BEFORE INSERTING LENSES) 11) LACTOBACILLUS ACIDOPHILUS CAP TAKE 1 CAPSULE BY MOUTH ACTIVE TWICE DAILY 12) LEVOCETIRIZINE DIHYDROCHLORIDE 5MG TAB TAKE ONE ACTIVE TABLET BY MOUTH EVERY EVENING FOR ALLERGIES 13) METFORMIN HCL 1000MG TAB TAKE ONE TABLET BY MOUTH ACTIVE TWICE DAILY FOR DIABETES 14) METRONIDAZOLE 0.75% TOP GEL APPLY MODERATE AMOUNT ACTIVE TOPICALLY TWICE DAILY FOR ACNE ROSACEA 15) ONDANSETRON 4MG ORAL DISINTEGRATING TAB PLACE ONE ACTIVE TABLET ON THE TONGUE EVERY 8 HOURS NEEDED FOR NAUSEA AND VOMITING (ALLOW TABLET TO DISSOLVE ON TONGUE, AND SWALLOW WITH SALIVA) 16) PEG 400 0.4%/PROP GLYCOL 0.3% OPH SOLN INSTILL 1 DROP ACTIVE INTO EACH EYE FOUR TIMES DAILY NEEDED DRY EYE 17) PHENOBARBITAL 32.4MG TAB TAKE ONE TABLET BY MOUTH ACTIVE TWICE DAILY 18) SILDENAFIL CITRATE 25MG TAB TAKE ONE TABLET BY MOUTH ACTIVE ONCE DAILY FOR ERECTILE DYSFUNCTION TAKE 1 HOUR PRIOR TO SEXUAL ACTIVITY Inactive Outpatient Medications Status 1) AMLODIPINE BESYLATE 5MG TAB TAKE ONE TABLET BY MOUTH DISCONTINUED ONCE DAILY FOR BLOOD PRESSURE/HEART, DO NOT TAKE WITH GRAPEFRUIT JUICE 2) DICLOFENAC NA 75MG EC TAB TAKE ONE TABLET BY MOUTH TWICE DAILY NEEDED FOR PAIN/INFLAMMATION 3) DOXYCYCLINE HYCLATE 50MG CAP TAKE ONE CAPSULE BY DISCONTINUED MOUTH TWICE DAILY FOR INFECTION CAUSED BY BACTERIA (EDIT) 4) LACTOBACILLUS ACIDOPHILUS CAP TAKE 1 CAPSULE BY MOUTH DISCONTINUED TWICE DAILY FOR PROBIOTIC SUPPLEMENTATION (EDIT) 5) LIDOCAINE 5% PATCH APPLY 1 PATCH TOPICALLY EVERY 12 HOURS NEEDED (LEAVE PATCH ON FOR 12 HOURS, THEN REMOVE PATCH) Active Non-VA Medications Status 1) Non-VA MULTIVITAMIN/MINERALS CAP/TAB ONE CAP/TAB BY ACTIVE MOUTH ONCE DAILY 2) Non-VA OTHER CAP/TAB THC BY MOUTH TWICE DAILY ACTIVE 3) Non-VA VALPROIC ACID 250MG CAP 750MG BY MOUTH ONCE ACTIVE DAILY 26 Total Medications Labs: CHEM 7 TREND LAB [...] 4.3 105 19 L 255 H 11 eGFR CKD-EPI 202006/01/24 10:38 >90 SERUM LIVER [...] 154 41 3.8 84 145 Vitals: Ht: 66 in [167.6 cm] (06/28/2024 11:41) Wt: 214 lb [97.07 kg] (06/28/2024 11:41) BMI: BMI: 34.6 BP: 122/86 (07/13/2024 09:47) HR: 88 (07/13/2024 09:47) Assessment: DIABETES: Goal: A1c goal is <7% with a goal fasting BG average of 90-130mg/dL and a goal post-prandial BG average of <180mg/dL per ADA guideline. -A1c is at goal of <7% (5.8% 05/2024) CARDIOVASCULAR: Goal BP = <130/80 mmHg -Current BP is 122/86 -Lipids:wnl 06/01/24 PREVENTIVE CARE: - Most recent visit to Podiatry: see's once / year checks regularly - Most recent visit to Optometry: Type II diabetes without diabetic retinopathy or macular edema OU 01/13/24 Plan: - Medication management - CONTINUE: Metformin 1000 mg twice daily - Ordered phenobarb, added LFTs since metabolized hepatically- will ask PACT nurse to fax to specialty office. - Continue to SMBG 2x/week - Monitor for s/sx hypoglycemia and contact clinic if BG consistently <70mg/dL - Healthy dietary and lifestyle modifications encouraged - Repeat A1c:03/2025 EDUCATION -A shared decision-making approach was used in the development of this plan, involving the [place], clinician, and any caregivers present. The [place] was provided the opportunity express questions or concerns, and the plan was adjusted as needed to address these concerns. -Reviewed with any new medications, changes to the medication list, education, and plan from today's visit. Patient (and/or caregiver) verbalized understanding of the plan, including possible known risks and benefits, and had no additional questions. RTC:03/2025 Time Spent:25 mins PBM PharmD Pharmacotherapy Rem V12: PHARMACIST INTERVENTIONS: TYPE 2 DIABETES MELLITUS Medication Intervention(s) Medication monitoring, no dosage change required, continue to monitor and assess Medication monitoring or diagnostic evaluation (e.g., other labs, EKG) Medication reconciliation (changes to active VA and non-VA medication lists to reconcile differences) Changes to medication lists made Discontinue or remove medication /gaetano/ EMILY PERSON PHARMD,BCPS CLINICAL PHARMACY PRACTITIONER Signed: 09/21/2024 09:28 EMILY PERSON [facility]
--- OUTSIDE RECORDS SUMMARY | 2024-11-01 08:05 | XMS_ITS ---
Author Name [place] Address [address] [place] [address] Care Team Providers Care Ammunition Officer Name Role Phone ELIZABET ROBINS Primary [...] Paul's Name Patient's Relationship to Policy Paul [facility] CE ORGANIZ [facility] AC Apr 18, 2018 [id number] [phone] WILLIS,MAR JUDITH SPOUSE [place] OF [place] ([place]) [facility] CE ORGANIZ [facility] Apr 18, 2018 [id number] [phone] WILLIS,MAR JUDITH SPOUSE BCBS [facility] CE ORGANIZ [facility] SHARE ACTIV E Apr 18, 2018 [id number] WILLIS,MAR JUDITH SPOUSE BCBS OF [facility] CE ORGANIZ [facility] Apr 18, 2018 [id number] WILLIS,MAR JUDITH PATIENT BCBS OF [facility] CE ORGANIZ BRENDA MCCABE [facility] Apr 18, 2018 [id number] WILLIS,MAR JUDITH SPOUSE BCBS OF [place] PREFERRED PROVIDER ORGANIZAT ION (PPO) BRENDA MCCABE [facility] AC Apr 18, 2018 [id number] WILLIS,MAR JUDITH SPOUSE BCBS OF [facility] CE ORGANIZ BRENDA MCCABE [facility] ACT Apr 18, 2018 [id number] WILLIS,MAR JUDITH SPOUSE BCBS OF [facility] CE ORGANIZ BRENDA MCCABE [facility] AC Apr 18, 2018 [id number] [phone] WILLIS,MAR JUDITH SPOUSE CAR[place] PRESCRIPT ION RX22M B Oct 19, 2022 [id number] [id number] WILLIS,MAR JUDITH SPOUSE [place] PRESCRIPT I[place] Oct 19, 2022 RX22MA [id number] WILLIS, SPOUSE CAREMARK PRESCRIPT ION RX22M A Oct 19, 2022 RX22MA [id number] WILLIS,LAVELLE AEL PATIENT CAREMARK PRESCRIPT ION RX22M B Oct 19, 2022 RX22MB [id number] WILLIS,LAVELLE AEL PATIENT CAREMARK PRESCRIPT ION BRENDA MCCABE [facility] AC Oct 19, 2022 RX22MB [phone] WILLIS,LAVELLE AEL SPOUSE CAREMARK PRESCRIPT ION RX Oct 19, 2022 RX22MB [id number] [phone] WILLIS,MAR JUDITH SPOUSE [place] ([id number]) PRESCRIPT I[place] Oct 19, 2022 [id number] [id number] WILLIS,MAR JDUITH SPOUSE [place] BCBS ([facility] CE ORGANIZ BRENDA MCCABE [facility] AC Apr 18, 2018 [id number] WILLIS,EDILBERTO SOTELOZA SPOUSE EXPRESS [place] PRESCRIPT I[place]BS [place] 2018 L4TA [id number] WILLIS,EDILBERTO JUDITH SPOUSE EXPRESS SCRIPTS ([id number]) PRESCRIPT ION Apr 18, 2018 L4TA [id number] WILLIS,EDILBERTO JUDITH SPOUSE EXPRESS SCRIPTS ([id number]) PRESCRIPT ION L4TA* Apr 18, 2020 L4TA [id number] [phone] WILLIS,EDILBERTO PALAFOXA SPOUSE EXPRESS SCRIPTS ([id number]) PRESCRIPT ION L4TA* Apr 18, 2018 L4TA [id number] WILLIS,EDILBERTO PALAFOXA SPOUSE EXPRESS SCRIPTS ([id number]) PRESCRIPT ION Apr 18, 2018 L4TA [id number] WILLIS,EDILBERTO SOTELOZA SPOUSE EXPRESS SCRIPTS ([id number]) PRESCRIPT ION Apr 18, 2018 L4TA [id number] WILLIS,EDILBERTO SOTELOZA SPOUSE EXPRESS SCRIPTS ([id number]) PRESCRIPT ION L4TA Apr 18, 2018 L4TA [id number] WILLIS,EDILBERTO WONG SPOUSE EXPRESS SCRIPTS-MINOR BROGATION PRESCRIPT ION BCBS OF [place] Apr 18, 2020 L4TA [id number] WILLIS,EDILBERTO SOTELOZA SPOUSE [facility] CE ORGANIZAT ION W/OUT OF NETWORK BENEFITS [facility] ACT Apr 18, 2018 [id number] [phone] WILLISEDILBERTO SPOUSE HIGHMARK BCBS [facility] (BLUECAR) [facility] CE ORGANIZAT ION [facility] AC Apr 18, 2018 [id number] WILLIS,EDILBERTO WONG SPOUSE MEDICARE (WNR) MEDICARE (M) PART A Mar 19, 1990 PART A [id number] [phone] WILLIS,LAVELLE AEL PATIENT MEDICARE (WNR) MEDICARE (M) PART A Mar 19, 1990 PART A [id number] WILLIS,LAVELLE AEL PATIENT MEDICARE (WNR) MEDICARE (M) PART A Mar 19, 1990 PART A [id number] [phone] WILLIS,LAVELLE AEL PATIENT MEDICARE (WNR) MEDICARE (M) PART A Mar 19, 1990 PART A [id number] WILLIS,LAVELLE AEL PATIENT MEDICARE (WNR) MEDICARE (M) PART A Mar 19, 1990 PART A [id number] [phone] WILLIS,LAVELLE AEL PATIENT MEDICARE (WNR) MEDICARE (M) PART A Mar 19, 1990 PART A [id number] [phone] WILLIS,LAVELLE AEL PATIENT MEDICARE (WNR) MEDICARE (M) PART A Mar 19, 1990 PART A [id number] WILLIS,LAVELLE AEL PATIENT MEDICARE (WNR) MEDICARE (M) PART A Mar 19, 1990 PART A [id number] [phone] [id number] WILLIS,LAVELLE AEL PATIENT MEDICARE (WNR) MEDICARE (M) PART A Mar 19, 1990 PART A [id number] WILLIS,LAVELLE AEL PATIENT MEDICARE (WNR) MEDICARE (M) PART A Mar 19, 1990 PART A [id number] [phone] WILLIS,LAVELLE AEL PATIENT MEDICARE (WNR) MEDICARE (M) PART A Mar 19, 1990 PART A [id number] WILLIS,LAVELLE AEL PATIENT Selected Encounter This section includes the [place] for the Encounter. Date/Time Encounter Type Encounter Description Reason Pro vider Source Jun 28, 2024 12:00 AM Outpatient Encounter EVENT [...] 20 appointments. The data comes from all [facility]. Appointment Date/Time Appointment Type Appointme nt Facility Name Jul 08, 2024 10:30 AM [place] [facility] Jul 13, 2024 09:30 AM [place] [facility] Aug 12, 2024 09:30 AM [place] [facility] Aug 22, 2024 09:00 AM [place] [facility] Sep 21, 2024 09:00 AM [place] [facility] Sep 21, 2024 10:00 AM [place] [facility] Nov 28, 2024 09:30 AM [place] [facility] Dec 02, 2024 08:30 AM [place] [facility] Active, Pending, and Scheduled Orders This section includes a listing of several types of active, pending, and scheduled orders, including clinic medications orders, diagnostic test orders, procedure orders and consult orders; where the start date of the order is 45 days before the date of the Encounter or 45 days after the date of theEncounter. The data comes from all [facility]. Test Date/Time Test Type Test Details Facility Name Jul 13, 2024 09:58 AM Consult Order PODIATRY/N HM OUTPT Cons Bioprocess Engineer's Choice [facility] Lab Results: +/- 30 days of [...] Range Comment Jun 01, 2024 12:25 PM [facility] MICROALBUMIN CREATININE RATIO PANEL Specimen Type: URINE No comment entered. Ordering Provider: LINDA PERSON Report Released Date/Time: Jun 01, 2024 11:53 AM Reporting Lab: [facility] [address] [address] Performing Lab: [facility] [address] [facility] [address] MICROALBUMIN/C REATININE RATIO 10.8 mg/g 0-29.9 MICROALBUMIN,Q UANTITATIVE 1.1 mg/dL RR UNAVAIL CREATININE URINE 101.63 mg/dL Jun 01, 2024 10:38 AM [facility] HEMOGLOBIN A1C PANEL Specimen Type: [...] May 30, 2024 10:29 AM Reporting Lab: [address] [address] Performing Lab: [address] [address] HEMOGLOBIN A1C 5.8 H 4.0-5.6 Jun 01, 2024 10:38 AM [facility] BASIC METABOLIC PANEL (non-fasting) Specimen Type: SERUM No comment entered. Ordering Provider: LINDA PERSON Report Released Date/Time: May 30, 2024 10:29 AM Reporting Lab: [address] [address] Performing Lab: [address] [address] UREA NITROGEN 13 mg/dL 7-25 GLUCOSE 115 mg/dL H 65-100 SODIUM 140 mmol/L 135-145 POTASSIUM 4.3 mmol/L 3.5-5.0 CHLORIDE 107 mmol/L 100-110 CO2 21 meq/L 20-30 CREATININE, Serum 0.84 mg/dL 0.50-1.40 eGFR(CKD-EPI 2020) >90 mL/min >60 Jun 01, 2024 10:38 AM [facility] LIPID PANEL, NON FASTING Specimen Type: SERUM No comment entered. Ordering Provider: LINDA PERSON Report Released Date/Time: Jun 01, 2024 10:12 AM Reporting Lab: [facility] [address] [facility] [address] Performing Lab: [facility] [address] [address] CHOLESTEROL 126 mg/dL TRIGLYCERIDE 114 mg/dL 0-150 [...] 126/87 16 95 10 66 214 35 [facility] Social History: Smoking Status (Most current) [...] Enrique sotelo Nov 27, 2023 11:00 AM [place]-TOBACCO QUIT 15 YRS OR MORE [facility] Tobacco Use History This section includes a history of the smoking, or tobacco-related health factors, that were collected on or before the date of the Encounter. The data comes from the [place] facility where the Encounter took place. Date/Time Smoking Status/Tobac co Use Comment Facility Nov 27, 2023 11:00 AM [place]-TO[place]ACCO QUIT 15 YRS OR MORE [place] [facility] Dec 02, 2022 08:00 AM VA-TOBACCO FORMER USER [place] [facility] Dec 02, 2022 08:00 AM VA-TOBACCO QUIT 15 YRS OR MORE [facility] Nov 05, 2021 10:30 AM VA-TOBACCO [facility] Nov 05, 2021 10:30 AM VA-TOBACCO QUIT 1 TO < 5 YRS [facility] Sep 14, 2020 02:00 PM VA-TOBACCO FORMER USER [facility] Sep 14, 2020 02:00 PM VA-TOBACCO QUIT 5 TO < 15 YRS [facility] Jan 22, 2018 03:40 PM QUIT TOBACCO USE > 7 YEARS AGO [facility] Jun 04, 2016 02:01 PM CURRENT SMOKER been smoking pass 20 yrs [facility] Jun 04, 2016 02:01 PM V1-PT DECLINES REF TO TOBACCO CESS PRGM [facility] Jun 04, 2016 02:01 PM V1-PT THINKING ABOUT QUIT TOBACCO USE [facility] Jul 18, 2014 03:31 PM V1-PT DECLINES REF TO TOBACCO CESS PRGM [facility] Jul 18, 2014 03:31 PM V1-PT DECLINES TOBACCO CESSATION MEDS [facility] Jul 18, 2014 03:31 PM V1-PT NOT INTERESTED IN QUIT TOBACCO USE [facility] Jan 09, 2014 10:43 AM CURRENT SMOKER pt smokes 1 pk of cigarettes per day. [facility] Jan 09, 2014 10:43 AM V1-PT THINKING ABOUT QUIT TOBACCO USE [facility] Aug 28, 2003 10:47 AM CURRENT SMOKER one pack q 6 days - he has cut down from 3 PPD. He is in the process of quitting [facility] Encounter Notes: All associated encounter notes This section contains the clinical notes associated to the Encounter. Date/Time Encounter Note(s) Provider Source Jun 28, 2024 12:00 AM NONVA NOTE: LOCAL TITLE: NON-VA HOSPITALIZATIONS/ER STANDARD TITLE: NONVA NOTE DATE OF NOTE: JUN 28, 2024 ENTRY DATE: JUL 13, 2024@13:09:30 AUTHOR: KORI HERNANDEZ COSIGNER: URGENCY: STATUS: COMPLETED VistA Imaging - Scanned Document SCANNED DOCUMENT SIGNATURE NOT REQUIRED Electronically Filed: 07/13/2024 by: KORI CODY [facility]
--- OUTSIDE RECORDS SUMMARY | 2024-11-01 08:05 | XMS_ITS | Encounter Summary ---
Author Name [place] Address [address] [place] [address] Care Team Providers Care Mail List Librarian Name Role Phone ELIZABET ROBINS Primary Care [...] [facility] CE ORGANIZ [facility] AC Apr 18, 2018 [id number] WILLIS,MAR JUDITH SPOUSE ANTHEM BCBS OF [place] (BLUECARD) [facility] CE ORGANIZ [facility]RISTEN [facility] Apr 18, 2018 [id number] WILLIS,MAR JUDITH SPOUSE BCBS [facility] CE ORGANIZ [facility] SHARE ACTIV E Apr 18, 2018 [id number] WILLIS,MAR JUDITH SPOUSE BCBS OF [facility] CE ORGANIZ [facility] Apr 18, 2018 [id number] [phone] WILLIS,MAR JUDITH PATIENT BCBS OF [facility] CE ORGANIZ [facility]ENDA [facility]CC[facility] Apr 18, 2018 [id number] WILLIS,MAR JUDITH SPOUSE BCBS OF [place] PREFERRED PROVIDER ORGANIZAT ION (PPO) BRENDA MCCABE [facility] AC Apr 18, 2018 [id number] WILLIS,MAR JUDITH SPOUSE BCBS OF [facility] CE ORGANIZ BRENDA MCCABE [facility] ACT Apr 18, 2018 [id number] WILLIS,MAR JUDITH SPOUSE BCBS OF [facility] CE ORGANJAVY MCCABE [facility] AC Apr 18, 2018 [id number] [phone] WILLIS,MAR JUDITH SPOUSE [place] PRESCRIPT ION RX22M B Oct 19, 2022 [id number] [id number] WILLIS,MAR JUDITH SPOUSE [place] PRESCRIPT ION BCBS OF [place] Oct 19, 2022 RX22MA [id number] WILLIS, SPOUSE CAREMARK PRESCRIPT ION RX22M A Oct 19, 2022 RX22MA [id number] WILLIS,LAVELLE AEL PATIENT CAREMARK PRESCRIPT ION RX22M B Oct 19, 2022 RX22MB [id number] WILLIS,LAVELLE AEL PATIENT CAREMARK PRESCRIPT ION BRENDA MCCABE [facility] AC Oct 19, 2022 RX22MB [id number] [phone] WILLIS,LAVELLE AEL SPOUSE CAREMARK PRESCRIPT ION RX Oct 19, 2022 RX22MB [id number] [phone] WILLIS,MAR JUDITH SPOUSE [place] ([id number]) PRESCRIPT ION BCBS OF [place] Oct 19, 2022 RX22MB [id number] [phone] WILLIS,MAR JUDITH SPOUSE [place] BCBS ([facility] CE ORGANIZ BRENDA MCCABE [facility] AC Apr 18, 2018 [id number] WILLIS,EDILBERTO SOTELOZA SPOUSE EXPRESS SCRIPTS PRESCRIPT ION BCBS [place] 2018 L4TA [id number] WILILS,EDILBERTO SOTELOZA SPOUSE EXPRESS SCRIPTS ([id number]) PRESCRIPT ION Apr 18, 2018 L4TA [id number] WILLIS,EDILBERTO SOTELOZA SPOUSE EXPRESS SCRIPTS ([id number]) PRESCRIPT ION L4TA* Apr 18, 2020 L4TA [id number] WILLIS,EDILBERTO PALAFOXA SPOUSE EXPRESS SCRIPTS ([id number]) PRESCRIPT ION L4TA* Apr 18, 2018 L4TA [id number] WILLIS,EDILBERTO PALAFOXA SPOUSE EXPRESS SCRIPTS ([id number]) PRESCRIPT ION Apr 18, 2018 L4TA [id number] WILLIS,EDILBERTO SOTELOZA SPOUSE EXPRESS SCRIPTS ([id number]) PRESCRIPT ION Apr 18, 2018 L4TA [id number] WILLIS,EDILBERTO WONG SPOUSE EXPRESS SCRIPTS ([id number]) PRESCRIPT ION L4TA Apr 18, 2018 L4TA [id number] WILLIS,EDILBERTO WONG SPOUSE EXPRESS SCRIPTS-MINOR BROGATION PRESCRIPT ION BCBS OF [place] Apr 18, 2020 L4TA [id number] WILLIS,EDILBERTO WONG SPOUSE [facility] CE ORGANIZAT ION W/OUT OF NETWORK BENEFITS [facility]EN [facility] ACT Apr 18, 2018 [id number] WILLISEDILBERTO SPOUSE HIGHM[place] BCBS [facility] (BLUECARD) [facility] CE ORGANIZAT ION RITRISTEN [facility] AC Apr 18, 2018 [id number] [phone] WILLISEDILBERTO SPOUSE MEDICARE (WNR) MEDICARE (M) PART A Mar 19, 1990 PART A [id number] WILLISLAVELLE AEL PATIENT MEDICARE (WNR) MEDICARE (M) PART A Mar 19, 1990 PART A [id number] WILLIS,LAVELLE AEL PATIENT MEDICARE (WNR) MEDICARE (M) PART A Mar 19, 1990 PART A [id number] [phone] WILLIS,LAVELLE AEL PATIENT MEDICARE (WNR) MEDICARE (M) PART A Mar 19, 1990 PART A [id number] WILLIS,LAVELLE AEL PATIENT MEDICARE (WNR) MEDICARE (M) PART A Mar 19, 1990 PART A [id number] [phone] [id number] WILLIS,LAVELLE AEL PATIENT MEDICARE (WNR) MEDICARE (M) PART A Mar 19, 1990 PART A [id number] WILLIS,LAVELLE AEL PATIENT MEDICARE (WNR) MEDICARE (M) PART A Mar 19, 1990 PART A [id number] WILLIS,LAVELLE AEL PATIENT MEDICARE (WNR) MEDICARE (M) PART A Mar 19, 1990 PART A [id number] [phone] [id number] WILLIS,LAVELLE AEL PATIENT MEDICARE (WNR) MEDICARE (M) PART A Mar 19, 1990 PART A [id number] WILLIS,LAVELLE AEL PATIENT MEDICARE (WNR) MEDICARE (M) PART A Mar 19, 1990 PART A [id number] WILLIS,LAVELLE AEL PATIENT MEDICARE (WNR) MEDICARE (M) PART A Mar 19, 1990 PART A [id number] WILLIS,LAVELLE AEL PATIENT Selected Encounter This section includes the information on [place] at [place] for the Encounter. Date/Time Encounter Type Encounter Description Reason Pro vider Source Jul 14, 2024 11:41 AM Outpatient Encounter ADMIN PAT ACTIVTIES (MASNONCT) [...] 20 appointments. The [facility] comes [facility]. Appointment Date/Time Appointment Type Appointme nt Facility Name Aug 12, 2024 09:30 AM AMBULATORY - MEDICINE [place] [facility] Aug 22, 2024 09:00 AM AMBULATORY MEDICINE [facility] [place] [facility] Sep 21, 2024 09:00 AM AMBULATORY MEDICINE [facility] [place] [facility] Sep 21, 2024 10:00 AM AMBULATORY MEDICINE [facility] [facility] Nov 28, 2024 09:30 AM AMBULATORY MEDICINE [facility] [place] [facility] Dec 02, 2024 08:30 AM AMBULATORY MEDICINE [facility] Active, Pending, and Scheduled Orders This section includes a listing of several types of active, pending, and scheduled orders, including clinic medications orders, diagnostic test orders, procedure orders and consult orders; where the start date of the order is 45 days before the date of the Encounter or 45 days after the date of theEncounter. The data comes from all [facility]. Test Date/Time Test Type Test Details Facility Name Jul 13, 2024 09:58 AM Consult Order PODIATRY/N HM OUTPT Cons Management Planner's Choice [facility] Social History: Smoking Status (Most current) [...] Facil it Nov 27, 2023 11:00 [facility] Y[facility] OR MORE [facility] Tobacco Use History This section includes a history of the smoking, or tobacco-related health factors, that were collected on or before the date of the Encounter. The data comes from the [place] facility where the Encounter took place. Date/Time Smoking Status/Tobac co Use Comment Facility Nov 27, 2023 11:00 AM [place]-TOBACCO QUIT 15 YRS OR MORE [facility] Dec 02, 2022 08:00 AM VA-TOBACCO FORMER USER [facility] Dec 02, 2022 08:00 AM VA-TOBACCO QUIT 15 YRS OR MORE IN [place] [facility] Nov 05, 2021 10:30 AM VA-TOBACCO FORMER USER [facility] Nov 05, 2021 10:30 AM VA-TOBACCO QUIT 1 TO < 5 YRS [facility] [place] [facility] Sep 14, 2020 02:00 PM VA-TOBACCO FORMER USER [place] [facility] Sep 14, 2020 02:00 PM VA-TOBACCO QUIT 5 TO < 15 YRS [facility] Jan 22, 2018 03:40 PM QUIT TOBACCO USE > 7 YEARS AGO [facility] Jun 04, 2016 02:01 PM CURRENT SMOKER been smoking pass 20 yrs [facility] Jun 04, 2016 02:01 PM V1-PT DECLINES REF TO TOBACCO CESS PRGM [facility] Jun 04, 2016 02:01 PM V1-PT THINKING ABOUT QUIT TOBACCO USE [place] [facility] Jul 18, 2014 03:31 PM V1-PT DECLINES REF TO TOBACCO CESS PRGM [facility] Jul 18, 2014 03:31 PM V1-PT DECLINES TOBACCO CESSATION MEDS [facility] Jul 18, 2014 03:31 PM V1-PT NOT INTERESTED IN QUIT TOBACCO USE [facility] [place] [facility] Jan 09, 2014 10:43 AM CURRENT SMOKER pt smokes 1 pk of cigarettes per day. [facility] [place] [facility] Jan 09, 2014 10:43 AM V1-PT THINKING ABOUT QUIT TOBACCO USE [facility] [facility] Aug 28, 2003 10:47 AM CURRENT SMOKER one pack q 6 days - he has cut down from 3 PPD. He is in the process of quitting [facility] Encounter Notes: All associated encounter notes This section contains the clinical notes associated to the Encounter. Date/Time Encounter Note(s) Provider Source Jul 14, 2024 11:41 AM ADMINISTRATIVE NOT E: LOCAL TITLE: CCC: SCHEDULING ADMINISTRATION STANDARD TITLE: ADMINISTRATIVE NOTE DATE OF NOTE: JUL 14, 2024@11:41:07 ENTRY DATE: JUL 14, 2024@11:41:07 AUTHOR: KEEGAN WERNER COSIGNER: URGENCY: STATUS: COMPLETED CCC: SCHEDULING ADMINISTRATION Has ADDENDA Patient Demographics Patient Name: CHAYA PEDRO Patient Primary Phone: [phone] Patient Primary Address: [address] [place] [id number] Patient : 1955 Patient Age: 68 Call Back Number: [phone] Caller/Recipient Relation to Patient: Caregiver Caller Name: VALENTINA Scheduling Patient Expects Callback: No Administrative Administrative Note Reason: Returned Call Administrative Note Comments: VALENTINA REQUESTING RETURN CALL RE: DISCUSS - PACKAGE RECEIVED FOR URINE COLLECTION KIT- NEEDS ASSISTANCE IMPORTANT: This note was created by [facility] staff. Please do not alert the staff member by adding them as a signer for future communications. Alerts are not monitored by this user. /gaetano/ KEEGAN JUDGE 1 CCC/ SOFIA AMSA Signed: 07/14/2024 11:41 Receipt Acknowledged By: 07/15/2024 15:20 /gaetano/ ELZBIETA FRY, RN, CNL PRIMARY CARE TEAM NURSE 07/15/2024 15:30 /gaetano/ Marcia Maurer RN Primary Care Staff Nurse 07/15/2024 ADDENDUM STATUS: COMPLETED Call to Ye[facility]. He says that he just completed a 24 hour for [facility] and [employer] picked it up an hour ago. Noted that his [facility] on 03/13/24. Lunch Truck Operator called [facility]. Yeimi was last seen on 02/23/24. The 24 hour is through a 3rd constitution party lab. Yeimi has a renal US scheduled for 08/22/24 and a follow-up with the Urologist on 08/26/24. A new Urology consult placed and held for provider signature. /gaetano/ DEBBIE GORMAN, MSN, RN, CNL PRIMARY CARE TEAM NURSE Signed: 07/15/2024 15:02 [facility]
--- OUTSIDE RECORDS SUMMARY | 2024-11-01 08:05 | XMS_ITS | Encounter Summary ---
Author Name [facility] [place] [facility] [place] Address [address] [place] [address] Care Team Providers Care Hospital Medical Assistant Name Role Phone ELIZABET ROBINS Primary [...] Name Patient's Relationship to Policy Paul [facility] CE ORGANIZ [facility] AC Apr 18, 2018 [id number] [phone] WILLIS,MAR JUDITH SPOUSE ANTHEM BCBS OF [place] ([place]ARD) [facility] CE ORGANIZ [facility] Apr 18, 2018 [id number] WILLIS,MAR JUDITH SPOUSE BCBS [facility] CE ORGANIZ [facility] ACTIV E Apr 18, 2018 [id number] WILLIS,MAR JUDITH SPOUSE BCBS OF [facility] CE ORGANIZ [facility] Apr 18, 2018 [id number] WILLIS,MAR JUDITH PATIENT BCBS OF [facility]LY [facility] CE ORGANIZ BRENDA MCCABE [facility] Apr 18, 2018 [id number] WILLIS,MAR JUDITH SPOUSE BCBS OF [place] PREFERRED PROVIDER ORGANIZAT ION (PPO) BRENDA MCCABE [facility] AC Apr 18, 2018 [id number] [phone] WILLIS,MAR JUDITH SPOUSE BCBS OF [facility] CE ORGANIZ BRENDA MCCABE [facility] ACT Apr 18, 2018 [id number] WILLIS,MAR JUDITH SPOUSE BCBS OF [facility] CE ORGANIZ BRENDA MCCABE [facility] AC Apr 18, 2018 [id number] WILLIS,MAR JUDITH SPOUSE [place] PRESCRIPT ION BCBS OF [place] Oct 19, 2022 [id number] WILLIS, SPOUSE CAREMARK PRESCRIPT ION RX22M A Oct 19, 2022 [id number] WILLIS,LAVELLE AEL PATIENT [place] PRESCRIPT ION RX22M B Oct 19, 2022 [id number] WILLIS,LAVELLE AEL PATIENT [place] PRESCRIPT ION BRENDA MCCABE [facility] AC Oct 19, 2022 [id number] [phone] WILLIS,LAVELLE AEL SPOUSE CAREMARK PRESCRIPT ION RX22M B Oct 19, 2022 [phone] WILLIS,MAR JUDITH SPOUSE [place] PRESCRIPT ION RX Oct 19, 2022 [id number] [phone] WILLIS,MAR JUDITH SPOUSE [place] ([id number]) PRESCRIPT ION [place] OF [place] Oct 19, 2022 [id number] WILLIS,MAR JUDITH SPOUSE [place] BCBS ([facility] CE ORGANIZ BRENDA MCCABE [facility] AC Apr 18, 2018 [phone] WILLIS,EDILBERTO SOTELOZA SPOUSE [employer] PRESCRIPT [place] 2018 L4TA [id number] WILLIS,EDILBERTO SOTELOZA SPOUSE [employer] ([id number]) PRESCRIPT ION Apr 18, 2018 L4TA [id number] WILLIS,EDILBERTO SOTELOZA SPOUSE [employer] ([id number]) PRESCRIPT ION L4TA* Apr 18, 2020 L4TA [id number] WILLIS,EDILBERTO PALAFOXA SPOUSE [employer] ([id number]) PRESCRIPT ION L4TA* Apr 18, 2018 L4TA [id number] WILLIS,EDILBERTO PALAFOXA SPOUSE [employer] ([id number]) PRESCRIPT ION L4TA Apr 18, 2018 L4TA [id number] WILLIS,EDILBERTO WONG SPOUSE [employer] ([id number]) PRESCRIPT ION Apr 18, 2018 L4TA [id number] WILLISEDILBERTO SPOUSE [employer] ([id number]) PRESCRIPT ION Apr 18, 2018 L4TA [id number] WILLIS,EDILBERTO WONG SPOUSE [employer]-MINOR BROGATION PRESCRIPT ION [place] Apr 18, 2020 L4TA [id number] WILLIS,EDILBERTO WONG SPOUSE [facility] ([facility]) [facility] CE ORGANIZAT ION W/OUT OF NETWORK BENEFITS HITRISTEN MCCABE [facility] ACT Apr 18, 2018 [id number] WILLISEDILBERTO SPOUSE [place] BCBS [facility] (BLUECARD) [facility] CE ORGANIZAT ION [facility] AC Apr 18, 2018 [id number] WILLISEDILBERTO SPOUSE MEDICARE (WNR) MEDICARE (M) PART A Mar 19, 1990 PART A [id number] WILLIS,LAVELLE AEL PATIENT MEDICARE (WNR) MEDICARE (M) PART A Mar 19, 1990 PART A [id number] [phone] WILLIS,LAVELLE AEL PATIENT MEDICARE (WNR) MEDICARE (M) PART A Mar 19, 1990 PART A [id number] WILLIS,LAVELLE AEL PATIENT MEDICARE (WNR) MEDICARE (M) PART A Mar 19, 1990 PART A [id number] WILLIS,LAVELLE AEL PATIENT MEDICARE (WNR) MEDICARE () PART A Mar 19, 1990 PART A [id number] [phone] WILLIS,LAVELLE AEL PATIENT MEDICARE (WNR) MEDICARE () PART A Mar 19, 1990 PART A [id number] WILLIS,LAVELLE AEL PATIENT MEDICARE (WNR) MEDICARE () PART A Mar 19, 1990 PART A [id number] [phone] WILLIS,LAVELLE AEL PATIENT MEDICARE (WNR) MEDICARE () PART A Mar 19, 1990 PART A [id number] [phone] WILLIS,LAVELLE AEL PATIENT MEDICARE (WNR) MEDICARE (M) PART A Mar 19, 1990 PART A [id number] [phone] WILLISLAVELLE AEL PATIENT MEDICARE (WNR) MEDICARE (M) PART A Mar 19, 1990 PART A [id number] WILLIS,LAVELLE AEL PATIENT MEDICARE (WNR) MEDICARE () PART A Mar 19, 1990 PART A [id number] WILLIS,LAVELLE AEL PATIENT Selected Encounter This section includes the information on record at [place] for the Encounter. Date/Time Encounter Type Encounter Description Reason Provider Source Sep 21, 2024 10:00 AM COMPRE OPH EXAM EST PT 1/> OPTOMETRY ICD-10-CM G45.3 Amaurosis fugax MERHAR,STACIA B IHE Encounter Template Text not used by [facility] Assessments - Encounter Diagnoses This section includes the primary and secondary diagnoses documented for the Encounter. Date/Time Primary/Secondary Diagnosis Diagnosis Name Provider Source Sep 21, 2024 03:02 PM PRIMARY Amaurosis fugax MERHAR,STACIA B [facility] [place] [facility] Sep 21, 2024 03:02 PM SECONDARY Age-related nuclear cataract, bilateral STACIA CAMPO [facility] [place] [facility] Sep 21, 2024 03:02 PM SECONDARY Dry eye syndrome of bilateral lacrimal glands STACIA CAMPO [facility] [place] [facility] Sep 21, 2024 03:02 PM SECONDARY Hypermetropia, bilateral STACIA CAMPO [facility] [place] [facility] Sep 21, 2024 03:02 PM SECONDARY Type 2 diabetes mellitus without complications BANNERSUHAIL PERKINSAH Elliot [facility] Plan of Treatment: Future Appointments (+ 6 months) and Future Tests (+/- 45 days) The Plan of Treatment section includes future care activities for the patient from all [place] treatmentfacilities. This section includes future appointments and future orders which are active, pending or scheduled. Future Appointments This section includes appointments that were scheduled to occur 6 months from the date of the Encounter, up to a maximum of 20 appointments. The data comes from all [place] treatment facilities. Appointment Date/Time Appointment Type Appointme nt Facility Name Nov 28, 2024 09:30 AM AMBULATORY - MEDICINE [facility] Dec 02, 2024 08:30 AM AMBULATORY - MEDICINE [place] [facility] [place] [facility] Mar 20, 2025 09:00 AM AMBULATORY - MEDICINE [facility] Lab Results: +/- 30 days of the encounter This section includes the Chemistry and Hematology Lab Results on record with [place] for the patient. Radiology Reports and Pathology Reports are provided separately, in subsequent sections. Lab Results This section contains the Chemistry/Hematology Results that were resulted 30 days before or 30 daysafter the date of the Encounter. Date/Time Source Result Type Result - Unit Interpretation Reference Range Comment Sep 21, 2024 10:35 AM [facility] MICROALBUMIN CREATININE RATIO PANEL Specimen Type: URINE No comment entered. Ordering Provider: LINDA PERSON Report Released Date/Time: Sep 21, 2024 09:08 AM Reporting Lab: [facility] [address] Performing Lab: [facility] [address] [facility] [address] MICROALBUMIN/CR EATININE RATIO 7.3 mg/g 0-29.9 MICROALBUMIN,QU ANTITATIVE 0.6 mg/dL RR UNAVAIL CREATININE URINE 81.65 mg/dL Sep 21, 2024 09:30 AM [facility] PHENOBARBITAL (q) Specimen Type: SERUM Comment: Test Performed by [facility], [facility], [address] [place] [address] Danis Lewis M.D., Ph.D., Director of Laboratories , [facility] [id number] TEST PERFORMED AT: , Ordering Provider: LINDA PERSON Report Released Date/Time: Sep 21, 2024 09:08 AM Reporting Lab: [address] [address] Performing Lab: [facility] [address] [address] PHENOBARBITAL (q) 5.2 mg/L L 15.0-40.0 Sep 21, 2024 09:30 AM [facility] HEMOGLOBIN A1C PANEL Specimen Type: [...] Sep 21, 2024 09:08 AM Reporting Lab: [address] [address] Performing Lab: [address] [address] HEMOGLOBIN A1C 6.1 H 4.0-5.6 Sep 21, 2024 09:30 AM [facility] BASIC METABOLIC PANEL (non-fasting) Specimen Type: SERUM No comment entered. Ordering Provider: LINDA PERSON Report Released Date/Time: Sep 21, 2024 09:08 AM Reporting Lab: [address] [address] Performing Lab: [address] [address] UREA NITROGEN 10 mg/dL 7-25 GLUCOSE 107 mg/dL H 65-100 SODIUM 141 mmol/L 135-145 POTASSIUM 4.5 mmol/L 3.5-5.0 CHLORIDE 107 mmol/L 100-110 CO2 20 meq/L 20-30 CREATININE, Serum 0.85 mg/dL 0.50-1.40 eGFR(CKD-EPI 2020) >90 mL/min >60 Sep 21, 2024 09:30 AM [facility] LIVER FUNCTION Specimen Type: SERUM No comment entered. Ordering Provider: LINDA PERSON Report Released Date/Time: Sep 21, 2024 09:08 AM Reporting Lab: [address] [address] Performing Lab: [address] [address] PROTEIN,TOTAL 7.8 g/dL 6.0-8.3 ALBUMIN 4.4 g/dL 3.5-5.0 ALKALINE PHOSPHATASE 89 U/L 40-150 AST 42 U/L H 5-34 ALT 52 U/L BILIRUBIN, TOTAL 0.3 mg/dL 0.2-1.2 Social History: Smoking Status (Most current) and Tobacco Use (All prior to encounter date) This section includes the most current, and the historical, smoking and tobacco- related health factors from the [place] facility where the Encounter took place. Current Smoking Status This section includes the most current smoking, or tobacco-related health factor, from the [place] facility where the Encounter took place. Date/Time Current Smoking Status Comment Enrique shannon Nov 27, 2023 11:00 AM VA-TOBACCO FORMER USER [facility] Tobacco Use History This section includes a history of the smoking, or tobacco-related health factors, that were collected on or before the date of the Encounter. The data comes from the [place] facility where the Encounter took place. Date/Time Smoking Status/Tobac co Use Comment Facility Nov 27, 2023 11:00 AM VA-TOBACCO QUIT 15 YRS OR MORE [facility] Dec 02, 2022 08:00 AM VA-TOBACCO FORMER USER [facility] Dec 02, 2022 08:00 AM VA-TOBACCO QUIT 15 YRS OR MORE [facility] Nov 05, 2021 10:30 AM VA-TOBACCO FORMER USER [facility] Nov 05, 2021 10:30 AM NM-TOBACCO QUIT 1 TO < 5 YRS [facility] Sep 14, 2020 02:00 PM VA-TOBACCO FORMER USER [facility] Sep 14, 2020 02:00 PM VA-TOBACCO QUIT 5 TO < 15 YRS [facility] Jan 22, 2018 03:40 PM QUIT TOBACCO USE > 7 YEARS AGO [facility] Jun 04, 2016 02:01 PM CURRENT SMOKER been smoking pass 20 yrs [facility] Jun 04, 2016 02:01 PM V1-PT DECLINES REF TO TOBACCO CESS PRGM [facility] Jun 04, 2016 02:01 PM V1-PT THINKING ABOUT QUIT TOBACCO USE [facility] Jul 18, 2014 03:31 PM V1-PT DECLINES REF TO TOBACCO CESS PRGM [facility] Jul 18, 2014 03:31 PM V1-PT DECLINES TOBACCO CESSATION MEDS [facility] Jul 18, 2014 03:31 PM V1-PT NOT INTERESTED IN QUIT TOBACCO USE [facility] Jan 09, 2014 10:43 AM CURRENT SMOKER pt smokes 1 pk of cigarettes per day. [facility] Jan 09, 2014 10:43 AM V1-PT THINKING ABOUT QUIT TOBACCO USE [facility] Aug 28, 2003 10:47 AM CURRENT SMOKER one pack q 6 days - he has cut down from 3 PPD. He is in the process of quitting [facility] [place] [facility] Encounter Notes: All associated encounter notes This section contains the clinical notes associated to the Encounter. Date/Time Encounter Note(s) Provider Source Sep 21, 2024 09:59 AM OPTOMETRY NOTE: LOCAL TITLE: OPTOMETRY NOTE STANDARD TITLE: OPTOMETRY NOTE DATE OF NOTE: SEP 21, 2024@09:59 ENTRY DATE: SEP 21, 2024@09:59:31 AUTHOR: STACIA CAMOP EXP COSIGNER: URGENCY: STATUS: COMPLETED 68 DECLINED TO ANSWER MALE OR Last eye exam: 01/13/24 Reason for Visit/CC: patient here for a comprehensive eye exam. Never received more covers for devora masks, also mask is worn out and needs replacing. reports he had 3 episodes of vision loss since last time - per records, question of TIA vs. seizure but MRI unremarkable. All episodes have been brief neurologist took him off doxy since he was put on phenobarbitol for seizures when the light is bright he gets a lot of flashes. OHx: type II DM without retinopathy OU low risk open angle glaucoma suspect OU rosacea with meibomian gland dysfunction OU, frequent hordeola corneal map/dot dystrophy OS>OD chronic allergic conjunctivitis OU NS/cortical cataracts OU refractive error OU (-) Pain: (-) MENDOZA: (-) Diplopia: (-) Flashes: (-) Floaters: (-) Amaurosis Fugax/Tia's: (-) Eye Injury: (-) Eye Surgery: (-) TBI (+) FOHx: Glaucoma - mother and father and multiple siblings MHx: Code Description R69. Seizure disorder ([facility] [id number]) E11.42 Peripheral neuropathy due to type 2 diabetes mellitus ([facility] [id number]) J30.2 Seasonal allergic rhinitis ([facility] [id number]) K75.81 Nonalcoholic steatohepatitis ([facility] 618244898) F19.21 History of substance abuse ([facility] [id number]) E66.9 Obesity ([facility] 032997270) E11.9 Diabetes mellitus type 2 ([facility] 81262228) R94.5 Elevated liver enzymes level ([facility] 830550717) G47.30 Sleep apnea ([facility] [id number]) I10. 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 Rosacea ([facility] 799120401) I82.622 Deep venous thrombosis of upper extremity ([facility] 031226627) N20.0 Nephrolithiasis ([facility] 04902637) E78.5 Hyperlipidemia ([facility] 40508058) N40.1 Lower urinary tract symptoms due to benign prostatic hypertrophy ([facility] [id number]) V16.42 Family history of prostate cancer ([facility] 865337676) F25.9 Schizoaffective disorder ([facility] 39548695) F10.21 Alcohol dependence ([facility] 22242171) 523.8 Periodontal Disease NEC (ICD-9-CM 523.8) 530.81 GERD (ICD-9-CM 530.81) R20.2 Facial paraesthesia ([facility] 72300481) 367.9 REFRACTION DISORDER NOS (ICD-9-CM 367.9) Other: SYSTEMIC MEDICATIONS/OCULAR MEDICATIONS: Active and Recently Outpatient Medications (excluding Supplies): [...] ACTIVE MOUTH AT BEDTIME FOR CHOLESTEROL 6) FAMOTIDINE 20MG TAB TAKE ONE TABLET BY MOUTH DAILY ACTIVE (S) FOR STOMACH ACID 7) KETOTIFEN 0.025% OPH SOLN INSTILL 1 DROP INTO EACH ACTIVE EYE TWICE DAILY NEEDED FOR ALLERGIC CONJUNCTIVITIS (IF YOU WEAR CONTACT LENSES, WAIT 10 MINUTES BEFORE INSERTING LENSES) 8) LACTOBACILLUS ACIDOPHILUS CAP TAKE 1 CAPSULE BY MOUTH ACTIVE TWICE DAILY 9) LEVOCETIRIZINE DIHYDROCHLORIDE 5MG TAB TAKE ONE ACTIVE TABLET BY MOUTH EVERY EVENING FOR ALLERGIES 10) METFORMIN HCL 1000MG TAB TAKE ONE TABLET BY MOUTH ACTIVE TWICE DAILY FOR DIABETES 11) METRONIDAZOLE 0.75% TOP GEL APPLY MODERATE AMOUNT ACTIVE TOPICALLY TWICE DAILY FOR ACNE ROSACEA 12) ONDANSETRON 4MG ORAL DISINTEGRATING TAB PLACE ONE ACTIVE TABLET ON THE TONGUE EVERY 8 HOURS NEEDED FOR NAUSEA AND VOMITING (ALLOW TABLET TO DISSOLVE ON TONGUE, AND SWALLOW WITH SALIVA) 13) PEG 400 0.4%/PROP GLYCOL 0.3% OPH SOLN INSTILL 1 DROP ACTIVE INTO EACH EYE FOUR TIMES DAILY NEEDED DRY EYE 14) PHENOBARBITAL 32.4MG TAB TAKE ONE TABLET BY MOUTH ACTIVE TWICE DAILY 15) SILDENAFIL CITRATE 25MG TAB TAKE ONE TABLET BY MOUTH ACTIVE ONCE DAILY FOR ERECTILE DYSFUNCTION TAKE 1 HOUR PRIOR TO SEXUAL ACTIVITY Active Non-VA Medications Status 1) Non-VA MULTIVITAMIN/MINERALS CAP/TAB ONE CAP/TAB BY ACTIVE MOUTH ONCE DAILY 2) Non-VA OTHER CAP/TAB THC BY MOUTH TWICE DAILY ACTIVE 17 Total Medications ALLERGIES: AKWA TEARS, DIFLUCAN, PHENYTOIN, FLUOROMETHOLONE, REFRESH TEARS, OXYCODONE LEVETIRACETAM LAST BP: 122/86 (07/13/2024 09:47) PERTINENT LABS: HEMOGLOBIN A1C; BLOOD Suze. Date: 06/01/24 10:38 02/16/24 09:27 Test Name Result Units Range HEMOGLOBIN A1C 5.8 H 6.2 H % 4.0 - 5.6 Current Rx with last BCVA: OD +1.25 -1.25 x 105 20/20-2 OS +1.00 -0.75 x 040 20/20-1 Add: +2.50 DVA ( )sc ( x )cc OD 20/25+2 OS 20/25+2 Pupils: PERRL (-)APD EOM: Full all meridia OU, (-) pain/diplopia Confrontation Visual Harrison: Full all meridia OU Subjective: OD +1.25 -1.50 x 105 20/20-1 OS +0.75 -0.50 x 050 20/20-1 Add: +2.50 SLE: Lids/Lashes: moderate MGD OU Conjunctiva: white and quiet OU Corneas: mild EBMD OU Iris: flat and clear OU (-)NVI OU Anterior Chamber: deep and quiet OU Angles: open OU Lens: 1+ NS OU TAP @ 10:17am [place] OD 19 mm Hg OS 17 mm Hg Dilating Drops: 1 gtt 1% Tropicamide OU, 2.5% phenylephrine OU (Pt. ed. on side effects) Vitreous: Syneresis OU C/D (Size and Rim Description) OD 0.40 pink & healthy OS 0.40 pink & healthy (-)NVD OU Macula OD flat and clear OS flat and clear (-)CSME OU A/V: attentuated OU Posterior Pole: clear OU Periphery: Flat and intact (-)NVE, holes, tears, detachments 360 OU Assessment/Plan: 1. Amaurosis fugax - reports 3 episodes since 12/2023. Brain MRI most recently 06/2024 unremarkable, also MRA/MRV per outside records. Previous episodes since at least 09/2022, all brief in duration. Concern for TIA, per community neurologist may be related to seizures as well. No signs of retinal emboli or ischemia. Continue with neurologist as scheduled, call if symptoms become more frequent or last longer. 2. dry eye syndrome OU with chronic ocular rosacea and h/o recurrent hordeola. Significant improvement on doxycycline, now discontinued. Continue Systane artificial tears BID-QID OU and warm compresses with devora mask. New devora mask ordered and gave more covers. Also will order eyelid wipes to used once daily. 3. Type II diabetes without retinopathy or macular edema OU. Last A1c . Pt ed on findings and importance of good blood glucose control. Monitor annually 4. Nuclear sclerosis cataracts OU, not visually significant. Monitor 5. hyperopia OU, regular astigmatism OU, presbyopia OU - order new bifocals clear with transitions, second pair with Nataliia #2 per pt request RTC 1 year or earlier PRN Patient Education: Diabetes: Patient was educated regarding diabetes and related ocular complications including retinopathy and cataract formation as well as other related systemic complications. The importance of good blood sugar control, blood sugar testing as recommended by their PCP and the importance of timely follow up were all emphasized. patient offered and declined printed medication list Medication Reconciliation: Outpatient: Has the patient been taking medications as documented in the EMLR? YES: The patient has been taking medications as documented in the EMLR. Essential Medication List for Review used to complete this medication reconciliation. INCLUDED IN THIS LIST: Alphabetical list of active outpatient prescriptions dispensed from this [place] (local) and dispensed from another [place] or [facility] facility (remote) as well as inpatient [...] list may not be complete. Please check Ecolo[employer]. Allergies/ADRs (Tool #5) FACILITY ALLERGY/ADR -------- LAUREEN CERDA [facility] NO KNOWN ALLERGIES [facility] NO KNOWN ALLERGIES [facility] [...] days. Non-VA Meds Last Documented On: Jul 13, 2024 NOTE The display of VA prescriptions dispensed from another VA or DoD facility (remote) is limited to active outpatient prescription entries matched to National Drug File at the originating site and may not include some items such as investigational drugs, compounds, etc. NOT INCLUDED IN THIS LIST: Medications self-entered by the patient into personal health records (i.e. Exact[employer]at) are NOT included in this list. Non-VA [...] EVERY 4 HOURS NEEDED FOR BRONCHOSPASM Rx# [id number] Last Released: 04/16/24 Qty/Days Supply: Rx Expiration Date: 04/14/25 Refills Remainin Indication: FOR BRONCHOSPASM OUTPT ALBUTEROL 90MCG (CFC-F) 200D ORAL INHL (Status = Active) INHALE 2 PUFFS BY MOUTH EVERY 4 HOURS NEEDED FOR SHORTNESS OF BREATH Rx# [id number] Last Released: 04/16/24 Qty/Days Supply: 11/17 Rx Expiration Date: 04/14/25 Refills Remainin OUTPT AMLODIPINE BESYLATE 5MG TAB (Status = Discontinued) TAKE ONE TABLET BY MOUTH ONCE DAILY FOR BLOOD PRESSURE/HEART, DO NOT TAKE WITH GRAPEFRUIT JUICE Rx# [id number] Last Released: 03/30/24 Qty/Days Supply: Rx Expiration Date: 06/25/24 Refills Remainin OUTPT AMLODIPINE BESYLATE 5MG TAB (Status = Active) TAKE ONE TABLET BY MOUTH ONCE DAILY FOR BLOOD PRESSURE/HEART, DO NOT TAKE WITH GRAPEFRUIT JUICE Rx# [id number] Last Released: 06/28/24 Qty/Days Supply: Rx Expiration Date: 06/25/25 Refills Remainin OUTPT ATORVASTATIN CALCIUM 80MG TAB (Status = Active) TAKE ONE-HALF TABLET BY MOUTH AT BEDTIME FOR CHOLESTEROL Rx# [id number] Last Released: 07/11/24 Qty/Days Supply: Rx Expiration Date: 04/09/25 Refills Remainin Indication: FOR HIGH CHOLESTEROL OUTPT DICLOFENAC NA 75MG EC TAB (Status = ) TAKE ONE TABLET BY MOUTH TWICE DAILY NEEDED FOR PAIN/INFLAMMATION Rx# [id number] Last Released: 07/05/24 Qty/Days Supply: 01/05 Rx Expiration Date: 07/28/24 Refills Remainin Indication: FOR PAIN AND INFLAMMATION OUTPT DM 10/GUAIFENESN 100MG/5ML (AF & SF) LIQ (Status = Discontinued) TAKE 5 MLS (ONE TEASPOONFUL) BY MOUTH EVERY 6 HOURS NEEDED FOR COUGH Rx# [id number] Last Released: 03/28/24 Qty/Days Supply: 10 Rx Expiration Date: 03/29/25 Refills Remainin Indication: FOR COUGH OUTPT DOXYCYCLINE HYCLATE 50MG CAP (Status = Discontinued) TAKE ONE CAPSULE BY MOUTH ONCE DAILY Rx# [id number] Last Released: 04/12/24 Qty/Days Supply: Rx Expiration Date: 04/12/25 Refills Remainin Indication: FOR INFECTION CAUSED BY BACTERIA OUTPT FAMOTIDINE 20MG TAB (Status = Active/Suspended) TAKE ONE TABLET BY MOUTH DAILY FOR STOMACH ACID Rx# [id number] Last Released: 08/04/24 Qty/Days Supply: Rx Expiration Date: 04/29/25 Refills Remainin OUTPT KETOTIFEN 0.025% OPH SOLN (Status = Active) INSTILL 1 DROP INTO EACH EYE TWICE DAILY NEEDED FOR ALLERGIC CONJUNCTIVITIS (IF YOU WEAR CONTACT LENSES, WAIT 10 MINUTES BEFORE INSERTING LENSES) Rx# [id number] Last Released: 06/16/24 Qty/Days Supply: Rx Expiration Date: 12/10/24 Refills Remainin Indication: FOR ALLERGIC CONJUNCTIVITIS OUTPT LACTOBACILLUS ACIDOPHILUS CAP (Status = Active) TAKE 1 CAPSULE BY MOUTH TWICE DAILY Rx# [id number] Last Released: 09/05/24 Qty/Days Supply: 200 Rx Expiration Date: 10/15/24 Refills Remainin Indication: FOR PROBIOTIC SUPPLEMENTATION OUTPT LEVOCETIRIZINE DIHYDROCHLORIDE 5MG TAB (Status = Active) TAKE ONE TABLET BY MOUTH EVERY EVENING FOR ALLERGIES Rx# [id number] Last Released: 08/19/24 Qty/Days Supply: Rx Expiration Date: 03/24/25 Refills Remainin Indication: FOR ALLERGIES OUTPT LIDOCAINE 5% PATCH (Status = ) APPLY 1 PATCH TOPICALLY EVERY 12 HOURS NEEDED (LEAVE PATCH ON FOR 12 HOURS, THEN REMOVE PATCH) Rx# [id number] Last Released: 01/22/24 Qty/Days Supply: Rx Expiration Date: 08/14/24 Refills Remainin Indication: FOR NERVE PAIN OUTPT METFORMIN HCL 1000MG TAB (Status = Active) TAKE ONE TABLET BY MOUTH TWICE DAILY FOR DIABETES Rx# [id number] Last Released: 08/12/24 Qty/Days Supply: 180 Rx Expiration Date: 02/16/25 Refills Remainin OUTPT METRONIDAZOLE 0.75% TOP GEL (Status = Active) APPLY MODERATE AMOUNT TOPICALLY TWICE DAILY FOR ACNE ROSACEA Rx# [id number] Last Released: 05/06/24 Qty/Days Supply: 90 Rx Expiration Date: 05/03/25 Refills Remainin Indication: FOR ACNE ROSACEA Non-VA MULTIVITAMIN/MINERALS CAP/TAB TAKE ONE CAP/TAB BY MOUTH ONCE DAILY Patient wants to buy from Non-VA pharmacy. OUTPT ONDANSETRON 4MG ORAL DISINTEGRATING TAB (Status = Active) PLACE ONE TABLET ON THE TONGUE EVERY 8 HOURS NEEDED FOR NAUSEA AND VOMITING (ALLOW TABLET TO DISSOLVE ON TONGUE, AND SWALLOW WITH SALIVA) Rx# [id number] Last Released: 07/13/24 Qty/Days Supply: Rx Expiration Date: 07/14/25 Refills Remainin Indication: FOR NAUSEA AND VOMITING Non-VA OTHER CAP/TAB TAKE THC BY MOUTH TWICE DAILY Patient wants to buy from Non-VA pharmacy. Indication: epilepsy OUTPT PEG 400 0.4%/PROP GLYCOL 0.3% OPH SOLN (Status = Active) INSTILL 1 DROP INTO EACH EYE FOUR TIMES DAILY NEEDED DRY EYE Rx# [id number] Last Released: 12/14/23 Qty/Days Supply: Rx Expiration Date: 12/10/24 Refills Remainin Indication: DRY EYE OUTPT PHENOBARBITAL 32.4MG TAB (Status = Active) TAKE ONE TABLET BY MOUTH TWICE DAILY Rx# [id number] Last Released: 08/19/24 Qty/Days Supply: Rx Expiration Date: 02/15/25 Refills Remainin OUTPT SILDENAFIL CITRATE 25MG TAB (Status = Active) TAKE ONE TABLET BY MOUTH ONCE DAILY FOR ERECTILE DYSFUNCTION TAKE 1 HOUR PRIOR TO SEXUAL ACTIVITY Rx# [id number] Last Released: 08/23/24 Qty/Days Supply: Rx Expiration Date: 06/02/25 Refills Remainin Indication: FOR ERECTILE DYSFUNCTION SUPPLIES OUTPT ACCU-CHEK GUIDE (GLUCOSE) TEST STRIP (Status = Active) USE 1 STRIP TO TEST BLOOD SUGARS TWO TIMES A WEEK Rx# [id number] Last Released: 02/20/24 Qty/Days Supply: 50/180 Rx Expiration Date: 02/17/25 Refills Remainin OUTPT ALCOHOL PREP PAD (Status = Active) USE 1 PAD TOPICALLY TWICE A WEEK NEEDED TO CLEAN SKIN FOR INJECTION ETC Rx# [id number] Last Released: 02/19/24 Qty/Days Supply: 200/90 Rx Expiration Date: 02/17/25 Refills Remainin /gaetano/ STACIA CAMPO OD Senior Product Development Engineer Signed: 09/21/2024 15:03 STACIA CAMPO [facility]
--- OUTSIDE RECORDS SUMMARY | 2024-11-01 08:06 | XMS_ITS | Encounter Summary ---
Author Name [facility] [place] [facility] [place] [facility] Address [address] [place] [address] Care Team Providers Care Chinchilla Machine Operator Name Role Phone ELIZABET ROBINS Primary [...] Paul [facility] CE ORGANIZ [facility] AC Apr 18, 2018 [id number] WILLIS,MAR JUDITH SPOUSE ANTHEM [place] OF [place] ([place]) [facility] CE ORGANIZ [facility] Apr 18, 2018 [id number] WILLIS,MAR JUDITH SPOUSE BCBS [facility] CE ORGANIZ [facility] SHARE ACTIV E Apr 18, 2018 [id number] WILLIS,MAR JUDITH SPOUSE BCBS OF [facility] CE ORGANIZ [facility] Apr 18, 2018 [id number] WILLIS,MAR JUDITH PATIENT BCBS OF [facility] CE ORGANIZ BRENDA [facility]E [facility] Apr 18, 2018 [id number] WILLIS,MAR JUDITH SPOUSE BCBS OF [place] PREFERRED PROVIDER ORGANIZAT ION (PPO) BRENDA MCCABE [facility] AC Apr 18, 2018 [id number] WILLIS,MAR JUDITH SPOUSE BCBS OF [facility] CE ORGANIZ BRENDA MCCABE [facility] ACT Apr 18, 2018 [id number] WILLIS,MAR JUDITH SPOUSE BCBS OF [facility] CE ORGANIZ BRENDA MCCABE [facility] AC Apr 18, 2018 [id number] [phone] WILLIS,MAR JUDITH SPOUSE [place] PRESCRIPT ION RX Oct 19, 2022 [id number] WILLIS,MAR JUDITH SPOUSE [place] PRESCRIPT ION RX22M A Oct 19, 2022 RX22MA [id number] WILLIS,LAVELLE AEL PATIENT CAREMARK PRESCRIPT ION RX22M B Oct 19, 2022 RX22MB [id number] WILLIS,LAVELLE AEL PATIENT CAREMARK PRESCRIPT ION BRENDA MCCABE [facility] AC Oct 19, 2022 RX22MB [id number] WILLIS,LAVELLE AEL SPOUSE CAREMARK PRESCRIPT ION RX22M B Oct 19, 2022 RX22MB [id number] WILLIS,MAR JUDITH SPOUSE [place] PRESCRIPT ION BCBS OF [place] Oct 19, 2022 [id number] WILLIS, SPOUSE [place]ARK ([id number]) PRESCRIPT ION [place] OF [place] Oct 19, 2022 [id number] WILLIS,MAR JUDITH SPOUSE [place] BCBS ([facility] CE ORGANIZ BRENDA MCCABE [facility] AC Apr 18, 2018 [id number] WILLIS,EDILBERTO SOTELOZA SPOUSE [employer] PRESCRIPT ION [place] 2018 L4TA [id number] WILLIS,EDILBERTO SOTELOZA SPOUSE [employer] ([id number]) PRESCRIPT ION Apr 18, 2018 L4TA [id number] WILLIS,EDILBERTO SOTELOZA SPOUSE [employer] ([id number]) PRESCRIPT ION L4TA* Apr 18, 2020 L4TA [id number] WILLISEDILBERTOA SPOUSE EXPRESS S[employer]IPTS ([id number]) PRESCRIPT ION Apr 18, 2018 L4TA [id number] WILLISEDILBERTOZA SPOUSE EXPRESS SCRIPTS ([id number]) PRESCRIPT ION Apr 18, 2018 L4TA [id number] WILLISEDILBERTO SPOUSE EXPRESS SCRIPTS ([id number]) PRESCRIPT ION L4TA* Apr 18, 2018 L4TA [id number] WILLISEDILBERTOA SPOUSE EXPRESS SCRIPTS ([id number]) PRESCRIPT ION L4TA Apr 18, 2018 L4TA [id number] WILLISEDILBERTO SPOUSE EXPRESS SCRIPTS-MINOR BROGATION PRESCRIPT ION BCBS OF [place] Apr 18, 2020 L4TA [id number] WILLISEDILBERTO SPOUSE [facility]ALTH [facility] CE ORGANIZAT ION W/OUT OF NETWORK BENEFITS [facility] ACT Apr 18, 2018 [id number] WILLISEDILBERTO SPOUSE [facility]ALTH [facility] CE ORGANIZAT ION [facility] AC Apr 18, 2018 [id number] [phone] WILLISEDILBERTO SPOUSE MEDICARE (WNR) MEDICARE (M) PART A Mar 19, 1990 PART A [id number] WILLIS,LAVELLE AEL PATIENT MEDICARE (WNR) MEDICARE (M) PART A Mar 19, 1990 PART A [id number] [phone] WILLIS,LAVELLE AEL PATIENT MEDICARE (WNR) MEDICARE (M) PART A Mar 19, 1990 PART A [id number] WILLIS,LAVELLE AEL PATIENT MEDICARE (WNR) MEDICARE (M) PART A Mar 19, 1990 PART A [id number] [phone] WILLIS,LAVELLE AEL PATIENT MEDICARE (WNR) MEDICARE (M) PART A Mar 19, 1990 PART A [id number] [phone] WILLIS,LAVELLE AEL PATIENT MEDICARE (WNR) MEDICARE (M) PART A Mar 19, 1990 PART A [id number] [id number] WILLIS,LAVELLE AEL PATIENT MEDICARE (WNR) MEDICARE (M) PART A Mar 19, 1990 PART A [id number] WILLIS,LAVELLE AEL PATIENT MEDICARE (WNR) MEDICARE (M) PART A Mar 19, 1990 PART A [id number] WILLIS,LAVELLE AEL PATIENT MEDICARE (WNR) MEDICARE (M) PART A Mar 19, 1990 PART A [id number] [id number] WILLISLAVELLE AEL PATIENT MEDICARE (WNR) MEDICARE (M) PART A Mar 19, 1990 PART A [id number] WILLIS,LAVELLE AEL PATIENT MEDICARE (WNR) MEDICARE (M) PART A Mar 19, 1990 PART A [id number] [phone] WILLIS,LAVELLE AEL PATIENT Selected Encounter This section includes the information on [place] at [place] for the Encounter. Date/Time Encounter Type Encounter Description Reason Pro vider Source Sep 26, 2024 09:50 AM Outpatient Encounter PRIMARY CARE/MEDICINE I[facility] Encounter [...] 28, 2024 09:30 AM AMBULATORY - [facility] Dec 02, 2024 08:30 AM AMBULATORY - MEDICINE [facility] NTRL TRN [facility] Mar 20, 2025 09:00 AM AMBULATORY - MEDICINE [facility] Lab Results: +/- 30 days of [...] Range Comment Sep 21, 2024 10:35 AM [facility] MICROALBUMIN CREATININE RATIO PANEL Specimen Type: URINE No comment entered. Ordering Provider: LINDA PERSON Report Released Date/Time: Sep 21, 2024 09:08 AM Reporting Lab: [address] [address] Performing Lab: [address] [address] MICROALBUMIN/CR EATININE RATIO 7.3 mg/g 0-29.9 MICROALBUMIN,QU ANTITATIVE 0.6 mg/dL RR UNAVAIL CREATININE URINE 81.65 mg/dL Sep 21, 2024 09:30 AM [facility] PHENOBARBITAL (q) Specimen Type: SERUM Comment: Test Performed by [facility], [facility], [address] [place] [address] Danis Lewis M.D., Ph.D., Director of Laboratories , CLIA [id number] TEST PERFORMED AT: , Ordering Provider: LINDA PERSON Report Released Date/Time: Sep 21, 2024 09:08 AM Reporting Lab: [address] [address] Performing Lab: [facility] [address] [address] PHENOBARBITAL (q) 5.2 mg/L L 15.0-40.0 Sep 21, 2024 09:30 AM [facility] HEMOGLOBIN A1C PANEL Specimen Type: BLOOD [...] Sep 21, 2024 09:08 AM Reporting Lab: [address] [address] Performing Lab: [address] [address] HEMOGLOBIN A1C 6.1 H 4.0-5.6 Sep 21, 2024 09:30 AM [facility] BASIC METABOLIC PANEL (non-fasting) Specimen Type: SERUM No comment entered. Ordering Provider: LINDA PERSON Report Released Date/Time: Sep 21, 2024 09:08 AM Reporting Lab: [address] [address] Performing Lab: [address] [address] UREA NITROGEN 10 mg/dL 7-25 GLUCOSE 107 mg/dL H 65-100 SODIUM 141 mmol/L 135-145 POTASSIUM 4.5 mmol/L 3.5-5.0 CHLORIDE 107 mmol/L 100-110 CO2 20 meq/L 20-30 CREATININE, Serum 0.85 mg/dL 0.50-1.40 eGFR(CKD-EPI 2020) >90 mL/min >60 Sep 21, 2024 09:30 AM [facility] LIVER FUNCTION Specimen Type: SERUM No comment entered. Ordering Provider: LINDA PERSON Report Released Date/Time: Sep 21, 2024 09:08 AM Reporting Lab: [place] [facility] [place] [facility] [address] [facility] [address] Performing Lab: [place] [facility] [place] [facility] [address] [facility] [address] PROTEIN,TOTAL 7.8 g/dL 6.0-8.3 ALBUMIN 4.4 g/dL [...] place. Date/Time Current Smoking Status Comment [facility] Nov 27, 2023 11:00 AM VA-TOBACCO QUIT 15 YRS OR MORE [place] [facility] Tobacco Use History This section includes a history of the smoking, or tobacco-related health factors, that were collected on or before the date of the Encounter. The data comes from the [place] facility where the Encounter took place. Date/Time Smoking Status/Tobac co Use Comment Facility Nov 27, 2023 11:00 AM VA-TOBACCO QUIT 15 YRS OR MORE [place] [facility] [place] [facility] Dec 02, 2022 08:00 AM VA-TOBACCO FORMER USER [facility] [place] [facility] Dec 02, 2022 08:00 AM VA-TOBACCO QUIT 15 YRS OR MORE [facility] [place] [facility] Nov 05, 2021 10:30 AM VA-TOBACCO FORMER USER [place] [facility] [place] [facility] Nov 05, 2021 10:30 AM VA-TOBACCO QUIT 1 TO < 5 YRS [facility] [place] [facility] Sep 14, 2020 02:00 PM VA-TOBACCO FORMER USER [facility] [place] [facility] Sep 14, 2020 02:00 PM VA-TOBACCO QUIT 5 TO < 15 YRS [facility] [place] [facility] Jan 22, 2018 03:40 PM QUIT TOBACCO USE > 7 YEARS AGO [facility] Jun 04, 2016 02:01 PM CURRENT SMOKER been smoking pass 20 yrs [facility] Jun 04, 2016 02:01 PM V1-PT DECLINES REF TO TOBACCO CESS PRGM [facility] Jun 04, 2016 02:01 PM V1-PT THINKING ABOUT QUIT TOBACCO USE [facility] Jul 18, 2014 03:31 PM V1-PT DECLINES REF TO TOBACCO CESS PRGM [facility] Jul 18, 2014 03:31 PM V1-PT DECLINES TOBACCO CESSATION MEDS [facility] Jul 18, 2014 03:31 PM V1-PT NOT INTERESTED IN QUIT TOBACCO USE [facility] Jan 09, 2014 10:43 AM CURRENT SMOKER pt smokes 1 pk of cigarettes per day. [facility] Jan 09, 2014 10:43 AM V1-PT THINKING ABOUT QUIT TOBACCO USE [facility] Aug 28, 2003 10:47 AM CURRENT SMOKER one pack q 6 days - he has cut down from 3 PPD. He is in the process of quitting [facility] Encounter Notes: All associated encounter notes This section contains the clinical notes associated to the Encounter. Date/Time Encounter Note(s) Provider Source Sep 26, 2024 09:50 AM PRIMARY CARE NOTE: LOCAL TITLE: SENT FAX/MAIL STANDARD TITLE: PRIMARY CARE NOTE DATE OF NOTE: SEP 26, 2024@09:50 ENTRY DATE: SEP 26, 2024@09:50:18 AUTHOR: DEBBIE GORMAN EXP COSIGNER: URGENCY: STATUS: COMPLETED FAX/MAIL SENT Receipt Facilitys Name: [facility] POC Name: Fax sent on: Sep Fax Number Used(If Applicable): Mailing Address Used (If Applicable): Desc. Of Records Released (Include dates of records): Faxed recent lab results /es/ DEBBIE GORMAN, MSN, RN, CNL PRIMARY CARE TEAM NURSE Signed: 09/26/2024 09:54 DEBBIE GORMANR [facility]N [facility]
--- OUTSIDE RECORDS SUMMARY | 2024-11-01 08:06 | XMS_ITS | Encounter Summary ---
Author Name [facility] [place] Address [address] [place] [address] Care Team Providers Care Sample Card Maker Name Role Phone ELIZABET ROBINS [...] Name Patient's Relationship to Policy Paul [facility] CE ORGANIZ [facility] AC Apr 18, 2018 [id number] WILLIS,MAR JUDITH SPOUSE AN[place] OF [place] ([place]) [facility] CE ORGANIZ [facility] Apr 18, 2018 [id number] WILLIS,MAR JUDITH SPOUSE BCBS [facility] CE ORGANIZ [facility] SHARE ACTIV E Apr 18, 2018 [id number] WILLIS,MAR JUDITH SPOUSE BCBS OF [facility] CE ORGANIZ [facility] Apr 18, 2018 [id number] WILLIS,MAR JUDITH PATIENT BCBS OF [facility] CE ORGANIZ BRENDA MCCABE [facility] Apr 18, 2018 [id number] WILLIS,MAR JUDITH SPOUSE [place] OF [place] PREFERRED PROVIDER ORGANIZAT ION (PPO) BRENDA MCCABE [facility] AC Apr 18, 2018 [id number] WILLIS,MAR JUDITH SPOUSE BCBS OF [facility] CE ORGANIZ BRENDA MCCABE [facility] ACT Apr 18, 2018 [id number] WILLIS,MAR JUDITH SPOUSE BCBS OF [facility] CE ORGANIZ BRENDA MCCABE [facility] AC Apr 18, 2018 [id number] [phone] WILLIS,MAR JUDITH SPOUSE [place] PRESCRIPT ION RX Oct 19, 2022 [id number] [id number] [phone] WILLIS,MAR JUDITH SPOUSE [place] PRESCRIPT ION RX22M A Oct 19, 2022 RX22MA [id number] WILLIS,LAVELLE AEL PATIENT [place] PRESCRIPT ION RX22M B Oct 19, 2022 RX22MB [id number] WILLIS,LAVELLE AEL PATIENT [place] PRESCRIPT ION BRENDA MCCABE [facility] AC Oct 19, 2022 RX22MB [id number] [phone] WILLIS,LAVELLE AEL SPOUSE [place] PRESCRIPT ION RX22M B Oct 19, 2022 RX22MB [id number] [phone] WILLIS,MAR JUDITH SPOUSE [place] PRESCRIPT I[place] OF [place] Oct 19, 2022 RX22MA [id number] [phone] WILLIS, SPOUSE [place] ([id number]) PRESCRIPT ION [place] Oct 19, 2022 RX22MB [id number] [phone] WILLIS,MAR JUDITH SPOUSE [place] BC[place] ([facility] CE ORGANIZ BRENDA MCCABE [facility] AC Apr 18, 2018 [id number] [phone] WILLISEDILBERTO SPOUSE [employer] PRES[place] 2018 L4TA [id number] WILLISEDILBERTO SPOUSE [employer] ([id number]) PRESCRIPT ION Apr 18, 2018 L4TA [id number] WILLIS,EDILBERTO WONG SPOUSE [employer] ([id number]) PRESCRIPT ION L4TA* Apr 18, 2020 L4TA [id number] WILLISEDILBERTOA SPOUSE [employer] ([id number]) PRESCRIPT ION Apr 18, 2018 L4TA [id number] WILLISEDILBERTO SPOUSE [employer] ([id number]) PRESCRIPT ION Apr 18, 2018 L4TA [id number] WILLISEDILBERTO SPOUSE [employer] ([id number]) PRESCRIPT ION L4TA* Apr 18, 2018 L4TA [id number] WILLISEDILBERTO Lynn SPOUSE [employer] ([id number]) PRESCRIPT ION L4TA Apr 18, 2018 L4TA [id number] WILLISEDILBERTO SPOUSE [employer]MIN[place] BROG[place] PRESCRIPT ION [place]BS OF [place] Apr 18, 2020 L4TA [id number] WILLISEDILBERTO SPOUSE [facility] CE ORGANIZAT ION W/OUT OF NETWORK BENEFITS [facility] ACT Apr 18, 2018 [id number] [phone] EDILBERTO PEDRO SPOUSE [place] BCBS [facility] (BLUECAR) [facility] CE ORGANIZAT ION [facility] AC Apr 18, 2018 [id number] EDILBERTO PEDRO SPOUSE MEDICARE (WNR) MEDICARE (M) PART A Mar 19, 1990 PART A [id number] WILLISLAVELLE AEL PATIENT MEDICARE (WNR) MEDICARE (M) PART A Mar 19, 1990 PART A [id number] [phone] WILLIS,LAVELLE AEL PATIENT MEDICARE (WNR) MEDICARE (M) PART A Mar 19, 1990 PART A [id number] [phone] WILLIS,LAVELLE AEL PATIENT MEDICARE (WNR) MEDICARE (M) PART A Mar 19, 1990 PART A [id number] WILLIS,LAVELLE AEL PATIENT MEDICARE (WNR) MEDICARE (M) PART A Mar 19, 1990 PART A [id number] WILLIS,LAVELLE AEL PATIENT MEDICARE (WNR) MEDICARE (M) PART A Mar 19, 1990 PART A [id number] WILLIS,LAVELLE AEL PATIENT MEDICARE (WNR) MEDICARE (M) PART A Mar 19, 1990 PART A [id number] [phone] WILLIS,LAVELLE AEL PATIENT MEDICARE (WNR) MEDICARE (M) PART A Mar 19, 1990 PART A [id number] WILLIS,LAVELLE AEL PATIENT MEDICARE (WNR) MEDICARE (M) PART A Mar 19, 1990 PART A [id number] [phone] WILLISLAVELLE AEL PATIENT MEDICARE (WNR) MEDICARE (M) PART A Mar 19, 1990 PART A [id number] WILLIS,LAVELLE AEL PATIENT MEDICARE (WNR) MEDICARE (M) PART A Mar 19, 1990 PART A [id number] [phone] WILLISLAVELLE AEL PATIENT Selected Encounter This section includes the information on record at [place] for the Encounter. Date/Time Encounter Type Encounter Description Reason Pro vider Source Sep 09, 2024 12:00 PM Outpatient Encounter COMMUNITY CARE [...] AM [facility] [place] [place] [facility] Sep 21, 2024 10:00 AM [place] [facility] Nov 28, 2024 09:30 AM [place] [facility] Dec 02, 2024 08:30 AM AMBULATORY - MEDICINE [facility] Lab Results: +/- 30 days of the encounter This section includes the Chemistry and Hematology Lab Results on record with [place] for the patient. Radiology Reports and Pathology Reports are provided separately, in subsequent sections. Lab Results This section contains the Chemistry/Hematology Results that were resulted 30 days before or 30 daysafter the date of the Encounter. Date/Time Source Result Type Result - Unit Interpretation Reference Range Comment Sep 21, 2024 10:35 AM [facility] MICROALBUMIN CREATININE RATIO PANEL Specimen Type: URINE No comment entered. Ordering Provider: LINDA PERSON Report Released Date/Time: Sep 21, 2024 09:08 AM Reporting Lab: [facility] [address] [address] Performing Lab: [facility] [address] [address] MICROALBUMIN/CR EATININE RATIO 7.3 mg/g 0-29.9 MICROALBUMIN,QU ANTITATIVE 0.6 mg/dL RR UNAVAIL CREATININE URINE 81.65 mg/dL Sep 21, 2024 09:30 AM [facility] PHENOBARBITAL (q) Specimen Type: SERUM Comment: Test Performed by Shai Dowd, [facility], [address] [place] [address] Danis Lewis M.D., Ph.D., Director of Laboratories , CLIA [id number] TEST PERFORMED AT: , Ordering Provider: LINDA PERSON Report Released Date/Time: Sep 21, 2024 09:08 AM Reporting Lab: [facility] [address] [address] Performing Lab: [facility] [address] [address] PHENOBARBITAL (q) 5.2 mg/L L 15.0-40.0 Sep 21, 2024 09:30 AM [facility] HEMOGLOBIN A1C PANEL [...] Sep 21, 2024 09:08 AM Reporting Lab: [address] [address] Performing Lab: [facility] [address] [address] HEMOGLOBIN A1C 6.1 H 4.0-5.6 Sep 21, 2024 09:30 AM [facility] BASIC METABOLIC PANEL (non-fasting) Specimen Type: SERUM No comment entered. Ordering Provider: LINDA PERSON Report Released Date/Time: Sep 21, 2024 09:08 AM Reporting Lab: [address] [address] Performing Lab: [address] [address] UREA NITROGEN 10 mg/dL 7-25 GLUCOSE 107 mg/dL H 65-100 SODIUM 141 mmol/L 135-145 POTASSIUM 4.5 mmol/L 3.5-5.0 CHLORIDE 107 mmol/L 100-110 CO2 20 meq/L 20-30 CREATININE, Serum 0.85 mg/dL 0.50-1.40 eGFR(CKD-EPI 2020) >90 mL/min >60 Sep 21, 2024 09:30 AM [facility] LIVER FUNCTION Specimen Type: SERUM No comment entered. Ordering Provider: LINDA PERSON Report Released Date/Time: Sep 21, 2024 09:08 AM Reporting Lab: [place] [facility] [address] [address] Performing Lab: [place] [facility] [address] [address] PROTEIN,TOTAL 7.8 g/dL 6.0-8.3 ALBUMIN 4.4 g/dL [...] mancia Nov 27, 2023 11:00 AM VA-TOBACCO QUIT 15 YRS OR MORE [place] [facility] Tobacco Use History This section includes a history of the smoking, or tobacco-related health factors, that were collected on or before the date of the Encounter. The data comes from the [place] facility where the Encounter took place. Date/Time Smoking Status/Tobac co Use Comment Facility Nov 27, 2023 11:00 AM VA-TOBACCO QUIT 15 YRS OR MORE [place] [facility] Dec 02, 2022 08:00 AM VA-TOBACCO FORMER USER [place] [facility] Dec 02, 2022 08:00 AM VA-TOBACCO QUIT 15 YRS OR MORE [place] [facility] [place] [facility] Nov 05, 2021 10:30 AM VA-TOBACCO FORMER USER [place] [facility] Nov 05, 2021 10:30 AM VA-TOBACCO QUIT 1 TO < 5 YRS [place] [facility] [place] [facility] Sep 14, 2020 02:00 PM VA-TOBACCO FORMER USER [place] [facility] Sep 14, 2020 02:00 PM VA-TOBACCO QUIT 5 TO < 15 YRS [facility] Jan 22, 2018 03:40 PM QUIT TOBACCO USE > 7 YEARS AGO [facility] Jun 04, 2016 02:01 PM CURRENT SMOKER been smoking pass 20 yrs [facility] Jun 04, 2016 02:01 PM V1-PT DECLINES REF TO TOBACCO CESS PRGM [facility] Jun 04, 2016 02:01 PM V1-PT THINKING ABOUT QUIT TOBACCO USE [facility] Jul 18, 2014 03:31 PM V1-PT DECLINES REF TO TOBACCO CESS PRGM [facility] Jul 18, 2014 03:31 PM V1-PT DECLINES TOBACCO CESSATION MEDS [facility] Jul 18, 2014 03:31 PM V1-PT NOT INTERESTED IN QUIT TOBACCO USE [facility] Jan 09, 2014 10:43 AM CURRENT SMOKER pt smokes 1 pk of cigarettes per day. [facility] Jan 09, 2014 10:43 AM V1-PT THINKING ABOUT QUIT TOBACCO USE [facility] Aug 28, 2003 10:47 AM CURRENT SMOKER one pack q 6 days - he has cut down from 3 PPD. He is in the process of quitting [facility] Encounter Notes: All associated encounter notes This section contains the clinical notes associated to the Encounter. Date/Time Encounter Note(s) Provider Source Sep 09, 2024 12:00 PM NONVA CONSULT: LOCAL TITLE: COMMUNITY CARE-CONSULT RESULT NOTE STANDARD TITLE: NONVA CONSULT DATE OF NOTE: SEP 09, 2024@12:00 ENTRY DATE: OCT 05, 2024@12:41:12 AUTHOR: REGI ZIMMER EXP COSIGNER: URGENCY: STATUS: COMPLETED VistA Imaging - Scanned Document SCANNED DOCUMENT SIGNATURE NOT REQUIRED Electronically Filed: 10/05/2024 by: REGI ZIMMER PLATFORM BEATER REGI ZIMMER [facility]
--- OUTSIDE RECORDS SUMMARY | 2024-11-01 08:06 | XMS_ITS | Encounter Summary ---
Author Name [facility] [place] Address [address] [place] [address] Care Team Providers Care Stoker Mechanic Name Role Phone ELIZABET ROBINS Primary Care [...] Patient's Relationship to Policy Paul [facility] CE ORGANIZ [facility] AC Apr 18, 2018 [id number] [phone] WILLIS,MAR JUDITH SPOUSE ANTHEM BCBS OF [place] (BLU[place]ARD) [facility] CE ORGANIZ [facility] Apr 18, 2018 [id number] WILLIS,MAR JUDITH SPOUSE BCBS [facility] CE ORGANIZ [facility] SHARE ACTIV E Apr 18, 2018 [id number] WILLIS,MAR JUDITH SPOUSE BCBS OF [facility] CE ORGANIZ [facility] Apr 18, 2018 [id number] WILLIS,MAR JUDITH PATIENT BCBS OF [facility] CE ORGANIZ BRENDA MCCABE [facility] Apr 18, 2018 [id number] WILLIS,MAR JUDITH SPOUSE [place] PREFERRED PROVIDER ORGANIZAT ION (PPO) BRENDA MCCABE [facility] AC Apr 18, 2018 [id number] WILLIS,MAR JUDITH SPOUSE BCBS OF [facility] CE ORGANIZ BRENDA MCCABE [facility] ACT Apr 18, 2018 [id number] WILLIS,MAR JUDITH SPOUSE BCBS OF [facility] CE ORGANIZ BRENDA MCCABE [facility] AC Apr 18, 2018 [id number] WILLIS,MAR JUDITH SPOUSE [place] PRESCRIPT ION [place] OF [place] Oct 19, 2022 RX22MA [id number] WILLIS, SPOUSE [place] PRESCRIPT ION RX22M A Oct 19, 2022 RX22MA [id number] WILLIS,LAVELLE AEL PATIENT [place] PRESCRIPT ION RX22M B Oct 19, 2022 RX22MB [id number] WILLIS,LAVELLE AEL PATIENT [place] PRESCRIPT ION BRENDA MCCABE [facility] AC Oct 19, 2022 RX22MB [phone] WILLIS,LAVELLE AEL SPOUSE [place] PRESCRIPT ION RX22M B Oct 19, 2022 RX22MB [id number] [phone] WILLIS,MAR JUDITH SPOUSE [place] PRESCRIPT ION RX Oct 19, 2022 [id number] [id number] WILLIS,MAR JUDITH SPOUSE [place] ([id number]) PRESCRIPT ION [place] Oct 19, 2022 RX22MB [id number] WILLIS,MAR JUDITH SPOUSE [place] ([facility] CE ORGANIZ BRENDA MCCABE [facility] AC Apr 18, 2018 [id number] [phone] WILLIS,EDILBERTO SOTELOZA SPOUSE [employer] PRESCRIPT I[place]BS [place] 2018 L4TA [id number] WILLIS,EDILBERTO WONG SPOUSE [employer] ([id number]) PRESCRIPT ION Apr 18, 2018 L4TA [id number] WILLIS,EDILBERTO WONG SPOUSE [employer] ([id number]) PRESCRIPT ION L4TA* Apr 18, 2020 L4TA [id number] WILLISEDILBERTOA SPOUSE [employer] ([id number]) PRESCRIPT ION L4TA* Apr 18, 2018 L4TA [id number] WILLIS,EDILBERTO BROOKS SPOUSE [employer] ([id number]) PRESCRIPT ION L4TA Apr 18, 2018 L4TA [id number] WILLIS,EDILBERTO WONG SPOUSE [employer] ([id number]) PRESCRIPT ION Apr 18, 2018 L4TA [id number] WILLISEDILBERTO SPOUSE [employer] ([id number]) PRESCRIPT ION Apr 18, 2018 L4TA [id number] WILLISEDILBERTO SPOUSE [employer]-MIN[place] BROGATION PRESCRIPT ION BCBS OF [place] Apr 18, 2020 L4TA [id number] [facility] CE ORGANIZAT ION W/OUT OF NETWORK BENEFITS [facility] ACT Apr 18, 2018 [id number] EDILBERTO PEDRO SPOUSE [place] BCBS [facility] (BLUECAR) [facility] CE ORGANIZAT ION [facility] AC Apr 18, 2018 [id number] EDILBERTO PEDRO SPOUSE MEDICARE (WNR) MEDICARE (M) PART A Mar 19, 1990 PART A [id number] WILLISLAVELLE AEL PATIENT MEDICARE (WNR) MEDICARE (M) PART A Mar 19, 1990 PART A [id number] WILLIS,LAVELLE AEL PATIENT MEDICARE (WNR) MEDICARE (M) PART A Mar 19, 1990 PART A [id number] WILLIS,LAVELLE AEL PATIENT MEDICARE (WNR) MEDICARE (M) PART A Mar 19, 1990 PART A [id number] WILLIS,LAVELLE AEL PATIENT MEDICARE (WNR) MEDICARE (M) PART A Mar 19, 1990 PART A [id number] WILLIS,LAVELLE AEL PATIENT MEDICARE (WNR) MEDICARE (M) PART A Mar 19, 1990 PART A [id number] WILLIS,LAVELLE AEL PATIENT MEDICARE (WNR) MEDICARE (M) PART A Mar 19, 1990 PART A [id number] [phone] WILLIS,LAVELLE AEL PATIENT MEDICARE (WNR) MEDICARE (M) PART A Mar 19, 1990 PART A [id number] WILLIS,LAVELLE AEL PATIENT MEDICARE (WNR) MEDICARE (M) PART A Mar 19, 1990 PART A [id number] WILLISLAVELLE AEL PATIENT MEDICARE (WNR) MEDICARE (M) PART A Mar 19, 1990 PART A [id number] WILLIS,LAVELLE AEL PATIENT MEDICARE (WNR) MEDICARE (M) PART A Mar 19, 1990 PART A [id number] [phone] WILLIS,LAVELLE AEL PATIENT Selected Encounter This section includes the information on record at [place] for the Encounter. Date/Time Encounter Type Encounter Description Reason Pro vider Source Oct 24, 2024 09:17 AM Outpatient Encounter TELEPHONE TRIAGE IHE Encounter [...] 20 appointments. The data comes from all [place] treatment facilities. Appointment Date/Time Appointment Type Appointme nt Facility Name Nov 28, 2024 09:30 AM AMBULATORY [place]ICINE [place] [facility] Dec 02, 2024 08:30 AM AMBULATORY [place]ICINE [place] [facility] Mar 20, 2025 09:00 AM AMBULATORY - MEDICINE [place] [facility] Social History: Smoking Status (Most [...] took place. Date/Time Current Smoking Status Comment [facility] Nov 27, 2023 11:00 AM VA-TOBACCO FORMER USER [place] [facility] Tobacco Use History This section includes a history of the smoking, or tobacco-related health factors, that were collected on or before the date of the Encounter. The data comes from the [place] facility where the Encounter took place. Date/Time Smoking Status/Tobac co Use Comment Facility Nov 27, 2023 11:00 AM VA-TOBACCO QUIT 15 YRS OR MORE [place] [facility] [place] [facility] Dec 02, 2022 08:00 AM VA-TOBACCO FORMER USER [place] [facility] [place] [facility] Dec 02, 2022 08:00 AM VA-TOBACCO QUIT 15 YRS OR MORE [place] [facility] [place] [facility] Nov 05, 2021 10:30 AM VA-TOBACCO FORMER USER [place] [facility] [place] [facility] Nov 05, 2021 10:30 AM VA-TOBACCO QUIT 1 TO < 5 YRS [place] [facility] [place] [facility] Sep 14, 2020 02:00 PM VA-TOBACCO FORMER USER [place] [facility] [place] [facility] Sep 14, 2020 02:00 PM VA-TOBACCO QUIT 5 TO < 15 YRS [place] [facility] [place] [facility] Jan 22, 2018 03:40 PM QUIT TOBACCO USE > 7 YEARS AGO [place] [facility] [place] [facility] Jun 04, 2016 02:01 PM [...] the Encounter. Date/Time Encounter Note(s) Provider Source Oct 24, 2024 09:17 AM RN PROGRESS NOTE: LOCAL TITLE: CCC: CLINICAL TRIAGE STANDARD TITLE: RN PROGRESS NOTE DATE OF NOTE: OCT 24, 2024@09:17:12 ENTRY DATE: OCT 24, 2024@09:17:12 AUTHOR: VEENA MADRID COSIGNER: URGENCY: STATUS: COMPLETED CCC: CLINICAL TRIAGE Has ADDENDA Patient Demographics Patient Name: CHAYA PEDRO Patient Primary Address: [address] [place] [id number] Patient Primary Phone: [phone] Patient : 1955 Patient Age: 68 Caller/Recipient Relation to Patient: Self Caller Name: CHAYA PEDRO Emergency Contact: KATIE WILLIS Triage Summary Chief Complaint: Cough System WHEN: Within 8 Hours Nurse's Recommendation / WHEN: Within 8 Hours System WHERE: Urgent care center Nurse's Recommendation / WHERE: Urgent [place] Nursing Plan and Disposition Referred patient to higher level of care Instructed to go to Urgent Care (UC) Provided location of Urgent Care Center Advised of [place] [facility] Benefits Other course(s) of action Generated msg to PACT/Provider Nurse Summary Nurse Summary: . SUBJECTIVE: -Lamy reported for the past 8 days, he has had a cough with wheezing. On 10/18/24, he was seen at the ER. Since discharge, he has been using Nebulizer with Albuterol every 4 hours. He reported his symptoms worsened, so he started using an old script he had for Prednisone, which he stopped two days ago. He noted his cough has worsened and and when triggered, he feels pain in his right kidney and lung , and in general still don't feel right . See [facility] details below for additional +/- signs & symptoms. RECOMMENDATION: -Urgent care w/in 8 hours DISPOSITION: -Vet was provided the following [place] -or- [place] [facility] urgent care, per location preference: [facility] [address] [place] [address] Main number: [phone] . Clinical Contact Center Codes Clinic/Location: V1 CWM PHONE [facility] RN Decision Support System Output: Triage Complete Triage Date: 10/24/2024, 09:08 AM Triage Note: Decision Support Tool Used: [facility] Phone Triage 24 Oct 2024 14:07:18 +0000 [facility] Demographics 69 y/o Male Results CC: Cough Software suggested: Within 8 Hours Software suggested follow-up location: Urgent care center Values and Measures Duration of CC: 8 Days Positive Responses HPI: breathing more rapidly than usual HPI: chest pain, pleuritic PMH: diabetes VS: pulse not taken VS: respiratory rate not taken VS: temperature not taken Negative Responses Denies: HPI: confusion, new or worsening Denies: HPI: cough, severe, onset within past 3 hours Denies: HPI: dyspnea, new or worsening Denies: HPI: fever, subjective Denies: HPI: sore throat Denies: HPI: vomiting Denies: HPI: wheezing, new or worsening Denies: MEDS: antibiotic Denies: MEDS: chemotherapy Denies: MEDS: insulin Denies: PMH: HIV positive Denies: PSH: organ transplant Denies: PSH: spleen removed IMPORTANT: This note was created by [facility] staff. Please do not alert the staff member by adding them as a signer for future communications. Alerts are not monitored by this user. /gaetano/ Veena DUMONT CCC RN Signed: 10/24/2024 09:17 Receipt Acknowledged By: 10/24/2024 09:30 /gaetano/ MARYJO GARCIA REGISTERED NURSE 10/24/2024 10:16 /gaetano/ Marcia Maurer RN Primary Care Staff Nurse 10/24/2024 ADDENDUM STATUS: COMPLETED Rn returned call answeed phone shortness of breath. Able to answer questions with pauses. Reports went to ED 10/17/24 and reports getting worse. Advised to seek higher level of care at local ER advised ambulance can be called but declines family will take him to [facility]. /gaetano/ MARYJO GARCIA REGISTERED NURSE Signed: 10/24/2024 09:28 VEENA MADRID [place] [facility]
--- OUTSIDE RECORDS SUMMARY | 2024-11-01 08:36 | XMS_ITS | Continuity of Care Document ---
Author Name [facility] Organization [facility] Care Team Providers Care School Librarian Name Role Phone [facility] Unavailable Unavailable Problems Combined list of problems from Department of Defense and Veterans Affairs facilities. It does not include entries that were removed or entered in error. Problem Status Onset Date Problem Type Date of Resolution Comments Source Deep venous thrombosis of upper extremity Active 07/30/20 15 Condition Aug 03, 2015 Entered By: MULU SAINI Comment: LUE, basilic vein [facility] Diverticulosis of sigmoid colon Inactive 04/04/20 09 Condition 08/02/2014 Aug 02, 2014 Entered By: MULU SAINI Comment: Found on otherwise normal 04/04/2009 colonoscopy. [facility] Alcohol dependence (SNOMED CT 01899081) Active Condition Mar 23, 2001 Entered By: ERIBERTO TOLBERT Comment: episodic [facility] Galeas's esophagus Active Condition Sep 08, 2016 Entered By: MARCIAL GUZMAN Comment: EGD 09/02/16 Dr. 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 U-ACR ordered. Pt to f/u to discuss medication options. Also, discuss adding ACEi and statin [facility] Diverticulitis Active Condition Jul 192006 Entered By: DOMINIK FREIRE Comment: abdominal pains [facility] Diverticulitis of colon (without mention of hemorrhage) (ICD-9-CM 562.11) Active Condition Jan 10 Entered By: DOMINIK FREIRE Comment: Intermittent colon spasms [facility] Diverticulosis Active Condition Sep Entered By: MARCIAL GUZMAN Comment: 2016 [facility] [place] [facility] Diverticulosis of sigmoid (ICD-9-CM 562.10) Active Condition [facility] Elevated liver enzymes level Active Condition Apr 08, 2022 Entered By: MURRAY CRAIN Comment: AST/ALT 43/57 (04/08/22). Pt to f/u to discuss statin. Consider Fatty Liver Disease w/u. HCV screen. 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 [facility] GERD Active Condition [facility] [place] [facility] History of substance abuse Active Condition Jan 13, 2023 Entered By: ELIZABET ROBINS Comment: MJ Cocaine ETOH --remission [facility] [place] [facility] Hyperlipidemia Active Condition [facility] Hyperlipidemia Active Condition Mar 202021 Entered By: MURRAY CRAIN Comment: Total chol/HDL/LDL/t rigs: 154/41/84/145 (04/08/22). F/U to discuss statin w/ T2DM [facility] [place] [facility] Hypertension Active Condition Apr 08, 2022 Entered By: MURRAY CRAIN Comment: Amlo 10. Discuss ACEi w/ T2DM. Renal function reassuring 04/08/22. [facility] [place] [facility] Lower urinary tract symptoms due to benign prostatic hypertrophy (SNOMED CT [id number]) Active Condition Apr 08, 2022 Entered By: MURRAY CRAIN Comment: PSA normal (04/08/22) [facility] Nephrolithiasis Active Condition February 16, 2015 Entered By: MULU SAINI Comment: On CT at [facility] 02/07/2015. [facility] Nonalcoholic steatohepatitis Active Condition Feb 12, 2023 Entered By: ELIZABET ROBINS Comment: No need for f/u in liver clinic unless changes in Albumin, INR or LFTs [facility] Obesity Active Condition [facility] Periodontal Disease NEC Active Condition [facility] Peripheral neuropathy due to type 2 diabetes mellitus Active Condition [facility] PTSD * (ICD-9-CM 309.81) Active Condition [facility] REFRACTION DISORDER NOS Active Condition [facility] Rosacea Active Condition [facility] Schizoaffective disorder (SNOMED CT 12369708) Active Condition [facility] Seasonal allergic rhinitis Active Condition [facility] Seborrheic Dermatitis, Unspecified (ICD-9-CM 690.10) Active Condition [facility] Seizure disorder Active Condition Jul 14, 2024 Entered By: ELIZABET ROBINS Comment: on valproic acid [facility] Seizures Active Condition [facility] Sleep apnea Active Condition [facility] Abdominal Pain of the Left Lower Quadrant (ICD-9-CM 789.04) Inactive Condition 01/11/2008 [facility] Appendectomy Inactive Condition 03/23/2001Mar Entered By: ERIBERTO TLOBERT Comment: childhood [facility] Cocaine dependence, episodic use Inactive Condition 01/13/2023 [facility] Marijuana Abuse Episodic Inactive Condition 01/13/2023 [facility] Nicotine Dependence (DSM-IV 305.1) Inactive Condition 01/13/2023 [facility] S/p R elbow surgery Inactive Condition 03/23/2001 [facility] Diagnosis: ICD-10-CM Z46.0 Encounter for fit/adjst of spectacles and contact lenses Active Diagnosis [facility] Diagnosis: ICD-10-CM G45.3 Amaurosis fugax Active Diagnosis [facility] Diagnosis: ICD-10-CM E11.9 Type 2 diabetes mellitus without complications Active Diagnosis [facility] Diagnosis: ICD-10-CM G40.501 Epileptic seiz rel to extrn causes, not ntrct, w stat epi Active Diagnosis [facility] Diagnosis: ICD-10-CM R19.7 Diarrhea, unspecified Active Diagnosis [facility] Diagnosis: ICD-10-CM G40.89 Other seizures Active Diagnosis [facility] Diagnosis: ICD-10-CM Z71.9 Counseling, unspecified Active Diagnosis [facility] Diagnosis: ICD-10-CM Z74.1 Need for assistance with personal care Active Diagnosis [facility] Diagnosis: ICD-10-CM K75.81 Nonalcoholic steatohepatitis (CHAKRABORTY) Active Diagnosis [facility] Diagnosis: ICD-10-CM J30.2 Other seasonal allergic rhinitis Active Diagnosis [facility] Diagnosis: ICD-10-CM Z12.2 Encntr screen for malignant neoplasm of respiratory organs Active Diagnosis [facility] Diagnosis: ICD-10-CM Z71.89 Other specified counseling Active Diagnosis [facility] Diagnosis: ICD-10-CM H54.62 Unqualified visual loss, left eye, normal vision right eye Active Diagnosis [facility] Diagnosis: ICD-10-CM N20.0 Calculus of kidney Active Diagnosis [facility] [place] [facility] Diagnosis: ICD-10-CM F25.9 Schizoaffective disorder, unspecified [facility] [place] [facility] Diagnosis: ICD-10-CM N41.0 Acute prostatitis Active Diagnosis [facility] [place] [facility] Diagnosis: ICD-10-CM M54.59 Other low back pain Active Diagnosis [facility] [place] [facility] Diagnosis: ICD-10-CM Z04.9 Encounter for examination and observation for unsp reason Active Diagnosis [facility] [place] [facility] Diagnosis: ICD-10-CM E11.42 Type 2 diabetes mellitus with diabetic polyneuropathy Active Diagnosis [facility] [place] [facility] Diagnosis: ICD-10-CM H04.123 Dry eye syndrome of bilateral lacrimal glands Active Diagnosis [facility] [place] [facility] Medications Combined list of outpatient medications from Department of Defense and Veterans Affairs facilities.Medications provided include 1) outpatient medications from the last 15 months, and 2) patient-reported medications. Medication Details Route Status Patient Instructions Prescription Expires Prescription Number Last Dispense Date Ordering Provider Order Date Order Qty Source ALBUTEROL 90MCG/ACTUA T (CFC-F) INHL,ORAL,8 .5GM DOSE COUNTER INHALE 2 PUFFS BY MOUTH EVERY 4 HOURS NEEDED FOR SHORTNES S OF BREATH RESPIR ATORY (INHAL ATION) ACTIVE 04/14/2025 [id number] 4 JULIENNE, ELIZABET JOHAN 2023 1 [facility] [place] ALBUTEROL SO4 3MG/IPRATRO PIUM BR 0.5MG/3ML INHL,3ML INHALE 1 VIAL (3ML) IN NEBULIZE R EVERY 4 HOURS NEEDED FOR BRONCHOS PASM RESPIR ATORY (INHAL ATION) ACTIVE 04/14/2025 [id number] 4 JULIENNE, ELIZABET JOHAN 2023 30 [facility] [place] [facility] AMLODIPINE BESYLATE 5MG TAB TAKE ONE TABLET BY MOUTH ONCE DAILY FOR BLOOD PRESSURE /HEART, DO NOT TAKE WITH GRAPEFRU IT JUICE ORAL ACTIVE 06/25/2025 [id number] 4 JULIENNE, ELIZABET JOHAN 2023 90 [facility] [place] AMLODIPINE BESYLATE 5MG TAB TAKE ONE TABLET BY MOUTH ONCE DAILY FOR BLOOD PRESSURE /HEART, DO NOT TAKE WITH GRAPEFRU IT JUICE ORAL DISCONT INUED 06/25/2024 [id number] 4 ELIZABET ROBINS 2022 90 [facility] ATORVASTATI N CA 80MG TAB TAKE ONE-HALF TABLET BY MOUTH AT BEDTIME FOR CHOLESTE ROL ORAL ACTIVE 04/09/2025 [id number] 4 MACK,AL ICE 2023 45 [facility] ATORVASTATI N CA 80MG TAB TAKE ONE-HALF TABLET BY MOUTH AT BEDTIME FOR CHOLESTE ROL ORAL DISCONT INUED 01/28/2024 [id number] MACK,AL ICE 2022 45 [facility] DEXTROMETHO RPHAN HBR 10MG/GUAIFE NESIN 100MG/5ML (AF & SF) LIQUID TAKE 5 MLS (ONE TEASPOON FUL) BY MOUTH EVERY 6 HOURS NEEDED FOR COUGH ORAL DISCONT INUED BY PROVIDE R 03/29/2025 [id number] 4 TYSON WEISS 2023 240 [facility] [place] DICLOFENAC NA 75MG TAB,EC TAKE ONE TABLET BY MOUTH TWICE DAILY NEEDED FOR PAIN/INF LAMMATIO N ORAL 07/28/2024 [id number] 4 ELIZABET ROBINS 2023 14 [facility] DOXYCYCLINE HYCLATE 50MG CAP TAKE ONE CAPSULE BY MOUTH ONCE DAILY ORAL DISCONT INUED BY PROVIDE R 04/12/2025 [id number] SUHAIL CAMPO AH B 2023 90 [facility] DOXYCYCLINE HYCLATE 50MG CAP TAKE ONE CAPSULE BY MOUTH TWICE DAILY FOR INFECTIO N CAUSED BY BACTERIA ORAL DISCONT INUED (EDIT) 05/28/2024 [id number] 4 SUHAIL CAMPO AH B 2022 120 [facility] [place] ERYTHROMYCI N 0.5% OINT,OPH APPLY THIN RIBBON INTO EACH EYE TWICE DAILY NEEDED FOR EYE INFECTIO N OPHTHA LMIC 03/30/2024 [id number] MERHAR,NO AH B 2022 1 [facility] [place] [facility] EYELID CLEANSER,EY E SCRUB PAD USE 1 PAD TOPICALL Y ONCE DAILY NEEDED DRY EYE TOPICA L ACTIVE 09/22/2025 [id number] 4 MERHAR,NO AH B 2023 30 [facility] [place] FAMOTIDINE 20MG TAB TAKE ONE TABLET BY MOUTH DAILY FOR STOMACH ACID ORAL ACTIVE 04/29/2025 [id number] 5 JULIENNE, ELIZABET JOHAN 2023 90 [facility] [place] FAMOTIDINE 20MG TAB TAKE ONE TABLET BY MOUTH DAILY FOR STOMACH ACID ORAL DISCONT INUED 04/22/2024 [id number] 4 JULIENNE, ELIZABET JOHAN 2022 90 [facility] [place] FLUTICASONE PROPIONATE 50MCG/SPRAY SOLN,NASAL, 16GM INSTILL 1 SPRAY INTO EACH NOSTRIL TWICE DAILY FOR NASAL IRRITATI ON/INFLA MMATION NASAL 04/27/2024 [id number] 4 TYSON WEISS 2023 1 [facility] KETOTIFEN 0.025% SOLN,OPH INSTILL 1 DROP INTO EACH EYE TWICE DAILY NEEDED FOR ALLERGIC CONJUNCT IVITIS (IF YOU WEAR CONTACT LENSES, WAIT 10 MINUTES BEFORE INSERTIN G LENSES) OPHTHA LMIC ACTIVE 12/10/2024 [id number] 4 MERHAR,NO AH B 2023 10 [facility] [place] LACTOBACILL US ACIDOPHILUS CAP TAKE 1 CAPSULE BY MOUTH TWICE DAILY FOR PROBIOTI C SUPPLEME NTATION ORAL DISCONT INUED (EDIT) 06/11/2024 [id number] 3 JULIENNE, ELIZABET JOHAN 2022 100 [facility] [place] LACTOBACILL US ACIDOPHILUS CAP TAKE 1 CAPSULE BY MOUTH TWICE DAILY ORAL 10/15/2024 [id number] 4 JULIENNE, ELIZABET JOHAN 2022 200 [facility] [place] LEVOCETIRIZ INE DIHYDROCHLO RIDE 5MG TAB TAKE ONE TABLET BY MOUTH EVERY EVENING FOR ALLERGIE S ORAL ACTIVE 03/24/2025 [id number] 5 JULIENNE, ELIZABET JOHAN 2023 30 [facility] [place] LEVOCETIRIZ INE DIHYDROCHLO RIDE 5MG TAB TAKE ONE TABLET BY MOUTH EVERY EVENING FOR ALLERGIE S ORAL DISCONT INUED 03/02/2024 [id number] 4 JULIENNE, ELIZABET JOHAN 2022 30 [facility] LIDOCAINE 5% PATCH APPLY 1 PATCH TOPICALL Y EVERY 12 HOURS NEEDED (LEAVE PATCH ON FOR 12 HOURS, THEN REMOVE PATCH) TOPICA L 08/14/2024 [id number] 4 JULIENNE, ELIZABET JOHAN 2022 30 [facility] METFORMIN HCL 1000MG TAB TAKE ONE TABLET BY MOUTH TWICE DAILY FOR DIABETES ORAL ACTIVE 02/16/2025 [id number] 4 MACK,AL ICE 2023 180 [facility] METFORMIN HCL 1000MG TAB TAKE ONE TABLET BY MOUTH TWICE DAILY FOR DIABETES ORAL DISCONT INUED 01/28/2024 [id number] MACK,AL ICE 2022 180 [facility] METRONIDAZO LE 0.75% GEL,TOP APPLY MODERATE AMOUNT TOPICALL Y TWICE DAILY FOR ACNE ROSACEA TOPICA L ACTIVE 05/03/2025 [id number] HARPAL GREENBERG 2023 90 [facility] [place] MULTIVITAMI NS W/MINERALS CAP/TAB TAKE ONE CAP/TAB BY MOUTH ONCE DAILY ORAL ACTIVE ALEKSANDAR PERSON 2023 [facility] [place] ONDANSETRON HCL 4MG TAB,ORALLY DISINTEGRAT ING PLACE ONE TABLET ON THE TONGUE EVERY 8 HOURS NEEDED FOR NAUSEA AND VOMITING (ALLOW TABLET TO DISSOLVE ON TONGUE, AND SWALLOW WITH SALIVA) ORAL ACTIVE 07/14/2025 [id number] ELIZABET ROBINS 2023 30 [facility] OTHER CAP/TAB TAKE THC BY MOUTH TWICE DAILY ORAL ACTIVE ALEKSANDAR PERSON 2023 [facility] PEG-400 0.4%/PROPYL AYAAN GLYCOL 0.3% SOLN,OPH INSTILL 1 DROP INTO EACH EYE FOUR TIMES DAILY NEEDED DRY EYE OPHTHA LMIC ACTIVE 09/22/2025 [id number] 4 MERHAR,NO AH B 2023 30 [facility] PEG-400 0.4%/PROPYL AYAAN GLYCOL 0.3% SOLN,OPH INSTILL 1 DROP INTO EACH EYE FOUR TIMES DAILY NEEDED DRY EYE OPHTHA LMIC DISCONT INUED 12/10/2024 [id number] 4 MERHAR,NO AH B 2023 30 [facility] PEG-400 0.4%/PROPYL AYAAN GLYCOL 0.3% SOLN,OPH INSTILL 1 DROP INTO EACH EYE FOUR TIMES DAILY NEEDED DRY EYE OPHTHA LMIC DISCONT INUED 11/25/2023 [id number] MERHAR,NO AH B 2022 30 [facility] PHENOBARBIT AL 32.4MG TAB TAKE ONE TABLET BY MOUTH TWICE DAILY ORAL ACTIVE 02/15/2025 [id number] REMY NAIK 2023 60 [facility] PREDNISONE 20MG TAB TAKE TWO TABLETS BY MOUTH ONCE DAILY ORAL DISCONT INUED BY WANDA Patterson 04/27/2024 [id number] TYSON WEISS 2023 10 [facility] SILDENAFIL CITRATE 25MG TAB TAKE ONE TABLET BY MOUTH ONCE DAILY FOR ERECTILE DYSFUNCT ION TAKE 1 HOUR PRIOR TO SEXUAL ACTIVITY ORAL SUSPEND ED 06/02/2025 [id number] MAURA ROBINSA JOHAN 2023 18 [facility] Allergies, Adverse Reactions, Alerts Combined list of allergies from Department of Defense and Veterans Affairs facilities. It does not include entries that were removed or entered in error. Substance Category Reaction Severity Reaction type Status Date Reported Comments Source AKWA TEARS Propensity to adverse reactions to drug (finding) ITCHING,MICHELLE ERING EYES, REDNESS active 4 [facility] DIFLUCAN Propensity to adverse reactions to drug (finding) Anaphylaxis , Angioedema, Dyspnea active 9 [facility] FLUOROMETHOL ONE Propensity to adverse reactions to drug (finding) Eruption active 9 [facility] LEVETIRACETA M Propensity to adverse reactions to drug (finding) Nightmares SEVERE active 2 [facility] OXYCODONE Propensity to adverse reactions to drug (finding) Eruption active 1 [facility] PHENYTOIN Propensity to adverse reactions to drug (finding) Eruption active 4 [facility] REFRESH TEARS Propensity to adverse reactions to drug (finding) Eruption active 9 [facility] Immunizations Combined list of available immunizations from the Department of Defense and Veterans Affairs facilities. Immunization Series Date Given Administered By Site Reaction Lot Number CVX Code Drug Pharmaceutical Analyst Status Comments Source COVID-19 (MODERNA), MRNA, LNP-S, PF, 50 MCG/0.5 ML (AGES 12+ YEARS) 2023 DEBBIE GORMAN LEFT DELTO ID [id number] 312 complet ed [facility] INFLUENZA, UNSPECIFIED FORMULATION 2023 88 complet ed [facility] COVID-19 (MODERNA), MRNA, LNP-S, PF, 50 MCG/0.5 ML (AGES 12+ YEARS) 1 2023 DEBBIE GORMAN LEFT DELTO ID [id number] 312 complet ed [facility] INFLUENZA, HIGH-DOSE, QUADRIVALENT 2023 DEBBIE GORMAN RIGHT DELTO ID [id number] 197 complet ed [facility] INFLUENZA VACCINE, QUADRIVALENT, ADJUVANTED 2021 205 complet ed [facility] PNEUMOCOCCAL CONJUGATE PCV20, POLYSACCHARID E [id number] CONJUGATE, ADJUVANT, PF 2021 216 complet ed [facility] ZOSTER RECOMBINANT 2 2021 187 complet ed [facility] COVID-19 (PFIZER), MRNA, LNP-S, PF, 30 MCG/0.3 ML DOSE 3 2020 208 complet ed [facility] INFLUENZA, INJECTABLE, QUADRIVALENT, PRESERVATIVE FREE 2020 150 complet ed Partner:Serena MALHOTRA.Admin istered by:[facility] [id number]) .[facility]:[phone] [id number] ddress:[address] [facility] .[id number] Dosage: ML 0.5 [facility] COVID-19 (PFIZER), MRNA, LNP-S, PF, 30 MCG/0.3 ML DOSE 2 2020 208 complet ed PFR; [id number]; 1 [facility] COVID-19 (PFIZER), MRNA, LNP-S, PF, 30 MCG/0.3 ML DOSE 1 2020 208 complet ed PFR; [id number]; 1 [facility] ZOSTER RECOMBINANT 1 2019 187 complet ed [facility] INFLUENZA, INJECTABLE, QUADRIVALENT, PRESERVATIVE FREE 2019 150 complet ed [facility] DTAP 2015 20 complet ed Site: Right Deltoid [facility] FLU,3 YRS (HISTORICAL) 2015 88 complet ed Site: Left Deltoid [facility] FLU,3 YRS (HISTORICAL) 2013 88 complet ed Site: Right Deltoid [facility] PNEUMOCOCCAL POLYSACCHARID E PPV23 2013 33 complet ed [facility] FLU,3 YRS (HISTORICAL) 2013 88 complet ed [facility] INFLUENZA, UNSPECIFIED FORMULATION 2006 88 complet ed [facility] FLU,3 YRS (HISTORICAL) 2002 [place] [facility] T 88 complet ed [facility] Results Combined list of recent chemistry, hematology and other laboratory results from Department of Defense and Veterans Affairs, ranging from 15 months to all on record, depending upon the facility. Order Name Results Value Reference Range Date Interpretation Specimen Comments Source MICROALBU MIN CREATININ E RATIO PANEL MICROALBUMI N/CREATININ E [MASS RATIO] IN URINE 7.3 mg/g 0 - 29.9 09/21 Specimen Type: URINE No comment entered. Ordering Provider: LINDA PERSON Report Released Date/Time: Sep 21, 2024 09:08 AM Reporting Lab: [facility] [place] [facility] [address] [address] Performing Lab: [facility] [place] [facility] [address] [address] [facility] [place] [facility] MICROALBU MIN CREATININ E RATIO PANEL MICROALBUMI N [MASS/VOLUM E] IN URINE 0.6 mg/dL 09/21 Specimen Type: URINE No comment entered. Ordering Provider: LINDA PERSON Report Released Date/Time: Sep 21, 2024 09:08 AM Reporting Lab: [facility] [place] [facility] [address] [address] Performing Lab: [facility] [place] [facility] [address] [facility] [address] [facility] MICROALBU MIN CREATININ E RATIO PANEL CREATININE [MASS/VOLUM E] IN URINE 81.65 mg/dL 09/21 Specimen Type: URINE No comment entered. Ordering Provider: LINDA PERSON Report Released Date/Time: Sep 21, 2024 09:08 AM Reporting Lab: [facility] [address] [address] Performing Lab: [facility] [address] [facility] BASIC METABOLIC PANEL (non-fast ing) UREA NITROGEN [MASS/VOLUM E] IN SERUM OR PLASMA 10 mg/dL 7 - 25 09/21 Specimen Type: SERUM No comment entered. Ordering Provider: LINDA PERSON Report Released Date/Time: Sep 21, 2024 09:08 AM Reporting Lab: [facility] [address] [address] Performing Lab: [facility] [address] [facility] BASIC METABOLIC PANEL (non-fast ing) GLUCOSE [MASS/VOLUM E] IN SERUM OR PLASMA 107 mg/dL 65 - 100 09/21 H Specimen Type: SERUM No comment entered. Ordering Provider: LINDA PERSON Report Released Date/Time: Sep 21, 2024 09:08 AM Reporting Lab: [facility] [address] Performing Lab: [facility] [address] [facility] BASIC METABOLIC PANEL (non-fast ing) SODIUM [MOLES/VOLU ME] IN SERUM OR PLASMA 141 mmol/L 135 - 145 09/21 Specimen Type: SERUM No comment entered. Ordering Provider: LINDA PERSON Report Released Date/Time: Sep 21, 2024 09:08 AM Reporting Lab: [facility] [address] [address] Performing Lab: [facility] [place] [facility] [address] [address] [facility] BASIC METABOLIC PANEL (non-fast ing) POTASSIUM [MOLES/VOLU ME] IN SERUM OR PLASMA 4.5 mmol/L 3.5 - 5.0 09/21 Specimen Type: SERUM No comment entered. Ordering Provider: LINDA PERSON Report Released Date/Time: Sep 21, 2024 09:08 AM Reporting Lab: [facility] [address] [address] Performing Lab: [facility]AM[facility]ITALUSE[address] [address] [facility] BASIC METABOLIC PANEL (non-fast ing) CHLORIDE [MOLES/VOLU ME] IN SERUM OR PLASMA 107 mmol/L 100 - 110 09/21 Specimen Type: SERUM No comment entered. Ordering Provider: LINDA PERSON Report Released Date/Time: Sep 21, 2024 09:08 AM Reporting Lab: [facility]USEUN[facility] [address] [facility] [address] Performing Lab: [facility]OSPITALUSE[address] [address] [facility] BASIC METABOLIC PANEL (non-fast ing) CARBON DIOXIDE, TOTAL [MOLES/VOLU ME] IN SERUM OR PLASMA 20 meq/L 20 - 30 09/21 Specimen Type: SERUM No comment entered. Ordering Provider: LINDA PERSON Report Released Date/Time: Sep 21, 2024 09:08 AM Reporting Lab: [facility]TR[facility]ITALUSEUN[facility] [address] [facility] [address] Performing Lab: [facility] [address] [facility] BASIC METABOLIC PANEL (non-fast ing) CREATININE [MASS/VOLUM E] IN SERUM OR PLASMA 0.85 mg/dL 0.50 - 1.40 09/21 Specimen Type: SERUM No comment entered. Ordering Provider: LINDA PERSON Report Released Date/Time: Sep 21, 2024 09:08 AM Reporting Lab: [address] [address] Performing Lab: [address] [address] [facility] BASIC METABOLIC PANEL (non-fast ing) GLOMERULAR FILTRATION RATE/1.73 SQ M.PREDICTED [VOLUME RATE/AREA] IN SERUM, PLASMA OR BLOOD BY CREATININE- BASED FORMULA (CKD-EPI 2020) >90mL/ min 60 09/21 Specimen Type: SERUM No comment entered. Ordering Provider: LINDA PERSON Report Released Date/Time: Sep 21, 2024 09:08 AM Reporting Lab: [address] [address] Performing Lab: [address] [address] [facility] HEMOGLOBI N A1C PANEL HEMOGLOBIN A1C/HEMOGLO BIN.TOTAL IN BLOOD BY HPLC 6.1 4.0 - 5.6 09/21 H Specimen Type: BLOOD Comment: Values obtained from A1C measurement s can vary. For atypical A1C assays, a reported value of 7.0 could actually be between 6.72 and 7.28 if measured by a reference method. A reported value of 9.0 could actually be between 8.73 and 9.27. Ref: http://www. ngsp.org/[place] Pdata.asp Ordering Provider: LINDA PERSON Report Released Date/Time: Sep 21, 2024 09:08 AM Reporting Lab: [address] [address] Performing Lab: [address] [address] [facility] LIVER FUNCTION PROTEIN [MASS/VOLUM E] IN SERUM OR PLASMA 7.8 g/dL 6.0 - 8.3 09/21 Specimen Type: SERUM No comment entered. Ordering Provider: LINDA PERSON Report Released Date/Time: Sep 21, 2024 09:08 AM Reporting Lab: [facility] [place] [facility] [address] [facility] [address] Performing Lab: [facility] [place] [facility] [address] [facility] [address] [facility] [place] [facility] LIVER FUNCTION ALBUMIN [MASS/VOLUM E] IN SERUM OR PLASMA 4.4 g/dL 3.5 - 5.0 09/21 Specimen Type: SERUM No comment entered. Ordering Provider: LINDA PERSON Report Released Date/Time: Sep 21, 2024 09:08 AM Reporting Lab: [facility] [place] [facility] [address] [facility] [address] Performing Lab: [facility] [place] [facility] [address] [facility] [address] [facility] [place] [facility] LIVER FUNCTION ALKALINE PHOSPHATASE [ENZYMATIC ACTIVITY/VO LUME] IN SERUM OR PLASMA 89 U/L 40 - 150 09/21 Specimen Type: SERUM No comment entered. Ordering Provider: LINDA PERSON Report Released Date/Time: Sep 21, 2024 09:08 AM Reporting Lab: [facility] [place] [facility] [address] [facility] [address] Performing Lab: [facility] [place] [facility] [address] [facility] [address] [facility] [place] [facility] LIVER FUNCTION ASPARTATE AMINOTRANSF ERASE [ENZYMATIC ACTIVITY/VO LUME] IN SERUM OR PLASMA 42 U/L 5 - 34 09/21 H Specimen Type: SERUM No comment entered. Ordering Provider: LINDA PERSON Report Released Date/Time: Sep 21, 2024 09:08 AM Reporting Lab: [facility] [place] [facility] [address] [facility] [address] Performing Lab: [facility] [place] [facility] [address] [facility] [address] [facility] [place] [facility] LIVER FUNCTION ALANINE AMINOTRANSF ERASE [ENZYMATIC ACTIVITY/VO LUME] IN SERUM OR PLASMA 52 U/L 09/21 Specimen Type: SERUM No comment entered. Ordering Provider: LINDA PERSON Report Released Date/Time: Sep 21, 2024 09:08 AM Reporting Lab: [facility] [place] [address] [address] Performing Lab: [facility] [place] [address] [address] [facility] [place] [facility] LIVER FUNCTION BILIRUBIN.T OTAL [MASS/VOLUM E] IN SERUM OR PLASMA 0.3 mg/dL 0.2 - 1.2 09/21 Specimen Type: SERUM No comment entered. Ordering Provider: LINDA PERSON Report Released Date/Time: Sep 21, 2024 09:08 AM Reporting Lab: [facility] [place] [address] [address] Performing Lab: [facility] [address] [address] [facility] PHENOBARB ITAL (q) PHENOBARBIT AL [MASS/VOLUM E] IN SERUM OR PLASMA 5.2 mg/L 15.0 - 40.0 09/21 L Specimen Type: SERUM Comment: Test Performed by [facility], [facility], [address] [place] [address] Danis Lewis M.D., Ph.D., Director of Laboratorie s , CLIA [id number] TEST PERFORMED AT: , Ordering Provider: LINDA PERSON Report Released Date/Time: Sep 21, 2024 09:08 AM Reporting Lab: [facility] [place] [address] [address] Performing Lab: [facility] [place] [facility] [address] [address] [facility] MICROALBU MIN CREATININ E RATIO PANEL MICROALBUMI N/CREATININ E [MASS RATIO] IN URINE 10.8 mg/g 0 - 29.9 06/01 Specimen Type: URINE No comment entered. Ordering Provider: LINDA PERSON Report Released Date/Time: Jun 01, 2024 11:53 AM Reporting Lab: [facility] [place] [facility] [address] [facility] [address] Performing Lab: [facility] [place] [facility] [address] [facility] [address] [facility] [place] [facility] MICROALBU MIN CREATININ E RATIO PANEL MICROALBUMI N [MASS/VOLUM E] IN URINE 1.1 mg/dL 06/01 Specimen Type: URINE No comment entered. Ordering Provider: LINDA PERSON Report Released Date/Time: Jun 01, 2024 11:53 AM Reporting Lab: [facility] [place] [facility] [address] [facility] [address] Performing Lab: [facility] [place] [facility] [address] [facility] [address] [facility] [place] [facility] MICROALBU MIN CREATININ E RATIO PANEL CREATININE [MASS/VOLUM E] IN URINE 101.63 mg/dL 06/01 Specimen Type: URINE No comment entered. Ordering Provider: LINDA PERSON Report Released Date/Time: Jun 01, 2024 11:53 AM Reporting Lab: [facility] [place] [address] [address] Performing Lab: [facility] [place] [address] [address] [facility] [place] [facility] BASIC METABOLIC PANEL (non-fast ing) UREA NITROGEN [MASS/VOLUM E] IN SERUM OR PLASMA 13 mg/dL 7 - 25 06/01 Specimen Type: SERUM No comment entered. Ordering Provider: LINDA PERSON Report Released Date/Time: May 30, 2024 10:29 AM Reporting Lab: [facility] [place] [facility] [address] [facility] [address] Performing Lab: [facility] [place] [address] [address] [facility] [place] [facility] BASIC METABOLIC PANEL (non-fast ing) GLUCOSE [MASS/VOLUM E] IN SERUM OR PLASMA 115 mg/dL 65 - 100 06/01 H Specimen Type: SERUM No comment entered. Ordering Provider: LINDA PERSON Report Released Date/Time: May 30, 2024 10:29 AM Reporting Lab: [facility] [place] [facility] [address] [facility] [address] Performing Lab: [facility] [place] [facility] [address] [facility] [address] [facility] [place] [facility] BASIC METABOLIC PANEL (non-fast ing) SODIUM [MOLES/VOLU ME] IN SERUM OR PLASMA 140 mmol/L 135 - 145 06/01 Specimen Type: SERUM No comment entered. Ordering Provider: LINDA PERSON Report Released Date/Time: May 30, 2024 10:29 AM Reporting Lab: [facility] [place] [address] [address] Performing Lab: [facility] [address] [address] [facility] BASIC METABOLIC PANEL (non-fast ing) POTASSIUM [MOLES/VOLU ME] IN SERUM OR PLASMA 4.3 mmol/L 3.5 - 5.0 06/01 Specimen Type: SERUM No comment entered. Ordering Provider: LINDA PERSON Report Released Date/Time: May 30, 2024 10:29 AM Reporting Lab: [facility] [place] [address] [address] Performing Lab: [facility] [place] [facility] [address] [facility] [address] [facility] [place] [facility] BASIC METABOLIC PANEL (non-fast ing) CHLORIDE [MOLES/VOLU ME] IN SERUM OR PLASMA 107 mmol/L 100 - 110 06/01 Specimen Type: SERUM No comment entered. Ordering Provider: LINDA PERSON Report Released Date/Time: May 30, 2024 10:29 AM Reporting Lab: [facility] [place] [address] [address] Performing Lab: [facility] [place] [facility] [address] [facility] [address] [facility] BASIC METABOLIC PANEL (non-fast ing) CARBON DIOXIDE, TOTAL [MOLES/VOLU ME] IN SERUM OR PLASMA 21 meq/L 20 - 30 06/01 Specimen Type: SERUM No comment entered. Ordering Provider: LINDA PERSON Report Released Date/Time: May 30, 2024 10:29 AM Reporting Lab: [address] [address] Performing Lab: [address] [address] [facility] BASIC METABOLIC PANEL (non-fast ing) CREATININE [MASS/VOLUM E] IN SERUM OR PLASMA 0.84 mg/dL 0.50 - 1.40 06/01 Specimen Type: SERUM No comment entered. Ordering Provider: LINDA PERSON Report Released Date/Time: May 30, 2024 10:29 AM Reporting Lab: [address] [address] Performing Lab: [address] [address] [facility] BASIC METABOLIC PANEL (non-fast ing) GLOMERULAR FILTRATION RATE/1.73 SQ M.PREDICTED [VOLUME RATE/AREA] IN SERUM, PLASMA OR BLOOD BY CREATININE- BASED FORMULA (CKD-EPI 2020) >90mL/ min 60 06/01 Specimen Type: SERUM No comment entered. Ordering Provider: LINDA PERSON Report Released Date/Time: May 30, 2024 10:29 AM Reporting Lab: [address] [address] Performing Lab: [address] [address] [facility] HEMOGLOBI N A1C PANEL HEMOGLOBIN A1C/HEMOGLO BIN.TOTAL IN BLOOD BY HPLC 5.8 4.0 - 5.6 06/01 H Specimen Type: BLOOD Comment: Values obtained from A1C measurement s can vary. For atypical A1C assays, a reported value of 7.0 could actually be between 6.72 and 7.28 if measured by a reference method. A reported value of 9.0 could actually be between 8.73 and 9.27. Ref: http://www. ngsp.org/[place] Pdata.asp Ordering Provider: LINDA PERSON Report Released Date/Time: May 30, 2024 10:29 AM Reporting Lab: [facility] [place] [address] [address] Performing Lab: [facility] [address] [facility] LIPID PANEL, NON FASTING CHOLESTEROL [MASS/VOLUM E] IN SERUM OR PLASMA 126 mg/dL 06/01 Specimen Type: SERUM No comment entered. Ordering Provider: LINDA PERSON Report Released Date/Time: Jun 01, 2024 10:12 AM Reporting Lab: [facility] TRN [facility] [address] Performing Lab: [facility] [address] [address] [facility] LIPID PANEL, NON FASTING TRIGLYCERID E [MASS/VOLUM E] IN SERUM OR PLASMA 114 mg/dL 0 - 150 06/01 Specimen Type: SERUM No comment entered. Ordering Provider: LINDA PERSON Report Released Date/Time: Jun 01, 2024 10:12 AM Reporting Lab: [facility] [place] [address] [address] Performing Lab: [facility] [address] [address] [facility] LIPID PANEL, NON FASTING CHOLESTEROL IN LDL [MASS/VOLUM E] IN SERUM OR PLASMA BY CALCULATION 60 mg/dL 0 - 129 06/01 Specimen Type: SERUM No comment entered. Ordering Provider: LINDA PERSON Report Released Date/Time: Jun 01, 2024 10:12 AM Reporting Lab: [facility] [address] Performing Lab: [facility] [address] [facility] [address] [facility] LIPID PANEL, NON FASTING CHOLESTEROL .TOTAL/CHOL ESTEROL IN HDL [MASS RATIO] IN SERUM OR PLASMA 2.9 06/01 Specimen Type: SERUM No comment entered. Ordering Provider: LINDA PERSON Report Released Date/Time: Jun 01, 2024 10:12 AM Reporting Lab: [address] [address] Performing Lab: [address] [address] [facility] LIPID PANEL, NON FASTING CHOLESTEROL IN HDL [MASS/VOLUM E] IN SERUM OR PLASMA 43 mg/dL 40 - 60 06/01 Specimen Type: SERUM No comment entered. Ordering Provider: LINDA PERSON Report Released Date/Time: Jun 01, 2024 10:12 AM Reporting Lab: [address] [address] Performing Lab: [address] [address] [facility] HEMOGLOBI N A1C PANEL HEMOGLOBIN A1C/HEMOGLO BIN.TOTAL IN BLOOD BY HPLC 6.2 4.0 - 5.6 02/15 H Specimen Type: BLOOD Comment: Values obtained from A1C measurement s can vary. For atypical A1C assays, a reported value of 7.0 could actually be between 6.72 and 7.28 if measured by a reference method. A reported value of 9.0 could actually be between 8.73 and 9.27. Ref: http://www. ngsp.org/[place] Pdata.asp Ordering Provider: BECK MACK Report Released Date/Time: Dec 10, 2023 06:17 PM Reporting Lab: [address] [address] Performing Lab: [address] [address] [facility] Vital Signs Combined list of inpatient and outpatient Vital Signs from Department of Defense and Veterans Affairs, ranging from 12 months to all on record, depending upon the facility. Vital Sign Value Date Comments Source SYSTOLIC BLOOD PRESSURE 122 07/13/20 24 09:47:46 [facility] [place] DIASTOLIC BLOOD PRESSURE 86 09:47:46 [facility] [place] PULSE OXIMETRY 94 07/13/2024 09:47:46 [facility] PAIN 4 07/13/2024 09:47:46 [facility] [place] PULSE 88 07/13/2024 09:47:46 [facility] [place] [facility] RESPIRATION 16 07/13/2024 09:47:46 [facility] [place] [facility] SYSTOLIC BLOOD PRESSURE 126 06/28/20 11:41:55 [facility] [place] DIASTOLIC BLOOD PRESSURE 87 11:41:55 [facility] [place] [facility] PULSE OXIMETRY 95 06/28/2024 11:41:55 [facility] WEIGHT 214 06/28/2024 11:41:55 [facility] BMI 35kg/m2 06/28/2024 11:41:55 [facility] PAIN 10 06/28/2024 11:41:55 [facility] [place] HEIGHT 66 06/28/2024 11:41:55 [facility] TEMPERATURE 97.8 06/28/2024 11:41:55 [facility] [place] PULSE 90 06/28/2024 11:41:55 [facility] [place] RESPIRATION 16 06/28/2024 11:41:55 [facility] [place] [facility] SYSTOLIC BLOOD PRESSURE 138 06/01/20 24 11:29:03 [facility] [place] [facility] DIASTOLIC BLOOD PRESSURE 86 024 11:29:03 [facility] [place] [facility] PULSE OXIMETRY 96 06/01/2024 11:29:03 [facility] WEIGHT 215 06/01/2024 11:29:03 [facility] [place] BMI 36kg/m2 06/01/2024 11:29:03 [facility] [place] PAIN 0 06/01/2024 11:29:03 [facility] [place] [facility] TEMPERATURE 97.8 06/01/2024 11:29:03 [facility] [place] [facility] PULSE 93 06/01/2024 11:29:03 [facility] [place] [facility] RESPIRATION 16 06/01/2024 11:29:03 [facility] [place] [facility] SYSTOLIC BLOOD PRESSURE 132 03/28/20 24 10:36:00 [facility] [place] [facility] DIASTOLIC BLOOD PRESSURE 97 024 10:36:00 [facility] [place] [facility] PULSE OXIMETRY 97 03/28/2024 10:36:00 [facility] WEIGHT 208.1 03/28/2024 10:36:00 [facility] BMI 35kg/m2 03/28/2024 10:36:00 [facility] [place] TEMPERATURE 99.1 03/28/2024 10:36:00 [facility] PULSE 122 03/28/2024 10:36:00 [facility] RESPIRATION 20 03/28/2024 10:36:00 [facility] [place] SYSTOLIC BLOOD PRESSURE 115 12/10/19 24 09:52:34 [facility] [place] DIASTOLIC BLOOD PRESSURE 76 024 09:52:34 [facility] [place] PULSE OXIMETRY 97 12/10/2023 09:52:34 [facility] WEIGHT 211 12/10/2023 09:52:34 [facility] BMI 35kg/m2 12/10/2023 09:52:34 [facility] PAIN 3 12/10/2023 09:52:34 [facility] HEIGHT 65 12/10/2023 09:52:34 [facility] TEMPERATURE 97.2 12/10/2023 09:52:34 [facility] PULSE 82 12/10/2023 09:52:34 [facility] [place] RESPIRATION 16 12/10/2023 09:52:34 [facility] Encounters Combined list of: 1) Encounters from Department of Veterans Affairs facilities going back up to thelast 18 months. 2) Encounters from the Department of [employer] facilities going back up to 280 months. Location Location Details Encounter Type Encounter Number Reason For Visit Attending Provider ADM Date DC Date Status Disposition Source [facility] Encounter [id number] 05/07 [facility] DETERMINE REFRACTIVE [place] [id number] Diagnos is: ICD-10- CM H04.123 Dry eye syndrom e of bilater al lacrima l glands< br/> MERHAR,DEBORAH H B 05/28 [facility] Out[facility] Encounter [id number] 05/29 [facility] FIT SPECTACLES BIFOCAL [id number] Diagnos is: ICD-10- CM Z46.0 Encount er for fit/adj st of spectac les and contact lenses< br/> WHITEMADONNA A 05/29 [facility] En[facility] [id number] 05/29 [facility] HOT/COLD BOTLE/CAP/ COL/WRAP [id number] Diagnos is: ICD-10- CM H04.123 Dry eye syndrom e of bilater al lacrima l glands< br/> MERMADDIE,DEBORAH H B 06/01 [facility] Encounter [id number] 06/01 [facility] OFFICE O/P EST MOD 30-39 MIN [id number] Diagnos is: ICD-10- CM E11.42 Type 2 diabete s mellitu s with diabeti c polyneu ropathy
KOLE MACK 06/04 [facility] OFF/OP EST MAY X REQ PHY/QHP [id number] Diagnos is: ICD-10- CM E11.9 Type 2 diabete s mellitu s without complic ations< br/> SOLEDAD GUERRERO 06/04 [facility] Out[facility] Encounter [id number] 06/09 [facility] Encounter [id number] 06/09 [facility] Encounter [id number] 06/15 [facility] Encounter [id number] 06/24 [facility] Encounter [id number] ZAHIDA ARRIAZA 07/05 [facility] Encounter [id number] 07/13 [facility] Encounter [id number] 07/16 [facility] OFF/OP EST MAY X REQ PHY/QHP [id number] Diagnos is: ICD-10- CM Z04.9 Encount er for examina tion and observa tion for unsp reason< br/> RODERICK GORMAN LLE L 07/30 [facility] OFFICE O/P EST MOD 30-39 MIN [id number] Diagnos is: ICD-10- CM M54.59 Other low back pain
JULIENNE,L ADRIANNE JOHAN 07/30 [facility] En[facility] [id number] 08/12 [facility] OFFICE O/P EST LOW 20-29 MIN [id number] Diagnos is: ICD-10- CM N41.0 Acute prostat itis
JULIENNE,L ADRIANNE JOHAN 08/14 [facility] En[facility] [id number] 08/19 [facility] Encounter [id number] 08/21 [facility] En[facility] [id number] 08/21 [facility] Encounter [id number] 08/27 [facility] HC PRO PHONE CALL 11-20 MIN [id number] Diagnos is: ICD-10- CM F25.9 Schizoa ffectiv e disorde r, unspeci fied
Lia VIERA 08/31 [facility] Out[facility] Encounter [id number] 09/03 [facility] Encounter [id number] 09/24 [facility]counter [id number] 10/15 [facility] Encounter [id number] 10/22 [facility]counter [id number] 11/10 [facility]counter [id number] 11/12 [facility]counter [id number] 11/24 [facility] Encounter [id number] 11/27 [facility] OFFICE O/P EST MOD 30 MIN [id number] Diagnos is: ICD-10- CM N20.0 Calculu s of kidney< br/> JULIENNE,L ADRIANNE JOHAN 11/27 [facility] Encounter [id number] 11/27 [facility]counter [id number] 11/28 [facility] Encounter [id number] 12/10 [facility] OFFICE O/P EST MOD 30 MIN [id number] Diagnos is: ICD-10- CM E11.9 Type 2 diabete s mellitu s without complic ations< br/> KOLE MACK 12/10 [facility] OFF/OP EST MAY X REQ PHY/QHP [id number] Diagnos is: ICD-10- CM E11.9 Type 2 diabete s mellitu s without complic ations< br/> SOLEDAD GUERRERO 12/14 [facility] Out[facility] Encounter [id number] 12/20 [facility]counter [id number] 12/20 [facility]counter [id number] 01/12 [facility] Encounter [id number] 01/12 [facility] INTRM OPH EXAM EST PATIENT [id number] Diagnos is: ICD-10- CM H54.62 Unquali fied visual loss, left eye, normal vision right eye<br/ > CATALINA CRAIG 01/12 [facility] [facility] [id number] 02/03 [facility] [id number] 02/08 [facility]counter [id number] 02/11 [facility]counter [id number] 02/15 [facility] Encounter [id number] 02/15 [facility] MTMS BY PHARM CARTON STENCILER 15 MIN [id number] Diagnos is: ICD-10- CM E11.9 Type 2 diabete s mellitu s without complic ations< br/> LINDA PERSON A 02/16 [facility] En[facility] [id number] 02/22 [facility] [id number] 03/21 [facility] [id number] 03/23 [facility] Encounter [id number] 03/28 [facility] OFF/OP EST MAY X REQ PHY/QHP [id number] Diagnos is: ICD-10- CM Z71.89 Other specifi ed pediatric genetic counselor ing<br/ > Shaji LLANES 03/28 [facility] QNHP OL DIG ASSMT&MGMT 11-20 [id number] Diagnos is: ICD-10- CM Z12.2 Encntr screen for maligna nt neoplas m of respira tory organs< br/> PUCHALSKI, REGI L 03/28 [facility] OFFICE O/P EST LOW 20 MIN [id number] Diagnos is: ICD-10- CM J30.2 Other seasona l allergi c rhiniti s
RICARDO WEISS 03/28 [facility] En[facility] [id number] 04/06 [facility]counter [id number] 04/06 [facility] Encounter [id number] DEBORAH CAMPO 04/11 [facility] Encounter [id number] 04/11 [facility] Encounter [id number] 04/11 [facility] Encounter [id number] 04/19 [facility] Encounter [id number] 04/22 [facility] Encounter [id number] 04/26 [facility] Encounter [id number] 05/02 [facility] Encounter [id number] 05/02 [facility]counter [id number] 05/03 [facility] Encounter [id number] 05/19 [facility] Encounter [id number] 05/20 [facility] Encounter [id number] 05/24 [facility]counter [id number] 05/30 [facility] Encounter [id number] 05/30 [facility] MTMS BY PHARM ADDL 15 MIN [id number] Diagnos is: ICD-10- CM E11.9 Type 2 diabete s mellitu s without complic ations< br/> GDULA,LINDA A 06/01 [facility] OFFICE O/P EST MOD 30 MIN [id number] Diagnos is: ICD-10- CM K75.81 Nonalco holic steatoh epatiti s (CHAKRABORTY)< br/> JULIENNE,L ADRIANNE JOHAN 06/01 [facility] ([id number]) PRO PHONE CALL 21-30 MIN [id number] Diagnos is: ICD-10- CM Z74.1 Need for assista nce with persona l care
SATINDER MITCHELL N 06/03 [facility]89[facility] Encounter [id number] 06/03 [facility] Outpatient Encounter [id number] 06/03 [facility] HLTH BHV ASSMT/REAS SESSMENT [id number] Diagnos is: ICD-10- CM Z74.1 Need for assista nce with persona l care
KHRIS CALLE E 06/14 [facility] Encounter [id number] 1.06/21 [facility] PROGRAM INTAKE ASSESSMENT [id number] 1. Diagnos is: ICD-10- CM Z74.1 Need for assista nce with persona l care
AGUSTIN WHITAKER 06/22 [facility] En[facility] [id number] 06/23 [facility] Encounter [id number]/24 [facility] Out[facility] Encounter [id number]/26 [facility] Encounter [id number] 1.06/27 [facility] HC PRO PHONE CALL 11-20 MIN [id number] 1. Diagnos is: ICD-10- CM Z71.9 Blockman ing, unspeci fied
Kelly GARCIA 06/27 [facility] Encounter [id number] 06/28 [facility] OFFICE O/P EST MOD 30 MIN [id number] Diagnos is: ICD-10- CM G40.89 Other seizure s
JULIENNE,L ADRIANNE JOHAN 06/28 [facility] En[facility] [id number] 07/01 [facility] Out[facility] Encounter [id number]/03 [facility]counter [id number] 07/06 [facility] Encounter [id number] [facility] OFFICE O/P EST MOD 30 MIN [id number] Diagnos is: ICD-10- CM R19.7 Diarrhe a, unspeci fied
ENRIQUE UMANZOR 07/08 [facility] OFFICE O/P EST MOD 30 MIN [id number] Diagnos is: ICD-10- CM G40.501 Epilept ic seiz rel to extrn causes, not ntrct, w stat epi<br/ > JULIENNE,L ADRIANNE JOHAN 07/13 [facility] Out[facility] Encounter [id number] 07/14 [facility] Out[facility] Encounter [id number] 08/10 [facility]counter [id number] 1.08/12 [facility]counter [id number] 1.08/25 [facility] Out[facility] Encounter [id number] [facility] MTMS BY PHARM ADDL 15 MIN [id number] 1. Diagnos is: ICD-10- CM E11.9 Type 2 diabete s mellitu s without complic ations< br/> GDULADAELINDA A 09/21 [facility] COMPRE OPH EXAM EST PT 1/> [id number] Diagnos is: ICD-10- CM G45.3 Amauros is fugax<b r/> JAHAIRA,DEBORAH H B 09/21 [facility] FIT SPECTACLES BIFOCAL [id number] Diagnos is: ICD-10- CM Z46.0 Encount er for fit/adj st of spectac les and contact lenses< br/> MERHAR,DEBORAH H B 09/21 [facility] Out[facility] Encounter [id number] 09/26 [facility] Encounter [id number] 10/24 [facility] Social History Combined list of available smoking, tobacco, and other social history from Department of Defense and Veterans Affairs facilities. Social History Type Response Date Comment Source Tobacco smoking status NHIS [facility] History of tobacco use DE-TOBACCO QUIT 15 YRS OR MORE 11/27/2023 [facility] History of tobacco use DE-TOBACCO FORMER USER 12/02/2022 [facility] History of tobacco use DE-TOBACCO FORMER USER 11/05/2021 [facility] History of tobacco use QUIT TOBACCO USE > 7 YEARS AGO 01/22/2018 [facility] History of tobacco use CURRENT SMOKER 06/04/2016 been smoking pass 20 yrs [facility] History of tobacco use V1-PT DECLINES TOBACCO CESSATION MEDS 07/18/2014 [facility] History of tobacco use CURRENT SMOKER 01/09/2014 pt smokes 1 pk of cigarettes per day. [facility] History of tobacco use CURRENT TOBACCO USER 09/27/2007 [facility] History of tobacco use CURRENT SMOKER 07/28/2007 [facility] History of tobacco use CURRENT SMOKER 08/28/2003 one pack q 6 days - he has cut down from 3 PPD. He is in the process of quitting [facility] History of tobacco use CURRENT SMOKER 12/19/2002 [facility] History of tobacco use CURRENT SMOKER 11/30/2001 [facility] Plan of Care List of future care activities from Department of Veterans Affairs facilities. Additional future care activities may be listed in the Assessment and Plan section. Date/Time Care Activity Care Activity Detail Facili ty 11/28/2024 AMBULATORY - MEDICINE [facility] 12/02/2024 AMBULATORY - MEDICINE [facility] 03[facility]20/2025 [facility]ULAT[facility] - [facility]
[2024-11-01 08:37] LABS: MANUAL DIFF FLAG NO
[2024-11-01 08:42] LABS: Basophils Percent Auto 0.3 % (0-2); Eosinophils Absolute Auto 0.3 X10*3/uL (0.0-0.4); Eosinophils Percent Auto 2.8 % (0-4); Hematocrit 46.9 % (42.0-52.0); Hemoglobin 15.7 g/dl (14.0-18.0); Imm Gran Abs Auto 0.07 X10*3/uL (0.00-0.03); Imm Gran Pct Auto 0.7 % (0.0-0.4); Lymphocytes Absolute Auto 2.7 X10*3/uL (1.2-4.9); Lymphocytes Percent Auto 27.2 % (20-40); Mean Corpuscular HGB Conc 33.5 g/dl (31.0-36.0); Mean Corpuscular Hemoglobin 31.3 pg (27.0-33.0); Mean Corpuscular Volume 93.6 fL (80.0-98.0); Mean Platelet Volume 9.1 fL (9.4-12.4); Monocytes Absolute Auto 0.5 X10*3/uL (0.1-1.2); Monocytes Percent Auto 5.4 % (2-11); Neutrophils Absolute Auto 6.3 x10*3/uL (2.0-8.3); Neutrophils Percent Auto 63.6 % (45-73); Platelet Count 215 X10*3/uL (160-400); Red Blood Count 5.01 X10*6/uL (4.60-5.80); Red Cell Distribution Width 13.3 % (11.0-16.0); White Blood Count 9.9 X10*3/uL (4.8-10.8)
[2024-11-01 09:09] LABS: Alanine Aminotransferase 70 U/L (0-40); Albumin Level 4.3 g/dL (3.5-5.0); Alkaline Phosphatase 85 U/L (39-117); Anion Gap 15 (12-20); Aspartate Amino Transferase 60 U/L (5-37); Bilirubin Total 0.5 mg/dL (0.0-1.0); Blood Urea Nitrogen 11 mg/dL (9-16); Calcium 9.1 mg/dL (8.4-10.2); Carbon Dioxide 23 mmol/L (22-29); Chloride 105 mmol/L (96-108); Creatinine Clr Calc Pharmacy 77.4; Estimated Glomerular Filt Rate > 60; Glucose Random 176 mg/dL (60-115); Potassium 4.2 mmol/L (3.3-5.1); Sodium 139 mmol/L (135-145); Total Protein 7.5 g/dL (6.5-8.0)
--- NOTE | 2024-11-01 10:34 | ED.MALEGU ---
HPI - Male Genitourinary General Chief complaint: Urogenital-Male Stated complaint: Kidney stone Time Seen by Provider: 11/01/24 10:33 Source: patient and RN notes reviewed Mode of arrival: ambulatory Limitations: no limitations History of Present Illness ED Provider: Joyce Andersen PA-C HPI Narrative: This is a 68-year-old male, with a history of sleep apnea, asthma, diabetes, GERD, diverticulitis, PTSD, seizure disorder on phenobarbital, hypertension, who presents emergency department with multiple complaints. Patient states that at 3:00 a.m. this morning, he developed right-sided flank pain and also felt pain radiating into his groin. He states that he noticed some blood in his urine, as well as dysuria, urinary hesitancy. Has a history of kidney stones in symptoms feel similar. Patient also reports that last week he was diagnosed with pneumonia which treated with a course of antibiotics. He states that he finish the course however states that this morning he coughed black phlegm. Denies any fevers or chills. He does report some chest pain and shortness for breath as well as palpitations. Denies any testicular pain or swelling. Related Data Home Medications ?Medication ?Instructions ?Recorded ?Confirmed metformin 500 mg tablet 1,000 mg PO BID 09/02/23 11/01/24 amlodipine 5 mg tablet 5 mg PO DAILY 11/01/24 11/01/24 atorvastatin 80 mg tablet 80 mg PO BEDTIME 11/01/24 11/01/24 ipratropium 0.5 mg-albuterol 3 mg 3 ml inhalation Q4H PRN Shortness 11/01/24 11/01/24 (2.5 mg base)/3 mL nebulization Of Breath Or Wheezing soln ketotifen fumarate 0.025 % (0.035 1 drp ophthalmic (eye) BID PRN 11/01/24 11/01/24 %) eye drops Allergic Conjuctivitis levocetirizine 5 mg tablet 5 mg PO QPM 11/01/24 11/01/24 metronidazole 0.75 % topical gel 1 appl topical BID 11/01/24 11/01/24 ondansetron 4 mg disintegrating 4 mg PO Q8H PRN nausea and vomiting 11/01/24 11/01/24 tablet peg 400-propylene glycol 0.4 %-0.3 1 drp ophthalmic (eye) QID PRN Dry 11/01/24 11/01/24 % eye drops Eyes phenobarbital 32.4 mg tablet 32.4 mg PO BID 11/01/24 11/01/24 sildenafil 25 mg tablet 25 mg PO DAILY PRN Sexual Activity 11/01/24 11/01/24 Previous Rx's ?Medication ?Instructions ?Recorded albuterol sulfate 90 mcg/actuation 2 puff inhalation Q4-6H PRN 08/29/20 aerosol inhaler shortness of breath or wheezing #6.7 grams famotidine 20 mg tablet (Pepcid AC) 20 mg PO BID 3 days #6 tabs 03/15/21 Allergies Allergy/AdvReac Type Severity Reaction Status Date / Time fentanyl [FENTANYL] Allergy Severe CARDIAC Verified 11/01/24 11:19 ARREST fluconazole [From DIFLUCAN] Allergy Severe Hives Verified 11/01/24 11:19 fosphenytoin [FOSPHENYTOIN] Allergy Severe Hives Verified 11/01/24 11:19 levofloxacin [From LEVAQUIN] Allergy Severe Hives Verified 11/01/24 11:19 oxycodone [From PERCOCET] Allergy Severe Hives Verified 11/01/24 11:19 divalproex sodium Allergy Unknown Itching Verified 11/01/24 11:19 [From DEPAKOTE] Iodinated Contrast Media Allergy Anaphylaxis Verified 11/01/24 11:21 [IV Contrast Dye] hydrocodone Allergy Severe Hives Uncoded 11/01/24 11:19 percocet Allergy Severe Unknown Uncoded 11/01/24 11:19 oxycodone Allergy Unknown Unknown Uncoded 11/01/24 11:19 Review of Systems Review of Systems: Yes all other systems are reviewed and are negative Constitutional: Constitutional: Reports as per HPI [facility] Past Medical History Medical History Sleep apnea Asthma DMII (diabetes mellitus, type 2) GERD (gastroesophageal reflux disease) Diverticulitis PTSD (post-traumatic stress disorder) Seizures Hypertension Surgical History Hx of lithotripsy Hx of elbow surgery Hx of appendectomy Hx of umbilical hernia repair Hx of laparoscopy Social History Social History Unable to assess alcohol history related to: Unknown Alcohol intake: never Patient Tobacco Use Status: Former Tobacco user Use of substances other than those prescribed or required for medical reasons: Unknown Substance Use Type: Marijuana Advance Directives: No Advance Directives Information Provided: Yes Physical Exam Vital Signs: Vital Signs: Last Vital Signs Temp 98.6 F 11/01/24 19:34 Pulse 82 11/01/24 19:34 Resp 20 11/01/24 19:34 BP 110/77 11/01/24 19:34 Pulse Ox 95 11/01/24 19:34 O2 Del Method Nasal Cannula 11/01/24 19:34 O2 Flow Rate 2 11/01/24 14:26 BMI result Body Mass Index 33.9 Const: General: cooperative, comfortable and no acute distress Orientation/consciousness: patient oriented x3 Limitations: no limitations HEENT: Head: Yes normal to inspection, Yes normocephalic and Yes atraumatic Ears: hearing grossly normal bilaterally General nose exam: Normal external nose present Face and sinus: Yes normal facial exam Mouth: Normal oral and palatal mucosa present, oropharynx normal and moist mucous membranes Throat: Yes posterior oropharynx normal Eyes: General: appearance normal, both eyes and all related structures Eyelids: Yes eyelids normal Conjunctivae: conjunctivae normal Sclerae: sclerae normal Pupils: Equal, round and reactive pupils present EOM: EOMs intact bilaterally Neck: Neck: Yes normal visual inspection, Yes full ROM and Yes no lymphadenopathy Lymphatic: no lymphadenopathy noted Chest: Chest palpation & inspection: normal inspection of the chest Resp: Effort & Inspection: normal respiratory effort and able to speak in complete sentences Auscultation: clear to auscultation bilaterally, no crackles, no rales, no rhonchi and no wheezes Cardio: Rate: regular rate Rhythm: regular rhythm Heart sounds: S1 normal heart sound present and S2 normal heart sound present GI: Other: Abdomen is soft, he does have tenderness palpation in the right flank. No rebound or guarding. Inspection: Yes normal to inspection : Other: Right-sided CVA tenderness. General: Yes CVA tenderness Back/Spine/Pelvis: Back: CVA tenderness Skin: General skin exam: no rashes or lesions noted Trauma: no lacerations or abrasions Wounds: no wounds Neuro: General: patient oriented x3 and moves all extremities Cranial nerves: Yes CN's II-XII intact bilaterally and Yes Equal, round and reactive pupils present Cognition (Neuro): normal cognition Motor exam (neuro): 5/5 motor strength present throughout and Pronator motor function not present Extrem: General: Yes normal to inspection Right upper extremity: normal to inspection Left upper extremity: normal to inspection Right lower extremity: normal to inspection Left lower extremity: normal to inspection Course Reevaluation(s) Reevaluation #1: When patient was getting EKG, patient started to have a seizure, I ran over to the patient's bedside, witnessing seizure. This lasted approximately 20 seconds. Lorazepam 2 mg IM was given as patient does not have IV access at this time. Time: 12:03 Reevaluation #2: Patient was moved over to the main emergency department as patient was in fast track. Patient had 2nd witnessed seizure while of trying to obtain IV access. I had my attending physician, Dr. Patel, over to assess patient. Recommending 2nd dose of Ativan 2 mg IV. Given that this is his 2nd witnessed seizure in the department, patient should be admitted for uncontrolled seizures. We are still awaiting CT abdomen and chest, CT head and neck were also ordered due to to seizures. Time: 12:30 Reevaluation #3: Urine returns, no hematuria noted. Abdomen pelvis CT revealing bilateral nonobstructing nephrolithiasis, small fat containing umbilical hernia and diastasis abdominal rectus muscles, diverticular disease, hepatomegaly and hepatic steatosis, coronary artery disease, CT chest revealing probable atelectasis, lung bases, coronary artery disease, and arthrosclerosis disease. Paraseptal emphysematous changes, both lung apices. CT head and neck are still pending. Added CPK, lactic acid, ethanol level, seizure pads were already placed on stretcher, will continue to closely monitor. Time: 13:13 Additional Reevaluation(s): 1432 - Lactic acid elevated at 2.3 > due to seizure. Phenobarbital level subtherapeutic at 6.9. Will medicate with phenobarb, talk to pharmacist, will give 1 time dose of 150 IV. We will continue to closely monitor. Discussed case with hospitalist, patient admitted for further evaluation. Medications Administered Generic Name Dose Route Start Last Admin Trade Name Freq PRN Reason Stop Dose Admin Acetaminophen 650 mg 11/01/24 16:06 11/01/24 18:12 Acetaminophen 325 Mg Tablet PO 650 mg Q6H PRN Administration Pain, Mild 1-3,fever,headache Insulin Human Lispro 0 unit 11/01/24 16:30 11/01/24 18:45 Insulin Lispro 100 Unit/Ml 3 Ml Vial SUBCUT Not Given QIDACHS [facility] Protocol Discontinued Medications Generic Name Dose Route Start Last Admin Trade Name Freq PRN Reason Stop Dose Admin Acetaminophen 1,000 mg in 100 mls @ 400 mls/hr 11/01/24 14:10 11/01/24 19:07 Ofirmev IV 11/01/24 14:24 Infused ONCE ONE Infusion Lidocaine 1 patch 11/01/24 14:36 11/01/24 15:59 Lidocaine 4 % Patch Adh..Patch TRANSDERMA 11/01/24 14:37 1 patch ONCE ONE Administration Protocol Lorazepam 2 mg 11/01/24 12:03 11/01/24 12:11 Lorazepam 2 Mg/Ml Vial IM 11/01/24 12:04 2 mg ONCE ONE Administration Lorazepam 2 mg 11/01/24 12:47 11/01/24 12:38 Lorazepam 2 Mg/Ml Vial IVPUSH 11/01/24 12:48 2 mg ONCE ONE Administration Morphine Sulfate 15 mg 11/01/24 10:47 11/01/24 10:51 Morphine Sulfate Immed Release 15 Mg Tablet PO 11/01/24 10:48 15 mg ONCE ONE Administration Phenobarbital Sodium 130 mg 11/01/24 14:24 11/01/24 18:32 Phenobarbital Sodium 130 Mg/Ml Vial IVPUSH 11/01/24 14:25 130 mg ONCE ONE Administration Medical Decision Making Medical Decision Making [facility] Narrative: This is a 68-year-old male, with a history of sleep apnea, asthma, diabetes, GERD, diverticulitis, PTSD, seizure disorder, hypertension, who presents emergency department with multiple complaints. Patient reports right-sided flank pain, hematuria, as well as black sputum with cough. He was treated with an antibiotic last week after being diagnosed with pneumonia. On arrival, patient mildly hypertensive at 135/97 over, tachycardic at 111bpm. Patient does report this plaque sputum, I discussed this case with my attending physician, Dr. Mesa. Patient reports that he was recently admitted for 1 week due to seizure disorder at [facility] in June. He has not hypoxic, or tachycardic, PE is less likely however given dark sputum, discussed options of doing a CT chest, CT abdomen. Patient reports that he is allergic to IV therefore CTA unable to be performed, will obtain CT chest, and CT abdomen and pelvis. Patient reports that he gets seizures when he is in pain as well as when he gets IVs if it is not done through an ultrasound.Patient requesting to have medicine at this time, I medicated him with morphine 15 mg orally Plan: Labs, urine, CT abd/pelvic, CT chest Differential Diagnosis Differential Diagnoses: The differential diagnosis associated with the presentation includes Obstructive uropathy, UTI, acute cystitis, Admission/Observation Consideration of admission/observation: Escalation of care including admission/observation considered Lab Data MDM Lab Attestation statement: I reviewed the patient's lab results. No leukocytosis, stable H&H, chemistry revealing lactic acid at 2.4 after seizure, slight elevation in AST ALT at 60 and 70, troponin 3.7 11/01/24 08:18 11/01/24 08:18 Labs: Lab Results 11/01/24 11/01/24 11/01/24 Range/Units 08:18 10:59 12:46 WBC 9.9 (4.8-10.8) X10*3/uL RBC 5.01 (4.60-5.80) X10*6/uL Hgb 15.7 (14.0-18.0) g/dl Hct 46.9 (42.0-52.0) % MCV 93.6 (80.0-98.0) fL MCH 31.3 (27.0-33.0) pg MCHC 33.5 (31.0-36.0) g/dl RDW 13.3 (11.0-16.0) % Plt Count 215 (160-400) X10*3/uL MPV 9.1 L (9.4-12.4) fL Immature Gran % (Auto) 0.7 H (0.0-0.4) % Neut % (Auto) 63.6 (45-73) % Lymph % (Auto) 27.2 (20-40) % [place] % (Auto) 5.4 (2-11) % Eos % (Auto) 2.8 (0-4) % Baso % (Auto) 0.3 (0-2) % Lymph # (Auto) 2.7 (1.2-4.9) X10*3/uL [place] # (Auto) 0.5 (0.1-1.2) X10*3/uL Eos # (Auto) 0.3 (0.0-0.4) X10*3/uL Baso # (Auto) 0.0 (0.0-0.2) X10*3/uL Abs Immat Gran (auto) 0.07 H (0.00-0.03) X10*3/uL Absolute Neuts (auto) 6.3 (2.0-8.3) x10*3/uL Absolute Nucleated RBC 0.000 (0.0-0.012) X10*3/uL Nucleated RBC % (auto) 0.0 (0.0-0.2) /100WBC Sodium 139 (135-145) mmol/L Potassium 4.2 (3.3-5.1) mmol/L Chloride 105 (96-108) mmol/L Carbon Dioxide 23 (22-29) mmol/L Anion Gap 15 (12-20) BUN 11 (9-16) mg/dL Creatinine 1.00 (0.5-1.4) mg/dL Estim Creat Clear Calc 77.4 Estimated GFR > 60 Random Glucose 176 H (60-115) mg/dL Lactic Acid (0.5-2.0) mmol/L Lactic Acid F/U @ 2Hr (0.5-2.0) mmol/L Calcium 9.1 (8.4-10.2) mg/dL Magnesium 2.1 (1.6-2.6) mg/dL Total Bilirubin 0.5 (0.0-1.0) mg/dL AST 60 H (5-37) U/L ALT 70 H (0-40) U/L Alkaline Phosphatase 85 (39-117) U/L Total Creatine Kinase (38-174) U/L Troponin I High Sens 3.7 (<3.5-35.0) ng/L Total Protein 7.5 (6.5-8.0) g/dL Albumin 4.3 (3.5-5.0) g/dL Hold Yellow Top See Note Urine Color Dark Yellow Urine Appearance Clear Urine pH 5.0 (5.0-9.0) Ur Specific [place] 1.020 (1.005-1.025) Urine Protein Negative (Neg-Trace) mg/dL Urine Glucose (UA) Negative (Negative) mg/dL Urine Ketones Negative (Negative) mg/dL Urine Blood Negative (Negative) Urine Nitrite Negative (Negative) Ur Leukocyte Esterase Negative (Negative) Phenobarbital (10.0-40.0) mcg/mL Ethyl Alcohol mg/dL 11/01/24 11/01/24 11/01/24 Range/Units 12:46 13:15 15:44 WBC (4.8-10.8) X10*3/uL RBC (4.60-5.80) X10*6/uL Hgb (14.0-18.0) g/dl Hct (42.0-52.0) % MCV (80.0-98.0) fL MCH (27.0-33.0) pg MCHC (31.0-36.0) g/dl RDW (11.0-16.0) % Plt Count (160-400) X10*3/uL MPV (9.4-12.4) fL Immature Gran % (Auto) (0.0-0.4) % Neut % (Auto) (45-73) % Lymph % (Auto) (20-40) % [place] % (Auto) (2-11) % Eos % (Auto) (0-4) % Baso % (Auto) (0-2) % Lymph # (Auto) (1.2-4.9) X10*3/uL [place] # (Auto) (0.1-1.2) X10*3/uL Eos # (Auto) (0.0-0.4) X10*3/uL Baso # (Auto) (0.0-0.2) X10*3/uL Abs Immat Gran (auto) (0.00-0.03) X10*3/uL Absolute Neuts (auto) (2.0-8.3) x10*3/uL Absolute Nucleated RBC (0.0-0.012) X10*3/uL Nucleated RBC % (auto) (0.0-0.2) /100WBC Sodium (135-145) mmol/L Potassium (3.3-5.1) mmol/L Chloride (96-108) mmol/L Carbon Dioxide (22-29) mmol/L Anion Gap (12-20) BUN (9-16) mg/dL Creatinine (0.5-1.4) mg/dL Estim Creat Clear Calc Estimated GFR Random Glucose (60-115) mg/dL Lactic Acid 2.4 H* (0.5-2.0) mmol/L Lactic Acid F/U @ 2Hr 1.2 (0.5-2.0) mmol/L Calcium (8.4-10.2) mg/dL Magnesium (1.6-2.6) mg/dL Total Bilirubin (0.0-1.0) mg/dL AST (5-37) U/L ALT (0-40) U/L Alkaline Phosphatase (39-117) U/L Total Creatine Kinase 153 (38-174) U/L Troponin I High Sens (<3.5-35.0) ng/L Total Protein (6.5-8.0) g/dL Albumin (3.5-5.0) g/dL Hold Yellow Top See Note Urine Color Urine Appearance Urine pH (5.0-9.0) Ur Specific [place] (1.005-1.025) Urine Protein (Neg-Trace) mg/dL Urine Glucose (UA) (Negative) mg/dL Urine Ketones (Negative) mg/dL Urine Blood (Negative) Urine Nitrite (Negative) Ur Leukocyte Esterase (Negative) Phenobarbital 6.9 L* (10.0-40.0) mcg/mL Ethyl Alcohol < 10 mg/dL Radiology Impression Discussion of test interpretation with radiology: I have reviewed the radiologist's reading. Radiologist Impression: [place] [address] CT Scan Report Signed Patient: Javier Borrego MR#: [id number] : 1955 Acct:[id number] Age/Sex: 68 / M ADM Date: 11/01/24 Loc: .ED Attending Dr: Ordering Physician: Joyce Andersen Date of Service: 11/01/24 Procedure(s): CT head/brain wo IV con Accession Number(s): [id number] cc: ELIZABET ROBINS SOFTWARE REVERSE ENGINEER; Joyce Andersen~ Report Number: [id number]: Total DLP = 813.00 mGy-cm EXAMINATION: CT HEAD WITHOUT CONTRAST CLINICAL INFORMATION: Seizure COMPARISON: CT brain 04/19/2024 TECHNIQUE: Contiguous axial imaging was performed from the skull base to vertex without intravenous administration of contrast. This CT examination was performed using dose optimization techniques as appropriate, variously including the following: *Automated exposure control *Adjustment of mA and/or kV according to patient size (this includes techniques or standardized protocols for targeted exams where dose is matched to indication/reason for exam; i.e. extremities or head) *Use of iterative reconstruction technique DLP 1433 FINDINGS: There is no acute intra-axial, extra-axial bleed, masses or midline shift. There is no acute infarction evolution. There is no edema. The ortiz to white matter differentiation is maintained normal. The lateral ventricles are symmetrical in size and configuration without enlargement. No abnormality seen in the posterior fossa. Bone windows reveal mucoperiosteal thickening of bilateral maxillary sinuses. Rest of the paranasal sinuses are well-aerated. There is no scalp soft tissue abnormality. CT/CT head/brain wo IV con IMPRESSION: No acute intracranial process seen. Chronic bilateral maxillary sinus inflammatory changes. Electronically signed by: Kiran Em MD 11/01/2024 01:46 PM [facility] Dictated By: Kiran Em MD [place] [address] CT Scan Report Signed Patient: Javier Borrego MR#: [id number] : 1955 Acct:[id number] Age/Sex: 68 / M ADM Date: 11/01/24 Loc: HO.ED Attending Dr: Ordering Physician: Joyce Andersen Date of Service: 11/01/24 Procedure(s): CT cervical spine wo IV con Accession Number(s): [id number] cc: ELIZABET ROBINS NP; Joyce Andersen~ Report Number: [id number]: Total DLP = 610.00 mGy-cm EXAMINATION: CT CERVICAL SPINE WITHOUT CONTRAST CLINICAL INFORMATION: Seizure COMPARISON: None available. TECHNIQUE: Axial 3 mm thin and reformatted 2 mm thin sagittal and coronal images of cervical spine were obtained without contrast. DLP [address] examination was performed using dose optimization techniques as appropriate, variously including the following: *Automated exposure control *Adjustment of mA and/or kV according to patient size (this includes techniques or standardized protocols for targeted exams where dose is matched to indication/reason for exam; i.e. extremities or head) *Use of iterative reconstruction technique FINDINGS: On sagittal reconstructed images there is maintained cervical lordosis. There is loss of C3-4 disc height. Rest of the disc heights, vertebral heights and alignment is normal. This C2-3 disc level appears unremarkable. At C3-4 disc level there is posterior bulge/osteophyte complex effacing the ventral thecal sac. There is mild narrowing of bilateral neural foramina from uncovertebral hypertrophic changes. At C4-5 disc level there is no significant disc bulge, herniation or spinal canal stenosis. The neural foramina are patent bilaterally. At C5-6 disc level there is no significant disc bulge, herniation or spinal canal stenosis. Mild narrowing of left neural foramina from uncovertebral hypertrophic change is noted. The right neural foramina is patent. At C6-7 disc level there is no disc significant disc bulge, herniation or spinal stenosis. The neural foramina are patent bilaterally. The C7-T1 disc level appears unremarkable. There is mild right facet joint hypertrophy noted The craniovertebral junction and C1-C2 alignment is normal. No abnormal bone marrow signal seen. The the paravertebral soft tissues are normal. CT/CT cervical spine wo IV con IMPRESSION: Disc bulge/osteophyte complex C3-4, C4-5 disc levels without spinal canal stenosis. There is mild narrowing of neural foramina bilaterally at C3-4 on the left at C4-5, C5-6 disc level No fracture or abnormal bone marrow signal seen. Fleischner guidelines were followed. Electronically signed by: Kiran Em MD 11/01/2024 01:58 PM [facility] Dictated By: Kiran Em MD, Rafael??68??M??1955 ? Allergy/Adv: fentanyl, fluconazole, fosphenytoin, levofloxacin, oxycodone, divalproex sodium, Iodinated Contrast Media, [hydrocodone], [percocet], [oxycodone] (More??) Close Head CT (Signed) Kiran Em - 11/01/[address] (Signed) Maria Antonia,Kiran - 11/01/24 Abdomen/Pelvis CT (Signed) Dusty Ernandez - 11/01/[address] (Signed) Dusty Ernandez - 11/01/24 Chest X-Ray (Signed) Dusty Ernandez - 11/01/24 Renal Ultrasound (Signed) Lisa Curry - 08/23/24 Carotid Doppler Study (Signed) Phyllis Emnal - 04/19/[address] (Signed) Clarence Soriano - 04/19/24 Chest X-Ray (Signed) Lázaro Zamarripa - 03/21/24 Renal Ultrasound (Signed) Ernie Kim - 02/16/24 KUB X-Ray (Signed) Carolina Tejada - 01/06/24 Renal Ultrasound (Signed) Maryana Salmeron - 11/12/23 KUB X-Ray (Signed) Karen Law - 10/12/23 KUB X-Ray (Signed) Eren Barrios - 09/02/23 Abdomen/Pelvis CT (Signed) Fabian Constantino - 08/24/23 [place] Ultrasound (Signed) Martínez Hogue - 08/16/23 [place] Ultrasound (Signed) Martínez Hogue - 08/16/23 Abdomen/Pelvis CT (Signed) Maria Antonia,Kiran - 08/11/23 Chest X-Ray (Signed) Ronald Daniels - 07/05/23 Chest X-Ray (Signed) Elijah Nichols - 08/29/20 Launch?Image [place] [address] CT Scan Report Signed Patient: Javier Borrego MR#: [id number] : 1955 Acct:[id number] Age/Sex: 68 / M ADM Date: 11/01/24 Loc: .ED Attending Dr: Ordering Physician: Joyce Andersen Date of Service: 11/01/24 Procedure(s): CT abdomen pelvis wo IV con Accession Number(s): [id number] cc: ELIZABET ROBINS SOFTWARE REVERSE ENGINEER; Joyce Andersen~ Report Number: [id number]: Total DLP = 694.00 mGy-cm EXAMINATION: CT ABDOMEN AND PELVIS WITHOUT CONTRAST CLINICAL INFORMATION: Right flank pain. COMPARISON: CT dated August 24, 2023. TECHNIQUE: Multidetector volumetric imaging was performed from the superior aspect of the liver through the pubic symphysis. Sagittal and coronal reformatted images were obtained on the technologist's workstation. This CT examination was performed using dose optimization techniques as appropriate, variously including the following: *Automated exposure control *Adjustment of mA and/or kV according to patient size (this includes techniques or standardized protocols for targeted exams where dose is matched to indication/reason for exam; i.e. extremities or head) *Use of iterative reconstruction technique. DLP: 694 mGy centimeter FINDINGS: Limited evaluation of the intra-abdominal organs and vascular structures due to lack of IV contrast. LUNG BASES: Pulmonary patchy and linear groundglass. Calcified plaques in the coronary arteries and descending thoracic aorta. LIVER, GALLBLADDER, AND BILIARY TREE: Liver measures 21 cm. Decreased attenuation of the parenchyma. No pericholecystic fluid collection or gallbladder wall thickening. Gallbladder is nondistended. No intrahepatic or extrahepatic biliary ductal dilatation. PANCREAS: No peripancreatic fluid collections. No main pancreatic ductal dilatation. SPLEEN: 11 cm. ADRENAL GLANDS: No nodular lesions. KIDNEYS AND URETERS: Right kidney: No hydronephrosis. Subtle 1 mm calcification in the lower pole of the pelvicalyceal system. Nonspecific perinephric edema pattern. Left kidney: Multiple scattered less than 2 mm calculi throughout the pelvicalyceal system. No hydronephrosis. Nonspecific perinephric edema pattern. BLADDER: Fluid-filled nearly collapsed. GASTROINTESTINAL TRACT: Appendix is normal. Abundant stool within the large intestine. Scattered diverticula throughout the left hemicolon. No intestinal obstruction pattern. Gas and fluid-filled small bowel loops. No pneumoperitoneum. No ascites. No pneumatosis intestinalis. ABDOMINAL WALL: Small fat-containing umbilical hernia. Diastases abdominal rectus muscles in the periumbilical region. Scarring likely related to an infraumbilical midline laparotomy. LYMPH NODES: Nonspecific prominent lymph nodes, mesenteric and retroperitoneum. VASCULAR: Mixed plaques throughout the abdominal aorta wall and iliac arteries. No aneurysm, abdominal aorta. Desiccation seen in the mid splenic artery. Calcifications at the origin of the right main renal artery and the celiac trunk and superior mesenteric artery. PELVIC VISCERA: Inadequate evaluation. OSSEOUS STRUCTURES: Spina bifida occulta, S1. Sclerosis and the sacroiliac joints. Multilevel thoracolumbar spondylosis Degenerative changes in the coxofemoral joints and sacroiliac joints. CT/CT abdomen pelvis wo IV con IMPRESSION: Bilateral nonobstructing nephrolithiasis. Small fat-containing umbilical hernia and diastases abdominal rectus muscles. Diverticular disease, left hemicolon. Hepatomegaly and hepatic steatosis. Coronary artery disease and atherosclerosis disease. Fleischner guidelines were followed. Electronically signed by: Dusty Bowens MD 11/01/2024 12:25 PM [facility] [place] Dictated By: Dusty Ernandez MD Signed By: <Electronically signed by Dusty Mcintosh MD in OV> Report Number: [id number]: Total DLP = 325.00 mGy-cm EXAMINATION: CT CHEST WITHOUT CONTRAST CLINICAL INFORMATION: Hemoptysis. Recent pneumonia. Right flank pain. COMPARISON: None available. TECHNIQUE: Multidetector volumetric CT imaging of the chest was done. Axial MIP volume rendering provided. Sagittal and coronal reformatted images were obtained. This CT examination was performed using dose optimization techniques as appropriate, variously including the following: *Automated exposure control *Adjustment of mA and/or kV according to patient size (this includes techniques or standardized protocols for targeted exams where dose is matched to indication/reason for exam; i.e. extremities or head) *Use of iterative reconstruction technique DLP: 325 mGy centimeter. FINDINGS: Multifocal patchy pulmonary groundglass involving mostly the peripheral lower lung lobes and lingula. Paraseptal emphysematous changes, upper lungs. No bronchiectasis. No honeycombing. No pleural effusion. No pneumothorax. No pericardial effusion. Respiratory airways patent. No gross lymphadenopathy, mediastinum or axillary. Calcified plaques throughout the thoracic aortic wall and its main branches and the coronary arteries. No aneurysm, thoracic aorta. The origin of the left vertebral artery is directly from the aortic arch between the left CCA and the left subclavian artery. No dominant nodules in the thyroid gland. Multilevel spondylosis in the axial skeleton without acute fracture or gross listhesis. No gross lytic or blastic lesions. CT/CT chest wo IV con IMPRESSION: Probable atelectasis, lung bases. Coronary artery disease and atherosclerosis disease. Paraseptal emphysematous changes, both lung apices. Fleischner guidelines were followed. Electronically signed by: Dusty Bowens MD 11/01/2024 12:32 PM EST Dictated By: Dusty Ernandez MD Signed By: <Electronically signed by Dusty Mcintosh MD in OV> 11/01/24 1232 External Record Review External record reviewed: Inpatient record, Office record, Outpatient record, Prior outpatient labs, Prior outpatient radiology, Primary care record and Outside ED record Critical Care Time Critical Care Time Critical Care Time: Yes Total Critical Care Time: 45 Attestation: I have personally provided critical care time exclusive of time spent on separately billable procedures. Time includes review of lab data, radiology results, discussion with consultants, and monitoring for potential decompensation. Intervention performed as documented. Discharge Plan Discharge Clinical Impression: Seizure disorder, Back pain
[2024-11-01] MEDS: Morphine Sulfate Immed Release 15 MG TABLET PO (10:51)
[2024-11-01 11:07] LABS: Appearance Urine Clear; Color Urine Dark Yellow; Glucose Urine UA Negative (Negative); Leukocyte Esterase Urine Negative (Negative); Nitrite Urine Negative (Negative); Urine Blood Negative (Negative); Urine Ketones Negative (Negative); Urine Protein Negative (Neg-Trace)
[2024-11-01 11:37] LABS: Troponin-I High Sensitivity 3.7 ng/L (<3.5-35.0)
--- NOTE | 2024-11-01 11:39 | ECG_ITS ---
Test Reason : cp Blood Pressure : */* mmHG Vent. Rate : 93 BPM Atrial Rate : 93 BPM P-R Int : 170 ms QRS Dur : 84 ms QT Int : 328 ms P-R-T Axes : 41 2 42 degrees QTcB Int : 407 ms Normal sinus rhythm Normal ECG When compared with ECG of 26-Jun-2024 09:38, No significant change was found Referred By: Joyce Andersen Electronically Signed By: Niels Riley
--- NOTE | 2024-11-01 11:43 | MHC.EDTECH ---
Susanna in obtaining EKG due to patient being at CT Scan.
[2024-11-01] MEDS: LORazepam 2 MG/ML VIAL IM (12:11)
--- NOTE | 2024-11-01 12:31 | MHC.EDTECH ---
During EKG, patient responding/speaking to me appropriately. He asked if I could let his provider know that he had a very bad headache. I asked when his headache had started and patient responded back that I went to the bathroom and blew my nose and my head started to hurt bad. After EKG completed, this tech disconnected the patient and removed the leads, asking patient if he would like me to lift his head back up. Patient did not respond, eyes clothes, unlabored breathing. I asked, again, if he would like me to lift the head of the bed back up. Patient did not respond. I raised head of bed and touched patients arm and received no response. I turned to walk to the door and call for assistance and heard loud banging. I turned back and saw what appeared to be patient having a seizure, I returned to bed side to lower back of bed and called for assistance.
[2024-11-01] MEDS: LORazepam 2 MG/ML VIAL IVPUSH (12:38)
--- NOTE | 2024-11-01 12:39 | PC.NURSE ---
Pt was getting EKG done by advanced manufacturing technician, this nurse was charting, advanced manufacturing technician yelled for help, PT had was having a seizure episode, Provider at bedside, after episode pt was AX04 and was complaining of 10 out of 10 pain pt has hx of Seizures and pt takes Phenobarbital twice a day family at bedside stated he takes it in the morning and evening, family at bedside pt took it this morning. PT placed on monitor post seizure vs BP 135/88, HR 95, Resp 13 O2 100%on RA.
--- NOTE | 2024-11-01 12:48 | PC.NURSE ---
PT's taking his clothing, cell phone and wallet home.
[2024-11-01 12:59] LABS: Magnesium 2.1 mg/dL (1.6-2.6)
--- NOTE | 2024-11-01 13:02 | PC.NURSE ---
Pt to CT.
--- NOTE | 2024-11-01 13:18 | PC.NURSE ---
[place] [facility] [place] during an E[place]. Pt arrives, alert to voice. Pt given IM ativan upon arrival due to lack of IV access. Pt's at bedside reports pt has seizures when he's in pain or gets an IV. This RN attempted US guided IV, pt saying ow then sat himself up, starting grunting/snorting and spitting up ( telling pt to calm down). Then then pt threw his body and arms back with flailing noted. IV established, 2mg IV ativan given.
[2024-11-01 13:31] LABS: Ethanol < 10 mg/dL
--- NOTE | 2024-11-01 13:52 | PC.NURSE ---
Pt resting comfortably on stretcher with respirations equal/unlabored.
[2024-11-01 13:54] LABS: Lactic Acid 2.4 mmol/L (0.5-2.0)
--- NOTE | 2024-11-01 14:49 | P.HPHOSP_ITS ---
History of Present Illness Date of Service: 11/01/24 Chief Complaint: seizure 68-year-old male with history of hypertension, hyperlipidemia, BPH, Schizoaffective d/o, history of Pseudoseizures, diagnosed diabetes mellitus presented to the ED with initial complaint of right sided flank pain since this morning and reportedly had some blood in the urine and difficulty voiding. While in ED reportedly had 2 seizures and her phenobarbital level is low. Given ativan, and Phenobarbital Past Medical History/Problem List (From [facility] RECORD) Abdominal pain, chronic, left lower quadrant BPH (benign prostatic hyperplasia) Tobacco dependence Diverticulosis of colon External hemorrhoid History of colonic diverticulitis History of herpes zoster History of prostatitis Nephrolithiasis Post traumatic stress disorder (PTSD) [place]ose[place]ures - suspected[place] [facility] [place] Schizoaffective disorder History of left upper extremity DVT History of suicidal ideation History of traumatic brain injury with subsequent seizure 1976 Moderate?Severe ANASTASIA, recommended auto CPAP 8?20 per last sleep study Dyslipidemia Hypertension Newly diagnosed type 2 diabetes mellitus?(4 days ago) ? Past Surgical History Removal stent right ureter: 01/20/13 Cystoscopy with lithotripsy, stent placement, right ureter? Appendectomy Polypectomy Right elbow surgery PMFSH Medical History Sleep apnea Asthma DMII (diabetes mellitus, type 2) GERD (gastroesophageal reflux disease) Diverticulitis PTSD (post-traumatic stress disorder) Seizures Hypertension Surgical History Hx of lithotripsy Hx of elbow surgery Hx of appendectomy Hx of umbilical hernia repair Hx of laparoscopy Social History Unable to assess alcohol history related to: Unknown Alcohol intake: never Patient Tobacco Use Status: Former Tobacco user Smoked in Last 30 Days: No Patient Interested in Nicotine Replacement: No Patient Given Instructions on How to Stop Smoking: No Second Hand Smoke Exposure: No Use of substances other than those prescribed or required for medical reasons: Unknown Substance Use Type: Marijuana Advance Directives: No Advance Directives Information Provided: Yes Advance Directives on File: No Nutrition Risks: No Nutritional Risk service: Yes Meds Allergies Allergy/AdvReac Type Severity Reaction Status Date / Time fentanyl [FENTANYL] Allergy Severe CARDIAC Verified 11/01/24 11:19 ARREST fluconazole [From DIFLUCAN] Allergy Severe Hives Verified 11/01/24 11:19 fosphenytoin [FOSPHENYTOIN] Allergy Severe Hives Verified 11/01/24 11:19 levofloxacin [From LEVAQUIN] Allergy Severe Hives Verified 11/01/24 11:19 oxycodone [From PERCOCET] Allergy Severe Hives Verified 11/01/24 11:19 divalproex sodium Allergy Unknown Itching Verified 11/01/24 11:19 [From DEPAKOTE] Iodinated Contrast Media Allergy Anaphylaxis Verified 11/01/24 11:21 [IV Contrast Dye] hydrocodone Allergy Severe Hives Uncoded 11/01/24 11:19 percocet Allergy Severe Unknown Uncoded 11/01/24 11:19 oxycodone Allergy Unknown Unknown Uncoded 11/01/24 11:19 Home Medications ?Medication ?Instructions ?Recorded ?Confirmed ?Last Taken ?Type metformin 500 mg tablet 1,000 mg PO BID 09/02/23 11/01/24 Unknown History amlodipine 5 mg tablet 5 mg PO DAILY 11/01/24 11/01/24 Unknown History atorvastatin 80 mg tablet 80 mg PO BEDTIME 11/01/24 11/01/24 Unknown History ipratropium 0.5 mg-albuterol 3 mg 3 ml inhalation Q4H PRN Shortness 11/01/24 11/01/24 Unknown History (2.5 mg base)/3 mL nebulization Of Breath Or Wheezing soln ketotifen fumarate 0.025 % (0.035 1 drp ophthalmic (eye) BID PRN 11/01/24 11/01/24 Unknown History %) eye drops Allergic Conjuctivitis levocetirizine 5 mg tablet 5 mg PO QPM 11/01/24 11/01/24 Unknown History metronidazole 0.75 % topical gel 1 appl topical BID 11/01/24 11/01/24 Unknown History ondansetron 4 mg disintegrating 4 mg PO Q8H PRN nausea and vomiting 11/01/24 11/01/24 Unknown History tablet peg 400-propylene glycol 0.4 %-0.3 1 drp ophthalmic (eye) QID PRN Dry 11/01/24 11/01/24 Unknown History % eye drops Eyes phenobarbital 32.4 mg tablet 32.4 mg PO BID 11/01/24 11/01/24 Unknown History sildenafil 25 mg tablet 25 mg PO DAILY PRN Sexual Activity 11/01/24 11/01/24 Unknown History Physical Exam 2 Vital Signs and Narrative: Vital Signs: Last Vital Signs Temp 98.1 F 11/01/24 07:54 Pulse 83 11/01/24 14:26 Resp 15 11/01/24 14:26 BP 103/72 11/01/24 14:26 Pulse Ox 95 11/01/24 14:26 O2 Del Method Nasal Cannula 11/01/24 14:26 O2 Flow Rate 2 11/01/24 14:26 BMI result Body Mass Index 33.9 Const: Other: Constitutional: Alert, in no distress Mental Status: Oriented to person, place and time. Eyes: Pupils are equal, round and reactive to light. Ear, Nose and Throat: Oropharynx clear, mucous membranes moist. Ears and nose without deformities Respiratory: Clear to auscultation. No wheezing, rales or rhonchi. Cardiovascular: S1 S2 regular. No murmurs, rubs or gallops. Gastrointestinal: Abdomen soft, non-tender, non-distended. Normal bowel sounds.? Neurologic: Cranial nerves II-XII grossly intact. No focal neurological deficits. Moves all extremities spontaneously.? Skin: No rashes or lesions.? Musculoskeletal: No cyanosis or clubbing. Psychiatric: Normal mood and affect? Results Labs 11/02/24 09:01 11/02/24 09:01 Labs: Laboratory Results - last 24 hr 11/01/24 11/01/24 11/01/24 08:18 10:59 12:46 MCV 93.6 MCH 31.3 MCHC 33.5 RDW 13.3 Plt Count 215 MPV 9.1 L Immature Gran % (Auto) 0.7 H Neut % (Auto) 63.6 Lymph % (Auto) 27.2 [place] % (Auto) 5.4 Eos % (Auto) 2.8 Baso % (Auto) 0.3 Lymph # (Auto) 2.7 [place] # (Auto) 0.5 Eos # (Auto) 0.3 Baso # (Auto) 0.0 Abs Immat Gran (auto) 0.07 H Absolute Neuts (auto) 6.3 Absolute Nucleated RBC 0.000 Nucleated RBC % (auto) 0.0 Anion Gap 15 Estim Creat Clear Calc 77.4 Estimated GFR > 60 Random Glucose 176 H Lactic Acid Calcium 9.1 Magnesium 2.1 Total Bilirubin 0.5 AST 60 H ALT 70 H Alkaline Phosphatase 85 Total Creatine Kinase Troponin I High Sens 3.7 Total Protein 7.5 Albumin 4.3 Hold Yellow Top See Note Urine Color Dark Yellow Urine Appearance Clear Urine pH 5.0 Ur Specific [place] 1.020 Urine Protein Negative Urine Glucose (UA) Negative Urine Ketones Negative Urine Blood Negative Urine Nitrite Negative Ur Leukocyte Esterase Negative Phenobarbital Ethyl Alcohol 11/01/24 11/01/24 12:46 13:15 MCV MCH MCHC RDW Plt Count MPV Immature Gran % (Auto) Neut % (Auto) Lymph % (Auto) [place] % (Auto) Eos % (Auto) Baso % (Auto) Lymph # (Auto) [place] # (Auto) Eos # (Auto) Baso # (Auto) Abs Immat Gran (auto) Absolute Neuts (auto) Absolute Nucleated RBC Nucleated RBC % (auto) Anion Gap Estim Creat Clear Calc Estimated GFR Random Glucose Lactic Acid 2.4 H* Calcium Magnesium Total Bilirubin AST ALT Alkaline Phosphatase Total Creatine Kinase 153 Troponin I High Sens Total Protein Albumin Hold Yellow Top See Note Urine Color Urine Appearance Urine pH Ur Specific [place] Urine Protein Urine Glucose (UA) Urine Ketones Urine Blood Urine Nitrite Ur Leukocyte Esterase Phenobarbital 6.9 L* Ethyl Alcohol < 10 Imaging Radiologist's Impressions: Impressions Chest X-Ray 11/01/24 08:20 IMPRESSION: Chronic interstitial lung disease. Superimposed acute inflammatory versus infectious small airway disease should be considered in the correct clinical settings. Electronically signed by: Dusty Bowens MD 11/01/2024 08:34 AM EST RP Chest CT 11/01/24 11:09 IMPRESSION: Probable atelectasis, lung bases. Coronary artery disease and atherosclerosis disease. Paraseptal emphysematous changes, both lung apices. Fleischner guidelines were followed. Electronically signed by: Dusty Bowens MD 11/01/2024 12:32 PM EST RP Abdomen/Pelvis CT 11/01/24 11:40 IMPRESSION: Bilateral nonobstructing nephrolithiasis. Small fat-containing umbilical hernia and diastases abdominal rectus muscles. Diverticular disease, left hemicolon. Hepatomegaly and hepatic steatosis. Coronary artery disease and atherosclerosis disease. Fleischner guidelines were followed. Electronically signed by: Dusty Bowens MD 11/01/2024 12:25 PM EST RP Cervical Spine CT 11/01/24 12:41 IMPRESSION: Disc bulge/osteophyte complex C3-4, C4-5 disc levels without spinal canal stenosis. There is mild narrowing of neural foramina bilaterally at C3-4 on the left at C4-5, C5-6 disc level No fracture or abnormal bone marrow signal seen. Fleischner guidelines were followed. Electronically signed by: Kiran Em MD 11/01/2024 01:58 PM EST RP Head CT 11/01/24 12:56 IMPRESSION: No acute intracranial process seen. Chronic bilateral maxillary sinus inflammatory changes. Electronically signed by: Kiran Em MD 11/01/2024 01:46 PM EST RP Assessment and Plan (1) Breakthrough seizure: Status: Acute Plan 68-year-old male with history of hypertension, hyperlipidemia, BPH, Schizoaffective d/o, history of Pseudoseizures, diagnosed diabetes mellitus presented to the ED with initial complaint of right sided flank pain since this morning and reportedly had some blood in the urine. While in ED reportedly had 2 seizures and her phenobarbital level is low Right flank pain etiology unclear, UA negative, CT non-obstructive stone -symptmatic treatement -urology if persists Seizure/Pseudoseizure -continue Phenobarbital, additional dose give diabetes, -sliding scale insulin HLD-statin dvt prophylaxis--lovenox if no evidence of bleeing Quality Stroke Does the patient have a stroke diagnosis?: No VTE Prior VTE?: No VTE Risk Level:: Medical - moderate - high VTE Device Contraindication: Treatment Not Indicated VTE Drug Contraindication: N/A - Med Ordered
--- NOTE | 2024-11-01 15:00 | PC.NURSE ---
Resource RN at bedside to attempt PIV.
[2024-11-01 15:19] LABS: Reflex Lactate? Lactic Acid Added
[2024-11-01] MEDS: Lidocaine 4 % Patch ADH..PATCH 1 PATCH TRANSDERMA (15:59)
[2024-11-01 16:07] LABS: ~Lactic Acid-LAB USE ONLY 1.2 mmol/L (0.5-2.0)
--- NOTE | 2024-11-01 18:08 | PHA.MEDREC ---
Pharmacy Consult ? Medication Reconciliation Pharmacy has completed the medication reconciliation. Utilized med list from [facility] to complete med rec.
[2024-11-01] MEDS: Acetaminophen 325 MG TABLET 650 MG PO (18:12)
[2024-11-01] MEDS: PHENobarbitaL sodium 130 MG/ML VIAL IVPUSH (18:32)
[2024-11-01] MEDS: Acetaminophen 1,000 MG/100 ML PIGGYBACK 400 MG IV (18:43)
[2024-11-01 19:11] LABS: Glucose, Whole Blood 147 mg/dL (60-115)
[2024-11-01] MEDS: metFORMIN HCl 1,000 MG TABLET 1000 MG PO (21:48)
[2024-11-01] MEDS: Famotidine 20 MG TABLET PO (21:49)
[2024-11-01] MEDS: Atorvastatin Calcium 80 MG TABLET PO (21:49)
[2024-11-01] MEDS: PHENobarbitaL 30 MG TABLET 60 MG PO (21:49)
[2024-11-01] MEDS: Loratadine 10 MG TABLET PO (21:49)
[2024-11-01 22:28] LABS: Glucose, Whole Blood 145 mg/dL (60-115)
[2024-11-02] VITALS (7 sets, daily range): BP systolic 108–132; BP diastolic 73–95; PULSE 67–91; RESP 14–18; TEMP 36.4–36.8; O2SAT 92–98
--- NOTE | 2024-11-02 02:07 | MHC.EDTECH ---
This tech took over care of patient at 0120,rounds and vitals completed,emptied 600MLS from urinal,call harrison in reach
--- NOTE | 2024-11-02 06:00 | MHC.EDTECH ---
Rounds and vitals completed,emptied 450MLS from urinal,(yellow in color) patient is resting quietly,call harrison in reach
[2024-11-02 07:36] LABS: Glucose, Whole Blood 101 mg/dL (60-115)
[2024-11-02] MEDS: Acetaminophen 325 MG TABLET 650 MG PO (08:12)
[2024-11-02] MEDS: amLODIPine Besylate 5 MG TABLET PO (08:13)
[2024-11-02] MEDS: PHENobarbitaL 30 MG TABLET 60 MG PO (08:15)
[2024-11-02] MEDS: metFORMIN HCl 1,000 MG TABLET 1000 MG PO ×2 (08:16→21:27)
[2024-11-02] MEDS: Famotidine 20 MG TABLET PO ×2 (08:16→21:27)
[2024-11-02] MEDS: 0.9 % Sodium Chloride Flush 3 ML SYRINGE IVFLUSH ×2 (08:22→17:04)
[2024-11-02 09:11] LABS: Hematocrit 44.5 % (42.0-52.0); Hemoglobin 14.9 g/dl (14.0-18.0); Mean Corpuscular HGB Conc 33.5 g/dl (31.0-36.0); Mean Corpuscular Hemoglobin 31.2 pg (27.0-33.0); Mean Corpuscular Volume 93.3 fL (80.0-98.0); Mean Platelet Volume 8.6 fL (9.4-12.4); Platelet Count 230 X10*3/uL (160-400); Red Blood Count 4.77 X10*6/uL (4.60-5.80); Red Cell Distribution Width 13.2 % (11.0-16.0); White Blood Count 10.5 X10*3/uL (4.8-10.8)
[2024-11-02 09:31] LABS: Anion Gap 15 (12-20); Blood Urea Nitrogen 12 mg/dL (9-16); Calcium 9.4 mg/dL (8.4-10.2); Carbon Dioxide 24 mmol/L (22-29); Chloride 104 mmol/L (96-108); Creatinine Clr Calc Pharmacy 93.3; Estimated Glomerular Filt Rate > 60; Glucose Random 154 mg/dL (60-115); Potassium 4.5 mmol/L (3.3-5.1); Sodium 138 mmol/L (135-145)
[2024-11-02] MEDS: metroNIDAZOLE 0.75 % Gel 45 GM TUBE 1 APPL TOPICAL ×2 (10:15→21:29)
[2024-11-02] MEDS: HYDROmorphone HCl 2 MG TABLET PO (10:43)
--- NOTE | 2024-11-02 11:33 | MHC.CM.PN ---
CM attempted to see pt. for assessment, was told by ED nursing staff to not enter pt.'s room. Will defer meeting until later.
[2024-11-02 11:43] LABS: Glucose, Whole Blood 146 mg/dL (60-115)
--- NOTE | 2024-11-02 13:26 | MHC.CM.PN ---
Leila 11/02/24, Pt lives with his family, he does not have home care or DME. He is 100% permanently disable . PCP is Bere Rios at [place]. His will transport him home at [place]. DCP: home, self care. CM to follow for DC needs.
--- NOTE | 2024-11-02 16:35 | PM.NEUROCN ---
History of Present Illness Data of Consult Service Date: 11/02/24 Primary Care Provider: Bere Rios NP HPI Reason for consult: Seizures This is a 68-year-old male with history of hypertension, hyperlipidemia, BPH, Schizoaffective d/o, history of Pseudoseizures, recently diagnosed diabetes mellitus presented to the ED with initial complaint of right sided flank pain since this morning and reportedly had some blood in the urine and difficulty voiding. While in ED reportedly had 2 seizures and phenobarbital level is low 6.5. Given ativan, and Phenobarbital with no Sz recurrence PMFSH Past Medical History Medical History Sleep apnea Asthma DMII (diabetes mellitus, type 2) GERD (gastroesophageal reflux disease) Diverticulitis PTSD (post-traumatic stress disorder) Seizures Hypertension Surgical History Surgical History Hx of lithotripsy Hx of elbow surgery Hx of appendectomy Hx of umbilical hernia repair Hx of laparoscopy Social History Social History Unable to assess alcohol history related to: Unknown Alcohol intake: never Patient Tobacco Use Status: Former Tobacco user Smoked in Last 30 Days: No Patient Interested in Nicotine Replacement: No Patient Given Instructions on How to Stop Smoking: No Second Hand Smoke Exposure: No Use of substances other than those prescribed or required for medical reasons: Unknown Substance Use Type: Marijuana Advance Directives: No Advance Directives Information Provided: Yes Advance Directives on File: No Nutrition Risks: No Nutritional Risk service: Yes Meds Allergies Allergy/AdvReac Type Severity Reaction Status Date / Time fentanyl [FENTANYL] Allergy Severe CARDIAC Verified 11/01/24 11:19 ARREST fluconazole [From DIFLUCAN] Allergy Severe Hives Verified 11/01/24 11:19 fosphenytoin [FOSPHENYTOIN] Allergy Severe Hives Verified 11/01/24 11:19 levofloxacin [From LEVAQUIN] Allergy Severe Hives Verified 11/01/24 11:19 oxycodone [From PERCOCET] Allergy Severe Hives Verified 11/01/24 11:19 divalproex sodium Allergy Unknown Itching Verified 11/01/24 11:19 [From DEPAKOTE] Iodinated Contrast Media Allergy Anaphylaxis Verified 11/01/24 11:21 [IV Contrast Dye] hydrocodone Allergy Severe Hives Uncoded 11/01/24 11:19 percocet Allergy Severe Unknown Uncoded 11/01/24 11:19 oxycodone Allergy Unknown Unknown Uncoded 11/01/24 11:19 Active Medications: Current Medications Acetaminophen (Acetaminophen 325 Mg Tablet) 650 mg PO Q6H PRN PRN Reason: Pain, Mild 1-3,fever,headache Last Admin: 11/02/24 08:12 Dose: 650 mg Albuterol Sulfate (Albuterol Sulfate 90 Mcg 8 Gm Inhaler) 2 puff INHALE Q4H PRN PRN Reason: shortness of breath or wheezing Albuterol/Ipratropium (Albuterol/Iprat 2.5/0.5mg 3 Ml Ampul.Neb) 3 ml INHALE Q4H PRN PRN Reason: Shortness Of Breath Or Wheezing Amlodipine Besylate (Amlodipine Besylate 5 Mg Tablet) 5 mg PO DAILY [facility]; Protocol Last Admin: 11/02/24 08:13 Dose: 5 mg Artificial Tears (Artificial Tears 15 Ml Drops) 1 drop EYE-BOTH QID PRN PRN Reason: Dry Eyes Atorvastatin Calcium (Atorvastatin Calcium 80 Mg Tablet) 80 mg PO BEDTIME [facility] Last Admin: 11/01/24 21:49 Dose: 80 mg Calcium Carbonate (Calcium Carbonate 750 Mg Tab.Chew) 750 mg PO Q4H PRN PRN Reason: Heartburn Famotidine (Famotidine 20 Mg Tablet) 20 mg PO BID [facility] Last Admin: 11/02/24 08:16 Dose: 20 mg Glucose (Glucose Gel 15 Gm Gel..Gram.) 15 gm PO Q15M PRN; Protocol PRN Reason: per Hypoglycemia Standing Ord. Hydromorphone HCl (Hydromorphone Hcl 2 Mg Tablet) 2 mg PO Q4H PRN PRN Reason: Pain, Severe (Pain Scale 7-10) Last Admin: 11/02/24 10:43 Dose: 2 mg Dextrose (D10) 250 mls @ 750 mls/hr IV Q15M PRN; Protocol PRN Reason: per Hypoglycemia Standing Ord. Insulin Human Lispro (Insulin Lispro 100 Unit/Ml 3 Ml Vial) 0 unit SUBCUT QIDACHS [facility]; Protocol Last Admin: 11/02/24 13:25 Dose: Not Given Ketotifen Fumarate (Ketotifen Fumarate 0.025% Oph 5 Ml Drpbtl) 1 drop EYE-BOTH BID PRN PRN Reason: Allergic Conjuctivitis Loratadine (Loratadine 10 Mg Tablet) 10 mg PO BEDTIME [facility] Last Admin: 11/01/24 21:49 Dose: 10 mg Magnesium Hydroxide (Milk Of Magnesia 30 Ml Oral.Susp) 30 ml PO DAILY PRN PRN Reason: Constipation Melatonin (Melatonin 3 Mg Tablet) 6 mg PO BEDTIME PRN PRN Reason: Insomnia Metformin HCl (Metformin Hcl 1,000 Mg Tablet) 1,000 mg PO BID [facility] Last Admin: 11/02/24 08:16 Dose: 1,000 mg Metronidazole (Metronidazole 0.75 % Gel 45 Gm Tube) 1 appl TOPICAL BID [facility] Last Admin: 11/02/24 10:15 Dose: 1 appl Morphine Sulfate (Morphine Sulfate 2 Mg/Ml Cartridge) 2 mg IVPUSH Q6H PRN; Protocol PRN Reason: Pain, Severe (Pain Scale 7-10) Ondansetron HCl (Ondansetron Hcl 4 Mg/2 Ml Vial) 4 mg IVPUSH Q8H PRN PRN Reason: Nausea and Vomiting Phenobarbital (Phenobarbital 30 Mg Tablet) 60 mg PO BID [facility] Last Admin: 11/02/24 08:15 Dose: 60 mg Sodium Chloride (0.9 % Sodium Chloride Flush 3 Ml Syringe) 3 ml IVFLUSH QSHIFT [facility] Last Admin: 11/02/24 08:22 Dose: 3 ml Home Medications ?Medication ?Instructions ?Recorded ?Confirmed ?Last Taken ?Type metformin 500 mg tablet 1,000 mg PO BID 09/02/23 11/01/24 Unknown History amlodipine 5 mg tablet 5 mg PO DAILY 11/01/24 11/01/24 Unknown History atorvastatin 80 mg tablet 80 mg PO BEDTIME 11/01/24 11/01/24 Unknown History ipratropium 0.5 mg-albuterol 3 mg 3 ml inhalation Q4H PRN Shortness 11/01/24 11/01/24 Unknown History (2.5 mg base)/3 mL nebulization Of Breath Or Wheezing soln ketotifen fumarate 0.025 % (0.035 1 drp ophthalmic (eye) BID PRN 11/01/24 11/01/24 Unknown History %) eye drops Allergic Conjuctivitis levocetirizine 5 mg tablet 5 mg PO QPM 11/01/24 11/01/24 Unknown History metronidazole 0.75 % topical gel 1 appl topical BID 11/01/24 11/01/24 Unknown History ondansetron 4 mg disintegrating 4 mg PO Q8H PRN nausea and vomiting 11/01/24 11/01/24 Unknown History tablet peg 400-propylene glycol 0.4 %-0.3 1 drp ophthalmic (eye) QID PRN Dry 11/01/24 11/01/24 Unknown History % eye drops Eyes phenobarbital 32.4 mg tablet 32.4 mg PO BID 11/01/24 11/01/24 Unknown History sildenafil 25 mg tablet 25 mg PO DAILY PRN Sexual Activity 11/01/24 11/01/24 Unknown History Physical Exam Vital Signs: Vital Signs: Last Vital Signs Temp 97.5 F 11/02/24 14:57 Pulse 91 11/02/24 14:57 Resp 16 11/02/24 14:57 BP 132/76 11/02/24 14:57 Pulse Ox 92 11/02/24 14:57 O2 Del Method Nasal Cannula 11/02/24 14:57 O2 Flow Rate 3 11/02/24 14:57 BMI result Body Mass Index 33.9 Neuro: Other: Non focal exam Results Labs 11/02/24 09:01 11/02/24 09:01 Labs: Short CBC 11/02/24 Range/Units 09:01 WBC 10.5 (4.8-10.8) X10*3/uL Hgb 14.9 (14.0-18.0) g/dl Hct 44.5 (42.0-52.0) % Plt Count 230 (160-400) X10*3/uL BMP 11/02/24 09:01 Sodium 138 Potassium 4.5 Chloride 104 Carbon Dioxide 24 BUN 12 Creatinine 0.83 Calcium 9.4 Assessment and Plan (1) Breakthrough seizure: Status: Acute CT brain normal. Phenobarb level low Recom: >EEG. Switch to Phenobarb 100mg hs only (2) Seizure disorder: Status: Acute Procedures Date of Service Date of Service: 11/02/24
[2024-11-02] MEDS: ondansetron HCL 4 MG/2 ML VIAL IVPUSH (17:00)
[2024-11-02 17:21] LABS: Glucose, Whole Blood 137 mg/dL (60-115)
--- NOTE | 2024-11-02 17:32 | HO.PM.IMPN ---
Subjective Subjective Date of Service: 11/02/24 Interval History: pt still c/o pain in back and abdomen Physical Exam Vital Signs: Vital Signs: Last Vital Signs Temp 97.5 F 11/02/24 14:57 Pulse 91 11/02/24 14:57 Resp 16 11/02/24 14:57 BP 132/76 11/02/24 14:57 Pulse Ox 92 11/02/24 14:57 O2 Del Method Nasal Cannula 11/02/24 14:57 O2 Flow Rate 3 11/02/24 14:57 BMI result Body Mass Index 33.9 General: AO X 3, no acute distress Resp: CTA bilateral CVS: S1,S2,RRR GI: +BS, NT, no distention Skin: No rash Neuro: motor grossly intact Psych: appropriate affect Const: Other: Constitutional: Alert, in no distress Mental Status: Oriented to person, place and time. Eyes: Pupils are equal, round and reactive to light. Ear, Nose and Throat: Oropharynx clear, mucous membranes moist. Ears and nose without deformities Respiratory: Clear to auscultation. No wheezing, rales or rhonchi. Cardiovascular: S1 S2 regular. No murmurs, rubs or gallops. Gastrointestinal: Abdomen soft, non-tender, non-distended. Normal bowel sounds.? Neurologic: Cranial nerves II-XII grossly intact. No focal neurological deficits. Moves all extremities spontaneously.? Skin: No rashes or lesions.? Musculoskeletal: No cyanosis or clubbing. Psychiatric: Normal mood and affect? Objective Data Active Medications Acetaminophen (Acetaminophen 325 Mg Tablet) 650 mg PO Q6H PRN PRN Reason: Pain, Mild 1-3,fever,headache Last Admin: 11/02/24 08:12 Dose: 650 mg Documented By: LINA Albuterol Sulfate (Albuterol Sulfate 90 Mcg 8 Gm Inhaler) 2 puff INHALE Q4H PRN PRN Reason: shortness of breath or wheezing Albuterol/Ipratropium (Albuterol/Iprat 2.5/0.5mg 3 Ml Ampul.Neb) 3 ml INHALE Q4H PRN PRN Reason: Shortness Of Breath Or Wheezing Amlodipine Besylate (Amlodipine Besylate 5 Mg Tablet) 5 mg PO DAILY [facility]; Protocol Last Admin: 11/02/24 08:13 Dose: 5 mg Documented By: LINA Artificial Tears (Artificial Tears 15 Ml Drops) 1 drop EYE-BOTH QID PRN PRN Reason: Dry Eyes Atorvastatin Calcium (Atorvastatin Calcium 80 Mg Tablet) 80 mg PO BEDTIME [facility] Last Admin: 11/01/24 21:49 Dose: 80 mg Documented By: SADIE Calcium Carbonate (Calcium Carbonate 750 Mg Tab.Chew) 750 mg PO Q4H PRN PRN Reason: Heartburn Famotidine (Famotidine 20 Mg Tablet) 20 mg PO BID [facility] Last Admin: 11/02/24 08:16 Dose: 20 mg Documented By: LINA Glucose (Glucose Gel 15 Gm Gel..Gram.) 15 gm PO Q15M PRN; Protocol PRN Reason: per Hypoglycemia Standing Ord. Hydromorphone HCl (Hydromorphone Hcl 2 Mg Tablet) 2 mg PO Q4H PRN PRN Reason: Pain, Severe (Pain Scale 7-10) Last Admin: 11/02/24 10:43 Dose: 2 mg Documented By: LINA Dextrose (D10) 250 mls @ 750 mls/hr IV Q15M PRN; Protocol PRN Reason: per Hypoglycemia Standing Ord. Insulin Human Lispro (Insulin Lispro 100 Unit/Ml 3 Ml Vial) 0 unit SUBCUT QIDACHS [facility]; Protocol Last Admin: 11/02/24 17:25 Dose: Not Given Documented By: CARIE Non-Admin Reason: No Insulin Coverage Ketotifen Fumarate (Ketotifen Fumarate 0.025% Oph 5 Ml Drpbtl) 1 drop EYE-BOTH BID PRN PRN Reason: Allergic Conjuctivitis Loratadine (Loratadine 10 Mg Tablet) 10 mg PO BEDTIME [facility] Last Admin: 11/01/24 21:49 Dose: 10 mg Documented By: SADIE Magnesium Hydroxide (Milk Of Magnesia 30 Ml Oral.Susp) 30 ml PO DAILY PRN PRN Reason: Constipation Melatonin (Melatonin 3 Mg Tablet) 6 mg PO BEDTIME PRN PRN Reason: Insomnia Metformin HCl (Metformin Hcl 1,000 Mg Tablet) 1,000 mg PO BID [facility] Last Admin: 11/02/24 08:16 Dose: 1,000 mg Documented By: LINA Metronidazole (Metronidazole 0.75 % Gel 45 Gm Tube) 1 appl TOPICAL BID [facility] Last Admin: 11/02/24 10:15 Dose: 1 appl Documented By: LINA Morphine Sulfate (Morphine Sulfate 2 Mg/Ml Cartridge) 2 mg IVPUSH Q6H PRN; Protocol PRN Reason: Pain, Severe (Pain Scale 7-10) Ondansetron HCl (Ondansetron Hcl 4 Mg/2 Ml Vial) 4 mg IVPUSH Q8H PRN PRN Reason: Nausea and Vomiting Last Admin: 11/02/24 17:00 Dose: 4 mg Documented By: CARIE Phenobarbital (Phenobarbital 30 Mg Tablet) 60 mg PO BID [facility] Last Admin: 11/02/24 08:15 Dose: 60 mg Documented By: LINA Sodium Chloride (0.9 % Sodium Chloride Flush 3 Ml Syringe) 3 ml IVFLUSH QSHIFT [facility] Last Admin: 11/02/24 17:04 Dose: 3 ml Documented By: CARIE Labs 11/02/24 09:01 11/02/24 09:01 Labs: Laboratory Results - last 24 hr 11/01/24 11/01/24 11/02/24 18:39 21:43 07:25 MCV MCH MCHC RDW Plt Count MPV Absolute Nucleated RBC Nucleated RBC % (auto) Anion Gap Estim Creat Clear Calc Estimated GFR POC Glucose 147 H 145 H 101 Random Glucose Calcium Phenobarbital 11/02/24 11/02/24 11/02/24 09:00 09:01 11:37 MCV 93.3 MCH 31.2 MCHC 33.5 RDW 13.2 Plt Count 230 MPV 8.6 L Absolute Nucleated RBC 0.000 Nucleated RBC % (auto) 0.0 Anion Gap 15 Estim Creat Clear Calc 93.3 Estimated GFR > 60 POC Glucose 146 H Random Glucose 154 H Calcium 9.4 Phenobarbital 10.3 11/02/24 17:05 MCV MCH MCHC RDW Plt Count MPV Absolute Nucleated RBC Nucleated RBC % (auto) Anion Gap Estim Creat Clear Calc Estimated GFR POC Glucose 137 H Random Glucose Calcium Phenobarbital Assessment and Plan (1) Breakthrough seizure: Status: Acute Assessment and Plan: CT brain normal. Phenobarb level low Recom: >EEG. Switch to Phenobarb 100mg hs only Plan 68-year-old male with history of hypertension, hyperlipidemia, BPH, Schizoaffective d/o, history of Pseudoseizures, diagnosed diabetes mellitus presented to the ED with initial complaint of right sided flank pain since this morning and reportedly had some blood in the urine. While in ED reportedly had 2 seizures and her phenobarbital level is low Right flank pain etiology unclear, UA negative, CT non-obstructive stone -no hematuria -symptmatic treatement -urology if persists Seizure/Pseudoseizure -Neuro recommends phenobarbital 100 mg at bedtime diabetes, -sliding scale insulin HLD-statin dvt prophylaxis--lovenox if no evidence of bleeing Quality Stroke Does the patient have a stroke diagnosis?: No VTE Prior VTE?: No VTE Risk Level:: Medical - moderate - high VTE Device Contraindication: N/A - Device Ordered VTE Drug Contraindication: N/A - Med Ordered
[2024-11-02 20:19] LABS: Glucose, Whole Blood 137 mg/dL (60-115)
[2024-11-02] MEDS: Atorvastatin Calcium 80 MG TABLET PO (21:27)
[2024-11-02] MEDS: Loratadine 10 MG TABLET PO (21:27)
[2024-11-02] MEDS: Melatonin 3 MG TABLET 6 MG PO (21:28)
[2024-11-02] MEDS: Morphine Sulfate 2 MG/ML CARTRIDGE IVPUSH (21:29)
[2024-11-03] VITALS (8 sets, daily range): BP systolic 112–148; BP diastolic 70–89; PULSE 74–100; RESP 16–20; TEMP 36–36.9; O2SAT 92–97; BMI 34.7
--- NOTE | 2024-11-03 | EEG_ITS ---
This is a 16-channel EEG with an EKG lead. The patient is reported awake and drowsy during the tracing. Background EEG rhythm is low amplitude fast with no obvious asymmetry or paroxysmal tendency. Photic stimulation does not produce any significant abnormality. Hyperventilation is not performed. Cardiac lead does not reveal any significant abnormality. No sharp wave spikes or paroxysmal tendency noted. IMPRESSION: Unremarkable EEG. MD AKOSUA Nixon/LARRY / [phone]
[2024-11-03] MEDS: 0.9 % Sodium Chloride Flush 3 ML SYRINGE IVFLUSH ×3 (00:21→14:36)
[2024-11-03] MEDS: Acetaminophen 325 MG TABLET 650 MG PO ×3 (00:28→14:40)
[2024-11-03] MEDS: Morphine Sulfate 2 MG/ML CARTRIDGE IVPUSH ×4 (03:53→19:20)
[2024-11-03 04:05] LABS: Appearance Urine Clear; Color Urine Yellow; Glucose Urine UA Negative (Negative); Leukocyte Esterase Urine Negative (Negative); Nitrite Urine Negative (Negative); PH 5.5 (5.0-9.0); Specific Gravity - Urine 1.015 (1.005-1.025); Urine Blood Negative (Negative); Urine Ketones Negative (Negative); Urine Protein Negative (Neg-Trace)
[2024-11-03 04:10] LABS: Bacteria Urine None Seen (None Seen); Hyaline Casts Urine 0-2 /LPF (0-2); RBC Urine 0-2 /HPF (0-2); Squamous Epithelial Cell Urine 0-2 /HPF (0-2); WBC Urine 0-5 /HPF (0-5)
[2024-11-03] MEDS: ondansetron HCL 4 MG/2 ML VIAL IVPUSH ×2 (04:35→14:36)
[2024-11-03 04:38] LABS: Glucose, Whole Blood 99 mg/dL (60-115)
--- NOTE | 2024-11-03 04:42 | PM.EVENT ---
Event Note Date of Service: 11/03/24 Event Note: Rapid response was called for a possible episode of seizure. As per the nurse, patient was complaining of nausea. She went out to get IV Zofran and subsequently patient was seen with head laid back, eyes closed and minimal jerking of extremities. Unclear if there was rolling of eyes. No tongue bite, urinary or bowel incontinence. Upon my arrival, patient without any jerking movement of extremities. His eyes were closed and he woke up within a minute. No confusion. Complaining of right flank pain radiating to the groin. Was teary-eyed due to the pain. Also complaining of nausea. Will order EEG as per Neurology recommendations Time Spent With Patient Time: Total time managing care of this patient today ____ minutes.
--- NOTE | 2024-11-03 04:43 | HE.NUR.EV ---
Status Change: Pt vomiting, fell back onto bed unresponsive, seizure like activity noted Immediate Actions Taken: Rapid response called, MD, RT, Nursing Cryptologic Supervisor, bedside Notifications: MD came bedside to eval pt Further Monitoring and Treatment: MD to order meds, waiting orders, zofran administered
--- NOTE | 2024-11-03 04:45 | PC.NURSE ---
GRILL ATTENDANT called d/t pt having seizure like activity after asking for zofran d/t feeling nauseous. This RN went to get zofran, CERTIFIED COATINGS INSPECTOR then called for help d/t pt falling back onto his bed, unresponsive. GRILL ATTENDANT called. , RT, RN painter supervisor, other RNs came bedside. temporal temp 97.5f, HR 86, BP 151/95 O2 95% on room air, rr 16, POC 99. Pt eventually came to, emotional, stating he was having a lot of pain in his right flank and groin and he wanted to go home. stated he would order some meds for pt's pain; awaiting these orders. Pt currently awake and AOx3. Call harrison within reach, bed alarm on, camera in room to monitor pt for seizures.
[2024-11-03 07:56] LABS: Glucose, Whole Blood 98 mg/dL (60-115)
[2024-11-03] MEDS: metFORMIN HCl 1,000 MG TABLET 1000 MG PO ×2 (08:55→20:23)
[2024-11-03] MEDS: Famotidine 20 MG TABLET PO ×2 (08:55→20:23)
[2024-11-03] MEDS: amLODIPine Besylate 5 MG TABLET PO (08:55)
[2024-11-03 12:46] LABS: Glucose, Whole Blood 122 mg/dL (60-115)
--- NOTE | 2024-11-03 13:33 | PM.UROCN ---
FORMERLY [facility], 1928–1983 Past Medical History Medical History Sleep apnea Asthma DMII (diabetes mellitus, type 2) GERD (gastroesophageal reflux disease) Diverticulitis PTSD (post-traumatic stress disorder) Seizures Hypertension Surgical History Surgical History Hx of lithotripsy Hx of elbow surgery Hx of appendectomy Hx of umbilical hernia repair Hx of laparoscopy Social History Social History Household Members: Spouse Housing: House Unable to assess alcohol history related to: Unknown Alcohol intake: never Patient Tobacco Use Status: Former Tobacco user Smoked in Last 30 Days: No Patient Interested in Nicotine Replacement: No Patient Given Instructions on How to Stop Smoking: No Second Hand Smoke Exposure: No Use of substances other than those prescribed or required for medical reasons: Yes Substance Use Type: Other Substance Use Type Other:: THC drops Currently Displaying Signs/Symptoms of Drug Intoxication Withdrawal: No Any prior treatment program specific to substance use: No Have you been hit, kicked, punched, or otherwise hurt by someone within the past year? If so, by whom?: No Do you feel safe in your current relationship?: Yes Is there a partner from a previous relationship who is making you feel unsafe now?: No Advance Directives: No Advance Directives Information Provided: Yes Advance Directives on File: No Do you have a plan to hurt others: No Plan Recently lost weight without trying: No Eating poorly because of decreased appetite: No Nutrition Risks: No Nutritional Risk Poor oral hygiene: No service: Yes Meds Allergies Allergy/AdvReac Type Severity Reaction Status Date / Time fentanyl [FENTANYL] Allergy Severe CARDIAC Verified 11/01/24 11:19 ARREST fluconazole [From DIFLUCAN] Allergy Severe Hives Verified 11/01/24 11:19 fosphenytoin [FOSPHENYTOIN] Allergy Severe Hives Verified 11/01/24 11:19 levofloxacin [From LEVAQUIN] Allergy Severe Hives Verified 11/01/24 11:19 oxycodone [From PERCOCET] Allergy Severe Hives Verified 11/01/24 11:19 divalproex sodium Allergy Unknown Itching Verified 11/01/24 11:19 [From DEPAKOTE] hydromorphone [From Dilaudid] Allergy Hives Verified 11/02/24 18:48 Iodinated Contrast Media Allergy Anaphylaxis Verified 11/01/24 11:21 [IV Contrast Dye] hydrocodone Allergy Severe Hives Uncoded 11/01/24 11:19 percocet Allergy Severe Unknown Uncoded 11/01/24 11:19 oxycodone Allergy Unknown Unknown Uncoded 11/01/24 11:19 Active Medications: Current Medications Acetaminophen (Acetaminophen 325 Mg Tablet) 650 mg PO Q6H PRN PRN Reason: Pain, Mild 1-3,fever,headache Last Admin: 11/03/24 09:06 Dose: 650 mg Albuterol Sulfate (Albuterol Sulfate 90 Mcg 8 Gm Inhaler) 2 puff INHALE Q4H PRN PRN Reason: shortness of breath or wheezing Albuterol/Ipratropium (Albuterol/Iprat 2.5/0.5mg 3 Ml Ampul.Neb) 3 ml INHALE Q4H PRN PRN Reason: Shortness Of Breath Or Wheezing Amlodipine Besylate (Amlodipine Besylate 5 Mg Tablet) 5 mg PO DAILY [facility]; Protocol Last Admin: 11/03/24 08:55 Dose: 5 mg Artificial Tears (Artificial Tears 15 Ml Drops) 1 drop EYE-BOTH QID PRN PRN Reason: Dry Eyes Atorvastatin Calcium (Atorvastatin Calcium 80 Mg Tablet) 80 mg PO BEDTIME [facility] Last Admin: 11/02/24 21:27 Dose: 80 mg Calcium Carbonate (Calcium Carbonate 750 Mg Tab.Chew) 750 mg PO Q4H PRN PRN Reason: Heartburn Famotidine (Famotidine 20 Mg Tablet) 20 mg PO BID [facility] Last Admin: 11/03/24 08:55 Dose: 20 mg Glucose (Glucose Gel 15 Gm Gel..Gram.) 15 gm PO Q15M PRN; Protocol PRN Reason: per Hypoglycemia Standing Ord. Dextrose (D10) 250 mls @ 750 mls/hr IV Q15M PRN; Protocol PRN Reason: per Hypoglycemia Standing Ord. Insulin Human Lispro (Insulin Lispro 100 Unit/Ml 3 Ml Vial) 0 unit SUBCUT QIDACHS [facility]; Protocol Last Admin: 11/03/24 12:49 Dose: Not Given Ketotifen Fumarate (Ketotifen Fumarate 0.025% Oph 5 Ml Drpbtl) 1 drop EYE-BOTH BID PRN PRN Reason: Allergic Conjuctivitis Loratadine (Loratadine 10 Mg Tablet) 10 mg PO BEDTIME [facility] Last Admin: 11/02/24 21:27 Dose: 10 mg Magnesium Hydroxide (Milk Of Magnesia 30 Ml Oral.Susp) 30 ml PO DAILY PRN PRN Reason: Constipation Melatonin (Melatonin 3 Mg Tablet) 6 mg PO BEDTIME PRN PRN Reason: Insomnia Last Admin: 11/02/24 21:28 Dose: 6 mg Metformin HCl (Metformin Hcl 1,000 Mg Tablet) 1,000 mg PO BID [facility] Last Admin: 11/03/24 08:55 Dose: 1,000 mg Metronidazole (Metronidazole 0.75 % Gel 45 Gm Tube) 1 appl TOPICAL BID [facility] Last Admin: 11/03/24 11:23 Dose: Not Given Morphine Sulfate (Morphine Sulfate 2 Mg/Ml Cartridge) 2 mg IVPUSH Q6H PRN; Protocol PRN Reason: Pain, Severe (Pain Scale 7-10) Last Admin: 11/03/24 10:23 Dose: 2 mg Ondansetron HCl (Ondansetron Hcl 4 Mg/2 Ml Vial) 4 mg IVPUSH Q8H PRN PRN Reason: Nausea and Vomiting Last Admin: 11/03/24 04:35 Dose: 4 mg Phenobarbital (Phenobarbital 100 Mg Tablet) 100 mg PO BEDTIME [facility] Last Admin: 11/02/24 21:27 Dose: 100 mg Sodium Chloride (0.9 % Sodium Chloride Flush 3 Ml Syringe) 3 ml IVFLUSH QSHIFT [facility] Last Admin: 11/03/24 08:55 Dose: 3 ml Home Medications ?Medication ?Instructions ?Recorded ?Confirmed ?Last Taken ?Type metformin 500 mg tablet 1,000 mg PO BID 09/02/23 11/01/24 Unknown History amlodipine 5 mg tablet 5 mg PO DAILY 11/01/24 11/01/24 Unknown History atorvastatin 80 mg tablet 80 mg PO BEDTIME 11/01/24 11/01/24 Unknown History ipratropium 0.5 mg-albuterol 3 mg 3 ml inhalation Q4H PRN Shortness 11/01/24 11/01/24 Unknown History (2.5 mg base)/3 mL nebulization Of Breath Or Wheezing soln ketotifen fumarate 0.025 % (0.035 1 drp ophthalmic (eye) BID PRN 11/01/24 11/01/24 Unknown History %) eye drops Allergic Conjuctivitis levocetirizine 5 mg tablet 5 mg PO QPM 11/01/24 11/01/24 Unknown History metronidazole 0.75 % topical gel 1 appl topical BID 11/01/24 11/01/24 Unknown History ondansetron 4 mg disintegrating 4 mg PO Q8H PRN nausea and vomiting 11/01/24 11/01/24 Unknown History tablet peg 400-propylene glycol 0.4 %-0.3 1 drp ophthalmic (eye) QID PRN Dry 11/01/24 11/01/24 Unknown History % eye drops Eyes phenobarbital 32.4 mg tablet 32.4 mg PO BID 11/01/24 11/01/24 Unknown History sildenafil 25 mg tablet 25 mg PO DAILY PRN Sexual Activity 11/01/24 11/01/24 Unknown History Physical Exam Vital Signs: Vital Signs: Last Vital Signs Temp 98.1 F 11/03/24 12:00 Pulse 100 11/03/24 12:00 Resp 20 11/03/24 12:00 BP 116/82 11/03/24 12:00 Pulse Ox 92 11/03/24 12:00 O2 Del Method Room Air 11/03/24 12:00 O2 Flow Rate 3 11/02/24 14:57 BMI result Body Mass Index 34.7 Results Labs 11/02/24 09:01 11/02/24 09:01 Labs: Abnormal lab results 11/02/24 11/02/24 11/03/24 Range/Units 17:05 20:11 12:40 POC Glucose 137 H 137 H 122 H (60-115) mg/dL Urine 11/01/24 11/03/24 Range/Units 10:59 03:57 Urine Color Dark Yellow Yellow Urine Appearance Clear Clear Urine pH 5.0 5.5 (5.0-9.0) Ur Specific [place] 1.020 1.015 (1.005-1.025) Urine Protein Negative Negative (Neg-Trace) mg/dL Urine Glucose (UA) Negative Negative (Negative) mg/dL All other labs normal. Assessment and Plan Plan US scrotum ordered Procedures Date of Service Date of Service: 11/03/24
[2024-11-03] MEDS: Albuterol/Iprat 2.5/0.5MG 3 ML AMPUL.NEB INHALE (14:44)
--- NOTE | 2024-11-03 15:40 | HO.PM.IMPN ---
Subjective Subjective Date of Service: 11/03/24 Interval History: Persistent back pain had what appear to be another seizure overnight Physical Exam Vital Signs: Vital Signs: Last Vital Signs Temp 98.1 F 11/03/24 12:00 Pulse 100 11/03/24 12:00 Resp 20 11/03/24 12:00 BP 116/82 11/03/24 12:00 Pulse Ox 92 11/03/24 12:00 O2 Del Method Room Air 11/03/24 12:00 O2 Flow Rate 3 11/02/24 14:57 BMI result Body Mass Index 34.7 Const: Other: General: AO X 3, no acute distress Resp: CTA bilateral CVS: S1,S2,RRR GI: +BS, NT, no distention Skin: No rash Neuro: motor grossly intact Psych: appropriate affect Objective Data Active Medications Acetaminophen (Acetaminophen 325 Mg Tablet) 650 mg PO Q6H PRN PRN Reason: Pain, Mild 1-3,fever,headache Last Admin: 11/03/24 14:40 Dose: 650 mg Documented By: OLIVIA Albuterol Sulfate (Albuterol Sulfate 90 Mcg 8 Gm Inhaler) 2 puff INHALE Q4H PRN PRN Reason: shortness of breath or wheezing Albuterol/Ipratropium (Albuterol/Iprat 2.5/0.5mg 3 Ml Ampul.Neb) 3 ml INHALE Q4H PRN PRN Reason: Shortness Of Breath Or Wheezing Last Admin: 11/03/24 14:44 Dose: 3 ml Documented By: OLIVIA Amlodipine Besylate (Amlodipine Besylate 5 Mg Tablet) 5 mg PO DAILY [facility]; Protocol Last Admin: 11/03/24 08:55 Dose: 5 mg Documented By: OLIVIA Artificial Tears (Artificial Tears 15 Ml Drops) 1 drop EYE-BOTH QID PRN PRN Reason: Dry Eyes Atorvastatin Calcium (Atorvastatin Calcium 80 Mg Tablet) 80 mg PO BEDTIME [facility] Last Admin: 11/02/24 21:27 Dose: 80 mg Documented By: DOROTEO Calcium Carbonate (Calcium Carbonate 750 Mg Tab.Chew) 750 mg PO Q4H PRN PRN Reason: Heartburn Famotidine (Famotidine 20 Mg Tablet) 20 mg PO BID [facility] Last Admin: 11/03/24 08:55 Dose: 20 mg Documented By: OLIVIA Glucose (Glucose Gel 15 Gm Gel..Gram.) 15 gm PO Q15M PRN; Protocol PRN Reason: per Hypoglycemia Standing Ord. Dextrose (D10) 250 mls @ 750 mls/hr IV Q15M PRN; Protocol PRN Reason: per Hypoglycemia Standing Ord. Insulin Human Lispro (Insulin Lispro 100 Unit/Ml 3 Ml Vial) 0 unit SUBCUT QIDACHS [facility]; Protocol Last Admin: 11/03/24 12:49 Dose: Not Given Documented By: OLIVIA Non-Admin Reason: No Insulin Coverage Ketotifen Fumarate (Ketotifen Fumarate 0.025% Oph 5 Ml Drpbtl) 1 drop EYE-BOTH BID PRN PRN Reason: Allergic Conjuctivitis Loratadine (Loratadine 10 Mg Tablet) 10 mg PO BEDTIME [facility] Last Admin: 11/02/24 21:27 Dose: 10 mg Documented By: DOROTEO Magnesium Hydroxide (Milk Of Magnesia 30 Ml Oral.Susp) 30 ml PO DAILY PRN PRN Reason: Constipation Melatonin (Melatonin 3 Mg Tablet) 6 mg PO BEDTIME PRN PRN Reason: Insomnia Last Admin: 11/02/24 21:28 Dose: 6 mg Documented By: DOROTEO Metformin HCl (Metformin Hcl 1,000 Mg Tablet) 1,000 mg PO BID [facility] Last Admin: 11/03/24 08:55 Dose: 1,000 mg Documented By: OLIVIA Metronidazole (Metronidazole 0.75 % Gel 45 Gm Tube) 1 appl TOPICAL BID [facility] Last Admin: 11/03/24 11:23 Dose: Not Given Documented By: OLIVIA Non-Admin Reason: Med Not Available Morphine Sulfate (Morphine Sulfate 2 Mg/Ml Cartridge) 2 mg IVPUSH Q6H PRN; Protocol PRN Reason: Pain, Severe (Pain Scale 7-10) Last Admin: 11/03/24 10:23 Dose: 2 mg Documented By: OLIVIA Ondansetron HCl (Ondansetron Hcl 4 Mg/2 Ml Vial) 4 mg IVPUSH Q8H PRN PRN Reason: Nausea and Vomiting Last Admin: 11/03/24 14:36 Dose: 4 mg Documented By: OLIVIA Phenobarbital (Phenobarbital 100 Mg Tablet) 100 mg PO BEDTIME [facility] Last Admin: 11/02/24 21:27 Dose: 100 mg Documented By: DOROTEO Sodium Chloride (0.9 % Sodium Chloride Flush 3 Ml Syringe) [facility] Last Admin: 11/03/24 14:36 Dose: 3 ml Documented By: JEANNINENM Labs 11/02/24 09:01 11/02/24 09:01 Labs: Laboratory Results - last 24 hr 11/02/24 11/02/24 11/03/24 17:05 20:11 03:57 POC Glucose 137 H 137 H Urine Color Yellow Urine Appearance Clear Urine pH 5.5 Ur Specific [place] 1.015 Urine Protein Negative Urine Glucose (UA) Negative Urine Ketones Negative Urine Blood Negative Urine Nitrite Negative Ur Leukocyte Esterase Negative Urine RBC 0-2 Urine WBC 0-5 Ur Squamous Epith Cells 0-2 Urine Bacteria None Seen Hyaline Casts 0-2 11/03/24 11/03/24 11/03/24 04:30 07:18 12:40 POC Glucose 99 98 122 H Urine Color Urine Appearance Urine pH Ur Specific [place] Urine Protein Urine Glucose (UA) Urine Ketones Urine Blood Urine Nitrite Ur Leukocyte Esterase Urine RBC Urine WBC Ur Squamous Epith Cells Urine Bacteria Hyaline Casts Assessment and Plan (1) Breakthrough seizure: Status: Acute Assessment and Plan: CT brain normal. Phenobarb level low Recom: >EEG. Switch to Phenobarb 100mg hs only Plan 68-year-old male with history of hypertension, hyperlipidemia, BPH, Schizoaffective d/o, history of Pseudoseizures, diagnosed diabetes mellitus presented to the ED with initial complaint of right sided flank pain since this morning and reportedly had some blood in the urine. While in ED reportedly had 2 seizures and her phenobarbital level is low Right flank pain etiology unclear, UA negative, CT non-obstructive stone -no hematuria -symptmatic treatement -urology consult Seizure/Pseudoseizure -Neuro recommends phenobarbital 100 mg at bedtime -eeg requested diabetes, -sliding scale insulin HLD-statin dvt prophylaxis-add lovenox Quality Stroke Does the patient have a stroke diagnosis?: No VTE Prior VTE?: No VTE Risk Level:: Medical - moderate - high VTE Device Contraindication: N/A - Device Ordered VTE Drug Contraindication: N/A - Med Ordered
[2024-11-03] MEDS: Enoxaparin Sodium 40 MG/0.4 ML SYRINGE SUBCUT (16:24)
[2024-11-03 16:52] LABS: Glucose, Whole Blood 186 mg/dL (60-115)
[2024-11-03] MEDS: Insulin Lispro 100 UNIT/ML 3 ML VIAL SUBCUT (16:56)
[2024-11-03 20:01] LABS: Glucose, Whole Blood 123 mg/dL (60-115)
[2024-11-03] MEDS: Loratadine 10 MG TABLET PO (20:23)
[2024-11-03] MEDS: Atorvastatin Calcium 80 MG TABLET PO (20:23)
[2024-11-03] MEDS: metroNIDAZOLE 0.75 % Gel 45 GM TUBE 1 APPL TOPICAL (20:24)
[2024-11-04 03:33] VITALS: BP 117/75; PULSE 71; RESP 18; TEMP 36.4; O2SAT 94
[2024-11-04] MEDS: Morphine Sulfate 2 MG/ML CARTRIDGE IVPUSH ×2 (04:08→11:14)
--- NOTE | 2024-11-04 04:24 | PC.NURSE ---
Addendum entered by Yu Norton RN 11/04/24 05:05: Approx 0450 pt began dry heaving. [facility] for [facility] Pt stated he passed gas, then burped and stated his burp smelled like linda which led him to dry heave. Pt stated he believed now whatever is wrong with him is in his stomach and would like to see GI. This RN stated she would pass this information on to [facility] along w/his wishes to see GI. Call hunter with reach. Original Note: Pt awoke approx 0400 needing to urinate. ELECTRIC TRUCKER helped pt to bathroom, while urinating, pt was crying out in pain. This RN spoke to pt about pain and discussed options, see MAR for med administration. Pt spoke w/this RN about his pain. He continues to report pain in his right flank, radiating to the right side of his groin. Pt states the tip of his penis hurts. He also mentioned that his testicles and penis go inside his body. He repeated many times, I am not ok, something is wrong with me. I know my body ma'am . Pt stated he would like more tests run to find out what could be wrong. He stated I can't live with this pain . Pt said he had PNA for 14 days and was at [facility] and received ABX, prednisone, and IVF. He also stated when he came into [facility] ED he coughed up black sputum. Pt stated he informed ED RN and LEGISLATIVE CORRESPONDENT of this occurrence. Pt now back in bed, call hunter within reach.
[2024-11-04] MEDS: ondansetron HCL 4 MG/2 ML VIAL IVPUSH (04:52)
[2024-11-04 07:29] VITALS: BP 132/89; PULSE 75; RESP 20; TEMP 36.4; O2SAT 94
[2024-11-04 08:00] LABS: Glucose, Whole Blood 105 mg/dL (60-115)
[2024-11-04] MEDS: 0.9 % Sodium Chloride Flush 3 ML SYRINGE IVFLUSH ×3 (08:08→20:45)
[2024-11-04] MEDS: metroNIDAZOLE 0.75 % Gel 45 GM TUBE 1 APPL TOPICAL ×2 (08:08→21:08)
[2024-11-04] MEDS: amLODIPine Besylate 5 MG TABLET PO (08:09)
[2024-11-04] MEDS: Famotidine 20 MG TABLET PO ×2 (08:09→20:45)
[2024-11-04] MEDS: metFORMIN HCl 1,000 MG TABLET 1000 MG PO ×2 (08:09→20:45)
[2024-11-04] MEDS: Acetaminophen 325 MG TABLET 650 MG PO (11:10)
[2024-11-04 11:28] LABS: Glucose, Whole Blood 123 mg/dL (60-115)
[2024-11-04 15:07] VITALS: BP 130/79; PULSE 86; RESP 18; TEMP 36.6; O2SAT 95
--- NOTE | 2024-11-04 15:23 | HO.PM.IMPN ---
Subjective Subjective Date of Service: 11/04/24 Interval History: pt is reports that he had nausea, vomiting that smelled extremely bad and as result doesn't to eat Physical Exam Vital Signs: Vital Signs: Last Vital Signs Temp 97.9 F 11/04/24 15:07 Pulse 86 11/04/24 15:07 Resp 18 11/04/24 15:07 BP 130/79 11/04/24 15:07 Pulse Ox 95 11/04/24 15:07 O2 Del Method Room Air 11/04/24 15:07 O2 Flow Rate 3 11/02/24 14:57 BMI result Body Mass Index 34.7 Const: Other: General: AO X 3, no acute distress Resp: CTA bilateral CVS: S1,S2,RRR GI: +BS, NT, no distention Skin: No rash Neuro: motor grossly intact Psych: appropriate affect Objective Data Active Medications Acetaminophen (Acetaminophen 325 Mg Tablet) 650 mg PO Q6H PRN PRN Reason: Pain, Mild 1-3,fever,headache Last Admin: 11/04/24 11:10 Dose: 650 mg Documented By: OLIVIA Albuterol Sulfate (Albuterol Sulfate 90 Mcg 8 Gm Inhaler) 2 puff INHALE Q4H PRN PRN Reason: shortness of breath or wheezing Albuterol/Ipratropium (Albuterol/Iprat 2.5/0.5mg 3 Ml Ampul.Neb) 3 ml INHALE Q4H PRN PRN Reason: Shortness Of Breath Or Wheezing Last Admin: 11/03/24 14:44 Dose: 3 ml Documented By: OLIVIA Amlodipine Besylate (Amlodipine Besylate 5 Mg Tablet) 5 mg PO DAILY [facility]; Protocol Last Admin: 11/04/24 08:09 Dose: 5 mg Documented By: OLIVIA Artificial Tears (Artificial Tears 15 Ml Drops) 1 drop EYE-BOTH QID PRN PRN Reason: Dry Eyes Atorvastatin Calcium (Atorvastatin Calcium 80 Mg Tablet) 80 mg PO BEDTIME [facility] Last Admin: 11/03/24 20:23 Dose: 80 mg Documented By: ANSELMO Calcium Carbonate (Calcium Carbonate 750 Mg Tab.Chew) 750 mg PO Q4H PRN PRN Reason: Heartburn Enoxaparin Sodium (Enoxaparin Sodium 40 Mg/0.4 Ml Syringe) 40 mg SUBCUT Q24H [facility] Last Admin: 11/03/24 16:24 Dose: 40 mg Documented By: OLIVIA Famotidine (Famotidine 20 Mg Tablet) 20 mg PO BID [facility] Last Admin: 11/04/24 08:09 Dose: 20 mg Documented By: OLIVIA Glucose (Glucose Gel 15 Gm Gel..Gram.) 15 gm PO Q15M PRN; Protocol PRN Reason: per Hypoglycemia Standing Ord. Dextrose (D10) 250 mls @ 750 mls/hr IV Q15M PRN; Protocol PRN Reason: per Hypoglycemia Standing Ord. Insulin Human Lispro (Insulin Lispro 100 Unit/Ml 3 Ml Vial) 0 unit SUBCUT QIDACHS [facility]; Protocol Last Admin: 11/04/24 11:35 Dose: Not Given Documented By: OLIVIA Non-Admin Reason: No Insulin Coverage Ketotifen Fumarate (Ketotifen Fumarate 0.025% Oph 5 Ml Drpbtl) 1 drop EYE-BOTH BID PRN PRN Reason: Allergic Conjuctivitis Loratadine (Loratadine 10 Mg Tablet) 10 mg PO BEDTIME [facility] Last Admin: 11/03/24 20:23 Dose: 10 mg Documented By: ANSELMO Magnesium Hydroxide (Milk Of Magnesia 30 Ml Oral.Susp) 30 ml PO DAILY PRN PRN Reason: Constipation Melatonin (Melatonin 3 Mg Tablet) 6 mg PO BEDTIME PRN PRN Reason: Insomnia Last Admin: 11/02/24 21:28 Dose: 6 mg Documented By: DOROTEO Metformin HCl (Metformin Hcl 1,000 Mg Tablet) 1,000 mg PO BID [facility] Last Admin: 11/04/24 08:09 Dose: 1,000 mg Documented By: OLIVIA Metronidazole (Metronidazole 0.75 % Gel 45 Gm Tube) 1 appl TOPICAL BID [facility] Last Admin: 11/04/24 08:08 Dose: 1 appl Documented By: OLIVIA Morphine Sulfate (Morphine Sulfate 2 Mg/Ml Cartridge) 2 mg IVPUSH Q6H PRN; Protocol PRN Reason: Pain, Severe (Pain Scale 7-10) Last Admin: 11/04/24 11:14 Dose: 2 mg Documented By: OLIVIA Ondansetron HCl (Ondansetron Hcl 4 Mg/2 Ml Vial) 4 mg IVPUSH Q8H PRN PRN Reason: Nausea and Vomiting Last Admin: 11/04/24 04:52 Dose: 4 mg Documented By: ANNE Phenobarbital (Phenobarbital 100 Mg Tablet) 100 mg PO BEDTIME [facility] Last Admin: 11/03/24 20:23 Dose: 100 mg Documented By: ANSELMO Sodium Chloride (0.9 % Sodium Chloride Flush 3 Ml Syringe) 3 ml IVFLUSH QSHIFT [facility] Last Admin: 11/04/24 08:08 Dose: 3 ml Documented By: JEANNINENM Labs 11/02/24 09:01 11/02/24 09:01 Labs: Laboratory Results - last 24 hr 11/03/24 11/03/24 11/04/24 16:48 19:47 07:33 POC Glucose 186 H 123 H 105 11/04/24 11:07 POC Glucose 123 H Assessment and Plan (1) Breakthrough seizure: Status: Acute Assessment and Plan: CT brain normal. Phenobarb level low Recom: >EEG. Switch to Phenobarb 100mg hs only Plan 68-year-old male with history of hypertension, hyperlipidemia, BPH, Schizoaffective d/o, history of Pseudoseizures, diagnosed diabetes mellitus presented to the ED with initial complaint of right sided flank pain since this morning and reportedly had some blood in the urine. While in ED reportedly had 2 seizures and her phenobarbital level is low Right flank pain etiology unclear, UA negative, CT non-obstructive stone -no hematuria -symptmatic treatement -urology consult Nausea and vomitting, kub negative -gi consult Seizure/Pseudoseizure -Neuro recommends phenobarbital 100 mg at bedtime -eeg requested diabetes, -sliding scale insulin HLD-statin dvt prophylaxis-add lovenox Quality Stroke Does the patient have a stroke diagnosis?: No VTE Prior VTE?: No VTE Risk Level:: Medical - moderate - high VTE Device Contraindication: N/A - Device Ordered VTE Drug Contraindication: N/A - Med Ordered
--- NOTE | 2024-11-04 16:01 | MHC.CM.PN ---
PT NOT YET MEDICALLY CLEARED DCP REMAINS HOME WITH NO SERVICES VIA PRIVATE TRANSPORT
[2024-11-04] MEDS: Enoxaparin Sodium 40 MG/0.4 ML SYRINGE SUBCUT (16:19)
[2024-11-04 16:23] LABS: Glucose, Whole Blood 149 mg/dL (60-115)
[2024-11-04 19:19] VITALS: BP 101/60; PULSE 67; RESP 17; TEMP 36.4; O2SAT 93
[2024-11-04 20:22] LABS: Glucose, Whole Blood 87 mg/dL (60-115)
[2024-11-04] MEDS: Atorvastatin Calcium 80 MG TABLET PO (20:44)
[2024-11-04] MEDS: Loratadine 10 MG TABLET PO (20:44)
[2024-11-04] MEDS: diphenhydrAMINE HCL 25 MG CAPSULE PO (21:08)
--- NOTE | 2024-11-05 01:43 | PC.NURSE ---
late entry 11/04/24 pt c/o of itch all over requesting benadryl Dr. Hampton notified ordered 25mg po benadryl x 1 dose given at 2109 with good effect.Pt sleeping at present time.
[2024-11-05 03:15] VITALS: BP 121/77; PULSE 70; RESP 18; TEMP 36.9; O2SAT 96
[2024-11-05 07:45] VITALS: BP 128/87; PULSE 79; RESP 16; TEMP 36.2; O2SAT 94
[2024-11-05 08:07] LABS: Glucose, Whole Blood 109 mg/dL (60-115)
[2024-11-05 08:16] VITALS: BP 128/87
[2024-11-05] MEDS: metFORMIN HCl 1,000 MG TABLET 1000 MG PO ×2 (08:16→23:18)
[2024-11-05] MEDS: 0.9 % Sodium Chloride Flush 3 ML SYRINGE IVFLUSH ×3 (08:16→23:19)
[2024-11-05] MEDS: amLODIPine Besylate 5 MG TABLET PO (08:16)
[2024-11-05] MEDS: metroNIDAZOLE 0.75 % Gel 45 GM TUBE 1 APPL TOPICAL (08:16)
[2024-11-05] MEDS: Famotidine 20 MG TABLET PO ×2 (08:16→23:19)
--- NOTE | 2024-11-05 09:08 | P.CNGI_ITS ---
History of Present Illness Data of Consult Service Date: 11/05/24 Requesting physician: Jerald Bender Primary Care Provider: Bere Rios NP HPI Reason for consult: nausea 68-year-old male with history of hypertension, hyperlipidemia, BPH, Schizoaffective d/o, history of Pseudoseizures, diabetes mellitus who I am asked to see for nausea He initially presented to the ED with complaint of right sided flank pain 10/10 radiating into the groin with blood in the urine and difficulty voiding. He also noted burning in the upper abdomen, since he left [facility] 2 weeks ago for treatment for pneumonia. He has noted nausea with regurgitiation, but no dysphagia. He is unsure about taking PPI. He denies taking nsaids or aspirin. He had imaging which revealed non obstructive nephrolithiasis, constipation, atherosclerosis. He also had seizures during this admission and saw neurology, awaiting EEG. While in ED reportedly had 2 seizures and phenobarbital level was low. Given ativan, and Phenobarbital. He has been ongoing seizures whilst in patient including this morning. Review of Systems 2 Review of Systems: Constitutional : No Weight loss, No Fever, No Chills ENT/Mouth : No sore throat, No Rhinorrhea Eyes: No Swelling, No Redness Cardiovascular : No Chest Pain, No SOB, No Edema Respiratory : No Cough, No Sputum, No Wheezing Gastrointestinal : see HPI Genitourinary : NO Dysuria, No Urinary Frequency, No Hematuria, + Urgency Musculoskeletal : + joint pain, No Myalgias, No Joint Swelling Skin : No Skin Lesions, No rash Neuro : + Weakness, No Numbness, No Dizziness, No Headache Psych : No Anxiety/Panic, No Depression Heme/Lymph: No Bruising, No Lymphadenopathy Endocrine : No Polyuria, No Polydipsia All other systems reviewed and are negative. [facility] Past Medical History Medical History Sleep apnea Asthma DMII (diabetes mellitus, type 2) GERD (gastroesophageal reflux disease) Diverticulitis PTSD (post-traumatic stress disorder) Seizures Hypertension Family History Pertinent family history: no fh of ulcers Surgical History Surgical History Hx of lithotripsy Hx of elbow surgery Hx of appendectomy Hx of umbilical hernia repair Hx of laparoscopy Social History Social History Household Members: Spouse Housing: House Unable to assess alcohol history related to: Unknown Alcohol intake: never Patient Tobacco Use Status: Former Tobacco user Smoked in Last 30 Days: No Patient Interested in Nicotine Replacement: No Patient Given Instructions on How to Stop Smoking: No Second Hand Smoke Exposure: No Use of substances other than those prescribed or required for medical reasons: Yes Substance Use Type: Other Substance Use Type Other:: THC drops Currently Displaying Signs/Symptoms of Drug Intoxication Withdrawal: No Any prior treatment program specific to substance use: No Have you been hit, kicked, punched, or otherwise hurt by someone within the past year? If so, by whom?: No Do you feel safe in your current relationship?: Yes Is there a partner from a previous relationship who is making you feel unsafe now?: No Advance Directives: No Advance Directives Information Provided: Yes Advance Directives on File: No Do you have a plan to hurt others: No Plan Recently lost weight without trying: No Eating poorly because of decreased appetite: No Nutrition Risks: No Nutritional Risk Poor oral hygiene: No service: Yes Meds Allergies Allergy/AdvReac Type Severity Reaction Status Date / Time fentanyl [FENTANYL] Allergy Severe CARDIAC Verified 11/01/24 11:19 ARREST fluconazole [From DIFLUCAN] Allergy Severe Hives Verified 11/01/24 11:19 fosphenytoin [FOSPHENYTOIN] Allergy Severe Hives Verified 11/01/24 11:19 levofloxacin [From LEVAQUIN] Allergy Severe Hives Verified 11/01/24 11:19 oxycodone [From PERCOCET] Allergy Severe Hives Verified 11/01/24 11:19 divalproex sodium Allergy Unknown Itching Verified 11/01/24 11:19 [From DEPAKOTE] hydromorphone [From Dilaudid] Allergy Hives Verified 11/02/24 18:48 Iodinated Contrast Media Allergy Anaphylaxis Verified 11/01/24 11:21 [IV Contrast Dye] levetiracetam [From Keppra] Allergy Swelling Verified 11/05/24 10:06 hydrocodone Allergy Severe Hives Uncoded 11/01/24 11:19 percocet Allergy Severe Unknown Uncoded 11/01/24 11:19 oxycodone Allergy Unknown Unknown Uncoded 11/01/24 11:19 Active Medications: Current Medications Acetaminophen (Acetaminophen 325 Mg Tablet) 650 mg PO Q6H PRN PRN Reason: Pain, Mild 1-3,fever,headache Last Admin: 11/04/24 11:10 Dose: 650 mg Albuterol Sulfate (Albuterol Sulfate 90 Mcg 8 Gm Inhaler) 2 puff INHALE Q4H PRN PRN Reason: shortness of breath or wheezing Albuterol/Ipratropium (Albuterol/Iprat 2.5/0.5mg 3 Ml Ampul.Neb) 3 ml INHALE Q4H PRN PRN Reason: Shortness Of Breath Or Wheezing Last Admin: 11/03/24 14:44 Dose: 3 ml Amlodipine Besylate (Amlodipine Besylate 5 Mg Tablet) 5 mg PO DAILY [facility]; Protocol Last Admin: 11/05/24 08:16 Dose: 5 mg Artificial Tears (Artificial Tears 15 Ml Drops) 1 drop EYE-BOTH QID PRN PRN Reason: Dry Eyes Atorvastatin Calcium (Atorvastatin Calcium 80 Mg Tablet) 80 mg PO BEDTIME [facility] Last Admin: 11/04/24 20:44 Dose: 80 mg Calcium Carbonate (Calcium Carbonate 750 Mg Tab.Chew) 750 mg PO Q4H PRN PRN Reason: Heartburn Enoxaparin Sodium (Enoxaparin Sodium 40 Mg/0.4 Ml Syringe) 40 mg SUBCUT Q24H [facility] Last Admin: 11/04/24 16:19 Dose: 40 mg Famotidine (Famotidine 20 Mg Tablet) 20 mg PO BID [facility] Last Admin: 11/05/24 08:16 Dose: 20 mg Glucose (Glucose Gel 15 Gm Gel..Gram.) 15 gm PO Q15M PRN; Protocol PRN Reason: per Hypoglycemia Standing Ord. Dextrose (D10) 250 mls @ 750 mls/hr IV Q15M PRN; Protocol PRN Reason: per Hypoglycemia Standing Ord. Insulin Human Lispro (Insulin Lispro 100 Unit/Ml 3 Ml Vial) 0 unit SUBCUT QIDACHS [facility]; Protocol Last Admin: 11/05/24 08:10 Dose: Not Given Ketotifen Fumarate (Ketotifen Fumarate 0.025% Oph 5 Ml Drpbtl) 1 drop EYE-BOTH BID PRN PRN Reason: Allergic Conjuctivitis Loratadine (Loratadine 10 Mg Tablet) 10 mg PO BEDTIME [facility] Last Admin: 11/04/24 20:44 Dose: 10 mg Magnesium Hydroxide (Milk Of Magnesia 30 Ml Oral.Susp) 30 ml PO DAILY PRN PRN Reason: Constipation Melatonin (Melatonin 3 Mg Tablet) 6 mg PO BEDTIME PRN PRN Reason: Insomnia Last Admin: 11/02/24 21:28 Dose: 6 mg Metformin HCl (Metformin Hcl 1,000 Mg Tablet) 1,000 mg PO BID [facility] Last Admin: 11/05/24 08:16 Dose: 1,000 mg Metronidazole (Metronidazole 0.75 % Gel 45 Gm Tube) 1 appl TOPICAL BID [facility] Last Admin: 11/05/24 08:16 Dose: 1 appl Morphine Sulfate (Morphine Sulfate 2 Mg/Ml Cartridge) 2 mg IVPUSH Q6H PRN; Protocol PRN Reason: Pain, Severe (Pain Scale 7-10) Last Admin: 11/04/24 11:14 Dose: 2 mg Ondansetron HCl (Ondansetron Hcl 4 Mg/2 Ml Vial) 4 mg IVPUSH Q8H PRN PRN Reason: Nausea and Vomiting Last Admin: 11/04/24 04:52 Dose: 4 mg Phenobarbital (Phenobarbital 100 Mg Tablet) 100 mg PO BEDTIME [facility] Last Admin: 11/04/24 20:44 Dose: 100 mg Sodium Chloride (0.9 % Sodium Chloride Flush 3 Ml Syringe) 3 ml IVFLUSH QSHIFT [facility] Last Admin: 11/05/24 08:16 Dose: 3 ml Home Medications ?Medication ?Instructions ?Recorded ?Confirmed ?Last Taken ?Type metformin 500 mg tablet 1,000 mg PO BID 09/02/23 11/01/24 Unknown History amlodipine 5 mg tablet 5 mg PO DAILY 11/01/24 11/01/24 Unknown History atorvastatin 80 mg tablet 80 mg PO BEDTIME 11/01/24 11/01/24 Unknown History ipratropium 0.5 mg-albuterol 3 mg 3 ml inhalation Q4H PRN Shortness 11/01/24 11/01/24 Unknown History (2.5 mg base)/3 mL nebulization Of Breath Or Wheezing soln ketotifen fumarate 0.025 % (0.035 1 drp ophthalmic (eye) BID PRN 11/01/24 11/01/24 Unknown History %) eye drops Allergic Conjuctivitis levocetirizine 5 mg tablet 5 mg PO QPM 11/01/24 11/01/24 Unknown History metronidazole 0.75 % topical gel 1 appl topical BID 11/01/24 11/01/24 Unknown History ondansetron 4 mg disintegrating 4 mg PO Q8H PRN nausea and vomiting 11/01/24 11/01/24 Unknown History tablet peg 400-propylene glycol 0.4 %-0.3 1 drp ophthalmic (eye) QID PRN Dry 11/01/24 11/01/24 Unknown History % eye drops Eyes phenobarbital 32.4 mg tablet 32.4 mg PO BID 11/01/24 11/01/24 Unknown History sildenafil 25 mg tablet 25 mg PO DAILY PRN Sexual Activity 11/01/24 11/01/24 Unknown History Physical Exam 2 Vital Signs: Vital Signs: Last Vital Signs Temp 97.1 F 11/05/24 07:45 Pulse 79 11/05/24 07:45 Resp 16 11/05/24 07:45 BP 128/87 11/05/24 08:16 Pulse Ox 94 11/05/24 07:45 O2 Del Method Room Air 11/05/24 07:45 O2 Flow Rate 3 11/02/24 14:57 BMI result Body Mass Index 34.7 EXAM: GENERAL: The patient is well developed and nontoxic. VITAL SIGNS:see workflow HEENT: Nonicteric sclerae, PERRLA, EOMI. Oropharynx clear. Moist mucous membranes. Conjunctivae appear well perfused. No thyroid mass. CHEST: Chest wall is nontender. HEART: Regular rate and rhythm without murmurs. LUNGS: Clear to auscultation bilaterally. ABDOMEN: Soft, positive bowel sounds, tender epigastrium and right flank, no organomegaly. SKIN: No rash, no excessive bruising, petechiae, or purpura. NEUROLOGIC: Cranial nerves II-XII intact without motor/sensory deficit. Psych: normal affect Results Labs 11/02/24 09:01 11/05/24 09:[address] scan - abdomen: Attestation: I personally reviewed and interpreted this imaging study as follows: (perinephric stranding, jay left with kidney stones noted, atherosclerosis, gastric and esophageal thickening) Assessment and Plan (1) Nausea: Status: Acute Plan 1/ Recurrent nausea and regurgitiation, with stomach and esophgeal thickening on imaging, may have esophagitis or stress related gastritis, may also be central cause or medications given seizure history PLAN: /1 - commence high dose protonix 40 mg BID 2/ repeat CT abdo scan with PO contrast 3/ consider further brain imaging r/o central cause - pending EEG as well Procedures Date of Service Date of Service: 11/05/24
[2024-11-05 09:48] LABS: Glucose, Whole Blood 98 mg/dL (60-115)
--- NOTE | 2024-11-05 09:56 | P.PNIM_ITS ---
Subjective Subjective Date of Service: 11/05/24 Interval History: Pt still reporting nausea, no vomitting and burning in the stomach just had an [employer] for unresponsive which appear to be seizure and is now out of it Physical Exam 2 Vital Signs: Vital Signs: Last Vital Signs Temp 97.1 F 11/05/24 07:45 Pulse 79 11/05/24 07:45 Resp 16 11/05/24 07:45 BP 128/87 11/05/24 08:16 Pulse Ox 94 11/05/24 07:45 O2 Del Method Room Air 11/05/24 07:45 O2 Flow Rate 3 11/02/24 14:57 BMI result Body Mass Index 34.7 Const: Other: General: AO X 3, no acute distress Resp: CTA bilateral CVS: S1,S2,RRR GI: +BS, NT, no distention Skin: No rash Neuro: motor grossly intact Psych: appropriate affect Objective Data Active Medications Acetaminophen (Acetaminophen 325 Mg Tablet) 650 mg PO Q6H PRN PRN Reason: Pain, Mild 1-3,fever,headache Last Admin: 11/04/24 11:10 Dose: 650 mg Documented By: OLIVIA Albuterol Sulfate (Albuterol Sulfate 90 Mcg 8 Gm Inhaler) 2 puff INHALE Q4H PRN PRN Reason: shortness of breath or wheezing Albuterol/Ipratropium (Albuterol/Iprat 2.5/0.5mg 3 Ml Ampul.Neb) 3 ml INHALE Q4H PRN PRN Reason: Shortness Of Breath Or Wheezing Last Admin: 11/03/24 14:44 Dose: 3 ml Documented By: OLIVIA Amlodipine Besylate (Amlodipine Besylate 5 Mg Tablet) 5 mg PO DAILY [facility]; Protocol Last Admin: 11/05/24 08:16 Dose: 5 mg Documented By: GRACIELA Artificial Tears (Artificial Tears 15 Ml Drops) 1 drop EYE-BOTH QID PRN PRN Reason: Dry Eyes Atorvastatin Calcium (Atorvastatin Calcium 80 Mg Tablet) 80 mg PO BEDTIME [facility] Last Admin: 11/04/24 20:44 Dose: 80 mg Documented By: DA Calcium Carbonate (Calcium Carbonate 750 Mg Tab.Chew) 750 mg PO Q4H PRN PRN Reason: Heartburn Enoxaparin Sodium (Enoxaparin Sodium 40 Mg/0.4 Ml Syringe) 40 mg SUBCUT Q24H [facility] Last Admin: 11/04/24 16:19 Dose: 40 mg Documented By: OLIVIA Famotidine (Famotidine 20 Mg Tablet) 20 mg PO BID [facility] Last Admin: 11/05/24 08:16 Dose: 20 mg Documented By: GRACIELA Glucose (Glucose Gel 15 Gm Gel..Gram.) 15 gm PO Q15M PRN; Protocol PRN Reason: per Hypoglycemia Standing Ord. Dextrose (D10) 250 mls @ 750 mls/hr IV Q15M PRN; Protocol PRN Reason: per Hypoglycemia Standing Ord. Levetiracetam (Keppra) 1,000 mg in 100 mls @ 400 mls/hr IV ONCE ONE Stop: 11/05/24 09:59 Insulin Human Lispro (Insulin Lispro 100 Unit/Ml 3 Ml Vial) 0 unit SUBCUT QIDACHS [facility]; Protocol Last Admin: 11/05/24 08:10 Dose: Not Given Documented By: GRACIELA Non-Admin Reason: No Insulin Coverage Ketotifen Fumarate (Ketotifen Fumarate 0.025% Oph 5 Ml Drpbtl) 1 drop EYE-BOTH BID PRN PRN Reason: Allergic Conjuctivitis Loratadine (Loratadine 10 Mg Tablet) 10 mg PO BEDTIME [facility] Last Admin: 11/04/24 20:44 Dose: 10 mg Documented By: DA Magnesium Hydroxide (Milk Of Magnesia 30 Ml Oral.Susp) 30 ml PO DAILY PRN PRN Reason: Constipation Melatonin (Melatonin 3 Mg Tablet) 6 mg PO BEDTIME PRN PRN Reason: Insomnia Last Admin: 11/02/24 21:28 Dose: 6 mg Documented By: DOROTEO Metformin HCl (Metformin Hcl 1,000 Mg Tablet) 1,000 mg PO BID [facility] Last Admin: 11/05/24 08:16 Dose: 1,000 mg Documented By: GRACIELA Metronidazole (Metronidazole 0.75 % Gel 45 Gm Tube) 1 appl TOPICAL BID [facility] Last Admin: 11/05/24 08:16 Dose: 1 appl Documented By: GRACIELA Morphine Sulfate (Morphine Sulfate 2 Mg/Ml Cartridge) 2 mg IVPUSH Q6H PRN; Protocol PRN Reason: Pain, Severe (Pain Scale 7-10) Last Admin: 11/04/24 11:14 Dose: 2 mg Documented By: OLIVIA Ondansetron HCl (Ondansetron Hcl 4 Mg/2 Ml Vial) 4 mg IVPUSH Q8H PRN PRN Reason: Nausea and Vomiting Last Admin: 11/04/24 04:52 Dose: 4 mg Documented By: ANNE Phenobarbital (Phenobarbital 100 Mg Tablet) 100 mg PO BEDTIME [facility] Last Admin: 11/04/24 20:44 Dose: 100 mg Documented By: DA Sodium Chloride (0.9 % Sodium Chloride Flush 3 Ml Syringe) 3 ml IVFLUSH QSHIFT [facility] Last Admin: 11/05/24 08:16 Dose: 3 ml Documented By: GRACIELA Labs 11/02/24 09:01 11/02/24 09:01 Labs: Laboratory Results - last 24 hr 11/04/24 11/04/24 11/04/24 11:07 16:15 20:18 POC Glucose 123 H 149 H 87 11/05/24 11/05/24 07:46 09:43 POC Glucose 109 98 Assessment and Plan (1) Breakthrough seizure: Status: Acute Assessment and Plan: CT brain normal. Phenobarb level low Recom: >EEG. Switch to Phenobarb 100mg hs only Plan 68-year-old male with history of hypertension, hyperlipidemia, BPH, Schizoaffective d/o, history of Pseudoseizures, diagnosed diabetes mellitus presented to the ED with initial complaint of right sided flank pain since this morning and reportedly had some blood in the urine. While in ED reportedly had 2 seizures and her phenobarbital level is low Right flank pain etiology unclear, UA negative, CT non-obstructive stone -no hematuria -symptmatic treatement -urology consult, recommended US which is normal Nausea and vomitting, kub negative -gi consult -CT of abdomen without contrast -IV ppi Seizure/Pseudoseizure, pt just had what appeared to be seizure again -Neuro recommends phenobarbital 100 mg at bedtime -Ativan PRN for seizure, -get phenobarbial level -eeg done result pending -additional med challenging because of multiple allergies diabetes, -sliding scale insulin -IVF if not eating HLD-statin dvt prophylaxis-add lovenox Quality Stroke Does the patient have a stroke diagnosis?: No VTE Prior VTE?: No VTE Risk Level:: Medical - moderate - high VTE Device Contraindication: N/A - Device Ordered VTE Drug Contraindication: N/A - Med Ordered
--- NOTE | 2024-11-05 10:03 | PC.NURSE ---
Pt states Allergy to MD Escobar notified at this time.
--- NOTE | 2024-11-05 10:17 | P.CNNE_ITS ---
History of Present Illness Data of Consult Service Date: 11/05/24 Primary Care Provider: Bere Rios NP HPI Reason for consult: Seizure disorder 68 years old man who stated that he has been suffering from seizure disorder for 40 years of more. He said that it started after he had head injury while in [place]. Over the years he had tried multiple medicines, which did not agree with him, and he preferred phenobarbital over others. He said that his doctor was in [place] and he was put back on phenobarbital recently. He was taking 30 mg twice a day, which did not work and 100 mg a day was working better. Presently he was having some abdominal pain and said that due to the pain his body might shake. He described his seizures as starting with an odd smell and then tingly feeling in his hands and feet and then something happening to him and shaking like a fish. I had noticed that his medical record suggested that he might also have pseudoseizures. precise diagnosis of epilepsy at this time could not be confirmed. His EEG done in this hospital was unremarkable. Review of Systems 2 Review of Systems: Recent complain of abdominal pain PMFSH Past Medical History Medical History Sleep apnea Asthma DMII (diabetes mellitus, type 2) GERD (gastroesophageal reflux disease) Diverticulitis PTSD (post-traumatic stress disorder) Seizures Hypertension Surgical History Surgical History Hx of lithotripsy Hx of elbow surgery Hx of appendectomy Hx of umbilical hernia repair Hx of laparoscopy Social History Social History Household Members: Spouse Housing: House Unable to assess alcohol history related to: Unknown Alcohol intake: never Patient Tobacco Use Status: Former Tobacco user Smoked in Last 30 Days: No Patient Interested in Nicotine Replacement: No Patient Given Instructions on How to Stop Smoking: No Second Hand Smoke Exposure: No Use of substances other than those prescribed or required for medical reasons: Yes Substance Use Type: Other Substance Use Type Other:: THC drops Currently Displaying Signs/Symptoms of Drug Intoxication Withdrawal: No Any prior treatment program specific to substance use: No Have you been hit, kicked, punched, or otherwise hurt by someone within the past year? If so, by whom?: No Do you feel safe in your current relationship?: Yes Is there a partner from a previous relationship who is making you feel unsafe now?: No Advance Directives: No Advance Directives Information Provided: Yes Advance Directives on File: No Do you have a plan to hurt others: No Plan Recently lost weight without trying: No Eating poorly because of decreased appetite: No Nutrition Risks: No Nutritional Risk Poor oral hygiene: No service: Yes Meds Allergies Allergy/AdvReac Type Severity Reaction Status Date / Time fentanyl [FENTANYL] Allergy Severe CARDIAC Verified 11/01/24 11:19 ARREST fluconazole [From DIFLUCAN] Allergy Severe Hives Verified 11/01/24 11:19 fosphenytoin [FOSPHENYTOIN] Allergy Severe Hives Verified 11/01/24 11:19 levofloxacin [From LEVAQUIN] Allergy Severe Hives Verified 11/01/24 11:19 oxycodone [From PERCOCET] Allergy Severe Hives Verified 11/01/24 11:19 divalproex sodium Allergy Unknown Itching Verified 11/01/24 11:19 [From DEPAKOTE] hydromorphone [From Dilaudid] Allergy Hives Verified 11/02/24 18:48 Iodinated Contrast Media Allergy Anaphylaxis Verified 11/01/24 11:21 [IV Contrast Dye] levetiracetam [From Keppra] Allergy Swelling Verified 11/05/24 10:06 hydrocodone Allergy Severe Hives Uncoded 11/01/24 11:19 percocet Allergy Severe Unknown Uncoded 11/01/24 11:19 oxycodone Allergy Unknown Unknown Uncoded 11/01/24 11:19 Active Medications: Current Medications Acetaminophen (Acetaminophen 325 Mg Tablet) 650 mg PO Q6H PRN PRN Reason: Pain, Mild 1-3,fever,headache Last Admin: 11/04/24 11:10 Dose: 650 mg Albuterol Sulfate (Albuterol Sulfate 90 Mcg 8 Gm Inhaler) 2 puff INHALE Q4H PRN PRN Reason: shortness of breath or wheezing Albuterol/Ipratropium (Albuterol/Iprat 2.5/0.5mg 3 Ml Ampul.Neb) 3 ml INHALE Q4H PRN PRN Reason: Shortness Of Breath Or Wheezing Last Admin: 11/03/24 14:44 Dose: 3 ml Amlodipine Besylate (Amlodipine Besylate 5 Mg Tablet) 5 mg PO DAILY [facility]; Protocol Last Admin: 11/05/24 08:16 Dose: 5 mg Artificial Tears (Artificial Tears 15 Ml Drops) 1 drop EYE-BOTH QID PRN PRN Reason: Dry Eyes Atorvastatin Calcium (Atorvastatin Calcium 80 Mg Tablet) 80 mg PO BEDTIME [facility] Last Admin: 11/04/24 20:44 Dose: 80 mg Calcium Carbonate (Calcium Carbonate 750 Mg Tab.Chew) 750 mg PO Q4H PRN PRN Reason: Heartburn Enoxaparin Sodium (Enoxaparin Sodium 40 Mg/0.4 Ml Syringe) 40 mg SUBCUT Q24H [facility] Last Admin: 11/04/24 16:19 Dose: 40 mg Famotidine (Famotidine 20 Mg Tablet) 20 mg PO BID [facility] Last Admin: 11/05/24 08:16 Dose: 20 mg Glucose (Glucose Gel 15 Gm Gel..Gram.) 15 gm PO Q15M PRN; Protocol PRN Reason: per Hypoglycemia Standing Ord. Dextrose (D10) 250 mls @ 750 mls/hr IV Q15M PRN; Protocol PRN Reason: per Hypoglycemia Standing Ord. Insulin Human Lispro (Insulin Lispro 100 Unit/Ml 3 Ml Vial) 0 unit SUBCUT QIDACHS [facility]; Protocol Last Admin: 11/05/24 08:10 Dose: Not Given Ketotifen Fumarate (Ketotifen Fumarate 0.025% Oph 5 Ml Drpbtl) 1 drop EYE-BOTH BID PRN PRN Reason: Allergic Conjuctivitis Loratadine (Loratadine 10 Mg Tablet) 10 mg PO BEDTIME [facility] Last Admin: 11/04/24 20:44 Dose: 10 mg Lorazepam (Lorazepam 2 Mg/Ml Vial) 1 mg IVPUSH Q2H PRN PRN Reason: Seizures Magnesium Hydroxide (Milk Of Magnesia 30 Ml Oral.Susp) 30 ml PO DAILY PRN PRN Reason: Constipation Melatonin (Melatonin 3 Mg Tablet) 6 mg PO BEDTIME PRN PRN Reason: Insomnia Last Admin: 11/02/24 21:28 Dose: 6 mg Metformin HCl (Metformin Hcl 1,000 Mg Tablet) 1,000 mg PO BID [facility] Last Admin: 11/05/24 08:16 Dose: 1,000 mg Metronidazole (Metronidazole 0.75 % Gel 45 Gm Tube) 1 appl TOPICAL BID [facility] Last Admin: 11/05/24 08:16 Dose: 1 appl Morphine Sulfate (Morphine Sulfate 2 Mg/Ml Cartridge) 2 mg IVPUSH Q6H PRN; Protocol PRN Reason: Pain, Severe (Pain Scale 7-10) Last Admin: 11/04/24 11:14 Dose: 2 mg Ondansetron HCl (Ondansetron Hcl 4 Mg/2 Ml Vial) 4 mg IVPUSH Q8H PRN PRN Reason: Nausea and Vomiting Last Admin: 11/04/24 04:52 Dose: 4 mg Pantoprazole Sodium (Pantoprazole Sodium 40 Mg/10 Ml Vial) 40 mg IVPUSH BID@0630,1630 [facility] Phenobarbital (Phenobarbital 100 Mg Tablet) 100 mg PO BEDTIME [facility] Last Admin: 11/04/24 20:44 Dose: 100 mg Sodium Chloride (0.9 % Sodium Chloride Flush 3 Ml Syringe) [facility] Last Admin: 11/05/24 08:16 Dose: 3 ml Home Medications ?Medication ?Instructions ?Recorded ?Confirmed ?Last Taken ?Type metformin 500 mg tablet 1,000 mg PO BID 09/02/23 11/01/24 Unknown History amlodipine 5 mg tablet 5 mg PO DAILY 11/01/24 11/01/24 Unknown History atorvastatin 80 mg tablet 80 mg PO BEDTIME 11/01/24 11/01/24 Unknown History ipratropium 0.5 mg-albuterol 3 mg 3 ml inhalation Q4H PRN Shortness 11/01/24 11/01/24 Unknown History (2.5 mg base)/3 mL nebulization Of Breath Or Wheezing soln ketotifen fumarate 0.025 % (0.035 1 drp ophthalmic (eye) BID PRN 11/01/24 11/01/24 Unknown History %) eye drops Allergic Conjuctivitis levocetirizine 5 mg tablet 5 mg PO QPM 11/01/24 11/01/24 Unknown History metronidazole 0.75 % topical gel 1 appl topical BID 11/01/24 11/01/24 Unknown History ondansetron 4 mg disintegrating 4 mg PO Q8H PRN nausea and vomiting 11/01/24 11/01/24 Unknown History tablet peg 400-propylene glycol 0.4 %-0.3 1 drp ophthalmic (eye) QID PRN Dry 11/01/24 11/01/24 Unknown History % eye drops Eyes phenobarbital 32.4 mg tablet 32.4 mg PO BID 11/01/24 11/01/24 Unknown History sildenafil 25 mg tablet 25 mg PO DAILY PRN Sexual Activity 11/01/24 11/01/24 Unknown History Physical Exam 2 Vital Signs: Vital Signs: Last Vital Signs Temp 97.1 F 11/05/24 07:45 Pulse 79 11/05/24 07:45 Resp 16 11/05/24 07:45 BP 128/87 11/05/24 08:16 Pulse Ox 94 11/05/24 07:45 O2 Del Method Room Air 11/05/24 07:45 O2 Flow Rate 3 11/02/24 14:57 BMI result Body Mass Index 34.7 Neuro: Other: he is alert and awake with normal spontaneity of speech fluency comprehension and affect. Face is symmetrical. Visual singer are full. There is no focal weakness. Results Labs 11/02/24 09:01 11/02/24 09:01 Labs: Head CT revealed minimal cerebral atrophy. Assessment and Plan (1) Breakthrough seizure: Status: Acute Possible epilepsy though its precise nature, epileptic versus nonepileptic or combination, could not be confirmed at this time. He said that he has done well with phenobarbital 100 mg a day, which I would continue. In a patient with this type of syndrome, any other medical problem like pain cold or flu or infection could result in breakthrough episodes. Procedures Date of Service Date of Service: 11/05/24
[2024-11-05 10:21] LABS: Anion Gap 14 (12-20); Blood Urea Nitrogen 8 mg/dL (9-16); Calcium 9.5 mg/dL (8.4-10.2); Carbon Dioxide 22 mmol/L (22-29); Chloride 107 mmol/L (96-108); Creatinine Clr Calc Pharmacy 97.9; Estimated Glomerular Filt Rate > 60; Glucose Random 96 mg/dL (60-115); Magnesium 1.9 mg/dL (1.6-2.6); Potassium 4.2 mmol/L (3.3-5.1); Sodium 139 mmol/L (135-145)
[2024-11-05] MEDS: Morphine Sulfate 2 MG/ML CARTRIDGE IVPUSH ×2 (10:34→22:32)
[2024-11-05] MEDS: Pantoprazole Sodium 40 MG/10 ML VIAL IVPUSH ×2 (10:51→16:40)
[2024-11-05 11:29] LABS: Glucose, Whole Blood 109 mg/dL (60-115)
--- NOTE | 2024-11-05 11:46 | PC.NURSE ---
~0930 Rapid response called after patient found to be unresponsive. Patient appeared to be sleeping in recliner when first arrived in room but patient was not responding to verbal stimuli, previously patient had been A&Ox4 and answering all questions appropriately. At this time patient was sitting with eyes closed in recliner, non-labored breathing, but not opening eyes or answering to verbal stimuli, this RN then yelled the patients' name and patient began to open eyes but seems very confused and stated he did not know where he is. Vitals signs were taken and found to be stable, patient slowly began to come to and was able to stand and walk himself with the assist of 2 RNs back to bed. Camera placed into room as well as high fall risk bracelet and bed alarm. Patient able to tell me his name//location and situation. Per Dr. Bender heart monitor applied and pt will be transferred to [facility]
[2024-11-05 12:00] VITALS: BP 139/80; PULSE 95; RESP 16; TEMP 36.3; O2SAT 93
[2024-11-05] MEDS: PHENobarbitaL 30 MG TABLET PO (12:11)
[2024-11-05] MEDS: Acetaminophen 325 MG TABLET 650 MG PO (15:36)
[2024-11-05 15:43] VITALS: BP 154/85; PULSE 80; RESP 16; TEMP 36.6
[2024-11-05] MEDS: Barium Sulfate Oral (Berry) 450 ML ORAL.SUSP 900 ML PO (16:06)
[2024-11-05 16:29] LABS: Glucose, Whole Blood 100 mg/dL (60-115)
[2024-11-05] MEDS: Enoxaparin Sodium 40 MG/0.4 ML SYRINGE SUBCUT (16:40)
[2024-11-05] MEDS: ondansetron HCL 4 MG/2 ML VIAL IVPUSH (19:18)
[2024-11-05 19:28] VITALS: BP 102/65; PULSE 70; RESP 16; TEMP 36.3; O2SAT 93
[2024-11-05 21:37] LABS: Glucose, Whole Blood 89 mg/dL (60-115)
[2024-11-05] MEDS: LORazepam 1 MG TABLET PO (22:27)
[2024-11-05] MEDS: Loperamide HCl 2 MG CAPSULE PO (22:27)
[2024-11-05] MEDS: Loratadine 10 MG TABLET PO (23:18)
[2024-11-05] MEDS: Atorvastatin Calcium 80 MG TABLET PO (23:18)
[2024-11-06] VITALS: BP 114/65; PULSE 65; RESP 20; TEMP 37.1; O2SAT 94
[2024-11-06 04:00] VITALS: BP 109/69; PULSE 65; RESP 16; TEMP 36.8; O2SAT 91
[2024-11-06] MEDS: Pantoprazole Sodium 40 MG/10 ML VIAL IVPUSH (05:56)
[2024-11-06] MEDS: Morphine Sulfate 2 MG/ML CARTRIDGE IVPUSH (05:56)
[2024-11-06 07:47] LABS: Glucose, Whole Blood 91 mg/dL (60-115)
[2024-11-06 08:00] VITALS: BP 120/84; PULSE 87; RESP 14; TEMP 36.6; O2SAT 91
[2024-11-06] MEDS: Famotidine 20 MG TABLET PO (08:23)
[2024-11-06] MEDS: metFORMIN HCl 1,000 MG TABLET 1000 MG PO (08:23)
[2024-11-06] MEDS: amLODIPine Besylate 5 MG TABLET PO (08:23)
[2024-11-06] MEDS: 0.9 % Sodium Chloride Flush 3 ML SYRINGE IVFLUSH (08:32)
[2024-11-06] MEDS: Albuterol/Iprat 2.5/0.5MG 3 ML AMPUL.NEB INHALE (08:32)
[2024-11-06 08:36] VITALS: PULSE 82; RESP 20; O2SAT 96
[2024-11-06] MEDS: metroNIDAZOLE 0.75 % Gel 45 GM TUBE 1 APPL TOPICAL (08:55)
--- NOTE | 2024-11-06 11:42 | P.DS_ITS ---
DS: Providers Provider Date of Service: 11/06/24 Date of admission: 11/03/24 13:26 Date of discharge: 11/06/24 Primary care physician: Bere Rios NP Consults: 11/02/24 12:09 Consult to Neurology Routine Consulting Provider: Anne Madrid [facility] Reason for consultation: Back pain, seizure Has provider been notified: No 11/03/24 07:50 Consult to Urology Routine Consulting Provider: [facility] Reason for consultation: Right flank pain, radiating to testicles 11/04/24 15:19 Consult to Gastroenterology Routine Consulting Provider: Esther Odell Reason for consultation: Abdominal pain, vomitting Has provider been notified: Yes 11/05/24 09:45 Consult to Neurology Routine Consulting Provider: Neurology Lala cuellar [facility] Reason for consultation: recurrent seizure DS: Diagnosis Discharge Diagnosis (1) Nausea: Status: Acute DS: Summary Hospital Course Hospital Course: admission hpi Chief Complaint: seizure 68-year-old male with history of hypertension, hyperlipidemia, BPH, Schizoaffective d/o, history of Pseudoseizures, diagnosed diabetes mellitus presented to the ED with initial complaint of right sided flank pain since this morning and reportedly had some blood in the urine and difficulty voiding. While in ED reportedly had 2 seizures and her phenobarbital level is low. Given ativan, and Phenobarbital hospital course 68-year-old male with history of hypertension, hyperlipidemia, BPH, Schizoaffective d/o, history of Pseudoseizures, diagnosed diabetes mellitus presented to the ED with initial complaint of right sided flank pain since this morning and reportedly had some blood in the urine. While in ED reportedly had 2 seizures and her phenobarbital level is low Right flank pain etiology unclear, UA negative, CT non-obstructive stone, no hematuria. He was treated symptomatically, he was seen by urology and recommended for ultrasounds of the scrotum showed Small left varicocele. Bilateral testicle microlithiasis but no focal mass. No hydrocele. Normal arterial and venous Doppler in both testes and epididymides. The back has subsided, he then developped abdominal pain with burning and vomitting and had a repeat CT of abdomen and plevis showing 1. No obstructive or acute inflammatory changes in the gastrointestinal and genitourinary tracts. 2. Nonobstructing left nephrolithiasis. 3. Mild diverticulosis coli. He was seen by GI doctor and recommended for IV PPI and the abdominal CT. Will prescirbe oral prilosec 20 mg twice daily and to follow up with Dr. Odell Nausea and vomitting, kub negative -gi consult -CT of abdomen without contrast -IV ppi Seizure/Pseudoseizure, patient has had several episodes of seizure in the hospital, his pheobarbial level was low, a ct of the head showed no acute finging -Neuro recommends phenobarbital 100 mg at bedtime -Ativan PRN for seizure, -get phenobarbial level -eeg done result pending -additional med challenging because of multiple allergies diabetes, -sliding scale insulin -IVF if not eating HLD-statin Time Attestation Discharge Coordination Time (in mins): 45 Quality: Stroke Does the patient have a stroke diagnosis?: No Physical Exam Vital Signs: Vital Signs: Last Vital Signs Temp 97.8 F 11/06/24 08:00 Pulse 82 11/06/24 08:36 Resp 20 11/06/24 08:36 BP 120/84 11/06/24 08:00 Pulse Ox 91 L 11/06/24 08:00 O2 Del Method Room Air 11/06/24 08:00 O2 Flow Rate 3 11/02/24 14:57 BMI result Body Mass Index 34.7 General: AO X 3, no acute distress Resp: CTA bilateral CVS: S1,S2,RRR GI: +BS, NT, no distention Skin: No rash Neuro: motor grossly intact Psych: appropriate affect DS: Data Data Completed and Pending Labs on day of discharge: Laboratory Results - last 24 hr 11/05/24 11/05/24 11/06/24 16:25 21:34 07:27 POC Glucose 100 89 91 Discharge Plan Discharge Anticipated Discharge Date/Time: 11/06/24 11:36 Patient Disposition: Home, Self-Care Discharge Diagnosis: Breakthrough seizure, back pain, N/V Referrals: Bere Rios [employer] [Primary Care Provider] - 1 Week Discharge Medications: New phenobarbital 100 mg Tablet 100 mg PO BEDTIME Qty: 90 0RF Continued albuterol sulfate 90 mcg/actuation HFA aerosol inhaler 2 puff inhalation Q4-6H PRN (Reason: shortness of breath or wheezing) Qty: 6.7 0RF famotidine [Pepcid AC] 20 mg tablet 20 mg PO BID 3 Days Qty: 6 0RF Rx Instructions: Anaphylaxis metformin 500 mg Tablet 1,000 mg PO BID atorvastatin 80 mg Tablet 80 mg PO BEDTIME ipratropium-albuterol 0.5 mg-3 mg(2.5 mg base)/3 mL Solution For Nebulization 3 ml INHALATION Q4H PRN (Reason: Shortness Of Breath Or Wheezing) ketotifen fumarate 0.025 % (0.035 %) Drops 1 drp OPHTHALMIC (EYE) BID PRN (Reason: Allergic Conjuctivitis) Rx Instructions: administer at least 8 hours apart amlodipine 5 mg Tablet 5 mg PO DAILY sildenafil 25 mg Tablet 25 mg PO DAILY PRN (Reason: Sexual Activity) Rx Instructions: administer 30 minutes to 4 hours before activity metronidazole 0.75 % Gel 1 appl TOPICAL BID peg 400-propylene glycol 0.4-0.3 % Drops 1 drp OPHTHALMIC (EYE) QID PRN (Reason: Dry Eyes) levocetirizine 5 mg Tablet 5 mg PO QPM ondansetron 4 mg tablet,disintegrating 4 mg PO Q8H PRN (Reason: nausea and vomiting) Discontinued phenobarbital 32.4 mg Tablet 32.4 mg PO BID Diet: Diabetic diet Activity on Discharge: As tolerated Stand Alone Forms: Patient Portal Discharge page Print Language: Brazilian Care Plan Goals: control of seizure management of back pain Health Concerns: breakthrough seizure back pain, nausea and vomittingnow resolved Plan of Treatment: Phenobarbital dose has been increased to 100 mg at bedtime follow up with Assessment: see above
[2024-11-06 11:44] LABS: Glucose, Whole Blood 140 mg/dL (60-115)
--- NOTE | 2024-11-06 12:57 | MHC.CM.PN ---
Patient has been medically cleared for dc to home today, self care.
== END 2024-11-06 13:19 | disposition home or self-care (01) | DRG 101 ==
LOC: HO.ED 12:27 → HO.EDOVER 16:15 → HO.S3 11-02 23:38 → HO.IMC 11-05 09:59
PROVIDERS: Physician Assistant Medical; Student in an Organized Health Care Education/Training Program; Admitting Provider Internal Medicine; Emergency Provider Emergency Medicine; PCP Nurse Practitioner Family; Visit Provider Internal Medicine
DX: G40.909 Epilepsy, unspecified, not intractable, without status epilepticus (principal); E78.5 Hyperlipidemia, unspecified; N40.0 Benign prostatic hyperplasia without lower urinary tract symptoms; E11.9 Type 2 diabetes mellitus without complications; Z87.891 Personal history of nicotine dependence; Z79.84 Long term (current) use of oral hypoglycemic drugs; Z79.899 Other long term (current) drug therapy
CPT/HCPCS: 36415; 70450; 71046; 71250; 72125; 74018; 74150; 74176; 76870; 80048; 80053; 80184; 80307; 81001; 81003; 82550; 82947; 83605; 83735; 84484; 85025; 85027; 93005; 93975; 94640; 94799; 95816; 99285; J0131; J1650; J2060; J2270; J2405; J2470; J2560

== ENCOUNTER → 2024-11-01 08:20 | Outpatient (BNV) | payer OTHER, SELFPAY | PROVIDERS: PCP Nurse Practitioner Family; Visit Provider Radiology Diagnostic Radiology | DX: J98.11 Atelectasis (principal); R56.9 Unspecified convulsions; J84.9 Interstitial pulmonary disease, unspecified | CPT/HCPCS: 70450; 71046; 71250; 72125; 74176 ==

== ENCOUNTER → 2024-11-01 11:39 | Outpatient (BNV) | payer OTHER, SELFPAY | PROVIDERS: Admitting Provider Internal Medicine; Emergency Provider Emergency Medicine; PCP Nurse Practitioner Family; Visit Provider Internal Medicine Cardiovascular Disease | DX: R07.9 Chest pain, unspecified (principal) | CPT/HCPCS: 93010 ==

== ENCOUNTER → 2024-11-01 16:06 | Outpatient (BNV) | payer OTHER, SELFPAY | PROVIDERS: Admitting Provider Internal Medicine; Emergency Provider Emergency Medicine; PCP Nurse Practitioner Family; Visit Provider Internal Medicine | DX: G40.919 Epilepsy, unspecified, intractable, without status epilepticus (principal) | CPT/HCPCS: 99222; 99232; 99233; 99499 ==

== ENCOUNTER → 2024-11-01 16:06 | Outpatient (BNV) | payer OTHER, SELFPAY | PROVIDERS: Admitting Provider Internal Medicine; Emergency Provider Emergency Medicine; PCP Nurse Practitioner Family; Visit Provider Psychiatry & Neurology Neurology | DX: G40.909 Epilepsy, unspecified, not intractable, without status epilepticus (principal) | CPT/HCPCS: 99222 ==

== ENCOUNTER 2024-11-03 13:26 | Outpatient (BNV) | payer OTHER, SELFPAY | END 2024-11-04 08:40 | PROVIDERS: Admitting Provider Internal Medicine; Emergency Provider Emergency Medicine; PCP Nurse Practitioner Family; Visit Provider Radiology Diagnostic Radiology | DX: R10.9 Unspecified abdominal pain (principal); R11.2 Nausea with vomiting, unspecified | CPT/HCPCS: 74018 ==

== ENCOUNTER 2024-11-03 13:26 | Outpatient (BNV) | payer OTHER, SELFPAY | END 2024-11-03 16:36 | PROVIDERS: Admitting Provider Internal Medicine; Emergency Provider Emergency Medicine; PCP Nurse Practitioner Family; Visit Provider Radiology Diagnostic Radiology | DX: N50.811 Right testicular pain (principal) | CPT/HCPCS: 76870 ==

== ENCOUNTER 2024-11-03 13:26 | Outpatient (BNV) | payer OTHER, SELFPAY | END 2024-11-05 16:06 | PROVIDERS: Admitting Provider Internal Medicine; Emergency Provider Emergency Medicine; PCP Nurse Practitioner Family; Visit Provider Radiology Diagnostic Radiology | DX: N20.0 Calculus of kidney (principal); K57.30 Diverticulosis of large intestine without perforation or abscess without bleeding; J98.11 Atelectasis; R16.0 Hepatomegaly, not elsewhere classified | CPT/HCPCS: 74150 ==

== ENCOUNTER → 2024-11-03 13:26 | Outpatient (BNV) | payer OTHER, SELFPAY | PROVIDERS: Admitting Provider Internal Medicine; Emergency Provider Emergency Medicine; PCP Nurse Practitioner Family; Visit Provider Internal Medicine Gastroenterology | DX: R11.0 Nausea (principal) | CPT/HCPCS: 99223 ==

== ENCOUNTER → 2024-11-03 13:26 | Outpatient (BNV) | payer OTHER, SELFPAY | PROVIDERS: Admitting Provider Internal Medicine; Emergency Provider Emergency Medicine; PCP Nurse Practitioner Family; Visit Provider Urology | DX: R10.9 Unspecified abdominal pain (principal); N20.0 Calculus of kidney; N50.819 Testicular pain, unspecified | CPT/HCPCS: 99222 ==

== ENCOUNTER 2024-12-21 09:33 | Emergency (ER) | payer OTHER, SELFPAY ==
[2024-12-21 09:36] VITALS: BP 146/93; PULSE 93; RESP 18; TEMP 36.6; O2SAT 97; BMI 34.6
--- NOTE | 2024-12-21 10:07 | ED_ITS ---
HPI - General Adult General Chief complaint: General Medical Stated complaint: L Side Neck Swelling Time Seen by Provider: 12/21/24 10:05 Source: patient Mode of arrival: ambulatory Limitations: no limitations History of Present Illness ED Provider: HUAN GUERRIER PA-C HPI narrative: 69 year old male with pmhx significant for parotitis presents to the ED for eval of sudden left sided facial swelling/ pain which started 2 days ago. He states this feels similar to past episodes of parotitis. Denies fever, chills, dental pain, ear pain, sore throat, cough. He has been treated with clindamycin with good effect in the past. He was last treated with abx 2 yrs ago. Related Data Home Medications ?Medication ?Instructions ?Recorded ?Confirmed metformin 500 mg tablet 1,000 mg PO BID 09/02/23 11/01/24 amlodipine 5 mg tablet 5 mg PO DAILY 11/01/24 11/01/24 atorvastatin 80 mg tablet 80 mg PO BEDTIME 11/01/24 11/01/24 ipratropium 0.5 mg-albuterol 3 mg 3 ml inhalation Q4H PRN Shortness 11/01/24 11/01/24 (2.5 mg base)/3 mL nebulization Of Breath Or Wheezing soln ketotifen fumarate 0.025 % (0.035 1 drp ophthalmic (eye) BID PRN 11/01/24 11/01/24 %) eye drops Allergic Conjuctivitis levocetirizine 5 mg tablet 5 mg PO QPM 11/01/24 11/01/24 metronidazole 0.75 % topical gel 1 appl topical BID 11/01/24 11/01/24 ondansetron 4 mg disintegrating 4 mg PO Q8H PRN nausea and vomiting 11/01/24 11/01/24 tablet peg 400-propylene glycol 0.4 %-0.3 1 drp ophthalmic (eye) QID PRN Dry 11/01/24 11/01/24 % eye drops Eyes sildenafil 25 mg tablet 25 mg PO DAILY PRN Sexual Activity 11/01/24 11/01/24 Previous Rx's ?Medication ?Instructions ?Recorded albuterol sulfate 90 mcg/actuation 2 puff inhalation Q4-6H PRN 08/29/20 aerosol inhaler shortness of breath or wheezing #6.7 grams famotidine 20 mg tablet (Pepcid AC) 20 mg PO BID 3 days #6 tabs 03/15/21 pantoprazole 40 mg tablet,delayed 40 mg PO DAILY #60 tabs 11/06/24 release phenobarbital 100 mg tablet 100 mg PO BEDTIME #90 tabs 11/06/24 clindamycin HCl 300 mg capsule 300 mg PO QID 10 days #40 caps 12/21/24 Allergies Allergy/AdvReac Type Severity Reaction Status Date / Time fentanyl [FENTANYL] Allergy Severe CARDIAC Verified 12/21/24 09:38 ARREST fluconazole [From DIFLUCAN] Allergy Severe Hives Verified 12/21/24 09:38 fosphenytoin [FOSPHENYTOIN] Allergy Severe Hives Verified 12/21/24 09:38 levofloxacin [From LEVAQUIN] Allergy Severe Hives Verified 12/21/24 09:38 oxycodone [From PERCOCET] Allergy Severe Hives Verified 12/21/24 09:38 divalproex sodium Allergy Unknown Itching Verified 12/21/24 09:38 [From DEPAKOTE] hydromorphone [From Dilaudid] Allergy Hives Verified 12/21/24 09:38 Iodinated Contrast Media Allergy Anaphylaxis Verified 12/21/24 09:38 [IV Contrast Dye] levetiracetam [From Keppra] Allergy Swelling Verified 12/21/24 09:38 hydrocodone Allergy Severe Hives Uncoded 11/01/24 11:19 percocet Allergy Severe Unknown Uncoded 11/01/24 11:19 oxycodone Allergy Unknown Unknown Uncoded 11/01/24 11:19 Review of Systems Review of Systems: Constitutional: No fever, chills, fatigue, night sweats, weight changes ENT/Mouth: No ear pain, hearing loss, nasal congestion, sinus pain, rhinorrhea, sore throat, +left facial swelling Eyes: No eye pain, swelling, redness, vision changes, discharge Cardio: No chest pain, palpitations, ROWAN, orthopnea, peripheral edema Pulm: No SOB, cough, sputum, wheezing, dyspnea, hemoptysis GI: No nausea, vomiting, hematemesis, abdominal pain, diarrhea, constipation, hematochezia, melena : No irregular bleeding, dysuria, frequency, urgency, hesitancy, hematuria, flank pain, urinary flow changes, urinary incontinence or retention MSK: No back pain, neck pain, joint pain, myalgias Skin: No lesions, rashes Neuro: No weakness, numbness, paresthesias, LOC, dizziness, headache Psych: No anxiety/panic, depression, SI/HI, AH/VH All other systems reviewed and are negative. [facility] Past Medical History Attestation statement: The following information was validated with the patient. Source: old records reviewed and nursing notes reviewed Medical History Seizure disorder Sleep apnea Asthma DMII (diabetes mellitus, type 2) GERD (gastroesophageal reflux disease) Diverticulitis PTSD (post-traumatic stress disorder) Seizures Hypertension Surgical History Hx of lithotripsy Hx of elbow surgery Hx of appendectomy Hx of umbilical hernia repair Hx of laparoscopy Social History Social History Household Members: Spouse Housing: House Unable to assess alcohol history related to: Unknown Alcohol intake: never Patient Tobacco Use Status: Former Tobacco user Second Hand Smoke Exposure: No Substance Use Type: Other Advance Directives: No Advance Directives Information Provided: Yes Do you have a plan to hurt others: No Plan service: Yes Physical Exam ED Vital Signs: Vital Signs - 24 hr 12/21/24 09:36 12/21/24 10:17 Temperature 97.9 F 97.9 F Pulse Rate 93 93 Respiratory Rate 18 18 Blood Pressure 146/93 H 146/93 H Pulse Oximetry 97 97 Oxygen Delivery Method Room Air Room Air BMI result Body Mass Index 34.6 Hypertensive General: Well appearing, in no acute distress. Skin: Warm, dry, intact. No rashes or lesions. Head: Normocephalic, atraumatic. EENT: + swelling to left preauricular region over parotid gland, TTP. No trismus. No pain on manipulation of left pinna or tragus. No mastoid tenderness. Left EAC without erythema, edema or discharge. TM intact without erythema, effusion, or bulging. No mastoid tenderness. No fluctuance. No protrusion of the auricle. Dentition intact. Posterior oropharynx without erythema or edema, no tonsillar exudates or masses. Uvula midline. Controlling secretions, speaking complete sentences. Neck: Supple without LAD Cardiac: Chest wall symmetric. RRR. Lungs: Normal respiratory effort without accessory muscle use. Airway patent, no stridor. CTA bilaterally. No rales, rhonchi, or wheezes.? Neuro: AOx3. Normal speech. Ambulating with steady gait Course Course Course Narrative: Exam consistent with parotitis. Patient was responsive to clindamycin in the past. Will treat with 10 days of clindamycin. Advised sour candies. Patient has remained stable throughout ED visit today. Discussed worrisome signs and symptoms and when to return to the ED. All questions answered at this time. Patient is agreeable with disposition and stable for discharge. Medical Decision Making Medical Decision Making MDM Narrative: 69 year old male with pmhx significant for parotitis presents to the ED for eval of sudden left sided facial swelling/ pain which started 2 days ago. Patient is hypertensive, vitals are otherwise WNL. He is nontoxic-appearing and in no acute distress. On exam, there is swelling to left preauricular region over parotid gland, TTP. No trismus. No pain on manipulation of left pinna or tragus. No mastoid tenderness. Left EAC without erythema, edema or discharge. TM intact without erythema, effusion, or bulging. No mastoid tenderness. No fluctuance. No protrusion of the auricle. Dentition intact. Posterior oropharynx WNL. Airway patent, no stridor, no angioedema. Differential diagnosis includes sialadenitis, parotitis. I considered cellulitis however no wound, no erythema/warmth. Presentation not consistent with mono, strep throat. Unlikely otitis media, otitis externa, malignant otitis externa or mastoiditis. Unlikely Max's angina, dental abscess or infection. Plan for disposition. Differential Diagnosis Differential Diagnoses: The differential diagnosis associated with the presentation includes as above. Admission/Observation not indicated. Independent Historian Clinical information obtained from an independent historian. History obtained from or confirmed by: Spouse External Record Review External record reviewed: Inpatient record Prescription Management I considered prescription management with: Antibiotic (Clindamycin) Chronic Conditions Patient?s care impacted by: Other (Parotitis) Social Determinants Patient?s care significantly limited by Social Determinants of Health including: Other Social Determinant of Health Critical Care Time Critical Care Time Critical Care Time: No Discharge Plan Discharge Clinical Impression: Acute parotitis Patient Disposition: Home, Self-Care Instructions: Sialoadenitis (ED) Additional Instructions: Clindamycin is an antibiotic that has been sent to your pharmacy. Take this as prescribed. Suck on sour candies. Follow up with PCP. Return with new or worsening symtpoms. In the case of an emergency call 911. Prescriptions: New clindamycin HCl 300 mg capsule 300 mg PO QID 10 Days Qty: 40 0RF No Action albuterol sulfate 90 mcg/actuation HFA aerosol inhaler 2 puff inhalation Q4-6H PRN (Reason: shortness of breath or wheezing) Qty: 6.7 0RF famotidine [Pepcid AC] 20 mg tablet 20 mg PO BID 3 Days Qty: 6 0RF Rx Instructions: Anaphylaxis metformin 500 mg Tablet 1,000 mg PO BID atorvastatin 80 mg Tablet 80 mg PO BEDTIME ipratropium-albuterol 0.5 mg-3 mg(2.5 mg base)/3 mL Solution For Nebulization 3 ml INHALATION Q4H PRN (Reason: Shortness Of Breath Or Wheezing) ketotifen fumarate 0.025 % (0.035 %) Drops 1 drp OPHTHALMIC (EYE) BID PRN (Reason: Allergic Conjuctivitis) Rx Instructions: administer at least 8 hours apart amlodipine 5 mg Tablet 5 mg PO DAILY sildenafil 25 mg Tablet 25 mg PO DAILY PRN (Reason: Sexual Activity) Rx Instructions: administer 30 minutes to 4 hours before activity metronidazole 0.75 % Gel 1 appl TOPICAL BID peg 400-propylene glycol 0.4-0.3 % Drops 1 drp OPHTHALMIC (EYE) QID PRN (Reason: Dry Eyes) levocetirizine 5 mg Tablet 5 mg PO QPM ondansetron 4 mg tablet,disintegrating 4 mg PO Q8H PRN (Reason: nausea and vomiting) phenobarbital 100 mg Tablet 100 mg PO BEDTIME Qty: 90 0RF pantoprazole 40 mg tablet,delayed release (DR/EC) 40 mg PO DAILY Qty: 60 0RF Referrals: Bere Rios CALCIMINER [Primary Care Provider] - Interventions: ED Discharge Assessment Last Done: 12/21/24 10:17 Discharge Date/Time: 12/21/24 10:18 Print Language: Faroese
[2024-12-21 10:17] VITALS: BP 146/93; PULSE 93; RESP 18; TEMP 36.6; O2SAT 97
--- OUTSIDE RECORDS SUMMARY | 2024-12-21 11:55 | XMS_ITS ---
Author Name [facility] [place] [facility] [place] Organization [facility] [facility] [place] Address [address] [place] [address] Care Team Providers Care Director Of Retail Analytics Name Role Phone ELIZABET ROBINS Primary Care [...] Paul [facility] CE ORGANIZAT ION COIA [facility] AC Apr 18, 2018 [id number] WILLISEDILBERTOZA SPOUSE ANTHEM BCBS OF [place] (BLUECARD) HEALTH MAINTENAN CE ORGANIZAT ION MIIA [facility] Apr 18, 2018 [phone] WILLIS,EDILBERTO SOTELOZA SPOUSE BCBS [facility] CE ORGANIZ [facility] SHARE ACTIV E Apr 18, 2018 [id number] WILLIS,MAR JUDITH SPOUSE BCBS OF [facility] CE ORGANIZAT ION COIA [facility] Apr 18, 2018 [id number] [phone] WILLIS,MAR JUDITH PATIENT BCBS OF [facility] CE ORGANIZAT ION BRENDA MCCABE [facility] Apr 18, 2018 [id number] WILLIS,MAR JUDITH SPOUSE [place] OF [place] PREFERRED PROVIDER ORGANIZAT ION (PPO) [facility]DA [facility] AC Apr 18, 2018 [id number] WILLIS,MAR JUDITH SPOUSE BCBS OF [facility] CE ORGANIZAT ION BRENDA MCCABE [facility] ACT Apr 18, 2018 [id number] WILLIS,MAR JUDITH SPOUSE BCBS OF [facility] CE ORGANIZ [facility]ENDA [facility] AC Apr 18, 2018 [id number] [phone] WILLIS,MAR JUDITH SPOUSE [place] PRESCRIPT ION RX Oct 19, 2022 [id number] WILLIS,MAR JUDITH SPOUSE [place] PRESCRIPT ION RX22M A Oct 19, 2022 RX22MA [id number] WILLIS,LAVELLE AEL PATIENT [place] PRESCRIPT ION RX22M B Oct 19, 2022 RX22MB [id number] WILLIS,LAVELLE AEL PATIENT [place] PRESCRIPT ION [place] OF [place] Oct 19, 2022 RX22MA [id number] [phone] WILLIS, SPOUSE [place] PRESCRIPT ION BRENDA MCCABE [facility] AC Oct 19, 2022 [phone] WILLIS,LAVELLE AEL SPOUSE [place] PRESCRIPT ION [facility] Oct 19, 2022 [phone] WILLIS,MAR JUDITH SPOUSE [place] ([id number]) PRESCRIPT ION [place] Oct 19, 2022 [id number] [phone] WILLIS,MAR JUDITH SPOUSE [place] ([facility] CE ORGANIZAT ION [facility] AC Apr 18, 2018 [id number] WILLISEDILBERTO SPOUSE [employer] ([id number]) PRESCRIPT ION Apr 18, 2018 L4TA [id number] WILLISEDILBERTO SPOUSE [employer] ([id number]) PRESCRIPT ION Apr 18, 2018 L4TA [id number] WILLISEDILBERTO SPOUSE [employer] ([id number]) PRESCRIPT ION L4TA* Apr 18, 2018 L4TA [phone] [id number] WILLISEDILBERTO SPOUSE [employer] ([id number]) PRESCRIPT ION L4TA Apr 18, 2018 L4TA [id number] WILLISEDILBERTO Lynn SPOUSE [employer] PRESCRIPT ION [place] Apr 18, 2020 L4TA [id number] [phone] WILLISEDILBERTO SPOUSE [place] [employer] ([facility]) [facility] CE ORGANIZAT ION W/OUT OF NETWORK BENEFITS [facility] ACT Apr 18, 2018 [id number] EDILBERTO PEDRO SPOUSE [place] [facility] CE ORGANIZAT ION [facility] AC Apr 18, 2018 [id number] EDILBERTO PEDRO SPOUSE MEDICARE (WNR) MEDICARE () PART A Mar 19, 1990 PART A [id number] [phone] WILLISLAVELLE AEL PATIENT MEDICARE (WNR) MEDICARE () PART A Mar 19, 1990 PART A [id number] [phone] WILLIS,LAVELLE AEL PATIENT MEDICARE (WNR) MEDICARE (M) PART A Mar 19, 1990 PART A [id number] WILLIS,LAVELLE AEL PATIENT MEDICARE (WNR) MEDICARE (M) PART A Mar 19, 1990 PART A [id number] [phone] WILLIS,LAVELLE AEL PATIENT MEDICARE (WNR) MEDICARE (M) PART A Mar 19, 1990 PART A [id number] WILLISLAVELLE AEL PATIENT MEDICARE (WNR) MEDICARE (M) PART A Mar 19, 1990 PART A [id number] WILLIS,LAVELLE AEL PATIENT MEDICARE (WNR) MEDICARE (M) PART A Mar 19, 1990 PART A [id number] WILLIS,LAVELLE AEL PATIENT MEDICARE (WNR) MEDICARE (M) PART A Mar 19, 1990 PART A [id number] WILLISLAVELLE AEL PATIENT MEDICARE (WNR) MEDICARE (M) PART A Mar 19, 1990 PART A [id number] WILLISLAVELLE AEL PATIENT MEDICARE (WNR) MEDICARE (M) PART A Mar 19, 1990 PART A [id number] [phone] WILLISLAVELLE AEL PATIENT MEDICARE (WNR) MEDICARE (M) PART A Mar 19, 1990 PART A [id number] WILLISLAVELLE AEL PATIENT Selected Encounter This section includes the information on record at CT for the Encounter. Date/Time Encounter Type Encounter Description Reason Provider Source Jul 08, 2024 10:30 AM OFFICE O/P EST MOD 30 MIN GENERAL INTERNAL MEDICINE ICD-10-CM R19.7 Diarrhea, unspecified ENRIQUE MACARIO [facility] Encounter Template Text not used by CT Assessments - Encounter Diagnoses This section includes the primary and secondary diagnoses documented for the Encounter. Date/Time Primary/Secondary Diagnosis Diagnosis Name Provider Source Jul 25, 2024 10:43 AM PRIMARY Diarrhea, unspecified ENRIQUE MACARIO [facility] [place] [facility] Plan of Treatment: Future Appointments (+ 6 months) and Future Tests (+/- 45 days) The Plan of Treatment section includes future care activities for the patient from all CT treatmentfacilities. This section includes future appointments and future orders which are active, pending or scheduled. Future Appointments This section includes appointments that were scheduled to occur 6 months from the date of the Encounter, up to a maximum of 20 appointments. The data comes from all CT treatment facilities. Appointment Date/Time Appointment Type Appointme nt Facility Name Jul 13, 2024 09:30 AM AMBULATORY [facility] MEDICINE [facility] [place] [facility] Aug 12, 2024 09:30 AM AMBULATORY - MEDICINE [facility] [place] [facility] Aug 22, 2024 09:00 AM AMBULATORY - MEDICINE [facility] [place] [facility] Sep 21, 2024 09:00 AM AMBULATORY - MEDICINE [facility] [place] [facility] Sep 21, 2024 10:00 AM AMBULATORY - MEDICINE [facility] [place] [facility] Nov 09, 2024 11:30 AM AMBULATORY - MEDICINE [facility] [place] [facility] Nov 28, 2024 09:30 AM AMBULATORY - MEDICINE [facility] [place] [facility] Dec 02, 2024 08:30 AM AMBULATORY - MEDICINE [facility] [place] [facility] Dec 15, 2024 10:30 AM AMBULATORY - MEDICINE [facility] [place] [facility] Dec 16, 2024 10:20 AM AMBULATORY - MEDICINE [facility] C [facility] [place] [facility] Social History: Smoking Status (Most current) [...] took place. Date/Time Current Smoking Status Comment [facility] Nov 27, 2023 11:00 AM VA-TOBACCO FORMER USER CT [facility] [place] [facility] Tobacco Use History This section includes a history of the smoking, or tobacco-related health factors, that were collected on or before the date of the Encounter. The data comes from the CT facility where the Encounter took place. Date/Time Smoking Status/Tobac co Use Comment Facility Nov 27, 2023 11:00 AM VA-TOBACCO QUIT 15 YRS OR MORE [facility] [place] [facility] Dec 02, 2022 08:00 AM VA-TOBACCO FORMER USER [facility] [place] [facility] Dec 02, 2022 08:00 AM VA-TOBACCO QUIT 15 YRS OR MORE [facility] Nov 05, 2021 10:30 AM VA-TOBACCO FORMER USER [facility] Nov 05, 2021 10:30 AM VA-TOBACCO QUIT 1 TO < 5 YRS [facility] Sep 14, 2020 02:00 PM VA-TOBACCO FORMER USER [facility] Sep 14, 2020 02:00 PM VA-TOBACCO QUIT 5 TO < 15 YRS [facility] Jan 22, 2018 03:40 PM QUIT TOBACCO USE > 7 YEARS AGO [facility] Jun 04, 2016 02:01 PM CURRENT SMOKER been smoking pass 20 yrs [facility] Jun 04, 2016 02:01 PM V1-PT DECLINES REF TO TOBACCO CESS PRGM [facility] Jun 04, 2016 02:01 PM V1-PT THINKING ABOUT QUIT TOBACCO USE [facility] Jul 18, 2014 03:31 PM V1-PT DECLINES REF TO TOBACCO CESS PRGM [facility] Jul 18, 2014 03:31 PM V1-PT DECLINES TOBACCO CESSATION MEDS [facility] Jul 18, 2014 03:31 PM V1-PT NOT INTERESTED IN QUIT TOBACCO USE [facility] Jan 09, 2014 10:43 AM CURRENT SMOKER pt smokes 1 pk of cigarettes per day. [facility] Jan 09, 2014 10:43 AM V1-PT THINKING ABOUT QUIT TOBACCO USE [facility] Aug 28, 2003 10:47 AM CURRENT SMOKER one pack q 6 days - he has cut down from 3 PPD. He is in the process of quitting [facility] Encounter Notes: All associated encounter notes This section contains the clinical notes associated to the Encounter. Date/Time Encounter Note(s) Provider Source Jul 11, 2024 08:23 AM ADDENDUM: LOCAL TITLE: Addendum STANDARD TITLE: ADDENDUM DATE OF NOTE: JUL 11, 2024@08:23:33 ENTRY DATE: JUL 11, 2024@08:23:34 AUTHOR: MARCIA ZENDEJAS COSIGNER: URGENCY: STATUS: COMPLETED Please offer Vet a PCP visit for post hospital DC f/u /gaetano/ Marcia Zendejas, builder beam Staff Nurse Signed: 07/11/2024 08:23 Receipt Acknowledged By: 07/11/2024 08:42 /gaetano/ THANH LUCAS Advanced Manager Science --- Original Document --- 07/08/24 TELE EMERGENCY [...] obtained as follows: Patient's current address [address], [place] Patient's Phone Number:PATIENT PHONE - PHONE NUMBER [CELLULAR] - NONE FOUND Primary NOK: KATIE PEDRO Relation: [address] [place], [place] [address] Secondary NOK: ROBB PEDROAYAAN Relation: S[address] [facility] [place], [place] [address] Subjective: Mr. Pedro is a 68 year old M who presents to [facility] with c/o diarrhea x3 days. Recently hospitalized [...] neuropathy due to type 2 diabetes mellitus ([facility] 7714113227641) J30.2 Seasonal allergic rhinitis ([facility] 063954767) K75.81 Nonalcoholic steatohepatitis ([facility] 275140052) F19.21 History of substance abuse ([facility] 318473097) E66.9 Obesity ([facility] 413609784) E11.9 Diabetes mellitus type 2 ([facility] 39779936) R94.5 Elevated liver enzymes level ([facility] 051944612) G47.30 Sleep apnea ([facility] 13046707) I10. 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 Rosacea ([facility] 027145362) I82.622 Deep venous thrombosis of upper extremity ([facility] 603732470) N20.0 Nephrolithiasis ([facility] 09909577) E78.5 Hyperlipidemia ([facility] 10877410) N40.1 Lower urinary tract symptoms due to benign prostatic hypertrophy ([facility] [id number]) V16.42 Family history of prostate cancer ([facility] 857396642) F25.9 Schizoaffective disorder ([facility] 35012865) F10.21 Alcohol dependence ([facility] 09323690) 523.8 Periodontal Disease NEC (ICD-9-CM 523.8) 530.81 GERD (ICD-9-CM 530.81) R20.2 Facial paraesthesia ([facility] 75225909) 367.9 REFRACTION DISORDER NOS (ICD-9-CM 367.9) ALLERGIES/ADR: [...] Time spent in telephone/video visit: Minutes: 30 /es/ ENRIQUE RUFF,LINE CONTROLLERAleksanderC NU 1 Clinical Contact Center Signed: 07/08/2024 11:34 Receipt Acknowledged By: * AWAITING SIGNATURE * ELIZABET ROBINS * AWAITING SIGNATURE * DEBBIE GORMAN 07/11/2024 ADDENDUM STATUS: COMPLETED Appt scheduled for 07/13. /gaetano/ THANH LUCAS Advanced Manager Science Signed: 07/11/2024 08:42 [facility] [place] [facility] Jul 08, 2024 10:38 AM TELEHEALTH [...] obtained as follows: Patient's current address [address], [place] [address] Patient's Phone Number:PATIENT PHONE - PHONE NUMBER [CELLULAR] - NONE FOUND Primary NOK: KATIE PEDRO Relation: [address] [place], [place] [address] Secondary NOK: L[address] PEDRO Relation: SISTER [address] [facility] [place], [place] [address] Subjective: Mr. Pedro is a 68 year old M [place] who presents to [facility] with c/o diarrhea x3 days. Recently hospitalized [...] neuropathy due to type 2 diabetes mellitus ([facility] [id number]) J30.2 Seasonal allergic rhinitis ([facility] 629103659) K75.81 Nonalcoholic steatohepatitis ([facility] 516787303) F19.21 History of substance abuse ([facility] 830706486) E66.9 Obesity ([facility] 592447864) E11.9 Diabetes mellitus type 2 ([facility] 76287258) R94.5 Elevated liver enzymes level ([facility] 958213765) G47.30 Sleep apnea ([facility] 55889511) I10. 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 Rosacea ([facility] 406985027) I82.622 Deep venous thrombosis of upper extremity ([facility] 002778137) N20.0 Nephrolithiasis ([facility] 48862230) E78.5 Hyperlipidemia ([facility] 19233448) N40.1 Lower urinary tract symptoms due to benign prostatic hypertrophy ([facility] 58849607769624) V16.42 Family history of prostate cancer ([facility] 099310162) F25.9 Schizoaffective disorder ([facility] 77184352) F10.21 Alcohol dependence ([facility] 91456538) 523.8 Periodontal Disease NEC (ICD-9-CM 523.8) 530.81 GERD (ICD-9-CM 530.81) R20.2 Facial paraesthesia ([facility] 29040585) 367.9 REFRACTION DISORDER NOS (ICD-9-CM 367.9) ALLERGIES/ADR: [...] and symptoms to seek UC for with [place]. - Alerting PACT to follow up with [place] post hospital DC. Issue resolved with Tele Urgent Care appointment Discharge instructions were reviewed Patient verbalizes understanding of the care plan Time spent in telephone/video visit: Minutes: 30 /es/ ENRIQUE HOFFMAN MSN,LINE CONTROLLER-C VISN 1 Clinical Contact Center Signed: 07/08/2024 11:34 Receipt Acknowledged By: 07/15/2024 11:13 /es/ CIERRA GREGORY Nurse Practitioner 07/11/2024 10:08 /es/ DEBBIE GORMAN, MSN, RN, CNL PRIMARY CARE TEAM NURSE 07/11/2024 ADDENDUM STATUS: COMPLETED Please offer Vet a PCP visit for post hospital DC f/u /es/ Marcia Zendejas, builder beam Staff Nurse Signed: 07/11/2024 08:23 Receipt Acknowledged By: 07/11/2024 08:42 /gaetano/ THANH LUCAS Advanced Manager Science 07/11/2024 ADDENDUM STATUS: COMPLETED Appt scheduled for 07/13. /gaetano/ THANH LUCAS Advanced Manager Science Signed: 07/11/2024 08:42 [facility]
--- OUTSIDE RECORDS SUMMARY | 2024-12-21 11:55 | XMS_ITS ---
Author Name Department of [place] Organization Department of [place] Address [address] [place] [address] Care Team Providers Care Pin Ball Machine Mechanic Name Role Phone ELIZABET ROBINS Primary [...] Paul's Name Patient's Relationship to Policy Paul [facility] CE ORGANIZAT ION [facility] AC Apr 18, 2018 [id number] [phone] WILLIS,EDILBERTO SOTELOZA SPOUSE ANTHEM BCBS OF [place] ([place]ARD) HEALTH MAINTENAN CE ORGANIZAT ION [facility]A [facility] Apr 18, 2018 [id number] [phone] WILLIS,MAR JUDITH SPOUSE BCBS [facility] MAINTENAN CE ORGANIZ [facility] SHARE ACTIV E Apr 18, 2018 [id number] [phone] WILLIS,MAR JUDITH SPOUSE BCBS OF [facility] MAINTENAN CE ORGANIZAT ION M[facility]A [facility] Apr 18, 2018 [id number] WILLIS,MAR JUDITH PATIENT BCBS OF [facility] CE ORGANIZAT ION BRENDA MCCABE [facility] Apr 18, 2018 [id number] WILLIS,MAR JUDITH SPOUSE BCBS OF [place] PREFERRED PROVIDER ORGANIZAT ION (PPO) BR[facility]DA [facility] AC Apr 18, 2018 [id number] WILLIS,MAR JUDITH SPOUSE BCBS OF [facility] CE ORGANIZAT ION BRENDA [facility] ACT Apr 18, 2018 [id number] WILLIS,EDILBERTO JUDITH SPOUSE BCBS OF [facility] CE ORGANIZ BRENDA MCCABE RSD AC Apr 18, 2018 [id number] [phone] WILLIS,MAR JUDITH SPOUSE [place] PRESCRIPT ION RX Oct 19, 2022 [id number] WILLIS,EDILBERTO JUDITH SPOUSE [place] PRESCRIPT ION RX22M A Oct 19, 2022 RX22MA [id number] WILLIS,LAVELLE AEL PATIENT [place] PRESCRIPT ION RX22M B Oct 19, 2022 RX22MB [id number] WILLIS,LAVELLE AEL PATIENT [place] PRESCRIPT ION [place] OF [place] Oct 19, 2022 [id number] WILLIS, SPOUSE [place] PRESCRIPT ION [facility] Oct 19, 2022 RX22MB [id number] [phone] WILLIS,MAR JUDITH SPOUSE [place] PRESCRIPT ION BR[facility]DA MCCAB[facility] AC Oct 19, 2022 RX22MB [id number] [phone] WILLIS,LAVELLE AEL SPOUSE [place] ([id number]) PRESCRIPT ION [place] Oct 19, 2022 [id number] [phone] WILLIS,MAR JUDITH SPOUSE [place] BCBS ([facility] CE ORGANIZAT ION [facility] RSD AC Apr 18, 2018 [id number] WILLISEDILBERTO SPOUSE EXPRESS S[employer]IPTS ([id number]) PRESCRIPT ION Apr 18, 2018 L4TA [id number] WILLISEDILBERTO SPOUSE [employer] ([id number]) PRESCRIPT ION Apr 18, 2018 L4TA [id number] WILLISEDILBERTO SPOUSE [employer] ([id number]) PRESCRIPT ION L4TA* Apr 18, 2018 L4TA [id number] WILLISEDILBERTO SPOUSE [employer] ([id number]) PRESCRIPT ION L4TA Apr 18, 2018 L4TA [id number] WILLISEDILBERTO Lynn SPOUSE EXPRESS SCRIPTS-MINOR BROGATION PRESCRIPT ION [place] OF [place] Apr 18, 2020 L4TA [id number] WILLIS,EDILBERTO WONG SPOUSE [employer] ([facility]) [facility] CE ORGANIZAT ION W/OUT OF NETWORK BENEFITS [facility] RSD ACT Apr 18, 2018 [id number] EDILBERTO PEDRO SPOUSE [place] BCBS [facility] (BLUECARD) [facility] CE ORGANIZAT ION [facility] RSD AC Apr 18, 2018 [id number] EDILBERTO PEDRO SPOUSE MEDICARE (WNR) MEDICARE () PART A Mar 19, 1990 PART A [id number] WILLISLAVELLE AEL PATIENT MEDICARE (WNR) MEDICARE (M) PART A Mar 19, 1990 PART A [id number] [phone] WILLIS,LAVELLE AEL PATIENT MEDICARE (WNR) MEDICARE (M) PART A Mar 19, 1990 PART A [id number] [phone] WILLIS,LAVELLE AEL PATIENT MEDICARE (WNR) MEDICARE (M) PART A Mar 19, 1990 PART A [id number] [phone] WILLIS,LAVELLE AEL PATIENT MEDICARE (WNR) MEDICARE (M) PART A Mar 19, 1990 PART A [id number] WILLIS,LAVELLE AEL PATIENT MEDICARE (WNR) MEDICARE (M) PART A Mar 19, 1990 PART A [id number] [phone] WILLIS,LAVELLE AEL PATIENT MEDICARE (WNR) MEDICARE (M) PART A Mar 19, 1990 PART A [id number] [phone] WILLIS,LAVELLE AEL PATIENT MEDICARE (WNR) MEDICARE (M) PART A Mar 19, 1990 PART A [id number] WILLIS,LAVELLE AEL PATIENT MEDICARE (WNR) MEDICARE (M) PART A Mar 19, 1990 PART A [id number] WILLIS,LAVELLE AEL PATIENT MEDICARE (WNR) MEDICARE (M) PART A Mar 19, 1990 PART A [id number] WILLISLAVELLE AEL PATIENT MEDICARE (WNR) MEDICARE (M) PART A Mar 19, 1990 PART A [id number] [phone] WILLIS,LAVELLE AEL PATIENT Selected Encounter This section includes the information on record at DC for the Encounter. Date/Time Encounter Type Encounter Description Reason Provider Source Jan 13, 2024 03:00 PM INTRM OPH EXAM EST PATIENT OPTOMETRY ICD-10-CM H54.62 Unqualified visual loss, left eye, normal vision right eye DHAVAL CRAIG [facility] Encounter Template Text not used by DC Assessments - Encounter Diagnoses This section includes the primary and secondary diagnoses documented for the Encounter. Date/Time Primary/Secondary Diagnosis Diagnosis Name Provider Source Feb 09, 2024 04:21 PM PRIMARY Unqualified visual loss, left eye, normal vision right eye DHAVAL CRAIG [facility] [place] [facility] Feb 09, 2024 04:21 PM SECONDARY Combined forms of age-related cataract, bilateral DHAVAL CRAIG [facility] [place] [facility] Feb 09, 2024 04:21 PM SECONDARY Dry eye syndrome of bilateral lacrimal glands DHAVAL CRAIG [facility] [place] [facility] Plan of Treatment: Future Appointments (+ 6 months) and Future Tests (+/- 45 days) The Plan of Treatment section includes future care activities for the patient [facility] [place] [facility]. This section includes future appointments and [...] 04, 2024 08:00 AM AMBULATORY - MEDICINE [place] [facility] [facility] February 17, 2024 12:00 PM AMBULATORY - MEDICINE [place] [facility] [place] [facility] Mar 28, 2024 10:00 AM AMBULATORY - NONE [place] [facility] [place] [facility] Mar 28, 2024 10:30 AM AMBULATORY - MEDICINE DC [facility] [place] [facility] Mar 28, 2024 01:00 PM AMBULATORY - MEDICINE [place] [facility] [place] [facility] Apr 06, 2024 01:30 PM AMBULATORY - MEDICINE DC [facility] [place] [facility] May 30, 2024 08:30 AM AMBULATORY - MEDICINE DC [facility] [place] [facility] May 30, 2024 09:30 AM AMBULATORY - MEDICINE DC [facility] [place] [facility] Jun 01, 2024 10:00 AM AMBULATORY - MEDICINE DC [facility] [place] [facility] Jun 01, 2024 11:30 AM AMBULATORY - MEDICINE DC [facility] [place] [facility] Jun 28, 2024 11:30 AM AMBULATORY - MEDICINE DC [facility] [place] [facility] Jul 08, 2024 10:30 AM AMBULATORY - MEDICINE DC [facility] [place] [facility] Jul 13, 2024 09:30 AM AMBULATORY - MEDICINE DC [facility] [place] [place] [facility] Social History: Smoking Status (Most current) and [...] 27, 2023 11:00 AM [facility] Tobacco Use History This section includes a history of the smoking, or tobacco-related health factors, that were collected on or before the date of the Encounter. The data comes from the [place] facility where the Encounter took place. Date/Time Smoking Status/Tobac co Use Comment Facility Nov 27, 2023 11:00 AM VA-TOBACCO QUIT 15 YRS OR MORE [place] [facility] [place] [facility] Dec 02, 2022 08:00 AM VA-TOBACCO FORMER USER [place] CNTR [place] [facility] Dec 02, 2022 08:00 AM VA-TOBACCO QUIT 15 YRS OR MORE [facility] [place] [facility] Nov 05, 2021 10:30 AM VA-TOBACCO FORMER USER [facility] Nov 05, 2021 10:30 AM VA-TOBACCO QUIT 1 TO < 5 YRS [facility] [place] [facility] Sep 14, 2020 02:00 PM VA-TOBACCO FORMER USER DC CNTR [place] [facility] Sep 14, 2020 02:00 PM VA-TOBACCO QUIT 5 TO < 15 YRS [place] [facility] [place] [facility] Jan 22, 2018 03:40 PM QUIT TOBACCO USE > 7 YEARS AGO DC CNT [place] [facility] Jun 04, 2016 02:01 PM CURRENT SMOKER been smoking pass 20 yrs DC CNT [place] [facility] Jun 04, 2016 02:01 PM V1-PT DECLINES REF TO TOBACCO CESS PRGM DC CNTR [place] [facility] Jun 04, 2016 02:01 PM V1-PT THINKING ABOUT QUIT TOBACCO USE DC CNT [place] [facility] Jul 18, 2014 03:31 PM V1-PT DECLINES REF TO TOBACCO CESS PRGM DC CNTR [place] [facility] Jul 18, 2014 03:31 PM V1-PT DECLINES TOBACCO CESSATION MEDS [facility] Jul 18, 2014 03:31 PM V1-PT NOT INTERESTED IN QUIT TOBACCO USE [place] [facility] Jan 09, 2014 10:43 AM CURRENT SMOKER [...] problems arise. /gaetano/ DHAVAL CRAIG OD STAFF AUTO DAMAGE ADJUSTER Signed: 01/13/2024 16:13 Receipt Acknowledged By: 01/14/2024 12:59 /gaetano/ CIERRA GREGORY Nurse Practitioner DHAVAL CRAIG [facility] Jan 13, 2024 11:51 AM OPTOMETRY NOTE: [...] prostate cancer 20. Schizoaffective disorder (SNOMED CT 80923704) 21. Alcohol Dependence 22. Periodontal Disease NEC 23. GERD 24. Seizure disorder (SNOMED CT 568547992) 25. REFRACTION DISORDER NOS Active Outpatient Medications [...] needed at this time - return to [facility] in 1 year or prn 5. Hyperopia with presbyopia OU - Continue with current SRx - monitor condition Not assessed today. 5. Type II diabetes without diabetic retinopathy or macular edema OU 6. 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
--- OUTSIDE RECORDS SUMMARY | 2024-12-21 11:55 | XMS_ITS ---
Author Name Department of Veter[facility] ns Affairs [place] Organization Department of [place] Address [address] [place] [address] Care Team Providers Care Boiler Inspector Name Role Phone ELIZABET ROBINS Primary Care [...] Relationship to Policy Paul [facility] CE ORGANIZAT ION CTIA [facility] AC Apr 18, 2018 [id number] WILLISEDILBERTO SPOUSE ANTHEM BCBS OF [place] (BLUECARD) HEALTH MAINTENAN CE ORGANIZAT ION M[facility]A [facility] Apr 18, 2018 [id number] WILLIS,EDILBERTO WONG SPOUSE BCBS [facility] CE ORGANIZ [facility] SHARE ACTIV E Apr 18, 2018 [id number] WILLIS,EDILBERTO MANCIAZA SPOUSE BCBS OF [facility] CE ORGANIZAT ION MIIA [facility] Apr 18, 2018 [id number] WILLIS,MAR JUDITH PATIENT BCBS OF [facility] CE ORGANIZAT ION BRENDA MCCABE [facility] Apr 18, 2018 [id number] WILLIS,MAR JUDITH SPOUSE BCBS OF [place] PREFERRED PROVIDER ORGANIZAT ION (PPO) [facility]DA [facility] AC Apr 18, 2018 [id number] WILLIS,MAR JUDITH SPOUSE BCBS OF [facility] CE ORGANIZAT ION BRENDA MCCABE [facility] ACT Apr 18, 2018 [id number] WILLIS,MAR JUDITH SPOUSE BCBS OF [facility] CE ORGANIZ BRENDA [facility] AC Apr 18, 2018 [id number] [phone] WILLIS,MAR JUDITH SPOUSE [place] PRESCRIPT ION RX Oct 19, 2022 RX22MC [id number] WILLIS,MAR JUDITH SPOUSE CAREMARK PRESCRIPT ION RX22M A Oct 19, 2022 RX22MA [id number] WILLIS,LAVELLE AEL PATIENT CAREMARK PRESCRIPT ION RX22M B Oct 19, 2022 RX22MB [id number] WILLIS,LAVELLE AEL PATIENT [place] PRESCRIPT ION [place] Oct 19, 2022 RX22MA [id number] WILLIS, SPOUSE CAREMARK PRESCRIPT ION BRENDA MCCABE [facility] AC Oct 19, 2022 RX22MB [id number] [phone] IWLLIS,LAVELLE AEL SPOUSE [place] PRESCRIPT ION [facility] Oct 19, 2022 RX22MB [id number] [phone] WILLIS,MAR JUDITH SPOUSE [place] ([id number]) PRESCRIPT ION [place] Oct 19, 2022 RX22MB [id number] [phone] WILLIS,MAR JUDITH SPOUSE [place] BCBS ([facility] CE ORGANIZAT ION [facility] RSD AC Apr 18, 2018 [id number] WILLISEDILBERTO SPOUSE [employer] ([id number]) PRESCRIPT ION Apr 18, 2018 L4TA [id number] WILLISEDILBERTO SPOUSE [employer] ([id number]) PRESCRIPT ION Apr 18, 2018 L4TA [id number] WILLISEDILBERTO SPOUSE [employer] ([id number]) PRESCRIPT ION L4TA* Apr 18, 2018 L4TA [id number] WILLISEDILBERTO SPOUSE [employer] ([id number]) PRESCRIPT ION L4TA Apr 18, 2018 L4TA [id number] WILLISEDILBERTO Lynn SPOUSE [employer]-MINOR BROGATION PRESCRIPT ION [place] Apr 18, 2020 L4TA [id number] WILLISEDILBERTO SPOUSE [employer] ([facility]) [facility] CE ORGANIZAT ION W/OUT OF NETWORK BENEFITS [facility] RSD ACT Apr 18, 2018 [id number] EDILBERTO PEDRO SPOUSE [place] [facility] CE ORGANIZAT ION [facility] RSD AC Apr 18, 2018 [id number] EDILBERTO PEDRO SPOUSE MEDICARE (WNR) MEDICARE () PART A Mar 19, 1990 PART A [id number] WILLISLAVELLE AEL PATIENT MEDICARE (WNR) MEDICARE () PART A Mar 19, 1990 PART A [id number] [phone] WILLIS,LAVELLE AEL PATIENT MEDICARE (WNR) MEDICARE (M) PART A Mar 19, 1990 PART A [id number] WILLIS,LAVELLE AEL PATIENT MEDICARE (WNR) MEDICARE (M) PART A Mar 19, 1990 PART A [id number] WILLIS,LAVELLE AEL PATIENT MEDICARE (WNR) MEDICARE (M) PART A Mar 19, 1990 PART A [id number] WILLISLAVELLE AEL PATIENT MEDICARE (WNR) MEDICARE (M) PART A Mar 19, 1990 PART A [id number] [phone] WILLIS,LAVELLE AEL PATIENT MEDICARE (WNR) MEDICARE (M) PART A Mar 19, 1990 PART A [id number] WILLIS,LAVELLE AEL PATIENT MEDICARE (WNR) MEDICARE (M) PART A Mar 19, 1990 PART A [id number] WILLIS,LAVELLE AEL PATIENT MEDICARE (WNR) MEDICARE (M) PART A Mar 19, 1990 PART A [id number] [phone] WILLISLAVELLE AEL PATIENT MEDICARE (WNR) MEDICARE (M) PART A Mar 19, 1990 PART A [id number] WILLISLAVELLE AEL PATIENT MEDICARE (WNR) MEDICARE (M) PART A Mar 19, 1990 PART A [id number] [phone] WILLISLAVELLE AEL PATIENT Selected Encounter This section includes the information on record at [place] for the Encounter. Date/Time Encounter Type Encounter Description Reason Provider Source Mar 28, 2024 01:00 PM OFFICE O/P EST LOW 20 MIN PRIMARY CARE/MEDICINE ICD-10-CM J30.2 Other seasonal allergic rhinitis NICHELLE WEISS [facility] Encounter Template Text not used by [place] Assessments - Encounter Diagnoses This section includes the primary and secondary diagnoses documented for the Encounter. Date/Time Primary/Secondary Diagnosis Diagnosis Name Provider Source Apr 20, 2024 02:43 PM PRIMARY Other seasonal allergic rhinitis NICHELLE WEISS [facility] Apr 20, 2024 02:43 PM SECONDARY Acute bronchitis, unspecified NICHELLE WEISS [facility] Plan of Treatment: Future Appointments (+ 6 months) and Future Tests (+/- 45 days) The Plan of Treatment section includes future care activities for the patient from all [place] treatmentfacilities. This section includes future appointments and [...] - MEDICINE [facility] [place] [facility] May 30, 2024 08:30 AM AMBULATORY - MEDICINE [place] [facility] [place] [facility] May 30, 2024 09:30 AM AMBULATORY - MEDICINE [place] [facility] [place] [place] [facility] Jun 01, 2024 10:00 AM AMBULATORY - MEDICINE [place] [facility] [place] [facility] Jun 01, 2024 11:30 AM AMBULATORY - MEDICINE [place] [facility] [place] [place] [facility] Jun 28, 2024 11:30 AM AMBULATORY - MEDICINE [place] [facility] [place] [place] [facility] Jul 08, 2024 10:30 AM AMBULATORY - MEDICINE [place] [facility] [place] [place] [facility] Jul 13, 2024 09:30 AM AMBULATORY - MEDICINE [place] [facility] [place] [place] [facility] Aug 12, 2024 09:30 AM AMBULATORY - MEDICINE [place] [facility] [place] [place] [facility] Aug 22, 2024 09:00 AM AMBULATORY - MEDICINE [place] [facility] [place] [facility] Sep 21, 2024 09:00 AM AMBULATORY - MEDICINE [place] [facility] [place] [place] [facility] Sep 21, 2024 10:00 AM AMBULATORY - MEDICINE [place] C [place] [place] [facility] Vital Signs: All taken on the encounter date This section contains inpatient and outpatient Vital Signs collected on the date of the Encounter. Date/Time Temperature Pulse Blood Pressure Respiratory Rate SP02 Pain Height Weight Body Mass Index Source Mar 28, 2024 10:36 AM 99.1 122 132/97 20 97 208.1 35 [place] [facility] Social History: Smoking Status (Most current) [...] 27, 2023 11:00 AM [facility] Tobacco Use History This section includes a history of the smoking, or tobacco-related health factors, that were collected on or before the date of the Encounter. The data comes from the [place] facility where the Encounter took place. Date/Time Smoking Status/Tobac co Use Comment Facility Nov 27, 2023 11:00 AM VA-TOBACCO QUIT 15 YRS OR MORE [place] [facility] [place] [facility] Dec 02, 2022 08:00 AM VA-TOBACCO FORMER USER [place] CNT [place] [facility] Dec 02, 2022 08:00 AM VA-TOBACCO QUIT 15 YRS OR MORE [facility] [place] [facility] Nov 05, 2021 10:30 AM VA-TOBACCO [facility] Nov 05, 2021 10:30 AM VA-TOBACCO QUIT 1 TO < 5 YRS [facility] [place] [facility] Sep 14, 2020 02:00 PM [facility] [place] [facility] Sep 14, 2020 02:00 PM VA-TOBACCO QUIT 5 TO < 15 YRS [place] [facility] [place] [facility] Jan 22, 2018 03:40 PM QUIT TOBACCO USE > 7 YEARS AGO [facility] [place] [facility] Jun 04, 2016 02:01 PM CURRENT SMOKER been smoking pass 20 yrs [facility] [place] [facility] Jun 04, 2016 02:01 PM V1-PT DECLINES REF TO TOBACCO CESS PRGM [place] [facility]TR [place] [facility] Jun 04, 2016 02:01 PM V1-PT THINKING ABOUT QUIT TOBACCO USE MS CNT [place] [facility] Jul 18, 2014 03:31 PM V1-PT DECLINES REF TO TOBACCO CESS PRGM [place] [facility]TR [place] [facility] Jul 18, 2014 03:31 PM V1-PT DECLINES TOBACCO CESSATION MEDS [facility] Jul 18, 2014 03:31 PM V1-PT NOT INTERESTED IN QUIT TOBACCO USE [facility] [place] [facility] Jan 09, 2014 10:43 AM CURRENT SMOKER pt smokes 1 pk of cigarettes per day. [facility] Jan 09, 2014 10:43 AM V1-PT THINKING ABOUT QUIT TOBACCO USE [facility] Aug 28, 2003 10:47 AM CURRENT SMOKER one pack q 6 days - he has cut down from 3 PPD. He is in the process of quitting [facility] Radiology Reports: +/- 30 days [...] AM LDCT LUNG CANCER SCREENING: CHAYA PEDRO [id number] -[id number] M Exm Date: MAR 28, 2024@09:45 Req Phys: ELIZABET ROBINS Pat Loc: [facility]/NO/LCS ADMIN (Req'g Loc) Img Loc: [facility]/CT Service: Unknown [facility] , (Case 16 COMPLETE) LDCT LUNG CANCER SCREENING (CT Detailed) CPT:79395 Reason for Study: LUNG CANCER SCREENING Clinical History: QUIT SMOKING IN 2012 BASELINE LCS LDCT 03/30/2023: LUNG RADS 1 no new or concerning pulmonary mass or nodules. Plan for repeat in 12 months. Report Status: Verified Date Reported: MAR 28, 2024 Date Verified: MAR 28, 2024 Vice President Of Contracts E-Sig:/ES/RAYMOND LEAL JR Report: Study: Lung cancer [...] reviewed. Secondary computer-aided detection with post-processing from [employer] is used. The lack of intravenous contrast [...] Primary Interpreting Staff: RAYMOND LEAL JR, Radiologist (Vice President Of Contracts) /RAYMOND SHELTON JR [facility] Encounter Notes: All associated encounter notes This section contains the clinical notes associated to the Encounter. Date/Time Encounter Note(s) Provider Source Mar 28, 2024 11:19 AM PHYSICIAN EVAPORATIVE COOLER INSTALLER NOTE: LOCAL TITLE: PA NOTE STANDARD TITLE: PHYSICIAN EVAPORATIVE COOLER INSTALLER NOTE DATE OF NOTE: MAR 28, 2024@11:19 [...] with his symptoms along with nasal congestion. [place] states he has not been taking his [...] ext 11/02/2015 MARJORIE SAINI Nephrolithiasis N20.0 11/27/2023 JULIENNEELIZABET YANEZNE Hyperlipidemia E78.5 04/08/2022 MURRAY CRAIN Lower urinary tract symptoms due to 04/08/2022 MURRAY CRAIN Family history of prostate cancer V 10/17/2014 MARJORIE SAINI Schizoaffective disorder (SNOMED CT 08/31/2023 ELAINE VIERA Alcohol Dependence 303.90 07/25/2002 ERIBERTO TOLBERT Periodontal Disease NEC 523.8 08/28/2003 ERIBERTO TOLBERT GERD 530.81 08/28/2003 ERIBERTO TOLBERT Seizure disorder (SNOMED CT 3943839 12/19/2015 HUGO CALDERA REFRACTION DISORDER NOS 367.9 [...] of hypoxia or airway compromise at this time.[place] is agreeable to resuming his allergy medications. We will add DM/guaifenesin syrup along with Flonase and an extension of prednisone for the bronchial spasm. Continue with updraft nebulizer and albuterol as directed. RTC as needed. Mild tachycardia most likely due to use of albuterol. reassured. Seek emergency evaluation for any red flags such as chest pain, worsening sense of shortness of breath, fevers etc. [place] is able to verbalize understanding of plan of care. ASSESSMENT/PLAN Seasonal allergic rhinitis Acute Bronchitis, unspecified As above able to verbalize understanding of plan of care and agrees. >> MEDICATIONS Reviewed and reconciled with Yeimi /gaetano/ NICHELLE ISLAS MS,PA-C PHYSICIAN [employer] Signed: 03/28/2024 13:00 Receipt Acknowledged By: 03/28/2024 13:12 /gaetano/ CIERRA GREGORY Nurse Practitioner NICHELLE WEISS [facility]
--- OUTSIDE RECORDS SUMMARY | 2024-12-21 11:55 | XMS_ITS ---
Author Name [facility] [facility] [place] Address [address] [place] [address] Care Team Providers Care Retread Technician Name Role Phone BERE RIOS Primary Care [...] Paul [facility] CE ORGANIZAT ION AKIA [facility] AC Apr 18, 2018 [id number] [phone] WILLISEDILBERTOZA SPOUSE ANTHEM [place] OF [place] ([place] HEALTH [facility]IN[facility]NA[facility] CE ORGANIZAT ION [facility] Apr 18, 2018 [id number] WILLIS,EDILBERTO MANCIAZA SPOUSE BCBS [facility] CE ORGANIZ [facility] SHARE ACTIV E Apr 18, 2018 [id number] WILLIS,MAR JUDITH SPOUSE BCBS OF [facility] CE ORGANIZAT ION AKIA [facility] Apr 18, 2018 [id number] [phone] WILLIS,MAR JUDITH PATIENT BCBS OF [facility] CE ORGANIZAT ION BRENDA MCCABE [facility] Apr 18, 2018 [id number] WILLIS,MAR JUDITH SPOUSE [place] OF [place] PREFERRED PROVIDER ORGANIZAT ION (PPO) [facility] AC Apr 18, 2018 [id number] WILLIS,MAR JUDTIH SPOUSE BCBS OF [facility] CE ORGANIZAT ION BRENDA MCCABE [facility] ACT Apr 18, 2018 [id number] WILLIS,MAR JUDITH SPOUSE BCBS OF [facility] CE ORGANIZ [facility] AC Apr 18, 2018 [id number] [phone] WILLIS,MAR JUDITH SPOUSE [place] PRESCRIPT ION [facility] Oct 19, 2022 [phone] WILLIS,MAR JUDITH SPOUSE [place] PRESCRIPT ION RX22M A Oct 19, 2022 [id number] WILLIS,LAVELLE AEL PATIENT [place] PRESCRIPT ION RX22M B Oct 19, 2022 [id number] WILLIS,LAVELLE AEL PATIENT [place] PRESCRIPT ION [place] OF [place] Oct 19, 2022 [id number] [phone] WILLIS, SPOUSE [place] PRESCRIPT ION BRENDA MCCABE [facility] AC Oct 19, 2022 [id number] [phone] WILLIS,LAVELLE AEL SPOUSE [place] PRESCRIPT ION RX Oct 19, 2022 [id number] [phone] WILLIS,MAR JUDITH SPOUSE [place] ([id number]) PRESCRIPT ION [place] Oct 19, 2022 [id number] [phone] WILLIS,MAR JUDITH SPOUSE [place] BC[place] ([facility] CE ORGANIZAT ION [facility] RSD AC Apr 18, 2018 [id number] [phone] WILLISEDILBERTO SPOUSE [employer] ([id number]) PRESCRIPT ION Apr 18, 2018 L4TA [id number] WILLISEDILBERTO SPOUSE [employer] ([id number]) PRESCRIPT ION L4TA Apr 18, 2018 L4TA [id number] WILLIS,EDILBERTO WONG SPOUSE [employer] ([id number]) PRESCRIPT ION L4TA* Apr 18, 2018 L4TA [id number] WILLISEDILBERTO SPOUSE [employer] ([id number]) PRESCRIPT ION Apr 18, 2018 L4TA [id number] WILLISEDILBERTO SPOUSE [employer]-MINOR BROGATION PRESCRIPT ION [place] Apr 18, 2020 L4TA [id number] [phone] WILLIS,EDILBERTO WONG SPOUSE [place] [employer] ([facility] CE ORGANIZAT ION W/OUT OF NETWORK BENEFITS [facility] RSD ACT Apr 18, 2018 [phone] EDILBERTO PEDRO SPOUSE [facility] CE ORGANIZAT ION [facility] R[facility] AC Apr 18, 2018 [id number] EDILBERTO PEDRO SPOUSE MEDICARE (WNR) MEDICARE () PART A Mar 19, 1990 PART A [id number] WILLIS,RAF AEL PATIENT MEDICARE (WN) MEDICARE () PART A Mar 19, 1990 PART A [id number] [phone] WILLISLAVELLE AEL PATIENT MEDICARE (WNR) MEDICARE () PART A Mar 19, 1990 PART A [id number] WILLIS,LAVELLE AEL PATIENT MEDICARE (WNR) MEDICARE () PART A Mar 19, 1990 PART A [id number] WILLIS,LAVELLE AEL PATIENT MEDICARE (WNR) MEDICARE (M) PART A Mar 19, 1990 PART A [id number] WILLIS,LAVELLE AEL PATIENT MEDICARE (WNR) MEDICARE (M) PART A Mar 19, 1990 PART A [id number] [phone] WILLIS,LAVELLE AEL PATIENT MEDICARE (WNR) MEDICARE (M) PART A Mar 19, 1990 PART A [id number] [phone] WILLIS,LAVELLE AEL PATIENT MEDICARE (WNR) MEDICARE (M) PART A Mar 19, 1990 PART A [id number] WILLIS,LAVELLE AEL PATIENT MEDICARE (WNR) MEDICARE (M) PART A Mar 19, 1990 PART A [id number] [phone] WILLIS,LAVELLE AEL PATIENT MEDICARE (WNR) MEDICARE (M) PART A Mar 19, 1990 PART A [id number] WILLIS,LAVELLE AEL PATIENT MEDICARE (WNR) MEDICARE (M) PART A Mar 19, 1990 PART A [id number] [phone] WILLIS,LAVELLE AEL PATIENT Selected Encounter This section includes the information on record at [place] for the Encounter. Date/Time Encounter Type Encounter Description Reason Provider Source Nov 09, 2024 11:30 AM OFFICE O/P EST MOD 30 MIN PRIMARY CARE/MEDICINE ICD-10-CM N50.82 Scrotal pain JULIENNEBERE YANEZ [facility] Encounter Template Text not used by [place] Assessments - Encounter Diagnoses This section includes the primary and secondary diagnoses documented for the Encounter. Date/Time Primary/Secondary Diagnosis Diagnosis Name Provider Source Nov 09, 2024 12:39 PM PRIMARY Scrotal pain BERE RIOS [place] [facility] [place] [facility] Nov 09, 2024 12:39 PM SECONDARY Encounter for immunization MARY AGUILAR [facility] [place] [facility] Nov 09, 2024 12:39 PM SECONDARY Generalized abdominal pain BERE RIOS [facility] [place] [facility] Plan of Treatment: Future Appointments (+ 6 months) and Future Tests (+/- 45 days) The Plan of Treatment section includes future care activities for the patient from all [place] [facility]. This section includes future appointments and future orders which are active, pending or scheduled. Future Appointments This section includes appointments that were scheduled to occur 6 months from the date of the Encounter, up to a maximum of 20 appointments. The data comes from all [facility]3] facilities. Appointment Date/Time Appointment Type Appointme nt Facility Name Nov 28, 2024 09:30 AM AMBULATORY - MEDICINE [facility] Dec 02, 2024 08:30 AM AMBULATORY MEDICINE [facility] [place] [facility] Dec 15, 2024 10:30 AM AMBULATORY MEDICINE [facility] [facility] Dec 16, 2024 10:20 AM AMBULATORY MEDICINE [facility] [place] [facility] Mar 20, 2025 09:00 [facility] Active, Pending, and Scheduled Orders This section [...] Date/Time Test Type Test Details Facility Name Nov 09, 2024 11:57 AM Consult Order COMMUNITY CARE-UROLOGY Cons Money Laundering Investigator's Choice [facility] Dec 20, 2024 11:49 AM Consult Order COMMUNITY CARE-NEUROLOGY [facility] Money Laundering Investigator's [facility] Vital Signs: All taken on the encounter date This section contains inpatient and outpatient Vital Signs collected on the date of the Encounter. Date/Time Temperature Pulse Blood Pressure Respiratory Rate SP02 Pain Height Weight Body Mass Index Source Nov 09, 2024 11:32 AM 97.8 81 137/92 18 94 4 [facility] Immunizations: All administered on the encounter date This section contains immunizations associated to the Encounter. Immunization Series Date Issued Reaction Comments RSV, BIVALENT, PROTEIN SUBUN IT RSVPREF, DILUENT RECONSTITUTED, 0.5 ML, PF Nov 09, 2024 Social History: Smoking Status (Most current) and Tobacco Use (All prior to encounter date) This section includes the most current, and the historical, smoking and tobacco- related health factors from the [place] facility where the Encounter took place. Current Smoking Status This section includes the most current smoking, or tobacco-related health factor, from the [place] facility where the Encounter took place. Date/Time Current Smoking Status Comment Enrique mancia Nov 27, 2023 11:00 AM VA-TOBACCO FORMER USER [facility] Tobacco Use History This section includes a history of the smoking, or tobacco-related health factors, that were collected on or before the date of the Encounter. The data comes from the [place] facility where the Encounter took place. Date/Time Smoking Status/Tobac co Use Comment Facility Nov 27, 2023 11:00 AM VA-TOBACCO QUIT 15 YRS OR MORE [facility] [place] [facility] Dec 02, 2022 08:00 AM VA-TOBACCO FORMER USER [facility] [place] [facility] Dec 02, 2022 08:00 AM VA-TOBACCO QUIT 15 YRS OR MORE [facility] [place] [facility] Nov 05, 2021 10:30 AM VA-TOBACCO FORMER USER [facility] [place] [facility] Nov 05, 2021 10:30 AM VA-TOBACCO QUIT 1 TO < 5 YRS [facility] [place] [facility] Sep 14, 2020 02:00 PM VA-TOBACCO FORMER USER [facility] [place] [facility] Sep 14, 2020 02:00 PM VA-TOBACCO QUIT 5 TO < 15 YRS [facility] [place] [facility] Jan 22, 2018 03:40 PM QUIT TOBACCO USE > 7 YEARS AGO [facility] [place] [facility] Jun 04, 2016 02:01 PM CURRENT SMOKER been smoking pass 20 yrs [facility] [place] [facility] Jun 04, 2016 02:01 PM V1-PT DECLINES REF TO TOBACCO CESS PRGM [facility] [place] [facility] Jun 04, 2016 02:01 PM V1-PT THINKING ABOUT QUIT TOBACCO USE [facility] [place] [facility] Jul 18, 2014 03:31 PM V1-PT DECLINES REF TO TOBACCO CESS PRGM [facility] [place] [facility] Jul 18, 2014 03:31 PM V1-PT DECLINES TOBACCO [facility]ESS[facility] Jul 18, 2014 03:31 PM V1-PT NOT INTERESTED IN QUIT [facility]ACCO [facility] Jan 09, 2014 10:43 AM CURRENT SMOKER pt smokes 1 pk of cigarettes per day. [facility] Jan 09, 2014 10:43 AM V1-PT THINKING ABOUT QUIT TOBACCO USE [facility] Aug 28, 2003 10:47 AM CURRENT SMOKER one pack q 6 days - he has cut down from 3 PPD. He is in the process of quitting [facility] Encounter Notes: All associated encounter notes This section contains the clinical notes associated to the Encounter. Date/Time Encounter Note(s) Provider Source Nov 09, 2024 11:41 AM PRIMARY CARE NURSE PRACTITIONER OUTPATIENT NOTE: LOCAL TITLE: NURSE PRACTITIONER OUTPATIENT NOTE STANDARD TITLE: PRIMARY CARE NURSE PRACTITIONER OUTPATIENT NOTE DATE OF NOTE: NOV 09, 2024@11:41 ENTRY DATE: NOV 09, 2024@11:41:46 AUTHOR: BERE RIOS EXP COSIGNER: URGENCY: STATUS: COMPLETED Pt is a 68 who comes in for follow up of medical problems as noted below. HPI: Had CAP was seen and treated at [facility] end of Sep 2024 was dc to home then cough was persistent went back to [facility] was put on another Abx Prednisone and Mucinex then went back home was feeling better but cough persistent, then had right side abdominal pain, would also travel to the left and into groin, he went to [facility] on 11/03 he had US of his Scrotum showing small varicocele with bilateral testicle microlithiasis but no focal mass no hydrocele no testes or epidymitits he notes he had a bad ER visit at [place] and never wants to go back, also note was given Dilaudid for pain, then had allergic reaction, and had to be admitted for SZ activity, He follows with Dr Hardin has appt with him on 12/15 staying on same medication, since dc from hospital pain has resolved in scrotum and no SZ, he still has occasional Right side Abd pain reports CT normal they wanted him to have EGD but he wanted to do as outpatient. having normal BMs voiding well denies n/v/d fevers no sick contacts PMH: Active problems - Computerized Problem List is the source for the followin. Seizure disorder on valproic acid 2. Peripheral neuropathy due to type 2 diabetes mellitus 3. Seasonal allergic rhinitis 4. Nonalcoholic steatohepatitis No need for f/u in liver clinic unless changes in Albumin, INR or LFTs 5. History of substance abuse MJ Cocaine ETOH --remission 6. Obesity 7. Diabetes mellitus type 2 A1c 8.9% (04/08/22). U-ACR ordered. Pt to f/u to discuss medication options. Also, discuss adding ACEi and statin 8. Elevated liver enzymes level AST/ALT 43/57 (04/08/22). Pt to f/u to discuss statin. Consider Fatty Liver Disease w/u. HCV screen. 9. Sleep apnea 10. Hypertension [place]o 10. Discuss ACEi w/ T2DM. Renal function reassuring 04/08/22. 11. Chronic post-traumatic stress disorder following combat 12. 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 Diverticulosis 2016 [facility] 14. Galeas's esophagus EGD 09/02/16 Dr. Hampton 15. Rosacea 16. Deep venous thrombosis of upper extremity LUE, basilic vein 17. Nephrolithiasis On CT at [facility] 02/07/2015. 18. Hyperlipidemia Total chol/HDL/LDL/trigs: 154/41/84/145 (04/08/22). F/U to discuss statin w/ T2DM 19. Lower urinary tract symptoms due to benign prostatic hypertrophy (SNOMED CT PSA normal (04/08/22) 20. Family history of prostate cancer Father and three brothers. 21. Schizoaffective disorder (SNOMED CT 52434194) 22. Alcohol dependence (SNOMED CT 00161056) episodic 23. Periodontal Disease NEC 24. GERD 25. 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 REFRACTION DISORDER NOS Allergies: AKWA TEARS, DIFLUCAN, PHENYTOIN, FLUOROMETHOLONE, REFRESH TEARS, OXYCODONE LEVETIRACETAM The following VA and Non-VA meds were reconciled with patient: Active and Recently Outpatient Medications (excluding Supplies): Active Outpatient Medications Status 1) ACCU-CHEK GUIDE (GLUCOSE) TEST STRIP USE 1 STRIP TO TEST ACTIVE BLOOD SUGARS TWO TIMES A WEEK 2) ALBUTEROL 3/IPRATROP 0.5MG/3ML INHL 3ML INHALE 1 VIAL (3ML) ACTIVE IN NEBULIZER EVERY 4 HOURS NEEDED Indication: FOR BRONCHOSPASM 3) ALBUTEROL 90MCG (CFC-F) 200D ORAL INHL INHALE 2 PUFFS BY ACTIVE MOUTH EVERY 4 HOURS NEEDED FOR SHORTNESS OF BREATH 4) AMLODIPINE BESYLATE 5MG TAB TAKE ONE TABLET BY MOUTH ONCE ACTIVE DAILY FOR BLOOD PRESSURE/HEART, DO NOT TAKE WITH GRAPEFRUIT JUICE 5) ATORVASTATIN CALCIUM 80MG TAB TAKE ONE-HALF TABLET BY MOUTH ACTIVE AT BEDTIME FOR CHOLESTEROL Indication: FOR HIGH CHOLESTEROL 6) EYELID CLEANSER,EYE SCRUB PAD USE 1 PAD TOPICALLY ONCE DAILY ACTIVE NEEDED Indication: DRY EYE 7) FAMOTIDINE 20MG TAB TAKE ONE TABLET BY MOUTH DAILY FOR ACTIVE STOMACH ACID 8) KETOTIFEN 0.025% OPH SOLN INSTILL 1 DROP INTO EACH EYE TWICE ACTIVE DAILY NEEDED (IF YOU WEAR CONTACT LENSES, WAIT 10 MINUTES BEFORE INSERTING LENSES) Indication: FOR ALLERGIC CONJUNCTIVITIS 9) LEVOCETIRIZINE DIHYDROCHLORIDE 5MG TAB TAKE ONE TABLET BY ACTIVE MOUTH EVERY EVENING Indication: FOR ALLERGIES 10) METFORMIN HCL 1000MG TAB TAKE ONE TABLET BY MOUTH TWICE ACTIVE DAILY FOR DIABETES 11) METRONIDAZOLE 0.75% TOP GEL APPLY MODERATE AMOUNT TOPICALLY ACTIVE TWICE DAILY Indication: FOR ACNE ROSACEA 12) ONDANSETRON 4MG ORAL DISINTEGRATING TAB PLACE ONE TABLET ON ACTIVE THE TONGUE EVERY 8 HOURS NEEDED (ALLOW TABLET TO DISSOLVE ON TONGUE, AND SWALLOW WITH SALIVA) Indication: FOR NAUSEA AND VOMITING 13) PEG 400 0.4%/PROP GLYCOL 0.3% OPH SOLN INSTILL 1 DROP INTO ACTIVE EACH EYE FOUR TIMES DAILY NEEDED Indication: DRY EYE 14) PHENOBARBITAL 32.4MG TAB TAKE ONE TABLET BY MOUTH TWICE ACTIVE DAILY 15) SILDENAFIL CITRATE 25MG TAB TAKE ONE TABLET BY MOUTH ONCE ACTIVE DAILY TAKE 1 HOUR PRIOR TO SEXUAL ACTIVITY Indication: FOR ERECTILE DYSFUNCTION Inactive Outpatient Medications Status 1) LACTOBACILLUS ACIDOPHILUS CAP TAKE 1 CAPSULE BY MOUTH TWICE DAILY Indication: FOR PROBIOTIC SUPPLEMENTATION Active Non-VA Medications Status 1) Non-VA MULTIVITAMIN/MINERALS CAP/TAB ONE CAP/TAB BY MOUTH ACTIVE ONCE DAILY 2) Non-VA OTHER CAP/TAB THC BY MOUTH TWICE DAILY ACTIVE Indication: epilepsy 18 Total Medications Allergies: AKWA TEARS, DIFLUCAN, PHENYTOIN, FLUOROMETHOLONE, REFRESH TEARS, OXYCODONE LEVETIRACETAM VITAL SIGNS: 97.8 F [36.6 C] (11/09/2024 11:32) 81 (11/09/2024 11:32) 18 (11/09/2024 11:32) 137/92 (11/09/2024 11:32) 4 (11/09/2024 11:32) 66 in [167.6 cm] (06/28/2024 11:41) 214 lb [97.07 kg] (06/28/2024 11:41) BMI: 34.6 ROS General: no fever, no unexplained weight loss or gain CV: denies CP, palpitations Lung: denies Dyspnea or wheezing Abd: denies n/v/d : denies dysuria, penile d/c, hematuria Ext: denies edema Psych: denies SI Neuro: denies dizziness, falls, MENDOZA PHYSI KACI EXAM GENERAL: well appearing [place] in NAD, speaking in clear sentences. SKIN: Clean, dry intact no rashes , lesions or nodules observed. HEENT: PERRLA, EOMIs, TMs intact bilaterally, no lymphadenopathy, no lesions/exudate of posterior pharynx, tongue midline without lesions RESP: CTAB, no wheezing or Rales. Cards: S1 S2 RRR, No m/r/g no JVD, No Pedal Edema, Distal Pulses palpable GI: Soft NT/ND, (+) BSx4, no rebound or guarding Musculo: FROM Head/Neck with equal strength Upper extremities with FROM and equal strength Hips with FROM and equal strength. Knees without crepitus, FROM and equal strength Spine normal 3 curvature, no paraspinal TTP NEURO CN II-XII grossly intact, gait steady without shuffle, Normal sensation to feet bilaterally MENTAL A&Ox3 Appropriate, Pleasant, Cooperative MICROALB/CR RATIO: 7.3 MICROALBUMIN URINE: 0.6 CREATININE URINE: 81.65 HGB A1C (WR): 6.1 H PHENOBARB (QU): 5.2 L GLUCOSE: 107 H UREA NITROGEN: 10 SODIUM: 141 POTASSIUM: 4.5 CHLORIDE: 107 CO2: 20 PROTEIN,TOTAL: 7.8 ALBUMIN: 4.4 ALKALINE PHOSPHATASE: 89 SGOT: 42 H SGPT: 52 BILIRUBIN,TOT.: 0.3 CREATININE-EGFR: 0.85 eGFR CKD-EPI 2020: >90 Future Clinic Visits 11/28/2024 09:30 CWM/NO/PODIATRY B 12/02/2024 08:30 CWM/NO/PACT 5 03/20/2025 09:00 NHM PHARM PACT 3 09/25/2025 09:00 CWM/NO/OPTOMETRY 1 AM ASSESSMENT AND PLAN: 1)Varicocele Small on US from [place] scrotal pain subsided does not want to see Dr Simmons from [place] prefers to get care at [place] or [facility] referral placed to Urology @ [facility] 2)Abd pain, right side intermittent workup from [place] was normal per patient, awaiting report referral to GI one and or CC Return to clinic to see me in 1 month, RTC sooner if needed. Clinical Reminders HTN Assess for Elevated BP>=140/90: The patient's medication regimen was adjusted to improve blood pressure control. Comment: will check in 1 month when he returns was upset today Avg Risk Colorectal Cancer Screen: AVERAGE RISK colorectal cancer screening is due based on information available to this clinical reminder Defer reminder for 3 months Reason: GI referral placed /gaetano/ CIERRA GREGORY Nurse Practitioner Signed: 11/09/2024 12:38 BERE RIOS [facility] Nov 09, 2024 11:24 AM PREVENTIVE MEDICINE NURSING NOTE: LOCAL TITLE: CLINICAL REMINDERS/NURSING STANDARD TITLE: PREVENTIVE MEDICINE NURSING NOTE DATE OF NOTE: NOV 09, 2024@11:24 ENTRY DATE: NOV 09, 2024@11:24:47 AUTHOR: MARYJO AGUILAR EXP COSIGNER: URGENCY: STATUS: COMPLETED CLINICAL REMINDERS/NURSING Has ADDENDA RSV Immunization: Respiratory Syncytial Virus (RSV) Vaccine: RSV vaccine administered today. Administered: RSV, BIVALENT, PROTEIN SUBUNIT RSVPREF, DILUENT RECONSTITUTED, 0.5 ML, PF Date Administered: Nov 09, 2024 11:30 Portfolio Mgr: [employer] Lot: [id number] Exp Date: Aug 18, 2025 NDC: [id number] Admin Route/Site: INTRAMUSCULAR/RIGHT DELTOID Dosage: 0.5mL Vaccine Information Statement(s): RSV (RESPIRATORY SYNCYTIAL VIRUS) VACCINE VIS Aug 04, 2024 (GHANAIAN) Order By: Bere Rios Administered By: Maryjo Aguilar Vaccine Information Sheet (VIS) was given to the patient/caregiver, education regarding adverse reactions was discussed, as well as barriers to learning, if any, were acknowledged. /jerry AGUILAR REGISTERED NURSE Signed: 11/09/2024 11:54 11/09/2024 ADDENDUM STATUS: UNSIGNED You may not VIEW this UNSIGNED Addendum. MARYJO AGUILAR [facility]
--- OUTSIDE RECORDS SUMMARY | 2024-12-21 11:55 | XMS_ITS ---
Author Name [facility] [place] Organization [facility] [place] Address [address] [place] [address] Care Team Providers Care Mounter Clarinets Name Role Phone ELIZABET ROBINS Primary Care [...] Name Patient's Relationship to Policy Paul FORMERLY [facility] CE ORGANIZAT ION [facility] AC Apr 18, 2018 [id number] [phone] WILLISEDILBERTO SPOUSE ANTHEM [place] OF [place] ([place]ARD) [facility] [place] [place] CE ORGANIZAT ION [facility] Apr 18, 2018 [id number] WILLIS,EDILBERTO SOTELOZA SPOUSE BCBS [facility] CE ORGANIZ [facility] SHARE ACTIV E Apr 18, 2018 [id number] WILLIS,MAR JUDITH SPOUSE BCBS OF [facility] [place] CE ORGANIZAT ION [facility] Apr 18, 2018 [id number] [phone] WILLIS,MAR JUDITH PATIENT BCBS OF [facility] CE ORGANIZAT ION [facility] Apr 18, 2018 [id number] WILLIS,MAR JUDITH SPOUSE BCBS OF [place] PREFERRED PROVIDER ORGANIZAT ION (PPO) [facility] AC Apr 18, 2018 [id number] WILLIS,MAR JUDITH SPOUSE BCBS OF [facility] CE ORGANIZAT ION BRENDA [facility] ACT Apr 18, 2018 [id number] [phone] WILLIS,MAR JUDITH SPOUSE BCBS OF [facility] CE ORGANIZ BRENDA MCCABE [facility] AC Apr 18, 2018 [id number] WILLIS,MAR JUDITH SPOUSE [place] PRESCRIPT ION [facility] O Oct 19, 2022 [id number] [phone] WILLIS,MAR JUDITH SPOUSE [place] PRESCRIPT ION RX22M A Oct 19, 2022 RX22MA [id number] WILLIS,LAVELLE AEL PATIENT [place] PRESCRIPT ION RX22M B Oct 19, 2022 RX22MB [id number] WILLIS,LAVELLE AEL PATIENT [place] PRESCRIPT ION BRENDA MCCABE [facility] AC Oct 19, 2022 RX22MB [id number] [phone] WILLIS,LAVELLE AEL SPOUSE [place] PRESCRIPT ION RX Oct 19, 2022 RX22MC [id number] [phone] WILLIS,MAR JUDITH SPOUSE [place] PRESCRIPT ION BCBS OF [place] Oct 19, 2022 [id number] [phone] WILLIS, SPOUSE [place] ([id number]) PRESCRIPT ION [place] OF [place] Oct 19, 2022 [id number] [phone] WILLIS,MAR JUDITH SPOUSE [place] [facility] RSD AC Apr 18, 2018 [id number] [phone] WILLISEDILBERTO SPOUSE [employer] ([id number]) PRESCRIPT ION Apr 18, 2018 L4TA [id number] [phone] WILLIS,EDILBERTO WONG SPOUSE [employer] ([id number]) PRESCRIPT ION L4TA Apr 18, 2018 L4TA [id number] WILLIS,EDILBERTO WONG SPOUSE [employer] ([id number]) PRESCRIPT ION L4TA* Apr 18, 2018 L4TA [id number] WILLISEDILBERTO SPOUSE [employer] ([id number]) PRESCRIPT ION Apr 18, 2018 L4TA [id number] WILLISEDILBERTO SPOUSE [employer]-MINOR BROGATION PRESCRIPT ION [place] OF [place] Apr 18, 2020 L4TA [id number] [phone] WILLIS,EDILBERTO WONG SPOUSE [facility] [facility] ([facility]) [facility] CE ORGANIZAT ION W/OUT OF NETWORK BENEFITS [facility] RSD ACT Apr 18, 2018 [id number] EDILBERTO PEDRO SPOUSE [place] BCBS [place] ([place]ARD) [facility] CE ORGANIZAT ION [facility] R[facility] AC Apr 18, 2018 [id number] EDILBERTO PEDRO SPOUSE MEDICARE (WN) MEDICARE () PART A Mar 19, 1990 PART A [id number] WILLISLAVELLE LEIVA AEL PATIENT MEDICARE (WNR) MEDICARE () PART A Mar 19, 1990 PART A [id number] [phone] WILLISLAVELLE AEL PATIENT MEDICARE (WNR) MEDICARE () PART A Mar 19, 1990 PART A [id number] WILLIS,LAVELLE AEL PATIENT MEDICARE (WNR) MEDICARE () PART A Mar 19, 1990 PART A [id number] WILLIS,LAVELLE AEL PATIENT MEDICARE (WNR) MEDICARE (M) PART A Mar 19, 1990 PART A [id number] [phone] WILLIS,LAVELLE AEL PATIENT MEDICARE (WNR) MEDICARE (M) PART A Mar 19, 1990 PART A [id number] [phone] WILLIS,LAVELLE AEL PATIENT MEDICARE (WNR) MEDICARE (M) PART A Mar 19, 1990 PART A [id number] WILLIS,LAVELLE AEL PATIENT MEDICARE (WNR) MEDICARE (M) PART A Mar 19, 1990 PART A [id number] WILLIS,LAVELLE AEL PATIENT MEDICARE (WNR) MEDICARE (M) PART A Mar 19, 1990 PART A [id number] WILLIS,LAVELLE AEL PATIENT MEDICARE (WNR) MEDICARE (M) PART A Mar 19, 1990 PART A [id number] WILLIS,LAVELLE AEL PATIENT MEDICARE (WNR) MEDICARE (M) PART A Mar 19, 1990 PART A [id number] WILLISLAVELLE AEL PATIENT Selected Encounter This section includes the information on record at CT for the Encounter. Date/Time Encounter Type Encounter Description Reason Provider Source Mar 28, 2024 10:30 AM OFF/OP EST FEBRUARY X REQ PHY/QHP PRIMARY CARE/MEDICINE ICD-10-CM Z71.89 Other specified counseling TONJA LLANES [facility] Encounter Template Text not used by CT Assessments - Encounter Diagnoses This section includes the primary and secondary diagnoses documented for the Encounter. Date/Time Primary/Secondary Diagnosis Diagnosis Name Provider Source Apr 20, 2024 02:44 PM PRIMARY Other specified counseling TONJA LLANES [facility] Plan of Treatment: Future Appointments (+ [...] MEDICINE [facility] [place] [facility] May 30, 2024 08:30 AM AMBULATORY - MEDICINE [facility] [place] [facility] May 30, 2024 09:30 AM AMBULATORY - MEDICINE [facility] [place] [facility] Jun 01, 2024 10:00 AM AMBULATORY - MEDICINE [facility] [place] [facility] Jun 01, 2024 11:30 AM AMBULATORY - MEDICINE [facility] [place] [facility] Jun 28, 2024 11:30 AM AMBULATORY - MEDICINE [facility] [place] [facility] Jul 08, 2024 10:30 AM AMBULATORY - MEDICINE [facility] [place] [facility] Jul 13, 2024 09:30 AM AMBULATORY - MEDICINE [facility] [place] [facility] Aug 12, 2024 09:30 AM AMBULATORY - MEDICINE [facility] [place] [facility] Aug 22, 2024 09:00 AM AMBULATORY - MEDICINE [facility] [place] [facility] Sep 21, 2024 09:00 AM AMBULATORY - MEDICINE [facility] [place] [facility] Sep 21, 2024 10:00 AM AMBULATORY - MEDICINE [facility] [place] [facility] Vital Signs: All taken on the encounter date This section contains inpatient and outpatient Vital Signs collected on the date of the Encounter. Date/Time Temperature Pulse Blood Pressure Respiratory Rate SP02 Pain Height Weight Body Mass Index Source Mar 28, 2024 10:36 AM 99.1 122 132/97 [address] [facility] [place] [facility] Social History: Smoking Status (Most current) and [...] AM VA-TOBACCO [facility] Tobacco Use History This section includes a history of the smoking, or tobacco-related health factors, that were collected on or before the date of the Encounter. The data comes from the CT facility where the Encounter took place. Date/Time Smoking Status/Tobac co Use Comment Facility Nov 27, 2023 11:00 AM VA-TOBACCO QUIT 15 YRS OR [facility] Dec 02, 2022 08:00 AM VA-TOBACCO FORMER USER [facility] Dec 02, 2022 08:00 AM VA-TOBACCO QUIT 15 YRS OR MORE [facility] Nov 05, 2021 10:30 AM VA-TOBACCO FOR[facility]ER [facility] [place] [facility] Nov 05, 2021 10:[address]-TOBACCO QUIT 1 TO < 5 YRS [facility] Sep 14, 2020 02:00 PM VA-TOBACCO [facility] [place] [facility] Sep 14, 2020 02:00 PM VA-TOBACCO QUIT 5 TO < 15 YRS [facility] [place] [facility] Jan 22, 2018 03:40 PM QUIT TOBACCO USE > 7 YEARS AGO [facility] [place] [facility] Jun 04, 2016 02:01 PM CURRENT SMOKER been smoking pass 20 yrs [facility] [place] [facility] Jun 04, 2016 02:01 PM V1-PT DECLINES REF TO TOBACCO CESS PRGM [facility] Jun 04, 2016 02:01 PM V1-PT THINKING ABOUT QUIT TOBACCO USE [facility] [place] [facility] Jul 18, 2014 03:31 PM V1-PT DECLINES REF TO TOBACCO CESS PRGM [facility] [place] [facility] Jul 18, 2014 03:31 PM V1-PT DECLINES TOBACCO CESSATION MEDS [facility] Jul 18, 2014 03:31 PM V1-PT NOT INTERESTED IN QUIT TOBACCO USE [facility] Jan 09, 2014 10:43 AM CURRENT SMOKER pt smokes 1 pk of cigarettes per day. [facility] Jan 09, 2014 10:43 AM V1-PT THINKING ABOUT QUIT TOBACCO USE [facility] Aug 28, 2003 10:47 AM CURRENT SMOKER one pack q 6 days - he has cut down from 3 PPD. He is in the process of quitting [facility] Radiology Reports: +/- 30 days of [...] the Encounter. The data comes from all CT treatment facilities. Date/Time Radiology Report Provider Source Mar 28, 2024 09:45 AM LDCT LUNG CANCER SCREENING: WILLISCHAYA LEIVA [id number] -[id number] M Exm Date: MAR 28, 2024@09:45 Req Phys: ELIZABET ROBINS Pat Loc: ZZCWM/NO/LCS ADMIN (Req'g Loc) Img Loc: NHM/CT Service: Unknown [facility] , (Case 16 COMPLETE) LDCT LUNG CANCER SCREENING (CT Detailed) CPT:31417 Reason for Study: LUNG CANCER SCREENING Clinical History: QUIT SMOKING IN 2012 BASELINE LCS LDCT 03/30/2023: LUNG RADS 1 no new or concerning pulmonary mass or nodules. Plan for repeat in 12 months. Report Status: Verified Date Reported: MAR 28, 2024 Date Verified: MAR 28, 2024 Coat Agent E-Sig:/ES/RAYMOND LEAL JR Report: Study: Lung cancer [...] reviewed. Secondary computer-aided detection with post-processing from [employer] is used. The lack of intravenous contrast [...] Primary Interpreting Staff: RAYMOND LEAL JR, Radiologist (Coat Agent) /RAYMOND SHELTON JR [facility] Encounter Notes: All associated encounter notes [...] cough. Pt was seen last Thursday at [facility], does not have his d/c paperwork [...] Registered Nurse Signed: 03/28/2024 10:[address] [facility]
--- OUTSIDE RECORDS SUMMARY | 2024-12-21 11:55 | XMS_ITS ---
Author Name [facility] [place] [facility] [place] [facility] [facility] [place] Address [address] [place] [address] Care Team Providers Care Supply Chain Buyer Name Role Phone ELIZABET ROBINS Primary Care [...] Name Patient's Relationship to Policy Paul [facility] CE ORGANIZAT ION WIIA [facility] AC Apr 18, 2018 [id number] [phone] WILLISEDILBERTOZA SPOUSE ANTHEM [place] OF [place] ([place]ARD) HEALTH [facility]INTENAN CE ORGANIZAT ION [facility] Apr 18, 2018 [id number] [phone] WILLIS,EDILBERTO SOTELOZA SPOUSE BCBS [facility] CE ORGANIZ [facility] SHARE ACTIV E Apr 18, 2018 [id number] WILLIS,MAR JUDITH SPOUSE BCBS OF [facility] CE ORGANIZAT ION WIIA [facility] Apr 18, 2018 [id number] [phone] WILLIS,MAR JUDITH PATIENT BCBS OF [facility] CE ORGANIZAT ION BRENDA MCCABE [facility] Apr 18, 2018 [id number] WILLIS,MAR JUDITH SPOUSE [place] OF [place] PREFERRED PROVIDER ORGANIZAT ION (PPO) [facility] AC Apr 18, 2018 [id number] WILLIS,MAR JUDITH SPOUSE BCBS OF [facility] CE ORGANIZAT ION BRENDA MCCABE [facility] ACT Apr 18, 2018 [id number] WILLIS,MAR JUDITH SPOUSE BCBS OF [facility] CE ORGANIZ [facility] AC Apr 18, 2018 [id number] [phone] WILLIS,MAR JUDITH SPOUSE [place] PRESCRIPT ION [facility] Oct 19, 2022 [id number] [phone] WILLIS,MAR JUDITH SPOUSE [place] PRESCRIPT ION RX22M A Oct 19, 2022 [id number] WILLIS,LAVELLE AEL PATIENT [place] PRESCRIPT ION RX22M B Oct 19, 2022 [id number] WILLIS,LAVELLE AEL PATIENT [place] PRESCRIPT [place] Oct 19, 2022 [id number] WILLIS, SPOUSE [place] PRESCRIPT ION BRENDA MCCABE [facility] AC Oct 19, 2022 [phone] [phone] WILLIS,LAVELLE AEL SPOUSE [place] PRESCRIPT ION RX Oct 19, 2022 [id number] [phone] WILLIS,MAR JUDITH SPOUSE [place] ([id number]) PRESCRIPT ION [place] Oct 19, 2022 [id number] [phone] WILLIS,MAR JUDITH SPOUSE [place] BC[place] ([facility] CE ORGANIZAT ION [facility] AC Apr 18, 2018 [id number] WILLISEDILBERTO SPOUSE [employer] ([id number]) PRESCRIPT ION Apr 18, 2018 L4TA [id number] WILLISEDILBEROT SPOUSE [employer] ([id number]) PRESCRIPT ION L4TA Apr 18, 2018 L4TA [id number] WILLIS,EDILBERTO WONG SPOUSE [employer] ([id number]) PRESCRIPT ION L4TA* Apr 18, 2018 L4TA [id number] WILLISEDILBERTO SPOUSE [employer] ([id number]) PRESCRIPT ION Apr 18, 2018 L4TA [id number] WILLISEDILBERTO SPOUSE [employer] PRESCRIPT ION [place] OF [place] Apr 18, 2020 L4TA [id number] [phone] WILLIS,EDILBERTO WONG SPOUSE [employer] ([facility]) [facility] CE ORGANIZAT ION W/OUT OF NETWORK BENEFITS [facility] ACT Apr 18, 2018 [id number] [phone] DEILBERTO PEDRO SPOUSE [facility] CE ORGANIZAT ION [facility] AC Apr 18, 2018 [id number] [phone] EDILBERTO PEDRO SPOUSE MEDICARE (WNR) MEDICARE () PART A Mar 19, 1990 PART A [id number] WILLIS,RAF AEL PATIENT MEDICARE (WN) MEDICARE () PART A Mar 19, 1990 PART A [id number] [phone] WILLISLAVELLE AEL PATIENT MEDICARE (WNR) MEDICARE () PART A Mar 19, 1990 PART A [id number] WILLIS,LAVELLE AEL PATIENT MEDICARE (WNR) MEDICARE () PART A Mar 19, 1990 PART A [id number] WILLIS,LAVELLE AEL PATIENT MEDICARE (WNR) MEDICARE (M) PART A Mar 19, 1990 PART A [id number] WILLIS,LAVELLE AEL PATIENT MEDICARE (WNR) MEDICARE (M) PART A Mar 19, 1990 PART A [id number] [phone] WILLIS,LAVELLE AEL PATIENT MEDICARE (WNR) MEDICARE (M) PART A Mar 19, 1990 PART A [id number] WILLIS,LAVELLE AEL PATIENT MEDICARE (WNR) MEDICARE (M) PART A Mar 19, 1990 PART A [id number] WILLIS,LAVELLE AEL PATIENT MEDICARE (WNR) MEDICARE (M) PART A Mar 19, 1990 PART A [id number] [phone] WILLIS,LAVELLE AEL PATIENT MEDICARE (WNR) MEDICARE (M) PART A Mar 19, 1990 PART A [id number] WILLIS,LAVELLE AEL PATIENT MEDICARE (WNR) MEDICARE (M) PART A Mar 19, 1990 PART A [id number] WILLIS,LAVELLE AEL PATIENT Selected Encounter This section includes the information on record at NE for the Encounter. Date/Time Encounter Type Encounter Description Reason Provider Source Dec 02, 2024 08:30 AM OFFICE O/P EST MOD 30 MIN PRIMARY CARE/MEDICINE ICD-10-CM R21 Rash and other nonspecific skin eruption ELIZABET ROBINS [facility] Encounter Template Text not used by NE Assessments - Encounter Diagnoses This section includes the primary and secondary diagnoses documented for the Encounter. Date/Time Primary/Secondary Diagnosis Diagnosis Name Provider Source Dec 12, 2024 08:04 AM PRIMARY Rash and other nonspecific skin eruption ELIZABET ROBINS [facility] [place] [facility] Plan of Treatment: Future Appointments (+ 6 months) and Future Tests (+/- 45 days) The Plan of Treatment section includes future care activities for the patient from all NE treatmentfacilities. This section includes future appointments and future orders which are active, pending or scheduled. Future Appointments This section includes appointments that were scheduled to occur 6 months from the date of the Encounter, up to a maximum of 20 appointments. The data comes from all [place] treatment facilities. Appointment Date/Time Appointment Type Appointme nt Facility Name Dec 15, 2024 10:30 AM [facility] Dec 16, 2024 10:20 AM [facility] Mar 20, 2025 09:00 AM AMBULATORY - MEDICINE [facility] Active, Pending, and Scheduled Orders This [...] comes from all [facility]. 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 [facility] Internal Controls Manager's Choice [facility] Dec 20, 2024 11:49 AM Consult Order COMMUNITY CARE-NEUROLOGY [facility] Internal Controls Manager's Choice [facility] Vital Signs: All taken on the encounter date This section contains inpatient and outpatient Vital Signs collected on the date of the Encounter. Date/Time Temperature Pulse Blood Pressure Respiratory Rate SP02 Pain Height Weight Body Mass Index Source Dec 02, 2024 08:34 AM 97.8 83 134/82 18 96 0 [facility] Social History: Smoking Status (Most [...] Date/Time Current Smoking Status Comment Enrique shannon Dec 02, 2024 08:30 AM VA-TOBACCO NEVER U SED CIGARETTES [facility] Tobacco Use History This section includes a history of the smoking, or tobacco-related health factors, that were collected on or before the date of the Encounter. The data comes from the NE facility where the Encounter took place. Date/Time Smoking Status/Tobac co Use Comment Facility Dec 02, 2024 08:30 AM VA-TOBACCO NEVER USED OTHER TYPE [facility] [facility] Nov 27, 2023 11:00 AM VA-TOBACCO FORMER USER [facility] Nov 27, 2023 11:00 AM VA-TOBACCO QUIT 15 YRS OR MORE [facility] Dec 02, 2022 08:00 AM VA-TOBACCO FORMER USER [facility] Dec 02, 2022 08:00 AM VA-TOBACCO QUIT 15 YRS OR MORE [facility] Nov 05, 2021 10:30 AM VA-TOBACCO FORMER USER [facility] Nov 05, 2021 10:30 AM VA-TOBACCO QUIT 1 TO < 5 YRS [facility] Sep 14, 2020 02:00 PM VA-TOBACCO FORMER USER [facility] Sep 14, 2020 02:00 PM VA-TOBACCO QUIT 5 TO < 15 YRS [facility] [facility] Jan 22, 2018 03:40 PM QUIT TOBACCO USE > 7 YEARS AGO [facility] Jun 04, 2016 02:01 PM CURRENT SMOKER been smoking pass 20 yrs [facility] [facility] Jun 04, 2016 02:01 PM V1-PT DECLINES REF TO TOBACCO CESS PRCOX [facility] [facility] Jun 04, 2016 02:01 PM V1-PT THINKING ABOUT QUIT TOBACCO USE [facility] Jul 18, 2014 03:31 PM V1-PT DECLINES REF TO TOBACCO CESS PRGM [facility] [facility] Jul 18, 2014 03:31 PM V1-PT DECLINES TOBACCO CESSATION MEDS [facility] [facility] Jul 18, 2014 03:31 PM V1-PT NOT INTERESTED IN QUIT TOBACCO USE [facility] Jan 09, 2014 10:43 AM CURRENT SMOKER pt smokes 1 pk of cigarettes per day. [facility] Jan 09, 2014 10:43 AM V1-PT THINKING ABOUT QUIT TOBACCO USE [facility] Aug 28, 2003 10:47 AM CURRENT SMOKER one pack q 6 days - he has cut down from 3 PPD. He is in the process of quitting [facility] Encounter Notes: All associated encounter notes This section contains the clinical notes associated to the Encounter. Date/Time Encounter Note(s) Provider Source Dec 02, 2024 08:58 AM PRIMARY CARE NURSE PRACTITIONER OUTPATIENT NOTE: LOCAL TITLE: NURSE PRACTITIONER OUTPATIENT NOTE STANDARD TITLE: PRIMARY CARE NURSE PRACTITIONER OUTPATIENT NOTE DATE OF NOTE: DEC 02, 2024@08:58 ENTRY DATE: DEC 02, 2024@08:58:36 AUTHOR: ELIZABET ROBINS EXP COSIGNER: URGENCY: STATUS: COMPLETED Pt is a 69 who comes in for follow up of medical problems as noted below. HPI: Right axilla rash that is itchy, he has several skin tags that have been there many years but new white bumps that he noticed about 1 month ago, denies new deodorants and lotions no other rash on body also with mid sternum hyperpigmented dark raised bump that he wanted checked. denies any other concerns today, all meds and medical issues hare stable PMH: Active problems - Computerized Problem List [...] caused by toxin 13. Diverticulosis [facility] 14. Galeas's esophagus EGD 09/02/16 Dr. Hampton 15. Rosacea 16. Deep venous thrombosis of upper extremity LUE, basilic vein 17. Nephrolithiasis On CT at [facility] 02/07/2015. 18. Hyperlipidemia Total chol/HDL/LDL/trigs: 154/41/84/145 (04/08/22). F/U to discuss statin w/ T2DM 19. Lower urinary tract symptoms due to benign prostatic hypertrophy (SNOMED CT PSA normal (04/08/22) 20. Family history of prostate cancer Father and three brothers. 21. Schizoaffective disorder (SNOMED CT 36222079) 22. Alcohol dependence (SNOMED CT 94767227) episodic 23. Periodontal Disease NEC 24. GERD 25. 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 REFRACTION DISORDER NOS [...] ORAL INHL INHALE 2 PUFFS BY ACTIVE (S) MOUTH EVERY 4 HOURS NEEDED FOR SHORTNESS [...] MOUTH DAILY FOR ACTIVE STOMACH ACID 8) HYDROXYZINE HCL 25MG TAB TAKE ONE TABLET BY MOUTH AT BEDTIME ACTIVE NEEDED Indication: FOR ANXIETY AND SLEEP 9) KETOTIFEN 0.025% OPH SOLN INSTILL 1 DROP INTO EACH EYE TWICE ACTIVE DAILY NEEDED (IF YOU WEAR CONTACT LENSES, WAIT 10 MINUTES BEFORE INSERTING LENSES) Indication: FOR ALLERGIC CONJUNCTIVITIS 10) LEVOCETIRIZINE DIHYDROCHLORIDE 5MG TAB TAKE ONE TABLET BY ACTIVE MOUTH EVERY EVENING Indication: FOR ALLERGIES 11) METFORMIN HCL 1000MG TAB TAKE ONE TABLET BY MOUTH TWICE ACTIVE DAILY FOR DIABETES 12) METRONIDAZOLE 0.75% TOP GEL APPLY MODERATE AMOUNT TOPICALLY ACTIVE TWICE DAILY Indication: FOR ACNE ROSACEA 13) NYSTATIN 839624 UNT/GM CREAM APPLY A THIN LAYER TOPICALLY ACTIVE TWICE DAILY Indication: FOR FUNGAL INFECTION 14) ONDANSETRON 4MG ORAL DISINTEGRATING TAB PLACE ONE TABLET ON ACTIVE THE TONGUE EVERY 8 HOURS NEEDED (ALLOW TABLET TO DISSOLVE ON TONGUE, AND SWALLOW WITH SALIVA) Indication: FOR NAUSEA AND VOMITING 15) PANTOPRAZOLE NA 40MG EC TAB TAKE ONE TABLET BY MOUTH EVERY ACTIVE MORNING 30 MINUTES BEFORE BREAKFAST Indication: FOR EXCESSIVE PRODUCTION OF STOMACH ACID 16) PEG 400 0.4%/PROP GLYCOL 0.3% OPH SOLN INSTILL 1 DROP INTO ACTIVE EACH EYE FOUR TIMES DAILY NEEDED Indication: DRY EYE 17) PHENOBARBITAL 32.4MG TAB TAKE ONE TABLET BY MOUTH TWICE ACTIVE DAILY 18) SILDENAFIL CITRATE 50MG TAB TAKE ONE TABLET BY MOUTH ONCE ACTIVE DAILY TAKE 1 HOUR PRIOR TO SEXUAL ACTIVITY Indication: FOR ERECTILE DYSFUNCTION Pending Outpatient Medications Status 1) LACTOBACILLUS ACIDOPHILUS CAP TAKE 1 CAPSULE BY MOUTH TWICE PENDING DAILY Indication: FOR PROBIOTIC SUPPLEMENTATION Active Non-VA Medications Status 1) Non-VA MULTIVITAMIN/MINERALS CAP/TAB ONE CAP/TAB BY MOUTH ACTIVE ONCE DAILY 2) Non-VA OTHER CAP/TAB THC BY MOUTH TWICE DAILY ACTIVE Indication: epilepsy 21 Total Medications Allergies: AKWA TEARS, DIFLUCAN, PHENYTOIN, FLUOROMETHOLONE, REFRESH TEARS, OXYCODONE LEVETIRACETAM VITAL SIGNS: 97.8 F [36.6 C] (12/02/2024 08:34) 83 (12/02/2024 08:34) 18 (12/02/2024 08:34) 134/82 (12/02/2024 08:34) 0 (12/02/2024 08:34) 66 in [167.6 cm] (06/28/2024 11:41) 214 lb [97.07 kg] (06/28/2024 11:41) BMI: 34.6 ROS General: no fever, no unexplained weight loss or gain CV: denies CP, palpitations Lung: denies Dyspnea or wheezing Abd: denies n/v/d : denies dysuria, penile d/c, hematuria Ext: denies edema Psych: denies SI Neuro: denies dizziness, falls, MENDOZA PHYSI KACI EXAM GENERAL: well appearing [place] in NAD, speaking in clear sentences. SKIN: Right axilla with cluster of raised slightly white bumps no redness or drainage also has surrounding skin tags in same axilla, mid sternum with circular raised RESP: CTAB, no wheezing or Rales. Cards: S1 S2 RRR, No m/r/g no JVD, No Pedal Edema, Distal Pulses palpable NEURO CN II-XII grossly intact MENTAL A&Ox3 Appropriate, Pleasant, Cooperative LAB RESULTS LAST 1440 HRS - NONE FOUND Future Clinic Visits 03/20/2025 09:00 [facility] PHARM PACT 3 09/25/2025 09:00 [facility] OPTOMETRY 1 AM 12/08/2025 08:30 [facility] PACT 5 ADULT PROTECTIVE CASEWORKER ASSESSMENT AND PLAN: 1)Rash Ddx broad, Fungal rash, contact derm, new skin tags, atopic derm Trial of topical nystatin, keep area clean and dry referral to teleder for further input Return to clinic to see me in [...] of active outpatient prescriptions dispensed from this NE (local) and dispensed from another NE or DoD facility (remote) as well as [...] provider. /gaetano/ CIERRA GREGORY Nurse Practitioner Signed: 12/12/2024 08:03 ELIZABET ROBINS [facility] [facility] Dec 02, 2024 08:25 AM PREVENTIVE MEDICINE NURSING NOTE: LOCAL TITLE: CLINICAL REMINDERS/NURSING STANDARD TITLE: PREVENTIVE MEDICINE NURSING NOTE DATE OF NOTE: DEC 02, 2024@08:25 ENTRY DATE: DEC 02, 2024@08:26:02 AUTHOR: MARYJO GARCIA COSIGNER: URGENCY: STATUS: COMPLETED Tobacco Use Screening: The patient has never smoked cigarettes. The patient has never used other types of tobacco. Homelessness/Food Insecurity Screen: In the past 2 [...] Not worried about housing near future [facility] [place] reports the following: Within the past 12 months, you worried whether your food would run out before you got money to buy more. Never true Within the past 12 months, the food you bought just didn't last and you didn't have money to get more. Never true Alcohol Use Screen (AUDIT-C): Alcohol Screen: SCREEN [...] Session Format: Face to Face Environmental Check Screening was not completed at this time due to: Another adult present /es/ MARYJO GARCIA REGISTERED NURSE Signed: 12/02/2024 08:37 MARYJO GARCIA [facility]
--- OUTSIDE RECORDS SUMMARY | 2024-12-21 11:56 | XMS_ITS | Encounter Summary ---
Author Name [facility] [place] [facility] [place] [facility] [place] Address [address] [place] [address] Care Team Providers Care Band Saw Marker Name Role Phone ELIZABET ROBINS Primary Care [...] Paul's Name Patient's Relationship to Policy Paul [facility] CE ORGANIZAT ION RIIA [facility] Apr 18, 2018 [id number] [phone] WILLISEDILBERTO SPOUSE ANTHEM BCBS OF [place] (BLUECARD) HEALTH MAINTENAN CE ORGANIZAT ION MIIA [facility] Apr 18, 2018 [id number] [phone] WILLIS,MAR JUDITH SPOUSE BCBS [facility] MAINTENAN CE ORGANIZ [facility] SHARE ACTIV E Apr 18, 2018 [id number] [phone] WILLIS,EDILBERTO SOTELOZA SPOUSE BCBS OF [facility] MAINTEN CE ORGANIZAT ION MIIA [facility] Apr 18, 2018 [id number] [phone] WILLIS,MAR JUDITH PATIENT BCBS OF [facility] CE ORGANIZAT ION BRENDA [facility]CC[facility]E [facility] Apr 18, 2018 [id number] WILLIS,MAR JUDITH SPOUSE BCBS OF [place] PREFERRED PROVIDER ORGANIZAT ION (PPO) [facility] AC Apr 18, 2018 [id number] WILLIS,MAR JUDITH SPOUSE BCBS OF [facility] CE ORGANIZAT ION [facility] ACT Apr 18, 2018 [id number] WILLIS,MAR JUDITH SPOUSE BCBS OF [facility] CE ORGANIZ BRENDA MCCABE [facility] AC Apr 18, 2018 [id number] WILLIS,MAR JUDITH SPOUSE [place] PRESCRIPT ION RX Oct 19, 2022 [id number] WILLIS,MAR JUDITH SPOUSE [place] PRESCRIPT ION [place] Oct 19, 2022 [id number] WILLIS, SPOUSE [place] PRESCRIPT ION RX22M A Oct 19, 2022 [id number] [phone] WILLIS,LAVELLE AEL PATIENT [place] PRESCRIPT ION RX22M B Oct 19, 2022 [id number] [phone] WILLIS,LAVELLE AEL PATIENT [place] PRESCRIPT ION BRENDA MCCABE [facility] AC Oct 19, 2022 [id number] [phone] WILLIS,LAVELLE AEL SPOUSE [place] PRESCRIPT ION [facility] Oct 19, 2022 [id number] WILLIS,MAR JUDITH SPOUSE [place] ([id number]) PRESCRIPT I[place] Oct 19, 2022 [id number] [phone] WILLIS,MAR JUDITH SPOUSE [place] ([facility] CE ORGANIZAT ION [facility] AC Apr 18, 2018 [id number] [phone] WILLISEDILBERTO SPOUSE [employer] ([id number]) PRESCRIPT ION Apr 18, 2018 L4TA [id number] WILLISEDILBERTO SPOUSE [employer] ([id number]) PRESCRIPT ION L4TA* Apr 18, 2018 L4TA [id number] WILLISEDILBERTO SPOUSE [employer] ([id number]) PRESCRIPT ION L4TA Apr 18, 2018 L4TA [id number] WILLIS,EDILBERTO WONG SPOUSE [employer] ([id number]) PRESCRIPT ION Apr 18, 2018 L4TA [id number] [phone] WILLISEDILBERTO Lynn SPOUSE [employer]-MINOR BROGATION PRESCRIPT ION [place] Apr 18, 2020 L4TA [id number] WILLIS,EDILBERTO WONG SPOUSE [place] ([facility]) [facility]ON W/OUT OF NETWORK BENEFITS [facility] ACT Apr 18, 2018 [id number] [phone] EDILBERTO PEDRO SPOUSE [facility] (BLUECARD) [facility] CE ORGANIZAT ION [facility] AC Apr 18, 2018 [id number] WILLISEDILBERTO SPOUSE MEDICARE (WNR) MEDICARE () PART A Mar 19, 1990 PART A [id number] [phone] WILLISLAVELLE AEL PATIENT MEDICARE (WNR) MEDICARE () PART A Mar 19, 1990 PART A [id number] [phone] WILLIS,LAVELLE AEL PATIENT MEDICARE (WNR) MEDICARE () PART A Mar 19, 1990 PART A [id number] WILLIS,LAVELLE AEL PATIENT MEDICARE (WNR) MEDICARE () PART A Mar 19, 1990 PART A [id number] WILLIS,LAVELLE AEL PATIENT MEDICARE (WNR) MEDICARE (M) PART A Mar 19, 1990 PART A [id number] WILLIS,LAVELLE AEL PATIENT MEDICARE (WNR) MEDICARE (M) PART A Mar 19, 1990 PART A [id number] [phone] WILLIS,LAVELLE AEL PATIENT MEDICARE (WNR) MEDICARE (M) PART A Mar 19, 1990 PART A [id number] WILLIS,LAVELLE AEL PATIENT MEDICARE (WNR) MEDICARE (M) PART A Mar 19, 1990 PART A [id number] WILLIS,LAVELLE AEL PATIENT MEDICARE (WNR) MEDICARE (M) PART A Mar 19, 1990 PART A [id number] WILLIS,LAVELLE AEL PATIENT MEDICARE (WNR) MEDICARE (M) PART A Mar 19, 1990 PART A [id number] [phone] WILLIS,LAVELLE AEL PATIENT MEDICARE (WNR) MEDICARE (M) PART A Mar 19, 1990 PART A [id number] [phone] WILLIS,LAVELLE AEL PATIENT Selected Encounter This section includes the information on record at [place] for the Encounter. Date/Time Encounter Type Encounter Description Reason Pro vider Source Dec 15, 2024 01:06 PM Outpatient Encounter EVENT (HISTORICAL) IHE Encounter Template Text not used by [place] Plan of Treatment: Future Appointments (+ 6 months) and Future Tests (+/- 45 days) The Plan of Treatment section includes future care activities for the patient from all [place] treatment[facility]ilities. This section includes future appointments and future orders which are active, pending or scheduled. Future Appointments This section includes appointments that were scheduled to occur 6 months from the date of the Encounter, up to a maximum of 20 appointments. The data comes from all [place] treatment facilities. Appointment Date/Time Appointment Type Appointme nt Facility Name Dec 16, 2024 10:20 AM AM[facility]ULAT[facility] Mar 20, 2025 09:00 AM [facility] Active, Pending, and Scheduled Orders This section includes a listing of several types of active, pending, and scheduled orders, including clinic medications orders, diagnostic test orders, procedure orders and consult orders; where thestart date of the order is 45 days before the date of the Encounter or 45 days after the date of the Encounter. The data comes from all [place] treatment facilities. 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 [employer] Administrator's Choice [facility] [place] [facility] Dec 20, 2024 11:49 AM Consult Order COMMUNITY CARE-NEUROLOGY [employer] Administrator's [facility] [place] [facility] Social History: Smoking Status (Most current) and Tobacco Use (All prior to encounter date) This section includes the most current, and the historical, smoking and tobacco- related health factors from the [place] facility where the Encounter took place. Current Smoking Status This section includes the most current smoking, or tobacco-related health factor, from the [place] facility where the Encounter took place. Date/Time Current Smoking Status Comment [facility] gavino Dec 02, 2024 08:30 AM VA-TOBACCO NEVER U SED OTHER TYPE [facility] [place] [facility] Tobacco Use History This section includes a history of the smoking, or tobacco-related health factors, that were collected on or before the date of the Encounter. The data comes from the [place] facility where the Encounter took place. Date/Time Smoking Status/Tobac co Use Comment Facility Dec 02, 2024 08:30 AM VA-TOBACCO NEVER USED OTHER TYPE [facility] [place] [facility] Nov 27, 2023 11:00 AM VA-TOBACCO FORMER USER [facility] [place] [facility] Nov 27, 2023 11:00 AM VA-TOBACCO QUIT 15 YRS OR MORE [facility] [place] [facility] Dec 02, 2022 08:00 AM VA-TOBACCO FORMER USER [facility] [place] [facility] Dec 02, 2022 08:00 AM VA-TOBACCO QUIT 15 YRS OR MORE [facility] [place] [facility] Nov 05, 2021 10:30 AM VA-TOBACCO FORMER USER [facility] [place] [facility] Nov 05, 2021 10:30 AM VA-TOBACCO QUIT 1 TO < 5 YRS [facility] Sep 14, 2020 02:00 PM VA-TOBACCO FORMER USER [facility] Sep 14, 2020 02:00 PM VA-TOBACCO QUIT 5 TO < 15 YRS [facility] Jan 22, 2018 03:40 PM QUIT TOBACCO USE > 7 YEARS AGO [facility] Jun 04, 2016 02:01 PM CURRENT SMOKER been smoking pass 20 yrs [facility] Jun 04, 2016 02:01 PM V1-PT DECLINES REF TO TOBACCO CESS PRGM [facility] Jun 04, 2016 02:01 PM V1-PT THINKING ABOUT QUIT TOBACCO USE [facility] Jul 18, 2014 03:31 PM V1-PT DECLINES REF TO TOBACCO CESS PRGM [facility] Jul 18, 2014 03:31 PM V1-PT DECLINES TOBACCO CESSATION MEDS [facility] Jul 18, 2014 03:31 PM V1-PT NOT INTERESTED IN QUIT TOBACCO USE [facility] Jan 09, 2014 10:43 AM CURRENT SMOKER pt smokes 1 pk of cigarettes per day. [facility] Jan 09, 2014 10:43 AM V1-PT THINKING ABOUT QUIT TOBACCO USE [facility] Aug 28, 2003 10:47 AM CURRENT SMOKER one pack q 6 days - he has cut down from 3 PPD. He is in the process of quitting [facility] Encounter Notes: All associated encounter notes This section contains the clinical notes associated to the Encounter. Date/Time Encounter Note(s) Provider Source Dec 15, 2024 01:06 PM TELEHEALTH CONSULT : LOCAL TITLE: CONSULT REPORT/TELEDERMATOLOGY IMAGING REQUEST STANDARD TITLE: TELEHEALTH CONSULT DATE OF NOTE: DEC 15, 2024@13:06:54 ENTRY DATE: DEC 15, 2024@13:06:54 AUTHOR: WAGNER SLADE COSIGNER: URGENCY: STATUS: COMPLETED Please refer to Inter-facility Consult for results. Automatically generated note - signature not required. Electronically Filed: 12/15/2024 by: WAGNER YEN [facility]
--- OUTSIDE RECORDS SUMMARY | 2024-12-21 11:56 | XMS_ITS ---
Author Name [facility] [place] Organization [facility] [place] Address [address] [place] [address] Care Team Providers Care Chemical Weigher Name Role Phone BERE RIOS Primary Care [...] Paul's Name Patient's Relationship to Policy Paul [facility] CE ORGANIZAT ION TNIA [facility] Apr 18, 2018 [id number] WILLISEDILBERTO LEIVA SPOUSE ANTHEM BCBS OF [place] (BLUECARD) [facility] CE ORGANIZAT ION MIIA [facility] Apr 18, 2018 [id number] [phone] WILLIS,EDILBERTO WONG SPOUSE BCBS [facility] CE ORGANIZ [facility] ACTIV E Apr 18, 2018 [id number] [phone] WILLIS,EDILBERTO SOTELOZA SPOUSE BCBS OF [facility] CE ORGANIZAT ION TNIA [facility] Apr 18, 2018 [id number] WILLIS,MAR JUDITH PATIENT BCBS OF [facility] CE ORGANIZAT ION [facility] Apr 18, 2018 [id number] WILLIS,MAR JUDITH SPOUSE BCBS OF [place] PREFERRED PROVIDER ORGANIZAT ION (PPO) [facility] AC Apr 18, 2018 [id number] [phone] WILLIS,MAR JUDITH SPOUSE BCBS OF [facility] CE ORGANIZAT ION [facility] ACT Apr 18, 2018 [id number] WILLIS,MAR JUDITH SPOUSE BCBS OF [facility] CE ORGANIZ BRENDA [facility] AC Apr 18, 2018 [id number] [phone] WILLIS,MAR JUDITH SPOUSE [place] PRESCRIPT ION BRENDA [facility] O Oct 19, 2022 [id number] WILLIS,MAR JUDITH SPOUSE [place] PRESCRIPT ION RX22M A Oct 19, 2022 [id number] WILLIS,LAVELLE AEL PATIENT [place] PRESCRIPT ION RX22M B Oct 19, 2022 [id number] WILLIS,LAVELLE AEL PATIENT [place] PRESCRIPT ION BRENDA [facility] AC Oct 19, 2022 [id number] [phone] WILLIS,LAVELLE AEL SPOUSE [place] PRESCRIPT ION RX Oct 19, 2022 [id number] [id number] [phone] WILLIS,MAR JUDITH SPOUSE [place] PRESCRIPT ION BCBS OF [place] Oct 19, 2022 [id number] WILLIS, SPOUSE [place] ([id number]) PRESCRIPT ION [place] OF [place] Oct 19, 2022 [id number] [phone] WILLIS,MAR JUDITH SPOUSE [place] BCBS ([facility] CE ORGANIZAT ION [facility] RSD AC Apr 18, 2018 [id number] [phone] WILLISEDILBERTO SPOUSE [employer] ([id number]) PRESCRIPT ION Apr 18, 2018 L4TA [id number] WILLISEDILBERTO SPOUSE [employer] ([id number]) PRESCRIPT ION L4TA Apr 18, 2018 L4TA [id number] [phone] WILLIS,EDILBERTO WONG SPOUSE [employer] ([id number]) PRESCRIPT ION L4TA* Apr 18, 2018 L4TA [id number] WILLISEDILBERTO SPOUSE [employer] ([id number]) PRESCRIPT ION Apr 18, 2018 L4TA [id number] [phone] WILLISEDILBERTO Lynn SPOUSE [employer] PRESCRIPT ION BCBS OF [place] Apr 18, 2020 L4TA [phone] WILLIS,EDILBERTO WONG SPOUSE [facility] CE ORGANIZAT ION W/OUT OF NETWORK BENEFITS [facility] RSD ACT Apr 18, 2018 [id number] [phone] EDILBERTO PEDRO SPOUSE [place] BCBS [facility] (BLUECARD) [facility] CE ORGANIZAT ION [facility] RSD AC Apr 18, 2018 [id number] WILLISEDILBERTO SPOUSE MEDICARE (WN) MEDICARE () PART A Mar 19, 1990 PART A [id number] [phone] WILLISLAVELLE AEL PATIENT MEDICARE (WNR) MEDICARE () PART A Mar 19, 1990 PART A [id number] [phone] WILLIS,LAVELLE AEL PATIENT MEDICARE (WNR) MEDICARE () PART A Mar 19, 1990 PART A [id number] WILLIS,LAVELLE AEL PATIENT MEDICARE (WNR) MEDICARE () PART A Mar 19, 1990 PART A [id number] [phone] WILLISLAVELLE AEL PATIENT MEDICARE (WNR) MEDICARE (M) PART A Mar 19, 1990 PART A [id number] [phone] WILLIS,LAVELLE AEL PATIENT MEDICARE (WNR) MEDICARE (M) PART A Mar 19, 1990 PART A [id number] [phone] WILLIS,LAVELLE AEL PATIENT MEDICARE (WNR) MEDICARE (M) PART A Mar 19, 1990 PART A [id number] WILLIS,LAVELLE AEL PATIENT MEDICARE (WNR) MEDICARE (M) PART A Mar 19, 1990 PART A [id number] WILLIS,LAVELLE AEL PATIENT MEDICARE (WNR) MEDICARE (M) PART A Mar 19, 1990 PART A [id number] [phone] WILLIS,LAVELLE AEL PATIENT MEDICARE (WNR) MEDICARE (M) PART A Mar 19, 1990 PART A [id number] [phone] WILLISLAVELLE AEL PATIENT MEDICARE (WNR) MEDICARE (M) PART A Mar 19, 1990 PART A [id number] WILLISLAVELLE AEL PATIENT Selected Encounter This section includes the information on record at [place] for the Encounter. Date/Time Encounter Type Encounter Description Reason Provider Source Jun 14, 2024 08:55 AM [facility]REASSESS[facility] E[facility] CAREGIVER SUPPORT PROGRAM ICD-10-CM Z74.1 Need for assistance with personal care JESSICA CALLE [facility] Encounter Template Text not used by [place] Assessments - Encounter Diagnoses This section includes the primary and secondary diagnoses documented for the Encounter. Date/Time Primary/Secondary Diagnosis Diagnosis Name Provider Source Jun 30, 2024 07:20 AM PRIMARY Need for assistance with personal care JESSICA CALLE [place] [facility] [place] [facility] Plan of Treatment: Future Appointments [...] MEDICINE [facility] [place] [facility] Jul 08, 2024 10:30 AM AMBULATORY - MEDICINE [facility] [place] [facility] Jul 13, 2024 09:30 AM AMBULATORY - MEDICINE [facility] [place] [facility] Aug 12, 2024 09:30 AM AMBULATORY - MEDICINE [facility] [place] [facility] Aug 22, 2024 09:00 AM AMBULATORY - MEDICINE [facility] [place] [facility] Sep 21, 2024 09:00 AM AMBULATORY - MEDICINE [facility] [place] [facility] Sep 21, 2024 10:00 AM AMBULATORY - MEDICINE [facility] [place] [facility] Nov 09, 2024 11:30 AM AMBULATORY - MEDICINE [facility] [place] [facility] Nov 28, 2024 09:30 AM AMBULATORY - MEDICINE [facility] [place] [facility] Dec 02, 2024 08:30 AM AMBULATORY - MEDICINE [facility] [place] [facility] Dec 15, 2024 10:30 AM AMBULATORY - MEDICINE [place] C [facility] [place] [facility] Lab Results: +/- 30 days [...] 2024 12:25 PM [facility] [place] [facility] MICROALBUMIN CREATININE RATIO PANEL Specimen Type: URINE No comment entered. Ordering Provider: LINDA PERSON Report Released Date/Time: Jun 01, 2024 11:53 AM Reporting Lab: [facility] [place] [facility] [address] [facility] [address] Performing Lab: [facility] [address] MICROALBUMIN/C REATININE RATIO 10.8 mg/g 0-29.9 MICROALBUMIN,Q UANTITATIVE 1.1 mg/dL RR UNAVAIL CREATININE URINE 101.63 mg/dL Jun 01, 2024 10:38 AM [facility] HEMOGLOBIN A1C PANEL Specimen Type: [...] May 30, 2024 10:29 AM Reporting Lab: [address] [address] Performing Lab: [address] [address] HEMOGLOBIN A1C 5.8 H 4.0-5.6 Jun 01, 2024 10:38 AM [facility] BASIC METABOLIC PANEL (non-fasting) Specimen Type: SERUM No comment entered. Ordering Provider: LINDA PERSON Report Released Date/Time: May 30, 2024 10:29 AM Reporting Lab: [address] [address] Performing Lab: [address] [address] UREA NITROGEN 13 mg/dL 7-25 GLUCOSE 115 mg/dL H 65-100 SODIUM 140 mmol/L 135-145 POTASSIUM 4.3 mmol/L 3.5-5.0 CHLORIDE 107 mmol/L 100-110 CO2 21 meq/L 20-30 CREATININE, Serum 0.84 mg/dL 0.50-1.40 eGFR(CKD-EPI 2020) >90 mL/min >60 Jun 01, 2024 10:38 AM [facility] LIPID PANEL, NON FASTING Specimen Type: SERUM No comment entered. Ordering Provider: LINDA PERSON Report Released Date/Time: Jun 01, 2024 10:12 AM Reporting Lab: [place] [address] [facility] [address] Performing Lab: [place] [facility] [place] [facility] [address] [facility] [address] CHOLESTEROL 126 mg/dL TRIGLYCERIDE 114 mg/dL 0-150 [...] took place. Date/Time Current Smoking Status Comment [facility] Nov 27, 2023 11:00 AM VA-TOBACCO FORMER USER [place] [facility] [place] [facility] Tobacco Use History This section includes a history of the smoking, or tobacco-related health factors, that were collected on or before the date of the Encounter. The data comes from the [place] facility where the Encounter took place. Date/Time Smoking Status/Tobac co Use Comment [facility] Nov 27, 2023 11:00 AM VA-TOBACCO QUIT 15 YRS OR MORE [facility] [place] [facility] Dec 02, 2022 08:00 AM VA-TOBACCO FORMER USER [facility] [place] [facility] Dec 02, 2022 08:00 AM VA-TOBACCO QUIT 15 YRS OR MORE [facility] [place] [facility] Nov 05, 2021 10:30 AM VA-TOBACCO FORMER USER PR [facility] [place] [facility] Nov 05, 2021 10:30 AM VA-TOBACCO QUIT 1 TO < 5 YRS [facility] [place] [facility] Sep 14, 2020 02:00 PM VA-TOBACCO FORMER USER [facility] [place] [facility] Sep 14, 2020 02:00 PM VA-TOBACCO QUIT 5 TO < 15 YRS [facility] [place] [facility] Jan 22, 2018 03:40 PM QUIT TOBACCO USE > 7 YEARS AGO [facility] [place] [facility] Jun 04, 2016 02:01 PM CURRENT SMOKER been smoking pass 20 yrs [facility] [place] [facility] Jun 04, 2016 02:01 PM V1-PT DECLINES REF TO TOBACCO CESS PRGM [facility] Jun 04, 2016 02:01 PM V1-PT THINKING ABOUT QUIT TOBACCO USE [facility] Jul 18, 2014 03:31 PM V1-PT DECLINES REF TO TOBACCO CESS PRGM [facility] Jul 18, 2014 03:31 PM V1-PT DECLINES TOBACCO CESSATION MEDS [facility] Jul 18, 2014 03:31 PM V1-PT NOT INTERESTED IN QUIT TOBACCO USE [facility] Jan 09, 2014 10:43 AM CURRENT SMOKER pt smokes 1 pk of cigarettes per day. [facility] Jan 09, 2014 10:43 AM V1-PT THINKING ABOUT QUIT TOBACCO USE [facility] Aug 28, 2003 10:47 AM CURRENT SMOKER one pack q 6 days - he has cut down from 3 PPD. He is in the process of quitting [facility] Encounter Notes: All associated encounter notes This section contains the clinical notes associated to the Encounter. Date/Time Encounter Note(s) Provider Source Jun 14, 2024 09:00 AM CAREGIVER CERTIFIC ATE: LOCAL TITLE: [facility] PCAFC ASSESSMENT STANDARD TITLE: CAREGIVER CERTIFICATE DATE [...] Time spent in session: 90 Identified the Delight using full name and the following other woods identifier(s): Full name: CHAYA PEDRO Full SSN: [id number] Date of : Nov Method of Contact: Video Telehealth confirms location is safe and private for visit. Delight Contact Details: Best contact number for backup/emergency communication: PATIENT PHONE - Location/Surroundings During Visit: location during visit: Home [address], [place] [address] Visit conducted by clinical video telehealth. Delight verbal consent obtained. Location/emergency number confirmed. Reviewed limits of confidentiality with the and caregiver/applicant(s). Brief description of why the Delight and caregiver/applicant(s) are applying to or participating [...] LIVING SITUATION The following live in the 's household: Name: Katie Pedro Age: 68 Relationship: Special needs: none reported Name: Jessica Pedro Age: 12 Relationship: granddaughter Special needs: none reported The does not provide care for anyone in the household. The Delight participates in care of the home/property. Activities that Delight participates in and level of involvement: Vet reports, I pass the dust mop. I vacuum. I do dishes. I help out. I feed the birds. I feed and take care of the dog. When the dog does her thing I clean her pad. Not much cleaning. I do what I can. Not like before. I can't help her like I use to. The does not drive independently. When did last drive: 3 years ago Additional information: [...] still got the flashes. EMPLOYMENT HISTORY The Delight is not currently employed. When was last employed? 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 EDUCATION HISTORY The Delight does not have any barriers to education. The Delight is not attending school. The Delight is or wishes to pursue enrollment: No SOCIAL HISTORY What does the Delight's typical day look like? Vet reports, I [...] report 's hobby use to be cleaning. Delight reports, I use to be put my [...] Bere Rios NP last appt 06/01/24 The is currently receiving VA specialty care. Provider's name: Optometry NABILA STERLING, OPTOMETRY STUDENT & DHAVAL CRAIG OD last appt 01/13/24 Endocrine - Dr. Lucie Purcell last appt 12/07/23 Pertinent notes Neurology 07/08/22 OT 11/19/21 The Delight is not currently receiving VA Mental Health or Substance Use treatment. The Delight receives care outside of [place]. Details: [facility] [address] [facility] [address] [facility] [address] [phone] TAX ID #[id number] Dr. Simmons, last time saw him in 02/2024, next TBD kidney stones, pending surgery [address] [address] P:[phone] F:[phone] last appt April 2024 The Delight has JIM on file. Date of release: Community care providers The Delight will be submitting community records for inclusion in their VA medical record. Type of records: Urology & Dental MEDICAL HISTORY Significant past medical history/treatment: Kidney stones - 1976 head injury which led to a dx of epilepsy. [facility] hospitalization. Vet reports he began to experience seizures since that time. - ?? Dislocated left shoulders While in the service - 2021 dx with DM Vet reports vision difficulties, in where he will have flashes of light making it difficult for him to see. reports his left eye is often blurry [...] stones ER in the past year 05/19/24 [facility] - ER facial numbness (left side) 04/19/24 [facility] ER facial numbness (left side) 04/21/24 [facility] ER facial numbness and loss vision 03/21/24 [facility] ER chest pain and difficulties swallowing. [facility]: ER uploaded 04/19/24, 04/20/24, 03/21/24 Urology uploaded 03/04/24, 12/01/23 Renal ultrasound, uploaded 02/18/24, 11/13/23 The Delight has chronic pain. Pain is primarily located: [...] cg support Nonpharmacological treatments for pain: Massages, Vet reports, I do a lot of cold and hot compresses. Heating pads help. I move my legs exercises. The does not have a typical exercise/activity routine. The Delight reports concerns regarding memory and/or cognition. How does this impact 's daily activities? vet reports difficulties with short term memory The [...] because it helps with the seizures. On new years I have me a good drink of 'mamajuana' (traditional drink) on but that's it. [facility] dual dx admissions 01/10/98-01/15/98 06/04/99-06/05/99 03/23/01-04/29/01 08/09/02-08/11/02 Yeimi reports a PTSD dx as a result of his experience. Medical records indicate carried past dx of Bipolar d/o and Schizoaffective disorder. Savanna reports in the he had multiple inpatient dual dx admissions however they have decreased and then ceased after he stopped abusing etoh and cocaine. reports he's been involved with outpatient mental health tx off and on since the . Delight last saw Dr. RENO FAULKNER on 11/30/01 at the [facility]. Savanna denies any past hx of suicide attempts. [...] with other people? Not difficult at all [place] Suicide Severity Rating Scale (C-SSRS) screener 1. [...] due to responses to other questions. The Delight reports that there are no current or past concerns regarding IPV domestic violence or safety. The Delight reports currently feeling safe in their home. [...] fish. Current tobacco use: Not at all has access to opioids: No Other addictive behaviors (i.e. gambling, sex, darling, etc.): Not at all The is not currently receiving VA Alcohol/Substance Abuse treatment. The Delight is not interested in a referral for VA Alcohol/Substance Abuse treatment at this time. Delight has access to firearms: No The was offered information on the Delight's Crisis Line, including contact number: [address] for [employer] and/or [employer] [phone] LEGAL/FINANCIAL HISTORY The does not report any current legal concerns. The does not report any current personal financial concerns. CURRENT GOALS Delight's stated overall functional goals: Symptom Management Keep safe from inadvertently hurting myself when experiencing a seizure How does the report that the caregiver supports the 's overall goals? Savanna reports, A lot. She helps me by being here with me. That right there helps because sometimes I can't tell when the seizures are coming. She helps me get dressed and bathe. I'm scared to bathe by myself. SUPPORT SERVICES The is not currently receiving home care services. Support services currently used:* None Discussion about [place] Personal Care Services and [facility] enrollment/participation: Not applicable = CAREGIVER INPUT SECTION [...] assistance that the caregiver provides to address 's needs in completing activities of daily living: [...] with our granddaughter. Caregiver's description of how car packer and meal planning are performed, who performs the duties, and any established routines: Caregiver does all of the meal planning and most of the car packer. Vet reports, I pass the dust mop. I vacuum. I do dishes. I help out. I feed the birds. I feed and take care of the dog. When the dog does her thing I clean her pad. Not much cleaning. I do what I can. Not like before. I can't help her like I use to. needs assistance with the car packer and/or family activities that he/she completes. Details: None reported. CG states if can't do the chore he just wont because he doesn't feel well. CG states only does light chores according to how he feels. The Delight does not drive independently. The caregiver attends the Delight's medical and/or mental health appointments with him/her. Details: This caregiver attends 's medical appointments with him. Caregiver's knowledge and understanding of the treatment recommendations for the Delight: Caregiver has adequate knowledge and understanding of this 's treatment recommendations. The caregiver reports concerns for the Delight's safety. Caregiver reports falling is her biggest concern as a result of his poor vision/flashes in vision and seizures Caregiver's description of strategies used to address problems has in maintaining safety as well as the type of assistance the caregiver provides: Caregiver is present and supporting 11/05 Caregiver follows through with the doctor appointments and treatment recommendations. Type of preparations the caregiver needs to complete for the Delight in their absence: CG reports, First I [...] house. The Caregiver does not assist the Delight with any additional concerns and/or additional care needs. SUMMARY OF VISIT: 39 years. [facility] staff conducted this visit as part of the initial assessment of the application process for the Program of Comprehensive Assistance for Family Caregivers (PCAFC). See above for detailed list of type/level of assistance provided by caregiver. Caregiver provides assistance with ADLs and IADLs. and Caregiver were pleasant, open, and forthcoming during the comprehensive assessments. CG reports she and this have been for 38 years. Sort Supervisor provided information and answered questions related to the PCAFC application process and eligibility requirements. Sort Supervisor to submit consult for ZITA. /gaetano/ JESSICA HOUSER LCSW CAREGIVER SUPPORT SALES AND SERVICE AGENT Signed: 06/21/2024 08:03 JESSICA CALLE PR CNTR [facility]
--- OUTSIDE RECORDS SUMMARY | 2024-12-21 11:56 | XMS_ITS ---
Author Name [facility] [facility] [place] [facility] [place] [facility] [place] Address [address] [place] [address] Care Team Providers Care Basketball Commentator Name Role Phone ELIZABET ROBINS Primary Care [...] Paul's Name Patient's Relationship to Policy Paul [facility] CE ORGANIZAT ION [facility] AC Apr 18, 2018 [id number] [phone] WILLISEDILBERTOZA SPOUSE ANTHEM [place] ([place]ARD) HEALTH MAINTENAN CE ORGANIZAT ION [facility] Apr 18, 2018 [id number] WILLIS,EDILBERTO SOTELOZA SPOUSE BCBS [facility] CE ORGANIZ [facility] SHARE ACTIV E Apr 18, 2018 [phone] WILLIS,MAR JUDITH SPOUSE BCBS OF [facility] CE ORGANIZAT ION [facility] Apr 18, 2018 [id number] WILLIS,MAR JUDITH PATIENT BCBS OF [facility] CE ORGANIZAT ION BRENDA MCCABE [facility] Apr 18, 2018 [id number] WILLIS,MAR JUDITH SPOUSE BCBS OF [place] PREFERRED PROVIDER ORGANIZAT ION (PPO) [facility] AC Apr 18, 2018 [id number] [phone] WILLIS,MAR JUDITH SPOUSE BCBS OF [facility] CE ORGANIZAT ION BRENDA MCCABE [facility] ACT Apr 18, 2018 [id number] WILLIS,MAR JUDITH SPOUSE BCBS OF [facility] CE ORGANIZ [facility] AC Apr 18, 2018 [id number] [phone] WILLIS,MAR JUDITH SPOUSE [place] PRESCRIPT ION BCBS OF [place] Oct 19, 2022 [id number] WILLIS, SPOUSE [place] PRESCRIPT ION RX22M A Oct 19, 2022 RX22MA [id number] WILLIS,LAVELLE AEL PATIENT [place] PRESCRIPT ION RX22M B Oct 19, 2022 RX22MB [id number] WILLIS,LAVELLE AEL PATIENT [place] PRESCRIPT ION BRENDA MCCABE [facility] AC Oct 19, 2022 [id number] [phone] WILLIS,LAVELLE AEL SPOUSE [place] PRESCRIPT ION [facility] Oct 19, 2022 RX22MB [id number] [phone] WILLIS,MAR JUDITH SPOUSE [place] PRESCRIPT ION RX Oct 19, 2022 RX22MC [id number] [phone] WILLIS,MAR JUDITH SPOUSE [place] ([id number]) PRESCRIPT ION BCBS OF [place] Oct 19, 2022 [id number] [phone] WILLIS,MAR JUDITH SPOUSE [place] BC[place] ([facility] CE ORGANIZAT ION [facility] AC Apr 18, 2018 [id number] WILLISEDILBERTO SPOUSE [employer] ([id number]) PRESCRIPT ION Apr 18, 2018 L4TA [id number] WILLIS,EDILBERTO WONG SPOUSE [employer] ([id number]) PRESCRIPT ION L4TA* Apr 18, 2018 L4TA [id number] WILLISEDILBERTO SPOUSE [employer] ([id number]) PRESCRIPT ION L4TA Apr 18, 2018 L4TA [id number] WILLISEDILBERTO SPOUSE [employer] ([id number]) PRESCRIPT ION Apr 18, 2018 L4TA [id number] WILLISEDILBERTO SPOUSE [employer]-MINOR BROGATION PRESCRIPT ION BCBS OF [place] Apr 18, 2020 L4TA [id number] [phone] WILLIS,EDILBERTO WONG SPOUSE [place] [employer] ([facility]) [facility] CE ORGANIZAT ION W/OUT OF NETWORK BENEFITS [facility] R[facility] ACT Apr 18, 2018 [id number] EDILBERTO METCALF SPOUSE [place] [facility] CE ORGANIZAT ION [facility] R[facility] AC Apr 18, 2018 [id number] WILLISEDILBERTO SPOUSE MEDICARE (WNR) MEDICARE () PART A Mar 19, 1990 PART A [id number] WILILSLAVELLE AEL PATIENT MEDICARE (WN) MEDICARE () PART A Mar 19, 1990 PART A [id number] WILLIS,LAVELLE AEL PATIENT MEDICARE (WNR) MEDICARE () PART A Mar 19, 1990 PART A [id number] [phone] WILLIS,LAVELLE AEL PATIENT MEDICARE (WNR) MEDICARE () PART A Mar 19, 1990 PART A [id number] WILLIS,LAVELLE AEL PATIENT MEDICARE (WNR) MEDICARE (M) PART A Mar 19, 1990 PART A [id number] WILLIS,LAVELLE AEL PATIENT MEDICARE (WNR) MEDICARE (M) PART A Mar 19, 1990 PART A [id number] WILLIS,LAVELLE AEL PATIENT MEDICARE (WNR) MEDICARE (M) PART A Mar 19, 1990 PART A [id number] WILLIS,LAVELLE AEL PATIENT MEDICARE (WNR) MEDICARE (M) PART A Mar 19, 1990 PART A [id number] [phone] [id number] WILLIS,LAVELLE AEL PATIENT MEDICARE (WNR) MEDICARE (M) PART A Mar 19, 1990 PART A [id number] WILLIS,LAVELLE AEL PATIENT MEDICARE (WNR) MEDICARE (M) PART A Mar 19, 1990 PART A [id number] WILLIS,LAVELLE AEL PATIENT MEDICARE (WNR) MEDICARE (M) PART A Mar 19, 1990 PART A [id number] WILLIS,LAVELLE AEL PATIENT Selected Encounter This section includes the information on record at [place] for the Encounter. 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 This section includes future appointments and future orders which are active, pending or scheduled. Future Appointments This section includes appointments that were scheduled to occur 6 months from the date of the Encounter, up to a maximum of 20 appointments. The data comes from all [place] treatment facilities. Appointment Date/Time Appointment Type Appointme nt Facility Name Aug 12, 2024 09:30 AM AMBULATORY - MEDICINE [place] [facility] [place] [facility] Aug 22, 2024 09:00 AM AMBULATORY - MEDICINE [place] [facility] [place] [facility] Sep 21, 2024 09:00 AM AMBULATORY MEDICINE [place] [facility] Sep 21, 2024 10:00 AM AMBULATORY MEDICINE [place] [facility] [place] [facility] Nov 09, 2024 11:30 AM AMBULATORY MEDICINE [place] [facility] [place] [facility] Nov 28, 2024 09:30 AM AMBULATORY MEDICINE [place] [facility] [place] [facility] Dec 02, 2024 08:30 AM AMBULATORY MEDICINE [place] [facility] [place] [facility] Dec 15, 2024 10:30 AM AMBULATORY - MEDICINE [place] [facility] Dec 16, 2024 10:20 AM AMBULATORY - MEDICINE [place] [facility] [place] [facility] Vital Signs: All taken on the encounter date This section contains inpatient and outpatient Vital Signs collected on the date of the Encounter. Date/Time Temperature Pulse Blood Pressure Respiratory Rate SP02 Pain Height Weight Body Mass Index Source Jul 13, 2024 09:47 AM 88 122/86 16 94 4 [place] [facility] [facility] Immunizations: All administered on the encounter [...] and tobacco- related health factors from the [place] facility where the Encounter took place. Current Smoking Status This section includes the most current smoking, or tobacco-related health factor, from the [place] facility where the Encounter took place. Date/Time Current Smoking Status Comment [facility] Nov 27, 2023 11:00 AM [place]-TOBACCO QUIT 15 YRS OR MORE [facility] Tobacco Use History This section includes a history of the smoking, or tobacco-related health factors, that were collected on or before the date of the Encounter. The data comes from the [place] facility where the Encounter took place. Date/Time Smoking Status/Tobac co Use Comment Facility Nov 27, 2023 11:00 AM VA-TOBACCO QUIT 15 YRS OR MORE [place] [facility] [place] [facility] Dec 02, 2022 08:00 AM VA-TOBACCO FORMER USER [place] [facility] Dec 02, 2022 08:00 AM VA-TOBACCO QUIT 15 YRS OR MORE [facility] [place] [place] [facility] Nov 05, 2021 10:30 AM VA-TOBACCO FORMER USER [facility] Nov 05, 2021 10:30 AM VA-TOBACCO QUIT 1 TO < 5 YRS [facility] [place] [facility] Sep 14, 2020 02:00 PM VA-TOBACCO FORMER USER [place] [facility] Sep 14, 2020 02:00 PM VA-TOBACCO QUIT 5 TO < 15 YRS [place] [facility] [place] [facility] Jan 22, 2018 03:40 PM QUIT TOBACCO USE > 7 YEARS AGO [facility] [place] [facility] Jun 04, 2016 02:01 PM CURRENT SMOKER been smoking pass 20 yrs [place] [facility] [place] [facility] Jun 04, 2016 02:01 PM V1-PT DECLINES [facility]F [facility] [place] [facility] Jun 04, 2016 02:01 PM V1-PT THINKING ABOUT QUIT TOBACCO USE [place] [facility] [place] [place] [facility] Jul 18, 2014 03:31 PM V1-PT DECLINES REF TO TOBACCO CESS [facility] [place] [facility] [place] [place] [facility] Jul 18, 2014 03:31 PM V1-PT DECLINES TOBACCO CESSATION MEDS [facility] Jul 18, 2014 03:31 PM V1-PT NOT INTERESTED IN QUIT TOBACCO USE [facility] Jan 09, 2014 10:43 AM CURRENT SMOKER pt smokes 1 pk of cigarettes per day. [facility] Jan 09, 2014 10:43 AM V1-PT THINKING ABOUT QUIT TOBACCO USE [facility] Aug 28, 2003 10:47 AM CURRENT SMOKER one pack q 6 days - he has cut down from 3 PPD. He is in the process of quitting [facility] Encounter Notes: All associated encounter notes [...] advance directive on file at any facility, [place] or outside. S/he is not interested in completing one at this time. The patient received education about Advance Directives and written notification of his/her rights. Influenza Immunization: The patient has received the seasonal influenza vaccine for the current season at another location. Documented: INFLUENZA, UNSPECIFIED FORMULATION Historical Date Administered: Jul 03, 2024 Outside Location: [facility] Information Source: FROM PATIENT'S WRITTEN RECORD Sexual Orientation: The patient thinks of their sexual orientation as: Straight or Heterosexual COVID-19 Immunization: Moderna Monovalent (Spikevax) Administered: COVID-19 (MODERNA), MRNA, LNP-S, PF, 50 MCG/0.5 ML (AGES 12+ YEARS) Date Administered: Jul 13, 2024 09:30 Series: Booster Quality Compliance Manager: [employer] Lot: [id number] Exp Date: March 11, 2025 [facility]: [phone] Admin Route/Site: INTRAMUSCULAR/LEFT DELTOID Dosage: 0.5mL Vaccine Information Statement(s): COVID-19 MRNA VACCINE (12+ YRS) VACCINE VIS Aug 06, 2023 ([facility]OL[facility]) Order By: Policy Administered By: Bina Lancaster Override Reason: Changed mind Vaccine administered without complications. /gaetano/ BINA LANCASTER, MSN, RN, CNL PRIMARY CARE TEAM NURSE Signed: 07/13/2024 09:51 [place] [facility] [facility] [facility] Jul 13, 2024 09:44 AM PRIMARY CARE [...] [place] Was admitted to [facility] for SZ activity, sx starting with [...] with taking medication. He has appt already [facility] neurology Dr Hardin in a few weeks. [...] caused by toxin 12. Diverticulosis [facility] 13. Galeas's esophagus EGD 09/02/16 Dr. Hampton 14. Rosacea 15. Deep venous thrombosis of upper extremity LUE, basilic vein 16. Nephrolithiasis On CT at [facility] 02/07/2015. 17. Hyperlipidemia Total chol/HDL/LDL/trigs: 154/41/84/145 (04/08/22). F/U to discuss statin w/ T2DM 18. Lower urinary tract symptoms due to benign prostatic hypertrophy (SNOMED CT PSA normal (04/08/22) 19. Family history of prostate cancer Father and three brothers. 20. Schizoaffective disorder (SNOMED CT 10472281) 21. Alcohol dependence (SNOMED CT 89968115) episodic 22. Periodontal Disease NEC 23. GERD [...] of active outpatient prescriptions dispensed from this [place] (local) and dispensed from another [place] or [facility] facility (remote) as [...] Nurse Practitioner Signed: 07/14/2024 13:09 ELIZABET ROBINS [place] [facility]
--- OUTSIDE RECORDS SUMMARY | 2024-12-21 11:56 | XMS_ITS | Encounter Summary ---
Author Name [facility] [place] [facility] [place] Address [address] [place] [address] Care Team Providers Care Top Lifter Name Role Phone ELIZABET ROBINS Primary Care [...] Policy Paul [facility] CE ORGANIZAT ION INIA [facility] AC Apr 18, 2018 [id number] [phone] WILLISEDILBERTO LynnZA SPOUSE ANTHEM BCBS OF [place] (BLUECARD) HEALTH MAINTENAN CE ORGANIZAT ION [facility] Apr 18, 2018 [id number] WILLIS,EDILBERTO SOTELOZA SPOUSE BCBS [facility] ORGANIZ [facility] SHARE ACTIV E Apr 18, 2018 [id number] WILLIS,MAR JUDITH SPOUSE BCBS OF [facility] ORGANIZ[facility] ION MIIA [facility] Apr 18, 2018 [id number] WILLIS,MAR JUDITH PATIENT BCBS OF [facility] CE ORGANIZAT ION BRENDA MCCABE RSD Apr 18, 2018 [id number] WILLIS,MAR JUDITH SPOUSE BC[place] OF [place] PREFERRED PROVIDER ORGANIZAT ION (PPO) [facility] AC Apr 18, 2018 [id number] WILLIS,MAR JUDITH SPOUSE BCBS OF [facility] CE ORGANIZAT ION BRENDA MCCABE RSD ACT Apr 18, 2018 [id number] WILLIS,EDILBERTO JUDITH SPOUSE BCBS OF [facility] CE ORGANIZ BRENDA MCCABE RSD AC Apr 18, 2018 [id number] [phone] WILLIS,MAR JUDITH SPOUSE [place] PRESCRIPT ION BCBS OF [place] Oct 19, 2022 [phone] WILLIS, SPOUSE [place] PRESCRIPT ION RX22M A Oct 19, 2022 RX22MA [id number] WILLIS,LAVELLE AEL PATIENT [place] PRESCRIPT ION RX22M B Oct 19, 2022 [id number] WILLIS,LAVELLE AEL PATIENT [place] PRESCRIPT ION BRENDA MCCABE RSD AC Oct 19, 2022 [id number] WILLIS,LAVELLE AEL SPOUSE [place] PRESCRIPT ION [facility] Oct 19, 2022 [phone] [phone] WILLIS,MAR JUDITH SPOUSE [place] PRESCRIPT ION RX Oct 19, 2022 [id number] [phone] WILLIS,MAR JUDITH SPOUSE [place] ([id number]) PRESCRIPT ION [place] OF [place] Oct 19, 2022 [id number] [phone] WILLIS,MAR JUDITH SPOUSE [place] ([facility] CE ORGANIZAT ION [facility] RSD AC Apr 18, 2018 [id number] WILLISEDILBERTO SPOUSE [employer] ([id number]) PRESCRIPT ION Apr 18, 2018 L4TA [id number] WILLISEDILBERTO SPOUSE [employer] ([id number]) PRESCRIPT ION L4TA* Apr 18, 2018 L4TA [id number] WILLISEDILBERTO SPOUSE [employer] ([id number]) PRESCRIPT ION L4TA Apr 18, 2018 L4TA [id number] WILLIS,EDILBERTO WONG SPOUSE [employer] ([id number]) PRESCRIPT ION Apr 18, 2018 L4TA [id number] [phone] WILLISEDILBERTO SPOUSE [employer]-MINOR BROGATION PRESCRIPT ION [place] OF [place] Apr 18, 2020 L4TA [phone] WILLIS,EDILBERTO WONG SPOUSE [place] [employer] ([facility]) [facility] CE ORGANIZAT ION W/OUT OF NETWORK BENEFITS [facility] RSD ACT Apr 18, 2018 [id number] EDILBERTO PEDRO SPOUSE [facility] CE ORGANIZAT ION [facility] RSD AC Apr 18, 2018 [id number] WILLISEDILBERTO SPOUSE MEDICARE (WNR) MEDICARE () PART A Mar 19, 1990 PART A [id number] WILLISLAVELLE AEL PATIENT MEDICARE (WN) MEDICARE () PART A Mar 19, 1990 PART A [id number] WILLIS,LAVELLE AEL PATIENT MEDICARE (WNR) MEDICARE () PART A Mar 19, 1990 PART A [id number] WILLIS,LAVELLE AEL PATIENT MEDICARE (WNR) MEDICARE () PART A Mar 19, 1990 PART A [id number] [phone] WILLIS,LAVELLE AEL PATIENT MEDICARE (WNR) MEDICARE (M) PART A Mar 19, 1990 PART A [id number] WILLIS,LAVELLE AEL PATIENT MEDICARE (WNR) MEDICARE (M) PART A Mar 19, 1990 PART A [id number] WILLIS,LAVELLE AEL PATIENT MEDICARE (WNR) MEDICARE (M) PART A Mar 19, 1990 PART A [id number] WILLIS,LAVELLE AEL PATIENT MEDICARE (WNR) MEDICARE (M) PART A Mar 19, 1990 PART A [id number] WILLIS,LAVELLE AEL PATIENT MEDICARE (WNR) MEDICARE (M) PART A Mar 19, 1990 PART A [id number] [phone] WILLIS,LAVELLE AEL PATIENT MEDICARE (WNR) MEDICARE (M) PART A Mar 19, 1990 PART A [id number] WILLIS,LAVELLE AEL PATIENT MEDICARE (WNR) MEDICARE (M) PART A Mar 19, 1990 PART A [id number] WILLIS,LAVELLE AEL PATIENT Selected Encounter This [...] care activities for the patient from all PA treatmentfacilities. This section includes future appointments and [...] 28, 2024 11:30 AM AMBULATORY - MEDICINE [facility] Jul 08, 2024 10:30 AM AMBULATORY MEDICINE [facility] Jul 13, 2024 09:30 AM [facility]ULAT[facility]ICINE [facility] [place] [facility] Aug 12, 2024 09:30 AM AMBULATORY - MEDICINE [facility] [place] [facility] Aug 22, 2024 09:00 AM AMBULATORY - MEDICINE [facility] [place] [facility] Sep 21, 2024 09:00 AM AMBULATORY - MEDICINE [facility] [place] [facility] Sep 21, 2024 10:00 AM AMBULATORY - MEDICINE [facility] [place] [facility] Nov 09, 2024 11:30 AM AMBULATORY - MEDICINE [facility] [place] [facility] Nov 28, 2024 09:30 AM AMBULATORY - MEDICINE [facility] [place] [facility] Dec 02, 2024 08:30 AM AMBULATORY - MEDICINE [facility] [place] [facility] Dec 15, 2024 10:30 AM AMBULATORY - MEDICINE [place] [facility] [place] [facility] Dec 16, 2024 10:20 AM AMBULATORY - MEDICINE [place] [facility] [place] [facility] Lab Results: +/- 30 days of the encounter This section includes the Chemistry and Hematology Lab Results on record with PA for the patient. Radiology Reports and Pathology Reports are provided separately, in subsequent sections. Lab Results This section contains the Chemistry/Hematology Results that were resulted 30 days before or 30 daysafter the date of the Encounter. Date/Time Source Result Type Result - Unit Interpretation Reference Range Comment Jun 01, 2024 12:25 [facility] MICROALBUMIN CREATININE RATIO PANEL Specimen Type: URINE No comment entered. Ordering Provider: LINDA PERSON Report Released Date/Time: Jun 01, 2024 11:53 AM Reporting Lab: [facility] [place] [facility] [address] [address] Performing Lab: [facility] [place] [facility] [address] [facility] [address] MICROALBUMIN/C REATININE RATIO 10.8 mg/g 0-29.9 MICROALBUMIN,Q UANTITATIVE 1.1 mg/dL RR UNAVAIL CREATININE URINE 101.63 mg/dL Jun 01, 2024 10:38 AM [facility] HEMOGLOBIN A1C PANEL Specimen [...] May 30, 2024 10:29 AM Reporting Lab: [address] [address] Performing Lab: [address] [address] HEMOGLOBIN A1C 5.8 H 4.0-5.6 Jun 01, 2024 10:38 AM [facility] BASIC METABOLIC PANEL (non-fasting) Specimen Type: SERUM No comment entered. Ordering Provider: LINDA PERSON Report Released Date/Time: May 30, 2024 10:29 AM Reporting Lab: [address] [address] Performing Lab: [address] [address] UREA NITROGEN 13 mg/dL 7-25 GLUCOSE 115 mg/dL H 65-100 SODIUM 140 mmol/L 135-145 POTASSIUM 4.3 mmol/L 3.5-5.0 CHLORIDE 107 mmol/L 100-110 CO2 21 meq/L 20-30 CREATININE, Serum 0.84 mg/dL 0.50-1.40 eGFR(CKD-EPI 2020) >90 mL/min >60 Jun 01, 2024 10:38 AM [facility] LIPID PANEL, NON FASTING Specimen Type: SERUM No comment entered. Ordering Provider: LINDA PERSON Report Released Date/Time: Jun 01, 2024 10:12 AM Reporting Lab: [address] [address] Performing Lab: [address] [address] CHOLESTEROL 126 mg/dL TRIGLYCERIDE 114 mg/dL 0-150 [...] Enrique sotelo Nov 27, 2023 11:00 AM PA-TOBACCO QUIT 15 YRS OR [facility] Tobacco Use History This section includes a history of the smoking, or tobacco-related health factors, that were collected on or before the date of the Encounter. The data comes from the PA facility where the Encounter took place. Date/Time Smoking Status/Tobac co Use Comment [facility] Nov 27, 2023 11:00 AM VA-TOBACCO QUIT 15 YRS OR MORE [facility] [place] [facility] Dec 02, 2022 08:00 AM VA-TOBACCO FORMER USER [facility] [place] [facility] Dec 02, 2022 08:00 AM PA-TOBACCO QUIT 15 YRS OR MORE [facility] [place] [facility] Nov 05, 2021 10:30 AM VA-TOBACCO FORMER USER [facility] [place] [facility] Nov 05, 2021 10:30 AM PA-TOBACCO QUIT 1 TO < 5 YRS [facility] [place] [facility] Sep 14, 2020 02:00 PM VA-TOBACCO FORMER USER [facility] [place] [facility] Sep 14, 2020 02:00 PM VA-TOBACCO QUIT 5 TO < 15 YRS [facility] [place] [facility] Jan 22, 2018 03:40 PM QUIT TOBACCO USE > 7 YEARS AGO [facility] [place] [facility] Jun 04, 2016 02:01 PM CURRENT SMOKER been smoking pass 20 yrs [facility] [place] [facility] Jun 04, 2016 02:01 PM V1-PT DECLINES REF TO TOBACCO CESS PRGM [facility] [place] [facility] Jun 04, 2016 02:01 PM V1-PT THINKING ABOUT QUIT TOBACCO USE [facility] [place] [facility] Jul 18, 2014 03:31 PM V1-PT DECLINES REF TO TOBACCO CESS PRGM [facility] Jul 18, 2014 03:31 PM V1-PT DECLINES TOBACCO CESSATION MEDS [facility] Jul 18, 2014 03:31 PM V1-PT NOT INTERESTED IN QUIT TOBACCO USE [facility] Jan 09, 2014 10:43 AM CURRENT SMOKER pt smokes 1 pk of cigarettes per day. [facility] Jan 09, 2014 10:43 AM V1-PT THINKING ABOUT QUIT TOBACCO USE [facility] Aug 28, 2003 10:47 AM CURRENT SMOKER one pack q 6 days - he has cut down from 3 PPD. He is in the process of quitting [facility] Encounter Notes: All associated encounter notes [...] Comprehensive Assistance for Family Caregivers is the [place]: CHAYA PEDRO Name of Primary Family Caregiver: Katie Pedro Reason(s) for denial: - or senior manager creative services does not require personal care services for a minimum of 6 continuous months based on an inability to perform an ADL and/or a need for supervision, protection or instruction Denial date: 06/23/2024 Staff provided/attempted verbal notification of denial on: 06/24/2024 Notification letter was mailed on: 06/24/2024 [facility] staff provided the following document(s): - [facility] Kraus Contact Information - Program of General Caregiver Support Services - [facility] Eligibility Criteria Fact Sheet - [place] Caregiver Support Program [employer] Appeal FAQs - [place] Form 10-305 Your Rights to Seek Further Review of [facility] Decisions [facility] staff provided information on the following resources and supports: - Other VA Services: https://www.va.gov/GERIATR ICS/ Chief Dispatcher Service called 's /caregiver. Chief Dispatcher Service reviewed the above mentioned. [place]'s /caregiver expressed disappointment as she dropped off her granddaughter and is rushing home as we speak because had a seizure. Chief Dispatcher Service reviewed she will include appeal options with the detailed denial letter. Chief Dispatcher Service also noted she & vet also have the option to reapply in the future. [place]'s /caregiver asked if she can be paid as this 's home health aid, as she is caring for who has a seizure disorder and quit her job in order to care for him at home. Chief Dispatcher Service reviewed will have to be assessed to determine his level of needs. Thereafter 's /caregiver will have to apply to work with a community home health aid agency who contracts with the VA in order to be paid as this 's home health aid. [place]'s /caregiver reports she is interested in being evaluated for ANTI AIR WARFARE OPERATIONS OFFICER services. Chief Dispatcher Service agreed to refer this and caregiver to the PCS/CAMMY team. [place]'s /caregiver agreed to contact selling underwriter with any further questions and or concerns. /gaetano/ JESSICA HOUSER LCSW CAREGIVER SUPPORT OVEN LOADER Signed: 06/24/2024 08:19 Receipt Acknowledged By: 06/24/2024 09:10 /gaetano/ KARRIE ABRAMS [facility] SPORTS NUTRITIONIST JESSICA CALLE PA [facility]
--- OUTSIDE RECORDS SUMMARY | 2024-12-21 11:56 | XMS_ITS | Encounter Summary ---
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 SHARE ACTIV E Apr 18, 2018 [id number] [phone] WILLIS,MAR JUDITH SPOUSE BCBS OF [facility] CE ORGANIZAT ION MIIA [facility] Apr 18, 2018 [id number] [phone] WILLIS,MAR JUDITH PATIENT BCBS OF [facility] CE ORGANIZAT ION BRENDA [facility] Apr 18, 2018 [id number] WILLIS,MAR JUDITH SPOUSE BCBS OF [place] PREFERRED PROVIDER ORGANIZAT ION (PPO) [facility] AC Apr 18, 2018 [id number] WILLIS,MAR JUDITH SPOUSE BCBS OF [facility] CE ORGANIZAT ION BRENDA [facility] ACT Apr 18, 2018 [id number] WILLIS,MAR JUDITH SPOUSE BCBS OF [facility] CE ORGANIZ BRENDA MCCABE [facility] AC Apr 18, 2018 [id number] [phone] WILLIS,MAR JUDITH SPOUSE [place] PRESCRIPT ION RX Oct 19, 2022 [id number] WILLIS,MAR JUDITH SPOUSE [place] PRESCRIPT ION RX22M A Oct 19, 2022 RX22MA [id number] WILLIS,LAVELLE AEL PATIENT [place] PRESCRIPT ION RX22M B Oct 19, 2022 RX22MB [id number] WILLIS,LAVELLE AEL PATIENT [place] PRESCRIPT ION BCBS OF [place] Oct 19, 2022 RX22MA [id number] WILLIS, SPOUSE [place] PRESCRIPT ION BRENDA [facility] Oct 19, 2022 RX22MB [id number] WILLIS,MAR JUDITH SPOUSE [place] PRESCRIPT ION BRENDA MCCABE [facility] AC Oct 19, 2022 RX22MB [id number] [phone] WILLIS,LAVELLE AEL SPOUSE [place] ([id number]) PRESCRIPT ION [place]BS OF [place] Oct 19, 2022 RX22MB [id number] WILLIS,MAR JUDITH SPOUSE [place] BCBS ([facility]IZ[facility]ON [facility] RSD AC Apr 18, 2018 [id number] [phone] WILLISEDILBERTO SPOUSE EXPRESS S[employer]IP[employer] ([id number]) PRESCRIPT ION Apr 18, 2018 L4TA [id number] [id number] WILLISEDILBERTO SPOUSE [employer] ([id number]) PRESCRIPT ION Apr 18, 2018 L4TA [id number] WILLISEDILBERTO SPOUSE [employer] S[employer] ([id number]) PRESCRIPT ION L4TA* Apr 18, 2018 L4TA [id number] WILLISEDILBERTO SPOUSE [employer] S[employer]IPTS ([id number]) PRESCRIPT ION L4TA Apr 18, 2018 L4TA [id number] WILLISEDILBERTO SPOUSE EXPRESS SCRIPTS-MINOR BROGATION PRESCRIPT ION BCBS OF [place] Apr 18, 2020 L4TA [id number] WILLIS,EDILBERTO WONG SPOUSE [place] [facility] ([facility]) [facility] CE ORGANIZAT ION W/OUT OF NETWORK BENEFITS [facility] RSD ACT Apr 18, 2018 [id number] EDILBERTO PEDRO SPOUSE [place] BCBS [facility] (BLUECARD) [facility] CE ORGANIZAT ION [facility] AC Apr 18, 2018 [id number] WILLISEDILBERTO SPOUSE MEDICARE (WNR) MEDICARE () PART A Mar 19, 1990 PART A [id number] [phone] WILLIS,LAVELLE AEL PATIENT MEDICARE (WNR) MEDICARE () PART A Mar 19, 1990 PART A [id number] WILLIS,LAVELLE AEL PATIENT MEDICARE (WNR) MEDICARE () PART A Mar 19, 1990 PART A [id number] WILLIS,LAVELLE AEL PATIENT MEDICARE (WNR) MEDICARE () PART A Mar 19, 1990 PART A [id number] WILLIS,LAVELLE AEL PATIENT MEDICARE (WNR) MEDICARE (M) PART A Mar 19, 1990 PART A [id number] WILLIS,LAVELLE AEL PATIENT MEDICARE (WNR) MEDICARE (M) PART A Mar 19, 1990 PART A [id number] WILLIS,LAVELLE AEL PATIENT MEDICARE (WNR) MEDICARE (M) PART A Mar 19, 1990 PART A [id number] WILLIS,LAVELLE AEL PATIENT MEDICARE (WNR) MEDICARE (M) PART A Mar 19, 1990 PART A [id number] [phone] [id number] WILLIS,LAVELLE AEL PATIENT MEDICARE (WNR) MEDICARE (M) PART A Mar 19, 1990 PART A [id number] WILLIS,LAVELLE AEL PATIENT MEDICARE (WNR) MEDICARE (M) PART A Mar 19, 1990 PART A [id number] [phone] WILLIS,LAVELLE AEL PATIENT MEDICARE (WNR) MEDICARE (M) PART A Mar 19, 1990 PART A [id number] [phone] WILLIS,LAVELLE AEL PATIENT Selected Encounter This section includes the information on record at [place] for the Encounter. Date/Time Encounter Type Encounter Description Reason Provider Source Mar 28, 2024 12:12 PM QNHP OL DIG ASSMT&MGMT 11-20 PULMONARY/CHEST ICD-10-CM Z12.2 Encntr screen for malignant neoplasm of respiratory organs ADRIÁN HARDY CCA IHE Encounter Template Text not used by [place] Assessments - Encounter Diagnoses This section includes the primary and secondary diagnoses documented for the Encounter. Date/Time Primary/Secondary Diagnosis Diagnosis Name Provider Source Mar 28, 2024 12:20 PM PRIMARY Encntr screen for malignant neoplasm of respiratory organs ADRIÁN HARDY CCA [place] [facility] [place] [facility] Plan of Treatment: Future Appointments (+ 6 months) and Future Tests (+/- 45 days) The Plan of Treatment section includes future care activities for the patient from all [place] treatmentfacilities. This section includes future appointments and future orders which are active, pending or scheduled. Future Appointments This section includes appointments that were scheduled to occur 6 months from the date of the Encounter, up to a maximum of 20 appointments. The data comes from all [place] treatment facilities. Appointment Date/Time Appointment Type Appointme nt Facility Name Apr 06, 2024 01:30 PM AMBULATORY - MEDICINE [facility] [place] [facility] May 30, 2024 08:30 AM AMBULATORY - MEDICINE [facility] [place] [facility] May 30, 2024 09:30 AM AMBULATORY - MEDICINE [facility] [place] [facility] Jun 01, 2024 10:00 AM AMBULATORY - MEDICINE [facility] [place] [facility] Jun 01, 2024 11:30 AM AMBULATORY - MEDICINE [facility] [place] [facility] Jun 28, 2024 11:30 AM AMBULATORY - MEDICINE [facility] [place] [facility] Jul 08, 2024 10:30 AM AMBULATORY - MEDICINE [facility] [place] [facility] Jul 13, 2024 09:30 AM AMBULATORY - MEDICINE [facility] [place] [facility] Aug 12, 2024 09:30 AM AMBULATORY - MEDICINE [facility] [place] [facility] Aug 22, 2024 09:00 AM AMBULATORY - MEDICINE [facility] [place] [facility] Sep 21, 2024 09:00 AM AMBULATORY - MEDICINE [facility] [place] [facility] Sep 21, 2024 10:00 AM AMBULATORY - MEDICINE [place] [facility] [place] [facility] Vital Signs: All taken on the encounter date This section contains inpatient and outpatient Vital Signs collected on the date of the Encounter. Date/Time Temperature Pulse Blood Pressure Respiratory Rate SP02 Pain Height Weight Body Mass Index Source Mar 28, 2024 10:36 AM 99.1 122 132/97 20 97 208.1 35 [place] [facility] [place] [facility] Social History: Smoking Status (Most current) and Tobacco Use (All prior to encounter date) This section includes the most current, and the historical, smoking and tobacco- related health factors from the [place] facility where the Encounter took place. Current Smoking Status This section includes the most current smoking, or tobacco-related health factor, from the [place] facility where the Encounter took place. Date/Time Current Smoking Status Comment Facil ity Nov 27, 2023 11:00 AM [facility] Tobacco Use History This section includes a history of the smoking, or tobacco-related health factors, that were collected on or before the date of the Encounter. The data comes from the [place] facility where the Encounter took place. Date/Time Smoking Status/Tobac co Use Comment Facility Nov 27, 2023 11:00 AM VA-TOBACCO QUIT 15 YRS OR MORE [place] [facility] [place] [facility] Dec 02, 2022 08:00 AM VA-TOBACCO FORMER USER [place] [facility] [place] [facility] Dec 02, 2022 08:00 AM VA-TOBACCO QUIT 15 YRS OR MORE [place] [facility] [place] [facility] Nov 05, 2021 10:30 AM VA-TOBACCO FORMER USER [place] [facility] [place] [facility] Nov 05, 2021 10:30 AM VA-TOBACCO QUIT 1 TO < 5 YRS [facility] [place] [facility] Sep 14, 2020 02:00 PM VA-TOBACCO FORMER USER [place] [facility] [place] [facility] Sep 14, 2020 02:00 PM VA-TOBACCO QUIT 5 TO < 15 YRS [place] [facility] [place] [facility] Jan 22, 2018 03:40 PM QUIT TOBACCO USE > 7 YEARS AGO [place] [facility] [place] [facility] Jun 04, 2016 02:01 PM CURRENT SMOKER been smoking pass 20 yrs [facility] [place] [facility] Jun 04, 2016 02:01 PM V1-PT DECLINES REF TO TOBACCO CESS PRGM [place] [facility] [place] [facility] Jun 04, 2016 02:01 PM V1-PT THINKING ABOUT QUIT TOBACCO USE [place] [facility] [place] [facility] Jul 18, 2014 03:31 PM V1-PT DECLINES REF TO TOBACCO CESS PRGM [place] [facility] [place] [facility] Jul 18, 2014 03:31 PM V1-PT DECLINES TOBACCO CESSATION MEDS [place] [facility] [place] [facility] Jul 18, 2014 03:31 PM V1-PT NOT INTERESTED IN QUIT TOBACCO USE [facility] [place] [facility] Jan 09, 2014 10:43 AM CURRENT SMOKER [...] of quitting [facility] Radiology Reports: +/- 30 days of [...] the Encounter. The data comes from all [place] treatment facilities. Date/Time Radiology Report Provider Source Mar 28, 2024 09:45 AM LDCT LUNG CANCER SCREENING: CHAYA PEDRO [id number] M Exm Date: MAR 28, 2024@09:45 Req Phys: BERE RIOS Pat Loc: ZZCWM/NO/LCS ADMIN (Req'g Loc) Img Loc: NHM/CT Service: Unknown [facility] , (Case 16 COMPLETE) LDCT LUNG CANCER SCREENING (CT Detailed) CPT:42325 Reason for Study: LUNG CANCER SCREENING Clinical History: QUIT SMOKING IN 2012 BASELINE LCS LDCT 03/30/2023: LUNG RADS 1 no new or concerning pulmonary mass or nodules. Plan for repeat in 12 months. Report Status: Verified Date Reported: MAR 28, 2024 Date Verified: MAR 28, 2024 Accuracy Expert E-Sig:/ES/RAYMOND LEAL JR Report: Study: Lung cancer [...] reviewed. Secondary computer-aided detection with post-processing from [employer] is used. The lack of intravenous contrast [...] Primary Interpreting Staff: RAYMOND LEAL JR, Radiologist (Accuracy Expert) /RAYMOND SHELTON JR [facility] Encounter Notes: All associated encounter notes [...] care provider know. You can also call [phone] ( ) or visit [email or web address]. Please contact us with questions or concerns about lung cancer screening. Sincerely, Regi MACHADO, RN, OCN Lung Cancer Screening Nurse Enclosures: brochure entitled, My Lung Cancer Screening Did Not Show Lung Cancer /es/ REGI MACHADO,RN,OCN LUNG CANCER SCREENING NURSE NAVIGATOR Signed: 03/28/2024 12:22 REGI HARDY [place] [facility] Mar 28, 2024 12:12 PM PREVENTIVE MEDICINE RISK ASSESSMENT SCREENING NOTE: LOCAL TITLE: LUNG CANCER SCREENING DOCUMENTATION STANDARD TITLE: PREVENTIVE MEDICINE RISK ASSESSMENT SCREENING NO DATE OF NOTE: MAR 28, 2024@12:12 ENTRY DATE: MAR 28, 2024@12:12:34 AUTHOR: REGI HRADY EXP COSIGNER: URGENCY: STATUS: COMPLETED NO LUNG [...] incidental findings, if indicated. Comment: Bere Rios TRAVEL RN OR and PACT team via second signer in CPRS Plan: Continue routine annual lung cancer screening. Patient Notification of results: Results letter sent to patient. Comment: Results letter and educational materials mailed to address on file. Patient contacted by telephone. Comment: Call placed to the [facility]. Non-urgent voicemail left advising that no pulmonary nodules or masses were seen and the plan is to repeat imaging with LCS LDCT again in one year. Direct call back number for LCS Coordinator provided. /gaetano/ REGI BERMANN,RN,OCN LUNG CANCER SCREENING NURSE NAVIGATOR Signed: 03/28/2024 12:20 Receipt Acknowledged By: 03/28/2024 12:37 /gaetano/ CIERRA GREGORY Nurse Practitioner 03/28/2024 13:30 /gaetano/ DEBBIE GORMAN, ELZBIETA, RN, CNL PRIMARY CARE TEAM NURSE 03/28/2024 13:16 /gaetano/ Marcia Maurer oncology registrar Staff Nurse REGI HARDY [facility]
--- OUTSIDE RECORDS SUMMARY | 2024-12-21 11:56 | XMS_ITS | Encounter Summary ---
Author Name Department [place] Address [address] [place] [address] Care Team Providers Care Product Marketing Consultant Name Role Phone ELIZABET ROBINS Primary [...] Policy Paul [facility] CE ORGANIZAT ION [facility] Apr 18, 2018 [id number] [phone] WILLIS,EDILBERTO SOTELOZA SPOUSE ANTHEM BCBS OF [place] (BLUECARD) [facility] CE ORGANIZAT ION MIIA [facility] [facility] Apr 18, 2018 [id number] WILLIS,MAR JUDITH SPOUSE BCBS [facility]GAN[facility] SHARE ACTIV E Apr 18, 2018 [id number] [phone] WILLIS,MAR JUDITH SPOUSE BCBS OF [facility] CE ORGANIZAT ION MIIA [facility] Apr 18, 2018 [id number] [phone] WILLIS,MAR JUDITH PATIENT BCBS OF [facility] CE ORGANIZAT ION BRENDA MCCABE [facility] Apr 18, 2018 [id number] WILLIS,MAR JUDITH SPOUSE BC[place] OF [place] PREFERRED PROVIDER ORGANIZAT ION (PPO) [facility]DA [facility] AC Apr 18, 2018 [id number] WILLIS,MAR JUDITH SPOUSE BCBS OF [facility] CE ORGANIZAT ION BRENDA MCCABE [facility] ACT Apr 18, 2018 [id number] WILLIS,MAR JUDITH SPOUSE BCBS OF [facility] CE ORGANIZ BRENDA [facility] AC Apr 18, 2018 [id number] [phone] WILLIS,MAR JUDITH SPOUSE [place] PRESCRIPT ION [facility] Oct 19, 2022 [id number] WILLIS,MAR JUDITH SPOUSE [place] PRESCRIPT ION RX22M A Oct 19, 2022 RX22MA [id number] WILLIS,LAVELLE AEL PATIENT [place] PRESCRIPT ION RX22M B Oct 19, 2022 RX22MB [id number] WILLIS,LAVELLE AEL PATIENT [place] PRESCRIPT ION BCBS OF [place] Oct 19, 2022 RX22MA [id number] [phone] WILLIS, SPOUSE [place] PRESCRIPT ION BRENDA MCCABE [facility] AC Oct 19, 2022 RX22MB [phone] [phone] WILLIS,LAVELLE AEL SPOUSE [place] PRESCRIPT ION RX Oct 19, 2022 RX22MC [id number] [phone] WILLIS,MAR JUDITH SPOUSE [place] ([id number]) PRESCRIPT ION [place] OF [place] Oct 19, 2022 RX22MB [id number] [phone] WILLIS,MAR JUDITH SPOUSE [place] BCBS ([facility] CE ORGANIZAT ION [facility] RSD AC Apr 18, 2018 [id number] WILLISEDILBERTO SPOUSE [employer] ([id number]) PRESCRIPT ION Apr 18, 2018 L4TA [id number] WILLISEDILBERTO SPOUSE [employer] ([id number]) PRESCRIPT ION L4TA Apr 18, 2018 L4TA [id number] WILLIS,EDILBERTO WONG SPOUSE [employer] ([id number]) PRESCRIPT ION L4TA* Apr 18, 2018 L4TA [id number] WILLISEDILBERTO SPOUSE [employer] S[employer] ([id number]) PRESCRIPT ION Apr 18, 2018 L4TA [id number] WILLISEDILBERTO Lynn SPOUSE EXPRESS SCRIPTS-MINOR BROGATION PRESCRIPT ION BCBS OF [place] Apr 18, 2020 L4TA [id number] [phone] WILLIS,EDILBERTO WONG SPOUSE [place] [facility] CE ORGANIZAT ION W/OUT OF NETWORK BENEFITS [facility] RSD ACT Apr 18, 2018 [id number] [phone] EDILBERTO PEDRO SPOUSE [facility] CE ORGANIZAT ION [facility] AC Apr 18, 2018 [id number] EDILBERTO PEDRO SPOUSE MEDICARE (WNR) MEDICARE () PART A Mar 19, 1990 PART A [id number] WILLISLAVELLE AEL PATIENT MEDICARE (WNR) MEDICARE () PART A Mar 19, 1990 PART A [id number] WILLIS,LAVELLE AEL PATIENT MEDICARE (WNR) MEDICARE () PART A Mar 19, 1990 PART A [id number] WILLIS,LAVELLE AEL PATIENT MEDICARE (WNR) MEDICARE () PART A Mar 19, 1990 PART A [id number] WILLIS,LAVELLE AEL PATIENT MEDICARE (WNR) MEDICARE (M) PART A Mar 19, 1990 PART A [id number] WILLIS,LAVELLE AEL PATIENT MEDICARE (WNR) MEDICARE (M) PART A Mar 19, 1990 PART A [id number] [phone] [id number] WILLIS,LAVELLE AEL PATIENT MEDICARE (WNR) MEDICARE (M) PART A Mar 19, 1990 PART A [id number] WILLIS,LAVELLE AEL PATIENT MEDICARE (WNR) MEDICARE (M) PART A Mar 19, 1990 PART A [id number] WILLIS,LAVELLE AEL PATIENT MEDICARE (WNR) MEDICARE (M) PART A Mar 19, 1990 PART A [id number] WILLIS,LAVELLE AEL PATIENT MEDICARE (WNR) MEDICARE (M) PART A Mar 19, 1990 PART A [id number] WILLIS,LAVELLE AEL PATIENT MEDICARE (WNR) MEDICARE (M) PART A Mar 19, 1990 PART A [id number] [phone] WILLIS,LAVELLE AEL PATIENT Selected Encounter This section includes the information on record at [place] for the Encounter. Date/Time Encounter Type Encounter Description Reason Pro vider Source Dec 01, 2024 04:29 PM Outpatient Encounter COMMUNITY CARE CONSULT IHE Encounter Template Text not used by [place] Plan of Treatment: Future Appointments (+ 6 months) and Future Tests (+/- 45 days) The Plan of Treatment section includes future care activities for the patient from all [place] treatmentfacilities. This section includes future appointments and future orders which are active, pending or scheduled. Future Appointments This section includes appointments that were scheduled to occur 6 months from the date of the Encounter, up to a maximum of 20 appointments. The data comes from all [place] treatment facilities. Appointment Date/Time Appointment Type Appointme nt Facility Name Dec 02, 2024 08:30 AM AMBULATORY [facility] Dec 15, 2024 10:30 AM AMBUL[facility] - [facility] Dec 16, 2024 10:20 AM AMBULATORY - MEDICINE [facility] [place] [facility] Mar 20, 2025 09:00 AM AMBULATORY - MEDICINE [place] [facility] [facility] Active, Pending, and Scheduled Orders This section includes a listing of several types of active, pending, and scheduled orders, including clinic medications orders, diagnostic test orders, procedure orders and consult orders; where the start date of the order is 45 days before the date of the Encounter or 45 days after the date of theEncounter. The data comes from all [place] treatment facilities. 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 Cons Hr Generalist's Choice [place] [facility] [facility] Dec 20, 2024 11:49 AM Consult Order COMMUNITY CARE-NEUROLOGY Cons Hr Generalist's Choice [place] [facility] [facility] Social History: Smoking Status (Most current) and Tobacco Use (All prior to encounter date) This section includes the most current, and the historical, smoking and tobacco- related health factors from the [place] facility where the Encounter took place. Current Smoking Status This section includes the most current smoking, or tobacco-related health factor, from the [place] facility where the Encounter took place. Date/Time Current Smoking Status Comment [facility] Nov 27, 2023 11:00 AM VA-TOBACCO FORMER USER [place] [facility] [facility] Tobacco Use History This section includes a history of the smoking, or tobacco-related health factors, that were collected on or before the date of the Encounter. The data comes from the [place] facility where the Encounter took place. Date/Time Smoking Status/Tobac co Use Comment Facility Nov 27, 2023 11:00 AM VA-TOBACCO QUIT 15 YRS OR MORE [facility] [place] [facility] Dec 02, 2022 08:00 AM VA-TOBACCO FORMER USER [facility] [place] [facility] Dec 02, 2022 08:00 AM VA-TOBACCO QUIT 15 YRS OR MORE [facility] [place] [facility] Nov 05, 2021 10:30 AM VA-TOBACCO FORMER USER [facility] [place] [facility] Nov 05, 2021 10:30 AM VA-TOBACCO QUIT 1 TO < 5 YRS [facility] [place] [facility] Sep 14, 2020 02:00 PM VA-TOBACCO FORMER USER [facility] Sep 14, 2020 02:00 PM VA-TOBACCO QUIT 5 TO < 15 YRS [facility] Jan 22, 2018 03:40 PM QUIT TOBACCO USE > 7 YEARS AGO [facility] Jun 04, 2016 02:01 PM CURRENT SMOKER been smoking pass 20 yrs [facility] Jun 04, 2016 02:01 PM V1-PT DECLINES REF TO TOBACCO CESS PRGM [facility] Jun 04, 2016 02:01 PM V1-PT THINKING ABOUT QUIT TOBACCO USE [facility] Jul 18, 2014 03:31 PM V1-PT DECLINES REF TO TOBACCO CESS PRGM [facility] Jul 18, 2014 03:31 PM V1-PT DECLINES TOBACCO CESSATION MEDS [facility] Jul 18, 2014 03:31 PM V1-PT NOT INTERESTED IN QUIT TOBACCO USE [facility] Jan 09, 2014 10:43 AM CURRENT SMOKER pt smokes 1 pk of cigarettes per day. [facility] Jan 09, 2014 10:43 AM V1-PT THINKING ABOUT QUIT TOBACCO USE [facility] Aug 28, 2003 10:47 AM CURRENT SMOKER one pack q 6 days - he has cut down from 3 PPD. He is in the process of quitting [facility] Encounter Notes: All associated encounter notes This section contains the clinical notes associated to the Encounter. Date/Time Encounter Note(s) Provider Source Dec 01, 2024 04:29 PM NONVA NOTE: LOCAL TITLE: [facility] PRESENTING CARE COORD PLAN STANDARD TITLE: NONVA NOTE DATE OF NOTE: DEC 01, 2024@16:29 ENTRY DATE: DEC 01, 2024@16:29:57 AUTHOR: SONNY BOGGS COSIGNER: URGENCY: STATUS: COMPLETED Emergency Notification Intake Date Presenting to the Facility: Sep Method of Contact: Notified from [employer] [facility] worklist Notification ID: [id number] [facility] Referral #: [id number] [facility] Hospital Name: Hospital: [facility] Address: City: House State: [place] Zip Code: Phone : Community Facility Point of Contact: Name: Messi Phone: Chief complaint: U69.802 Primary Diagnosis: Disposition Discharged Date of discharge: Sep Discharge to Comment: ER Only /gaetano/ SONNY RITCHIE Signed: 12/01/2024 16:31 SONNY BOGGS GARNETT
--- OUTSIDE RECORDS SUMMARY | 2024-12-21 11:57 | XMS_ITS | Encounter Summary ---
Author Name [facility] [place] Organization [place] Address [address] [place] [address] Care Team Providers Care Audio Visual Project Manager Name Role Phone ELIZABET ROBINS Primary [...] to Policy Paul [facility] CE ORGANIZAT ION SDIA [facility] Apr 18, 2018 [id number] [phone] WILLIS,EDILBERTO SOTELOZA SPOUSE ANTHEM [place] OF [place] ([place]) [facility] CE ORGANIZAT ION MIIA [address] Apr 18, 2018 [id number] [phone] WILLIS,MAR JUDITH SPOUSE BCBS [facility] CE ORGANIZ [facility] Apr 18, 2018 [id number] WILLIS,MAR JUDITH SPOUSE BCBS OF [facility] CE ORGANIZAT ION MIIA AMHER [facility] Apr 18, 2018 [id number] WILLIS,MAR JUDITH PATIENT BCBS OF [facility] CE ORGANIZAT ION BRENDA MCCABE [facility] Apr 18, 2018 [id number] WILLIS,MAR JUDITH SPOUSE BCBS OF [place] PREFERRED PROVIDER ORGANIZAT ION (PPO) BRENDA MCCABE [facility] AC Apr 18, 2018 [id number] WILLIS,MAR JUDITH SPOUSE BCBS OF [facility] CE ORGANIZAT ION [facility] ACT Apr 18, 2018 [id number] WILLIS,MAR JUDITH SPOUSE BCBS OF [facility] CE ORGANIZ BRENDA MCCABE [facility] AC Apr 18, 2018 [id number] [phone] WILLIS,MAR JUDITH SPOUSE [place] PRESCRIPT ION RX Oct 19, 2022 RX22MC [id number] WILLIS,MAR JUDITH SPOUSE [place] PRESCRIPT ION RX22M A Oct 19, 2022 RX22MA [id number] WILLIS,LAVELLE AEL PATIENT [place] PRESCRIPT ION RX22M B Oct 19, 2022 RX22MB [id number] WILLIS,LAVELLE AEL PATIENT [place] PRESCRIPT [place] Oct 19, 2022 RX22MA [phone] WILLIS, SPOUSE [place] PRESCRIPT ION BRENDA [facility] Oct 19, 2022 RX22MB [phone] WILLIS,MAR JUDITH SPOUSE [place] PRESCRIPT ION BRENDA MCCABE [facility] AC Oct 19, 2022 RX22MB [id number] [phone] WILLIS,LAVELLE AEL SPOUSE [place] ([id number]) PRESCRIPT ION [place] Oct 19, 2022 RX22MB [id number] [phone] WILLIS,MAR JUDITH SPOUSE [place] BC[place] ([facility] CE ORGANIZAT ION MIIA [facility] AC Apr 18, 2018 [id number] WILLISEDILBERTO SPOUSE [employer] ([id number]) PRESCRIPT ION Apr 18, 2018 L4TA [id number] [phone] WILLISEDILBERTO SPOUSE [employer] ([id number]) PRESCRIPT ION Apr 18, 2018 L4TA [id number] WILLISEDILBERTO SPOUSE [employer] ([id number]) PRESCRIPT ION L4TA* Apr 18, 2018 L4TA [id number] WILLISEDILBERTO SPOUSE [employer] ([id number]) PRESCRIPT ION L4TA Apr 18, 2018 L4TA [id number] WILLISEDILBERTO SPOUSE EXPRESS SCRIPTS-MINOR BROGATION PRESCRIPT ION [place] Apr 18, 2020 L4TA [id number] [phone] WILLIS,EDILBERTO WONG SPOUSE [place] [facility] ([facility]) [facility] CE ORGANIZAT ION W/OUT OF NETWORK BENEFITS [facility] ACT Apr 18, 2018 [id number] WILLISEDILBERTO SPOUSE [facility] (BLUECARD) [facility] CE ORGANIZAT ION [facility] AC Apr 18, 2018 [id number] WILLISEDILBERTO SPOUSE MEDICARE ([facility]) MEDICARE () PART A Mar 19, 1990 PART A [id number] WILLIS,LAVELLE AEL PATIENT MEDICARE (WNR) MEDICARE () PART A Mar 19, 1990 PART A [id number] WILLIS,LAVELLE AEL PATIENT MEDICARE (WN) MEDICARE () PART A Mar 19, 1990 PART A [id number] WILLIS,LAVELLE AEL PATIENT MEDICARE (WNR) MEDICARE () PART A Mar 19, 1990 PART A [id number] WILLIS,LAVELLE AEL PATIENT MEDICARE (WNR) MEDICARE () PART A Mar 19, 1990 PART A [id number] WILLIS,LAVELLE AEL PATIENT MEDICARE (WNR) MEDICARE (M) PART A Mar 19, 1990 PART A [id number] WILLIS,LAVELLE AEL PATIENT MEDICARE (WNR) MEDICARE (M) PART A Mar 19, 1990 PART A [id number] WILLIS,LAVELLE AEL PATIENT MEDICARE (WNR) MEDICARE (M) PART A Mar 19, 1990 PART A [id number] WILLIS,LAVELLE AEL PATIENT MEDICARE (WNR) MEDICARE (M) PART A Mar 19, 1990 PART A [id number] [phone] WILLIS,LAVELLE AEL PATIENT MEDICARE (WNR) MEDICARE (M) PART A Mar 19, 1990 PART A [id number] WILLIS,LAVELLE AEL PATIENT MEDICARE (WNR) MEDICARE (M) PART A Mar 19, 1990 PART A [id number] WILLIS,LAVELLE AEL PATIENT Selected Encounter This section includes the information on record at CT for the Encounter. Date/Time Encounter Type Encounter Description Reason Provider Source Dec 15, 2024 01:03 PM Outpatient Encounter DERMATOLOGY ICD-10-CM L20.89 Other atopic dermatitis WAGNER SLADE Bal[facility] Encounter Template Text not used by CT Assessments - Encounter Diagnoses This section includes the primary and secondary diagnoses documented for the Encounter. Date/Time Primary/Secondary Diagnosis Diagnosis Name Provider Source Dec 15, 2024 01:06 PM PRIMARY Other atopic dermatitis WAGNER SLADE [facility] Dec 15, 2024 01:06 PM SECONDARY Epidermal cyst WAGNER SLADE [facility] Dec 15, 2024 01:06 PM SECONDARY Other seborrheic keratosis WAGNER SLADE [facility] Plan of Treatment: Future Appointments (+ [...] 16, 2024 10:20 AM AMBUL[facility] Mar 20, 2025 09:00 AM AMBULATORY - MEDICINE [facility] Active, Pending, and Scheduled Orders This section includes a listing of several types of active, pending, and scheduled orders, including clinic medications orders, diagnostic test orders, procedure orders and consult orders; where the start date of the order is 45 days before the date of the Encounter or 45 days after the date of theEncounter. The data comes from all [facility]. 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 [facility] Audience Coordinator's Choice [facility] Dec 20, 2024 11:49 AM Consult Order [facility] Audience Coordinator's Choice [facility] Encounter Notes: All associated encounter notes This section contains the clinical notes associated to the Encounter. Date/Time Encounter Note(s) Provider Source Dec 15, 2024 01:03 PM TELEIMAGING REPORT : LOCAL TITLE: CONSULT-TELEDERMATOLOGY IMAGING REPORT STANDARD TITLE: TELEIMAGING REPORT DATE OF NOTE: DEC 15, 2024@13:03 ENTRY DATE: DEC 15, 2024@13:03:10 AUTHOR: WAGNER SLADE EXP COSIGNER: URGENCY: STATUS: COMPLETED HISTORY: This is a 69-year-old male who was consulted for telederm for 3 separate issues. First is itchy bumps in the axilla. There was a cream given to see if it would be helpful but it is not mentioned what it was. Second issue is itchy patches on the thumbs. No treatment is indicated to have been given. Last issue was a lesion on the chest which is increased in size over the last 10 years. OVERALL CONSULT/IMAGE QUALITY: Fully satisfactory EXAM: There are inclusion cysts/milium cysts in the axilla without background erythema. There are 2 eczematous patches on the medial aspect of both thumbs. They appear slightly lichenified. And on the left chest there is a brown stuck on appearing papule with horn cyst visible. IMPRESSION BASED ON IMAGES AND INFORMATION REVIEWED: PROBLEM A: Diagnosis: Suyapa cysts PROBLEM B: Diagnosis: Eczematous dermatitis PROBLEM C: Diagnosis: Seborrheic Keratosis RECOMMENDATIONS FOR REFERRING PROVIDER: PROBLEM A: Skin Care recommendations: Ensure that he is using antiperspirant and deodorant. Other recommendations: Lesions are benign they can be expressed if he desires. PROBLEM B: Medication: Clobetasol ointment 2 days on 2 days off to moist skin of hands Skin Care recommendations: Ensure using sensitive skin products for soaps and emollients. Other recommendations: Question whether there is any activity which may be causing rubbing or irritation in that area or if he uses anything that comes in contact with that site PROBLEM C: Liquid nitrogen cryotherapy: Benign lesion no treatment is required but if it is bothering him it can be treated with liquid nitrogen TIME-SENSITIVITY: No time-sensitive, urgent, emergent or life-threatening results. RECOMMENDED FOLLOW-UP (Include Clinically Indicated Date (MIKI)): Primary Care follow up Nature/Type of Follow-up: Recheck for improvement with above MIKI: Cumulative time of review and management: 5 minutes or more /gaetano/ WAGNER SLADE PA-C DERMATOLOGY CLINIC Signed: 12/15/2024 13:06 WAGNER SLADE [facility]
--- OUTSIDE RECORDS SUMMARY | 2024-12-21 11:57 | XMS_ITS | Encounter Summary ---
Author Name [facility] [place] Address [address] [place] [address] Care Team Providers Care Seo Analyst Name Role Phone ELIZABET ROBINS Primary [...] [facility] CE ORGANIZAT ION MOIA [facility] AC Apr 18, 2018 [id number] [phone] WILLISEDILBEROTZA SPOUSE ANTHEM [place]BS OF [place] ([place]ARD) [facility] CE ORGANIZAT ION [facility]A [facility] Apr 18, 2018 [id number] WILLIS,EDILBERTO SOTELOZA SPOUSE BCBS [facility] SHARE ACTIV E Apr 18, 2018 [id number] WILLIS,MAR JUDITH SPOUSE BCBS OF [facility]ON MOIA [facility] Apr 18, 2018 [id number] [phone] WILLIS,MAR JUDITH PATIENT BCBS OF [facility] CE ORGANIZAT ION BRENDA MCCABE [facility] Apr 18, 2018 [id number] WILLIS,MAR JUDITH SPOUSE BC[place] OF [place] PREFERRED PROVIDER ORGANIZAT ION (PPO) BRENDA [facility] AC Apr 18, 2018 [id number] WILLIS,MAR JUDITH SPOUSE BCBS OF [facility] CE ORGANIZAT ION BRENDA MCCABE [facility] ACT Apr 18, 2018 [id number] WILLIS,MAR JUDITH SPOUSE BCBS OF [facility] CE ORGANIZ BRENDA [facility] AC Apr 18, 2018 [id number] WILLIS,MAR JUDITH SPOUSE [place] PRESCRIPT ION RX Oct 19, 2022 RX22MC [id number] WILLIS,MAR JUDITH SPOUSE [place] PRESCRIPT ION RX22M A Oct 19, 2022 RX22MA [id number] WILLIS,LAVELLE AEL PATIENT [place] PRESCRIPT ION RX22M B Oct 19, 2022 RX22MB [id number] WILLIS,LAVELLE AEL PATIENT [place] PRESCRIPT ION BRENDA MCCABE [facility] AC Oct 19, 2022 RX22MB [id number] [phone] WILLIS,LAVELLE AEL SPOUSE [place] PRESCRIPT ION [place] OF [place] Oct 19, 2022 RX22MA [id number] [phone] WILLIS, SPOUSE [place] PRESCRIPT ION [facility] Oct 19, 2022 RX22MB [phone] [phone] WILLIS,MAR JUDITH SPOUSE [place] ([id number]) PRESCRIPT ION [place] Oct 19, 2022 RX22MB [id number] [phone] WILLIS,MAR JUDITH SPOUSE [place] BC[place] ([facility] CE ORGANIZAT ION [facility] AC Apr 18, 2018 [id number] WILLISEDILBERTO SPOUSE [employer] ([id number]) PRESCRIPT ION Apr 18, 2018 L4TA [id number] WILLISEDILBERTO SPOUSE [employer] ([id number]) PRESCRIPT ION Apr 18, 2018 L4TA [id number] WILLISEDILBERTO SPOUSE [employer] ([id number]) PRESCRIPT ION L4TA* Apr 18, 2018 L4TA [id number] WILLISEDILBERTO SPOUSE [employer] ([id number]) PRESCRIPT ION L4TA Apr 18, 2018 L4TA [id number] WILLISEDILBERTO Lynn SPOUSE EXPRESS SCRIPTS-MINOR BROGATION PRESCRIPT ION [place] OF [place] Apr 18, 2020 L4TA [id number] WILLISEDILBERTO SPOUSE [place] [employer] ([facility]) [facility] CE ORGANIZAT ION W/OUT OF NETWORK BENEFITS [facility] RSD ACT Apr 18, 2018 [id number] EDILBERTO PEDRO SPOUSE [facility] (BLUECAR) [facility] CE ORGANIZAT ION [facility] AC Apr 18, 2018 [id number] EDILBERTO PEDRO SPOUSE MEDICARE (WNR) MEDICARE () PART A Mar 19, 1990 PART A [id number] WILLISLAVELLE AEL PATIENT MEDICARE (WN) MEDICARE () PART A Mar 19, 1990 PART A [id number] WILLIS,LAVELLE AEL PATIENT MEDICARE (WNR) MEDICARE () PART A Mar 19, 1990 PART A [id number] WILLIS,LAVELLE AEL PATIENT MEDICARE (WNR) MEDICARE () PART A Mar 19, 1990 PART A [id number] [phone] WILLIS,LAVELLE AEL PATIENT MEDICARE (WNR) MEDICARE (M) PART A Mar 19, 1990 PART A [id number] WILLIS,LAVELLE AEL PATIENT MEDICARE (WNR) MEDICARE (M) PART A Mar 19, 1990 PART A [id number] [phone] WILLIS,LAVELLE AEL PATIENT MEDICARE (WNR) MEDICARE (M) PART A Mar 19, 1990 PART A [id number] WILLIS,LAVELLE AEL PATIENT MEDICARE (WNR) MEDICARE (M) PART A Mar 19, 1990 PART A [id number] WILLIS,LAVELLE AEL PATIENT MEDICARE (WNR) MEDICARE (M) PART A Mar 19, 1990 PART A [id number] WILLIS,LAVELLE AEL PATIENT MEDICARE (WNR) MEDICARE (M) PART A Mar 19, 1990 PART A [id number] WILLISLAVELLE AEL PATIENT MEDICARE (WNR) MEDICARE (M) PART A Mar 19, 1990 PART A [id number] [phone] WILLIS,LAVELLE AEL PATIENT Selected Encounter This section includes the information on record at [place] for the Encounter. Date/Time Encounter Type Encounter Description Reason Provider Source Jun 01, 2024 11:30 AM OFFICE O/P EST MOD 30 MIN PRIMARY CARE/MEDICINE ICD-10-CM K75.81 Nonalcoholic steatohepatitis (CHAKRABORTY) ELIZABET ROBINS [facility] Encounter Template Text not used by [place] Assessments - Encounter Diagnoses This section includes the primary and secondary diagnoses documented for the Encounter. Date/Time Primary/Secondary Diagnosis Diagnosis Name Provider Source Jun 25, 2024 11:36 AM PRIMARY Nonalcoholic steatohepatitis (CHAKRABORTY) ELIZABET ROBINS [facility] [place] [facility] Jun 25, 2024 11:36 AM SECONDARY Alcohol dependence, in remission ELIZABET ROBINS [place] [facility] [place] [facility] Jun 25, 2024 11:36 AM SECONDARY Galeas's esophagus without dysplasia ELIZABET ROBINS [place] [facility] [place] [facility] Jun 25, 2024 11:36 AM SECONDARY Calculus of kidney JULIENNE,ELIZABET JOHAN [facility] [place] [facility] Jun 25, 2024 11:36 AM SECONDARY Essential (primary) hypertension JULIENNE,ELIZABET JOHAN [facility] [place] [facility] Jun 25, 2024 11:36 AM SECONDARY Male erectile dysfunction, unspecified JULIENNE,ELIZABET JOHAN [facility] [place] [facility] Jun 25, 2024 11:36 AM SECONDARY Post-traumatic stress disorder, chronic JULIENNE,ELIZABET JOHAN [facility] [place] [facility] Jun 25, 2024 11:36 AM SECONDARY Sleep apnea, unspecified JULIENNE,ELIZABET JOHAN [facility] [place] [facility] Plan of Treatment: Future Appointments (+ 6 months) and Future Tests (+/- 45 days) The Plan of Treatment section includes future care activities for the patient from all [place] [facility]. This section includes future appointments and future orders which are active, pending or scheduled. Future Appointments This section includes appointments that were scheduled to occur 6 months from the date of the Encounter, up to a maximum of 20 appointments. The data comes from all [place] treatment facilities. Appointment Date/Time Appointment Type Appointme nt Facility Name Jun 28, 2024 11:30 AM AMBULATORY - MEDICINE [facility] [place] [facility] Jul 08, 2024 10:30 AM AMBULATORY - MEDICINE [facility] [place] [facility] Jul 13, 2024 09:30 AM AMBULATORY - MEDICINE [facility] [place] [facility] Aug 12, 2024 09:30 AM AMBULATORY - MEDICINE [facility] [place] [facility] Aug 22, 2024 09:00 AM AMBULATORY - MEDICINE [facility] [place] [facility] Sep 21, 2024 09:00 AM AMBULATORY - MEDICINE [facility] [place] [facility] Sep 21, 2024 10:00 AM AMBULATORY - MEDICINE [facility] [place] [facility] Nov 09, 2024 11:30 AM AMBULATORY - MEDICINE [facility] [place] [facility] Nov 28, 2024 09:30 AM AMBULATORY - MEDICINE [facility] [place] [facility] Dec 02, 2024 08:30 AM AMBULATORY - MEDICINE [facility] Lab Results: +/- [...] Jun 01, 2024 11:53 AM Reporting Lab: [address] [address] Performing Lab: [address] [address] MICROALBUMIN/C REATININE RATIO 10.8 mg/g 0-29.9 MICROALBUMIN,Q [...] May 30, 2024 10:29 AM Reporting Lab: [address] [address] Performing Lab: [address] [address] HEMOGLOBIN A1C 5.8 H 4.0-5.6 Jun 01, 2024 10:38 AM [facility] BASIC METABOLIC PANEL (non-fasting) Specimen Type: SERUM No comment entered. Ordering Provider: LINDA PERSON Report Released Date/Time: May 30, 2024 10:29 AM Reporting Lab: [facility] [address] [facility] [address] Performing Lab: [address] [address] UREA NITROGEN 13 mg/dL 7-25 GLUCOSE 115 [...] Jun 01, 2024 10:12 AM Reporting Lab: [address] [address] Performing Lab: [address] [address] CHOLESTEROL 126 mg/dL TRIGLYCERIDE 114 mg/dL 0-150 [...] 93 138/86 16 96 0 [phone] 36 [facility] Social History: Smoking Status (Most [...] Encounter. The data comes from the [facility] where the Encounter took place. Date/Time Smoking Status/Tobac co Use Comment Facility Nov 27, 2023 11:00 AM VA-TOBACCO [facility]IT 15 [facility]RS [facility] Dec 02, 2022 08:00 AM VA-TOBACCO [facility] Dec 02, 2022 08:00 AM VA-TOBACCO QUIT 15 YRS OR [facility] Nov 05, 2021 10:30 AM VA-[facility]ACCO [facility] Nov 05, 2021 10:30 AM VA-TOBACCO QUIT 1 TO < 5 YRS [facility] Sep 14, 2020 02:00 PM [facility]ACCO [facility] Sep 14, 2020 02:00 PM VA-TOBACCO QUIT 5 TO < 15 YRS [facility] Jan 22, 2018 03:40 PM QUIT TOBACCO USE > 7 YEARS AGO [facility] Jun 04, 2016 02:01 PM CURRENT SMOKER been smoking pass 20 yrs [facility] Jun 04, 2016 02:01 PM V1-PT DECLINES REF TO TOBACCO [facility]ESS [facility] Jun 04, 2016 02:01 PM V1-PT THINKING ABOUT QUIT TOBACCO [facility] Jul 18, 2014 03:31 PM V1-PT DECLINES REF TO TOBACCO CESS [facility] Jul 18, 2014 03:31 PM V1-PT DECLINES TOBACCO CESSATION MEDS [facility] Jul 18, 2014 03:31 PM V1-PT NOT INTERESTED IN QUIT TOBACCO USE [facility] Jan 09, 2014 10:43 AM CURRENT SMOKER pt smokes 1 pk of cigarettes per day. [facility] Jan 09, 2014 10:43 AM V1-PT THINKING ABOUT QUIT TOBACCO [facility] Aug 28, 2003 10:47 AM CURRENT SMOKER one pack q 6 days - he has cut down from 3 PPD. He is in the process of [facility]itting [facility] Encounter Notes: All associated encounter notes [...] caused by toxin 12. Diverticulosis 2016 ct [facility] 13. Galeas's esophagus EGD 09/02/16 Dr. Hampton 14. Rosacea 15. Deep venous thrombosis of upper extremity LUE, basilic vein 16. Nephrolithiasis On CT at [facility] 02/07/2015. 17. Hyperlipidemia Total chol/HDL/LDL/trigs: 154/41/84/145 (04/08/22). F/U to discuss statin w/ T2DM 18. Lower urinary tract symptoms due to benign prostatic hypertrophy (SNOMED CT PSA normal (04/08/22) 19. Family history of prostate cancer Father and three brothers. 20. Schizoaffective disorder (SNOMED CT [id number]) 21. Alcohol Dependence episodic 22. Periodontal Disease [...] of active outpatient prescriptions dispensed from this [place] (local) and dispensed from another [place] or [facility] facility (remote) as well as inpatient orders [...] Nurse Practitioner Signed: 06/01/2024 12:26 ELIZABET ROBINS [place] [facility] [facility] Jun 01, 2024 11:34 AM PREVENTIVE MEDICINE [...] diminished) SENSORY CHECK: Includes 10 gram Monofilament ([place]) test of sensation. Intact (Greater than or [...] a detailed handout on diabetic foot care. /gaetano/ DEBBIE GORMAN, MSN, RN, CNL PRIMARY CARE TEAM NURSE Signed: 06/01/2024 11:36 DEBBIE GORMANL DEMI [facility]
--- OUTSIDE RECORDS SUMMARY | 2024-12-21 11:57 | XMS_ITS | Continuity of Care Document ---
Author Name [facility] Organization [facility] Care Team Providers Care Planner Name Role Phone [facility] Unavailable Unavailable Problems Combined list of problems from Department of Defense and Veterans Affairs facilities. It does not include entries that were removed or entered in error. Problem Status Onset Date Problem Type Date of Resolution Comments Source Deep venous thrombosis of upper extremity Active 07/30/20 15 Condition Aug 03, 2015 Entered By: MULU SAINI Comment: LUE, basilic vein [facility] Diverticulosis of sigmoid colon Inactive 04/04/20 09 Condition 08/02/2014 Aug 02, 2014 Entered By: MULU SAINI Comment: Found on otherwise normal 04/04/2009 colonoscopy. [facility] Alcohol dependence (SNOMED CT 16441808) Active Condition Mar 23, 2001 Entered By: ERIBERTO TOLBERT Comment: episodic [facility] Galeas's esophagus Active Condition Sep 08, 2016 Entered By: MARCIAL GUZMAN Comment: EGD 09/02/16 Dr. 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 U-ACR ordered. Pt to f/u to discuss medication options. Also, discuss adding ACEi and statin [facility] Diverticulitis Active Condition Jul 192006 Entered By: DOMINIK FREIRE Comment: abdominal pains [facility] Diverticulitis of colon (without mention of hemorrhage) (ICD-9-CM 562.11) Active Condition Jan 10 Entered By: DOMINIK FREIRE Comment: Intermittent colon spasms [facility] Diverticulosis Active Condition Sep Entered By: MARCIAL GUZMAN Comment: 2016 [facility] [place] [facility] Diverticulosis of sigmoid (ICD-9-CM 562.10) Active Condition [facility] Elevated liver enzymes level Active Condition Apr 08, 2022 Entered By: MURRAY CRAIN Comment: AST/ALT 43/57 (04/08/22). Pt to f/u to discuss statin. Consider Fatty Liver Disease w/u. HCV screen. 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 [facility] GERD Active Condition [facility] History of substance abuse Active Condition Jan 13, 2023 Entered By: ELIZABET ROBINS Comment: MJ Cocaine ETOH --[facility] Hyperlipidemia Active Condition [facility] Hyperlipidemia Active Condition Mar 202021 Entered By: MURRAY CRAIN Comment: Total chol/HDL/LDL/t rigs: 154/41/84/145 (04/08/22). F/U to discuss statin w/ T2DM [facility] [place] [facility] Hypertension Active Condition Apr 08, 2022 Entered By: MURRAY CRAIN Comment: Amlo 10. Discuss ACEi w/ T2DM. Renal function reassuring 04/08/22. [facility] [place] [facility] Lower urinary tract symptoms due to benign prostatic hypertrophy (SNOMED CT 08824961579413) Active Condition Apr 08, 2022 Entered By: MURRAY CRAIN Comment: PSA normal (04/08/22) [facility] Nephrolithiasis Active Condition February 16, 2015 Entered By: MULU SAINI Comment: On [facility] at [facility] 02/07/2015. [facility] Nonalcoholic [...] [facility] Schizoaffective disorder (SNOMED CT 52339523) Active Condition [facility] [...] Appendectomy Inactive Condition 03/23/2001Mar Entered By: ERIBERTO TOLBERT Comment: childhood [facility] Cocaine dependence, episodic use Inactive Condition 01/13/2023 [facility] Marijuana Abuse Episodic Inactive Condition 01/13/2023 [facility] Nicotine Dependence (DSM-IV 305.1) Inactive Condition 01/13/2023 [facility] S/p R elbow surgery Inactive Condition 03/23/2001 [facility] Diagnosis: ICD-10-CM L20.89 Other atopic dermatitis Active Diagnosis [facility] Diagnosis: ICD-10-CM Z13.89 Encounter for screening for other disorder Active Diagnosis [facility] Diagnosis: ICD-10-CM R21 Rash and other nonspecific skin eruption Active Diagnosis [facility] Diagnosis: ICD-10-CM M20.10 Hallux valgus (acquired), unspecified foot Active Diagnosis [facility] Diagnosis: ICD-10-CM Z71.9 Counseling, unspecified Active Diagnosis [facility] Diagnosis: ICD-10-CM N50.82 Scrotal pain Active Diagnosis [facility] [...] rhinitis Active Diagnosis [facility] Diagnosis: ICD-10-CM Z12.2 Encntr screen for malignant neoplasm of respiratory organs Active Diagnosis [facility] Diagnosis: ICD-10-CM Z71.89 Other specified counseling Active Diagnosis [facility] Diagnosis: ICD-10-CM H54.62 Unqualified visual loss, left eye, normal vision right eye Active Diagnosis [facility] Diagnosis: ICD-10-CM N20.0 Calculus of kidney Active Diagnosis [facility] Diagnosis: ICD-10-CM F25.9 Schizoaffective disorder, unspecified Active Diagnosis [facility] Diagnosis: ICD-10-CM N41.0 Acute prostatitis Active Diagnosis [facility] Diagnosis: ICD-10-CM M54.59 Other low back pain Active Diagnosis [facility] Diagnosis: ICD-10-CM Z04.9 Encounter for examination and observation for unsp reason Active Diagnosis [facility] Medications Combined list of outpatient medications from [...] BREATH RESPIR ATORY (INHAL ATION) ACTIVE 04/14/2025 [id number] JULIENNE, ELIZABET JOHAN 2023 1 [facility] ALBUTEROL SO4 3MG/IPRATRO PIUM BR 0.5MG/3ML INHL,3ML INHALE 1 VIAL (3ML) IN NEBULIZE R EVERY 4 HOURS NEEDED FOR BRONCHOS PASM RESPIR ATORY (INHAL ATION) ACTIVE 04/14/2025 [id number] 5 JULIENNE, ELIZABET JOHAN 2023 30 [facility] AMLODIPINE BESYLATE 5MG TAB TAKE ONE TABLET BY MOUTH ONCE DAILY FOR BLOOD PRESSURE /HEART, DO NOT TAKE WITH GRAPEFRU IT JUICE ORAL ACTIVE 06/25/2025 [id number] 5 JULIENNE, ELIZABET JOHAN 2023 90 [facility] AMLODIPINE BESYLATE 5MG TAB TAKE ONE TABLET BY MOUTH ONCE DAILY FOR BLOOD PRESSURE /HEART, DO NOT TAKE WITH GRAPEFRU IT JUICE ORAL DISCONT INUED 06/25/2024 [id number] 4 JULIENNE, ELIZABET JOHAN 2022 90 [facility] ATORVASTATI N CA 80MG TAB TAKE ONE-HALF TABLET BY MOUTH AT BEDTIME FOR CHOLESTE ROL ORAL ACTIVE 04/09/2025 [id number] 4 MACK,AL ICE 2023 45 [facility] ATORVASTATI N CA 80MG TAB TAKE ONE-HALF TABLET BY MOUTH AT BEDTIME FOR CHOLESTE ROL ORAL DISCONT INUED 01/28/2024 [id number] MACK,AL ICE 2022 45 [facility] DEXTROMETHO RPHAN HBR 10MG/GUAIFE NESIN 100MG/5ML (AF & SF) LIQUID TAKE 5 MLS (ONE TEASPOON FUL) BY MOUTH EVERY 6 HOURS NEEDED FOR COUGH ORAL DISCONT INUED BY PROVIDE R 03/29/2025 [id number] TYSON WEISS 2023 240 [facility] DICLOFENAC NA 75MG TAB,EC TAKE ONE TABLET BY MOUTH TWICE DAILY NEEDED FOR PAIN/INF LAMMATIO N ORAL 07/28/2024 [id number] ELIZABET ROBINS 2023 14 [facility] DOXYCYCLINE HYCLATE 50MG CAP TAKE ONE CAPSULE BY MOUTH ONCE DAILY ORAL DISCONT INUED BY PROVIDE R 04/12/2025 [id number] 4 MERHAR,NO AH B 2023 90 [facility] DOXYCYCLINE HYCLATE 50MG CAP TAKE ONE CAPSULE BY MOUTH TWICE DAILY FOR INFECTIO N CAUSED BY BACTERIA ORAL DISCONT INUED (EDIT) 05/28/2024 [id number] 4 MERHAR,NO AH B 2022 120 [facility] ERYTHROMYCI N 0.5% OINT,OPH APPLY THIN RIBBON INTO EACH EYE TWICE DAILY NEEDED FOR EYE INFECTIO N OPHTHA LMIC 03/30/2024 [id number] 3 MERHAR,NO AH B 2022 1 [facility] EYELID CLEANSER,EY E SCRUB PAD USE 1 PAD TOPICALL Y ONCE DAILY NEEDED DRY EYE TOPICA L ACTIVE 09/22/2025 [id number] [facility],NO AH B 2023 30 [facility] FAMOTIDINE 20MG TAB TAKE ONE TABLET BY MOUTH DAILY FOR STOMACH ACID ORAL ACTIVE 04/29/2025 [id number] 5 JULIENNE, ELIZABET JOHAN 2023 90 [facility] FAMOTIDINE 20MG TAB TAKE ONE TABLET BY MOUTH DAILY FOR STOMACH ACID ORAL DISCONT INUED 04/22/2024 [id number] 4 JULIENNE, ELIZABET JOHAN 2022 90 [facility] FLUTICASONE PROPIONATE 50MCG/SPRAY SOLN,NASAL, 16GM INSTILL 1 SPRAY INTO EACH NOSTRIL TWICE DAILY FOR NASAL IRRITATI ON/INFLA MMATION NASAL 04/27/2024 [id number] TYSON WEISS 2023 1 [facility] HYDROXYZINE HCL 25MG TAB TAKE ONE TABLET BY MOUTH AT BEDTIME NEEDED ORAL ACTIVE 02/07/2025 [id number] 5 JULIENNE, ELIZABET JOHAN 2024 90 [facility] KETOTIFEN 0.025% SOLN,OPH INSTILL 1 DROP INTO EACH EYE TWICE DAILY NEEDED FOR ALLERGIC CONJUNCT IVITIS (IF YOU WEAR CONTACT LENSES, WAIT 10 MINUTES BEFORE INSERTIN G LENSES) OPHTHA LMIC 12/10/2024 [id number] 4 JAHAIRANO AH B 2023 10 [facility] LACTOBACILL US ACIDOPHILUS CAP TAKE 1 CAPSULE BY MOUTH TWICE DAILY ORAL ACTIVE 12/03/2025 [id number] 5 JULIENNE, ELIZABET JOHAN 2024 200 [facility] LACTOBACILL US ACIDOPHILUS CAP TAKE 1 CAPSULE BY MOUTH TWICE DAILY ORAL DISCONT INUED 10/15/2024 [id number] 4 JULIENNE, ELIZABET JOHAN 2022 200 [facility] LEVOCETIRIZ INE DIHYDROCHLO RIDE 5MG TAB TAKE ONE TABLET BY MOUTH EVERY EVENING FOR ALLERGIE S ORAL ACTIVE 03/24/2025 [id number] 5 JULIENNE, ELIZABET JOHAN 2023 30 [facility] LEVOCETIRIZ INE DIHYDROCHLO RIDE 5MG TAB TAKE ONE TABLET BY MOUTH EVERY EVENING FOR ALLERGIE S ORAL DISCONT INUED 03/02/2024 [id number] JULIENNE, ELIZABET JOHAN 2022 30 [facility] LIDOCAINE 5% PATCH APPLY 1 PATCH TOPICALL Y EVERY 12 HOURS NEEDED (LEAVE PATCH ON FOR 12 HOURS, THEN REMOVE PATCH) TOPICA L 08/14/2024 [id number] 4 JULIENNE, ELIZABET JOHAN 2022 30 [facility] METFORMIN HCL 1000MG TAB TAKE ONE TABLET BY MOUTH TWICE DAILY FOR DIABETES ORAL ACTIVE 02/16/2025 [id number] 5 MACK,AL ICE 2023 180 [facility] METFORMIN HCL 1000MG TAB TAKE ONE TABLET BY MOUTH TWICE DAILY FOR DIABETES ORAL DISCONT INUED 01/28/2024 [id number] 4 MACK,AL ICE 2022 180 [facility] METRONIDAZO LE 0.75% GEL,TOP APPLY MODERATE AMOUNT TOPICALL Y TWICE DAILY FOR ACNE ROSACEA TOPICShaji L ACTIVE 05/03/2025 [id number] [facility] PICKETTHARPAL GINGER Tompkins 2023 90 [facility] MULTIVITAMI NS W/MINERALS CAP/TAB TAKE ONE CAP/TAB BY MOUTH ONCE DAILY ORAL ACTIVE DAE PERSOND I A 2023 [facility] NYSTATIN 439132HZV/G M CREAM,TOP APPLY A THIN LAYER TOPICALL Y TWICE DAILY FOR FUNGAL INFECTIO N TOPICA L ACTIVE 11/16/2025 [id number] ELIZABET ROBINS 2024 30 [facility] ONDANSETRON HCL 4MG TAB,ORALLY DISINTEGRAT ING PLACE ONE TABLET ON THE TONGUE EVERY 8 HOURS NEEDED FOR NAUSEA AND VOMITING (ALLOW TABLET TO DISSOLVE ON TONGUE, AND SWALLOW WITH SALIVA) ORAL ACTIVE 07/14/2025 [id number] 4 JULIENNEELIZABET YANEZ 2023 30 [facility] OTHER CAP/TAB TAKE THC BY MOUTH TWICE DAILY ORAL ACTIVE ALEKSANDAR PERSON I A 2023 [facility] PANTOPRAZOL E NA 40MG TAB,EC TAKE ONE TABLET BY MOUTH EVERY MORNING 30 MINUTES BEFORE BREAKFAS T FOR EXCESSIV E PRODUCTI ON OF STOMACH ACID ORAL ACTIVE 11/22/2025 [id number] 5 JULIENNEMAURAA JOHAN 2024 90 [facility] PEG-400 0.4%/PROPYL AYAAN GLYCOL 0.3% SOLN,OPH INSTILL 1 DROP INTO EACH EYE FOUR TIMES DAILY NEEDED DRY EYE OPHTHA LMIC ACTIVE 09/22/2025 [id number] MERHAR,NO AH B 2023 30 [facility] PEG-400 0.4%/PROPYL AYAAN GLYCOL 0.3% SOLN,OPH INSTILL 1 DROP INTO EACH EYE FOUR TIMES DAILY NEEDED DRY EYE OPHTHA LMIC DISCONT INUED 12/10/2024 [id number] SUHAIL CAMPO AH B 2023 30 [facility] PHENOBARBIT AL 32.4MG TAB TAKE ONE TABLET BY MOUTH TWICE DAILY ORAL ACTIVE 02/15/2025 [id number] REMY NAIK 2023 60 [facility] PREDNISONE 20MG TAB TAKE TWO TABLETS BY MOUTH ONCE DAILY ORAL DISCONT INUED BY WANDA R 04/27/2024 [id number] TYSON WEISS 2023 10 [facility] SILDENAFIL CITRATE 25MG TAB TAKE ONE TABLET BY MOUTH ONCE DAILY FOR ERECTILE DYSFUNCT ION TAKE 1 HOUR PRIOR TO SEXUAL ACTIVITY ORAL DISCONT INUED (EDIT) 06/02/2025 [id number] 5 ELIZABET ROBINS 2023 18 [facility] SILDENAFIL CITRATE 50MG TAB TAKE ONE TABLET BY MOUTH ONCE DAILY TAKE 1 HOUR PRIOR TO SEXUAL ACTIVITY ORAL ACTIVE 11/10/2025 [id number] 5 ELIZABET ROBINS 2024 18 [facility] TAMSULOSIN HCL 0.4MG CAP TAKE ONE CAPSULE BY MOUTH AT BEDTIME ORAL ACTIVE 03/16/2025 [id number] LISA WAYNE 2024 90 [facility] Allergies, Adverse Reactions, Alerts Combined list of allergies from Department of Defense and Veterans Affairs facilities. It does not include entries that were removed or entered in error. Substance Category Reaction Severity Reaction type Status Date Reported Comments Source AKWA TEARS Propensity to adverse reactions to drug (finding) ITCHING,MICHELLE ERING EYES, REDNESS active 4 [facility] DIFLUCAN Propensity to adverse reactions to drug (finding) Anaphylaxis , Angioedema, Dyspnea active 9 [facility] FLUOROMETHOL ONE Propensity to adverse reactions to drug (finding) Eruption active 9 [facility] LEVETIRACETA M Propensity to adverse reactions to drug (finding) Nightmares SEVERE active 2 [facility] OXYCODONE Propensity to adverse reactions to drug (finding) Eruption active 1 [facility] PHENYTOIN Propensity to adverse reactions to drug (finding) Eruption active 4 [facility] REFRESH TEARS Propensity to adverse reactions to drug (finding) Eruption active 9 [facility] Immunizations Combined list of available immunizations from the Department of Defense and Veterans Affairs facilities. Immunization Series Date Given Administered By Site Reaction Lot Number CVX Code Drug Envelope Adjuster Status Comments Source RSV, BIVALENT, PROTEIN SUBUNIT RSVPREF, DILUENT RECONSTITUTED , 0.5 ML, PF 2024 MARY GARCIA H RIGHT DELTO ID [id number] 305 complet ed [facility] COVID-19 (MODERNA), MRNA, LNP-S, PF, 50 MCG/0.5 ML (AGES 12+ YEARS) 2023 DEBBIE GORMAN LEFT DELTO ID [id number] 312 complet ed [facility] INFLUENZA, UNSPECIFIED FORMULATION 2023 88 complet ed [facility] COVID-19 (MODERNA), MRNA, LNP-S, PF, 50 MCG/0.5 ML (AGES 12+ YEARS) 1 2023 DEBBIE GORMAN L LEFT DELTO ID [id number] 312 complet ed [facility] INFLUENZA, HIGH-DOSE, QUADRIVALENT 2023 DEBBIE GORMAN RIGHT DELTO ID [id number] 197 complet ed [facility] INFLUENZA VACCINE, QUADRIVALENT, ADJUVANTED 2021 205 complet ed [facility] PNEUMOCOCCAL CONJUGATE PCV20, POLYSACCHARID E [id number] CONJUGATE, ADJUVANT, PF 2021 216 complet ed [facility] ZOSTER RECOMBINANT 2 2021 187 complet ed [facility] COVID-19 (PFIZER), MRNA, LNP-S, PF, 30 MCG/0.3 ML DOSE 3 2020 208 complet ed [facility] INFLUENZA, INJECTABLE, QUADRIVALENT, PRESERVATIVE FREE 2020 150 complet ed Partner:Serena MALHOTRA.Admin istered by:[facility] [id number].([id number]) .[facility]:[id number] ddress:[address] [facility] .[place].[id number] Dosage: ML 0.5 [facility] COVID-19 (PFIZER), MRNA, LNP-S, PF, 30 MCG/0.3 ML DOSE 2 2020 208 complet ed PFR; [id number]; 1 [facility] COVID-19 (PFIZER), MRNA, LNP-S, PF, 30 MCG/0.3 ML DOSE 1 2020 208 complet ed PFR; [id number]; 1 [facility] [...] INFLUENZA, UNSPECIFIED FORMULATION 2006 88 complet ed [facility] FLU,3 YRS (HISTORICAL) 2002 [place] [...] Sep 21, 2024 09:08 AM Reporting Lab: [facility] [place] [address] [address] Performing Lab: [facility] [place] [address] [address] [facility] MICROALBU MIN CREATININ E RATIO PANEL MICROALBUMI N [MASS/VOLUM E] IN URINE 0.6 mg/dL 09/21 Specimen Type: URINE No comment entered. Ordering Provider: LINDA PERSON Report Released Date/Time: Sep 21, 2024 09:08 AM Reporting Lab: [facility] [place] [address] [address] Performing Lab: [facility] [place] [facility] [address] [facility] [address] [facility] MICROALBU MIN CREATININ E RATIO PANEL CREATININE [MASS/VOLUM E] IN URINE 81.65 mg/dL 09/21 Specimen Type: URINE No comment entered. Ordering Provider: LINDA PERSON Report Released Date/Time: Sep 21, 2024 09:08 AM Reporting Lab: [facility] [place] [address] [address] Performing Lab: [facility] [place] [address] [address] [facility] PHENOBARB ITAL (q) PHENOBARBIT AL [MASS/VOLUM E] IN SERUM OR PLASMA 5.2 mg/L 15.0 - 40.0 09/21 L Specimen Type: SERUM Comment: Test Performed by [facility] [place], [facility], [address] [place] [address] Danis Lewis M.D., Ph.D., Director of Laboratorie s , CLIA [id number] TEST PERFORMED AT: , Ordering Provider: LINDA PERSON Report Released Date/Time: Sep 21, 2024 09:08 AM Reporting Lab: [address] [address] Performing Lab: [facility] [place] [address] [address] [facility] HEMOGLOBI N A1C PANEL HEMOGLOBIN A1C/HEMOGLO [...] 21, 2024 09:08 AM Reporting Lab: [address] [address] Performing Lab: [address] [address] [facility] LIVER FUNCTION PROTEIN [MASS/VOLUM E] IN SERUM OR PLASMA 7.8 g/dL 6.0 - 8.3 09/21 Specimen Type: SERUM No comment entered. Ordering Provider: LINDA PERSON Report Released Date/Time: Sep 21, 2024 09:08 AM Reporting Lab: [facility] [place] [facility] [address] [facility] [address] Performing Lab: [facility] [place] [facility] [address] [facility] [address] [facility] LIVER FUNCTION ALBUMIN [MASS/VOLUM E] IN SERUM OR PLASMA 4.4 g/dL 3.5 - 5.0 09/21 Specimen Type: SERUM No comment entered. Ordering Provider: LINDA PERSON Report Released Date/Time: Sep 21, 2024 09:08 AM Reporting Lab: [facility] [place] [facility] [address] [facility] [address] Performing Lab: [facility] [place] [facility] [address] [facility] [address] [facility] [place] [facility] LIVER FUNCTION ALKALINE PHOSPHATASE [ENZYMATIC ACTIVITY/VO LUME] IN SERUM OR PLASMA 89 U/L 40 - 150 09/21 Specimen Type: SERUM No comment entered. Ordering Provider: LINDA PERSON Report Released Date/Time: Sep 21, 2024 09:08 AM Reporting Lab: [facility] [place] [facility] [address] [facility] [address] Performing Lab: [facility] [place] [facility] [address] [facility] [address] [facility] [place] [facility] LIVER FUNCTION ASPARTATE AMINOTRANSF ERASE [ENZYMATIC ACTIVITY/VO LUME] IN SERUM OR PLASMA 42 U/L 5 - 34 09/21 H Specimen Type: SERUM No comment entered. Ordering Provider: LINDA PERSON Report Released Date/Time: Sep 21, 2024 09:08 AM Reporting Lab: [facility] [place] [facility] [address] [facility] [address] Performing Lab: [facility] [place] [facility] [address] [facility] [address] [facility] [facility] LIVER FUNCTION ALANINE AMINOTRANSF ERASE [ENZYMATIC ACTIVITY/VO LUME] IN SERUM OR PLASMA 52 U/L 09/21 Specimen Type: SERUM No comment entered. Ordering Provider: LINDA PERSON Report Released Date/Time: Sep 21, 2024 09:08 AM Reporting Lab: [facility] [place] [facility] [address] [facility] [address] Performing Lab: [facility] [place] [facility] [address] [facility] [address] [facility] LIVER FUNCTION BILIRUBIN.T OTAL [MASS/VOLUM E] IN SERUM OR PLASMA 0.3 mg/dL 0.2 - 1.2 09/21 Specimen Type: SERUM No comment entered. Ordering Provider: LINDA PERSON Report Released Date/Time: Sep 21, 2024 09:08 AM Reporting Lab: [facility] [place] [address] [address] Performing Lab: [facility] [place] [address] [address] [facility] BASIC METABOLIC PANEL (non-fast ing) UREA NITROGEN [MASS/VOLUM E] IN SERUM OR PLASMA 10 mg/dL 7 - 25 09/21 Specimen Type: SERUM No comment entered. Ordering Provider: LINDA PERSON Report Released Date/Time: Sep 21, 2024 09:08 AM Reporting Lab: [facility] [place] [address] [address] Performing Lab: [facility] [place] [address] [address] [facility] BASIC METABOLIC PANEL (non-fast ing) GLUCOSE [MASS/VOLUM E] IN SERUM OR PLASMA 107 mg/dL 65 - 100 09/21 H Specimen Type: SERUM No comment entered. Ordering Provider: LINDA PERSON Report Released Date/Time: Sep 21, 2024 09:08 AM Reporting Lab: [facility] [place] [facility] [address] [facility] [address] Performing Lab: [facility] [place] [address] [address] [facility] [place] [facility] BASIC METABOLIC PANEL (non-fast ing) SODIUM [MOLES/VOLU ME] IN SERUM OR PLASMA 141 mmol/L 135 - 145 09/21 Specimen Type: SERUM No comment entered. Ordering Provider: LINDA PERSON Report Released Date/Time: Sep 21, 2024 09:08 AM Reporting Lab: [facility] [address] [address] Performing Lab: [facility] [address] [address] [facility] BASIC METABOLIC PANEL (non-fast ing) POTASSIUM [MOLES/VOLU ME] IN SERUM OR PLASMA 4.5 mmol/L 3.5 - 5.0 09/21 Specimen Type: SERUM No comment entered. Ordering Provider: LINDA PERSON Report Released Date/Time: Sep 21, 2024 09:08 AM Reporting Lab: [facility] [address] [address] Performing Lab: [facility] [address] [facility] BASIC METABOLIC PANEL (non-fast ing) CHLORIDE [MOLES/VOLU ME] IN SERUM OR PLASMA 107 mmol/L 100 - 110 09/21 Specimen Type: SERUM No comment entered. Ordering Provider: LINDA PERSON Report Released Date/Time: Sep 21, 2024 09:08 AM Reporting Lab: [facility] [address] [address] Performing Lab: [facility] [address] [facility] BASIC METABOLIC PANEL (non-fast ing) CARBON DIOXIDE, TOTAL [MOLES/VOLU ME] IN SERUM OR PLASMA 20 meq/L 20 - 30 09/21 Specimen Type: SERUM No comment entered. Ordering Provider: LINDA PERSON Report Released Date/Time: Sep 21, 2024 09:08 AM Reporting Lab: [facility] [place] [address] [address] Performing Lab: [facility]ITALN [facility] [address] [facility] [address] [facility]N [facility]ITALUSE [facility] BASIC METABOLIC PANEL (non-fast ing) CREATININE [MASS/VOLUM E] IN SERUM OR PLASMA 0.85 mg/dL 0.50 - 1.40 09/21 Specimen Type: SERUM No comment entered. Ordering Provider: LINDA PERSON Report Released Date/Time: Sep 21, 2024 09:08 AM Reporting Lab: [facility] [address] Performing Lab: [facility] [address] [facility] BASIC METABOLIC PANEL (non-fast ing) GLOMERULAR FILTRATION RATE/1.73 SQ M.PREDICTED [VOLUME RATE/AREA] IN SERUM, PLASMA OR BLOOD BY CREATININE- BASED FORMULA (CKD-EPI 2020) >90mL/ min 60 09/21 Specimen Type: SERUM No comment entered. Ordering Provider: LINDA PERSON Report Released Date/Time: Sep 21, 2024 09:08 AM Reporting Lab: [facility] [address] Performing Lab: [facility]ITALRD[facility]ENTERTRN [facility]USE[address] [address] [facility] MICROALBU MIN CREATININ E RATIO PANEL MICROALBUMI N/CREATININ E [MASS RATIO] IN URINE 10.8 mg/g 0 - 29.9 06/01 Specimen Type: URINE No comment entered. Ordering Provider: LINDA PERSON Report Released Date/Time: Jun 01, 2024 11:53 AM Reporting Lab: [facility] [address] Performing Lab: [facility]ITALRD[facility]ENTERTRN [facility]USE[address] [address] [facility] MICROALBU MIN CREATININ E RATIO PANEL MICROALBUMI N [MASS/VOLUM E] IN URINE 1.1 mg/dL 06/01 Specimen Type: URINE No comment entered. Ordering Provider: LINDA PERSON Report Released Date/Time: Jun 01, 2024 11:53 AM Reporting Lab: [facility]N [facility] [address] [facility] [address] Performing Lab: [facility]N [facility] [address] [facility] [address] [facility] MICROALBU MIN CREATININ E RATIO PANEL CREATININE [MASS/VOLUM E] IN URINE 101.63 mg/dL 06/01 Specimen Type: URINE No comment entered. Ordering Provider: LINDA PERSON Report Released Date/Time: Jun 01, 2024 11:53 AM Reporting Lab: [facility]OSPITALN [address] [address] Performing Lab: [facility]N [address] [address] [facility] HEMOGLOBI N A1C PANEL HEMOGLOBIN A1C/HEMOGLO [...] May 30, 2024 10:29 AM Reporting Lab: [facility]N [address] [address] Performing Lab: [facility] [address] [address] [facility] BASIC METABOLIC PANEL (non-fast ing) UREA NITROGEN [MASS/VOLUM E] IN SERUM OR PLASMA 13 mg/dL 7 - 25 06/01 Specimen Type: SERUM No comment entered. Ordering Provider: LINDA PERSON Report Released Date/Time: May 30, 2024 10:29 AM Reporting Lab: [facility] [address] [facility] [address] Performing Lab: [facility]ITALRD[facility]ENTERTRN [facility]US[facility] [address] [facility] [address] [facility]N [facility]PITALUSE [facility] BASIC METABOLIC PANEL (non-fast ing) GLUCOSE [MASS/VOLUM E] IN SERUM OR PLASMA 115 mg/dL 65 - 100 06/01 H Specimen Type: SERUM No comment entered. Ordering Provider: LINDA PERSON Report Released Date/Time: May 30, 2024 10:29 AM Reporting Lab: [facility]ITALN [facility] [address] [facility] [address] Performing Lab: [facility] [address] [address] [facility] BASIC METABOLIC PANEL (non-fast ing) SODIUM [MOLES/VOLU ME] IN SERUM OR PLASMA 140 mmol/L 135 - 145 06/01 Specimen Type: SERUM No comment entered. Ordering Provider: LINDA PERSON Report Released Date/Time: May 30, 2024 10:29 AM Reporting Lab: [facility] [address] [facility] [address] Performing Lab: [facility] [address] [address] [facility] BASIC METABOLIC PANEL (non-fast ing) POTASSIUM [MOLES/VOLU ME] IN SERUM OR PLASMA 4.3 mmol/L 3.5 - 5.0 06/01 Specimen Type: SERUM No comment entered. Ordering Provider: LINDA PERSON Report Released Date/Time: May 30, 2024 10:29 AM Reporting Lab: [facility]N [facility] [address] Performing Lab: [facility]N [facility]USE[address] [address] [facility] BASIC METABOLIC PANEL (non-fast ing) CHLORIDE [MOLES/VOLU ME] IN SERUM OR PLASMA 107 mmol/L 100 - 110 06/01 Specimen Type: SERUM No comment entered. Ordering Provider: LINDA PERSON Report Released Date/Time: May 30, 2024 10:29 AM Reporting Lab: [facility] [address] Performing Lab: [facility]N [facility] [address] [facility]RE[facility]N [facility] BASIC METABOLIC PANEL (non-fast ing) CARBON DIOXIDE, TOTAL [MOLES/VOLU ME] IN SERUM OR PLASMA 21 meq/L 20 - 30 06/01 Specimen Type: SERUM No comment entered. Ordering Provider: LINDA PERSON Report Released Date/Time: May 30, 2024 10:29 AM Reporting Lab: [facility] [address] Performing Lab: [facility]ITALRELM[facility]ITALN [address] [address] [facility] BASIC METABOLIC PANEL (non-fast ing) CREATININE [MASS/VOLUM E] IN SERUM OR PLASMA 0.84 mg/dL 0.50 - 1.40 06/01 Specimen Type: SERUM No comment entered. Ordering Provider: LINDA PERSON Report Released Date/Time: May 30, 2024 10:29 AM Reporting Lab: [facility]ITALRL TRN [address] [address] Performing Lab: [facility]N [facility] [address] [facility]RE[facility]N [facility] BASIC METABOLIC PANEL (non-fast ing) GLOMERULAR FILTRATION RATE/1.73 SQ M.PREDICTED [VOLUME RATE/AREA] IN SERUM, PLASMA OR BLOOD BY CREATININE- BASED FORMULA (CKD-EPI 2020) >90mL/ min 60 06/01 Specimen Type: SERUM No comment entered. Ordering Provider: LINDA PERSON Report Released Date/Time: May 30, 2024 10:29 AM Reporting Lab: [facility]ITALN [address] [address] Performing Lab: [facility]ITALRL [facility] [address] [address] [facility]ITALRL [facility] LIPID PANEL, NON FASTING CHOLESTEROL [MASS/VOLUM E] IN SERUM OR PLASMA 126 mg/dL 06/01 Specimen Type: SERUM No comment entered. Ordering Provider: LINDA PERSON Report Released Date/Time: Jun 01, 2024 10:12 AM Reporting Lab: [facility] [place] [address] [address] Performing Lab: [facility] [place] [address] [address] [facility] LIPID PANEL, NON FASTING TRIGLYCERID E [MASS/VOLUM E] IN SERUM OR PLASMA 114 mg/dL 0 - 150 06/01 Specimen Type: SERUM No comment entered. Ordering Provider: LINDA PERSON Report Released Date/Time: Jun 01, 2024 10:12 AM Reporting Lab: [facility] [place] [address] [address] Performing Lab: [facility] [place] [address] [address] [facility] LIPID PANEL, NON FASTING CHOLESTEROL IN LDL [MASS/VOLUM E] IN SERUM OR PLASMA BY CALCULATION 60 mg/dL 0 - 129 06/01 Specimen Type: SERUM No comment entered. Ordering Provider: LINDA PERSON Report Released Date/Time: Jun 01, 2024 10:12 AM Reporting Lab: [facility] [place] [address] [address] Performing Lab: [facility] [place] [address] [address] [facility] [place] LIPID PANEL, NON FASTING CHOLESTEROL .TOTAL/CHOL ESTEROL IN HDL [MASS RATIO] IN SERUM OR PLASMA 2.9 06/01 Specimen Type: SERUM No comment entered. Ordering Provider: LINDA PERSON Report Released Date/Time: Jun 01, 2024 10:12 AM Reporting Lab: [facility] [place] [address] [address] Performing Lab: [facility] [address] [facility] [address] [facility]N [facility]ITALUSE [facility] LIPID PANEL, NON FASTING CHOLESTEROL IN HDL [MASS/VOLUM E] IN SERUM OR PLASMA 43 mg/dL 40 - 60 06/01 Specimen Type: SERUM No comment entered. Ordering Provider: LINDA PERSON Report Released Date/Time: Jun 01, 2024 10:12 AM Reporting Lab: [facility]N [facility] [address] [facility] [address] Performing Lab: [facility]N [facility] [address] [facility] [address] [facility]N [facility]ITALUSE [facility] HEMOGLOBI N A1C PANEL HEMOGLOBIN A1C/HEMOGLO [...] Dec 10, 2023 06:17 PM Reporting Lab: [facility] [address] [facility] [address] Performing Lab: [facility]N [facility] [address] [facility] [address] [facility] Vital Signs Combined list of inpatient and outpatient Vital Signs from Department of Defense and Veterans Affairs, ranging from 12 months to all on record, depending upon the facility. Vital Sign Value Date Comments Source SYSTOLIC BLOOD PRESSURE 134 12/02/19 25 08:34:24 [facility] DIASTOLIC BLOOD PRESSURE 82 025 08:34:24 [facility] PULSE OXIMETRY 96 12/02/2024 08:34:24 [facility] PAIN 0 12/02/2024 08:34:24 [facility] TEMPERATURE 97.8 12/02/2024 08:34:24 [facility] PULSE 83 12/02/2024 08:34:24 [facility] RESPIRATION 18 12/02/2024 08:34:24 [facility] SYSTOLIC BLOOD PRESSURE 137 11/09/19 11:32:22 [facility] DIASTOLIC BLOOD PRESSURE 92 025 11:32:22 [facility] PULSE OXIMETRY 94 11/09/2024 11:32:22 [facility] PAIN 4 11/09/2024 11:32:22 [facility] TEMPERATURE 97.8 11/09/2024 11:32:22 [facility] PULSE 81 11/09/2024 11:32:22 [facility] RESPIRATION 18 11/09/2024 11:32:22 [facility] SYSTOLIC BLOOD PRESSURE 122 07/13/20 24 09:47:46 [facility] DIASTOLIC BLOOD PRESSURE 86 024 09:47:46 [facility] PULSE OXIMETRY 94 07/13/2024 09:47:46 [facility] PAIN 4 07/13/2024 09:47:46 [facility] PULSE 88 07/13/2024 09:47:46 [facility] RESPIRATION 16 07/13/2024 09:47:46 [facility] SYSTOLIC BLOOD PRESSURE 126 06/28/20 24 11:41:55 [facility] DIASTOLIC BLOOD PRESSURE 87 024 11:41:55 [facility] PULSE OXIMETRY 95 06/28/2024 11:41:55 [facility] WEIGHT 214 06/28/2024 11:41:55 [facility] BMI 35 kg/m2 06/28/2024 11:41:55 [facility] [...] 11:29:03 [facility] BMI 36 kg/m2 06/01/2024 11:29:03 [facility] PAIN 0 06/01/2024 11:29:03 [facility] TEMPERATURE 97.8 06/01/2024 11:29:03 [facility] PULSE 93 06/01/2024 11:29:03 [facility] RESPIRATION 16 06/01/2024 11:29:03 [facility] Encounters Combined list of: 1) Encounters from Department of Veterans Affairs facilities going backup to the last 18 months, not all VA inpatient encounters are included; 2) Encounters from the Department of Defense facilities going backup to 280 months. Location Location Details Encounter Type Encounter Number Reason For Visit Attending Provider ADM Date DC Date Status Disposition Source [facility] [id number] 06/24 [facility] En[facility] [id number] ZAHIDA ARRIAZA 07/05 [facility] Encounter [id number] 07/13 [facility] En[facility] [id number] 07/16 [facility] OFF/OP EST MAY X REQ PHY/QHP [id number] Diagnos is: ICD-10- CM Z04.9 Encount er for examina tion and observa tion for unsp reason RODERICK GORMAN LLBaldev L 07/30 [facility] OFF[facility] O/P EST MOD 30-39 MIN [id number] Diagnos is: ICD-10- CM M54.59 Other low back pain JULIENNE,L ADRIANNE JOHAN 07/30 [facility] En[facility] [id number] 08/12 [facility] OFF[facility] O/P EST LOW 20-29 MIN [id number] Diagnos is: ICD-10- CM N41.0 Acute prostat itis JULIENNE,L ADRIANNE JOHAN 08/14 [facility] En[facility] [id number] 08/19 [facility] En[facility] [id number] 08/21 [facility] En[facility] [id number] 08/21 [facility] En[facility] [id number] 08/27 [facility] HC PRO PHONE CALL 11-20 MIN [id number] Diagnos is: ICD-10- CM F25.9 Schizoa ffectiv e disorde r, unspeci fied Lia VIERA 08/31 [facility] En[facility] [id number] 09/03 [facility] Encounter [id number] 09/24 [facility] En[facility] [id number] 10/15 [facility] En[facility] [id number] 10/22 [facility] En[facility] [id number] 11/10 [facility] En[facility] [id number] 11/12 [facility] En[facility] [id number] 11/24 [facility] En[facility] [id number] 11/27 [facility] OFFICE O/P EST MOD 30 MIN [id number] Diagnos is: ICD-10- CM N20.0 Calculu s of kidney JULIENNE,L ADRIANNE JOHAN 11/27 [facility] En[facility] [id number] 11/27 [facility] En[facility] [id number] 11/28 [facility] En[facility] [id number] 12/10 [facility] OFFICE O/P EST MOD 30 MIN [id number] Diagnos is: ICD-10- CM E11.9 Type 2 diabete s mellitu s without complic ations KOLE MACK 12/10 [facility] OFF/OP EST MAY X REQ PHY/QHP [id number] Diagnos is: ICD-10- CM E11.9 Type 2 diabete s mellitu s without complic ations SOLEDAD GUERRERO 12/14 [facility] En[facility] [id number] 12/20 [facility] En[facility] [id number] 12/20 [facility] En[facility] [id number] 01/12 [facility] Encounter [id number] 01/12 [facility] INTRM OPH EXAM EST PATIENT [id number] Diagnos is: ICD-10- CM H54.62 Unquali fied visual loss, left eye, normal vision right eye CATALINA CRAIG 01/12 [facility] En[facility] [id number] 02/03 [facility] Encounter [id number] 02/08 [facility] En[facility] [id number] 02/11 [facility] En[facility] [id number] 02/15 [facility] En[facility] [id number] 02/15 [facility] MTMS BY PHARM CUT OFF [place] 15 MIN [id number] Diagnos is: ICD-10- CM E11.9 Type 2 diabete s mellitu s without complic ations GDULA,LINDA A 02/16 [facility] En[facility] [id number] 02/22 [facility] En[facility] [id number] 03/21 [facility] En[facility] [id number] 03/23 [facility] Encounter [id number] 03/28 [facility] OFF/OP EST MAY X REQ PHY/QHP [id number] Diagnos is: ICD-10- CM Z71.89 Other specifi ed psychosocial rehabilitation counselor Shaji Villareal 03/28 [facility] QNHP OL DIG ASSMT&MGMT 11-20 [id number] Diagnos is: ICD-10- CM Z12.2 Encntr screen for maligna nt neoplas m of respira tory organs PUCHALSKTuyet, REGI L 03/28 [facility] OFFICE O/P EST LOW 20 MIN [id number] Diagnos is: ICD-10- CM J30.2 Other seasona l allergi c rhiniti RICARDO Malave 03/28 [facility] En[facility] [id number] 04/06 [facility] [id number] 04/06 [facility] En[facility] [id number] DEBORAH CAMPO 04/11 [facility] [id number] 04/11 [facility] [id number] 04[facility]11 [facility] En[facility] [id number] 04/19 [facility] En[facility] [id number] 04/22 [facility] En[facility] [id number] 04/26 [facility] En[facility] [id number] 05/02 [facility] En[facility] [id number] 05/02 [facility] En[facility] [id number] 05/03 [facility] En[facility] [id number] 05/19 [facility] En[facility] [id number] 05/20 [facility] En[facility] [id number] 05/24 [facility]counter [id number] 05/30 [facility] Encounter [id number] 05/30 [facility] MTMS BY PHARM ADDL 15 MIN [id number] Diagnos is: ICD-10- CM E11.9 Type 2 diabete s mellitu s without complic ations LINDA PERSON 06/01 [facility] OFFICE O/P EST MOD 30 MIN [id number] Diagnos is: ICD-10- CM K75.81 Nonalco holic steatoh epatiti s (CHAKRABORTY) [place] ROBINS ADRIANNEShaji PRADO 06/01 [facility] ([id number]) HC PRO PHONE CALL 21-30 MIN [id number] Diagnos is: ICD-10- CM Z74.1 Need for assista nce with persona l care SATINDER MITCHELL N 06/03 [facility] ([id number] Out[facility] Encounter [id number] 06/03 [facility] Encounter [id number] 06/03 [facility] HLTH BHV ASSMT/REAS SESSMENT [id number] 1. Diagnos is: ICD-10- CM Z74.1 Need for assista nce with persona l care LUC,RU TH E 06/14 [facility] En[facility] [id number] 1.06/21 [facility] PROGRAM INTAKE ASSESSMENT [id number] 1. Diagnos is: ICD-10- CM Z74.1 Need for assista nce with persona l care SHERMAN,AGUSTIN Mendoza 06/22 [facility] Encounter [id number] 1.06/23 [facility] En[facility] [id number] 1.06/24 [facility] En[facility] [id number] 1[facility]06/26 [facility] En[facility] [id number] 1.06/27 [facility] PRO PHONE CALL 11-20 MIN [id number] 1. Diagnos is: ICD-10- CM Z71.9 Baked And Graphite Inspector xochitl, Kelly Flores 06/27 [facility] En[facility] [id number] [facility] OFFICE O/P EST MOD 30 MIN [id number] Diagnos is: ICD-10- CM G40.89 Other seizure s JULIENNE,L ADRIANNE JOHAN 06/28 [facility] Encounter [id number] [facility] Encounter [id number] [facility] [id number] [facility] [id number] 1.07/07 [facility] OFFICE O/P EST MOD 30 MIN [id number] Diagnos is: ICD-10- CM R19.7 Diarrhe a, unspeci fied ENRIQUE UMANZOR 07/08 [facility] OFFICE O/P EST MOD 30 MIN [id number] Diagnos is: ICD-10- CM G40.501 Epilept ic seiz rel to extrn causes, not ntrct, w stat epi UJLIENNE,L ADRIANNE JOHAN 07/13 [facility] Encounter [id number] 07/14 [facility] Encounter [id number] 08/10 [facility] Encounter [id number] 1.08/12 [facility] Encounter [id number] [facility] Encounter [id number] 1.08/25 [facility] Out[facility] Encounter [id number] [facility] MTMS BY PHARM ADDL 15 MIN [id number] 1. Diagnos is: ICD-10- CM E11.9 Type 2 diabete s mellitu s without complic ations LINDA PERSON 09/21 [facility] COM[place]AM EST [place] 1/ [id number] Diagnos is: ICD-10- CM G45.3 Amauros is fugax MERMADDIE,DEBORAH H B 09/21 [facility] FIT SPECTACLES BIFOCAL [id number] Diagnos is: ICD-10- CM Z46.0 Encount er for fit/adj st of spectac les and contact lenses MERMADDIE,DEBORAH H B 09/21 [facility] Out[facility] Encounter [id number] 09/26 [facility] Out[facility] Encounter [id number] 10/18 [facility] Out[facility] Encounter [id number] 10/24 [facility] Out[facility] Encounter [id number] 10/24 [facility] Out[facility] Encounter [id number] 11/01 [facility] Out[facility] Encounter [id number] 11/02 [facility] Out[facility] Encounter [id number] 11/03 [facility] Out[facility] Encounter [id number] 11/08 [facility] Out[facility] Encounter [id number] 11/09 [facility] OFFICE O/P EST MOD 30 MIN [id number] Diagnos is: ICD-10- CM N50.82 Scrotal pain JULIENNE,L ADRIANNE JOHAN 11/09 [facility] PH1 ASSMT&MGMT NQHP 5-10 [id number] Diagnos is: ICD-10- CM Z71.9 Baked And Graphite Inspector ing, unspeci Kelly Knight H 11/11 [facility] Outpatient Encounter [id number] 11/21 [facility] OFF/OP CNSLTJ NEW/EST LOW 30 [id number] Diagnos is: ICD-10- CM M20.10 Hallux valgus (acquir ed), unspeci fied foot NORBERTO CONNORS DPKelly 11/28 [facility] Outpatient Encounter [id number] 12/01 [facility] OFFICE O/P EST MOD 30 MIN [id number] Diagnos is: ICD-10- CM R21 Rash and other nonspec ific skin eruptio n [place] ROBINS ADRIANNE JOHAN 12/02 [facility] Outpatient Encounter [id number] 12/13 [facility] UNLISTED SPEC DERM SVC/PX [id number] Diagnos is: ICD-10- CM Z13.89 Encount er for screeni ng for other disorde r CANDY ALVAREZ ICA A 12/15 [facility] Outpatient Encounter [id number] Diagnos is: ICD-10- CM L20.89 Other atopic dermati tis WAGNER SLADE 12/15 [facility] Outpatient Encounter [id number] 12/15 [facility] Social History Combined list of available smoking, tobacco, and other social history from Department of Defense and Veterans Affairs facilities. Social History Type Response Date Comment Source Tobacco smoking status [facility]-TOBACCO NEVER USED CIGARETTES 12/02/2024 [facility]/02[facility]2024 [facility] History of tobacco use ME-TOBACCO FORMER USER 11/27/2023 [facility] History of tobacco use ME-TOBACCO FORMER USER 12/02/2022 [facility] of [facility] 5 [facility] 11/05/2021 [facility] History of tobacco use ME-TOBACCO FORMER USER 09/14/2020 [facility] History of tobacco use QUIT TOBACCO USE > 7 YEARS AGO 01/22/2018 [facility] History of tobacco use CURRENT SMOKER 06/04/2016 been smoking pass 20 yrs [facility] History of tobacco use V1-PT DECLINES TOBACCO CESSATION MEDS 07/18/2014 [facility] History of tobacco use CURRENT SMOKER 01/09/2014 pt smokes 1 pk of cigarettes per day. [facility] History of tobacco use CURRENT TOBACCO USER 09/27/2007 [facility] History of tobacco use CURRENT SMOKER 07/28/2007 [facility] History of tobacco use CURRENT SMOKER 08/28/2003 one pack q 6 days - he has cut down from 3 PPD. He is in the process of quitting [facility] History of tobacco use CURRENT SMOKER 12/19/2002 KAT[facility] SCHAEFFER History of tobacco use CUR[facility] Plan of Care List of future care activities from [facility] facilities. Additional future care activities may be listed in the Assessment and Plan section. Date/Time Care Activity Care Activity Detail Facili ty 03/20/2025 AMBULATORY - MEDICINE AMBULATORY - MEDICI NE [facility] 11/09/2024 Consult Order COMMUNITY CARE-U ROLOGY Cons Immunology Teacher's Choice [facility] 12/20/2024 Consult Order COMMUNITY CARE-N EUROLOGY Cons Immunology Teacher's Choice [facility]
--- OUTSIDE RECORDS SUMMARY | 2024-12-21 11:57 | XMS_ITS | Encounter Summary ---
Author Name [facility] [place] Organization [facility] [place] Address [address] [place] [address] Care Team Providers Care Nuclear Supervising Operator Name Role Phone ELIZABET ROBINS Primary [...] Patient's Relationship to Policy Paul [facility] CE ORGANIZAT ION SDIA [facility] AC Apr 18, 2018 [id number] [phone] WILLISEDILBERTO LynnZA SPOUSE ANTHEM BCBS OF [place] (BLUECARD) HEALTH MAINTENAN CE ORGANIZAT ION MIIA PENDING SALE TO [facility] Apr 18, 2018 [id number] WILLIS,EDILBERTO SOTELOZA SPOUSE BCBS [facility] CE ORGANIZ [facility] SHARE ACTIV E Apr 18, 2018 [id number] WILLIS,MAR JUDITH SPOUSE BCBS OF [facility] CE ORGANIZAT ION MIIA [facility] Apr 18, 2018 [id number] [phone] WILLIS,MAR JUDITH PATIENT BCBS OF [facility] CE ORGANIZAT ION BRENDA MCCABE RSD Apr 18, 2018 [id number] WILLIS,MAR JUDITH SPOUSE [place] OF [place] PREFERRED PROVIDER ORGANIZAT ION (PPO) BRENDA PENDING SALE [facility] R[facility] AC Apr 18, 2018 [id number] WILLIS,MAR JUDITH SPOUSE BCBS OF [facility] CE ORGANIZAT ION BRENDA MCCABE RSD ACT Apr 18, 2018 [id number] WILLIS,MAR JUDITH SPOUSE BCBS OF [facility] CE ORGANIZ BRENDA MCCABE RSD AC Apr 18, 2018 [id number] [phone] WILLIS,MAR JUDITH SPOUSE [place] PRESCRIPT [facility] Oct 19, 2022 [id number] [phone] WILLIS,MAR JUDITH SPOUSE [place] PRESCRIPT ION RX22M A Oct 19, 2022 [id number] WILLIS,LAVELLE AEL PATIENT [place] PRESCRIPT ION RX22M B Oct 19, 2022 [id number] WILLIS,LAVELLE AEL PATIENT [place] PRESCRIPT ION BCBS OF [place] Oct 19, 2022 [id number] WILLIS, SPOUSE [place] PRESCRIPT ION BRENDA MCCABE RSD AC Oct 19, 2022 [id number] [phone] WILLIS,LAVELLE AEL SPOUSE [place] PRESCRIPT ION RX Oct 19, 2022 [id number] [phone] WILLIS,MAR JUDITH SPOUSE [place] ([id number]) PRESCRIPT ION [place] OF [place] Oct 19, 2022 [id number] WILLIS,MAR JUDITH SPOUSE [place] ([facility] CE ORGANIZAT ION [facility] RSD AC Apr 18, 2018 [id number] WILLISEDILBERTO SPOUSE [employer] ([id number]) PRESCRIPT ION Apr 18, 2018 L4TA [id number] WILLISEDILBERTO SPOUSE [employer] ([id number]) PRESCRIPT ION L4TA Apr 18, 2018 L4TA [id number] WILLIS,EDILBERTO WONG SPOUSE [employer] ([id number]) PRESCRIPT ION L4TA* Apr 18, 2018 L4TA [id number] WILLISEDILBERTO SPOUSE [employer] ([id number]) PRESCRIPT ION Apr 18, 2018 L4TA [id number] WILLISEDILBERTO SPOUSE [employer]-MINOR BROGATION PRESCRIPT ION BCBS OF [place] Apr 18, 2020 L4TA [phone] WILLIS,EDILBERTO WONG SPOUSE [facility]) [facility] CE ORGANIZAT ION W/OUT OF NETWORK BENEFITS [facility] RSD ACT Apr 18, 2018 [id number] EDILBERTO PEDRO SPOUSE [facility] CE ORGANIZAT ION [facility] RSD AC Apr 18, 2018 [id number] EDILBERTO PEDRO SPOUSE MEDICARE (WNR) MEDICARE () PART A Mar 19, 1990 PART A [id number] WILLISLAVELLE LEIVA AEL PATIENT MEDICARE (WN) MEDICARE () PART A Mar 19, 1990 PART A [id number] WILLISLAVELLE AEL PATIENT MEDICARE (WNR) MEDICARE () PART A Mar 19, 1990 PART A [id number] WILLIS,LAVELLE AEL PATIENT MEDICARE (WNR) MEDICARE () PART A Mar 19, 1990 PART A [id number] WILLIS,LAVELLE AEL PATIENT MEDICARE (WNR) MEDICARE (M) PART A Mar 19, 1990 PART A [id number] WILLIS,LAVELLE AEL PATIENT MEDICARE (WNR) MEDICARE (M) PART A Mar 19, 1990 PART A [id number] WILLIS,LAVELLE AEL PATIENT MEDICARE (WNR) MEDICARE (M) PART A Mar 19, 1990 PART A [id number] [phone] WILLIS,LAVELLE AEL PATIENT MEDICARE (WNR) MEDICARE (M) PART A Mar 19, 1990 PART A [id number] WILLIS,LAVELLE AEL PATIENT MEDICARE (WNR) MEDICARE (M) PART A Mar 19, 1990 PART A [id number] [phone] WILLIS,LAVELLE AEL PATIENT MEDICARE (WNR) MEDICARE (M) PART A Mar 19, 1990 PART A [id number] WILLIS,LAVELLE AEL PATIENT MEDICARE (WNR) MEDICARE (M) PART A Mar 19, 1990 PART A [id number] WILLIS,LAVELLE AEL PATIENT Selected Encounter This section includes the information on record at MD for the Encounter. Date/Time Encounter Type Encounter Description Reason Pro vider Source Nov 21, 2024 01:58 PM Outpatient Encounter ADMIN PAT ACTIVTIES (MASNONCT) IHE Encounter Template Text not used by MD Plan of Treatment: Future Appointments (+ 6 months) and Future Tests (+/- 45 days) The Plan of Treatment section includes future care activities for the patient from all MD treatmentfacilities. This section includes future appointments and future orders which are active, pending or scheduled. Future Appointments This section includes appointments that were scheduled to occur 6 months from the date of the Encounter, up to a maximum of 20 appointments. The data comes from all MD treatment facilities. Appointment Date/Time Appointment Type Appointme nt Facility Name Nov 28, 2024 09:30 AM AMBULATORY - MEDICINE [facility] Dec 02, 2024 08:30 AM AMBULATORY MEDICINE [facility] Dec 15, 2024 10:30 AM AMBULATORY - MEDICINE [facility] [place] [facility] Dec 16, 2024 10:20 AM AMBULATORY - MEDICINE [facility] [place] [facility] Mar 20, 2025 09:00 AM AMBULATORY - MEDICINE [facility] [place] [facility] Active, Pending, and Scheduled Orders This section includes a listing of several types of active, pending, and scheduled orders, including clinic medications orders, diagnostic test orders, procedure orders and consult orders; where the start date of the order is 45 days before the date of the Encounter or 45 days after the date of theEncounter. The data comes from all MD treatment facilities. 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 Cons System Support Developer's Choice [facility] [place] [facility] Dec 20, 2024 11:49 AM Consult Order COMMUNITY CARE-NEUROLOGY Cons System Support Developer's Choice [facility] [place] [facility] Social History: Smoking Status (Most current) and Tobacco Use (All prior to encounter date) This section includes the most current, and the historical, smoking and tobacco- related health factors from the MD facility where the Encounter took place. Current Smoking Status This section includes the most current smoking, or tobacco-related health factor, from the MD facility where the Encounter took place. Date/Time Current Smoking Status Comment [facility] Nov 27, 2023 11:00 AM [facility] Tobacco Use History This section includes a history of the smoking, or tobacco-related health factors, that were collected on or before the date of the Encounter. The data comes from the MD facility where the Encounter took place. Date/Time Smoking Status/Tobac co Use Comment Facility Nov 27, 2023 11:00 AM VA-TOBACCO QUIT 15 YRS OR MORE [facility] [place] [facility] Dec 02, 2022 08:00 AM VA-TOBACCO FORMER USER [facility] [place] [facility] Dec 02, 2022 08:00 AM VA-TOBACCO QUIT 15 YRS OR MORE [facility] [place] [facility] Nov 05, 2021 10:30 AM VA-TOBACCO FORMER USER [facility] Nov 05, 2021 10:30 AM VA-TOBACCO QUIT 1 TO < 5 YRS [facility] Sep 14, 2020 02:00 PM VA-TOBACCO FORMER USER [facility] Sep 14, 2020 02:00 PM VA-TOBACCO QUIT 5 TO < 15 YRS [facility] Jan 22, 2018 03:40 PM QUIT TOBACCO USE > 7 YEARS AGO [facility] Jun 04, 2016 02:01 PM CURRENT SMOKER been smoking pass 20 yrs [facility] Jun 04, 2016 02:01 [...] Encounter. Date/Time Encounter Note(s) Provider Source Nov 21, 2024 03:50 PM ADDENDUM: LOCAL TITLE: Addendum STANDARD TITLE: ADDENDUM DATE OF NOTE: NOV 21, 2024@15:50:12 ENTRY DATE: NOV 21, 2024@15:50:13 AUTHOR: ELIZABET ROBINS EXP COSIGNER: URGENCY: STATUS: COMPLETED all set and ordered for him, mailed thanks /gaetano/ CIERRA GREGORY Nurse Practitioner Signed: 11/21/2024 15:50 Receipt Acknowledged By: 11/22/2024 11:39 /gaetano/ MARYJO GARCIA REGISTERED NURSE === --- Original Document --- 11/21/24 CCC: SCHEDULING ADMINISTRATION: Patient Demographics Patient Name: CHAYA PEDRO Patient Primary Phone: [phone] Patient Primary Address: [address] [place] [address] Patient : 1955 Patient Age: 69 Call Back Number: [phone] Caller/Recipient Relation to Patient: Self Caller Name: CHAYA PEDRO Administrative Administrative Note Reason: Other Administrative Note Comments: [place] and spouse calling in regarding medication prescribed by hospital IC Pantoprazole Sod DR 40MG tab. Spouse thought PCP was going to refill medication. and spouse can be reached for follow up. IMPORTANT: This note was created by [facility] staff. Please do not alert the staff member by adding them as a signer for future communications. Alerts are not monitored by this user. /es/ JYOTHI JUDGE 1 [facility] AMSA Signed: 11/21/2024 13:58 Receipt Acknowledged By: 11/21/2024 15:51 /gaetano/ MARYJO GARCIA REGISTERED NURSE 11/22/2024 11:23 /es/ Marcia Zendejas weapons specialist Staff Nurse 11/21/2024 ADDENDUM STATUS: COMPLETED adding PCP /jerry GARCIA REGISTERED NURSE Signed: 11/21/2024 15:03 Receipt Acknowledged By: 11/21/2024 15:47 /CIERRA Waller Nurse Practitioner ELIZABET ROBINS [facility] Nov 21, 2024 03:03 PM ADDENDUM: LOCAL TITLE: Addendum STANDARD TITLE: ADDENDUM DATE OF NOTE: NOV 21, 2024@15:03:17 ENTRY DATE: NOV 21, 2024@15:03:18 AUTHOR: MARYJO GARCIA EXP COSIGNER: URGENCY: STATUS: COMPLETED adding PCP /gaetano/ MARYJO GARCIA REGISTERED NURSE Signed: 11/21/2024 15:03 Receipt Acknowledged By: 11/21/2024 15:47 /gaetano/ CIERRA GREGORY Nurse Practitioner === --- Original Document --- 11/21/24 CCC: SCHEDULING ADMINISTRATION: Patient Demographics Patient Name: CHAYA PEDRO Patient Primary Phone: [phone] Patient Primary Address: [address] [place] [address] Patient : 1955 Patient Age: 69 Call Back Number: [phone] Caller/Recipient Relation to Patient: Self Caller Name: CHAYA PEDRO Administrative Administrative Note Reason: Other Administrative Note Comments: [place] and spouse calling in regarding medication prescribed by hospital IC Pantoprazole Sod DR 40MG tab. Spouse thought PCP was going to refill medication. and spouse can be reached for follow up. IMPORTANT: This note was created by [facility] staff. Please do not alert the staff member by adding them as a signer for future communications. Alerts are not monitored by this user. /es/ JYOTHI JUDGE 1 [facility] AMSA Signed: 11/21/2024 13:58 Receipt Acknowledged By: * AWAITING SIGNATURE * MARYJO GARCIA * AWAITING SIGNATURE * MARCIA ZENDEJAS MELISSA H [facility] [place] [facility] Nov 21, 2024 01:58 PM ADMINISTRATIVE NOTE: LOCAL TITLE: CCC: SCHEDULING ADMINISTRATION STANDARD TITLE: ADMINISTRATIVE NOTE DATE OF NOTE: NOV 21, 2024@13:58:42 ENTRY DATE: NOV 21, 2024@13:58:42 AUTHOR: JYOTHI KEENE EXP COSIGNER: URGENCY: STATUS: COMPLETED CCC: SCHEDULING ADMINISTRATION Has ADDENDA Patient Demographics Patient Name: CHAYA PEDRO Patient Primary Phone: [phone] Patient Primary Address: [address] [place] [address] Patient : 1955 Patient Age: 69 Call Back Number: [phone] Caller/Recipient Relation to Patient: Self Caller Name: CHAYA PEDRO Administrative Administrative Note Reason: Other Administrative Note Comments: and spouse calling in regarding medication prescribed by hospital IC Pantoprazole Sod DR 40MG tab. Spouse thought PCP was going to refill medication. [place] and spouse can be reached for follow up. IMPORTANT: This note was created by [facility] staff. Please do not alert the staff member by adding them as a signer for future communications. Alerts are not monitored by this user. /gaetano/ JYOTHI JUDGE 1 [facility] Signed: 11/21/2024 13:58 Receipt Acknowledged By: 11/21/2024 15:51 /gaetano/ MARYJO GARCIA REGISTERED NURSE 11/22/2024 11:23 /gaetano/ Marcia Zendejas RN Primary Care Staff Nurse 11/21/2024 ADDENDUM STATUS: COMPLETED adding PCP /jerry GARCIA REGISTERED NURSE Signed: 11/21/2024 15:03 Receipt Acknowledged By: 11/21/2024 15:47 /gaetano/ CIERRA GREGORY Nurse Practitioner 11/21/2024 ADDENDUM STATUS: COMPLETED all set and ordered for him, mailed thanks /CIERRA Waller Nurse Practitioner Signed: 11/21/2024 15:50 Receipt Acknowledged By: 11/22/2024 11:39 /jerry GARCIA REGISTERED NURSE 11/22/2024 ADDENDUM STATUS: COMPLETED PACT RN returned call but no answer left a HIPPA compliant message requesting a return call back. /jerry GARCIA REGISTERED NURSE Signed: 11/22/2024 11:39 JYOTHI KEENE [facility]
--- OUTSIDE RECORDS SUMMARY | 2024-12-21 11:57 | XMS_ITS | Encounter Summary ---
Author Name [place] Address [address] [place] [address] Care Team Providers Care Paperboard Box Maker Name Role Phone ELIZABET ROBINS Primary [...] Policy Paul [facility] CE ORGANIZAT ION UT[facility] Apr 18, 2018 [id number] [phone] WILLIS,EDILBERTO SOTELOZA SPOUSE ANTHEM BCBS OF [place] (BLUECARD) HEALTH MAINTENAN CE ORGANIZAT ION MIIA [address] Apr 18, 2018 [id number] WILLIS,MAR JUDITH SPOUSE BCBS [facility] CE ORGANIZ [facility] SHARE ACTIV E Apr 18, 2018 [id number] [phone] WILLIS,MAR JUDITH SPOUSE BCBS OF [facility] CE ORGANIZAT ION M[facility]A [facility] Apr 18, 2018 [id number] [phone] WILLIS,MAR JUDITH PATIENT BCBS OF [facility] CE ORGANIZAT ION BRENDA MCCABE [facility] Apr 18, 2018 [id number] WILLIS,MAR JUDITH SPOUSE BCBS OF [place] PREFERRED PROVIDER ORGANIZAT ION (PPO) BRENDA MCCABE [facility] AC Apr 18, 2018 [id number] [phone] WILLIS,MAR JUDITH SPOUSE BCBS OF [facility] CE ORGANIZAT ION BRENDA MCCABE [facility] ACT Apr 18, 2018 [id number] WILLIS,MAR JUDITH SPOUSE BCBS OF [facility] CE ORGANIZ BRENDA MCCABE [facility] AC Apr 18, 2018 [id number] [phone] WILLIS,MAR JUDITH SPOUSE [place] PRESCRIPT ION RX Oct 19, 2022 RX22MC [id number] WILLIS,MAR JUDITH SPOUSE [place] PRESCRIPT ION RX22M A Oct 19, 2022 RX22MA [id number] WILLIS,LAVELLE AEL PATIENT [place] PRESCRIPT ION RX22M B Oct 19, 2022 RX22MB [id number] WILLIS,LAVELLE AEL PATIENT [place] PRESCRIPT ION [place] OF [place] Oct 19, 2022 RX22MA [id number] WILLIS, SPOUSE [place] PRESCRIPT ION [facility] Oct 19, 2022 RX22MB [id number] WILLIS,MAR JUDITH SPOUSE [place] PRESCRIPT ION BRENDA MCCABE [facility] AC Oct 19, 2022 RX22MB [id number] [phone] WILLIS,LAVELLE AEL SPOUSE [place] ([id number]) PRESCRIPT ION [place] Oct 19, 2022 RX22MB [id number] [phone] WILLIS,MAR JUDITH SPOUSE [place] BCBS [facility] CE ORGANIZAT ION [facility] RSD AC Apr 18, 2018 [id number] [phone] WILLISEDILBERTO SPOUSE [employer] ([id number]) PRESCRIPT ION Apr 18, 2018 L4TA [id number] WILLISEDILBERTO SPOUSE [employer] ([id number]) PRESCRIPT ION Apr 18, 2018 L4TA [id number] WILLISEDILBERTO SPOUSE [employer] ([id number]) PRESCRIPT ION L4TA* Apr 18, 2018 L4TA [id number] WILLISEDILBERTO SPOUSE [employer] ([id number]) PRESCRIPT ION L4TA Apr 18, 2018 L4TA [id number] WILLISEDILBERTO Lynn SPOUSE EXPRESS [employer]TS-MINOR BROGATION PRESCRIPT ION [place]BS OF [place] Apr 18, 2020 L4TA [id number] WILLISEDILBERTO SPOUSE [place] [facility] CE ORGANIZAT ION W/OUT OF NETWORK BENEFITS [facility] RSD ACT Apr 18, 2018 [id number] EDILBERTO PEDRO SPOUSE [facility] CE ORGANIZAT ION [facility] AC Apr 18, 2018 [id number] WILLISEDILBERTO SPOUSE MEDICARE (WNR) MEDICARE () PART A Mar 19, 1990 PART A [id number] WILLIS,LAVELLE AEL PATIENT MEDICARE (WNR) MEDICARE () PART A Mar 19, 1990 PART A [id number] [phone] WILLIS,LAVELLE AEL PATIENT MEDICARE (WNR) MEDICARE () PART A Mar 19, 1990 PART A [id number] [phone] WILLIS,LAVELLE AEL PATIENT MEDICARE (WNR) MEDICARE () PART A Mar 19, 1990 PART A [id number] WILLIS,LAVELLE AEL PATIENT MEDICARE (WNR) MEDICARE (M) PART A Mar 19, 1990 PART A [id number] [phone] WILLIS,LAVELLE AEL PATIENT MEDICARE (WNR) MEDICARE (M) PART A Mar 19, 1990 PART A [id number] [phone] WILLIS,LAVELLE AEL PATIENT MEDICARE (WNR) MEDICARE (M) PART A Mar 19, 1990 PART A [id number] [phone] WILLIS,LAVELLE AEL PATIENT MEDICARE (WNR) MEDICARE (M) PART A Mar 19, 1990 PART A [id number] [phone] WILLIS,LAVELLE AEL PATIENT MEDICARE (WNR) MEDICARE (M) PART A Mar 19, 1990 PART A [id number] [phone] WILLIS,LAVELLE AEL PATIENT MEDICARE (WNR) MEDICARE (M) PART A Mar 19, 1990 PART A [id number] WILLIS,LAVELLE AEL PATIENT MEDICARE (WNR) MEDICARE (M) PART A Mar 19, 1990 PART A [id number] WILLIS,LAVELLE AEL PATIENT Selected Encounter This section includes the information on record at [place] for the Encounter. Date/Time Encounter Type Encounter Description Reason Pro vider Source Dec 13, 2024 04:32 PM Outpatient Encounter COMMUNITY CARE CONSULT IHE [...] 15, 2024 10:30 AM AMBULATORY [facility] Dec 16, 2024 10:20 AM [facility] Mar 20, 2025 09:00 AM AMBULATORY - [facility]ICINE [place] [facility] Active, Pending, and Scheduled Orders This section includes a listing of several types of active, pending, and scheduled orders, including clinic medications orders, diagnostic test orders, procedure orders and consult orders; where the start date of the order is 45 days before the date of the Encounter or 45 days after the date of theEncounter. The data comes from all [place] treatment facilities. 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 Cons Fish Hatchery Specialist's Choice [place] [facility] Dec 20, 2024 11:49 AM Consult Order COMMUNITY CARE-NEUROLOGY [facility] Fish Hatchery Specialist's Choice [place] [facility] Social History: Smoking Status (Most [...] took place. Date/Time Current Smoking Status Comment [facility] Dec 02, 2024 08:30 AM VA-TOBACCO NEVER U SED CIGARETTES [place] [facility] Tobacco Use History This section includes a history of the smoking, or tobacco-related health factors, that were collected on or before the date of the Encounter. The data comes from the [place] facility where the Encounter took place. Date/Time Smoking Status/Tobac co Use Comment Facility Dec 02, 2024 08:30 AM VA-TOBACCO NEVER USED OTHER TYPE [place] [facility] Nov 27, 2023 11:00 AM VA-TOBACCO FORMER USER [place] [facility] Nov 27, 2023 11:00 AM VA-TOBACCO QUIT 15 YRS OR MORE [place] [facility] Dec 02, 2022 08:00 AM VA-TOBACCO FORMER USER [place] [facility] Dec 02, 2022 08:00 AM VA-TOBACCO QUIT 15 YRS OR MORE [place] [facility] Nov 05, 2021 10:30 AM VA-TOBACCO FORMER USER [place] [facility] Nov 05, 2021 10:30 AM VA-TOBACCO QUIT 1 TO < 5 YRS [facility] Sep 14, 2020 02:00 PM VA-TOBACCO FORMER USER [facility] Sep 14, 2020 02:00 PM VA-TOBACCO QUIT 5 TO < 15 YRS [facility] Jan 22, 2018 03:40 PM QUIT TOBACCO USE > 7 YEARS AGO [facility] Jun 04, 2016 02:01 PM CURRENT SMOKER been smoking pass 20 yrs [facility] Jun 04, 2016 02:01 PM V1-PT DECLINES REF TO TOBACCO CESS PRGM [facility] Jun 04, 2016 02:01 PM V1-PT THINKING ABOUT QUIT TOBACCO USE [facility] Jul 18, 2014 03:31 PM V1-PT DECLINES REF TO TOBACCO CESS PRGM [facility] Jul 18, 2014 03:31 PM V1-PT DECLINES TOBACCO CESSATION MEDS [facility] Jul 18, 2014 03:31 PM V1-PT NOT INTERESTED IN QUIT TOBACCO USE [facility] Jan 09, 2014 10:43 AM CURRENT SMOKER pt smokes 1 pk of cigarettes per day. [facility] Jan 09, 2014 10:43 AM V1-PT THINKING ABOUT QUIT TOBACCO USE [facility] Aug 28, 2003 10:47 AM CURRENT SMOKER one pack q 6 days - he has cut down from 3 PPD. He is in the process of quitting [facility] Encounter Notes: All associated encounter notes This section contains the clinical notes associated to the Encounter. Date/Time Encounter Note(s) Provider Source Dec 13, 2024 04:32 PM NONVA NOTE: LOCAL TITLE: [facility] PRESENTING CARE COORD PLAN STANDARD TITLE: NONVA NOTE DATE OF NOTE: DEC 13, 2024@16:32 ENTRY DATE: DEC 13, 2024@16:32:42 AUTHOR: SONNY BOGGS COSIGNER: URGENCY: STATUS: COMPLETED Emergency Notification Intake Date Presenting to the Facility: Oct Method of Contact: Notified from ECR worklist Notification ID: [id number] [facility] Referral #: [id number] [facility] Hospital Name: Hospital: [facility] Address: City: [place] State: [place] Zip Code: Phone : Community Facility Point of Contact: Name: Messi Phone: Chief complaint: ASTHMA, TROUBLE BREATHING, [id number] - Unspecified asthma with (acute) exacerbation Primary Diagnosis: Disposition Discharged Date of discharge: Oct Discharge to Comment: ER Only /es/ SONNY RITCHIE Signed: 12/13/2024 16:39 Receipt Acknowledged By: * AWAITING SIGNATURE * ELIZABET CARDOZO DAWN MARIE PIONEER
--- OUTSIDE RECORDS SUMMARY | 2024-12-21 11:57 | XMS_ITS | Encounter Summary ---
Author Name [place] Address [address] [place] [address] Care Team Providers Care Nuclear Medicine Chief Technologist Name Role Phone ELIZABET ROBINS Primary Care [...] FOR [facility] [place] CE ORGANIZAT ION IAIA [facility] AC Apr 18, 2018 [id number] [phone] WILLISEDILBERTO LynnZA SPOUSE ANTHE[place] OF [place] ([place]ARD) HEALTH MAINTENAN CE ORGANIZAT ION MIIA [facility] Apr 18, 2018 [id number] WILLIS,EDILBERTO SOTELOZA SPOUSE BCBS [facility] CE ORGANIZ [facility] SHARE ACTIV E Apr 18, 2018 [id number] WILLIS,MAR JUDITH SPOUSE BCBS OF [facility] CE ORGANIZAT ION MIIA [facility] Apr 18, 2018 [id number] [phone] WILLIS,MAR JUDITH PATIENT BCBS OF [facility] CE ORGANIZAT ION BRENDA MCCABE RSD Apr 18, 2018 [id number] WILLIS,MAR JUDITH SPOUSE BC[place] OF [place] PREFERRED PROVIDER ORGANIZAT ION (PPO) [facility]DA [facility] AC Apr 18, 2018 [id number] WILLIS,MAR JUDITH SPOUSE BCBS OF [facility] CE ORGANIZAT ION BRENDA MCCABE RSD ACT Apr 18, 2018 [id number] WILLIS,MAR JUDITH SPOUSE BCBS OF [facility] CE ORGANIZ BRENDA [facility] AC Apr 18, 2018 [id number] [phone] WILLIS,MAR JUDITH SPOUSE [place] PRESCRIPT ION RX Oct 19, 2022 RX22MC [id number] WILLIS,MAR JUDITH SPOUSE [place] PRESCRIPT ION RX22M A Oct 19, 2022 RX22MA [id number] WILLIS,LAVELLE AEL PATIENT [place] PRESCRIPT ION RX22M B Oct 19, 2022 RX22MB [id number] WILLIS,LAVELLE AEL PATIENT [place] PRESCRIPT ION BRENDA MCCABE RSD AC Oct 19, 2022 RX22MB [phone] WILLIS,LAVELLE AEL SPOUSE [place] PRESCRIPT ION BCBS OF [place] Oct 19, 2022 RX22MA [id number] WILLIS, SPOUSE [place] PRESCRIPT ION [facility] Oct 19, 2022 RX22MB [id number] WILLIS,MAR JUDITH SPOUSE [place] ([id number]) PRESCRIPT ION [place]BS OF [place] Oct 19, 2022 RX22MB [id number] [phone] WILLIS,MAR JUDITH SPOUSE [place] BCBS ([facility] CE ORGANIZAT ION IATRISTEN IRA [facility] RSD AC Apr 18, 2018 [id number] WILLISEDILBERTO SPOUSE [employer] ([id number]) PRESCRIPT ION Apr 18, 2018 L4TA [id number] WILLISEDILBERTO SPOUSE [employer] ([id number]) PRESCRIPT ION Apr 18, 2018 L4TA [id number] WILLISEDILBERTO SPOUSE [employer] ([id number]) PRESCRIPT ION L4TA* Apr 18, 2018 L4TA [id number] WILLISEDILBERTO SPOUSE [employer] ([id number]) PRESCRIPT ION L4TA Apr 18, 2018 L4TA [id number] WILLISEDILBERTO SPOUSE [employer]-MINOR BROGATION PRESCRIPT ION BCBS OF [place] Apr 18, 2020 L4TA [id number] WILLIS,EDILBERTO WONG SPOUSE [place] [facility]) [facility] CE ORGANIZAT ION W/OUT OF NETWORK BENEFITS [facility] RSD ACT Apr 18, 2018 [id number] EDILBERTO PEDRO SPOUSE [facility] CE ORGANIZAT ION [facility] RSD AC Apr 18, 2018 [id number] EDILBERTO PEDRO SPOUSE MEDICARE (WNR) MEDICARE () PART A Mar 19, 1990 PART A [id number] [phone] LAVELLE PEDRO AEL PATIENT MEDICARE (WNR) MEDICARE () PART A Mar 19, 1990 PART A [id number] LAVELLE PEDRO AEL PATIENT MEDICARE (WNR) MEDICARE () PART A Mar 19, 1990 PART A [id number] WILLISLAVELLE AEL PATIENT MEDICARE (WNR) MEDICARE () PART A Mar 19, 1990 PART A [id number] WILLIS,LAVELLE AEL PATIENT MEDICARE (WNR) MEDICARE (M) PART A Mar 19, 1990 PART A [id number] WILLIS,LAVELLE AEL PATIENT MEDICARE (WNR) MEDICARE (M) PART A Mar 19, 1990 PART A [id number] [phone] WILLIS,LAVELLE AEL PATIENT MEDICARE (WNR) MEDICARE (M) PART A Mar 19, 1990 PART A [id number] WILLIS,LAVELLE AEL PATIENT MEDICARE (WNR) MEDICARE (M) PART A Mar 19, 1990 PART A [id number] WILLIS,LAVELLE AEL PATIENT MEDICARE (WNR) MEDICARE (M) PART A Mar 19, 1990 PART A [id number] [phone] [id number] WILLIS,LAVELLE AEL PATIENT MEDICARE (WNR) MEDICARE (M) PART A Mar 19, 1990 PART A [id number] [phone] WILLIS,LAVELLE AEL PATIENT MEDICARE (WNR) MEDICARE (M) PART A Mar 19, 1990 PART A [id number] WILLIS,LAVELLE AEL PATIENT Selected Encounter This [...] 28, 2024 11:30 AM AMBULATORY - MEDICINE [facility] Jul 08, 2024 10:30 AM AMBULATORY MEDICINE [facility] Jul 13, 2024 09:30 AM AMBULATORY - MEDICINE [place] [facility] Aug 12, 2024 09:30 AM AMBULATORY - MEDICINE [place] [facility] Aug 22, 2024 09:00 AM AMBULATORY - MEDICINE [place] [facility] Sep 21, 2024 09:00 AM AMBULATORY - MEDICINE [facility] [place] [facility] Sep 21, 2024 10:00 AM AMBULATORY - MEDICINE [facility] [place] [facility] Nov 09, 2024 11:30 AM AMBULATORY - MEDICINE [facility] [facility] Nov 28, 2024 09:30 AM AMBULATORY - MEDICINE [facility] [place] [facility] Dec 02, 2024 08:30 AM AMBULATORY - MEDICINE [place] [facility] Dec 15, 2024 10:30 AM AMBULATORY - MEDICINE [place] [facility] Dec 16, 2024 10:20 AM AMBULATORY - MEDICINE [place] [facility] Lab Results: +/- 30 days of the encounter This section includes the Chemistry and Hematology Lab Results on record with [place] for the patient. Radiology Reports and Pathology Reports are provided separately, in subsequent sections. Lab Results This section contains the Chemistry/Hematology Results that were resulted 30 days before or 30 daysafter the date of the Encounter. Date/Time Source Result Type Result - Unit Interpretation Reference Range Comment Jun 01, 2024 12:25 PM [facility] MICROALBUMIN CREATININE RATIO PANEL Specimen Type: URINE No comment entered. Ordering Provider: LINDA PERSON Report Released Date/Time: Jun 01, 2024 11:53 AM Reporting Lab: [place] [facility] [address] [address] Performing Lab: [place] [facility] [address] [address] MICROALBUMIN/C REATININE RATIO 10.8 mg/g 0-29.9 MICROALBUMIN,Q UANTITATIVE 1.1 mg/dL RR UNAVAIL CREATININE URINE 101.63 mg/dL Jun 01, 2024 10:38 AM [facility] HEMOGLOBIN A1C PANEL Specimen Type: BLOOD [...] May 30, 2024 10:29 AM Reporting Lab: [address] [address] Performing Lab: [address] [address] HEMOGLOBIN A1C 5.8 H 4.0-5.6 Jun 01, 2024 10:38 AM [facility] BASIC METABOLIC PANEL (non-fasting) Specimen Type: SERUM No comment entered. Ordering Provider: LINDA PERSON Report Released Date/Time: May 30, 2024 10:29 AM Reporting Lab: [address] [address] Performing Lab: [address] [address] UREA NITROGEN 13 mg/dL 7-25 GLUCOSE 115 mg/dL H 65-100 SODIUM 140 mmol/L 135-145 POTASSIUM 4.3 mmol/L 3.5-5.0 CHLORIDE 107 mmol/L 100-110 CO2 21 meq/L 20-30 CREATININE, Serum 0.84 mg/dL 0.50-1.40 eGFR(CKD-EPI 2020) >90 mL/min >60 Jun 01, 2024 10:38 AM [facility] LIPID PANEL, NON FASTING Specimen Type: SERUM No comment entered. Ordering Provider: LINDA PERSON Report Released Date/Time: Jun 01, 2024 10:12 AM Reporting Lab: [address] [address] Performing Lab: [address] [address] CHOLESTEROL 126 mg/dL TRIGLYCERIDE 114 mg/dL 0-150 [...] smoking, or tobacco-related health factor, from the [place] facility where the Encounter took place. Date/Time Current Smoking Status Comment Enrique sotelo Nov 27, 2023 11:00 AM VA-TOBACCO FORMER USER [place] [facility] Tobacco Use History This section includes a history of the smoking, or tobacco-related health factors, that were collected on or before the date of the Encounter. The data comes from the [place] facility where the Encounter took place. Date/Time Smoking Status/Tobac co Use Comment [facility] Nov 27, 2023 11:00 AM VA-TOBACCO QUIT 15 YRS OR MORE [place] [facility] Dec 02, 2022 08:00 AM VA-TOBACCO FORMER USER [place] [facility] Dec 02, 2022 08:00 AM VA-TOBACCO QUIT 15 YRS OR MORE [place] [facility] Nov 05, 2021 10:30 AM VA-TOBACCO FORMER USER [place] [facility] Nov 05, 2021 10:30 AM VA-TOBACCO QUIT 1 TO < 5 YRS [place] [facility] Sep 14, 2020 02:00 PM VA-TOBACCO FORMER USER [place] [facility] Sep 14, 2020 02:00 PM VA-TOBACCO QUIT 5 TO < 15 YRS [place] [facility] Jan 22, 2018 03:40 PM QUIT TOBACCO USE > 7 YEARS AGO [place] [facility] Jun 04, 2016 02:01 PM CURRENT SMOKER been smoking pass 20 yrs [place] [facility] Jun 04, 2016 02:01 PM V1-PT DECLINES REF TO TOBACCO CESS PRGM [place] [facility] Jun 04, 2016 02:01 PM V1-PT THINKING ABOUT QUIT TOBACCO USE [place] [facility] Jul 18, 2014 03:31 PM V1-PT DECLINES REF TO TOBACCO CESS PRGM [facility] Jul 18, 2014 03:31 PM V1-PT DECLINES TOBACCO CESSATION MEDS [facility] Jul 18, 2014 03:31 PM V1-PT NOT INTERESTED IN QUIT TOBACCO USE [facility] Jan 09, 2014 10:43 AM CURRENT SMOKER pt smokes 1 pk of cigarettes per day. [facility] Jan 09, 2014 10:43 AM V1-PT THINKING ABOUT QUIT TOBACCO USE [facility] Aug 28, 2003 10:47 AM CURRENT SMOKER one pack q 6 days - he has cut down from 3 PPD. He is in the process of quitting [facility] Encounter Notes: All associated encounter notes This section contains the clinical notes associated to the Encounter. Date/Time Encounter Note(s) Provider Source Jun 21, 2024 11:28 PM PHARMACY NOTE: LOCAL TITLE: V1 PHARMACY CUSTOMER CARE MEDICATION RENEWAL STANDARD TITLE: PHARMACY NOTE DATE OF NOTE: JUN 21, 2024@23:28 ENTRY DATE: JUN 21, 2024@23:28:32 AUTHOR: BONG JOE EXP COSIGNER: URGENCY: STATUS: COMPLETED Date: Jun Division: [place] Pt referred by Pharmacy Call Center for medication renewal: Non-controlled/maintena nce medication Medications requested: [id number] AMLODIPINE BESYLATE 5MG TAB Defer to primary care provider To be mailed . Please review and renew if appropriate. *This note was generated by [facility] [facility] Customer Care. If you have any questions or need assistance, do not contact this author. Please refer all questions to your local, on-site pharmacy departments. /gaetano/ BONG JOE CPhT Gas Station Operator, [place]/Pharmacy Customer Care Signed: 06/21/2024 23:28 Receipt Acknowledged By: 06/24/2024 15:31 /gaetano/ CIERRA GREGORY Nurse Practitioner 06/22/2024 07:52 /gaetano/ DEBBIE GORMAN, MSN, RN, CNL PRIMARY CARE TEAM NURSE BONG JOE [facility]
--- OUTSIDE RECORDS SUMMARY | 2024-12-21 11:58 | XMS_ITS | Encounter Summary ---
Author Name [facility] [place] Address [address] [place] [address] Care Team Providers Care Food Product Inspector Name Role Phone ELIZABET ROBINS Primary [...] to Policy Paul [facility] CE ORGANIZAT ION UTIA [facility] Apr 18, 2018 [id number] WILLISEDILBERTO SPOUSE ANTHEM [place] OF [place] ([place]ARD) HEALTH MAINTENA[place] CE ORGANIZAT ION [facility] Apr 18, 2018 [id number] WILLIS,EDILBERTO SOTELOZA SPOUSE BCBS [facility] MAINST. [facility]GANIZ [facility] E Apr 18, 2018 [id number] [phone] WILLIS,EDILBERTO SOTELOZA SPOUSE BCBS OF [facility]GAN[facility]AT ION [facility] Apr 18, 2018 [id number] [phone] WILLIS,MAR JUDITH PATIENT BCBS OF [facility] CE ORGANIZAT ION BRENDA MCCABE [facility] Apr 18, 2018 [id number] WILLIS,MAR JUDITH SPOUSE BCBS OF [place] PREFERRED PROVIDER ORGANIZAT ION (PPO) [facility] Apr 18, 2018 [id number] [phone] WILLIS,MAR JUDITH SPOUSE BCBS OF [facility] CE ORGANIZAT ION [facility] ACT Apr 18, 2018 [id number] [phone] WILLIS,MAR JUDITH SPOUSE BCBS OF [facility] CE ORGANIZ BRENDA MCCABE [facility] AC Apr 18, 2018 [id number] WILLIS,MAR JUDITH SPOUSE [place] PRESCRIPT ION RX Oct 19, 2022 [id number] WILLIS,MAR JUDITH SPOUSE [place] PRESCRIPT ION [place] Oct 19, 2022 [id number] [phone] WILLIS, SPOUSE [place] PRESCRIPT ION RX22M A Oct 19, 2022 [id number] [phone] WILLIS,LAVELLE AEL PATIENT [place] PRESCRIPT ION RX22M B Oct 19, 2022 [id number] [phone] WILLIS,LAVELLE AEL PATIENT [place] PRESCRIPT ION BRENDA MCCABE [facility] AC Oct 19, 2022 [phone] WILLIS,LAVELLE AEL SPOUSE [place] PRESCRIPT ION [facility] Oct 19, 2022 [id number] WILLIS,MAR JUDITH SPOUSE [place] ([id number]) PRESCRIPT [place] Oct 19, 2022 [id number] [phone] WILLIS,MAR JUDITH SPOUSE [place] ([facility] CE ORGANIZAT ION [facility] AC Apr 18, 2018 [id number] [phone] WILLISEDILBERTO SPOUSE [employer] ([id number]) PRESCRIPT ION Apr 18, 2018 L4TA [id number] WILLISEDILBERTO SPOUSE [employer] ([id number]) PRESCRIPT ION L4TA* Apr 18, 2018 L4TA [id number] WILLISEDILBERTO SPOUSE [employer] ([id number]) PRESCRIPT ION L4TA Apr 18, 2018 L4TA [id number] [phone] WILLIS,EDILBERTO WONG SPOUSE [employer] ([id number]) PRESCRIPT ION Apr 18, 2018 L4TA [id number] [phone] WILLISEDILBERTO Lynn SPOUSE [employer]-MINOR BROGATION PRESCRIPT ION [place] Apr 18, 2020 L4TA [id number] [phone] WILLIS,EDILBERTO WONG SPOUSE [facility] ([facility]) [facility] MAINST. [facility] CE ORGANIZAT ION W/OUT OF NETWORK BENEFITS [facility] ACT Apr 18, 2018 [id number] EDILBERTO PEDRO SPOUSE [facility] (BLUECARD) [facility] CE ORGANIZAT ION [facility] Apr 18, 2018 [phone] WILLISEDILBERTO SPOUSE MEDICARE (WNR) MEDICARE () PART A Mar 19, 1990 PART A [id number] WILLISLAVELLE AEL PATIENT MEDICARE (WNR) MEDICARE () PART A Mar 19, 1990 PART A [id number] [phone] WILLIS,LAVELLE AEL PATIENT MEDICARE (WNR) MEDICARE () PART A Mar 19, 1990 PART A [id number] WILLIS,LAVELLE AEL PATIENT MEDICARE (WNR) MEDICARE () PART A Mar 19, 1990 PART A [id number] WILLIS,LAVELLE AEL PATIENT MEDICARE (WNR) MEDICARE (M) PART A Mar 19, 1990 PART A [id number] [phone] WILLIS,LAVELLE AEL PATIENT MEDICARE (WNR) MEDICARE (M) PART A Mar 19, 1990 PART A [id number] WILLIS,LAVELLE AEL PATIENT MEDICARE (WNR) MEDICARE (M) PART A Mar 19, 1990 PART A [id number] [phone] WILLIS,LAVELLE AEL PATIENT MEDICARE (WNR) MEDICARE (M) PART A Mar 19, 1990 PART A [id number] WILLIS,LAVELLE AEL PATIENT MEDICARE (WNR) MEDICARE (M) PART A Mar 19, 1990 PART A [id number] WILLIS,LAVELLE AEL PATIENT MEDICARE (WNR) MEDICARE (M) PART A Mar 19, 1990 PART A [id number] WILLIS,LAVELLE AEL PATIENT MEDICARE (WNR) MEDICARE (M) PART A Mar 19, 1990 PART A [id number] [phone] WILLIS,LAVELLE AEL PATIENT Selected Encounter This [...] care activities for the patient from all [place] treatmentfacilities. This section includes future appointments and [...] 01, 2024 10:00 AM [place] [facility] [place] [facility] Jun 01, 2024 11:30 AM [place] [facility] [facility] [place] [facility] Jun 28, 2024 11:30 AM [place] [facility] [facility] [place] [facility] Jul 08, 2024 10:30 AM [place] [facility] [facility] [place] [facility] Jul 13, 2024 09:30 AM [place] [facility] [facility] [facility] Aug 12, 2024 09:30 AM [place] [facility] [place] [facility] Aug 22, 2024 09:00 AM [place] [facility] [facility] [facility] Sep 21, 2024 09:00 AM [place] [facility] Sep 21, 2024 10:00 AM [place] [facility] Nov 09, 2024 11:30 AM [place] [facility] Nov 28, 2024 09:30 AM [place] [facility] [facility] [place] [facility] Lab Results: +/- 30 days [...] Range Comment Jun 01, 2024 12:25 PM [facility] MICROALBUMIN CREATININE RATIO PANEL Specimen Type: URINE No comment entered. Ordering Provider: LINDA PERSON Report Released Date/Time: Jun 01, 2024 11:53 AM Reporting Lab: [facility] [address] [facility] [address] Performing Lab: [facility] [address] [facility] [address] MICROALBUMIN/C REATININE RATIO 10.8 mg/g 0-29.9 MICROALBUMIN,Q UANTITATIVE 1.1 mg/dL RR UNAVAIL CREATININE URINE 101.63 mg/dL Jun 01, 2024 10:38 AM [facility] HEMOGLOBIN A1C PANEL Specimen Type: [...] May 30, 2024 10:29 AM Reporting Lab: [address] [address] Performing Lab: [address] [address] HEMOGLOBIN A1C 5.8 H 4.0-5.6 Jun 01, 2024 10:38 AM [facility] BASIC METABOLIC PANEL (non-fasting) Specimen Type: SERUM No comment entered. Ordering Provider: LINDA PERSON Report Released Date/Time: May 30, 2024 10:29 AM Reporting Lab: [address] [address] Performing Lab: [address] [address] UREA NITROGEN 13 mg/dL 7-25 GLUCOSE 115 mg/dL H 65-100 SODIUM 140 mmol/L 135-145 POTASSIUM 4.3 mmol/L 3.5-5.0 CHLORIDE 107 mmol/L 100-110 CO2 21 meq/L 20-30 CREATININE, Serum 0.84 mg/dL 0.50-1.40 eGFR(CKD-EPI 2020) >90 mL/min >60 Jun 01, 2024 10:38 AM [facility] LIPID PANEL, NON FASTING Specimen Type: SERUM No comment entered. Ordering Provider: LINDA PERSON Report Released Date/Time: Jun 01, 2024 10:12 AM Reporting Lab: [address] [address] Performing Lab: [address] [address] CHOLESTEROL 126 mg/dL TRIGLYCERIDE 114 mg/dL 0-150 [...] 27, 2023 11:00 AM VA-TOBACCO FOR[facility] Tobacco Use History This section includes a history of the smoking, or tobacco-related health factors, that were collected on or before the date of the Encounter. The data comes from the [place] facility where the Encounter took place. Date/Time Smoking Status/Tobac co Use Comment Facility Nov 27, 2023 11:00 AM VA-TOBACCO QUIT 15 YRS OR MORE [place] [facility] [place] [facility] Dec 02, 2022 08:00 AM VA-TOBACCO FORMER USER [place] [facility] [place] [facility] Dec 02, 2022 08:00 AM VA-TOBACCO QUIT 15 YRS OR MORE [place] [facility] [facility] Nov 05, 2021 10:30 AM VA-TOBACCO FORMER USER [place] [facility] [place] [facility] Nov 05, 2021 10:30 AM VA-TOBACCO QUIT 1 TO < 5 YRS [place] [facility] [place] [facility] Sep 14, 2020 02:00 PM VA-TOBACCO FORMER USER [place] [facility] [place] [facility] Sep 14, 2020 02:00 PM VA-TOBACCO QUIT 5 TO < 15 YRS [place] [facility] [place] [facility] Jan 22, 2018 03:40 PM QUIT TOBACCO USE > 7 YEARS AGO [place] [facility] [place] [facility] Jun 04, 2016 02:01 PM CURRENT SMOKER been smoking pass 20 yrs [place] [facility] [place] [facility] Jun 04, 2016 02:01 PM V1[facility] [place] [facility] Jun 04, 2016 02:01 PM V1-PT THINKING ABOUT QUIT TOBACCO USE [place] [facility] [place] [facility] Jul 18, 2014 03:31 PM V1-PT DECLINES REF TO TOBACCO CESS PRGM [place] [facility] [place] [facility] Jul 18, 2014 03:31 PM [...] DATE: MAY 30, 2024@08:57:50 AUTHOR: THANH LUCAS EXP COSIGNER: URGENCY: STATUS: COMPLETED Patient Name: CHAYA PEDRO Patient SSN: [id number] Date and time of Appointment No show [...] 09/21/2024 10:00 CWM/NO/OPTOMETRY/MERHAR /es/ THANH LUCAS Advanced Retail Presentation Specialist Signed: 05/30/2024 08:58 THANH LUCAS [facility]
--- OUTSIDE RECORDS SUMMARY | 2024-12-21 11:58 | XMS_ITS | Encounter Summary ---
Author Name [facility] Organization [facility] [facility] [place] Address [address] [place] [address] Care Team Providers Care Stone Circular Sawyer Name Role Phone ELIZABET ROBINS Primary Care [...] Paul [facility] CE ORGANIZAT ION ARIA [facility] Apr 18, 2018 [id number] WILLISEDILBERTO SPOUSE ANTHEM [place] ([place]ARD) [facility] CE ORGANIZAT ION M[facility] Apr 18, 2018 [id number] [phone] WILLIS,EDILBERTO SOTELOZA SPOUSE BCBS [facility] CE ORGANIZ [facility] SHARE ACTIV E Apr 18, 2018 [phone] WILLIS,EDILBERTO SOTELOZA SPOUSE BCBS OF [facility] CE ORGANIZAT ION ARIA [facility] Apr 18, 2018 [id number] [phone] WILLIS,MAR JUDITH PATIENT BCBS OF [facility] CE ORGANIZAT ION [facility] Apr 18, 2018 [id number] WILLIS,MAR JUDITH SPOUSE [place] OF [place] PREFERRED PROVIDER ORGANIZAT ION (PPO) BR[facility]DA [facility] AC Apr 18, 2018 [id number] [phone] WILLIS,MAR JUDITH SPOUSE BCBS OF [facility] CE ORGANIZAT ION [facility] ACT Apr 18, 2018 [id number] WILLIS,MAR JUDITH SPOUSE BCBS OF [facility] CE ORGANIZ [facility] AC Apr 18, 2018 [id number] [phone] WILLIS,MAR JUDITH SPOUSE [place] PRESCRIPT ION BRENDA [facility] Oct 19, 2022 [phone] WILLIS,MAR JUDITH SPOUSE [place] PRESCRIPT ION RX22M A Oct 19, 2022 RX22MA [id number] WILLIS,LAVELLE AEL PATIENT [place] PRESCRIPT ION RX22M B Oct 19, 2022 RX22MB [id number] WILLIS,LAVELLE AEL PATIENT [place] PRESCRIPT ION [place] Oct 19, 2022 [id number] WILLIS, SPOUSE [place]EMARK PRESCRIPT ION BRENDA [facility] AC Oct 19, 2022 [id number] [phone] WILLIS,LAVELLE AEL SPOUSE [place] PRESCRIPT ION RX Oct 19, 2022 RX22MC [id number] [phone] WILLIS,MAR JUDITH SPOUSE [place] ([id number]) PRESCRIPT I[place] Oct 19, 2022 [phone] WILLIS,MAR JUDITH SPOUSE [place] BC[place] ([facility] CE ORGANIZAT ION [facility] RSD AC Apr 18, 2018 [id number] WILLISEDILBERTO SPOUSE [employer] ([id number]) PRESCRIPT ION Apr 18, 2018 L4TA [id number] WILLISEDILBERTO SPOUSE [employer] ([id number]) PRESCRIPT ION L4TA Apr 18, 2018 L4TA [id number] WILLIS,EDILBERTO WONG SPOUSE [employer] ([id number]) PRESCRIPT ION L4TA* Apr 18, 2018 L4TA [id number] WILLISEDILBERTO SPOUSE [employer] ([id number]) PRESCRIPT ION Apr 18, 2018 L4TA [id number] WILLISEDILBERTO Lynn SPOUSE [employer]-MINOR BROGATION PRESCRIPT ION [place] Apr 18, 2020 L4TA [id number] [phone] WILLIS,EDILBERTO WONG SPOUSE [facility] ([facility]) [facility] CE ORGANIZAT ION W/OUT OF NETWORK BENEFITS [facility] RSD ACT Apr 18, 2018 [id number] EDILBERTO PEDRO SPOUSE [facility] ([facility]) [facility] CE ORGANIZAT ION [facility] RSD AC Apr 18, 2018 [id number] EDILBERTO PEDRO SPOUSE MEDICARE (WN) MEDICARE () PART A Mar 19, 1990 PART A [id number] [phone] WILLISLAVELLE AEL PATIENT MEDICARE (WNR) MEDICARE () PART A Mar 19, 1990 PART A [id number] WILLISLAVELLE AEL PATIENT MEDICARE (WNR) MEDICARE () PART A Mar 19, 1990 PART A [id number] WILLIS,LAVELLE AEL PATIENT MEDICARE (WNR) MEDICARE () PART A Mar 19, 1990 PART A [id number] WILLIS,LAVELLE AEL PATIENT MEDICARE (WNR) MEDICARE (M) PART A Mar 19, 1990 PART A [id number] WILLIS,LAVELLE AEL PATIENT MEDICARE (WNR) MEDICARE (M) PART A Mar 19, 1990 PART A [id number] [phone] WILLIS,LAVELLE AEL PATIENT MEDICARE (WNR) MEDICARE (M) PART A Mar 19, 1990 PART A [id number] WILLIS,LAVELLE AEL PATIENT MEDICARE (WNR) MEDICARE (M) PART A Mar 19, 1990 PART A [id number] [phone] WILLIS,LAVELLE AEL PATIENT MEDICARE (WNR) MEDICARE (M) PART A Mar 19, 1990 PART A [id number] [phone] WILLIS,LAVELLE AEL PATIENT MEDICARE (WNR) MEDICARE (M) PART A Mar 19, 1990 PART A [id number] WILLIS,LAVELLE AEL PATIENT MEDICARE (WNR) MEDICARE (M) PART A Mar 19, 1990 PART A [id number] WILLIS,LAVELLE AEL PATIENT Selected Encounter This section includes the information on record at [place] for the Encounter. Date/Time Encounter Type Encounter Description Reason Provider Source Nov 28, 2024 09:30 AM OFF/OP CNSLTJ NEW/EST LOW 30 PODIATRY ICD-10-CM M20.10 Hallux valgus (acquired), unspecified foot NORBERTO CONNORS DPM [facility] Encounter Template Text not used by [place] Assessments - Encounter Diagnoses This section includes the primary and secondary diagnoses documented for the Encounter. Date/Time Primary/Secondary Diagnosis Diagnosis Name Provider Source Nov 28, 2024 10:09 AM PRIMARY Hallux valgus (acquired), unspecified foot NORBERTO CONNORS DPM [facility] [place] [facility] Nov 28, 2024 10:09 AM SECONDARY Other hammer toe(s) (acquired), unspecified foot NORBERTO CONNORS DPM [facility] [place] [facility] Plan of Treatment: Future Appointments (+ 6 months) and Future Tests (+/- 45 days) The Plan of Treatment section includes future care activities for the [facility] [place] [facility] This section includes future appointments and [...] 02, 2024 08:30 AM AMBULATORY - MEDICINE [facility] N[facility]L [facility] Dec 15, 2024 10:30 AM AMBULATORY MEDICINE [facility] [place] [place] [facility] Dec 16, 2024 10:20 AM AMBULATORY MEDICINE [facility] Mar 20, 2025 09:00 AM [facility] Active, Pending, and Scheduled Orders This section includes a listing of several types of active, pending, and scheduled orders, including clinic medications orders, diagnostic test orders, procedure orders and consult orders; where the start date of the order is 45 days before the date of the Encounter or 45 days after the date of theEncounter. The data comes from all [facility]. 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 Cons Clinical Unit Educator's Choice [facility] Dec 20, 2024 11:49 AM Consult Order COMMUNITY CARE-NEUROLOGY [facility] Clinical Unit Educator's [facility] Social History: Smoking Status (Most current) and [...] 27, 2023 11:00 AM VA-TOBACCO FOR[facility]ER [facility] Tobacco Use History This section includes a history of the smoking, or tobacco-related health factors, that were collected on or before the date of the Encounter. The data comes from the [place] facility where the Encounter took place. Date/Time Smoking Status/Tobac co Use Comment Facility Nov 27, 2023 11:00 AM VA-TOBACCO QUIT 15 YRS OR MORE [facility] [place] [facility] Dec 02, 2022 08:00 AM VA-TOBACCO FORMER USER [place] CNTR [place] [facility] Dec 02, 2022 08:00 AM VA-TOBACCO QUIT 15 YRS OR MORE [facility] Nov 05, 2021 10:30 AM VA-TOBACCO [facility] [place] [place] [facility] Nov 05, 2021 10:30 AM VA-TOBACCO QUIT 1 TO < 5 YRS [facility] [place] [facility] Sep 14, 2020 02:00 PM VA-TOBACCO FORMER USER [facility] Sep 14, 2020 02:00 PM VA-TOBACCO QUIT 5 TO < 15 YRS [facility] [place] [facility] Jan 22, 2018 03:40 PM QUIT TOBACCO USE > [facility] [place] [facility] Jun 04, 2016 02:01 PM CURRENT SMOKER been smoking pass 20 [facility] [place] [facility] Jun 04, 2016 02:01 PM V1-PT DECLINES REF TO TOBACCO [facility]ESS [facility] Jun 04, 2016 02:01 PM V1-PT THINKING ABOUT QUIT TOBACCO USE [facility] [place] [facility] Jul 18, 2014 03:31 PM V1-PT DECLINES REF TO TOBACCO CESS [facility] Jul 18, 2014 03:31 PM V1-PT DECLINES TOBACCO CESSATION MEDS [facility] [place] [facility] Jul 18, 2014 03:31 PM V1-PT NOT INTERESTED IN QUIT TOBACCO USE [facility] [place] [facility] Jan 09, 2014 10:43 AM CURRENT SMOKER pt smokes 1 pk of cigarettes per day. [facility] [place] [place] [facility] Jan 09, 2014 10:43 AM V1-PT THINKING ABOUT QUIT TOBACCO USE [facility] [place] [facility] Aug 28, 2003 10:47 AM CURRENT SMOKER one pack q 6 days - he has cut down from 3 PPD. He is in the process of quitting [facility] [place] [facility] Encounter Notes: All associated encounter notes This section contains the clinical notes associated to the Encounter. Date/Time Encounter Note(s) Provider Source Nov 28, 2024 09:35 AM PODIATRY CONSULT: LOCAL TITLE: CONSULT REPORT/PODIATRY STANDARD TITLE: PODIATRY CONSULT DATE OF NOTE: NOV 28, 2024@09:35 ENTRY DATE: NOV 28, 2024@09:35:28 AUTHOR: NORBERTO CONNORS DPM EXP COSIGNER: URGENCY: STATUS: COMPLETED HPI: The patient is a 69 year old MALE w/ diabetes whom presents to the clinic c/o pain in right big toe intermittently. Pt has 2nd toe overlapping the big toe and at times side of nail gets painful from pressure. Pt has been using the gel toe spacer in between the big toe and 2nd toe. Spacer helps. Pt denies pain today. Wears slippers at home. PMH: Reviewed Active problems - Computerized Problem List is the source for the followin. Seizure disorder 2. Peripheral neuropathy due to type 2 diabetes mellitus 3. Seasonal allergic rhinitis 4. Nonalcoholic steatohepatitis 5. History of substance abuse 6. Obesity 7. Diabetes mellitus type 2 8. Elevated liver enzymes level 9. Sleep apnea 10. Hypertension 11. Chronic post-traumatic stress disorder following combat 12. 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 Diverticulosis 14. Galeas's esophagus 15. Rosacea 16. Deep venous thrombosis of upper extremity 17. Nephrolithiasis 18. Hyperlipidemia 19. Lower urinary tract symptoms due to benign prostatic hypertrophy (SNOMED CT 20. Family history of prostate cancer 21. Schizoaffective disorder (SNOMED CT 11576624) 22. Alcohol dependence (SNOMED CT 84077820) 23. Periodontal Disease NEC 24. GERD 25. Facial paraesthesia 26. REFRACTION DISORDER NOS PSH/HOSPITALIZATIONS: non-contributory MEDICATIONS: Active Outpatient Medications (including Supplies): Active Outpatient [...] 1 PAD TOPICALLY TWICE A WEEK NEEDED ACTIVE TO CLEAN SKIN FOR INJECTION ETC 5) AMLODIPINE BESYLATE 5MG TAB TAKE ONE TABLET BY MOUTH ONCE ACTIVE DAILY FOR BLOOD PRESSURE/HEART, DO NOT TAKE WITH GRAPEFRUIT JUICE 6) ATORVASTATIN CALCIUM 80MG TAB TAKE ONE-HALF TABLET BY MOUTH ACTIVE AT BEDTIME FOR CHOLESTEROL Indication: FOR HIGH CHOLESTEROL 7) EYELID CLEANSER,EYE SCRUB PAD USE 1 PAD TOPICALLY ONCE DAILY ACTIVE NEEDED Indication: DRY EYE 8) FAMOTIDINE 20MG TAB TAKE ONE TABLET BY MOUTH DAILY FOR ACTIVE STOMACH ACID 9) HYDROXYZINE HCL 25MG TAB TAKE ONE TABLET BY MOUTH AT BEDTIME ACTIVE NEEDED Indication: FOR ANXIETY AND SLEEP 10) KETOTIFEN 0.025% OPH SOLN INSTILL 1 DROP INTO EACH EYE TWICE ACTIVE DAILY NEEDED (IF YOU WEAR CONTACT LENSES, WAIT 10 MINUTES BEFORE INSERTING LENSES) Indication: FOR ALLERGIC CONJUNCTIVITIS 11) LEVOCETIRIZINE DIHYDROCHLORIDE 5MG TAB TAKE ONE TABLET BY ACTIVE MOUTH EVERY EVENING Indication: FOR ALLERGIES 12) METFORMIN HCL 1000MG TAB TAKE ONE TABLET BY MOUTH TWICE ACTIVE DAILY FOR DIABETES 13) METRONIDAZOLE 0.75% TOP GEL APPLY MODERATE AMOUNT TOPICALLY ACTIVE TWICE DAILY Indication: FOR ACNE ROSACEA 14) NYSTATIN 692616 UNT/GM CREAM APPLY A THIN LAYER TOPICALLY ACTIVE TWICE DAILY Indication: FOR FUNGAL INFECTION 15) ONDANSETRON 4MG ORAL DISINTEGRATING TAB PLACE ONE TABLET ON ACTIVE THE TONGUE EVERY 8 HOURS NEEDED (ALLOW TABLET TO DISSOLVE ON TONGUE, AND SWALLOW WITH SALIVA) Indication: FOR NAUSEA AND VOMITING 16) PANTOPRAZOLE NA 40MG EC TAB TAKE ONE TABLET BY MOUTH EVERY ACTIVE MORNING 30 MINUTES BEFORE BREAKFAST Indication: FOR EXCESSIVE PRODUCTION OF STOMACH ACID 17) PEG 400 0.4%/PROP GLYCOL 0.3% OPH SOLN INSTILL 1 DROP INTO ACTIVE EACH EYE FOUR TIMES DAILY NEEDED Indication: DRY EYE 18) PHENOBARBITAL 32.4MG TAB TAKE ONE TABLET BY MOUTH TWICE ACTIVE DAILY 19) SILDENAFIL CITRATE 50MG TAB TAKE ONE TABLET BY MOUTH ONCE ACTIVE (S) DAILY TAKE 1 HOUR PRIOR TO SEXUAL ACTIVITY Indication: FOR ERECTILE DYSFUNCTION Active Non-VA Medications Status 1) Non-VA MULTIVITAMIN/MINERALS CAP/TAB ONE CAP/TAB BY MOUTH ACTIVE ONCE DAILY 2) Non-VA OTHER CAP/TAB THC BY MOUTH TWICE DAILY ACTIVE Indication: epilepsy 21 Total Medications ALLERGIES: AKWA TEARS, DIFLUCAN, PHENYTOIN, FLUOROMETHOLONE, REFRESH TEARS, OXYCODONE LEVETIRACETAM SH: Occupation: retired : [employer] [place] , lives w/ . Grand-daughter (12 yo) lives w/ them. 4 children, 7 grandchildren Tobacco: No. Quit 25 yrs ago. Alcohol: No. Quit 25 yrs ago. Recreational drugs: Denies Exercise: Everyday - weights, stay busy w/ house chores FH: non-contributory Pertinent ROS: as noted above Height 66 in [167.6 cm] (06/28/2024 11:41) Weight 214 lb [97.07 kg] (06/28/2024 11:41) BMI: 34.6 PHYSICAL EXAMINATION: VASC: DP/PT 2/4 b/l. CFT x 10 immediate. + digital hair. Skin temperature cool to warm from distal to proximal. No edema. NEURO: Protective sensation intact 10/10 b/l with Semme-Linette 5.07 monofilament. Vibratory sensation intact distally b/l. Intact proprioception b/l. DERM: Skin TTT wnl. No open lesion or webspace maceration. No HPK. MSK: Muscle strength 5/5 for all 4 groups tested. + bony eminence of 1st MTPJ R>>L w/ hallux abductus. Hallux b/l tracking. L hallux w/ mild abduction. R hallux under-rides 2nd digit. 1st MTPJ ROM b/l painfree w/o crepitus, and wnl. Hammertoe deformities b/l. ASSESSMENT: HAV Hammertoes IFG PAVE 1 - low risk foot TREATMENT/PLAN: - Initial exam and evaluation. - Continue w/ toe spacer. Recommend gel toe spacer w/ double loop for R foot and single for L to slow progression. - D/w pt importance of well-fitting shoes. Instructed the patient to pay close attention to the style and fit of shoes. Avoid shoes w/ pointy toebox. No further follow-up is indicated at this time. RTC prn if trauma or specific Podiatric concern/issue. I discussed the findings and plan with the patient. I educated the patient about the foot condition/issue. The patient verbalized understanding of the plan and education. I performed medication reconciliation within the scope of my practice. All medications related to Podiatry are up to date. /gaetano/ NORBERTO CONNORS DPM UX ENGINEER Signed: 11/28/2024 12:39 NORBERTO CONNORS DPM [place] [facility]
--- OUTSIDE RECORDS SUMMARY | 2024-12-21 11:58 | XMS_ITS | Encounter Summary ---
Author Name [facility] [place] Organization [place] Address [address] [place] [address] Care Team Providers Care Auto Body Service Mechanic Name Role Phone ELIZABET ROBINS Primary [...] [facility] CE ORGANIZAT ION [facility]IA [facility] AC Apr 18, 2018 [id number] [phone] WILLISEDILBERTO LynnZA SPOUSE ANTHEM [place] OF [place] ([place] HEALTH MAINTENAN CE ORGANIZAT ION MIIA [facility] Apr 18, 2018 [id number] WILLIS,EDILBERTO SOTELOZA SPOUSE BCBS [facility] CE ORGANIZ [facility] SHARE ACTIV E Apr 18, 2018 [id number] [phone] WILLIS,MAR JUDITH SPOUSE BCBS OF [facility] CE ORGANIZAT ION MIIA [facility] Apr 18, 2018 [id number] WILLIS,MAR JUDITH PATIENT BCBS OF [facility] CE ORGANIZAT ION BRENDA MCCABE RSD Apr 18, 2018 [id number] WILLIS,MAR JUDITH SPOUSE BC[place] OF [place] PREFERRED PROVIDER ORGANIZAT ION (PPO) BRENDA [facility] RSD AC Apr 18, 2018 [id number] [phone] WILLIS,MAR JUDITH SPOUSE BCBS OF [facility] CE ORGANIZAT ION BRENDA MCCABE RSD ACT Apr 18, 2018 [id number] WILLIS,EDILBERTO JUDITH SPOUSE BCBS OF [facility] CE ORGANIZ BRENDA MCCAEB RSD AC Apr 18, 2018 [id number] WILLIS,MAR JUDITH SPOUSE [place] PRESCRIPT ION BCBS OF [place] Oct 19, 2022 [id number] WILLIS, SPOUSE [place] PRESCRIPT ION RX22M A Oct 19, 2022 RX22MA [id number] WILLIS,LAVELLE AEL PATIENT [place] PRESCRIPT ION RX22M B Oct 19, 2022 RX22MB [id number] WILLIS,LAVELLE AEL PATIENT [place] PRESCRIPT ION BRENDA MCCABE RSD AC Oct 19, 2022 RX22MB [id number] [phone] WILLIS,LAVELLE AEL SPOUSE [place] PRESCRIPT ION [facility] Oct 19, 2022 RX22MB [id number] [phone] WILLIS,MAR JUDITH SPOUSE [place] PRESCRIPT ION RX Oct 19, 2022 RX22MC [id number] [phone] WILLIS,MAR JUDITH SPOUSE [place] ([id number]) PRESCRIPT I[place] Oct 19, 2022 RX22MB [id number] [phone] WILLIS,MAR JUDITH SPOUSE [place] BCBS ([facility] CE ORGANIZAT ION [facility] RSD AC Apr 18, 2018 [id number] WILLISEDILBERTO SPOUSE [employer] ([id number]) PRESCRIPT ION Apr 18, 2018 L4TA [id number] WILLISEDILBERTO SPOUSE [employer] ([id number]) PRESCRIPT ION L4TA* Apr 18, 2018 L4TA [id number] WILLISEDILBERTO SPOUSE [employer] ([id number]) PRESCRIPT ION L4TA Apr 18, 2018 L4TA [id number] WILLIS,EDILBERTO WONG SPOUSE [employer] ([id number]) PRESCRIPT ION Apr 18, 2018 L4TA [id number] WILLISEDILBERTO SPOUSE EXPRESS SCRIPTS-MINOR BROGATION PRESCRIPT I[place] Apr 18, 2020 L4TA [id number] [id number] [phone] WILLIS,EDILBERTO WONG SPOUSE [employer] ([facility]) [facility] CE ORGANIZAT ION W/OUT OF NETWORK BENEFITS [facility] RSD ACT Apr 18, 2018 [id number] [phone] EDILBERTO PEDRO SPOUSE [facility]IG[facility] CE ORGANIZAT ION [facility] RSD AC Apr 18, 2018 [id number] [phone] WILLISEDILBERTO SPOUSE MEDICARE (WNR) MEDICARE () PART A Mar 19, 1990 PART A [id number] WILLISLAVELLE AEL PATIENT MEDICARE (WN) MEDICARE () PART A Mar 19, 1990 PART A [id number] WILLIS,LAVELLE AEL PATIENT MEDICARE (WNR) MEDICARE () PART A Mar 19, 1990 PART A [id number] WILLIS,LAVELLE AEL PATIENT MEDICARE (WNR) MEDICARE () PART A Mar 19, 1990 PART A [id number] WILLIS,LAVELLE AEL PATIENT MEDICARE (WNR) MEDICARE (M) PART A Mar 19, 1990 PART A [id number] WILLIS,LAVELLE AEL PATIENT MEDICARE (WNR) MEDICARE (M) PART A Mar 19, 1990 PART A [id number] WILLIS,LAVELLE AEL PATIENT MEDICARE (WNR) MEDICARE (M) PART A Mar 19, 1990 PART A [id number] [phone] WILLIS,LAVELLE AEL PATIENT MEDICARE (WNR) MEDICARE (M) PART A Mar 19, 1990 PART A [id number] [phone] WILLIS,LAVELLE AEL PATIENT MEDICARE (WNR) MEDICARE (M) PART A Mar 19, 1990 PART A [id number] WILLIS,LAVELLE AEL PATIENT MEDICARE (WNR) MEDICARE (M) PART A Mar 19, 1990 PART A [id number] WILLIS,LAVELLE AEL PATIENT MEDICARE (WNR) MEDICARE (M) PART A Mar 19, 1990 PART A [id number] WILLIS,LAVELLE AEL PATIENT Selected Encounter This section includes the information on record at [place] for the Encounter. Date/Time Encounter Type Encounter Description Reason Pro vider Source Feb 09, 2024 02:42 PM Outpatient Encounter ADMIN PAT ACTIVTIES (MASNONCT) IHE Encounter Template Text not used by AR Plan of Treatment: Future Appointments (+ 6 months) and Future Tests (+/- 45 days) The Plan of Treatment section includes future care activities for the patient from all AR treatmentfacilities. This section includes future appointments and future orders which are active, pending or scheduled. Future Appointments This section includes appointments that were scheduled to occur 6 months from the date of the Encounter, up to a maximum of 20 appointments. The data comes from all AR treatment facilities. Appointment Date/Time Appointment Type Appointme nt Facility Name February 17, 2024 12:00 PM AMBULATORY - MEDICINE [facility] Mar 28, 2024 10:00 AM AMBULATORY - NONE [facility] Mar 28, 2024 10:30 AM AMBULATORY - MEDICINE [place] [facility] [facility] Mar 28, 2024 01:00 PM AMBULATORY - MEDICINE [place] [facility] [facility] Apr 06, 2024 01:30 PM AMBULATORY - MEDICINE [place] [facility] [facility] May 30, 2024 08:30 AM AMBULATORY - MEDICINE [facility] [facility] May 30, 2024 09:30 AM AMBULATORY - MEDICINE [facility] [place] [facility] Jun 01, 2024 10:00 AM AMBULATORY - MEDICINE [facility] [place] [facility] Jun 01, 2024 11:30 AM AMBULATORY - MEDICINE [facility] [place] [facility] Jun 28, 2024 11:30 AM AMBULATORY - MEDICINE [place] C [facility] [place] [facility] Jul 08, 2024 10:30 AM AMBULATORY - MEDICINE [place] C [facility] [place] [facility] Jul 13, 2024 09:30 AM AMBULATORY - MEDICINE AR C [facility] [place] [facility] Lab Results: +/- 30 days of the encounter This section includes the Chemistry and Hematology Lab Results on record with AR for the patient. Radiology Reports and Pathology Reports are provided separately, in subsequent sections. Lab Results This section contains the Chemistry/Hematology Results that were resulted 30 days before or 30 daysafter the date of the Encounter. Date/Time Source Result Type Result - Unit Interpretation Reference Range Comment Feb 16, 2024 09:27 AM [facility] HEMOGLOBIN A1C PANEL Specimen Type: BLOOD [...] Dec 10, 2023 06:17 PM Reporting Lab: [address] [id number] Performing Lab: [address] [address] HEMOGLOBIN A1C 6.2 H 4.0-5.6 Feb 16, 2024 09:27 AM [facility] BASIC METABOLIC PANEL (non-fasting) Specimen Type: SERUM No comment entered. Ordering Provider: KIMBER MACK Report Released Date/Time: Dec 10, 2023 06:17 PM Reporting Lab: [facility] [address] [address] Performing Lab: [facility] [address] [address] UREA NITROGEN 11 mg/dL 7-25 GLUCOSE 112 [...] and tobacco- related health factors from the AR facility where the Encounter took place. Current Smoking Status This section includes the most current smoking, or tobacco-related health factor, from the AR facility where the Encounter took place. Date/Time Current Smoking Status Comment Enrique shannon Nov 27, 2023 11:00 AM AR-TOBACCO QUIT 15 YRS OR MORE [facility] Tobacco Use History This section includes a history of the smoking, or tobacco-related health factors, that were collected on or before the date of the Encounter. The data comes from the AR facility where the Encounter took place. Date/Time Smoking Status/Tobac co Use Comment Facility Nov 27, 2023 11:00 AM AR-TOBACCO QUIT 15 YRS OR MORE [place] [facility] [place] [facility] Dec 02, 2022 08:00 AM [facility] [place] [facility] Dec 02, 2022 08:00 AM VA-TOBACCO QUIT 15 YRS OR MORE [facility] Nov 05, 2021 10:30 AM [facility]AC[facility] Nov 05, 2021 10:30 AM VA-TOBACCO QUIT 1 TO < 5 YRS [facility] Sep 14, 2020 02:00 PM VA-TOBACCO FORMER USER [facility] Sep 14, 2020 02:00 PM VA-TOBACCO QUIT 5 TO < 15 YRS [facility] Jan 22, 2018 03:40 PM QUIT TOBACCO USE > 7 YEARS AGO [facility] Jun 04, 2016 02:01 PM CURRENT SMOKER been smoking pass 20 yrs [facility] Jun 04, 2016 02:01 PM V1-PT DECLINES REF TO TOBACCO CESS PRGM [facility] Jun 04, 2016 02:01 PM V1-PT THINKING ABOUT QUIT TOBACCO USE [facility] Jul 18, 2014 03:31 PM V1-PT DECLINES REF TO TOBACCO CESS PRGM [facility] Jul 18, 2014 03:31 PM V1-PT DECLINES TOBACCO CESSATION MEDS [facility] Jul 18, 2014 03:31 PM V1-PT NOT INTERESTED IN QUIT TOBACCO USE [facility] Jan 09, 2014 10:43 AM CURRENT SMOKER pt smokes 1 pk of cigarettes per day. [facility] Jan 09, 2014 10:43 AM V1-PT THINKING ABOUT QUIT TOBACCO USE [facility] Aug 28, 2003 10:47 AM CURRENT SMOKER one pack q 6 days - he has cut down from 3 PPD. He is in the process of quitting [facility] Encounter Notes: All associated encounter notes This section contains the clinical notes associated to the Encounter. Date/Time Encounter Note(s) Provider Source Feb 09, 2024 02:42 PM PHARMACY NOTE: LOCAL TITLE: V1 PHARMACY CUSTOMER CARE MEDICATION RENEWAL STANDARD TITLE: PHARMACY NOTE DATE OF NOTE: FEB 09, 2024@14:42 ENTRY DATE: FEB 09, 2024@14:43:03 AUTHOR: JUDY LAMAR COSIGNER: URGENCY: STATUS: COMPLETED Date: Jan Division: [place] Pt referred by Pharmacy Call Center for medication renewal: Non-controlled/maintenanc e medication Medications requested: [id number] METFORMIN HCL 1000MG TAB Defer to specialty clinic To be mailed . Please review and renew if appropriate. *This note was generated by [facility]/[place] [facility] Customer Care. If you have any questions or need assistance, do not contact this author. Please refer all questions to your local, on-site pharmacy departments. /gaetano/ JUDY LAMAR Cardiopulmonary Physical Therapist, [place]/Pharmacy Customer Care Signed: 02/09/2024 14:43 Receipt Acknowledged By: 02/16/2024 13:11 /gaetano/ KIMBER MACK MD STAFF PHYSICIAN JUDY LAMAR [place] [facility]
--- OUTSIDE RECORDS SUMMARY | 2024-12-21 11:58 | XMS_ITS | Encounter Summary ---
Author Name Department of [place] Organization [place] Address [address] [place] [address] Care Team Providers Care Competitive Intelligence Analyst Name Role Phone ELIZABET ROBINS Primary [...] to Policy Paul [facility] CE ORGANIZAT ION [facility] AC Apr 18, 2018 [id number] [phone] WILLISEDILBERTOZA SPOUSE ANTHEM [place] HEALTH MAIN[place]NA[place] CE ORGANIZAT ION [facility]A [facility] Apr 18, 2018 [id number] [phone] WILLIS,EDILBERTO SOTELOZA SPOUSE BCBS [facility] CE ORGANIZ [facility] SHARE ACTIV E Apr 18, 2018 [id number] WILLIS,MAR JUDITH SPOUSE BCBS OF [facility] CE ORGANIZAT ION MIIA [facility] Apr 18, 2018 [id number] [phone] WILLIS,MAR JUDITH PATIENT BCBS OF [facility] CE ORGANIZAT ION BRENDA MCCABE [facility] Apr 18, 2018 [id number] WILLIS,MAR JUDITH SPOUSE [place] OF [place] PREFERRED PROVIDER ORGANIZAT ION (PPO) BRENDA [facility] AC Apr 18, 2018 [id number] WILLIS,MAR JUDITH SPOUSE BCBS OF [facility] CE ORGANIZAT ION BRENDA MCCABE [facility] ACT Apr 18, 2018 [id number] WILLIS,MAR JUDITH SPOUSE BCBS OF [facility] CE ORGANIZ BRENDA [facility] AC Apr 18, 2018 [id number] [phone] WILLIS,MAR JUDITH SPOUSE [place] PRESCRIPT ION RX Oct 19, 2022 RX22MC [id number] [phone] WILLIS,MAR JUDITH SPOUSE [place] PRESCRIPT ION RX22M A Oct 19, 2022 RX22MA [id number] WILLIS,LAVELLE AEL PATIENT CAREM[place] PRESCRIPT ION RX22M B Oct 19, 2022 RX22MB [id number] WILLIS,LAVELLE AEL PATIENT [place] PRESCRIPT ION BRENDA MCCABE [facility] AC Oct 19, 2022 RX22MB [id number] [phone] WILLIS,LAVELLE AEL SPOUSE [place] PRESCRIPT ION [place] Oct 19, 2022 RX22MA [id number] WILLIS, SPOUSE CAREMARK PRESCRIPT ION [facility] Oct 19, 2022 RX22MB [id number] [phone] WILLIS,MAR JUDITH SPOUSE [place] ([id number]) PRESCRIPT ION [place] Oct 19, 2022 RX22MB [id number] [phone] WILLIS,MAR JUDITH SPOUSE [place] BCBS ([facility] CE ORGANIZAT ION [facility] RSD AC Apr 18, 2018 [id number] WILLISEDILBERTO SPOUSE [employer] ([id number]) PRESCRIPT ION Apr 18, 2018 L4TA [id number] WILLISEDILBERTO SPOUSE [employer] ([id number]) PRESCRIPT ION Apr 18, 2018 L4TA [id number] WILLISEDILBERTO SPOUSE [employer] ([id number]) PRESCRIPT ION L4TA* Apr 18, 2018 L4TA [id number] WILLISEDILBERTO SPOUSE [employer] ([id number]) PRESCRIPT ION L4TA Apr 18, 2018 L4TA [id number] WILLISEDILBERTO Lynn SPOUSE [employer]-MINOR BROGATION PRESCRIPT ION [place] OF [place] Apr 18, 2020 L4TA [id number] WILLISEDILBERTO SPOUSE [facility] [facility] [facility] CE ORGANIZAT ION W/OUT OF NETWORK BENEFITS [facility] RSD ACT Apr 18, 2018 [id number] [phone] EDILBERTO PEDRO SPOUSE [facility] CE ORGANIZAT ION [facility] RSD AC Apr 18, 2018 [id number] [phone] EDILBERTO PEDRO SPOUSE MEDICARE (WNR) MEDICARE () PART A Mar 19, 1990 PART A [id number] [phone] 4 WILLISLAVELLE AEL PATIENT MEDICARE (WN) MEDICARE () PART A Mar 19, 1990 PART A [id number] [phone] WILLIS,LAVELLE AEL PATIENT MEDICARE (WNR) MEDICARE () PART A Mar 19, 1990 PART A [id number] [phone] [id number] WILLIS,LAVELLE AEL PATIENT MEDICARE (WNR) MEDICARE () PART A Mar 19, 1990 PART A [id number] [phone] WILLIS,LAVELLE AEL PATIENT MEDICARE (WNR) MEDICARE (M) PART A Mar 19, 1990 PART A [id number] WILLIS,LAVELLE AEL PATIENT MEDICARE (WNR) MEDICARE (M) PART A Mar 19, 1990 PART A [id number] [phone] WILLIS,LAVELLE AEL PATIENT MEDICARE (WNR) MEDICARE (M) PART A Mar 19, 1990 PART A [id number] [phone] [id number] WILLIS,LAVELLE AEL PATIENT MEDICARE (WNR) MEDICARE (M) PART A Mar 19, 1990 PART A [id number] WILLIS,LAVELLE AEL PATIENT MEDICARE (WNR) MEDICARE (M) PART A Mar 19, 1990 PART A [id number] WILLIS,LAVELLE AEL PATIENT MEDICARE (WNR) MEDICARE (M) PART A Mar 19, 1990 PART A [id number] WILLIS,LAVELLE AEL PATIENT MEDICARE (WNR) MEDICARE (M) PART A Mar 19, 1990 PART A [id number] WILLIS,LAVELLE AEL PATIENT Selected Encounter This section includes the information on record at [place] for the Encounter. Date/Time Encounter Type Encounter Description Reason Provider Source Dec 15, 2024 10:30 AM UNLISTED SPEC DERM SVC/PX DERMATOLOGY ICD-10-CM Z13.89 Encounter for screening for other disorder ROBER ALVAREZ [facility] Encounter Template Text not used by [place] Assessments - Encounter Diagnoses This section includes the primary and secondary diagnoses documented for the Encounter. Date/Time Primary/Secondary Diagnosis Diagnosis Name Provider Source Dec 15, 2024 10:52 AM PRIMARY Encounter for screening for other disorder ROBER ALVAREZ [place] [facility] [facility] Plan of Treatment: Future Appointments (+ 6 [...] 16, 2024 10:20 AM AMBULATORY - MEDICINE [place] C [facility] [facility] Mar 20, 2025 09:00 AM AMBULATORY - MEDICINE SD C [facility] [place] [facility] Active, Pending, and Scheduled Orders This section includes a listing of several types of active, pending, and scheduled orders, including clinic medications orders, diagnostic test orders, procedure orders and consult orders; where the start date of the order is 45 days before the date of the Encounter or 45 days after the date of theEncounter. The data comes from all [place] treatment facilities. 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 The data comes from the [place] facility where the Encounter took place. Date/Time Smoking Status/Tobac co Use Comment Facility Dec 02, 2024 08:30 AM VA-TOBACCO NEVER USED OTHER TYPE [place] CNTR[facility] [place] [facility] Nov 27, 2023 11:00 AM VA-TOBACCO FORMER USER VA [facility] [place] [facility] Nov 27, 2023 11:00 AM VA-TOBACCO QUIT 15 YRS OR MORE [facility] [place] [facility] Dec 02, 2022 08:00 AM VA-TOBACCO FORMER USER [facility] Dec 02, 2022 08:00 AM VA-TOBACCO QUIT 15 YRS OR [facility] Nov 05, 2021 10:30 AM VA-TOBACCO [facility] Nov 05, 2021 10:30 AM VA-TOBACCO QUIT 1 TO < 5 YRS [facility] Sep 14, 2020 02:00 PM VA-TOBACCO FOR[facility] Sep 14, 2020 02:00 PM VA-TOBACCO QUIT 5 TO < 15 YRS [facility] Jan 22, 2018 03:40 PM QUIT TOBACCO USE > 7 YEARS AGO [facility] Jun 04, 2016 02:01 PM CURRENT SMOKER been smoking pass 20 yrs [facility] Jun 04, 2016 02:01 PM V1-PT DECLINES REF TO TOBACCO CESS PRGM [facility] Jun 04, 2016 02:01 PM V1-PT THINKING ABOUT QUIT TOBACCO USE [facility] Jul 18, 2014 03:31 PM V1-PT DECLINES REF TO TOBACCO CESS PRGM [facility] Jul 18, 2014 03:31 PM V1-PT DECLINES TOBACCO CESSATION MEDS [facility] Jul 18, 2014 03:31 PM V1-PT NOT INTERESTED IN QUIT TOBACCO USE [facility] Jan 09, 2014 10:43 AM CURRENT SMOKER pt smokes 1 pk of cigarettes per day. [facility] Jan 09, 2014 10:43 AM V1-PT THINKING ABOUT QUIT TOBACCO USE [facility] Aug 28, 2003 10:47 AM CURRENT SMOKER one pack q 6 days - he has cut down from 3 PPD. He is in the process of quitting [facility] Encounter Notes: All associated encounter notes This section contains the clinical notes associated to the Encounter. Date/Time Encounter Note(s) Provider Source Dec 17, 2024 10:42 AM TELEHEALTH NOTE: LOCAL TITLE: PATIENT NOTIFICATION TELEHEALTH RESULTS STANDARD TITLE: TELEHEALTH NOTE DATE OF NOTE: DEC 17, 2024@10:42 ENTRY DATE: DEC 17, 2024@10:42:37 AUTHOR: ROBER ALVAREZ EXP COSIGNER: URGENCY: STATUS: COMPLETED Provided below are the results from pts telederm imaging reading. Ordering Provider is responsible to give pt the results and prescribe any treatments, recommendations or consult to dermatology for a face to face etc. REMOTE RESULTS ERNESTINE Document from: [facility] Associated on: Dec 15, 2024@13:06:54 LOCAL TITLE: CONSULT-TELEDERMATOLOGY IMAGING REPORT STANDARD TITLE: [...] [facility] PA-C DERMATOLOGY CLINIC Signed: 12/15/2024 13:06 * END OF REMOTE RESULTS /gaetano/ ROBER ALVAREZ TELEHEALTH CLINICAL WET WASH ASSEMBLER Signed: 12/17/2024 10:47 Receipt Acknowledged By: 12/18/2024 10:22 /es/ CIERRA GREGORY Nurse Practitioner ROBER ALVAREZ [place] [facility] [place] [facility] Dec 15, 2024 10:20 AM TELEHEALTH CONSULT : LOCAL TITLE: CONSULT REPORT/TELEDERMATOLOGY IMAGING REQUEST STANDARD TITLE: TELEHEALTH CONSULT DATE OF NOTE: DEC 15, 2024@10:20 ENTRY DATE: DEC 15, 2024@10:20:56 AUTHOR: ROBER ALVAREZ EXP COSIGNER: URGENCY: STATUS: COMPLETED Teledermatology Consult Request The patient was educated regarding the Teledermatology process at this encounter. Comment: Patient educated on telederm process and verbalizes understanding Patient DOES consent to have images taken, viewed, and interpreted using the Teledermatology process. This consult addresses: A new condition Images were acquired: In clinic HISTORY: Prior skin history: None reported Have you had a skin cancer before? None Reported Family melanoma history: Sibling brother Taking new med/supplements: None reported Immunosuppression history: None reported Other significant history: None reported Chief Complaint: Right axilla with small flash colored itchy bumps trying nystatin Also with Mid chest lesion likely nevus also would like lesions on bilateral hands imaged PROBLEM A LOCATION(S): Trunk Right Axilla DURATION: 1 month SYMPTOMS: Burning, Itch CHANGES: None, Other TREATMENT: Yes Details: The ointment PCP gave helps but doesn't go away BIOPSY: No PROBLEM B: LOCATION(S): Upper Extremity Right hand DURATION: about a year SYMPTOMS: Bleeding History, Burning, Itch, Pain, Redness running hands underwater very painful 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 CHANGES: Size bigger TREATMENT: No BIOPSY: No PROBLEM C: LOCATION(S): Upper Extremity Left hand DURATION: about 6 months ago SYMPTOMS: Bleeding History, Burning, Itch, Pain, Redness CHANGES: Size bigger TREATMENT: No BIOPSY: No PROBLEM D: LOCATION(S): Trunk Chest DURATION: 10 years SYMPTOMS: Pain CHANGES: Size bigger even bigger then when imaged in [facility] 3 years ago TREATMENT: No BIOPSY: No Photographic Developer And Printer's comments: Imaged per providers direction and facility protocol /gaetano/ ROBER ALVAREZ [employer] Signed: 12/15/2024 10:53 ROBER ALVAREZ CNTRL [facility]
--- OUTSIDE RECORDS SUMMARY | 2024-12-21 11:58 | XMS_ITS | Encounter Summary ---
Author Name [facility] [place] [facility] [place] Organization [facility] [place] [facility] [place] Address [address] [place] [address] Care Team Providers Care Regional Recruiter Name Role Phone ELIZABET ROBINS Primary Care [...] Paul [facility] CE ORGANIZAT ION [facility] AC Apr 18, 2018 [id number] [phone] WILLIS,EDILBERTO SOTELOZA SPOUSE ANTHEM BCBS OF [place] (BLUECARD) HEALTH MAINTENAN CE ORGANIZAT ION MIIA [address] Apr 18, 2018 [id number] [phone] WILLIS,MAR JUDITH SPOUSE BCBS [facility] MAINTENAN CE ORGANIZ [facility] SHARE ACTIV E Apr 18, 2018 [id number] WILLIS,MAR JUDITH SPOUSE BCBS OF [facility] MAINTENAN CE ORGANIZAT ION MIIA [facility] Apr 18, 2018 [id number] WILLIS,MAR JUDITH PATIENT BCBS OF [facility] CE ORGANIZAT ION BRENDA MCCABE [facility] Apr 18, 2018 [id number] WILLIS,MAR JUDITH SPOUSE [place] OF [place] PREFERRED PROVIDER ORGANIZAT ION (PPO) [facility] AC Apr 18, 2018 [id number] WILLIS,MAR JUDITH SPOUSE BCBS OF [facility] CE ORGANIZAT ION BRENDA MCCABE [facility] ACT Apr 18, 2018 [id number] WILLIS,MAR JUDITH SPOUSE BCBS OF [facility] CE ORGANIZ [facility]DA [facility] AC Apr 18, 2018 [id number] [phone] WILLIS,MAR JUDITH SPOUSE [place] PRESCRIPT ION [facility] Oct 19, 2022 [id number] WILLIS,MAR JUDITH SPOUSE [place] PRESCRIPT ION RX22M A Oct 19, 2022 [id number] WILLIS,LAVELLE AEL PATIENT [place] PRESCRIPT ION RX22M B Oct 19, 2022 [id number] WILLIS,LAVELLE AEL PATIENT [place] PRESCRIPT ION [place] Oct 19, 2022 [id number] WILLIS, SPOUSE [place] PRESCRIPT ION BRENDA MCCABE [facility] AC Oct 19, 2022 [id number] [phone] WILLIS,LAVELLE AEL SPOUSE [place] PRESCRIPT ION RX Oct 19, 2022 [id number] [phone] WILLIS,MAR JUDITH SPOUSE [place] ([id number]) PRESCRIPT ION [place] Oct 19, 2022 [id number] [phone] WILLIS,MAR JUDITH SPOUSE [place] BC[place] ([facility] CE ORGANIZAT ION [facility] AC Apr 18, 2018 [phone] WILLISEDILBERTO SPOUSE [employer] ([id number]) PRESCRIPT ION Apr 18, 2018 L4TA [id number] WILLISEDILBERTO SPOUSE [employer] ([id number]) PRESCRIPT ION L4TA Apr 18, 2018 L4TA [id number] WILLIS,EDILBERTO WOGN SPOUSE [employer] ([id number]) PRESCRIPT ION L4TA* Apr 18, 2018 L4TA [id number] WILLISEDILBERTO SPOUSE [employer] ([id number]) PRESCRIPT ION Apr 18, 2018 L4TA [id number] WILLISEDILBERTO Lynn SPOUSE [employer] PRESCRIPT ION [place] Apr 18, 2020 L4TA [id number] [phone] WILLIS,EDILBERTO WONG SPOUSE [place] [facility] ([facility] CE ORGANIZAT ION W/OUT OF NETWORK BENEFITS [facility] ACT Apr 18, 2018 [phone] EDILBERTO PEDRO SPOUSE [facility] CE ORGANIZAT ION [facility] AC Apr 18, 2018 [id number] [phone] EDILBERTO PEDRO SPOUSE MEDICARE (WNR) MEDICARE () PART A Mar 19, 1990 PART A [id number] WILLISLAVELLE AEL PATIENT MEDICARE (WNR) MEDICARE () PART A Mar 19, 1990 PART A [id number] WILLIS,LAVELLE AEL PATIENT MEDICARE (WNR) MEDICARE () PART A Mar 19, 1990 PART A [id number] WILLIS,LAVELLE AEL PATIENT MEDICARE (WNR) MEDICARE () PART A Mar 19, 1990 PART A [id number] WILLIS,LAVELLE AEL PATIENT MEDICARE (WNR) MEDICARE (M) PART A Mar 19, 1990 PART A [id number] WILLIS,LAVELLE AEL PATIENT MEDICARE (WNR) MEDICARE (M) PART A Mar 19, 1990 PART A [id number] WILLIS,LAVELLE AEL PATIENT MEDICARE (WNR) MEDICARE (M) PART A Mar 19, 1990 PART A [id number] WILLIS,LAVELLE AEL PATIENT MEDICARE (WNR) MEDICARE (M) PART A Mar 19, 1990 PART A [id number] WILLIS,LAVELLE AEL PATIENT MEDICARE (WNR) MEDICARE (M) PART A Mar 19, 1990 PART A [id number] [phone] WILLIS,LAVELLE AEL PATIENT MEDICARE (WNR) MEDICARE (M) PART A Mar 19, 1990 PART A [id number] WILLIS,LAVELLE AEL PATIENT MEDICARE (WNR) MEDICARE (M) PART A Mar 19, 1990 PART A [id number] [phone] WILLIS,LAVELLE AEL PATIENT Selected Encounter This section includes the information on record at [place] for the Encounter. Date/Time Encounter Type Encounter Description Reason Provider Source Jun 22, 2024 07:06 AM PROGRAM INTAKE ASSESSMENT CAREGIVER SUPPORT PROGRAM ICD-10-CM Z74.1 Need for assistance with personal care KAYLEE WHITAKER [facility] Encounter Template Text not used by [place] Assessments - Encounter Diagnoses This section includes the primary and secondary diagnoses documented for the Encounter. Date/Time Primary/Secondary Diagnosis Diagnosis Name Provider Source Jun 22, 2024 01:24 PM PRIMARY Need for assistance with personal care KAYLEE WHITAKER [place] [facility] [place] [facility] Plan of [...] MEDICINE [place] [facility] [place] [facility] Jul 08, 2024 10:30 AM AMBULATORY - MEDICINE [facility] [place] [facility] Jul 13, 2024 09:30 AM AMBULATORY - MEDICINE [place] [facility] [place] [facility] Aug 12, 2024 09:30 AM AMBULATORY - MEDICINE [facility] [place] [facility] Aug 22, 2024 09:00 AM AMBULATORY - MEDICINE [facility] [place] [facility] Sep 21, 2024 09:00 AM AMBULATORY - MEDICINE [facility] [place] [facility] Sep 21, 2024 10:00 AM AMBULATORY - MEDICINE [facility] [place] [facility] Nov 09, 2024 11:30 AM AMBULATORY - MEDICINE [facility] [place] [facility] Nov 28, 2024 09:30 AM AMBULATORY - MEDICINE [facility] [place] [facility] Dec 02, 2024 08:30 AM AMBULATORY - MEDICINE [facility] [place] [facility] Dec 15, 2024 10:30 AM AMBULATORY - MEDICINE [facility] [place] [facility] Dec 16, 2024 10:20 AM AMBULATORY - MEDICINE [place] [facility] [place] [facility] Lab Results: +/- 30 [...] Range Comment Jun 01, 2024 12:25 PM [place] [facility] [place] [facility] MICROALBUMIN CREATININE RATIO PANEL Specimen Type: URINE No comment entered. Ordering Provider: LINDA PERSON Report Released Date/Time: Jun 01, 2024 11:53 AM Reporting Lab: [place] [facility] [place] [address] [address] Performing Lab: [place] [facility] [address] [address] MICROALBUMIN/C REATININE RATIO 10.8 mg/g 0-29.9 MICROALBUMIN,Q UANTITATIVE 1.1 mg/dL RR UNAVAIL CREATININE URINE 101.63 mg/dL Jun 01, 2024 10:38 AM [facility] HEMOGLOBIN A1C PANEL Specimen Type: BLOOD Comment: [...] May 30, 2024 10:29 AM Reporting Lab: [address] [address] Performing Lab: [address] [address] HEMOGLOBIN A1C 5.8 H 4.0-5.6 Jun 01, 2024 10:38 AM [facility] BASIC METABOLIC PANEL (non-fasting) Specimen Type: SERUM No comment entered. Ordering Provider: LINDA PERSON Report Released Date/Time: May 30, 2024 10:29 AM Reporting Lab: [address] [address] Performing Lab: [address] [address] UREA NITROGEN 13 mg/dL 7-25 GLUCOSE 115 mg/dL H 65-100 SODIUM 140 mmol/L 135-145 POTASSIUM 4.3 mmol/L 3.5-5.0 CHLORIDE 107 mmol/L 100-110 CO2 21 meq/L 20-30 CREATININE, Serum 0.84 mg/dL 0.50-1.40 eGFR(CKD-EPI 2020) >90 mL/min >60 Jun 01, 2024 10:38 AM [facility] LIPID PANEL, NON FASTING Specimen Type: SERUM No comment entered. Ordering Provider: LINDA PERSON Report Released Date/Time: Jun 01, 2024 10:12 AM Reporting Lab: [place] [facility] [place] [facility] [address] [facility] [address] Performing Lab: [place] [facility] [place] [facility] [address] [facility] [address] CHOLESTEROL 126 mg/dL TRIGLYCERIDE 114 mg/dL 0-150 [...] place. Date/Time Current Smoking Status Comment [facility] Nov 27, 2023 11:00 AM VA-TOBACCO FORMER USER [place] [facility] [place] [facility] Tobacco Use History This section includes a history of the smoking, or tobacco-related health factors, that were collected on or before the date of the Encounter. The data comes from the [place] facility where the Encounter took place. Date/Time Smoking Status/Tobac co Use Comment Facility Nov 27, 2023 11:00 AM VA-TOBACCO QUIT 15 YRS OR MORE [place] [facility] [place] [facility] Dec 02, 2022 08:00 AM VA-TOBACCO FORMER USER [facility] [place] [facility] Dec 02, 2022 08:00 AM VA-TOBACCO QUIT 15 YRS OR MORE [place] [facility] [place] [facility] Nov 05, 2021 10:30 AM VA-TOBACCO FORMER USER [facility] [place] [facility] Nov 05, 2021 10:30 AM VA-TOBACCO QUIT 1 TO < 5 YRS [facility] [place] [facility] Sep 14, 2020 02:00 PM VA-TOBACCO FORMER USER [facility] [place] [facility] Sep 14, 2020 02:00 PM VA-TOBACCO QUIT 5 TO < 15 YRS [facility] [place] [facility] Jan 22, 2018 03:40 PM QUIT TOBACCO USE > 7 YEARS AGO [facility] [place] [facility] Jun 04, 2016 02:01 PM CURRENT SMOKER been smoking pass 20 yrs [facility] [place] [facility] Jun 04, 2016 02:01 PM V1-PT DECLINES REF TO TOBACCO CESS PRGM [facility] Jun 04, 2016 02:01 PM V1-PT THINKING ABOUT QUIT TOBACCO USE [facility] Jul 18, 2014 03:31 PM V1-PT DECLINES REF TO TOBACCO CESS PRGM [facility] Jul 18, 2014 03:31 PM V1-PT DECLINES TOBACCO CESSATION MEDS [facility] Jul 18, 2014 03:31 PM V1-PT NOT INTERESTED IN QUIT TOBACCO USE [facility] Jan 09, 2014 10:43 AM CURRENT SMOKER pt smokes 1 pk of cigarettes per day. [facility] Jan 09, 2014 10:43 AM V1-PT THINKING ABOUT QUIT TOBACCO USE [facility] Aug 28, 2003 10:47 AM CURRENT SMOKER one pack q 6 days - he has cut down from 3 PPD. He is in the process of quitting [facility] Encounter Notes: All associated encounter notes This section contains the clinical notes associated to the Encounter. Date/Time Encounter Note(s) Provider Source Jun 23, 2024 12:22 PM ADDENDUM: LOCAL TITLE: Addendum STANDARD TITLE: ADDENDUM DATE OF NOTE: JUN 23, 2024@12:22:10 ENTRY DATE: JUN 23, 2024@12:22:12 AUTHOR: KAYLEE WHITAKER EXP COSIGNER: URGENCY: STATUS: COMPLETED [place] functional assessment conducted as part of the application process for [facility] Program of Comprehensive Assistance for Family Caregivers. During assessment it was noted that CG assists [place] with putting on socks - [place] reports he used to have a sock suzette which made it easier and would like replacement if PCP in agreement. /gaetano/ KAYLEE WHITAKER RN Signed: 06/23/2024 12:23 Receipt Acknowledged By: 06/23/2024 12:46 /es/ CIERRA GREGORY Nurse Practitioner 06/23/2024 15:42 /gaetano/ DEBBIE GORMAN, ELZBIETA, RN, CNL PRIMARY CARE TEAM NURSE === --- Original Document --- 06/22/24 [facility] FUNCTIONAL ASSESSMENT INSTRUMENT CONSULT: FUNCTIONAL ASSESSMENT [...] piece of the overall application process. The [place] Functional Assessment Instrument (VFAI) captures the or financial service professional's functional needs, as they relate to the [...] Visit: Patient location during visit: Home [address], [place] [address] Others present for visit with patient's consent: [...] is placed before the person. Comments/additional information: [place] reports CG cuts up his meat. CG [...] he places dentures in and she cleans. [place] reports he is able to brush his own bottom teeth (2b) Wash upper body: Person does not usually do this activity Defined as: The ability to wash, rinse, and dry the face, hands, chest, and arms while sitting in a chair or bed. Comments/additional information: [place] takes baths BATHING (3) Shower/bathe self: Independent [...] above the waist, including fasteners (if applicable). [place] picks out his own clothes. He reports hx L shoulder dislocation which makes it hard to put on/take off shirts. CG may assist with bottom buttons. If she's not here I wear the same clothes (4b) Lower body dressing: Supervision or touching assistance Defined as: The ability to dress and undress below the waist, including fasteners; does not include footwear. [place] reports poor balance and history of falls. CG assists with putting on/taking off underwear and pants. [place] leans on CG and it's like a [...] Would like replacement Comments/additional information: Plese see [facility] Primary Care Collaboration note 06/03/24. [place] has occasional unsteady gait and h/s falls but none recently TOILETING (5) Toileting hygiene: Person requires assistance only sometimes Defined as: The ability to maintain perineal/menstrual hygiene and adjust clothes before and after voiding or having a bowel movement. If managing an ostomy, include wiping the opening but not managing equipment. Comments/additional information: [place] reports urine accidents over the past year [...] belts, lacing at back, etc.). Comments/additional information: [place] has no prosthetic items MOBILITY (POSITIONING/TRANSFERS) (7a) [...] on the side of the bed. (7e) Chair/mdv-pl-upcoe transfer: Person does not usually do this activity Defined as: The ability to transfer to and from a bed to a chair (or wheelchair). (7f) Toilet transfer: Independent Defined as: The ability to get on and off a toilet or commode. Comments/additional information: [place] reports he is independent with toilet and chair transfers. Reports needing assistance getting in/out of bed. On medical record review, has occasional unsteady gait and h/o falls but none recent. See PCP Primary Care Collaboration note 06/03/23. There is no indication [place] needs asisstance with mobilty on a regular [...] escort to transport him via w/c to [facility]. Most of the time I lean on [...] four steps with or without a rail. [place] reports there are 2 steps between home and garage - reports he is able to navigate, leans on CG (9g) 12 steps: Independent Defined as: The ability to go up and down 12 steps with or without a rail. reports there is a flight of stairs to home basement which he doesn't typically access (9h) Picking up object: Independent Defined as: The ability to bend/stoop from a standing position to pick up operator a small object, such as a spoon, [...] street before light turns red. Comments/additional information: [place] reports history of flashing in his eye, wears different colored glasses, sleeps with light on. Please see [facility]RAF[facility] PATENT outpatient note 06/01/24. denies dizziness, falls, MENDOZA [...] environment or a potentially harmful situation? Independent [place] is able to use a phone to [...] in. CG reports she is comfortable leaving Yeimi alone for part of the day but [...] person does not need help going anywhere. Yeimi does not drive. CG drives him to [employer], waits in waiting room for him Comments/additional information: reports the reason he and CG applied to [facility] is due to his history [...] record review there is nothing to suggest [place] is incapable of self-direction Total time for assessment 45 min /es/ KAYLEE WHITAKER RN Signed: 06/22/2024 13:24 KAYLEE WHITAKER [place] [facility] [place] [facility] Jun 22, 2024 07:07 AM CAREGIVER CERTIFIC ATE: LOCAL TITLE: [facility] FUNCTIONAL ASSESSMENT INSTRUMENT STANDARD TITLE: CAREGIVER CERTIFICATE DATE OF NOTE: JUN 22, 2024@07:07 ENTRY DATE: JUN 22, 2024@07:07:09 AUTHOR: KAYLEE WHITAKER EXP COSIGNER: URGENCY: STATUS: COMPLETED [facility] FUNCTIONAL ASSESSMENT INSTRUMENT CONSULT Has ADDENDA [...] supervision without which the ability of the [place] to function in daily life would be seriously impaired. Assessment of the need for personal care services is just one piece of the overall application process. The Functional Assessment Instrument (VFAI) captures the or financial service professional's functional needs, as they relate to the [...] Visit: [facility] during visit[facility] [address] [place], [place] [address] Others present for visit with patient's consent: [...] is placed before the person. Comments/additional information: [place] reports CG cuts up his meat. CG [...] he places dentures in and she cleans. [place] reports he is able to brush his own bottom teeth (2b) Wash upper body: Person does not usually do this activity Defined as: The ability to wash, rinse, and dry the face, hands, chest, and arms while sitting in a chair or bed. Comments/additional information: [place] takes baths BATHING (3) Shower/bathe self: Independent [...] above the waist, including fasteners (if applicable). [place] picks out his own clothes. He reports hx L shoulder dislocation which makes it hard to put on/take off shirts. CG may assist with bottom buttons. If she's not here I wear the same clothes (4b) Lower body dressing: Supervision or touching assistance Defined as: The ability to dress and undress below the waist, including fasteners; does not include footwear. [place] reports poor balance and history of falls. CG assists with putting on/taking off underwear and pants. leans on CG and it's like a [...] slippers himself. CG assists with socks - [place] reports he used to have a sock suzette which made it easier. Would like replacement Comments/additional information: Plese see [facility] Primary Care Collaboration note 06/03/24. has [...] belts, lacing at back, etc.). Comments/additional information: [place] has no prosthetic items MOBILITY (POSITIONING/TRANSFERS) (7a) [...] on the side of the bed. (7e) Chair/qiv-oz-linnb transfer: Person does not usually do this activity Defined as: The ability to transfer to and from a bed to a chair (or wheelchair). (7f) Toilet transfer: Independent Defined as: The ability to get on and off a toilet or commode. Comments/additional information: reports he is independent with toilet and chair transfers. Reports needing assistance getting in/out of bed. On medical record review, has occasional unsteady gait and h/o falls but none recent. See PCP Primary Care Collaboration note 06/03/23. There is no indication [place] needs asisstance with mobilty on a regular [...] escort to transport him via w/c to [facility]. Most of the time I lean on [...] four steps with or without a rail. [place] reports there are 2 steps between home and garage - reports he is able to navigate, leans on CG (9g) 12 steps: Independent Defined as: The ability to go up and down 12 steps with or without a rail. reports there is a flight of stairs to home basement which he doesn't typically access (9h) Picking up object: Independent Defined as: The ability to bend/stoop from a standing position to pick up operator a small object, such as a spoon, [...] glasses, sleeps with light on. Please see [facility] PAT[facility] outpatient note 06/01/24. denies dizziness, falls, MENDOZA [...] medications in pill box and from there Yeimi takes meds independently SELF-PRESERVATION AND SUPERVISION (2) Does the person have the judgment and physical ability to cope, make appropriate decisions and take action in a changing environment or a potentially harmful situation? Independent Yeimi is able to use a phone to [...] in. CG reports she is comfortable leaving Yeimi alone for part of the day but [...] does not drive. CG drives him to [employer], waits in waiting room for him Comments/additional information: reports the reason he and CG applied to [facility] is due to his history [...] record review there is nothing to suggest [place] is incapable of self-direction Total time for assessment 45 min /jerry WHITAKER RN Signed: 06/22/2024 13:24 06/23/2024 ADDENDUM STATUS: COMPLETED functional assessment conducted as part of the application process for [facility] Program of Comprehensive Assistance for Family Caregivers. During assessment it was noted that CG assists with putting on socks - [place] reports he used to have a sock suzette which made it easier and would like replacement if PCP in agreement. /jerry WHITAKER RN Signed: 06/23/2024 12:23 Receipt Acknowledged By: * AWAITING SIGNATURE * ELIZABET ROBINS * AWAITING SIGNATURE * DEBBIE GORMAN EILEEN [facility]
--- OUTSIDE RECORDS SUMMARY | 2024-12-21 11:58 | XMS_ITS | Encounter Summary ---
Author Name [facility] [facility] [place] Address [address] [place] [address] Care Team Providers Care Shear Grinder Operator Helper Name Role Phone ELIZABET ROBINS Primary Care [...] Policy Paul [facility] CE ORGANIZAT ION [facility] Apr 18, 2018 [id number] [phone] WILLIS,EDILBERTO SOTELOZA SPOUSE [place] [facility] CE ORGANIZAT ION MIIA [facility] Apr 18, 2018 [phone] WILLIS,MAR JUDITH SPOUSE BCBS [facility] CE ORGANIZ [facility] E Apr 18, 2018 [id number] [phone] WILLIS,MAR JUDITH SPOUSE BCBS [facility] CE ORGANIZAT ION MIIA [facility] Apr 18, 2018 [id number] WILLIS,MAR JUDITH PATIENT BCBS OF [facility] CE ORGANIZAT ION [facility] Apr 18, 2018 [id number] WILLIS,MAR JUDITH SPOUSE [place] OF [place] PREFERRED PROVIDER ORGANIZAT ION (PPO) [facility] AC Apr 18, 2018 [id number] WILLIS,MAR JUDITH SPOUSE BCBS OF [facility] CE ORGANIZAT ION [facility] ACT Apr 18, 2018 [id number] WILLIS,MAR JUDITH SPOUSE BCBS OF [facility] CE ORGANIZ [facility] AC Apr 18, 2018 [id number] [phone] WILLIS,MAR JUDITH SPOUSE [place] PRESCRIPT ION RX Oct 19, 2022 [id number] WILLIS,MAR JUDITH SPOUSE [place] PRESCRIPT ION RX22M A Oct 19, 2022 [id number] WILLIS,LAVELLE AEL PATIENT [place] PRESCRIPT ION RX22M B Oct 19, 2022 [id number] WILLIS,LAVELLE AEL PATIENT [place] PRESCRIPT ION [facility]DA [facility] AC Oct 19, 2022 [id number] [phone] WILLIS,LAVELLE AEL SPOUSE [place] PRESCRIPT ION [place] Oct 19, 2022 [id number] [phone] WILLIS, SPOUSE [place] PRESCRIPT ION [facility] Oct 19, 2022 [id number] WILLIS,MAR JUDITH SPOUSE [place] ([id number]) PRESCRIPT I[place] Oct 19, 2022 [phone] WILLIS,MAR JUDITH SPOUSE [place] ([facility] CE ORGANIZAT ION [facility] AC Apr 18, 2018 [id number] [id number] WILLISEDILBERTO SPOUSE [employer] ([id number]) PRESCRIPT ION Apr 18, 2018 L4TA [id number] WILLISEDILBERTO SPOUSE [employer] ([id number]) PRESCRIPT ION Apr 18, 2018 L4TA [id number] WILLISEDILBERTO SPOUSE [employer] ([id number]) PRESCRIPT ION L4TA* Apr 18, 2018 L4TA [id number] WILLISEDILBERTO SPOUSE [employer] ([id number]) PRESCRIPT ION L4TA Apr 18, 2018 L4TA [id number] [id number] WILLISEDILBERTO Lynn SPOUSE [employer]-MINOR BROGATION PRESCRIPT ION [place] Apr 18, 2020 L4TA [id number] WILLISEDILBERTO SPOUSE [facility] [facility] CE ORGANIZAT ION W/OUT OF NETWORK BENEFITS [facility] R[facility] ACT Apr 18, 2018 [id number] [phone] EDILBERTO PEDRO SPOUSE [facility] ([facility]) [facility] CE ORGANIZAT ION [facility] AC Apr 18, 2018 [id number] WILLISEDILBERTO SPOUSE MEDICARE (WNR) MEDICARE () PART A Mar 19, 1990 PART A [id number] WILLISLAVELLE AEL PATIENT MEDICARE (WNR) MEDICARE () PART A Mar 19, 1990 PART A [id number] WILLIS,LAVELLE AEL PATIENT MEDICARE (WNR) MEDICARE () PART A Mar 19, 1990 PART A [id number] [phone] WILLIS,LAVELLE AEL PATIENT MEDICARE (WNR) MEDICARE () PART A Mar 19, 1990 PART A [id number] WILLIS,LAVELLE AEL PATIENT MEDICARE (WNR) MEDICARE (M) PART A Mar 19, 1990 PART A [id number] WILLIS,LAVELLE AEL PATIENT MEDICARE (WNR) MEDICARE (M) PART A Mar 19, 1990 PART A [id number] WILLIS,LAVELLE AEL PATIENT MEDICARE (WNR) MEDICARE (M) PART A Mar 19, 1990 PART A [id number] [phone] WILLIS,LAVELLE AEL PATIENT MEDICARE (WNR) MEDICARE (M) PART A Mar 19, 1990 PART A [id number] WILLIS,LAVELLE AEL PATIENT MEDICARE (WNR) MEDICARE (M) PART A Mar 19, 1990 PART A [id number] WILLIS,LAVELLE AEL PATIENT MEDICARE (WNR) MEDICARE (M) PART A Mar 19, 1990 PART A [id number] WILLIS,LAVELLE AEL PATIENT MEDICARE (WNR) MEDICARE (M) PART A Mar 19, 1990 PART A [id number] WILLIS,LAVELLE AEL PATIENT Selected Encounter This section includes the information on record at [place] for the Encounter. Date/Time Encounter Type Encounter Description Reason Pro vider Source May 30, 2024 09:30 AM Outpatient Encounter CLINICAL PHARMACY IHE Encounter Template Text not used by [place] Plan of Treatment: Future Appointments (+ 6 months) and Future Tests (+/- 45 days) The Plan of Treatment section includes future care activities for the [facility] [place] [facility] This section includes future appointments and [...] 01, 2024 10:00 AM AMBULATORY - MEDICINE [facility] [place] [facility] Jun 01, 2024 11:30 AM AMBULATORY - MEDICINE [facility] [place] [facility] Jun 28, 2024 11:30 AM AMBULATORY - MEDICINE [facility] [place] [facility] Jul 08, 2024 10:30 AM AMBULATORY - MEDICINE [place] C [facility] [place] [facility] Jul 13, 2024 09:30 AM AMBULATORY - MEDICINE [place] C [facility] [place] [facility] Aug 12, 2024 09:30 AM AMBULATORY - MEDICINE [place] C [facility] [place] [facility] Aug 22, 2024 09:00 AM AMBULATORY - MEDICINE [place] C [facility] [place] [facility] Sep 21, 2024 09:00 AM AMBULATORY - MEDICINE [place] C [facility] [place] [facility] Sep 21, 2024 10:00 AM AMBULATORY - MEDICINE [place] [facility] [place] [facility] Nov 09, 2024 11:30 AM AMBULATORY - MEDICINE [place] C [facility] [place] [facility] Nov 28, 2024 09:30 AM AMBULATORY - MEDICINE [place] [facility] [place] [facility] Lab Results: +/- 30 days of [...] Range Comment Jun 01, 2024 12:25 PM [facility] MICROALBUMIN CREATININE RATIO PANEL Specimen Type: URINE No comment entered. Ordering Provider: LINDA PERSON Report Released Date/Time: Jun 01, 2024 11:53 AM Reporting Lab: [address] [address] Performing Lab: [facility] [address] [facility] [address] MICROALBUMIN/C REATININE RATIO 10.8 mg/g 0-29.9 MICROALBUMIN,Q UANTITATIVE 1.1 mg/dL RR UNAVAIL CREATININE URINE 101.63 mg/dL Jun 01, 2024 10:38 AM [facility] HEMOGLOBIN A1C PANEL Specimen Type: [...] May 30, 2024 10:29 AM Reporting Lab: [address] [phone] Performing Lab: [address] [address] HEMOGLOBIN A1C 5.8 H 4.0-5.6 Jun 01, 2024 10:38 AM [facility] BASIC METABOLIC PANEL (non-fasting) Specimen Type: SERUM No comment entered. Ordering Provider: LINDA PERSON Report Released Date/Time: May 30, 2024 10:29 AM Reporting Lab: [address] [address] Performing Lab: [address] [address] UREA NITROGEN 13 mg/dL 7-25 GLUCOSE 115 mg/dL H 65-100 SODIUM 140 mmol/L 135-145 POTASSIUM 4.3 mmol/L 3.5-5.0 CHLORIDE 107 mmol/L 100-110 CO2 21 meq/L 20-30 CREATININE, Serum 0.84 mg/dL 0.50-1.40 eGFR(CKD-EPI 2020) >90 mL/min >60 Jun 01, 2024 10:38 AM [facility] LIPID PANEL, NON FASTING Specimen Type: SERUM No comment entered. Ordering Provider: LINDA PERSON Report Released Date/Time: Jun 01, 2024 10:12 AM Reporting Lab: [address] [address] Performing Lab: [address] [address] CHOLESTEROL 126 mg/dL TRIGLYCERIDE 114 mg/dL 0-150 [...] 27, 2023 11:00 AM VA-TOBACCO FORMER USER [place] [facility] Tobacco Use History This section includes a history of the smoking, or tobacco-related health factors, that were collected on or before the date of the Encounter. The data comes from the [place] facility where the Encounter took place. Date/Time Smoking Status/Tobac co Use Comment [facility] Nov 27, 2023 11:00 AM VA-TOBACCO QUIT 15 YRS OR MORE [place] [facility] [place] [facility] Dec 02, 2022 08:00 AM VA-TOBACCO FORMER USER [place] [facility] [place] [facility] Dec 02, 2022 08:00 AM VA-TOBACCO QUIT 15 YRS OR MORE [place] [facility] [place] [facility] Nov 05, 2021 10:30 AM VA-TOBACCO FORMER USER [place] [facility] [place] [facility] Nov 05, 2021 10:30 AM VA-TOBACCO QUIT 1 TO < 5 YRS [place] [facility] [place] [facility] Sep 14, 2020 02:00 PM VA-TOBACCO FORMER USER [place] [facility] [place] [facility] Sep 14, 2020 02:00 PM VA-TOBACCO QUIT 5 TO < 15 YRS [place] [facility] [place] [facility] Jan 22, 2018 03:40 PM QUIT TOBACCO USE > 7 YEARS AGO [place] [facility] [place] [facility] Jun 04, 2016 02:01 PM CURRENT SMOKER been smoking pass 20 yrs [place] [facility] [place] [facility] Jun 04, 2016 02:01 PM V1-PT DECLINES REF TO TOBACCO CESS PRGM [place] [facility] [place] [facility] Jun 04, 2016 02:01 PM V1-PT THINKING ABOUT QUIT TOBACCO USE [place] [facility] [place] [facility] Jul 18, 2014 03:31 PM V1-PT DECLINES REF TO TOBACCO CESS PRGM [place] [facility] [place] [facility] Jul 18, 2014 03:31 PM V1-PT DECLINES TOBACCO CESSATION MEDS [facility] Jul 18, 2014 03:31 PM V1-PT NOT INTERESTED IN QUIT TOBACCO USE [facility] Jan 09, 2014 10:43 AM CURRENT SMOKER pt smokes 1 pk of cigarettes per day. [facility] Jan 09, 2014 10:43 AM V1-PT THINKING ABOUT QUIT TOBACCO USE [facility] Aug 28, 2003 10:47 AM CURRENT SMOKER one pack q 6 days - he has cut down from 3 PPD. He is in the process of quitting [facility] Encounter Notes: All associated encounter notes This section contains the clinical notes associated to the Encounter. Date/Time Encounter Note(s) Provider Source May 30, 2024 10:25 AM CLERICAL NOTE: LOCAL TITLE: APPOINTMENT NO SHOW STANDARD TITLE: CLERICAL NOTE DATE OF NOTE: MAY 30, 2024@10:25 ENTRY DATE: MAY 30, 2024@10:25:58 AUTHOR: LINDA PERSON COSIGNER: URGENCY: STATUS: COMPLETED Patient Name: CHAYA PEDRO Patient SSN: [id number] Date and time of Appointment No show [...] 11:30 CWM/NO/PACT 5 09/21/2024 10:00 CWM/NO/OPTOMETRY/JAHAIRA /gaetano/ LINDA PERSON PHARMD,BCPS CLINICAL PHARMACY PRACTITIONER Signed: 05/30/2024 10:29 Receipt Acknowledged By: 05/30/2024 10:31 /gaetano/ THANH LUCAS Advanced Heat Treatment Technician [facility]DA P[facility]
--- OUTSIDE RECORDS SUMMARY | 2024-12-21 11:58 | XMS_ITS | Encounter Summary ---
Author Name [facility] [place] [facility] [place] Organization [facility] [facility] [place] Address [address] [place] [address] Care Team Providers Care Podiatrist Assistant Name Role Phone ELIZABET ROBINS Primary [...] Paul [facility] CE ORGANIZAT ION MSIA [facility] AC Apr 18, 2018 [id number] WILLISEDILBERTOZA SPOUSE ANTHEM BCBS OF [place] ([place]ARD) HEALTH MAINTENAN CE ORGANIZAT ION MIIA [facility] Apr 18, 2018 [id number] WILLIS,MAR JUDITH SPOUSE BCBS [facility] CE ORGANIZ [facility] SHARE ACTIV E Apr 18, 2018 [id number] WILLIS,MAR JUDITH SPOUSE BCBS OF [facility] CE ORGANIZAT ION MIIA [facility] Apr 18, 2018 [id number] [phone] WILLIS,MAR JUDITH PATIENT BCBS OF [facility] CE ORGANIZAT ION BRENDA [facility] Apr 18, 2018 [id number] WILLIS,MAR JUDITH SPOUSE BCBS OF [place] PREFERRED PROVIDER ORGANIZAT ION (PPO) [facility]DA [facility] AC Apr 18, 2018 [id number] WILLIS,MAR JUDITH SPOUSE BCBS OF [facility] CE ORGANIZAT ION BRENDA [facility] ACT Apr 18, 2018 [id number] WILLIS,MAR JUDITH SPOUSE BCBS OF [facility] CE ORGANIZ [facility]ENDA [facility] AC Apr 18, 2018 [id number] [phone] WILLIS,MAR JUDITH SPOUSE [place] PRESCRIPT ION RX Oct 19, 2022 [id number] WILLIS,MAR JUDITH SPOUSE [place] PRESCRIPT ION RX22M A Oct 19, 2022 [id number] WILLIS,LAVELLE AEL PATIENT [place] PRESCRIPT ION RX22M B Oct 19, 2022 [id number] WILLIS,LAVELLE AEL PATIENT [place] PRESCRIPT ION BRENDA M[facility] AC Oct 19, 2022 [id number] [phone] WILLIS,LAVELLE AEL SPOUSE [place] PRESCRIPT ION BCBS OF [place] Oct 19, 2022 [id number] WILLIS, SPOUSE [place] PRESCRIPT ION [facility] Oct 19, 2022 [id number] [phone] WILLIS,MAR JUDITH SPOUSE [place] ([id number]) PRESCRIPT ION [place] OF [place] Oct 19, 2022 [id number] [phone] WILLIS,MAR JUDITH SPOUSE [place] BC[place] ([facility] CE ORGANIZAT ION [facility] RSD AC Apr 18, 2018 [phone] EDILBERTO PEDRO SPOUSE [employer] ([id number]) PRESCRIPT ION Apr 18, 2018 L4TA [id number] WILLISEDILBERTO SPOUSE [employer] ([id number]) PRESCRIPT ION Apr 18, 2018 L4TA [id number] WILLISEDILBERTO SPOUSE [employer] ([id number]) PRESCRIPT ION L4TA* Apr 18, 2018 L4TA [id number] WILLISEDILBERTO SPOUSE [employer] ([id number]) PRESCRIPT ION L4TA Apr 18, 2018 L4TA [id number] WILLISEDILBERTO Lynn SPOUSE [employer]-MINOR [employer]OG[employer] PRESCRIPT ION BCBS OF [place] Apr 18, 2020 L4TA [id number] WILLISEDILBERTO SPOUSE [place] [employer] ([facility]) [facility] CE ORGANIZAT ION W/OUT OF NETWORK BENEFITS [facility] RSD ACT Apr 18, 2018 [id number] [phone] EDILBERTO PEDRO SPOUSE [place] [facility] (BLUECAR) [facility] CE ORGANIZAT ION [facility] R[facility] AC Apr 18, 2018 [id number] EDILBERTO PEDRO SPOUSE MEDICARE (WNR) MEDICARE () PART A Mar 19, 1990 PART A [id number] LAVELLE PEDRO AEL PATIENT MEDICARE (WNR) MEDICARE (M) PART A Mar 19, 1990 PART A [id number] LAVELLE PEDRO AEL PATIENT MEDICARE (WNR) MEDICARE (M) PART A Mar 19, 1990 PART A [id number] [phone] LAVELLE PEDRO AEL PATIENT MEDICARE (WNR) MEDICARE (M) PART A Mar 19, 1990 PART A [id number] WILLIS,LAVELLE AEL PATIENT MEDICARE (WNR) MEDICARE (M) PART A Mar 19, 1990 PART A [id number] WILLIS,LAVELLE AEL PATIENT MEDICARE (WNR) MEDICARE (M) PART A Mar 19, 1990 PART A [id number] WILLIS,LAVELLE AEL PATIENT MEDICARE (WNR) MEDICARE (M) PART A Mar 19, 1990 PART A [id number] WILLIS,LAVELLE AEL PATIENT MEDICARE (WNR) MEDICARE (M) PART A Mar 19, 1990 PART A [id number] [phone] WILLIS,LAVELLE AEL PATIENT MEDICARE (WNR) MEDICARE (M) PART A Mar 19, 1990 PART A [id number] WILLIS,LAVELLE AEL PATIENT MEDICARE (WNR) MEDICARE (M) PART A Mar 19, 1990 PART A [id number] WILLIS,LAVELLE AEL PATIENT MEDICARE (WNR) MEDICARE (M) PART A Mar 19, 1990 PART A [id number] [phone] WILLIS,LAVELLE AEL PATIENT Selected Encounter This section includes the information on record at [place] for the Encounter. Date/Time Encounter Type Encounter Description Reason Provider Source Jun 01, 2024 10:00 AM MTMS BY PHARM AWILDA 15 MIN CLINICAL PHARMACY ICD-10-CM E11.9 Type 2 diabetes mellitus without complications EMILY PERSON [facility] Encounter Template Text not used by [place] Assessments - Encounter Diagnoses This section includes the primary and secondary diagnoses documented for the Encounter. Date/Time Primary/Secondary Diagnosis Diagnosis Name Provider Source Jun 01, 2024 02:05 PM PRIMARY Type 2 diabetes mellitus without complications EMILY PERSON [facility] Plan of Treatment: Future Appointments (+ [...] 20 appointments. The data comes from all [place] treatment facilities. Appointment Date/Time Appointment Type Appointme nt Facility Name Jun 28, 2024 11:30 AM AMBULATORY - MEDICINE [place] [facility] [place] [facility] Jul 08, 2024 10:30 AM AMBULATORY - MEDICINE [place] [facility] [place] [facility] Jul 13, 2024 09:30 AM AMBULATORY - MEDICINE [place] [facility] [place] [facility] Aug 12, 2024 09:30 AM AMBULATORY - MEDICINE [place] [facility] [facility] Aug 22, 2024 09:00 AM AMBULATORY - MEDICINE CO [facility] [place] [facility] Sep 21, 2024 09:00 AM AMBULATORY - MEDICINE CO [facility] [place] [facility] Sep 21, 2024 10:00 AM AMBULATORY - MEDICINE CO [facility] [place] [facility] Nov 09, 2024 11:30 AM AMBULATORY - MEDICINE CO [facility] [place] [facility] Nov 28, 2024 09:30 AM AMBULATORY - MEDICINE CO [facility] [place] [facility] Dec 02, 2024 08:30 AM AMBULATORY - MEDICINE CO [facility] [place] [facility] Lab Results: +/- 30 days of the encounter This section includes the Chemistry and Hematology Lab Results on record with [place] for the patient. Radiology Reports and Pathology Reports are provided separately, in subsequent sections. Lab Results This section contains the Chemistry/Hematology Results that were resulted 30 days before or 30 daysafter the date of the Encounter. Date/Time Source Result Type Result - Unit Interpretation Reference Range Comment Jun 01, 2024 12:25 PM [facility] MICROALBUMIN CREATININE RATIO PANEL Specimen Type: URINE No comment entered. Ordering Provider: EMILY PERSON Report Released Date/Time: Jun 01, 2024 11:53 AM Reporting Lab: [facility] [address] [address] Performing Lab: [facility] [address] [address] MICROALBUMIN/C REATININE RATIO 10.8 mg/g 0-29.9 MICROALBUMIN,Q UANTITATIVE 1.1 mg/dL RR UNAVAIL CREATININE URINE 101.63 mg/dL Jun 01, 2024 10:38 AM [facility] HEMOGLOBIN A1C PANEL Specimen Type: BLOOD [...] May 30, 2024 10:29 AM Reporting Lab: [address] [address] Performing Lab: [address] [address] HEMOGLOBIN A1C 5.8 H 4.0-5.6 Jun 01, 2024 10:38 AM [facility] BASIC METABOLIC PANEL (non-fasting) Specimen Type: SERUM No comment entered. Ordering Provider: EMILY PERSON Report Released Date/Time: May 30, 2024 10:29 AM Reporting Lab: [address] [address] Performing Lab: [address] [address] UREA NITROGEN 13 mg/dL 7-25 GLUCOSE 115 mg/dL H 65-100 SODIUM 140 mmol/L 135-145 POTASSIUM 4.3 mmol/L 3.5-5.0 CHLORIDE 107 mmol/L 100-110 CO2 21 meq/L 20-30 CREATININE, Serum 0.84 mg/dL 0.50-1.40 eGFR(CKD-EPI 2020) >90 mL/min >60 Jun 01, 2024 10:38 AM [facility] LIPID PANEL, NON FASTING Specimen Type: SERUM No comment entered. Ordering Provider: EMILY PERSON Report Released Date/Time: Jun 01, 2024 10:12 AM Reporting Lab: [address] [address] Performing Lab: [address] [place] [address] CHOLESTEROL 126 mg/dL TRIGLYCERIDE 114 mg/dL 0-150 [...] 93 138/86 16 96 0 215 36 [facility] [place] [facility] Social History: Smoking Status (Most current) [...] took place. Date/Time Current Smoking Status Comment [facility] Nov 27, 2023 11:00 AM VA-TOBACCO FORMER USER [facility] Tobacco Use History This section includes a history of the smoking, or tobacco-related health factors, that were collected on or before the date of the Encounter. The data comes from the [place] facility where the Encounter took place. Date/Time Smoking Status/Tobac co Use Comment Facility Nov 27, 2023 11:00 AM VA-TOBACCO QUIT 15 YRS OR MORE [facility] [place] [facility] Dec 02, 2022 08:00 AM VA-TOBACCO FORMER USER CO [facility] [place] [facility] Dec 02, 2022 08:00 AM VA-TOBACCO QUIT 15 YRS OR MORE [facility] [place] [facility] Nov 05, 2021 10:30 AM VA-TOBACCO FORMER USER [place] [facility] [place] [facility] Nov 05, 2021 10:30 AM VA-TOBACCO QUIT 1 TO < 5 YRS [facility] [place] [facility] Sep 14, 2020 02:00 PM VA-TOBACCO FORMER USER [facility] [place] [facility] Sep 14, 2020 02:00 PM VA-TOBACCO QUIT 5 TO < 15 YRS [facility] [place] [facility] Jan 22, 2018 03:40 PM QUIT TOBACCO USE > 7 YEARS AGO [facility] Jun 04, 2016 02:01 PM CURRENT SMOKER been smoking pass 20 yrs [facility] Jun 04, 2016 02:01 PM V1-PT DECLINES REF TO TOBACCO CESS PRGM [facility] Jun 04, 2016 02:01 PM V1-PT THINKING ABOUT QUIT TOBACCO USE [facility] Jul 18, 2014 03:31 PM V1-PT DECLINES REF TO TOBACCO CESS PRGM [facility] Jul 18, 2014 03:31 PM V1-PT DECLINES TOBACCO CESSATION MEDS [facility] Jul 18, 2014 03:31 PM V1-PT NOT INTERESTED IN QUIT TOBACCO USE [facility] Jan 09, 2014 10:43 AM CURRENT SMOKER pt smokes 1 pk of cigarettes per day. [facility] Jan 09, 2014 10:43 AM V1-PT THINKING ABOUT QUIT TOBACCO USE [facility] Aug 28, 2003 10:47 AM CURRENT SMOKER one pack q 6 days - he has cut down from 3 PPD. He is in the process of quitting [facility] Encounter Notes: All associated encounter notes This section contains the clinical notes associated to the Encounter. Date/Time Encounter Note(s) Provider Source Jun 01, 2024 02:11 PM ADDENDUM: LOCAL TITLE: Addendum STANDARD TITLE: ADDENDUM DATE OF NOTE: JUN 01, 2024@14:11:19 ENTRY DATE: JUN 01, 2024@14:11:20 AUTHOR: EMILY PERSON EXP COSIGNER: URGENCY: STATUS: COMPLETED Please mail letter with labs to patient, thanks! /gaetano/ AB MASTD,[facility]PS CLINICAL PHARMACY PRACTITIONER Signed: 06/01/2024 14:11 Receipt Acknowledged By: 06/02/2024 08:18 /gaetano/ CARLOS RIVAS Clinical Cant Gang Sawyer --- Original Document --- 06/01/24 PATIENT LETTER (B): CHAYA PEDRO [address] [place], [place], [address] Date:JUN 01, 2024 Dear CHAYA PEDRO, Your [...] mL/min Ref: >=60 Respectfully, Emily Person PharmD, [facility]ILY [facility] Jun 01, 2024 02:05 PM ADDENDUM: LOCAL TITLE: Addendum STANDARD TITLE: ADDENDUM DATE OF NOTE: JUN 01, 2024@14:05:24 ENTRY DATE: JUN 01, 2024@14:05:25 AUTHOR: EMILY PERSON EXP COSIGNER: URGENCY: STATUS: COMPLETED Will ask AMSA to please schedule patient for: [X] CWM/NO/PHARM/PACT 3 RTC order placed. Appointment Length: _30__ minutes. 09/21/24 @0900 Thank you! /gaetano/ EMILY PERSON PHARMD,[facility] CLINICAL PHARMACY PRACTITIONER Signed: 06/01/2024 14:05 Receipt Acknowledged By: 06/01/2024 14:31 /es/ THANH LUCAS Advanced Job Placement Counselor --- Original Document --- 06/01/24 PHARMACY CLINIC [...] Chaya Pedro : 1955 ID: Information from [facility] on 06/01/2024 Patient Name: [...] 01:02 PM 115 End of information from [facility] SMBG assessment: FBG and [...] the development of this plan, involving the Hoyt, clinician, and any caregivers present. The Hoyt was provided the opportunity express questions or [...] Add or renew medication /gaetano/ EMILY PERSON PHARMD,[facility] CLINICAL PHARMACY PRACTITIONER Signed: 06/01/2024 14:05 EMILY PERSON [facility] [place] [facility] Jun 01, 2024 02:05 PM LETTERS: LOCAL TITLE: PATIENT LETTER (B) STANDARD TITLE: LETTERS DATE OF NOTE: JUN 01, 2024@14:05 ENTRY DATE: JUN 01, 2024@14:06:05 AUTHOR: EMILY PERSON COSIGNER: URGENCY: STATUS: COMPLETED PATIENT LETTER (B) Has ADDENDA CHAYA PEDRO [address] [place], [place], [address] Date:JUN 01, 2024 Dear CHAYA PEDRO, Your [...] mL/min Ref: >=60 Respectfully, Emily Person PharmD, [facility] 06/01/2024 ADDENDUM STATUS: COMPLETED Please mail letter with labs to patient, thanks! /gaetano/ EMILY PERSON PHARMD,[facility] CLINICAL PHARMACY PRACTITIONER Signed: 06/01/2024 14:11 Receipt Acknowledged By: * AWAITING SIGNATURE * CARLOS RIVAS JODI A [facility] [place] [facility] Jun 01, 2024 08:45 AM PHARMACY OUTPATIEN [...] Chaya Pedro : 1955 ID: Information from [facility] on 06/01/2024 Patient Name: Chaya Pedro Date Range: 02/17/2024 - 06/01/2024 bG values are displayed in mg/dL # of tests 12 Average 119 SD 14.8 Highest 147 Lowest 98 Avg tests/day 0.1 # HI 0 # LO 0 <70 0.0% 70-220 100.0% >220 0.0% Hypos(<69) 0 Date Range: 02/17/2024 - 06/01/2024 bG values are displayed in mg/dL 00:00- :- 08:00- :- - 17:00- 30- 30- :30 08:00 11:00 12:30 17:00 18:30 21:30 00:00 02/22/2024 117 02/23/2024 112 119 [facility] 02/24/2024 114 [facility] 03/04/2024 147 98 [facility] 03/16/2024 127 03/22/2024 100 [facility] 04/13/2024 109 [facility] 05/02/2024 133 [facility] 05/18/2024 138 [facility] 05/31/2024 115 Date Range: 02/17/2024 - 06/01/2024 bG values are displayed in mg/dL 00:00- :30- 08:00- 11:00- :30- 17:00- 18:30- :30- 05:30 08:00 11:00 12:30 [...] 01:02 PM 115 End of information from [facility] SMBG assessment: FBG [...] the development of this plan, involving the Hoyt, clinician, and any caregivers present. The Hoyt was provided the opportunity express questions or concerns, and the plan was adjusted as needed to address these concerns. -Reviewed with Hoyt any new medications, changes to the medication [...] Add or renew medication /gaetano/ EMILY PERSON PHARMD,[facility] CLINICAL PHARMACY PRACTITIONER Signed: 06/01/2024 14:05 06/01/2024 ADDENDUM STATUS: COMPLETED Will ask AMSA to please schedule patient for: [X] CWM/NO/PHARM/PACT 3 RTC order placed. Appointment Length: _30__ minutes. 09/21/24 @0900 Thank you! /jerry PERSON PHARMD,[facility] CLINICAL PHARMACY PRACTITIONER Signed: 06/01/2024 14:05 Receipt Acknowledged By: * AWAITING SIGNATURE * THANH LUCAS JODI A [facility]
--- OUTSIDE RECORDS SUMMARY | 2024-12-21 11:58 | XMS_ITS | Encounter Summary ---
Author Name [facility] [place] Address [address] [place] [address] Care Team Providers Care Landscape Contractor Name Role Phone ELIZABET ROBINS Primary Care [...] Policy Paul [facility] CE ORGANIZAT ION NDIA [facility] AC Apr 18, 2018 [id number] [phone] WILLISEDILBERTO LynnZA SPOUSE ANTHEM [place] OF [place] ([place]) HEALTH [place]INTENA[place] CE ORGANIZAT ION [facility] Apr 18, 2018 [id number] [phone] WILLIS,EDILBERTO SOTELOZA SPOUSE BCBS [facility] ORGANIZ [facility] ACTIV E Apr 18, 2018 [id number] WILLIS,MAR JUDITH SPOUSE BCBS OF [facility] CE ORGANIZAT ION MIIA [facility] Apr 18, 2018 [id number] [phone] WILLIS,MAR JUDITH PATIENT BCBS OF [facility] CE ORGANIZAT ION BRENDA MCCABE RSD Apr 18, 2018 [id number] WILLIS,MAR JUDITH SPOUSE BCBS OF [place] PREFERRED PROVIDER ORGANIZAT ION (PPO) [facility] R[facility] AC Apr 18, 2018 [id number] [id number] WILLIS,MAR JUDITH SPOUSE BCBS OF [facility] CE ORGANIZAT ION BRENDA MCC[facility] RSD ACT Apr 18, 2018 [id number] WILLIS,EDILBERTO JUDTIH SPOUSE BCBS OF [facility] CE ORGANIZ BRENDA MCCABE RSD AC Apr 18, 2018 [id number] [phone] WILILS,MAR JUDITH SPOUSE [place] PRESCRIPT ION RX Oct 19, 2022 [id number] WILLIS,MAR JUDITH SPOUSE [place] PRESCRIPT ION RX22M A Oct 19, 2022 RX22MA [id number] WILLSI,LAVELLE AEL PATIENT [place] PRESCRIPT ION RX22M B Oct 19, 2022 [id number] WILLIS,LAVELLE AEL PATIENT [place] PRESCRIPT ION [place] OF [place] Oct 19, 2022 [id number] WILLIS, SPOUSE [place] PRESCRIPT ION BRENDA [facility] Oct 19, 2022 [id number] [phone] WILLIS,MAR JUDITH SPOUSE [place] PRESCRIPT ION BRENDA M[facility] RSD AC Oct 19, 2022 [id number] [phone] WILLIS,LAVELLE AEL SPOUSE [place] ([id number]) PRESCRIPT I[place] Oct 19, 2022 [id number] [phone] WILLIS,MAR JUDITH SPOUSE [place] BC[place] ([facility] CE ORGANIZAT ION [facility] R[facility] AC Apr 18, 2018 [id number] [phone] WILLISEDILBERTO SPOUSE [employer] ([id number]) PRESCRIPT ION Apr 18, 2018 L4TA [id number] WILLISEDILBERTO SPOUSE [employer] ([id number]) PRESCRIPT ION Apr 18, 2018 L4TA [id number] WILLISEDILBERTO SPOUSE [employer] ([id number]) PRESCRIPT ION L4TA* Apr 18, 2018 L4TA [id number] WILLISEDILBERTO SPOUSE [employer] ([id number]) PRESCRIPT ION L4TA Apr 18, 2018 L4TA [id number] WILLISEDILBERTO SPOUSE [employer]-MINOR BROGATION PRESCRIPT ION [place]BS OF [place] Apr 18, 2020 L4TA [id number] WILLIS,EDILBERTO WONG SPOUSE [facility] CE ORGANIZAT ION W/OUT OF NETWORK BENEFITS [facility] RSD ACT Apr 18, 2018 [id number] [phone] EDILBERTO PEDRO SPOUSE [facility] CE ORGANIZAT ION [facility] RSD AC Apr 18, 2018 [id number] WILLISEDILBERTO SPOUSE MEDICARE (WNR) MEDICARE () PART A Mar 19, 1990 PART A [id number] WILLISLAVELLE AEL PATIENT MEDICARE (WNR) MEDICARE () PART A Mar 19, 1990 PART A [id number] WILLIS,LAVELLE AEL PATIENT MEDICARE (WNR) MEDICARE () PART A Mar 19, 1990 PART A [id number] [phone] WILLIS,LAVELLE AEL PATIENT MEDICARE (WNR) MEDICARE () PART A Mar 19, 1990 PART A [id number] WILLIS,LAVELLE AEL PATIENT MEDICARE (WNR) MEDICARE (M) PART A Mar 19, 1990 PART A [id number] WILLIS,LAVELLE AEL PATIENT MEDICARE (WNR) MEDICARE (M) PART A Mar 19, 1990 PART A [id number] WILLIS,LAVELLE AEL PATIENT MEDICARE (WNR) MEDICARE (M) PART A Mar 19, 1990 PART A [id number] [phone] WILLIS,LAVELLE AEL PATIENT MEDICARE (WNR) MEDICARE (M) PART A Mar 19, 1990 PART A [id number] WILLIS,LAVELLE AEL PATIENT MEDICARE (WNR) MEDICARE (M) PART A Mar 19, 1990 PART A [id number] [phone] WILLIS,LAVELLE AEL PATIENT MEDICARE (WNR) MEDICARE (M) PART A Mar 19, 1990 PART A [id number] WILLIS,LAEVLLE AEL PATIENT MEDICARE (WNR) MEDICARE (M) PART A Mar 19, 1990 PART A [id number] [phone] WILLIS,LAVELLE AEL PATIENT Selected Encounter This section [...] activities for the patient from all [place] treatmentfacilities. This section includes future appointments and [...] 30, 2024 08:30 AM AMBULATORY - MEDICINE [facility] May 30, 2024 09:30 AM AMBULATORY MEDICINE [facility] Jun 01, 2024 10:00 AM AMBULATORY - MEDICINE [place] [facility] [place] [facility] Jun 01, 2024 11:30 AM AMBULATORY - MEDICINE [place] [facility] [place] [place] [facility] [place] Jun 28, 2024 11:30 AM AMBULATORY - MEDICINE [place] C [facility] [place] [place] [facility] Jul 08, 2024 10:30 AM AMBULATORY - MEDICINE [place] C [facility] [place] [place] [facility] Jul 13, 2024 09:30 AM AMBULATORY - MEDICINE [place] C [facility] [place] [facility] [place] Aug 12, 2024 09:30 AM AMBULATORY - MEDICINE [place] C [facility] [place] [facility] [place] Aug 22, 2024 09:00 AM AMBULATORY - MEDICINE [place] C [facility] [place] [facility] [place] Sep 21, 2024 09:00 AM AMBULATORY - MEDICINE [place] C [facility] [place] [facility] Sep 21, 2024 10:00 AM AMBULATORY - MEDICINE [place] C [facility] [place] [facility] [place] Lab Results: +/- 30 days of the [...] Range Comment Jun 01, 2024 12:25 PM [facility] MICROALBUMIN CREATININE RATIO PANEL Specimen Type: URINE No comment entered. Ordering Provider: LINDA PERSON Report Released Date/Time: Jun 01, 2024 11:53 AM Reporting [facility] [place] [facility] [address] [facility] [address] Performing Lab: [facility] [address] [facility] [address] MICROALBUMIN/C REATININE RATIO 10.8 mg/g 0-29.9 MICROALBUMIN,Q UANTITATIVE 1.1 mg/dL RR UNAVAIL CREATININE URINE 101.63 mg/dL Jun 01, 2024 10:38 AM [facility] WSN [facility] HEMOGLOBIN A1C PANEL Specimen [...] 30, 2024 10:29 AM Reporting Lab: [address] [address] Performing Lab: [address] [address] HEMOGLOBIN A1C 5.8 H 4.0-5.6 Jun 01, 2024 10:38 AM [facility] BASIC METABOLIC PANEL (non-fasting) Specimen Type: SERUM No comment entered. Ordering Provider: LINDA PERSON Report Released Date/Time: May 30, 2024 10:29 AM Reporting Lab: [address] [address] Performing Lab: [address] [address] UREA NITROGEN 13 mg/dL 7-25 GLUCOSE 115 mg/dL H 65-100 SODIUM 140 mmol/L 135-145 POTASSIUM 4.3 mmol/L 3.5-5.0 CHLORIDE 107 mmol/L 100-110 CO2 21 meq/L 20-30 CREATININE, Serum 0.84 mg/dL 0.50-1.40 eGFR(CKD-EPI 2020) >90 mL/min >60 Jun 01, 2024 10:38 AM [facility] LIPID PANEL, NON FASTING Specimen Type: SERUM No comment entered. Ordering Provider: LINDA PERSON Report Released Date/Time: Jun 01, 2024 10:12 AM Reporting Lab: [address] [address] Performing Lab: [address] [address] CHOLESTEROL 126 mg/dL TRIGLYCERIDE 114 mg/dL 0-150 [...] 2023 11:00 AM VA-TOBACCO FORMER USER [facility] Tobacco Use History This section includes a history of the smoking, or tobacco-related health factors, that were collected on or before the date of the Encounter. The data comes from the [place] facility where the Encounter took place. Date/Time Smoking Status/Tobac co Use Comment [facility] [[email or web address] Nov 27, 2023 11:00 AM VA-TOBACCO QUIT 15 YRS OR MORE [place] [facility] [place] [facility] Dec 02, 2022 08:00 AM VA-TOBACCO FORMER USER [place] [facility] [place] [facility] Dec 02, 2022 08:00 AM VA-TOBACCO QUIT 15 YRS OR MORE [place] [facility] [place] [facility] Nov 05, 2021 10:30 AM VA-TOBACCO FORMER USER [place] [facility] [place] [facility] Nov 05, 2021 10:30 AM VA-TOBACCO QUIT 1 TO < 5 YRS [place] [facility] [place] [facility] Sep 14, 2020 02:00 PM VA-TOBACCO FORMER USER [place] [facility] [place] [facility] Sep 14, 2020 02:00 PM VA-TOBACCO QUIT 5 TO < 15 YRS [place] [facility] [place] [facility] Jan 22, 2018 03:40 PM QUIT TOBACCO USE > 7 YEARS AGO [place] [facility] [place] [facility] Jun 04, 2016 02:01 PM CURRENT SMOKER been smoking pass 20 yrs [place] [facility] [place] [facility] Jun 04, 2016 02:01 PM V1-PT DECLINES REF TO TOBACCO [facility]ESS [facility] [place] [facility] Jun 04, 2016 02:01 PM V1-PT THINKING ABOUT QUIT TOBACCO USE [place] [facility] [place] [facility] Jul 18, 2014 03:31 PM V1-PT DECLINES REF TO TOBACCO CESS PRGM [place] [facility] [place] [facility] Jul 18, 2014 03:31 PM V1-PT DECLINES TOBACCO CESSATION MEDS [facility] Jul 18, 2014 03:31 PM V1-PT NOT INTERESTED IN QUIT TOBACCO USE [facility] Jan 09, 2014 10:43 AM CURRENT SMOKER pt smokes 1 pk of cigarettes per day. [facility] Jan 09, 2014 10:43 AM V1-PT THINKING ABOUT QUIT TOBACCO USE [facility] Aug 28, 2003 10:47 AM CURRENT SMOKER one pack q 6 days - he has cut down from 3 PPD. He is in the process of quitting [facility] Encounter Notes: All associated encounter notes This [...] CUSTOMER CARE MEDICATION RENEWAL: Date: Apr Division: [place] Pt referred by Pharmacy Call Center for medication renewal: Non-controlled/maintenan ce medication Medications requested: [id number] METRONIDAZOLE 0.75% TOP GEL Defer to primary care provider To be mailed . Please review and renew if appropriate. *This note was generated by [facility] Pharmacy Customer Care. If you have any questions or need assistance, do not contact this author. Please refer all questions to your local, on-site pharmacy departments. /jerry DOMINGUEZ CPhT Senior Sql Server Developer, [place]/Pharmacy Customer Care Signed: 05/02/2024 10:52 Receipt Acknowledged By: 05/02/2024 14:20 /jerry FOWLER MD PHYSICIAN for ELIZABET PRADO JULIENNE 05/02/2024 10:58 /gaetano/ DEBBIE GORMAN, MSN, RN, CNL PRIMARY CARE TEAM NURSE DEBBIE GORMAN [facility] May 02, 2024 10:51 AM PHARMACY NOTE: LOCAL TITLE: V1 PHARMACY CUSTOMER CARE MEDICATION RENEWAL STANDARD TITLE: PHARMACY NOTE DATE OF NOTE: MAY 02, 2024@10:51 ENTRY DATE: MAY 02, 2024@10:51:56 AUTHOR: GUILLERMO DOMINGUEZ EXP COSIGNER: URGENCY: STATUS: COMPLETED V1 PHARMACY CUSTOMER CARE MEDICATION RENEWAL Has ADDENDA Date: Apr Division: [facility] referred by Pharmacy Call Center for medication renewal: Non-controlled/maintenan ce medication Medications requested: [id number] METRONIDAZOLE 0.75% TOP GEL Defer to primary care provider To be mailed . Please review and renew if appropriate. *This note was generated by [facility] Pharmacy Customer Care. If you have any questions or need assistance, do not contact this author. Please refer all questions to your local, on-site pharmacy departments. /jerry DOMINGUEZ CPhT Senior Sql Server Developer, [place]/Pharmacy Customer Care Signed: 05/02/2024 10:52 Receipt Acknowledged By: 05/02/2024 14:20 /jerry FOWLER MD PHYSICIAN for ELIZABET PRADO JULIENNE 05/02/2024 10:58 /gaetano/ DEBBIE GORMAN, MSN, RN, CNL PRIMARY CARE TEAM NURSE 05/02/2024 ADDENDUM STATUS: COMPLETED Forwarding medication request to covering provider /jerry GORMAN MSN, RN, CNL PRIMARY CARE TEAM NURSE Signed: 05/02/2024 10:58 Receipt Acknowledged By: * AWAITING SIGNATURE * LEE FOWLER [facility]
--- OUTSIDE RECORDS SUMMARY | 2024-12-21 11:58 | XMS_ITS ---
Author Name [facility] [place] [facility] [place] Address [address] [place] [address] Care Team Providers Care Director Loan Name Role Phone ELIZABET ROBINS Primary Care [...] Name Patient's Relationship to Policy Paul [facility] CE ORGANIZAT ION [place] AC Apr 18, 2018 [id number] [phone] WILLISEDILBERTO Lynn SPOUSE AN[place] OF [place] ([place]) [facility] CE ORGANIZAT ION [facility]A [facility] Apr 18, 2018 [id number] WILLIS,EDILBERTO SOTELOZA SPOUSE BCBS [facility]IZ [facility] ACTIV E Apr 18, 2018 [id number] WILLIS,MAR JUDITH SPOUSE BCBS [facility]GAN[facility]ON MIIA [facility] Apr 18, 2018 [id number] [phone] WILLIS,MAR JUDITH PATIENT BCBS OF [facility] CE ORGANIZAT ION BRENDA MCCABE RSD Apr 18, 2018 [id number] WILLIS,MAR JUDITH SPOUSE [place] OF [place] PREFERRED PROVIDER ORGANIZAT ION (PPO) BRENDA [facility] RSD AC Apr 18, 2018 [id number] WILLIS,MAR JUDITH SPOUSE BCBS OF [facility] CE ORGANIZAT ION BRENDA MCCABE RSD ACT Apr 18, 2018 [id number] WILLIS,EDILBERTO JUDITH SPOUSE BCBS OF [facility] CE ORGANIZ [facility]ENDA [facility] AC Apr 18, 2018 [id number] [phone] WILLIS,MAR JUDITH SPOUSE [place] PRESCRIPT ION KSTRISTEN [facility] O Oct 19, 2022 [id number] [phone] WILLIS,MAR JUDITH SPOUSE [place] PRESCRIPT ION RX22M A Oct 19, 2022 [id number] [id number] WILLIS,LAVELLE AEL PATIENT [place] PRESCRIPT ION RX22M B Oct 19, 2022 [id number] WILLIS,LAVELLE AEL PATIENT [place] PRESCRIPT ION BRENDA [facility] AC Oct 19, 2022 [id number] [phone] WILLIS,LAVELLE AEL SPOUSE [place] PRESCRIPT ION RX Oct 19, 2022 [id number] [phone] WILLIS,MAR JUDITH SPOUSE [place] PRESCRIPT ION BCBS OF [place] Oct 19, 2022 [id number] [phone] WILLIS, SPOUSE [place] ([id number]) PRESCRIPT ION [place] OF [place] Oct 19, 2022 [id number] [phone] WILLIS,MAR JUDITH SPOUSE [place] BCBS ([facility] CE ORGANIZAT ION KSTRISTEN [facility] RSD AC Apr 18, 2018 [id number] WILLISEDILBERTO SPOUSE [employer] ([id number]) PRESCRIPT ION Apr 18, 2018 L4TA [id number] WILLISEDILBERTO SPOUSE [employer] ([id number]) PRESCRIPT ION L4TA Apr 18, 2018 L4TA [id number] WILLIS,EDILBERTO WONG SPOUSE [employer] ([id number]) PRESCRIPT ION L4TA* Apr 18, 2018 L4TA [id number] WILLISEDILBERTO SPOUSE [employer] ([id number]) PRESCRIPT ION Apr 18, 2018 L4TA [id number] WILLISEDILBERTO Lynn SPOUSE [employer]-MINOR BROGATION PRESCRIPT ION BCBS OF [place] Apr 18, 2020 L4TA [id number] [phone] WILLIS,EDILBERTO WONG SPOUSE [employer] ([facility]) [facility] CE ORGANIZAT ION W/OUT OF NETWORK BENEFITS [facility] RSD ACT Apr 18, 2018 [id number] [phone] EDILBERTO PEDRO SPOUSE [facility] CE ORGANIZAT ION [facility] RSD AC Apr 18, 2018 [id number] [phone] WILLISEDILBERTO SPOUSE MEDICARE (WNR) MEDICARE () PART A Mar 19, 1990 PART A [id number] WILLISLAVELLE AEL PATIENT MEDICARE (WNR) MEDICARE () PART A Mar 19, 1990 PART A [id number] WILLIS,LAVELLE AEL PATIENT MEDICARE (WNR) MEDICARE () PART A Mar 19, 1990 PART A [id number] WILLIS,LAVELLE AEL PATIENT MEDICARE (WNR) MEDICARE () PART A Mar 19, 1990 PART A [id number] [id number] WILLISLAVELLE AEL PATIENT MEDICARE (WNR) MEDICARE (M) PART A Mar 19, 1990 PART A [id number] WILLISLAVELLE AEL PATIENT MEDICARE (WNR) MEDICARE (M) PART A Mar 19, 1990 PART A [id number] [phone] WILLISLAVELLE AEL PATIENT MEDICARE (WNR) MEDICARE (M) PART A Mar 19, 1990 PART A [id number] [id number] WILLISLAVELLE AEL PATIENT MEDICARE (WNR) MEDICARE (M) PART A Mar 19, 1990 PART A [id number] LAVELLE PEDRO AEL PATIENT MEDICARE (WNR) MEDICARE (M) PART A Mar 19, 1990 PART A [id number] LAVELLE PEDRO AEL PATIENT MEDICARE (WNR) MEDICARE (M) PART A Mar 19, 1990 PART A [id number] [phone] [id number] LAVELLE PEDRO AEL PATIENT MEDICARE (WNR) MEDICARE (M) PART A Mar 19, 1990 PART A [id number] [phone] [id number] LAVELLE PEDRO AEL PATIENT Selected Encounter This section includes the information on record at [place] for the Encounter. Date/Time Encounter Type Encounter Description Reason Provider Source Sep 21, 2024 10:00 AM COMPRE OPH EXAM EST PT 1/> OPTOMETRY ICD-10-CM G45.3 Amaurosis fugax STACIA CAMPO [facility] Encounter Template Text not used by [place] Assessments - Encounter Diagnoses This section includes the primary and secondary diagnoses documented for the Encounter. Date/Time Primary/Secondary Diagnosis Diagnosis Name Provider Source Sep 21, 2024 03:02 PM PRIMARY Amaurosis fugax STACIA CAMPO [place] [facility] [place] [facility] Sep 21, 2024 03:02 PM SECONDARY Age-related nuclear cataract, bilateral STACIA CAMPO B [place] [facility] [place] [facility] Sep 21, 2024 03:02 PM SECONDARY Dry eye syndrome of bilateral lacrimal glands STACIA CAMPO B [place] [facility] [place] [facility] Sep 21, 2024 03:02 PM SECONDARY Hypermetropia, bilateral STACIA CAMPO [place] [facility] [place] [facility] Sep 21, 2024 03:02 PM SECONDARY Type 2 diabetes mellitus without complications STACIA CAMPO [place] [facility] [place] [facility] Plan of Treatment: Future Appointments (+ 6 months) and Future Tests (+/- 45 days) The Plan of Treatment section includes future care activities for the patient from all [place] [facility] [facility]. This section includes future appointments and future orders which are active, pending or scheduled. Future Appointments This section includes appointments that were scheduled to occur 6 months from the date of the Encounter, up to a maximum of 20 appointments. The data comes from all [place] treatment facilities. Appointment Date/Time Appointment Type Appointme nt Facility Name Nov 09, 2024 11:30 AM AMBULATORY - MEDICINE [place] [facility] [place] [facility] Nov 28, 2024 09:30 AM AMBULATORY - MEDICINE [place] [facility] [place] [facility] Dec 02, 2024 08:30 AM AMBULATORY - MEDICINE [place] [facility] [place] [facility] Dec 15, 2024 10:30 AM AMBULATORY - MEDICINE [place] [facility] [place] [facility] Dec 16, 2024 10:20 AM AMBULATORY - MEDICINE [place] [facility] [place] [facility] Mar 20, 2025 09:00 AM AMBULATORY - MEDICINE [place] [facility] [place] [facility] Lab Results: +/- 30 days of the encounter This section includes the Chemistry and Hematology Lab Results on record with [place] for the patient. Radiology Reports and Pathology Reports are provided separately, in subsequent sections. Lab Results This section contains the Chemistry/Hematology Results that were resulted 30 days before or 30 daysafter the date of the Encounter. Date/Time Source Result Type Result - Unit Interpretation Reference Range Comment Sep 21, 2024 10:35 AM [place] [facility] [place] [facility] MICROALBUMIN CREATININE RATIO PANEL Specimen Type: URINE No comment entered. Ordering Provider: LINDA PERSON Report Released Date/Time: Sep 21, 2024 09:08 AM Reporting Lab[facility] [address] [facility]: [facility] [address] [address] MICROALBUMIN/CR EATININE RATIO 7.3 mg/g 0-29.9 MICROALBUMIN,QU ANTITATIVE 0.6 mg/dL RR UNAVAIL CREATININE URINE 81.65 mg/dL Sep 21, 2024 09:30 AM [facility] PHENOBARBITAL (q) Specimen Type: SERUM Comment: Test Performed by [facility], [facility], [address] [place] [address] Danis Lewis M.D., Ph.D., Director of Laboratories , CLIA [id number] TEST PERFORMED AT: , Ordering Provider: LINDA PERSON Report Released Date/Time: Sep 21, 2024 09:08 AM Reporting Lab: [facility] [address] [address] Performing Lab: [facility] [address] [address] PHENOBARBITAL (q) 5.2 mg/L L 15.0-40.0 Sep 21, 2024 09:30 AM [facility] HEMOGLOBIN A1C PANEL Specimen [...] Sep 21, 2024 09:08 AM Reporting Lab: [facility] [address] [address] Performing Lab: [address] [address] HEMOGLOBIN A1C 6.1 H 4.0-5.6 Sep 21, 2024 09:30 AM [facility] LIVER FUNCTION Specimen Type: SERUM No comment entered. Ordering Provider: LINDA PERSON Report Released Date/Time: Sep 21, 2024 09:08 AM Reporting Lab: [facility] [address] [address] Performing Lab: [facility] [address] [address] PROTEIN,TOTAL 7.8 g/dL 6.0-8.3 ALBUMIN 4.4 g/dL 3.5-5.0 ALKALINE PHOSPHATASE 89 U/L 40-150 AST 42 U/L H 5-34 ALT 52 U/L BILIRUBIN, TOTAL 0.3 mg/dL 0.2-1.2 Sep 21, 2024 09:30 AM [facility] BASIC METABOLIC PANEL (non-fasting) Specimen Type: SERUM No comment entered. Ordering Provider: LINDA PERSON Report Released Date/Time: Sep 21, 2024 09:08 AM Reporting Lab: [address] [address] Performing Lab: [address] [address] UREA NITROGEN 10 mg/dL 7-25 GLUCOSE 107 [...] Enrique shannon Nov 27, 2023 11:00 AM [place]-TOBACCO FORMER USER [facility] Tobacco Use History This section includes a history of the smoking, or tobacco-related health factors, that were collected on or before the date of the Encounter. The data comes from the [place] facility where the Encounter took place. Date/Time Smoking Status/Tobac co Use Comment Facility Nov 27, 2023 11:00 AM VA-TOBACCO QUIT 15 YRS OR MORE [facility] [place] [facility] Dec 02, 2022 08:00 AM VA-TOBACCO FORMER USER [facility] Dec 02, 2022 08:00 AM VA-TOBACCO QUIT 15 YRS OR MORE [facility] Nov 05, 2021 10:30 AM VA-TOBACCO FORMER USER [facility] Nov 05, 2021 10:30 AM VA-TOBACCO QUIT 1 TO < 5 YRS [facility] [place] [facility] Sep 14, 2020 02:00 PM VA-TOBACCO [facility] Sep 14, 2020 02:00 PM VA-TOBACCO QUIT 5 TO < 15 YRS [facility] Jan 22, 2018 03:40 PM QUIT TOBACCO USE > 7 YEARS AGO [facility] Jun 04, 2016 02:01 PM CURRENT SMOKER been smoking pass 20 yrs [facility] Jun 04, 2016 02:01 PM V1-PT DECLINES REF TO TOBACCO CESS PRGM [facility] Jun 04, 2016 02:01 PM V1-PT THINKING ABOUT QUIT TOBACCO USE [facility] Jul 18, 2014 03:31 PM V1-PT DECLINES REF TO TOBACCO CESS PRGM [facility] Jul 18, 2014 03:31 PM V1-PT DECLINES TOBACCO CESSATION MEDS [facility] Jul 18, 2014 03:31 PM V1-PT NOT INTERESTED IN QUIT TOBACCO USE [facility] [facility] Jan 09, 2014 10:43 AM CURRENT SMOKER pt smokes 1 pk of cigarettes per day. [facility] Jan 09, 2014 10:43 AM V1-PT THINKING ABOUT QUIT TOBACCO [facility] [place] [facility] Aug 28, 2003 10:47 AM CURRENT SMOKER one pack q 6 days - he has cut down from 3 PPD. He is in the process of quitting [facility] Encounter Notes: All associated encounter notes This section contains the clinical notes associated to the Encounter. Date/Time Encounter Note(s) Provider Source Sep 21, 2024 09:59 AM OPTOMETRY NOTE: LOCAL TITLE: OPTOMETRY NOTE STANDARD TITLE: OPTOMETRY NOTE DATE OF NOTE: SEP 21, 2024@09:59 ENTRY DATE: SEP 21, 2024@09:59:31 AUTHOR: STACIA CAMPO EXP COSIGNER: URGENCY: STATUS: COMPLETED 68 DECLINED [...] siblings MHx: Code Description R69. Seizure disorder ([facility] [id number]) E11.42 Peripheral neuropathy due to type 2 diabetes mellitus ([facility] 8422664989640) J30.2 Seasonal allergic rhinitis ([facility] 056772160) K75.81 Nonalcoholic steatohepatitis ([facility] 328907339) F19.21 History of substance abuse ([facility] 970925637) E66.9 Obesity ([facility] 665537191) E11.9 Diabetes mellitus type 2 ([facility] 87368662) R94.5 Elevated liver enzymes level ([facility] 689424219) G47.30 Sleep apnea ([facility] 55655651) I10. 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 Rosacea ([facility] 486690972) I82.622 Deep venous thrombosis of upper extremity ([facility] 530149423) N20.0 Nephrolithiasis ([facility] 15918329) E78.5 Hyperlipidemia ([facility] 92210797) N40.1 Lower urinary tract symptoms due to benign prostatic hypertrophy ([facility] 75457007306384) V16.42 Family history of prostate cancer ([facility] 349710531) F25.9 Schizoaffective disorder ([facility] 67753410) F10.21 Alcohol dependence ([facility] 73632583) 523.8 Periodontal Disease NEC (ICD-9-CM 523.8) 530.81 GERD (ICD-9-CM 530.81) R20.2 Facial paraesthesia ([facility] 70914545) 367.9 REFRACTION DISORDER NOS (ICD-9-CM 367.9) Other: [...] of active outpatient prescriptions dispensed from this [place] (local) and dispensed from another [place] or [facility] facility (remote) as well as inpatient [...] list may not be complete. Please check Respirics. Allergies/ADRs (Tool #5) FACILITY ALLERGY/ADR -------- [facility] NO KNOWN ALLERGIES [facility] NO KNOWN ALLERGIES [facility] [place] [...] of active outpatient prescriptions dispensed from this [place] (local) and dispensed from another [place] or [facility]D facility (remote) as well as inpatient orders (local pending and active), local clinic medications, locally documented non-VA medications, and local prescriptions that have or been discontinued in the past 90 days. Non-VA Meds Last Documented On: Jul 13, 2024 NOTE The display of VA prescriptions dispensed from another [place] or [facility] facility (remote) is limited to active outpatient prescription entries matched to National Drug File at the originating site and may not include some items such as investigational drugs, compounds, etc. NOT INCLUDED IN THIS LIST: Medications self-entered by the patient into personal health records (i.e. [employer]) are NOT included in this list. Non-VA medications documented outside this [place], remote inpatient orders (regardless of status) and remote clinic medications are NOT included in this list. The patient and provider must always discuss medications the patient is taking, regardless of where the medication was dispensed or obtained. OUTPT ALBUTEROL 3/IPRATROP 0.5MG/3ML INHL 3ML (Status = Active) INHALE 1 VIAL (3ML) IN NEBULIZER EVERY 4 HOURS NEEDED FOR BRONCHOSPASM Rx# [id number] Last Released: 04/16/24 Qty/Days Supply: Rx Expiration Date: 04/14/25 Refills Remainin Indication: FOR BRONCHOSPASM OUTPT ALBUTEROL 90MCG (CFC-F) 200D ORAL INHL (Status = Active) INHALE 2 PUFFS BY MOUTH EVERY 4 HOURS NEEDED FOR SHORTNESS OF BREATH Rx# [id number] Last Released: 04/16/24 Qty/Days Supply: 11/17 Rx Expiration Date: 04/14/25 Refills Remainin OUTPT AMLODIPINE BESYLATE 5MG TAB (Status = Discontinued) TAKE ONE TABLET BY MOUTH ONCE DAILY FOR BLOOD PRESSURE/HEART, DO NOT TAKE WITH [employer] JUICE Rx# [id number] Last Released: 03/30/24 Qty/Days Supply: Rx Expiration Date: 06/25/24 Refills Remainin OUTPT AMLODIPINE BESYLATE 5MG TAB (Status = Active) TAKE ONE TABLET BY MOUTH ONCE DAILY FOR BLOOD PRESSURE/HEART, DO NOT TAKE WITH [employer]APE[employer] JUICE Rx# [id number] Last Released: 06/28/24 Qty/Days Supply: Rx Expiration Date: 06/25/25 Refills Remainin OUTPT ATORVASTATIN CALCIUM 80MG TAB (Status = Active) TAKE ONE-HALF TABLET BY MOUTH AT BEDTIME FOR CHOLESTEROL Rx# [id number] Last Released: 07/11/24 Qty/Days Supply: Rx Expiration Date: 04/09/25 Refills Remainin Indication: FOR HIGH CHOLESTEROL OUTPT DICLOFENAC NA 75MG EC TAB (Status = ) TAKE ONE TABLET BY MOUTH TWICE DAILY NEEDED FOR PAIN/INFLAMMATION Rx# [id number] Last Released: 07/05/24 Qty/Days Supply: 01/05 Rx Expiration Date: 07/28/24 Refills Remainin Indication: FOR PAIN AND INFLAMMATION OUTPT DM 10/GUAIFENESN 100MG/5ML (AF & SF) LIQ (Status = Discontinued) TAKE 5 MLS (ONE TEASPOONFUL) BY MOUTH EVERY 6 HOURS NEEDED FOR COUGH Rx# [id number] Last Released: 03/28/24 Qty/Days Supply: 240/10 Rx Expiration Date: 03/29/25 Refills Remainin Indication: FOR COUGH OUTPT DOXYCYCLINE HYCLATE 50MG CAP (Status = Discontinued) TAKE ONE CAPSULE BY MOUTH ONCE DAILY Rx# [id number] Last Released: 04/12/24 Qty/Days Supply: Rx Expiration Date: 04/12/25 Refills Remainin Indication: FOR INFECTION CAUSED BY BACTERIA OUTPT FAMOTIDINE 20MG TAB (Status = Active/Suspended) TAKE ONE TABLET BY MOUTH DAILY FOR STOMACH ACID Rx# [id number] Last Released: 08/04/24 Qty/Days Supply: Rx Expiration Date: 04/29/25 Refills Remainin OUTPT KETOTIFEN 0.025% OPH SOLN (Status = Active) INSTILL 1 DROP INTO EACH EYE TWICE DAILY NEEDED FOR ALLERGIC CONJUNCTIVITIS (IF YOU WEAR CONTACT LENSES, WAIT 10 MINUTES BEFORE INSERTING LENSES) Rx# [id number] Last Released: 06/16/24 Qty/Days Supply: Rx Expiration Date: 12/10/24 Refills Remainin Indication: FOR ALLERGIC CONJUNCTIVITIS OUTPT LACTOBACILLUS ACIDOPHILUS CAP (Status = Active) TAKE 1 CAPSULE BY MOUTH TWICE DAILY Rx# [id number] Last Released: 09/05/24 Qty/Days Supply: 200 Rx Expiration Date: 10/15/24 Refills Remainin Indication: FOR PROBIOTIC SUPPLEMENTATION OUTPT LEVOCETIRIZINE DIHYDROCHLORIDE 5MG TAB (Status = Active) TAKE ONE TABLET BY MOUTH EVERY EVENING FOR ALLERGIES Rx# [id number] Last Released: 08/19/24 Qty/Days Supply: Rx Expiration Date: 03/24/25 Refills Remainin Indication: FOR ALLERGIES OUTPT LIDOCAINE 5% PATCH (Status = ) APPLY 1 PATCH TOPICALLY EVERY 12 HOURS NEEDED (LEAVE PATCH ON FOR 12 HOURS, THEN REMOVE PATCH) Rx# [id number] Last Released: 01/22/24 Qty/Days Supply: Rx Expiration Date: 08/14/24 Refills Remainin Indication: FOR NERVE PAIN OUTPT METFORMIN HCL 1000MG TAB (Status = Active) TAKE ONE TABLET BY MOUTH TWICE DAILY FOR DIABETES Rx# [id number] Last Released: 08/12/24 Qty/Days Supply: 180 Rx Expiration Date: 02/16/25 Refills Remainin OUTPT METRONIDAZOLE 0.75% TOP GEL (Status = Active) APPLY MODERATE AMOUNT TOPICALLY TWICE DAILY FOR ACNE ROSACEA Rx# [id number] Last Released: 05/06/24 Qty/Days Supply: Rx Expiration Date: 05/03/25 Refills Remainin Indication: FOR ACNE ROSACEA Non-VA MULTIVITAMIN/MINERALS CAP/TAB TAKE ONE CAP/TAB BY MOUTH ONCE DAILY Patient wants to buy from Non-VA pharmacy. OUTPT ONDANSETRON 4MG ORAL DISINTEGRATING TAB (Status = Active) PLACE ONE TABLET ON THE TONGUE EVERY 8 HOURS NEEDED FOR NAUSEA AND VOMITING (ALLOW TABLET TO DISSOLVE ON TONGUE, AND SWALLOW WITH SALIVA) Rx# [id number] Last Released: 07/13/24 Qty/Days Supply: Rx Expiration Date: 07/14/25 Refills Remainin Indication: FOR NAUSEA AND VOMITING Non-VA OTHER CAP/TAB TAKE THC BY MOUTH TWICE DAILY Patient wants to buy from Non-VA pharmacy. Indication: epilepsy OUTPT PEG 400 0.4%/PROP GLYCOL 0.3% OPH SOLN (Status = Active) INSTILL 1 DROP INTO EACH EYE FOUR TIMES DAILY NEEDED DRY EYE Rx# [id number] Last Released: 12/14/23 Qty/Days Supply: Rx Expiration Date: 12/10/24 Refills Remainin Indication: DRY EYE OUTPT PHENOBARBITAL 32.4MG TAB (Status = Active) TAKE ONE TABLET BY MOUTH TWICE DAILY Rx# [id number] Last Released: 08/19/24 Qty/Days Supply: Rx Expiration Date: 02/15/25 Refills Remainin OUTPT SILDENAFIL CITRATE 25MG TAB (Status = Active) TAKE ONE TABLET BY MOUTH ONCE DAILY FOR ERECTILE DYSFUNCTION TAKE 1 HOUR PRIOR TO SEXUAL ACTIVITY Rx# [id number] Last Released: 08/23/24 Qty/Days Supply: Rx Expiration Date: 06/02/25 Refills Remainin Indication: FOR ERECTILE DYSFUNCTION SUPPLIES OUTPT ACCU-CHEK GUIDE (GLUCOSE) TEST STRIP (Status = Active) USE 1 STRIP TO TEST BLOOD SUGARS TWO TIMES A WEEK Rx# [id number] Last Released: 02/20/24 Qty/Days Supply: 50/180 Rx Expiration Date: 02/17/25 Refills Remainin OUTPT ALCOHOL PREP PAD (Status = Active) USE 1 PAD TOPICALLY TWICE A WEEK NEEDED TO CLEAN SKIN FOR INJECTION ETC Rx# [id number] Last Released: 02/19/24 Qty/Days Supply: 200/90 Rx Expiration Date: 02/17/25 Refills Remainin /gaetano/ STACIA CAMPO OD Press Operator Printing Signed: 09/21/2024 15:03 STACIA CAMPO [facility]
--- OUTSIDE RECORDS SUMMARY | 2024-12-21 11:58 | XMS_ITS ---
Author Name [facility] [facility] [place] [facility] [place] Address [address] [place] [address] Care Team Providers Care Workday Senior Associate Name Role Phone ELIZABET ROBINS Primary Care [...] Paul's Name Patient's Relationship to Policy [facility] CE ORGANIZAT ION [facility] AC Apr 18, 2018 [id number] [phone] WILLISEDILBERTOZA SPOUSE ANTHEM [place] OF [place] ([place]ARD) HEALTH MAINTENAN CE ORGANIZAT ION [facility] Apr 18, 2018 [id number] WILLIS,EDILBERTO SOTELOZA SPOUSE BCBS [facility] CE ORGANIZ [facility] SHARE ACTIV E Apr 18, 2018 [id number] WILLIS,MAR JUDITH SPOUSE BCBS OF [facility] CE ORGANIZAT ION [facility] Apr 18, 2018 [id number] [phone] WILLIS,MAR JUDITH PATIENT BCBS OF [facility] CE ORGANIZAT ION BRENDA MCCABE [facility] Apr 18, 2018 [id number] WILLIS,MAR JUDITH SPOUSE BCBS OF [place] PREFERRED PROVIDER ORGANIZAT ION (PPO) [facility]DA [facility] AC Apr 18, 2018 [id number] WILLIS,MAR JUDITH SPOUSE BCBS OF [facility] CE ORGANIZAT ION BRENDA [facility] ACT Apr 18, 2018 [id number] WILLIS,MAR JUDITH SPOUSE BCBS OF [facility] CE ORGANIZ BRENDA [facility] AC Apr 18, 2018 [id number] [phone] WILLIS,MAR JUDITH SPOUSE [place] PRESCRIPT ION RX Oct 19, 2022 [id number] WILLIS,MAR JUDITH SPOUSE [place] PRESCRIPT I[place] OF [place] Oct 19, 2022 [id number] [phone] WILLIS, SPOUSE [place] PRESCRIPT ION RX22M A Oct 19, 2022 [id number] WILLIS,LAVELLE AEL PATIENT [place] PRESCRIPT ION RX22M B Oct 19, 2022 [id number] WILLIS,LAVELLE AEL PATIENT [place] PRESCRIPT ION BRENDA MCCABE [facility] AC Oct 19, 2022 [id number] [phone] WILLIS,LAVELLE AEL SPOUSE [place] PRESCRIPT ION [facility] Oct 19, 2022 [id number] WILLIS,MAR JUDITH SPOUSE [place] ([id number]) PRESCRIPT I[place] Oct 19, 2022 [id number] [phone] WILLIS,MAR JUDITH SPOUSE [place] BCBS ([facility] CE ORGANIZAT ION [facility] AC Apr 18, 2018 [phone] WILLISEDILBERTO SPOUSE [employer] ([id number]) PRESCRIPT ION Apr 18, 2018 L4TA [id number] WILLISEDLIBERTO SPOUSE [employer] ([id number]) PRESCRIPT ION L4TA* Apr 18, 2018 L4TA [id number] WILLISEDILBERTO SPOUSE [employer] ([id number]) PRESCRIPT ION L4TA Apr 18, 2018 L4TA [id number] WILLISEDILBERTO SPOUSE [employer] ([id number]) PRESCRIPT ION Apr 18, 2018 L4TA [id number] WILLISEDILBERTO SPOUSE [employer] PRESCRIPT ION [place] Apr 18, 2020 L4TA [id number] [phone] WILLIS,EDILBERTO WONG SPOUSE [employer] ([facility]) [facility] CE ORGANIZAT ION W/OUT OF NETWORK BENEFITS [facility] ACT Apr 18, 2018 [id number] EDILBERTO PEDRO SPOUSE [place] BCBS [facility] (BLUECARD) [facility] CE ORGANIZAT ION [facility] AC Apr 18, 2018 [id number] [phone] EDILBERTO PEDRO SPOUSE MEDICARE (WNR) MEDICARE () PART A Mar 19, 1990 PART A [id number] [phone] [id number] LAVELLE PEDRO AEL PATIENT MEDICARE (WNR) MEDICARE () PART A Mar 19, 1990 PART A [id number] [phone] LAVELLE PEDRO AEL PATIENT MEDICARE (WNR) MEDICARE (M) PART A Mar 19, 1990 PART A [id number] LAVELLE PEDRO AEL PATIENT MEDICARE (WNR) MEDICARE (M) PART A Mar 19, 1990 PART A [id number] WILLIS,LAVELLE AEL PATIENT MEDICARE (WNR) MEDICARE (M) PART A Mar 19, 1990 PART A [id number] WILLIS,LAVELLE AEL PATIENT MEDICARE (WNR) MEDICARE (M) PART A Mar 19, 1990 PART A [id number] WILLIS,LAVELLE AEL PATIENT MEDICARE (WNR) MEDICARE (M) PART A Mar 19, 1990 PART A [id number] [phone] WILLIS,LAVELLE AEL PATIENT MEDICARE (WNR) MEDICARE (M) PART A Mar 19, 1990 PART A [id number] WILLIS,LAVELLE AEL PATIENT MEDICARE (WNR) MEDICARE (M) PART A Mar 19, 1990 PART A [id number] WILLIS,LAVELLE AEL PATIENT MEDICARE (WNR) MEDICARE (M) PART A Mar 19, 1990 PART A [id number] WILLIS,LAVELLE AEL PATIENT MEDICARE (WNR) MEDICARE (M) PART A Mar 19, 1990 PART A [id number] WILLIS,LAEVLLE AEL PATIENT Selected Encounter This section includes the information on record at PA for the Encounter. Date/Time Encounter Type Encounter Description Reason Provider Source Jun 28, 2024 11:30 AM OFFICE O/P EST MOD 30 MIN PRIMARY CARE/MEDICINE ICD-10-CM G40.89 Other seizures ELIZABET ROBINS [facility] Encounter Template Text not used by PA Assessments - Encounter Diagnoses This section includes the primary and secondary diagnoses documented for the Encounter. Date/Time Primary/Secondary Diagnosis Diagnosis Name Provider Source Jun 28, 2024 12:35 PM PRIMARY Other seizures ELIZABET ROBINS [facility] [place] [facility] Plan of Treatment: Future [...] MEDICINE [facility] [place] [facility] Jul 13, 2024 09:30 AM AMBULATORY - MEDICINE [facility] [place] [facility] Aug 12, 2024 09:30 AM AMBULATORY - MEDICINE [facility] [place] [facility] Aug 22, 2024 09:00 AM AMBULATORY - MEDICINE [facility] [place] [facility] Sep 21, 2024 09:00 AM AMBULATORY - MEDICINE [facility] [place] [facility] Sep 21, 2024 10:00 AM AMBULATORY - MEDICINE [facility] [place] [facility] Nov 09, 2024 11:30 AM AMBULATORY - MEDICINE [facility] [place] [facility] Nov 28, 2024 09:30 AM AMBULATORY - MEDICINE [facility] [place] [facility] Dec 02, 2024 08:30 AM AMBULATORY - MEDICINE [facility] [place] [facility] Dec 15, 2024 10:30 AM AMBULATORY - MEDICINE [facility] [place] [facility] Dec 16, 2024 10:20 AM AMBULATORY - MEDICINE [facility] [place] [facility] Lab Results: +/- 30 [...] Range Comment Jun 01, 2024 12:25 PM [facility] [place] [facility] MICROALBUMIN CREATININE RATIO PANEL Specimen Type: URINE No comment entered. Ordering Provider: LINDA PERSON Report Released Date/Time: Jun 01, 2024 11:53 AM Reporting Lab: [facility] [place] [facility] [address] [facility] [address] Performing Lab: [facility] [address] [address] MICROALBUMIN/C REATININE RATIO 10.8 mg/g 0-29.9 MICROALBUMIN,Q UANTITATIVE 1.1 mg/dL RR UNAVAIL CREATININE URINE 101.63 mg/dL Jun 01, 2024 10:38 AM [facility] HEMOGLOBIN A1C PANEL Specimen Type: BLOOD [...] May 30, 2024 10:29 AM Reporting Lab: [address] [address] Performing Lab: [address] [address] HEMOGLOBIN A1C 5.8 H 4.0-5.6 Jun 01, 2024 10:38 AM [facility] BASIC METABOLIC PANEL (non-fasting) Specimen Type: SERUM No comment entered. Ordering Provider: LINDA PERSON Report Released Date/Time: May 30, 2024 10:29 AM Reporting Lab: [address] [address] Performing Lab: [address] [address] UREA NITROGEN 13 mg/dL 7-25 GLUCOSE 115 mg/dL H 65-100 SODIUM 140 mmol/L 135-145 POTASSIUM 4.3 mmol/L 3.5-5.0 CHLORIDE 107 mmol/L 100-110 CO2 21 meq/L 20-30 CREATININE, Serum 0.84 mg/dL 0.50-1.40 eGFR(CKD-EPI 2020) >90 mL/min >60 Jun 01, 2024 10:38 AM [facility] LIPID PANEL, NON FASTING Specimen Type: SERUM No comment entered. Ordering Provider: LINDA PERSON Report Released Date/Time: Jun 01, 2024 10:12 AM Reporting Lab: [address] [address] Performing Lab: [facility] [place] [facility] [address] [facility] [address] CHOLESTEROL 126 mg/dL TRIGLYCERIDE 114 mg/dL 0-150 [...] 126/87 16 95 10 66 214 35 [facility] [place] [facility] Social History: Smoking Status [...] took place. Date/Time Current Smoking Status Comment [facility] Nov 27, 2023 11:00 AM VA-TOBACCO FORMER USER [facility] [place] [facility] Tobacco Use History This section includes a history of the smoking, or tobacco-related health factors, that were collected on or before the date of the Encounter. The data comes from the PA facility where the Encounter took place. Date/Time Smoking Status/Tobac co Use Comment Facility Nov 27, 2023 11:00 AM VA-TOBACCO QUIT 15 YRS OR MORE [facility] [place] [facility] Dec 02, 2022 08:00 AM VA-TOBACCO FORMER USER [facility] [place] [facility] Dec 02, 2022 08:00 AM VA-TOBACCO QUIT 15 YRS OR MORE [facility] [place] [facility] Nov 05, 2021 10:30 AM VA-TOBACCO FORMER USER [facility] [place] [facility] Nov 05, 2021 10:30 AM VA-TOBACCO QUIT 1 TO < 5 YRS [facility] [place] [facility] Sep 14, 2020 02:00 PM VA-TOBACCO FORMER USER [facility] [place] [facility] Sep 14, 2020 02:00 PM VA-TOBACCO QUIT 5 TO < 15 YRS [facility] [place] [facility] Jan 22, 2018 03:40 PM QUIT TOBACCO USE > 7 YEARS AGO [facility] Jun 04, 2016 02:01 PM CURRENT SMOKER been smoking pass 20 yrs [facility] Jun 04, 2016 02:01 PM V1-PT DECLINES REF TO TOBACCO CESS PRGM [facility] Jun 04, 2016 02:01 PM V1-PT THINKING ABOUT QUIT TOBACCO USE [facility] Jul 18, 2014 03:31 PM V1-PT DECLINES REF TO TOBACCO CESS PRGM [facility] Jul 18, 2014 03:31 PM V1-PT DECLINES TOBACCO CESSATION MEDS [facility] Jul 18, 2014 03:31 PM V1-PT NOT INTERESTED IN QUIT TOBACCO USE [facility] Jan 09, 2014 10:43 AM CURRENT SMOKER pt smokes 1 pk of cigarettes per day. [facility] Jan 09, 2014 10:43 AM V1-PT THINKING ABOUT QUIT TOBACCO USE [facility] Aug 28, 2003 10:47 AM CURRENT SMOKER one pack q 6 days - he has cut down from 3 PPD. He is in the process of quitting [facility] Encounter Notes: All associated encounter notes This section contains the clinical notes associated to the Encounter. Date/Time Encounter Note(s) Provider Source Jun 28, 2024 12:35 PM PRIMARY CARE NOTE: LOCAL TITLE: CHART REVIEW STANDARD TITLE: PRIMARY CARE NOTE DATE OF NOTE: JUN 28, 2024@12:35 ENTRY DATE: JUN 28, 2024@12:35:31 AUTHOR: ELIZABET ROBINS EXP COSIGNER: URGENCY: STATUS: COMPLETED CHART REVIEW Has ADDENDA LISSETT montalvot was sent to ER for SZ activity /gaetano/ CIERRA GREGORY Nurse Practitioner Signed: 06/28/2024 12:35 Receipt Acknowledged By: 06/29/2024 14:37 /gaetano/ Melonie RUFF,RN,[facility] TRANSFER/TRAVELING COORDINATOR 06/28/2024 ADDENDUM STATUS: COMPLETED [facility] ER is there now /gaetano/ CIERRA GREGORY Nurse Practitioner Signed: 06/28/2024 12:35 ELIZABET ROBINS [facility] [place] [facility] Jun 28, 2024 12:11 PM NURSING NOTE: [...] prostate cancer 20. Schizoaffective disorder (SNOMED CT 74715953) 21. Alcohol dependence (SNOMED CT 17186405) 22. Periodontal Disease NEC 23. GERD 24. [...] Facility Info COVID-19 (MODERNA), MRNA, LNP-S,* 06/01/2024 [facility] * <I> <C> See the Detailed [...] IMAGING REPORTS SUMMARY pg. 1 CHAYA PEDRO [phone] : 1955 II - Imaging Impression (max 1 occurrence) Date Procedure CPT Status Case # 03/28/2024 LDCT LUNG CANCER SCREENING [id number] Verified 16 No acute pulmonary process or significant interval change. Lung-RADS Assessment: Category 1, Negative. Recommendation: Continue annual screening with lung cancer screening CT in 12 months. Other Significant Findings and Recommendations: None. IP - Imaging Profile 03/28/2024 LDCT LUNG CANCER SCREENING CPT Code: 90790 Interpreting Staff: RAYMOND LEAL JR Exam Case [...] reviewed. Secondary computer-aided detection with post-processing from i[employer] is used. The lack of intravenous contrast [...] NEGATIVE 12/10/2023 ULTRASOUND AAA SCREENING CPT Code: 55854 Interpreting Staff: RAYMOND LEAL JR Exam Case [...] 03/30/2023 LDCT LUNG CANCER SCREENING CPT Code: 10830 Interpreting Staff: RAYMOND LEAL JR Exam Case [...] NEGATIVE 12/29/2022 ULTRASOUND ABDOMEN LIMITED CPT Code: 30007 Interpreting Staff: RAYMOND LEAL JR Exam Case [...] ABDOMEN AND PELVIS WITHOUT CONT. CPT Code: 53371 Interpreting Staff: RADIOLOGY,OUTSIDE Exam Case Number: [id number] Exam Status: COMPLETE Rpt Status: VERIFIED Technologist: ESME CONCEPCION Reason for Study: Kidney stones Report: PROCEDURE: Stat CT abdomen and pelvis without contrast DATE: May 27, 2021 COMPARISON: January 07, 2017 HISTORY: Kidney stones TECHNIQUE: Per [facility] radiology department. CONTRAST: None TOTAL DLP: 905 mg*cm FINDINGS: A total of 454 images were submitted to National [facility] Program (NTP). BONES: Chronic degenerative disc disease. [...] fatty infiltration. READING PHYSICIAN: Damaso Fay M.D. 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 Service: ERA Branch of Service: [employer] Combat: NO POW: NO Eligibility: SERVICE CONNECTED 50% to 100% Status: VERIFIED Means Test: NOK: KATIE PEDRO Relation: [address] [place] Insurance COB Subscriber ID Group Paul Effective MEDICARE (WNR) S [id number] MAR 19, 1990 [place] P [id number] SPOUSE SEP 18, 2014 [employer] P [id number] SPOUSE SEP 18, 2014 [employer] RX P [id number] SPOUSE SEP 18, 2014 [place] P [id number] SPOUSE APR 18, 2018 [employer] (6100 P [id number] SPOUSE APR 18, 2020 No barriers; Patient understands and agrees to current treatment plan. EMERGENCY ROOMS Emergency Room FAX # Tel # [facility] [phone] [facility] [phone] 2 [facility] Wing [phone] [facility] [phone] [place] [phone] 2 [facility] [phone] 1 [place] [phone] 3 /es/ MARYJO GARCIA REGISTERED NURSE Signed: 06/28/2024 12:11 MARYJO GARCIA [place] [facility] [place] [facility] Jun 28, 2024 11:46 AM PRIMARY CARE [...] witness SZ, he wanted to go to [facility] but they took him to closest which was [place] and had a few SZ while there, [...] caused by toxin 12. Diverticulosis 2016 ct [place] [facility] 13. Galeas's esophagus EGD 09/02/16 Dr. Hampton 14. Rosacea 15. Deep venous thrombosis of upper extremity LUE, basilic vein 16. Nephrolithiasis On CT at [facility] 02/07/2015. 17. Hyperlipidemia Total chol/HDL/LDL/trigs: 154/41/84/145 (04/08/22). F/U to discuss statin w/ T2DM 18. Lower urinary tract symptoms due to benign prostatic hypertrophy (SNOMED CT PSA normal (04/08/22) 19. Family history of prostate cancer Father and three brothers. 20. Schizoaffective disorder (SNOMED CT 97128797) 21. Alcohol dependence (SNOMED CT 01884884) episodic 22. Periodontal Disease NEC 23. GERD [...] MENDOZA PHYSI KACI EXAM GENERAL: somewhat distressed [place] speeking in clear sentences. SKIN: Clean, dry [...] safely there I have reached out to [facility] ER triage nurse for intake and also [...] of active outpatient prescriptions dispensed from this PA (local) and dispensed from another PA or [facility] facility (remote) as well as inpatient [...] Nurse Practitioner Signed: 06/28/2024 12:33 ELIZABET ROBINS PA [facility]
--- OUTSIDE RECORDS SUMMARY | 2024-12-21 11:58 | XMS_ITS | Encounter Summary ---
Author Name [place] Address [address] [place] [address] Care Team Providers Care Otolaryngology Surgeon Name Role Phone ELIZABET ROBINS Primary Care [...] Paul [facility] CE ORGANIZAT ION TXIA [facility] AC Apr 18, 2018 [id number] [phone] WILLISEDILBERTO LynnZA SPOUSE ANTHEM BCBS OF [place] ([place]ARD) HEALTH MAINTENAN CE ORGANIZAT ION MIIA [facility] Apr 18, 2018 [id number] [phone] WILLIS,EDILBERTO SOTELOZA SPOUSE BCBS [facility] CE ORGANIZ [facility] SHARE ACTIV E Apr 18, 2018 [id number] [phone] WILLIS,MAR JUDITH SPOUSE BCBS OF [facility] [place] CE ORGANIZAT ION MIIA [facility] Apr 18, 2018 [id number] [phone] WILLIS,MAR JUDITH PATIENT BCBS OF [facility] CE ORGANIZAT ION BRENDA MCCABE RSD Apr 18, 2018 [id number] WILLIS,MAR JUDITH SPOUSE BCBS OF [place] PREFERRED PROVIDER ORGANIZAT ION (PPO) BR[facility]DA [facility] AC Apr 18, 2018 [id number] [phone] WILLIS,MAR JUDITH SPOUSE BCBS OF [facility] CE ORGANIZAT ION BRENDA MCCABE RSD ACT Apr 18, 2018 [id number] WILLIS,MAR JUDITH SPOUSE BCBS OF [facility] CE ORGANIZ BRENDA [facility] AC Apr 18, 2018 [id number] [phone] WILLIS,MAR JUDITH SPOUSE [place] PRESCRIPT ION RX Oct 19, 2022 RX22MC [id number] WILLIS,MAR JUDITH SPOUSE [place] PRESCRIPT ION RX22M A Oct 19, 2022 RX22MA [id number] WILLIS,LAVELLE AEL PATIENT [place] PRESCRIPT ION RX22M B Oct 19, 2022 RX22MB [id number] WILLIS,LAVELLE AEL PATIENT [place] PRESCRIPT ION BRENDA MCCABE RSD AC Oct 19, 2022 RX22MB [id number] [phone] WILLIS,LAVELLE AEL SPOUSE [place] PRESCRIPT ION BCBS OF [place] Oct 19, 2022 RX22MA [id number] [phone] WILLIS, SPOUSE [place] PRESCRIPT ION TXTRISTEN [facility] Oct 19, 2022 RX22MB [id number] WILLIS,MAR JUDITH SPOUSE [place] ([id number]) PRESCRIPT ION BCBS OF [place] Oct 19, 2022 RX22MB [id number] [phone] WILLIS,MAR JUDITH SPOUSE [place] BCBS ([facility] CE ORGANIZAT ION TXTRISTEN [facility] RSD AC Apr 18, 2018 [id number] [phone] WILLISEDILBERTO SPOUSE EXPRESS SCRIPTS ([id number]) PRESCRIPT ION Apr 18, 2018 L4TA [id number] WILLISEDILBERTO SPOUSE [employer] S[employer]TS ([id number]) PRESCRIPT ION Apr 18, 2018 L4TA [id number] WILLISEDILBERTO SPOUSE EXPRESS SCRIPTS ([id number]) PRESCRIPT ION L4TA* Apr 18, 2018 L4TA [id number] WILLISEDILBERTO SPOUSE EXPRESS SCRIPTS ([id number]) PRESCRIPT ION L4TA Apr 18, 2018 L4TA [id number] WILLISEDILBERTO SPOUSE EXPRESS SCRIPTS-MINOR BROGATION PRESCRIPT ION BCBS OF [place] Apr 18, 2020 L4TA [id number] WILLIS,EDILBERTO WONG SPOUSE [facility] ([facility]) [facility] CE ORGANIZAT ION W/OUT OF NETWORK BENEFITS [facility] RSD ACT Apr 18, 2018 [id number] EDILBERTO PEDRO SPOUSE [facility] CE ORGANIZAT ION [facility] RSD AC Apr 18, 2018 [id number] WILLISEDILBERTO SPOUSE MEDICARE (WN) MEDICARE () PART A Mar 19, 1990 PART A [id number] WILLISLAVELLE AEL PATIENT MEDICARE (WN) MEDICARE () PART A Mar 19, 1990 PART A [id number] WILLIS,LAVELLE AEL PATIENT MEDICARE (WNR) MEDICARE () PART A Mar 19, 1990 PART A [id number] [phone] WILLIS,LAVELLE AEL PATIENT MEDICARE (WNR) MEDICARE () PART A Mar 19, 1990 PART A [id number] WILLISLAVELLE AEL PATIENT MEDICARE (WNR) MEDICARE (M) PART A Mar 19, 1990 PART A [id number] [phone] WILLIS,LAVELLE AEL PATIENT MEDICARE (WNR) MEDICARE (M) PART A Mar 19, 1990 PART A [id number] WILLIS,LAVELLE AEL PATIENT MEDICARE (WNR) MEDICARE (M) PART A Mar 19, 1990 PART A [id number] [phone] WILLIS,LAVELLE AEL PATIENT MEDICARE (WNR) MEDICARE (M) PART A Mar 19, 1990 PART A [id number] [phone] WILLIS,LAVELLE AEL PATIENT MEDICARE (WNR) MEDICARE (M) PART A Mar 19, 1990 PART A [id number] [phone] WILLIS,LAVELLE AEL PATIENT MEDICARE (WNR) MEDICARE (M) PART A Mar 19, 1990 PART A [id number] WILLISLAVELLE AEL PATIENT MEDICARE (WNR) MEDICARE (M) PART A Mar 19, 1990 PART A [id number] WILLIS,LAVELLE AEL PATIENT Selected Encounter This [...] care activities for the patient from all [place] treatmentfacilities. This section includes future appointments and [...] 13, 2024 09:30 AM AM[place]UL[place]ORY [place] [facility] Aug 12, 2024 09:30 AM AMBULATORY [place]IC[place] [facility] Aug 22, 2024 09:00 AM AMBULATORY [place]ICINE [place] [facility] Sep 21, 2024 09:00 AM AMBULATORY [place]ICINE [place] [facility] Sep 21, 2024 10:00 AM AMBULATORY [place]ICINE [place] [facility] Nov 09, 2024 11:30 AM AMBULATORY [place]ICINE [place] [facility] Nov 28, 2024 09:30 AM AMBULATORY [place]ICINE [place] [facility] Dec 02, 2024 08:30 AM AM[place]ULATORY [place]ICINE [place] [facility] Lab Results: +/- 30 days [...] Range Comment Jun 01, 2024 12:25 PM [facility] MICROALBUMIN CREATININE RATIO PANEL Specimen Type: URINE No comment entered. Ordering Provider: LINDA PERSON Report Released Date/Time: Jun 01, 2024 11:53 AM Reporting Lab: [facility] [address] [address] Performing Lab: [facility] [address] [address] MICROALBUMIN/C REATININE RATIO 10.8 mg/g 0-29.9 MICROALBUMIN,Q UANTITATIVE 1.1 mg/dL RR UNAVAIL CREATININE URINE 101.63 mg/dL Jun 01, 2024 10:38 AM [facility] HEMOGLOBIN A1C PANEL Specimen Type: [...] May 30, 2024 10:29 AM Reporting Lab: [facility] [address] [facility] [address] Performing Lab: [address] [address] HEMOGLOBIN A1C 5.8 H 4.0-5.6 Jun 01, 2024 10:38 AM [facility] BASIC METABOLIC PANEL (non-fasting) Specimen Type: SERUM No comment entered. Ordering Provider: LINDA PERSON Report Released Date/Time: May 30, 2024 10:29 AM Reporting Lab: [address] [address] Performing Lab: [address] [address] UREA NITROGEN 13 mg/dL 7-25 GLUCOSE 115 mg/dL H 65-100 SODIUM 140 mmol/L 135-145 POTASSIUM 4.3 mmol/L 3.5-5.0 CHLORIDE 107 mmol/L 100-110 CO2 21 meq/L 20-30 CREATININE, Serum 0.84 mg/dL 0.50-1.40 eGFR(CKD-EPI 2020) >90 mL/min >60 Jun 01, 2024 10:38 AM [facility] LIPID PANEL, NON FASTING Specimen Type: SERUM No comment entered. Ordering Provider: LINDA PERSON Report Released Date/Time: Jun 01, 2024 10:12 AM Reporting Lab: [address] [address] Performing Lab: [address] [address] CHOLESTEROL 126 mg/dL TRIGLYCERIDE 114 mg/dL 0-150 [...] 27, 2023 11:00 AM VA-TOBACCO FOR[facility]ER [facility] Tobacco Use History This section includes a history of the smoking, or tobacco-related health factors, that were collected on or before the date of the Encounter. The data comes from the [place] facility where the Encounter took place. Date/Time Smoking Status/Tobac co Use Comment Facility Nov 27, 2023 11:00 AM VA-TOBACCO QUIT 15 YRS OR MORE [place] [facility] Dec 02, 2022 08:00 AM VA-TOBACCO FORMER USER [place] [facility] Dec 02, 2022 08:00 AM VA-TOBACCO QUIT 15 YRS OR MORE [place] [facility] Nov 05, 2021 10:30 AM VA-TOBACCO FORMER USER [place] [facility] Nov 05, 2021 10:30 AM VA-TOBACCO QUIT 1 TO < 5 YRS [place] [facility] Sep 14, 2020 02:00 PM VA-TOBACCO FORMER USER [place] [facility] Sep 14, 2020 02:00 PM VA-TOBACCO QUIT 5 TO < 15 YRS [place] [facility] Jan 22, 2018 03:40 PM QUIT TOBACCO USE > 7 YEARS AGO [place] [facility] Jun 04, 2016 02:01 PM CURRENT SMOKER been smoking pass 20 yrs [place] [facility] Jun 04, 2016 02:01 PM V1-PT DECLINES REF TO TOBACCO CESS PRGM [place] [facility] Jun 04, 2016 02:01 PM V1-PT THINKING ABOUT QUIT TOBACCO USE [place] [facility] Jul 18, 2014 03:31 PM V1-PT DECLINES REF TO TOBACCO CESS PRGM [place] [facility] Jul 18, 2014 03:31 PM V1-PT [place] [facility] [place] [facility] Jul 18, 2014 03:31 PM V1-PT NOT INTERESTED IN QUIT TOBACCO USE [facility] Jan 09, 2014 10:43 AM CURRENT SMOKER pt smokes 1 pk of cigarettes per day. [facility] Jan 09, 2014 10:43 AM V1-PT THINKING ABOUT QUIT TOBACCO USE [facility] Aug 28, 2003 10:47 AM CURRENT SMOKER one pack q 6 days - he has cut down from 3 PPD. He is in the process of quitting [facility] Encounter Notes: All associated encounter notes This section contains the clinical notes associated to the Encounter. Date/Time Encounter Note(s) Provider Source Jun 03, 2024 03:21 PM CAREGIVER CERTIFIC ATE: LOCAL TITLE: CSP ADMINISTRATIVE NOTE STANDARD TITLE: CAREGIVER CERTIFICATE DATE OF NOTE: JUN 03, 2024@15:21 ENTRY DATE: JUN 03, 2024@15:21:22 AUTHOR: JESSICA CALLE EXP COSIGNER: URGENCY: STATUS: COMPLETED Computer Lab Assistant called 's /caregiver at . Computer Lab Assistant reached 's /caregiver. Computer Lab Assistant introduced herself and her role during their CSP PCAFC application process. Computer Lab Assistant and caregiver scheduled a CSP PCAFC and caregiver assessment on 06/14/24 @ 9am via [facility]. 's /caregiver agreed to contact this mortgage or loan underwriter if is hospitalized, and if she has any further questions and or concerns. /gaetano/ JESSICA HOUSER LCSW CAREGIVER SUPPORT DIRECTOR OF REHABILITATIVE SERVICES Signed: 06/03/2024 15:23 JESSICA CALLE [facility]
--- OUTSIDE RECORDS SUMMARY | 2024-12-21 11:58 | XMS_ITS | Encounter Summary ---
Author Name [place] Address [address] [place] [address] Care Team Providers Care Social Media Analyst Name Role Phone ELIZABET ROBINS Primary [...] [facility] CE ORGANIZAT ION MDIA [facility] AC Apr 18, 2018 [id number] [phone] WILLISEDILBERTOZA SPOUSE ANTHEM BCBS OF [place] (BLUECARD) HEALTH MAINTENAN CE ORGANIZAT ION MIIA [facility] Apr 18, 2018 [id number] WILLIS,MAR JUDITH SPOUSE BCBS [facility] CE ORGANIZ [facility] SHARE ACTIV E Apr 18, 2018 [id number] WILLIS,MAR JUDITH SPOUSE BCBS OF [facility] CE ORGANIZAT ION MIIA [facility] Apr 18, 2018 [id number] [phone] WILLIS,MAR JUDITH PATIENT BCBS OF [facility] CE ORGANIZAT ION BRENDA MCCABE [facility] Apr 18, 2018 [id number] WILLIS,MAR JUDITH SPOUSE BCBS OF [place] PREFERRED PROVIDER ORGANIZAT ION (PPO) BRENDA [facility] AC Apr 18, 2018 [phone] WILLIS,MAR JUDITH SPOUSE BCBS OF [facility] CE ORGANIZAT ION BRENDA [facility] ACT Apr 18, 2018 [id number] WILLIS,MAR JUDITH SPOUSE BCBS OF [facility] CE ORGANIZ BRENDA [facility] AC Apr 18, 2018 [id number] [phone] WILLIS,MAR JUDITH SPOUSE [place] PRESCRIPT ION RX Oct 19, 2022 RX22MC [id number] WILLIS,MAR JUDITH SPOUSE [place] PRESCRIPT ION [place] OF [place] Oct 19, 2022 RX22MA [id number] WILLIS, SPOUSE [place] PRESCRIPT ION RX22M A Oct 19, 2022 RX22MA [id number] WILILS,LAVELLE AEL PATIENT [place] PRESCRIPT ION RX22M B Oct 19, 2022 RX22MB [id number] WILLIS,LAVELEL AEL PATIENT [place] PRESCRIPT ION BRENDA MCCABE [facility] AC Oct 19, 2022 RX22MB [id number] [phone] WILLIS,LAVELLE AEL SPOUSE [place] PRESCRIPT ION MDTRISTEN [facility] Oct 19, 2022 RX22MB [id number] [phone] WILLIS,MAR JUDITH SPOUSE [place] ([id number]) PRESCRIPT ION [place] Oct 19, 2022 RX22MB [id number] [phone] WILLIS,MAR JUDITH SPOUSE [place] BCBS ([facility] CE ORGANIZAT ION [facility] RSD AC Apr 18, 2018 [id number] WILLISEDILBERTO SPOUSE [employer] ([id number]) PRESCRIPT ION Apr 18, 2018 L4TA [id number] WILLISEDILBERTO SPOUSE [employer] ([id number]) PRESCRIPT ION L4TA* Apr 18, 2018 L4TA [id number] WILLISEDILBERTO SPOUSE [employer] ([id number]) PRESCRIPT ION L4TA Apr 18, 2018 L4TA [id number] WILLISEDILBERTO SPOUSE [employer] ([id number]) PRESCRIPT ION Apr 18, 2018 L4TA [id number] WILLISEDILBERTO SPOUSE EXPRESS SCRIPTS-MINOR BROGATION PRESCRIPT ION [place] OF [place] Apr 18, 2020 L4TA [id number] [phone] WILLIS,EDILBERTO WONG SPOUSE [facility]) [facility] CE ORGANIZAT ION W/OUT OF NETWORK BENEFITS [facility] RSD ACT Apr 18, 2018 [id number] EDILBERTO PEDRO SPOUSE [place]IG[place] BCBS [facility] (BLUECARD) [facility] CE ORGANIZAT ION [facility] RSD AC Apr 18, 2018 [id number] EDILBERTO PEDRO SPOUSE MEDICARE (WNR) MEDICARE () PART A Mar 19, 1990 PART A [id number] [phone] [id number] LAVELLE PEDRO AEL PATIENT MEDICARE (WNR) MEDICARE () PART A Mar 19, 1990 PART A [id number] LAVELLE PEDRO AEL PATIENT MEDICARE (WNR) MEDICARE (M) PART A Mar 19, 1990 PART A [id number] LAVELLE PEDRO AEL PATIENT MEDICARE (WNR) MEDICARE (M) PART A Mar 19, 1990 PART A [id number] [phone] [id number] WILLIS,LAVELLE AEL PATIENT MEDICARE (WNR) MEDICARE (M) PART A Mar 19, 1990 PART A [id number] WILLIS,LAVELLE AEL PATIENT MEDICARE (WNR) MEDICARE (M) PART A Mar 19, 1990 PART A [id number] [phone] WILLIS,LAVELLE AEL PATIENT MEDICARE (WNR) MEDICARE (M) PART A Mar 19, 1990 PART A [id number] WILLIS,LAVELLE AEL PATIENT MEDICARE (WNR) MEDICARE (M) PART A Mar 19, 1990 PART A [id number] WILLIS,LAVELLE AEL PATIENT MEDICARE (WNR) MEDICARE (M) PART A Mar 19, 1990 PART A [id number] WILLIS,LAVELLE AEL PATIENT MEDICARE (WNR) MEDICARE (M) PART A Mar 19, 1990 PART A [id number] [phone] [id number] WILLIS,LAVELLE AEL PATIENT MEDICARE (WNR) MEDICARE (M) PART A Mar 19, 1990 PART A [id number] WILLIS,LAVELLE AEL PATIENT Selected Encounter This section includes the information on record at [place] for the Encounter. Date/Time Encounter Type Encounter Description Reason Provider Source Sep 21, 2024 09:00 AM MTMS BY AB [facility] ICD-10-CM E11.9 Type 2 diabetes mellitus without complications EMILY PERSON [facility] Encounter Template Text not used by [place] Assessments - Encounter Diagnoses This section includes the primary and secondary diagnoses documented for the Encounter. Date/Time Primary/Secondary Diagnosis Diagnosis Name Provider Source Sep 21, 2024 09:28 AM PRIMARY Type 2 diabetes mellitus without complications EMILY PERSON [facility] Plan of Treatment: Future Appointments (+ [...] 20 appointments. The data comes from all [place] treatment facilities. Appointment Date/Time Appointment Type Appointme nt Facility Name Nov 09, 2024 11:30 AM AMBULATORY - MEDICINE [place] [facility] Nov 28, 2024 09:30 AM AMBULATORY - MEDICINE [facility] [place] [facility] Dec 02, 2024 08:30 AM AMBULATORY - MEDICINE IN [facility] [place] [facility] Dec 15, 2024 10:30 AM AMBULATORY - MEDICINE IN [place] [facility] Dec 16, 2024 10:20 AM AMBULATORY - MEDICINE IN C [place] [facility] Mar 20, 2025 09:00 AM AMBULATORY - MEDICINE IN C [place] [facility] Lab Results: +/- 30 days of the encounter This section includes the Chemistry and Hematology Lab Results on record with [place] for the patient. Radiology Reports and Pathology Reports are provided separately, in subsequent sections. Lab Results This section contains the Chemistry/Hematology Results that were resulted 30 days before or 30 daysafter the date of the Encounter. Date/Time Source Result Type Result - Unit Interpretation Reference Range Comment Sep 21, 2024 10:35 AM [facility] MICROALBUMIN CREATININE RATIO PANEL Specimen Type: URINE No comment entered. Ordering Provider: EMILY PERSON Report Released Date/Time: Sep 21, 2024 09:08 AM Reporting Lab: [address] [address] Performing Lab: [address] [address] MICROALBUMIN/CR EATININE RATIO 7.3 mg/g 0-29.9 MICROALBUMIN,QU ANTITATIVE 0.6 mg/dL RR UNAVAIL CREATININE URINE 81.65 mg/dL Sep 21, 2024 09:30 AM [facility] PHENOBARBITAL (q) Specimen Type: SERUM Comment: Test Performed by Shai Dowd, [email or web address] [facility], [address] [place] [address] Danis Lewis M.D., Ph.D., Director of Laboratories , CLIA [id number] TEST PERFORMED AT: , Ordering Provider: EMILY PERSON Report Released Date/Time: Sep 21, 2024 09:08 AM Reporting Lab: [facility] [address] [facility] [address] Performing Lab: [facility] [address] [facility], [address] [place] [address] PHENOBARBITAL (q) 5.2 mg/L L 15.0-40.0 Sep 21, 2024 09:30 AM [facility] HEMOGLOBIN A1C PANEL Specimen Type: BLOOD Comment: Values obtained from A1C measurements can vary. For atypical A1C assays, a reported value of 7.0 could actually be between 6.72 and 7.28 if measured by a reference method. A reported value of 9.0 could actually be between 8.73 and 9.27. Ref: [email or web address] Ordering Provider: EMILY PERSON Report Released Date/Time: Sep 21, 2024 09:08 AM Reporting Lab: [facility] [address] [facility] [address] Performing Lab: [address] [address] HEMOGLOBIN A1C 6.1 H 4.0-5.6 Sep 21, 2024 09:30 AM [facility] LIVER FUNCTION Specimen Type: SERUM No comment entered. Ordering Provider: EMILY PERSON Report Released Date/Time: Sep 21, 2024 09:08 AM Reporting Lab: [facility] [address] [facility] [address] Performing Lab: [address] [address] PROTEIN,TOTAL 7.8 g/dL 6.0-8.3 ALBUMIN 4.4 g/dL 3.5-5.0 ALKALINE PHOSPHATASE 89 U/L 40-150 AST 42 U/L H 5-34 ALT 52 U/L BILIRUBIN, TOTAL 0.3 mg/dL 0.2-1.2 Sep 21, 2024 09:30 AM [facility] BASIC METABOLIC PANEL (non-fasting) Specimen Type: SERUM No comment entered. Ordering Provider: EMILY PERSON Report Released Date/Time: Sep 21, 2024 09:08 AM Reporting Lab: [facility] [address] [facility] [address] Performing Lab: [facility] [address] [facility] [address] UREA NITROGEN 10 mg/dL 7-25 GLUCOSE 107 [...] took place. Date/Time Current Smoking Status Comment [facility] Nov 27, 2023 11:00 AM VA-TOBACCO FORMER USER [facility] Tobacco Use History This section includes a history of the smoking, or tobacco-related health factors, that were collected on or before the date of the Encounter. The data comes from the [place] facility where the Encounter took place. Date/Time Smoking Status/Tobac co Use Comment Facility Nov 27, 2023 11:00 AM VA-TOBACCO QUIT 15 [facility] Dec 02, 2022 08:00 AM VA-TOBACCO FORMER USER IN [place] [facility] Dec 02, 2022 08:00 AM VA-TOBACCO QUIT 15 YRS OR MORE IN [place] [facility] Nov 05, 2021 10:30 AM [facility] Nov 05, 2021 10:30 AM VA-TOBACCO QUIT 1 TO < 5 [facility] Sep 14, 2020 02:00 PM [...] EXP COSIGNER: URGENCY: STATUS: COMPLETED CHAYA PEDRO [address], [place], [address] Date: SEP 26, 2024 Dear CHAYA PEDRO, Your recent tests at the [place] were reviewed by your clinician. The items [...] adjustment as needed. Respectfully, Emily Person PharmD, [facility] ELLE PRESSLEY IN [place] [facility] Sep 21, 2024 08:59 AM PHARMACY OUTPATIEN T NOTE: LOCAL TITLE: [...] Chaya Pedro : 1955 ID: Information from [employer] [facility] on 06/01/2024 Patient Name: [...] 01:02 PM 115 End of information from [employer] [facility] Date FBG 06/24/2024 145 [...] the development of this plan, involving the Idabel, clinician, and any caregivers present. The Idabel was provided the opportunity express questions or [...] Discontinue or remove medication /gaetano/ EMILY PERSON PHARMD,[facility] CLINICAL PHARMACY PRACTITIONER Signed: 09/21/2024 09:28 EMILY PERSON [facility]
--- OUTSIDE RECORDS SUMMARY | 2024-12-21 11:58 | XMS_ITS | Encounter Summary ---
Author Name [facility] Organization [facility] [place] Address [address] [place] [address] Care Team Providers Care Spanish Moss Picker Name Role Phone BERE RIOS Primary Care [...] [facility] CE ORGANIZAT ION [facility] AC Apr 18, 2018 [id number] WILLISEDILBERTO LynnZA SPOUSE ANTHEM [place] OF [place] ([place]) HEALTH [facility] CE ORGANIZAT ION [facility] Apr 18, 2018 [id number] WILLIS,EDILBERTO SOTELOZA SPOUSE BCBS [facility] ORGANIZ [facility] SHARE ACTIV E Apr 18, 2018 [id number] [phone] WILLIS,MAR JUDITH SPOUSE BCBS [facility]GANIZ[facility] ION [facility] Apr 18, 2018 [id number] [phone] WILLIS,MAR JUDITH PATIENT BCBS OF [facility] CE ORGANIZAT ION BRENDA MCCABE RSD Apr 18, 2018 [id number] WILLIS,MAR JUDITH SPOUSE BCBS OF [place] PREFERRED PROVIDER ORGANIZAT ION (PPO) [facility] AC Apr 18, 2018 [id number] WILLIS,MAR JUDITH SPOUSE BCBS OF [facility] CE ORGANIZAT ION BRENDA MCC[facility] R[facility] ACT Apr 18, 2018 [id number] WILLIS,MAR JUDITH SPOUSE BCBS OF [facility] CE ORGANIZ BRENDA MCCABE RSD AC Apr 18, 2018 [id number] [phone] WILLIS,MAR JUDITH SPOUSE [place] PRESCRIPT ION [facility] Oct 19, 2022 [id number] [phone] WILLIS,MAR JUDITH SPOUSE [place] PRESCRIPT ION RX22M A Oct 19, 2022 RX22MA [id number] WILLIS,LAVELLE AEL PATIENT [place] PRESCRIPT ION RX22M B Oct 19, 2022 [id number] [id number] WILLIS,ALVELLE AEL PATIENT [place] PRESCRIPT ION [place] Oct 19, 2022 RX22MA [id number] [phone] WILLIS, SPOUSE [place] PRESCRIPT ION BRENDA MCC[facility] RSD AC Oct 19, 2022 RX22MB [id number] [phone] WILLIS,LAVELLE AEL SPOUSE [place] PRESCRIPT ION RX Oct 19, 2022 RX22MC [id number] [phone] WILLIS,MAR JUDITH SPOUSE [place] ([id number]) PRESCRIPT I[place] Oct 19, 2022 [id number] [phone] WILLIS,MAR JUDITH SPOUSE [place] BC[place] ([facility] CE ORGANIZAT ION [facility] RSD AC Apr 18, 2018 [id number] [phone] WILLISEDILBERTO SPOUSE [employer] ([id number]) PRESCRIPT ION Apr 18, 2018 L4TA [id number] WILLISEDILBERTO SPOUSE [employer] ([id number]) PRESCRIPT ION L4TA Apr 18, 2018 L4TA [id number] WILLIS,EDILBERTO WONG SPOUSE [employer] ([id number]) PRESCRIPT ION L4TA* Apr 18, 2018 L4TA [id number] [id number] WILLISEDILBERTO SPOUSE [employer] ([id number]) PRESCRIPT ION Apr 18, 2018 L4TA [id number] WILLISEDILBERTO SPOUSE [employer]-MINOR BROGATION PRESCRIPT ION [place] Apr 18, 2020 L4TA [id number] [phone] WILLIS,EDILBERTO WONG SPOUSE [employer] ([facility]) [facility] CE ORGANIZAT ION W/OUT OF NETWORK BENEFITS [facility] RSD ACT Apr 18, 2018 [id number] EDILBERTO PEDRO SPOUSE [facility] CE ORGANIZAT ION [facility] RSD AC Apr 18, 2018 [id number] EDILBERTO PEDRO SPOUSE MEDICARE (WNR) MEDICARE () PART A Mar 19, 1990 PART A [id number] [phone] WILLISLAVELLE LEIVA AEL PATIENT MEDICARE (WN) MEDICARE () PART A Mar 19, 1990 PART A [id number] WILLISLAVELLE AEL PATIENT MEDICARE (WNR) MEDICARE () PART A Mar 19, 1990 PART A [id number] [phone] [id number] WILLIS,LAVELLE AEL PATIENT MEDICARE (WNR) MEDICARE () PART A Mar 19, 1990 PART A [id number] WILLIS,LAVELLE AEL PATIENT MEDICARE (WNR) MEDICARE (M) PART A Mar 19, 1990 PART A [id number] WILLIS,LAVELLE AEL PATIENT MEDICARE (WNR) MEDICARE (M) PART A Mar 19, 1990 PART A [id number] WILLIS,LAVELLE AEL PATIENT MEDICARE (WNR) MEDICARE (M) PART A Mar 19, 1990 PART A [id number] WILLIS,LAVELLE AEL PATIENT MEDICARE (WNR) MEDICARE (M) PART A Mar 19, 1990 PART A [id number] [id number] [id number] WILLIS,LAVELLE AEL PATIENT MEDICARE (WNR) MEDICARE (M) PART A Mar 19, 1990 PART A [id number] [phone] WILLIS,LAVELLE AEL PATIENT MEDICARE (WNR) MEDICARE (M) PART A Mar 19, 1990 PART A [id number] [phone] WILLIS,LAVELLE AEL PATIENT MEDICARE (WNR) MEDICARE (M) PART A Mar 19, 1990 PART A [id number] [phone] WILLIS,LAVELLE AEL PATIENT Selected Encounter This section includes the information on record at [place] for the Encounter. Date/Time Encounter Type Encounter Description Reason Pro vider Source Jun 03, 2024 02:57 PM Outpatient Encounter ADMIN PAT ACTIVTIES (MASNONCT) IHE Encounter Template Text not used by [place] Plan of Treatment: Future Appointments (+ 6 months) and Future Tests (+/- 45 days) The Plan of Treatment section includes future care activities for the patient from all [place] treatmentfacilities. This section includes future appointments and [...] 28, 2024 11:30 AM AMBULATORY - MEDICINE [facility] Jul 08, 2024 10:30 AM AMBULATORY MEDICINE [facility] Jul 13, 2024 09:30 AM AMBULATORY - MEDICINE [place] [facility] [place] [facility] Aug 12, 2024 09:30 AM AMBULATORY - MEDICINE [place] [facility] [place] [facility] Aug 22, 2024 09:00 AM AMBULATORY - MEDICINE [place] [facility] [place] [facility] Sep 21, 2024 09:00 AM AMBULATORY - MEDICINE [place] [facility] [place] [facility] Sep 21, 2024 10:00 AM AMBULATORY - MEDICINE [place] [facility] [place] [facility] Nov 09, 2024 11:30 AM AMBULATORY - MEDICINE [place] [facility] [place] [facility] Nov 28, 2024 09:30 AM AMBULATORY - MEDICINE [place] [facility] [place] [facility] Dec 02, 2024 08:30 AM AMBULATORY - MEDICINE [place] [facility] [place] [facility] Lab Results: +/- 30 days [...] 01, 2024 12:25 PM [facility] MICROALBUMIN CREATININE RATIO PANEL Specimen Type: URINE No comment entered. Ordering Provider: LINDA PERSON Report Released Date/Time: Jun 01, 2024 11:53 AM Reporting [facility]: [facility] [address] [address] Performing Lab: [facility] [address] [address] MICROALBUMIN/C REATININE RATIO 10.8 mg/g 0-29.9 MICROALBUMIN,Q UANTITATIVE 1.1 mg/dL RR UNAVAIL CREATININE URINE 101.63 mg/dL Jun 01, 2024 10:38 AM [facility] HEMOGLOBIN A1C PANEL Specimen Type: BLOOD [...] May 30, 2024 10:29 AM Reporting Lab: [facility] [address] [facility] [address] Performing Lab: [address] [address] HEMOGLOBIN A1C 5.8 H 4.0-5.6 Jun 01, 2024 10:38 AM [facility] BASIC METABOLIC PANEL (non-fasting) Specimen Type: SERUM No comment entered. Ordering Provider: LINDA PERSON Report Released Date/Time: May 30, 2024 10:29 AM Reporting Lab: [address] [address] Performing Lab: [address] [address] UREA NITROGEN 13 mg/dL 7-25 GLUCOSE 115 mg/dL H 65-100 SODIUM 140 mmol/L 135-145 POTASSIUM 4.3 mmol/L 3.5-5.0 CHLORIDE 107 mmol/L 100-110 CO2 21 meq/L 20-30 CREATININE, Serum 0.84 mg/dL 0.50-1.40 eGFR(CKD-EPI 2020) >90 mL/min >60 Jun 01, 2024 10:38 AM [facility] LIPID PANEL, NON FASTING Specimen Type: SERUM No comment entered. Ordering Provider: LINDA PERSON Report Released Date/Time: Jun 01, 2024 10:12 AM Reporting Lab: [address] [address] Performing Lab: [address] [address] CHOLESTEROL 126 mg/dL TRIGLYCERIDE 114 mg/dL 0-150 [...] 27, 2023 11:00 AM VA-TOBACCO FORMER USER [facility] Tobacco Use History This section includes a history of the smoking, or tobacco-related health factors, that were collected on or before the date of the Encounter. The data comes from the [place] facility where the Encounter took place. Date/Time Smoking Status/Tobac co Use Comment Facility Nov 27, 2023 11:00 AM VA-TOBACCO QUIT 15 YRS OR MORE [place] [facility] [place] [facility] Dec 02, 2022 08:00 AM VA-TOBACCO FORMER USER [place] [facility] [place] [facility] Dec 02, 2022 08:00 AM VA-TOBACCO QUIT 15 YRS OR MORE [place] [facility] [place] [facility] Nov 05, 2021 10:30 AM VA-TOBACCO FORMER USER [place] [facility] [place] [facility] Nov 05, 2021 10:30 AM VA-TOBACCO QUIT 1 TO < 5 YRS [place] [facility] [place] [facility] Sep 14, 2020 02:00 PM VA-TOBACCO FORMER USER [place] [facility] [place] [facility] Sep 14, 2020 02:00 PM VA-TOBACCO QUIT 5 TO < 15 YRS [place] [facility] [place] [facility] Jan 22, 2018 03:40 PM QUIT TOBACCO USE > 7 YEARS AGO [place] [facility] [place] [facility] Jun 04, 2016 02:01 PM CURRENT SMOKER been smoking pass 20 yrs [place] [facility] [place] [facility] Jun 04, 2016 02:01 PM V1-PT DECLINES REF TO TOBACCO CESS PRGM [place] [facility] [place] [facility] Jun 04, 2016 02:01 PM V1-PT THINKING ABOUT QUIT TOBACCO USE [place] [facility] [place] [facility] Jul 18, 2014 03:31 PM V1-PT DECLINES REF TO TOBACCO CESS PRGM [place] [facility] [place] [facility] Jul 18, 2014 03:31 PM V1-PT DECLINES [facility]ACCO [facility] Jul 18, 2014 03:31 PM V1-PT NOT INTERESTED IN QUIT TOBACCO USE [facility] Jan 09, 2014 10:43 AM CURRENT SMOKER pt smokes 1 pk of cigarettes per day. [facility] Jan 09, 2014 10:43 AM V1-PT THINKING ABOUT QUIT TOBACCO USE [facility] Aug 28, 2003 10:47 AM CURRENT SMOKER one pack q 6 days - he has cut down from 3 PPD. He is in the process of quitting [facility] Encounter Notes: All associated encounter [...] Caregiver Support Program (CSP) collaborates with the [place]'s Primary Care Team to the maximum extent practicable. Primary Care Team means one or more medical certification specialist who care for a patient based on the clinical needs of the patient. Primary Care Teams must include a [place] Primary Care Provider who is a physician, advanced practice nurse or a physician accounting administrative assistant. The CSP is seeking input and/or sharing documentation such as comprehensive assessments or progress notes that discuss ADL needs and/or supervision, protection or instruction needs; or a treatment plan. Primary Care Team members are not responsible for determining eligibility for the PCAFC. Documentation for collaboration should be within twelve months from the valid application received date or reassessment date, as applicable. [place] Name: CHAYA PEDRO Valid application received date or reassessment date, as applicable: May [facility] staff collaborated (via email, phone, in-person) with [...] prostate cancer 20. Schizoaffective disorder (SNOMED CT 70414114) 21. Alcohol dependence (SNOMED CT 72919747) 22. Periodontal Disease NEC 23. GERD 24. [...] needs help with filling his pill box. is able to understand the current treatment plan:* Yes [place] has potential for improvement in functioning:* No Additional details: no additional details provided Caregiver is actively involved in the care of the :* Yes Describe caregiver's involvement: Bere Rios NP reports, Caregiver is always with the , also helps with bathing, dressing, cooking, all IADLs, and driving. Caregiver is able to follow the current treatment plan:* Yes The care needs of the [place] can be safely provided in a home setting:* Yes The [place] is being recommended for institutional care:* No [...] in their determination of 's eligibility: Bere Rios, KAREEM, 's assigned primary care provider provided the [...] negative) /gaetano/ JESSICA HOUSER LCSW CAREGIVER SUPPORT EMPLOYEE RELATIONS SPECIALIST Signed: 06/03/2024 15:10 Receipt Acknowledged By: 06/03/2024 15:12 /CIERRA Waller Nurse Practitioner [facility]
--- OUTSIDE RECORDS SUMMARY | 2024-12-21 11:58 | XMS_ITS | Encounter Summary ---
Author Name [facility] [place] Address [address] [place] [address] Care Team Providers Care Organic Section Technical Lead Name Role Phone ELIZABET ROBINS Primary Care [...] Policy Paul [facility] CE ORGANIZAT ION MSIA [facility] AC Apr 18, 2018 [id number] [phone] WILLISEDILBERTO LynnZA SPOUSE ANTHEM BCBS OF [place] (BLUECARD) HEALTH MAINTENAN CE ORGANIZAT ION [facility] Apr 18, 2018 [id number] WILLIS,EDILBERTO MANCIAZA SPOUSE BCBS [facility] CE ORGANIZ [facility] ACTIV E Apr 18, 2018 [id number] WILLIS,MAR JUDITH SPOUSE BCBS OF [facility] ION [facility]IIA [facility] Apr 18, 2018 [id number] [phone] WILLIS,MAR JUDITH PATIENT BCBS OF [facility] CE ORGANIZAT ION BRENDA MCCABE RSD Apr 18, 2018 [id number] WILLIS,MAR JUDITH SPOUSE BCBS OF [place] PREFERRED PROVIDER ORGANIZAT ION (PPO) BR[facility]DA [facility] AC Apr 18, 2018 [id number] WILLIS,MAR JUDITH SPOUSE BCBS OF [facility] CE ORGANIZAT ION BRENDA MCCABE RSD ACT Apr 18, 2018 [id number] WILLIS,EDILBERTO JUDITH SPOUSE BCBS OF [facility] CE ORGANIZ [facility] RSD AC Apr 18, 2018 [id number] [phone] WILLIS,MAR JUDITH SPOUSE [place] PRESCRIPT ION [facility] O Oct 19, 2022 [id number] WILLIS,MAR JUDITH SPOUSE [place] PRESCRIPT ION RX22M A Oct 19, 2022 RX22MA [id number] WILLIS,LAVELLE AEL PATIENT [place] PRESCRIPT ION RX22M B Oct 19, 2022 RX22MB [id number] WILLIS,LAVELLE AEL PATIENT [place] PRESCRIPT ION [facility] AC Oct 19, 2022 RX22MB [id number] [phone] WILLIS,LAVELLE AEL SPOUSE [place] PRESCRIPT ION RX Oct 19, 2022 RX22MC [id number] [id number] [phone] WILLIS,MAR JUDITH SPOUSE [place] PRESCRIPT ION BCBS OF [place] Oct 19, 2022 RX22MA [id number] WILLIS, SPOUSE [place] ([id number]) PRESCRIPT ION BCBS OF [place] Oct 19, 2022 [id number] [phone] WILLIS,MAR JUDITH SPOUSE [place] BCBS ([facility] CE ORGANIZAT ION [facility] AC Apr 18, 2018 [id number] WILLISEDILBERTO SPOUSE [employer] ([id number]) PRESCRIPT ION Apr 18, 2018 L4TA [id number] WILLISEDILBERTO SPOUSE [employer] ([id number]) PRESCRIPT ION L4TA Apr 18, 2018 L4TA [id number] WILLIS,EDILBERTO WONG SPOUSE [employer] ([id number]) PRESCRIPT ION L4TA* Apr 18, 2018 L4TA [id number] WILLISEDILBERTO SPOUSE [employer] ([id number]) PRESCRIPT ION Apr 18, 2018 L4TA [id number] WILLISEDILBERTO Lynn SPOUSE [employer]-MINOR BROGATION PRESCRIPT ION BCBS OF [place] Apr 18, 2020 L4TA [id number] [phone] WILLIS,EDILBERTO WONG SPOUSE [employer] ([facility] CE ORGANIZAT ION W/OUT OF NETWORK BENEFITS [facility] RSD ACT Apr 18, 2018 [phone] EDILBERTO PEDRO SPOUSE [facility] CE ORGANIZAT ION [facility] RSD AC Apr 18, 2018 [id number] WILLISEDILBERTO SPOUSE MEDICARE (WNR) MEDICARE () PART A Mar 19, 1990 PART A [id number] WILLISLAVELLE AEL PATIENT MEDICARE (WNR) MEDICARE () PART A Mar 19, 1990 PART A [id number] WILLIS,LAVELLE AEL PATIENT MEDICARE (WNR) MEDICARE () PART A Mar 19, 1990 PART A [id number] WILLIS,LAVELLE AEL PATIENT MEDICARE (WNR) MEDICARE () PART A Mar 19, 1990 PART A [id number] WILLISLAVELLE AEL PATIENT MEDICARE (WNR) MEDICARE (M) PART A Mar 19, 1990 PART A [id number] [phone] WILLISLAVELLE AEL PATIENT MEDICARE (WNR) MEDICARE (M) PART A Mar 19, 1990 PART A [id number] WILLIS,LAVELLE AEL PATIENT MEDICARE (WNR) MEDICARE (M) PART A Mar 19, 1990 PART A [id number] [phone] WILLIS,LAVELLE AEL PATIENT MEDICARE (WNR) MEDICARE (M) PART A Mar 19, 1990 PART A [id number] WILLIS,LAVELLE AEL PATIENT MEDICARE (WNR) MEDICARE (M) PART A Mar 19, 1990 PART A [id number] WILLISLAVELLE AEL PATIENT MEDICARE (WNR) MEDICARE (M) PART A Mar 19, 1990 PART A [id number] WILLISLAVELLE AEL PATIENT MEDICARE (WNR) MEDICARE (M) PART A Mar 19, 1990 PART A [id number] WILLISLAVELLE AEL PATIENT Selected Encounter This [...] activities for the patient from all [place] treatmentfacilities. This section includes future appointments and [...] 28, 2024 11:30 AM AMBULATORY - MEDICINE [facility] Jul 08, 2024 10:30 AM AMBULATORY MEDICINE [facility] Jul 13, 2024 09:30 AM [facility] [place] [facility] Aug 12, 2024 09:30 AM [facility] [place] [facility] Aug 22, 2024 09:00 AM [facility] [place] [facility] Sep 21, 2024 09:00 AM [facility]ORY [facility] [place] [facility] Sep 21, 2024 10:00 AM AM[facility]ULATORY [facility]IC[facility] [place] [facility] Nov 09, 2024 11:30 AM [facility] [place] [facility] Nov 28, 2024 09:30 AM [facility] [place] [facility] Dec 02, 2024 08:30 AM AM[facility]ORY [place] [facility] [place] [facility] Dec 15, 2024 10:30 AM [place] [facility] [place] [facility] Dec 16, 2024 10:20 AM [place] [facility] [place] [facility] Lab Results: +/- 30 days [...] Range Comment Jun 01, 2024 12:[facility] MICROALBUMIN CREATININE RATIO PANEL Specimen Type: URINE No comment entered. Ordering Provider: LINDA PERSON Report Released Date/Time: Jun 01, 2024 11:53 AM Reporting Lab: [place] [facility] [place] [facility] [address] [facility] [address] Performing Lab: [place] [facility] [place] [facility] [address] [facility] [address] MICROALBUMIN/C REATININE RATIO 10.8 mg/g 0-29.9 MICROALBUMIN,Q UANTITATIVE 1.1 mg/dL RR UNAVAIL CREATININE URINE 101.63 mg/dL Jun 01, 2024 10:38 AM [facility] HEMOGLOBIN A1C PANEL Specimen Type: [...] May 30, 2024 10:29 AM Reporting Lab: [address] [address] Performing Lab: [address] [address] HEMOGLOBIN A1C 5.8 H 4.0-5.6 Jun 01, 2024 10:38 AM [facility] BASIC METABOLIC PANEL (non-fasting) Specimen Type: SERUM No comment entered. Ordering Provider: LINDA PERSON Report Released Date/Time: May 30, 2024 10:29 AM Reporting Lab: [address] [address] Performing Lab: [address] [address] UREA NITROGEN 13 mg/dL 7-25 GLUCOSE 115 mg/dL H 65-100 SODIUM 140 mmol/L 135-145 POTASSIUM 4.3 mmol/L 3.5-5.0 CHLORIDE 107 mmol/L 100-110 CO2 21 meq/L 20-30 CREATININE, Serum 0.84 mg/dL 0.50-1.40 eGFR(CKD-EPI 2020) >90 mL/min >60 Jun 01, 2024 10:38 AM [facility] LIPID PANEL, NON FASTING Specimen Type: SERUM No comment entered. Ordering Provider: LINDA PERSON Report Released Date/Time: Jun 01, 2024 10:12 AM Reporting Lab: [address] [address] Performing Lab: [address] [address] CHOLESTEROL 126 mg/dL TRIGLYCERIDE 114 mg/dL 0-150 [...] 27, 2023 11:00 AM [place] [facility] [facility] Tobacco Use History This section includes a history of the smoking, or tobacco-related health factors, that were collected on or before the date of the Encounter. The data comes from the [place] facility where the Encounter took place. Date/Time Smoking Status/Tobac co Use Comment [facility] Nov 27, 2023 11:00 AM VA-TOBACCO QUIT 15 YRS OR MORE [place] [facility] [place] [facility] Dec 02, 2022 08:00 AM VA-TOBACCO FORMER USER [place] [facility] [place] [facility] Dec 02, 2022 08:00 AM VA-TOBACCO QUIT 15 YRS OR MORE [place] [facility] [place] [facility] Nov 05, 2021 10:30 AM VA-TOBACCO FORMER USER [place] [facility] [place] [facility] Nov 05, 2021 10:30 AM VA-TOBACCO QUIT 1 TO < 5 YRS [place] [facility] [place] [facility] Sep 14, 2020 02:00 PM VA-TOBACCO FORMER USER [place] [facility] [place] [facility] Sep 14, 2020 02:00 PM VA-TOBACCO QUIT 5 TO < 15 YRS [place] [facility] [place] [facility] Jan 22, 2018 03:40 PM QUIT TOBACCO USE > 7 YEARS AGO [place] [facility] [place] [facility] Jun 04, 2016 02:01 PM CURRENT SMOKER been smoking pass 20 yrs [place] [facility] [place] [facility] Jun 04, 2016 02:01 PM V1-PT DECLINES REF TO TOBACCO CESS PRGM [place] [facility] [place] [facility] Jun 04, 2016 02:01 PM V1-PT THINKING ABOUT QUIT TOBACCO USE [place] [facility] [place] [facility] Jul 18, 2014 03:31 PM [...] BARNES COSIGNER: URGENCY: STATUS: COMPLETED Chaya Pedro [address] [place] [phone] 06/23/2024 Dear Chaya Pedro: Thank you for your interest in the Program of Comprehensive Assistance for Family Caregivers (PCAFC). We have made a decision on your [place] Form 10-10CG PCAFC application that was received [...] you and each Family Caregiver identified on [place] Form 10-10CG do not meet the current eligibility requirements for PCAFC and your application is denied. EXPLANATION OF DECISION PCAFC eligibility requirements can be found in 38 U.S.C. 1720G, Assistance and Support Services for Caregivers, and 38 C.F.R. Part 71, Caregivers Benefits and Certain Medical Benefits Offered to Family Members of Veterans. For the purposes of this letter, the term [place] means an eligible [place] of the Armed Forces or an eligible science faculty member of the Armed Forces who has [...] more of the below reasons: * The [place] applicant is not in need of personal [...] Assistance for Family Caregivers, dated 06/02/2024. * [place] Intake, dated 06/03/2024. * Assessment, dated 06/14/2024. * [place] Functional Assessment, dated 06/22/2024. * Caregiver Assessment, dated 06/14/2024. * Primary Care Collaboration, dated 06/03/2024. * VA Medical Records, dated 06/23/2022-06/23/2024 Nursing note 03/14/2022, Nurse Practitioner Note 06/11/2024. * Non-VA Medical Records, including [facility] Non VA ER visit 04/19/2024, 04/22/2024, Urology 02/28/2024. * VA VBA Records, including Rating Decision Code Sheet 04/27/2012 21-22 12/14/1989. PROGRAM REQUIREMENTS AND FINDINGS Below are the program eligibility requirements for Veterans and Family Caregivers for participation in the Program of Comprehensive Assistance for Family Caregivers, with notation if the requirement was met or unmet. FINDINGS Evaluation of initial and ongoing PCAFC eligibility requires comprehensive assessment of the [place] and Family Caregiver(s) or Applicant(s). Over time, the needs and circumstances of Veterans and caregivers change, therefore, an eligible [place] or Family Caregiver's eligibility may also change [...] apply to circumstances that are subject to pack changer time. Thus, in the future, these findings will require re-evaluation. * The applicant is a , or a member of the Armed Forces undergoing medical discharge from the Armed Forces. The term [place] means a person who served in the active , naval, air, or space service, and who was discharged or released therefrom under conditions other than dishonorable. The term undergoing medical discharge means the science faculty member has been found unfit for duty due to a medical condition by their Service's Physical Evaluation Board, and a date of medical discharge has been issued. o Requirement met due to the applicant is a [place], or a member of the Armed Forces undergoing medical discharge from the Armed Forces. * The [place] applicant has a serious injury incurred or [...] VA. o Requirement met due to the [place] incurred or aggravated a serious injury in the line of duty. The has a Single service-connected disability rating of 100% assigned by VA. * The applicant resides in a State. The term State means each of the several States, Territories, and possessions of the [place], the [place], and the [facility]. o Requirement met due to the applicant residing in [place], [place]. * The [place] applicant is in need of personal care [...] o Requirement unmet due to: ? The [place] applicant is not in need of personal [...] requires personal care services each time the [place] applicant completes one or more of the following ADLs: ? Requirement unmet 1. Feeding oneself due to loss of coordination of upper extremities, extreme weakness, inability to swallow, or the need for a non-oral means of nutrition: ? Requirement unmet due to Requirement unmet. When determining PCAFC eligibility for the ADL of feeding/eating, a [place] must require hands-on assistance with feeding oneself due to loss of coordination of upper extremities, extreme weakness, inability to swallow, or need for a non-oral means of nutrition bringing food and/or liquid to the mouth each time the activity is performed. Per VFAI, is able to eat with set up/clean [...] eligibility for the ADL of grooming, a [place] must require hands-on assistance with completing both oral hygiene and washing upper body areas each time grooming is completed. Per AI, [place] is able to complete oral care with setup/clean up, and washes upper body in shower. (AI 05/24/2024). This is consistent with record review (AI 06/22/2024, [place] Assessment 06/14/2024). Additionally, set or clean-up assistance is not considered or defined as hands-on assistance and does not meet the PCAFC eligibility criteria for this ADL. Taken as a whole, the documents reviewed does not support that the [place] had a functional impairment that requires hands-on assistance with this ADL each time the activities were performed for six continuous months. 3. Bathing: ? Requirement unmet due to Requirement unmet. When determining PCAFC eligibility for the ADL of bathing, a [place] must require hands-on assistance with washing, rinsing, and drying each time this activity is completed.. Per AI, [place] is able to complete bathing independently. makes use of grab bars and shower chair. This is consistent with record review (AI 06/22/2024, [place] Assessment 06/14/2024). Additionally, set or clean-up assistance is not considered or defined as hands-on assistance and does not meet the PCAFC eligibility criteria for this ADL. Taken as a whole, the documents reviewed does not support that the [place] had a functional impairment that requires hands-on assistance with this ADL each time the activities were performed for six continuous months. 4. Dressing or undressing oneself: ? Requirement unmet due to Requirement, unmet. When determining PCAFC eligibility for the ADL of dressing, a must require hands-on assistance each time the [...] ADL. This is consistent with record review ([facility] 06/22/2024). Taken as a whole, the documents [...] consistent with record review (AI 06/22/2024, Assessment 06/14/2024. The documents reviewed do not support that the [place] had a functional impairment that requires hands-on [...] back, etc.): ? Requirement unmet due to does not use a prosthetic or orthopedic appliance. 7. Mobility (walking, going up stairs, transferring from bed to chair, etc.): ? Requirement met due to Requirement unmet. When determining PCAFC eligibility for the ADL of mobility, a [place] must require hands-on assistance every time the activities involved in mobility are performed. Per VFAI, [place] is independent with transfers and ambulating . [place] has episodes of unsteadiness and occasional falls related to diagnosis of seizure disorder and vision problems. ([facility]). Per primary care, has been seizure free for last few years and no history of recent falls (Primary Care Collaboration ). Taken as a whole, the documents reviewed do not support that the had a functional impairment that requires hands- on assistance with this ADL each time the activities were performed for six continuous months. o The [place] applicant has a need for supervision or protection based on symptoms or residual of neurological or other impairment or injury: ? Requirement unmet due to Requirement unmet. When [facility] for a need for supervision or protection based on symptoms or residuals of neurological or other impairment or injury, there is consideration for documentation of medical, neurocognitive, and/or psychiatric conditions which resulted in functional impairments requiring supervision or protection. has not been diagnosed with a neurocognitive disorder. Per VFAI [place] can take medication with set up assistance, [...] Practitioner outpatient 06/01/2024). Taken as a whole, [place] does not meet eligibility criteria for a need for supervision or protection based on symptoms or residuals of neurological or other impairment or injury. o The applicant has a need for regular or extensive instruction or supervision without which the ability of the [place] to function in daily life would be seriously impaired: ? Requirement unmet due to Requirement Unmet. When considering [facility] eligibility for a need for regular or extensive supervision or instruction, we take into consideration documentation of functional impairments impacting daily life, including the frequency and severity of need for in-person supervision or instruction. is able to understand his treatment plan, and does not have a fiduciary or guardian (Primary Care collaborative 06/03/2024, [place] Assessment 06/03/2024). [place] does not need stand by or continuous cueing, supervision or instruction and is able to a use phone to call 911 in an emergency as needed. While spouse has concerns about leaving [place] alone due to falls, there were not documentation of recent or consistent falls or recent falls with injury. Last fall documented 03/12/2022 (Nursing note 03/14/2022, Primary Care Collaboration 06/03/2024, Nurse Practitioner Note 06/11/2024). Taken together, there is no documentation of functional impairments that met the threshold of PCAFC eligibility criteria that demonstrates that requires supervision or instruction. As above, [place] drives, can be alone, and go out alone. As such, does not need regular or extensive instruction or supervision without which their ability to function in daily life would be seriously impaired, and thus is found ineligible for this criterion. FAMILY CAREGIVER FINDINGS * The Family Caregiver applicant resides in a State. The term State means each of the several States, Territories, and st[facility] of the [facility], the [facility], and the [facility]. o Requirement met due to the Family Caregiver applicant residing in a State . * The Family Caregiver applicant is the eligible 's spouse, son, daughter, parent, stepfamily member, extended family member, or someone who lives with the eligible [place] full-time or will do so if designated as a Family Caregiver. o Requirement met due to the Family Caregiver is a spouse, son, daughter, parent, stepfamily member, extended family member, or someone who lives with the eligible [place] full-time or will do so if designated as a Family Caregiver. * The Family Caregiver applicant is 18 years of age or older. o Requirement met due to the Family Caregiver applicant is 18 years of age or older. * There is no determination by VA of abuse or neglect of the eligible by the Family Caregiver applicant. o Requirement [...] is in the best interest of the [place] applicant to participate in the program. In the best interest is a clinical determination that participation in the program is likely to be beneficial to the . Such determination includes consideration, by a clinician, of whether participation in the program: o Significantly enhances the 's ability to live safely in a home setting; o Supports the [place]'s potential progress in rehabilitation, if such potential exists; o Increases the 's potential independence, if such potential exists; and/or o Creates an environment that supports the health and well-being of the [place]. * The personal care services that would be provided by the Family Caregiver applicant will not be simultaneously and regularly provided by or through another individual or entity. * The [place] applicant receives care at home or will do so if [place] designates a Family Caregiver. * The [place] applicant receives ongoing care from a primary care team or will do so if [place] designates a Family Caregiver. Primary care team means one or more medical records coder who care for a patient based on the clinical needs of the patient. Primary care teams must include a [place] primary care provider who is a physician, advanced practice nurse, or a physician employment legal assistant. * Your Family Caregiver applicant has not [...] decision the following ways. If you utilize [employer], you may access your records through that system. You may also request a copy of your records by submitting a signed and completed VA Form 10-5345a, Individuals' Request for a Copy of Their Own Health Information, to the Cryptographic Clerk at your local [place] medical facility. VA Form 10-5345a can be found at www.va.gov/vaforms/medical/ pdf/VHA% 20Form%[id number]-re vision.pdf. WHAT TO DO IF YOU DISAGREE WITH THE DECISION If you disagree with this decision, you have the right to request [facility] Administration (A) review, or appeal to the Board of Veterans' Appeals (Board). Your options for doing so are described in the attached VA Form 10-305, Your Rights to Seek Further Review of PCAFC Decisions. OTHER VA SERVICES AND PROGRAMS TO SUPPORT CAREGIVERS PCAFC is just one way [place] supports caregivers. Program of General Caregiver Support [...] VA Caregiver Support Program's website at www.caregiver.va.gov. [place] [facility] ([facility]) [facility] offers a variety of programs to support Veterans and caregivers, including services in the home and in the community. Please visit the [facility] website at www.va.gov/GERIATRICS for information on all [facility] services and additional resources. [place] [facility] [place] [facility] serves as the foundation of [facility] ([facility]) health care and is the first point of contact with the health care system for Veterans enrolled in [facility]. If you are interested in learning about any VA resources, please speak with your Patient Aligned Care Team (PACT) Locator or Primary Care provider for more information or assistance with a referral. If you have any questions about this letter or other matters, please contact the local [place]'s Caregiver Support Program (phone number enclosed) or visit the Caregiver Support Program's website at www.caregiver.va.gov. Sincerely, Caregiver Support Program Team ENCLOSURES: * Local [place] Medical Center Contact Information * Program of Comprehensive Assistance for Family Caregivers Eligibility Criteria Fact Sheet * VA FORM 10-305 Your Rights to seek Further Review of Program of Comprehensive Assistance for Family Caregivers (PCAFC) Decisions * Changes to Review and Appeal Options for PCAFC Decisions FAQs * Other: CC: Katie Pedro CC: [employer] [facility] [address] [place] [address] /gaetano/ Kristine YOON VESSEL SLAG WORKER Signed: 06/23/2024 14:08 Receipt Acknowledged By: 06/24/2024 08:15 /es/ KENDALL WAYNE HORSE BUYER 06/24/2024 09:01 /es/ TRAVIS YANEZ, KARRIE SOCIAL WORK EXECUTIVE --- Original Document --- 06/23/24 [facility] PCAFC CEAT REVIEW CONSULT: Centralized Eligibility and [...] may be impacted by changes in the and/or Family Caregiver(s)' circumstances, changes in needs or abilities, or VA may seek to discharge a participant due to failure to meet expectations or otherwise adhere to the intent of the program. Date of CEAT Review: Jun Full Name: CHAYA PEDRO SSN: [id number] Date of : Nov Address: [address] [place] [address] Phone number: PATIENT PHONE - Reasons for CEAT review: Initial Application Review and at least one Family Caregiver applicant have submitted a valid application for the PCA. Valid Application Date: May REQUIREMENTS 1) The [...] would be required to support the eligible [place]'s safety. *Personal Care Services means care or [...] likely to be beneficial to the or office services specialist. Such determination will include consideration, by a clinician, of whether participation in the program significantly enhances the 's or office services specialist's ability to live safely in a home setting, supports the [place]'s or office services specialist's potential progress in rehabilitation, if such potential exists, increases the 's or office services specialist's potential independence, if such potential exists, and creates an environment that supports the health and well-being of the or office services specialist. No Eligibility for PCAFC requires a multistep [...] at home or will do so if [place] designates a Family Caregiver. not evaluated. 7) The individual receives ongoing care from a primary care team or will do so if [place] designates a Family Caregiver. *Primary care team means one or more medical records coder who care for a patient based on the clinical needs of the patient. Primary care teams must include a [place] primary care provider who is a physician, advanced practice nurse, or a physician employment legal assistant. not evaluated. CAREGIVER REQUIREMENTS Primary Family Caregiver applicant Primary Family Caregiver applicant name: Katie Pedro 1) Is the Primary Family Caregiver applicant 18 years of age or older? Yes 2) Is the Primary Family Caregiver applicant a family member or will live with the [place] if designated as a Family Caregiver? Yes Relationship to [place]: spouse Residence of applicant: lives with 3) Is there a determination by VA of abuse or neglect of the by the Primary Family Caregiver applicant? not evaluated. PROGRAM PARTICIPATION REQUIREMENTS 1)The application process is completed within 90 days. 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 of the [facility], the district [facility], and [facility]. Yes DETERMINATION SECTION Denied - The and Family Caregiver applicant have been found not eligible for the Program of Comprehensive Assistance for Family Caregivers. - [place] or office services specialist does not require personal care services for [...] Pedro is a 68-year-old 100% service connected [facility] [place]. The [place] lives with his spouse Mago Pedro, age 67, and grand daughter, age 12. Yeimi submitted a joint application on 06/02/2024 for the Program of Comprehensive Assistance for Family Caregivers (PCAFC) with his son as primary family caregiver applicant. does not have home health aide. He [...] time the activity is performed. Per VFAI, is able to eat with set up/clean up assistance and meal preparation. This is consistent with record review (VFAI 06/22/2024, Assessment 06/14/2024). Additionally, set or clean-up assistance is not considered or defined as hands- on assistance and does not meet the PCAFC eligibility criteria for this ADL. Taken as a whole, the documents reviewed does not support that the [place] had a functional impairment that requires hands-on [...] time this activity is completed.. Per VFAI, [place] is able to complete bathing independently. makes use of grab bars and shower chair. This is consistent with record review (AI 06/22/2024, Assessment 06/14/2024). Additionally, set or clean-up assistance is not considered or defined as hands-on assistance and does not meet the PCAFC eligibility criteria for this ADL. Taken as a whole, the documents reviewed does not support that the [place] had a functional impairment that requires hands-on assistance with this ADL each time the activities were performed for six continuous months. Dressing/Undressing - Requirement, unmet. When determining PCAFC eligibility for the ADL of dressing, a [place] must require hands-on assistance each time the [...] each time toileting is completed. Per AI, [place] has help sometimes with cleaning after toileting. [...] eligibility for the ADL of mobility, a [place] must require hands-on assistance every time the activities involved in mobility are performed. Per VFAI, [place] is independent with transfers and ambulating . [place] has episodes of unsteadiness and occasional falls [...] months. Prosthetic - Requirement unmet. [facility] the [facility] of prosthetic, a must require hands-on assistance every time when adjusting appliances that any person with or without a disability would need assistance with should not be scored (for example, supports, belts, lacing at back, etc. Per VFAI [place] does not use a prosthetic. (AI 06/22/2024). Taken as a whole, the documents reviewed does not support that the [place] had a functional impairment that requires at least partial/moderate hands-on assistance with ADLs each time a prosthetic appliance was adjusted activities were performed for six continuous months. To be considered to have an inability to perform an activity of daily living, requires that a or Servicemember need personal care services each [...] an ADL is hands-on, physical care. For [facility], if the [place]'s needs with respect to ADLs are met with an assistive device, the individual would not need personal care services based on an inability to perform an ADL. Supervision or Protection: Requirement unmet. When considering [facility] eligibility for a need for supervision or protection based on symptoms or residuals of neurological or other impairment or injury, there is consideration for documentation of medical, neurocognitive, and/or psychiatric conditions which resulted in functional impairments requiring supervision or protection. Yeimi has not been diagnosed with a neurocognitive disorder. Per VFAI [place] can take medication with set up assistance, identify his own needs, arrange for his own health and has the judgement and physical ability to make appropriate decisions in a potentially harmful situation. [place] can be alone with out anyone checking in and does not need help going anywhere (VFAI 06/22/2024). [place] is consistently assessed as alert and oriented to person, place and time (Non [facility] ER visit 04/19/2024). Yeimi is noted to have no mental health needs at this time and is stable (Nurse Practitioner outpatient 06/01/2024). Taken as a whole, Yeimi does not meet eligibility criteria for a need for supervision or protection based on symptoms or residuals of neurological or other impairment or injury. Regular or Extensive supervision or instruction: Requirement Unmet. When considering [facility] eligibility for a need for regular or extensive supervision or instruction, we take into consideration documentation of functional impairments impacting daily life, including the frequency and severity of need for in-person supervision or instruction. [place] is able to understand his treatment plan, and does not have a fiduciary or guardian (Primary Care collaborative 06/03/2024, Assessment 06/03/2024). [place] does not need stand by or continuous cueing, supervision or instruction and is able to a use phone to call 911 in an emergency as needed. While spouse has concerns about leaving [place] alone due to falls, there were not documentation of recent or consistent falls or recent falls with injury. Last fall documented 03/12/2022 (Nursing note 03/14/2022, Primary Care Collaboration 06/03/2024, Nurse Practitioner Note 06/11/2024). Taken together, there is no documentation of functional impairments that met the threshold of PCAFC eligibility criteria that demonstrates that [place] requires supervision or instruction. As above, drives, can be alone, and go out alone. As such, does not need regular or extensive instruction or supervision without which their ability to function in daily life would be seriously impaired, and thus [place] is found ineligible for this criterion. Determination: After a review of the available medical records, per CEAT determination, does not meet PCAFC eligibility requirements in effect on July 19, [...] be seriously impaired. /es/ Kristine Barnes [facility] VESSEL SLAG WORKER Signed: 06/23/2024 14:06 Receipt Acknowledged By: 06/24/2024 07:25 /es/ JESSICA HOUSER [facility] CAREGIVER SUPPORT VESSEL SLAG WORKER 06/24/2024 09:01 /es/ TRAVIS YANEZ, [facility] SOCIAL WORK EXECUTIVE * AWAITING SIGNATURE * NIKKI CHEUNG I * AWAITING SIGNATURE * ESTIVEN LEBLANC 06/23/2024 15:58 /es/ Netta Higuera BSN, RN Netta Higuera MSN, RN KRISTINE BARNES [place] [facility] Jun 23, 2024 12:47 PM CAREGIVER CERTIFICATE: LOCAL TITLE: CSP PCAFC CEAT REVIEW CONSULT STANDARD TITLE: CAREGIVER CERTIFICATE DATE OF NOTE: JUN 23, 2024@12:47 ENTRY DATE: JUN 23, 2024@12:47:53 AUTHOR: KRISTINE BARNES EXP COSIGNER: URGENCY: STATUS: COMPLETED CSP PCAFC CEAT REVIEW CONSULT Has ADDENDA Centralized [...] may be impacted by changes in the and/or Family Caregiver(s)' circumstances, changes in needs or abilities, or VA may seek to discharge a participant due to failure to meet expectations or otherwise adhere to the intent of the program. Date of CEAT Review: Jun Full Name: CHAYA PEDRO SSN: [id number] Date of : Nov Address: [address] [place] [address] Phone number: PATIENT PHONE - Reasons for CEAT review: Initial Application Review [place] and at least one Family Caregiver applicant have submitted a valid application for the PCA. Valid Application Date: May REQUIREMENTS 1) The individual is either a [place] or a member of the Armed Forces [...] necessary in order to support the eligible [place]'s health and well-being, and perform personal functions required in everyday living ensuring the eligible remains safe from hazards or dangers incident to his or her daily environment. No 4) It is in the best interest of the individual to participate in the program. *In the best interest means a clinical determination that participation in PCAFC is likely to be beneficial to the or office services specialist. Such determination will include consideration, by a clinician, of whether participation in the program significantly enhances the 's or office services specialist's ability to live safely in a home setting, supports the 's or office services specialist's potential progress in rehabilitation, if such potential exists, increases the [place]'s or office services specialist's potential independence, if such potential exists, and creates an environment that supports the health and well-being of the [place] or office services specialist. No Eligibility for PCAFC requires a multistep evaluation process. Once a criterion is determined to not be met, the evaluation concludes, and a decision is issued. Because the [place] applicant was found to not be in need of personal care services, the evaluation process concluded, and this criterion was not evaluated. 5) Personal care services that would be provided by the Family Caregiver will not be simultaneously and regularly provided by or through another individual or entity. not evaluated. 6)The individual receives care at home or will do so if [place] designates a Family Caregiver. not evaluated. 7) The individual receives ongoing care from a primary care team or will do so if [place] designates a Family Caregiver. *Primary care team means one or more medical records coder who care for a patient based on the clinical needs of the patient. Primary care teams must include a [place] primary care provider who is a physician, advanced practice nurse, or a physician employment legal assistant. not evaluated. CAREGIVER REQUIREMENTS Primary Family Caregiver applicant Primary Family Caregiver applicant name: Katie Pedro 1) Is the Primary Family Caregiver applicant 18 years of age or older? Yes 2) Is the Primary Family Caregiver applicant a family member or will live with the if designated as a Family Caregiver? Yes Relationship to : spouse Residence of applicant: lives with 3) Is there a determination by VA of abuse or neglect of the by the Primary Family Caregiver applicant? not evaluated. PROGRAM PARTICIPATION REQUIREMENTS 1)The application process is completed within 90 days. Yes 2) The or office services specialist resides in a State, defined as each of the several States, Territories, and possessions of the [facility], the district [facility], and the [facility]. Yes DETERMINATION SECTION Denied - The and Family Caregiver applicant have been found not eligible for the Program of Comprehensive Assistance for Family Caregivers. - [place] or office services specialist does not require personal care services for [...] Pedro is a 68-year-old 100% service connected [facility] [place]. The [place] lives with his spouse Mago Pedro, age 67, and grand daughter, age 12. submitted a joint application on 06/02/2024 for the Program of Comprehensive Assistance for Family Caregivers (PCAFC) with his son as primary family caregiver applicant. [place] does not have home health aide. He does not have a fiduciary or guardian. Feeding - Requirement unmet. When determining PCAFC eligibility for the ADL of feeding/eating, a [place] must require hands-on assistance with feeding oneself due to loss of coordination of upper extremities, extreme weakness, inability to swallow, or need for a non-oral means of nutrition bringing food and/or liquid to the mouth each time the activity is performed. Per VFAI, is able to eat with set up/clean up assistance and meal preparation. This is consistent with record review (VFAI 06/22/2024, [place] Assessment 06/14/2024). Additionally, set or clean-up assistance [...] eligibility for the ADL of grooming, a [place] must require hands-on assistance with completing both oral hygiene and washing upper body areas each time grooming is completed. Per VFAI, is able to complete oral care with setup/clean up, and washes upper body in shower. (VFAI 05/24/2024). This is consistent with record review (AI 06/22/2024, [place] Assessment 06/14/2024). Additionally, set or clean-up assistance [...] eligibility for the ADL of bathing, a [place] must require hands-on assistance with washing, rinsing, and drying each time this activity is completed.. Per VFAI, [place] is able to complete bathing independently. makes [...] eligibility for the ADL of dressing, a must require hands-on assistance each time the ADL of dressing is completed.??? Per VFAI, [place] is able to dress upper body independently [...] eligibility for the ADL of toileting, a [place] must require hands-on assistance with adjusting clothes before and after voiding or having a bowel movement, and with maintaining perineal hygiene each time toileting is completed. Per VFAI, has help sometimes with cleaning after toileting. As assistance is intermittent, does not meet the PCAFC eligibility criteria for this ADL. This is consistent with record review (VFAI 06/22/2024, [place] Assessment 06/14/2024. The documents reviewed do not support that the had a functional impairment that requires hands-on assistance with this ADL each time the activities were performed for six continuous months. Mobility - Requirement unmet. When determining PCAFC eligibility for the ADL of mobility, a [place] must require hands-on assistance every time the activities involved in mobility are performed. Per VFAI, [place] is independent with transfers and ambulating . [...] supports, belts, lacing at back, etc. Per VFAI [place] does not use a prosthetic. (AI 06/22/2024). Taken as a whole, the documents reviewed does not support that the had a functional impairment that requires at least partial/moderate hands-on assistance with ADLs each time a prosthetic appliance was adjusted activities were performed for six continuous months. To be considered to have an inability to perform an activity of daily living, requires that a or Servicemember need personal care services each [...] an ADL is hands-on, physical care. For [facility], if the 's needs with respect to ADLs are met with an assistive device, the individual would not need personal care services based on an inability to perform an ADL. Supervision or Protection: Requirement unmet. When considering [facility] eligibility for a need for supervision or protection based on symptoms or residuals of neurological or other impairment or injury, there is consideration for documentation of medical, neurocognitive, and/or psychiatric conditions which resulted in functional impairments requiring supervision or protection. Yeimi has not been diagnosed with a neurocognitive disorder. Per VFAI [place] can take medication with set up assistance, [...] and time (Non VA ER visit 04/19/2024). [place] is noted to have no mental health needs at this time and is stable (Nurse Practitioner outpatient 06/01/2024). Taken as a whole, [place] does not meet eligibility criteria for a need for supervision or protection based on symptoms or residuals of neurological or other impairment or injury. Regular or Extensive supervision or instruction: Requirement Unmet. When considering [facility] eligibility for a need for regular or extensive supervision or instruction, we take into consideration documentation of functional impairments impacting daily life, including the frequency and severity of need for in-person supervision or instruction. [place] is able to understand his treatment plan, and does not have a fiduciary or guardian (Primary Care collaborative 06/03/2024, [place] Assessment 06/03/2024). [place] does not need stand by or continuous cueing, supervision or instruction and is able to a use phone to call 911 in an emergency as needed. While spouse has concerns about leaving [place] alone due to falls, there were not documentation of recent or consistent falls or recent falls with injury. Last fall documented 03/12/2022 (Nursing note 03/14/2022, Primary Care Collaboration 06/03/2024, Nurse Practitioner Note 06/11/2024). Taken together, there is no documentation of functional impairments that met the threshold of PCAFC eligibility criteria that demonstrates that requires supervision or instruction. As above, [place] drives, can be alone, and go out alone. As such, [place] does not need regular or extensive instruction or supervision without which their ability to function in daily life would be seriously impaired, and thus [place] is found ineligible for this criterion. Determination: After a review of the available medical records, per CEAT determination, [place] does not meet PCAFC eligibility requirements in effect on July 19, [...] be seriously impaired. /es/ Kristine Barnes [facility] VESSEL SLAG WORKER Signed: 06/23/2024 14:06 Receipt Acknowledged By: 06/24/2024 07:25 /es/ JESSICA HOUSER [facility] CAREGIVER SUPPORT VESSEL SLAG WORKER 06/24/2024 09:01 /es/ TRAVIS YANEZ, [facility] SOCIAL WORK EXECUTIVE 07/21/2024 11:42 /es/ NIKKI CHEUNG Clinical Psychologist 06/24/2024 13:21 /es/ ESTIVEN LEBLANC APRN NURSE PRACTITIONER 06/23/2024 15:58 /es/ Netta BERMANN, RN Netta Higuera MSN, RN 06/23/2024 ADDENDUM STATUS: COMPLETED Chaya Pedro [address] [place] [id number] 06/23/2024 Dear Chaya Pedro: Thank you for [...] individuals were considered during this application review: [place]: Chaya Pedro Primary Family Caregiver Applicant: Katie [...] the purposes of this letter, the term means an eligible of the Armed Forces or an eligible science faculty member of the Armed Forces who has [...] dated 06/02/2024. * Intake, dated 06/03/2024. * Assessment, dated 06/14/2024. * [place] Functional Assessment, dated 06/22/2024. * Caregiver Assessment, dated 06/14/2024. * Primary Care Collaboration, dated 06/03/2024. * [facility], dated 06/23/2022-06/23/2024 Nursing note 03/14/2022, Nurse Practitioner Note 06/11/2024. * Non-VA Medical Records, including [facility] Non VA ER visit 04/19/2024, 04/22/2024, [...] apply to circumstances that are subject to pack changer time. Thus, in the future, these findings will require re-evaluation. * The applicant is a , or a member of the Armed Forces undergoing medical discharge from the Armed Forces. The term means a person who served in the active , naval, air, or space service, and who was discharged or released therefrom under conditions other than dishonorable. The term undergoing medical discharge means the science faculty member has been found unfit for duty due to a medical condition by their Service's Physical Evaluation Board, and a date of medical discharge has been issued. o Requirement met due to the applicant is a [place], or a member of the Armed Forces [...] VA. o Requirement met due to the [place] incurred or aggravated a serious injury in the line of duty. The [place] has a Single service-connected disability rating of 100% assigned by VA. * The [place] applicant resides in a State. The term State means each of the several States, Territories, and [facility] of the [place], the [facility], and the [facility]. o Requirement met due to the [place] applicant residing in [place], [place]. * The [place] applicant is in need of personal care [...] o Requirement unmet due to: ? The applicant is not in need of personal care services. After a thorough review of your records, there was insufficient evidence to support that you met eligibility criteria for PCAFC benefits under 38 U.S.C. ?1720G and 38 C.F.R. ?? 71.15-71.25. * The [place] applicant is in need of personal care services for a minimum of six continuous months based on any one of the following: o An inability to perform an activity of daily living (ADL). Inability to perform an ADL means a [place] requires personal care services each time the applicant completes one or more of the following ADLs: ? Requirement unmet 1. Feeding oneself due to loss of coordination of upper extremities, extreme weakness, inability to swallow, or the need for a non-oral means of nutrition: ? Requirement unmet due to Requirement unmet. When determining PCAFC eligibility for the ADL of feeding/eating, a [place] must require hands-on assistance with feeding oneself due to loss of coordination of upper extremities, extreme weakness, inability to swallow, or need for a non-oral means of nutrition bringing food and/or liquid to the mouth each time the activity is performed. Per [facility], is able to eat with set up/clean [...] each time grooming is completed. Per AI, [place] is able to complete oral care with setup/clean up, and washes upper body in shower. (AI 05/24/2024). This is consistent with record review (AI 06/22/2024, Assessment 06/14/2024). Additionally, set or clean-up assistance is not considered or defined as hands-on assistance and does not meet the PCAFC eligibility criteria for this ADL. Taken as a whole, the documents reviewed does not support that the [place] had a functional impairment that requires hands-on assistance with this ADL each time the activities were performed for six continuous months. 3. Bathing: ? Requirement unmet due to Requirement unmet. When determining PCAFC eligibility for the ADL of bathing, a [place] must require hands-on assistance with washing, rinsing, and drying each time this activity is completed.. Per AI, is able to complete bathing independently. [place] makes use of grab bars and shower [...] eligibility for the ADL of dressing, a must require hands-on assistance each time the ADL of dressing is completed.??? Per [facility], [place] is able to dress upper body independently and has supervision/touching assistance with lower body dressing as he has occasional unsteady gait. Supervision or touching assistance are not considered or defined as hands-on assistance and does not meet the PCAFC eligibility criteria for this ADL. This is consistent with record review ([facility] 06/22/2024). Taken as a whole, the documents reviewed does not support that the had a functional impairment that requires hands-on assistance with this ADL each time the activities were performed for six continuous months. 5. Toileting or attending to toileting: ? Requirement unmet due to Requirement unmet. When determining PCAFC eligibility for the ADL of toileting, a [place] must require hands-on assistance with adjusting clothes before and after voiding or having a bowel movement, and with maintaining perineal hygiene each time toileting is completed. Per AI, has help sometimes with cleaning after toileting. As assistance is intermittent, does not meet the PCAFC eligibility criteria for this ADL. This is consistent with record review (AI 06/22/2024, Assessment 06/14/2024. The documents reviewed do [...] back, etc.): ? Requirement unmet due to [place] does not use a prosthetic or orthopedic appliance. 7. Mobility (walking, going up stairs, transferring from bed to chair, etc.): ? Requirement met due to Requirement unmet. When determining PCAFC eligibility for the ADL of mobility, a [place] must require hands-on assistance every time the activities involved in mobility are performed. Per [facility], is independent with transfers and ambulating . [place] has episodes of unsteadiness and occasional falls related to diagnosis of seizure disorder and vision problems. (AI06/22/2024). Per primary care, [place] has been seizure free for last few years and no history of recent falls (Primary Care Collaboration ). Taken as a whole, the documents reviewed do not support that the [place] had a functional impairment that requires hands- on assistance with this ADL each time the activities were performed for six continuous months. o The applicant has a need for supervision or protection based on symptoms or residual of neurological or other impairment or injury: ? Requirement unmet due to Requirement unmet. When considering [facility] eligibility for a need for supervision or protection based on symptoms or residuals of neurological or other impairment or injury, there is consideration for documentation of medical, neurocognitive, and/or psychiatric conditions which resulted in functional impairments requiring supervision or protection. [place] has not been diagnosed with a neurocognitive disorder. Per [facility] [place] can take medication with set up assistance, identify his own needs, arrange for his own health and has the judgement and physical ability to make appropriate decisions in a potentially harmful situation. [place] can be alone with out anyone checking [...] or other impairment or injury. o The [place] applicant has a need for regular or extensive instruction or supervision without which the ability of the [place] to function in daily life would be seriously impaired: ? Requirement unmet due to Requirement Unmet. When considering [facility] eligibility for a need for regular or extensive supervision or instruction, we take into consideration documentation of functional impairments impacting daily life, including the frequency and severity of need for in-person supervision or instruction. [place] is able to understand his treatment plan, and does not have a fiduciary or guardian (Primary Care collaborative 06/03/2024, [place] Assessment 06/03/2024). does not need stand by or continuous cueing, supervision or instruction and is able to a use phone to call 911 in an emergency as needed. While spouse has concerns about leaving [place] alone due to falls, there were not documentation of recent or consistent falls or recent falls with injury. Last fall documented 03/12/2022 (Nursing note 03/14/2022, Primary Care Collaboration 06/03/2024, Nurse Practitioner Note 06/11/2024). Taken together, there is no documentation of functional impairments that met the threshold of PCAFC eligibility criteria that demonstrates that requires supervision or instruction. As above, drives, can be alone, and go out alone. As such, [place] does not need regular or extensive instruction or supervision without which their ability to function in daily life would be seriously impaired, and thus [place] is found ineligible for this criterion. FAMILY CAREGIVER FINDINGS * The Family Caregiver applicant resides in a State. The term State means each of the several States, Territories, and [facility] of the [place], the [facility], and the [facility]. o Requirement met due to the Family Caregiver applicant residing in a State . * The Family Caregiver applicant is the eligible 's spouse, son, daughter, parent, stepfamily member, extended family member, or someone who lives with the eligible [place] full-time or will do so if designated as a Family Caregiver. o Requirement met due to the Family Caregiver is a spouse, son, daughter, parent, stepfamily member, extended family member, or someone who lives with the eligible [place] full-time or will do so if designated as a Family Caregiver. * The Family Caregiver applicant is 18 years of age or older. o Requirement met due to the Family Caregiver applicant is 18 years of age or older. * There is no determination by [facility] of abuse or neglect of the eligible by the Family Caregiver applicant. o Requirement [...] is in the best interest of the [place] applicant to participate in the program. In the best interest is a clinical determination that participation in the program is likely to be beneficial to the . Such determination includes consideration, by a clinician, of whether participation in the program: o Significantly enhances the [place]'s ability to live safely in a home setting; o Supports the 's potential progress in rehabilitation, if such potential exists; o Increases the [place]'s potential independence, if such potential exists; and/or o Creates an environment that supports the health and well-being of the [place]. * The personal care services that would be provided by the Family Caregiver applicant will not be simultaneously and regularly provided by or through another individual or entity. * The applicant receives care at home or will do so if [place] designates a Family Caregiver. * The [place] applicant receives ongoing care from a primary care team or will do so if [place] designates a Family Caregiver. Primary care team means one or more medical records coder who care for a patient based on the clinical needs of the patient. Primary care teams must include a [place] primary care provider who is a physician, advanced practice nurse, or a physician employment legal assistant. * Your Family Caregiver applicant has not [...] decision the following ways. If you utilize [employer], you may access your records through that system. You may also request a copy of your records by submitting a signed and completed VA Form [id number], Individuals' Request for a Copy of Their Own Health Information, to the Cryptographic Clerk at your local [place] medical facility. VA Form 5345a can be found at www.va.gov/vaforms/medical/ pdf/VHA% [email or web address]. WHAT TO DO IF YOU DISAGREE WITH THE DECISION If you disagree with this decision, you have the right to request [facility] (A) review, or appeal to [...] VA Caregiver Support Program's website at www.caregiver.va.gov. [place] [facility] ([facility]) [facility] offers a variety of programs to support Veterans and caregivers, including services in the home and in the community. Please visit the [facility] website at www.va.gov/GERIATRICS for information on all [facility] services and additional resources. [facility] [place] [facility] serves as the foundation of [facility] ([facility]) health care and is the first point of contact with the health care system for Veterans enrolled in [facility]. If you are interested in learning about any VA resources, please speak with your Patient Aligned Care Team (PACT) Locator or Primary Care provider for more information or assistance with a referral. If you have any questions about this letter or other matters, please contact the local [place]'s Caregiver Support Program (phone number enclosed) or visit the Caregiver Support Program's website at www.caregiver.va.gov. Sincerely, Caregiver Support Program Team ENCLOSURES: * Local [place] [facility] Contact Information * Program of Comprehensive Assistance for Family Caregivers Eligibility Criteria Fact Sheet * VA FORM 10-305 Your Rights to seek Further Review of Program of Comprehensive Assistance for Family Caregivers (PCAFC) Decisions * Changes to Review and Appeal Options for PCAFC Decisions FAQs * Other: CC: Katie Pdero CC: [employer]abled [employer] ([facility]) [address] [place] [address] /gaetano/ Kristine Barnes [facility] VESSEL SLAG WORKER Signed: 06/23/2024 14:08 Receipt Acknowledged By: 06/24/2024 08:15 /es/ KENDALL WAYNE HORSE BUYER 06/24/2024 09:01 /es/ TRAVIS YANEZ, [facility] SOCIAL WORK EXECUTIVE KRISTINE BARNES CNTRL [facility]STRN [facility]
--- OUTSIDE RECORDS SUMMARY | 2024-12-21 11:58 | XMS_ITS | Encounter Summary ---
Author Name [facility] Organization [facility] Address [address] [place] [address] Care Team Providers Care Construction Sales Manager Name Role Phone ELIZABET ROBINS Primary [...] [facility] CE ORGANIZAT ION [facility] AC Apr 18, 2018 [id number] [phone] WILLISEDILBERTO LynnZA SPOUSE ANTHEM BCBS OF [place] ([place]UECARD) HEALTH [facility]IN[facility] CE ORGANIZAT ION [facility] Apr 18, 2018 [phone] WILLIS,EDILBERTO SOTELOZA SPOUSE BCBS [facility] ORGANIZ [facility] SHARE ACTIV E Apr 18, 2018 [id number] [phone] WILLIS,MAR JUDITH SPOUSE BCBS OF [facility] CE ORGANIZAT ION [facility] Apr 18, 2018 [id number] [phone] WILLIS,MAR JUDITH PATIENT BCBS OF [facility] CE ORGANIZAT ION BRENDA MCCABE RSD Apr 18, 2018 [id number] WILLIS,MAR JUDITH SPOUSE BCBS OF [place] PREFERRED PROVIDER ORGANIZAT ION (PPO) [facility] AC Apr 18, 2018 [id number] WILLIS,MAR JUDITH SPOUSE BCBS OF [facility] CE ORGANIZAT ION BRENDA MCCABE RSD ACT Apr 18, 2018 [id number] WILLIS,MAR JUDITH SPOUSE BCBS OF [facility] CE ORGANIZ BRENDA MCCABE RSD AC Apr 18, 2018 [id number] [phone] WILLIS,MAR JUDITH SPOUSE [place] PRESCRIPT ION [facility] Oct 19, 2022 [id number] [phone] WILLIS,MAR JUDITH SPOUSE [place] PRESCRIPT ION RX22M A Oct 19, 2022 RX22MA [id number] WILLIS,LAVELLE AEL PATIENT [place] PRESCRIPT ION RX22M B Oct 19, 2022 [id number] [id number] WILILS,LAVELLE AEL PATIENT [place] PRESCRIPT [place]ON [place] Oct 19, 2022 RX22MA [id number] WILLIS, SPOUSE [place] PRESCRIPT ION BRENDA MCCABE RSD AC Oct 19, 2022 [id number] [phone] WILLIS,LAVELLE AEL SPOUSE [place] PRESCRIPT ION RX Oct 19, 2022 RX22MC [id number] [phone] WILLIS,MAR JUDITH SPOUSE [place] ([id number]) PRESCRIPT [place] Oct 19, 2022 [id number] [phone] WILLIS,MAR JUDITH SPOUSE [place] ([facility] CE ORGANIZAT ION [facility] RSD AC Apr 18, 2018 [id number] WILLISEDILBERTO SPOUSE [employer] ([id number]) PRESCRIPT ION Apr 18, 2018 L4TA [id number] WILLISEDILBERTO SPOUSE [employer] ([id number]) PRESCRIPT ION L4TA Apr 18, 2018 L4TA [id number] WILLIS,EDILBERTO WONG SPOUSE [employer] ([id number]) PRESCRIPT ION L4TA* Apr 18, 2018 L4TA [id number] WILLISEDILBERTO SPOUSE [employer] ([id number]) PRESCRIPT ION Apr 18, 2018 L4TA [id number] WILLISEDILBERTO SPOUSE [employer]-MINOR BROGATION PRESCRIPT ION [place] Apr 18, 2020 L4TA [id number] [phone] WILLIS,EDILBERTO WONG SPOUSE [employer] [facility] CE ORGANIZAT ION W/OUT OF NETWORK BENEFITS [facility] RSD ACT Apr 18, 2018 [id number] [phone] EDILBERTO PEDRO SPOUSE [facility] CE ORGANIZAT ION [facility] RSD AC Apr 18, 2018 [id number] [phone] EDILBERTO PEDRO SPOUSE MEDICARE (WNR) MEDICARE () PART A Mar 19, 1990 PART A [id number] WILLISLAVELLE LEIVA AEL PATIENT MEDICARE (WN) MEDICARE () PART A Mar 19, 1990 PART A [id number] WILLISLAVELLE AEL PATIENT MEDICARE (WNR) MEDICARE () PART A Mar 19, 1990 PART A [id number] WILLIS,LAVELLE AEL PATIENT MEDICARE (WNR) MEDICARE () PART A Mar 19, 1990 PART A [id number] [phone] WILLIS,LAVELLE AEL PATIENT MEDICARE (WNR) MEDICARE (M) PART A Mar 19, 1990 PART A [id number] [phone] WILLIS,LAVELLE AEL PATIENT MEDICARE (WNR) MEDICARE (M) PART A Mar 19, 1990 PART A [id number] WILLIS,LAVELLE AEL PATIENT MEDICARE (WNR) MEDICARE (M) PART A Mar 19, 1990 PART A [id number] WILLIS,LAVELLE AEL PATIENT MEDICARE (WNR) MEDICARE (M) PART A Mar 19, 1990 PART A [id number] WILLIS,LAVELLE AEL PATIENT MEDICARE (WNR) MEDICARE (M) PART A Mar 19, 1990 PART A [id number] [phone] WILLIS,LAVELLE AEL PATIENT MEDICARE (WNR) MEDICARE (M) PART A Mar 19, 1990 PART A [id number] [phone] WILLIS,LAVELLE AEL PATIENT MEDICARE (WNR) MEDICARE (M) PART A Mar 19, 1990 PART A [id number] WILLIS,LAVELLE AEL PATIENT Selected Encounter This section includes the information on record at ME for the Encounter. Date/Time Encounter Type Encounter Description Reason Pro vider Source Apr 06, 2024 03:01 PM Outpatient Encounter ADMIN PAT ACTIVTIES (MASNONCT) IHE Encounter Template Text not used by ME Plan of Treatment: Future Appointments (+ 6 months) and Future Tests (+/- 45 days) The Plan of Treatment section includes future care activities for the patient from all ME treatmentfacilities. This section includes future appointments and future orders which are active, pending or scheduled. Future Appointments This section includes appointments that were scheduled to occur 6 months from the date of the Encounter, up to a maximum of 20 appointments. The data comes from all [place] treatment facilities. Appointment Date/Time Appointment Type Appointme nt Facility Name May 30, 2024 08:30 AM AMBULATORY - MEDICINE [facility] May 30, 2024 09:30 AM AMBULATORY MEDICINE [facility] Jun 01, 2024 10:00 AM AMBULATORY - MEDICINE [facility] [place] [facility] Jun 01, 2024 11:30 AM AMBULATORY - MEDICINE [facility] [place] [facility] Jun 28, 2024 11:30 AM AMBULATORY - MEDICINE [facility] [place] [facility] Jul 08, 2024 10:30 AM AMBULATORY - MEDICINE [facility] [place] [facility] Jul 13, 2024 09:30 AM AMBULATORY - MEDICINE [facility] [place] [facility] Aug 12, 2024 09:30 AM AMBULATORY - MEDICINE [facility] [place] [facility] Aug 22, 2024 09:00 AM AMBULATORY - MEDICINE [facility] [place] [facility] Sep 21, 2024 09:00 AM AMBULATORY - MEDICINE [facility] [place] [facility] Sep 21, 2024 10:00 AM AMBULATORY - MEDICINE [facility] [place] [facility] Social History: Smoking Status (Most current) and Tobacco Use (All prior to encounter date) This section includes the most current, and the historical, smoking and tobacco- related health factors from the ME facility where the Encounter took place. Current Smoking Status This section includes the most current smoking, or tobacco-related health factor, from the ME facility where the Encounter took place. Date/Time Current Smoking Status Comment [facility] Nov 27, 2023 11:00 AM VA-TOBACCO FORMER USER [facility] [place] [facility] Tobacco Use History This section includes a history of the smoking, or tobacco-related health factors, that were collected on or before the date of the Encounter. The data comes from the ME facility where the Encounter took place. Date/Time Smoking Status/Tobac co Use Comment Facility Nov 27, 2023 11:00 AM VA-TOBACCO QUIT 15 YRS OR MORE [facility] [place] [facility] Dec 02, 2022 08:00 AM VA-TOBACCO FORMER USER [facility] [place] [facility] Dec 02, 2022 08:00 AM VA-TOBACCO QUIT 15 YRS OR MORE [facility] [place] [facility] Nov 05, 2021 10:30 AM VA-TOBACCO FORMER USER [facility] [place] [facility] Nov 05, 2021 10:30 AM VA-TOBACCO QUIT 1 TO < 5 YRS [facility] Sep 14, 2020 02:00 PM VA-TOBACCO FORMER USER [facility] Sep 14, 2020 02:00 PM VA-TOBACCO QUIT 5 TO < 15 YRS [facility] Jan 22, 2018 03:40 PM QUIT TOBACCO USE > 7 YEARS AGO [facility] Jun 04, 2016 02:01 PM CURRENT SMOKER been smoking pass 20 yrs [facility] Jun 04, 2016 02:01 PM V1-PT DECLINES REF TO TOBACCO CESS PRGM [facility] Jun 04, 2016 02:01 PM V1-PT THINKING ABOUT QUIT TOBACCO USE [facility] Jul 18, 2014 03:31 PM V1-PT DECLINES REF TO TOBACCO CESS PRGM [facility] Jul 18, 2014 03:31 PM V1-PT DECLINES TOBACCO CESSATION MEDS [facility] Jul 18, 2014 03:31 PM V1-PT NOT INTERESTED IN QUIT TOBACCO USE [facility] Jan 09, 2014 10:43 AM CURRENT SMOKER pt smokes 1 pk of cigarettes per day. [facility] Jan 09, 2014 10:43 AM V1-PT THINKING ABOUT QUIT TOBACCO USE [facility] Aug 28, 2003 10:47 AM CURRENT SMOKER one pack q 6 days - he has cut down from 3 PPD. He is in the process of quitting [facility] Radiology Reports: +/- 30 days of [...] data comes from all [facility] facilities. Date/Time Radiology Report Provider Source Mar 28, 2024 09:45 AM LDCT LUNG CANCER SCREENING: CHAYA PEDRO [id number] -[id number] M Exm Date: MAR 28, 2024@09:45 Req Phys: ELIZABET ROBINS Pat Loc: ZZCWM/NO/LCS ADMIN (Req'g Loc) Img Loc: NHM/CT Service: Unknown [place] [facility] [place] [facility] , (Case 16 COMPLETE) LDCT LUNG CANCER SCREENING (CT Detailed) CPT:94254 Reason for Study: LUNG CANCER SCREENING Clinical History: QUIT SMOKING IN 2012 BASELINE LCS LDCT 03/30/2023: LUNG RADS 1 no new or concerning pulmonary mass or nodules. Plan for repeat in 12 months. Report Status: Verified Date Reported: MAR 28, 2024 Date Verified: MAR 28, 2024 [employer]man Con[employer] E-Sig:/ES/RAYMOND LEAL JR Report: Study: Lung cancer [...] reviewed. Secondary computer-aided detection with post-processing from [employer] is used. The lack of intravenous contrast [...] Primary Interpreting Staff: RAYMOND LEAL JR, Radiologist (Pullman Conductor) /RAYMOND SHELTON JR [facility] Encounter Notes: All associated encounter notes [...] CUSTOMER CARE MEDICATION RENEWAL: Date: Mar Division: [facility] referred by Pharmacy Call Center for medication renewal: Non-controlled/maintenan ce medication Medications requested: [id number] ALBUTEROL 3/IPRATROP 0.5MG/3ML INHL 3ML [id number] ALBUTEROL 90MCG (CFC-F) 200D ORAL INHL Defer to primary care provider To be mailed . Please review and renew if appropriate. *This note was generated by [facility] Pharmacy Customer Care. If you have any questions or need assistance, do not contact this author. Please refer all questions to your local, on-site pharmacy departments. /jerry LAMAR Deputy Sheriff/Investigator, [place]/Pharmacy Customer Care Signed: 04/06/2024 15:03 Receipt Acknowledged By: 04/13/2024 15:15 /gaetano/ CIERRA GREGORY Nurse Practitioner 04/07/2024 08:13 /gaetano/ DEBBIE GORMAN, MSN, RN, CNL PRIMARY CARE TEAM NURSE DEBBIE GORMAN [facility] Apr 06, 2024 03:04 PM PHARMACY NOTE: LOCAL TITLE: V1 PHARMACY CUSTOMER CARE MEDICATION RENEWAL STANDARD TITLE: PHARMACY NOTE DATE OF NOTE: APR 06, 2024@15:04 ENTRY DATE: APR 06, 2024@15:04:25 AUTHOR: JUDY LAMAR EXP COSIGNER: URGENCY: STATUS: COMPLETED Date: Mar Division: [place] Pt referred by Pharmacy Call Center for medication renewal: Non-controlled/maintenan ce medication Medications requested: [id number] ATORVASTATIN CALCIUM 80MG TAB Defer to primary care provider To be mailed . Please review and renew if appropriate. *This note was generated by [facility] Pharmacy Customer Care. If you have any questions or need assistance, do not contact this author. Please refer all questions to your local, on-site pharmacy departments. /jerry LAMAR Deputy Sheriff/Investigator, [place]/Pharmacy Customer Care Signed: 04/06/2024 15:04 Receipt Acknowledged By: 04/08/2024 09:00 /gaetano/ KIMBER MACK MD STAFF PHYSICIAN JUDY LAMAR [facility] Apr 06, 2024 03:02 PM PHARMACY NOTE: LOCAL TITLE: V1 PHARMACY CUSTOMER CARE MEDICATION RENEWAL STANDARD TITLE: PHARMACY NOTE DATE OF NOTE: APR 06, 2024@15:02 ENTRY DATE: APR 06, 2024@15:02:33 AUTHOR: JUDY LAMAR EXP COSIGNER: URGENCY: STATUS: COMPLETED V1 PHARMACY CUSTOMER CARE MEDICATION RENEWAL Has ADDENDA Date: Mar Division: [facility] referred by Pharmacy Call Center for medication renewal: Non-controlled/maintenan ce medication Medications requested: [id number] ALBUTEROL 3/IPRATROP 0.5MG/3ML INHL 3ML [id number] ALBUTEROL 90MCG (CFC-F) 200D ORAL INHL Defer to primary care provider To be mailed . Please review and renew if appropriate. *This note was generated by [facility]/[place] Pharmacy Customer Care. If you have any questions or need assistance, do not contact this author. Please refer all questions to your local, on-site pharmacy departments. /gaetano/ JUDY LAMAR Deputy Sheriff/Investigator, [place]/Pharmacy Customer Care Signed: 04/06/2024 15:03 Receipt Acknowledged By: 04/13/2024 15:15 /gaetano/ CIERRA GREGORY Nurse Practitioner 04/07/2024 08:13 /gaetano/ DEBBIE GORMAN, MSN, RN, CNL PRIMARY CARE TEAM NURSE 04/07/2024 ADDENDUM STATUS: COMPLETED Forwarding to covering provider /gaetano/ DEBBIE GORMAN, MSN, RN, CNL PRIMARY CARE TEAM NURSE Signed: 04/07/2024 08:12 Receipt Acknowledged By: * AWAITING SIGNATURE * ELIZABET ROBINS [facility]
== END 2024-12-21 10:18 | disposition home or self-care (01) ==
PROVIDERS: Emergency Provider Emergency Medicine; PCP Nurse Practitioner Family
DX: K11.21 Acute sialoadenitis (principal); E11.9 Type 2 diabetes mellitus without complications; I10 Essential (primary) hypertension; G40.909 Epilepsy, unspecified, not intractable, without status epilepticus; J45.909 Unspecified asthma, uncomplicated
CPT/HCPCS: 99282; 99283